=== PATIENT | male | born 1950 | race Caucasian/White ===

== ENCOUNTER 2023-06-22 20:12 | Inpatient (IN) | payer MEDICARE, BC, SELFPAY ==
[2023-06-22] VITALS (9 sets, daily range): BP systolic 95–121; BP diastolic 66–90; PULSE 101–977; RESP 22–26; TEMP 36.1–36.8; O2SAT 89–94; BMI 29.2
--- NOTE | 2023-06-22 20:38 | EKG12_ITS ---
Test Reason : Blood Pressure : / mmHG Vent. Rate : 106 BPM Atrial Rate : 106 BPM P-R Int : 152 ms QRS Dur : 092 ms QT Int : 342 ms P-R-T Axes : 031 -14 033 degrees QTc Int : 454 ms Sinus tachycardia with occasional Premature ventricular complexes Otherwise normal ECG No previous ECGs available Confirmed by JENIFFER MURILLO, CHETAN ([id number]), editorial intern SRIRAM MORENO ([id number]) on 06/24/2023 6:47:12 AM Referred By: Confirmed By:CHETAN SWIFT MD
[2023-06-22] MEDS: Ondansetron 4 MG/2 ML Vial IV (20:49)
[2023-06-22] MEDS: 0.9% Normal Saline (1000mL) 1,000 ML 150 ML IV (20:49)
[2023-06-22 20:54] LABS: Absolute Neutrophil Count 25.4 X10^3/uL (2.0-7.7); Basophil# 0.09 X10^3/uL; Basophil% 0.3 % (0-1); Hematocrit 43.2 % (40-54); Hemoglobin 13.8 g/dL (13.0-16.5); Lymphocyte % 1.4 % (19-41); Mean Corp Hgb Conc 31.9 g/dL (32-36); Mean Corpuscular Hgb 28.6 pg (27.0-32.0); Mean Corpuscular Volume 89.4 fL (80-94); Mean Platelet Vol. 11.7 fl (6.2-12.0); Monocyte# 1.47 X10^3/uL; Monocyte% 5.3 % (0-10); NRBC Flagged by Analyzer 0 % (0-5); Neutrophil # 25.36 X10^3/uL (2.7-7.7); Neutrophil % 91.7 % (47-70); POSITIVE DIFFERENTIAL YES; Platelet Count 165 K/mm3 (150-450); RBC Distribution Width CV 15.4 % (11.6-14.6); RBC Distribution Width SD 49.7 fl (35.1-43.9); Red Blood Count 4.83 M/mm3 (4.6-6.2); White Blood Count 27.7 K/mm3 (4.4-11.0)
[2023-06-22 20:58] LABS: Differential Indicated SCAN CRITERIA MET
--- NOTE | 2023-06-22 21:05 | RAD_ITS ---
STUDY: X-RAY CHEST REASON FOR EXAM: Male, 73 years old. Cough, bilateral rales and expiratory wheezing and TECHNIQUE: PA and lateral views of the chest. COMPARISON: None. FINDINGS: Poor inspiration with some bibasilar atelectasis. There is no demonstrated pleural abnormality. There is moderate cardiac enlargement. Normal mediastinum and fanta. Normal visualized pulmonary arteries. There is atherosclerotic tortuosity of the aortic arch and descending thoracic aorta. Normal visualized thoracic spine. Normal visualized ribs, clavicles, and shoulders. There is no demonstrated abnormality of the visualized soft tissue structures of the upper abdomen. RAD/Chest PA and Lateral IMPRESSION: Poor inspiration with some bibasilar atelectasis. Cardiomegaly. Electronically Signed: Roldan Kent MD at 21:44 EDT ,
[2023-06-22 21:18] LABS: ALB/GLOB Ratio 0.7 RATIO (0.9-2.4); AST(SGOT) 16 U/L (15-37); Alanine Aminotransfer ALT/SGPT 11 U/L (16-61); Albumin, Serum 3.2 g/dL (3.2-5.0); Alkaline Phosphatase 90 U/L (45-117); Anion Gap 12 (5-15); BUN 32 mg/dL (7-18); BUN/Creat Ratio 13.5 RATIO (10-20); Calcium,Total 8.9 mg/dL (8.5-10.1); Chloride 106 mmol/L (98-107); Creatinine, Serum 2.37 mg/dL (0.70-1.30); EST Glomerular Filtration Rate 29 mL/min (>60); Est Glom Filt Rate - Afr Amer 35 mL/min (>60); Estimated Creatinine Clearance 28.91 ml/min; Globulin 4.7 g/dL (2.2-4.2); Glucose 224 mg/dL (74-106); Potassium 4.1 mmol/L (3.5-5.1); Protein, Total 7.9 g/dL (6.4-8.2); Sodium Level 138 mmol/L (136-145)
--- NOTE | 2023-06-22 21:26 | ED.RN ---
DIFFICULT TO OBTAIN INFORMATION FROM PT.
[2023-06-22 21:28] LABS: Anisocytosis RARE; Differential Comment SEE COMMENTS; Macrocytosis RARE; Ovalocyte RARE; Platelet Estimate ADEQUATE (ADEQ); Platelet Morphology LARGE; Red Cell Morphology N CHROM NORMAL (NORM C&C)
[2023-06-22 21:29] LABS: Tear Drop Cell RARE
[2023-06-22 21:34] LABS: Lactic Acid 4.6 mmol/L (0.4-1.9)
--- NOTE | 2023-06-22 21:40 | EX.ED.DYSGE1 ---
HPI History of Present Illness Chief Complaint: Nausea/Vomiting Detail of Chief Complaint: Nausea vomiting, cough, shortness of breath Informant: spouse/S.O. and family Onset/Context/Timing Onset: - (Patient been ill for the past couple of days.) Context: Sudden Onset Timing: Continuous Quality: Please see HPI narrative. Location: Uncertain Current Severity: Mild Maximum Severity: Severe Worsened by: Activity Relieved by: Nothing Associated Symptoms Associated Symptoms: Limited information because of altered mental status Narrative Narrative: Patient is a 73-year-old male. He has history of iron deficiency anemia, hypertension and hypothyroidism. He is somnolent. He is confused. He is tachycardic and tachypneic as well as hypoxic. He is not on oxygen at home. He has been vomiting according to son and . 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 He also has history of abdominal aortic aneurysm according to son. The aneurysms been repaired. He has had an indwelling Maddox for some time. Nurse informing that she does not feel comfortable removing it. Upon further inspection patient has a significant defect from the urethra to the base of the penis. And there are areas are closed off. The Maddox is presently coming out of the side of his penis on the right side. Prior similar symptoms: No Recent Illness/Hospitalization: No PFSH PFSH Medical History Colon cancer Home Medications amlodipine 10 mg tablet 10 mg PO DAILY 06/22/23 [History Last Taken Unknown] ferrous sulfate 325 mg (65 mg iron) tablet 325 mg PO DAILY 06/22/23 [History Last Taken Unknown] finasteride 5 mg tablet 5 mg PO DAILY 06/22/23 [History Last Taken Unknown] levothyroxine 175 mcg tablet 175 mcg PO 06/22/23 [History Last Taken Unknown] Allergy/AdvReac Type Severity Reaction Status Date / Time No Known Allergies Allergy Verified 06/22/23 20:14 Social History Smoking Status: Former smoker ROS ROS ED Review of Systems ROS Unobtainable: due to mental status Respiratory/Chest Respiratory/Chest: Reports cough and dyspnea Neurologic Neurologic: Reports weakness EXAM Physical Exam Const Vital Signs: 06/22/23 20:14 06/22/23 20:19 06/22/23 20:13 Temperature 98.2 F Temperature Source Temporal Pulse Rate 114 H 114 H Respiratory Rate 22 H 22 H Blood Pressure 95/66 120/68 Blood Pressure Mean 75 85 Pulse Ox 89 93 Oxygen Delivery Method Room Air Nasal Cannula Nasal Cannula Oxygen Flow Rate (L/min) 2 2 06/22/23 20:52 06/22/23 21:18 06/22/23 21:43 Temperature 97 F L 98 F Temperature Source Temporal Temporal Pulse Rate 107 H 105 H Respiratory Rate 23 H 26 H Blood Pressure 119/76 104/90 H Blood Pressure Mean 90 94 Pulse Ox 90 94 93 Oxygen Delivery Method Nasal Cannula Nasal Cannula Nasal Cannula Oxygen Flow Rate (L/min) 2 2 2 06/22/23 22:32 06/22/23 22:49 06/22/23 23:04 Temperature 97.3 F L 97.1 F L Temperature Source Temporal Temporal Pulse Rate 977 H 101 H 101 H Respiratory Rate 24 H 25 H 24 H Blood Pressure 109/70 121/68 H 117/68 Blood Pressure Mean 83 85 84 Pulse Ox 92 93 92 Oxygen Delivery Method Nasal Cannula Nasal Cannula Nasal Cannula Oxygen Flow Rate (L/min) 2 2 The vital signs at 2249 are inaccurate patient patient is not on a nonrebreather mask. He is on oxygen by nasal cannula. Positive well nourished and well developed Constitutional Narrative: Patient has minimal use of accessory muscles. He has what appears to be emesis on his gunn. General Appearance ED: well developed and pallor; Negative for cyanotic, diaphoretic or NAD HEENT Reports moist mucous membranes HEENT Narrative: Ears normal. Nares patent. Posterior pharynx is normal. Eyes PERRL and EOMs intact bilaterally General Eye ED: Negative for pale conjunctiva or scleral icterus Neck no lymphadenopathy, supple and no JVD Neck Narrative: Trachea is midline. There is no stridor. Chest Wall inspection of chest normal and palpation of chest normal Resp No normal respiratory effort and No clear to auscultation bilaterally Auscultation: rales bilateral lower and wheezes expiratory wheezes and throughout Cardio regular rhythm, S1 normal heart sound, S2 normal heart sound and no murmurs Rate: tachycardic GI normal to inspection, nondistended, normoactive bowel sounds and no masses; Negative for hepatosplenomegaly GI Narrative: Ileostomy tube noted. Abdomen is tympanitic. 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 Plan is not to remove this. This should be done by urologist and with possible cystoscopy. Back/Spine Back/Spine Narrative: Unable to determine Extremity General Extremety ED: Yes edema General Extremity: edema Neuro No oriented x3 and CN's II-XII intact bilaterally Sensorium / Orientation: Negative for alert Psych Negative for mental status grossly normal Skin no rashes or lesions noted and no wounds General Skin Exam: pallor; Negative for elasticity normal or jaundice Sepsis Attestation Sepsis Alert: Yes Sepsis Attestation: Agree w/Sepsis Date exam was performed: 06/22/23 Time exam was performed: 21:45 Sepsis Organ Dysfunction Criteria Present: Lactic Acid > 2 mmol/L and New/Unexplained change in mental status Fluid Resuscitation Fluid resuscitation indicated?: Yes Fluid Resuscitation ordered: 30 ml/kg fluid bolus ordered MDM MDM MDM Narrative Medical decision making narrative: With history of vomiting abnormal respiratory sounds wheezing and hypoxia concern patient aspirated. Will obtain chest x-ray to determine if there is an infiltrate. Patient has odor of urine. There is concern he has a urinary tract infection as well. Sepsis workup was undertaken. EKG to rule out any acute ischemic changes. Appropriate blood work to assess for endorgan dysfunction. Spoke to and son since patient is unable to give adequate history. History & Record Review Discussion w/independent historian: Family and Significant other Lab Data Attestation: I reviewed the patient's lab results. Lab results narrative: White count is 27.7 thousand. Patient does have a shift. There is no bandemia. H&H is normal. Competence of metabolic panel is remarkable for a CO2 of 20 with an anion gap of 12. BUN and creatinine are 32 and 2.37. Estimated GFR 29. Glucose is elevated 224. Transaminases are normal. Lactate is 4.6. Patient will require a 30 cc/kg bolus. Labs: Laboratory Results - last 24 hr 06/22/23 06/22/23 06/22/23 20:25 20:45 22:20 WBC 27.7 H RBC 4.83 Hgb 13.8 Hct 43.2 MCV 89.4 MCH 28.6 MCHC 31.9 L RDW Std Deviation 49.7 H RDW Coeff of [place] 15.4 H Plt Count 165 MPV 11.7 Immature Gran % (Auto) 1.300 H Neut % (Auto) 91.7 H Lymph % (Auto) 1.4 L [place] % (Auto) 5.3 Eos % (Auto) 0.0 Baso % (Auto) 0.3 Absolute Neuts (auto) 25.4 H Absolute Lymphs (auto) 0.40 L Nucleated RBC % 0 Differential Comment SEE COMMENTS Platelet Estimate ADEQUATE Plt Morphology Comment LARGE RBC Morphology N CHROM Anisocytosis RARE Macrocytosis RARE Tear Drop Cells RARE Ovalocytes RARE PT 15.3 H INR 1.2 APTT 30.0 Sodium 138 Potassium 4.1 Chloride 106 Carbon Dioxide 20.0 L Anion Gap 12 BUN 32 H Creatinine 2.37 H Estim Creat Clear Calc 28.91 Est GFR (MDRD) Af Amer 35 L Est GFR (MDRD) Non-Af 29 L BUN/Creatinine Ratio 13.5 Glucose 224 H Lactic Acid 4.6 H* Calcium 8.9 Total Bilirubin 0.60 AST 16 ALT 11 L Alkaline Phosphatase 90 Total Protein 7.9 Albumin 3.2 Globulin 4.7 H Albumin/Globulin Ratio 0.7 L Urine Color Yellow Urine Clarity Cloudy Urine pH 9.0 Ur Specific [place] 1.015 Urine Protein 30 H Urine Glucose (UA) Normal Urine Ketones Negative Urine Occult Blood 250 H Urine Nitrite Negative Urine Bilirubin Negative Urine Urobilinogen Normal Ur Leukocyte Esterase 500 H Urine RBC 10-25 SEEN Urine WBC 10-25 SEEN Ur Squamous Epith Cells 0 SEEN Triple Phos Crystals 1+ Amorphous Sediment 1+ Urine Bacteria 4+ Urine Mucus 0 SEEN ABG Data Attestation: I personally reviewed and interpreted this ABG as follows: Interpretation: ABG was obtained to assess for hypercapnia since he is somnolent. ABG results: pH 7.33, CO2 39.6, pO2 62.9, bicarb 20.9 with a base excess of -5. This reveals a mild metabolic acidosis with increased AA gradient. There is no evidence of hypercapnia. Suspect patient's altered mental status is due to infectious encephalopathy. Radiography Chest X-Ray - ED: 1 View (Limited study since it is portable slightly rotated and poor inspiratory volume. He does have evidence of what appears to be atelectasis. There is no obvious infiltrate or effusion. Heart size is borderline to slightly enlarged. Cardiac silhouette normal. [place] is unremarkable. Osseous structu) and Read by ED Physician Diagnostic Testing: Clinical Impression(s) from Imaging Studies Chest X-Ray 06/22/23 21:05 IMPRESSION: Poor inspiration with some bibasilar atelectasis. Cardiomegaly. Electronically Signed: Roldan Kent MD at 21:44 EDT Reading Location ID and State: [facility] / [place] Tel , Service support , Rhythm Strip Rhythm Strip: Sinus Tach Rate: 112 Ectopy: PVC(s) (Few to occasional) EKG Initial EKG: Attestation: I personally reviewed and interpreted this EKG as follows: Interpretation: Sinus Tachycardia (Rate is 106. There are premature ventricular beats noted. There were premature Fichter bleach noted on the monitor as well. [place] interval is 152 ms. Cures duration 92 ms. QT duration 242 ms. [place] is normal. There is no acute ischemic changes noted.) Management Discussion w/another healthcare provider: Hospitalist Treatment and Re-Evaluation :: Patient was treated with Zosyn which would cover aspiration as well as complicated nosocomial type urologic infection. Urine is consistent with infection. Will contact hospitalist for admission. Critical Care Time Critical Care Time: Yes Critical care time (excluding procedures): 30-74 minutes (34), Including time spent: (History, physical, documentation, discussion with and son, independent interpretation of laboratory results and treatment for sepsis), Discussing w/Patient &/or Family/Network Program Manager, Discussing w/Consultants (Hospitalist Dr. Lara) and Arranging Admission or Transfer Discharge Plan Triage Chief Complaint: Nausea/Vomiting ED Provider: Garfield Chacon Dx/Rx/DC Orders Clinical Impression: FIOR (acute kidney injury), Aspiration into respiratory tract, Severe sepsis with acute organ dysfunction, Complicated urinary tract infection, Acute hypoxemic respiratory failure, Encephalopathy due to infection, Acidosis, lactic Prescriptions: No Action levothyroxine 175 mcg tablet 175 mcg PO amlodipine 10 mg tablet 10 mg PO DAILY ferrous sulfate 325 mg (65 mg iron) tablet 325 mg PO DAILY finasteride 5 mg tablet 5 mg PO DAILY Primary Care Provider: Jenae Franco Referrals: Jenae Franco MD [Primary Care Provider] - Disposition Disposition: Acute Care Hospital [facility]
[2023-06-22 21:58] LABS: Mucous, Urine 0 SEEN /hpf (<or=2+); Squamous Epithelial Cells - UA 0 SEEN /hpf (0-5)
[2023-06-22] MEDS: 0.9% Normal Saline (1000mL) 1,000 ML 999 ML IV ×3 (21:58→22:37)
[2023-06-22 21:59] LABS: Color, Urine Yellow (Yellow); Glucose, Dipstick Normal (Normal); Ketone-Dipstick Negative (Negative); Leukocyte Esterase-Dipstick 500 /ul (Negative); Nitrite-Dipstick Negative (Negative); Occult Blood-Urine 250 /ul (Negative); Protein-Dipstick 30 mg/dl (Negative); Specific Gravity, Urine 1.015 (1.002-1.030); Urine Bilirubin Dipstick Negative (Negative); Urine Clarity Cloudy (Clear); Urine Urobilinogen Normal (Normal)
[2023-06-22 22:13] LABS: Amorphous Sediment 1+; Bacteria 4+ /hpf (None Seen); Red Blood Cells-Urine 10-25 SEEN /hpf (0-5); Triple Phosphate Crystals Ur 1+ /hpf (<or=1+); White Blood Cells 10-25 SEEN /hpf (0-5)
[2023-06-22] MEDS: Piperacil/Tazobactam 4.5 GM in 0.9% Normal Saline (100mL MB+) 100 ML IV (22:23)
[2023-06-22 22:49] LABS: International Normalized Ratio 1.2; Prothrombin Time (Protime)PT. 15.3 SECONDS (11.7-14.9)
[2023-06-22 23:32] LABS: Allen Test Positive; Base Excess -5 mmol/L (-2 to +2); Bicarbonate 20.9 mmol/L (22-26); Blood Gas Specimen Type ART; Mode Not entered; O2 Delivery Device Cannula; PO2 63 mmHG (75-100); SITE L Brach; SO2 90 % (95-99); Total Carbon Dioxide 22 mmol/L; pCO2 39.6 mmHg (35-45); pH 7.33 (7.35-7.45)
--- NOTE | 2023-06-22 23:47 | PCM.HP.STD ---
[facility] - General General Date of Admission: 06/23/23 Date of Service: 06/22/23 Chief Complaint: Nausea, Vomiting, SOB and AMS. HPI Narrative EMELIA NICOLE, is a 73 M with a past medical history of essential hypertension, hypothyroidism, overweight; with BMI of 29.3 this admission, history of former tobacco abuse, history of abdominal aortic aneurysm; s/p repair, BPH, iron deficiency anemia and history of colon cancer; status post ileostomy and radiation therapy with chronic indwelling Maddox with subsequent significant defect at the base of the Right side of his penis who presents to [facility] after his family noticed nausea, vomiting, shortness of breath and altered mental status. Mr. Nicole is not a fully reliable historian at this time as he is encephalopathic and lethargic so information was gathered from chart, medical staff and computer. According to the records his acute symptoms began approximately 2 to 3 days prior to admission with persistent vomiting and confusion. Details regarding fever, chills or diarrhea are not available at this time. Patient is still apparently a FULL CODE. In the ER he was noted to have a urinalysis grossly positive for acute cystitis; with microscopic hematuria in addition to significant lesion at the base of his penis due to chronic indwelling Maddox with corresponding severe leukocytosis of 27.7 and lactic acidosis of 4.6 mmol/L present on admission consistent with suspected sepsis complicated by clinical evidence of aspiration pneumonia with metabolic acidosis and acute hypoxic respiratory insufficiency compounded by LLE Cellulitis and laboratory evidence of suspected acute renal failure with serum creatinine of 2.37 mg/dL and BUN of 32 mg/dL present on admission (with no previous baseline labs available for comparison) with apparent Maddox trauma damaging the shaft of the penis and creating a wound at the Right side of the base of the penis all suspected to be combining to induce severe metabolic encephalopathy with ER physician asked to order a CT scan of the abdomen and pelvis to further assess for other acute pathologic changes in this patient with limited ability to communicate and he was then admitted to the ICU for treatment under the sepsis protocol for a stay that is expected to extend beyond 48 hours. [facility] Medical History Colon cancer Home Medications amlodipine 10 mg tablet 10 mg PO DAILY 06/22/23 [History Last Taken Unknown] ferrous sulfate 325 mg (65 mg iron) tablet 325 mg PO DAILY 06/22/23 [History Last Taken Unknown] finasteride 5 mg tablet 5 mg PO DAILY 06/22/23 [History Last Taken Unknown] levothyroxine 175 mcg tablet 175 mcg PO 06/22/23 [History Last Taken Unknown] Allergy/AdvReac Type Severity Reaction Status Date / Time No Known Allergies Allergy Verified 06/22/23 20:14 Social History Smoking Status: Former smoker ROS ROS Narrative A full review of systems was not possible due to this patient's severe encephalopathy and acute critical illness. Review of Systems ROS Unobtainable: due to encephalopathy Vital Signs Vital Signs Vital Signs: 06/22/23 20:14 06/22/23 20:19 06/22/23 20:13 Temperature 98.2 F Temperature Source Temporal Pulse Rate 114 H 114 H Respiratory Rate 22 H 22 H Blood Pressure 95/66 120/68 Blood Pressure Mean 75 85 Pulse Ox 89 93 Oxygen Delivery Method Room Air Nasal Cannula Nasal Cannula Oxygen Flow Rate (L/min) 2 2 06/22/23 20:52 06/22/23 21:18 06/22/23 21:43 Temperature 97 F L 98 F Temperature Source Temporal Temporal Pulse Rate 107 H 105 H Respiratory Rate 23 H 26 H Blood Pressure 119/76 104/90 H Blood Pressure Mean 90 94 Pulse Ox 90 94 93 Oxygen Delivery Method Nasal Cannula Nasal Cannula Nasal Cannula Oxygen Flow Rate (L/min) 2 2 2 06/22/23 22:32 06/22/23 22:49 06/22/23 23:04 Temperature 97.3 F L 97.1 F L Temperature Source Temporal Temporal Pulse Rate 977 H 101 H 101 H Respiratory Rate 24 H 25 H 24 H Blood Pressure 109/70 121/68 H 117/68 Blood Pressure Mean 83 85 84 Pulse Ox 92 93 92 Oxygen Delivery Method Nasal Cannula Nasal Cannula Nasal Cannula Oxygen Flow Rate (L/min) 2 2 Weight Weight: 187 lb 2.759 oz Body Mass Index (BMI) 29.2 Physical Exam Const Constitutional Narrative: Patient is lethargic but arousable on nonrebreather mask with minimal use of accessory muscles and residual emesis present on his gunn. Orientation / Consciousness: confused and lethargic HEENT normocephalic, head/scalp atraumatic, hearing grossly normal bilaterally and moist oral mucous membranes Eyes PERRL Neck no lymphadenopathy and supple Resp Resp Narrative: Diminished throughout with coarse rhonchi and wheezing due to suspected recent aspiration. Cardio regular rate and regular rhythm Cardio Narrative: Tachycardia noted. GI normal to inspection, nondistended, normoactive bowel sounds, soft to palpation, non-tender and non-distended GI Narrative: Ileostomy noted. Abdomen is tympanitic. Extremity Extremity Narrative: Left lower extremity has marked edema and erythema from the knee distally. Skin Skin Narrative: Patient's Maddox catheter appears to have dissected down the anterior surface of his penis all the way to the base. Patient also has evidence of tinea cruris plus left lower extremity has marked edema and erythema from the knee distally. Neuro CN's II-XII intact bilaterally, moves all extremities and no focal motor deficits Sensorium / Orientation: awake, alert, oriented to person and oriented to place Speech: speech normal Psych affect normal Results Medical Records Data Attestation: I reviewed the patient's medical records Lab / Micro Data Attestation: I reviewed the patient's lab results. 06/22/23 20:25 06/22/23 20:25 Labs: Laboratory Results - last 24 hr 06/22/23 20:25: WBC 27.7 H, RBC 4.83, Hgb 13.8, Hct 43.2, MCV 89.4, MCH 28.6, MCHC 31.9 L, RDW Std Deviation 49.7 H, RDW Coeff of Yanira 15.4 H, Plt Count 165, MPV 11.7, Immature Gran % (Auto) 1.300 H, Neut % (Auto) 91.7 H, Lymph % (Auto) 1.4 L, Becker % (Auto) 5.3, Eos % (Auto) 0.0, Baso % (Auto) 0.3, Absolute Neuts (auto) 25.4 H, Absolute Lymphs (auto) 0.40 L, Nucleated RBC % 0, Differential Comment SEE COMMENTS, Platelet Estimate ADEQUATE, Plt Morphology Comment LARGE, RBC Morphology N CHROM, Anisocytosis RARE, Macrocytosis RARE, Tear Drop Cells RARE, Ovalocytes RARE, Sodium 138, Potassium 4.1, Chloride 106, Carbon Dioxide 20.0 L, Anion Gap 12, BUN 32 H, Creatinine 2.37 H, Estim Creat Clear Calc 28.91, Est GFR (MDRD) Af Amer 35 L, Est GFR (MDRD) Non-Af 29 L, BUN/Creatinine Ratio 13.5, Glucose 224 H, Calcium 8.9, Total Bilirubin 0.60, AST 16, ALT 11 L, Alkaline Phosphatase 90, Total Protein 7.9, Albumin 3.2, Globulin 4.7 H, Albumin/Globulin Ratio 0.7 L, Urine Color Yellow, Urine Clarity Cloudy, Urine pH 9.0, Ur Specific Welda 1.015, Urine Protein 30 H, Urine Glucose (UA) Normal, Urine Ketones Negative, Urine Occult Blood 250 H, Urine Nitrite Negative, Urine Bilirubin Negative, Urine Urobilinogen Normal, Ur Leukocyte Esterase 500 H, Urine RBC 10-25 SEEN, Urine WBC 10-25 SEEN, Ur Squamous Epith Cells 0 SEEN, Triple Phos Crystals 1+, Amorphous Sediment 1+, Urine Bacteria 4+, Urine Mucus 0 SEEN 06/22/23 20:45: Lactic Acid 4.6 H* 06/22/23 22:20: PT 15.3 H, INR 1.2, APTT 30.0 Micro: Microbiology 06/22/23 20:55 Mucosa - Nasopharyngeal SARS-CoV-2, Influenza & RSV (PCR) - Final ABG Data ABG results: ABG 06/22/23 23:28 Specimen Type ART Sample Site L Brach pH 7.33 L Bicarbonate Actual 20.9 L Total CO2 22 Base Excess -5 L O2 Saturation 90 L O2 % 2.0 ABG pCO2 39.6 ABG pO2 63 L Mo Test Positive O2 Delivery Device Cannula Vent Mode Not entered Rhythm Strip Rhythm Strip: Sinus Tach Rate: 112 Ectopy: PVC(s) (Few to occasional) Imaging Radiology Impression Chest X-Ray 06/22/23 21:05 IMPRESSION: Poor inspiration with some bibasilar atelectasis. Cardiomegaly. Electronically Signed: Roldan Kent MD at 21:44 EDT , [facility] Imaging Services [address] [place] [id number] Abdomen/Pelvis without Cont MR#: [id number] Acct: [id number] Name: ALEXEMELIA Rep #: [id number] : 1950 M 73 From: [place] Jalloh MD PCP: Jenae Franco MD Status: ADM IN Study: Abdomen/Pelvis without Cont Date of Exam: 06/23/23 Exam# [id number] Ordering Dr: Garfield Chacon MD EXAM: CT Abdomen And Pelvis W/O Contrast Injection HISTORY: Sepsis, abdominal pain TECHNIQUE: Routine protocol CT abdomen and pelvis. IV Contrast: None.. Oral contrast: None. RADIATION DOSAGE (If Supplied By Facility): CTDIvol = ( 10.30 ) mGy, DLP = ( 932.75 ) mGycm Individualized dose optimization techniques were used for this CT. COMPARISON: None. LIMITATIONS: None. FINDINGS: LOWER CHEST: Patchy groundglass opacities in the left lower lobe. Dependent atelectasis in the right lower lobe. Minimal bilateral pleural effusions. Coronary artery calcifications. LIVER: Grossly unremarkable. GALLBLADDER AND BILIARY TREE: Multiple gallstones layering in the gallbladder, with a separate stone in the gallbladder neck. No definite inflammatory changes. PANCREAS: Grossly unremarkable. SPLEEN: Relatively small size with lobular contour and peripheral calcifications. ADRENAL GLANDS: Grossly unremarkable. KIDNEYS AND URETERS: Right kidney with moderate hydronephrosis and dilated ureter to the bladder. No definite calculi identified. Left kidney atrophic without hydronephrosis. PERITONEUM: No free air. No free fluid. BOWEL: Colostomy left midabdomen. Mildly dilated small bowel. Distal small bowel is decreased caliber. Transition is not clearly identified but may be in the right lower abdomen. There is soft tissue thickening in the region of the rectum with presacral thickening presumed postsurgical changes. APPENDIX: Not identified. VESSELS: Postsurgical changes with aortobiiliac graft. REPRODUCTIVE ORGANS: Grossly unremarkable URINARY BLADDER: Moderately distended. Maddox catheter in place. Mild bladder wall thickening. Bladder diverticulum posteriorly on the left. ABDOMINAL WALL: Subcutaneous edema and body wall especially along the left lower abdominal wall/flank area more marked diffuse edema left lower extremity extending to the proximal thigh with associated skin thickening. No definite localized collection. No air in the soft tissues. Prominent inguinal lymph nodes bilaterally. Also surgical clips in the inguinal regions. BONES: No acute abnormalities. Bilateral pars defects at L5 with grade 1 spondylolisthesis L5-S1 and degenerative changes CT/Abdomen/Pelvis without Cont IMPRESSION: 1. Dilated small bowel. Pattern suggests at least partial distal small bowel obstruction, versus enteritis or ileus. 2. Cholelithiasis including a stone in the gallbladder neck. Ultrasound correlation may be helpful if clinically indicated. 3. Moderate right hydroureteronephrosis with no definite obstructing ureteral calculus identified. 4. Urinary bladder wall thickening may be consistent with acute cystitis. Bladder distended despite presence of the Maddox catheter. Atrophic left kidney without hydronephrosis. 5. Subcutaneous edema left abdominal wall/flank with more diffuse edema extending into the left lower extremity. Question cellulitis. 6. Left lower lobe consolidation suspected pneumonia. Minimal bilateral pleural effusions. 7. Aortobiiliac graft. 8. Soft tissue thickening presacral presumed postsurgical. Electronically Signed: [place] Jalloh MD at 2:27 EDT , CC: Jenae Franco MD; Dr. Garfield Chacon MD ~ [place]: Signed Assessment & Plan Assessment/Plan (1) Severe sepsis with acute organ dysfunction: (2) Complicated urinary tract infection: (3) Aspiration into respiratory tract: QUALIFIERS: Encounter type: initial encounter Qualified Code(s): T17.908A - Unspecified foreign body in respiratory tract, part unspecified causing other injury, initial encounter (4) Acute hypoxemic respiratory failure: (5) Acidosis, lactic: (6) FIOR (acute kidney injury): (7) Encephalopathy due to infection: (8) Cholelithiasis: QUALIFIERS: Biliary obstruction: without biliary obstruction Cholecystitis presence: without cholecystitis Cholelithiasis location: gallbladder Qualified Code(s): K80.20 - Calculus of gallbladder without cholecystitis without obstruction (9) Enteritis: PLAN: Plan 1. Sepsis with urinalysis grossly positive for acute cystitis; with microscopic hematuria in addition to significant lesion as his Maddox has apparently dissected from the urinary meatus to the base of his penis due to chronic indwelling Maddox that is poorly managed with corresponding severe leukocytosis of 27.7 and lactic acidosis of 4.6 mmol/L present on admission with CT also positive for evidence of cholelithiasis - Admit to ICU for treatment under the sepsis protocol and placed on contact precautions. Continue IV Zosyn and add IV Zyvox to cover MRSA pathogens with patient's skin lesions at the base of his penis and await culture and sensitivity data. Checked CT scan of the abdomen and pelvis to evaluate for possible urinary obstruction and/or abscess formation and now we will check gallbladder ultrasound as per radiologist's recommendation. Second lactate has dropped to 2.7 mmol/L after initial round of treatment. Wind Site Manager will be consulted to see this patient on-rounds in the AM with help appreciated in advance. Finally, we will consult the urologist on-call to evaluate this patient in the a.m. regarding his chronic wound due to apparent Maddox dissecting from the urinary meatus down the inferior surface of the penis to the base for further recommendations with help appreciated in advance. 2. Aspiration pneumonia with metabolic acidosis and acute hypoxic respiratory insufficiency with CT suggestive of enteritis, ileus or possible PSBO complicating #1 - Resume broad-spectrum antibiotics to cover nosocomial pathogens outlined #1. Continue supplemental oxygen and recheck ABG to evaluate for possible improvement. Check KUB in the AM to evaluate for possible worsening PSBO. 3. Laboratory evidence of suspected acute renal failure with serum creatinine of 2.37 mg/dL and BUN of 32 mg/dL present on admission (with no previous baseline labs available for comparison) compounding #1 & #2 in the setting of known BPH - Give vigorous volume resuscitation and recheck BMP in the a.m. to assess response to above treatment. 4. Significant left lower extremity erythema and edema suspicious for cellulitis with possible DVT adding to the pathology of #1 - #3 - Check D-dimer and left lower extremity Doppler to confirm suspicion plus start empiric IV Heparin via DVT protocol. Patient on broad-spectrum antibiotics for #1 and #2. 5. Severe metabolic encephalopathy arising from #1 to #4 - Continue supportive care and monitor for potential improvement. Minimize MICROSTRATEGY ARCHITECT DEVELOPER-active medications. Check TSH, B12, folate and urine drug screen to evaluate for potential reversible causes of confusion. 6. History of colon cancer; status post ileostomy and radiation therapy with chronic indwelling Maddox with subsequent significant defect at the base of the Right side of his penis present on admission - Noted. 7. History of abdominal aortic aneurysm; s/p repair - Noted. CT pending. 8. Essential hypertension - Hold scheduled antihypertensives in light of multiple infections outlined above. 9. Hypothyroidism - Continue Synthroid IV and check TSH this admission. 10. Overweight; with BMI of 29.3 this admission - Weight loss will be recommended once patient's mental status improves. 11. History of former tobacco abuse - Noted. 12. Iron deficiency anemia - Stable. 13. DVT prophylaxis - Patient started on IV Heparin or #4. Total time: Approximately 95 minutes. Sepsis Attestation Sepsis Alert: Yes Sepsis Attestation: Agree w/Sepsis Date exam was performed: 06/23/23 Time exam was performed: 00:15 Possible Source of Sepsis: Pulmonary, Genitourinary and Skin/soft tissue Sepsis Organ Dysfunction Criteria Present: Creatinine > 2.0 mg/dL, Lactic Acid > 2 mmol/L and New/Unexplained change in mental status Fluid Resuscitation Fluid resuscitation indicated?: Yes Fluid Resuscitation ordered: 30 ml/kg fluid bolus ordered Amount of fluid ordered: 3 Sepsis Note Date exam was performed: 06/23/23 Time exam was performed: 04:15 Sepsis Attestation: Sepsis re-evaluation was performed Response to fluids: Fluid responsive hypotension Charges/Coding Visit Charges Inpatient E&M: 23664 Init Hosp L3
[2023-06-22 23:53] LABS: Reflex Lactate? Y
[2023-06-23] VITALS (27 sets, daily range): BP systolic 81–153; BP diastolic 49–83; PULSE 75–107; RESP 16–29; TEMP 36.3–37.2; O2SAT 88–97; BMI 27.6
[2023-06-23 01:18] LABS: Lactic Acid 3.4 mmol/L (0.4-1.9)
[2023-06-23] MEDS: Linezolid 600 MG 600 MG/300 ML BAG 200 MG IV (01:20)
[2023-06-23 02:36] LABS: Vitamin B12 381 pg/mL (211-911)
[2023-06-23 02:42] LABS: Amphetamine Urine VISTA NEGATIVE (<1000 ng/mL); Barbiturate Urine VISTA NEGATIVE (< 200 ng/mL); Benzodiazepine Urine VISTA NEGATIVE (< 200 ng/mL); Cocaine Urine VISTA NEGATIVE (< 300 ng/mL); Ecstacy Urine VISTA NEGATIVE (< 500 ng/mL); Methadone Urine VISTA NEGATIVE (< 300 ng/mL); PCP Urine VISTA NEGATIVE (< 25 ng/mL); THC Urine VISTA NEGATIVE (< 50 ng/mL); Vista UDS pH Range 7
[2023-06-23 02:45] LABS: Thyroid Stim Hormone (TSH) 7.75 uIU/mL (0.358-3.74); Troponin-I HS 18 pg/mL (3.0-78.0)
[2023-06-23 03:01] LABS: Lactic Acid 2.7 mmol/L (0.4-1.9)
[2023-06-23 03:12] LABS: Reflex Lactate? N
[2023-06-23 03:13] LABS: Reflex Lactate? N
--- NOTE | 2023-06-23 03:42 | US_ITS ---
STUDY: ABDOMINAL ULTRASOUND - RIGHT UPPER QUADRANT REASON FOR VISIT: Male, 73 years old Cholelithiasis evident on CT with rad rec U/S. TECHNIQUE: Ultrasound evaluation of the right upper quadrant was performed with real-time and static soares-scale imaging. TECHNICAL QUALITY: Adequate. COMPARISON: None. FINDINGS: Liver: The liver is enlarged and measures 21.2 cm. There is normal echogenicity of the liver. The bile ducts are within normal limits. There is hepatic color flow. The direction of portal flow is hepatopetal. There is no demonstrated mass lesion. Gallbladder: Normal distended gallbladder. The gallbladder wall measures 2.6 mm. There is a negative sonographic Felipe''s sign. There is no pericholecystic fluid. There are multiple echogenic structures within the gallbladder, consistent with multiple gallstones. Common Bile Duct (C.B.D.): The common bile duct measures 4.4 mm. Pancreas: There is nonvisualization of the pancreas. Due to overlying bowel gas Right Kidney: Normal size of the right kidney. The right kidney measures 12.8 cm x 6.4 cm x 5.9 cm. Normal renal cortex. The right cortex measures 1.4 cm. There is no demonstrated renal mass or cyst. There is mild hydronephrosis of the right kidney. US/Gallbladder IMPRESSION: Hepatomegaly. Multiple gallstones. Mild right hydronephrosis. Electronically Signed: Nathaniel Araya MD at 15:44 EDT ,
[2023-06-23 05:22] LABS: D-Dimer Quantitative (DVT/PE) 7.81 FEU/ug/m (0.27-0.49)
[2023-06-23] MEDS: 0.9% Normal Saline (1000mL) 1,000 ML 150 ML IV (05:45)
[2023-06-23] MEDS: Piperacil/Tazobactam 3.375 GM in 0.9% Normal Saline (50mL MB+) 50 ML IV ×3 (05:47→20:11)
[2023-06-23] MEDS: Menthol/Lanolin/Calamine/Znox 113 GM Tube 1 APPLIC TOPICAL ×2 (05:48→20:11)
[2023-06-23] MEDS: Nystatin Powder 15gm Bottle 1 APPLIC TOPICAL ×2 (05:49→20:11)
[2023-06-23 05:53] LABS: International Normalized Ratio 1.2; Partial Thromboplast Time 37.2 Seconds (24.1-36.2); Prothrombin Time (Protime)PT. 15.3 SECONDS (11.7-14.9)
--- NOTE | 2023-06-23 05:55 | RAD_ITS ---
INDICATION: Aspiration pneumonia EXAMINATION/TECHNIQUE: X-RAY - XR Chest 1 View AP portable. 4:13 AM COMPARISON: 06/22/2023 FINDINGS: LINES/DEVICES: None. LUNGS: Patchy opacity in the left lung base similar to increased compared to prior. Mildly elevated left hemidiaphragm unchanged. No pneumothorax. MEDIASTINUM: Aorta is atherosclerotic and tortuous. CARDIAC SILHOUETTE: Not enlarged. BONES AND SOFT TISSUES: No acute abnormalities. RAD/Chest 1 View (Portable) IMPRESSION: Increased left basilar atelectasis or infiltrate. Aspiration pneumonia not excluded. Electronically Signed: [place] Jalloh MD at 5:18 EDT ,
--- NOTE | 2023-06-23 05:55 | RAD_ITS ---
INDICATION: Suspected enteritis vs PSBO on CT. EXAMINATION/TECHNIQUE: X-RAY - XR Abdomen 1 View portable. 4:19 AM COMPARISON: CT abdomen and pelvis earlier same day FINDINGS: Supine view. Moderately dilated small bowel. There is stool and air in the colon. Sensitivity for free air limited on supine view. Surgical clips in the midabdomen. Lung bases are not well assessed. RAD/Abdomen Single View (Portable) IMPRESSION: Dilated small bowel not significantly changed compared to earlier CT. Electronically Signed: France Jalloh MD at 5:24 EDT ,
[2023-06-23 06:08] LABS: T4 Free Direct 0.81 ng/dL (0.76-1.46)
[2023-06-23] MEDS: HEPARIN/D5w 25,000 UNITS 25,000 UNITS/250 ML IV.SOLN. 11 UNITS CONT INF (06:15)
[2023-06-23 06:20] LABS: Absolute Lymphocyte Count 0.36 X10^3/uL (0.83-4.51); Absolute Neutrophil Count 16.2 X10^3/uL (2.0-7.7); Basophil# 0.04 X10^3/uL; Basophil% 0.2 % (0-1); Hematocrit 33.7 % (40-54); Lymphocyte # 0.36 X10^3/ul (0.83-4.51); Lymphocyte % 2.1 % (19-41); Mean Corp Hgb Conc 29.7 g/dL (32-36); Mean Corpuscular Hgb 28.7 pg (27.0-32.0); Mean Corpuscular Volume 96.6 fL (80-94); Mean Platelet Vol. 11.6 fl (6.2-12.0); Monocyte% 1.8 % (0-10); NRBC Flagged by Analyzer 0 % (0-5); Neutrophil # 16.24 X10^3/uL (2.7-7.7); Neutrophil % 95.2 % (47-70); POSITIVE DIFFERENTIAL YES; Platelet Count 125 K/mm3 (150-450); RBC Distribution Width SD 56.4 fl (35.1-43.9); Red Blood Count 3.49 M/mm3 (4.6-6.2); White Blood Count 17.1 K/mm3 (4.4-11.0)
[2023-06-23 06:51] LABS: ALB/GLOB Ratio 0.7 RATIO (0.9-2.4); AST(SGOT) 12 U/L (15-37); Alanine Aminotransfer ALT/SGPT 8 U/L (16-61); Alkaline Phosphatase 52 U/L (45-117); Anion Gap 13 (5-15); BUN 25 mg/dL (7-18); BUN/Creat Ratio 11.8 RATIO (10-20); Calcium,Total 6.2 mg/dL (8.5-10.1); Chloride 103 mmol/L (98-107); Creatinine, Serum 2.11 mg/dL (0.70-1.30); EST Glomerular Filtration Rate 33 mL/min (>60); Est Glom Filt Rate - Afr Amer 40 mL/min (>60); Estimated Creatinine Clearance 31.64 ml/min; Glucose 604 mg/dL (74-106); Magnesium 1.3 mg/dL (1.6-2.6); Potassium 3.3 mmol/L (3.5-5.1); Sodium Level 132 mmol/L (136-145)
[2023-06-23 07:12] LABS: Bedside Glucose 208 mg/dL (74-106)
--- NOTE | 2023-06-23 07:54 | EX.PCM.CONCC ---
Assessment & Plan Assessment/Plan (1) Severe sepsis with acute organ dysfunction: (2) Complicated urinary tract infection: (3) Encephalopathy due to infection: PLAN: Plan RECOMMENDATIONS: 1. Continue empiric antibiotics pending cultures 2. Await urology recommendations 3. Monitor for ongoing emesis 4. Wean oxygen as tolerated IMPRESSIONS: 1. Sepsis secondary to UTI Patient was significant penile defect and findings suggestive of UTI. Patient would be at high risk for acute cystitis given urologic defects. Patient is currently on empiric antibiotics. Will have to monitor patient to see if he requires pressor agents. Lower clinical suspicion of acute aspiration as an etiology, but this could be possible. CT of the abdomen does show evidence of enteritis, but CT scan is more suggestive of atelectasis. 2. Acute left lower extremity DVT Patient should be placed on a heparin drip for now. Hold off on Lovenox given renal dysfunction and possible need for urologic intervention. Patient may have an element of PE leading to current hypoxia and atelectasis. 3. Possible acute kidney injury Patient presented with an elevated creatinine of 2.37, but BUN is suggestive of intrinsic dysfunction. Patient has received significant volume resuscitation. Will continue to monitor. Obtain old records for comparison. 4. History of colon cancer/AAA/hypothyroidism/debility Complicates care, management and recovery. Patient will be seen by PT/OT to work on ambulation and strength training. Patient may need dietitian advice for weight loss once mental status improves. HPI Consult Data Date of Consult: 06/23/23 HPI Narrative HPI Narrative: EMELIA JOHNSON is a 73 M, with past medical history listed below, who presents to [facility] on 06/22/2023 secondary to altered mental status, tachycardia and tachypnea. Patient reportedly had been vomiting. Patient reportedly has an indwelling Maddox chronically secondary to radiation therapy for colon cancer. In the ER, patient was afebrile, but tachycardic at 114 bpm with a lower blood pressure of 95/66. Patient was initially 89% on room air, but responded to 2 L nasal cannula. Lab work shows a white blood cell count of 27.7, hemoglobin of 13.8 and platelets of 165. Coagulation studies were within normal limits. Chemistry showed a bicarbonate of 20, creatinine of 2.37 and lactate of 4.6. Patient did have a UA suggestive of a urinary tract infection. Blood gas showed a mild acute metabolic acidosis with increased AA gradient. Chest x-ray showed poor inspiration with bilateral atelectasis, left greater than right on my interpretation. Patient was given sepsis fluids, antibiotics and admitted to the intensive care unit. Since being in the intensive care unit, patient has had his Maddox changed. Patient did have significant findings of poor Maddox care per nursing. Patient also had his gunn shaved at his request. Patient did not require any pressors. On my evaluation, patient was able to be woken up, but is not a very good historian. Patient had reported that he has not felt well for a week. Patient has reported right lower extremity swelling for over a week and states that he believes he had an ultrasound earlier in the week that was negative. Unable to obtain review of systems. [facility] Medical History Colon cancer Home Medications amlodipine 10 mg tablet 10 mg PO DAILY 06/22/23 [History Last Taken Unknown] ferrous sulfate 325 mg (65 mg iron) tablet 325 mg PO DAILY 06/22/23 [History Last Taken Unknown] finasteride 5 mg tablet 5 mg PO DAILY 06/22/23 [History Last Taken Unknown] levothyroxine 175 mcg tablet 175 mcg PO 06/22/23 [History Last Taken Unknown] Allergy/AdvReac Type Severity Reaction Status Date / Time No Known Allergies Allergy Verified 06/22/23 20:14 Social History Smoking Status: Former smoker ROS ROS Narrative Unable to obtain secondary to be a poor historian Review of Systems ROS Unobtainable: due to mental status Physical Exam Const Constitutional Narrative: RASS -2 and quickly goes to sleep. Orientation / Consciousness: confused and lethargic HEENT normocephalic and head/scalp atraumatic HEENT Narrative: Dry mucous membranes Eyes PERRL Neck no lymphadenopathy and supple Resp Auscultation: rales left base and diminished lung sounds Cardio regular rate, regular rhythm, S1 normal heart sound, S2 normal heart sound, no murmurs, no rub and no gallops GI normal to inspection, nondistended, normoactive bowel sounds, soft to palpation and non-tender GI Narrative: Ileostomy noted. 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 06/23/23 01:30 06/23/23 06:59 Labs: Laboratory Results - last 24 hr 06/22/23 00:27: Lactic Acid 3.4 H* 06/22/23 20:25: WBC 27.7 H, RBC 4.83, Hgb 13.8, Hct 43.2, MCV 89.4, MCH 28.6, MCHC 31.9 L, RDW Std Deviation 49.7 H, RDW Coeff of Yanira 15.4 H, Plt Count 165, MPV 11.7, Immature Gran % (Auto) 1.300 H, Neut % (Auto) 91.7 H, Lymph % (Auto) 1.4 L, Tucker % (Auto) 5.3, Eos % (Auto) 0.0, Baso % (Auto) 0.3, Absolute Neuts (auto) 25.4 H, Absolute Lymphs (auto) 0.40 L, Nucleated RBC % 0, Differential Comment SEE COMMENTS, Platelet Estimate ADEQUATE, Plt Morphology Comment LARGE, RBC Morphology N CHROM, Anisocytosis RARE, Macrocytosis RARE, Tear Drop Cells RARE, Ovalocytes RARE, Sodium 138, Potassium 4.1, Chloride 106, Carbon Dioxide 20.0 L, Anion Gap 12, BUN 32 H, Creatinine 2.37 H, Estim Creat Clear Calc 28.91, Est GFR (MDRD) Af Amer 35 L, Est GFR (MDRD) Non-Af 29 L, BUN/Creatinine Ratio 13.5, Glucose 224 H, Calcium 8.9, Total Bilirubin 0.60, AST 16, ALT 11 L, Alkaline Phosphatase 90, Total Protein 7.9, Albumin 3.2, Globulin 4.7 H, Albumin/Globulin Ratio 0.7 L, Urine Color Yellow, Urine Clarity Cloudy, Urine pH 9.0, Ur Specific Lindsay 1.015, Urine Protein 30 H, Urine Glucose (UA) Normal, Urine Ketones Negative, Urine Occult Blood 250 H, Urine Nitrite Negative, Urine Bilirubin Negative, Urine Urobilinogen Normal, Ur Leukocyte Esterase 500 H, Urine RBC 10-25 SEEN, Urine WBC 10-25 SEEN, Ur Squamous Epith Cells 0 SEEN, Triple Phos Crystals 1+, Amorphous Sediment 1+, Urine Bacteria 4+, Urine Mucus 0 SEEN 06/22/23 20:45: Lactic Acid 4.6 H* 06/22/23 22:20: PT 15.3 H, INR 1.2, APTT 30.0 06/23/23 01:30: WBC 17.1 H, RBC 3.49 L, Hgb 10.0 L, Hct 33.7 L, MCV 96.6 H D, MCH 28.7, MCHC 29.7 L D, RDW Std Deviation 56.4 H, RDW Coeff of Yanira 16.0 H, Plt Count 125 L, MPV 11.6, Immature Gran % (Auto) 0.700, Neut % (Auto) 95.2 H, Lymph % (Auto) 2.1 L, Tucker % (Auto) 1.8, Eos % (Auto) 0.0, Baso % (Auto) 0.2, Absolute Neuts (auto) 16.2 H, Absolute Lymphs (auto) 0.36 L, Nucleated RBC % 0, Sodium 132 L, Potassium 3.3 L, Chloride 103, Carbon Dioxide 16.0 L, Anion Gap 13, BUN 25 H, Creatinine 2.11 H, Estim Creat Clear Calc 31.64, Est GFR (MDRD) Af Amer 40 L, Est GFR (MDRD) Non-Af 33 L, BUN/Creatinine Ratio 11.8, Glucose 604 H*, Lactic Acid 2.7 H*, Calcium 6.2 L*, Phosphorus 2.0 L, Magnesium 1.3 L, Total Bilirubin 0.60, AST 12 L, ALT 8 L, Alkaline Phosphatase 52, Troponin I High Sens 18, Total Protein 5.0 L, Albumin 2.0 L, Globulin 3.0, Albumin/Globulin Ratio 0.7 L, Vitamin B12 381, Folate 8.40, TSH 7.75 H 06/23/23 02:05: Urine Opiates Screen NEGATIVE, Urine Methadone Screen NEGATIVE, Ur Barbiturates Screen NEGATIVE, Ur Phencyclidine Scrn NEGATIVE, Ur Amphetamines Screen NEGATIVE, MDMA (Ecstasy) Screen NEGATIVE, U Benzodiazepines Scrn NEGATIVE, Urine Cocaine Screen NEGATIVE, U Cannabinoids Screen NEGATIVE, Ur Drug Screen Comment 06/23/23 04:16: D-Dimer Quant (PE/DVT) 7.81 H*, Free T4 0.81 06/23/23 05:43: PT 15.3 H, INR 1.2, APTT 37.2 H 06/23/23 06:54: POC Glucose 208 H Micro: Microbiology 06/23/23 02:05 Nasal Secretion MRSA (PCR) - Final 06/23/23 02:05 Urine Catheter - Maddox Legionella Antigen - Final 06/23/23 02:05 Urine Catheter - Maddox Streptococcus pneumoniae Antigen (M - Final 06/22/23 20:55 Mucosa - Nasopharyngeal SARS-CoV-2, Influenza & RSV (PCR) - Final ABG Data ABG results: ABG 06/22/23 23:28 Specimen Type ART Sample Site L Brach pH 7.33 L Bicarbonate Actual 20.9 L Total CO2 22 Base Excess -5 L O2 Saturation 90 L O2 % 2.0 ABG pCO2 39.6 ABG pO2 63 L Mo Test Positive O2 Delivery Device Cannula Vent Mode Not entered Attestation: I personally reviewed and interpreted this ABG as follows: (See HPI) Rhythm Strip Rhythm Strip: Sinus Tach Rate: 112 Ectopy: PVC(s) (Few to occasional) Imaging Radiology Impression Chest X-Ray 06/22/23 21:05 IMPRESSION: Poor inspiration with some bibasilar atelectasis. Cardiomegaly. Electronically Signed: Roldan Kent MD at 21:44 EDT , Chest X-Ray 06/23/23 05:55 IMPRESSION: Increased left basilar atelectasis or infiltrate. Aspiration pneumonia not excluded. Electronically Signed: France Jalloh MD at 5:18 EDT , KUB X-Ray 06/23/23 05:55 IMPRESSION: Dilated small bowel not significantly changed compared to earlier CT. Electronically Signed: France Jalloh MD at 5:24 EDT , Abdomen/Pelvis CT 06/23/23 23:54 IMPRESSION: 1. Dilated small bowel. Pattern suggests at least partial distal small bowel obstruction, versus enteritis or ileus. 2. Cholelithiasis including a stone in the gallbladder neck. Ultrasound correlation may be helpful if clinically indicated. 3. Moderate right hydroureteronephrosis with no definite obstructing ureteral calculus identified. 4. Urinary bladder wall thickening may be consistent with acute cystitis. Bladder distended despite presence of the Maddox catheter. Atrophic left kidney without hydronephrosis. 5. Subcutaneous edema left abdominal wall/flank with more diffuse edema extending into the left lower extremity. Question cellulitis. 6. Left lower lobe consolidation suspected pneumonia. Minimal bilateral pleural effusions. 7. Aortobiiliac graft. 8. Soft tissue thickening presacral presumed postsurgical. Electronically Signed: France Jalloh MD at 2:27 EDT , Charges/Coding Visit Charges Inpatient E&M: 33322 Init Hosp L3
--- NOTE | 2023-06-23 08:10 | VDLE_ITS ---
Reason For Study: Elevated D-dimer RIGHT LEFT GSV is normal. GSV is normal. CFV is compressible, spontaneous, phasic, Acute deep vein thrombosis is noted in the competent and demonstrates normal CFV, FV and SoleusV. It is dilated and augmentation. NONCOMPRESSIBLE. FV is compressible, spontaneous, phasic, POP V is compressible, spontaneous, phasic, competent and demonstrates normal competent and demonstrates normal augmentation. augmentation. POP V is compressible, spontaneous, phasic, T/P Trunk is compressible. competent and demonstrates normal PTV is compressible. augmentation. LT PerV is compressible. T/P Trunk is compressible. PTV is compressible. RT PerV is compressible. Procedure This is a venous duplex using B-mode, color flow and spectral Doppler. Exam performed portable in ICU/CCU. The study was technically difficult. A preliminary report was called and/or faxed to Dr. De La O. VL/Venous Duplex US - Gary Extrem Interpretation Summary Acute deep venous thrombosis left common femoral, femoral, and soleus veins. Patent, compressible bilateral great saphenous veins. Ordering Physician: Kulwinder De La O Referring Physician: Jenae Franco Performed By: Denice Hudson RVT
[2023-06-23 08:49] LABS: ALB/GLOB Ratio 0.7 RATIO (0.9-2.4); AST(SGOT) 14 U/L (15-37); Alanine Aminotransfer ALT/SGPT 9 U/L (16-61); Albumin, Serum 2.6 g/dL (3.2-5.0); Alkaline Phosphatase 63 U/L (45-117); Anion Gap 10 (5-15); BUN 33 mg/dL (7-18); BUN/Creat Ratio 13.4 RATIO (10-20); Calcium,Total 7.9 mg/dL (8.5-10.1); Chloride 110 mmol/L (98-107); Creatinine, Serum 2.47 mg/dL (0.70-1.30); EST Glomerular Filtration Rate 27 mL/min (>60); Est Glom Filt Rate - Afr Amer 33 mL/min (>60); Estimated Creatinine Clearance 27.03 ml/min; Globulin 3.9 g/dL (2.2-4.2); Glucose 226 mg/dL (74-106); Potassium 4.1 mmol/L (3.5-5.1); Protein, Total 6.5 g/dL (6.4-8.2); Sodium Level 140 mmol/L (136-145)
[2023-06-23 10:00] LABS: Magnesium 1.7 mg/dL (1.6-2.6); Phosphorus 3.3 mg/dL (2.5-4.9)
--- NOTE | 2023-06-23 10:00 | CASEMGMT ---
Addendum entered by Dennis Crump 06/23/23 10:26: TC to [facility] at this time to verify if the pt was active with [facility]. No answer at this time, will follow. Original Note: RN CM Assessment Face to Face with patient for initial transition planning/care coordination assessment. Pt is sleeping comfortably in bed at this time. Pt has also been displaying AMS. TC to the pt NOK on file (Shaunna Cabral/ Daughter) at this time. Shaunna states that she is willing to answer this RN CM questions of initial assessment. Care providers, pharmacy, and demographics verified. Admitting dx: Sepsis due to UTI and Aspiration Pneumonia LACE Strata: 1 PCP: Jeane Franco Specialists: Dr. Kem Hernandez (Urology), GI and Oncologist thru [facility] in [facility] Pharmacy: [facility] Insurance: [email or web address] A/B, [place] Prescription Benefit: Yes LNOK: Shaunna Cabral (JEANNA), Dm Nicole (Son) Living Arrangements: Pt lives with his Daughter and son in a 2 story home with a BM with a FFSU and ramp to enter. Pt daughter states that the pt does not go up or downstairs. ADLs/IADLs: Pt son and daughter help with ADLs Transportation: Son, Daughter. Pt daughter states that the pt does not go out much unless it is to a Doctors appt or something. DME: Hospital bed. W/C. FWW. Shower bench. Pt is currently on 3L o2. Pt daughter states that she wants to wait and see how the pt does before selecting a DME company for potential home oxygen needs. HHC/SNF: Pt daughter states that the pt was active with [facility] (SN, PT, OT) x3 weeks and was just discontinued from their care last week. Pt has a chronic Maddox that SN was addressing via . Pt daughter states the pt was at a SNF in [place] last November for the same thing. Plan: TBD. Pt is currently sleeping and has been showing signs of AMS. Pt daughter states that she feels comfortable with the pt coming back home once medically stable. Pt daughter states that she would like Home Health restarted if the pt does indeed go home at time of DC. Will follow pt progression in the hospital to see what he qualifies for. CM to follow oxygen and set up Home Health if the pt is agreeable (once A&Ox3). B Theron COELHO CM
[2023-06-23] MEDS: Fenofibrate 145 MG Tablet PO (10:16)
[2023-06-23] MEDS: Finasteride 5 MG Tablet PO (10:16)
[2023-06-23] MEDS: Aspirin E.C. 81 MG Tablet PO (10:16)
[2023-06-23] MEDS: Pantoprazole Sodium 40 MG in 0.9% Normal Saline (100mL MB+) 100 ML 330 MG IV (10:19)
[2023-06-23] MEDS: Levothyroxine 175 MCG Tablet PO (10:19)
[2023-06-23] MEDS: Vancomycin HCl 2,000 MG in 0.9% Normal Saline (500mL Bag) 500 ML 250 MG IV (10:56)
--- NOTE | 2023-06-23 11:03 | PCM.RX.CS ---
Consult Antibiotic Management Pharmacy has been consulted to manage selected antibiotic: Vancomycin Type of Intervention Type of Consult: New start Suspected Infection Suspected Infection: Sepsis and Other (uti) Labs Labs: Sodium 140 mmol/L (136-145) 06/23/23 06:59 Potassium 4.1 mmol/L (3.5-5.1) 06/23/23 06:59 Chloride 110 mmol/L (98-107) H 06/23/23 06:59 Carbon Dioxide 20.0 mmol/L (21.0-32.0) L 06/23/23 06:59 Anion Gap 10 (5-15) 06/23/23 06:59 BUN 33 mg/dL (7-18) H 06/23/23 06:59 Creatinine 2.47 mg/dL (0.70-1.30) H 06/23/23 06:59 Est GFR (MDRD) Af Amer 33 mL/min (>60) L 06/23/23 06:59 Est GFR (MDRD) Non-Af 27 mL/min (>60) L 06/23/23 06:59 BUN/Creatinine Ratio 13.4 RATIO (10-20) 06/23/23 06:59 Glucose 226 mg/dL (74-106) H 06/23/23 06:59 Microbiology Microbiology: Microbiology 06/23/23 02:05 Nasal Secretion MRSA (PCR) - Final 06/23/23 02:05 Urine Catheter - Maddox Legionella Antigen - Final 06/23/23 02:05 Urine Catheter - Maddox Streptococcus pneumoniae Antigen (M - Final 06/22/23 20:55 Mucosa - Nasopharyngeal SARS-CoV-2, Influenza & RSV (PCR) - Final Pharmacy Plan for Drug Dosing Pharmacy Plan for Drug Dosing: NEW START IV VANCOMYCIN Consulting Physician: SUJATHA Indication: SEPSIS/UTI Goal Trough: 15-20 MG/DL SrCr: 2.47 MG/DL (06/22) CrCl: 27 ML/MIN Comments: initial loading dose of 2000mg given 06/22 @ 1056 Vancomycin Dose: Will start 1000mg Q24H 06/23 @ 1100 and get a trough prior to 3rd total dose per policy. Pending Level: 06/25/23 @ 1030 Pharmacy Service will continue to monitor and adjust dosing as required.
--- NOTE | 2023-06-23 11:22 | PN.HOSP_ITS ---
Reason for Visit Reason for Visit: Diagnoses Sepsis, unspecified organism (06/23/23) Unspecified infectious disease (06/23/23) Acidosis, unspecified (06/23/23) Other encephalopathy (06/23/23) Acute respiratory failure with hypoxia (06/23/23) Noninfective gastroenteritis and colitis, unspecified (06/23/23) Calculus of gallbladder without cholecystitis without obstruction (06/23/23) Acute kidney failure, unspecified (06/23/23) Urinary tract infection, site not specified (06/23/23) Severe sepsis without septic shock (06/23/23) Unspecified foreign body in respiratory tract, part unspecified causing other injury, initial encounter (06/23/23) Subjective Subjective Patient admitted on the evening of 06/21 with multiple concerns including nausea/ vomiting, shortness of breath and altered mentation. Patient had noted chronic Maddox catheter and UA was concerning for UTI, and patient's presentation was overall concerning for sepsis with acute encephalopathy likely secondary to sepsis. He was admitted to the ICU for further management. Completed extensive chart review of patient's prior medical history on 06/22. Patient's past medical history is significant for stroke with residual left- sided weakness, rectal cancer s/p chemotherapy and radiation therapy with resection of left colon entire rectum and permanent colostomy placement in 08/28, PAD s/p aortobifemoral bypass in 12/2013, urinary retention with chronic indwelling Maddox, AAA without rupture, type 2 diabetes mellitus, hypothyroidism and hypertension. Patient previously lived in [place] with his , but unfortunately his in December 2022. He moved from the [place] to [place] in January to live with his daughter. Patient established with a PCP with [facility] in 03/2023. He also established with [facility] urology in 01/2023 and established with Oncology at [facility] in 04/2023. Per PCP note from 03/2023, was noted that patient was admitted to the hospital in [place] from 11/03 to 11/16/2022. He was found to have MRSA bacteremia presumed secondary to UTI. Endocarditis was ruled out during that admission and patient was started on 6 weeks of daptomycin with plans for possible suppressive doxycycline due to prior ABF bypass graft. He was also found to have atypical pneumonia during that admission. He ultimately was discharged to SNF after hospitalization for 6 weeks. PCP noted that patient uses a walker at baseline due to chronic debility. Home health care has been seeing him through [facility], last documented visit on 06/15. Patient notably has had labs done at outside hospitals recently. He had a creatinine of 1.56 in 04/2203, and repeat creatinine was 1.68 on 06/08/2023. His estimated GFR is around 40-50, consistent with CKD stage III. With regard to his cancer history, CEA level of 4 on 2023. Plan per oncology is for a surveillance colonoscopy in the near future and surveillance CT scans going forward. Patient seen at bedside this morning in the ICU. He was having his venous duple x ultrasound of his lower extremities done. Patient was sitting up fairly comfortably in bed and in no acute distress during our encounter. He was fatigued appearing. He made appropriate eye contact with me when I asked him questions, but he was only able to tell me that he knows he is in the hospital but does not know what hospital he is in or what the month or year are. He currently denies any pain or discomfort. Denies any pain in the penis with his Maddox catheter. Denies any pain in his lower extremities. Denies any chest pain or shortness of breath at rest. Currently breathing comfortably on 2 L nasal cannula with good oxygen saturations. He denies any other acute concerns. Objective Data Objective Data Vital Signs: Vital Signs Temp Pulse Resp BP Pulse Ox O2 Del Method O2 Flow Rate 98.9 F 93 19 H 98/65 96 Nasal Cannula 3 06/23/23 08:00 06/23/23 11:00 06/23/23 11:00 06/23/23 11:00 06/23/23 11:00 06/23/23 11:00 06/23/23 11:00 Oxygen Flow Rate (L/min) 3 Oxygen Delivery Method Nasal Cannula Weight: 80.2 kg Body Mass Index (BMI) 27.6 Intake & Output: Intake and Output for Last 24 Hours 06/21/23 06/22/23 06/23/23 23:59 23:59 23:59 Intake Total 3282.5 / 3282.5 1952.5 / 1952.5 Output Total 500 / 500 Balance 3282.5 / 3282.5 1452.5 / 1452.5 Lab / Micro Data 06/23/23 01:30 06/23/23 06:59 Labs: Laboratory Results - last 24 hr 06/22/23 00:27: Lactic Acid 3.4 H* 06/22/23 20:25: WBC 27.7 H, RBC 4.83, Hgb 13.8, Hct 43.2, MCV 89.4, MCH 28.6, MCHC 31.9 L, RDW Std Deviation 49.7 H, RDW Coeff of [place] 15.4 H, Plt Count 165, MPV 11.7, Immature Gran % (Auto) 1.300 H, Neut % (Auto) 91.7 H, Lymph % (Auto) 1.4 L, [place] % (Auto) 5.3, Eos % (Auto) 0.0, Baso % (Auto) 0.3, Absolute Neuts (auto) 25.4 H, Absolute Lymphs (auto) 0.40 L, Nucleated RBC % 0, Differential Comment SEE COMMENTS, Platelet Estimate ADEQUATE, Plt Morphology Comment LARGE, RBC Morphology N CHROM, Anisocytosis RARE, Macrocytosis RARE, Tear Drop Cells RARE, Ovalocytes RARE, Sodium 138, Potassium 4.1, Chloride 106, Carbon Dioxide 20.0 L, Anion Gap 12, BUN 32 H, Creatinine 2.37 H, Estim Creat Clear Calc 28.91, Est GFR (MDRD) Af Amer 35 L, Est GFR (MDRD) Non-Af 29 L, BUN/Creatinine Ratio 13.5, Glucose 224 H, Calcium 8.9, Total Bilirubin 0.60, AST 16, ALT 11 L, Alkaline Phosphatase 90, Total Protein 7.9, Albumin 3.2, Globulin 4.7 H, Albumin/Globulin Ratio 0.7 L, Urine Color Yellow, Urine Clarity Cloudy, Urine pH 9.0, Ur Specific [place] 1.015, Urine Protein 30 H, Urine Glucose (UA) Normal, Urine Ketones Negative, Urine Occult Blood 250 H, Urine Nitrite Negative, Urine Bilirubin Negative, Urine Urobilinogen Normal, Ur Leukocyte Esterase 500 H, Urine RBC 10-25 SEEN, Urine WBC 10-25 SEEN, Ur Squamous Epith Cells 0 SEEN, Triple Phos Crystals 1+, Amorphous Sediment 1+, Urine Bacteria 4+, Urine Mucus 0 SEEN 06/22/23 20:45: Lactic Acid 4.6 H* 06/22/23 22:20: PT 15.3 H, INR 1.2, APTT 30.0 06/23/23 01:30: WBC 17.1 H, RBC 3.49 L, Hgb 10.0 L, Hct 33.7 L, MCV 96.6 H D, MCH 28.7, MCHC 29.7 L D, RDW Std Deviation 56.4 H, RDW Coeff of [place] 16.0 H, Plt Count 125 L, MPV 11.6, Immature Gran % (Auto) 0.700, Neut % (Auto) 95.2 H, Lymph % (Auto) 2.1 L, [place] % (Auto) 1.8, Eos % (Auto) 0.0, Baso % (Auto) 0.2, Absolute Neuts (auto) 16.2 H, Absolute Lymphs (auto) 0.36 L, Nucleated RBC % 0, Sodium 132 L, Potassium 3.3 L, Chloride 103, Carbon Dioxide 16.0 L, Anion Gap 13, BUN 25 H, Creatinine 2.11 H, Estim Creat Clear Calc 31.64, Est GFR (MDRD) Af Amer 40 L, Est GFR (MDRD) Non-Af 33 L, BUN/Creatinine Ratio 11.8, Glucose 604 H*, Lactic Acid 2.7 H*, Calcium 6.2 L*, Phosphorus 2.0 L, Magnesium 1.3 L, Total Bilirubin 0.60, AST 12 L, ALT 8 L, Alkaline Phosphatase 52, Troponin I High Sens 18, Total Protein 5.0 L, Albumin 2.0 L, Globulin 3.0, Albumin/Globulin Ratio 0.7 L, Vitamin B12 381, Folate 8.40, TSH 7.75 H 06/23/23 02:05: Urine Opiates Screen NEGATIVE, Urine Methadone Screen NEGATIVE, Ur Barbiturates Screen NEGATIVE, Ur Phencyclidine Scrn NEGATIVE, Ur Amphetamines Screen NEGATIVE, MDMA (Ecstasy) Screen NEGATIVE, U Benzodiazepines Scrn NEGATIVE, Urine Cocaine Screen NEGATIVE, U Cannabinoids Screen NEGATIVE, Ur Drug Screen Comment 06/23/23 04:16: D-Dimer Quant (PE/DVT) 7.81 H*, Free T4 0.81 06/23/23 05:43: PT 15.3 H, INR 1.2, APTT 37.2 H 06/23/23 06:54: POC Glucose 208 H 06/23/23 06:59: Sodium 140, Potassium 4.1, Chloride 110 H, Carbon Dioxide 20.0 L , Anion Gap 10, BUN 33 H, Creatinine 2.47 H, Estim Creat Clear Calc 27.03, Est GFR (MDRD) Af Amer 33 L, Est GFR (MDRD) Non-Af 27 L, BUN/Creatinine Ratio 13.4, Glucose 226 H, Calcium 7.9 L, Phosphorus 3.3, Magnesium 1.7, Total Bilirubin 0.70, AST 14 L, ALT 9 L, Alkaline Phosphatase 63, Total Protein 6.5, Albumin 2.6 L, Globulin 3.9, Albumin/Globulin Ratio 0.7 L Micro: Microbiology 06/23/23 02:05 Nasal Secretion MRSA (PCR) - Final 06/23/23 02:05 Urine Catheter - Maddox Legionella Antigen - Final 06/23/23 02:05 Urine Catheter - Maddox Streptococcus pneumoniae Antigen (M - Final 06/22/23 20:55 Mucosa - Nasopharyngeal SARS-CoV-2, Influenza & RSV (PCR) - Final ABG Data ABG results: ABG 06/22/23 23:28 Specimen Type ART Sample Site L Brach pH 7.33 L Bicarbonate Actual 20.9 L Total CO2 22 Base Excess -5 L O2 Saturation 90 L O2 % 2.0 ABG pCO2 39.6 ABG pO2 63 L Mo Test Positive O2 Delivery Device Cannula Vent Mode Not entered Radiography Diagnostic Testing: Radiology Impression Chest X-Ray 06/22/23 21:05 IMPRESSION: Poor inspiration with some bibasilar atelectasis. Cardiomegaly. Electronically Signed: Roldan Kent MD at 21:44 EDT , Chest X-Ray 06/23/23 05:55 IMPRESSION: Increased left basilar atelectasis or infiltrate. Aspiration pneumonia not excluded. Electronically Signed: France Jalloh MD at 5:18 EDT , KUB X-Ray 06/23/23 05:55 IMPRESSION: Dilated small bowel not significantly changed compared to earlier CT. Electronically Signed: France Jalloh MD at 5:24 EDT Reading Location ID and State: [facility] / [place] Tel , Service support , Venous Doppler Study 06/23/23 08:10 Interpretation Summary Acute deep venous thrombosis left common femoral, femoral, and soleus veins. Patent, compressible bilateral great saphenous veins. Ordering Physician: Kulwinder De La O Referring Physician: Jenae Franco Performed By: Denice Hudson RVT Abdomen/Pelvis CT 06/23/23 23:54 IMPRESSION: 1. Dilated small bowel. Pattern suggests at least partial distal small bowel obstruction, versus enteritis or ileus. 2. Cholelithiasis including a stone in the gallbladder neck. Ultrasound correlation may be helpful if clinically indicated. 3. Moderate right hydroureteronephrosis with no definite obstructing ureteral calculus identified. 4. Urinary bladder wall thickening may be consistent with acute cystitis. Bladder distended despite presence of the Maddox catheter. Atrophic left kidney without hydronephrosis. 5. Subcutaneous edema left abdominal wall/flank with more diffuse edema extending into the left lower extremity. Question cellulitis. 6. Left lower lobe consolidation suspected pneumonia. Minimal bilateral pleural effusions. 7. Aortobiiliac graft. 8. Soft tissue thickening presacral presumed postsurgical. Electronically Signed: France Jalloh MD at 2:27 EDT , Rhythm Strip Rhythm Strip: Sinus Tach Rate: 112 Ectopy: PVC(s) (Few to occasional) Physical Exam Const alert and no apparent distress Constitutional Narrative: Elderly male, chronically ill-appearing, noted to be very disheveled on admission but nursing staff cleaned up his appearance and he now appears fairly well-groomed, sitting up fairly comfortably in bed, moderately fatigued appearing, making appropriate eye contact with questions but confused and not answering questions appropriately, no acute distress. General Appearance: cooperative and comfortable HEENT normocephalic, head/scalp atraumatic, hearing grossly normal bilaterally and nasal mucous membranes and turbinates normal Eyes PERRL, EOMs intact bilaterally and conjunctivae normal Neck full ROM Chest inspection of chest normal Resp normal respiratory effort, normal air movement, no use of accessory muscles and clear to auscultation bilaterally Resp Narrative: Breathing comfortably on 2 L nasal cannula with good oxygen saturations. Mildly decreased breath sounds bilaterally throughout, no wheezing or crackles noted. Cardio regular rate, regular rhythm, no murmurs and peripheral pulses 2+ throughout GI normal to inspection, nondistended, normoactive bowel sounds, soft to palpation, non-tender and non-distended GI Narrative: Colostomy noted with moderate amount of brown, normal-appearing stool output. Back/Spine normal ROM Extremity full ROM Extremity Narrative: +1 to +2 left lower extremity edema noted. No erythema noted. No tenderness to palpation. Skin no rashes or lesions noted Neuro no focal motor deficits and no sensory deficits noted Assessment & Plan Assessment/Plan (1) Enteritis: (2) Encephalopathy due to infection: (3) Complicated urinary tract infection: (4) Severe sepsis with acute organ dysfunction: (5) FIOR (acute kidney injury): (6) DVT (deep venous thrombosis): PLAN: Plan Patient is a 73-year-old male who presented to [facility] ED on 06/22/2023 with altered mentation, nausea/vomiting and worsening shortness of breath. 1. Sepsis without shock suspected secondary to complicated UTI with possible aspiration pneumonia and possible gastroenteritis Presented with acute encephalopathy, borderline hypotension, tachycardia, WBC count 27, lactic acid 4.6, FIOR and suspected urinary source of infection with possible pneumonia and gastroenteritis as well; thus met sepsis criteria on admit. CT abdomen pelvis showed dilated small bowel concerning for enteritis versus ileus, moderate right hydroureteronephrosis with no ureteral calculus, urinary bladder wall thickening concerning for acute cystitis, left lower lobe consolidation concerning for pneumonia, cholelithiasis with stone in gallbladder neck. UA with 500 leukocyte esterase, negative nitrates, 4+ bacteria. Chest x- ray with increased left basilar atelectasis versus infiltrate. Gallbladder ultrasound with multiple gallstones and hepatomegaly but no concern for cholelithiasis. MRSA nasal swab positive. Respiratory PCR panel negative. Urine culture growing greater than 100,000 present of E. coli, sensitivities pending. Blood cultures pending. Received approximately 30 cc/kg of IV fluids on admission. ? Log Cutter following. Infectious disease consulted. Continue IV vancomycin and Zosyn for now. Patient with borderline hypotension on evening of 06/22, can initiate pressors as needed. Per cylinder steamer, lower clinical suspicion of acute aspiration as CT scan is more suggestive of atelectasis. CT scan findings do appear consistent with enteritis. Follow-up final urine culture and blood cultures. 2. Acute encephalopathy suspected secondary to sepsis, improving Presented with worsening confusion and lethargy per family. No focal neuro fi ndings on exam, no recent falls, not on anticoagulation, low concern for intracranial pathology so no head imaging was obtained. Patient with mild to moderate improvement noted on hospital day 2 after heavy IV fluid resuscitation and treat with antibiotics for sepsis as noted above. ? Continue treatment as above. Continue to monitor closely. Avoid deliriogenic medications. 3. Acute left lower extremity DVT with suspected PE, mild hypoxia Noted to have left lower extremity swelling on admission as well as new onset mild hypoxia. Venous duplex ultrasound on 06/22 showed acute DVT in left common femoral, femoral and soleus veins. Could not do CTA chest due to FIOR as noted below, but presume the patient does have PE as well given new oxygen requirement. ? Continue heparin drip that was started in the ED. Echo ordered. Cardiology consulted. Wean supplemental oxygen as able. 4. FIOR on CKD stage III Creatinine 2.37 on admit, baseline creatinine appears to be around 1.5-1.7. Suspect primarily prerenal FIOR with possibly some degree of ATN in setting of sepsis as noted above. Maddox catheter in place, has had adequate urine output to this point, no concern for postobstructive etiology. ? Monitor BMP daily and urine output. 5. 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 Previously followed with urology in [place]. Has history of chronic urinary retention with chronic Maddox catheter. Patient noted to have apparent erosion of the Maddox catheter through the penis with another opening in the penis noted that the catheter is coming from. ? Urology evaluated on 06/22. 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 Maddox catheter was exchanged on admission through the hypospadia. Urology noted that the catheter was draining well, recommended continuing catheter with no further changes in management at this time. Continue outpatient urology follow-up. 6. Chronic debility Lives with his daughter and has debility at baseline, uses a walker for ambulation and is currently being followed by home health care services. ? PT/OT/case patient consulted. 7. Chronic anemia Hemoglobin 13.8 on admit, decreased to hemoglobin 10.0 on hospital day 2 after significant IV fluid resuscitation. On review of outpatient labs, appears that baseline hemoglobin is around 10-11. No active signs of bleeding noted. ? Trend CBC daily. Will obtain iron studies, B12 and folate for further workup. 8. Cholelithiasis ? Noted on CT abdomen pelvis and gallbladder ultrasound on admission. LFTs normal, no abdominal pain noted. No concern for acute cholecystitis. No GI or general surgery needs at this time, can establish with them in the outpatient setting as needed. Chronic medical conditions: ? Type 2 diabetes mellitus: Does not appear to be on any home medications. A1c 7.1% on admit. Okay for sliding scale insulin while inpatient. ? Hypertension: On home amlodipine. ? Hyperlipidemia: Continue home statin and fenofibrate. ? BPH with obstructive symptoms: Continue home finasteride. ? Hypothyroidism: TSH 7.75, free T4 low normal at 0.81 on admit. Continue home Synthroid. Recommend repeat labs in outpatient setting in 4 to 6 weeks. ? History of stroke with residual left-sided weakness: Continue home aspirin. ? History of rectal cancer s/p chemotherapy and radiation therapy and resection of left colon and entire rectum with permanent colostomy placement in 2020: Cont inue outpatient follow-up with oncology. ? History of PAD s/p aortobifemoral bypass in 2013: Continue home aspirin as above. ? History of AAA without rupture: Outpatient follow-up. DVT prophylaxis: Heparin drip CODE STATUS: Full code, verified Expected disposition: TBD Total clinical time spent by myself addressing the patient's medical issues, reviewing all the data, and collaborating with patient's care team: 50 minutes. Charges/Coding Visit Charges Inpatient E&M: [id number] [facility] Hosp L3
[2023-06-23 12:08] LABS: Hemoglobin A1c 7.1 % (3.8-5.6)
[2023-06-23 14:26] LABS: Partial Thromboplast Time 62.6 Seconds (24.1-36.2)
--- NOTE | 2023-06-23 14:32 | PCM.CONS.U ---
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 At this point it is draining well there is no no problems with the catheter is just a chronic pressure issue from a chronic catheter is of the penis that has been on traction for a long time. No reason to change it no reason to offer any other intervention. Call with questions [facility] Medical History Colon cancer Home Medications amlodipine 10 mg tablet 10 mg PO DAILY 06/22/23 [History Last Taken Unknown] ferrous sulfate 325 mg (65 mg iron) tablet 325 mg PO DAILY 06/22/23 [History Last Taken Unknown] finasteride 5 mg tablet 5 mg PO DAILY 06/22/23 [History Last Taken Unknown] levothyroxine 175 mcg tablet 175 mcg PO 06/22/23 [History Last Taken Unknown] Allergy/AdvReac Type Severity Reaction Status Date / Time No Known Allergies Allergy Verified 06/22/23 20:14 Social History Smoking Status: Former smoker Lab / Micro Data 06/23/23 01:30 06/23/23 06:59 Labs: Laboratory Results - last 24 hr 06/22/23 00:27: Lactic Acid 3.4 H* 06/22/23 20:25: WBC 27.7 H, RBC 4.83, Hgb 13.8, Hct 43.2, MCV 89.4, MCH 28.6, MCHC 31.9 L, RDW Std Deviation 49.7 H, RDW Coeff of Yanira 15.4 H, Plt Count 165, MPV 11.7, Immature Gran % (Auto) 1.300 H, Neut % (Auto) 91.7 H, Lymph % (Auto) 1.4 L, Clinch % (Auto) 5.3, Eos % (Auto) 0.0, Baso % (Auto) 0.3, Absolute Neuts (auto) 25.4 H, Absolute Lymphs (auto) 0.40 L, Nucleated RBC % 0, Differential Comment SEE COMMENTS, Platelet Estimate ADEQUATE, Plt Morphology Comment LARGE, RBC Morphology N CHROM, Anisocytosis RARE, Macrocytosis RARE, Tear Drop Cells RARE, Ovalocytes RARE, Sodium 138, Potassium 4.1, Chloride 106, Carbon Dioxide 20.0 L, Anion Gap 12, BUN 32 H, Creatinine 2.37 H, Estim Creat Clear Calc 28.91, Est GFR (MDRD) Af Amer 35 L, Est GFR (MDRD) Non-Af 29 L, BUN/Creatinine Ratio 13.5, Glucose 224 H, Calcium 8.9, Total Bilirubin 0.60, AST 16, ALT 11 L, Alkaline Phosphatase 90, Total Protein 7.9, Albumin 3.2, Globulin 4.7 H, Albumin/Globulin Ratio 0.7 L, Urine Color Yellow, Urine Clarity Cloudy, Urine pH 9.0, Ur Specific [place] 1.015, Urine Protein 30 H, Urine Glucose (UA) Normal, Urine Ketones Negative, Urine Occult Blood 250 H, Urine Nitrite Negative, Urine Bilirubin Negative, Urine Urobilinogen Normal, Ur Leukocyte Esterase 500 H, Urine RBC 10-25 SEEN, Urine WBC 10-25 SEEN, Ur Squamous Epith Cells 0 SEEN, Triple Phos Crystals 1+, Amorphous Sediment 1+, Urine Bacteria 4+, Urine Mucus 0 SEEN 06/22/23 20:45: Lactic Acid 4.6 H* 06/22/23 22:20: PT 15.3 H, INR 1.2, APTT 30.0 06/23/23 01:30: WBC 17.1 H, RBC 3.49 L, Hgb 10.0 L, Hct 33.7 L, MCV 96.6 H D, MCH 28.7, MCHC 29.7 L D, RDW Std Deviation 56.4 H, RDW Coeff of Yanira 16.0 H, Plt Count 125 L, MPV 11.6, Immature Gran % (Auto) 0.700, Neut % (Auto) 95.2 H, Lymph % (Auto) 2.1 L, Clinch % (Auto) 1.8, Eos % (Auto) 0.0, Baso % (Auto) 0.2, Absolute Neuts (auto) 16.2 H, Absolute Lymphs (auto) 0.36 L, Nucleated RBC % 0, Sodium 132 L, Potassium 3.3 L, Chloride 103, Carbon Dioxide 16.0 L, Anion Gap 13, BUN 25 H, Creatinine 2.11 H, Estim Creat Clear Calc 31.64, Est GFR (MDRD) Af Amer 40 L, Est GFR (MDRD) Non-Af 33 L, BUN/Creatinine Ratio 11.8, Glucose 604 H*, Hemoglobin A1c 7.1 H, Lactic Acid 2.7 H*, Calcium 6.2 L*, Phosphorus 2.0 L, Magnesium 1.3 L, Total Bilirubin 0.60, AST 12 L, ALT 8 L, Alkaline Phosphatase 52, Troponin I High Sens 18, Total Protein 5.0 L, Albumin 2.0 L, Globulin 3.0, Albumin/Globulin Ratio 0.7 L, Vitamin B12 381, Folate 8.40, TSH 7.75 H 06/23/23 02:05: Urine Opiates Screen NEGATIVE, Urine Methadone Screen NEGATIVE, Ur Barbiturates Screen NEGATIVE, Ur Phencyclidine Scrn NEGATIVE, Ur Amphetamines Screen NEGATIVE, MDMA (Ecstasy) Screen NEGATIVE, U Benzodiazepines Scrn NEGATIVE, Urine Cocaine Screen NEGATIVE, U Cannabinoids Screen NEGATIVE, Ur Drug Screen Comment 06/23/23 04:16: D-Dimer Quant (PE/DVT) 7.81 H*, Free T4 0.81 06/23/23 05:43: PT 15.3 H, INR 1.2, APTT 37.2 H 06/23/23 06:54: POC Glucose 208 H 06/23/23 06:59: Sodium 140, Potassium 4.1, Chloride 110 H, Carbon Dioxide 20.0 L, Anion Gap 10, BUN 33 H, Creatinine 2.47 H, Estim Creat Clear Calc 27.03, Est GFR (MDRD) Af Amer 33 L, Est GFR (MDRD) Non-Af 27 L, BUN/Creatinine Ratio 13.4, Glucose 226 H, Calcium 7.9 L, Phosphorus 3.3, Magnesium 1.7, Total Bilirubin 0.70, AST 14 L, ALT 9 L, Alkaline Phosphatase 63, Total Protein 6.5, Albumin 2.6 L, Globulin 3.9, Albumin/Globulin Ratio 0.7 L 06/23/23 13:35: APTT 62.6 H Micro: Microbiology 06/23/23 02:05 Nasal Secretion MRSA (PCR) - Final Meth. resistant Staph. aureus 06/22/23 20:25 Urine, Random Urine Culture - Preliminary Presumptive E. coli 06/23/23 02:05 Urine Catheter - Maddox Legionella Antigen - Final 06/23/23 02:05 Urine Catheter - Maddox Streptococcus pneumoniae Antigen (M - Final 06/22/23 20:55 Mucosa - Nasopharyngeal SARS-CoV-2, Influenza & RSV (PCR) - Final ABG Data ABG results: ABG 06/22/23 23:28 Specimen Type ART Sample Site L Brach pH 7.33 L Bicarbonate Actual 20.9 L Total CO2 22 Base Excess -5 L O2 Saturation 90 L O2 % 2.0 ABG pCO2 39.6 ABG pO2 63 L Mo Test Positive O2 Delivery Device Cannula Vent Mode Not entered Rhythm Strip Rhythm Strip: Sinus Tach Rate: 112 Ectopy: PVC(s) (Few to occasional) Imaging Radiology Impression Chest X-Ray 06/22/23 21:05 IMPRESSION: Poor inspiration with some bibasilar atelectasis. Cardiomegaly. Electronically Signed: Roldan Kent MD at 21:44 EDT , Chest X-Ray 06/23/23 05:55 IMPRESSION: Increased left basilar atelectasis or infiltrate. Aspiration pneumonia not excluded. Electronically Signed: France Jalloh MD at 5:18 EDT , KUB X-Ray 06/23/23 05:55 IMPRESSION: Dilated small bowel not significantly changed compared to earlier CT. Electronically Signed: France Jalloh MD at 5:24 EDT , Venous Doppler Study 06/23/23 08:10 Interpretation Summary Acute deep venous thrombosis left common femoral, femoral, and soleus veins. Patent, compressible bilateral great saphenous veins. Ordering Physician: Kulwinder De La O Referring Physician: Jenae Franco Performed By: Denice Hudson, Clif Abdomen/Pelvis CT 06/23/23 23:54 IMPRESSION: 1. Dilated small bowel. Pattern suggests at least partial distal small bowel obstruction, versus enteritis or ileus. 2. Cholelithiasis including a stone in the gallbladder neck. Ultrasound correlation may be helpful if clinically indicated. 3. Moderate right hydroureteronephrosis with no definite obstructing ureteral calculus identified. 4. Urinary bladder wall thickening may be consistent with acute cystitis. Bladder distended despite presence of the Maddox catheter. Atrophic left kidney without hydronephrosis. 5. Subcutaneous edema left abdominal wall/flank with more diffuse edema extending into the left lower extremity. Question cellulitis. 6. Left lower lobe consolidation suspected pneumonia. Minimal bilateral pleural effusions. 7. Aortobiiliac graft. 8. Soft tissue thickening presacral presumed postsurgical. Electronically Signed: France Jalloh MD at 2:27 EDT ,
[2023-06-23 16:47] LABS: Bedside Glucose 146 mg/dL (74-106)
[2023-06-23 18:43] LABS: Bedside Glucose 113 mg/dL (74-106)
[2023-06-23 18:57] LABS: Partial Thromboplast Time 62.4 Seconds (24.1-36.2)
[2023-06-23] MEDS: Ipratropium/Albuterol Sulfate 3 ML AMPUL.NEB INHALATION (19:32)
[2023-06-23] MEDS: Atorvastatin Calcium 40 MG Tablet PO (20:11)
[2023-06-23] MEDS: Insulin Lispro 100 UNIT/ML INSULN.PEN SC (20:14)
[2023-06-23 20:30] LABS: Bedside Glucose 170 mg/dL (74-106)
--- NOTE | 2023-06-23 23:54 | CT_ITS ---
EXAM: CT Abdomen And Pelvis W/O Contrast Injection HISTORY: Sepsis, abdominal pain TECHNIQUE: Routine protocol CT abdomen and pelvis. IV Contrast: None.. Oral contrast: None. RADIATION DOSAGE (If Supplied By Facility): CTDIvol = ( 10.30 ) mGy, DLP = ( 932.75 ) mGycm Individualized dose optimization techniques were used for this CT. COMPARISON: None. LIMITATIONS: None. FINDINGS: LOWER CHEST: Patchy groundglass opacities in the left lower lobe. Dependent atelectasis in the right lower lobe. Minimal bilateral pleural effusions. Coronary artery calcifications. LIVER: Grossly unremarkable. GALLBLADDER AND BILIARY TREE: Multiple gallstones layering in the gallbladder, with a separate stone in the gallbladder neck. No definite inflammatory changes. PANCREAS: Grossly unremarkable. SPLEEN: Relatively small size with lobular contour and peripheral calcifications. ADRENAL GLANDS: Grossly unremarkable. KIDNEYS AND URETERS: Right kidney with moderate hydronephrosis and dilated ureter to the bladder. No definite calculi identified. Left kidney atrophic without hydronephrosis. PERITONEUM: No free air. No free fluid. BOWEL: Colostomy left midabdomen. Mildly dilated small bowel. Distal small bowel is decreased caliber. Transition is not clearly identified but may be in the right lower abdomen. There is soft tissue thickening in the region of the rectum with presacral thickening presumed postsurgical changes. APPENDIX: Not identified. VESSELS: Postsurgical changes with aortobiiliac graft. REPRODUCTIVE ORGANS: Grossly unremarkable URINARY BLADDER: Moderately distended. Maddox catheter in place. Mild bladder wall thickening. Bladder diverticulum posteriorly on the left. ABDOMINAL WALL: Subcutaneous edema and body wall especially along the left lower abdominal wall/flank area more marked diffuse edema left lower extremity extending to the proximal thigh with associated skin thickening. No definite localized collection. No air in the soft tissues. Prominent inguinal lymph nodes bilaterally. Also surgical clips in the inguinal regions. BONES: No acute abnormalities. Bilateral pars defects at L5 with grade 1 spondylolisthesis L5-S1 and degenerative changes CT/Abdomen/Pelvis without Cont IMPRESSION: 1. Dilated small bowel. Pattern suggests at least partial distal small bowel obstruction, versus enteritis or ileus. 2. Cholelithiasis including a stone in the gallbladder neck. Ultrasound correlation may be helpful if clinically indicated. 3. Moderate right hydroureteronephrosis with no definite obstructing ureteral calculus identified. 4. Urinary bladder wall thickening may be consistent with acute cystitis. Bladder distended despite presence of the Maddox catheter. Atrophic left kidney without hydronephrosis. 5. Subcutaneous edema left abdominal wall/flank with more diffuse edema extending into the left lower extremity. Question cellulitis. 6. Left lower lobe consolidation suspected pneumonia. Minimal bilateral pleural effusions. 7. Aortobiiliac graft. 8. Soft tissue thickening presacral presumed postsurgical. Electronically Signed: France Jalloh MD at 2:27 EDT ,
[2023-06-24] VITALS (11 sets, daily range): BP systolic 92–122; BP diastolic 56–72; PULSE 81–94; RESP 16–22; TEMP 36.1–36.6; O2SAT 92–97; BMI 29.7
--- NOTE | 2023-06-24 00:16 | ECHOD_ITS ---
Reason For Study: EMBOLI Procedure This was a 2D Doppler, Color Flow transthoracic echocardiogram. Exam performed portable in ICU/CCU. Left Ventricle Normal left ventricle. The estimated ejection fraction is 55-60 %. Right Ventricle Normal right ventricle. Normal systolic function. Atria Normal left atrium. Normal right atrium. Mitral Valve There is mild to moderate mitral annular calcification. Tricuspid Valve Normal tricuspid valve. Aortic Valve Trisinus/trileaflet aortic valve. Aortic sclerosis, no stenosis. Mild diffuse aortic valve calcification. Pulmonic Valve The pulmonic valve is not well visualized. Great Vessels Normal aortic root. Pericardium/Pleural No pericardial effusion. MMode/2D Measurements & Calculations RVDd: 2.6 cm LAV(MOD-bp): 44.4 ml LVAd ap4: 25.1 cm2 LAV(MOD-bp) Indexed: 22.5 ml/m2 LVLd ap4: 8.7 cm LAV(MOD-sp2): 40.5 ml EDV(MOD-sp4): 61.0 ml LAV(MOD-sp4): 39.2 ml EDV(sp4-el): 61.8 ml LVAs ap4: 12.0 cm2 LVLs ap4: 6.2 cm ESV(MOD-sp4): 22.0 ml ESV(sp4-el): 19.8 ml EF(MOD-sp4): 63.9 % EF(sp4-el): 68.0 % SV(MOD-sp4): 39.0 ml SV(sp4-el): 42.0 ml LA A4 area: 15.1 cm2 LA dimension(2D): 3.5 cm RA A4 area: 8.9 cm2 Time Measurements MV dec time: 0.23 sec Doppler Measurements & Calculations MV E max tucker: 106.5 cm/sec Lat Peak E' Tucker: 11.1 cm/sec Med Peak E' Tucker: 8.1 cm/sec MV A max tucker: 142.9 cm/sec E/E' lat: 9.6 E/E' med: 13.2 MV E/A: 0.75 MV V2 max: 137.1 cm/sec MV dec slope: 477.1 cm/sec2 Ao V2 max: 163.3 cm/sec MV max P.5 mmHg Ao max P.7 mmHg MV V2 mean: 76.0 cm/sec Ao V2 mean: 107.2 cm/sec MV mean P.7 mmHg Ao mean P.4 mmHg MV V2 VTI: 37.4 cm Ao V2 VTI: 31.2 cm AV (velocity ratio): 0.81 LV V1 max: 129.8 cm/sec LV V1 max P.7 mmHg LV V1 mean P.5 mmHg LV V1 mean: 87.9 cm/sec LV V1 VTI: 25.4 cm ECHO/Echo Complete Interpretation Summary The estimated ejection fraction is 55-60 %. Ordering Physician: Kulwinder De La O Referring Physician: HINA DOWELL Performed By: Christiana Gonzalez RCS
[2023-06-24 00:25] LABS: Partial Thromboplast Time 52.5 Seconds (24.1-36.2)
[2023-06-24] MEDS: Heparin Injection (Vial) 5,000 UNIT/ML VIAL IV ×2 (00:39→14:10)
[2023-06-24] MEDS: 0.9% Saline Lock 10 ML Syringe IV (00:39)
[2023-06-24 03:24] LABS: Hematocrit 33.9 % (40-54); Hemoglobin 10.7 g/dL (13.0-16.5); Mean Corp Hgb Conc 31.6 g/dL (32-36); Mean Corpuscular Hgb 29.2 pg (27.0-32.0); Mean Corpuscular Volume 92.4 fL (80-94); Mean Platelet Vol. 11.9 fl (6.2-12.0); Platelet Count 121 K/mm3 (150-450); RBC Distribution Width CV 16.1 % (11.6-14.6); RBC Distribution Width SD 55.4 fl (35.1-43.9); Red Blood Count 3.67 M/mm3 (4.6-6.2)
[2023-06-24 03:42] LABS: ALB/GLOB Ratio 0.6 RATIO (0.9-2.4); AST(SGOT) 15 U/L (15-37); Alanine Aminotransfer ALT/SGPT 11 U/L (16-61); Albumin, Serum 2.2 g/dL (3.2-5.0); Alkaline Phosphatase 55 U/L (45-117); Anion Gap 6 (5-15); BUN 36 mg/dL (7-18); BUN/Creat Ratio 13.8 RATIO (10-20); Chloride 113 mmol/L (98-107); EST Glomerular Filtration Rate 26 mL/min (>60); Est Glom Filt Rate - Afr Amer 31 mL/min (>60); Estimated Creatinine Clearance 26.49 ml/min; Globulin 3.7 g/dL (2.2-4.2); Glucose 118 mg/dL (74-106); Potassium 4.1 mmol/L (3.5-5.1); Protein, Total 5.9 g/dL (6.4-8.2); Sodium Level 141 mmol/L (136-145)
[2023-06-24 04:03] LABS: Ferritin 103 ng/mL (26-388); Iron 17 ug/dL (65-175); Iron Binding Capacity,Total 198 ug/dL (250-450); PERCENT IRON SATURATION 8.6 % (15.0-55.0)
[2023-06-24] MEDS: HEPARIN/D5w 25,000 UNITS 25,000 UNITS/250 ML IV.SOLN. 12 UNITS CONT INF (04:06)
[2023-06-24] MEDS: Piperacil/Tazobactam 3.375 GM in 0.9% Normal Saline (50mL MB+) 50 ML IV ×2 (05:31→21:35)
[2023-06-24] MEDS: Levothyroxine 175 MCG Tablet PO (05:33)
[2023-06-24 06:05] LABS: Vitamin B12 404 pg/mL (211-911)
[2023-06-24] MEDS: Ipratropium/Albuterol Sulfate 3 ML AMPUL.NEB INHALATION ×3 (07:09→19:42)
--- NOTE | 2023-06-24 07:12 | PN.CC_ITS ---
Assessment & Plan Assessment/Plan (1) Severe sepsis with acute organ dysfunction: (2) Complicated urinary tract infection: (3) Encephalopathy due to infection: PLAN: Plan RECOMMENDATIONS: 1. Continue empiric antibiotics pending cultures 2. Walking oximetry prior to discharge 3. Monitor for ongoing emesis 4. Wean oxygen as tolerated 5. Hemodynamically stable on minimal nasal cannula. Will sign off from a critical care perspective IMPRESSIONS: 1. Sepsis secondary to E. coli UTI Patient was significant penile defect and findings suggestive of UTI. Cultures are growing E. coli, but sensitivities are currently pending. Patient would be at high risk for acute cystitis given urologic defects. Patient is currently on empiric antibiotics. Doubt patient will require pressors given hemodynamic stability for over 24 hours. Lower clinical suspicion of acute aspiration as an etiology, but this could be possible. CT of the abdomen does show evidence of enteritis, but CT scan is more suggestive of atelectasis. 2. Acute left lower extremity DVT Patient should be placed on a heparin drip for now. Likely okay to transition to a 10 a inhibitor from my perspective. Patient may have an element of PE leading to current hypoxia and atelectasis. 3. Possible acute kidney injury Patient presented with an elevated creatinine of 2.37, but BUN is sugge stive of intrinsic dysfunction. Patient has received significant volume resuscitation. Will continue to monitor. No significant improvement following sepsis fluids. Clinical suspicion patient may have chronic kidney dysfunction, but this would have to be confirmed with old records versus continued levels of creatinine. 4. History of colon cancer/AAA/hypothyroidism/debility Complicates care, management and recovery. Patient will be seen by PT/OT to work on ambulation and strength training. Patient may need dietitian advice for weight loss once mental status improves. Subjective Subjective Patient did well overnight. No acute issues were reported. Patient's blood pressures have been marginal, but no boluses or interventions have been required. Patient subjectively feels improved compared to yesterday. Patient is still requiring 3 L nasal cannula to maintain saturations. Patient was seen by urology and no intervention is required at this time. Objective Data Objective Data Vital Signs: Vital Signs Temp Pulse Resp BP Pulse Ox O2 Del Method O2 Flow Rate 36.6 C 94 16 109/63 95 Nasal Cannula 3 06/24/23 07:00 06/24/23 07:00 06/24/23 07:00 06/24/23 07:00 06/24/23 07:00 06/24/23 07:00 06/24/23 07:00 Oxygen Flow Rate (L/min) 3 Oxygen Delivery Method Nasal Cannula Weight: 85.9 kg Body Mass Index (BMI) 29.7 Intake & Output: Intake and Output for Last 24 Hours 06/22/23 06/23/23 06/24/23 23:59 23:59 23:59 Intake Total 3282.5 / 3282.5 2998.75 / 2998.75 393.95 / 393.95 Output Total 2150 / 2150 350 / 350 Balance 3282.5 / 3282.5 848.75 / 848.75 43.95 / 43.95 Lab / Micro Data Attestation: I reviewed the patient's lab results. 06/24/23 03:10 06/24/23 03:10 Labs: Laboratory Results - last 24 hr 06/23/23 01:30: Hemoglobin A1c 7.1 H 06/23/23 06:54: POC Glucose 208 H 06/23/23 06:59: Sodium 140, Potassium 4.1, Chloride 110 H, Carbon Dioxide 20.0 L , Anion Gap 10, BUN 33 H, Creatinine 2.47 H, Estim Creat Clear Calc 27.03, Est GFR (MDRD) Af Amer 33 L, Est GFR (MDRD) Non-Af 27 L, BUN/Creatinine Ratio 13.4, Glucose 226 H, Calcium 7.9 L, Phosphorus 3.3, Magnesium 1.7, Total Bilirubin 0.70, AST 14 L, ALT 9 L, Alkaline Phosphatase 63, Total Protein 6.5, Albumin 2.6 L, Globulin 3.9, Albumin/Globulin Ratio 0.7 L 06/23/23 12:57: POC Glucose 146 H 06/23/23 13:35: APTT 62.6 H 06/23/23 17:22: POC Glucose 113 H 06/23/23 18:20: APTT 62.4 H 06/23/23 20:10: POC Glucose 170 H 06/24/23 00:05: APTT 52.5 H 06/24/23 03:10: WBC 15.0 H, RBC 3.67 L, Hgb 10.7 L, Hct 33.9 L, MCV 92.4, MCH 29.2, MCHC 31.6 L D, RDW Std Deviation 55.4 H, RDW Coeff of Yanira 16.1 H, Plt Count 121 L, MPV 11.9, Sodium 141, Potassium 4.1, Chloride 113 H, Carbon Dioxide 22.0, Anion Gap 6, BUN 36 H, Creatinine 2.60 H, Estim Creat Clear Calc 26.49, Est GFR (MDRD) Af Amer 31 L, Est GFR (MDRD) Non-Af 26 L, BUN/Creatinine Ratio 13.8, Glucose 118 H, Calcium 8.0 L, Iron 17 L, TIBC 198 L, Iron Saturation 8.6 L , Ferritin 103, Total Bilirubin 0.60, AST 15, ALT 11 L, Alkaline Phosphatase 55, Total Protein 5.9 L, Albumin 2.2 L, Globulin 3.7, Albumin/Globulin Ratio 0.6 L, Vitamin B12 404, Folate 10.10 Micro: Microbiology 06/23/23 02:05 Nasal Secretion MRSA (PCR) - Final Meth. resistant Staph. aureus 06/22/23 20:25 Urine, Random Urine Culture - Preliminary Presumptive E. coli 06/23/23 02:05 Urine Catheter - Maddox Legionella Antigen - Final 06/23/23 02:05 Urine Catheter - Maddox Streptococcus pneumoniae Antigen (M - Final 06/22/23 20:55 Mucosa - Nasopharyngeal SARS-CoV-2, Influenza & RSV (PCR) - Final Radiography Diagnostic Testing: Radiology Impression Gallbladder Ultrasound 06/23/23 03:42 IMPRESSION: Hepatomegaly. Multiple gallstones. Mild right hydronephrosis. Electronically Signed: Nathaniel Araya MD at 15:44 EDT , Venous Doppler Study 06/23/23 08:10 Interpretation Summary Acute deep venous thrombosis left common femoral, femoral, and soleus veins. Patent, compressible bilateral great saphenous veins. Ordering Physician: Kulwinder De La O Referring Physician: Jenae Franco Performed By: Denice Hudson RVT Rhythm Strip Rhythm Strip: Sinus Rhythm Rate: 86 Ectopy: PVC(s) (Few to occasional) Physical Exam Const alert and oriented x3 Constitutional Narrative: RASS 0. Answers appropriately. General Appearance: cooperative HEENT normocephalic and head/scalp atraumatic Eyes PERRL, EOMs intact bilaterally and conjunctivae normal Neck no lymphadenopathy and supple Resp Auscultation: diminished lung sounds; Negative for rales, rhonchi or wheezes Cardio regular rate, regular rhythm, S1 normal heart sound, S2 normal heart sound, no murmurs, no rub and no gallops GI normal to inspection, nondistended, normoactive bowel sounds, soft to palpation and non-tender GI Narrative: Ileostomy noted. 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 No discharge noted. Neuro CN's II-XII intact bilaterally, moves all extremities and no focal motor deficits Sensorium / Orientation: alert Speech: speech normal Psych affect normal Charges/Coding Visit Charges Inpatient E&M: 87461 Subs Hosp L2
[2023-06-24 08:09] LABS: Partial Thromboplast Time 65.2 Seconds (24.1-36.2)
[2023-06-24] MEDS: Menthol/Lanolin/Calamine/Znox 113 GM Tube 1 APPLIC TOPICAL ×2 (09:24→21:30)
[2023-06-24] MEDS: Aspirin E.C. 81 MG Tablet PO (09:24)
[2023-06-24] MEDS: Insulin Lispro 100 UNIT/ML INSULN.PEN SC ×3 (09:24→21:34)
[2023-06-24] MEDS: Finasteride 5 MG Tablet PO (09:25)
[2023-06-24] MEDS: Nystatin Powder 15gm Bottle 1 APPLIC TOPICAL ×2 (09:25→21:31)
[2023-06-24] MEDS: Fenofibrate 145 MG Tablet PO (09:25)
[2023-06-24] MEDS: Pantoprazole Sodium 40 MG Tablet PO (09:31)
[2023-06-24 09:46] LABS: Bedside Glucose 152 mg/dL (74-106)
--- NOTE | 2023-06-24 10:22 | CASEMGMT ---
Addendum entered by Dennis Crump 06/24/23 10:48: [facility] calls this RN CM back at this time. Brooksi states that the pt is currently active with for the [facility] and is seen once per month for that. Jaleesa states that PT D/C the pt last week. Cori states that they are able to continue care for this pt once he is DC from [facility]. Cori updated that the pt will also need PT, OT added if the pt does DC home. PLAN: Pt is currently refusing SNF and wants to DC home with the continuation of HHC. Pt daughter and son are able to provide support to the pt as well. Per rounds this morning, ID has been consulted. Will follow in the case that the pt would need IV ATBs at home. Dr. De La O states that the pt will be here through the weekend. Will follow. Original Note: LAQUITA MONTANEZ to pt room at this time regarding DC planning. Pt is A&Ox3 at this time. Pt states that he wants to DC home with [facility]. Pt was recently active with [facility] until last week per the pt Daughter (see initial assessment). Pt states that he would like to continue their care once the pt is DC. TC to [facility] at this time and no answer, VM left. Awaiting return call.
--- NOTE | 2023-06-24 10:34 | CON.PCM.ID_ITS ---
Assessment & Plan Assessment/Plan (1) Encephalopathy due to infection: (2) Acute hypoxemic respiratory failure: (3) Severe sepsis with acute organ dysfunction: PLAN: Concern for L sided pneumonia, enteritis, L foot/ankle cellulitis, and uti. Mental status improved. FIOR on CKD is worsening. UAgs neg. Cont empiric vanc/zosyn, will decrease zosyn to q12h. Will follow, thank you HPI Consult Data Date of Consult: 06/24/23 HPI Narrative Reason for Consultation: sepsis HPI Narrative: EMELIA JOHNSON, is a 73 M with h/o colon cancer and prior ileostomy, chronic ross in place, presented 06/21 with 2-3 days confusion, n/v, dyspnea. Denies any urinary pain, no abd pain, no cough or SOB, no fever or chills. Reports several days L foot and ankle pain, redness, swelling. No drainage. Came to ED, admitted to icu, on vanc/zosyn, feeling better this AM. Full ROS performed and neg except as noted above. PENDING SALE TO [facility] Medical History Colon cancer Home Medications amlodipine 10 mg tablet 10 mg PO DAILY 06/22/23 [History Last Taken Unknown] ferrous sulfate 325 mg (65 mg iron) tablet 325 mg PO DAILY 06/22/23 [History Last Taken Unknown] finasteride 5 mg tablet 5 mg PO DAILY 06/22/23 [History Last Taken Unknown] levothyroxine 175 mcg tablet 175 mcg PO 06/22/23 [History Last Taken Unknown] Allergy/AdvReac Type Severity Reaction Status Date / Time No Known Allergies Allergy Verified 06/22/23 20:14 Social History Smoking Status: Former smoker Physical Exam Const alert and no apparent distress Constitutional Narrative: oriented General Appearance: cooperative HEENT normocephalic and head/scalp atraumatic Eyes PERRL and EOMs intact bilaterally Neck supple and No nodes Resp normal air movement and clear to auscultation bilaterally Cardio regular rate and regular rhythm GI soft to palpation, non-tender and non-distended Extremity General Extremity: edema Skin Skin Narrative: L foot and ankle redness, warmth, swelling, mild tenderness Neuro CN's II-XII intact bilaterally Lab / Micro Data Attestation: I reviewed the patient's lab results. 06/24/23 03:10 06/24/23 03:10 Labs: Laboratory Results - last 24 hr 06/23/23 01:30: Hemoglobin A1c 7.1 H 06/23/23 12:57: POC Glucose 146 H 06/23/23 13:35: APTT 62.6 H 06/23/23 17:22: POC Glucose 113 H 06/23/23 18:20: APTT 62.4 H 06/23/23 20:10: POC Glucose 170 H 06/24/23 00:05: APTT 52.5 H 06/24/23 03:10: WBC 15.0 H, RBC 3.67 L, Hgb 10.7 L, Hct 33.9 L, MCV 92.4, MCH 29.2, MCHC 31.6 L D, RDW Std Deviation 55.4 H, RDW Coeff of Yanira 16.1 H, Plt Count 121 L, MPV 11.9, Sodium 141, Potassium 4.1, Chloride 113 H, Carbon Dioxide 22.0, Anion Gap 6, BUN 36 H, Creatinine 2.60 H, Estim Creat Clear Calc 26.49, Est GFR (MDRD) Af Amer 31 L, Est GFR (MDRD) Non-Af 26 L, BUN/Creatinine Ratio 13.8, Glucose 118 H, Calcium 8.0 L, Iron 17 L, TIBC 198 L, Iron Saturation 8.6 L , Ferritin 103, Total Bilirubin 0.60, AST 15, ALT 11 L, Alkaline Phosphatase 55, Total Protein 5.9 L, Albumin 2.2 L, Globulin 3.7, Albumin/Globulin Ratio 0.6 L, Vitamin B12 404, Folate 10.10 06/24/23 07:20: APTT 65.2 H 06/24/23 09:23: POC Glucose 152 H Micro: Microbiology 06/22/23 20:25 Urine, Random Urine Culture - Final Presumptive E. coli 06/23/23 02:05 Nasal Secretion MRSA (PCR) - Final Meth. resistant Staph. aureus Rhythm Strip Rhythm Strip: Sinus Rhythm Rate: 86 Ectopy: PVC(s) (Few to occasional) Imaging Radiology Impression Gallbladder Ultrasound 06/23/23 03:42 IMPRESSION: Hepatomegaly. Multiple gallstones. Mild right hydronephrosis. Electronically Signed: Nathaniel Araya MD at 15:44 EDT , Venous Doppler Study 06/23/23 08:10 Interpretation Summary Acute deep venous thrombosis left common femoral, femoral, and soleus veins. Patent, compressible bilateral great saphenous veins. Ordering Physician: Kulwinder De La O Referring Physician: Jenae Franco Performed By: Denice Hudson RVT
[2023-06-24] MEDS: Vancomycin IV 1,000 MG/200 ML BAG 200 MG IV (11:01)
[2023-06-24 11:25] LABS: Bedside Glucose 175 mg/dL (74-106)
--- NOTE | 2023-06-24 13:20 | PCM.PN.HOSP ---
Reason for Visit Reason for Visit: Diagnoses Sepsis, unspecified organism (06/23/23) Unspecified infectious disease (06/23/23) Acidosis, unspecified (06/23/23) Other encephalopathy (06/23/23) Acute embolism and thrombosis of unspecified deep veins of unspecified lower extremity (06/23/23) Acute respiratory failure with hypoxia (06/23/23) Noninfective gastroenteritis and colitis, unspecified (06/23/23) Calculus of gallbladder without cholecystitis without obstruction (06/23/23) Acute kidney failure, unspecified (06/23/23) Urinary tract infection, site not specified (06/23/23) Severe sepsis without septic shock (06/23/23) Unspecified foreign body in respiratory tract, part unspecified causing other injury, initial encounter (06/23/23) Subjective Subjective No acute events overnight. Patient seen at bedside this morning. Nurse also at bedside changing his colostomy bag now. Patient was much more awake and alert appearing this morning compared to yesterday. He was alert and oriented x 3 and answering all questions appropriately. He reported mild left lower extremity pain in both the upper and lower leg. Otherwise denied any other acute pain or discomfort. Denies any chest pain or shortness of breath at rest. Denies any abdominal pain or discomfort. No other acute concerns at this time. Objective Data Objective Data Vital Signs: Vital Signs Temp Pulse Resp BP Pulse Ox O2 Del Method O2 Flow Rate 97.8 F 86 20 H 95/56 L 96 Nasal Cannula 2 06/24/23 11:00 06/24/23 13:14 06/24/23 13:14 06/24/23 11:00 06/24/23 11:00 06/24/23 11:00 06/24/23 11:00 Oxygen Flow Rate (L/min) 2 Oxygen Delivery Method Nasal Cannula Weight: 85.9 kg Body Mass Index (BMI) 29.7 Intake & Output: Intake and Output for Last 24 Hours 06/22/23 06/23/23 06/24/23 23:59 23:59 23:59 Intake Total 3282.5 / 3282.5 2998.75 / 2998.75 692.95 / 692.95 Output Total 2150 / 2150 550 / 550 Balance 3282.5 / 3282.5 848.75 / 848.75 142.95 / 142.95 Lab / Micro Data 06/24/23 03:10 06/24/23 03:10 Labs: Laboratory Results - last 24 hr 06/23/23 12:57: POC Glucose 146 H 06/23/23 13:35: APTT 62.6 H 06/23/23 17:22: POC Glucose 113 H 06/23/23 18:20: APTT 62.4 H 06/23/23 20:10: POC Glucose 170 H 06/24/23 00:05: APTT 52.5 H 06/24/23 03:10: WBC 15.0 H, RBC 3.67 L, Hgb 10.7 L, Hct 33.9 L, MCV 92.4, MCH 29.2, MCHC 31.6 L D, RDW Std Deviation 55.4 H, RDW Coeff of Yanira 16.1 H, Plt Count 121 L, MPV 11.9, Sodium 141, Potassium 4.1, Chloride 113 H, Carbon Dioxide 22.0, Anion Gap 6, BUN 36 H, Creatinine 2.60 H, Estim Creat Clear Calc 26.49, Est GFR (MDRD) Af Amer 31 L, Est GFR (MDRD) Non-Af 26 L, BUN/Creatinine Ratio 13.8, Glucose 118 H, Calcium 8.0 L, Iron 17 L, TIBC 198 L, Iron Saturation 8.6 L, Ferritin 103, Total Bilirubin 0.60, AST 15, ALT 11 L, Alkaline Phosphatase 55, Total Protein 5.9 L, Albumin 2.2 L, Globulin 3.7, Albumin/Globulin Ratio 0.6 L, Vitamin B12 404, Folate 10.10 06/24/23 07:20: APTT 65.2 H 06/24/23 09:23: POC Glucose 152 H 06/24/23 11:03: POC Glucose 175 H Micro: Microbiology 06/23/23 02:05 Urine Catheter - Maddox Urine Culture - Preliminary Presumptive E. coli 06/23/23 02:05 Urine Catheter - Maddox Legionella Antigen - Final 06/23/23 02:05 Urine Catheter - Maddox Streptococcus pneumoniae Antigen (M - Final 06/22/23 20:25 Urine, Random Urine Culture - Final Presumptive E. coli 06/23/23 02:05 Nasal Secretion MRSA (PCR) - Final Meth. resistant Staph. aureus 06/22/23 20:55 Mucosa - Nasopharyngeal SARS-CoV-2, Influenza & RSV (PCR) - Final Radiography Diagnostic Testing: Radiology Impression Gallbladder Ultrasound 06/23/23 03:42 IMPRESSION: Hepatomegaly. Multiple gallstones. Mild right hydronephrosis. Electronically Signed: Nathaniel Araya MD at 15:44 EDT , Rhythm Strip Rhythm Strip: Sinus Rhythm Rate: 86 Ectopy: PVC(s) (Few to occasional) Physical Exam Const alert and no apparent distress Constitutional Narrative: Elderly male, chronically ill-appearing, much more alert and oriented today, sitting up fairly comfortably in bed, conversing normally, in no acute distress. General Appearance: cooperative and comfortable HEENT normocephalic, head/scalp atraumatic, hearing grossly normal bilaterally and nasal mucous membranes and turbinates normal HEENT Narrative: Poor dentition. Eyes PERRL, EOMs intact bilaterally and conjunctivae normal Neck full ROM Chest inspection of chest normal Resp normal respiratory effort, normal air movement, no use of accessory muscles and clear to auscultation bilaterally Resp Narrative: Breathing comfortably on 2 L nasal cannula with good oxygen saturations. Mildly decreased breath sounds bilaterally throughout, no wheezing or crackles noted. Cardio regular rate, regular rhythm, no murmurs and peripheral pulses 2+ throughout GI normal to inspection, nondistended, normoactive bowel sounds, soft to palpation, non-tender and non-distended GI Narrative: Colostomy noted with moderate amount of brown, normal-appearing stool output. Back/Spine normal ROM Extremity full ROM Extremity Narrative: +1 to +2 left lower extremity edema noted. No erythema noted. No tenderness to palpation. Skin no rashes or lesions noted Neuro no focal motor deficits and no sensory deficits noted Speech: speech normal Psych affect normal Assessment & Plan Assessment/Plan (1) Enteritis: (2) Encephalopathy due to infection: (3) Complicated urinary tract infection: (4) Severe sepsis with acute organ dysfunction: (5) FIOR (acute kidney injury): (6) DVT (deep venous thrombosis): PLAN: Plan Patient is a 73-year-old male who presented to [facility] ED on 06/22/2023 with altered mentation, nausea/vomiting and worsening shortness of breath. 1. Sepsis without shock suspected secondary to complicated UTI with possible aspiration pneumonia and possible gastroenteritis ? Presented with acute encephalopathy, borderline hypotension, tachycardia, WBC count 27, lactic acid 4.6, FIOR and suspected urinary source of infection with possible pneumonia and gastroenteritis as well; thus met sepsis criteria on admit. ? CT abdomen pelvis showed dilated small bowel concerning for enteritis versus ileus, moderate right hydroureteronephrosis with no ureteral calculus, urinary bladder wall thickening concerning for acute cystitis, left lower lobe consolidation concerning for pneumonia, cholelithiasis with stone in gallbladder neck. Chest x-ray with increased left basilar atelectasis versus infiltrate. Gallbladder ultrasound with multiple gallstones and hepatomegaly but no concern for cholelithiasis. ? Patient also noted on exam to have concern for left lower extremity cellulitis extending up into the lower abdomen. ? UA with 500 leukocyte esterase, negative nitrates, 4+ bacteria. MRSA nasal swab positive. Respiratory PCR panel negative. Urine culture growing greater than 100,000 present of E. coli, sensitivities pending. Blood cultures pending. ? Received approximately 30 cc/kg of IV fluids on admission. Per kosher dietary service manager, lower clinical suspicion of acute aspiration as CT scan is more suggestive of atelectasis. CT scan findings do appear consistent with enteritis. ? Vaccine Key Customer Leader and infectious disease following. Continue IV vancomycin and Zosyn for now. Blood pressures continue to be low normal on 06/23, has not needed pressors. Follow-up blood cultures and final urine culture results. 2. Acute encephalopathy suspected secondary to sepsis, improved Presented with worsening confusion and lethargy per family. No focal neuro findings on exam, no recent falls, not on anticoagulation, low concern for intracranial pathology so no head imaging was obtained. Patient with mild to moderate improvement noted on hospital day 2 after heavy IV fluid resuscitation and treat with antibiotics for sepsis as noted above. ? Patient alert and oriented x 3 on 06/23, appears back to baseline. Continue to avoid deliriogenic medications. 3. Acute left lower extremity DVT with suspected PE, mild hypoxia Noted to have left lower extremity swelling on admission as well as new onset mild hypoxia. Venous duplex ultrasound on 06/22 showed acute DVT in left common femoral, femoral and soleus veins. Could not do CTA chest due to FIOR as noted below, but presume the patient does have PE as well given new oxygen requirement. Echo on 06/23 showed normal EF, no concerning findings. ? Continue heparin drip for now. Appreciate cardiology recommendations. Wean supplemental oxygen as able. 4. FIOR on CKD stage III Creatinine 2.37 on admit, baseline creatinine appears to be around 1.5-1.7. Suspect primarily prerenal FIOR with possibly some degree of ATN in setting of sepsis as noted above. Maddox catheter in place, has had adequate urine output to this point, no concern for postobstructive etiology. ? Creatinine 2.60 on 06/23, mildly worsened from previous. Has had last urine output in previous days. Continue to monitor BMP daily urine output. Can consider nephrology consult as needed. 5. 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 Previously followed with urology in [place]. Has history of chronic urinary retention with chronic Maddox catheter. Patient noted to have apparent erosion of the Maddox catheter through the penis with another opening in the penis noted that the catheter is coming from. ? Urology evaluated on 06/22. 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 Maddox catheter was exchanged on admission through the hypospadia. Urology noted that the catheter was draining well, recommended continuing catheter with no further changes in management at this time. Continue outpatient urology follow-up. 6. Chronic debility Lives with his daughter and has debility at baseline, uses a walker for ambulation and is currently being followed by home health care services. ? PT/OT/case patient following. Likely home with home health care versus SNF on discharge. 7. Chronic anemia Hemoglobin 13.8 on admit, decreased to hemoglobin 10.0 on hospital day 2 after significant IV fluid resuscitation. On review of outpatient labs, appears that baseline hemoglobin is around 10-11. No active signs of bleeding noted. Iron studies consistent with iron deficiency anemia. B12 and folate normal. ? Trend CBC daily. Can consider IV iron infusions in the future once patient's infection has resolved. 8. Cholelithiasis ? Noted on CT abdomen pelvis and gallbladder ultrasound on admission. LFTs normal, no abdominal pain noted. No concern for acute cholecystitis. No GI or general surgery needs at this time, can establish with them in the outpatient setting as needed. Chronic medical conditions: ? Type 2 diabetes mellitus: Does not appear to be on any home medications. A1c 7.1% on admit. Okay for sliding scale insulin while inpatient. ? Hypertension: On home amlodipine. ? Hyperlipidemia: Continue home statin and fenofibrate. ? BPH with obstructive symptoms: Continue home finasteride. ? Hypothyroidism: TSH 7.75, free T4 low normal at 0.81 on admit. Continue home Synthroid. Recommend repeat labs in outpatient setting in 4 to 6 weeks. ? History of stroke with residual left-sided weakness: Continue home aspirin. ? History of rectal cancer s/p chemotherapy and radiation therapy and resection of left colon and entire rectum with permanent colostomy placement in 2020: Continue outpatient follow-up with oncology. ? History of PAD s/p aortobifemoral bypass in 2013: Continue home aspirin as above. ? History of AAA without rupture: Outpatient follow-up. DVT prophylaxis: Heparin drip CODE STATUS: Full code, verified Expected disposition: Home with home health care versus SNF, TBD Total clinical time spent by myself addressing the patient's medical issues, reviewing all the data, and collaborating with patient's care team: 35 minutes. Charges/Coding Visit Charges Inpatient E&M: 69553 Subs Hosp L2
[2023-06-24 14:05] LABS: Partial Thromboplast Time 42.3 Seconds (24.1-36.2)
[2023-06-24 17:26] LABS: Bedside Glucose 145 mg/dL (74-106)
[2023-06-24 20:51] LABS: Partial Thromboplast Time 57.3 Seconds (24.1-36.2)
[2023-06-24] MEDS: Atorvastatin Calcium 40 MG Tablet PO (21:31)
[2023-06-24 22:45] LABS: Bedside Glucose 151 mg/dL (74-106)
[2023-06-25] VITALS (9 sets, daily range): BP systolic 118–146; BP diastolic 67–86; PULSE 81–98; RESP 14–20; TEMP 36.1–36.4; O2SAT 92–97; BMI 29.7
[2023-06-25] MEDS: HEPARIN/D5w 25,000 UNITS 25,000 UNITS/250 ML IV.SOLN. 13 UNITS CONT INF (00:19)
[2023-06-25 03:22] LABS: Hematocrit 35.5 % (40-54); Hemoglobin 10.9 g/dL (13.0-16.5); Mean Corp Hgb Conc 30.7 g/dL (32-36); Mean Corpuscular Hgb 28.5 pg (27.0-32.0); Mean Corpuscular Volume 92.9 fL (80-94); Mean Platelet Vol. 12.1 fl (6.2-12.0); Platelet Count 142 K/mm3 (150-450); RBC Distribution Width CV 16.1 % (11.6-14.6); RBC Distribution Width SD 54.3 fl (35.1-43.9); Red Blood Count 3.82 M/mm3 (4.6-6.2); White Blood Count 8.1 K/mm3 (4.4-11.0)
[2023-06-25 03:38] LABS: Partial Thromboplast Time 63.7 Seconds (24.1-36.2)
[2023-06-25 03:45] LABS: ALB/GLOB Ratio 0.5 RATIO (0.9-2.4); AST(SGOT) 26 U/L (15-37); Alanine Aminotransfer ALT/SGPT 12 U/L (16-61); Albumin, Serum 2.3 g/dL (3.2-5.0); Alkaline Phosphatase 58 U/L (45-117); Anion Gap 5 (5-15); BUN 30 mg/dL (7-18); BUN/Creat Ratio 11.2 RATIO (10-20); Calcium,Total 8.4 mg/dL (8.5-10.1); Chloride 114 mmol/L (98-107); Creatinine, Serum 2.68 mg/dL (0.70-1.30); EST Glomerular Filtration Rate 25 mL/min (>60); Est Glom Filt Rate - Afr Amer 30 mL/min (>60); Globulin 4.4 g/dL (2.2-4.2); Glucose 147 mg/dL (74-106); Potassium 4.6 mmol/L (3.5-5.1); Protein, Total 6.7 g/dL (6.4-8.2); Sodium Level 141 mmol/L (136-145)
[2023-06-25] MEDS: 0.9% Saline Lock 10 ML Syringe IV (06:10)
[2023-06-25] MEDS: Levothyroxine 175 MCG Tablet PO (06:10)
[2023-06-25] MEDS: Ipratropium/Albuterol Sulfate 3 ML AMPUL.NEB INHALATION ×3 (06:52→19:05)
[2023-06-25] MEDS: Nystatin Powder 15gm Bottle 1 APPLIC TOPICAL (08:53)
[2023-06-25] MEDS: Aspirin E.C. 81 MG Tablet PO (08:53)
[2023-06-25] MEDS: Menthol/Lanolin/Calamine/Znox 113 GM Tube 1 APPLIC TOPICAL (08:53)
[2023-06-25] MEDS: Vancomycin Trough/Random Due 1 LAB MC ×2 (08:53→10:23)
[2023-06-25] MEDS: Finasteride 5 MG Tablet PO (08:54)
[2023-06-25] MEDS: Fenofibrate 145 MG Tablet PO (08:54)
[2023-06-25] MEDS: Pantoprazole Sodium 40 MG Tablet PO (08:54)
[2023-06-25 09:16] LABS: Bedside Glucose 131 mg/dL (74-106)
[2023-06-25] MEDS: Piperacil/Tazobactam 3.375 GM in 0.9% Normal Saline (50mL MB+) 50 ML IV ×2 (10:23→22:30)
--- NOTE | 2023-06-25 11:01 | PCM.RX.CS ---
Consult Antibiotic Management Pharmacy has been consulted to manage selected antibiotic: Vancomycin Type of Intervention Type of Consult: Follow-up Suspected Infection Suspected Infection: Sepsis and Other (UTI) Labs Labs: Sodium 141 mmol/L (136-145) 06/25/23 03:08 Potassium 4.6 mmol/L (3.5-5.1) 06/25/23 03:08 Chloride 114 mmol/L (98-107) H 06/25/23 03:08 Carbon Dioxide 22.0 mmol/L (21.0-32.0) 06/25/23 03:08 Anion Gap 5 (5-15) 06/25/23 03:08 BUN 30 mg/dL (7-18) H 06/25/23 03:08 Creatinine 2.68 mg/dL (0.70-1.30) H 06/25/23 03:08 Est GFR (MDRD) Af Amer 30 mL/min (>60) L 06/25/23 03:08 Est GFR (MDRD) Non-Af 25 mL/min (>60) L 06/25/23 03:08 BUN/Creatinine Ratio 11.2 RATIO (10-20) 06/25/23 03:08 Glucose 147 mg/dL (74-106) H 06/25/23 03:08 Vancomycin Trough 17.0 ug/mL (5.0-15.0) H 06/25/23 10:10 Microbiology Microbiology: Microbiology 06/23/23 02:05 Urine Catheter - Maddox Urine Culture - Final Presumptive E. coli 06/23/23 02:05 Urine Catheter - Maddox Legionella Antigen - Final 06/23/23 02:05 Urine Catheter - Maddox Streptococcus pneumoniae Antigen (M - Final 06/22/23 20:25 Urine, Random Urine Culture - Final Presumptive E. coli 06/23/23 02:05 Nasal Secretion MRSA (PCR) - Final Meth. resistant Staph. aureus 06/22/23 20:55 Mucosa - Nasopharyngeal SARS-CoV-2, Influenza & RSV (PCR) - Final Pharmacy Plan for Drug Dosing Pharmacy Plan for Drug Dosing: VANCOMYCIN LEVEL RECEIVED Current Vancomycin Dose: 1000MG Q24 Number of Doses Received: 2 Vancomycin Level: 17 MG/DL Hours Since Last Dose: 23 Renal Function: SCR 2.68 MG/DL, CRCL 25.7 ML/MIN Renal Function Trend: INCREASED Lab/Micro: BCX PENDING, URINE CX E COLI Vancomycin Plan/Comments: 23 hour trough is therapeutic (goal 15-20 mg/dL), will continue current dosing at this time and get a trough in 2 days. Pending Level: 06/27/23 @ 1030 Pharmacy Service will continue to monitor and adjust dosing as required.
[2023-06-25] MEDS: Vancomycin IV 1,000 MG/200 ML BAG 200 MG IV (11:51)
--- NOTE | 2023-06-25 12:08 | CASEMGMT ---
states that he anticipates pt staying here thru the weekend. Green sheet placed on chart for HH and O2 in the case that the pt does DC over the weekend.
[2023-06-25 12:29] LABS: Bedside Glucose 132 mg/dL (74-106)
--- NOTE | 2023-06-25 14:25 | PCM.PN.ID ---
Physical Exam Narrative Feeling better. No dyspnea, no fever Const alert and no apparent distress Resp clear to auscultation bilaterally Cardio regular rate and regular rhythm GI soft to palpation, non-tender and non-distended Skin no rashes or lesions noted ID ID: Route of nutrition/ use of supplements: [] Nutritional Intake: [] IV Site: [] Maddox Catheter: [] Assessment & Plan Assessment/Plan (1) Encephalopathy due to infection: (2) Acute hypoxemic respiratory failure: (3) Severe sepsis with acute organ dysfunction: PLAN: Concern for L sided pneumonia, enteritis, L foot/ankle cellulitis, and uti. Mental status much improved. FIOR on CKD is slightly worsening. UAgs neg. Cont empiric vanc/zosyn. Ucx with ecoli. Will follow
[2023-06-25 17:26] LABS: Bedside Glucose 130 mg/dL (74-106)
--- NOTE | 2023-06-25 18:08 | PCM.PN.HOSP ---
Reason for Visit Reason for Visit: Diagnoses Sepsis, unspecified organism (06/23/23) Unspecified infectious disease (06/23/23) Acidosis, unspecified (06/23/23) Other encephalopathy (06/23/23) Acute embolism and thrombosis of unspecified deep veins of unspecified lower extremity (06/23/23) Acute respiratory failure with hypoxia (06/23/23) Noninfective gastroenteritis and colitis, unspecified (06/23/23) Calculus of gallbladder without cholecystitis without obstruction (06/23/23) Acute kidney failure, unspecified (06/23/23) Urinary tract infection, site not specified (06/23/23) Severe sepsis without septic shock (06/23/23) Unspecified foreign body in respiratory tract, part unspecified causing other injury, initial encounter (06/23/23) Subjective Subjective Patient was seen and examined today, he is currently on room air and he appears stable for transfer to PCU for further care. Objective Data Objective Data Vital Signs: Vital Signs Temp Pulse Resp BP Pulse Ox O2 Del Method O2 Flow Rate 97.4 F L 89 14 132/73 H 93 Room Air 2 06/25/23 16:48 06/25/23 16:48 06/25/23 16:48 06/25/23 16:48 06/25/23 16:48 06/25/23 16:48 06/25/23 06:52 Oxygen Flow Rate (L/min) 2 Oxygen Delivery Method Room Air Weight: 86 kg Body Mass Index (BMI) 29.7 Intake & Output: Intake and Output for Last 24 Hours 06/23/23 06/24/23 06/25/23 23:59 23:59 23:59 Intake Total 2998.75 / 2998.75 765.15 / 765.15 888.8 / 888.8 Output Total 2150 / 2150 1450 / 1800 2350 / 2350 Balance 848.75 / 848.75 -684.85 / -1034.85 -1461.2 / -1461.2 Lab / Micro Data 06/25/23 03:08 06/25/23 03:08 Labs: Laboratory Results - last 24 hr 06/24/23 20:13: APTT 57.3 H 06/24/23 21:33: POC Glucose 151 H 06/25/23 03:08: WBC 8.1, RBC 3.82 L, Hgb 10.9 L, Hct 35.5 L, MCV 92.9, MCH 28.5, MCHC 30.7 L, RDW Std Deviation 54.3 H, RDW Coeff of Yanira 16.1 H, Plt Count 142 L, MPV 12.1 H, APTT 63.7 H, Sodium 141, Potassium 4.6, Chloride 114 H, Carbon Dioxide 22.0, Anion Gap 5, BUN 30 H, Creatinine 2.68 H, Estim Creat Clear Calc 25.70, Est GFR (MDRD) Af Amer 30 L, Est GFR (MDRD) Non-Af 25 L, BUN/Creatinine Ratio 11.2, Glucose 147 H, Calcium 8.4 L, Total Bilirubin 0.40, AST 26, ALT 12 L, Alkaline Phosphatase 58, Total Protein 6.7, Albumin 2.3 L, Globulin 4.4 H, Albumin/Globulin Ratio 0.5 L 06/25/23 08:52: POC Glucose 131 H 06/25/23 10:10: Vancomycin Trough 17.0 H 06/25/23 11:49: POC Glucose 132 H 06/25/23 17:09: POC Glucose 130 H Micro: Microbiology 06/22/23 20:52 Blood Culture (Wb) - Right Hand Blood Culture - Preliminary No growth in 48 hours. 06/22/23 20:45 Blood Culture (Wb) - Left Hand Blood Culture - Preliminary No growth in 48 hours. 06/23/23 02:05 Urine Catheter - Maddox Urine Culture - Final Presumptive E. coli 06/23/23 02:05 Urine Catheter - Maddox Legionella Antigen - Final 06/23/23 02:05 Urine Catheter - Maddox Streptococcus pneumoniae Antigen (M - Final 06/22/23 20:25 Urine, Random Urine Culture - Final Presumptive E. coli 06/23/23 02:05 Nasal Secretion MRSA (PCR) - Final Meth. resistant Staph. aureus 06/22/23 20:55 Mucosa - Nasopharyngeal SARS-CoV-2, Influenza & RSV (PCR) - Final Rhythm Strip Rhythm Strip: Sinus Rhythm Rate: 86 Ectopy: PVC(s) (Few to occasional) Physical Exam Const alert, oriented x3 and no apparent distress Constitutional Narrative: Patient appears older than stated age General Appearance: cooperative, well kempt and well developed Orientation / Consciousness: awake, oriented to person and oriented to place HEENT normocephalic, head/scalp atraumatic and moist oral mucous membranes Eyes PERRL, EOMs intact bilaterally and conjunctivae normal Neck supple, no JVD, thyroid normal and no carotid bruits General: trachea midline Resp normal respiratory effort, no retractions, no use of accessory muscles and clear to auscultation bilaterally Auscultation: Negative for rales, rhonchi or wheezes Cardio regular rate, regular rhythm, S1 normal heart sound, S2 normal heart sound, no murmurs, no rub and no gallops GI normal to inspection, nondistended, normoactive bowel sounds, soft to palpation, non-tender and non-distended Extremity no clubbing, cyanosis or edema Skin no rashes or lesions noted General Skin Exam: no breakdown Neuro CN's II-XII intact bilaterally, no focal motor deficits and no sensory deficits noted Sensorium / Orientation: awake, alert, oriented to person and oriented to place Speech: speech normal Psych affect normal Assessment & Plan Assessment/Plan (1) DVT (deep venous thrombosis): PLAN: Plan 1. Severe sepsis secondary to acute cystitis associated with chronic Maddox catheter usage-E. coli, patient will remain on IV antibiotics #2 acute encephalopathy secondary to severe sepsis-patient is alert to self and place today, continue to give supportive care #3 acute left lower extremity DVT-patient will be placed on Eliquis starting tonight, heparin drip will be discontinued #4 possible left-sided pneumonia-infectious diseases has recommended continuing empiric Vanco and Zosyn #5 acute kidney injury on a backdrop of stage III chronic kidney disease, continue to monitor BMP #6 type 2 diabetes-patient's blood sugars will be monitored with fingerstick blood sugars, sliding scale insulin will be given if needed Total clinical time spent by myself addressing the patient's medical issues, reviewing all of his data, and collaborating with patient's care team: 50 minutes Charges/Coding Visit Charges Inpatient E&M: [id number] [facility] Hosp L3
[2023-06-25] MEDS: Acetaminophen 500 MG Tablet 1000 MG PO (18:33)
[2023-06-25] MEDS: APIXABAN 5 MG TABLET 10 MG PO (19:25)
[2023-06-25] MEDS: Atorvastatin Calcium 40 MG Tablet PO (22:35)
[2023-06-25 22:59] LABS: Bedside Glucose 148 mg/dL (74-106)
[2023-06-26 04:30] VITALS: BP 151/85; PULSE 86; RESP 18; TEMP 36.6; O2SAT 97
[2023-06-26 05:50] VITALS: BMI 29.4
[2023-06-26] MEDS: Levothyroxine 175 MCG Tablet PO (06:37)
[2023-06-26 07:00] LABS: Bedside Glucose 131 mg/dL (74-106)
[2023-06-26] MEDS: Ipratropium/Albuterol Sulfate 3 ML AMPUL.NEB INHALATION (07:24)
[2023-06-26 07:25] VITALS: PULSE 74; RESP 18; O2SAT 96
[2023-06-26 07:31] LABS: Anion Gap 7 (5-15); BUN 25 mg/dL (7-18); BUN/Creat Ratio 10.7 RATIO (10-20); Calcium,Total 9.2 mg/dL (8.5-10.1); Chloride 112 mmol/L (98-107); Creatinine, Serum 2.34 mg/dL (0.70-1.30); EST Glomerular Filtration Rate 29 mL/min (>60); Est Glom Filt Rate - Afr Amer 35 mL/min (>60); Estimated Creatinine Clearance 29.29 ml/min; Glucose 140 mg/dL (74-106); Potassium 3.9 mmol/L (3.5-5.1); Sodium Level 141 mmol/L (136-145)
[2023-06-26 08:53] VITALS: BP 128/78; PULSE 83; RESP 18; TEMP 36.5; O2SAT 95
[2023-06-26] MEDS: APIXABAN 5 MG TABLET 10 MG PO (08:57)
[2023-06-26] MEDS: Aspirin E.C. 81 MG Tablet PO (08:57)
[2023-06-26] MEDS: Pantoprazole Sodium 40 MG Tablet PO (08:57)
[2023-06-26] MEDS: Fenofibrate 145 MG Tablet PO (08:58)
[2023-06-26] MEDS: 0.9% Saline Lock 10 ML Syringe IV (09:01)
[2023-06-26] MEDS: Piperacil/Tazobactam 3.375 GM in 0.9% Normal Saline (50mL MB+) 50 ML IV (09:01)
[2023-06-26] MEDS: Nystatin Powder 15gm Bottle 1 APPLIC TOPICAL (09:13)
[2023-06-26] MEDS: Menthol/Lanolin/Calamine/Znox 113 GM Tube 1 APPLIC TOPICAL (09:13)
[2023-06-26] MEDS: Insulin Lispro 100 UNIT/ML INSULN.PEN SC (11:12)
[2023-06-26] MEDS: Vancomycin IV 1,000 MG/200 ML BAG 200 MG IV (11:13)
[2023-06-26 11:31] LABS: Bedside Glucose 155 mg/dL (74-106)
[2023-06-26 14:10] VITALS: BP 145/86; PULSE 80; RESP 16; TEMP 36.7; O2SAT 98
[2023-06-26] MEDS: Acetaminophen 500 MG Tablet 1000 MG PO (15:17)
--- NOTE | 2023-06-26 15:54 | CASEMGMT ---
LAQUITA MONTANEZ NOTE: Dr Vela states pt will be discharging home today and would like therapy @ home. LAQUITA MONTANEZ to room. Pt and verify they wish to resume w/SN w/[facility] and would like therapy added. WARREN order placed for SN and PT/OT added. Call placed to Oj @ [facility] and he was notified pt is discharging today and therapy has been added. Pt and family deny having other discharge needs or concerns. Carla JON LAQUITA CM
--- NOTE | 2023-06-26 15:57 | DCINST_ITS ---
Discharge Instructions Diet Discharge Diet: - (No added sugar diet) Activity Discharge Activity: Return to Normal Activity and Use Walker Weight Bearing Status: Full weight bearing Follow Up Care Test Results: Test results from this visit will be discussed in further detail at your follow- up appointment, if applicable. Discharge Plan Admission Admit Date/Time: 06/23/23 00:16 Primary Reason for Your Visit: Urinary tract infection, acute kidney injury Attending Provider: Aníbal Vela Primary Care Provider: Jenae Franco Consulting Providers: Luke Mims; Kulwinder De La O; Guilherme Tellez; Johnnie Logan; Marcy Vang; Liliane Gonzalez Instructions Additional Instructions / Restrictions: Reduce your amlodipine to one half of a 10 mg pill daily, start on 06/26/2023 Increase your ferrous sulfate 325 mg to 1 twice a day-you can obtain this [id number] Do not take any aspirin, ibuprofen, or Aleve while you are taking Eliquis, take only Tylenol for pain Discharge Orders/Prescriptions Prescriptions: New Eliquis 5 mg Tablet 10 mg PO BID Qty: 66 0RF Rx Instructions: Take 2 tabs twice a day for a total of 24 pills, then reduce to 1 pill twice a day thereafter-start the evening of 06/26/2023 cephalexin 250 mg capsule 250 mg PO BID Qty: 11 0RF Rx Instructions: 1 twice a day for 11 doses, then discontinue, start 06/26/2019 4 in the evening Continued levothyroxine 175 mcg tablet 175 mcg PO finasteride 5 mg tablet 5 mg PO DAILY Changed ferrous sulfate 325 mg (65 mg iron) tablet 325 mg PO BIDCM Qty: 1 0RF Discontinued amlodipine 10 mg tablet 10 mg PO DAILY Referrals / Follow Up: Jenae Franco MD [Primary Care Provider] - In 1 Week (You will need to get a BMP repeated to check on your kidney function) Disposition Disposition (needs filled in before D/C Order can be placed): Home Health Service
--- NOTE | 2023-06-26 16:07 | PCM.DC.SUM ---
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 / Pulmonary Medicine Routine Consulting Provider: Intensivists/Pulmonary Med Reason for Consult: Sepsis due to UTI and aspiration pneumonia EMERGENT Consult: No Notified: Yes Date Notified: 06/23/23 Time Notified: 00:20 Method of Notification: Text Consult: Urology Routine Consulting Provider: Haim Urologthelma Reason for Consult: Chronic Maddox with significant lesion at base of penis and UTI with sepsis EMERGENT Consult: No Notified: Yes Date Notified: 06/23/23 Time Notified: 00:19 Method of Notification: Answering Service 06/24/23 00:26 Consult: Infectious Disease Routine Consulting Provider: Guilherme Tellez Reason for Consult: complicated UTI, h/o MRSA UTI requiring extended IV abx EMERGENT Consult: No Notified: Yes Date Notified: 06/24/23 Time Notified: 08:16 Method of Notification: Answering Service Reason For Visit: SEPSIS DUE TO UTI & ASPIRATION PNEUMONIA WITH Diagnosis Discharge Diagnosis (1) DVT (deep venous thrombosis): Status: Acute Code(s): I82.409 - Acute embolism and thrombosis of unspecified deep veins of unspecified lower extremity Plan 1. Septic shock secondary to acute cystitis associated with chronic Maddox catheter usage-E. coli, patient will remain on IV antibiotics #2 acute encephalopathy secondary to severe sepsis-patient is alert to self and place today, continue to give supportive care #3 acute left lower extremity DVT-patient will be placed on Eliquis starting tonight, heparin drip will be discontinued #4 possible left-sided pneumonia-infectious diseases has recommended continuing empiric Vanco and Zosyn #5 acute kidney injury on a backdrop of stage III chronic kidney disease, continue to monitor BMP #6 type 2 diabetes-patient's blood sugars will be monitored with fingerstick blood sugars, sliding scale insulin will be given if needed #7 hypoxia secondary to atelectasis Total clinical time spent by myself addressing the patient's medical issues, reviewing all of his data, and collaborating with patient's care team: 50 minutes Medications at Discharge Home Medications finasteride 5 mg tablet 5 mg PO DAILY prostate 06/22/23 levothyroxine 175 mcg tablet 175 mcg PO DAILY thyroid 06/22/23 apixaban 5 mg tablet (Eliquis) 10 mg (2 x 5 mg) PO BID #66 tabs 06/26/23 cephalexin 250 mg capsule 250 mg PO BID #11 caps 06/26/23 ferrous sulfate 325 mg (65 mg iron) tablet 325 mg PO BIDCM #1 TAB 06/26/23 Hospital Course Operations None Procedures None Summary of Care Provided Minutes Spent on Discharge: 32 Hospital Course: This 73-year-old white male was seen in the emergency room at [facility] after being sent in by his family due to decreased mental status. On examination in the ER, patient was confused and somnolent, he was tachycardic and hypoxic. Patient was not on home O2. Patient has a chronic indwelling Maddox because of complications from radiation therapy for colon cancer. Labs in the emergency room showed an elevated white blood cell count at 27.7, creatinine was elevated at 2.37 and BUN was 32. Patient's lactic acid was elevated at 4.6, urinalysis was remarkable for 10-25 RBCs, 10-25 WBCs, and +4 bacteria. Chest x-ray showed poor inspiration with some bibasilar atelectasis and cardiomegaly. Patient was given IV antibiotics in the emergency room, he was admitted for acute kidney injury and severe sepsis-in reviewing the patient's medical data, it appeared that he was actually in septic shock per criteria of Medicare A and B. 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 Patient improved during his hospital stay, he was eventually transferred to PCU. Urine culture grew out E. coli which was pansensitive, patient's mental status improved during his hospital stay. Patient was also noted to have a left lower extremity DVT on venous duplex scanning, initially he was placed on heparin and then transitioned over to Eliquis. On 06/26/2023, patient was seen and examined: On examination he appeared in good health and spirits. Vital signs as documented. Skin warm and dry and without overt rashes. Neck without JVD, neck was supple, trachea midline, thyroid was normal. Lungs clear bilaterally, normal air movement was noted. Heart exam notable for regular rhythm, normal sounds and absence of murmurs, rubs or gallops. Abdomen unremarkable and without evidence of organomegaly, masses, or abdominal aortic enlargement. Bowel sounds are present, abdomen is not distended. Extremities nonedematous, no cyanosis was noted, no clubbing was noted. Neuro: Cranial nerves II through XII are grossly intact, no focal motor deficits were noted, sensation to light touch and pinprick intact, motor exam 5/5 throughout. Psych: Patient is alert and oriented x3, he does not appear anxious or depressed, he does not appear agitated. Patient appears stable for discharge on 06/26/2023, he was discharged to home, family requested home health which will be arranged by case management. Patient required 3 L of oxygen on ambulation at the time of his discharge, he did not require any oxygen at rest, oxygen qualification documentation was reviewed by myself. Weight / BMI Weight Weight: 85 kg Body Mass Index (BMI) 29.4 ABG / Lab / Microbiology Data 06/25/23 03:08 06/26/23 06:35 Laboratory: Laboratory Results - last 24 hr 06/25/23 17:09: POC Glucose 130 H 06/25/23 22:37: POC Glucose 148 H 06/26/23 06:35: Sodium 141, Potassium 3.9, Chloride 112 H, Carbon Dioxide 22.0, Anion Gap 7, BUN 25 H, Creatinine 2.34 H, Estim Creat Clear Calc 29.29, Est GFR (MDRD) Af Amer 35 L, Est GFR (MDRD) Non-Af 29 L, BUN/Creatinine Ratio 10.7, Glucose 140 H, Calcium 9.2, POC Glucose 131 H 06/26/23 11:11: POC Glucose 155 H Microbiology: Microbiology 06/22/23 20:52 Blood Culture (Wb) - Right Hand Blood Culture - Preliminary No growth in 48 hours. 06/22/23 20:45 Blood Culture (Wb) - Left Hand Blood Culture - Preliminary No growth in 48 hours. 06/23/23 02:05 Urine Catheter - Maddox Urine Culture - Final Presumptive E. coli 06/23/23 02:05 Urine Catheter - Maddox Legionella Antigen - Final 06/23/23 02:05 Urine Catheter - Maddox Streptococcus pneumoniae Antigen (M - Final 06/22/23 20:25 Urine, Random Urine Culture - Final Presumptive E. coli 06/23/23 02:05 Nasal Secretion MRSA (PCR) - Final Meth. resistant Staph. aureus 06/22/23 20:55 Mucosa - Nasopharyngeal SARS-CoV-2, Influenza & RSV (PCR) - Final D/C Instructions Discharge Diet: - (No added sugar diet) Weight Bearing Status: Full weight bearing Meaningful Use Info Meaningful Use Diagnoses (Choose all that apply): None applicable and VTE VTE Anticoag overlap given w/in hospital stay or rx'd at dc?: No Pt receive overlap for 5 days?: No Reason overlap not ordered, prescribed, or given for 5 days: Treatment Not Indicated Discharge Plan Admission Admit Date/Time: 06/23/23 00:16 Primary Reason for Your Visit: Urinary tract infection, acute kidney injury Attending Provider: Aníbal Vela Primary Care Provider: Jenae Franco Consulting Providers: Luke Mims; Kulwinder De La O; Guilherme Tellez; Johnnie Logan; Marcy Vang; Liliane Gonzalez Instructions Additional Instructions / Restrictions: Reduce your amlodipine to one half of a 10 mg pill daily, start on 06/26/2023 Increase your ferrous sulfate 325 mg to 1 twice a day-you can obtain this [id number] Do not take any aspirin, ibuprofen, or Aleve while you are taking Eliquis, take only Tylenol for pain Discharge Orders/Prescriptions Prescriptions: New Eliquis 5 mg Tablet 10 mg PO BID Qty: 66 0RF Rx Instructions: Take 2 tabs twice a day for a total of 24 pills, then reduce to 1 pill twice a day thereafter-start the evening of 06/26/2023 cephalexin 250 mg capsule 250 mg PO BID Qty: 11 0RF Rx Instructions: 1 twice a day for 11 doses, then discontinue, start 06/26/2019 4 in the evening Continued levothyroxine 175 mcg tablet 175 mcg PO DAILY finasteride 5 mg tablet 5 mg PO DAILY Changed ferrous sulfate 325 mg (65 mg iron) tablet 325 mg PO BIDCM Qty: 1 0RF Discontinued amlodipine 10 mg tablet 10 mg PO DAILY Referrals / Follow Up: Jenae Franco MD [Primary Care Provider] - In 1 Week (You will need to get a BMP repeated to check on your kidney function) Disposition Disposition (needs filled in before D/C Order can be placed): Home Health Service
[2023-06-26 16:26] LABS: Bedside Glucose 139 mg/dL (74-106)
[2023-06-26 16:51] VITALS: O2SAT 85; O2SAT 88; O2SAT 91; O2SAT 97
--- NOTE | 2023-06-26 17:00 | PCM.HOSP.N ---
Hospitalist Note Oxygen testing reviewed, patient is ambulatory in the home and community and requires home oxygen with portability, patient requires 3 L of oxygen on ambulation, he requires no oxygen at rest.
--- NOTE | 2023-06-26 17:03 | NURSING ---
[facility] notified of need for home oxygen and order faxed.
== END 2023-06-26 18:20 | disposition home health service (06) | DRG 698 ==
LOC: ED 23:46 → ICU 06-23 00:27 → PCU 06-25 18:15
PROVIDERS: Hospitalist; Internal Medicine Critical Care Medicine; Admitting Provider Internal Medicine; Emergency Provider Emergency Medicine; PCP Internal Medicine; Visit Provider Internal Medicine
DX: T83.511A Infection and inflammatory reaction due to indwelling urethral catheter, initial encounter (principal); A41.51 Sepsis due to Escherichia coli [E. coli]; I26.99 Other pulmonary embolism without acute cor pulmonale; J96.01 Acute respiratory failure with hypoxia; R65.21 Severe sepsis with septic shock; J18.9 Pneumonia, unspecified organism; G93.41 Metabolic encephalopathy; E87.21 Acute metabolic acidosis; I69.354 Hemiplegia and hemiparesis following cerebral infarction affecting left non-dominant side; I82.412 Acute embolism and thrombosis of left femoral vein; N17.9 Acute kidney failure, unspecified; L03.116 Cellulitis of left lower limb; N30.01 Acute cystitis with hematuria; N13.8 Other obstructive and reflux uropathy; E11.22 Type 2 diabetes mellitus with diabetic chronic kidney disease; N18.30 Chronic kidney disease, stage 3 unspecified; Z93.2 Ileostomy status; Z93.3 Colostomy status; D50.9 Iron deficiency anemia, unspecified; E03.9 Hypothyroidism, unspecified; I12.9 Hypertensive chronic kidney disease with stage 1 through stage 4 chronic kidney disease, or unspecified chronic kidney disease; K52.9 Noninfective gastroenteritis and colitis, unspecified; E78.5 Hyperlipidemia, unspecified; T83.021A Displacement of indwelling urethral catheter, initial encounter; K80.20 Calculus of gallbladder without cholecystitis without obstruction; N40.1 Benign prostatic hyperplasia with lower urinary tract symptoms; Q54.1 Hypospadias, penile; E66.3 Overweight; R53.81 Other malaise; N36.8 Other specified disorders of urethra; Y73.8 Miscellaneous gastroenterology and urology devices associated with adverse incidents, not elsewhere classified; Z68.21 Body mass index [BMI] 21.0-21.9, adult; Z87.891 Personal history of nicotine dependence
CPT/HCPCS: 36415; 36600; 71045; 71046; 74018; 74176; 76705; 80048; 80053; 80202; 80307; 81001; 82607; 82728; 82746; 82803; 82962; 83036; 83540; 83550; 83605; 83735; 84100; 84439; 84443; 84484; 85025; 85027; 85379; 85610; 85730; 87040; 87086; 87088; 87186; 87449; 87631; 87641; 93005; 93306; 93970; 94640; 97162; 97166; 97530; 97535; 97802; 99252; 99285; J2020; J7030; J7040; A4216; G0463; J2405

== ENCOUNTER 2023-07-28 13:21 | Outpatient (RCR) | payer MEDICARE, BC, SELFPAY ==
[2023-07-28 14:19] LABS: Color, Urine Yellow (Yellow); Glucose, Dipstick Normal (Normal); Ketone-Dipstick Negative (Negative); Leukocyte Esterase-Dipstick 500 /ul (Negative); Nitrite-Dipstick Positive (Negative); Occult Blood-Urine 150 /ul (Negative); Protein-Dipstick 100 mg/dl (Negative); Urine Bilirubin Dipstick Negative (Negative); Urine Clarity Cloudy (Clear); Urine Urobilinogen Normal (Normal)
== END 2023-08-27 23:59 ==
LOC: HHLAB 13:21
PROVIDERS: PCP Internal Medicine
DX: Z46.6 Encounter for fitting and adjustment of urinary device (principal)
CPT/HCPCS: 81002; 87077; 87086; 87088; 87186

== ENCOUNTER → 2023-10-14 | Outpatient (CLI) | payer MEDICARE, BC, SELFPAY | END | disposition home or self-care (01) | PROVIDERS: PCP Internal Medicine; Visit Provider Urology | DX: Z46.6 Encounter for fitting and adjustment of urinary device (principal) | CPT/HCPCS: 87077; 87086; 87088; 87186 ==

== ENCOUNTER 2024-01-10 14:36 | Inpatient (IN) | payer MEDICARE, BC, SELFPAY ==
[2024-01-10 14:37] VITALS: BP 154/105; PULSE 97; RESP 16; TEMP 36.6; O2SAT 98; BMI 26.1
--- NOTE | 2024-01-10 14:48 | EX.ED.DYSGE1 ---
HPI History of Present Illness Chief Complaint: Maddox C/O Detail of Chief Complaint: Concern for dislodgment of Maddox catheter Informant: patient and EMS Narrative Narrative: Patient presents via EMS from home. Apparently son called EMS because it was believed patient may have accidentally dislodged his Maddox catheter. Patient has history of chronic indwelling Maddox catheter. He has history of UTIs and sepsis. Son thought maybe there was some increased confusion however he is not here to give history at this time. Patient has no complaints and denies recent illness. Patient also with prior history of DVT and is currently on apixaban. He does not know his primary care physician. He is a very poor historian. He does have history of encephalopathy. [facility] Medical History Colon cancer Home Medications ?Medication ?Instructions ?Recorded ?Last Taken ?Type finasteride 5 mg tablet 5 mg PO DAILY prostate 06/22/23 Unknown History levothyroxine 175 mcg tablet 175 mcg PO DAILY thyroid 06/22/23 Unknown History apixaban 5 mg tablet (Eliquis) 10 mg (2 x 5 mg) PO BID #66 tabs 06/26/23 Unknown Rx cephalexin 250 mg capsule 250 mg PO BID #11 caps 06/26/23 Unknown Rx ferrous sulfate 325 mg (65 mg 325 mg PO BIDCM #1 TAB 06/26/23 Unknown Rx iron) tablet Allergy/AdvReac Type Severity Reaction Status Date / Time No Known Allergies Allergy Verified 06/22/23 20:14 Social History Smoking Status: Former smoker ROS ROS ED Review of Systems ROS Unobtainable: other Constitutional Constitutional ED: Reports lethargy; Denies chills, fever(s), sweats or weight loss Eyes Eyes: Denies blurry vision, change in vision or diplopia ENT ENT ED: Denies rhinorrhea or sore throat Cardiovascular Cardiovascular: Reports chest pain and racing heartbeat; Denies orthopnea Respiratory/Chest Respiratory/Chest: Denies cough, dyspnea, dyspnea on exertion, orthopnea or sputum Gastrointestinal Gastrointestinal: Denies abdominal pain, diarrhea, nausea or vomiting Genitourinary Genitourinary ED: Reports other Details: Concern for displacement of Maddox catheter ; Denies dysuria, hematuria or urinary frequency Musculoskeletal Musculoskeletal: Denies arthralgias, back pain, myalgias or neck pain Integumentary Denies abscess, Abrasions or rash Neurologic Neurologic: Reports other Details: Confusion ; Denies headache(s) or weakness Psychiatric Psychiatric: Denies anxiety, depression or suicidal thoughts Endocrine Endocrinology: Denies polydipsia, polyphagia or polyuria Hematologic/Lymphatic Hematologic/Lymphatic: Denies easy bleeding, easy bruising or lymphadenopathy Allergic/Immunologic Allergic/Immunologic ED: Denies mouth swelling, tongue swelling or urticaria EXAM Physical Exam Const Vital Signs: 01/10/24 14:37 01/10/24 16:00 01/10/24 16:29 Temperature 97.9 F 98.1 F 98.1 F Temperature Source Oral Oral Pulse Rate 97 99 98 Respiratory Rate 16 17 19 H Blood Pressure 154/105 H 156/104 H 158/113 H Blood Pressure Mean 121 121 128 Pulse Ox 98 95 Oxygen Delivery Method Room Air Positive well nourished and well developed General Appearance ED: well developed and NAD HEENT Reports TM's clear and moist mucous membranes normocephalic and atraumatic; Negative for trauma or tenderness Tympanic Membrane ED: Yes TM's clear Eyes PERRL and EOMs intact bilaterally General Eye ED: Negative for pale conjunctiva or scleral icterus Neck no lymphadenopathy, supple and no JVD General: Negative for tenderness Chest Wall inspection of chest normal and palpation of chest normal Chest: Negative for tenderness Resp normal respiratory effort and clear to auscultation bilaterally Effort and Inspection: Negative for respiratory distress or pain with movement Auscultation: Negative for rhonchi, wheezes or diminished lung sounds Cardio regular rate, regular rhythm, S1 normal heart sound, S2 normal heart sound and no murmurs Peripheral Pulses: pulses 2+ throughout GI normal to inspection, nondistended, normoactive bowel sounds, soft to palpation, non-tender, non-distended and no masses Narrative: Patient has an indwelling Maddox catheter in place. Patient has chronic erosion of the urethra to near the base of the penis where the catheter enters. Patient does have urine draining into the Maddox catheter. He has no suprapubic pain on exam. Back/Spine no CVA tenderness and no thoracic nor lumbar tenderness Extremity normal to inspection General Extremety ED: Negative for edema General Extremity: Negative for edema Neuro No oriented x3, CN's II-XII intact bilaterally, no sensory deficits noted and gait normal Neuro Narrative: Patient alert to person only. Sensorium / Orientation: awake, alert, oriented to person, oriented to place and oriented to time Motor Exam: strength 5/5 throughout and strength abnormal Psych mental status grossly normal Skin no rashes or lesions noted and no wounds MDM MDM MDM Narrative Medical decision making narrative: Patient presents to the emergency department for concern for dislodgment of his Maddox catheter. Questionable confusion although unclear what is baseline for him. Patient has not had any trauma or falls. Will obtain some basic labs and a urinalysis. Will change out his Maddox catheter as apparently he has home health that comes and changes it and supposed to be changed next week. I was able to contact patient's son who gives history that patient has been more aggressive and increased confusion. He has a history of MRSA in the urine and sepsis related to MRSA. Patient did have the Maddox catheter changed out. CBC with differential obtained showed a white count of 9.6 with hemoglobin 15 and platelet count of 127. Chemistries unremarkable. BUN 15 and creatinine 1.69. Urinalysis positive for nitrites as well as 500 leukocyte esterase and greater than 100 WBCs with +3 bacteria. Urine culture sent. Patient started on vancomycin and Zosyn IV. Will discuss case with hospitalist to evaluate patient for admission Lab Data Attestation: I reviewed the patient's lab results. Labs: Laboratory Results - last 24 hr 01/10/24 15:09 WBC 9.6 RBC 5.28 Hgb 15.4 Hct 48.1 MCV 91.1 MCH 29.2 MCHC 32.0 RDW Std Deviation 48.6 H RDW Coeff of Yanira 14.7 H Plt Count 127 L MPV 12.6 H Immature Gran % (Auto) 0.400 Neut % (Auto) 73.1 H Lymph % (Auto) 16.3 L [place] % (Auto) 6.9 Eos % (Auto) 2.5 Baso % (Auto) 0.8 Absolute Neuts (auto) 7.0 Absolute Lymphs (auto) 1.57 Nucleated RBC % 0 Sodium 135 L Potassium 4.0 Chloride 106 Carbon Dioxide 22.0 Anion Gap 7 BUN 15 Creatinine 1.69 H Estim Creat Clear Calc 36.40 Est GFR (MDRD) Af Amer 51 L Est GFR (MDRD) Non-Af 42 L BUN/Creatinine Ratio 8.9 L Glucose 220 H Lactic Acid Cancelled Calcium 9.2 Urine Color Brown Urine Clarity Turbid Urine pH 7.0 Ur Specific [place] 1.015 Urine Protein 500 H Urine Glucose (UA) 250 H Urine Ketones Negative Urine Occult Blood 250 H Urine Nitrite Positive H Urine Bilirubin Negative Urine Urobilinogen Normal Ur Leukocyte Esterase 500 H Urine RBC > 100 SEEN Urine WBC >100 SEEN Ur Squamous Epith Cells 0-5 SEEN Ur Transition Epith Cell 0-5 SEEN Urine Bacteria 3+ Urine Mucus 0 SEEN Discharge Plan Dx/Rx/DC Orders Clinical Impression: Acute UTI, Acute confusion, History of colon cancer, History of hypothyroidism Disposition Disposition: Acute Care Hospital [facility]
[2024-01-10 15:20] LABS: Mucous, Urine 0 SEEN /hpf (<or=2+)
[2024-01-10 15:21] LABS: Absolute Lymphocyte Count 1.57 X10^3/uL (0.83-4.51); Basophil# 0.08 X10^3/uL; Basophil% 0.8 % (0-1); Eosinophil# 0.24 X10^3/uL; Eosinophils% 2.5 % (0-5); Hematocrit 48.1 % (40-54); Hemoglobin 15.4 g/dL (13.0-16.5); Lymphocyte # 1.57 X10^3/ul (0.83-4.51); Lymphocyte % 16.3 % (19-41); Mean Corpuscular Hgb 29.2 pg (27.0-32.0); Mean Corpuscular Volume 91.1 fL (80-94); Mean Platelet Vol. 12.6 fl (6.2-12.0); Monocyte# 0.66 X10^3/uL; Monocyte% 6.9 % (0-10); NRBC Flagged by Analyzer 0 % (0-5); Neutrophil # 7.03 X10^3/uL (2.7-7.7); Neutrophil % 73.1 % (47-70); Platelet Count 127 K/mm3 (150-450); RBC Distribution Width CV 14.7 % (11.6-14.6); RBC Distribution Width SD 48.6 fl (35.1-43.9); Red Blood Count 5.28 M/mm3 (4.6-6.2); White Blood Count 9.6 K/mm3 (4.4-11.0)
[2024-01-10 15:24] LABS: Color, Urine Brown (Yellow); Glucose, Dipstick 250 mg/dl (Normal); Ketone-Dipstick Negative (Negative); Leukocyte Esterase-Dipstick 500 /ul (Negative); Nitrite-Dipstick Positive (Negative); Occult Blood-Urine 250 /ul (Negative); Protein-Dipstick 500 mg/dl (Negative); Specific Gravity, Urine 1.015 (1.002-1.030); Urine Bilirubin Dipstick Negative (Negative); Urine Clarity Turbid (Clear); Urine Urobilinogen Normal (Normal)
[2024-01-10 15:32] LABS: Bacteria 3+ /hpf (None Seen); Red Blood Cells-Urine > 100 SEEN /hpf (0-5)
[2024-01-10 15:33] LABS: White Blood Cells >100 SEEN /hpf (0-5)
[2024-01-10 15:34] LABS: Squamous Epithelial Cells - UA 0-5 SEEN /hpf (0-5); Transitional Epithelial - Ur 0-5 SEEN /hpf (0-5)
[2024-01-10 15:41] LABS: Anion Gap 7 (5-15); BUN 15 mg/dL (7-18); BUN/Creat Ratio 8.9 RATIO (10-20); Calcium,Total 9.2 mg/dL (8.5-10.1); Chloride 106 mmol/L (98-107); Creatinine, Serum 1.69 mg/dL (0.70-1.30); EST Glomerular Filtration Rate 42 mL/min (>60); Est Glom Filt Rate - Afr Amer 51 mL/min (>60); Glucose 220 mg/dL (74-106); Sodium Level 135 mmol/L (136-145)
[2024-01-10 16:00] VITALS: BP 156/104; PULSE 99; RESP 17; TEMP 36.7
[2024-01-10 16:29] VITALS: BP 158/113; PULSE 98; RESP 19; TEMP 36.7; O2SAT 95
[2024-01-10] MEDS: Piperacil/Tazobactam 4.5 GM in 0.9% Normal Saline (100mL MB+) 100 ML IV (16:35)
--- NOTE | 2024-01-10 16:48 | HP.PCM.HOS_ITS ---
HPI - General General Date of Admission: 01/10/24 Date of Service: 01/10/24 Chief Complaint: Altered mental status. Pulled out his Maddox catheter. HPI Narrative EMELIA JOHNSON, is a 73 M was brought to ED by EMS for being confused agitated. His son called EMS as he thought patient might have accidentally dislodged or pulled Maddox catheter. Patient has severe: With colostomy and chronic indwelling Maddox catheter. History of recurrent UTI and sepsis. Denies fever. Patient himself states that when he has infection/UTI he gets confused. Patient has Maddox catheter and draining urine clear and yellow. In ED, no fever vitals in acceptable range. Patient further admitted and ED physician ordered IV vancomycin and Zosyn. FOR[facility]LY [facility], [facility]ER [facility] Medical History DVT (deep venous thrombosis) Enteritis Cholelithiasis Acidosis, lactic Encephalopathy due to infection Acute hypoxemic respiratory failure Complicated urinary tract infection Severe sepsis with acute organ dysfunction Aspiration into respiratory tract FIOR (acute kidney injury) Colon cancer Home Medications ?Medication ?Instructions ?Recorded ?Last Taken ?Type finasteride 5 mg tablet 5 mg PO DAILY prostate 06/22/23 Unknown History levothyroxine 175 mcg tablet 175 mcg PO DAILY thyroid 06/22/23 Unknown History apixaban 5 mg tablet (Eliquis) 10 mg (2 x 5 mg) PO BID #66 tabs 06/26/23 Unknown Rx cephalexin 250 mg capsule 250 mg PO BID #11 caps 06/26/23 Unknown Rx ferrous sulfate 325 mg (65 mg 325 mg PO BIDCM #1 TAB 06/26/23 Unknown Rx iron) tablet Allergy/AdvReac Type Severity Reaction Status Date / Time No Known Allergies Allergy Verified 06/22/23 20:14 Social History Smoking Status: Former smoker ROS ROS Narrative 14 system ROS cannot be completely obtained Has colostomy with soft formed stool in the bag. His son not present near the bedside Review of Systems ROS Unobtainable: due to encephalopathy Vital Signs Vital Signs Vital Signs: 01/10/24 14:37 01/10/24 16:00 01/10/24 16:29 Temperature 97.9 F 98.1 F 98.1 F Temperature Source Oral Oral Pulse Rate 97 99 98 Respiratory Rate 16 17 19 H Blood Pressure 154/105 H 156/104 H 158/113 H Blood Pressure Mean 121 121 128 Pulse Ox 98 95 Oxygen Delivery Method Room Air Weight Weight: 166 lb 14.239 oz Body Mass Index (BMI) 26.1 Physical Exam Narrative General: Awake, confused. Oriented to place and person but not time. He stated 2023 but not correct month. HEENT: Atraumatic, PERRLA, EOMI, Normocephalic Oral: Oral mucosa dry no Gingival or Mucosal Lesions/ Ulcerations Neck: Supple, No JVD, Negative Carotid Bruits Chest wall/Lungs: Air entry diminished in bilateral lung bases. No crepitation/rhonchi Cardiovascular: Sinus Rhythm, Normal S1, Normal S2, No M/G/R Abdomen: Bowel Sounds Present, colostomy with yellow formed stool. Non Tender, Non-Distended : Maddox catheter yellow urine. Hypospadias with purulent material draining. No scrotal tenderness or open wound in the perineal region. Mild redness of the scrotum skin. No renal angle tenderness. No suprapubic tenderness. Extremities: No edema, Capillary Refill Less than 3 Seconds Skin: Dry skin with exfoliation and fissure. No open ulcer Musculoskeletal: No Tenderness to Palpation of Joints or Extremities. ROM full Neurological: DTR 2+/4. No acute focal neurological deficit. Detailed neuroexam unobtainable Psych/Mental Status: Flat affect Results Lab / Micro Data 01/10/24 15:09 01/10/24 15:09 Labs: Laboratory Results - last 24 hr 01/10/24 15:09: WBC 9.6, RBC 5.28, Hgb 15.4, Hct 48.1, MCV 91.1, MCH 29.2, MCHC 32.0, RDW Std Deviation 48.6 H, RDW Coeff of Yanira 14.7 H, Plt Count 127 L, MPV 12.6 H, Immature Gran % (Auto) 0.400, Neut % (Auto) 73.1 H, Lymph % (Auto) 16.3 L, [place] % (Auto) 6.9, Eos % (Auto) 2.5, Baso % (Auto) 0.8, Absolute Neuts (auto) 7.0, Absolute Lymphs (auto) 1.57, Nucleated RBC % 0, Sodium 135 L, Potassium 4.0, Chloride 106, Carbon Dioxide 22.0, Anion Gap 7, BUN 15, Creatinine 1.69 H, Estim Creat Clear Calc 36.40, Est GFR (MDRD) Af Amer 51 L, Est GFR (MDRD) Non-Af 42 L, BUN/Creatinine Ratio 8.9 L, Glucose 220 H, Lactic Acid Cancelled, Calcium 9.2, Urine Color Brown, Urine Clarity Turbid, Urine pH 7.0, Ur Specific [place] 1.015, Urine Protein 500 H, Urine Glucose (UA) 250 H, Urine Ketones Negative, U rine Occult Blood 250 H, Urine Nitrite Positive H, Urine Bilirubin Negative, Urine Urobilinogen Normal, Ur Leukocyte Esterase 500 H, Urine RBC > 100 SEEN, Urine WBC >100 SEEN, Ur Squamous Epith Cells 0-5 SEEN, Ur Transition Epith Cell 0-5 SEEN, Urine Bacteria 3+, Urine Mucus 0 SEEN Assessment & Plan Assessment/Plan (1) Encephalopathy acute: PLAN: Plan This 73-year-old gentleman being admitted for further evaluation of acute encephalopathy 1. Acute encephalopathy, multiple etiologies suspected possible infection/UTI, metabolic encephalopathy: Patient is being admitted in PCU on monitored bed. No leukocytosis. UA shows LE 500, RBC more than 100 cells, WBC more than 100 cells, bacteria 3+, nitrite positive. Lactic acid normal. At this time sepsis is not suspected. Patient was given 1 dose of vancomycin and Zosyn in ED. With history of MRSA UTI, continue vancomycin. Ceftriaxone ordered. Blood culture and urine culture pending ordered. 2. Chronic colon Status post colostomy: No acute issues. Stool is formed in the bag. Patient has chronic indwelling Maddox catheter 3 Chronic left lower extremity DVT in May 2023: Patient was diagnosed left lower extremity DVT in May 2023 and was started on Eliquis. Continue Eliquis. 4. Chronic kidney disease stage IIIb: Admitting BUNs/creatinine 15/1.69 with estimated creatinine clearance 36 mL/min. Previously patient's creatinine has been 2.34-2.68 in May 2023. 5. Diabetes mellitus type 2: Accu-Chek before meals and at bedtime with Humalog sliding scale coverage and hypoglycemia protocol. 6. Mild hyponatremia: Sodium is 135. IV fluid normal saline started. Living will/advanced directive/end of life care: Could not be completely obtained as patient is confused but he stated his son takes care of him when he changes his colostomy bag. He said he wants full resuscitation. Therefore full code Total time spent in [id number] encounter in discussion of advanced directive 17 minutes. Laboratory Results 01/10/24 15:09: WBC 9.6, RBC 5.28, Hgb 15.4, Hct 48.1, MCV 91.1, MCH 29.2, MCHC 32.0, RDW Std Deviation 48.6 H, RDW Coeff of Yanira 14.7 H, Plt Count 127 L, MPV 12.6 H, Immature Gran % (Auto) 0.400, Neut % (Auto) 73.1 H, Lymph % (Auto) 16.3 L, [place] % (Auto) 6.9, Eos % (Auto) 2.5, Baso % (Auto) 0.8, Absolute Neuts (auto) 7.0, Absolute Lymphs (auto) 1.57, Nucleated RBC % 0, Sodium 135 L, Potassium 4.0, Chloride 106, Carbon Dioxide 22.0, Anion Gap 7, BUN 15, Creatinine 1.69 H, Estim Creat Clear Calc 36.40, Est GFR (MDRD) Af Amer 51 L, Est GFR (MDRD) Non-Af 42 L, BUN/Creatinine Ratio 8.9 L, Glucose 220 H, Lactic Acid Cancelled, Calcium 9.2, Phosphorus 2.9, Magnesium 2.0, Total Creatine Kinase 92, Urine Color Brown, Urine Clarity Turbid, Urine pH 7.0, Ur Specific [place] 1.015, Urine Protein 500 H, Urine Glucose (UA) 250 H, Urine Ketones Negative, Urine Occult Blood 250 H, U rine Nitrite Positive H, Urine Bilirubin Negative, Urine Urobilinogen Normal, Ur Leukocyte Esterase 500 H, Urine RBC > 100 SEEN, Urine WBC >100 SEEN, Ur Squamous Epith Cells 0-5 SEEN, Ur Transition Epith Cell 0-5 SEEN, Urine Bacteria 3+, Urine Mucus 0 SEEN 01/10/24 16:25: Lactic Acid 1.3 01/10/24 17:00: PT 19.3 H, INR 1.6, APTT 32.6
--- NOTE | 2024-01-10 16:48 | RAD_ITS ---
STUDY: X-RAY CHEST REASON FOR EXAM: Male, 73 years old. SOB TECHNIQUE: AP portable COMPARISON: June 23, 2023. FINDINGS: There is elevation of the left hemidiaphragm with minimal scarring in the left upper and lower lobes. There is no demonstrated pleural abnormality. Normal size heart. Normal mediastinum and fanta. Normal visualized pulmonary arteries. Tortuous mildly calcified aortic arch and descending thoracic aorta. Dorsal spine and shoulders demonstrate degenerative change. Normal visualized ribs, clavicles, and shoulders. There is no demonstrated abnormality of the visualized soft tissue structures of the upper abdomen. RAD/Chest 1 View (Portable) IMPRESSION: No acute cardiopulmonary pathology Electronically Signed: Jose Rios MD at 17:30 EDT ,
[2024-01-10 17:00] VITALS: BP 148/104; PULSE 99; RESP 22; TEMP 36.6; O2SAT 96
[2024-01-10 17:16] LABS: Lactic Acid 1.3 mmol/L (0.4-1.9)
[2024-01-10 17:21] LABS: International Normalized Ratio 1.6; Prothrombin Time (Protime)PT. 19.3 SECONDS (11.7-14.9)
[2024-01-10] MEDS: Vancomycin HCl 1,250 MG in 0.9% Normal Saline (250mL Bag) 250 ML 167 MG IV (17:21)
--- NOTE | 2024-01-10 17:22 | ED.RN ---
Addendum entered by Nadia Grey 01/10/24 18:21: TO BE GIVEN 01/10 Original Note: GIVING ROCEPHIN TOMORROW 01/09 PER PHARMACIST
[2024-01-10 17:23] LABS: Partial Thromboplast Time 32.6 Seconds (24.1-36.2)
[2024-01-10 17:56] LABS: CPK Total, Creatine Kinase 92 U/L (39-308); Phosphorus 2.9 mg/dL (2.5-4.9)
[2024-01-10 17:57] VITALS: BP 121/86; PULSE 101; RESP 22; TEMP 36.6; O2SAT 97
[2024-01-10 19:52] VITALS: BMI 21.8
[2024-01-10 20:00] VITALS: BP 160/89; PULSE 99; RESP 18; TEMP 36.4; O2SAT 99
[2024-01-10] MEDS: Insulin Lispro 100 UNIT/ML INSULN.PEN SC (21:01)
[2024-01-10] MEDS: APIXABAN 5 MG TABLET PO (21:01)
--- NOTE | 2024-01-10 21:16 | PCM.RX.CS ---
Consult Antibiotic Management Pharmacy has been consulted to manage selected antibiotic: Vancomycin Type of Intervention Type of Consult: New start Suspected Infection Suspected Infection: Other Labs Labs: Sodium 135 mmol/L (136-145) L 01/10/24 15:09 Potassium 4.0 mmol/L (3.5-5.1) 01/10/24 15:09 Chloride 106 mmol/L (98-107) 01/10/24 15:09 Carbon Dioxide 22.0 mmol/L (21.0-32.0) 01/10/24 15:09 Anion Gap 7 (5-15) 01/10/24 15:09 BUN 15 mg/dL (7-18) 01/10/24 15:09 Creatinine 1.69 mg/dL (0.70-1.30) H 01/10/24 15:09 Est GFR (MDRD) Af Amer 51 mL/min (>60) L 01/10/24 15:09 Est GFR (MDRD) Non-Af 42 mL/min (>60) L 01/10/24 15:09 BUN/Creatinine Ratio 8.9 RATIO (10-20) L 01/10/24 15:09 Glucose 220 mg/dL (74-106) H 01/10/24 15:09 Microbiology Microbiology: Microbiology 01/10/24 17:00 Mucosa - Nose SARS-CoV-2, Influenza & RSV (PCR) - Final Dosing Weight Weight used for dosin.7 kg Estimated Creatinine Clearance Estimated Creatinine Clearance: 36 Pharmacy Plan for Drug Dosing Pharmacy Plan for Drug Dosing: Pharmacy Service will continue to monitor and adjust dosing as required. Follow-Up Labs Follow-Up Labs: Trough: Vancomycin Date/Time Labs Ordered Labs to be done on [date and time ordered]: 01/12/24 @1700
[2024-01-10 21:42] LABS: Bedside Glucose 194 mg/dL (74-106)
[2024-01-11] VITALS (11 sets, daily range): BP systolic 134–155; BP diastolic 85–108; PULSE 85–102; RESP 18–19; TEMP 36.2–36.8; O2SAT 83–99
[2024-01-11] MEDS: Insulin Lispro 100 UNIT/ML INSULN.PEN SC ×3 (06:05→16:13)
[2024-01-11 06:26] LABS: Bedside Glucose 178 mg/dL (74-106)
[2024-01-11 06:32] LABS: Absolute Lymphocyte Count 1.26 X10^3/uL (0.83-4.51); Absolute Neutrophil Count 6.1 X10^3/uL (2.0-7.7); Basophil# 0.07 X10^3/uL; Basophil% 0.9 % (0-1); Eosinophil# 0.16 X10^3/uL; Hemoglobin 14.2 g/dL (13.0-16.5); Lymphocyte # 1.26 X10^3/ul (0.83-4.51); Lymphocyte % 15.9 % (19-41); Mean Corp Hgb Conc 31.6 g/dL (32-36); Mean Corpuscular Hgb 28.6 pg (27.0-32.0); Mean Corpuscular Volume 90.5 fL (80-94); Mean Platelet Vol. 12.5 fl (6.2-12.0); Monocyte# 0.33 X10^3/uL; Monocyte% 4.2 % (0-10); NRBC Flagged by Analyzer 0 % (0-5); Neutrophil # 6.05 X10^3/uL (2.7-7.7); Neutrophil % 76.2 % (47-70); Platelet Count 134 K/mm3 (150-450); RBC Distribution Width CV 14.6 % (11.6-14.6); RBC Distribution Width SD 48.4 fl (35.1-43.9); Red Blood Count 4.97 M/mm3 (4.6-6.2); White Blood Count 7.9 K/mm3 (4.4-11.0)
[2024-01-11 07:05] LABS: Thyroid Stim Hormone (TSH) 0.064 uIU/mL (0.358-3.740)
[2024-01-11 08:55] LABS: Free T3 1.7 pg/mL (2.18-3.98); T4 Free Direct 1.49 ng/dL (0.76-1.46)
[2024-01-11] MEDS: Ceftriaxone 1 GM/50 ML BAG IV (09:54)
[2024-01-11] MEDS: 0.9% Saline Lock 10 ML Syringe IV ×2 (09:55→17:18)
[2024-01-11] MEDS: APIXABAN 5 MG TABLET PO (09:55)
--- NOTE | 2024-01-11 11:35 | CASEMGMT ---
LAQUITA MONTANEZ Assessment: Face to Face with pt for initial transition planning/care coordination assessment. LAQUITA MONTANEZ introduced self and role at [facility], pt voices understanding and consents to assessment. Pt is confused, unable to answers questions appropriately at this time. LAQUITA MONTANEZ called daughterShaunna, to discuss initial DC planning. Care providers, pharmacy, and demographics verified/updated. Strata: 2 Admitting Dx: AMS PCP: Salvador Specialists: David, Urologist Taran Pharmacy: [facility] Insurance: Brennen CARROLL Prescription Benefit: yes LNOK: Shaunna Duque Living Arrangements: Pt lives with son, daughter and SHELLY in a 2 story home with ramp to enter. Pt lives on the main level. ADLs: Pt requires assistance at home. Transportation: Pt family provides transportation when necessary. DME: Shower bench, walker, wheelchair, hospital bed HHC/SNF:Previously in a SNF in [facility]. Set up with [facility] SN, recently DC from PT and OT with [facility]. Pt daughter states would like to see pt get placed for short term. Requested [facility] as first choice. States if pt does not qualify for SNF would like to re-establish with [facility] for PT and OT services. Pt daughter states no further concerns/needs. Notified CM on floor of family preference. CM to follow. Advised pt to ask CM if any further question/concerns/needs arise, voices understanding. Pt Goal: SNF Plan: SNF [facility] CM
[2024-01-11 11:57] LABS: Bedside Glucose 235 mg/dL (74-106)
--- NOTE | 2024-01-11 14:07 | PCM.PROGNOTE ---
Subjective Subjective Patient seen and examined. He was confused and did tell me himself he felt he was confused. He denied any fever, chills, cough, chest pain, palpitations, nausea, vomiting or any other symptoms. Review of systems is otherwise negative. Objective Data Objective Data Vital Signs: Vital Signs Temp Pulse Resp BP Pulse Ox O2 Del Method 98.2 F 85 18 155/108 H 95 Room Air 01/11/24 08:00 01/11/24 08:00 01/11/24 09:03 01/11/24 08:00 01/11/24 10:01 01/11/24 10:01 Oxygen Delivery Method Room Air Weight: 174 lb 13.225 oz Body Mass Index (BMI) 21.8 Intake & Output: Intake and Output for Last 24 Hours 01/09/24 01/10/24 01/11/24 23:59 23:59 23:59 Intake Total 375 / 855 530 / 530 Output Total 550 / 550 Balance 375 / 305 -20 / -20 Lab / Micro Data 01/11/24 05:23 01/10/24 15:09 Labs: Laboratory Results - last 24 hr 01/10/24 15:09: WBC 9.6, RBC 5.28, Hgb 15.4, Hct 48.1, MCV 91.1, MCH 29.2, MCHC 32.0, RDW Std Deviation 48.6 H, RDW Coeff of Yanira 14.7 H, Plt Count 127 L, MPV 12.6 H, Immature Gran % (Auto) 0.400, Neut % (Auto) 73.1 H, Lymph % (Auto) 16.3 L, [place] % (Auto) 6.9, Eos % (Auto) 2.5, Baso % (Auto) 0.8, Absolute Neuts (auto) 7.0, Absolute Lymphs (auto) 1.57, Nucleated RBC % 0, Sodium 135 L, Potassium 4.0, Chloride 106, Carbon Dioxide 22.0, Anion Gap 7, BUN 15, Creatinine 1.69 H, Estim Creat Clear Calc 36.40, Est GFR (MDRD) Af Amer 51 L, Est GFR (MDRD) Non-Af 42 L, BUN/Creatinine Ratio 8.9 L, Glucose 220 H, Lactic Acid Cancelled, Calcium 9.2, Phosphorus 2.9, Magnesium 2.0, Total Creatine Kinase 92, Urine Color Brown, Urine Clarity Turbid, Urine pH 7.0, Ur Specific [place] 1.015, Urine Protein 500 H, Urine Glucose (UA) 250 H, Urine Ketones Negative, Urine Occult Blood 250 H, Urine Nitrite Positive H, Urine Bilirubin Negative, Urine Urobilinogen Normal, Ur Leukocyte Esterase 500 H, Urine RBC > 100 SEEN, Urine WBC >100 SEEN, Ur Squamous Epith Cells 0-5 SEEN, Ur Transition Epith Cell 0-5 SEEN, Urine Bacteria 3+, Urine Mucus 0 SEEN 01/10/24 16:25: Lactic Acid 1.3 01/10/24 17:00: PT 19.3 H, INR 1.6, APTT 32.6 01/10/24 20:59: POC Glucose 194 H 01/11/24 05:23: WBC 7.9, RBC 4.97, Hgb 14.2, Hct 45.0, MCV 90.5, MCH 28.6, MCHC 31.6 L, RDW Std Deviation 48.4 H, RDW Coeff of Yanira 14.6, Plt Count 134 L, MPV 12.5 H, Immature Gran % (Auto) 0.800, Neut % (Auto) 76.2 H, Lymph % (Auto) 15.9 L, [place] % (Auto) 4.2, Eos % (Auto) 2.0, Baso % (Auto) 0.9, Absolute Neuts (auto) 6.1, Absolute Lymphs (auto) 1.26, Nucleated RBC % 0, TSH 0.064 L, Free T4 1.49 H, Free T3 pg/dL 1.7 L 01/11/24 06:02: POC Glucose 178 H 01/11/24 11:18: POC Glucose 235 H Micro: Microbiology 01/10/24 15:09 Urine Catheter - Maddox Urine Culture - Preliminary Staphylococcus aureus 01/10/24 17:00 Mucosa - Nose SARS-CoV-2, Influenza & RSV (PCR) - Final Radiography Diagnostic Testing: Radiology Impression Chest X-Ray 01/10/24 16:48 IMPRESSION: No acute cardiopulmonary pathology Electronically Signed: Jose Rios MD at 17:30 EDT Reading Location ID and State: [facility] / [place] Tel , Service support , Physical Exam Const alert General Appearance: cooperative Orientation / Consciousness: confused HEENT normocephalic, head/scalp atraumatic and moist oral mucous membranes Eyes PERRL and EOMs intact bilaterally Neck supple and no JVD Lymph Lymphatic: no lymphadenopathy noted and no lymphedema noted Resp normal respiratory effort, normal air movement and clear to auscultation bilaterally Cardio regular rate, regular rhythm, S1 normal heart sound, S2 normal heart sound and no murmurs GI normal to inspection, nondistended, normoactive bowel sounds Extremity normal capillary refill, no clubbing, cyanosis or edema and no calf tenderness General Extremity: no tenderness to palpation of joints or extremities Skin General Skin Exam: no breakdown Neuro CN's II-XII intact bilaterally, no focal motor deficits, no sensory deficits noted and deep tendon reflexes 2+ bilaterally Motor Exam: strength 5/5 throughout and general weakness Psych cooperative and affect normal Psych Narrative: confused Assessment & Plan Assessment/Plan (1) Encephalopathy acute: (2) Acute UTI: PLAN: Plan #Acute encephalopathy due to UTI patient remains confused. urinalysis showed evidence of UTI on IV ceftriaxone and vancomycin due to history of MRSA UTI. blood and urine cultures pending #UTI: as above #Hyperthyroidism TSH was very low at 0.064. FRee T4 is slightly high at 1.49 and fee T3 is low at 1.7. in light of patient's acute symptoms, will benefit from repeating labs which show evidence of hyperthyroidism before commencing treatment. #History of colon cancer: has colostomy bag in place. #CKD III: CR was 1.69 on admission. Baseline Cr is ~ 2.1. Will monitor #Type 2 diabetes mellitus: on ISS. Accuchecks ACHS. Appears to be diet controlled. His A1c on 06/23/2023 was 1.1. #Histoyr of LLE DVT: diagnosed in Mach 2023. on eliquis DVT prophylaxis: lovenox Charges/Coding Visit Charges Inpatient E&M: 38643 Subs Hosp L2
--- NOTE | 2024-01-11 15:11 | NURSING ---
pt noted to have coughed forcefully while eating hamburger. pt sneezing and coughing after eating and reports choked on onion skin lungs dim b/l. new pox sticker applied to finger and will monitor. speech to see but diet already changed to soft bite sized with supervision
[2024-01-11 16:42] LABS: Bedside Glucose 227 mg/dL (74-106)
[2024-01-11] MEDS: Vancomycin IV 1,000 MG/200 ML BAG 200 MG IV (17:18)
[2024-01-11 22:54] LABS: Bedside Glucose 166 mg/dL (74-106)
[2024-01-12] VITALS (10 sets, daily range): BP systolic 128–151; BP diastolic 75–99; PULSE 88–98; RESP 16–18; TEMP 35.8–37.1; O2SAT 95–98
[2024-01-12] MEDS: APIXABAN 5 MG TABLET PO ×3 (00:14→21:53)
[2024-01-12 05:44] LABS: Absolute Lymphocyte Count 1.32 X10^3/uL (0.83-4.51); Basophil# 0.06 X10^3/uL; Basophil% 0.7 % (0-1); Eosinophil# 0.25 X10^3/uL; Hematocrit 46.1 % (40-54); Hemoglobin 14.6 g/dL (13.0-16.5); Lymphocyte # 1.32 X10^3/ul (0.83-4.51); Lymphocyte % 15.8 % (19-41); Mean Corp Hgb Conc 31.7 g/dL (32-36); Mean Corpuscular Hgb 29.1 pg (27.0-32.0); Mean Platelet Vol. 11.9 fl (6.2-12.0); Monocyte# 0.66 X10^3/uL; Monocyte% 7.9 % (0-10); NRBC Flagged by Analyzer 0 % (0-5); Neutrophil # 6.01 X10^3/uL (2.7-7.7); Neutrophil % 71.9 % (47-70); Platelet Count 112 K/mm3 (150-450); RBC Distribution Width CV 14.9 % (11.6-14.6); RBC Distribution Width SD 50.2 fl (35.1-43.9); Red Blood Count 5.01 M/mm3 (4.6-6.2); White Blood Count 8.4 K/mm3 (4.4-11.0)
[2024-01-12 06:14] LABS: Anion Gap 7 (5-15); BUN 22 mg/dL (7-18); BUN/Creat Ratio 12.2 RATIO (10-20); Calcium,Total 9.1 mg/dL (8.5-10.1); Chloride 109 mmol/L (98-107); Creatinine, Serum 1.81 mg/dL (0.70-1.30); EST Glomerular Filtration Rate 39 mL/min (>60); Est Glom Filt Rate - Afr Amer 47 mL/min (>60); Estimated Creatinine Clearance 40.77 ml/min; Glucose 186 mg/dL (74-106); Potassium 3.4 mmol/L (3.5-5.1); Sodium Level 140 mmol/L (136-145)
[2024-01-12 06:54] LABS: Bedside Glucose 173 mg/dL (74-106)
--- NOTE | 2024-01-12 09:59 | PN_ITS ---
Subjective Subjective Patient seen and examined. Patient was drowsy but arousable. He was noted to have significant apneic episodes of at least 30 seconds with a saturation going down to the 70s. On waking up patient had no active complaints. She still does appear to be confused. I asked him whether he had ever been checked for sleep apnea he said yes. I asked him when and where, and he informed that he was checked for sleep apnea 1939 I could not remember where he was checked. He does not know where he is here and knows his full name and date of . He denies any pain or fever or chills and review of systems otherwise negative. Objective Data Objective Data Vital Signs: Vital Signs Temp Pulse Resp BP Pulse Ox O2 Del Method O2 Flow Rate 98.8 F 95 18 151/84 H 95 Nasal Cannula 3 01/12/24 04:12 01/12/24 04:12 01/12/24 04:12 01/12/24 04:12 01/12/24 07:15 01/12/24 07:15 01/12/24 09:26 Oxygen Flow Rate (L/min) 3 Oxygen Delivery Method Nasal Cannula Weight: 174 lb 13.225 oz Body Mass Index (BMI) 21.8 Intake & Output: Intake and Output for Last 24 Hours 01/10/24 01/11/24 01/12/24 23:59 23:59 23:59 Intake Total 375 / 855 1090 / 1090 60 / 60 Output Total 725 / 725 700 / 700 Balance 375 / 305 365 / 365 -640 / -640 Lab / Micro Data 01/12/24 05:20 01/12/24 05:20 Labs: Laboratory Results - last 24 hr 01/10/24 15:09: Urine Color Brown, Urine Clarity Turbid, Urine pH 7.0, Ur Specific [place] 1.015, Urine Protein 500 H, Urine Glucose (UA) 250 H, Urine Ketones Negative, Urine Occult Blood 250 H, Urine Nitrite Positive H, Urine Bilirubin Negative, Urine Urobilinogen Normal, Ur Leukocyte Esterase 500 H, Urine RBC > 100 SEEN, Urine WBC >100 SEEN, Ur Squamous Epith Cells 0-5 SEEN, Ur Transition Epith Cell 0-5 SEEN, Urine Bacteria 3+, Urine Mucus 0 SEEN 01/11/24 11:18: POC Glucose 235 H 01/11/24 16:12: POC Glucose 227 H 01/11/24 21:17: POC Glucose 166 H 01/12/24 05:20: WBC 8.4, RBC 5.01, Hgb 14.6, Hct 46.1, MCV 92.0, MCH 29.1, MCHC 31.7 L, RDW Std Deviation 50.2 H, RDW Coeff of Yanira 14.9 H, Plt Count 112 L, MPV 11.9, Immature Gran % (Auto) 0.700, Neut % (Auto) 71.9 H, Lymph % (Auto) 15.8 L, [place] % (Auto) 7.9, Eos % (Auto) 3.0, Baso % (Auto) 0.7, Absolute Neuts (auto) 6.0, Absolute Lymphs (auto) 1.32, Nucleated RBC % 0, Sodium 140, Potassium 3.4 L , Chloride 109 H, Carbon Dioxide 23.0, Anion Gap 7, BUN 22 H, Creatinine 1.81 H, Estim Creat Clear Calc 40.77, Est GFR (MDRD) Af Amer 47 L, Est GFR (MDRD) Non-Af 39 L, BUN/Creatinine Ratio 12.2, Glucose 186 H, Calcium 9.1 01/12/24 06:35: POC Glucose 173 H Micro: Microbiology 01/10/24 15:09 Urine Catheter - Maddox Urine Culture - Preliminary Staphylococcus aureus 01/10/24 17:00 Mucosa - Nose SARS-CoV-2, Influenza & RSV (PCR) - Final Physical Exam Const alert General Appearance: cooperative Orientation / Consciousness: confused and lethargic HEENT normocephalic, head/scalp atraumatic and moist oral mucous membranes Eyes PERRL and EOMs intact bilaterally Neck supple and no JVD Lymph Lymphatic: no lymphadenopathy noted and no lymphedema noted Resp normal respiratory effort, normal air movement and clear to auscultation bilaterally Cardio regular rate, regular rhythm, S1 normal heart sound, S2 normal heart sound and no murmurs GI normal to inspection, nondistended, normoactive bowel sounds Extremity normal capillary refill, no clubbing, cyanosis or edema and no calf tenderness General Extremity: no tenderness to palpation of joints or extremities Skin General Skin Exam: no breakdown Neuro CN's II-XII intact bilaterally, no focal motor deficits, no sensory deficits noted and deep tendon reflexes 2+ bilaterally Motor Exam: strength 5/5 throughout and general weakness Psych cooperative and affect normal Psych Narrative: confused Assessment & Plan Assessment/Plan (1) Encephalopathy acute: (2) Acute UTI: PLAN: Plan #Acute encephalopathy due to UTI * patient remains confused. * urinalysis showed evidence of UTI * urine cultures growing Staph aureus. * DC'd IV ceftriaxone. switch to PO bactrim based on sensitivities. * * #UTI: as above # Hypothyroidism * TSH was very low at 0.064. FRee T4 is slightly high at 1.49 and fee T3 is low at 1.7. * I initially thought that patient might have hyperparathyroidism but it turns out that patient actually has hypothyroidism and is on Synthroid. He is on Synthroid 175 mcg daily. Will cut down his dose of Synthroid to 100 mcg daily * Will hold off on getting thyroid ultrasound. * * #Probable sleep apnea * Patient noted to have significant apneic episodes of up to 30 seconds while sleeping and also had hypoxia associated with these apneic episodes. Saturation went down to the 70s. * will benefit from follow up with pulmonology for sleep study on outpatient basis * #History of colon cancer: has colostomy bag in place. #CKD III: CR was 1.69 on admission. Cr is 1.81 today. Baseline Cr is ~ 2.1. Will monitor #Type 2 diabetes mellitus: * on ISS. Accuchecks ACHS. * Appears to be diet controlled. * His A1c on 06/23/2023 was 7.1. #History of LLE DVT: diagnosed in Mach 2023. on eliquis DVT prophylaxis: on eliquis. Disposition: family opting for placement. Case management on board. Charges/Coding Visit Charges Inpatient E&M: 87342 Subs Hosp L2
[2024-01-12] MEDS: Insulin Lispro 100 UNIT/ML INSULN.PEN SC ×2 (11:23→21:54)
[2024-01-12 11:42] LABS: Bedside Glucose 210 mg/dL (74-106)
--- NOTE | 2024-01-12 12:14 | ST.MBS ---
Modified Barium Swallow Patient Information Study Date: 01/12/24 Study Time: 13:00 Direct Billable Minutes: 130 Total Minutes procedure & reportin Diagnosis: Encephalopathy acute G93.4; Acute UTI N39.0 Referring Physician: Cristel Leal Reason for Referral: Objectively assess swallow function, assess risk for aspiration, and determine recommendations for least restrictive diet textures and compensatory strategies to improve safety of swallow. Medical History: PMH: DVT, Enteritis, Cholelithiasis, Lactic acidosis, Encephalopathy due to infection, Acute hypoxemic respiratory failure, Complicated UTI, Severe sepsis with acute organ dysfunction, Aspiration into respiratory tract, FIOR, Colon cancer. Hx of CVA (2013 per pt, Chronic L sided weakness per RN). Pt presented to [facility] ED 01/10/2024 w/ chief complaints of AMS, agitated, and pulling out his Maddox catheter. His son called EMS as he thought patient might have accidentally dislodged or pulled Maddox catheter. Pt has colostomy and chronic indwelling Maddox catheter. History of recurrent UTI and sepsis. Patient further admitted for management of acute UTI and AMS. Current Diet Ordered: NPO - ok for sips and chips Dentition: Natural Teeth, Decay and Missing Teeth Mental Status: Impaired (AMS, able to follow commands for evaluation) Respiratory Status: Oxygenating on 3L/M nasal cannula Penetration-Aspiration Scale Penetration-Aspiration Scale: OBJECTIVE ASSESSMENT OF SWALLOW FUNCTION (QUANTITATIVE ? PER TRIAL): PENETRATION / ASPIRATION SCALE (GREER): 1 = does not enter airway 2 = enters airway/above vocal folds/ejected 3 = enters airway/above vocal folds/not ejected 4 = enters airway/contacts vocal folds/ejected 5 = enters airway/contacts vocal folds/not ejected 6 = enters airway/below vocal folds/ejected 7 = enters airway/below vocal folds/not ejected despite effort 8 = enters airway/below vocal folds/no effort VIDEOFLOROSCOPIC SCALE SCORE (GREER): Grade I = aspiration of material that has penetrated into the laryngeal vestibule, intact cough reflex Grade II = aspiration < 10 % of the bolus, intact cough reflex Grade III = aspiration of < 10 % of the bolus, reduced cough reflex or aspiration of > 10 % of the bolus, intact cough reflex Grade IV = aspiration of > 10 % of the bolus, reduced cough reflex Penetration-Aspiration Scale Score Thin Liquid via teaspoon: Result: 1= does not enter airway Thin Liquid via teaspoon Trial 2: Result: 8= enters airway/below vocal folds/no effort Thin Liquid via small single sip: cup: Result: 5= enters airways/contacts vocal folds/not ejected [place] Thick Liquid via large single sip: cup: Result: 2= enter airway/above vocal folds/ejected Pudding via teaspoon: Result: 1= does not enter airway Comment: Esophageal screen - Retention of pudding in the lower esophagus w/ retrograde flow to the upper esophagus. [place] Thick Liquid via large single sip: cup Trial 2: Result: 5= enters airways/contacts vocal folds/not ejected Comment: Esophageal screen - Retention in the mid-lower esophagus w/ retrograde flow to the upper esophagus. [place] Thick Liquid via teaspoon: Result: 8= enters airway/below vocal folds/no effort [place] Thick Liquid via teaspoon: Result: 1= does not enter airway Comment: Esophageal screen - Retention in the mid-lower esophagus w/ retrograde flow to the upper esophagus. [place] Thick Liquid via small single sip: cup: Result: 5= enters airways/contacts vocal folds/not ejected Thin Liquid via single sip: straw: Result: 5= enters airways/contacts vocal folds/not ejected Thin Liquid via single sip: straw Effortful swallow: Result: 7= enters airways/below vocal folds/not ejected despite effort Thin Liquid via single sip: straw Chin tuck: Result: 8= enters airway/below vocal folds/no effort Thin Liquid via single sip: straw Left head turn: Result: 5= enters airways/contacts vocal folds/not ejected Thin Liquid via small single sip: cup w/ R head tilt: Result: 8= enters airway/below vocal folds/no effort [place] Thick Liquid via teaspoon Trial 2: Result: 1= does not enter airway [place] Thick Liquid via small single sip: cup: Result: 5= enters airways/contacts vocal folds/not ejected Comment: post prandial aspiration [place] Thick Liquid via small single sip: cup Chin tuck: Result: 5= enters airways/contacts vocal folds/not ejected [place] Thick Liquid via small single sip: cup Chin tuck Trial 2: Result: 8= enters airway/below vocal folds/no effort Thin liquid via single sip: straw (large) w/ cued cough and re-swallow: Result: 5= enters airways/contacts vocal folds/not ejected Thin liquid via single sip: straw w/ cued cough and re-swallow Trial 2: Result: 8= enters airway/below vocal folds/no effort Oral Phase Labial Seal: Interlabial escape, no progression to anterior lip Tongue Control During Bolus Hold: Posterior escape of greater than half of bolus Bolus Transport/Lingual Motion: Repetitive/disorganized tongue motion Oral Residue: Residue collection on oral structures Pharyngeal Phase Initiation of Pharyngeal Swallow: Bolus head in pyriforms Soft Palate Elevation: Trace column of contrast/air between soft palate and pharyngeal wall Laryngeal Elevation: Partial superior movement thyroid cart/partial apprx aryt-epig petiole Anterior Hyoid Excursion: Partial anterior movement Epiglottic Movement: Partial inversion (inconsistent) Laryngeal Vestibule Closure at Height of Swallow: Incomplete; narrow column of air/contrast in laryngeal vestibule Pharyngeal Stripping Wave: Present - diminished Pharyngoesophageal Segment Opening: Parital distension and partial duration; parital obstruction of flow Tongue Base Retraction: Narrow column of contrast between tongue base & post. pharyngeal wall Pharyngeal Residue: Collection of residue within or on pharyngeal structures Esophageal Phase Esophageal Clearance: Esophageal retention w/ retrograde flow below pharyngoesophageal seg. Treatment Strategies Effects of treatment strategies attemped:: Cued cough and re-swallow = somewhat effective. Chin tuck = not effective. Effortful swallow = not effective. Head tilt R = not effective Head turn L = not effective. Diagnosis/Impression Diagnosis: Severe oropharyngeal dysphagia R13.12; Esophageal dysphagia R13.14 Impression: The oral phase is primarily marked by... -Poor bolus control w/ premature posterior loss of >1/2 of various consistencies to the pyriforms prior to swallow onset. -Disorganized tongue motion for A-P transport. -Did not assess mastication of cookie due to poor esophageal clearance of liquids and pudding. The pharyngeal phase is primarily marked by... -Delayed swallow onset. -Decreased airway closure during the swallow due to decreased anterior hyoid excursion, laryngeal elevation, and inconsistent epiglottic inversion. -SILENT aspiration of thin liquids by tsp, nectar/mildly thick liquids by tsp, thin liquids by straw, thin liquids via cup w/ head tilt, nectar/mildly thick liquids w/ chin tuck, and thin liquids via straw w/ cued cough and re-swallow. Cough and re-swallow is somewhat effective in decreasing amount of aspiration, but aspiration persisted despite use of this strategy. The esophageal phase is primarily marked by... -Retention of pudding in the lower esophagus w/ retrograde flow to the upper esophagus. -Retention of mildly/nectar thick and honey thick liquids in the mid-lower esophagus w/ retrograde flow to the upper esophagus. -Pt is at risk for reflux aspiration. Recommendations Diet: Thin Liquids (Ok for full liquid diet) Comment: Frequent oral care. Full liquid diet until GI intervention. After GI work up, ok to advance to PUREE / THIN, as RAILWAY ENGINEER was unable to complete cookie trial today due to poor esophageal clearance. Compensatory Strategies: Small Bites, Small Sips (Cue cough and re-swallow after each sip), Slow Rate, Sitting upright and Remain sitting upright for 30 minutes after PO intake (60min after oral intake) Supervision: Total Feed (FOR LIQUIDS TO ENSURE SMALL SIP SIZE) Recommend Repeat Modified Barium Swallow: Yes (4-6 weeks after implementation of oropharyngeal strengthening exercise program. Consider repeat MBSS sooner if worsening respiratory status or poor diet tolerance.) Need for Skilled Speech Therapy Services: Yes Comment: Continued dysphagia therapy. POC to include... -Ongoing assessment of diet tolerance. Monitor respiratory status closely. -Once cleared for solids by GI, please resume puree / thin diet, then RAILWAY ENGINEER will trial solids at bedside to consider the patient for further diet advancement. -Train pt in use of small sips, cough and re-swallow to promote independence completing meal w/ use of compensatory strategies. -Train pt in oropharyngeal exercise program (lingual resistance/coordination, Ai, Effortful, Tres, CTAR). Recommended Referrals: GI Consult Education Completed: 1. Described result of evaluation., 2. Pt understands evaluation & agrees with goals and treatment plan. and 7. Pt requires further education on strategies & risks. Status Active ST Patient: Active Contact Information [facility] Speech Therapy:: Ya Lua M.A. CCC-RAILWAY ENGINEER? Speech-Language Pathologist?? [facility] [address] [place] [address]? [email or web address]?? [phone]
[2024-01-12] MEDS: Ferrous Sulfate 325 MG Tablet PO ×2 (12:58→17:13)
[2024-01-12] MEDS: Finasteride 5 MG Tablet PO (12:59)
[2024-01-12] MEDS: Smz/Tmp Ds Tablet 1 TABLET PO (12:59)
--- NOTE | 2024-01-12 14:02 | CASEMGMT ---
Social Work This SW called family to inquire about patients social security number as none is listed in patients chart. Son was able to provide number, [phone]. Social Security number was added to patients medical record. ELLA Kelly, INSULATION BLANKET MAKER
--- NOTE | 2024-01-12 15:00 | CASEMGMT ---
YANDY was informed by RN TARIK that patient's daughter would like patient to go to [facility] if it is recommended. Therapy saw patient today and they are recommending placement. YANDY asked Nadine to send a referral to [facility].
--- NOTE | 2024-01-12 15:06 | CASEMGMT ---
Addendum entered by Nadine Betts 01/13/24 08:06: [facility] has accepted. Nadine Betts DC Planning Asst. Original Note: Discharge Planning Referral sent via [facility] to [facility]. Nadine Betts DC Planning Asst.
[2024-01-12] MEDS: Smz/Tmp Ds Tablet 0.5 TABLET PO (17:13)
[2024-01-12 17:25] LABS: Bedside Glucose 139 mg/dL (74-106)
--- NOTE | 2024-01-12 19:20 | EX.PCM.CON.G ---
HPI Consult Data Date of Consult: 01/12/24 HPI Narrative Reason for Consultation: Dysphagia and failed swallowing study HPI Narrative: EMELIA JOHNSON, is a 73 M was brought to ED by EMS for being confused agitated. His son called EMS as he thought patient might have accidentally dislodged or pulled Maddox catheter. Patient has severe: With colostomy and chronic indwelling Maddox catheter. History of recurrent UTI and sepsis. Denies fever. Patient himself states that when he has infection/UTI he gets confused. Patient has Maddox catheter and draining urine clear and yellow. In ED, no fever vitals in acceptable range. Patient further admitted and ED physician ordered IV vancomycin and Zosyn. He underwent a swallowing study and it displayed: -The esophageal phase is primarily marked by... -Retention of pudding in the lower esophagus w/ retrograde flow to the upper esophagus. -Retention of mildly/nectar thick and honey thick liquids in the mid-lower esophagus w/ retrograde flow to the upper esophagus. -Pt is at risk for reflux aspiration. [facility] Medical History DVT (deep venous thrombosis) Enteritis Cholelithiasis Acidosis, lactic Encephalopathy due to infection Acute hypoxemic respiratory failure Complicated urinary tract infection Severe sepsis with acute organ dysfunction Aspiration into respiratory tract FIOR (acute kidney injury) Colon cancer Home Medications ?Medication ?Instructions ?Recorded ?Last Taken ?Type finasteride 5 mg tablet 5 mg PO DAILY prostate 06/22/23 Unknown History levothyroxine 175 mcg tablet 175 mcg PO DAILY thyroid 06/22/23 Unknown History apixaban 5 mg tablet (Eliquis) 10 mg (2 x 5 mg) PO BID #66 tabs 06/26/23 Unknown Rx ferrous sulfate 325 mg (65 mg 325 mg PO BIDCM iron #1 TAB 06/26/23 01/09/24 Rx iron) tablet Allergy/AdvReac Type Severity Reaction Status Date / Time No Known Allergies Allergy Verified 06/22/23 20:14 Social History Smoking Status: Former smoker ROS ROS Narrative 14 system ROS cannot be completely obtained Has colostomy with soft formed stool in the bag. His son not present near the bedside Review of Systems ROS Unobtainable: due to encephalopathy Physical Exam Const alert General Appearance: cooperative Orientation / Consciousness: confused and lethargic HEENT normocephalic, head/scalp atraumatic and moist oral mucous membranes Eyes PERRL and EOMs intact bilaterally Neck supple and no JVD Lymph Lymphatic: no lymphadenopathy noted and no lymphedema noted Resp normal respiratory effort, normal air movement and clear to auscultation bilaterally Cardio regular rate, regular rhythm, S1 normal heart sound, S2 normal heart sound and no murmurs GI normal to inspection, nondistended, normoactive bowel sounds Extremity normal capillary refill, no clubbing, cyanosis or edema and no calf tenderness General Extremity: no tenderness to palpation of joints or extremities Skin General Skin Exam: no breakdown Neuro CN's II-XII intact bilaterally, no focal motor deficits, no sensory deficits noted and deep tendon reflexes 2+ bilaterally Motor Exam: strength 5/5 throughout and general weakness Psych cooperative and affect normal Psych Narrative: confused Lab / Micro Data 01/13/24 05:50 01/13/24 05:50 Labs: Laboratory Results - last 24 hr 01/12/24 16:56: POC Glucose 139 H 01/12/24 21:49: POC Glucose 174 H 01/13/24 05:50: WBC 5.9, RBC 5.13, Hgb 15.1, Hct 46.8, MCV 91.2, MCH 29.4, MCHC 32.3, RDW Std Deviation 50.0 H, RDW Coeff of [place] 14.8 H, Plt Count 103 L, MPV 12.3 H, Immature Gran % (Auto) 0.500, Neut % (Auto) 62.1, Lymph % (Auto) 22.3, [place] % (Auto) 10.5 H, Eos % (Auto) 3.7, Baso % (Auto) 0.9, Absolute Neuts (auto) 3.7, Absolute Lymphs (auto) 1.31, Nucleated RBC % 0, Sodium 139, Potassium 3.4 L, Chloride 108 H, Carbon Dioxide 23.0, Anion Gap 7, BUN 22 H, Creatinine 1.58 H, Estim Creat Clear Calc 46.70, Est GFR (MDRD) Af Amer 55 L, Est GFR (MDRD) Non-Af 46 L, BUN/Creatinine Ratio 13.9, Glucose 158 H, Calcium 9.0 01/13/24 06:45: POC Glucose 153 H 01/13/24 10:14: POC Glucose 159 H Micro: Microbiology 01/10/24 14:46 Blood Culture (Wb) - Anticubital Right Blood Culture - Preliminary No growth in 48 hours. 01/10/24 15:09 Urine Catheter - Maddox Urine Culture - Final Meth. resistant Staph. aureus Assessment & Plan Assessment/Plan (1) Encephalopathy acute: PLAN: Plan This 73-year-old gentleman being admitted for further evaluation of acute encephalopathy and having failed swallow study. Acute encephalopathy, as possible etiology of his esophageal dysphagia. Along with achalasia, pseudo achalasia, esophageal stricture, esophageal ring. He will undergo an upper endoscopy to evaluate his upper GI tract. He was explained alternatives, risk, benefits include not withstanding bleeding, infection, sepsis, perforation, need for emergent urgent . He will have an ASA of 3.
[2024-01-12] MEDS: 0.9% Saline Lock 10 ML Syringe IV (21:57)
[2024-01-12 23:22] LABS: Bedside Glucose 174 mg/dL (74-106)
[2024-01-13] VITALS (15 sets, daily range): BP systolic 78–143; BP diastolic 49–107; PULSE 77–92; RESP 16–18; TEMP 35.7–36.4; O2SAT 93–100; BMI 21.8
[2024-01-13 06:16] LABS: Absolute Lymphocyte Count 1.31 X10^3/uL (0.83-4.51); Absolute Neutrophil Count 3.7 X10^3/uL (2.0-7.7); Basophil# 0.05 X10^3/uL; Basophil% 0.9 % (0-1); Eosinophil# 0.22 X10^3/uL; Eosinophils% 3.7 % (0-5); Hematocrit 46.8 % (40-54); Hemoglobin 15.1 g/dL (13.0-16.5); Lymphocyte # 1.31 X10^3/ul (0.83-4.51); Lymphocyte % 22.3 % (19-41); Mean Corp Hgb Conc 32.3 g/dL (32-36); Mean Corpuscular Hgb 29.4 pg (27.0-32.0); Mean Corpuscular Volume 91.2 fL (80-94); Mean Platelet Vol. 12.3 fl (6.2-12.0); Monocyte# 0.62 X10^3/uL; Monocyte% 10.5 % (0-10); NRBC Flagged by Analyzer 0 % (0-5); Neutrophil # 3.65 X10^3/uL (2.7-7.7); Neutrophil % 62.1 % (47-70); Platelet Count 103 K/mm3 (150-450); RBC Distribution Width CV 14.8 % (11.6-14.6); Red Blood Count 5.13 M/mm3 (4.6-6.2); White Blood Count 5.9 K/mm3 (4.4-11.0)
[2024-01-13] MEDS: Insulin Lispro 100 UNIT/ML INSULN.PEN SC ×2 (06:46→20:59)
[2024-01-13 06:51] LABS: Anion Gap 7 (5-15); BUN 22 mg/dL (7-18); BUN/Creat Ratio 13.9 RATIO (10-20); Chloride 108 mmol/L (98-107); Creatinine, Serum 1.58 mg/dL (0.70-1.30); EST Glomerular Filtration Rate 46 mL/min (>60); Est Glom Filt Rate - Afr Amer 55 mL/min (>60); Glucose 158 mg/dL (74-106); Potassium 3.4 mmol/L (3.5-5.1); Sodium Level 139 mmol/L (136-145)
[2024-01-13 07:17] LABS: Bedside Glucose 153 mg/dL (74-106)
--- NOTE | 2024-01-13 07:44 | CASEMGMT ---
[facility] accepted patient. SW will follow up with family. Plan: [facility] when medically ready Gosia RUBY
[2024-01-13] MEDS: Finasteride 5 MG Tablet PO (08:29)
[2024-01-13] MEDS: APIXABAN 5 MG TABLET PO ×2 (08:29→20:45)
[2024-01-13] MEDS: Potassium Chloride 10mEq/100mL 10 MEQ/100 ML IV.SOLN. 100 MEQ IV BOLUS ×3 (08:29→10:57)
[2024-01-13] MEDS: Smz/Tmp Ds Tablet 0.5 TABLET PO ×2 (08:29→16:22)
[2024-01-13 10:33] LABS: Bedside Glucose 159 mg/dL (74-106)
--- NOTE | 2024-01-13 10:51 | CASEMGMT ---
Social Work Patients daughter notified that patient was accepted at [facility], daughter in agreement with transfer when medically ready. Ricarda Guevara, HIP HOP DANCE INSTRUCTOR, GARMENT PATTERNMAKER
--- NOTE | 2024-01-13 11:44 | PRE.ANES_ITS ---
ASA Classification* ASA Classification ASA Classification: 4 Assessment & Plan Anesthesia* Anesthesia Assessment Anesthesia Assessment: Discussed sedation and/or anesthesia options, risks, benefits, and alternatives with patient/parents/legal guardian/POA. Questions invited. The patient/parents/legal guardian/POA seems to understand and agrees to proceed with anesthesia plan. Reviewed the physical assessment, medical history, allergy history and patient home medications list prior to surgery/procedure/anesthetic and documented any changes. Performed airway and anesthesia risk assessments. Anesthesia Type Anesthesia Type: MAC (see written pre anesthesia record for full assessment) Anesthesia Focused Assessment* Temperature: 97.4 F Pulse Rate: 83 Blood Pressure: 136/107 Respiratory Rate: 16 Pulse Ox: 97 Airway Assessment Mouth opens: >3 cm Mallampati Score: II Focused Labs Anesthesia Preop lab: CBC WBC 5.9 K/mm3 (4.4-11.0) 01/13/24 05:50 RBC 5.13 M/mm3 (4.6-6.2) 01/13/24 05:50 Hgb 15.1 g/dL (13.0-16.5) 01/13/24 05:50 Hct 46.8 % (40-54) 01/13/24 05:50 Plt Count 103 K/mm3 (150-450) L 01/13/24 05:50 CHEMISTRY Potassium 3.4 mmol/L (3.5-5.1) L 01/13/24 05:50 Sodium 139 mmol/L (136-145) 01/13/24 05:50 Magnesium 2.0 mg/dL (1.6-2.6) 01/10/24 15:09 Phosphorus 2.9 mg/dL (2.5-4.9) 01/10/24 15:09 BUN 22 mg/dL (7-18) H 01/13/24 05:50 Creatinine 1.58 mg/dL (0.70-1.30) H 01/13/24 05:50 Glucose 158 mg/dL (74-106) H 01/13/24 05:50 POC Glucose 159 mg/dL (74-106) H 01/13/24 10:14 TSH 0.064 uIU/mL (0.358-3.740) L 01/11/24 05:23 COAG PT 19.3 SECONDS (11.7-14.9) H 01/10/24 17:00 Pre-Assessment Diagnosis/Proposed Procedure Planned Operative Procedure(s): egd Anesthesia History Anesthesia History - shipping and receiving clerk: Anesthesia History - shipping and receiving clerk Hx Hospitalization Any Problems With Anesthesia Cholinesterase deficiency No 01/13/24 09:59 You/Your Family Experience fever (hyperthermia) with Relationship Recent Exposure to Contagious No 01/13/24 09:59 Disease Does patient have nerve No 01/13/24 09:59 stimulator Patient instructed to have device shut off --Does patient have Pacemaker No 01/13/24 09:59 or ICD? When Was Last Pacemaker Check QUESTION #4 FULL TEXT: You/Your Family Experience fever (hyperthermia) with Anesthesia Last Oral Intake Last Oral intake: Last Oral Intake NPO since 07:30 01/13/24 09:59 Meds taken in AM with sips of Yes 01/13/24 09:59 water? Meds patient instructed to Proscar, Bactrim, Eliquis ( 01/13/24 09:59 take am of surgery Gave with applesauce followed by teaspoon of water) PONV PONV - shipping and receiving clerk: PONV - shipping and receiving clerk Female HX of Motion Sickness HX of N/V After Surgery Non-Smoker Duration of Surgery greater than 60 minutes Number of Risk Factors PONV Score Height & Weight Height & Weight: Anesthesia: Height & Weight Height 6 ft 3 in 01/13/24 09:59 Weight: 79.3 kg 01/13/24 09:59 Body Mass Index (BMI) 21.8 01/13/24 09:59 Respiratory Assessment Respiratory Assessment - shipping and receiving clerk: Respiratory Tract Infection Hx - shipping and receiving clerk Hx Respiratory Tract Infection No 01/13/24 09:59 STOP Sleep Apnea STOP Sleep Apnea - shipping and receiving clerk: STOP Sleep Apnea - shipping and receiving clerk Hx Hypertension Yes 01/12/24 12:43 Hx Sleep Apnea No 01/10/24 19:52 CPAP BIPAP Do you snore loudly (louder No 01/10/24 19:52 than talking or can be heard Do you often feel tired/ No 01/10/24 19:52 fatigued/ sleepy during daytime? Has anyone observed you stop No 01/10/24 19:52 breathing during sleep? STOP Results Negative 01/10/24 19:52 QUESTION #5 FULL TEXT : Do you snore loudly (louder than talking or can be heard through closed doors)? 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 Specify any problems Hx of Preganancy in last 3 N/A 01/10/24 19:52 Months Nurse Filling Out Transfusion ASWAIN 01/10/24 19:52 & Questions: Date: 01/10/24 01/10/24 19:52 Time: 19:56 01/10/24 19:52 Patient unable to answer at this time (ie. confused, unrespo /Reproduction History /Reproductive History - shipping and receiving clerk: /Reproductive Hx- shipping and receiving clerk Hx Now Gestational Age (in weeks): EDC: Hx Hx Para Hx Section SAB Active Medications Active Medications: Current Medications Generic Name Dose Route Start Last Admin Trade Name Freq PRN Reason Stop Dose Admin Acetaminophen 650 mg 01/10/24 19:36 Acetaminophen 325 Mg Tablet PO Q6H PRN PRN Pain 1-10 Or Fever>100.7 Apixaban 5 mg 01/10/24 22:00 01/13/24 08:29 Apixaban 5 Mg Tablet PO 5 mg BID CJ Administration Ferrous Sulfate 325 mg 01/12/24 12:00 01/13/24 11:26 Ferrous Sulfate 325 Mg Tablet PO Not Given BID@1200,1700 CJ Finasteride 5 mg 01/13/24 10:00 01/13/24 08:29 Finasteride 5 Mg Tablet PO 5 mg DAILY CJ Administration Glucagon 1 mg 01/10/24 18:04 Glucagon 1 Mg/Ml Syringe IM X1 PRN Hypoglycemia Protocol Dextrose 250 mls @ 0 mls/hr 01/10/24 18:04 Dextrose 10%-Water IV .Q0M PRN HYPOGLYCEMIA Protocol As Directed Insulin Human Lispro 0 unit 01/10/24 22:00 01/13/24 10:44 Insulin Lispro 100 Unit/Ml Insuln.Pen SC Not Given ACHS CJ Protocol Prochlorperazine Edisylate 5 mg 01/10/24 19:36 Prochlorperazine 10 Mg/2 Ml Vial IV Q4H PRN PRN Breakthrough Nausea/Vomiting Senna/Docusate Sodium 2 tablet 01/10/24 19:36 Senna/Docusate Sodium 1 Tablet PO BID PRN PRN Constipation Sodium Chloride 10 - 40 ml 01/10/24 21:49 01/12/24 21:57 0.9% Saline Lock 10 Ml Syringe IV 10 ml UD PRN Administration SALINE FLUSH Trimethoprim/Sulfamethoxazole 0.5 tablet 01/12/24 17:00 01/13/24 08:29 Smz/Tmp Ds Tablet PO 01/16/24 17:01 0.5 tablet BIDCM CJ Administration PFSH Medical History DVT (deep venous thrombosis) Enteritis Cholelithiasis Acidosis, lactic Encephalopathy due to infection Acute hypoxemic respiratory failure Complicated urinary tract infection Severe sepsis with acute organ dysfunction Aspiration into respiratory tract FIOR (acute kidney injury) Colon cancer Home Medications ?Medication ?Instructions ?Recorded ?Last Taken ?Type finasteride 5 mg tablet 5 mg PO DAILY prostate 06/22/23 Unknown History levothyroxine 175 mcg tablet 175 mcg PO DAILY thyroid 06/22/23 Unknown History apixaban 5 mg tablet (Eliquis) 10 mg (2 x 5 mg) PO BID #66 tabs 06/26/23 Unknown Rx ferrous sulfate 325 mg (65 mg 325 mg PO BIDCM iron #1 TAB 06/26/23 01/09/24 Rx iron) tablet Allergy/AdvReac Type Severity Reaction Status Date / Time No Known Allergies Allergy Verified 06/22/23 20:14 Social History Smoking Status: Former smoker Review of Systems (Anesthesia) ROS Narrative System reviewed and no additional complaints, except as documented.
--- NOTE | 2024-01-13 12:45 | EGD_PTH ---
PATIENT: EMELIA JOHNSON LOC: [facility] U#:[id number] AGE/SX: 73/M ROOM: [facility] RE01/10/[address]: Dr. Cristel Leal MD : 1950 BED: 1 DIS: 01/15/2024 SPEC #: [id number] RECD: 01/13/24 13:24 STATUS: ROSA ELENA JACK #: [id number] PRASHANT: 01/13/24 12:[address]: David Ramos DEPT: SURGICAL PATHOLOGY RECD BY: Lloyd Rowell ENTERED: 01/13/24 13:54 SP TYPE: EGD BIOPSY OT DR: MD Dr. Cristel Jensen MD Dr. Prakash Chand, MD Dr. Remus Ungur, Tissues: Esophagus, NOS Procedures: Surgery Specimen Level IV HEADER OPERATION: EGD with biopsy and dilation PRE-OP DIAGNOSIS: Dysphagia, failed swallowing study TISSUE SUBMITTED: Distal esophagus biopsy MICROSCOPIC DIAGNOSIS Distal esophagus, biopsy: Fragments of gastroesophageal mucosa with mild chronic inflammation. Intestinal metaplasia (goblet cell metaplasia) not identified. See comment. 01/14/2024 COMMENT Alcian blue/PAS stain with matched control is used in the evaluation of the specimen. The specimen predominantly consists of squamous mucosa. MICROSCOPIC DESCRIPTION Slides are reviewed. GROSS DESCRIPTION Received in fixative is one container labeled with the patient's name and designated Distal esophagus biopsy. The specimen consists of multiple irregular fragments of light carcamo soft tissue that in aggregate measure 1.0 x 0.3 x 0.1 cm. The specimen is totally submitted in one cassette. 01/13/2024 TC:3 CPT:58900,85508
--- NOTE | 2024-01-13 12:50 | PN_ITS ---
Subjective Subjective Patient seen and examined. He still remains confused. He is having dysphagia and unable to swallow properly. Review of systems otherwise negative. Gastroenterology consulted. He has remained hemodynamically stable. Objective Data Objective Data Vital Signs: Vital Signs Temp Pulse Resp BP Pulse Ox O2 Del Method O2 Flow Rate 97.4 F L 83 16 136/107 H 97 Nasal Cannula 3 01/13/24 11:44 01/13/24 11:44 01/13/24 11:44 01/13/24 11:44 01/13/24 11:44 01/13/24 10:13 01/13/24 11:44 Oxygen Flow Rate (L/min) 3 Oxygen Delivery Method Nasal Cannula Weight: 174 lb 13.225 oz Body Mass Index (BMI) 21.8 Intake & Output: Intake and Output for Last 24 Hours 01/11/24 01/12/24 01/13/24 23:59 23:59 23:59 Intake Total 1090 / 1090 450 / 450 300 / 300 Output Total 725 / 725 1500 / 1500 250 / 250 Balance 365 / 365 -1050 / -1050 50 / 50 Lab / Micro Data 01/13/24 05:50 01/13/24 05:50 Labs: Laboratory Results - last 24 hr 01/12/24 16:56: POC Glucose 139 H 01/12/24 21:49: POC Glucose 174 H 01/13/24 05:50: WBC 5.9, RBC 5.13, Hgb 15.1, Hct 46.8, MCV 91.2, MCH 29.4, MCHC 32.3, RDW Std Deviation 50.0 H, RDW Coeff of Yanira 14.8 H, Plt Count 103 L, MPV 12.3 H, Immature Gran % (Auto) 0.500, Neut % (Auto) 62.1, Lymph % (Auto) 22.3, M kriss % (Auto) 10.5 H, Eos % (Auto) 3.7, Baso % (Auto) 0.9, Absolute Neuts (auto) 3.7, Absolute Lymphs (auto) 1.31, Nucleated RBC % 0, Sodium 139, Potassium 3.4 L , Chloride 108 H, Carbon Dioxide 23.0, Anion Gap 7, BUN 22 H, Creatinine 1.58 H, Estim Creat Clear Calc 46.70, Est GFR (MDRD) Af Amer 55 L, Est GFR (MDRD) Non-Af 46 L, BUN/Creatinine Ratio 13.9, Glucose 158 H, Calcium 9.0 01/13/24 06:45: POC Glucose 153 H 01/13/24 10:14: POC Glucose 159 H Micro: Microbiology 01/10/24 14:46 Blood Culture (Wb) - Anticubital Right Blood Culture - Preliminary No growth in 48 hours. 01/10/24 15:09 Urine Catheter - Maddox Urine Culture - Final Meth. resistant Staph. aureus 01/10/24 17:00 Mucosa - Nose SARS-CoV-2, Influenza & RSV (PCR) - Final Physical Exam Const alert General Appearance: cooperative Orientation / Consciousness: confused HEENT normocephalic, head/scalp atraumatic and moist oral mucous membranes Eyes PERRL and EOMs intact bilaterally Neck supple and no JVD Lymph Lymphatic: no lymphadenopathy noted and no lymphedema noted Resp normal respiratory effort, normal air movement and clear to auscultation bilaterally Cardio regular rate, regular rhythm, S1 normal heart sound, S2 normal heart sound and no murmurs GI normal to inspection, nondistended, normoactive bowel sounds Extremity normal capillary refill, no clubbing, cyanosis or edema and no calf tenderness General Extremity: no tenderness to palpation of joints or extremities Skin General Skin Exam: no breakdown Neuro CN's II-XII intact bilaterally, no focal motor deficits, no sensory deficits noted and deep tendon reflexes 2+ bilaterally Motor Exam: strength 5/5 throughout and general weakness Psych cooperative and affect normal Psych Narrative: confused Assessment & Plan Assessment/Plan (1) Encephalopathy acute: (2) Acute UTI: PLAN: Plan #Acute encephalopathy due to UTI * patient remains confused. * urinalysis showed evidence of UTI * urine cultures growing Staph aureus. * on PO bactrim. * DC'd IV ceftriaxone. switch to PO bactrim based on sensitivities. * * #UTI: as above # Hypothyroidism * TSH was very low at 0.064. FRee T4 is slightly high at 1.49 and fee T3 is low at 1.7. * I initially thought that patient might have hyperparathyroidism but it turns out that patient actually has hypothyroidism and is on Synthroid. He is on Synthroid 175 mcg daily. Will cut down his dose of Synthroid to 100 mcg daily * patient however currently NPO due to dysphagia. * * #Probable sleep apnea * Patient noted to have significant apneic episodes of up to 30 seconds while sleeping and also had hypoxia associated with these apneic episodes. Saturation went down to the 70s. * will benefit from follow up with pulmonology for sleep study on outpatient basis * * #Dysphagia * Speech therapy on board. Gastroenterology consulted today as modified barium swallow showed oropharyngeal dysphagia * Gastroenterology consulted. For EGD today * #History of colon cancer: has colostomy bag in place. #CKD III: CR was 1.69 on admission. Creatinine is 1.58 today. #Type 2 diabetes mellitus: * on ISS. Accuchecks ACHS. * Appears to be diet controlled. * His A1c on 06/23/2023 was 7.1. #History of LLE DVT: diagnosed in Mach 2023. on eliquis DVT prophylaxis: on eliquis. Disposition: family opting for placement. Case management on board. Charges/Coding Visit Charges Inpatient E&M: 14985 Subs Hosp L2
--- NOTE | 2024-01-13 13:17 | PCM.POST.ANE ---
Anesthesia: Postop Eval I Current Vital Signs Temperature: 97.1 F Pulse Rate: 92 Blood Pressure: 81/61 Respiratory Rate: 18 Pulse Ox: 93 Oxygen Delivery Method: Nasal Cannula Oxygen Flow Rate (L/min): 3 Assessment Airway patent: Yes Spontaneous unlabored respirations: Yes Mental status: Asleep nausea: No Vomiting: No Anesthesia Complication: No Fluid Hydration Crystalloid volume administer (ml): 30 Total IV fluid infused: 30 Progress Note Anesthesia document: Postop Eval 1 completed: Yes
--- NOTE | 2024-01-13 13:35 | PCM.POSTANE2 ---
Anesthesia Postop Eval I Sum Postop Eval Completion status Anesthesia document: Postop Eval 1 completed: Yes Anesthesia Postop Eval I Summary Anesthesia Postop Eval I Summary: Anesthesia Postop Eval I: Assessment Summary Airway patent Yes 01/13/24 13:18 [email or web address] Spontaneous unlabored Yes 01/13/24 13:18 [email or web address] respirations Mental status Asleep 01/13/24 13:18 [email or web address] nausea No 01/13/24 13:18 [email or web address] Vomiting No 01/13/24 13:18 [email or web address] Anesthesia Postop Eval I: Fluid Summary Crystalloid volume administer 30 01/13/24 13:18 [email or web address] (ml) Colloids volume administered ( ml) Blood Product volume administered (ml) Total IV fluid infused 30 01/13/24 13:18 [email or web address] Anesthesia Postop Eval I: Summary Notes Anesthesia Complication No 01/13/24 13:18 [email or web address] Anesthesia Complication Comment: Post-operative progress note Anesthesia: Postop Eval II Evaluation Mental status: Awake Pain Level: 0 nausea: No Vomiting: No
[2024-01-13 16:47] LABS: Bedside Glucose 149 mg/dL (74-106)
[2024-01-13 21:40] LABS: Bedside Glucose 246 mg/dL (74-106)
[2024-01-14 04:15] VITALS: BP 125/84; PULSE 80; RESP 18; TEMP 35.5; O2SAT 96
[2024-01-14 06:08] LABS: Absolute Lymphocyte Count 1.21 X10^3/uL (0.83-4.51); Absolute Neutrophil Count 4.1 X10^3/uL (2.0-7.7); Basophil# 0.06 X10^3/uL; Eosinophil# 0.23 X10^3/uL; Eosinophils% 3.7 % (0-5); Hematocrit 45.2 % (40-54); Hemoglobin 14.4 g/dL (13.0-16.5); Lymphocyte # 1.21 X10^3/ul (0.83-4.51); Lymphocyte % 19.3 % (19-41); Mean Corp Hgb Conc 31.9 g/dL (32-36); Mean Corpuscular Hgb 29.2 pg (27.0-32.0); Mean Corpuscular Volume 91.7 fL (80-94); Mean Platelet Vol. 11.5 fl (6.2-12.0); Monocyte% 9.6 % (0-10); NRBC Flagged by Analyzer 0 % (0-5); Neutrophil # 4.14 X10^3/uL (2.7-7.7); Neutrophil % 65.8 % (47-70); Platelet Count 120 K/mm3 (150-450); RBC Distribution Width CV 14.7 % (11.6-14.6); RBC Distribution Width SD 49.5 fl (35.1-43.9); Red Blood Count 4.93 M/mm3 (4.6-6.2); White Blood Count 6.3 K/mm3 (4.4-11.0)
[2024-01-14] MEDS: Levothyroxine 100 MCG Tablet PO (06:22)
[2024-01-14 06:35] LABS: Anion Gap 6 (5-15); BUN 19 mg/dL (7-18); BUN/Creat Ratio 11.4 RATIO (10-20); Calcium,Total 8.9 mg/dL (8.5-10.1); Chloride 110 mmol/L (98-107); Creatinine, Serum 1.67 mg/dL (0.70-1.30); EST Glomerular Filtration Rate 43 mL/min (>60); Est Glom Filt Rate - Afr Amer 52 mL/min (>60); Estimated Creatinine Clearance 44.19 ml/min; Glucose 140 mg/dL (74-106); Potassium 3.8 mmol/L (3.5-5.1); Sodium Level 141 mmol/L (136-145)
[2024-01-14 06:49] LABS: Bedside Glucose 137 mg/dL (74-106)
[2024-01-14 08:06] VITALS: O2SAT 96
[2024-01-14 08:36] VITALS: BP 140/97; PULSE 85; RESP 16; TEMP 36.6; O2SAT 98
[2024-01-14] MEDS: APIXABAN 5 MG TABLET PO ×2 (08:39→21:32)
[2024-01-14] MEDS: Smz/Tmp Ds Tablet 0.5 TABLET PO ×2 (08:39→17:32)
[2024-01-14] MEDS: Finasteride 5 MG Tablet PO (08:40)
[2024-01-14] MEDS: Insulin Lispro 100 UNIT/ML INSULN.PEN SC (10:50)
[2024-01-14 11:10] LABS: Bedside Glucose 264 mg/dL (74-106)
--- NOTE | 2024-01-14 11:50 | CASEMGMT ---
Addendum entered by Nadine Betts 01/14/24 11:52: [facility] notified of possible wknd discharge. Nadine Betts DC Planning Asst. Original Note: Discharge Planning Odiliasheet placed in chart. Nadine Betts DC Planning Asst.
[2024-01-14 14:08] VITALS: BP 135/92; PULSE 84; RESP 14; TEMP 36.4; O2SAT 97
--- NOTE | 2024-01-14 14:14 | NS ---
RD talked to pt's regarding his food allergens. List was obtained with foods pt can and cannot have. RD gave this list to the dietary staff.
--- NOTE | 2024-01-14 14:41 | PN_ITS ---
Subjective Subjective Patient seen and examined. He had no complaints. Review of systems otherwise negative. He has remained hemodynamically stable. Objective Data Objective Data Vital Signs: Vital Signs Temp Pulse Resp BP Pulse Ox O2 Del Method O2 Flow Rate 97.5 F L 84 14 135/92 H 97 Nasal Cannula 2 01/14/24 14:08 01/14/24 14:08 01/14/24 14:08 01/14/24 14:08 01/14/24 14:08 01/14/24 14:08 01/14/24 14:08 Oxygen Flow Rate (L/min) 2 Oxygen Delivery Method Nasal Cannula Weight: 174 lb 13.225 oz Body Mass Index (BMI) 21.8 Intake & Output: Intake and Output for Last 24 Hours 01/12/24 01/13/24 01/14/24 23:59 23:59 23:59 Intake Total 450 / 450 300 / 420 240 / 240 Output Total 1500 / 1500 600 / 925 600 / 600 Balance -1050 / -1050 -300 / -505 -360 / -360 Lab / Micro Data 01/14/24 05:58 01/14/24 05:58 Labs: Laboratory Results - last 24 hr 01/13/24 16:21: POC Glucose 149 H 01/13/24 20:53: POC Glucose 246 H 01/14/24 05:58: WBC 6.3, RBC 4.93, Hgb 14.4, Hct 45.2, MCV 91.7, MCH 29.2, MCHC 31.9 L, RDW Std Deviation 49.5 H, RDW Coeff of Yanira 14.7 H, Plt Count 120 L, MPV 11.5, Immature Gran % (Auto) 0.600, Neut % (Auto) 65.8, Lymph % (Auto) 19.3, Bond % (Auto) 9.6, Eos % (Auto) 3.7, Baso % (Auto) 1.0, Absolute Neuts (auto) 4.1, Absolute Lymphs (auto) 1.21, Nucleated RBC % 0, Sodium 141, Potassium 3.8, Chloride 110 H, Carbon Dioxide 25.0, Anion Gap 6, BUN 19 H, Creatinine 1.67 H, Estim Creat Clear Calc 44.19, Est GFR (MDRD) Af Amer 52 L, Est GFR (MDRD) Non-Af 43 L, BUN/Creatinine Ratio 11.4, Glucose 140 H, Calcium 8.9 01/14/24 06:21: POC Glucose 137 H 01/14/24 10:49: POC Glucose 264 H Micro: Microbiology 01/10/24 14:46 Blood Culture (Wb) - Anticubital Right Blood Culture - Preliminary No growth in 48 hours. 01/10/24 15:09 Urine Catheter - Maddox Urine Culture - Final Meth. resistant Staph. aureus 01/10/24 17:00 Mucosa - Nose SARS-CoV-2, Influenza & RSV (PCR) - Final Physical Exam Const alert General Appearance: cooperative Orientation / Consciousness: confused HEENT normocephalic, head/scalp atraumatic and moist oral mucous membranes Eyes PERRL and EOMs intact bilaterally Neck supple and no JVD Lymph Lymphatic: no lymphadenopathy noted and no lymphedema noted Resp normal respiratory effort, normal air movement and clear to auscultation bilaterally Cardio regular rate, regular rhythm, S1 normal heart sound, S2 normal heart sound and no murmurs GI normal to inspection, nondistended, normoactive bowel sounds Extremity normal capillary refill, no clubbing, cyanosis or edema and no calf tenderness General Extremity: no tenderness to palpation of joints or extremities Skin General Skin Exam: no breakdown Neuro CN's II-XII intact bilaterally, no focal motor deficits, no sensory deficits noted and deep tendon reflexes 2+ bilaterally Motor Exam: strength 5/5 throughout and general weakness Psych cooperative and affect normal Psych Narrative: confused Appearance: appropriate Assessment & Plan Assessment/Plan (1) Encephalopathy acute: (2) Acute UTI: PLAN: Plan #Acute encephalopathy due to UTI * patient is improving, but does have some residual confusion * urinalysis showed evidence of UTI * urine cultures growing Staph aureus. * on PO bactrim; to complete a 5 day course * * * #UTI: as above # Hypothyroidism * TSH was very low at 0.064. FRee T4 is slightly high at 1.49 and fee T3 is low at 1.7. * I initially thought that patient might have hyperparathyroidism but it turns out that patient actually has hypothyroidism and is on Synthroid. He is on Synthroid 175 mcg daily. Will cut down his dose of Synthroid to 100 mcg daily * synthroid resumed * * #Probable sleep apnea * Patient noted to have significant apneic episodes of up to 30 seconds while sleeping and also had hypoxia associated with these apneic episodes. Saturation went down to the 70s. * will benefit from follow up with pulmonology for sleep study on outpatient basis * * #Dysphagia * Speech therapy on board. Gastroenterology consulted as modified barium swallow showed oropharyngeal dysphagia * Gastroenterology on board * had EGD yesterday which showed evidence of eosinophilic esophagitis and benign appearing esophageal stenosis which was dilated, as well as hiatal hernia. * started on a pureed diet. To advance diet as tolerated. * on IV PPI * #History of colon cancer: has colostomy bag in place. #CKD III: CR was 1.69 on admission. Cr remains at baseline. #Type 2 diabetes mellitus: * on ISS. Accuchecks ACHS. * Appears to be diet controlled. * His A1c on 06/23/2023 was 7.1. #History of LLE DVT: diagnosed in May 2023. on eliquis DVT prophylaxis: on eliquis. Disposition: for DC to SNF tomorrow Charges/Coding Visit Charges Inpatient E&M: 71642 Subs Hosp L2
[2024-01-14 15:21] VITALS: O2SAT 96
--- NOTE | 2024-01-14 15:22 | CASEMGMT ---
Social Work- PASSR completed. Coordination with DCA for d/c planning. ELLA Mcneill
--- NOTE | 2024-01-14 16:06 | CASEMGMT ---
Social Work- Pt confirms he has completed a living will and health care POA naming maricel Vance, as primary agent.? Pt notified that documents are not on file at [facility] and SW requested they be brought in for scanning into the EMR.? ELLA Mcneill
[2024-01-14 16:54] LABS: Bedside Glucose 144 mg/dL (74-106)
[2024-01-14 21:45] VITALS: BP 125/85; PULSE 85; RESP 18; TEMP 36.1; O2SAT 93
[2024-01-14 21:45] LABS: Bedside Glucose 125 mg/dL (74-106)
[2024-01-14] MEDS: Glucerna Shake 120 ML LIQUID PO (22:02)
[2024-01-15 03:30] VITALS: BP 111/99; PULSE 92; RESP 18; TEMP 36; O2SAT 94
[2024-01-15] MEDS: Levothyroxine 100 MCG Tablet PO (06:43)
[2024-01-15 07:07] LABS: Bedside Glucose 144 mg/dL (74-106)
[2024-01-15 07:23] LABS: Absolute Lymphocyte Count 1.45 X10^3/uL (0.83-4.51); Absolute Neutrophil Count 3.6 X10^3/uL (2.0-7.7); Basophil# 0.06 X10^3/uL; Eosinophils% 3.4 % (0-5); Hematocrit 44.1 % (40-54); Hemoglobin 13.7 g/dL (13.0-16.5); Lymphocyte # 1.45 X10^3/ul (0.83-4.51); Lymphocyte % 24.7 % (19-41); Mean Corp Hgb Conc 31.1 g/dL (32-36); Mean Corpuscular Hgb 28.4 pg (27.0-32.0); Mean Corpuscular Volume 91.3 fL (80-94); Mean Platelet Vol. 11.9 fl (6.2-12.0); Monocyte# 0.54 X10^3/uL; Monocyte% 9.2 % (0-10); NRBC Flagged by Analyzer 0 % (0-5); Neutrophil # 3.58 X10^3/uL (2.7-7.7); Neutrophil % 61.2 % (47-70); Platelet Count 126 K/mm3 (150-450); RBC Distribution Width CV 14.6 % (11.6-14.6); RBC Distribution Width SD 49.3 fl (35.1-43.9); Red Blood Count 4.83 M/mm3 (4.6-6.2); White Blood Count 5.9 K/mm3 (4.4-11.0)
[2024-01-15 07:43] LABS: Anion Gap 6 (5-15); BUN 16 mg/dL (7-18); BUN/Creat Ratio 9.6 RATIO (10-20); Calcium,Total 8.9 mg/dL (8.5-10.1); Chloride 108 mmol/L (98-107); Creatinine, Serum 1.67 mg/dL (0.70-1.30); EST Glomerular Filtration Rate 43 mL/min (>60); Est Glom Filt Rate - Afr Amer 52 mL/min (>60); Estimated Creatinine Clearance 44.19 ml/min; Glucose 148 mg/dL (74-106); Potassium 3.7 mmol/L (3.5-5.1); Sodium Level 139 mmol/L (136-145)
[2024-01-15 08:07] VITALS: O2SAT 93
[2024-01-15] MEDS: Finasteride 5 MG Tablet PO (08:41)
[2024-01-15] MEDS: APIXABAN 5 MG TABLET PO (08:42)
[2024-01-15] MEDS: Smz/Tmp Ds Tablet 0.5 TABLET PO (08:42)
[2024-01-15] MEDS: Glucerna Shake 120 ML LIQUID PO (08:46)
[2024-01-15 09:13] VITALS: BP 136/90; PULSE 82; RESP 17; TEMP 36.7; O2SAT 94
[2024-01-15 09:18] VITALS: BP 136/90; PULSE 82; RESP 17; TEMP 36.7; O2SAT 94
[2024-01-15] MEDS: Insulin Lispro 100 UNIT/ML INSULN.PEN SC (11:05)
[2024-01-15 11:31] LABS: Bedside Glucose 247 mg/dL (74-106)
--- NOTE | 2024-01-15 13:03 | TREXTCAR_ITS ---
Diet Diet Order/Speech Therapy: 01/14/24 11:42 Diet: Carbohydrate Controlled Food consistency:: Pureed Liquid Consistency:: Regular/Thin Diet Comments: Total feed to control sip size, SMALL SIPS, COUGH&RE-SWALLOW AFTER EACH SIP Routine Orders/Code Status Enema Type: Fleetz Enema Frequency: Daily PRN Suppository Type: Dulcolax 10mg Suppository Frequency: Daily PRN O2 Frequency: PRN Keep PO Greater than or Equal to (%): 90 Therapies Weight Bearing: Weight bearing as tolerated Physical Therapy: Eval and Treat Occupational Therapy: Eval and Treat Problem/Diagnosis (1) Encephalopathy acute: Status: Acute Code(s): G93.40 - Encephalopathy, unspecified (2) Acute UTI: Status: Acute Code(s): N39.0 - Urinary tract infection, site not specified Plan #Acute encephalopathy due to UTI * patient is improving, but does have some residual confusion * urinalysis showed evidence of UTI * urine cultures growing Staph aureus. * on PO bactrim; to complete a 5 day course * * * #UTI: as above # Hypothyroidism * TSH was very low at 0.064. FRee T4 is slightly high at 1.49 and fee T3 is low at 1.7. * I initially thought that patient might have hyperparathyroidism but it turns out that patient actually has hypothyroidism and is on Synthroid. He is on Synthroid 175 mcg daily. Will cut down his dose of Synthroid to 100 mcg daily * synthroid resumed * * #Probable sleep apnea * Patient noted to have significant apneic episodes of up to 30 seconds while sleeping and also had hypoxia associated with these apneic episodes. Saturation went down to the 70s. * will benefit from follow up with pulmonology for sleep study on outpatient basis * * #Dysphagia * Speech therapy on board. Gastroenterology consulted as modified barium swallow showed oropharyngeal dysphagia * Gastroenterology on board * had EGD yesterday which showed evidence of eosinophilic esophagitis and benign appearing esophageal stenosis which was dilated, as well as hiatal hernia. * started on a pureed diet. To advance diet as tolerated. * on IV PPI * #History of colon cancer: has colostomy bag in place. #CKD III: CR was 1.69 on admission. Cr remains at baseline. #Type 2 diabetes mellitus: * on ISS. Accuchecks ACHS. * Appears to be diet controlled. * His A1c on 06/23/2023 was 7.1. #History of LLE DVT: diagnosed in May 2023. on eliquis DVT prophylaxis: on eliquis. 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 Will order 120ml vanilla glucerna 4x daily with medpass. Will monitor weight, as available. Reviewed and approved by Luba Palencia RD, LD. Discharge Plan Admission Admit Date/Time: 01/10/24 16:43 Primary Reason for Your Visit: dysphagia, UTI Attending Provider: Cristel Leal Primary Care Provider: Jenae Franco Consulting Providers: Miguel Ortiz Instructions Patient Instructions: Dysphagia Aspiration, ED Urinary Tract Infections in Men Discharge Orders/Prescriptions Prescriptions: New sulfamethoxazole-trimethoprim 800-160 mg Tablet 0.5 tab PO BIDCM 2 Days Qty: 2 0RF levothyroxine 100 mcg Tablet 100 mcg PO DAILY@0600 Qty: 30 2RF pantoprazole 40 mg tablet,delayed release (DR/EC) 40 mg PO BID Qty: 60 2RF Continued finasteride 5 mg tablet 5 mg PO DAILY Eliquis 5 mg Tablet 10 mg PO BID Qty: 66 0RF Rx Instructions: Take 2 tabs twice a day for a total of 24 pills, then reduce to 1 pill twice a day thereafter-start the evening of 06/26/2023 ferrous sulfate 325 mg (65 mg iron) tablet 325 mg PO BIDCM Qty: 1 0RF Discontinued levothyroxine 175 mcg tablet 175 mcg PO DAILY Referrals / Follow Up: Jenae Franco MD [Primary Care Provider] - Within 1 Week Disposition Disposition (needs filled in before D/C Order can be placed): [facility]
--- NOTE | 2024-01-15 13:21 | DS.PCM_ITS ---
Providers Date of Admission: 01/10/24 Date of Discharge: 01/15/24 Primary Care Physician: Jenae Franco MD Consultations 01/13/24 08:14 Consult: Gastroenterology Routine Consulting Provider: Sam Gastroenterology Reason for Consult: Per ST post MBS EMERGENT Consult: No MD Notified: Yes Date Notified: 01/13/24 Time Notified: 08:19 Method of Notification: Text Reason For Visit: AMS Diagnosis Discharge Diagnosis (1) Encephalopathy acute: Status: Acute Code(s): G93.40 - Encephalopathy, unspecified (2) Acute UTI: Status: Acute Code(s): N39.0 - Urinary tract infection, site not specified Plan #Acute encephalopathy due to UTI * patient is improving, but does have some residual confusion * urinalysis showed evidence of UTI * urine cultures growing Staph aureus. * on PO bactrim; to complete a 5 day course * * * #UTI: as above # Hypothyroidism * TSH was very low at 0.064. FRee T4 is slightly high at 1.49 and fee T3 is low at 1.7. * I initially thought that patient might have hyperparathyroidism but it turns out that patient actually has hypothyroidism and is on Synthroid. He is on Synthroid 175 mcg daily. Will cut down his dose of Synthroid to 100 mcg daily * synthroid resumed * * #Probable sleep apnea * Patient noted to have significant apneic episodes of up to 30 seconds while sleeping and also had hypoxia associated with these apneic episodes. Saturation went down to the 70s. * will benefit from follow up with pulmonology for sleep study on outpatient basis * * #Dysphagia * Speech therapy on board. Gastroenterology consulted as modified barium swallow showed oropharyngeal dysphagia * Gastroenterology on board * had EGD yesterday which showed evidence of eosinophilic esophagitis and benign appearing esophageal stenosis which was dilated, as well as hiatal hernia. * started on a pureed diet. To advance diet as tolerated. * on IV PPI * #History of colon cancer: has colostomy bag in place. #CKD III: CR was 1.69 on admission. Cr remains at baseline. #Type 2 diabetes mellitus: * on ISS. Accuchecks ACHS. * Appears to be diet controlled. * His A1c on 06/23/2023 was 7.1. #History of LLE DVT: diagnosed in May 2023. on eliquis DVT prophylaxis: on eliquis. Disposition: for DC to SNF tomorrow Medications at Discharge Home Medications finasteride 5 mg tablet 5 mg PO DAILY prostate 06/22/23 apixaban 5 mg tablet (Eliquis) 10 mg (2 x 5 mg) PO BID #66 tabs 06/26/23 ferrous sulfate 325 mg (65 mg iron) tablet 325 mg PO BIDCM iron #1 TAB 06/26/23 levothyroxine 100 mcg tablet 100 mcg PO DAILY@0600 #30 tabs 01/15/24 pantoprazole 40 mg tablet,delayed release 40 mg PO BID #60 tabs 01/15/24 sulfamethoxazole 800 mg-trimethoprim 160 mg tablet 0.5 tab PO BIDCM 2 days #2 tabs 01/15/24 Hospital Course Operations None Procedures EGD Summary of Care Provided Minutes Spent on Discharge: 55 Hospital Course: Patient is a 73-year-old male with a past medical history as outlined was admitted to the ED on 10 of confusion and agitation. Patient had an indwelling Maddox catheter and his son called the EMS because he was concerned that he could have pulled the Maddox catheter out accidentally dislodged it. He denied any fever but had a history of recurrent UTIs. Review of systems otherwise negative. On admission urinalysis showed evidence of UTI with 3+ bacteria and elevated leukocyte esterase. He was admitted and managed for acute encephalopathy likely infectious and thought to be due to the UTI. He was started on IV vancomycin and Zosyn in the ED due to history of MRSA UTI. Antibiotics were narrowed down to vancomycin and ceftriaxone. Urine cultures grew Staph aureus so antibiotics were switched to p.o. Bactrim based on sensitivities. Labs also significant for TSH of 0.064 and free T4 which is slightly high at 1.49. Patient was on Synthroid 175 mcg daily. His Synthroid dose was cut down to 100 mcg daily due to the markedly low TSH. Hospital course was also complicated by episodes of apnea and patient was recommended to follow- up with pulmonology on outpatient basis for evaluation for sleep apnea. Gastroenterology was consulted due to patient having dysphagia. He had EGD which showed evidence of eosinophilic esophagitis and a benign-appearing esophageal stenosis which was dilated as well as hiatal hernia. Started on IV pantoprazole and subsequently switched to p.o. pantoprazole. He was discharged to a shelter facility on 01/15/2024. He was discharged on p.o. Bactrim to complete a 5-day course and also discharged on p.o. pantoprazole 40 mg twice daily. Patient seen and examined prior to discharge. He was alert and communicative and had no complaints. Had an uneventful night. Review of systems otherwise negative. Labs and vitals reviewed. Medication reviewed and reconciled. Physical Exam Const alert and no apparent distress General Appearance: cooperative and comfortable Orientation / Consciousness: awake Exam Limitations: no limitations HEENT normocephalic, head/scalp atraumatic, hearing grossly normal bilaterally and moist oral mucous membranes Mouth: oral and palatal mucosa normal Eyes PERRL and EOMs intact bilaterally Neck supple and no JVD Lymph Lymphatic: no lymphadenopathy noted and no lymphedema noted Resp normal respiratory effort, normal air movement and clear to auscultation bilaterally Cardio regular rate, regular rhythm, S1 normal heart sound, S2 normal heart sound and no murmurs GI normal to inspection, nondistended, normoactive bowel sounds Extremity normal to inspection, full ROM, normal capillary refill, no clubbing, cyanosis or edema and no calf tenderness General Extremity: no tenderness to palpation of joints or extremities Skin no rashes or lesions noted General Skin Exam: no breakdown Neuro CN's II-XII intact bilaterally, no focal motor deficits, no sensory deficits noted and deep tendon reflexes 2+ bilaterally Motor Exam: strength 5/5 throughout and general weakness Psych cooperative and affect normal Appearance: appropriate Weight / BMI Weight Weight: 174 lb 13.225 oz Body Mass Index (BMI) 21.8 ABG / Lab / Microbiology Data 01/15/24 07:00 01/15/24 07:00 Laboratory: Laboratory Results - last 24 hr 01/14/24 16:35: POC Glucose 144 H 01/14/24 21:25: POC Glucose 125 H 01/15/24 06:45: POC Glucose 144 H 01/15/24 07:00: WBC 5.9, RBC 4.83, Hgb 13.7, Hct 44.1, MCV 91.3, MCH 28.4, MCHC 31.1 L, RDW Std Deviation 49.3 H, RDW Coeff of Yanira 14.6, Plt Count 126 L, MPV 11.9, Immature Gran % (Auto) 0.500, Neut % (Auto) 61.2, Lymph % (Auto) 24.7, Humphreys % (Auto) 9.2, Eos % (Auto) 3.4, Baso % (Auto) 1.0, Absolute Neuts (auto) 3.6, Absolute Lymphs (auto) 1.45, Nucleated RBC % 0, Sodium 139, Potassium 3.7, Chloride 108 H, Carbon Dioxide 26.0, Anion Gap 6, BUN 16, Creatinine 1.67 H, Estim Creat Clear Calc 44.19, Est GFR (MDRD) Af Amer 52 L, Est GFR (MDRD) Non-Af 43 L, BUN/Creatinine Ratio 9.6 L, Glucose 148 H, Calcium 8.9 01/15/24 11:04: POC Glucose 247 H Microbiology: Microbiology 01/10/24 14:46 Blood Culture (Wb) - Anticubital Right Blood Culture - Preliminary No growth in 48 hours. 01/10/24 15:09 Urine Catheter - Maddox Urine Culture - Final Meth. resistant Staph. aureus 01/10/24 17:00 Mucosa - Nose SARS-CoV-2, Influenza & RSV (PCR) - Final D/C Instructions Discharge Diet: Low fat / Low cholesterol Discharge Activity: Return to Normal Activity Weight Bearing Status: Weight bearing as tolerated Call your doctor if you observe: Fever of 101 or Higher, Shortness of breath, Dizziness, Swelling in the ankles and Chest pain Meaningful Use Info Meaningful Use Meaningful Use Diagnoses (Choose all that apply): None applicable Ischemic Stroke Statin Dosing Therapy Reference: STATIN DOSE THERAPY REFERENCE: * Patients > 75 years receive moderate or high dose statin therapy. * Patients 75 years or YOUNGER should receive HIGH intensity statin dose unless contraindicated. You will be required to document reason for non-treatment if statin daily dose does not meet guidelines. HIGH DOSE STATIN THERAPY DAILY Atorvastatin > than or = to 40 mg Rosuvastatin > than or = to 20 mg Amlodipine + Atorvastatin > than or = to 2.5/40 mg Ezetimibe + Simvastatin 10/80 mg Simvastatin 80mg Discharge Plan Admission Admit Date/Time: 01/10/24 16:43 Primary Reason for Your Visit: dysphagia, UTI Attending Provider: Cristel Leal Primary Care Provider: Jenae Franco Consulting Providers: Miguel Ortiz Instructions Patient Instructions: Dysphagia Aspiration, ED Urinary Tract Infections in Men Discharge Orders/Prescriptions Prescriptions: New sulfamethoxazole-trimethoprim 800-160 mg Tablet 0.5 tab PO BIDCM 2 Days Qty: 2 0RF levothyroxine 100 mcg Tablet 100 mcg PO DAILY@0600 Qty: 30 2RF pantoprazole 40 mg tablet,delayed release (DR/EC) 40 mg PO BID Qty: 60 2RF Continued finasteride 5 mg tablet 5 mg PO DAILY Eliquis 5 mg Tablet 10 mg PO BID Qty: 66 0RF Rx Instructions: Take 2 tabs twice a day for a total of 24 pills, then reduce to 1 pill twice a day thereafter-start the evening of 06/26/2023 ferrous sulfate 325 mg (65 mg iron) tablet 325 mg PO BIDCM Qty: 1 0RF Discontinued levothyroxine 175 mcg tablet 175 mcg PO DAILY Referrals / Follow Up: Jenae Franco MD [Primary Care Provider] - Within 1 Week Disposition Disposition (needs filled in before D/C Order can be placed): Shelter Facility Charges/Coding Visit Charges Inpatient E&M: 74753 Disch Hosp >30min
[2024-01-15 14:51] VITALS: BP 122/88; PULSE 92; RESP 18; TEMP 36.7; O2SAT 93
--- NOTE | 2024-01-17 15:27 | OP.CCLET_ITS ---
01/13/2024 Jenae Franco Md Re : Upper GI endoscopy procedure for Bernabe Nicole Dear [place] This procedure was performed on December. My impressions and recommendations are as follows: Impressions : - Esophageal mucosal changes consistent with eosinophilic esophagitis. - Benign-appearing esophageal stenoses. Dilated. - Hiatal hernia. - No gross lesions in the stomach. - Normal second portion of the duodenum. - Biopsies were taken with a cold forceps for evaluation of eosinophilic esophagitis. Recommendations : - Return patient to [facility] for ongoing care. - Full liquid diet. - Continue present medications. - Await pathology results. - Repeat upper endoscopy in 1 month for retreatment. -Esophageal stent placement as an outpatient for permanent relief of severe esophageal strictures likely secondary to eosinophilic esophagitis -Protonix 40 mg p.o. twice daily My findings are described in the full procedure note, which is enclosed. If I can be of further assistance, please feel free to contact me at . Sincerely, David Ramos, 01/13/2024 1:11:55 PM This report has been signed electronically.
--- NOTE | 2024-01-17 15:27 | OP.EGD_ITS ---
Patient Name: Bernabe Nicole Procedure Date: 01/13/2024 12:47 PM Date of : 1950 Age: 73 Procedure: Upper GI endoscopy Indications: Dysphagia Providers: David Ramos DO Referring MD: Toni King Medicines: Monitored Anesthesia Care Patient Profile: This is a 73 year old male. Refer to note in patient chart for documentation of history and physical. Patient has symptoms of chronic dysphagia and dysphagia with liquids. Complications: No immediate complications. Procedure: Pre-Anesthesia Assessment: - Prior to the procedure, a History and Physical was performed, and patient medications and allergies were reviewed. The patient is competent. The risks and benefits of the procedure and the sedation options and risks were discussed with the patient. All questions were answered and informed consent was obtained. Patient identification and proposed procedure were verified by the physician in the pre-procedure area. Mental Status Examination: alert and oriented. Airway Examination: normal oropharyngeal airway and neck mobility. Respiratory Examination: clear to auscultation. CV Examination: normal. Prophylactic Antibiotics: The patient does not require prophylactic antibiotics. Prior Anticoagulants: The patient has taken no anticoagulant or antiplatelet agents except for NSAID medication. ASA Grade Assessment: II - A patient with mild systemic disease. After reviewing the risks and benefits, the patient was deemed in satisfactory condition to undergo the procedure. The anesthesia plan was to use monitored anesthesia care (MAC). Immediately prior to administration of medications, the patient was re-assessed for adequacy to receive sedatives. The heart rate, respiratory rate, oxygen saturations, blood pressure, adequacy of pulmonary ventilation, and response to care were monitored throughout the procedure. The physical status of the patient was re-assessed after the procedure. After obtaining informed consent, the endoscope was passed under direct vision. Throughout the procedure, the patient's blood pressure, pulse, and oxygen saturations were monitored continuously. The Endoscope was introduced through the mouth, and advanced to the second part of duodenum. The upper GI endoscopy was accomplished without difficulty. The patient tolerated the procedure well. Scope In: 12:59:30 PM Scope Out: 1:06:22 PM Total Procedure Duration Time 0 hours 6 minutes 52 seconds Findings: Mucosal changes including ringed esophagus, small-caliber esophagus, white plaques, circumferential folds, longitudinal markings and stenosis were found in the entire esophagus. Esophageal findings were graded using the Eosinophilic Esophagitis Endoscopic Reference Score (EoE-EREFS) as: Edema Grade 1 Present (decreased clarity or absence of vascular markings), Rings Grade 3 Severe (distinct rings that do not permit passage of diagnostic 8-10 mm endoscope), Exudates Grade 1 Mild (scattered white lesions involving less than 10 percent of the esophageal surface area), Furrows Grade 2 Severe (vertical lines with clear depth) and Stricture present. Biopsies were obtained from the proximal and distal esophagus with cold forceps for histology of suspected eosinophilic esophagitis. Verification of patient identification for the specimen was done. Estimated blood loss was minimal. Three benign-appearing, intrinsic severe stenoses were found 34 to 39 cm from the incisors. The stenoses were traversed after dilation. A guidewire was placed and the scope was withdrawn. Dilation was performed with a Savary dilator with no resistance at 60 Fr. The dilation site was examined and showed moderate improvement in luminal narrowing. A hiatal hernia was present. No gross lesions were noted in the stomach. The second portion of the duodenum was normal. Impression: - Esophageal mucosal changes consistent with eosinophilic esophagitis. - Benign-appearing esophageal stenoses. Dilated. - Hiatal hernia. - No gross lesions in the stomach. - Normal second portion of the duodenum. - Biopsies were taken with a cold forceps for evaluation of eosinophilic esophagitis. Recommendation: - Return patient to hospital [facility] for ongoing care. - Full liquid diet. - Continue present medications. - Await pathology results. - Repeat upper endoscopy in 1 month for retreatment. -Esophageal stent placement as an outpatient for permanent relief of severe esophageal strictures likely secondary to eosinophilic esophagitis -Protonix 40 mg p.o. twice daily Procedure Code(s): --- Professional --- 35603, Esophagogastroduodenoscopy, flexible, transoral; with insertion of guide wire followed by passage of dilator(s) through esophagus over guide wire 03475, 59,51, Esophagogastroduodenoscopy, flexible, transoral; with biopsy, single or multiple CPT copyright 2021 [employer]. All rights reserved. The codes documented in this report are preliminary and upon director fraud review may be revised to meet current compliance requirements. David Ramos DO 01/13/2024 1:11:55 PM This report has been signed electronically. Number of Addenda: 0 Note Initiated On: 01/13/2024 12:47 PM
== END 2024-01-15 15:50 | disposition skilled nursing facility (03) | DRG 698 ==
LOC: ED 16:50 → PCU 18:08
PROVIDERS: Internal Medicine Gastroenterology; Admitting Provider Internal Medicine; Emergency Provider Emergency Medicine; PCP Internal Medicine; Referring Provider Emergency Medicine; Visit Provider Student in an Organized Health Care Education/Training Program
PROC: 0DJ08ZZ Inspection of Upper Intestinal Tract, Via Natural or Artificial Opening Endoscopic (ICD-10-PCS; CPT 43235; principal; 2024-01-13 12:40)
DX: T83.511A Infection and inflammatory reaction due to indwelling urethral catheter, initial encounter (principal); G93.41 Metabolic encephalopathy; C18.9 Malignant neoplasm of colon, unspecified; E87.1 Hypo-osmolality and hyponatremia; K22.2 Esophageal obstruction; K20.0 Eosinophilic esophagitis; E11.22 Type 2 diabetes mellitus with diabetic chronic kidney disease; N18.32 Chronic kidney disease, stage 3b; E03.9 Hypothyroidism, unspecified; Z93.3 Colostomy status; G47.30 Sleep apnea, unspecified; K44.9 Diaphragmatic hernia without obstruction or gangrene; R13.12 Dysphagia, oropharyngeal phase; N36.8 Other specified disorders of urethra; Y73.8 Miscellaneous gastroenterology and urology devices associated with adverse incidents, not elsewhere classified; Z87.891 Personal history of nicotine dependence; Z79.01 Long term (current) use of anticoagulants; Z79.890 Hormone replacement therapy; Z86.718 Personal history of other venous thrombosis and embolism; Z79.899 Other long term (current) drug therapy
CPT/HCPCS: 36415; 51702; 71045; 74230; 80048; 81001; 82550; 82962; 83605; 83735; 84100; 84439; 84443; 84481; 85025; 85610; 85730; 87040; 87077; 87086; 87088; 87186; 87631; 88305; 92526; 92610; 92611; 93005; 94668; 94762; 97110; 97162; 97530; 97802; 97803; 99284; J7050; A4216; C1769; J2405

== ENCOUNTER 2024-02-23 11:12 | Day surgery (SDC) | payer MEDICARE, BC, SELFPAY ==
[2024-02-23] VITALS (10 sets, daily range): BP systolic 113–173; BP diastolic 84–99; PULSE 82–93; RESP 16–20; TEMP 36.1–36.3; O2SAT 93–99; BMI 25.7
--- NOTE | 2024-02-23 | ESO_PTH ---
PATIENT: EMELIA JOHNSON LOC: EN U#:[id number] AGE/SX: 73/M ROOM: RE02/23/[address]: Dr. David Ramos DO : 1950 BED: DIS: 02/23/2024 SPEC #: [id number] RECD: 02/23/24 14:12 STATUS: ROSA ELENA REKarmen #: [id number] PRASHANT: 02/23/24 00:[address]: David Ramos DEPT: SURGICAL PATHOLOGY RECD BY: Usman Garland ENTERED: 02/23/24 14:13 SP TYPE: CHAS WEBER DR: Jenae Franco MD Tissues: Esophagus, NOS Procedures: Special Stain Group I Surgery Specimen Level IV Alcian Blue/PAS (control) HEADER OPERATION: EGD with biopsy, APC and botox PRE-OP DIAGNOSIS: Encephalopathy acute TISSUE SUBMITTED: Distal esophagus biopsy MICROSCOPIC DIAGNOSIS Distal esophagus, biopsy: Gastroesophageal junctional mucosa with mild chronic inflammation. No evidence of goblet cell metaplasia. See comment. AM. 02/25/2024 COMMENT Alcian blue/PAS stain with matched control supports the above diagnosis. MICROSCOPIC DESCRIPTION Slides are reviewed. GROSS DESCRIPTION Received in fixative is one container labeled with the patient's name and designated Distal esophagus biopsy. The specimen consists of multiple irregular fragments of light carcamo soft tissue that in aggregate measure 1.5 x 0.5 x 0.1 cm. The specimen is totally submitted in one cassette. AM. 02/23/2024 TC:3 CPT:74589,57668
--- NOTE | 2024-02-23 11:25 | PRE.ANES_ITS ---
ASA Classification* ASA Classification ASA Classification: 3 Assessment & Plan Anesthesia* Anesthesia Assessment Anesthesia Assessment: Discussed sedation and/or anesthesia options, risks, benefits, and alternatives with patient/parents/legal guardian/POA. Questions invited. The patient/parents/legal guardian/POA seems to understand and agrees to proceed with anesthesia plan. Reviewed the physical assessment, medical history, allergy history and patient home medications list prior to surgery/procedure/anesthetic and documented any changes. Performed airway and anesthesia risk assessments. Anesthesia Type Anesthesia Type: MAC Anesthesia Focused Assessment* Airway Assessment Mouth opens: >3 cm Mallampati Score: II Focused Labs Anesthesia Preop lab: CBC WBC 6.0 K/mm3 (4.4-11.0) 01/17/24 06:50 RBC 4.49 M/mm3 (4.6-6.2) L 01/17/24 06:50 Hgb 13.3 g/dL (13.0-16.5) 01/17/24 06:50 Hct 40.7 % (40-54) 01/17/24 06:50 Plt Count 116 K/mm3 (150-450) L 01/17/24 06:50 CHEMISTRY Potassium 3.6 mmol/L (3.5-5.1) 01/17/24 06:50 Sodium 141 mmol/L (136-145) 01/17/24 06:50 Magnesium 2.0 mg/dL (1.6-2.6) 01/10/24 15:09 Phosphorus 2.9 mg/dL (2.5-4.9) 01/10/24 15:09 BUN 20 mg/dL (7-18) H 01/17/24 06:50 Creatinine 1.93 mg/dL (0.70-1.30) H 01/17/24 06:50 Glucose 141 mg/dL (74-106) H 01/17/24 06:50 POC Glucose 247 mg/dL (74-106) H 01/15/24 11:04 TSH 0.599 uIU/mL (0.358-3.740) 01/17/24 06:50 COAG PT 19.3 SECONDS (11.7-14.9) H 01/10/24 17:00 Pre-Assessment Diagnosis/Proposed Procedure Planned Operative Procedure(s): EGD Anesthesia History Anesthesia History - 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 When Was Last Pacemaker Check QUESTION #4 FULL TEXT: You/Your Family Experience fever (hyperthermia) with Anesthesia Last Oral Intake Last Oral intake: Last Oral Intake NPO since Meds taken in AM with sips of water? Meds patient instructed to take am of surgery PONV PONV - instructional paraprofessional: PONV - instructional paraprofessional Female No 02/22/24 09:14 HX of Motion Sickness No 02/22/24 09:14 HX of N/V After Surgery No 02/22/24 09:14 Non-Smoker Yes 02/22/24 09:14 Duration of Surgery greater No 02/22/24 09:14 than 60 minutes Number of Risk Factors 1 02/22/24 09:14 PONV Score Low Risk 02/22/24 09:14 Height & Weight Height & Weight: Anesthesia: Height & Weight Height 6 ft 3 in 01/14/24 13:54 Respiratory Assessment Respiratory Assessment - instructional paraprofessional: Respiratory Tract Infection Hx - instructional paraprofessional Hx Respiratory Tract Infection No 02/22/24 09:14 STOP Sleep Apnea STOP Sleep Apnea - instructional paraprofessional: STOP Sleep Apnea - instructional paraprofessional Hx Hypertension No 02/22/24 09:14 Hx Sleep Apnea No 02/22/24 09:14 CPAP BIPAP Do you snore loudly (louder No 02/22/24 09:14 than talking or can be heard Do you often feel tired/ No 02/22/24 09:14 fatigued/ sleepy during daytime? Has anyone observed you stop No 02/22/24 09:14 breathing during sleep? STOP Results Negative 02/22/24 09:14 QUESTION #5 FULL TEXT : Do you snore loudly (louder than talking or can be heard through closed doors)? Tobacco Use History Tobacco Use History - instructional paraprofessional: Tobacco Use History - instructional paraprofessional Tobacco Use Smoking Status Former smoker 02/22/24 09:14 Hx Tobacco Use No 02/22/24 09:14 Years Smoking Packs Smoked per Day Smoking Cessation Date was Yes - quit smoking within 15 02/22/24 09:14 within the last 15 years years Hx Smoking Cessation Date Hx Smoking Cessation Counseling Hematologic Medial History Hematologic Hx - instructional paraprofessional: Hematologic Medical Hx - blackener Hx of Blood Transfusion No 02/22/24 09:14 Hx of Transfusion in last 3 No 02/22/24 09:14 Months Date of Last Transfusion (if within last 3 months) Ever experience any problems No 02/22/24 09:14 with transfusion(s)? Specify any problems Hx of Preganancy in last 3 N/A 02/22/24 09:14 Months Nurse Filling Out Transfusion [email or web address] 02/22/24 09:14 & Questions: Date: 02/22/24 02/22/24 09:14 Time: 09:17 02/22/24 09:14 Patient unable to answer at this time (ie. confused, unrespo /Reproduction History /Reproductive History - instructional paraprofessional: /Reproductive Hx- instructional paraprofessional Hx Now No 02/22/24 09:14 Gestational Age (in weeks): EDC: Hx Hx Para Hx Section SAB No 02/22/24 09:14 PFSH Medical History Wears glasses Low iron Stroke/cerebrovascular accident Former smoker Colostomy in place Family history of abdominal aortic aneurysm repair DVT (deep venous thrombosis) Enteritis Cholelithiasis Acidosis, lactic Encephalopathy due to infection Acute hypoxemic respiratory failure Complicated urinary tract infection Severe sepsis with acute organ dysfunction Aspiration into respiratory tract FIOR (acute kidney injury) Colon cancer Home Medications ?Medication ?Instructions ?Recorded ?Last Taken ?Type finasteride 5 mg tablet 5 mg PO DAILY prostate 06/22/23 Unknown History ferrous sulfate 325 mg (65 mg 325 mg PO BIDCM iron #1 TAB 06/26/23 01/09/24 Rx iron) tablet levothyroxine 100 mcg tablet 100 mcg PO DAILY@0600 #30 tabs 01/15/24 Unknown Rx pantoprazole 40 mg tablet,delayed 40 mg PO BID #60 tabs 01/15/24 Unknown Rx release albuterol sulfate 90 mcg/actuation 1 - 2 puff inhalation 4X/DAY PRN 02/22/24 Unknown History aerosol inhaler wheezing apixaban 5 mg tablet (Eliquis) 5 mg PO BID 02/22/24 02/08/24 History Allergy/AdvReac Type Severity Reaction Status Date / Time No Known Allergies Allergy Verified 02/22/24 09:11 Surgical History Hx of abdominal surgery Hx of endarterectomy (~2020) Social History Smoking Status: Former smoker Tobacco: How many years used: 50 Review of Systems (Anesthesia) ROS Narrative System reviewed and no additional complaints, except as documented.
--- NOTE | 2024-02-23 12:28 | PCM.HP.BLA ---
History and Physical Date of Admission: 02/23/24 Reason for Consultation: Dysphagia and failed swallowing study HPI Narrative: EMELIA JOHNSON, is a 73 M was brought to ED by EMS for being confused agitated. His son called EMS as he thought patient might have accidentally dislodged or pulled Maddox catheter. Patient has severe: With colostomy and chronic indwelling Maddox catheter. History of recurrent UTI and sepsis. Denies fever. Patient himself states that when he has infection/UTI he gets confused. Patient has Maddox catheter and draining urine clear and yellow. In ED, no fever vitals in acceptable range. Patient further admitted and ED physician ordered IV vancomycin and Zosyn. He underwent a swallowing study and it displayed: -The esophageal phase is primarily marked by... -Retention of pudding in the lower esophagus w/ retrograde flow to the upper esophagus. -Retention of mildly/nectar thick and honey thick liquids in the mid-lower esophagus w/ retrograde flow to the upper esophagus. -Pt is at risk for reflux aspiration. [facility] Medical History DVT (deep venous thrombosis) Enteritis Cholelithiasis Acidosis, lactic Encephalopathy due to infection Acute hypoxemic respiratory failure Complicated urinary tract infection Severe sepsis with acute organ dysfunction Aspiration into respiratory tract FIOR (acute kidney injury) Colon cancer Home Medications ?Medication ?Instructions ?Recorded ?Last Taken ?Type finasteride 5 mg tablet 5 mg PO DAILY prostate 06/22/23 Unknown History levothyroxine 175 mcg tablet 175 mcg PO DAILY thyroid 06/22/23 Unknown History apixaban 5 mg tablet (Eliquis) 10 mg (2 x 5 mg) PO BID #66 tabs 06/26/23 Unknown Rx ferrous sulfate 325 mg (65 mg 325 mg PO BIDCM iron #1 TAB 06/26/23 01/09/24 Rx iron) tablet Allergy/AdvReac Type Severity Reaction Status Date / Time No Known Allergies Allergy Verified 06/22/23 20:14 Social History Smoking Status: Former smoker ROS ROS Narrative 14 system ROS cannot be completely obtained Has colostomy with soft formed stool in the bag. His son not present near the bedside Review of Systems ROS Unobtainable: due to encephalopathy Physical Exam Const alert General Appearance: cooperative Orientation / Consciousness: confused and lethargic HEENT normocephalic, head/scalp atraumatic and moist oral mucous membranes Eyes PERRL and EOMs intact bilaterally Neck supple and no JVD Lymph Lymphatic: no lymphadenopathy noted and no lymphedema noted Resp normal respiratory effort, normal air movement and clear to auscultation bilaterally Cardio regular rate, regular rhythm, S1 normal heart sound, S2 normal heart sound and no murmurs GI normal to inspection, nondistended, normoactive bowel sounds Extremity normal capillary refill, no clubbing, cyanosis or edema and no calf tenderness General Extremity: no tenderness to palpation of joints or extremities Skin General Skin Exam: no breakdown Neuro CN's II-XII intact bilaterally, no focal motor deficits, no sensory deficits noted and deep tendon reflexes 2+ bilaterally Motor Exam: strength 5/5 throughout and general weakness Psych cooperative and affect normal Psych Narrative: confused Lab / Micro Data 01/13/24 05:50 01/13/24 05:50 Labs: Laboratory Results - last 24 hr 01/12/24 16:56: POC Glucose 139 H 01/12/24 21:49: POC Glucose 174 H 01/13/24 05:50: WBC 5.9, RBC 5.13, Hgb 15.1, Hct 46.8, MCV 91.2, MCH 29.4, MCHC 32.3, RDW Std Deviation 50.0 H, RDW Coeff of Yanira 14.8 H, Plt Count 103 L, MPV 12.3 H, Immature Gran % (Auto) 0.500, Neut % (Auto) 62.1, Lymph % (Auto) 22.3, [place] % (Auto) 10.5 H, Eos % (Auto) 3.7, Baso % (Auto) 0.9, Absolute Neuts (auto) 3.7, Absolute Lymphs (auto) 1.31, Nucleated RBC % 0, Sodium 139, Potassium 3.4 L, Chloride 108 H, Carbon Dioxide 23.0, Anion Gap 7, BUN 22 H, Creatinine 1.58 H, Estim Creat Clear Calc 46.70, Est GFR (MDRD) Af Amer 55 L, Est GFR (MDRD) Non-Af 46 L, BUN/Creatinine Ratio 13.9, Glucose 158 H, Calcium 9.0 01/13/24 06:45: POC Glucose 153 H 01/13/24 10:14: POC Glucose 159 H Micro: Microbiology 01/10/24 14:46 Blood Culture (Wb) - Anticubital Right Blood Culture - Preliminary No growth in 48 hours. 01/10/24 15:09 Urine Catheter - Maddox Urine Culture - Final Meth. resistant Staph. aureus Assessment & Plan Assessment/Plan (1) Encephalopathy acute: PLAN: Plan This 73-year-old gentleman being admitted for further evaluation of acute encephalopathy and having failed swallow study. Acute encephalopathy, as possible etiology of his esophageal dysphagia. Along with achalasia, pseudo achalasia, esophageal stricture, esophageal ring. He will undergo an upper endoscopy to evaluate his upper GI tract. He was explained alternatives, risk, benefits include not withstanding bleeding, infection, sepsis, perforation, need for emergent urgent . He will have an ASA of 3. I have examined the patient and the H&P has been reviewed. There are no clinical changes since date of exam.
[2024-02-23] MEDS: Botulinum Toxin A 100 Units Vial IJ (12:49)
[2024-02-23] MEDS: 0.9% Saline Lock 10 ML Syringe IV (12:50)
[2024-02-23] MEDS: 0.9% Normal Saline (Pres. free 10 ML Vial (12:50)
--- NOTE | 2024-02-23 13:00 | OP.EGD_ITS ---
Patient Name: Bernabe Nicole Procedure Date: 02/23/2024 11:51 AM Date of : 1950 Age: 73 Procedure: Upper GI endoscopy Indications: Dysphagia Providers: David Ramos DO Referring MD: Jenae Franco Md Medicines: Monitored Anesthesia Care Patient Profile: This is a 73 year old male. Refer to note in patient chart for documentation of history and physical. Patient has symptoms of dysphagia with both liquids and solids. His most recent EGD for dilation was within the past three months. Complications: No immediate complications. Procedure: Pre-Anesthesia Assessment: - Prior to the procedure, a History and Physical was performed, and patient medications and allergies were reviewed. The patient is competent. The risks and benefits of the procedure and the sedation options and risks were discussed with the patient. All questions were answered and informed consent was obtained. Patient identification and proposed procedure were verified by the physician. Mental Status Examination: normal. Respiratory Examination: clear to auscultation. Prophylactic Antibiotics: The patient does not require prophylactic antibiotics. Prior Anticoagulants: The patient has taken no anticoagulant or antiplatelet agents except for NSAID medication. ASA Grade Assessment: III - A patient with severe systemic disease. After reviewing the risks and benefits, the patient was deemed in satisfactory condition to undergo the procedure. The anesthesia plan was to use monitored anesthesia care (MAC). Immediately prior to administration of medications, the patient was re-assessed for adequacy to receive sedatives. The heart rate, respiratory rate, oxygen saturations, blood pressure, adequacy of pulmonary ventilation, and response to care were monitored throughout the procedure. The physical status of the patient was re-assessed after the procedure. After obtaining informed consent, the endoscope was passed under direct vision. Throughout the procedure, the patient's blood pressure, pulse, and oxygen saturations were monitored continuously. The Endoscope was introduced through the mouth, and advanced to the second part of duodenum. The upper GI endoscopy was accomplished without difficulty. The patient tolerated the procedure well. Scope In: 12:38:04 PM Scope Out: 12:53:38 PM Total Procedure Duration Time 0 hours 15 minutes 34 seconds Findings: A moderate Schatzki ring was found in the lower third of the esophagus. Biopsies were taken with a cold forceps for histology. Verification of patient identification for the specimen was done. Estimated blood loss was minimal. Coagulation for tissue destruction using argon plasma at 0.3 liters/minute and 20 grover was successful. Estimated blood loss was minimal. Abnormal motility was noted in the esophagus. The cricopharyngeus was abnormal. There are extra peristaltic waves in the esophageal body. The distal esophagus/lower esophageal sphincter is spastic, but gives up passage to the endoscope. Tertiary peristaltic waves are noted. Area was successfully injected with 100 units botulinum toxin. A medium-sized hiatal hernia was present. No gross lesions were noted in the entire examined stomach. No gross lesions were noted in the first portion of the duodenum. Impression: - Moderate Schatzki ring. Biopsied. Treated with argon plasma coagulation (APC). - Abnormal esophageal motility, consistent with achalasia. Injected with botulinum toxin. - Medium-sized hiatal hernia. - No gross lesions in the entire stomach. - No gross lesions in the first portion of the duodenum. Recommendation: - Discharge patient to home. - Resume previous diet. - Continue present medications. - Await pathology results. - Repeat upper endoscopy in 3 months for surveillance. Procedure Code(s): --- Professional --- 09663, Esophagogastroduodenoscopy, flexible, transoral; with ablation of tumor(s), polyp(s), or other lesion(s) (includes pre- and post-dilation and guide wire passage, when performed) 03550, 59, Esophagogastroduodenoscopy, flexible, transoral; with biopsy, single or multiple 12628, 59,51, Esophagogastroduodenoscopy, flexible, transoral; with directed submucosal injection(s), any substance CPT copyright 2021 [employer]. All rights reserved. The codes documented in this report are preliminary and upon manager transportation planning review may be revised to meet current compliance requirements. David Ramos DO 02/23/2024 1:00:27 PM This report has been signed electronically. Number of Addenda: 0 Note Initiated On: 02/23/2024 11:51 AM
--- NOTE | 2024-02-23 13:01 | OP.CCLET_ITS ---
02/23/2024 Jenae Franco Md Re : Upper GI endoscopy procedure for Bernabe Nicole Dear [place] This procedure was performed on Friday, February 23, 2024. My impressions and recommendations are as follows: Impressions : - Moderate Schatzki ring. Biopsied. Treated with argon plasma coagulation (APC). - Abnormal esophageal motility, consistent with achalasia. Injected with botulinum toxin. - Medium-sized hiatal hernia. - No gross lesions in the entire stomach. - No gross lesions in the first portion of the duodenum. Recommendations : - Discharge patient to home. - Resume previous diet. - Continue present medications. - Await pathology results. - Repeat upper endoscopy in 3 months for surveillance. My findings are described in the full procedure note, which is enclosed. If I can be of further assistance, please feel free to contact me at . Sincerely, Daivd Ramos, 02/23/2024 1:00:27 PM This report has been signed electronically.
--- NOTE | 2024-02-23 13:03 | PCM.POST.ANE ---
Anesthesia: Postop Eval I Current Vital Signs Temperature: 97 F Pulse Rate: 93 Blood Pressure: 113/85 Respiratory Rate: 18 Pulse Ox: 99 Oxygen Delivery Method: Nasal Cannula Oxygen Flow Rate (L/min): 4 Assessment Airway patent: Yes Spontaneous unlabored respirations: Yes Mental status: Asleep nausea: No Vomiting: No Anesthesia Complication: No Fluid Hydration Crystalloid volume administer (ml): 30 Total IV fluid infused: 30 Progress Note Anesthesia document: Postop Eval 1 completed: Yes
--- NOTE | 2024-02-23 13:22 | PCM.POSTANE2 ---
Anesthesia Postop Eval I Sum Postop Eval Completion status Anesthesia document: Postop Eval 1 completed: Yes Anesthesia Postop Eval I Summary Anesthesia Postop Eval I Summary: Anesthesia Postop Eval I: Assessment Summary Airway patent Yes 02/23/24 13:04 [email or web address] Spontaneous unlabored Yes 02/23/24 13:04 [email or web address] respirations Mental status Asleep 02/23/24 13:04 [email or web address] nausea No 02/23/24 13:04 [email or web address] Vomiting No 02/23/24 13:04 [email or web address] Anesthesia Postop Eval I: Fluid Summary Crystalloid volume administer 30 02/23/24 13:04 [email or web address] (ml) Colloids volume administered ( ml) Blood Product volume administered (ml) Total IV fluid infused 30 02/23/24 13:04 [email or web address] Anesthesia Postop Eval I: Summary Notes Anesthesia Complication No 02/23/24 13:04 [email or web address] Anesthesia Complication Comment: Post-operative progress note Anesthesia: Postop Eval II Evaluation Mental status: Awake Pain Level: 0 nausea: No Vomiting: No
[2024-02-23 13:30] LABS: Bedside Glucose 202 mg/dL (74-106)
== END 2024-02-23 14:02 | disposition home or self-care (01) ==
LOC: EN 11:14 → AC 11:15
PROVIDERS: PCP Internal Medicine; Referring Provider Internal Medicine; Visit Provider Internal Medicine Gastroenterology
PROC: 0DJ08ZZ Inspection of Upper Intestinal Tract, Via Natural or Artificial Opening Endoscopic (ICD-10-PCS; CPT 43235; principal; 2024-02-23 11:55)
DX: K20.90 Esophagitis, unspecified without bleeding (principal); Z93.3 Colostomy status; Z87.891 Personal history of nicotine dependence; K44.9 Diaphragmatic hernia without obstruction or gangrene; G93.40 Encephalopathy, unspecified; K22.2 Esophageal obstruction; Z79.01 Long term (current) use of anticoagulants; Z79.890 Hormone replacement therapy; Z79.899 Other long term (current) drug therapy; Z86.718 Personal history of other venous thrombosis and embolism
CPT/HCPCS: 43270; 43239; 43236; 82962; 88305; 88312; A4216; J0585; J2405; J3490

== ENCOUNTER 2024-07-01 09:21 | Inpatient (IN) | payer MEDICARE, BC, SELFPAY ==
[2024-07-01] VITALS (8 sets, daily range): BP systolic 103–158; BP diastolic 58–95; PULSE 104–114; RESP 16–22; TEMP 36.6–37.2; O2SAT 91–96; BMI 28.4; BMI 27.9
--- NOTE | 2024-07-01 09:28 | ED.RN ---
EMS BROIUGHT PT IN FROM HOME WITH C/O UTI SX. INDWELLING CATH IN PLACE. URINE IN TUBING LOOKS DARK WITH SEDIMENT AND ODOR. PT IS AFEBRILE. HX OF CVA AND DVT IN L LEG. PT HAS COLOSTOMY AND STATES HIS SON AND DAUGHTER TAKE CARE OF HIM. USUALLY AMBULATES WITH A WALKER. LEFT LEG IS SWOLLEN WITH NON PITTING EDEMA
--- NOTE | 2024-07-01 09:36 | EX.ED.DYSGE1 ---
HPI History of Present Illness Chief Complaint: Complaint Detail of Chief Complaint: Concern for urinary tract infection Informant: patient Narrative Narrative: Patient presents with concern for urinary tract infection. Complains of dysuria since yesterday. Had nausea and vomited twice. He has history of chronic indwelling Maddox catheter that he states he has changed usually about every 10 days. Patient also has history of colon cancer and has a colostomy. Denies fever chills or sweats. Denies significant abdominal pain. [facility] Medical History Wears glasses Low iron Stroke/cerebrovascular accident Former smoker Colostomy in place Family history of abdominal aortic aneurysm repair DVT (deep venous thrombosis) Enteritis Cholelithiasis Acidosis, lactic Encephalopathy due to infection Acute hypoxemic respiratory failure Complicated urinary tract infection Severe sepsis with acute organ dysfunction Aspiration into respiratory tract FIOR (acute kidney injury) Colon cancer Home Medications ?Medication ?Instructions ?Recorded ?Last Taken ?Type finasteride 5 mg tablet 5 mg PO DAILY prostate 06/22/23 06/30/24 History ferrous sulfate 325 mg (65 mg 325 mg PO BIDCM iron #1 TAB 06/26/23 01/09/24 Rx iron) tablet levothyroxine 100 mcg tablet 100 mcg PO DAILY@0600 #30 tabs 01/15/24 06/30/24 Rx pantoprazole 40 mg tablet,delayed 40 mg PO BID #60 tabs 01/15/24 06/30/24 Rx release albuterol sulfate 90 mcg/actuation 1 - 2 puff inhalation 4X/DAY PRN 02/22/24 Unknown History aerosol inhaler wheezing apixaban 5 mg tablet (Eliquis) 5 mg PO BID 02/22/24 06/30/24 History amlodipine 5 mg tablet 5 mg PO DAILY 07/01/24 06/30/24 History aspirin 81 mg tablet,delayed 81 mg PO DAILY 07/01/24 06/30/24 History release ergocalciferol (vitamin D2) 1,250 1,250 mcg PO MO 07/01/24 06/26/24 History mcg (50,000 unit) capsule fluticasone fur. 100 mcg-umeclid 1 ea inhalation DAILY 07/01/24 06/30/24 History 62.5 mcg-vilant 25 mcg inhalat.powder (Trelegy Ellipta) icosapent ethyl 1 gram capsule 2 g PO BID 07/01/24 06/30/24 History levothyroxine 150 mcg tablet 150 mcg PO DAILY 07/01/24 06/30/24 History linagliptin 5 mg tablet (Tradjenta) 5 mg PO DAILY 07/01/24 06/30/24 History rosuvastatin 20 mg tablet 20 mg PO QHS 07/01/24 06/30/24 History Allergy/AdvReac Type Severity Reaction Status Date / Time No Known Allergies Allergy Verified 02/23/24 11:43 Surgical History Hx of abdominal surgery Hx of endarterectomy (~2020) Social History Smoking Status: Former smoker Tobacco: How many years used: 50 ROS ROS ED Review of Systems ROS Unobtainable: other Constitutional Constitutional ED: Reports lethargy; Denies chills, fever(s), sweats or weight loss Eyes Eyes: Denies blurry vision, change in vision or diplopia ENT ENT ED: Denies rhinorrhea or sore throat Cardiovascular Cardiovascular: Denies chest pain, orthopnea or racing heartbeat Respiratory/Chest Respiratory/Chest: Denies cough, dyspnea, dyspnea on exertion, orthopnea or sputum Gastrointestinal Gastrointestinal: Reports nausea and vomiting; Denies abdominal pain or diarrhea Genitourinary Genitourinary ED: Reports dysuria; Denies hematuria or urinary frequency Musculoskeletal Musculoskeletal: Denies arthralgias, back pain, myalgias or neck pain Integumentary Denies abscess, Abrasions or rash Neurologic Neurologic: Denies headache(s) or weakness Psychiatric Psychiatric: Denies anxiety, depression or suicidal thoughts Endocrine Endocrinology: Denies polydipsia, polyphagia or polyuria Hematologic/Lymphatic Hematologic/Lymphatic: Denies easy bleeding, easy bruising or lymphadenopathy Allergic/Immunologic Allergic/Immunologic ED: Denies mouth swelling, tongue swelling or urticaria EXAM Physical Exam Const Vital Signs: 07/01/24 09:22 07/01/24 10:25 Temperature 97.9 F 98.6 F Temperature Source Oral Oral Pulse Rate 106 H 107 H Respiratory Rate 18 18 Blood Pressure 150/63 H 132/90 H Blood Pressure Mean 92 104 Pulse Ox 95 95 Oxygen Delivery Method Room Air Room Air Positive well nourished and well developed General Appearance ED: well developed and NAD HEENT Reports TM's clear and moist mucous membranes normocephalic and atraumatic; Negative for trauma or tenderness Tympanic Membrane ED: Yes TM's clear Eyes PERRL and EOMs intact bilaterally General Eye ED: Negative for pale conjunctiva or scleral icterus Neck no lymphadenopathy, supple and no JVD General: Negative for tenderness Chest Wall inspection of chest normal and palpation of chest normal Chest: Negative for tenderness Resp normal respiratory effort and clear to auscultation bilaterally Effort and Inspection: Negative for respiratory distress or pain with movement Auscultation: Negative for rhonchi, wheezes or diminished lung sounds Cardio regular rate, regular rhythm, S1 normal heart sound, S2 normal heart sound and no murmurs Peripheral Pulses: pulses 2+ throughout GI normal to inspection, nondistended, normoactive bowel sounds, soft to palpation, non-tender, non-distended and no masses GI Narrative: Patient with colostomy left lower quadrant. Seems to have brown stool in the bag without evidence of gross blood. No significant tenderness to the abdomen. Narrative: Chronic indwelling Maddox catheter. There is a foul odor to the urine Back/Spine no CVA tenderness and no thoracic nor lumbar tenderness Extremity normal to inspection General Extremety ED: Negative for edema General Extremity: Negative for edema Neuro oriented x3, CN's II-XII intact bilaterally, no sensory deficits noted and gait normal Sensorium / Orientation: awake, alert, oriented to person, oriented to place and oriented to time Motor Exam: strength 5/5 throughout and strength abnormal Psych mental status grossly normal Skin no rashes or lesions noted and no wounds MDM MDM MDM Narrative Medical decision making narrative: Presents to the emergency department with concern for UTI. He has had some dysuria since yesterday. He vomited twice today. He has had some chills. Denies fever. Denies back pain. Denies significant abdominal pain. IV line established. CBC with differential obtained showed a white count 17,000 with hemoglobin 15.5 and platelet count of 107. Chemistries showed a potassium that was elevated at 5.5 however there was some hemolysis. BUN 19 and creatinine 2.13. Glucose 184. Lactate elevated 2.4. Urinalysis positive for 500 leukocyte esterase and 10-25 WBCs with no bacteria seen. There was a foul odor to the urine. I did start patient on Rocephin IV. Urine culture sent as well as blood cultures. He was given Zofran for nausea. Will discuss with hospitalist evaluate for admission for UTI. Patient's had prior episodes of sepsis and I am concerned this may continue to worsen as far as symptoms. Lab Data Attestation: I reviewed the patient's lab results. Labs: Laboratory Results - last 24 hr 07/01/24 07/01/24 09:42 10:04 WBC 17.0 H RBC 5.20 Hgb 15.5 Hct 47.5 MCV 91.3 MCH 29.8 MCHC 32.6 RDW Std Deviation 50.0 H RDW Coeff of Yanira 14.9 H Plt Count 107 L MPV 13.1 H Immature Gran % (Auto) 0.400 Neut % (Auto) 87.3 H Lymph % (Auto) 6.5 L [place] % (Auto) 5.0 Eos % (Auto) 0.4 Baso % (Auto) 0.4 Absolute Neuts (auto) 14.9 H Absolute Lymphs (auto) 1.10 Nucleated RBC % 0 Sodium 136 Potassium 5.5 H Chloride 99 Carbon Dioxide 22.9 Anion Gap 14 BUN 19 Creatinine 2.13 H Estim Creat Clear Calc 33.28 L Est GFR (MDRD) Non-Af 32 L BUN/Creatinine Ratio 9.1 L Glucose 184 H Lactic Acid 2.4 H* Calcium 9.5 Urine Color Grace Urine Clarity Cloudy Urine pH 6.0 Ur Specific [place] 1.010 Urine Protein 100 H Urine Glucose (UA) Normal Urine Ketones 5 H Urine Occult Blood 250 H Urine Nitrite Positive H Urine Bilirubin 6 H Urine Urobilinogen 12 H Ur Leukocyte Esterase 500 H Urine RBC > 100 SEEN Urine WBC 10-25 SEEN Ur Squamous Epith Cells 0 SEEN Urine Bacteria 0 SEEN Urine Mucus 0 SEEN Discharge Plan Dx/Rx/DC Orders Clinical Impression: Acute UTI, Acidosis, lactic, Vomiting, Leukocytosis Disposition Disposition: Acute Care [facility]
[2024-07-01] MEDS: 0.9% Normal Saline (1000mL) 1,000 ML 150 ML IV (10:06)
[2024-07-01 10:07] LABS: Absolute Neutrophil Count 14.9 X10^3/uL (2.0-7.7); Basophil# 0.07 X10^3/uL; Basophil% 0.4 % (0-1); Eosinophil# 0.06 X10^3/uL; Eosinophils% 0.4 % (0-5); Hematocrit 47.5 % (40-54); Hemoglobin 15.5 g/dL (13.0-16.5); Lymphocyte % 6.5 % (19-41); Mean Corp Hgb Conc 32.6 g/dL (32-36); Mean Corpuscular Hgb 29.8 pg (27.0-32.0); Mean Corpuscular Volume 91.3 fL (80-94); Mean Platelet Vol. 13.1 fl (6.2-12.0); Monocyte# 0.85 X10^3/uL; NRBC Flagged by Analyzer 0 % (0-5); Neutrophil # 14.86 X10^3/uL (2.7-7.7); Neutrophil % 87.3 % (47-70); Platelet Count 107 K/mm3 (150-450); RBC Distribution Width CV 14.9 % (11.6-14.6)
[2024-07-01 10:12] LABS: Bacteria 0 SEEN /hpf (None Seen); Mucous, Urine 0 SEEN /hpf (<or=2+); Squamous Epithelial Cells - UA 0 SEEN /hpf (0-5)
[2024-07-01 10:14] LABS: Anion Gap 14 (5-15); BUN 19 mg/dL (4-19); BUN/Creat Ratio 9.1 RATIO (10-20); Calcium,Total 9.5 mg/dL (7.6-11.0); Carbon Dioxide 22.9 mmol/L (21.0-32.0); Chloride 99 mmol/L (98-108); Creatinine, Serum 2.13 mg/dL (0.70-1.20); EST Glomerular Filtration Rate 32 (>60); Estimated Creatinine Clearance 33.28 ml/min (50-250); Glucose 184 mg/dL (70-99); Potassium 5.5 mmol/L (3.3-5.1); Sodium Level 136 mmol/L (133-145)
[2024-07-01 10:18] LABS: Color, Urine Amber (Yellow); Glucose, Dipstick Normal (Normal); Ketone-Dipstick 5 mg/dl (Negative); Leukocyte Esterase-Dipstick 500 /ul (Negative); Nitrite-Dipstick Positive (Negative); Occult Blood-Urine 250 /ul (Negative); Protein-Dipstick 100 mg/dl (Negative); Urine Clarity Cloudy (Clear); Urine Urobilinogen 12 mg/dl (Normal)
[2024-07-01 10:31] LABS: Urine Bilirubin Dipstick 6 mg/dL (Negative)
[2024-07-01 10:34] LABS: Red Blood Cells-Urine > 100 SEEN /hpf (0-5); White Blood Cells 10-25 SEEN /hpf (0-5)
[2024-07-01] MEDS: Ondansetron 4 MG/2 ML Vial IV ×2 (10:57→13:50)
--- NOTE | 2024-07-01 11:10 | PCM.HP.STD ---
HPI - General General Date of Admission: 07/01/24 Date of Service: 07/01/24 Chief Complaint: UTI symptoms with nausea and vomiting HPI Narrative EMELIA JOHNSON, is a 74 M who presented to [facility] ED on 07/01/24 with UTI symptoms and nausea with vomiting. Patient has history of chronic indwelling Maddox catheter that he usually has changed about every 10 days. He began to have dysuria yesterday and then developed nausea with 2 vomiting episodes this morning. Patient lives at home with his son and daughter. Uses a walker at baseline but states he has been more fatigued over the past several days and not been moving around much. Medical history is otherwise significant for rectal cancer s/p chemoradiation therapy with colonic resection and permanent colostomy, PAD s/p aortobifemoral bypass, stroke with residual left-sided weakness and left lower extremity DVT. In the ED he was tachycardic to the low 110s but otherwise hemodynamically stable on room air and afebrile. Labs notable for WBC count 17, lactate 2.4. UA showed positive nitrites, 500 leukocyte esterase, 0 bacteria. Chest x-ray unremarkable. COVID/recess IV negative. CT abdomen pelvis showed subtle groundglass opacity in the right lower lobe that may represent early pneumonia, chronic hydronephrosis and hydroureter of right kidney, cholelithiasis without evidence of cholecystitis. He was given IV fluids and started on antibiotics, and hospitalist was contacted for admission. I saw the patient at bedside in the ED. Patient was somewhat unkempt appearing and mildly fatigued appearing but otherwise sitting back comfortably in bed, conversing normally and in no acute distress. He did report mild nausea currently but otherwise denied any pain or discomfort. Denies any fevers or chills. Denies any issues with his catheter at this time. Notably did have a very swollen left lower extremity on exam but stated this is chronic for him and he denies any new pain or discomfort in that area. No other acute concerns at this time. [facility] Medical History Wears glasses Low iron Stroke/cerebrovascular accident Former smoker Colostomy in place Family history of abdominal aortic aneurysm repair DVT (deep venous thrombosis) Enteritis Cholelithiasis Acidosis, lactic Encephalopathy due to infection Acute hypoxemic respiratory failure Complicated urinary tract infection Severe sepsis with acute organ dysfunction Aspiration into respiratory tract FIOR (acute kidney injury) Colon cancer Home Medications ?Medication ?Instructions ?Recorded ?Last Taken ?Type finasteride 5 mg tablet 5 mg PO DAILY prostate 06/22/23 06/30/24 History ferrous sulfate 325 mg (65 mg 325 mg PO BIDCM iron #1 TAB 06/26/23 01/09/24 Rx iron) tablet levothyroxine 100 mcg tablet 100 mcg PO DAILY@0600 #30 tabs 01/15/24 06/30/24 Rx pantoprazole 40 mg tablet,delayed 40 mg PO BID #60 tabs 01/15/24 06/30/24 Rx release albuterol sulfate 90 mcg/actuation 1 - 2 puff inhalation 4X/DAY PRN 02/22/24 Unknown History aerosol inhaler wheezing apixaban 5 mg tablet (Eliquis) 5 mg PO BID 02/22/24 06/30/24 History amlodipine 5 mg tablet 5 mg PO DAILY 07/01/24 06/30/24 History aspirin 81 mg tablet,delayed 81 mg PO DAILY 07/01/24 06/30/24 History release ergocalciferol (vitamin D2) 1,250 1,250 mcg PO MO 07/01/24 06/26/24 History mcg (50,000 unit) capsule fluticasone fur. 100 mcg-umeclid 1 ea inhalation DAILY 07/01/24 06/30/24 History 62.5 mcg-vilant 25 mcg inhalat.powder (Trelegy Ellipta) icosapent ethyl 1 gram capsule 2 g PO BID 07/01/24 06/30/24 History levothyroxine 150 mcg tablet 150 mcg PO DAILY 07/01/24 06/30/24 History linagliptin 5 mg tablet (Tradjenta) 5 mg PO DAILY 07/01/24 06/30/24 History rosuvastatin 20 mg tablet 20 mg PO QHS 07/01/24 06/30/24 History Allergy/AdvReac Type Severity Reaction Status Date / Time No Known Allergies Allergy Verified 07/01/24 13:29 Surgical History Hx of abdominal surgery Hx of endarterectomy (~2020) Social History Smoking Status: Former smoker Tobacco: How many years used: 50 ROS Constitutional Constitutional: Reports fatigue and weakness; Denies chills or fever(s) Eyes Eyes: Denies change in vision Cardiovascular Cardiovascular: Denies chest pain Respiratory/Chest Respiratory/Chest: Denies cough, productive cough or shortness of breath at rest Gastrointestinal Gastrointestinal: Reports nausea and vomiting; Denies abdominal pain, constipation or diarrhea Genitourinary Genitourinary: Reports dysuria Musculoskeletal Musculoskeletal: Denies arthralgias or myalgias Vital Signs Vital Signs Vital Signs: 07/01/24 09:22 07/01/24 10:25 Temperature 97.9 F 98.6 F Temperature Source Oral Oral Pulse Rate 106 H 107 H Respiratory Rate 18 18 Blood Pressure 150/63 H 132/90 H Blood Pressure Mean 92 104 Pulse Ox 95 95 Oxygen Delivery Method Room Air Room Air Weight Weight: 87.3 kg Body Mass Index (BMI) 28.4 Physical Exam Const alert, oriented x3 and no apparent distress Constitutional Narrative: Elderly male, somewhat unkempt appearing and mildly fatigued appearing, otherwise sitting back comfortably in bed, conversing normally, in no acute distress. General Appearance: cooperative and comfortable HEENT normocephalic, head/scalp atraumatic, hearing grossly normal bilaterally and nasal mucous membranes and turbinates normal HEENT Narrative: Dry mucous membranes. Eyes PERRL, EOMs intact bilaterally and conjunctivae normal Neck full ROM Chest inspection of chest normal Resp normal respiratory effort and no use of accessory muscles Cardio no murmurs and peripheral pulses 2+ throughout Cardio Narrative: Tachycardic, regular rhythm. GI normal to inspection, nondistended, normoactive bowel sounds, soft to palpation, non-tender and non-distended GI Narrative: Colostomy bag noted with normal-appearing stool contents. Back/Spine normal ROM Extremity Extremity Narrative: Severely swollen left lower extremity from waist down with mild erythema and +1-2 pitting edema noted Skin no rashes or lesions noted Psych mental status grossly normal Results Lab / Micro Data 07/01/24 09:42 07/01/24 09:42 Labs: Laboratory Results - last 24 hr 07/01/24 09:42: WBC 17.0 H, RBC 5.20, Hgb 15.5, Hct 47.5, MCV 91.3, MCH 29.8, MCHC 32.6, RDW Std Deviation 50.0 H, RDW Coeff of Yanira 14.9 H, Plt Count 107 L, MPV 13.1 H, Immature Gran % (Auto) 0.400, Neut % (Auto) 87.3 H, Lymph % (Auto) 6.5 L, [place] % (Auto) 5.0, Eos % (Auto) 0.4, Baso % (Auto) 0.4, Absolute Neuts (auto) 14.9 H, Absolute Lymphs (auto) 1.10, Nucleated RBC % 0, Sodium 136, Potassium 5.5 H, Chloride 99, Carbon Dioxide 22.9, Anion Gap 14, BUN 19, Creatinine 2.13 H, Estim Creat Clear Calc 33.28 L, Est GFR (MDRD) Non-Af 32 L, BUN/Creatinine Ratio 9.1 L, Glucose 184 H, Lactic Acid 2.4 H*, Calcium 9.5 07/01/24 10:04: Urine Color Grace, Urine Clarity Cloudy, Urine pH 6.0, Ur Specific Wilson 1.010, Urine Protein 100 H, Urine Glucose (UA) Normal, Urine Ketones 5 H, Urine Occult Blood 250 H, Urine Nitrite Positive H, Urine Bilirubin 6 H, Urine Urobilinogen 12 H, Ur Leukocyte Esterase 500 H, Urine RBC > 100 SEEN, Urine WBC 10-25 SEEN, Ur Squamous Epith Cells 0 SEEN, Urine Bacteria 0 SEEN, Urine Mucus 0 SEEN Assessment & Plan Assessment/Plan (1) Acidosis, lactic: (2) Acute UTI: PLAN: Plan Patient is a 74-year-old male who presented to [facility] ED on 07/01/2024 with UTI symptoms and nausea with vomiting. 1. Concern for sepsis secondary to complicated UTI in setting of chronic urinary retention with chronic indwelling Maddox catheter ? Admit under inpatient status to PCU. Met SIRS criteria on admit with leukocytosis and tachycardia in setting of suspected UTI. Lactic acid 2.4. UA with 500 leukocyte esterase and positive nitrites, though with 0 bacteria. Chest x-ray unremarkable. CT abdomen pelvis without contrast showed hydronephrosis and hydroureter to the right kidney suspected secondary to chronic reflux; also showed subtle groundglass opacity in right lower lobe concerning for early pneumonia. Most recent urine culture data growing MRSA but has grown Proteus in the past as well. Will treat with IV vancomycin and Zosyn for now. Follow-up urine culture and blood cultures. Will treat with 2 L of IV fluids total for now and monitor closely. Maddox catheter exchanged in the ED. 2. Severe left lower extremity swelling with concern for common femoral artery dissection, history of PAD with bilateral aortofemoral bypass, history of LLE DVT ? Severe left lower extremity swelling noted on exam on admit. Has history of bilateral aortofemoral bypass in 2013 as well as extensive LLE DVT in 2023. Is on Eliquis and reports compliance. Venous duplex ultrasound ordered and preliminary read was concerning for possible common femoral artery dissection, will follow-up formal vascular surgery read. Okay for conservative management for now. 3. Elevated creatinine in setting of CKD stage IIIb ? Creatinine 2.13 on admit, baseline around 1.9. Suspected prerenal in setting of concern for sepsis from UTI as noted above. IV fluid resuscitation given as above on admit. Follow-up a.m. BMP and monitor urine output. 4. Mild acute on chronic debility ? PT/OT/case management consulted. Lives with son and daughter, uses walker at baseline. Reports worsening weakness over the past several days likely secondary to infection. Appreciate therapy recommendations. Chronic medical conditions: ? Type 2 diabetes mellitus: Hold home linagliptin. Treat with sliding scale insulin with meals while inpatient. ? Hypertension, hyperlipidemia, history of CVA with residual left-sided weakness: Stable. Continue home aspirin and statin. Holding home amlodipine. ? Hypothyroidism: Continue home Synthroid. ? History of rectal cancer s/p chemotherapy and radiation therapy and resection of left colon and entire rectum with permanent colostomy placement in 2020: Continue outpatient follow-up with oncology. ? History of AAA without rupture: Outpatient follow-up. ? GERD: Continue home PPI. DVT prophylaxis: Not indicated, on Eliquis CODE STATUS: Full code, verified Expected disposition: TBD Total clinical time spent by myself addressing the patient's medical issues, reviewing all the data, and collaborating with patient's care team: 75 minutes. Charges/Coding Visit Charges Inpatient E&M: 48911 Init Hosp L3
--- NOTE | 2024-07-01 11:17 | CT_ITS ---
PROCEDURE: ABDOMEN/PELVIS WITHOUT CONT 07/01/2024 REASON FOR EXAM: EVAL FOR URINE RETENTION, INTRAABDOMINAL INFXN TECHNIQUE: Abdomen and pelvis CT without intravenous contrast. Noncontrast technique limits evaluation of the abdominal and pelvic viscera. Coronal and Sagittal reconstruction series were provided. One or more dose reduction techniques were used (e.g., Automated exposure control, adjustment of the mA and/or kV according to patient size, use of iterative reconstruction technique). PATIENT PREPARATION: Per protocol ORAL CONTRAST TYPE: None. AMOUNT: mL Radiation dose-CTDI: 38.4.. DLP: 970.58 FINDINGS: Lung bases: Hazy ground-glass opacities in the lower lobe bases are incompletely evaluated Liver: Unremarkable Gallbladder: Numerous small gallstones are present. Spleen: Small but otherwise unremarkable Pancreas: Normal Adrenals: Normal Kidneys: Left renal atrophy. Right renal hydronephrosis and ureter. Suspect ileal conduit Maddox catheter is present in the urinary bladder. Bladder: Maddox catheter present Reproductive Organs: Bowel: Diffuse increased diameter of small bowel and air fluid levels suggest ileus or possibly obstruction, but left lower quadrant ileostomy is present. Appendix: Body wall: Left lower quadrant ostomy is felt to represent ileal conduit. Inflammation, fat stranding and fluid present in the subcutaneous tissues of the left lower abdominal quadrant. Peritoneum / Retroperitoneum: Trace free fluid in the pelvis. No free fluid in Morison's pouch. Bones: No aggressive bone lesions. Anterolisthesis, grade 1, of L5 on S1. 1 CT/Abdomen/Pelvis without Cont IMPRESSION: Subtle ground-glass opacity in the right lower lobe may represent an early pneu monia. Hydronephrosis and hydroureter of the right kidney suspect chronic reflux from ileo pouch diversion. Correlate with surgical history. Air and fluid in mildly distended small bowel loops of uncertain etiology Cholelithiasis, but no evidence for cholecystitis. Reading Location: [facility]
--- NOTE | 2024-07-01 11:17 | VDLE_ITS ---
Reason For Study Reason For Study: LLE SWelling Procedure LEFT This is a venous duplex using B-mode, color flow and CFV is compressible with pulsatile flow thoughout spectral Doppler. FV is compressible with pulsatile flow throughout. Exam performed portable in ED. Pop V is compressible The study was technically difficult due to leg T/P Trunk is compressible swelling. PTV is compressible A preliminary report was called and/or faxed to [facility] Peroneal V is compressible personal banking officer Amanda. GSV is compressible but appears pulsatile with arterial flow and augments with compression. Swirl flow noted in CFV/SFJ with color Doppler. Vessel was difficult to compress with thickened gifford. SFA has above and below baseline flow that appears abnormal. Deep Fem Artery appears to have triphasic arterial flow. Femoral Vein proximal thigh has arterial flow above and below baseline and augments with compression. Patients leg feels very hard and swollen with possible elevated venous pressure noted in pulsed wave doppler. VL/Venous Duplex US, Unilateral Interpretation Summary Deep veins of the left lower extremity are patent and compressible segmentally. There is no evidence of left lower extremity deep vein thrombosis. The left great saphenous vein appears patent an d compressible segmentally. Arterialized flow identified in great saphenous vein, femoral vein, common femo ral vein suggesting presence of possible fistula. Ordering Physician: Kulwinder De La O Referring Physician: Jenae Franco Performed By: Kameron Boyer, WEI
--- NOTE | 2024-07-01 11:17 | RAD_ITS ---
PROCEDURE: CHEST 1 VIEW (PORTABLE) 07/01/2024 REASON FOR EXAM: EVAL FOR PNEUMONIA TECHNIQUE: Frontal view of the chest. FINDINGS: Hardware: Heart: Normal size. Lungs: Grossly clear. Prominence of interstitium likely due to a combination of body habitus and AP technique. Bones: Unremarkable. Other: RAD/Chest 1 View (Portable) IMPRESSION: No definite radiographic evidence of an acute cardiopulmonary process Reading Location: [facility]
[2024-07-01] MEDS: Ceftriaxone 1 GM/50 ML BAG IV (11:20)
[2024-07-01] MEDS: 0.9% Normal Saline (1000mL) 1,000 ML 999 ML IV (11:20)
[2024-07-01] MEDS: Piperacil/Tazobactam 3.375 GM in 0.9% Normal Saline (50mL MB+) 50 ML IV ×2 (13:51→21:17)
[2024-07-01 13:52] LABS: Reflex Lactate? Y
[2024-07-01] MEDS: Lactated Ringers 1,000 ML 500 ML IV (14:20)
[2024-07-01] MEDS: Vancomycin HCl 2,000 MG in 0.9% Normal Saline (500mL Bag) 500 ML 250 MG IV (14:26)
--- NOTE | 2024-07-01 15:12 | PHA.PHARE_ITS ---
Consult Antibiotic Management Pharmacy has been consulted to manage selected antibiotic: Vancomycin Type of Intervention Type of Consult: New start Suspected Infection Suspected Infection: Other (UTI) Labs Labs: Sodium 136 mmol/L (133-145) 07/01/24 09:42 Potassium 5.5 mmol/L (3.3-5.1) H 07/01/24 09:42 Chloride 99 mmol/L (98-108) 07/01/24 09:42 Carbon Dioxide 22.9 mmol/L (21.0-32.0) 07/01/24 09:42 Anion Gap 14 (5-15) 07/01/24 09:42 BUN 19 mg/dL (4-19) 07/01/24 09:42 Creatinine 2.13 mg/dL (0.70-1.20) H 07/01/24 09:42 Est GFR (MDRD) Non-Af 32 (>60) L 07/01/24 09:42 BUN/Creatinine Ratio 9.1 RATIO (10-20) L 07/01/24 09:42 Glucose 184 mg/dL (70-99) H 07/01/24 09:42 Microbiology Microbiology: Microbiology 07/01/24 11:26 Mucosa - Nose SARS-CoV-2, Influenza & RSV (PCR) - Final Dosing Weight Weight used for dosin.8 kg Estimated Creatinine Clearance Estimated Creatinine Clearance: 33 ML/MIN Goal Trough Goal Trough: 15-20 mcg/mL Pharmacy Plan for Drug Dosing Pharmacy Plan for Drug Dosing: Give initial load dose of 2000mg IV x1, then continue with 1250mg q24h per [facility] dosing protocol. Check a trough before the 3rd overall dose. Pharmacy Service will continue to monitor and adjust dosing as required. Follow-Up Labs Follow-Up Labs: Trough: Vancomycin Date/Time Labs Ordered Labs to be done on [date and time ordered]: 07/03/24 13:30
[2024-07-01 16:39] LABS: Lactic Acid 2.1 mmol/L (0.0-2.0)
[2024-07-01 17:05] LABS: Reflex Lactate? N
[2024-07-01] MEDS: Budesonide Respules 0.5 MG/2 ML AMPUL.NEB. INHALATION (18:48)
[2024-07-01] MEDS: Ipratropium/Albuterol Sulfate 3 ML AMPUL.NEB INHALATION (18:48)
[2024-07-01] MEDS: 0.9% Saline Lock 10 ML Syringe IV (21:17)
[2024-07-01] MEDS: Nystatin Powder 15gm Bottle 1 APPLIC TOPICAL (23:59)
[2024-07-02 03:20] VITALS: BP 106/82; PULSE 97; RESP 18; TEMP 37.1; O2SAT 93
[2024-07-02 04:50] LABS: Hematocrit 42.9 % (40-54); Hemoglobin 13.6 g/dL (13.0-16.5); Mean Corp Hgb Conc 31.7 g/dL (32-36); Mean Corpuscular Hgb 29.6 pg (27.0-32.0); Mean Corpuscular Volume 93.5 fL (80-94); Mean Platelet Vol. 12.4 fl (6.2-12.0); Platelet Count 106 K/mm3 (150-450); RBC Distribution Width CV 15.2 % (11.6-14.6); RBC Distribution Width SD 52.6 fl (35.1-43.9); Red Blood Count 4.59 M/mm3 (4.6-6.2); White Blood Count 13.9 K/mm3 (4.4-11.0)
[2024-07-02] MEDS: Piperacil/Tazobactam 3.375 GM in 0.9% Normal Saline (50mL MB+) 50 ML IV ×3 (05:21→21:04)
[2024-07-02 05:49] LABS: Anion Gap 13 (5-15); BUN 22 mg/dL (4-19); BUN/Creat Ratio 11.8 RATIO (10-20); Calcium,Total 8.8 mg/dL (7.6-11.0); Chloride 106 mmol/L (98-108); Creatinine, Serum 1.87 mg/dL (0.70-1.20); EST Glomerular Filtration Rate 37 (>60); Estimated Creatinine Clearance 37.62 ml/min (50-250); Glucose 132 mg/dL (70-99); Sodium Level 138 mmol/L (133-145)
[2024-07-02 06:45] VITALS: PULSE 92; RESP 22; O2SAT 87
[2024-07-02] MEDS: Budesonide Respules 0.5 MG/2 ML AMPUL.NEB. INHALATION ×2 (06:45→19:15)
[2024-07-02] MEDS: Ipratropium/Albuterol Sulfate 3 ML AMPUL.NEB INHALATION ×2 (06:45→19:15)
--- NOTE | 2024-07-02 08:38 | PCM.PN.HOSP ---
Reason for Visit Reason for Visit: Diagnoses Acidosis, unspecified (07/01/24) Urinary tract infection, site not specified (07/01/24) Subjective Subjective Saw patient at bedside this morning. Patient appeared similar this morning to yesterday, was mildly fatigued appearing but otherwise sitting back comfortably in bed, conversing normally and in no acute distress. Noted that he did have a minor choking episode last night when eating but typically does not have swallowing issues and is hoping to have some food when able. No other new concerns today. Objective Data Objective Data Vital Signs: Vital Signs Temp Pulse Resp BP Pulse Ox O2 Del Method O2 Flow Rate 98.8 F 92 22 H 106/82 H 87 Nasal Cannula 2 07/02/24 03:20 07/02/24 06:45 07/02/24 06:45 07/02/24 03:20 07/02/24 06:45 07/02/24 06:46 07/02/24 06:46 Oxygen Flow Rate (L/min) 2 Oxygen Delivery Method Nasal Cannula Weight: 85.8 kg Body Mass Index (BMI) 27.9 Intake & Output: Intake and Output for Last 24 Hours 06/30/24 07/01/24 07/02/24 23:59 23:59 23:59 Intake Total 3155 / 3155 50 / 50 Output Total 1250 / 1700 550 / 550 Balance 1905 / 1455 -500 / -500 Lab / Micro Data 07/02/24 03:50 07/02/24 03:50 Labs: Laboratory Results - last 24 hr 07/01/24 09:42: WBC 17.0 H, RBC 5.20, Hgb 15.5, Hct 47.5, MCV 91.3, MCH 29.8, MCHC 32.6, RDW Std Deviation 50.0 H, RDW Coeff of Yanira 14.9 H, Plt Count 107 L, MPV 13.1 H, Immature Gran % (Auto) 0.400, Neut % (Auto) 87.3 H, Lymph % (Auto) 6.5 L, [place] % (Auto) 5.0, Eos % (Auto) 0.4, Baso % (Auto) 0.4, Absolute Neuts (auto) 14.9 H, Absolute Lymphs (auto) 1.10, Nucleated RBC % 0, Sodium 136, Potassium 5.5 H, Chloride 99, Carbon Dioxide 22.9, Anion Gap 14, BUN 19, Creatinine 2.13 H, Estim Creat Clear Calc 33.28 L, Est GFR (MDRD) Non-Af 32 L, BUN/Creatinine Ratio 9.1 L, Glucose 184 H, Lactic Acid 2.4 H*, Calcium 9.5 07/01/24 10:04: Urine Color Grace, Urine Clarity Cloudy, Urine pH 6.0, Ur Specific [place] 1.010, Urine Protein 100 H, Urine Glucose (UA) Normal, Urine Ketones 5 H, Urine Occult Blood 250 H, Urine Nitrite Positive H, Urine Bilirubin 6 H, Urine Urobilinogen 12 H, Ur Leukocyte Esterase 500 H, Urine RBC > 100 SEEN, Urine WBC 10-25 SEEN, Ur Squamous Epith Cells 0 SEEN, Urine Bacteria 0 SEEN, Urine Mucus 0 SEEN 07/01/24 12:48: Lactic Acid 2.9 H* 07/01/24 16:00: Lactic Acid 2.1 H 07/02/24 03:50: WBC 13.9 H, RBC 4.59 L, Hgb 13.6, Hct 42.9, MCV 93.5, MCH 29.6, MCHC 31.7 L, RDW Std Deviation 52.6 H, RDW Coeff of Yanira 15.2 H, Plt Count 106 L, MPV 12.4 H, Sodium 138, Potassium 4.0, Chloride 106, Carbon Dioxide 20.0 L, Anion Gap 13, BUN 22 H, Creatinine 1.87 H, Estim Creat Clear Calc 37.62 L, Est GFR (MDRD) Non-Af 37 L, BUN/Creatinine Ratio 11.8, Glucose 132 H, Calcium 8.8 Micro: Microbiology 07/01/24 11:26 Mucosa - Nose SARS-CoV-2, Influenza & RSV (PCR) - Final Radiography Diagnostic Testing: Radiology Impression Abdomen/Pelvis CT 07/01/24 11:17 IMPRESSION: Subtle ground-glass opacity in the right lower lobe may represent an early pneumonia. Hydronephrosis and hydroureter of the right kidney suspect chronic reflux from ileo pouch diversion. Correlate with surgical history. Air and fluid in mildly distended small bowel loops of uncertain etiology Cholelithiasis, but no evidence for cholecystitis. Reading Location: [facility] Chest X-Ray 07/01/24 11:17 IMPRESSION: No definite radiographic evidence of an acute cardiopulmonary process Reading [facility] Physical Exam Const alert, oriented x3 and no apparent distress Constitutional Narrative: Elderly male, somewhat unkempt appearing and mildly fatigued appearing, otherwise sitting back comfortably in bed, conversing normally, in no acute distress. Stable. General Appearance: cooperative and comfortable HEENT normocephalic, head/scalp atraumatic, hearing grossly normal bilaterally, nasal mucous membranes and turbinates normal and moist oral mucous membranes Eyes PERRL, EOMs intact bilaterally and conjunctivae normal Neck full ROM Chest inspection of chest normal Resp normal respiratory effort and no use of accessory muscles Cardio regular rate, regular rhythm, no murmurs and peripheral pulses 2+ throughout GI normal to inspection, nondistended, normoactive bowel sounds, soft to palpation, non-tender and non-distended GI Narrative: Colostomy bag noted with normal-appearing stool contents. Back/Spine normal ROM Extremity Extremity Narrative: Severely swollen left lower extremity from waist down with mild erythema and +1-2 pitting edema noted, stable. Skin no rashes or lesions noted Psych mental status grossly normal Assessment & Plan Assessment/Plan (1) Acidosis, lactic: (2) Acute UTI: PLAN: Plan Patient is a 74-year-old male who presented to [facility] ED on 07/01/2024 with UTI symptoms and nausea with vomiting. 1. Concern for sepsis secondary to complicated UTI in setting of chronic urinary retention with chronic indwelling Maddox catheter ? Met SIRS criteria on admit with leukocytosis and tachycardia in setting of suspected UTI. Lactic acid 2.4. UA with 500 leukocyte esterase and positive nitrites, though with 0 bacteria. Chest x-ray unremarkable. CT abdomen pelvis without contrast showed hydronephrosis and hydroureter to the right kidney suspected secondary to chronic reflux; also showed subtle groundglass opacity in right lower lobe concerning for early pneumonia. Most recent urine culture data growing MRSA but has grown Proteus in the past as well. Given 2 L IV fluids total on admit with improvement in lactate. Maddox catheter exchanged in the ED. Continue to treat with IV vancomycin and Zosyn, follow-up urine culture and blood cultures. 2. Severe left lower extremity swelling with concern for common femoral artery dissection, history of PAD with bilateral aortofemoral bypass, history of LLE DVT ? Severe left lower extremity swelling noted on exam on admit. Has history of bilateral aortofemoral bypass in 2013 as well as extensive LLE DVT in 2023. Is on Eliquis and reports compliance. Venous duplex ultrasound completed and preliminary read showed no DVT but was concerning for possible common femoral artery dissection, will follow-up formal vascular surgery read. Okay for conservative management for now. 3. Elevated creatinine in setting of CKD stage IIIb, resolved ? Creatinine 2.13 on admit, baseline around 1.9. Suspected prerenal in setting of concern for sepsis from UTI as noted above. IV fluid resuscitation given as above on admit. Repeat BMP on hospital day 2 with improvement in creatinine back to baseline. 4. Mild acute on chronic debility ? PT/OT/case management following. Lives with son and daughter, uses walker at baseline. Reports worsening weakness over the past several days likely secondary to infection. Appreciate therapy recommendations. 5. Concern for dysphagia ? Speech therapy consulted. Patient had episode of reported choking with food on the evening of admission. Denies any prior history of dysphagia. Made n.p.o. status and appreciate speech therapy recommendations. Chronic medical conditions: ? Type 2 diabetes mellitus: Hold home linagliptin. Treating with sliding scale insulin with meals while inpatient. ? Hypertension, hyperlipidemia, history of CVA with residual left-sided weakness: Stable. Continue home aspirin and statin. Holding home amlodipine. ? Hypothyroidism: Continue home Synthroid. ? History of rectal cancer s/p chemotherapy and radiation therapy and resection of left colon and entire rectum with permanent colostomy placement in 2020: Continue outpatient follow-up with oncology. ? History of AAA without rupture: Outpatient follow-up. ? GERD: Continue home PPI. DVT prophylaxis: Not indicated, on Eliquis CODE STATUS: Full code, verified Expected disposition: Likely SNF, TBD Total clinical time spent by myself addressing the patient's medical issues, reviewing all the data, and collaborating with patient's care team: 35 minutes. Charges/Coding Visit Charges Inpatient E&M: 80321 Subs Hosp L2
[2024-07-02 09:20] VITALS: BP 127/75; PULSE 93; RESP 16; TEMP 36.5; O2SAT 98
[2024-07-02] MEDS: APIXABAN 5 MG TABLET PO ×2 (09:50→21:05)
[2024-07-02] MEDS: Aspirin E.C. 81 MG Tablet PO (09:50)
[2024-07-02] MEDS: Pantoprazole Sodium 40 MG Tablet PO ×2 (09:50→21:06)
[2024-07-02] MEDS: Finasteride 5 MG Tablet PO (09:50)
[2024-07-02] MEDS: icosapent ethyL 1 GM Capsule 2 GM PO ×2 (09:52→21:07)
[2024-07-02] MEDS: Vancomycin HCl 1,250 MG in 0.9% Normal Saline (250mL Bag) 250 ML 167 MG IV (13:27)
[2024-07-02 15:00] VITALS: BP 125/71; PULSE 80; RESP 16; TEMP 36.3; O2SAT 98
[2024-07-02] MEDS: Nystatin Powder 15gm Bottle 1 APPLIC TOPICAL ×2 (15:19→21:05)
[2024-07-02 19:18] VITALS: PULSE 82; RESP 20; O2SAT 88
[2024-07-02 21:00] VITALS: BP 112/68; PULSE 98; RESP 18; TEMP 36.6; O2SAT 97
[2024-07-02] MEDS: Atorvastatin Calcium 40 MG Tablet PO (21:05)
[2024-07-03] VITALS (7 sets, daily range): BP systolic 104–127; BP diastolic 56–76; PULSE 79–89; RESP 16–20; TEMP 36.1–36.6; O2SAT 94–99; BMI 27.9
--- NOTE | 2024-07-03 00:35 | NURSING ---
Gave report to Bhargavi COELHO
[2024-07-03] MEDS: Levothyroxine 150 MCG Tablet PO (05:20)
[2024-07-03] MEDS: Nystatin Powder 15gm Bottle 1 APPLIC TOPICAL ×3 (05:20→20:58)
[2024-07-03] MEDS: Piperacil/Tazobactam 3.375 GM in 0.9% Normal Saline (50mL MB+) 50 ML IV (05:20)
[2024-07-03] MEDS: Budesonide Respules 0.5 MG/2 ML AMPUL.NEB. INHALATION ×2 (06:46→19:25)
[2024-07-03] MEDS: Ipratropium/Albuterol Sulfate 3 ML AMPUL.NEB INHALATION ×2 (06:46→19:25)
[2024-07-03 06:59] LABS: Hematocrit 37.3 % (40-54); Hemoglobin 11.7 g/dL (13.0-16.5); Mean Corp Hgb Conc 31.4 g/dL (32-36); Mean Corpuscular Hgb 29.8 pg (27.0-32.0); Mean Corpuscular Volume 94.9 fL (80-94); Mean Platelet Vol. 12.4 fl (6.2-12.0); POSITIVE COUNT YES; Platelet Count 86 K/mm3 (150-450); RBC Distribution Width CV 15.1 % (11.6-14.6); Red Blood Count 3.93 M/mm3 (4.6-6.2); White Blood Count 8.2 K/mm3 (4.4-11.0)
[2024-07-03 07:08] LABS: Scan Indicated on CBC? Y/N YES- FLAGS NOTED
[2024-07-03 07:59] LABS: Anion Gap 10 (5-15); BUN 20 mg/dL (4-19); BUN/Creat Ratio 11.4 RATIO (10-20); Calcium,Total 8.4 mg/dL (7.6-11.0); Carbon Dioxide 21.7 mmol/L (21.0-32.0); Chloride 107 mmol/L (98-108); Creatinine, Serum 1.76 mg/dL (0.70-1.20); EST Glomerular Filtration Rate 40 (>60); Estimated Creatinine Clearance 39.97 ml/min (50-250); Glucose 98 mg/dL (70-99); Potassium 3.8 mmol/L (3.3-5.1); Sodium Level 138 mmol/L (133-145)
[2024-07-03] MEDS: Finasteride 5 MG Tablet PO (08:30)
[2024-07-03] MEDS: APIXABAN 5 MG TABLET PO (08:30)
[2024-07-03] MEDS: Aspirin E.C. 81 MG Tablet PO (08:30)
[2024-07-03] MEDS: Pantoprazole Sodium 40 MG Tablet PO ×2 (08:30→20:58)
--- NOTE | 2024-07-03 10:39 | PN.HOSP_ITS ---
Reason for Visit Reason for Visit: Diagnoses Acidosis, unspecified (07/01/24) Urinary tract infection, site not specified (07/01/24) Subjective Subjective Saw patient at bedside this morning. Patient did appear to have improved energy this morning from previous days. Was sitting back comfortably in bed and answering questions appropriately. He denied any acute pain or discomfort this morning. Denied any issues with his catheter. Stated that his left leg feels about the same today as previous days. No new concerns today. Objective Data Objective Data Vital Signs: Vital Signs Temp Pulse Resp BP Pulse Ox O2 Del Method O2 Flow Rate 97.8 F 89 18 104/65 99 Nasal Cannula 1.5 07/03/24 08:19 07/03/24 08:19 07/03/24 08:19 07/03/24 08:19 07/03/24 08:19 07/03/24 08:35 07/03/24 09:35 Oxygen Flow Rate (L/min) 1.5 Oxygen Delivery Method Nasal Cannula Weight: 85.8 kg Body Mass Index (BMI) 27.9 Intake & Output: Intake and Output for Last 24 Hours 07/01/24 07/02/24 07/03/24 23:59 23:59 23:59 Intake Total 3155 / 3155 425 / 425 50 / 50 Output Total 1250 / 1700 1325 / 1625 605 / 605 Balance 1905 / 1455 -900 / -1200 -555 / -555 Lab / Micro Data 07/03/24 06:33 07/03/24 06:33 Labs: Laboratory Results - last 24 hr 07/01/24 10:04: Urine Color Grace, Urine Clarity Cloudy, Urine pH 6.0, Ur Specific [place] 1.010, Urine Protein 100 H, Urine Glucose (UA) Normal, Urine Ketones 5 H, Urine Occult Blood 250 H, Urine Nitrite Positive H, Urine Bilirubin 6 H, Urine Urobilinogen 12 H, Ur Leukocyte Esterase 500 H, Urine RBC > 100 SEEN, Urine WBC 10-25 SEEN, Ur Squamous Epith Cells 0 SEEN, Urine Bacteria 0 SEEN, Urine Mucus 0 SEEN 07/03/24 06:33: WBC 8.2, RBC 3.93 L, Hgb 11.7 L, Hct 37.3 L, MCV 94.9 H, MCH 29.8, MCHC 31.4 L, RDW Std Deviation 53.0 H, RDW Coeff of Yanira 15.1 H, Plt Count 86 L, MPV 12.4 H, Sodium 138, Potassium 3.8, Chloride 107, Carbon Dioxide 21.7, Anion Gap 10, BUN 20 H, Creatinine 1.76 H, Estim Creat Clear Calc 39.97 L, Est GFR (MDRD) Non-Af 40 L, BUN/Creatinine Ratio 11.4, Glucose 98, Calcium 8.4 Micro: Microbiology 07/01/24 10:21 Blood Culture (Wb) - Anticubital Left Blood Culture - Preliminary No growth in 48 hours. 07/01/24 09:42 Blood Culture (Wb) - Anticubital Left Blood Culture - Preliminary No growth in 48 hours. 07/01/24 10:04 Urine Catheter - Maddox Urine Culture - Final Meth. resistant Staph. aureus 07/01/24 11:26 Mucosa - Nose SARS-CoV-2, Influenza & RSV (PCR) - Final Radiography Diagnostic Testing: Radiology Impression Venous Doppler Study 07/01/24 11:17 Interpretation Summary Deep veins of the left lower extremity are patent and compressible segmentally. There is no evidence of left lower extremity deep vein thrombosis. The left great saphenous vein appears patent and compressible segmentally. Arterialized flow identified in great saphenous vein, femoral vein, common femoral vein suggesting presence of possible fistula. Ordering Physician: Kulwinder De La O Referring Physician: Jenae Franco Performed By: Kameron Boyer RVT Physical Exam Const alert, oriented x3 and no apparent distress Constitutional Narrative: Elderly male, somewhat unkempt appearing but energy improved from admission, sitting back comfortably in bed, conversing normally, in no acute distress. General Appearance: cooperative and comfortable HEENT normocephalic, head/scalp atraumatic, hearing grossly normal bilaterally, nasal mucous membranes and turbinates normal and moist oral mucous membranes Eyes PERRL, EOMs intact bilaterally and conjunctivae normal Neck full ROM Chest inspection of chest normal Resp normal respiratory effort and no use of accessory muscles Cardio regular rate, regular rhythm, no murmurs and peripheral pulses 2+ throughout GI normal to inspection, nondistended, normoactive bowel sounds, soft to palpation, non-tender and non-distended GI Narrative: Colostomy bag noted with normal-appearing stool contents. Back/Spine normal ROM Extremity Extremity Narrative: Severely swollen left lower extremity from waist down with mild erythema and +1- 2 pitting edema noted, stable. Skin no rashes or lesions noted Psych mental status grossly normal Assessment & Plan Assessment/Plan (1) Acidosis, lactic: (2) Acute UTI: PLAN: Plan Patient is a 74-year-old male who presented to [facility] ED on 07/01/2024 with UTI symptoms and nausea with vomiting. 1. Concern for sepsis secondary to complicated UTI in setting of chronic urinary retention with chronic indwelling Maddox catheter versus aspiration pneumonia ? Met SIRS criteria on admit with leukocytosis and tachycardia in setting of suspected UTI. Lactic acid 2.4. UA with 500 leukocyte esterase and positive nitrites, though with 0 bacteria. Chest x-ray unremarkable, but CT abdomen pelvis showed subtle groundglass opacity in right lower lobe concerning for early pneumonia, as well as hydronephrosis and hydroureter to the right kidney suspected secondary to chronic reflux. Has known dysphagia as noted below. Most recent urine culture data growing MRSA but has grown Proteus in the past as well. Given 2 L IV fluids total on admit with improvement in lactate. Maddox catheter exchanged in the ED. Urine culture finalized on 07/03 growing greater than 100,000 MRSA again. Treated with IV vancomycin and Zosyn on admit, will de-escalate to p.o. doxycycline on 07/03 with plan for 7-day course of antibiotics total. 2. Dysphagia ? Speech therapy following. Patient had episode of reported choking with food on the evening of admission. On chart review, patient had MBSS done in December 2023 for that was consistent with severe oropharyngeal dysphagia and esophageal dysphagia. Had EGD done at that time that showed eosinophilic esophagitis and benign-appearing esophageal stenoses that were dilated. Had repeat EGD in January 2024 with moderate Schatzki ring identified that was treated with APC as well as abnormal esophageal motility consistent with achalasia that was injected with botulinum toxin. Per speech therapy on 07/02, patient okay for minced and moist thin liquids with total feed supervision. Also recommended repeat MBSS and this has been ordered. Given concern for aspiration pneumonia as noted above, will also consult GI for consideration of repeat EGD during this hospitalization. 3. Severe left lower extremity swelling with concern for common femoral artery dissection, history of PAD with bilateral aortofemoral bypass, history of LLE DVT ? Severe left lower extremity swelling noted on exam on admit. Has history of bilateral aortofemoral bypass in 2013 as well as extensive LLE DVT in 2023. Is on Eliquis and reports compliance. Venous duplex ultrasound on 07/02 showed no DVT but did show arterialized flow identified in the great saphenous, femoral and common femoral veins suggesting presence of possible fistula. Will discuss with vascular surgery on if there are inpatient needs but suspect this will be an outpatient issue. Continue home Eliquis. 4. Elevated creatinine in setting of CKD stage IIIb, resolved ? Creatinine 2.13 on admit, baseline around 1.9. Suspected prerenal in setting of concern for sepsis from UTI as noted above. IV fluid resuscitation given as above on admit. Repeat BMP on hospital day 2 with improvement in creatinine back to baseline. 5. Mild acute on chronic debility ? PT/OT/case management following. Lives with son and daughter, uses walker at baseline. Has required SNF placement after multiple hospitalizations in the past. Poor therapy scores on hospital day 2, will follow-up with case management but likely planning for SNF on discharge. Chronic medical conditions: ? Type 2 diabetes mellitus: Hold home linagliptin. Treating with sliding scale insulin with meals while inpatient. ? Hypertension, hyperlipidemia, history of CVA with residual left-sided weakness: Stable. Continue home aspirin and statin. Holding home amlodipine. ? Hypothyroidism: Continue home Synthroid. ? History of rectal cancer s/p chemotherapy and radiation therapy and resection of left colon and entire rectum with permanent colostomy placement in 2020: Continue outpatient follow-up with oncology. ? History of AAA without rupture: Outpatient follow-up. ? GERD: Continue home PPI. DVT prophylaxis: Not indicated, on Eliquis CODE STATUS: Full code, verified Expected disposition: Likely SNF, 1 to 2 days Total clinical time spent by myself addressing the patient's medical issues, reviewing all the data, and collaborating with patient's care team: 35 minutes. Charges/Coding Visit Charges Inpatient E&M: 19170 Subs Hosp L2
--- NOTE | 2024-07-03 11:07 | CASEMGMT ---
LAQUITA MONTANEZ Assessment Face to Face with patient for initial transition planning/care coordination assessment. LAQUITA MONTANEZ introduced self and role at [facility], pt voices understanding. Pt is A&Ox3 and is resting comfortably in the chair and is calm. Care providers, pharmacy, and demographics verified. Admitting dx: UTI LACE Strata: 3 PCP: Jenae Franco Specialists: David (Urology) Preferred Pharmacy[facility] Insurance: [employer] A/B, [place] Prescription Benefit: Yes LNOK: Shaunna Cabral (Daughter), Dm Nicole (Son) Living Arrangements: Pt lives with his daughter, SHELLY, and son in a 2 story home with a FFSU and a ramp to enter ADLs/IADLs: Pt requires help and states that his family is able to provide sufficient assistance. Pt has a colostomy and a chronic urinary catheter and states that his son helps care for these. Pt states that the HH was changing the catheters prior to being discharged from their services. Transportation: Pt family. Denies concerns DME: Pt states that he lost his previous BGM and is requesting a new Rx. CM to follow. Pt is currently requiring additional oxygen and may qualify for home oxygen use. A verbal list of local in-network DME companies were provided to the pt at this time. Pt prefers [facility] Pt also reports that he has a FWW, Hospital bed, extended tub bench, grab bars, and a W/C. HHC/SNF: History with [facility]. Hx @ [facility]. Pt is currently denying SNF needs and wants HH. See below Pt?s goal: Home Plan: Anticipate home with pt family support, skilled HHC, new BGM Rx, and potential new oxygen. Per PT notes, pt was able to do better today. Pt denies wanting to review a list of local in-network HHC agencies and states that he prefers [facility] again. TC to Kelly @ [facility] and referral made for SN, PT, OT, and [facility]Y. CM to follow. Report given to RESTORATION TECHNICIAN CM. Kristen Crump RN, CM
[2024-07-03] MEDS: icosapent ethyL 1 GM Capsule 2 GM PO ×2 (11:35→20:58)
--- NOTE | 2024-07-03 13:40 | CT_ITS ---
PROCEDURE: CTA ABD W/RUNOFF W/WO CONTRAST 07/03/2024 REASON FOR EXAM: PRIOR AORTO-BIFEM BYPASS TECHNIQUE: CTA imaging of the abdomen, pelvis, and lower extremities with intravenous contrast. Coronal and Sagittal reconstruction series were provided. 3D, 3D post processing, 3D reconstructions, Maximum intensity projection (MIPs) Volume rendering and Shaded surface rendering was provided. CONTRAST: Isovue 370 VOLUME: 100 mL One or more dose reduction techniques were used (e.g., Automated exposure control, adjustment of the mA and/or kV according to patient size, use of iterative reconstruction technique). RADIATION DOSE SUMMARY: CTDlvol: 25 mGy DLP: 1700 mGycm COMPARISON: CT abdomen pelvis 07/01/2024. 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 Prior aorto bifemoral bypass extending from the infrarenal abdominal aorta to the bilateral common femoral arteries without obvious grafting/stenting. There is non-opacification of the right common femoral artery just distal to the anastomosis (series 2, image 117), with occlusion of the femoral and deep femoral arteries. There is multifocal narrowing of the right deep femoral artery, with severe stenosis/occlusion of the trifurcation arteries. There is marked narrowing of the left common femoral artery just distal to the anastomosis with dilation and partial retrograde opacification of the left femoral and external iliac veins (series 2, images 97-116). Markedly edematous left lower extremity extending from the upper abdomen to the foot. There is layering hyperdensity within dependent portion of the right external iliac vein (series 2, image 91), with opacification of numerous hypertrophied left and right rectal veins. The left rectal veins appear to join the left deep femoral artery at the popliteal fossa (best visualized on coronal image 71 and 96). Additional findings: Ground-glass opacification and trace bilateral pleural effusions. Coronary artery and aortic valvular calcifications. Stable cholelithiasis. Non-opacification of the left kidney and left renal artery, compatible with chronic infarct. Maddox catheter with intraluminal gas and marked diffuse bladder wall thickening. Prior left lower quadrant ileostomy. Diffuse dilation with air-fluid levels throughout the small bowel. Trace presacral edema, likely secondary to prior radiation treatment. No pneumoperitoneum. Grade 1 anterolisthesis of L5 onto S1. CT/CTA Abd w/Runoff W/WO Contrast IMPRESSION: 1. 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 There is moderate ill-def ined thickening with enhancement and left inguinal lymphadenopathy, most compatible with infectious etiology. Additional consider ations include iatrogenic etiology or secondary to recent procedure. 2. Layering hyperdensity within the right external iliac vein subjacent to the bypassed right common iliac artery, concerning for additional AVM, however this is difficult to assess without venous phase imagin g. 3. Occlusion of the right femoral and deep femoral arteries with severe stenosi s/occlusion of the trifurcation arteries. 4. Diffuse dilation with air-fluid levels throughout the small bowel. No pneum operitoneum. If concern for bowel ischemia, recommend CT abdomen pelvis with venous phase imaging. Dr. Ramirez discussed these findings with Dr. Thompson, vascular surgeon, via shelbi ware at 6:48 PM on 07/03/24. Reading Location: [id number]
--- NOTE | 2024-07-03 13:55 | RAD_ITS ---
EXAM: Modified barium swallow CLINICAL HISTORY: Difficulty swallowing COMPARISON: None TECHNIQUE: Fluoroscopy service was provided for the speech therapist perform a modified barium swallow. FINDINGS: Fluoroscopic time: 319 seconds Fluoroscopy dose: 144.1 mGy RAD/Swallowing Function w/Video IMPRESSION: Fluoroscopic service provided for the speech therapist. Please refer to the sp eech therapist's report for details of the study. Reading Location: [facility]
--- NOTE | 2024-07-03 14:24 | WOUNDNOTE ---
Ostomy appliance removed from the left abdomen. peristomal skin is intact. stoma is pink and well budded. pt uses a 1 piece flat Con[employer]ec appliance with clamp closure. pt did not bring any other appliances with him. pt allowed this nurse to apply a 2 piece flat [place] appliance with lock' n roll closure. pt tolerated well. will monitor.
--- NOTE | 2024-07-03 14:55 | SP.MBSS_ITS ---
Modified Barium Swallow Patient Information Study Date: 07/03/24 Study Time: 13:00 Direct Billable Minutes: 120 Total Minutes procedure & reportin Diagnosis: Leukocytosis D72.829 Referring Physician: Kulwinder De La O Reason for Referral: Assess swallow function, assess risk for aspiration, and determine recommendations for least restrictive diet textures and compensatory strategies to facilitate safe po intake. Medical History: PMH: DVT, Enteritis, Cholelithiasis, Lactic acidosis, Encephalopathy due to inf ection, Acute hypoxemic respiratory failure, Complicated UTI, Severe sepsis with acute organ dysfunction, Aspiration into respiratory tract, FIOR, Colon cancer. Hx of CVA (2014 per pt, Chronic L sided weakness per charting from previous acute stay). The pt is a 74 y/o male who presented to [facility] ED on 07/01/24 with UTI symptoms and nausea with vomiting.? Patient has history of chronic indwelling Maddox catheter.? He began to have dysuria on the day before presentation and then developed nausea with 2 vomiting episodes that morning.? Patient lives at home with his son and daughter.? Uses a walker at baseline but stated he has been more fatigued over the past several days and not been moving around much.? Medical history is otherwise significant for rectal cancer s/p chemoradiation therapy with colonic resection and permanent colostomy and strokes with residual left-sided weakness and left lower extremity DVT.? CT of abdomen and pelvis showed subtle groundglass opacity in the right lower lobe that may represent early pneumonia, chronic hydronephrosis and hydroureter of right kidney, cholelithiasis without evidence of cholecystitis.? ST consulted due to pt coughing on fruit with nursing. BSE completed 07/02/2024 and recommended minced and moist textures / thin liquids w/ total feed and repeat MBSS planned for today. Patient familiar to this ST department from prior hospitalization in December 2023 w/ MBSS completed on 01/12/2024.? Recommendations were as follows: ?Diet: Thin Liquids; Comment: ?Frequent oral care. Full liquid diet until GI intervention. After GI work up, ok to advance to PUREE / THIN, as PET CARE ASSOCIATE was unable to complete cookie trial today due to poor esophageal clearance. Compensatory Strategies: Small Bites, Small Sips (Cue cough and re-swallow after each sip), Slow Rate, Sitting upright and Remain sitting upright for 30 minutes after PO intake (60min after oral intake); Supervision: Total Feed (FOR LIQUIDS TO ENSURE SMALL SIP SIZE); Recommend Repeat Modified Barium Swallow: Yes (4-6 weeks after implementation of oropharyngeal strengthening exercise program. Consider repeat MBSS sooner if worsening respiratory status or poor diet tolerance.)? EGD 01/11/2025 revealed ?Esophageal mucosal changes consistent with eosinophilic esophagitis?Benign-appearing esophageal stenoses. Dilated?Hiatal hernia?No gross lesions in the stomach?Normal second portion of the duodenum?Biopsies were taken with a cold forceps for evaluation of eosinophilic esophagitis.? He was recommended full liquid diet. Patient was upgraded to and discharged from h ospital stay on puree textures / thin liquids. Current Diet Ordered: Minced and moist textures / thin liquids Dentition: Decay and Missing Teeth Mental Status: Impaired (acute confusion) Respiratory Status: Oxygenating on 2L/M nasal cannula Penetration-Aspiration Scale Penetration-Aspiration Scale: OBJECTIVE ASSESSMENT OF SWALLOW FUNCTION (QUANTITATIVE ? PER TRIAL): PENETRATION / ASPIRATION SCALE (GREER): 1 = does not enter airway 2 = enters airway/above vocal folds/ejected 3 = enters airway/above vocal folds/not ejected 4 = enters airway/contacts vocal folds/ejected 5 = enters airway/contacts vocal folds/not ejected 6 = enters airway/below vocal folds/ejected 7 = enters airway/below vocal folds/not ejected despite effort 8 = enters airway/below vocal folds/no effort VIDEOFLOROSCOPIC SCALE SCORE (GREER): Grade I = aspiration of material that has penetrated into the laryngeal vestibule, intact cough reflex Grade II = aspiration < 10 % of the bolus, intact cough reflex Grade III = aspiration of < 10 % of the bolus, reduced cough reflex or aspiration of > 10 % of the bolus, intact cough reflex Grade IV = aspiration of > 10 % of the bolus, reduced cough reflex Penetration-Aspiration Scale Score Thin Liquid via teaspoon: Result: 1= does not enter airway Thin Liquid via teaspoon Trial 2: Result: 2= enter airway/above vocal folds/ejected Thin Liquid via large single sip: cup: Result: 8= enters airway/below vocal folds/no effort Thin Liquid via large single sip: cup Trial 2: Result: 5= enters airways/contacts vocal folds/not ejected Comment: Cued small sip Cedro Thick Liquid via teaspoon: Result: 2= enter airway/above vocal folds/ejected Cedro Thick Liquid via large single sip: cup: Result: 5= enters airways/contacts vocal folds/not ejected Comment: Cued small sip Pudding via teaspoon: Result: 1= does not enter airway Thin Liquid via single sip: straw: Result: 7= enters airways/below vocal folds/not ejected despite effort Comment: Cued small straw sip, pt continued to take large sips Thin Liquid via single sip: straw Effortful swallow: Result: 8= enters airway/below vocal folds/no effort Thin Liquid via single sip: straw Chin tuck: Result: 8= enters airway/below vocal folds/no effort Thin Liquid via single sip: straw Left head turn: Result: 2= enter airway/above vocal folds/ejected Thin Liquid via single sip: straw Left head turn Trial 2: Result: 8= enters airway/below vocal folds/no effort Thin Liquid via teaspoon Trial 3: Result: 3= enters airways/above vocal folds/not ejected Thin Liquid via teaspoon Trial 4: Result: 1= does not enter airway 1/4 Cookie: Result: 2= enter airway/above vocal folds/ejected Thin Liquid via teaspoon Trial 5: Result: 5= enters airways/contacts vocal folds/not ejected Cedro Thick Liquid via small single sip: cup: Result: 5= enters airways/contacts vocal folds/not ejected Oral Phase Labial Seal: Escape progressing to mid-chin Tongue Control During Bolus Hold: Posterior escape of greater than half of bolus Bolus Preparation/Mastication: Disorganized chewing/mashing with solid pieces of bolus unchewed Bolus Transport/Lingual Motion: Repetitive/disorganized tongue motion Oral Residue: Residue collection on oral structures Pharyngeal Phase Initiation of Pharyngeal Swallow: Bolus head in pyriforms Soft Palate Elevation: Trace column of contrast/air between soft palate and pharyngeal wall Laryngeal Elevation: Partial superior movement thyroid cart/partial apprx aryt- epig petiole Anterior Hyoid Excursion: Partial anterior movement Epiglottic Movement: Partial inversion Laryngeal Vestibule Closure at Height of Swallow: Incomplete; narrow column of air/contrast in laryngeal vestibule Pharyngeal Stripping Wave: Present - diminished Pharyngoesophageal Segment Opening: Parital distension and partial duration; parital obstruction of flow Tongue Base Retraction: Wide column of contrast between tongue base & post. pharyngeal wall Pharyngeal Residue: Collection of residue within or on pharyngeal structures Esophageal Phase Esophageal Clearance: Esophageal retention Diagnosis/Impression Diagnosis: Moderate-severe oropharyngeal dysphagia R13.12; Esophageal dysphagia R13.14 Impression: The oral phase is primarily marked by... -Poor bolus control w/ premature posterior loss of >1/2 of liquids to the pyrifo adrian prior to swallow onset. -Disorganized tongue motion for A-P transport. -Decreased, disorganized mastication with small pieces of cookie appearing un- chewed. -Piecemeal deglutition of cookie. The pharyngeal phase is primarily marked by... -Delayed swallow onset. -Decreased airway closure during the swallow due to decreased anterior hyoid excursion, laryngeal elevation, and continued inconsistent epiglottic inversion. -SILENT aspiration of thin liquids by cup, straw, and straw w/ use of strategies (L head turn, effortful, Chin tuck). Overt aspiration of thin by straw. Pt independently takes large sips despite moderate verbal cues and instruction. Cough and re-swallow is somewhat effective in decreasing amount of aspiration. Liquids by tsp were most effective in reducing aspiration risk. The esophageal phase is primarily marked by... -Retention of pudding and cookie in the middle esophagus. Recommendations Diet: Minced and Moist Textures and Thin Liquids Comment: intermittent cough and re-swallow frequent oral care Compensatory Strategies: Small Bites, Liquid by Teaspoon Only, Slow Rate, Alternate bites/solids and sips/liquids, Sitting upright and Remain sitting upright for 30 minutes after PO intake Supervision: 1:1 Direct Supervision (Assist feeding as needed ) Recommend Repeat Modified Barium Swallow: TBD Need for Skilled Speech Therapy Services: Yes Comment: Continued dysphagia therapy services during acute stay and at discharge. POC to include the following... -Train the patient and staff in strategies to decrease risk for aspiration and reflux aspiration. Will recommend the patient for a bolus control cup (5cc) at next level of care. -Train the patient in oropharyngeal strengthening (lingual resistance, effortful, Ai, Tres). -Ongoing assessment of diet tolerance. Recommended Referrals: GI Consult (GI already consulted for consideration for repeat EGD.) Education Completed: 1. Described result of evaluation., 2. Pt understands evaluation & agrees with goals and treatment plan. and 7. Pt requires further education on strategies & risks. Status Active ST Patient: Active Contact Information [facility] Speech Therapy:: Ya Lua M.A. [facility]? Speech-Language Pathologist?? [facility] [address] [place], [place] [address] [address]? [email or web address]?? [phone]
--- NOTE | 2024-07-03 16:12 | CASEMGMT ---
LAQUITA MONTANEZ in to patient's room as requested by family per nursing. Patient and family discussed discharge planning and needs and would like patient to discharge to [facility] for additional therapy. Patient agreeable to plan and declines list for SNFs. Patient and family had no further questions or concerns. LAQUITA MONTANEZ updated discharge strategy planning consultant to send referral to [facility]. CM will continue to follow this patient and plan for a safe discharge.
--- NOTE | 2024-07-03 17:11 | EX.PCM.CON.G ---
HPI Consult Data Date of Consult: 07/03/24 HPI Narrative Reason for Consultation: Aspiration PNA HPI Narrative: EMELIA JOHNSON, is a 74 M who presented to [facility] ED on 07/01/24 with UTI symptoms and nausea with vomiting. Patient is know to the GI service because his h/o oropharyngeal and esophageal dysphagia. CT abdomen pelvis showed subtle groundglass opacity in the right lower lobe that may represent early pneumonia, chronic hydronephrosis and hydroureter of right kidney, cholelithiasis without evidence of cholecystitis. He is being treated for HCAP and possible aspiration PNA. He previously underwent a swallowing study and it displayed: -The esophageal phase is primarily marked by... -Retention of pudding in the lower esophagus w/ retrograde flow to the upper esophagus. -Retention of mildly/nectar thick and honey thick liquids in the mid-lower esophagus w/ retrograde flow to the upper esophagus. -Pt is at risk for reflux aspiration. On his previous visit he underwent an upper endoscopy: Findings: A moderate Schatzki ring was found in the lower third of the esophagus. Biopsies were taken with a cold forceps for histology. Verification of patient identification for the specimen was done. Estimated blood loss was minimal. Coagulation for tissue destruction using argon plasma at 0.3 liters/minute and 20 grover was successful. Estimated blood loss was minimal. Abnormal motility was noted in the esophagus. The cricopharyngeus was abnormal. There are extra peristaltic waves in the esophageal body. The distal esophagus/lower esophageal sphincter is spastic, but gives up passage to the endoscope. Tertiary peristaltic waves are noted. Area was successfully injected with 100 units botulinum toxin. A medium-sized hiatal hernia was present. No gross lesions were noted in the entire examined stomach. No gross lesions were noted in the first portion of the duodenum. Impression: - Moderate Schatzki ring. Biopsied. Treated with argon plasma coagulation (APC). - Abnormal esophageal motility, consistent with achalasia. Injected with botulinum toxin. - Medium-sized hiatal hernia. - No gross lesions in the entire stomach. - No gross lesions in the first portion of the duodenum. Recommendation: - Discharge patient to home. - Resume previous diet. - Continue present medications. - Await pathology results. - Repeat upper endoscopy in 3 months for surveillance. [facility] Medical History MRSA (methicillin resistant staph aureus) culture positive Wears glasses Low iron Stroke/cerebrovascular accident Former smoker Colostomy in place Family history of abdominal aortic aneurysm repair DVT (deep venous thrombosis) Enteritis Cholelithiasis Acidosis, lactic Encephalopathy due to infection Acute hypoxemic respiratory failure Complicated urinary tract infection Severe sepsis with acute organ dysfunction Aspiration into respiratory tract FIOR (acute kidney injury) Colon cancer Home Medications ?Medication ?Instructions ?Recorded ?Last Taken ?Type finasteride 5 mg tablet 5 mg PO DAILY prostate 06/22/23 06/30/24 History ferrous sulfate 325 mg (65 mg 325 mg PO BIDCM iron #1 TAB 06/26/23 01/09/24 Rx iron) tablet levothyroxine 100 mcg tablet 100 mcg PO DAILY@0600 #30 tabs 01/15/24 06/30/24 Rx pantoprazole 40 mg tablet,delayed 40 mg PO BID #60 tabs 01/15/24 06/30/24 Rx release albuterol sulfate 90 mcg/actuation 1 - 2 puff inhalation 4X/DAY PRN 02/22/24 Unknown History aerosol inhaler wheezing apixaban 5 mg tablet (Eliquis) 5 mg PO BID 02/22/24 06/30/24 History amlodipine 5 mg tablet 5 mg PO DAILY 07/01/24 06/30/24 History aspirin 81 mg tablet,delayed 81 mg PO DAILY 07/01/24 06/30/24 History release ergocalciferol (vitamin D2) 1,250 1,250 mcg PO MO 07/01/24 06/26/24 History mcg (50,000 unit) capsule fluticasone fur. 100 mcg-umeclid 1 ea inhalation DAILY 07/01/24 06/30/24 History 62.5 mcg-vilant 25 mcg inhalat.powder (Trelegy Ellipta) icosapent ethyl 1 gram capsule 2 g PO BID 07/01/24 06/30/24 History levothyroxine 150 mcg tablet 150 mcg PO DAILY 07/01/24 06/30/24 History linagliptin 5 mg tablet (Tradjenta) 5 mg PO DAILY 07/01/24 06/30/24 History rosuvastatin 20 mg tablet 20 mg PO QHS 07/01/24 06/30/24 History Allergy/AdvReac Type Severity Reaction Status Date / Time No Known Allergies Allergy Verified 07/01/24 13:29 Surgical History Hx of abdominal surgery Hx of endarterectomy (~2020) Social History Smoking Status: Former smoker Tobacco: How many years used: 50 ROS Constitutional Constitutional: Reports fatigue and weakness; Denies chills or fever(s) Eyes Eyes: Denies change in vision Cardiovascular Cardiovascular: Denies chest pain Respiratory/Chest Respiratory/Chest: Denies cough, productive cough or shortness of breath at rest Gastrointestinal Gastrointestinal: Reports nausea and vomiting; Denies abdominal pain, constipation or diarrhea Genitourinary Genitourinary: Reports dysuria Musculoskeletal Musculoskeletal: Denies arthralgias or myalgias Physical Exam Const alert, oriented x3, no apparent distress and healthy appearing General Appearance: cooperative GI normal to inspection, nondistended, normoactive bowel sounds, soft to palpation, non-tender and non-distended Percussion: normal to percussion Rectal Exam: deferred Lab / Micro Data 07/03/24 06:33 07/03/24 06:33 Labs: Laboratory Results - last 24 hr 07/03/24 06:33: WBC 8.2, RBC 3.93 L, Hgb 11.7 L, Hct 37.3 L, MCV 94.9 H, MCH 29.8, MCHC 31.4 L, RDW Std Deviation 53.0 H, RDW Coeff of Yanira 15.1 H, Plt Count 86 L, MPV 12.4 H, Sodium 138, Potassium 3.8, Chloride 107, Carbon Dioxide 21.7, Anion Gap 10, BUN 20 H, Creatinine 1.76 H, Estim Creat Clear Calc 39.97 L, Est GFR (MDRD) Non-Af 40 L, BUN/Creatinine Ratio 11.4, Glucose 98, Calcium 8.4 Micro: Microbiology 07/01/24 10:21 Blood Culture (Wb) - Anticubital Left Blood Culture - Preliminary No growth in 48 hours. 07/01/24 09:42 Blood Culture (Wb) - Anticubital Left Blood Culture - Preliminary No growth in 48 hours. 07/01/24 10:04 Urine Catheter - Maddox Urine Culture - Final Meth. resistant Staph. aureus Assessment & Plan Assessment/Plan (1) Encephalopathy acute: (2) Acute UTI: PLAN: Plan 74 yo with h/o colon cancer s/p resection with end ileostomy with possible aspiration PNA and esophageal dysphagia Dysphagia Speech therapy on board. He had EGD which showed evidence of eosinophilic esophagitis and benign appearing esophageal stenosis which was dilated, as well as hiatal hernia. He will undergo a repeat egd to access his upper GI for possible etiology ofaspiration PNA. on IV PPI History of colon cancer: has ileostomy in place. Charges/Coding Visit Charges Inpatient E&M: 49100 Init Hosp L3
[2024-07-03] MEDS: Doxycycline 100 MG CAPSULE PO (20:58)
[2024-07-03] MEDS: Atorvastatin Calcium 40 MG Tablet PO (20:58)
[2024-07-03 22:29] LABS: Lactic Acid 2.4 mmol/L (0.0-2.0)
[2024-07-03 22:29] LABS: Lactic Acid 2.9 mmol/L (0.0-2.0)
[2024-07-04] VITALS (16 sets, daily range): BP systolic 80–141; BP diastolic 59–83; PULSE 79–102; RESP 14–20; TEMP 36.2–36.9; O2SAT 90–100; BMI 27.9
[2024-07-04] MEDS: Nystatin Powder 15gm Bottle 1 APPLIC TOPICAL ×2 (05:40→14:35)
--- NOTE | 2024-07-04 05:55 | EKG12_ITS ---
Test Reason : PRE-OP Blood Pressure : */* mmHG Vent. Rate : 79 BPM Atrial Rate : 79 BPM P-R Int : 168 ms QRS Dur : 142 ms QT Int : 404 ms P-R-T Axes : 46 42 42 degrees QTcB Int : 463 ms Normal sinus rhythm Right bundle branch block Abnormal ECG When compared with ECG of 11-Jan-2024 00:27, Premature ventricular complexes are no longer Present Left anterior fascicular block is no longer Present Confirmed by JENIFFER MURILLO, CHETAN ([id number]), editor managing newspaper JUDIE LAWSON ([id number]) on 07/04/2024 8:07:20 AM Referred By: Confirmed By: CHETAN SWIFT MD
[2024-07-04 06:44] LABS: Hematocrit 39.4 % (40-54); Hemoglobin 12.5 g/dL (13.0-16.5); Mean Corp Hgb Conc 31.7 g/dL (32-36); Mean Corpuscular Hgb 29.8 pg (27.0-32.0); Mean Corpuscular Volume 93.8 fL (80-94); Mean Platelet Vol. 11.5 fl (6.2-12.0); Platelet Count 100 K/mm3 (150-450); RBC Distribution Width SD 52.1 fl (35.1-43.9); White Blood Count 6.1 K/mm3 (4.4-11.0)
[2024-07-04 06:47] LABS: Scan Indicated on CBC? Y/N NO
[2024-07-04] MEDS: Budesonide Respules 0.5 MG/2 ML AMPUL.NEB. INHALATION ×2 (07:25→19:06)
[2024-07-04] MEDS: Ipratropium/Albuterol Sulfate 3 ML AMPUL.NEB INHALATION ×3 (07:25→19:06)
[2024-07-04 07:36] LABS: Anion Gap 12 (5-15); BUN 16 mg/dL (4-19); BUN/Creat Ratio 9.8 RATIO (10-20); Calcium,Total 8.9 mg/dL (7.6-11.0); Carbon Dioxide 20.8 mmol/L (21.0-32.0); Chloride 106 mmol/L (98-108); Creatinine, Serum 1.58 mg/dL (0.70-1.20); EST Glomerular Filtration Rate 46 (>60); Estimated Creatinine Clearance 44.52 ml/min (50-250); Glucose 112 mg/dL (70-99); Potassium 3.7 mmol/L (3.3-5.1); Sodium Level 139 mmol/L (133-145)
--- NOTE | 2024-07-04 08:22 | CASEMGMT ---
Discharge Planning Referral sent to [facility]. Nadine Betts DC Planning Asst.
--- NOTE | 2024-07-04 09:33 | EX.PCM.CON.S ---
Documented by User: MICHAEL Frost 07/04/24 10:59 Assessment & Plan Assessment/Plan (1) Peripheral arterial disease with history of revascularization: (2) Femoral arteriovenous fistula, left: PLAN: Plan Reviewed CTA images; Findings of likely iatrogenic L femoral AVF, inflammation around prior graft; these appear to be acute findings. This would require surgical intervention which would best be performed at a tertiary facility. I discussed this with the patient and his daughter. Patient does wish to proceed with surgical intervention if necessary. Both are understanding of the need for transfer to tertiary facility; all of their questions and concerns were addressed to their apparent satisfaction. Recommend transfer to [facility]. HPI Consult Data Date of Consult: 07/04/24 HPI Narrative HPI Narrative: EMELIA JOHNSON, is a 74 M who presented to [facility] ER 07/02/23 with concern for UTI with dysuria, fevers, malaise. UTI was found and he was admitted for management. On admission, also noticed to have significant LLE edema and venous duplex was obtained which demonstrated arterialized flow through the LLE venous system and otherwise negative for acute DVT. 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 There is moderate ill-defined thickening with enhancement and left inguinal lymphadenopathy, most compatible with infectious etiology. I saw patient this morning resting in bed. He has had some chronic LLE edema secondary to his history of prior DVTs in 05/2023; however, he reports his swelling acutely worsened late last week. He has not noticed any area of redness, excess warmth, or focal swelling in his groin/lower extremity. I also spoke to his daughter Shaunna, she felt she noticed his LLE swelling appeared acutely worse just the day before his presentation to [facility]. As noted, he has had prior duplex studies for his DVTs, none of which demonstrated findings consistent with possible AVF. He has a history of prior AAA repair with aortobiiliac graft performed at [facility] and prior R CEA; his recent vascular surgical care has been through [facility]. [facility] Medical History MRSA (methicillin resistant staph aureus) culture positive Wears glasses Low iron Stroke/cerebrovascular accident Former smoker Colostomy in place Family history of abdominal aortic aneurysm repair DVT (deep venous thrombosis) Enteritis Cholelithiasis Acidosis, lactic Encephalopathy due to infection Acute hypoxemic respiratory failure Complicated urinary tract infection Severe sepsis with acute organ dysfunction Aspiration into respiratory tract FIOR (acute kidney injury) Colon cancer Home Medications ?Medication ?Instructions ?Recorded ?Last Taken ?Type finasteride 5 mg tablet 5 mg PO DAILY prostate 06/22/23 06/30/24 History ferrous sulfate 325 mg (65 mg 325 mg PO BIDCM iron #1 TAB 06/26/23 01/09/24 Rx iron) tablet levothyroxine 100 mcg tablet 100 mcg PO DAILY@0600 #30 tabs 01/15/24 06/30/24 Rx pantoprazole 40 mg tablet,delayed 40 mg PO BID #60 tabs 01/15/24 06/30/24 Rx release albuterol sulfate 90 mcg/actuation 1 - 2 puff inhalation 4X/DAY PRN 02/22/24 Unknown History aerosol inhaler wheezing apixaban 5 mg tablet (Eliquis) 5 mg PO BID 02/22/24 06/30/24 History amlodipine 5 mg tablet 5 mg PO DAILY 07/01/24 06/30/24 History aspirin 81 mg tablet,delayed 81 mg PO DAILY 07/01/24 06/30/24 History release ergocalciferol (vitamin D2) 1,250 1,250 mcg PO MO 07/01/24 06/26/24 History mcg (50,000 unit) capsule fluticasone fur. 100 mcg-umeclid 1 ea inhalation DAILY 07/01/24 06/30/24 History 62.5 mcg-vilant 25 mcg inhalat.powder (Trelegy Ellipta) icosapent ethyl 1 gram capsule 2 g PO BID 07/01/24 06/30/24 History levothyroxine 150 mcg tablet 150 mcg PO DAILY 07/01/24 06/30/24 History linagliptin 5 mg tablet (Tradjenta) 5 mg PO DAILY 07/01/24 06/30/24 History rosuvastatin 20 mg tablet 20 mg PO QHS 07/01/24 06/30/24 History Allergy/AdvReac Type Severity Reaction Status Date / Time No Known Allergies Allergy Verified 07/01/24 13:29 Surgical History Hx of abdominal surgery Hx of endarterectomy (~2020) Social History Smoking Status: Former smoker Tobacco: How many years used: 50 Physical Exam Const alert and oriented x3 General Appearance: cooperative HEENT external ears normal and external nose normal Head and Scalp: normocephalic and atraumatic Nose: external nose normal Eyes EOMs intact bilaterally General Eye: normal appearance of both eyes Neck General: normal visual inspection and trachea midline Resp normal respiratory effort, normal air movement, no retractions and no use of accessory muscles Effort and Inspection: able to speak in complete sentences; Negative for labored, grunting or stridor Cardio regular rate and regular rhythm GI GI Narrative: colostomy Extremity Extremity Narrative: Significant diffuse 3+ edema of the LLE, generally soft to palpation; no focal areas of erythema/excess warmth/fluctuance/induration Skin no rashes or lesions noted Trauma: no lacerations or abrasions Neuro oriented x3, moves all extremities and no focal motor deficits Speech: speech normal Psych mental status grossly normal Attitude: calm Lab / Micro Data 07/04/24 06:29 07/04/24 06:29 Labs: Laboratory Results - last 24 hr 07/01/24 09:42: Lactic Acid 2.4 H* 07/01/24 12:48: Lactic Acid 2.9 H* 07/04/24 06:29: WBC 6.1, RBC 4.20 L, Hgb 12.5 L, Hct 39.4 L, MCV 93.8, MCH 29.8, MCHC 31.7 L, RDW Std Deviation 52.1 H, RDW Coeff of Yanira 15.0 H, Plt Count 100 L, MPV 11.5, Sodium 139, Potassium 3.7, Chloride 106, Carbon Dioxide 20.8 L, Anion Gap 12, BUN 16, Creatinine 1.58 H, Estim Creat Clear Calc 44.52 L, Est GFR (MDRD) Non-Af 46 L, BUN/Creatinine Ratio 9.8 L, Glucose 112 H, Calcium 8.9 Micro: Microbiology 07/01/24 10:21 Blood Culture (Wb) - Anticubital Left Blood Culture - Preliminary No growth in 48 hours. 07/01/24 09:42 Blood Culture (Wb) - Anticubital Left Blood Culture - Preliminary No growth in 48 hours. 07/01/24 10:04 Urine Catheter - Maddox Urine Culture - Final Meth. resistant Staph. aureus Imaging Radiology Impression Abdomen/Pelvis CTA 07/03/24 13:40 IMPRESSION: 1. 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 There is moderate ill-defined thickening with enhancement and left inguinal lymphadenopathy, most compatible with infectious etiology. Additional considerations include iatrogenic etiology or secondary to recent procedure. 2. Layering hyperdensity within the right external iliac vein subjacent to the bypassed right common iliac artery, concerning for additional AVM, however this is difficult to assess without venous phase imaging. 3. Occlusion of the right femoral and deep femoral arteries with severe stenosis/occlusion of the trifurcation arteries. 4. Diffuse dilation with air-fluid levels throughout the small bowel. No pneumoperitoneum. If concern for bowel ischemia, recommend CT abdomen pelvis with venous phase imaging. Dr. Ramirez discussed these findings with Dr. Thompson, vascular surgeon, via telephone at 6:48 PM on 07/03/24. Reading Location: [facility] Charges/Coding Visit Charges Inpatient E&M: 07678 Init Hosp L2 Documented by User: Dr. Efraín Thompson MD 07/04/24 17:14 Assessment & Plan Assessment/Plan (1) Peripheral arterial disease with history of revascularization: (2) Femoral arteriovenous fistula, left: HPI Consult Data Date of Consult: 07/04/24 HPI Narrative HPI Narrative: EMELIA JOHNSON, is a 74 M who presented to [facility] ER 07/02/23 with concern for UTI with dysuria, fevers, malaise. UTI was found and he was admitted for management. On admission, also noticed to have significant LLE edema and venous duplex was obtained which demonstrated arterialized flow through the LLE venous system and otherwise negative for acute DVT. 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 There is moderate ill-defined thickening with enhancement and left inguinal lymphadenopathy, most compatible with infectious etiology. I saw patient this morning resting in bed. He has had some chronic LLE edema secondary to his history of prior DVTs in 05/2023; however, he reports his swelling acutely worsened late last week. He has not noticed any area of redness, excess warmth, or focal swelling in his groin/lower extremity. I also spoke to his daughter Shaunna, she felt she noticed his LLE swelling appeared acutely worse just the day before his presentation to [facility]. As noted, he has had prior duplex studies for his DVTs, none of which demonstrated findings consistent with possible AVF. He has a history of prior AAA repair with aortobiiliac graft performed at [facility] and prior R CEA; his recent vascular surgical care has been through [facility]. Case/images reviewed with [facility] vascular surgery. No overt infection visualized, but really uncertain why acute fistula/symptoms. Fistula appears to be from lateral branch of profunda femoral artery. Their recommendation was covered stent in the profunda branch to at least address fistula/venous pressures and his acute symptoms. Subsequent imaging could then be done as outpatient to further assess for infectious etiology. If patient agreeable could perform stent here; will discuss with patient/daughter. [facility] Medical History MRSA (methicillin resistant staph aureus) culture positive Wears glasses Low iron Stroke/cerebrovascular accident Former smoker Colostomy in place Family history of abdominal aortic aneurysm repair DVT (deep venous thrombosis) Enteritis Cholelithiasis Acidosis, lactic Encephalopathy due to infection Acute hypoxemic respiratory failure Complicated urinary tract infection Severe sepsis with acute organ dysfunction Aspiration into respiratory tract FIOR (acute kidney injury) Colon cancer Home Medications ?Medication ?Instructions ?Recorded ?Last Taken ?Type finasteride 5 mg tablet 5 mg PO DAILY prostate 06/22/23 06/30/24 History ferrous sulfate 325 mg (65 mg 325 mg PO BIDCM iron #1 TAB 06/26/23 01/09/24 Rx iron) tablet levothyroxine 100 mcg tablet 100 mcg PO DAILY@0600 #30 tabs 01/15/24 06/30/24 Rx pantoprazole 40 mg tablet,delayed 40 mg PO BID #60 tabs 01/15/24 06/30/24 Rx release albuterol sulfate 90 mcg/actuation 1 - 2 puff inhalation 4X/DAY PRN 02/22/24 Unknown History aerosol inhaler wheezing apixaban 5 mg tablet (Eliquis) 5 mg PO BID 02/22/24 06/30/24 History amlodipine 5 mg tablet 5 mg PO DAILY 07/01/24 06/30/24 History aspirin 81 mg tablet,delayed 81 mg PO DAILY 07/01/24 06/30/24 History release ergocalciferol (vitamin D2) 1,250 1,250 mcg PO MO 07/01/24 06/26/24 History mcg (50,000 unit) capsule fluticasone fur. 100 mcg-umeclid 1 ea inhalation DAILY 07/01/24 06/30/24 History 62.5 mcg-vilant 25 mcg inhalat.powder (Trelegy Ellipta) icosapent ethyl 1 gram capsule 2 g PO BID 07/01/24 06/30/24 History levothyroxine 150 mcg tablet 150 mcg PO DAILY 07/01/24 06/30/24 History linagliptin 5 mg tablet (Tradjenta) 5 mg PO DAILY 07/01/24 06/30/24 History rosuvastatin 20 mg tablet 20 mg PO QHS 07/01/24 06/30/24 History Allergy/AdvReac Type Severity Reaction Status Date / Time No Known Allergies Allergy Verified 07/01/24 13:29 Surgical History Hx of abdominal surgery Hx of endarterectomy (~2020) Social History Smoking Status: Former smoker Tobacco: How many years used: 50 Lab / Micro Data 07/04/24 06:29 07/04/24 06:29
--- NOTE | 2024-07-04 11:08 | CASEMGMT ---
Addendum entered by Nadine Betts 07/04/24 11:20: [facility] updated that pt will transfer to [facility]. Nadine Betts DC Planning Asst. Original Note: [facility] has accepted. updated. Nadine Betts DC Planning Asst.
--- NOTE | 2024-07-04 15:35 | PCM.PRE.AN2 ---
ASA Classification* ASA Classification ASA Classification: 3 and E Assessment & Plan Anesthesia* Anesthesia Assessment Anesthesia Assessment: Discussed sedation and/or anesthesia options, risks, benefits, and alternatives with patient/parents/legal guardian/POA. Questions invited. The patient/parents/legal guardian/POA seems to understand and agrees to proceed with anesthesia plan. Reviewed the physical assessment, medical history, allergy history and patient home medications list prior to surgery/procedure/anesthetic and documented any changes. Performed airway and anesthesia risk assessments. Anesthesia Type Anesthesia Type: MAC History Source History Obtained from:: Patient and Chart Anesthesia Focused Assessment* Temperature: 97.9 F Pulse Rate: 90 Blood Pressure: 113/64 Respiratory Rate: 18 Pulse Ox: 93 Oxygen Delivery Method: Room Air Airway Assessment Mouth opens: >3 cm Mallampati Score: III Teeth Condition: Chipped/Broken (Patien has poor dentition.) and Missing (Missing multiple teeth.) Neck Range of motion (ROM): Limited ROM Focused Labs Anesthesia Preop lab: CBC WBC 6.1 K/mm3 (4.4-11.0) 07/04/24 06:07/04/24 RBC 4.20 M/mm3 (4.6-6.2) L 07/04/24 06:07/04/24 Hgb 12.5 g/dL (13.0-16.5) L 07/04/24 06:07/04/24 Hct 39.4 % (40-54) L 07/04/24 06:07/04/24 Plt Count 100 K/mm3 (150-450) L 07/04/24 06:07/04/24 CHEMISTRY Potassium 3.7 mmol/L (3.3-5.1) 07/04/24 06:07/04/24 Sodium 139 mmol/L (133-145) 07/04/24 06:07/04/24 Magnesium 2.0 mg/dL (1.6-2.6) 01/10/24 15:09 01/10/24 Phosphorus 2.9 mg/dL (2.5-4.9) 01/10/24 15:09 01/10/24 BUN 16 mg/dL (4-19) 07/04/24 06:07/04/24 Creatinine 1.58 mg/dL (0.70-1.20) H 07/04/24 06:29 07/04/24 Glucose 112 mg/dL (70-99) H 07/04/24 06:29 07/04/24 POC Glucose 202 mg/dL (74-106) H 02/23/24 11:30 02/23/24 TSH 0.599 uIU/mL (0.358-3.740) 01/17/24 06:50 01/17/24 COAG PT 19.3 SECONDS (11.7-14.9) H 01/10/24 17:00 01/10/24 Pre-Assessment Diagnosis/Proposed Procedure Planned Operative Procedure(s): Esophagogastroduodenoscopy with possible cautery and/or injection therapy. 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 When Was Last Pacemaker Check QUESTION #4 FULL TEXT: You/Your Family Experience fever (hyperthermia) with Anesthesia Last Oral Intake Last Oral intake: Last Oral Intake NPO since 00:00 07/04/24 15:22 Meds taken in AM with sips of No 07/04/24 15:22 water? 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 Female HX of Motion Sickness HX of N/V After Surgery Non-Smoker Duration of Surgery greater than 60 minutes Number of Risk Factors PONV Score Height & Weight Height & Weight: Anesthesia: Height & Weight Height 5 ft 9 in 07/04/24 15:22 Weight: 85.8 kg 07/04/24 15:22 Body Mass Index (BMI) 27.9 07/04/24 15:22 Respiratory Assessment Respiratory Assessment - blown film extrusion operator: Respiratory Tract Infection Hx - blown film extrusion operator Hx Respiratory Tract Infection No 07/04/24 15:23 STOP Sleep Apnea STOP Sleep Apnea - blown film extrusion operator: STOP Sleep Apnea - blown film extrusion operator Hx Hypertension No 07/02/24 13:20 Hx Sleep Apnea No 07/01/24 13:07 CPAP BIPAP Do you snore loudly (louder No 07/01/24 13:07 than talking or can be heard Do you often feel tired/ No 07/01/24 13:07 fatigued/ sleepy during daytime? Has anyone observed you stop No 07/01/24 13:07 breathing during sleep? STOP Results Negative 07/01/24 13:07 QUESTION #5 FULL TEXT : Do you snore loudly (louder than talking or can be heard through closed doors)? 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 Specify any problems Hx of Preganancy in last 3 N/A 07/01/24 13:07 Months Nurse Filling Out Transfusion [id number] 07/01/24 13:07 & Questions: Date: 07/01/24 07/01/24 13:07 Time: 13:20 07/01/24 13:07 Patient unable to answer at this time (ie. confused, unrespo /Reproduction History /Reproductive History - blown film extrusion operator: /Reproductive Hx- blown film extrusion operator Hx Now No 07/04/24 15:23 Gestational Age (in weeks): EDC: Hx Hx Para Hx Section SAB No 07/04/24 15:23 Active Medications Active Medications: Current Medications Generic Name Dose Route Start Last Admin Trade Name Freq PRN Reason Stop Dose Admin Acetaminophen 650 mg 07/01/24 13:08 Acetaminophen 325 Mg Tablet PO Q6H PRN PRN Pain 1-10 Or Fever>100.7 Albuterol Sulfate 2.5 mg 07/01/24 13:16 Albuterol 2.5 Mg/3 Ml Vial.Neb. INHALATION Q4H PRN wheezing Albuterol/Ipratropium 3 ml 07/01/24 13:15 07/04/24 12:38 Ipratropium/Albuterol Sulfate 3 Ml Ampul.Neb INHALATION 3 ml Q6HWA.RT CJ Administration Apixaban 5 mg 07/01/24 22:00 07/04/24 08:30 Apixaban 5 Mg Tablet PO Not Given BID CJ Aspirin 81 mg 07/02/24 08:00 07/04/24 08:30 Aspirin E.C. 81 Mg Tablet PO Not Given BREAKFAST CJ Atorvastatin Calcium 40 mg 07/01/24 22:00 07/03/24 20:58 Atorvastatin Calcium 40 Mg Tablet PO 40 mg QHS CJ Administration Budesonide 0.5 mg 07/01/24 13:15 07/04/24 07:25 Budesonide Respules 0.5 Mg/2 Ml Ampul.Neb. INHALATION 0.5 mg Q12H.RT CJ Administration Doxycycline Monohydrate 100 mg 07/03/24 22:00 07/04/24 10:59 Doxycycline 100 Mg Capsule PO 07/07/24 22:01 Not Given BID CJ Finasteride 5 mg 07/02/24 10:00 07/04/24 08:31 Finasteride 5 Mg Tablet PO Not Given DAILY CJ Sodium Chloride 100 mls @ 15 mls/hr 07/01/24 13:38 IV .Q6H40M PRN Saline Flush Sodium Chloride 100 mls @ 15 mls/hr 07/01/24 13:38 IV .Q6H40M PRN Additional IVPB Infusion Icosapent Ethyl 2 gm 07/01/24 22:00 07/04/24 08:31 Icosapent Ethyl 1 Gm Capsule PO Not Given BID CJ Levothyroxine Sodium 150 mcg 07/02/24 06:00 07/04/24 05:39 Levothyroxine 150 Mcg Tablet PO Not Given DAILY@0600 CJ Melatonin 3 mg 07/01/24 13:08 Melatonin 3 Mg Tablet PO QHS PRN PRN INSOMNIA Nystatin 1 applic 07/01/24 22:30 07/04/24 14:35 Nystatin Powder 15gm Bottle TOPICAL 1 applic TID CJ Administration Protocol Ondansetron HCl 4 mg 07/01/24 13:08 07/01/24 13:50 Ondansetron 4 Mg/2 Ml Vial IV 4 mg Q8H PRN PRN Administration NAUSEA/VOMITING Pantoprazole Sodium 40 mg 07/01/24 22:00 07/04/24 08:31 Pantoprazole Sodium 40 Mg Tablet PO Not Given BID CJ Sodium Chloride 10 - 40 ml 07/01/24 13:22 07/01/24 21:17 0.9% Saline Lock 10 Ml Syringe IV 10 ml UD PRN Administration SALINE FLUSH Sodium Chloride 10 - 40 ml 07/01/24 13:38 0.9% Saline Lock 10 Ml Syringe IV UD PRN SALINE FLUSH [facility] Medical History MRSA (methicillin resistant staph aureus) culture positive Wears glasses Low iron Stroke/cerebrovascular accident Former smoker Colostomy in place Family history of abdominal aortic aneurysm repair DVT (deep venous thrombosis) Enteritis Cholelithiasis Acidosis, lactic Encephalopathy due to infection Acute hypoxemic respiratory failure Complicated urinary tract infection Severe sepsis with acute organ dysfunction Aspiration into respiratory tract FIOR (acute kidney injury) Colon cancer Home Medications ?Medication ?Instructions ?Recorded ?Last Taken ?Type finasteride 5 mg tablet 5 mg PO DAILY prostate 06/22/23 06/30/24 History ferrous sulfate 325 mg (65 mg 325 mg PO BIDCM iron #1 TAB 06/26/23 01/09/24 Rx iron) tablet levothyroxine 100 mcg tablet 100 mcg PO DAILY@0600 #30 tabs 01/15/24 06/30/24 Rx pantoprazole 40 mg tablet,delayed 40 mg PO BID #60 tabs 01/15/24 06/30/24 Rx release albuterol sulfate 90 mcg/actuation 1 - 2 puff inhalation 4X/DAY PRN 02/22/24 Unknown History aerosol inhaler wheezing apixaban 5 mg tablet (Eliquis) 5 mg PO BID 02/22/24 06/30/24 History amlodipine 5 mg tablet 5 mg PO DAILY 07/01/24 06/30/24 History aspirin 81 mg tablet,delayed 81 mg PO DAILY 07/01/24 06/30/24 History release ergocalciferol (vitamin D2) 1,250 1,250 mcg PO MO 07/01/24 06/26/24 History mcg (50,000 unit) capsule fluticasone fur. 100 mcg-umeclid 1 ea inhalation DAILY 07/01/24 06/30/24 History 62.5 mcg-vilant 25 mcg inhalat.powder (Trelegy Ellipta) icosapent ethyl 1 gram capsule 2 g PO BID 07/01/24 06/30/24 History levothyroxine 150 mcg tablet 150 mcg PO DAILY 07/01/24 06/30/24 History linagliptin 5 mg tablet (Tradjenta) 5 mg PO DAILY 07/01/24 06/30/24 History rosuvastatin 20 mg tablet 20 mg PO QHS 07/01/24 06/30/24 History Allergy/AdvReac Type Severity Reaction Status Date / Time No Known Allergies Allergy Verified 07/01/24 13:29 Surgical History Hx of abdominal surgery Hx of endarterectomy (~2020) Social History Smoking Status: Former smoker Tobacco: How many years used: 50 Review of Systems (Anesthesia) ROS Narrative System reviewed and no additional complaints, except as documented.
--- NOTE | 2024-07-04 16:29 | PN_ITS ---
Progress Note Patient is scheduled for an upper endoscopy today. All questions and concerns answered. Physical Exam Const alert and oriented x3 General Appearance: cooperative HEENT external ears normal and external nose normal Head and Scalp: normocephalic and atraumatic Nose: external nose normal Eyes EOMs intact bilaterally General Eye: normal appearance of both eyes Neck General: normal visual inspection and trachea midline Resp normal respiratory effort, normal air movement, no retractions and no use of accessory muscles Effort and Inspection: able to speak in complete sentences; Negative for labored, grunting or stridor Cardio regular rate and regular rhythm GI GI Narrative: colostomy Extremity Extremity Narrative: Significant diffuse 3+ edema of the LLE, generally soft to palpation; no focal areas of erythema/excess warmth/fluctuance/induration Skin no rashes or lesions noted Trauma: no lacerations or abrasions Neuro oriented x3, moves all extremities and no focal motor deficits Speech: speech normal Psych mental status grossly normal Attitude: calm Assessment & Plan Assessment/Plan (1) Encephalopathy acute: (2) Acute UTI: PLAN: Plan 74 yo with h/o colon cancer s/p resection with end ileostomy with possible aspiration PNA and esophageal dysphagia Dysphagia * Speech therapy on board. * He had EGD which showed evidence of eosinophilic esophagitis and benign appearing esophageal stenosis which was dilated, as well as hiatal hernia. * He will undergo a repeat egd to access his upper GI for possible etiology ofaspiration PNA. * on IV PPI History of colon cancer: has ileostomy in place. Visit Charges Inpatient E&M: 19304 Subs Hosp L2
--- NOTE | 2024-07-04 16:30 | EGD_PTH ---
PATIENT: EMELIA JOHNSON LOC: [facility] U#:[id number] AGE/SX: 74/M ROOM: [facility] RE07/01/[address]: Dr. Ginger Espitia DO : 1950 BED: 1 DIS: 07/07/2024 SPEC #: [id number] RECD: 07/05/24 07:14 STATUS: ROSA ELENA SANTIAGO #: [id number] PRASHANT: 07/04/24 16:[address]: David Ramos DEPT: SURGICAL PATHOLOGY RECD BY: Lloyd Rowell ENTERED: 07/05/24 08:57 SP TYPE: EGD BIOPSY LEIF DR: DO Jenae Serrano MD Dr. Eric Turney, MD Dr. Kathryn Lee, DO Tissues: A - Esophagus, NOS Procedures: Immunohistochemical Stains Special Stain Group I Surgery Specimen Level IV GMS Stain (control) IHC Stain ADDITIONAL HEADER OPERATION: EGD with biopsy and dilation PRE-OP DIAGNOSIS: Oropharyngeal and esophageal dysphagia TISSUE SUBMITTED: A- Random esophagus biopsy MICROSCOPIC DIAGNOSIS A. Esophagus, random, biopsy: * Acutely inflamed squamous and columnar mucosa. * Numerous fragments of fibrinopurulent debris consistent with ulcer. * HSV immunostain is pending at [facility] and will be reported in an addendum. * CMV immunostain is pending at [facility] and will be reported in an addendum. * PASD stain is negative for fungal organisms. MICROSCOPIC DESCRIPTION Slides are reviewed. GROSS DESCRIPTION A. Received in formalin in a container labeled with the patient's name, date of , and random esophagus biopsy are multiple carcamo-pink fragments of mucosal tissue measuring 0.7 x 0.5 x 0.2 cm in aggregate. Submitted in toto in A1. [facility] 07-05-2024 CPT:21925, 57097, [id number] ADDENDUM ADDENDUM ADDENDUM ADDENDUM ADDENDUM ADDENDUM ADDENDUM ADDENDUM ADDENDUM ADDENDUM ADDENDUM ADDENDUM ADDENDUM 07/19/2024 12:57 ADDENDUM 07/19/2024 12:57 ADDENDUM 07/19/2024 12:57 ADDENDUM 07/19/2024 12:57 ADDENDUM 07/19/2024 12:57 This addendum is to report the findings of the IHC for CMV and HSV (types I&II) performed at [facility]: CMV is negative. HSV is negative. All matched controls reacted appropriately. These tests were developed and their performance characteristics determined by [facility]. They may not have been cleared or approved by the U.S. Food and Drug Administration. The FDA has determined that such clearance or approval is not necessary. The above immunohistochemical/dualISH markers are ordered and reviewed by the Pathologist.
--- NOTE | 2024-07-04 16:57 | OP.EGD_ITS ---
Patient Name: Bernabe Nicole Procedure Date: 07/04/2024 4:32 PM Date of : 1950 Age: 74 Procedure: Upper GI endoscopy Indications: Iron deficiency anemia, Dysphagia Providers: David Raoms DO Medicines: Monitored Anesthesia Care Patient Profile: This is a 74 year old male. Refer to note in patient chart for documentation of history and physical. Patient has symptoms of acute epigastric abdominal pain and dysphagia with both liquids and solids. His most recent EGD for dilation was within the past six months. Complications: No immediate complications. Procedure: Pre-Anesthesia Assessment: - Prior to the procedure, a History and Physical was performed, and patient medications and allergies were reviewed. The patient is competent. The risks and benefits of the procedure and the sedation options and risks were discussed with the patient. All questions were answered and informed consent was obtained. Patient identification and proposed procedure were verified by the physician in the pre-procedure area. Mental Status Examination: alert and oriented. Airway Examination: normal oropharyngeal airway and neck mobility. Respiratory Examination: clear to auscultation. CV Examination: normal. Prophylactic Antibiotics: The patient does not require prophylactic antibiotics. Prior Anticoagulants: The patient has taken no anticoagulant or antiplatelet agents except for NSAID medication. ASA Grade Assessment: II - A patient with mild systemic disease. After reviewing the risks and benefits, the patient was deemed in satisfactory condition to undergo the procedure. The anesthesia plan was to use monitored anesthesia care (MAC). Immediately prior to administration of medications, the patient was re-assessed for adequacy to receive sedatives. The heart rate, respiratory rate, oxygen saturations, blood pressure, adequacy of pulmonary ventilation, and response to care were monitored throughout the procedure. The physical status of the patient was re-assessed after the procedure. After obtaining informed consent, the endoscope was passed under direct vision. Throughout the procedure, the patient's blood pressure, pulse, and oxygen saturations were monitored continuously. The gastroscope was introduced through the mouth, and advanced to the third part of the duodenum. Small bowel enteroscopy was deemed necessary. The upper GI endoscopy was accomplished without difficulty. The patient tolerated the procedure well. Scope In: 4:43:10 PM Scope Out: 4:50:36 PM Total Procedure Duration Time 0 hours 7 minutes 26 seconds Findings: LA Grade D (one or more mucosal breaks involving at least 75% of esophageal circumference) esophagitis with bleeding was found 25 to 42 cm from the incisors. Biopsies were taken with a cold forceps for histology. Verification of patient identification for the specimen was done. Estimated blood loss was minimal. Two benign-appearing, intrinsic severe stenoses were found 36 to 40 cm from the incisors. The narrowest stenosis measured 4 mm (inner diameter) x 6 cm (in length). The stenoses were traversed. A guidewire was placed and the scope was withdrawn. Dilation was performed with a Savary dilator with no resistance at 57 Fr. The dilation site was examined and showed moderate improvement in luminal narrowing. Estimated blood loss was minimal. No gross lesions were noted in the entire examined stomach. Diffuse moderate inflammation characterized by erosions, erythema, friability and granularity was found in the entire duodenum. Impression: - LA Grade D erosive esophagitis with bleeding. Biopsied. - Benign-appearing esophageal stenoses. Dilated. - No gross lesions in the entire stomach. - Chronic duodenitis. Recommendation: - Return patient to [facility] for ongoing care. - Diet per speech therapy. - Continue present medications. - Await pathology results. - Repeat upper endoscopy in 1 month to evaluate the response to therapy. - Use Protonix (pantoprazole) 40 mg PO BID. Procedure Code(s): --- Professional --- 76507, Esophagogastroduodenoscopy, flexible, transoral; with insertion of guide wire followed by passage of dilator(s) through esophagus over guide wire 66861, 59,51, Small intestinal endoscopy, enteroscopy beyond second portion of duodenum, not including ileum; with biopsy, single or multiple CPT copyright 2021 [employer]. All rights reserved. The codes documented in this report are preliminary and upon product engineering manager review may be revised to meet current compliance requirements. David Ramos DO 07/04/2024 4:56:14 PM This report has been signed electronically. Number of Addenda: 0 Note Initiated On: 07/04/2024 4:32 PM
--- NOTE | 2024-07-04 17:00 | PCM.POST.ANE ---
Anesthesia: Postop Eval I Current Vital Signs Temperature: 97.1 F Pulse Rate: 87 Blood Pressure: 82/61 Respiratory Rate: 18 Pulse Ox: 93 Oxygen Delivery Method: Room Air Assessment Airway patent: Yes Spontaneous unlabored respirations: Yes Mental status: Asleep nausea: No Vomiting: No Anesthesia Complication: No Fluid Hydration Crystalloid volume administer (ml): 30 Total IV fluid infused: 30 Progress Note Anesthesia document: Postop Eval 1 completed: Yes
--- NOTE | 2024-07-04 17:07 | PN.HOSP_ITS ---
Reason for Visit Reason for Visit: Nausea and vomiting with dysuria Subjective Subjective Patient states he is feeling okay. Per discussion with vascular he does have a acute new spontaneous AV fistula in his left groin. Case was discussed by vascular with vascular at [facility] and they recommended procedure that vascular surgery here felt comfortable doing. Initially the intent was for transfer. Patient is amenable to this so he will be kept here. EGD was planned for today and pending due to history of dysphagia. Objective Data Objective Data Vital Signs: Vital Signs Temp Pulse Resp BP Pulse Ox O2 Del Method O2 Flow Rate 97.1 F L 82 16 93/59 L 90 Room Air 2 07/04/24 17:01 07/04/24 17:05 07/04/24 17:05 07/04/24 17:05 07/04/24 17:05 07/04/24 17:05 07/04/24 10:00 Oxygen Flow Rate (L/min) 2 Oxygen Delivery Method Room Air Weight: 85.8 kg Body Mass Index (BMI) 27.9 Intake & Output: Intake and Output for Last 24 Hours 07/02/24 07/03/24 07/04/24 23:59 23:59 23:59 Intake Total 425 / 425 580 / 580 0 / 0 Output Total 1325 / 1625 1455 / 1605 650 / 650 Balance -900 / -1200 -875 / -1025 -650 / -650 Lab / Micro Data 07/04/24 06:29 07/04/24 06:29 Labs: Laboratory Results - last 24 hr 07/01/24 09:42: Lactic Acid 2.4 H* 07/01/24 12:48: Lactic Acid 2.9 H* 07/04/24 06:29: WBC 6.1, RBC 4.20 L, Hgb 12.5 L, Hct 39.4 L, MCV 93.8, MCH 29.8, MCHC 31.7 L, RDW Std Deviation 52.1 H, RDW Coeff of Yanira 15.0 H, Plt Count 100 L, MPV 11.5, Sodium 139, Potassium 3.7, Chloride 106, Carbon Dioxide 20.8 L, Anion Gap 12, BUN 16, Creatinine 1.58 H, Estim Creat Clear Calc 44.52 L, Est GFR (MDRD) Non-Af 46 L, BUN/Creatinine Ratio 9.8 L, Glucose 112 H, Calcium 8.9 Micro: Microbiology 07/01/24 10:21 Blood Culture (Wb) - Anticubital Left Blood Culture - Preliminary No growth in 48 hours. 07/01/24 09:42 Blood Culture (Wb) - Anticubital Left Blood Culture - Preliminary No growth in 48 hours. 07/01/24 10:04 Urine Catheter - Maddox Urine Culture - Final Meth. resistant Staph. aureus 07/01/24 11:26 Mucosa - Nose SARS-CoV-2, Influenza & RSV (PCR) - Final Radiography Diagnostic Testing: Radiology Impression Abdomen/Pelvis CTA 07/03/24 13:40 IMPRESSION: 1. 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 There is moderate ill- defined thickening with enhancement and left inguinal lymphadenopathy, most compatible with infectious etiology. Additional considerations include iatrogenic etiology or secondary to recent procedure. 2. Layering hyperdensity within the right external iliac vein subjacent to the bypassed right common iliac artery, concerning for additional AVM, however this is difficult to assess without venous phase imaging. 3. Occlusion of the right femoral and deep femoral arteries with severe stenosis/occlusion of the trifurcation arteries. 4. Diffuse dilation with air-fluid levels throughout the small bowel. No pneumoperitoneum. If concern for bowel ischemia, recommend CT abdomen pelvis with venous phase imaging. Dr. Ramirez discussed these findings with Dr. Thompson, vascular surgeon, via telephone at 6:48 PM on 07/03/24. Reading Location: [facility] Physical Exam Const alert, oriented x3, no apparent distress and average body habitus; Negative for healthy appearing Constitutional Narrative: Frail-appearing, elderly, white male, sitting up in a chair at the bedside reclined, appears comfortable and nontoxic at this time, very friendly HEENT head/scalp atraumatic and moist oral mucous membranes HEENT Narrative: Dentition is poor, Mallampati is 2, no thrush Head and Scalp: normocephalic Resp normal respiratory effort, no retractions, no use of accessory muscles and clear to auscultation bilaterally Resp Narrative: Diffusely diminished but clear Auscultation: Negative for rales, rhonchi or wheezes Cardio regular rate, regular rhythm, S1 normal heart sound, S2 normal heart sound, no murmurs, no rub, no gallops and no clicks GI normal to inspection, nondistended, normoactive bowel sounds, soft to palpation and non-tender GI Narrative: Ostomy left lower quadrant with good output Extremity Extremity Narrative: Decreased pedal pulses, marked left lower extremity edema with normal size right lower extremity Neuro oriented x3, moves all extremities and no focal motor deficits Neuro Narrative: Able to move all extremities however difficult with left lower extremity due to in size Psych affect normal Psych Narrative: Extremely pleasant, eye contact is good and patient interacts appropriately Assessment & Plan Assessment/Plan (1) Femoral arteriovenous fistula, left: (2) Leukocytosis: (3) Acidosis, lactic: (4) Acute UTI: (5) Sepsis: PLAN: Plan Sepsis secondary to UTI in the setting of chronic urinary retention/aspiration pneumonia -Patient with lactic acidosis, leukocytosis, tachycardia and tachypnea -UA was suggestive infection -CT on presentation showed subtle groundglass opacity in the right lower lobe concerning for acute pneumonia as well as hydronephrosis and hydroureter of the right kidney suspect related to chronic reflux -Patient does have known aspiration issues -Patient on vancomycin and Zosyn at the time of admission he. -Urine culture was positive for MRSA -Will continue doxycycline initial plan was for 7-day course however being complicated will extend course to 14 days Dysphagia -EGD to be performed today. N.p.o. for now next-speech therapy is following FIOR on CKD stage IIIb -Baseline creatinine looks to be between 1.6 and 1.75 -Creatinine on presentation 2.13 -Resolving -Continue to monitor Hyperkalemia -Resolved Lactic acidosis -Resolved Severe left lower extremity swelling secondary to AV fistula -Patient follows at [facility] Main campus with previous bilateral aortofemoral bypass and AAA repair -No DVT found -vascular surgery is following and plans for intervention on of this week Acute on chronic debility -PT/OT following -Lives with son and daughter at baseline and uses a walker -May require SNF therapy at discharge will continue to follow DM-2 -Oral agents on hold -Continue SSI -Accu-Cheks as ordered -Cardiac/carb controlled diet History of stroke/essential hypertension/hyperlipidemia -Antihypertensives are currently on hold will continue to monitor -Continue home aspirin -Continue home statin Hypothyroidism -Continue home Synthroid History of rectal cancer -Status post chemo and radiation with resection of left colon -Has a permanent colostomy since 2020 -Outpatient follow-up with oncology Peripheral vascular disease -Management per vascular surgery as above GERD -Continue on PPI History of DVT -Continue home Eliquis DVT prophylaxis -Continue home Eliquis CODE STATUS -Full code Charges/Coding Visit Charges Inpatient E&M: 25911 Subs Hosp L2
--- NOTE | 2024-07-04 20:34 | PCM.POSTANE2 ---
Anesthesia Postop Eval I Sum Postop Eval Completion status Anesthesia document: Postop Eval 1 completed: Yes Anesthesia Postop Eval I Summary Anesthesia Postop Eval I Summary: Anesthesia Postop Eval I: Assessment Summary Airway patent Yes 07/04/24 17:01 [email or web address] Spontaneous unlabored Yes 07/04/24 17:01 [email or web address] respirations Mental status Asleep 07/04/24 17:01 [email or web address] nausea No 07/04/24 17:01 [email or web address] Vomiting No 07/04/24 17:01 [email or web address] Anesthesia Postop Eval I: Fluid Summary Crystalloid volume administer 30 07/04/24 17:01 [email or web address] (ml) Colloids volume administered ( ml) Blood Product volume administered (ml) Total IV fluid infused 30 07/04/24 17:01 [email or web address] Anesthesia Postop Eval I: Summary Notes Anesthesia Complication No 07/04/24 17:01 [email or web address] Anesthesia Complication Comment: Post-operative progress note Anesthesia: Postop Eval II Evaluation Mental status: Awake and Calm Pain Level: 0 nausea: No Vomiting: No Complications Anesthesia Complication: No
[2024-07-05] VITALS (7 sets, daily range): BP systolic 107–152; BP diastolic 55–81; PULSE 77–89; RESP 14–20; TEMP 36.1–36.6; O2SAT 92–94
[2024-07-05 04:58] LABS: Hematocrit 37.9 % (40-54); Hemoglobin 11.9 g/dL (13.0-16.5); Mean Corp Hgb Conc 31.4 g/dL (32-36); Mean Corpuscular Hgb 29.5 pg (27.0-32.0); Mean Corpuscular Volume 93.8 fL (80-94); Mean Platelet Vol. 11.8 fl (6.2-12.0); Platelet Count 106 K/mm3 (150-450); RBC Distribution Width SD 51.8 fl (35.1-43.9); Red Blood Count 4.04 M/mm3 (4.6-6.2); White Blood Count 5.4 K/mm3 (4.4-11.0)
[2024-07-05 05:24] LABS: AST(SGOT) 14 U/L (<=37); Alanine Aminotransfer ALT/SGPT 6 U/L (<=46); Albumin, Serum 3.3 g/dL (3.4-4.8); Alkaline Phosphatase 47 U/L (40-129); Anion Gap 10 (5-15); BUN 15 mg/dL (4-19); BUN/Creat Ratio 9.6 RATIO (10-20); Calcium,Total 8.9 mg/dL (7.6-11.0); Carbon Dioxide 22.2 mmol/L (21.0-32.0); Chloride 107 mmol/L (98-108); Creatinine, Serum 1.53 mg/dL (0.70-1.20); EST Glomerular Filtration Rate 47 (>60); Estimated Creatinine Clearance 45.98 ml/min (50-250); Globulin 3.2 g/dL (2.2-4.2); Glucose 88 mg/dL (70-99); Magnesium 1.9 mg/dL (1.5-2.2); Phosphorus 3.3 mg/dL (2.7-4.5); Potassium 3.5 mmol/L (3.3-5.1); Protein, Total 6.5 g/dL (5.9-8.4); Sodium Level 140 mmol/L (133-145)
[2024-07-05] MEDS: Ipratropium/Albuterol Sulfate 3 ML AMPUL.NEB INHALATION ×2 (06:58→19:25)
[2024-07-05] MEDS: Budesonide Respules 0.5 MG/2 ML AMPUL.NEB. INHALATION ×2 (06:58→19:25)
--- NOTE | 2024-07-05 08:31 | PCM.PN.HOSP ---
Reason for Visit Reason for Visit: Nausea and vomiting with dysuria Subjective Subjective Patient frustrated that he cannot eat. Had an episode this morning where he was coughing after he was taking his pills and eating breakfast. Speech therapy has been reconsulted to evaluate him again despite his cookie fall yesterday. There is concern he may be aspirating. Objective Data Objective Data Vital Signs: Vital Signs Temp Pulse Resp BP Pulse Ox O2 Del Method O2 Flow Rate 98 F 88 20 H 107/55 L 93 Room Air 2 07/05/24 02:01 07/05/24 06:58 07/05/24 06:58 07/05/24 02:01 07/05/24 06:58 07/05/24 08:10 07/04/24 10:00 Oxygen Flow Rate (L/min) 2 Oxygen Delivery Method Room Air Weight: 85.8 kg Body Mass Index (BMI) 27.9 Intake & Output: Intake and Output for Last 24 Hours 07/03/24 07/04/24 07/05/24 23:59 23:59 23:59 Intake Total 580 / 580 240 / 240 120 / 120 Output Total 1455 / 1605 855 / 855 455 / 455 Balance -875 / -1025 -615 / -615 -335 / -335 Lab / Micro Data 07/05/24 04:28 07/05/24 04:28 Labs: Laboratory Results - last 24 hr 07/05/24 04:28: WBC 5.4, RBC 4.04 L, Hgb 11.9 L, Hct 37.9 L, MCV 93.8, MCH 29.5, MCHC 31.4 L, RDW Std Deviation 51.8 H, RDW Coeff of Yanira 15.0 H, Plt Count 106 L, MPV 11.8, Sodium 140, Potassium 3.5, Chloride 107, Carbon Dioxide 22.2, Anion Gap 10, BUN 15, Creatinine 1.53 H, Estim Creat Clear Calc 45.98 L, Est GFR (MDRD) Non-Af 47 L, BUN/Creatinine Ratio 9.6 L, Glucose 88, Calcium 8.9, Phosphorus 3.3, Magnesium 1.9, Total Bilirubin 0.30, AST 14, ALT 6, Alkaline Phosphatase 47, Total Protein 6.5, Albumin 3.3 L, Globulin 3.2, Albumin/Globulin Ratio 1.0 Micro: Microbiology 07/01/24 10:21 Blood Culture (Wb) - Anticubital Left Blood Culture - Preliminary No growth in 48 hours. 07/01/24 09:42 Blood Culture (Wb) - Anticubital Left Blood Culture - Preliminary No growth in 48 hours. 07/01/24 10:04 Urine Catheter - Maddox Urine Culture - Final Meth. resistant Staph. aureus 07/01/24 11:26 Mucosa - Nose SARS-CoV-2, Influenza & RSV (PCR) - Final Physical Exam Const alert, oriented x3, no apparent distress and average body habitus; Negative for healthy appearing Constitutional Narrative: Frail-appearing, elderly, white male, sitting up in a chair at the bedside reclined, appears comfortable and nontoxic at this time, very friendly General Appearance: cooperative and comfortable HEENT normocephalic and head/scalp atraumatic HEENT Narrative: Dentition is extremely poor Resp normal respiratory effort, no retractions, no use of accessory muscles and clear to auscultation bilaterally Resp Narrative: Diffusely diminished but clear Auscultation: Negative for rales, rhonchi or wheezes Cardio regular rate, regular rhythm, S1 normal heart sound, S2 normal heart sound, no murmurs, no rub, no gallops, no clicks and peripheral pulses 2+ throughout Cardio Narrative: Tachycardic, regular rhythm. GI normal to inspection, nondistended, normoactive bowel sounds, soft to palpation and non-tender GI Narrative: Ostomy left lower quadrant with good output Extremity Extremity Narrative: Decreased pedal pulses, marked left lower extremity edema with normal size right lower extremity Neuro no focal motor deficits Neuro Narrative: Able to move all extremities however difficult with left lower extremity due to in size Speech: speech normal Psych mental status grossly normal and affect normal Psych Narrative: Extremely pleasant, eye contact is good and patient interacts appropriately Assessment & Plan Assessment/Plan (1) Femoral arteriovenous fistula, left: (2) Leukocytosis: (3) Acidosis, lactic: (4) Acute UTI: (5) Sepsis: PLAN: Plan Sepsis secondary to UTI in the setting of chronic urinary retention/aspiration pneumonia -Patient with lactic acidosis, leukocytosis, tachycardia and tachypnea -CT on presentation showed subtle ground glass opacity in the right lower lobe concerning for acute pneumonia as well as hydronephrosis and hydroureter of the right kidney suspect related to chronic reflux -Patient does have known aspiration issues -Urine culture was positive for MRSA -After review of cultures we will discontinue doxycycline and plan on linezolid to complete course. Will treat as complicated UTI given presentation and ongoing issues and the fact that he has a chronic indwelling Maddox Dysphagia -EGD done on 07/04/2024 showed grade D erosive esophagitis that was bleeding, benign-appearing esophageal stenosis that was dilated and chronic duodenitis -Continue speech therapy with diet modifications as recommended Erosive esophagitis/esophageal stenosis -Biopsies are pending next-repeat EGD in 1 month -Protonix 40 mg twice daily recommended at discharge FIOR on CKD stage IIIb -Baseline creatinine looks to be between 1.6 and 1.75 -Creatinine on presentation 2.13 -Serum creatinine currently stable in the 1.5-1.6 region communal myomata 1 Severe left lower extremity swelling secondary to AV fistula -Patient follows at [facility] with previous bilateral aortofemoral bypass and AAA repair -No DVT found -vascular surgery is following and plans for intervention on of this week Acute on chronic debility -PT/OT following -Lives with son and daughter at baseline and uses a walker -May require SNF therapy at discharge will continue to follow DM-2 -Oral agents on hold -Continue SSI -Accu-Cheks as ordered -Cardiac/carb controlled diet History of stroke/essential hypertension/hyperlipidemia -Antihypertensives are currently on hold will continue to monitor -Continue home aspirin -Continue home statin Hypothyroidism -Continue home Synthroid History of rectal cancer -Status post chemo and radiation with resection of left colon -Has a permanent colostomy since 2020 -Outpatient follow-up with oncology Peripheral vascular disease -Management per vascular surgery as above GERD -Continue on PPI History of DVT -Eliquis on hold for procedure tomorrow DVT prophylaxis -Eliquis on hold for procedure tomorrow CODE STATUS -Full code Charges/Coding Visit Charges Inpatient E&M: 89081 Subs Hosp L2
--- NOTE | 2024-07-05 09:18 | CASEMGMT ---
Discharge Planning Updates sent to [facility]. Nadine Betts DC Planning Asst.
[2024-07-05] MEDS: 0.9% Saline Lock 10 ML Syringe IV ×2 (10:47→22:30)
[2024-07-05] MEDS: Linezolid 600 MG 600 MG/300 ML BAG 200 MG IV ×2 (10:49→22:31)
--- NOTE | 2024-07-05 12:00 | PCM.PN.SRG ---
Subjective Subjective I saw Mr. Nicole up to the bedside chair this morning. I advised that Dr. Thompson and Dr. Taylor from [facility] had discussed his case with ultimate recommendation being endovascular intervention performed here to address the fistula itself now to both improve his symptoms and also likely allow for better imaging/evaluation going forward and then plan for further workup on an outpatient basis regarding the cause of the fistula. He is agreeable to this plan, pleased he will not have to transfer. I had also discussed this with his daughter Shaunna over the phone yesterday evening patient had been down for endoscopy). We discussed the recommended procedure details as well. Objective Data Objective Data Vital Signs: Vital Signs Temp Pulse Resp BP Pulse Ox O2 Del Method O2 Flow Rate 97.2 F L 84 18 143/75 H 93 Room Air 2 07/05/24 10:40 07/05/24 10:40 07/05/24 10:40 07/05/24 10:40 07/05/24 10:40 07/05/24 10:40 07/04/24 10:00 Oxygen Flow Rate (L/min) 2 Oxygen Delivery Method Room Air Weight: 189 lb 2.506 oz Body Mass Index (BMI) 27.9 Intake & Output: Intake and Output for Last 24 Hours 07/03/24 07/04/24 07/05/24 23:59 23:59 23:59 Intake Total 580 / 580 240 / 240 120 / 120 Output Total 1455 / 1605 855 / 855 455 / 455 Balance -875 / -1025 -615 / -615 -335 / -335 Lab / Micro Data 07/05/24 04:28 07/05/24 04:28 Labs: Laboratory Results - last 24 hr 07/05/24 04:28: WBC 5.4, RBC 4.04 L, Hgb 11.9 L, Hct 37.9 L, MCV 93.8, MCH 29.5, MCHC 31.4 L, RDW Std Deviation 51.8 H, RDW Coeff of Yanira 15.0 H, Plt Count 106 L, MPV 11.8, Sodium 140, Potassium 3.5, Chloride 107, Carbon Dioxide 22.2, Anion Gap 10, BUN 15, Creatinine 1.53 H, Estim Creat Clear Calc 45.98 L, Est GFR (MDRD) Non-Af 47 L, BUN/Creatinine Ratio 9.6 L, Glucose 88, Calcium 8.9, Phosphorus 3.3, Magnesium 1.9, Total Bilirubin 0.30, AST 14, ALT 6, Alkaline Phosphatase 47, Total Protein 6.5, Albumin 3.3 L, Globulin 3.2, Albumin/Globulin Ratio 1.0 Micro: Microbiology 07/01/24 10:21 Blood Culture (Wb) - Anticubital Left Blood Culture - Preliminary No growth in 48 hours. 07/01/24 09:42 Blood Culture (Wb) - Anticubital Left Blood Culture - Preliminary No growth in 48 hours. 07/01/24 10:04 Urine Catheter - Maddox Urine Culture - Final Meth. resistant Staph. aureus 07/01/24 11:26 Mucosa - Nose SARS-CoV-2, Influenza & RSV (PCR) - Final Physical Exam Const alert and oriented x3 General Appearance: cooperative HEENT external ears normal and external nose normal Head and Scalp: normocephalic and atraumatic Nose: external nose normal Eyes EOMs intact bilaterally General Eye: normal appearance of both eyes Neck General: normal visual inspection and trachea midline Resp normal respiratory effort, normal air movement, no retractions and no use of accessory muscles Effort and Inspection: able to speak in complete sentences; Negative for labored, grunting or stridor Cardio regular rate and regular rhythm GI GI Narrative: colostomy Extremity Extremity Narrative: Significant diffuse 3+ edema of the LLE, generally soft to palpation; no focal areas of erythema/excess warmth/fluctuance/induration Skin no rashes or lesions noted Trauma: no lacerations or abrasions Neuro oriented x3, moves all extremities and no focal motor deficits Speech: speech normal Psych mental status grossly normal Attitude: calm Assessment & Plan Assessment/Plan (1) Peripheral arterial disease with history of revascularization: (2) Femoral arteriovenous fistula, left: PLAN: Plan Plan is now for LLE angiogram via upper extremity access for likely covered stent placement to address the AV fistula; scheduled for laborer plumbing with MAC tomorrow at 1000. NPO after midnight. Hold Eliquis for procedure. Discussed procedure with patient and his daughter Shaunna via phone; both had all questions/concerns addressed to their apparent satisfaction and were agreeable to proceed. Charges/Coding Multi Select Codes Visit Charges Visit Charges: 93176 Subs Hosp L1
--- NOTE | 2024-07-05 13:53 | CASEMGMT ---
Discharge Planning Teddy notified that pt will discharge to a snf. Nadine Betts DC Planning Asst.
--- NOTE | 2024-07-05 20:23 | PN_ITS ---
Progress Note Patient underwent repeat EGD yesterday. He is frustrated that he cannot eat real food. Physical Exam Const alert and oriented x3 General Appearance: cooperative HEENT external ears normal and external nose normal Head and Scalp: normocephalic and atraumatic Nose: external nose normal Eyes EOMs intact bilaterally General Eye: normal appearance of both eyes Neck General: normal visual inspection and trachea midline Resp normal respiratory effort, normal air movement, no retractions and no use of accessory muscles Effort and Inspection: able to speak in complete sentences; Negative for labored, grunting or stridor Cardio regular rate and regular rhythm GI GI Narrative: colostomy Extremity Extremity Narrative: Significant diffuse 3+ edema of the LLE, generally soft to palpation; no focal areas of erythema/excess warmth/fluctuance/induration Skin no rashes or lesions noted Trauma: no lacerations or abrasions Neuro oriented x3, moves all extremities and no focal motor deficits Speech: speech normal Psych mental status grossly normal Attitude: calm Assessment & Plan Assessment/Plan (1) Encephalopathy acute: (2) Acute UTI: PLAN: Plan 74 yo with h/o colon cancer s/p resection with end ileostomy with possible aspiration PNA and esophageal dysphagia Dysphagia * Speech therapy on board. * He had EGD which showed evidence of eosinophilic esophagitis and benign appearing esophageal stenosis which was dilated, as well as hiatal hernia. * Patient has very poor motility of his esophagus likely contributing to his severe erosive esophagitis and inability to clear acid from his esophagus and/or food from his esophagus * Awaiting repeat evaluation by speech therapy * on IV PPI History of colon cancer: has ileostomy in place. Visit Charges Inpatient E&M: 42040 [facility] Hosp L3
[2024-07-05] MEDS: Atorvastatin Calcium 40 MG Tablet PO (22:14)
[2024-07-05] MEDS: Pantoprazole Sodium 40 MG Tablet PO (22:14)
[2024-07-06] VITALS (21 sets, daily range): BP systolic 113–180; BP diastolic 64–94; PULSE 65–96; RESP 14–24; TEMP 36.1–36.8; O2SAT 91–100; BMI 27.9
[2024-07-06 04:16] LABS: Absolute Lymphocyte Count 1.21 X10^3/uL (0.83-4.51); Basophil# 0.04 X10^3/uL; Basophil% 0.8 % (0-1); Eosinophil# 0.22 X10^3/uL; Eosinophils% 4.4 % (0-5); Hematocrit 39.3 % (40-54); Hemoglobin 12.7 g/dL (13.0-16.5); Lymphocyte # 1.21 X10^3/ul (0.83-4.51); Lymphocyte % 24.4 % (19-41); Mean Corp Hgb Conc 32.3 g/dL (32-36); Mean Corpuscular Volume 92.9 fL (80-94); Mean Platelet Vol. 11.7 fl (6.2-12.0); Monocyte# 0.48 X10^3/uL; Monocyte% 9.7 % (0-10); NRBC Flagged by Analyzer 0 % (0-5); Neutrophil # 2.97 X10^3/uL (2.7-7.7); Neutrophil % 60.1 % (47-70); Platelet Count 115 K/mm3 (150-450); RBC Distribution Width SD 51.1 fl (35.1-43.9); Red Blood Count 4.23 M/mm3 (4.6-6.2)
[2024-07-06 06:11] LABS: Anion Gap 13 (5-15); BUN 13 mg/dL (4-19); BUN/Creat Ratio 9.1 RATIO (10-20); Calcium,Total 9.1 mg/dL (7.6-11.0); Carbon Dioxide 20.8 mmol/L (21.0-32.0); Chloride 106 mmol/L (98-108); Creatinine, Serum 1.44 mg/dL (0.70-1.20); EST Glomerular Filtration Rate 51 (>60); Estimated Creatinine Clearance 48.85 ml/min (50-250); Glucose 111 mg/dL (70-99); Potassium 3.5 mmol/L (3.3-5.1); Sodium Level 139 mmol/L (133-145)
[2024-07-06] MEDS: Budesonide Respules 0.5 MG/2 ML AMPUL.NEB. INHALATION ×2 (07:05→19:20)
[2024-07-06] MEDS: Ipratropium/Albuterol Sulfate 3 ML AMPUL.NEB INHALATION ×2 (07:05→19:20)
--- NOTE | 2024-07-06 07:13 | PCM.PN.HOSP ---
Reason for Visit Reason for Visit: Nausea/vomiting/dysuria Subjective Subjective OR today to address the fistula in his left groin. I did discuss case with Dr. Thompson afterwards and he states it is complex and may need more intervention but not acutely while he is hospitalized and okay from his standpoint to discharge to SNF when accepted. Patient a bit confused after the case. Objective Data Objective Data Vital Signs: Vital Signs Temp Pulse Resp BP Pulse Ox O2 Del Method O2 Flow Rate 97.3 F L 83 20 H 147/70 H 95 Room Air 2 07/06/24 06:41 07/06/24 07:06 07/06/24 07:06 07/06/24 06:41 07/06/24 07:06 07/06/24 07:06 07/04/24 10:00 Oxygen Flow Rate (L/min) 2 Oxygen Delivery Method Room Air Weight: 85.8 kg Body Mass Index (BMI) 27.9 Intake & Output: Intake and Output for Last 24 Hours 07/04/24 07/05/24 07/06/24 23:59 23:59 23:59 Intake Total 240 / 240 700 / 700 300 / 300 Output Total 855 / 855 1055 / 1055 250 / 250 Balance -615 / -615 -355 / -355 50 / 50 Lab / Micro Data 07/06/24 03:43 07/06/24 03:43 Labs: Laboratory Results - last 24 hr 07/06/24 03:43: WBC 5.0, RBC 4.23 L, Hgb 12.7 L, Hct 39.3 L, MCV 92.9, MCH 30.0, MCHC 32.3, RDW Std Deviation 51.1 H, RDW Coeff of Yanira 15.0 H, Plt Count 115 L, MPV 11.7, Immature Gran % (Auto) 0.600, Neut % (Auto) 60.1, Lymph % (Auto) 24.4, [place] % (Auto) 9.7, Eos % (Auto) 4.4, Baso % (Auto) 0.8, Absolute Neuts (auto) 3.0, Absolute Lymphs (auto) 1.21, Nucleated RBC % 0, Sodium 139, Potassium 3.5, Chloride 106, Carbon Dioxide 20.8 L, Anion Gap 13, BUN 13, Creatinine 1.44 H, Estim Creat Clear Calc 48.85 L, Est GFR (MDRD) Non-Af 51 L, BUN/Creatinine Ratio 9.1 L, Glucose 111 H, Calcium 9.1 Micro: Microbiology 07/01/24 10:21 Blood Culture (Wb) - Anticubital Left Blood Culture - Preliminary No growth in 48 hours. 07/01/24 09:42 Blood Culture (Wb) - Anticubital Left Blood Culture - Preliminary No growth in 48 hours. 07/01/24 10:04 Urine Catheter - Maddox Urine Culture - Final Meth. resistant Staph. aureus 07/01/24 11:26 Mucosa - Nose SARS-CoV-2, Influenza & RSV (PCR) - Final Physical Exam Const alert, oriented x3, no apparent distress and average body habitus; Negative for healthy appearing Constitutional Narrative: Frail-appearing, elderly, white male, lying in bed just returned from procedure, family at bedside, appears comfortable, nontoxic, mildly confused General Appearance: cooperative and comfortable Orientation / Consciousness: confused HEENT normocephalic, head/scalp atraumatic and moist oral mucous membranes HEENT Narrative: Dentition is poor, Mallampati is 1-2, no thrush Resp normal respiratory effort, no retractions, no use of accessory muscles and clear to auscultation bilaterally Resp Narrative: Diffusely diminished but clear Auscultation: Negative for rales, rhonchi or wheezes Cardio regular rate, regular rhythm, S1 normal heart sound, S2 normal heart sound, no murmurs, no rub, no gallops and no clicks GI normal to inspection, nondistended, normoactive bowel sounds, soft to palpation and non-tender GI Narrative: Ostomy left lower quadrant with good output Extremity Extremity Narrative: Decreased pedal pulses, marked left lower extremity edema with normal size right lower extremity, left lower extremity is wrapped in a Bautista bandage postoperatively Neuro moves all extremities and no focal motor deficits Neuro Narrative: Able to move all extremities however difficult with left lower extremity due to in size Sensorium / Orientation: awake, alert and oriented to person Speech: speech normal Psych mental status grossly normal and affect normal Psych Narrative: Extremely pleasant Assessment & Plan Assessment/Plan (1) Femoral arteriovenous fistula, left: (2) Leukocytosis: (3) Acidosis, lactic: (4) Acute UTI: (5) Sepsis: PLAN: Plan Sepsis secondary to UTI in the setting of chronic urinary retention/aspiration pneumonia -Patient with lactic acidosis, leukocytosis, tachycardia and tachypnea -CT on presentation showed subtle ground glass opacity in the right lower lobe concerning for acute pneumonia as well as hydronephrosis and hydroureter of the right kidney suspect related to chronic reflux -Patient does have known aspiration issues -Urine culture was positive for MRSA -Continue linezolid to complete antibiotic course given his chronic Maddox and the fact that this is a complicated UTI with MRSA Dysphagia -EGD done on 07/04/2024 showed grade D erosive esophagitis that was bleeding, benign-appearing esophageal stenosis that was dilated and chronic duodenitis -Continue speech therapy with diet modifications as recommended Erosive esophagitis/esophageal stenosis -Biopsies are pending -repeat EGD in 1 month -Protonix 40 mg twice daily recommended at discharge FIOR on CKD stage IIIb -Baseline creatinine looks to be between 1.6 and 1.75 -Creatinine on presentation 2.13 -Currently 1.44 and stable Severe left lower extremity swelling secondary to AV fistula -Patient follows at [facility] with previous bilateral aortofemoral bypass and AAA repair -No DVT found -Postop day 0 from intervention to the left groin--may need staged procedure per Dr. Thompson but will not to remain hospitalized Acute on chronic debility -PT/OT following -Lives with son and daughter at baseline and uses a walker -Plan is for discharge to [facility] facility possibly tomorrow if stable DM-2 -Oral agents on hold -Continue SSI -Accu-Cheks as ordered -Cardiac/carb controlled diet History of stroke/essential hypertension/hyperlipidemia -Antihypertensives are currently on hold will continue to monitor -Continue home aspirin -Continue home statin Hypothyroidism -Continue home Synthroid History of rectal cancer -Status post chemo and radiation with resection of left colon -Has a permanent colostomy since 2020 -Outpatient follow-up with oncology Peripheral vascular disease -Management per vascular surgery as above GERD -Continue on PPI History of DVT -Restart Eliquis tomorrow if okay with vascular surgery DVT prophylaxis -Will restart Eliquis probably tomorrow if okay with vascular surgery CODE STATUS -Full code Charges/Coding Visit Charges Inpatient E&M: 27948 Subs Hosp L2
[2024-07-06] MEDS: Pantoprazole Sodium 40 MG Tablet PO ×2 (08:36→21:47)
[2024-07-06] MEDS: Aspirin E.C. 81 MG Tablet PO (08:36)
[2024-07-06] MEDS: 0.9% Saline Lock 10 ML Syringe IV (08:37)
[2024-07-06] MEDS: Linezolid 600 MG 600 MG/300 ML BAG 200 MG IV (08:37)
[2024-07-06] MEDS: 0.9% Normal Saline (100mL Bag) 100 ML 15 ML IV (08:37)
--- NOTE | 2024-07-06 10:15 | PCM.PRE.AN2 ---
ASA Classification* ASA Classification ASA Classification: 3 Assessment & Plan Anesthesia* Anesthesia Assessment Anesthesia Assessment: Discussed sedation and/or anesthesia options, risks, benefits, and alternatives with patient/parents/legal guardian/POA. Questions invited. The patient/parents/legal guardian/POA seems to understand and agrees to proceed with anesthesia plan. Reviewed the physical assessment, medical history, allergy history and patient home medications list prior to surgery/procedure/anesthetic and documented any changes. Performed airway and anesthesia risk assessments. Anesthesia Type Anesthesia Type: MAC History Source History Obtained from:: Patient and Chart Anesthesia Focused Assessment* Temperature: 97.4 F Pulse Rate: 81 Blood Pressure: 124/70 Respiratory Rate: 18 Pulse Ox: 91 Oxygen Delivery Method: Room Air Oxygen Flow Rate (L/min): 2 Airway Assessment Mouth opens: 2 cm Mallampati Score: IV Teeth Condition: Missing (Patient has several missing teeth. Current teeth are all tight.) Neck Range of motion (ROM): Limited ROM Focused Labs Anesthesia Preop lab: CBC WBC 5.0 K/mm3 (4.4-11.0) 07/06/24 03:43 07/06/24 RBC 4.23 M/mm3 (4.6-6.2) L 07/06/24 03:43 07/06/24 Hgb 12.7 g/dL (13.0-16.5) L 07/06/24 03:43 07/06/24 Hct 39.3 % (40-54) L 07/06/24 03:43 07/06/24 Plt Count 115 K/mm3 (150-450) L 07/06/24 03:43 07/06/24 CHEMISTRY Potassium 3.5 mmol/L (3.3-5.1) 07/06/24 03:43 07/06/24 Sodium 139 mmol/L (133-145) 07/06/24 03:43 07/06/24 Magnesium 1.9 mg/dL (1.5-2.2) 07/05/24 04:28 07/05/24 Phosphorus 3.3 mg/dL (2.7-4.5) 07/05/24 04:28 07/05/24 BUN 13 mg/dL (4-19) 07/06/24 03:43 07/06/24 Creatinine 1.44 mg/dL (0.70-1.20) H 07/06/24 03:43 07/06/24 Glucose 111 mg/dL (70-99) H 07/06/24 03:43 07/06/24 POC Glucose 202 mg/dL (74-106) H 02/23/24 11:30 02/23/24 TSH 0.599 uIU/mL (0.358-3.740) 01/17/24 06:50 01/17/24 COAG PT 19.3 SECONDS (11.7-14.9) H 01/10/24 17:00 01/10/24 Pre-Assessment Diagnosis/Proposed Procedure Planned Operative Procedure(s): Left lower angiogram with possible femoral stent. Anesthesia History Anesthesia History - manager corporate communications: Anesthesia History - manager corporate communications Hx Hospitalization Yes: UTI- [facility] 02/22/24 09:14 Any Problems With Anesthesia No 07/04/24 15:23 Cholinesterase deficiency No 07/04/24 15:23 You/Your Family Experience No 07/04/24 15:23 fever (hyperthermia) with Relationship Recent Exposure to Contagious No 07/04/24 15:23 Disease Does patient have nerve No 07/04/24 15:23 stimulator Patient instructed to have device shut off --Does patient have Pacemaker No 07/04/24 15:22 or ICD? When Was Last Pacemaker Check QUESTION #4 FULL TEXT: You/Your Family Experience fever (hyperthermia) with Anesthesia Last Oral Intake Last Oral intake: Last Oral Intake NPO since 0000 07/06/24 10:01 Meds taken in AM with sips of Yes 07/06/24 10:01 water? Meds patient instructed to take am of surgery Any additional information?: Yes NPO since: 00:00 PONV PONV - manager corporate communications: PONV - manager corporate communications Female HX of Motion Sickness HX of N/V After Surgery Non-Smoker Duration of Surgery greater than 60 minutes Number of Risk Factors PONV Score Height & Weight Height & Weight: Anesthesia: Height & Weight Height 5 ft 9 in 07/06/24 10:01 Weight: 85.8 kg 07/06/24 10:01 Body Mass Index (BMI) 27.9 07/06/24 10:01 Respiratory Assessment Respiratory Assessment - manager corporate communications: Respiratory Tract Infection Hx - manager corporate communications Hx Respiratory Tract Infection No 07/04/24 15:23 STOP Sleep Apnea STOP Sleep Apnea - manager corporate communications: STOP Sleep Apnea - manager corporate communications Hx Hypertension No 07/02/24 13:20 Hx Sleep Apnea No 07/01/24 13:07 CPAP BIPAP Do you snore loudly (louder No 07/01/24 13:07 than talking or can be heard Do you often feel tired/ No 07/01/24 13:07 fatigued/ sleepy during daytime? Has anyone observed you stop No 07/01/24 13:07 breathing during sleep? STOP Results Negative 07/04/24 16:58 QUESTION #5 FULL TEXT : Do you snore loudly (louder than talking or can be heard through closed doors)? Tobacco Use History Tobacco Use History - manager corporate communications: Tobacco Use History - manager corporate communications Tobacco Use Smoking Status Former smoker 07/01/24 13:07 Hx Tobacco Use No 07/01/24 13:07 Years Smoking Packs Smoked per Day Smoking Cessation Date was Yes - quit smoking within 15 07/01/24 13:07 within the last 15 years years Hx Smoking Cessation Date Hx Smoking Cessation Counseling Hematologic Medial History Hematologic Hx - manager corporate communications: Hematologic Medical Hx - medical screener Hx of Blood Transfusion No 07/01/24 13:07 Hx of Transfusion in last 3 No 07/01/24 13:07 Months Date of Last Transfusion (if within last 3 months) Ever experience any problems No 07/01/24 13:07 with transfusion(s)? Specify any problems Hx of Preganancy in last 3 N/A 07/01/24 13:07 Months Nurse Filling Out Transfusion [id number] 07/01/24 13:07 & Questions: Date: 07/01/24 07/01/24 13:07 Time: 13:20 07/01/24 13:07 Patient unable to answer at this time (ie. confused, unrespo /Reproduction History /Reproductive History - manager corporate communications: /Reproductive Hx- manager corporate communications Hx Now No 07/04/24 15:23 Gestational Age (in weeks): EDC: Hx Hx Para Hx Section SAB No 07/04/24 15:23 Active Medications Active Medications: Current Medications Generic Name Dose Route Start Last Admin Trade Name Freq PRN Reason Stop Dose Admin Acetaminophen 650 mg 07/01/24 13:08 Acetaminophen 325 Mg Tablet PO Q6H PRN PRN Pain 1-10 Or Fever>100.7 Albuterol Sulfate 2.5 mg 07/01/24 13:16 Albuterol 2.5 Mg/3 Ml Vial.Neb. INHALATION Q4H PRN wheezing Albuterol/Ipratropium 3 ml 07/01/24 13:15 07/06/24 07:05 Ipratropium/Albuterol Sulfate 3 Ml Ampul.Neb INHALATION 3 ml Q6HWA.RT CJ Administration Aspirin 81 mg 07/02/24 08:00 07/06/24 08:36 Aspirin E.C. 81 Mg Tablet PO 81 mg BREAKFAST CJ Administration Atorvastatin Calcium 40 mg 07/01/24 22:00 07/05/24 22:14 Atorvastatin Calcium 40 Mg Tablet PO 40 mg QHS CJ Administration Budesonide 0.5 mg 07/01/24 13:15 07/06/24 07:05 Budesonide Respules 0.5 Mg/2 Ml Ampul.Neb. INHALATION 0.5 mg Q12H.RT CJ Administration Finasteride 5 mg 07/02/24 10:00 07/05/24 09:22 Finasteride 5 Mg Tablet PO Not Given DAILY CJ Sodium Chloride 100 mls @ 15 mls/hr 07/01/24 13:38 07/06/24 09:40 IV 0 mls/hr .Q6H40M PRN Infusion Saline Flush Sodium Chloride 100 mls @ 15 mls/hr 07/01/24 13:38 IV .Q6H40M PRN Additional IVPB Infusion Linezolid 600 mg in 300 mls @ 200 mls/hr 07/05/24 10:00 07/06/24 09:40 Zyvox 600mg IV 0 mls/hr Q12 CJ Infusion Icosapent Ethyl 2 gm 07/01/24 22:00 07/05/24 22:16 Icosapent Ethyl 1 Gm Capsule PO Not Given BID CJ Levothyroxine Sodium 150 mcg 07/02/24 06:00 07/06/24 05:29 Levothyroxine 150 Mcg Tablet PO Not Given DAILY@0600 CJ Melatonin 3 mg 07/01/24 13:08 Melatonin 3 Mg Tablet PO QHS PRN PRN INSOMNIA Nystatin 1 applic 07/01/24 22:30 07/05/24 14:00 Nystatin Powder 15gm Bottle TOPICAL Not Given TID [facility] Protocol Ondansetron HCl 4 mg 07/01/24 13:08 07/01/24 13:50 Ondansetron 4 Mg/2 Ml Vial IV 4 mg Q8H PRN PRN Administration NAUSEA/VOMITING Pantoprazole Sodium 40 mg 07/01/24 22:00 07/06/24 08:36 Pantoprazole Sodium 40 Mg Tablet PO 40 mg BID CJ Administration Sodium Chloride 10 - 40 ml 07/01/24 13:22 07/06/24 08:37 0.9% Saline Lock 10 Ml Syringe IV 10 ml UD PRN Administration SALINE FLUSH Sodium Chloride 10 - 40 ml 07/01/24 13:38 0.9% Saline Lock 10 Ml Syringe IV UD PRN SALINE FLUSH [facility] Medical History (Updated 07/04/24 @ 22:[address] Ginger Espitia, DO) MRSA (methicillin resistant staph aureus) culture positive Wears glasses Low iron Stroke/cerebrovascular accident Former smoker Colostomy in place Family history of abdominal aortic aneurysm repair DVT (deep venous thrombosis) Enteritis Cholelithiasis Acidosis, lactic Encephalopathy due to infection Acute hypoxemic respiratory failure Complicated urinary tract infection Severe sepsis with acute organ dysfunction Aspiration into respiratory tract FIOR (acute kidney injury) Colon cancer Home Medications ?Medication ?Instructions ?Recorded ?Last Taken ?Type finasteride 5 mg tablet 5 mg PO DAILY prostate 06/22/23 06/30/24 History ferrous sulfate 325 mg (65 mg 325 mg PO BIDCM iron #1 TAB 06/26/23 01/09/24 Rx iron) tablet levothyroxine 100 mcg tablet 100 mcg PO DAILY@0600 #30 tabs 01/15/24 06/30/24 Rx pantoprazole 40 mg tablet,delayed 40 mg PO BID #60 tabs 01/15/24 06/30/24 Rx release albuterol sulfate 90 mcg/actuation 1 - 2 puff inhalation 4X/DAY PRN 02/22/24 Unknown History aerosol inhaler wheezing apixaban 5 mg tablet (Eliquis) 5 mg PO BID 02/22/24 06/30/24 History amlodipine 5 mg tablet 5 mg PO DAILY 07/01/24 06/30/24 History aspirin 81 mg tablet,delayed 81 mg PO DAILY 07/01/24 06/30/24 History release ergocalciferol (vitamin D2) 1,250 1,250 mcg PO MO 07/01/24 06/26/24 History mcg (50,000 unit) capsule fluticasone fur. 100 mcg-umeclid 1 ea inhalation DAILY 07/01/24 06/30/24 History 62.5 mcg-vilant 25 mcg inhalat.powder (Trelegy Ellipta) icosapent ethyl 1 gram capsule 2 g PO BID 07/01/24 06/30/24 History levothyroxine 150 mcg tablet 150 mcg PO DAILY 07/01/24 06/30/24 History linagliptin 5 mg tablet (Tradjenta) 5 mg PO DAILY 07/01/24 06/30/24 History rosuvastatin 20 mg tablet 20 mg PO QHS 07/01/24 06/30/24 History Allergy/AdvReac Type Severity Reaction Status Date / Time No Known Allergies Allergy Verified 07/01/24 13:29 Surgical History (Updated 07/06/24 @ 10:[address] Brandon David MD) H/O esophagogastroduodenoscopy Hx of abdominal surgery Hx of endarterectomy (~2020) Social History Smoking Status: Former smoker Tobacco: How many years used: 50 Review of Systems (Anesthesia) ROS Narrative System reviewed and no additional complaints, except as documented.
--- NOTE | 2024-07-06 10:22 | WOUNDNOTE ---
Pt currently off unit for vascular procedure.
--- NOTE | 2024-07-06 10:52 | ANES.CONFIRM ---
Anesthesia: Confirm Documents Multiple Procedures on Account (2) Confirmed Documents: Yes
--- NOTE | 2024-07-06 13:02 | ANES.CONF2 ---
Anesthesia: Confirm Documents Multiple Procedures on Account (3) Confirmed Documents: Yes
[2024-07-06 14:20] LABS: ACT Activated Clotting Time 227 sec (74-137)
--- NOTE | 2024-07-06 14:55 | PCM.POST.ANE ---
Anesthesia: Postop Eval I Current Vital Signs Temperature: 96.9 F Pulse Rate: 69 Blood Pressure: 138/79 Respiratory Rate: 16 Pulse Ox: 98 Oxygen Delivery Method: Nasal Cannula Oxygen Flow Rate (L/min): 2 Assessment Airway patent: Yes Spontaneous unlabored respirations: Yes Mental status: Awake and Calm nausea: No Vomiting: No Anesthesia Complication: No Fluid Hydration Crystalloid volume administer (ml): 1,300 Total IV fluid infused: 1,300 Progress Note Anesthesia document: Postop Eval 1 completed: Yes
--- NOTE | 2024-07-06 15:54 | OP.PCM_ITS ---
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 Post-Operative Diagnosis: same Surgery/Procedure Performed: arch aortogram left lower extremity angiogram angioplasty/stent left profunda femoral artery IVUS left profunda, common femoral arteries graduate teaching associate: Yes Sales And Marketing Coordinator: Brenda Boston Tasks completed by assistant construction superintendent: Opening, Closing, Opening & closing and Retracting Type of Anesthesia: General RN Documented Start/Stop Times: Operation Date: 07/06/24 11:00 Case Time Into Pre-Op 07/06/24 09:46 Out of Pre-Op 07/06/24 11:55 Into Recovery 07/06/24 14:53 Procedure Start Time: 12:30 Procedure Stop Time: 14:30 Select all DRAINS/GRAFTS/IMPLANTS that apply: Implanted device Implanted device details: [place] viabahn 6 x 2.5 Estimated Blood Loss: 9 Specimen collected: No Surgical Findings: multiple arterial collateral vessels from main and lateral profunda branches giving rise to fistula communication at common femoral vein; improved after covered stent placement though still with filling from distal main profunda collaterals Complications Complications: Yes Complication Details: incomplete exclusion of fistula branches
--- NOTE | 2024-07-06 15:54 | PCM.OPRPT ---
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 Post-Operative Diagnosis: same Surgery/Procedure Performed: arch aortogram left lower extremity angiogram angioplasty/stent left profunda femoral artery IVUS left profunda, common femoral arteries upholstery estimator: Yes Sports Writer: Brenda Boston Tasks completed by assistant professor of economics: Opening, Closing, Opening & closing and Retracting Type of Anesthesia: General RN Documented Start/Stop Times: Operation Date: 07/06/24 11:00 Case Time Into Pre-Op 07/06/24 09:46 Out of Pre-Op 07/06/24 11:55 Into Recovery 07/06/24 14:53 Out of Recovery 07/06/24 15:59 Procedure Start Time: 12:30 Procedure Stop Time: 14:30 Select all DRAINS/GRAFTS/IMPLANTS that apply: Implanted device Implanted device details: Cement viabahn 6 x 2.5 Estimated Blood Loss: 9 Specimen collected: No Description of surgery: HPI: Patient is a 74-year-old male with worsening left lower extremity edema and imaging which revealed arteriovenous fistula adjacent to the common femoral vessels. Difficult to determine the exact location of the communication between vessels but it was suspected that was from the lateral profunda branch. He has had a prior aortobifemoral bypass and it is felt that this would be best treated with endovascular exclusion if possible. Given his prior bypass graft access via the left brachial artery will be performed. Description of procedure: Upon obtaining form consent and verification correct patient procedure site patient was taken to the Contracts [facility] where he was placed under general anesthesia. He was then positioned prepped and draped in usual sterile fashion a time was performed. Transverse incision was made 1 fingerbreadth superior to the antecubital crease and Bovie electrocautery was dissect down through subcutaneous tissue. Self-retaining retractors put in position further dissection was carried down to the brachial artery was visualized. This point sharp dissection was dissected free proximal and distal and a right angle used to place vessel loop. The vessel was then accessed with a micropuncture needle and wire exchanged for a micropuncture sheath. Through the micropuncture sheath a Live Mob[employer] wire was advanced and navigated into the subclavian artery. The micropuncture sheath was exchanged for a short 5 [place] sheath and patient was then heparinized with subsequent heparin dosing based on ACT results. A pigtail catheter was then advanced over the Bentson wire and navigated into the aortic arch with subtraction angiography was performed revealing a type I arch though it was fairly tortuous. Using the pigtail and Bentson wire we ultimately navigated into the descending thoracic aorta. Wire and catheter then advanced into the abdominal aorta and ultimately into the left limb of the aortobifemoral graft. From this position subtraction angiography of the left lower extremity was performed which revealed very robust arteriovenous fistula with multiple arterial and venous branches filling throughout the proximal thigh. A glide advantage wire was then advanced through the catheter both the catheter and short 5 [place] sheath exchanged for a 6 [place] Halo sheath which was advanced over the wire and into the distal bypass limb. From this position further magnified imaging was obtained and using a quick cross catheter and the glide advantage wire we navigated into the profunda artery and ultimately into the lateral profunda artery. From this position additional imaging was obtained which appeared to show either fistula connection or large collateral branch that was itself feeding into the fistula from the mid lateral profunda branch. A command 18 wire was then advanced through the catheter and the quick cross catheter exchanged for an intravascular ultrasound probe which was then utilized to assess the lateral profunda for accurate sizing and branch origin position. It was felt that there were 2 vessels that were feeding potentially toward this fistula identified in the segment and then a 5 mm x 2.5 Cement Viabahn self-expanding stent would adequately cover this origin of the fistula. The ultrasound probe was then withdrawn and the Viabahn advanced over the wire and positioned with its proximal edge at the origin of the lateral profunda branch. The stent was then deployed and postdilated with a 6 mm x 2 angioplasty balloon. Repeat angiography revealed satisfactory occlusion of this particular source of the fistula and there was significant decrease in the overall filling in the venous system however there did not appear to be a secondary fistula communication that actually appeared to center around the common femoral vein which itself was not very well-opacified. There also was no venous egress from the leg via the iliac vein and the majority of contrast filled into the profunda and femoral veins as well as the great saphenous vein and a caudal direction before exiting via collateral branches. We then redirected our wire into the main profunda branch and advanced a quick cross catheter into the mid vessel with further subtraction angiography images obtained which did not appear to show any direct communication between the profunda and the venous system and that in fact contrast would exit into large caliber collaterals that flowed toward the pelvis before ultimately draining into the venous system adjacent to the common femoral vein. Given that there was no close proximity of the fistula to the main profunda branch and the amount of tortuosity within the collaterals is felt that no further endovascular efforts should be undertaken and that either treatment of the venous outflow obstruction or direct surgical ligation of the fistula communication at the common femoral would be the most successful means of improving his symptoms. Wire and sheath were then withdrawn and the brachial artery occluded with Vesseloops. The vessel was then repaired with interrupted 6-0 Prolene transverse orientation. Prior to completing suture line vessels are backbled after completing suture clamps removed and satisfactory stasis was noted. There is a palpable pulse in the brachial artery and appropriate Doppler signal. The incision was closed with 3-0 Vicryl followed by 4 Monocryl and Dermabond for the skin. At the conclusion of case the patient was taken to the recovery room with anticipated return to the PCU. Surgical Findings: multiple arterial collateral vessels from main and lateral profunda branches giving rise to fistula communication at common femoral vein; improved after covered stent placement though still with filling from distal main profunda collaterals Complications Complications: Yes Complication Details: incomplete exclusion of fistula branches
[2024-07-06] MEDS: Finasteride 5 MG Tablet PO (18:37)
[2024-07-06] MEDS: Atorvastatin Calcium 40 MG Tablet PO (21:47)
[2024-07-07] VITALS (7 sets, daily range): BP systolic 128–147; BP diastolic 72–85; PULSE 86–91; RESP 16–20; TEMP 36–36.7; O2SAT 94–97; BMI 27.9
[2024-07-07] MEDS: Levothyroxine 150 MCG Tablet PO (05:23)
[2024-07-07 06:32] LABS: Absolute Lymphocyte Count 0.77 X10^3/uL (0.83-4.51); Absolute Neutrophil Count 3.9 X10^3/uL (2.0-7.7); Basophil# 0.05 X10^3/uL; Basophil% 0.9 % (0-1); Eosinophil# 0.13 X10^3/uL; Eosinophils% 2.4 % (0-5); Hematocrit 36.1 % (40-54); Hemoglobin 11.5 g/dL (13.0-16.5); Lymphocyte # 0.77 X10^3/ul (0.83-4.51); Lymphocyte % 14.3 % (19-41); Mean Corp Hgb Conc 31.9 g/dL (32-36); Mean Corpuscular Hgb 29.6 pg (27.0-32.0); Mean Platelet Vol. 11.9 fl (6.2-12.0); Monocyte# 0.49 X10^3/uL; Monocyte% 9.1 % (0-10); NRBC Flagged by Analyzer 0 % (0-5); Neutrophil % 72.4 % (47-70); Platelet Count 109 K/mm3 (150-450); RBC Distribution Width CV 15.1 % (11.6-14.6); RBC Distribution Width SD 51.4 fl (35.1-43.9); Red Blood Count 3.88 M/mm3 (4.6-6.2); White Blood Count 5.4 K/mm3 (4.4-11.0)
[2024-07-07] MEDS: Budesonide Respules 0.5 MG/2 ML AMPUL.NEB. INHALATION (06:59)
[2024-07-07] MEDS: Ipratropium/Albuterol Sulfate 3 ML AMPUL.NEB INHALATION ×2 (06:59→13:11)
[2024-07-07 07:10] LABS: Anion Gap 10 (5-15); BUN 12 mg/dL (4-19); BUN/Creat Ratio 7.8 RATIO (10-20); Calcium,Total 8.6 mg/dL (7.6-11.0); Carbon Dioxide 23.6 mmol/L (21.0-32.0); Chloride 106 mmol/L (98-108); Creatinine, Serum 1.54 mg/dL (0.70-1.20); EST Glomerular Filtration Rate 47 (>60); Estimated Creatinine Clearance 45.68 ml/min (50-250); Glucose 88 mg/dL (70-99); Potassium 3.6 mmol/L (3.3-5.1); Sodium Level 140 mmol/L (133-145)
--- NOTE | 2024-07-07 08:43 | PN.SURG_ITS ---
Subjective Subjective I saw patient this morning resting in bed this morning. He reports no pain in his arm at the access site. He reports he had some burning pain in his foot but this improved when the DOMINGA wrap was removed. Otherwise, no complaints. Objective Data Objective Data Vital Signs: Vital Signs Temp Pulse Resp BP Pulse Ox O2 Del Method O2 Flow Rate 97.2 F L 86 18 147/76 H 96 Nasal Cannula 2 07/07/24 03:20 07/07/24 03:20 07/07/24 03:20 07/07/24 03:20 07/07/24 03:20 07/07/24 04:17 07/07/24 04:17 Oxygen Flow Rate (L/min) 2 Oxygen Delivery Method Nasal Cannula Weight: 189 lb 2.506 oz Body Mass Index (BMI) 27.9 Intake & Output: Intake and Output for Last 24 Hours 07/05/24 07/06/24 07/07/24 23:59 23:59 23:59 Intake Total 700 / 700 655.75 / 655.75 84.25 / 84.25 Output Total 1055 / 1055 2045 / 2045 100 / 100 Balance -355 / -355 -1389.25 / -1389.25 -15.75 / -15.75 Lab / Micro Data 07/07/24 06:07 07/07/24 06:07 Labs: Laboratory Results - last 24 hr 07/06/24 12:13: Activated Clotting Time 227 H 07/07/24 06:07: WBC 5.4, RBC 3.88 L, Hgb 11.5 L, Hct 36.1 L, MCV 93.0, MCH 29.6, MCHC 31.9 L, RDW Std Deviation 51.4 H, RDW Coeff of Yanira 15.1 H, Plt Count 109 L, MPV 11.9, Immature Gran % (Auto) 0.900, Neut % (Auto) 72.4 H, Lymph % (Auto) 14.3 L, [place] % (Auto) 9.1, Eos % (Auto) 2.4, Baso % (Auto) 0.9, Absolute Neuts (auto) 3.9, Absolute Lymphs (auto) 0.77 L, Nucleated RBC % 0, Sodium 140, Potassium 3.6, Chloride 106, Carbon Dioxide 23.6, Anion Gap 10, BUN 12, C reatinine 1.54 H, Estim Creat Clear Calc 45.68 L, Est GFR (MDRD) Non-Af 47 L, B UN/Creatinine Ratio 7.8 L, Glucose 88, Calcium 8.6 Micro: Microbiology 07/01/24 10:21 Blood Culture (Wb) - Anticubital Left Blood Culture - Final No growth in 5 days. 07/01/24 09:42 Blood Culture (Wb) - Anticubital Left Blood Culture - Final No growth in 5 days. 07/01/24 10:04 Urine Catheter - Maddox Urine Culture - Final Meth. resistant Staph. aureus 07/01/24 11:26 Mucosa - Nose SARS-CoV-2, Influenza & RSV (PCR) - Final Physical Exam Const alert, oriented x3 and no apparent distress General Appearance: cooperative HEENT hearing grossly normal bilaterally and external ears normal Head and Scalp: normal to inspection Nose: external nose normal Eyes General Eye: normal appearance of both eyes Resp normal respiratory effort, normal air movement, no retractions and no use of accessory muscles Cardio regular rate and regular rhythm Extremity Extremity Narrative: Left upper arm incision site with postoperative dressing C/D/I; no bleed- through, no focal edema/ecchymosis LLE with stable appearing edema, L foot warm and appropriately pink, sensory and motor intact Assessment & Plan Assessment/Plan (1) Peripheral arterial disease with history of revascularization: (2) Femoral arteriovenous fistula, left: PLAN: Plan He is s/p angioplasty/stent left profunda femoral artery via L brachial cutdown 07/06/24. L arm incision site satisfactory in appearance. LLE with stable vascular exam, swelling appear stable so far. OK to reinitiate Eliquis. Continue ASA 81mg daily. Plan is for close outpatient follow-up in the office to determine if further staged intervention is indicated. From vascular standpoint, OK for discharge when otherwise medically stable. Charges/Coding Visit Charges Inpatient E&M: 33251 Subs Hosp L1
[2024-07-07] MEDS: Linezolid 600 MG 600 MG/300 ML BAG 200 MG IV (10:13)
[2024-07-07] MEDS: 0.9% Saline Lock 10 ML Syringe IV (10:14)
[2024-07-07] MEDS: Aspirin E.C. 81 MG Tablet PO (10:14)
[2024-07-07] MEDS: Pantoprazole Sodium 40 MG Tablet PO (10:14)
--- NOTE | 2024-07-07 12:13 | TREXTCAR_ITS ---
Diet Diet Order/Speech Therapy: 07/07/24 08:37 Diet: Regular - General Food consistency:: Pureed Liquid Consistency:: Regular/Thin Type of Dietary Supplement:: fort pudd w/ L & D Diet Comments: TOTAL FEED, liquids by tsp, alt bites/sips, meds crushed in Routine Orders/Code Status Suppository Frequency: Daily PRN Routine Lab Work: CBC (1 week) and BMP (1 week) Code Status: Full Code DC O2, CPAP, BIPAP needs Home O2 Discharge instructions: No Wound(s) LT FOREARM: Wound Type: Skin Tear LAC: Wound Type: Puncture Suggestions for Active Care Change Position every (hours): 2 Hours to sit in a chair: 3 Times a day to sit in chair: 2 Therapies Weight Bearing: Weight bearing as tolerated Extremity Affected:: Bilateral Lower Physical Therapy: Eval and Treat Occupational Therapy: Eval and Treat Speech Therapy: Eval and Treat Problem/Diagnosis (1) Femoral arteriovenous fistula, left: Status: Acute Code(s): I77.0 - Arteriovenous fistula, acquired (2) Leukocytosis: Status: Acute Code(s): D72.829 - Elevated white blood cell count, unspecified (3) Acidosis, lactic: Status: Acute Code(s): E87.20 - Acidosis, unspecified (4) Acute UTI: Status: Acute Code(s): N39.0 - Urinary tract infection, site not specified (5) Sepsis: Status: Acute Code(s): A41.9 - Sepsis, unspecified organism Allergies/Procedures Done in Hospital Allergies No Known Allergies Allergy (Verified 07/01/24 13:29) Procedures: EGD and EKG Type of Care/Length of Stay Estimated LOS: Convalescent Care Less Than 30 days Type of Care Needed: Skilled Rehab Potential: Fair Prognosis: Fair Additional Orders/Day of Discharge Additional Orders: Please let Dr. Thompson office know if the swelling in his LLE is worsening the expectation is slow improvement with time Day of Discharge: 07/07/24 Dietary and Speech Recommendations Dietitian Recommendations/Changes: Will continue regular diet with consistency/texture as per RECORDER HELPER GRAVITY PROSPECTING and fortified pudding w/ lunch and dinner. Additional ONS as needed once PO established with meals. Speech Linguistic Eval Summary: Recommendations Diet: Minced and Moist Textures and Thin Liquids Comment: intermittent cough and re-swallow frequent oral care Compensatory Strategies: Small Bites, Liquid by Teaspoon Only, Slow Rate, Alternate bites/solids and sips/liquids, Sitting upright and Remain sitting upright for 30 minutes after PO intake Supervision: 1:1 Direct Supervision (Assist feeding as needed ) Recommend Repeat Modified Barium Swallow: TBD Need for Skilled Speech Therapy Services: Yes Comment: Continued dysphagia therapy services during acute stay and at discharge. POC to include the following... -Train the patient and staff in strategies to decrease risk for aspiration and reflux aspiration. Will recommend the patient for a bolus control cup (5cc) at next level of care. -Train the patient in oropharyngeal strengthening (lingual resistance, effortful, Ai, Tres). -Ongoing assessment of diet tolerance. Recommended Referrals: GI Consult (GI already consulted for consideration for repeat EGD.) Education Completed: 1. Described result of evaluation., 2. Pt understands evaluation & agrees with goals and treatment plan. and 7. Pt requires further education on strategies & risks. Status Active ST Patient: Active Contact Information [facility] Speech Therapy:: Ya Lua M.A. CCC-RECORDER HELPER GRAVITY PROSPECTING Speech-Language Pathologist [address] [address] [email or web address] [phone] Follow Up Care Please follow up with your Primary Care Physician in: 1 week after d/c from SNF Please Follow Up With: Efraín Thompson MD When: 1-2 weeks Discharge Plan Admission Admit Date/Time: 07/01/24 11:19 Attending Provider: Ginger Espitia Primary Care Provider: Jenae Franco Consulting Providers: Efraín Thompson; Kulwinder De La O Discharge Orders/Prescriptions Prescriptions: No Action finasteride 5 mg tablet 5 mg PO DAILY ferrous sulfate 325 mg (65 mg iron) tablet 325 mg PO BIDCM Qty: 1 0RF levothyroxine 100 mcg Tablet 100 mcg PO DAILY@0600 Qty: 30 2RF pantoprazole 40 mg tablet,delayed release (DR/EC) 40 mg PO BID Qty: 60 2RF albuterol sulfate 90 mcg/actuation HFA aerosol inhaler 1 - 2 puff inhalation 4X/DAY PRN (Reason: wheezing) Eliquis 5 mg Tablet 5 mg PO BID amlodipine 5 mg tablet 5 mg PO DAILY aspirin 81 mg tablet,delayed release (DR/EC) 81 mg PO DAILY ergocalciferol (vitamin D2) 1,250 mcg (50,000 unit) capsule 1,250 mcg PO MO Trelegy Ellipta 100-62.5-25 mcg blister with device 1 ea inhalation DAILY levothyroxine 150 mcg tablet 150 mcg PO DAILY rosuvastatin 20 mg tablet 20 mg PO QHS Tradjenta 5 mg tablet 5 mg PO DAILY icosapent ethyl 1 gram capsule 2 g PO BID Referrals / Follow Up: Jenae Franco MD [Primary Care Provider] -
--- NOTE | 2024-07-07 12:30 | DS.PCM_ITS ---
Providers Date of Admission: 07/01/24 Primary Care Physician: Jenae Franco MD Consultations 07/01/24 18:05 Consult: Onc/Wound/fur finisher Routine Comment: Reason for Consult:: COLOSTOMY CARE 07/03/24 10:55 Consult: Gastroenterology Routine Consulting Provider: [facility] Reason for Consult: known to you, here w/ dysphagia and possib aspiration pna, eval for EGD EMERGENT Consult: No MD Notified: Yes Date Notified: 07/03/24 Time Notified: 10:55 Method of Notification: Text 07/03/24 11:22 Consult: Vascular Surgery Routine Consulting Provider: Efraín Thompson Reason for Consult: abnormal venous duplex US on left EMERGENT Consult: No MD Notified: Yes Date Notified: 07/03/24 Time Notified: 11:22 Method of Notification: per Dr. De La O Reason For Visit: COMPLICATED UTI W/ CONCERN FOR SEPSIS LEFT LOWER Diagnosis Discharge Diagnosis (1) Femoral arteriovenous fistula, left: Status: Acute Code(s): I77.0 - Arteriovenous fistula, acquired (2) Leukocytosis: Status: Acute Code(s): D72.829 - Elevated white blood cell count, unspecified (3) Acidosis, lactic: Status: Acute Code(s): E87.20 - Acidosis, unspecified (4) Acute UTI: Status: Acute Code(s): N39.0 - Urinary tract infection, site not specified (5) Sepsis: Status: Acute Code(s): A41.9 - Sepsis, unspecified organism (6) Peripheral arterial disease with history of revascularization: Status: Acute Code(s): I73.9 - Peripheral vascular disease, unspecified; Z98.890 - Other specified postprocedural states Plan Sepsis secondary to UTI in the setting of chronic urinary retention/aspiration pneumonia -Patient with lactic acidosis, leukocytosis, tachycardia and tachypnea -CT on presentation showed subtle ground glass opacity in the right lower lobe concerning for acute pneumonia as well as hydronephrosis and hydroureter of the right kidney suspect related to chronic reflux -Patient does have known aspiration issues -Urine culture was positive for MRSA -Continue linezolid to complete antibiotic course given his chronic Maddox and the fact that this is a complicated UTI with MRSA Dysphagia -EGD done on 07/04/2024 showed grade D erosive esophagitis that was bleeding, benign-appearing esophageal stenosis that was dilated and chronic duodenitis -Continue speech therapy with diet modifications as recommended Erosive esophagitis/esophageal stenosis -Biopsies are pending -repeat EGD in 1 month -Protonix 40 mg twice daily recommended at discharge FIOR on CKD stage IIIb -Baseline creatinine looks to be between 1.6 and 1.75 -Creatinine on presentation 2.13 -Currently 1.44 and stable Severe left lower extremity swelling secondary to AV fistula -Patient follows at [facility] [place] with previous bilateral aortofemoral bypass and AAA repair -No DVT found -Postop day 0 from intervention to the left groin--may need staged procedure per Dr. Thompson but will not to remain hospitalized Acute on chronic debility -PT/OT following -Lives with son and daughter at baseline and uses a walker -Plan is for discharge to retirement facility possibly tomorrow if stable DM-2 -Oral agents on hold -Continue SSI -Accu-Cheks as ordered -Cardiac/carb controlled diet History of stroke/essential hypertension/hyperlipidemia -Antihypertensives are currently on hold will continue to monitor -Continue home aspirin -Continue home statin Hypothyroidism -Continue home Synthroid History of rectal cancer -Status post chemo and radiation with resection of left colon -Has a permanent colostomy since 2020 -Outpatient follow-up with oncology Peripheral vascular disease -Management per vascular surgery as above GERD -Continue on PPI History of DVT -Restart Eliquis tomorrow if okay with vascular surgery DVT prophylaxis -Will restart Eliquis probably tomorrow if okay with vascular surgery CODE STATUS -Full code Medications at Discharge Home Medications finasteride 5 mg tablet 5 mg PO DAILY prostate 06/22/23 levothyroxine 100 mcg tablet 100 mcg PO DAILY@0600 #30 tabs 01/15/24 pantoprazole 40 mg tablet,delayed release 40 mg PO BID #60 tabs 01/15/24 albuterol sulfate 90 mcg/actuation aerosol inhaler 1 - 2 puff inhalation 4X/DAY PRN wheezing 02/22/24 apixaban 5 mg tablet (Eliquis) 5 mg PO BID 02/22/24 aspirin 81 mg tablet,delayed release 81 mg PO DAILY 07/01/24 ergocalciferol (vitamin D2) 1,250 mcg (50,000 unit) capsule 1,250 mcg PO MO 07/01/24 fluticasone fur. 100 mcg-umeclid 62.5 mcg-vilant 25 mcg inhalat.powder (Trelegy Ellipta) 1 ea inhalation DAILY 07/01/24 icosapent ethyl 1 gram capsule 2 g PO BID 07/01/24 levothyroxine 150 mcg tablet 150 mcg PO DAILY 07/01/24 linagliptin 5 mg tablet (Tradjenta) 5 mg PO DAILY 07/01/24 rosuvastatin 20 mg tablet 20 mg PO QHS 07/01/24 ipratropium 0.5 mg-albuterol 3 mg (2.5 mg base)/3 mL nebulization soln 3 ml inhalation Q6HWA.RT #0 mL 07/07/24 linezolid 600 mg tablet (Zyvox) 600 mg PO BID #18 tabs 07/07/24 nystatin 100,000 unit/gram topical powder (Nyamyc) 1 applic topical TID #0 grams 07/07/24 nystatin 100,000 unit/mL oral suspension 100,000 unit PO DAILY #60 mL 07/07/24 oxycodone 5 mg capsule 5 mg PO Q4H PRN pain 2 days #12 caps 07/07/24 Hospital Course Operations - (angioplasty/stent left profunda femoral artery IVUS left profunda, common femoral arteries) Procedures EGD, EKG, Modified Barium Swallow (Recommendations Diet: Minced and Moist Textures and Thin Liquids Comment: intermittent cough and re-swallow frequent oral care Compensatory Strategies: Small Bites, Liquid by Teaspoon Only, Slow Rate, Alternate bites/solids and sips/liquids, Sitting upright and Remain sitting upright for 30 minutes) and - (CT abdomen pelvis/chest x-ray/venous duplex/CT abdomen pelvis) Summary of Care Provided Minutes Spent on Discharge: 39 Hospital Course: Patient is a 74-year-old white male who presented to emergency department at [facility] on 07/01/2024 with chief complaint of dysuria, nausea, and vomiting. Patient has an indwelling Maddox catheter due to urinary retention that he changes about every 10 days. Dysuria began the day prior to presentation and then the patient developed nausea and 2 bouts of emesis prior to presentation. At the time of presentation he was living at home with his son and daughter. At baseline he was utilizing a walker but has been more fatigued. His past medical history is quite complex and family reported that he had worsening left lower extremity swelling that has been gradual over the last several months. With the marked edema there was concern of left lower extremity DVT presently and an ultrasound was done which was negative for DVT. Vital signs on presentation showed a temperature of 97.9, heart rate 106, blood pressure was 150/63, respiratory rate was 18 and pulse ox was 95% on room air. CBC on presentation showed a leukocytosis with a white count of 17 and a left shift with an 87.3% neutrophilia. His chemistry panel showed FIOR with a serum creatinine of 2.13 (baseline 1.4-1.6), hyperkalemia, hyperglycemia, and a lactic acidosis of 2.4. Given his vitals, lactic acidosis and renal function he met criteria for sepsis and was started on broad-spectrum antibiotics. Cultures were obtained. Blood cultures were unremarkable but urine culture showed MRSA with very high colony counts and he was treated with MRSA coverage at the time of discharge was to complete a course of Zyvox for total of 14 days in combination with his hospital antibiotics. CT of his abdomen pelvis showed hydronephrosis and hydroureter of the right kidney which appears to be chronic but was otherwise unremarkable for acute findings. 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 The case was discussed as a transfer was initially planned however the vascular surgeon here, Dr. Thompson, discussed the case with the [facility] vascular surgeon and they felt stenting was appropriate in this setting. He was taken to the vascular lab on 07/06/2024 at which time arch aortogram with the left lower extremity, angioplasty and stent placement of the left profundofemoral artery with IVUS to the left profunda and common femoral arteries was performed. Plan is for follow-up with Dr. Thompson after time is given to allow swelling to reduce. If swelling does not improve or worsens his office is to be notified by the nursing facility. He was seen by speech therapy as there was concern for right basilar pneumonia at the time of presentation as well and aspiration was of concern. It was recommended that he be on minced and moist textures with thin liquids and an EGD be performed. EGD was done by Dr. Ramos on 07/04/2024 and demonstrated severe erosive esophagitis, benign-appearing esophageal stenosis which was dilated and chronic duodenitis. The patient did have pending biopsies at the time of discharge and a repeat upper endoscopy was recommended in 1 month to evaluate response. He is to be on Protonix 40 mg p.o. twice daily for the next 8 weeks or until instructed otherwise by gastroenterology. Modifications to his diet were made at the time of discharge and he will continue speech therapy, physical therapy, and Occupational Therapy at the time of discharge. Patient's overall health is extremely poor and he is at extremely high risk for readmission. Discharge diagnoses: Sepsis secondary to UTI in the setting of chronic urinary retention and chronic Maddox Possible aspiration pneumonia Dysphagia Erosive esophagitis Esophageal stenosis FIOR CKD stage IIIb Severe left lower extremity swelling secondary to AV fistula Acute on chronic debility DM-2 History of stroke Essential hypertension Hyperlipidemia Hypothyroidism History of rectal cancer PVD GERD History of DVT Physical Exam Const alert, oriented x3, no apparent distress, average body habitus and no limitations; Negative for healthy appearing or well nourished Constitutional Narrative: Frail-appearing, elderly, Older, white male, sitting up in a chair at the bedside, appears older than stated age, pleasant, interacts appropriately, nontoxic appearing General Appearance: cooperative, comfortable, well kempt and well developed Nutritional Appearance: overweight HEENT normocephalic, head/scalp atraumatic and moist oral mucous membranes HEENT Narrative: Mild hearing loss, Mallampati 1-2, dentition is poor, thrush is present Eyes EOMs intact bilaterally and conjunctivae normal Eyes Narrative: No scleral icterus Neck no lymphadenopathy and supple Neck Narrative: Trachea midline, no thyroid enlargement Resp normal respiratory effort, no retractions, no use of accessory muscles and clear to auscultation bilaterally Resp Narrative: Diffusely diminished but clear Auscultation: Negative for rales, rhonchi or wheezes Cardio regular rate, regular rhythm, S1 normal heart sound, S2 normal heart sound, no murmurs, no rub, no gallops, no clicks and peripheral pulses 2+ throughout GI normal to inspection, nondistended, normoactive bowel sounds, soft to palpation and non-tender GI Narrative: Ostomy left lower quadrant with good output Extremity Extremity Narrative: Decreased pedal pulses, marked left lower extremity edema with normal size right lower extremity, left lower extremity with severe edema Skin skin turgor normal and no jaundice Neuro oriented x3, CN's II-XII intact bilaterally, moves all extremities and no focal motor deficits Neuro Narrative: Able to move all extremities however difficult with left lower extremity due to in size Sensorium / Orientation: alert Speech: speech normal Psych mental status grossly normal and affect normal Psych Narrative: Extremely pleasant Weight / BMI Weight Weight: 85.8 kg Body Mass Index (BMI) 27.9 ABG / Lab / Microbiology Data 07/07/24 06:07 07/07/24 06:07 Laboratory: Laboratory Results - last 24 hr 07/06/24 12:13: Activated Clotting Time 227 H 07/07/24 06:07: WBC 5.4, RBC 3.88 L, Hgb 11.5 L, Hct 36.1 L, MCV 93.0, MCH 29.6, MCHC 31.9 L, RDW Std Deviation 51.4 H, RDW Coeff of Yanira 15.1 H, Plt Count 109 L, MPV 11.9, Immature Gran % (Auto) 0.900, Neut % (Auto) 72.4 H, Lymph % (Auto) 14.3 L, Nye % (Auto) 9.1, Eos % (Auto) 2.4, Baso % (Auto) 0.9, Absolute Neuts (auto) 3.9, Absolute Lymphs (auto) 0.77 L, Nucleated RBC % 0, Sodium 140, Potassium 3.6, Chloride 106, Carbon Dioxide 23.6, Anion Gap 10, BUN 12, C reatinine 1.54 H, Estim Creat Clear Calc 45.68 L, Est GFR (MDRD) Non-Af 47 L, B UN/Creatinine Ratio 7.8 L, Glucose 88, Calcium 8.6 Microbiology: Microbiology 07/01/24 10:21 Blood Culture (Wb) - Anticubital Left Blood Culture - Final No growth in 5 days. 07/01/24 09:42 Blood Culture (Wb) - Anticubital Left Blood Culture - Final No growth in 5 days. 07/01/24 10:04 Urine Catheter - Maddox Urine Culture - Final Meth. resistant Staph. aureus 07/01/24 11:26 Mucosa - Nose SARS-CoV-2, Influenza & RSV (PCR) - Final D/C Instructions DC O2, CPAP, BIPAP Needs Home O2 Discharge instructions: No Please Follow Up With: Efraín Thompson MD Meaningful Use Info Meaningful Use Meaningful Use Diagnoses (Choose all that apply): None applicable Ischemic Stroke Statin Dosing Therapy Reference: STATIN DOSE THERAPY REFERENCE: * Patients > 75 years receive moderate or high dose statin therapy. * Patients 75 years or YOUNGER should receive HIGH intensity statin dose unless contraindicated. You will be required to document reason for non-treatment if statin daily dose does not meet guidelines. HIGH DOSE STATIN THERAPY DAILY Atorvastatin > than or = to 40 mg Rosuvastatin > than or = to 20 mg Amlodipine + Atorvastatin > than or = to 2.5/40 mg Ezetimibe + Simvastatin 10/80 mg Simvastatin 80mg Discharge Plan Admission Admit Date/Time: 07/01/24 11:19 Primary Reason for Your Visit: Left leg swelling Attending Provider: Ginger Espitia Primary Care Provider: Jenae Franco Consulting Providers: Efraín Thompson; Kulwinder De La O Instructions Additional Instructions / Restrictions: Left lower extremity swelling should it is very slowly get better. If it gets worse or does not improve please call Dr. Thompson's office Discharge Orders/Prescriptions Prescriptions: New ipratropium-albuterol 0.5 mg-3 mg(2.5 mg base)/3 mL Solution For Nebulization 3 ml inhalation Q6HWA.RT Qty: 0 0RF nystatin [Nyamyc] 100,000 unit/gram Powder 1 applic topical TID Qty: 0 0RF Protocol: *Topical Application Instructions APPLICATION INSTRUCTIONS: to affected regions linezolid [Zyvox] 600 mg tablet 600 mg PO BID Qty: 18 0RF oxycodone 5 mg capsule 5 mg PO Q4H PRN (Reason: pain) 2 Days Qty: 12 0RF nystatin 100,000 unit/mL suspension 100,000 unit PO DAILY Qty: 60 0RF Rx Instructions: administer 1/2 of dose in each side of the mouth Continued finasteride 5 mg tablet 5 mg PO DAILY levothyroxine 100 mcg Tablet 100 mcg PO DAILY@0600 Qty: 30 2RF pantoprazole 40 mg tablet,delayed release (DR/EC) 40 mg PO BID Qty: 60 2RF albuterol sulfate 90 mcg/actuation HFA aerosol inhaler 1 - 2 puff inhalation 4X/DAY PRN (Reason: wheezing) Eliquis 5 mg Tablet 5 mg PO BID aspirin 81 mg tablet,delayed release (DR/EC) 81 mg PO DAILY ergocalciferol (vitamin D2) 1,250 mcg (50,000 unit) capsule 1,250 mcg PO MO Trelebernardino Ellipta 100-62.5-25 mcg blister with device 1 ea inhalation DAILY levothyroxine 150 mcg tablet 150 mcg PO DAILY rosuvastatin 20 mg tablet 20 mg PO QHS Tradjenta 5 mg tablet 5 mg PO DAILY icosapent ethyl 1 gram capsule 2 g PO BID Discontinued ferrous sulfate 325 mg (65 mg iron) tablet 325 mg PO BIDCM Qty: 1 0RF amlodipine 5 mg tablet 5 mg PO DAILY Referrals / Follow Up: Jenae Franco MD [Primary Care Provider] - In 1 Week (After discharge from retirement facility) Efraín Thompson MD [Med Staff - Active Staff] - Within 2 Weeks David Ramos DO [Med Staff - Active Staff] - See Referral Note (2 to 4 weeks for repeat EGD) Disposition Disposition (needs filled in before D/C Order can be placed): Longterm Facility Charges/Coding Visit Charges Inpatient E&M: 22008 SNF Disch >30 Min
[2024-07-07] MEDS: APIXABAN 5 MG TABLET PO (14:29)
--- NOTE | 2024-07-07 15:11 | CASEMGMT ---
Discharge Planning Discharge order, signed med list, and transport time sent to [facility]. Physicians will transport pt by wheelchair at 6p. Nursing, SW, pt, and his daughter (Shaunna) updated. Nadine Betts DC Planning Asst.
--- NOTE | 2024-07-07 15:18 | PHA.DC.MR.R ---
Pharmacy [place] Med Reconciliation Pharmacy Service has performed discharge medication reconciliation for this patient. The patient's discharge medication list was reviewed for discrepancies and discrepancies were resolved. Medications at Discharge Home Medications finasteride 5 mg tablet 5 mg PO DAILY prostate 06/22/23 levothyroxine 100 mcg tablet 100 mcg PO DAILY@0600 #30 tabs 01/15/24 pantoprazole 40 mg tablet,delayed release 40 mg PO BID #60 tabs 01/15/24 albuterol sulfate 90 mcg/actuation aerosol inhaler 1 - 2 puff inhalation 4X/DAY PRN wheezing 02/22/24 apixaban 5 mg tablet (Eliquis) 5 mg PO BID 02/22/24 aspirin 81 mg tablet,delayed release 81 mg PO DAILY 07/01/24 ergocalciferol (vitamin D2) 1,250 mcg (50,000 unit) capsule 1,250 mcg PO MO 07/01/24 fluticasone fur. 100 mcg-umeclid 62.5 mcg-vilant 25 mcg inhalat.powder (Trelegy Ellipta) 1 ea inhalation DAILY 07/01/24 icosapent ethyl 1 gram capsule 2 g PO BID 07/01/24 levothyroxine 150 mcg tablet 150 mcg PO DAILY 07/01/24 linagliptin 5 mg tablet (Tradjenta) 5 mg PO DAILY 07/01/24 rosuvastatin 20 mg tablet 20 mg PO QHS 07/01/24 ipratropium 0.5 mg-albuterol 3 mg (2.5 mg base)/3 mL nebulization soln 3 ml inhalation Q6HWA.RT #0 mL 07/07/24 linezolid 600 mg tablet (Zyvox) 600 mg PO BID #18 tabs 07/07/24 nystatin 100,000 unit/gram topical powder (Nyamyc) 1 applic topical TID #0 grams 07/07/24 nystatin 100,000 unit/mL oral suspension 100,000 unit PO DAILY #60 mL 07/07/24 oxycodone 5 mg capsule 5 mg PO Q4H PRN pain 2 days #12 caps 07/07/24
--- NOTE | 2024-07-07 15:50 | NURSING ---
Report called to Papi at [facility]
--- NOTE | 2024-07-07 16:16 | CASEMGMT ---
Patient is ready for discharge to [facility]. SW completed a 7000 in [employer] system. Plan: d/c to [facility] under skilled level of care on a convalescent stay. Gosia RUBY
== END 2024-07-07 19:49 | disposition skilled nursing facility (03) | DRG 981 ==
LOC: ED 11:29 → PCU 12:01
PROVIDERS: Internal Medicine Gastroenterology; Surgery Trauma Surgery; Admitting Provider Hospitalist; Emergency Provider Emergency Medicine; PCP Internal Medicine; Visit Provider Internal Medicine
PROC: 0DJ08ZZ Inspection of Upper Intestinal Tract, Via Natural or Artificial Opening Endoscopic (ICD-10-PCS; CPT 43235; principal; 2024-07-04 16:25)
PROC: 04LL3DZ Occlusion of Left Femoral Artery with Intraluminal Device, Percutaneous Approach (ICD-10-PCS; principal; 2024-07-06 10:40)
DX: T83.511A Infection and inflammatory reaction due to indwelling urethral catheter, initial encounter (principal); A41.02 Sepsis due to Methicillin resistant Staphylococcus aureus; J69.0 Pneumonitis due to inhalation of food and vomit; K22.11 Ulcer of esophagus with bleeding; I69.354 Hemiplegia and hemiparesis following cerebral infarction affecting left non-dominant side; N17.9 Acute kidney failure, unspecified; E11.22 Type 2 diabetes mellitus with diabetic chronic kidney disease; D50.9 Iron deficiency anemia, unspecified; N18.32 Chronic kidney disease, stage 3b; I12.9 Hypertensive chronic kidney disease with stage 1 through stage 4 chronic kidney disease, or unspecified chronic kidney disease; E03.9 Hypothyroidism, unspecified; I77.0 Arteriovenous fistula, acquired; Z93.3 Colostomy status; K22.2 Esophageal obstruction; K29.80 Duodenitis without bleeding; E11.51 Type 2 diabetes mellitus with diabetic peripheral angiopathy without gangrene; E78.5 Hyperlipidemia, unspecified; K44.9 Diaphragmatic hernia without obstruction or gangrene; E87.5 Hyperkalemia; E11.65 Type 2 diabetes mellitus with hyperglycemia; R33.8 Other retention of urine; R13.10 Dysphagia, unspecified; N39.0 Urinary tract infection, site not specified; Z79.01 Long term (current) use of anticoagulants; Z79.82 Long term (current) use of aspirin; Z79.890 Hormone replacement therapy; Z86.718 Personal history of other venous thrombosis and embolism; Z87.891 Personal history of nicotine dependence; Z92.3 Personal history of irradiation; Z92.21 Personal history of antineoplastic chemotherapy; Z95.820 Peripheral vascular angioplasty status with implants and grafts
CPT/HCPCS: 36200; 36245; 36415; 37226; 37252; 37253; 71045; 74176; 74230; 75605; 75635; 75710; 76937; 80048; 80053; 81001; 83605; 83735; 84100; 85025; 85027; 85347; 87040; 87077; 87086; 87088; 87186; 87631; 88305; 92526; 92610; 92611; 93005; 93971; 94640; 94668; 97116; 97162; 97166; 97530; 97535; 97802; 99285; A4648; C1725; C1753; C1769; C1887; C1894; J2020; Q9967; A4216; C1874; J2405

== ENCOUNTER 2024-07-13 16:57 | Inpatient (IN) | payer MEDICARE, BC, SELFPAY ==
[2024-07-13 16:59] VITALS: BP 109/65; PULSE 105; RESP 16; TEMP 36.6; O2SAT 100; BMI 31.1
--- NOTE | 2024-07-13 17:35 | ED.VIS.GI ---
HPI HPI - GI History of Present Illness Chief Complaint: GI Bleed Narrative Narrative: History of physical limited secondary to patient's memory issues. 74-year-old male presents from senior care facility with reported removal of clots and bleeding from ostomy. He has history of colon carcinoma and has had an ostomy for quite some time. He does take Eliquis for history of DVT. It was reported that he has had blood and clots coming from his ostomy site. Patient denies any other bleeding diathesis, no abdominal pain, no nausea or vomiting. [facility] Medical History Peripheral arterial disease with history of revascularization MRSA (methicillin resistant staph aureus) culture positive Wears glasses Low iron Stroke/cerebrovascular accident Former smoker Colostomy in place Family history of abdominal aortic aneurysm repair DVT (deep venous thrombosis) Enteritis Cholelithiasis Acidosis, lactic Encephalopathy due to infection Acute hypoxemic respiratory failure Complicated urinary tract infection Severe sepsis with acute organ dysfunction Aspiration into respiratory tract FIOR (acute kidney injury) Colon cancer Home Medications ?Medication ?Instructions ?Recorded ?Last Taken ?Type finasteride 5 mg tablet 5 mg PO DAILY prostate 06/22/23 06/30/24 History levothyroxine 100 mcg tablet 100 mcg PO DAILY@0600 #30 tabs 01/15/24 06/30/24 Rx pantoprazole 40 mg tablet,delayed 40 mg PO BID #60 tabs 01/15/24 06/30/24 Rx release albuterol sulfate 90 mcg/actuation 1 - 2 puff inhalation 4X/DAY PRN 02/22/24 Unknown History aerosol inhaler wheezing apixaban 5 mg tablet (Eliquis) 5 mg PO BID 02/22/24 06/30/24 History aspirin 81 mg tablet,delayed 81 mg PO DAILY 07/01/24 06/30/24 History release fluticasone fur. 100 mcg-umeclid 1 ea inhalation DAILY 07/01/24 06/30/24 History 62.5 mcg-vilant 25 mcg inhalat.powder (Trelegy Ellipta) icosapent ethyl 1 gram capsule 1 g PO BID 07/01/24 06/30/24 History linagliptin 5 mg tablet (Tradjenta) 5 mg PO DAILY 07/01/24 06/30/24 History rosuvastatin 20 mg tablet 20 mg PO QHS 07/01/24 06/30/24 History linezolid 600 mg tablet (Zyvox) 600 mg PO BID #18 tabs 07/07/24 Unknown Rx nystatin 100,000 unit/gram topical 1 applic topical TID #0 grams 07/07/24 Unknown Rx powder (Nyamyc) nystatin 100,000 unit/mL oral 100,000 unit PO DAILY #60 mL 07/07/24 Unknown Rx suspension oxycodone 5 mg capsule 5 mg PO Q4H PRN pain 2 days #12 07/07/24 Unknown Rx caps atorvastatin 40 mg tablet 40 mg PO QHS 07/13/24 Unknown History ipratropium 0.5 mg-albuterol 3 mg 3 ml inhalation Q6H 07/13/24 Unknown History (2.5 mg base)/3 mL nebulization soln tuberculin PPD 1 unit/0.1 mL 0.1 tb unit intradermal QHS health 07/13/24 Unknown History intradermal injection solution maintenance Allergy/AdvReac Type Severity Reaction Status Date / Time No Known Allergies Allergy Verified 07/13/24 17:01 Family History no significant family his Surgical History H/O esophagogastroduodenoscopy Hx of abdominal surgery Hx of endarterectomy (~2020) Social History Smoking Status: Former smoker Tobacco: How many years used: 50 ROS ROS ED ROS Narrative Unable to obtain from patient secondary to memory issues. Reported blood and clots from ostomy. EXAM Physical Exam Narrative Exam Narrative: Afebrile. Vital signs noted. Nontoxic-appearing. Cardiovascular examination reveals mild tachycardia. Lungs are clear to auscultation bilaterally anteriorly. Abdomen soft and nontender with positive ostomy bag. No guarding or rebound. Const Vital Signs: 07/13/24 16:59 07/13/24 18:58 07/13/24 19:59 Temperature 97.9 F Temperature Source Oral Pulse Rate 105 H 68 98 Respiratory Rate 16 17 20 H Blood Pressure 109/65 133/72 H Blood Pressure Mean 79 92 Pulse Ox 100 98 100 Oxygen Delivery Method Room Air Room Air Room Air 07/13/24 20:30 Temperature 97.9 F Temperature Source Pulse Rate 98 Respiratory Rate 20 H Blood Pressure 133/72 H Blood Pressure Mean 92 Pulse Ox 100 Oxygen Delivery Method MDM MDM MDM Narrative Medical decision making narrative: Differential diagnosis includes but not limited to diverticular bleeding versus AV malformation versus other bleeding in the GI tract. I reviewed his laboratory work and he has normal white count of 6.6, hemoglobin 8.4 which is down from 3 days ago from 12, drop of almost 4 g. Platelet count low at 126, but when compared to prior labs, he has chronic thrombocytopenia. BUN is elevated at 66 with creatinine of 2.20 but he does have history of chronic kidney disease. LFTs are grossly unremarkable. CO2 low at 17.9. I reviewed the radiology report of the CT of the abdomen pelvis, this was without contrast secondary to his elevated creatinine GFR, and there is no acute process. Given the drop of hemoglobin so significantly over 3 days, I discussed patient with the hospitalist. Additionally, his stoma bag was removed and emptied and he has dark maroon almost black liquid in the stoma bag. I discussed the patient with Dr. De La O who is familiar with the patient and states on one of his previous admissions, he had upper endoscopy and had upper GI bleeding. This is suspected with his elevated BUN as well. He would like him admitted to the PCU. Patient is in stable condition. History & Record Review Discussion w/independent historian: Patient Additional record(s) reviewed:: Prior inpatient record (Gastroenterology notes) and Prior labs Lab Data Attestation: I reviewed the patient's lab results. Labs: Laboratory Results - last 24 hr 07/13/24 17:50 WBC 6.6 RBC 2.80 L Hgb 8.4 L Hct 27.5 L MCV 98.2 H D MCH 30.0 MCHC 30.5 L D RDW Std Deviation 55.8 H RDW Coeff of Yanira 16.0 H Plt Count 126 L MPV 12.6 H Immature Gran % (Auto) 0.900 Neut % (Auto) 63.1 Lymph % (Auto) 27.8 Chaves % (Auto) 5.0 Eos % (Auto) 2.7 Baso % (Auto) 0.5 Absolute Neuts (auto) 4.1 Absolute Lymphs (auto) 1.82 Nucleated RBC % 0 Sodium 140 Potassium 4.8 Chloride 107 Carbon Dioxide 17.9 L Anion Gap 15 BUN 66 H Creatinine 2.20 H Estim Creat Clear Calc 33.63 L Est GFR (MDRD) Non-Af 31 L BUN/Creatinine Ratio 30.0 H Glucose 117 H Calcium 8.9 Total Bilirubin 0.53 AST 27 ALT 7 Alkaline Phosphatase 44 Total Protein 6.1 Albumin 3.4 Globulin 2.8 Albumin/Globulin Ratio 1.2 Radiography Diagnostic Testing: Clinical Impression(s) from Imaging Studies Abdomen/Pelvis CT 07/13/24 18:37 IMPRESSION: Left upper quadrant ileostomy. Cholelithiasis. Severe left renal atrophy likely from chronic renal artery stenosis or occlusion. Aortobifem bypass graft. Maddox catheter in collapsed bladder. Anasarca. Reading Location: [id number] Discharge Plan Dx/Rx/DC Orders Clinical Impression: Acute GI bleeding, History of colon cancer, Anemia Disposition Disposition: Acute Care Hospital [facility]
[2024-07-13 18:03] LABS: Absolute Lymphocyte Count 1.82 X10^3/uL (0.83-4.51); Absolute Neutrophil Count 4.1 X10^3/uL (2.0-7.7); Basophil# 0.03 X10^3/uL; Basophil% 0.5 % (0-1); Eosinophil# 0.18 X10^3/uL; Eosinophils% 2.7 % (0-5); Hematocrit 27.5 % (40-54); Hemoglobin 8.4 g/dL (13.0-16.5); Lymphocyte # 1.82 X10^3/ul (0.83-4.51); Lymphocyte % 27.8 % (19-41); Mean Corp Hgb Conc 30.5 g/dL (32-36); Mean Corpuscular Volume 98.2 fL (80-94); Mean Platelet Vol. 12.6 fl (6.2-12.0); Monocyte# 0.33 X10^3/uL; NRBC Flagged by Analyzer 0 % (0-5); Neutrophil # 4.13 X10^3/uL (2.7-7.7); Neutrophil % 63.1 % (47-70); Platelet Count 126 K/mm3 (150-450); RBC Distribution Width SD 55.8 fl (35.1-43.9); White Blood Count 6.6 K/mm3 (4.4-11.0)
[2024-07-13 18:18] LABS: ALB/GLOB Ratio 1.2 RATIO (0.9-2.4); AST(SGOT) 27 U/L (<=37); Alanine Aminotransfer ALT/SGPT 7 U/L (<=46); Albumin, Serum 3.4 g/dL (3.4-4.8); Alkaline Phosphatase 44 U/L (40-129); BUN 66 mg/dL (4-19); Calcium,Total 8.9 mg/dL (7.6-11.0); Carbon Dioxide 17.9 mmol/L (21.0-32.0); Chloride 107 mmol/L (98-108); EST Glomerular Filtration Rate 31 (>60); Estimated Creatinine Clearance 33.63 ml/min (50-250); Globulin 2.8 g/dL (2.2-4.2); Glucose 117 mg/dL (70-99); Potassium 4.8 mmol/L (3.3-5.1); Protein, Total 6.1 g/dL (5.9-8.4); Sodium Level 140 mmol/L (133-145); Total Bilirubin 0.53 mg/dL (0.00-1.30)
[2024-07-13 18:19] LABS: Anion Gap 15 (5-15)
--- NOTE | 2024-07-13 18:37 | CT_ITS ---
PROCEDURE: ABDOMEN/PELVIS WITHOUT CONT 07/13/2024 REASON FOR EXAM: GI BLEEDING TECHNIQUE: Abdomen and pelvis CT without intravenous contrast. Noncontrast technique limits evaluation of the abdominal and pelvic viscera. Coronal and Sagittal reconstruction series were provided. One or more dose reduction techniques were used (e.g., Automated exposure control, adjustment of the mA and/or kV according to patient size, use of iterative reconstruction technique). PATIENT PREPARATION: Per protocol ORAL CONTRAST TYPE: None. AMOUNT: mL FINDINGS: Lung bases: Mild dependent atelectasis Liver: Normal size. No obvious mass. Gallbladder: Several calcified gallstones. Spleen: Normal size. Pancreas: Normal size. No surrounding inflammation. Adrenals: Unremarkable. Kidneys: Normal right kidney. Severe left renal atrophy likely from chronic renal artery stenosis or occlusion. No renal or ureteral stone. Bladder: Maddox catheter in the collapsed bladder. Reproductive Organs: Calcifications in the prostate gland. Bowel: Left upper quadrant ileostomy. Appendix: The appendix is not identified. There is no inflammatory process identified in the right lower quadrant to suggest appendicitis. Lymph nodes: Unremarkable. Vasculature: Aortobifem bypass graft. 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 5 mm of anterolisthesis of L5 on S1 consistent with grade 1 spondylolisthesis. Edema of the subcutaneous fat consistent with anasarca. CT/Abdomen/Pelvis without Cont IMPRESSION: Left upper quadrant ileostomy. Cholelithiasis. Severe left renal atrophy likely from chronic renal artery stenosis or occlusio n. Aortobifem bypass graft. Maddox catheter in collapsed bladder. Anasarca. Reading Location: [id number]
[2024-07-13 18:58] VITALS: BP 133/72; PULSE 68; RESP 17; O2SAT 98
[2024-07-13 19:59] VITALS: PULSE 98; RESP 20; O2SAT 100
--- NOTE | 2024-07-13 20:21 | PCM.HP.STD ---
HPI - General General Date of Admission: 07/13/24 Date of Service: 07/13/24 Chief Complaint: Dark blood with clots in ostomy HPI Narrative EMELIA JOHNSON, is a 74 M who presented to [facility] ED on with dark blood with clots noted in ostomy bag. Patient was recently hospitalized here from 07/01-07/07, see discharge summary for further details. In short, presented at that time with sepsis suspected secondary to UTI in setting of chronic urinary retention as well as possible aspiration pneumonia. Had known dysphagia with esophageal stenosis and had poor swallowing on admit with concern for aspiration; EGD on 07/04 showed grade D erosive esophagitis with bleeding that was cauterized and benign-appearing esophageal stenosis that was dilated. Course complicated by severe left lower extremity swelling secondary to AV fistula, and vascular surgery completed angioplasty/stenting of left profundofemoral artery via left brachial cutdown on 07/06. Patient was ultimately stable for discharge to SNF on 07/07. Importantly, Eliquis was restarted on discharge and baby aspirin was also continued. Medical history is also significant for rectal cancer s/p chemoradiation with permanent colostomy. Staff at care home noted today that patient had dark blood with clots noted in his ostomy bag. He also appeared somewhat more fatigued than previous days so they brought him in for further evaluation. In the ED was found to have a hemoglobin of 8.4, down from 12.0 on 07/10. Creatinine 2.20, slightly up from baseline 1.5-1.6 but BUN significantly elevated at 66 concerning for upper GI bleed. Given these findings, patient was given a dose of IV Protonix and hospitalist was contacted for admission. I saw the patient at bedside in the ED. Patient was fatigued appearing but otherwise laying back comfortably in bed and in no acute distress. Notes that he feels slightly more fatigued today than previous days but denies any current pain or discomfort. Denies any GERD symptoms or upper abdominal/epigastric pain. No other acute concerns at this time. PENDING SALE TO [facility] Medical History Peripheral arterial disease with history of revascularization MRSA (methicillin resistant staph aureus) culture positive Wears glasses Low iron Stroke/cerebrovascular accident Former smoker Colostomy in place Family history of abdominal aortic aneurysm repair DVT (deep venous thrombosis) Enteritis Cholelithiasis Acidosis, lactic Encephalopathy due to infection Acute hypoxemic respiratory failure Complicated urinary tract infection Severe sepsis with acute organ dysfunction Aspiration into respiratory tract FIOR (acute kidney injury) Colon cancer Home Medications ?Medication ?Instructions ?Recorded ?Last Taken ?Type finasteride 5 mg tablet 5 mg PO DAILY prostate 06/22/23 06/30/24 History levothyroxine 100 mcg tablet 100 mcg PO DAILY@0600 #30 tabs 01/15/24 06/30/24 Rx pantoprazole 40 mg tablet,delayed 40 mg PO BID #60 tabs 01/15/24 06/30/24 Rx release albuterol sulfate 90 mcg/actuation 1 - 2 puff inhalation 4X/DAY PRN 02/22/24 Unknown History aerosol inhaler wheezing apixaban 5 mg tablet (Eliquis) 5 mg PO BID 02/22/24 06/30/24 History aspirin 81 mg tablet,delayed 81 mg PO DAILY 07/01/24 06/30/24 History release fluticasone fur. 100 mcg-umeclid 1 ea inhalation DAILY 07/01/24 06/30/24 History 62.5 mcg-vilant 25 mcg inhalat.powder (Trelegy Ellipta) icosapent ethyl 1 gram capsule 1 g PO BID 07/01/24 06/30/24 History linagliptin 5 mg tablet (Tradjenta) 5 mg PO DAILY 07/01/24 06/30/24 History rosuvastatin 20 mg tablet 20 mg PO QHS 07/01/24 06/30/24 History linezolid 600 mg tablet (Zyvox) 600 mg PO BID #18 tabs 07/07/24 Unknown Rx nystatin 100,000 unit/gram topical 1 applic topical TID #0 grams 07/07/24 Unknown Rx powder (Nyamyc) nystatin 100,000 unit/mL oral 100,000 unit PO DAILY #60 mL 07/07/24 Unknown Rx suspension oxycodone 5 mg capsule 5 mg PO Q4H PRN pain 2 days #12 07/07/24 Unknown Rx caps atorvastatin 40 mg tablet 40 mg PO QHS 07/13/24 Unknown History ipratropium 0.5 mg-albuterol 3 mg 3 ml inhalation Q6H 07/13/24 Unknown History (2.5 mg base)/3 mL nebulization soln tuberculin PPD 1 unit/0.1 mL 0.1 tb unit intradermal [facility] 07/13/24 Unknown History intradermal injection solution maintenance Allergy/AdvReac Type Severity Reaction Status Date / Time No Known Allergies Allergy Verified 07/13/24 17:01 Family History no significant family his Surgical History H/O esophagogastroduodenoscopy Hx of abdominal surgery Hx of endarterectomy (~2020) Social History Smoking Status: Former smoker Tobacco: How many years used: 50 ROS Constitutional Constitutional: Reports fatigue and weakness; Denies chills or fever(s) Eyes Eyes: Denies change in vision Cardiovascular Cardiovascular: Denies chest pain Respiratory/Chest Respiratory/Chest: Denies shortness of breath at rest Gastrointestinal Gastrointestinal: Reports melena; Denies abdominal pain, nausea or vomiting Musculoskeletal Musculoskeletal: Denies arthralgias or myalgias Neurologic Neurologic: Denies dizziness or headache(s) Vital Signs Vital Signs Vital Signs: 07/13/24 16:59 07/13/24 18:58 07/13/24 19:59 Temperature 97.9 F Temperature Source Oral Pulse Rate 105 H 68 98 Respiratory Rate 16 17 20 H Blood Pressure 109/65 133/72 H Blood Pressure Mean 79 92 Pulse Ox 100 98 100 Oxygen Delivery Method Room Air Room Air Room Air Weight Weight: 95.7 kg Body Mass Index (BMI) 31.1 Physical Exam Const alert and no apparent distress Constitutional Narrative: Elderly male, chronically ill-appearing, unkempt appearing, alert but answering questions with only a few short appropriate responses, otherwise sitting back comfortably in bed and in no acute distress. General Appearance: cooperative and comfortable HEENT normocephalic, head/scalp atraumatic, hearing grossly normal bilaterally, nasal mucous membranes and turbinates normal and moist oral mucous membranes Eyes PERRL, EOMs intact bilaterally and conjunctivae normal Neck full ROM Chest inspection of chest normal Resp normal respiratory effort, normal air movement, no use of accessory muscles and clear to auscultation bilaterally Cardio no murmurs and peripheral pulses 2+ throughout Cardio Narrative: Tachycardic, regular rhythm. GI normal to inspection, nondistended, normoactive bowel sounds, soft to palpation, non-tender and non-distended Back/Spine normal ROM Extremity Extremity Narrative: Significant swelling/bruising noted in left arm at recent surgical insertion site. Neuro moves all extremities and no focal motor deficits Psych mental status grossly normal Psych Narrative: Flat affect. Results Lab / Micro Data 07/13/24 17:50 07/13/24 17:50 Labs: Laboratory Results - last 24 hr 07/13/24 17:50: WBC 6.6, RBC 2.80 L, Hgb 8.4 L, Hct 27.5 L, MCV 98.2 H D, MCH 30.0, MCHC 30.5 L D, RDW Std Deviation 55.8 H, RDW Coeff of Yanira 16.0 H, Plt Count 126 L, MPV 12.6 H, Immature Gran % (Auto) 0.900, Neut % (Auto) 63.1, Lymph % (Auto) 27.8, [place]lin % (Auto) 5.0, Eos % (Auto) 2.7, Baso % (Auto) 0.5, Absolute Neuts (auto) 4.1, Absolute Lymphs (auto) 1.82, Nucleated RBC % 0, Sodium 140, Potassium 4.8, Chloride 107, Carbon Dioxide 17.9 L, Anion Gap 15, BUN 66 H, Creatinine 2.20 H, Estim Creat Clear Calc 33.63 L, Est GFR (MDRD) Non-Af 31 L, BUN/Creatinine Ratio 30.0 H, Glucose 117 H, Calcium 8.9, Total Bilirubin 0.53, AST 27, ALT 7, Alkaline Phosphatase 44, Total Protein 6.1, Albumin 3.4, Globulin 2.8, Albumin/Globulin Ratio 1.2 Imaging Radiology Impression Abdomen/Pelvis CT 07/13/24 18:37 IMPRESSION: Left upper quadrant ileostomy. Cholelithiasis. Severe left renal atrophy likely from chronic renal artery stenosis or occlusion. Aortobifem bypass graft. Maddox catheter in collapsed bladder. Anasarca. Reading Location: [id number] Assessment & Plan Assessment/Plan (1) Acute GI bleeding: (2) Anemia: PLAN: Plan Patient is a 74-year-old male who presented to [facility] ED on 07/13/24 with dark blood with clots noted in ostomy bag. 1. Suspected upper GI bleed with acute blood loss anemia, known erosive esophagitis with esophageal stenosis ? Admit under inpatient status to PCU. GI consulted. Recent EGD on 07/04 showed grade D erosive esophagitis with bleeding noted, chronic duodenitis and benign-appearing esophageal stenoses that were dilated. High likelihood of upper GI bleed after restarting Eliquis on discharge given hemoglobin drop from 12.0 to 8.4 and very elevated BUN. Maintain n.p.o. status for likely EGD and treat with IV PPI twice daily for now. Follow-up a.m. CBC. Hold Eliquis and aspirin for now. 2. Severe PAD with history of revascularization and recent left femoral arteriovenous fistula placement, history of LLE DVT ? Follows with vascular surgery. Had left femoral AV fistula placement done with Dr. Thompson on 07/06. Tolerated procedure well but does have significant left arm swelling with bruising noted. Left lower extremity with swelling improved from last admission. Holding Eliquis and aspirin as above and will need to discuss with vascular surgery on need for these going forward. 3. Acute on chronic debility ? PT/OT/case management consulted. Patient came from SNF and will presumably need to return to SNF on discharge. 4. Dysphagia ? Speech therapy consulted. Known history of dysphagia and speech therapy followed during prior admission. 5. Mild FIOR on CKD stage IIIb ? Creatinine 2.20 on admit, baseline around 1.4-1.6. Presume secondary to blood loss as noted above. IV fluid resuscitation given in ED, follow-up a.m. BMP and monitor urine output. 6. History of chronic urinary retention with chronic Maddox catheter, recent complicated UTI ? Patient with complicated UTI with MRSA during most recent admission. Completed course of p.o. linezolid on discharge. No need for further antibiotics at this time. Chronic medical conditions: ? History of CVA with residual left-sided weakness, hypertension, hyperlipidemia: Continue home statin. Holding home aspirin as noted above. ? Type 2 diabetes mellitus: Holding home linagliptin. Will treat with sliding scale insulin with meals while inpatient. ? Hypothyroidism: Continue home Synthroid. ? History of rectal cancer s/p chemotherapy and radiation therapy and resection of left colon and entire rectum with permanent colostomy placement in 2020: Continue outpatient follow-up with oncology. ? History of AAA without rupture: Outpatient follow-up. ? GERD: Treating with IV PPI twice daily as noted above. DVT prophylaxis: SCDs CODE STATUS: Full code, verified Expected disposition: Likely back to SNF, TBD Total clinical time spent by myself addressing the patient's medical issues, reviewing all the data, and collaborating with patient's care team: 75 minutes. Charges/Coding Visit Charges Inpatient E&M: 51003 Init Hosp L3
[2024-07-13 20:30] VITALS: BP 133/72; PULSE 98; RESP 20; TEMP 36.6; O2SAT 100
[2024-07-13 21:00] VITALS: BP 101/45; PULSE 103; RESP 25; O2SAT 96
[2024-07-13] MEDS: Pantoprazole Sodium 40 MG in 0.9% Normal Saline (100mL MB+) 100 ML 330 MG IV (21:05)
[2024-07-13 22:15] VITALS: BMI 29.1
[2024-07-13 22:18] VITALS: BP 118/72; PULSE 99; RESP 16; TEMP 36.6; O2SAT 94
[2024-07-13 23:04] LABS: Bedside Glucose 111 mg/dL (74-106)
[2024-07-14] VITALS (20 sets, daily range): BP systolic 80–140; BP diastolic 47–83; PULSE 63–107; RESP 16–28; TEMP 36.3–36.9; O2SAT 91–100; BMI 29.1
[2024-07-14 06:17] LABS: Bedside Glucose 131 mg/dL (74-106)
[2024-07-14 06:21] LABS: Hematocrit 20.6 % (40-54); Hemoglobin 6.6 g/dL (13.0-16.5); Mean Corpuscular Hgb 30.4 pg (27.0-32.0); Mean Corpuscular Volume 94.9 fL (80-94); Mean Platelet Vol. 12.1 fl (6.2-12.0); Platelet Count 140 K/mm3 (150-450); RBC Distribution Width CV 16.4 % (11.6-14.6); RBC Distribution Width SD 55.3 fl (35.1-43.9); Red Blood Count 2.17 M/mm3 (4.6-6.2); White Blood Count 7.3 K/mm3 (4.4-11.0)
[2024-07-14 07:09] LABS: Anion Gap 12 (5-15); BUN 72 mg/dL (4-19); BUN/Creat Ratio 34.1 RATIO (10-20); Calcium,Total 8.6 mg/dL (7.6-11.0); Carbon Dioxide 20.1 mmol/L (21.0-32.0); Chloride 110 mmol/L (98-108); Creatinine, Serum 2.12 mg/dL (0.70-1.20); EST Glomerular Filtration Rate 32 (>60); Estimated Creatinine Clearance 31.76 ml/min (50-250); Glucose 141 mg/dL (70-99); Potassium 4.3 mmol/L (3.3-5.1); Sodium Level 142 mmol/L (133-145)
[2024-07-14] MEDS: Ipratropium/Albuterol Sulfate 3 ML AMPUL.NEB INHALATION ×2 (07:29→19:30)
[2024-07-14] MEDS: Budesonide Respules 0.5 MG/2 ML AMPUL.NEB. INHALATION ×2 (07:29→19:30)
--- NOTE | 2024-07-14 07:46 | PCM.PN.HOSP ---
Reason for Visit Reason for Visit: Diagnoses Anemia, unspecified (07/13/24) Gastrointestinal hemorrhage, unspecified (07/13/24) Objective Data Objective Data Vital Signs: Vital Signs Temp Pulse Resp BP Pulse Ox O2 Del Method 97.9 F 98 16 108/47 L 98 Room Air 07/14/24 04:00 07/14/24 04:00 07/14/24 04:00 07/14/24 04:00 07/14/24 04:00 07/13/24 22:30 Oxygen Delivery Method Room Air Weight: 186 lb 4 oz Body Mass Index (BMI) 29.1 Intake & Output: Intake and Output for Last 24 Hours 07/12/24 07/13/24 07/14/24 23:59 23:59 23:59 Intake Total 110 / 110 Output Total 900 / 900 Balance 110 / -190 -900 / -900 Lab / Micro Data 07/14/24 05:18 07/14/24 05:18 Labs: Laboratory Results - last 24 hr 07/13/24 17:50: WBC 6.6, RBC 2.80 L, Hgb 8.4 L, Hct 27.5 L, MCV 98.2 H D, MCH 30.0, MCHC 30.5 L D, RDW Std Deviation 55.8 H, RDW Coeff of Yanira 16.0 H, Plt Count 126 L, MPV 12.6 H, Immature Gran % (Auto) 0.900, Neut % (Auto) 63.1, Lymph % (Auto) 27.8, Webb % (Auto) 5.0, Eos % (Auto) 2.7, Baso % (Auto) 0.5, Absolute Neuts (auto) 4.1, Absolute Lymphs (auto) 1.82, Nucleated RBC % 0, Sodium 140, Potassium 4.8, Chloride 107, Carbon Dioxide 17.9 L, Anion Gap 15, BUN 66 H, Creatinine 2.20 H, Estim Creat Clear Calc 33.63 L, Est GFR (MDRD) Non-Af 31 L, BUN/Creatinine Ratio 30.0 H, Glucose 117 H, Calcium 8.9, Total Bilirubin 0.53, AST 27, ALT 7, Alkaline Phosphatase 44, Total Protein 6.1, Albumin 3.4, Globulin 2.8, Albumin/Globulin Ratio 1.2 07/13/24 22:45: POC Glucose 111 H 07/14/24 05:18: WBC 7.3, RBC 2.17 L, Hgb 6.6 L, Hct 20.6 L, MCV 94.9 H, MCH 30.4, MCHC 32.0, RDW Std Deviation 55.3 H, RDW Coeff of Yanira 16.4 H, Plt Count 140 L, MPV 12.1 H, Sodium 142, Potassium 4.3, Chloride 110 H, Carbon Dioxide 20.1 L, Anion Gap 12, BUN 72 H, Creatinine 2.12 H, Estim Creat Clear Calc 31.76 L, Est GFR (MDRD) Non-Af 32 L, BUN/Creatinine Ratio 34.1 H, Glucose 141 H, Calcium 8.6 07/14/24 05:58: POC Glucose 131 H Radiography Diagnostic Testing: Radiology Impression Abdomen/Pelvis CT 07/13/24 18:37 IMPRESSION: Left upper quadrant ileostomy. Cholelithiasis. Severe left renal atrophy likely from chronic renal artery stenosis or occlusion. Aortobifem bypass graft. Maddox catheter in collapsed bladder. Anasarca. Reading Location: [facility] Physical Exam Narrative Patient has significant swelling/bruising noted in left arm at recent surgical insertion site for angiogram for left lower extremity AV fistula, angioplasty and stent of left profundofemoral artery Seen and examined. General: Alert, Oriented x3, Cooperative HEENT: Atraumatic, PERRLA, EOMI, Normocephalic Oral: No Gingival or Mucosal Lesions/ Ulcerations Neck: Supple, No JVD, Negative Carotid Bruits Chest wall/Lungs: Air entry diminished in bilateral lung bases. No crepitation/rhonchi Cardiovascular: Sinus rhythm, Normal S1, Normal S2, systolic murmur. Decreased pulsation in the left lower extremity, PT/DP probably not palpable because of edema Abdomen: Bowel Sounds Present, Soft, Non Tender, Non-Distended : No dysuria. No renal angle tenderness. No suprapubic tenderness. Extremities: Left lower extremity edematous capillary Refill Less than 3 Seconds Skin: No rashes, No breakdown Musculoskeletal: No Tenderness to Palpation of Joints or Extremities Neurological: Cranial nerves II-XII grossly intact, DTR 2+/4. No acute focal neurological deficit. Psych/Mental Status: Flat affect Assessment & Plan Assessment/Plan (1) Acute GI bleeding: (2) Anemia: PLAN: Plan Patient is a 74-year-old male who presented to [facility] ED on 07/13/24 with dark blood with clots noted in ostomy bag. Patient denies abdominal pain nausea or vomiting. 1. Acute upper GI bleed with acute blood loss anemia, known erosive esophagitis with esophageal stenosis ? Admit under inpatient status to PCU. GI consulted. Recent EGD on 07/04 showed grade D erosive esophagitis with bleeding noted, chronic duodenitis and benign-appearing esophageal stenoses that were dilated. High likelihood of upper GI bleed after restarting Eliquis on discharge given hemoglobin drop from 12.0 to 8.4 and very elevated BUN. Maintain n.p.o. status for likely EGD and treat with IV PPI twice daily for now. Follow-up a.m. CBC. Hold Eliquis and aspirin for now. 07/14: EGD done today. Impression: - Esophageal ulcer actively bleeding. Injected. Treated with argon plasma coagulation (APC). - Esophageal ulcer actively bleeding. Clip was placed. Clip director advanced: [employer]. - Red blood in the entire stomach. 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 Treated with argon plasma coagulation (APC). - No specimens collected. Continue IV PPI every 12 hourly. H&H 6.6/.6. 1 unit of PRBC ordered.. Poor IV access therefore required midline. Baseline hemoglobin 11 to 12 g. 2. Severe PAD with history of revascularization and recent left femoral arteriovenous fistula placement, history of LLE DVT ? Follows with vascular surgery. Had left femoral AV fistula placement done with Dr. Thompson on 07/06. Tolerated procedure well but does have significant left arm swelling with bruising noted. Left lower extremity with swelling improved from last admission. Holding Eliquis and aspirin as above and will need to discuss with vascular surgery on need for these going forward. 3. Acute on chronic debility ? PT/OT/case management consulted. Patient came from SNF and will presumably need to return to SNF on discharge. 4. Dysphagia ? Speech therapy consulted. Known history of dysphagia and speech therapy followed during prior admission. 5. Mild FIOR on CKD stage IIIb ? Creatinine 2.20 on admit, baseline around 1.4-1.6. Presume secondary to blood loss as noted above. IV fluid resuscitation given in ED, follow-up a.m. BMP and monitor urine output. 07/14: BUN/creatinine 72/2.12. 6. History of chronic urinary retention with chronic Maddox catheter, recent complicated UTI ? Patient with complicated UTI with MRSA during most recent admission. Completed course of p.o. linezolid on discharge. No need for further antibiotics at this time. Chronic medical conditions: ? History of CVA with residual left-sided weakness, hypertension, hyperlipidemia: Continue home statin. Holding home aspirin as noted above. ? Type 2 diabetes mellitus: Holding home linagliptin. Will treat with sliding scale insulin with meals while inpatient. ? Hypothyroidism: Continue home Synthroid. ? History of rectal cancer s/p chemotherapy and radiation therapy and resection of left colon and entire rectum with permanent colostomy placement in 2020: Continue outpatient follow-up with oncology. 07/14: There was black tarry liquidy stool in the bag. ? History of AAA without rupture: Outpatient follow-up. ? GERD: Treating with IV PPI twice daily as noted above. DVT prophylaxis: SCDs CODE STATUS: Full code, verified Expected disposition: Likely back to SNF, TBD Charges/Coding Visit Charges Inpatient E&M: 89082 Subs Hosp L2
--- NOTE | 2024-07-14 10:18 | CASEMGMT ---
Discharge Planning Up[facility] with note that pt may return over the weekend. Green sheet and transport form placed on chart. Nadine Betts DC Planning Asst.
--- NOTE | 2024-07-14 10:45 | CASEMGMT ---
YANDY called patient's daughter Shaunna and confirmed patient's plan is to go back to [facility] at discharge. Gosia Leon MOTOR OPERATOR TUNG
[2024-07-14] MEDS: Pantoprazole Sodium 40 MG in 0.9% Normal Saline (100mL MB+) 100 ML 330 MG IV ×2 (11:00→21:45)
[2024-07-14 11:44] LABS: Bedside Glucose 134 mg/dL (74-106)
--- NOTE | 2024-07-14 12:24 | PCM.PRE.AN2 ---
ASA Classification* ASA Classification ASA Classification: 3 and E Assessment & Plan Anesthesia* Anesthesia Assessment Anesthesia Assessment: Discussed sedation and/or anesthesia options, risks, benefits, and alternatives with patient/parents/legal guardian/POA. Questions invited. The patient/parents/legal guardian/POA seems to understand and agrees to proceed with anesthesia plan. Reviewed the physical assessment, medical history, allergy history and patient home medications list prior to surgery/procedure/anesthetic and documented any changes. Performed airway and anesthesia risk assessments. Anesthesia Type Anesthesia Type: MAC (Recieving blood for low hemoglobin) Anesthesia Focused Assessment* Temperature: 97.3 F Pulse Rate: 98 Blood Pressure: 92/62 Respiratory Rate: 22 Pulse Ox: 97 Airway Assessment Mouth opens: >3 cm Mallampati Score: II Focused Labs Anesthesia Preop lab: CBC WBC 7.3 K/mm3 (4.4-11.0) 07/14/24 05:18 07/14/24 RBC 2.17 M/mm3 (4.6-6.2) L 07/14/24 05:18 07/14/24 Hgb 6.6 g/dL (13.0-16.5) L 07/14/24 05:18 07/14/24 Hct 20.6 % (40-54) L 07/14/24 05:18 07/14/24 Plt Count 140 K/mm3 (150-450) L 07/14/24 05:18 07/14/24 CHEMISTRY Potassium 4.3 mmol/L (3.3-5.1) 07/14/24 05:18 07/14/24 Sodium 142 mmol/L (133-145) 07/14/24 05:18 07/14/24 Magnesium 1.9 mg/dL (1.5-2.2) 07/05/24 04:07/05/24 Phosphorus 3.3 mg/dL (2.7-4.5) 07/05/24 04:07/05/24 BUN 72 mg/dL (4-19) H 07/14/24 05:18 07/14/24 Creatinine 2.12 mg/dL (0.70-1.20) H 07/14/24 05:18 07/14/24 Glucose 141 mg/dL (70-99) H 07/14/24 05:18 07/14/24 POC Glucose 134 mg/dL (74-106) H 07/14/24 11:26 07/14/24 TSH 1.360 uIU/mL (0.300-4.200) 07/10/24 04:30 07/10/24 COAG PT 19.3 SECONDS (11.7-14.9) H 01/10/24 17:00 01/10/24 Pre-Assessment Diagnosis/Proposed Procedure Planned Operative Procedure(s): EGD Anesthesia History Anesthesia History - sales agent trading stamps: Anesthesia History - sales agent trading stamps Hx Hospitalization Yes: UTI- OCT, [facility] 02/22/24 09:14 Any Problems With Anesthesia No 07/14/24 10:59 Cholinesterase deficiency No 07/14/24 10:59 You/Your Family Experience No 07/14/24 10:59 fever (hyperthermia) with Relationship Recent Exposure to Contagious No 07/14/24 10:59 Disease Does patient have nerve No 07/14/24 10:59 stimulator Patient instructed to have No 07/14/24 10:59 device shut off --Does patient have Pacemaker No 07/14/24 11:38 or ICD? When Was Last Pacemaker Check QUESTION #4 FULL TEXT: You/Your Family Experience fever (hyperthermia) with Anesthesia Last Oral Intake Last Oral intake: Last Oral Intake NPO since 00:00 07/14/24 11:38 Meds taken in AM with sips of water? Meds patient instructed to take am of surgery PONV PONV - sales agent trading stamps: PONV - sales agent trading stamps Female HX of Motion Sickness HX of N/V After Surgery Non-Smoker Duration of Surgery greater than 60 minutes Number of Risk Factors PONV Score Height & Weight Height & Weight: Anesthesia: Height & Weight Height 5 ft 7 in 07/14/24 11:38 Weight: 84.482 kg 07/14/24 11:38 Body Mass Index (BMI) 29.1 07/14/24 11:38 Respiratory Assessment Respiratory Assessment - sales agent trading stamps: Respiratory Tract Infection Hx - sales agent trading stamps Hx Respiratory Tract Infection No 07/14/24 10:59 STOP Sleep Apnea STOP Sleep Apnea - sales agent trading stamps: STOP Sleep Apnea - sales agent trading stamps Hx Hypertension No 07/14/24 12:20 Hx Sleep Apnea No 07/13/24 22:15 CPAP BIPAP Do you snore loudly (louder No 07/13/24 22:15 than talking or can be heard Do you often feel tired/ Yes 07/13/24 22:15 fatigued/ sleepy during daytime? Has anyone observed you stop No 07/13/24 22:15 breathing during sleep? STOP Results Negative 07/13/24 22:15 QUESTION #5 FULL TEXT : Do you snore loudly (louder than talking or can be heard through closed doors)? 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 Specify any problems Hx of Preganancy in last 3 N/A 07/13/24 22:15 Months Nurse Filling Out Transfusion [id number] 07/13/24 22:15 & Questions: Date: 07/13/24 07/13/24 22:15 Time: 22:23 07/13/24 22:15 Patient unable to answer at this time (ie. confused, unrespo /Reproduction History /Reproductive History - sales agent trading stamps: /Reproductive Hx- sales agent trading stamps Hx Now No 07/14/24 10:59 Gestational Age (in weeks): EDC: Hx Hx Para Hx Section SAB No 07/14/24 10:59 Active Medications Active Medications: Current Medications Generic Name Dose Route Start Last Admin Trade Name Freq PRN Reason Stop Dose Admin Acetaminophen 650 mg 07/13/24 22:38 Acetaminophen 325 Mg Tablet PO Q6H PRN PRN Pain 1-10 Or Fever>100.7 Albuterol Sulfate 2.5 mg 07/13/24 23:16 Albuterol 2.5 Mg/3 Ml Vial.Neb. INHALATION Q4H PRN PRN wheezing Albuterol/Ipratropium 3 ml 07/13/24 23:15 07/14/24 07:29 Ipratropium/Albuterol Sulfate 3 Ml Ampul.Neb INHALATION 3 ml Q6HWA.RT CJ Administration Atorvastatin Calcium 40 mg 07/13/24 22:38 07/13/24 23:08 Atorvastatin Calcium 40 Mg Tablet PO Not Given QHS CJ Budesonide 0.5 mg 07/13/24 23:15 07/14/24 07:29 Budesonide Respules 0.5 Mg/2 Ml Ampul.Neb. INHALATION 0.5 mg Q12H.RT CJ Administration Finasteride 5 mg 07/14/24 10:00 07/14/24 11:19 Finasteride 5 Mg Tablet PO Not Given DAILY CJ Glucagon 1 mg 07/13/24 22:38 Glucagon 1 Mg/Ml Syringe IM X1 PRN Hypoglycemia Protocol Sodium Chloride 100 mls @ 15 mls/hr 07/13/24 22:26 IV .Q6H40M PRN Saline Flush Sodium Chloride 100 mls @ 15 mls/hr 07/13/24 22:26 IV .Q6H40M PRN Additional IVPB Infusion Dextrose 250 mls @ 0 mls/hr 07/13/24 22:38 Dextrose 10%-Water IV .Q0M PRN HYPOGLYCEMIA Protocol As Directed Pantoprazole Sodium 40 mg/ 110 mls @ 330 mls/hr 07/14/24 10:00 07/14/24 11:21 Sodium Chloride IV Infused Q12 CJ Infusion Insulin Human Lispro 0 unit 07/13/24 22:38 07/14/24 11:22 Insulin Lispro 100 Unit/Ml Insuln.Pen SC Not Given ACHS CJ Protocol Levothyroxine Sodium 100 mcg 07/14/24 06:00 07/14/24 06:15 Levothyroxine 100 Mcg Tablet PO Not Given DAILY@0600 CJ Melatonin 3 mg 07/13/24 22:38 Melatonin 3 Mg Tablet PO QHS PRN PRN INSOMNIA Ondansetron HCl 4 mg 07/13/24 22:38 Ondansetron 4 Mg/2 Ml Vial IV Q8H PRN PRN NAUSEA/VOMITING Sodium Chloride 10 - 40 ml 07/13/24 22:26 0.9% Saline Lock 10 Ml Syringe IV UD PRN SALINE FLUSH PFSH Medical History Peripheral arterial disease with history of revascularization MRSA (methicillin resistant staph aureus) culture positive Wears glasses Low iron Stroke/cerebrovascular accident Former smoker Colostomy in place Family history of abdominal aortic aneurysm repair DVT (deep venous thrombosis) Enteritis Cholelithiasis Acidosis, lactic Encephalopathy due to infection Acute hypoxemic respiratory failure Complicated urinary tract infection Severe sepsis with acute organ dysfunction Aspiration into respiratory tract FIOR (acute kidney injury) Colon cancer Home Medications ?Medication ?Instructions ?Recorded ?Last Taken ?Type finasteride 5 mg tablet 5 mg PO DAILY prostate 06/22/23 06/30/24 History levothyroxine 100 mcg tablet 100 mcg PO DAILY@0600 #30 tabs 01/15/24 06/30/24 Rx pantoprazole 40 mg tablet,delayed 40 mg PO BID #60 tabs 01/15/24 06/30/24 Rx release albuterol sulfate 90 mcg/actuation 1 - 2 puff inhalation 4X/DAY PRN 02/22/24 Unknown History aerosol inhaler wheezing apixaban 5 mg tablet (Eliquis) 5 mg PO BID 02/22/24 06/30/24 History aspirin 81 mg tablet,delayed 81 mg PO DAILY 07/01/24 06/30/24 History release fluticasone fur. 100 mcg-umeclid 1 ea inhalation DAILY 07/01/24 06/30/24 History 62.5 mcg-vilant 25 mcg inhalat.powder (Trelegy Ellipta) icosapent ethyl 1 gram capsule 1 g PO BID 07/01/24 06/30/24 History linagliptin 5 mg tablet (Tradjenta) 5 mg PO DAILY 07/01/24 06/30/24 History rosuvastatin 20 mg tablet 20 mg PO QHS 07/01/24 06/30/24 History linezolid 600 mg tablet (Zyvox) 600 mg PO BID #18 tabs 07/07/24 Unknown Rx nystatin 100,000 unit/gram topical 1 applic topical TID #0 grams 07/07/24 Unknown Rx powder (Nyamyc) nystatin 100,000 unit/mL oral 100,000 unit PO DAILY #60 mL 07/07/24 Unknown Rx suspension oxycodone 5 mg capsule 5 mg PO Q4H PRN pain 2 days #12 07/07/24 Unknown Rx caps atorvastatin 40 mg tablet 40 mg PO QHS 07/13/24 Unknown History ipratropium 0.5 mg-albuterol 3 mg 3 ml inhalation Q6H 07/13/24 Unknown History (2.5 mg base)/3 mL nebulization soln tuberculin PPD 1 unit/0.1 mL 0.1 tb unit intradermal QHS health 07/13/24 Unknown History intradermal injection solution maintenance Allergy/AdvReac Type Severity Reaction Status Date / Time No Known Allergies Allergy Verified 07/13/24 17:01 Family History no significant family his Surgical History H/O esophagogastroduodenoscopy Hx of abdominal surgery Hx of endarterectomy (~2020) Social History Smoking Status: Former smoker Tobacco: How many years used: 50 Review of Systems (Anesthesia) ROS Narrative System reviewed and no additional complaints, except as documented.
--- NOTE | 2024-07-14 13:10 | HP.PCM_ITS ---
HPI - General General Date of Admission: 07/13/24 Date of Service: 07/14/24 Chief Complaint: Dark blood with clots in ostomy HPI Narrative EMELIA JOHNSON, is a 74 M who presented to [facility] ED on with dark blood with clots noted in ostomy bag. Patient was recently hospitalized here from 07/01-07/07, see discharge summary for further details. In short, presented at that time with sepsis suspected secondary to UTI in setting of chronic urinary retention as well as possible aspiration pneumonia. He has known dysphagia with esophageal stenosis and had poor swallowing on admit with concern for aspiration; EGD on 07/04 showed grade D erosive esophagitis with bleeding that was cauterized and benign-appearing esophageal stenosis that was dilated. Course complicated by severe left lower extremity swelling secondary to AV fistula, and vascular surgery completed angioplasty/stenting of left profundofemoral artery via left brachial cutdown on 07/06. Patient was ultimately stable for discharge to SNF on 07/07. Importantly, Eliquis was restarted on discharge and baby aspirin was also continued. Medical history is also significant for rectal cancer s/p chemoradiation with permanent colostomy. Staff at half-way noted today that patient had dark blood with clots noted in his ostomy bag. He also appeared somewhat more fatigued than previous days so they brought him in for further evaluation. In the ED was found to have a hemoglobin of 8.4, down from 12.0 on 07/10. Creatinine 2.20, slightly up from baseline 1.5-1.6 but BUN significantly elevated at 66 concerning for upper GI bleed. [facility] Medical History Peripheral arterial disease with history of revascularization MRSA (methicillin resistant staph aureus) culture positive Wears glasses Low iron Stroke/cerebrovascular accident Former smoker Colostomy in place Family history of abdominal aortic aneurysm repair DVT (deep venous thrombosis) Enteritis Cholelithiasis Acidosis, lactic Encephalopathy due to infection Acute hypoxemic respiratory failure Complicated urinary tract infection Severe sepsis with acute organ dysfunction Aspiration into respiratory tract FIOR (acute kidney injury) Colon cancer Home Medications ?Medication ?Instructions ?Recorded ?Last Taken ?Type finasteride 5 mg tablet 5 mg PO DAILY prostate 06/2106/30/24 History levothyroxine 100 mcg tablet 100 mcg PO DAILY@0600 #30 tabs 01/15/24 06/30/24 Rx pantoprazole 40 mg tablet,delayed 40 mg PO BID #60 tab s 01/15/24 06/30/24 Rx release albuterol sulfate 90 mcg/actuation 1 - 2 puff inhalati on 4X/DAY PRN 02/22/24 Unknown History aerosol inhaler wheezing apixaban 5 mg tablet (Eliquis) 5 mg PO BID 02/22/24 History aspirin 81 mg tablet,delayed 81 mg PO DAILY 07/01/24 0 06/30/24 History release fluticasone fur. 100 mcg-umeclid 1 ea inhalation DAILY 07/01/24 06/30/24 History 62.5 mcg-vilant 25 mcg inhalat.powder (Trelegy Ellipta) icosapent ethyl 1 gram capsule 1 g PO BID 07/01/2407/21 History linagliptin 5 mg tablet (Tradjenta) 5 mg PO DAILY 08/2006/30/24 History rosuvastatin 20 mg tablet 20 mg PO QHS 07/01/24 History linezolid 600 mg tablet (Zyvox) 600 mg PO BID #18 tabs 07/07/24 Unknown Rx nystatin 100,000 unit/gram topical 1 applic topical TI D #0 grams 07/07/24 Unknown Rx powder (Nyamyc) nystatin 100,000 unit/mL oral 100,000 unit PO DAILY #6 0 mL 07/07/24 Unknown Rx suspension oxycodone 5 mg capsule 5 mg PO Q4H PRN pain 2 days #12 07/07/24 Unknown Rx caps atorvastatin 40 mg tablet 40 mg PO QHS 07/13/24 Unknow n History ipratropium 0.5 mg-albuterol 3 mg 3 ml inhalation Q6H 07/13/24 Unknown History (2.5 mg base)/3 mL nebulization soln tuberculin PPD 1 unit/0.1 mL 0.1 tb unit intradermal Q health 07/13/24 Unknown History intradermal injection solution maintenance Allergy/AdvReac Type Severity Reaction Status Date / Time No Known Allergies Allergy Verified 07/13/24 17:01 Family History no significant family his Surgical History H/O esophagogastroduodenoscopy Hx of abdominal surgery Hx of endarterectomy (~2020) Social History Smoking Status: Former smoker Tobacco: How many years used: 50 ROS Constitutional Constitutional: Reports fatigue and weakness; Denies chills or fever(s) Eyes Eyes: Denies change in vision Cardiovascular Cardiovascular: Denies chest pain Respiratory/Chest Respiratory/Chest: Denies shortness of breath at rest Gastrointestinal Gastrointestinal: Reports melena; Denies abdominal pain, nausea or vomiting Musculoskeletal Musculoskeletal: Denies arthralgias or myalgias Neurologic Neurologic: Denies dizziness or headache(s) Vital Signs Vital Signs Vital Signs: 07/13/24 16:59 07/13/24 18:58 07/13/24 19:59 Temperature 97.9 F Temperature Source Oral Pulse Rate 105 H 68 98 Respiratory Rate 16 17 20 H Respiratory Effort Respiratory Depth Respiratory Pattern Blood Pressure 109/65 133/72 H Blood Pressure Mean 79 92 Blood Pressure Source Blood Pressure Position Blood Pressure Location Pulse Ox 100 98 100 Oxygen Delivery Method Room Air Room Air Room Air 07/13/24 20:30 07/13/24 21:00 07/13/24 22:18 Temperature 97.9 F 97.9 F Temperature Source Temporal Pulse Rate 98 103 H 99 Respiratory Rate 20 H 25 H 16 Respiratory Effort Respiratory Depth Respiratory Pattern Blood Pressure 133/72 H 101/45 L 118/72 Blood Pressure Mean 92 63 87 Blood Pressure Source Monitor Blood Pressure Position Semi-Fowlers Blood Pressure Location Right Arm Pulse Ox 100 96 94 Oxygen Delivery Method Room Air Room Air 07/13/24 22:30 07/14/24 04:00 07/14/24 07:29 Temperature 97.9 F Temperature Source Temporal Pulse Rate 98 63 Respiratory Rate 16 17 Respiratory Effort Normal Non-Labored Respiratory Depth Normal Respiratory Pattern Normal Normal Blood Pressure 108/47 L Blood Pressure Mean 67 Blood Pressure Source Monitor Blood Pressure Position Supine Blood Pressure Location Right Arm Pulse Ox 98 Oxygen Delivery Method Room Air 07/14/24 07:29 07/14/24 07:55 07/14/24 07:56 Temperature 97.6 F L Temperature Source Temporal Pulse Rate 98 Respiratory Rate 24 H Respiratory Effort Non-Labored Respiratory Depth Normal Respiratory Pattern Tachypnea Blood Pressure 107/63 Blood Pressure Mean 77 Blood Pressure Source Monitor Blood Pressure Position Semi-Fowlers Blood Pressure Location Right Arm Pulse Ox 96 100 Oxygen Delivery Method Room Air Room Air Room Air 07/14/24 10:29 07/14/24 11:31 07/14/24 11:38 Temperature 97.5 F L 97.5 F L Temperature Source Oral Oral Pulse Rate 96 99 99 Respiratory Rate 22 H 22 H Respiratory Effort Respiratory Depth Respiratory Pattern Blood Pressure 90/47 L 90/47 L Blood Pressure Mean 61 61 Blood Pressure Source Monitor Monitor Blood Pressure Position Semi-Fowlers Semi-Fowlers Blood Pressure Location Right Arm Right Arm Pulse Ox 97 97 Oxygen Delivery Method Room Air Room Air 07/14/24 11:46 07/14/24 12:24 07/14/24 12:46 Temperature 97.3 F L 97.3 F L 97.4 F L Temperature Source Oral Temporal Pulse Rate 98 98 99 Respiratory Rate 22 H 22 H 16 Respiratory Effort Respiratory Depth Respiratory Pattern Blood Pressure 92/62 92/62 110/71 Blood Pressure Mean 72 84 Blood Pressure Source Monitor Monitor Blood Pressure Position Semi-Fowlers Semi-Fowlers Blood Pressure Location Right Arm Right Arm Pulse Ox 97 97 91 Oxygen Delivery Method Room Air Room Air Weight Weight: 186 lb 4.015 oz Body Mass Index (BMI) 29.1 Physical Exam Const alert and no apparent distress Constitutional Narrative: Elderly male, chronically ill-appearing, General Appearance: cooperative and comfortable HEENT normocephalic, head/scalp atraumatic, hearing grossly normal bilaterally, nasal mucous membranes and turbinates normal and moist oral mucous membranes Eyes PERRL, EOMs intact bilaterally and conjunctivae normal Neck full ROM Chest inspection of chest normal Resp normal respiratory effort, normal air movement, no use of accessory muscles and clear to auscultation bilaterally Cardio no murmurs and peripheral pulses 2+ throughout Cardio Narrative: Tachycardic, regular rhythm. GI normal to inspection, nondistended, normoactive bowel sounds, soft to palpation, non-tender and non-distended Back/Spine normal ROM Extremity Extremity Narrative: Significant swelling/bruising noted in left arm at recent surgical insertion site. Neuro moves all extremities and no focal motor deficits Psych mental status grossly normal Psych Narrative: Flat affect. Results Lab / Micro Data 07/14/24 05:18 07/14/24 05:18 Labs: Laboratory Results - last 24 hr 07/13/24 17:50: WBC 6.6, RBC 2.80 L, Hgb 8.4 L, Hct 27.5 L, MCV 98.2 H D, MCH 30.0, MCHC 30.5 L D, RDW Std Deviation 55.8 H, RDW Coeff of Yanira 16.0 H, Plt Count 126 L, MPV 12.6 H, Immature Gran % (Auto) 0.900, Neut % (Auto) 63.1, Lymph % (Auto) 27.8, [place] % (Auto) 5.0, Eos % (Auto) 2.7, Baso % (Auto) 0.5, Absolute Neuts (auto) 4.1, Absolute Lymphs (auto) 1.82, Nucleated RBC % 0, Sodium 140, Potassium 4.8, Chloride 107, Carbon Dioxide 17.9 L, Anion Gap 15, BUN 66 H, C reatinine 2.20 H, Estim Creat Clear Calc 33.63 L, Est GFR (MDRD) Non-Af 31 L, B UN/Creatinine Ratio 30.0 H, Glucose 117 H, Calcium 8.9, Total Bilirubin 0.53, AST 27, ALT 7, Alkaline Phosphatase 44, Total Protein 6.1, Albumin 3.4, Globulin 2.8, Albumin/Globulin Ratio 1.2 07/13/24 22:45: POC Glucose 111 H 07/14/24 05:18: WBC 7.3, RBC 2.17 L, Hgb 6.6 L, Hct 20.6 L, MCV 94.9 H, MCH 30.4, MCHC 32.0, RDW Std Deviation 55.3 H, RDW Coeff of Yanira 16.4 H, Plt Count 140 L, MPV 12.1 H, Sodium 142, Potassium 4.3, Chloride 110 H, Carbon Dioxide 20.1 L, Anion Gap 12, BUN 72 H, Creatinine 2.12 H, Estim Creat Clear Calc 31.76 L, Est GFR (MDRD) Non-Af 32 L, BUN/Creatinine Ratio 34.1 H, Glucose 141 H, Calcium 8.6 07/14/24 05:58: POC Glucose 131 H 07/14/24 07:58: Blood Type O POSITIVE, Antibody Screen NEGATIVE, Crossmatch See Detail 07/14/24 11:26: POC Glucose 134 H Imaging Radiology Impression Abdomen/Pelvis CT 07/13/24 18:37 IMPRESSION: Left upper quadrant ileostomy. Cholelithiasis. Severe left renal atrophy likely from chronic renal artery stenosis or occlusion. Aortobifem bypass graft. Maddox catheter in collapsed bladder. Anasarca. Reading Location: [id number] Assessment & Plan Assessment/Plan (1) Acute GI bleeding: (2) Anemia: PLAN: Plan Patient is a 74-year-old male who presented to [facility] ED on 07/13/24 with dark blood with clots noted in ostomy bag. Suspected upper GI bleed with acute blood loss anemia, known erosive esophagitis with esophageal stenosis ? Recent EGD on 07/04 showed grade D erosive esophagitis with bleeding noted, chronic duodenitis and benign-appearing esophageal stenoses that were dilated. High likelihood of upper GI bleed after restarting Eliquis on discharge given hemoglobin drop from 12.0 to 8.4 and very elevated BUN. Maintain n.p.o. status for likely EGD and treat with IV PPI twice daily for now. Follow-up a.m. CBC. Hold Eliquis and aspirin for now. Patient will undergo repeat upper endoscopy. He was explained alternatives, risk, benefits include no ascending bleeding, infection, sepsis, perforation, need for charge and . He often does have 3. Dysphagia ? Speech therapy consulted. Known history of dysphagia and speech therapy followed during prior admission. Charges/Coding Visit Charges Inpatient E&M: 44018 Init Hosp L3
[2024-07-14] MEDS: 0.9% Normal Saline (Pres. free 10 ML Vial ×2 (13:30→13:40)
[2024-07-14] MEDS: Epinephrine (1 mg/ml) 1 MG/ML VIAL ×2 (13:30→13:40)
--- NOTE | 2024-07-14 13:58 | OP.EGD_ITS ---
Patient Name: Bernabe Nicole Procedure Date: 07/14/2024 1:17 PM Date of : 1950 Age: 74 Procedure: Upper GI endoscopy Indications: Melena Providers: David Ramos DO Medicines: Monitored Anesthesia Care Patient Profile: This is a 74 year old male. Refer to note in patient chart for documentation of history and physical. Patient has symptoms. Complications: No immediate complications. Procedure: Pre-Anesthesia Assessment: - Prior to the procedure, a History and Physical was performed, and patient medications and allergies were reviewed. The patient is competent. The risks and benefits of the procedure and the sedation options and risks were discussed with the patient. All questions were answered and informed consent was obtained. Patient identification and proposed procedure were verified by the physician in the pre-procedure area. Mental Status Examination: alert and oriented. Airway Examination: normal oropharyngeal airway and neck mobility. Respiratory Examination: clear to auscultation. CV Examination: normal. Prophylactic Antibiotics: The patient does not require prophylactic antibiotics. Prior Anticoagulants: The patient has taken no anticoagulant or antiplatelet agents. ASA Grade Assessment: III - A patient with severe systemic disease. After reviewing the risks and benefits, the patient was deemed in satisfactory condition to undergo the procedure. The anesthesia plan was to use monitored anesthesia care (MAC). Immediately prior to administration of medications, the patient was re-assessed for adequacy to receive sedatives. The heart rate, respiratory rate, oxygen saturations, blood pressure, adequacy of pulmonary ventilation, and response to care were monitored throughout the procedure. The physical status of the patient was re-assessed after the procedure. After obtaining informed consent, the endoscope was passed under direct vision. Throughout the procedure, the patient's blood pressure, pulse, and oxygen saturations were monitored continuously. The Endoscope was introduced through the mouth, and advanced to the fourth part of the duodenum. Small bowel enteroscopy was deemed necessary. The upper GI endoscopy was accomplished without difficulty. The patient tolerated the procedure well. Scope In: 1:24:54 PM Scope Out: 1:47:12 PM Total Procedure Duration Time 0 hours 22 minutes 18 seconds Findings: One cratered esophageal ulcer actively bleeding was found 39 to 41 cm from the incisors. The lesion was 5 mm in largest dimension. Area was successfully injected with 15 mL of a 0.1 mg/mL solution of epinephrine for drug delivery. Estimated blood loss was minimal. Coagulation for bleeding prevention using argon plasma at 0.3 liters/minute and 15 grover was successful. Estimated blood loss was minimal. One linear esophageal ulcer actively bleeding was found 40 to 42 cm from the incisors. The lesion was 8 mm in largest dimension. To stop active bleeding, one hemostatic clip was successfully placed. Clip laboratory chemist: [employer]. There was no bleeding at the end of the procedure. Red blood was found in the entire examined stomach. Four 5 mm angiodysplastic lesions with bleeding on contact were found in the ampulla, in the second portion of the duodenum and in the fourth portion of the duodenum. Coagulation for destruction of remaining portion of lesion using argon plasma at 0.3 liters/minute and 20 grover was successful. Estimated blood loss was minimal. Impression: - Esophageal ulcer actively bleeding. Injected. Treated with argon plasma coagulation (APC). - Esophageal ulcer actively bleeding. Clip was placed. Clip laboratory chemist: [employer]. - Red blood in the entire stomach. 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 Treated with argon plasma coagulation (APC). - No specimens collected. Recommendation: - Return patient to [facility] for ongoing care. - Clear liquid diet today. - Continue present medications. Procedure Code(s): --- Professional --- 94047, Small intestinal endoscopy, enteroscopy beyond second portion of duodenum, not including ileum; with ablation of tumor(s), polyp(s), or other lesion(s) not amenable to removal by hot biopsy forceps, bipolar cautery or snare technique 88135, 59,51, Small intestinal endoscopy, enteroscopy beyond second portion of duodenum, not including ileum; with control of bleeding (eg, injection, bipolar cautery, unipolar cautery, laser, heater probe, stapler, plasma director process) 52289, Unlisted procedure, small intestine CPT copyright 2021 [employer]. All rights reserved. The codes documented in this report are preliminary and upon ironer sock review may be revised to meet current compliance requirements. David Ramos DO 07/14/2024 1:58:20 PM This report has been signed electronically. Number of Addenda: 0 Note Initiated On: 07/14/2024 1:17 PM
--- NOTE | 2024-07-14 14:00 | PCM.POST.ANE ---
Anesthesia: Postop Eval I Current Vital Signs Temperature: 97.9 F Pulse Rate: 94 Blood Pressure: 116/56 Respiratory Rate: 18 Pulse Ox: 100 Oxygen Delivery Method: Room Air Assessment Airway patent: Yes Spontaneous unlabored respirations: Yes Mental status: Asleep nausea: No Vomiting: No Anesthesia Complication: No Fluid Hydration Crystalloid volume administer (ml): 60 Total IV fluid infused: 60 Progress Note Anesthesia document: Postop Eval 1 completed: Yes
--- NOTE | 2024-07-14 14:10 | PCM.POSTANE2 ---
Anesthesia Postop Eval I Sum Postop Eval Completion status Anesthesia document: Postop Eval 1 completed: Yes Anesthesia Postop Eval I Summary Anesthesia Postop Eval I Summary: Anesthesia Postop Eval I: Assessment Summary Airway patent Yes 07/14/24 14:02 [email or web address] Spontaneous unlabored Yes 07/14/24 14:02 [email or web address] respirations Mental status Asleep 07/14/24 14:02 [email or web address] nausea No 07/14/24 14:02 [email or web address] Vomiting No 07/14/24 14:02 [email or web address] Anesthesia Postop Eval I: Fluid Summary Crystalloid volume administer 60 07/14/24 14:02 [email or web address] (ml) Colloids volume administered ( ml) Blood Product volume administered (ml) Total IV fluid infused 60 07/14/24 14:02 [email or web address] Anesthesia Postop Eval I: Summary Notes Anesthesia Complication No 07/14/24 14:02 [email or web address] Anesthesia Complication Comment: Post-operative progress note Anesthesia: Postop Eval II Evaluation Mental status: Awake Pain Level: 0 nausea: No Vomiting: No
[2024-07-14] MEDS: Insulin Lispro 100 UNIT/ML INSULN.PEN SC (16:33)
[2024-07-14 16:48] LABS: Bedside Glucose 158 mg/dL (74-106)
[2024-07-14] MEDS: Acetaminophen 325 MG Tablet 650 MG PO (20:40)
[2024-07-14 22:12] LABS: Bedside Glucose 138 mg/dL (74-106)
[2024-07-15] VITALS (16 sets, daily range): BP systolic 102–129; BP diastolic 46–70; PULSE 84–114; RESP 16–24; TEMP 36.6–37.2; O2SAT 88–98; BMI 28.2
[2024-07-15 06:51] LABS: Bedside Glucose 150 mg/dL (74-106)
[2024-07-15] MEDS: Ipratropium/Albuterol Sulfate 3 ML AMPUL.NEB INHALATION ×3 (07:00→18:47)
[2024-07-15] MEDS: Budesonide Respules 0.5 MG/2 ML AMPUL.NEB. INHALATION ×2 (07:00→18:47)
--- NOTE | 2024-07-15 07:39 | EX.PCM.CON.S ---
Assessment & Plan Assessment/Plan (1) Peripheral arterial disease with history of revascularization: (2) Femoral arteriovenous fistula, left: PLAN: Plan He is s/p angioplasty/stent left profunda femoral artery via L brachial cutdown 07/06/24 to address iatrogenic L femoral AV fistula; admitted currently for GI bleeding. On exam today, LLE edema appears slightly improved from last admission. L brachial incision site with some surrounding ecchymosis but otherwise satisfactory in appearance. From surgical perspective, OK to discontinue Eliquis but would restart ASA 81mg daily if possible due to recent stent placement. HPI Consult Data Date of Consult: 07/15/24 HPI Narrative HPI Narrative: EMELIA JOHNSON, is a 74 M who presented to [facility] ER from SNF with bleeding noted in his colostomy bag and hgb 8.4. He was admitted for management; he had EGD yesterday with treatment of bleeding esophageal ulcers and duodenal angiodysplastic lesions. He is known to me from his last admission; consulted at that time for significant LLE edema with a history of prior extensive DVT however workup that admission was negative for DVT and instead demonstrated left femoral AV fistula. Dr. Thompson performed angioplasty and covered stent placement to the left common femoral to address this fistula; this was performed via L brachial artery access with cutdown. He'd been on Eliquis at that time due to DVT. He was started on ASA after stent placement. Currently, both are held. [facility] Medical History Peripheral arterial disease with history of revascularization MRSA (methicillin resistant staph aureus) culture positive Wears glasses Low iron Stroke/cerebrovascular accident Former smoker Colostomy in place Family history of abdominal aortic aneurysm repair DVT (deep venous thrombosis) Enteritis Cholelithiasis Acidosis, lactic Encephalopathy due to infection Acute hypoxemic respiratory failure Complicated urinary tract infection Severe sepsis with acute organ dysfunction Aspiration into respiratory tract FIOR (acute kidney injury) Colon cancer Home Medications ?Medication ?Instructions ?Recorded ?Last Taken ?Type finasteride 5 mg tablet 5 mg PO DAILY prostate 06/22/23 06/30/24 History levothyroxine 100 mcg tablet 100 mcg PO DAILY@0600 #30 tabs 01/15/24 06/30/24 Rx pantoprazole 40 mg tablet,delayed 40 mg PO BID #60 tabs 01/15/24 06/30/24 Rx release albuterol sulfate 90 mcg/actuation 1 - 2 puff inhalation 4X/DAY PRN 02/22/24 Unknown History aerosol inhaler wheezing apixaban 5 mg tablet (Eliquis) 5 mg PO BID 02/22/24 06/30/24 History aspirin 81 mg tablet,delayed 81 mg PO DAILY 07/01/24 06/30/24 History release fluticasone fur. 100 mcg-umeclid 1 ea inhalation DAILY 07/01/24 06/30/24 History 62.5 mcg-vilant 25 mcg inhalat.powder (Trelegy Ellipta) icosapent ethyl 1 gram capsule 1 g PO BID 07/01/24 06/30/24 History linagliptin 5 mg tablet (Tradjenta) 5 mg PO DAILY 07/01/24 06/30/24 History rosuvastatin 20 mg tablet 20 mg PO QHS 07/01/24 06/30/24 History linezolid 600 mg tablet (Zyvox) 600 mg PO BID #18 tabs 07/07/24 Unknown Rx nystatin 100,000 unit/gram topical 1 applic topical TID #0 grams 07/07/24 Unknown Rx powder (Nyamyc) nystatin 100,000 unit/mL oral 100,000 unit PO DAILY #60 mL 07/07/24 Unknown Rx suspension oxycodone 5 mg capsule 5 mg PO Q4H PRN pain 2 days #12 07/07/24 Unknown Rx caps atorvastatin 40 mg tablet 40 mg PO QHS 07/13/24 Unknown History ipratropium 0.5 mg-albuterol 3 mg 3 ml inhalation Q6H 07/13/24 Unknown History (2.5 mg base)/3 mL nebulization soln tuberculin PPD 1 unit/0.1 mL 0.1 tb unit intradermal QHS health 07/13/24 Unknown History intradermal injection solution maintenance Allergy/AdvReac Type Severity Reaction Status Date / Time No Known Allergies Allergy Verified 07/13/24 17:01 Family History no significant family his Surgical History H/O esophagogastroduodenoscopy Hx of abdominal surgery Hx of endarterectomy (~2020) Social History Smoking Status: Former smoker Tobacco: How many years used: 50 Physical Exam Const alert, oriented x3 and no apparent distress General Appearance: cooperative HEENT hearing grossly normal bilaterally and external ears normal Head and Scalp: normal to inspection Nose: external nose normal Eyes General Eye: normal appearance of both eyes Resp normal respiratory effort, normal air movement, no retractions and no use of accessory muscles Cardio regular rate and regular rhythm Extremity Extremity Narrative: Left upper arm incision site with some surrounding ecchymosis but no apparent hematoma/focal edema LLE with slightly improved appearing edema from last visit, L foot warm and appropriately pink, sensory and motor intact Lab / Micro Data 07/15/24 08:19 07/14/24 05:18 Labs: Laboratory Results - last 24 hr 07/14/24 07:58: Blood Type O POSITIVE, Antibody Screen NEGATIVE, Crossmatch See Detail 07/14/24 11:26: POC Glucose 134 H 07/14/24 16:30: POC Glucose 158 H 07/14/24 21:42: POC Glucose 138 H 07/15/24 06:20: POC Glucose 150 H Charges/Coding Visit Charges Inpatient E&M: 26610 Init Hosp L1
--- NOTE | 2024-07-15 07:51 | PN.HOSP_ITS ---
Reason for Visit Reason for Visit: Diagnoses Anemia, unspecified (07/13/24) Gastrointestinal hemorrhage, unspecified (07/13/24) Objective Data Objective Data Vital Signs: Vital Signs Temp Pulse Resp BP Pulse Ox O2 Del Method 97.9 F 96 16 125/62 H 95 Room Air 07/15/24 03:27 07/15/24 03:27 07/15/24 03:27 07/15/24 03:27 07/15/24 03:27 07/15/24 03:30 Oxygen Delivery Method Room Air Weight: 180 lb 5.41 oz Body Mass Index (BMI) 28.2 Intake & Output: Intake and Output for Last 24 Hours 07/13/24 07/14/24 07/15/24 23:59 23:59 23:59 Intake Total 110 / 110 620 / 620 Output Total 2250 / 2250 400 / 400 Balance 110 / -190 -1630 / -1630 -400 / -400 Lab / Micro Data 07/15/24 08:19 07/15/24 08:19 Labs: Laboratory Results - last 24 hr 07/14/24 07:58: Blood Type O POSITIVE, Antibody Screen NEGATIVE, Crossmatch See Detail 07/14/24 11:26: POC Glucose 134 H 07/14/24 16:30: POC Glucose 158 H 07/14/24 21:42: POC Glucose 138 H 07/15/24 06:20: POC Glucose 150 H Physical Exam Narrative Patient has significant swelling/bruising noted in left arm at recent surgical insertion site for angiogram for left lower extremity AV fistula, angioplasty and stent of left profundofemoral artery. Left lower extremity still swollen. Seen and examined. General: Alert, Oriented x3, Cooperative HEENT: Atraumatic, PERRLA, EOMI, Normocephalic Oral: No Gingival or Mucosal Lesions/ Ulcerations Neck: Supple, No JVD, Negative Carotid Bruits Chest wall/Lungs: Air entry diminished in bilateral lung bases. No crepitation/rhonchi Cardiovascular: Sinus rhythm, Normal S1, Normal S2, systolic murmur. Decreased pulsation in the left lower extremity, PT/DP probably because of edema Abdomen: Bowel Sounds Present, Soft, Non Tender, Non-Distended : No dysuria. No renal angle tenderness. No suprapubic tenderness. Extremities: Left lower extremity edematous capillary Refill Less than 3 Seconds Skin: No rashes, No breakdown Musculoskeletal: No Tenderness to Palpation of Joints or Extremities Neurological: Cranial nerves II-XII grossly intact, DTR 2+/4. No acute focal neurological deficit. Psych/Mental Status: Flat affect Assessment & Plan Assessment/Plan (1) Acute GI bleeding: (2) Anemia: PLAN: Plan Patient is a 74-year-old male who presented to [facility] ED on 07/13/24 with dark blood with clots noted in ostomy bag. Patient denies abdominal pain nausea or vomiting. 1. Acute upper GI bleed with acute blood loss anemia, known erosive esophagitis with esophageal stenosis ? Admit under inpatient status to PCU. GI consulted. Recent EGD on 07/04 showed grade D erosive esophagitis with bleeding noted, chronic duodenitis and benign- appearing esophageal stenoses that were dilated. High likelihood of upper GI bleed after restarting Eliquis on discharge given hemoglobin drop from 12.0 to 8.4 and very elevated BUN. Maintain n.p.o. status for likely EGD and treat with IV PPI twice daily for now. Follow-up a.m. CBC. Hold Eliquis and aspirin for now. 07/14: EGD done today. Impression: - Esophageal ulcer actively bleeding. Injected. Treated with argon plasma coagulation (APC). - Esophageal ulcer actively bleeding. Clip was placed. 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 - Red blood in the entire stomach. 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 Treated with argon plasma coagulation (APC). - No specimens collected. Continue IV PPI every 12 hourly. H&H 6.6/20.6. 1 unit of PRBC ordered.. Poor IV access therefore required midline. Baseline hemoglobin 11 to 12 g. 07/15: H&H 6.8/22%. 1 L PRBC ordered 2. Severe PAD with history of revascularization and recent left femoral arteriovenous fistula placement, history of LLE DVT ? Follows with vascular surgery. Had left femoral AV fistula placement done with Dr. Thompson on 07/06. Tolerated procedure well but does have significant left arm swelling with bruising noted. Left lower extremity with swelling improved from last admission. Holding Eliquis and aspirin as above and will need to discuss with vascular surgery on need for these going forward. 07/15: Seen by vascular surgeon PA. Advised to discontinue Eliquis and would start aspirin 81 mg daily but patient still very anemic hemoglobin less than 7 g therefore we will hold on starting baby aspirin 3. Acute on chronic debility ? PT/OT/case management consulted. Patient came from SNF and will presumably need to return to SNF on discharge. 4. Dysphagia ? Speech therapy consulted. Known history of dysphagia and speech therapy followed during prior admission. 5. Mild FIOR on CKD stage IIIb ? Creatinine 2.20 on admit, baseline around 1.4-1.6. Presume secondary to blood loss as noted above. IV fluid resuscitation given in ED, follow-up a.m. BMP and monitor urine output. 07/14: BUN/creatinine 72/2.12. 07/15: BUN/creatinine 76/2.24. 6. History of chronic urinary retention with chronic Maddox catheter, recent complicated UTI ? Patient with complicated UTI with MRSA during most recent admission. Completed course of p.o. linezolid on discharge. No need for further antibiotics at this time. Chronic medical conditions: ? History of CVA with residual left-sided weakness, hypertension, hyperlipidemia: Continue home statin. Holding home aspirin as noted above. ? Type 2 diabetes mellitus: Holding home linagliptin. Will treat with sliding scale insulin with meals while inpatient. ? Hypothyroidism: Continue home Synthroid. ? History of rectal cancer s/p chemotherapy and radiation therapy and resection of left colon and entire rectum with permanent colostomy placement in 2020: Continue outpatient follow-up with oncology. 07/14: There was black tarry liquidy stool in the bag. ? History of AAA without rupture: Outpatient follow-up. ? GERD: Treating with IV PPI twice daily as noted above. DVT prophylaxis: SCDs CODE STATUS: Full code, verified Expected disposition: Likely back to [facility], TBD Charges/Coding Visit Charges Inpatient E&M: 78806 Subs Hosp L2
[2024-07-15] MEDS: Finasteride 5 MG Tablet PO (08:28)
[2024-07-15] MEDS: Acetaminophen 325 MG Tablet 650 MG PO (08:28)
[2024-07-15] MEDS: Pantoprazole Sodium 40 MG in 0.9% Normal Saline (100mL MB+) 100 ML 330 MG IV ×2 (08:35→21:40)
[2024-07-15] MEDS: 0.9% Saline Lock 10 ML Syringe IV ×2 (08:35→21:40)
[2024-07-15 08:37] LABS: Absolute Neutrophil Count 14.5 X10^3/uL (2.0-7.7); Basophil# 0.02 X10^3/uL; Basophil% 0.1 % (0-1); Eosinophil# 0.17 X10^3/uL; Hematocrit 21.9 % (40-54); Hemoglobin 6.8 g/dL (13.0-16.5); Lymphocyte % 4.9 % (19-41); Mean Corp Hgb Conc 31.1 g/dL (32-36); Mean Corpuscular Hgb 29.8 pg (27.0-32.0); Mean Corpuscular Volume 96.1 fL (80-94); Mean Platelet Vol. 11.9 fl (6.2-12.0); Monocyte# 0.66 X10^3/uL; Monocyte% 4.1 % (0-10); NRBC Flagged by Analyzer 0 % (0-5); Neutrophil # 14.46 X10^3/uL (2.7-7.7); Neutrophil % 89.2 % (47-70); Platelet Count 128 K/mm3 (150-450); RBC Distribution Width CV 18.5 % (11.6-14.6); RBC Distribution Width SD 62.3 fl (35.1-43.9); Red Blood Count 2.28 M/mm3 (4.6-6.2); White Blood Count 16.2 K/mm3 (4.4-11.0)
[2024-07-15 09:00] LABS: Anion Gap 11 (5-15); BUN 76 mg/dL (4-19); BUN/Creat Ratio 33.9 RATIO (10-20); Calcium,Total 8.5 mg/dL (7.6-11.0); Carbon Dioxide 21.5 mmol/L (21.0-32.0); Chloride 113 mmol/L (98-108); Creatinine, Serum 2.24 mg/dL (0.70-1.20); EST Glomerular Filtration Rate 30 (>60); Estimated Creatinine Clearance 29.62 ml/min (50-250); Glucose 167 mg/dL (70-99); Potassium 4.2 mmol/L (3.3-5.1); Sodium Level 146 mmol/L (133-145)
--- NOTE | 2024-07-15 09:45 | NURSING ---
therapy called nursing staff to see in therapy would be appropriate today. nursing staff stated that pt would be ok to see today. therapist then stated that pt is still anemic and not going to see pt today.
[2024-07-15 11:50] LABS: Bedside Glucose 156 mg/dL (74-106)
[2024-07-15] MEDS: Insulin Lispro 100 UNIT/ML INSULN.PEN SC ×2 (11:56→16:02)
[2024-07-15 16:28] LABS: Bedside Glucose 159 mg/dL (74-106)
[2024-07-15 22:05] LABS: Bedside Glucose 147 mg/dL (74-106)
[2024-07-16] VITALS (11 sets, daily range): BP systolic 106–126; BP diastolic 43–73; PULSE 90–117; RESP 16–20; TEMP 36.8–37.1; O2SAT 90–100; BMI 28.3
[2024-07-16 04:32] LABS: Absolute Lymphocyte Count 0.49 X10^3/uL (0.83-4.51); Absolute Neutrophil Count 7.4 X10^3/uL (2.0-7.7); Basophil# 0.03 X10^3/uL; Basophil% 0.3 % (0-1); Eosinophil# 0.03 X10^3/uL; Eosinophils% 0.3 % (0-5); Hematocrit 23.6 % (40-54); Hemoglobin 7.5 g/dL (13.0-16.5); Lymphocyte # 0.49 X10^3/ul (0.83-4.51); Lymphocyte % 5.7 % (19-41); Mean Corp Hgb Conc 31.8 g/dL (32-36); Mean Corpuscular Volume 94.4 fL (80-94); Mean Platelet Vol. 12.1 fl (6.2-12.0); Monocyte# 0.63 X10^3/uL; Monocyte% 7.3 % (0-10); NRBC Flagged by Analyzer 0.2 % (0-5); Neutrophil # 7.38 X10^3/uL (2.7-7.7); Neutrophil % 86.2 % (47-70); POSITIVE DIFFERENTIAL YES; Platelet Count 121 K/mm3 (150-450); RBC Distribution Width CV 17.8 % (11.6-14.6); RBC Distribution Width SD 57.9 fl (35.1-43.9); White Blood Count 8.6 K/mm3 (4.4-11.0)
[2024-07-16 05:12] LABS: Anion Gap 14 (5-15); BUN 71 mg/dL (4-19); BUN/Creat Ratio 29.8 RATIO (10-20); Calcium,Total 8.5 mg/dL (7.6-11.0); Carbon Dioxide 18.4 mmol/L (21.0-32.0); Chloride 115 mmol/L (98-108); Creatinine, Serum 2.39 mg/dL (0.70-1.20); EST Glomerular Filtration Rate 28 (>60); Estimated Creatinine Clearance 27.79 ml/min (50-250); Glucose 156 mg/dL (70-99); Potassium 4.1 mmol/L (3.3-5.1); Sodium Level 148 mmol/L (133-145)
[2024-07-16] MEDS: Budesonide Respules 0.5 MG/2 ML AMPUL.NEB. INHALATION ×2 (06:32→19:48)
[2024-07-16] MEDS: Ipratropium/Albuterol Sulfate 3 ML AMPUL.NEB INHALATION ×3 (06:32→19:48)
[2024-07-16 07:15] LABS: Bedside Glucose 151 mg/dL (74-106)
--- NOTE | 2024-07-16 07:50 | PN.HOSP_ITS ---
Reason for Visit Reason for Visit: Diagnoses Anemia, unspecified (07/13/24) Gastrointestinal hemorrhage, unspecified (07/13/24) Objective Data Objective Data Vital Signs: Vital Signs Temp Pulse Resp BP Pulse Ox O2 Del Method O2 Flow Rate 98.6 F 93 18 115/60 93 Nasal Cannula 2 07/16/24 03:44 07/16/24 06:32 07/16/24 06:32 07/16/24 03:44 07/16/24 06:32 07/16/24 06:32 07/16/24 06:32 Oxygen Flow Rate (L/min) 2 Oxygen Delivery Method Nasal Cannula Weight: 180 lb 12.465 oz Body Mass Index (BMI) 28.3 Intake & Output: Intake and Output for Last 24 Hours 07/14/24 07/15/24 07/16/24 23:59 23:59 23:59 Intake Total 620 / 620 720 / 720 Output Total 2250 / 2250 800 / 1600 1600 / 1600 Balance -1630 / -1630 -80 / -880 -1600 / -1600 Lab / Micro Data 07/16/24 04:18 07/16/24 04:18 Labs: Laboratory Results - last 24 hr 07/14/24 07:58: Crossmatch See Detail 07/15/24 08:19: WBC 16.2 H, RBC 2.28 L, Hgb 6.8 L, Hct 21.9 L, MCV 96.1 H, MCH 29.8, MCHC 31.1 L, RDW Std Deviation 62.3 H, RDW Coeff of Yanira 18.5 H, Plt Count 128 L, MPV 11.9, Immature Gran % (Auto) 0.700, Neut % (Auto) 89.2 H, Lymph % (Auto) 4.9 L, [place] % (Auto) 4.1, Eos % (Auto) 1.0, Baso % (Auto) 0.1, Absolute Neuts (auto) 14.5 H, Absolute Lymphs (auto) 0.80 L, Nucleated RBC % 0, Sodium 146 H, Potassium 4.2, Chloride 113 H, Carbon Dioxide 21.5, Anion Gap 11, BUN 76 H, Creatinine 2.24 H, Estim Creat Clear Calc 29.62 L, Est GFR (MDRD) Non-Af 30 L , BUN/Creatinine Ratio 33.9 H, Glucose 167 H, Calcium 8.5 07/15/24 11:04: POC Glucose 156 H 07/15/24 16:00: POC Glucose 159 H 07/15/24 21:37: POC Glucose 147 H 07/16/24 04:18: WBC 8.6, RBC 2.50 L, Hgb 7.5 L, Hct 23.6 L, MCV 94.4 H, MCH 30.0, MCHC 31.8 L, RDW Std Deviation 57.9 H, RDW Coeff of Yanira 17.8 H, Plt Count 121 L, MPV 12.1 H, Immature Gran % (Auto) 0.200, Neut % (Auto) 86.2 H, Lymph % (Auto) 5.7 L, [place] % (Auto) 7.3, Eos % (Auto) 0.3, Baso % (Auto) 0.3, Absolute Neuts (auto) 7.4, Absolute Lymphs (auto) 0.49 L, Nucleated RBC % 0.2, Sodium 148 H, Potassium 4.1, Chloride 115 H, Carbon Dioxide 18.4 L, Anion Gap 14, BUN 71 H, Creatinine 2.39 H, Estim Creat Clear Calc 27.79 L, Est GFR (MDRD) Non-Af 28 L, B UN/Creatinine Ratio 29.8 H, Glucose 156 H, Calcium 8.5 07/16/24 06:55: POC Glucose 151 H Physical Exam Narrative Patient has significant swelling/bruising noted in left arm at recent surgical insertion site for angiogram for left lower extremity AV fistula, angioplasty and stent of left profundofemoral artery. Left lower extremity still swollen. Seen and examined. General: Alert, Oriented x3, Cooperative HEENT: Atraumatic, PERRLA, EOMI, Normocephalic Oral: No Gingival or Mucosal Lesions/ Ulcerations Neck: Supple, No JVD, Negative Carotid Bruits Chest wall/Lungs: Air entry diminished in bilateral lung bases. Mild right- sided basal crepitation Cardiovascular: Sinus rhythm, Normal S1, Normal S2, systolic murmur. Decreased pulsation in the left lower extremity, PT/DP probably because of edema Abdomen: Bowel Sounds Present, Soft, Non Tender, Non-Distended : No dysuria. No renal angle tenderness. No suprapubic tenderness. Extremities: Left lower extremity edematous capillary Refill Less than 3 Seconds Skin: No rashes, No breakdown Musculoskeletal: No Tenderness to Palpation of Joints or Extremities Neurological: Cranial nerves II-XII grossly intact, DTR 2+/4. No acute focal neurological deficit. Psych/Mental Status: Flat affect Assessment & Plan Assessment/Plan (1) Acute GI bleeding: (2) Anemia: PLAN: Plan Patient is a 74-year-old male who presented to [facility] ED on 07/13/24 with dark blood with clots noted in ostomy bag. Patient denies abdominal pain nausea or vomiting. 1. Acute upper GI bleed with acute blood loss anemia, known erosive esophagitis with esophageal stenosis ? Admit under inpatient status to PCU. GI consulted. Recent EGD on 07/04 showed grade D erosive esophagitis with bleeding noted, chronic duodenitis and benign- appearing esophageal stenoses that were dilated. High likelihood of upper GI bleed after restarting Eliquis on discharge given hemoglobin drop from 12.0 to 8.4 and very elevated BUN. Maintain n.p.o. status for likely EGD and treat with IV PPI twice daily for now. Follow-up a.m. CBC. Hold Eliquis and aspirin for now. 07/14: EGD done today. Impression: - Esophageal ulcer actively bleeding. Injected. Treated with argon plasma coagulation (APC). - Esophageal ulcer actively bleeding. Clip was placed. 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 - Red blood in the entire stomach. 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 Treated with argon plasma coagulation (APC). - No specimens collected. Continue IV PPI every 12 hourly. H&H 6.6/20.6. 1 unit of PRBC ordered.. Poor IV access therefore required midline. Baseline hemoglobin 11 to 12 g. 07/15: H&H 6.8/22%. 1 L PRBC ordered 07/16: H&H 7.5/23%. Platelet count 121K. 2. Severe PAD with history of revascularization and recent left femoral arteriovenous fistula placement, history of LLE DVT ? Follows with vascular surgery. Had left femoral AV fistula placement done with Dr. Thompson on 07/06. Tolerated procedure well but does have significant left arm swelling with bruising noted. Left lower extremity with swelling improved from last admission. Holding Eliquis and aspirin as above and will need to discuss with vascular surgery on need for these going forward. 07/15: Seen by vascular surgeon MICHAEL. Advised to discontinue Eliquis and would start aspirin 81 mg daily but patient still very anemic hemoglobin less than 7 g therefore we will hold on starting baby aspirin 3. Acute on chronic debility ? PT/OT/case management consulted. Patient came from SNF and will presumably need to return to SNF on discharge. 4. Dysphagia ? Speech therapy consulted. Known history of dysphagia and speech therapy followed during prior admission. 07/16: Mild crepitation right lung base. Advised incentive spirometry. 5. Mild FIOR on CKD stage IIIb ? Creatinine 2.20 on admit, baseline around 1.4-1.6. Presume secondary to blood loss as noted above. IV fluid resuscitation given in ED, follow-up a.m. BMP and monitor urine output. 07/14: BUN/creatinine 72/2.12. 07/15: BUN/creatinine 76/2.24. 6. History of chronic urinary retention with chronic Maddox catheter, recent complicated UTI ? Patient with complicated UTI with MRSA during most recent admission. Completed course of p.o. linezolid on discharge. No need for further antibiotics at this time. Chronic medical conditions: ? History of CVA with residual left-sided weakness, hypertension, hyperlipidemia: Continue home statin. Holding home aspirin as noted above. ? Type 2 diabetes mellitus: Holding home linagliptin. Will treat with sliding scale insulin with meals while inpatient. ? Hypothyroidism: Continue home Synthroid. ? History of rectal cancer s/p chemotherapy and radiation therapy and resection of left colon and entire rectum with permanent colostomy placement in 2020: Continue outpatient follow-up with oncology. 07/14: There was black tarry liquidy stool in the bag. ? History of AAA without rupture: Outpatient follow-up. ? GERD: Treating with IV PPI twice daily as noted above. DVT prophylaxis: SCDs CODE STATUS: Full code, verified Expected disposition: Likely back to SNF, TBD Charges/Coding Visit Charges Inpatient E&M: 58455 Subs Hosp L2
[2024-07-16] MEDS: Pantoprazole Sodium 40 MG in 0.9% Normal Saline (100mL MB+) 100 ML 330 MG IV ×2 (09:11→21:24)
[2024-07-16] MEDS: Finasteride 5 MG Tablet PO (09:14)
[2024-07-16] MEDS: 0.9% Saline Lock 10 ML Syringe IV ×3 (09:14→21:24)
[2024-07-16 11:36] LABS: Bedside Glucose 142 mg/dL (74-106)
[2024-07-16 17:33] LABS: Bedside Glucose 149 mg/dL (74-106)
[2024-07-16 22:34] LABS: Bedside Glucose 110 mg/dL (74-106)
[2024-07-17] VITALS (10 sets, daily range): BP systolic 117–172; BP diastolic 53–88; PULSE 92–121; RESP 16–28; TEMP 36.6–36.8; O2SAT 91–94; BMI 28.4
[2024-07-17 05:54] LABS: Absolute Lymphocyte Count 0.63 X10^3/uL (0.83-4.51); Absolute Neutrophil Count 3.2 X10^3/uL (2.0-7.7); Basophil# 0.02 X10^3/uL; Basophil% 0.4 % (0-1); Eosinophil# 0.15 X10^3/uL; Eosinophils% 3.2 % (0-5); Hematocrit 23.9 % (40-54); Hemoglobin 7.3 g/dL (13.0-16.5); Lymphocyte # 0.63 X10^3/ul (0.83-4.51); Lymphocyte % 13.3 % (19-41); Mean Corp Hgb Conc 30.5 g/dL (32-36); Mean Corpuscular Hgb 30.3 pg (27.0-32.0); Mean Corpuscular Volume 99.2 fL (80-94); Mean Platelet Vol. 12.3 fl (6.2-12.0); Monocyte# 0.69 X10^3/uL; Monocyte% 14.6 % (0-10); NRBC Flagged by Analyzer 0.6 % (0-5); Neutrophil # 3.22 X10^3/uL (2.7-7.7); Neutrophil % 67.9 % (47-70); Platelet Count 113 K/mm3 (150-450); RBC Distribution Width CV 17.7 % (11.6-14.6); RBC Distribution Width SD 62.8 fl (35.1-43.9); Red Blood Count 2.41 M/mm3 (4.6-6.2); White Blood Count 4.7 K/mm3 (4.4-11.0)
[2024-07-17 06:14] LABS: Anion Gap 11 (5-15); BUN 52 mg/dL (4-19); BUN/Creat Ratio 25.6 RATIO (10-20); Calcium,Total 8.7 mg/dL (7.6-11.0); Carbon Dioxide 20.3 mmol/L (21.0-32.0); Chloride 118 mmol/L (98-108); Creatinine, Serum 2.04 mg/dL (0.70-1.20); EST Glomerular Filtration Rate 34 (>60); Estimated Creatinine Clearance 32.61 ml/min (50-250); Glucose 148 mg/dL (70-99); Potassium 3.8 mmol/L (3.3-5.1); Sodium Level 149 mmol/L (133-145)
[2024-07-17] MEDS: Ipratropium/Albuterol Sulfate 3 ML AMPUL.NEB INHALATION ×3 (06:34→20:10)
[2024-07-17] MEDS: Budesonide Respules 0.5 MG/2 ML AMPUL.NEB. INHALATION ×2 (06:34→20:10)
[2024-07-17 06:58] LABS: Bedside Glucose 143 mg/dL (74-106)
[2024-07-17] MEDS: Finasteride 5 MG Tablet PO (09:38)
[2024-07-17] MEDS: Levothyroxine 100 MCG Tablet PO (09:38)
[2024-07-17] MEDS: Pantoprazole Sodium 40 MG in 0.9% Normal Saline (100mL MB+) 100 ML 330 MG IV ×2 (09:43→21:00)
[2024-07-17] MEDS: Potassium Chloride 20 MEQ in Dextrose 5%-Water (1000mL Bag) 1,000 ML 75 MEQ IV (10:09)
[2024-07-17 12:39] LABS: Bedside Glucose 107 mg/dL (74-106)
--- NOTE | 2024-07-17 13:34 | PCM.PN.HOSP ---
Reason for Visit Reason for Visit: Diagnoses Anemia, unspecified (07/13/24) Peripheral vascular disease, unspecified (07/13/24) Arteriovenous fistula, acquired (07/13/24) Gastrointestinal hemorrhage, unspecified (07/13/24) Other specified postprocedural states (07/13/24) Objective Data Objective Data Vital Signs: Vital Signs Temp Pulse Resp BP Pulse Ox O2 Del Method O2 Flow Rate 97.8 F 105 H 20 H 149/88 H 93 Room Air 2 07/17/24 09:28 07/17/24 13:12 07/17/24 13:12 07/17/24 09:28 07/17/24 09:28 07/17/24 09:28 07/16/24 09:09 Oxygen Flow Rate (L/min) 2 Oxygen Delivery Method Room Air Weight: 181 lb 7.047 oz Body Mass Index (BMI) 28.4 Intake & Output: Intake and Output for Last 24 Hours 07/15/24 07/16/24 07/17/24 23:59 23:59 23:59 Intake Total 720 / 720 440 / 440 110 / 110 Output Total 800 / 1600 1999 / 1999 850 / 850 Balance -80 / -880 -1560 / -1560 -740 / -740 Lab / Micro Data 07/17/24 05:11 07/17/24 05:11 Labs: Laboratory Results - last 24 hr 07/16/24 17:15: POC Glucose 149 H 07/16/24 21:28: POC Glucose 110 H 07/17/24 05:11: WBC 4.7, RBC 2.41 L, Hgb 7.3 L, Hct 23.9 L, MCV 99.2 H D, MCH 30.3, MCHC 30.5 L, RDW Std Deviation 62.8 H, RDW Coeff of Yanira 17.7 H, Plt Count 113 L, MPV 12.3 H, Immature Gran % (Auto) 0.600, Neut % (Auto) 67.9, Lymph % (Auto) 13.3 L, [place]field % (Auto) 14.6 H, Eos % (Auto) 3.2, Baso % (Auto) 0.4, Absolute Neuts (auto) 3.2, Absolute Lymphs (auto) 0.63 L, Nucleated RBC % 0.6, Sodium 149 H, Potassium 3.8, Chloride 118 H, Carbon Dioxide 20.3 L, Anion Gap 11, BUN 52 H, Creatinine 2.04 H, Estim Creat Clear Calc 32.61 L, Est GFR (MDRD) Non-Af 34 L, BUN/Creatinine Ratio 25.6 H, Glucose 148 H, Calcium 8.7 07/17/24 06:16: POC Glucose 143 H 07/17/24 12:21: POC Glucose 107 H Physical Exam Narrative Seen and examined. No significant improvement. hemoglobin and platelet are low. Electrolytes sodium and chloride are high. Patient has significant swelling/bruising noted in left arm at recent surgical insertion site for angiogram for left lower extremity AV fistula, angioplasty and stent of left profundofemoral artery. Left lower extremity still swollen. Seen and examined. General: Alert, Oriented x3, Cooperative HEENT: Atraumatic, PERRLA, EOMI, Normocephalic Oral: No Gingival or Mucosal Lesions/ Ulcerations Neck: Supple, No JVD, Negative Carotid Bruits Chest wall/Lungs: Air entry diminished in bilateral lung bases. No crepitation Cardiovascular: Sinus rhythm, Normal S1, Normal S2, systolic murmur. Decreased pulsation in the left lower extremity, PT/DP probably because of edema Abdomen: Bowel Sounds Present, Soft, Non Tender, Non-Distended : No dysuria. No renal angle tenderness. No suprapubic tenderness. Extremities: Left lower extremity edematous capillary Refill Less than 3 Seconds Skin: No rashes, No breakdown Musculoskeletal: No Tenderness to Palpation of Joints or Extremities Neurological: Cranial nerves II-XII grossly intact, DTR 2+/4. No acute focal neurological deficit. Psych/Mental Status: Flat affect Assessment & Plan Assessment/Plan (1) Acute GI bleeding: (2) Anemia: PLAN: Plan Patient is a 74-year-old male who presented to [facility] ED on 07/13/24 with dark blood with clots noted in ostomy bag. Patient denies abdominal pain nausea or vomiting. 1. Acute upper GI bleed with acute blood loss anemia, known erosive esophagitis with esophageal stenosis ? Admit under inpatient status to PCU. GI consulted. Recent EGD on 07/04 showed grade D erosive esophagitis with bleeding noted, chronic duodenitis and benign-appearing esophageal stenoses that were dilated. High likelihood of upper GI bleed after restarting Eliquis on discharge given hemoglobin drop from 12.0 to 8.4 and very elevated BUN. Maintain n.p.o. status for likely EGD and treat with IV PPI twice daily for now. Follow-up a.m. CBC. Hold Eliquis and aspirin for now. 07/14: EGD done today. Impression: - Esophageal ulcer actively bleeding. Injected. Treated with argon plasma coagulation (APC). - Esophageal ulcer actively bleeding. Clip was placed. 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 - Red blood in the entire stomach. 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 Treated with argon plasma coagulation (APC). - No specimens collected. Continue IV PPI every 12 hourly. H&H 6.6/20.6. 1 unit of PRBC ordered.. Poor IV access therefore required midline. Baseline hemoglobin 11 to 12 g. 07/15: H&H 6.8/22%. 1 L PRBC ordered 07/16: H&H 7.5/23%. Platelet count 121K. 07/17: With platelet and hemoglobin low hard to start on antiplatelet agent. Continue IV PPI 2. Severe PAD with history of revascularization and recent left femoral arteriovenous fistula placement, history of LLE DVT ? Follows with vascular surgery. Had left femoral AV fistula placement done with Dr. Thompson on 07/06. Tolerated procedure well but does have significant left arm swelling with bruising noted. Left lower extremity with swelling improved from last admission. Holding Eliquis and aspirin as above and will need to discuss with vascular surgery on need for these going forward. 07/15: Seen by vascular surgeon MICHAEL. Advised to discontinue Eliquis and would start aspirin 81 mg daily but patient still very anemic hemoglobin less than 7 g therefore we will hold on starting baby aspirin 07/17: Discussed with Dr. Thompson. Plan for this hospitalization will be manage all comorbidities and if hemoglobin and platelet count permits, start antiplatelet agent aspirin either inpatient or may be outpatient. Patient had AV fistula as mentioned above that was stented. Long-term plan will be either open or endovascular surgery of the iliac stenosis 3. Acute on chronic debility ? PT/OT/case management consulted. Patient came from SNF and will presumably need to return to SNF on discharge. 4. Dysphagia ? Speech therapy consulted. Known history of dysphagia and speech therapy followed during prior admission. 07/16: Mild crepitation right lung base. Advised incentive spirometry. 07/14 lungs clear. Encouraged to continue incentive spirometry 5. Mild FIOR on CKD stage IIIb ? Creatinine 2.20 on admit, baseline around 1.4-1.6. Presume secondary to blood loss as noted above. IV fluid resuscitation given in ED, follow-up a.m. BMP and monitor urine output. 07/14: BUN/creatinine 72/2.12. 07/15: BUN/creatinine 76/2.24. 07/17: BUN/creatinine 52/2.04. Patient did not had significant improvement in creatinine in 5 days therefore I feel this is a new baseline. Hypernatremia, hyperchloremia. D5W ordered 6. History of chronic urinary retention with chronic Maddox catheter, recent complicated UTI ? Patient with complicated UTI with MRSA during most recent admission. Completed course of p.o. linezolid on discharge. No need for further antibiotics at this time. Chronic medical conditions: ? History of CVA with residual left-sided weakness, hypertension, hyperlipidemia: Continue home statin. Holding home aspirin as noted above. ? Type 2 diabetes mellitus: Holding home linagliptin. Will treat with sliding scale insulin with meals while inpatient. ? Hypothyroidism: Continue home Synthroid. ? History of rectal cancer s/p chemotherapy and radiation therapy and resection of left colon and entire rectum with permanent colostomy placement in 2020: Continue outpatient follow-up with oncology. 07/14: There was black tarry liquidy stool in the bag. ? History of AAA without rupture: Outpatient follow-up. ? GERD: Treating with IV PPI twice daily as noted above. DVT prophylaxis: SCDs CODE STATUS: Full code, verified Expected disposition: Likely back to SNF, TBD Charges/Coding Visit Charges Inpatient E&M: 75442 Subs Hosp L2
--- NOTE | 2024-07-17 14:52 | CASEMGMT ---
SW sent updates to [facility] for patient. 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
[2024-07-17 17:19] LABS: Bedside Glucose 131 mg/dL (74-106)
--- NOTE | 2024-07-17 18:00 | PN_ITS ---
Progress Note Patient without any complaints at this time. Physical Exam Const alert, oriented x3 and no apparent distress General Appearance: cooperative HEENT hearing grossly normal bilaterally and external ears normal Head and Scalp: normal to inspection Nose: external nose normal Eyes General Eye: normal appearance of both eyes Resp normal respiratory effort, normal air movement, no retractions and no use of accessory muscles Cardio regular rate and regular rhythm Extremity Extremity Narrative: Left upper arm incision site with some surrounding ecchymosis but no apparent hematoma/focal edema LLE with slightly improved appearing edema from last visit, L foot warm and appropriately pink, sensory and motor intact Assessment & Plan Assessment/Plan (1) Acute GI bleeding: (2) Anemia: PLAN: Plan Patient is a 74-year-old male who presented to [facility] ED on 07/13/24 with dark blood with clots noted in ostomy bag. Suspected upper GI bleed with acute blood loss anemia, known erosive esophagitis with esophageal stenosis ? Initial EGD on 07/04 showed grade D erosive esophagitis with bleeding noted, chronic duodenitis and benign-appearing esophageal stenoses that were dilated. High likelihood of upper GI bleed after restarting Eliquis on discharge given hemoglobin drop from 12.0 to 8.4 and very elevated BUN. ? Repeat upper endoscopy after being restarted back on anticoagulation : Findings: One cratered esophageal ulcer actively bleeding was found 39 to 41 cm from the incisors. The lesion was 5 mm in largest dimension. Area was successfully injected with 15 mL of a 0.1 mg/mL solution of epinephrine for drug delivery. Estimated blood loss was minimal. Coagulation for bleeding prevention using argon plasma at 0.3 liters/minute and 15 grover was successful. Estimated blood loss was minimal. One linear esophageal ulcer actively bleeding was found 40 to 42 cm from the incisors. The lesion was 8 mm in largest dimension. To stop active bleeding, one hemostatic clip was successfully placed. Clip bracelet maker novelty: Jackpocket. There was no bleeding at the end of the procedure. Red blood was found in the entire examined stomach. Four 5 mm angiodysplastic lesions with bleeding on contact were found in the ampulla, in the second portion of the duodenum and in the fourth portion of the duodenum. Coagulation for destruction of remaining portion of lesion using argon plasma at 0.3 liters/minute and 20 grover was successful. Estimated blood loss was minimal. Impression: - Esophageal ulcer actively bleeding. Injected. Treated with argon plasma coagulation (APC). - Esophageal ulcer actively bleeding. Clip was placed. Clip bracelet maker novelty: Jackpocket. - Red blood in the entire stomach. 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 Treated with argon plasma coagulation (APC). - No specimens collected. Recommendation: HAS-BLED Score for Major Bleeding Risk: 6?points Scores greater than 5 were too rare to determine risk, but are likely over 10%. Alternatives to anticoagulation should be considered: Patient is at very high risk for major bleeding. Protonix 40 mg p.o. twice daily and Carafate 1 g 3 times a day Visit Charges Inpatient E&M: 29793 Init Hosp L3
[2024-07-17] MEDS: Atorvastatin Calcium 40 MG Tablet PO (21:01)
[2024-07-17] MEDS: Insulin Lispro 100 UNIT/ML INSULN.PEN SC (21:12)
[2024-07-17 21:49] LABS: Bedside Glucose 170 mg/dL (74-106)
[2024-07-18] VITALS (7 sets, daily range): BP systolic 106–140; BP diastolic 65–90; PULSE 84–102; RESP 14–22; TEMP 36.3–36.7; O2SAT 89–96; BMI 28.3
[2024-07-18] MEDS: Potassium Chloride 20 MEQ in Dextrose 5%-Water (1000mL Bag) 1,000 ML 75 MEQ IV (00:10)
[2024-07-18] MEDS: Levothyroxine 100 MCG Tablet PO (06:08)
[2024-07-18] MEDS: Insulin Lispro 100 UNIT/ML INSULN.PEN SC (06:08)
[2024-07-18 06:40] LABS: Bedside Glucose 189 mg/dL (74-106)
[2024-07-18] MEDS: Budesonide Respules 0.5 MG/2 ML AMPUL.NEB. INHALATION ×2 (07:19→19:51)
[2024-07-18] MEDS: Ipratropium/Albuterol Sulfate 3 ML AMPUL.NEB INHALATION ×3 (07:19→19:51)
[2024-07-18] MEDS: Finasteride 5 MG Tablet PO (09:24)
[2024-07-18] MEDS: Pantoprazole Sodium 40 MG in 0.9% Normal Saline (100mL MB+) 100 ML 330 MG IV ×2 (09:33→20:50)
[2024-07-18 09:37] LABS: Absolute Neutrophil Count 9.4 X10^3/uL (2.0-7.7); Basophil# 0.04 X10^3/uL; Basophil% 0.3 % (0-1); Eosinophil# 0.16 X10^3/uL; Eosinophils% 1.2 % (0-5); Hematocrit 23.5 % (40-54); Hemoglobin 7.4 g/dL (13.0-16.5); Lymphocyte % 9.8 % (19-41); Mean Corp Hgb Conc 31.5 g/dL (32-36); Mean Corpuscular Hgb 30.5 pg (27.0-32.0); Mean Corpuscular Volume 96.7 fL (80-94); Mean Platelet Vol. 11.9 fl (6.2-12.0); Monocyte# 2.29 X10^3/uL; Monocyte% 17.2 % (0-10); NRBC Flagged by Analyzer 0.4 % (0-5); Neutrophil # 9.42 X10^3/uL (2.7-7.7); Neutrophil % 70.6 % (47-70); POSITIVE DIFFERENTIAL YES; Platelet Count 163 K/mm3 (150-450); RBC Distribution Width CV 17.4 % (11.6-14.6); RBC Distribution Width SD 60.1 fl (35.1-43.9); Red Blood Count 2.43 M/mm3 (4.6-6.2); White Blood Count 13.3 K/mm3 (4.4-11.0)
[2024-07-18 09:41] LABS: Differential Indicated SCAN CRITERIA MET
[2024-07-18 10:05] LABS: Differential Comment SCANNED
[2024-07-18 10:29] LABS: Anion Gap 12 (5-15); BUN 34 mg/dL (4-19); BUN/Creat Ratio 17.8 RATIO (10-20); Calcium,Total 8.6 mg/dL (7.6-11.0); Carbon Dioxide 20.3 mmol/L (21.0-32.0); Chloride 113 mmol/L (98-108); EST Glomerular Filtration Rate 37 (>60); Estimated Creatinine Clearance 34.96 ml/min (50-250); Glucose 154 mg/dL (70-99); Potassium 3.6 mmol/L (3.3-5.1); Sodium Level 145 mmol/L (133-145)
[2024-07-18 11:41] LABS: Bedside Glucose 159 mg/dL (74-106)
--- NOTE | 2024-07-18 14:10 | PCM.PN.HOSP ---
Reason for Visit Reason for Visit: Diagnoses Anemia, unspecified (07/13/24) Peripheral vascular disease, unspecified (07/13/24) Arteriovenous fistula, acquired (07/13/24) Gastrointestinal hemorrhage, unspecified (07/13/24) Other specified postprocedural states (07/13/24) Objective Data Objective Data Vital Signs: Vital Signs Temp Pulse Resp BP Pulse Ox O2 Del Method O2 Flow Rate 97.4 F L 98 16 112/66 89 Nasal Cannula 3 07/18/24 08:00 07/18/24 13:08 07/18/24 13:08 07/18/24 08:00 07/18/24 13:08 07/18/24 13:08 07/18/24 13:08 Oxygen Flow Rate (L/min) 3 Oxygen Delivery Method Nasal Cannula Weight: 180 lb 12.465 oz Body Mass Index (BMI) 28.3 Intake & Output: Intake and Output for Last 24 Hours 07/16/24 07/17/24 07/18/24 23:59 23:59 23:59 Intake Total 440 / 440 2080 / 2080 170 / 170 Output Total 1999 / 1999 1650 / 1875 875 / 875 Balance -1560 / -1560 430 / 205 -705 / -705 Lab / Micro Data 07/18/24 09:15 07/18/24 09:15 Labs: Laboratory Results - last 24 hr 07/17/24 17:00: POC Glucose 131 H 07/17/24 21:11: POC Glucose 170 H 07/18/24 06:07: POC Glucose 189 H 07/18/24 09:15: WBC 13.3 H, RBC 2.43 L, Hgb 7.4 L, Hct 23.5 L, MCV 96.7 H, MCH 30.5, MCHC 31.5 L, RDW Std Deviation 60.1 H, RDW Coeff of Yanira 17.4 H, Plt Count 163, MPV 11.9, Immature Gran % (Auto) 0.900, Neut % (Auto) 70.6 H, Lymph % (Auto) 9.8 L, Harris % (Auto) 17.2 H, Eos % (Auto) 1.2, Baso % (Auto) 0.3, Absolute Neuts (auto) 9.4 H, Absolute Lymphs (auto) 1.30, Nucleated RBC % 0.4, Differential Comment SCANNED, Sodium 145, Potassium 3.6, Chloride 113 H, Carbon Dioxide 20.3 L, Anion Gap 12, BUN 34 H, Creatinine 1.90 H, Estim Creat Clear Calc 34.96 L, Est GFR (MDRD) Non-Af 37 L, BUN/Creatinine Ratio 17.8, Glucose 154 H, Calcium 8.6 07/18/24 11:15: POC Glucose 159 H Physical Exam Narrative Seen and examined. No significant improvement. hemoglobin and platelet are low. Electrolytes sodium and chloride are high. Patient has significant swelling/bruising noted in left arm at recent surgical insertion site for angiogram for left lower extremity AV fistula, angioplasty and stent of left profundofemoral artery. Left lower extremity still swollen. Seen and examined. General: Alert, Oriented x3, Cooperative HEENT: Atraumatic, PERRLA, EOMI, Normocephalic Oral: No Gingival or Mucosal Lesions/ Ulcerations Neck: Supple, No JVD, Negative Carotid Bruits Chest wall/Lungs: Air entry diminished in bilateral lung bases. No crepitation Cardiovascular: Sinus rhythm, Normal S1, Normal S2, systolic murmur. Decreased pulsation in the left lower extremity, PT/DP probably because of edema Abdomen: Bowel Sounds Present, Soft, Non Tender, Non-Distended : No dysuria. No renal angle tenderness. No suprapubic tenderness. Extremities: Left lower extremity edematous capillary Refill Less than 3 Seconds Skin: No rashes, No breakdown Musculoskeletal: No Tenderness to Palpation of Joints or Extremities Neurological: Cranial nerves II-XII grossly intact, DTR 2+/4. No acute focal neurological deficit. Psych/Mental Status: Flat affect Const alert and no apparent distress Constitutional Narrative: Elderly male, chronically ill-appearing, unkempt appearing, alert but answering questions with only a few short appropriate responses, otherwise sitting back comfortably in bed and in no acute distress. General Appearance: cooperative and comfortable HEENT normocephalic, head/scalp atraumatic, hearing grossly normal bilaterally, nasal mucous membranes and turbinates normal and moist oral mucous membranes Eyes PERRL, EOMs intact bilaterally and conjunctivae normal Neck full ROM Chest inspection of chest normal Resp normal respiratory effort, normal air movement, no use of accessory muscles and clear to auscultation bilaterally Cardio no murmurs and peripheral pulses 2+ throughout Cardio Narrative: Tachycardic, regular rhythm. GI normal to inspection, nondistended, normoactive bowel sounds, soft to palpation, non-tender and non-distended Back/Spine normal ROM Extremity Extremity Narrative: Significant swelling/bruising noted in left arm at recent surgical insertion site. Neuro moves all extremities and no focal motor deficits Psych mental status grossly normal Psych Narrative: Flat affect. Assessment & Plan Assessment/Plan (1) Acute GI bleeding: (2) Anemia: PLAN: Plan Patient is a 74-year-old male who presented to [facility] ED on 07/13/24 with dark blood with clots noted in ostomy bag. Patient denies abdominal pain nausea or vomiting. 1. Acute upper GI bleed with acute blood loss anemia, known erosive esophagitis with esophageal stenosis ? Admit under inpatient status to PCU. GI consulted. Recent EGD on 07/04 showed grade D erosive esophagitis with bleeding noted, chronic duodenitis and benign-appearing esophageal stenoses that were dilated. High likelihood of upper GI bleed after restarting Eliquis on discharge given hemoglobin drop from 12.0 to 8.4 and very elevated BUN. Maintain n.p.o. status for likely EGD and treat with IV PPI twice daily for now. Follow-up a.m. CBC. Hold Eliquis and aspirin for now. 07/14: EGD done today. Impression: - Esophageal ulcer actively bleeding. Injected. Treated with argon plasma coagulation (APC). - Esophageal ulcer actively bleeding. Clip was placed. 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 - Red blood in the entire stomach. 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 Treated with argon plasma coagulation (APC). - No specimens collected. Continue IV PPI every 12 hourly. H&H 6.6/20.6. 1 unit of PRBC ordered.. Poor IV access therefore required midline. Baseline hemoglobin 11 to 12 g. 07/15: H&H 6.8/22%. 1 L PRBC ordered 07/16: H&H 7.5/23%. Platelet count 121K. 07/17: With platelet and hemoglobin low hard to start on antiplatelet agent. Continue IV PPI 07/18: No significant improvement. IV iron ordered. Serum iron, TIBC, ferritin, reticulocyte panel ordered 2. Severe PAD with history of revascularization and recent left femoral arteriovenous fistula placement, history of LLE DVT ? Follows with vascular surgery. Had left femoral AV fistula placement done with Dr. Thompson on 07/06. Tolerated procedure well but does have significant left arm swelling with bruising noted. Left lower extremity with swelling improved from last admission. Holding Eliquis and aspirin as above and will need to discuss with vascular surgery on need for these going forward. 07/15: Seen by vascular surgeon PA. Advised to discontinue Eliquis and would start aspirin 81 mg daily but patient still very anemic hemoglobin less than 7 g therefore we will hold on starting baby aspirin 07/17: Discussed with Dr. Thompson. Plan for this hospitalization will be manage all comorbidities and if hemoglobin and platelet count permits, start antiplatelet agent aspirin either inpatient or may be outpatient. Patient had AV fistula as mentioned above that was stented. Long-term plan will be either open or endovascular surgery of the iliac stenosis 3. Acute on chronic debility ? PT/OT/case management consulted. Patient came from SNF and will presumably need to return to SNF on discharge. 4. Dysphagia ? Speech therapy consulted. Known history of dysphagia and speech therapy followed during prior admission. 07/16: Mild crepitation right lung base. Advised incentive spirometry. 07/14 lungs clear. Encouraged to continue incentive spirometry 5. Mild FIOR on CKD stage IIIb ? Creatinine 2.20 on admit, baseline around 1.4-1.6. Presume secondary to blood loss as noted above. IV fluid resuscitation given in ED, follow-up a.m. BMP and monitor urine output. 07/14: BUN/creatinine 72/2.12. 07/15: BUN/creatinine 76/2.24. 07/17: BUN/creatinine 52/2.04. Patient did not had significant improvement in creatinine in 5 days therefore I feel this is a new baseline. Hypernatremia, hyperchloremia. D5W ordered 07/18: BUN/creatinine 34/1.9. Gradual slight improvement. Patient has hypernatremia, hyperchloremia therefore D5W ordered. 6. History of chronic urinary retention with chronic Maddox catheter, recent complicated UTI ? Patient with complicated UTI with MRSA during most recent admission. Completed course of p.o. linezolid on discharge. No need for further antibiotics at this time. Chronic medical conditions: ? History of CVA with residual left-sided weakness, hypertension, hyperlipidemia: Continue home statin. Holding home aspirin as noted above. ? Type 2 diabetes mellitus: Holding home linagliptin. Will treat with sliding scale insulin with meals while inpatient. ? Hypothyroidism: Continue home Synthroid. ? History of rectal cancer s/p chemotherapy and radiation therapy and resection of left colon and entire rectum with permanent colostomy placement in 2020: Continue outpatient follow-up with oncology. 07/14: There was black tarry liquidy stool in the bag. ? History of AAA without rupture: Outpatient follow-up. ? GERD: Treating with IV PPI twice daily as noted above. DVT prophylaxis: SCDs CODE STATUS: Full code, verified Expected disposition: Likely back to SNF, TBD Charges/Coding Visit Charges Inpatient E&M: 55140 Subs Hosp L2
[2024-07-18 15:16] LABS: Iron 11 ug/dL (65-175)
[2024-07-18] MEDS: Sodium Ferric Gluconat/Sucrose 250 MG in 0.9% Normal Saline (250mL Bag) 250 ML 135 MG IV (16:05)
[2024-07-18] MEDS: BMX LIQUID 180 ML 15 ML PO ×2 (17:30→20:50)
[2024-07-18 17:44] LABS: Bedside Glucose 116 mg/dL (74-106)
[2024-07-18] MEDS: Potassium Chloride 40 MEQ in Dextrose 5%-Water (1000mL Bag) 1,000 ML 75 MEQ IV (18:41)
[2024-07-18 21:11] LABS: Bedside Glucose 130 mg/dL (74-106)
[2024-07-19] VITALS (8 sets, daily range): BP systolic 115–125; BP diastolic 63–72; PULSE 83–94; RESP 16–20; TEMP 36.7–37; O2SAT 90–98; BMI 28.2
[2024-07-19 06:15] LABS: Absolute Neutrophil Count 9.5 X10^3/uL (2.0-7.7); Basophil# 0.03 X10^3/uL; Basophil% 0.2 % (0-1); Eosinophil# 0.29 X10^3/uL; Eosinophils% 2.3 % (0-5); Hematocrit 21.9 % (40-54); Hemoglobin 6.7 g/dL (13.0-16.5); Lymphocyte % 8.5 % (19-41); Mean Corp Hgb Conc 30.6 g/dL (32-36); Mean Corpuscular Hgb 29.8 pg (27.0-32.0); Mean Corpuscular Volume 97.3 fL (80-94); Mean Platelet Vol. 12.2 fl (6.2-12.0); Monocyte# 1.81 X10^3/uL; Monocyte% 14.1 % (0-10); NRBC Flagged by Analyzer 0.7 % (0-5); Neutrophil # 9.45 X10^3/uL (2.7-7.7); Neutrophil % 73.3 % (47-70); POSITIVE DIFFERENTIAL YES; Platelet Count 166 K/mm3 (150-450); RBC Distribution Width CV 17.2 % (11.6-14.6); RBC Distribution Width SD 59.7 fl (35.1-43.9); RET-HE 28.3 pg (30-35); Red Blood Count 2.25 M/mm3 (4.6-6.2); Reticulocyte Count 0.77 % (0.5-1.5); White Blood Count 12.9 K/mm3 (4.4-11.0)
[2024-07-19 06:21] LABS: Differential Indicated SCAN CRITERIA MET
[2024-07-19 06:47] LABS: Bedside Glucose 144 mg/dL (74-106)
[2024-07-19 06:51] LABS: Anion Gap 9 (5-15); BUN 26 mg/dL (4-19); BUN/Creat Ratio 14.6 RATIO (10-20); Calcium,Total 8.5 mg/dL (7.6-11.0); Carbon Dioxide 22.5 mmol/L (21.0-32.0); Chloride 112 mmol/L (98-108); Creatinine, Serum 1.77 mg/dL (0.70-1.20); EST Glomerular Filtration Rate 40 (>60); Estimated Creatinine Clearance 37.48 ml/min (50-250); Ferritin 345 ng/mL (37-417); Glucose 154 mg/dL (70-99); Potassium 3.8 mmol/L (3.3-5.1); Sodium Level 144 mmol/L (133-145)
[2024-07-19] MEDS: Ipratropium/Albuterol Sulfate 3 ML AMPUL.NEB INHALATION ×3 (07:09→19:20)
[2024-07-19] MEDS: Budesonide Respules 0.5 MG/2 ML AMPUL.NEB. INHALATION ×2 (07:09→19:20)
[2024-07-19 07:12] LABS: Iron 25 ug/dL (65-175); Iron Binding Capacity,Unsat 125 ug/dL (228-428)
[2024-07-19 08:15] LABS: Differential Comment SCANNED
--- NOTE | 2024-07-19 08:20 | SP.MBSS_ITS ---
Modified Barium Swallow Patient Information Study Date: 07/19/24 Study Time: 09:00 Diagnosis: Acute GI bleeding K92.2 Referring Physician: Miguel Ortiz Reason for Referral: Assess swallow function, assess risk for aspiration, and determine recommendations for least restrictive diet textures and compensatory strategies to improve safety of swallow. Medical History: PMH: DVT, Enteritis, Cholelithiasis, Lactic acidosis, Encephalopathy due to infection, Acute hypoxemic respiratory failure, Complicated UTI, Severe sepsis with acute organ dysfunction, Aspiration into respiratory tract, FIOR, Colon cancer, Oropharyngeal and esophageal dysphagia. Hx of CVA (2014 per pt, Chronic L sided weakness per charting from previous acute stay). The patient presented to [facility] 07/13/2024 with dark blood with clots in ostomy bag. Patient admitted for ABLA and GI bleed. EGD 07/14/2024: ?Impression: - Esophageal ulcer actively bleeding. Injected. Treated with argon plasma coagulation (APC). - Esophageal ulcer actively bleeding. Clip was placed. 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 - Red blood in the entire stomach. 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 Treated with argon plasma coagulation (APC). - No specimens collected. Recommendation: - Return patient to [facility] for [facility] care. - Clear liquid diet today. - Continue present medications.? He was placed on clear liquids. ST recommended pt continue clear liquids via tsp sips. Pt not tolerating tsp sips of thin clear liquids, even w/ total feeding assistance. 07/18/2024, Pt demonstrated worsening diet tolerance w/ HOTEL SERVER and pt was made NPO w/ sips of water by tsp permitted. HOTEL SERVER recommended repeat MBSS today to re- assess aspiration risk to determine recommendations for LRD textures, and Dr. Ortiz cleared the patient?s participation in MBSS. Patient is familiar to this ST department from prior hospitalization in December 2023 w/ MBSS completed on 01/12/2024.? Recommendations were as follows: ?Diet: Full Thin Liquids?TOTAL FEED?GI consult.? EGD 01/11/2025 revealed ?Esophageal mucosal changes consistent with eosinophilic esophagitis?Benign-appearing esophageal stenoses. Dilated?Hiatal hernia?No gross lesions in the stomach?Normal second portion of the duodenum?Biopsies were taken with a cold forceps for evaluation of eosinophilic esophagitis.? Patient was discharged from that hospital stay on puree textures / thin liquids. He had an additional hospitalization at [facility] on 07/01/2024 for acute UTI w/ nausea and vomiting. MBSS completed during this hospitalization, which recommended minced and moist textures / thin liquids by tsp w/ direct supervision w/ GI consult and repeat EGD. EGD 07/04/2024 revealed ?Impression: - LA Grade D erosive esophagitis with bleeding. Biopsied. - Benign-appearing esophageal stenoses. Dilated. - No gross lesions in the entire stomach. - Chronic duodenitis.? He was discharged from hospitalization on puree textures / thin liquids by tsp w/ TOTAL FEED, which is the diet he remained on at until return for this acute stay. Current Diet Ordered: NPO - ok for water by tsp TOTAL FEED Dentition: Missing Teeth Mental Status: Impaired (acute confusion) Respiratory Status: Oxygenating on 3L/M nasal cannula Penetration-Aspiration Scale Penetration-Aspiration Scale: OBJECTIVE ASSESSMENT OF SWALLOW FUNCTION (QUANTITATIVE ? PER TRIAL): PENETRATION / ASPIRATION SCALE (GREER): 1 = does not enter airway 2 = enters airway/above vocal folds/ejected 3 = enters airway/above vocal folds/not ejected 4 = enters airway/contacts vocal folds/ejected 5 = enters airway/contacts vocal folds/not ejected 6 = enters airway/below vocal folds/ejected 7 = enters airway/below vocal folds/not ejected despite effort 8 = enters airway/below vocal folds/no effort VIDEOFLOROSCOPIC SCALE SCORE (GREER): Grade I = aspiration of material that has penetrated into the laryngeal vestibule, intact cough reflex Grade II = aspiration < 10 % of the bolus, intact cough reflex Grade III = aspiration of < 10 % of the bolus, reduced cough reflex or aspiration of > 10 % of the bolus, intact cough reflex Grade IV = aspiration of > 10 % of the bolus, reduced cough reflex Penetration-Aspiration Scale Score Thin Liquid via teaspoon: Comment: Unable to provide PAS score as the bolus did not clear past the oropharynx. HOTEL SERVER suspects the barium was suspended in the oropharynx on phlegm, which mostly cleared w/ use of Yankauer suction used after the next trial. Pharyngeal Phase Pharyngeal Residue: Minimal to no pharyngeal clearance (1st trial, HOTEL SERVER suspects barium was suspended in phlegm in throat, which mostly cleared w/ use of Yankauer 2X and subsequent swallows of liquids) Diagnosis/Impression Diagnosis: Severe oropharyngeal dysphagia R13.12; Esophageal dysphagia R13.14 Recommendations Diet: Puree Textures and Thin Liquids Comment: Frequent oral care Compensatory Strategies: Small Bites (3 SWALLOWS EACH BITE, INTERMITTENT LIQUID WASH), Small Sips (LIQUID BY TSP, HARD SWALLOWS EACH SIP, COUGH AND RE-SWALLOW AFTER EACH SIP), Slow Rate, Alternate bites/solids and sips/liquids and Sitting upright (DURING AND 30 MIN AFTER PO INTAKE) Supervision: Total Feed Recommend Repeat Modified Barium Swallow: TBD Need for Skilled Speech Therapy Services: Yes Comment: -Train the patient, family, and staff in use of strict precautions to decrease risk for aspiration and reflux aspiration. -Ongoing assessment of diet tolerance of recommended textures. -Train the patient in oropharyngeal exercise program. Recommended Referrals: Dietitian Consult (Lithoplate Maker already following. HOTEL SERVER informed derrick builderChristiana, of very strict precautions so derrick builder could recommend fortified food/drink for the patient.) Education Completed: 1. Described result of evaluation., 2. Pt understands evaluation & agrees with goals and treatment plan. and 7. Pt requires further education on strategies & risks. Comment: HOTEL SERVER reviewed results of MBSS w/ RN, Rupa, SECONDARY TEACHER, and student nurse. Education well received by all and HOTEL SERVER posted recommendations in the patient's room. HOTEL SERVER voiced concern to Dr. Ortiz about the pt having difficulty sustaining hydration and nutrition via strict diet and aspiration precautions. After discussion w/ Dr. Ortiz, the patient is not appropriate for tube feeding given complex medical status and GI history. HOTEL SERVER contacted the derrick builder about any additional recommendations for improving nutritional/caloric intake. Status Active ST Patient: Active Contact Information [facility] Speech Therapy:: Ya Lua M.A. [facility]-HOTEL SERVER? Speech-Language Pathologist?? [facility] [address] [place] [address]? [email or web address]?? [phone]
--- NOTE | 2024-07-19 08:20 | ST.MBS ---
Modified Barium Swallow Patient Information Study Date: 07/19/24 Study Time: 09:00 Direct Billable Minutes: 115 Total Minutes procedure & reportin Diagnosis: Acute GI bleeding K92.2 Referring Physician: Miguel Ortiz Reason for Referral: Assess swallow function, assess risk for aspiration, and determine recommendations for least restrictive diet textures and compensatory strategies to improve safety of swallow. Medical History: PMH: DVT, Enteritis, Cholelithiasis, Lactic acidosis, Encephalopathy due to infection, Acute hypoxemic respiratory failure, Complicated UTI, Severe sepsis with acute organ dysfunction, Aspiration into respiratory tract, FIOR, Colon cancer, Oropharyngeal and esophageal dysphagia. Hx of CVA (2013 per pt, Chronic L sided weakness per charting from previous acute stay). The patient presented to [facility] 07/13/2024 with dark blood with clots in ostomy bag. Patient admitted for ABLA and GI bleed. EGD 07/14/2024: ?Impression: - Esophageal ulcer actively bleeding. Injected. Treated with argon plasma coagulation (APC). - Esophageal ulcer actively bleeding. Clip was placed. 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 - Red blood in the entire stomach. 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 Treated with argon plasma coagulation (APC). - No specimens collected. Recommendation: - Return patient to [facility] for [facility] care. - Clear liquid diet today. - Continue present medications.? He was placed on clear liquids. ST recommended pt continue clear liquids via tsp sips. Pt not tolerating tsp sips of thin clear liquids, even w/ total feeding assistance. 07/18/2024, Pt demonstrated worsening diet tolerance w/ TECH ED TEACHER and pt was made NPO w/ sips of water by tsp permitted. TECH ED TEACHER recommended repeat MBSS today to re-assess aspiration risk to determine recommendations for LRD textures, and Dr. Ortiz cleared the patient?s participation in MBSS. Patient is familiar to this ST department from prior hospitalization in December 2023 w/ MBSS completed on 01/12/2024.? Recommendations were as follows: ?Diet: Full Thin Liquids?TOTAL FEED?GI consult.? EGD 01/11/2025 revealed ?Esophageal mucosal changes consistent with eosinophilic esophagitis?Benign-appearing esophageal stenoses. Dilated?Hiatal hernia?No gross lesions in the stomach?Normal second portion of the duodenum?Biopsies were taken with a cold forceps for evaluation of eosinophilic esophagitis.? Patient was discharged from that hospital stay on puree textures / thin liquids. He had an additional hospitalization at [facility] on 07/01/2024 for acute UTI w/ nausea and vomiting. MBSS completed during this hospitalization, which recommended minced and moist textures / thin liquids by tsp w/ direct supervision w/ GI consult and repeat EGD. EGD 07/04/2024 revealed ?Impression: - LA Grade D erosive esophagitis with bleeding. Biopsied. - Benign-appearing esophageal stenoses. Dilated. - No gross lesions in the entire stomach. - Chronic duodenitis.? He was discharged from hospitalization on puree textures / thin liquids by tsp w/ TOTAL FEED, which is the diet he remained on at [facility] until return for this acute stay. Current Diet Ordered: NPO - ok for water by tsp TOTAL FEED Dentition: Missing Teeth Mental Status: Impaired (acute confusion) Respiratory Status: Oxygenating on 3L/M nasal cannula Penetration-Aspiration Scale Penetration-Aspiration Scale: OBJECTIVE ASSESSMENT OF SWALLOW FUNCTION (QUANTITATIVE ? PER TRIAL): PENETRATION / ASPIRATION SCALE (GREER): 1 = does not enter airway 2 = enters airway/above vocal folds/ejected 3 = enters airway/above vocal folds/not ejected 4 = enters airway/contacts vocal folds/ejected 5 = enters airway/contacts vocal folds/not ejected 6 = enters airway/below vocal folds/ejected 7 = enters airway/below vocal folds/not ejected despite effort 8 = enters airway/below vocal folds/no effort VIDEOFLOROSCOPIC SCALE SCORE (GREER): Grade I = aspiration of material that has penetrated into the laryngeal vestibule, intact cough reflex Grade II = aspiration < 10 % of the bolus, intact cough reflex Grade III = aspiration of < 10 % of the bolus, reduced cough reflex or aspiration of > 10 % of the bolus, intact cough reflex Grade IV = aspiration of > 10 % of the bolus, reduced cough reflex Penetration-Aspiration Scale Score Thin Liquid via teaspoon: Comment: Unable to provide PAS score as the bolus did not clear past the oropharynx. TECH ED TEACHER suspects the barium was suspended in the oropharynx on phlegm, which mostly cleared w/ use of Yankauer suction used after the next trial. Thin Liquid via teaspoon Trial 2: Result: 1= does not enter airway Thin Liquid via teaspoon Trial 3: Result: 5= enters airways/contacts vocal folds/not ejected [place] Thick Liquid via teaspoon: Result: 1= does not enter airway [place] Thick Liquid via teaspoon Trial 2: Result: 8= enters airway/below vocal folds/no effort [place] Thick Liquid via teaspoon: Result: 3= enters airways/above vocal folds/not ejected Comment: Cued cough and re-swallow = mostly effective in clearing contrast from laryngeal vestibule. Yankauer suction provided again to help clear phlegm. Pudding via teaspoon: Result: 1= does not enter airway Comment: Post prandial aspiration of honey/moderately thickened liquids spilling to the laryngeal vestibule from the pyriform sinuses during the swallow w/ weak, delayed, and ineffective cough reflex. Esophageal screen - Mild retention in the lower esophagus. Thin Liquid via large single sip: cup: Comment: TECH ED TEACHER trialed a cup sip to see if increased bolus size (more weighted bolus) improved swallow onset and clearance of bolus through the UES. It resulted in greatly increased amount of aspiration and cup sips were discontinued. Thin Liquid via teaspoon Effortful swallow: Result: 2= enter airway/above vocal folds/ejected Thin Liquid via teaspoon Effortful swallow Trial 2: Result: 3= enters airways/above vocal folds/not ejected Pudding via teaspoon Trial 2: Result: 1= does not enter airway Comment: Cued 3 swallows to clear pudding through the pharynx Thin Liquid via teaspoon Effortful swallow Trial 3: Result: 7= enters airways/below vocal folds/not ejected despite effort Comment: Cued cough and re-swallow = somewhat effective. Thin Liquid via teaspoon Chin tuck: Result: 7= enters airways/below vocal folds/not ejected despite effort Comment: Greatly increased amount of aspiration Thin Liquid via teaspoon Left head turn: Result: 7= enters airways/below vocal folds/not ejected despite effort Comment: Esophageal screen - Mild retention in the lower esophagus. Oral Phase Labial Seal: Escape beyond mid-chin Tongue Control During Bolus Hold: Posterior escape of greater than half of bolus Bolus Transport/Lingual Motion: Repetitive/disorganized tongue motion Oral Residue: Majority of bolus remaining Pharyngeal Phase Initiation of Pharyngeal Swallow: Bolus head in pyriforms Soft Palate Elevation: Trace column of contrast/air between soft palate and pharyngeal wall Laryngeal Elevation: Partial superior movement thyroid cart/partial apprx aryt-epig petiole Anterior Hyoid Excursion: Partial anterior movement Epiglottic Movement: Partial inversion Laryngeal Vestibule Closure at Height of Swallow: Incomplete; narrow column of air/contrast in laryngeal vestibule Pharyngeal Stripping Wave: Present - diminished Pharyngoesophageal Segment Opening: Minimal distension and minimal duration; marked obstruction of flow Tongue Base Retraction: Wide column of contrast between tongue base & post. pharyngeal wall Pharyngeal Residue: Minimal to no pharyngeal clearance (1st trial, TECH ED TEACHER suspects barium was suspended in phlegm in throat, which mostly cleared w/ use of Yankauer 2X and subsequent swallows of liquids) Esophageal Phase Esophageal Clearance: Esophageal retention Diagnosis/Impression Diagnosis: Severe oropharyngeal dysphagia R13.12; Esophageal dysphagia R13.14 Impression: The oral phase is primarily marked by... -Poor labial seal w/ anterior loss of liquids past mid-chin. -Decreased bolus control w/ posterior loss of >1/2 of certain liquid trials to the pyriforms prior to swallow onset. -Moderate-severe oral residue, which mostly cleared w/ multiple swallows. -Did not assess cookie due to concerns for choking given poor pharyngeal clearance and poor bolus control. The pharyngeal phase is primarily marked by... -Delayed swallow onset. -Decreased pharyngeal motility due to decreased TB retraction, pharyngeal stripping wave, and UES opening/duration w/ moderate-severe pharyngeal residue, which improved w/ multiple swallows. No pharyngeal clearance of first trial, which appeared suspended in the oropharynx. TECH ED TEACHER believes the barium was suspended on phlegm, which was then cleared w/ Yankauer suction. -Decreased airway closure due to decreased anterior hyoid excursion, laryngeal elevation, and partial epiglottic inversion. -SILENT aspiration of mildly thick liquids by tsp. Koko aspiration of thin liquids via cup, thin liquids via tsp w/effortful swallow, thin liquids via tsp w/ chin tuck, and thin liquids via tsp w/ L head turn. The patient experienced a greatly increased amount of aspiration with thin liquids via cup and thin liquids via tsp w/ use of a chin tuck. Use of tsp sips, effortful swallows, and [id number]-swallows decreased the amount of aspiration. The esophageal phase is primarily marked by... -Mild retention of pudding and thin liquids in the lower esophagus. Recommendations Diet: Puree Textures and Thin Liquids Comment: Frequent oral care w/ Yankauer suction available Compensatory Strategies: Small Bites (3 SWALLOWS EACH BITE, INTERMITTENT LIQUID WASH), Small Sips (LIQUID BY TSP, HARD SWALLOWS EACH SIP, COUGH AND RE-SWALLOW AFTER EACH SIP), Slow Rate, Alternate bites/solids and sips/liquids and Sitting upright (DURING AND 30 MIN AFTER PO INTAKE) Supervision: Total Feed Recommend Repeat Modified Barium Swallow: TBD Need for Skilled Speech Therapy Services: Yes Comment: -Train the patient, family, and staff in use of strict precautions to decrease risk for aspiration and reflux aspiration. -Ongoing assessment of diet tolerance of recommended textures. -Train the patient in oropharyngeal exercise program (lingual resistance, effortful swallows, Tres). Recommended Referrals: GI Consult (GI is following.) and Dietitian Consult (Waiver Analyst already following. TECH ED TEACHER informed veneer markerChristiana, of very strict precautions so veneer marker could recommend fortified food/drink for the patient.) Education Completed: 1. Described result of evaluation., 2. Pt understands evaluation & agrees with goals and treatment plan. and 7. Pt requires further education on strategies & risks. Comment: TECH ED TEACHER reviewed results of MBSS w/ RN, Rupa, PRICE CLERK, and student nurse. Education well received by all and TECH ED TEACHER posted recommendations in the patient's room. TECH ED TEACHER voiced concern to Dr. Ortiz about the pt having difficulty sustaining hydration and nutrition via strict diet and aspiration precautions. After discussion w/ Dr. Ortiz, the patient is not appropriate for tube feeding given complex medical status and GI history. TECH ED TEACHER contacted the veneer marker about any additional recommendations for improving nutritional/caloric intake. Status Active ST Patient: Active Contact Information [facility] Speech Therapy:: Ya Lua M.A. [facility]-TECH ED TEACHER? Speech-Language Pathologist?? [facility] [address] [place] [address]? [email or web address]?? [phone]
[2024-07-19] MEDS: Finasteride 5 MG Tablet PO (10:32)
[2024-07-19] MEDS: Pantoprazole Sodium 40 MG in 0.9% Normal Saline (100mL MB+) 100 ML 330 MG IV ×2 (10:33→23:30)
[2024-07-19] MEDS: Sodium Ferric Gluconat/Sucrose 250 MG in 0.9% Normal Saline (250mL Bag) 250 ML 135 MG IV (11:40)
[2024-07-19 11:42] LABS: Bedside Glucose 135 mg/dL (74-106)
[2024-07-19] MEDS: Potassium Chloride 40 MEQ in Dextrose 5%-Water (1000mL Bag) 1,000 ML 75 MEQ IV (15:03)
--- NOTE | 2024-07-19 15:46 | PN.HOSP_ITS ---
Reason for Visit Reason for Visit: Diagnoses Anemia, unspecified (07/13/24) Peripheral vascular disease, unspecified (07/13/24) Arteriovenous fistula, acquired (07/13/24) Gastrointestinal hemorrhage, unspecified (07/13/24) Other specified postprocedural states (07/13/24) Objective Data Objective Data Vital Signs: Vital Signs Temp Pulse Resp BP Pulse Ox O2 Del Method O2 Flow Rate 98.1 F 91 20 H 117/63 98 Nasal Cannula 3 07/19/24 08:00 07/19/24 13:10 07/19/24 13:10 07/19/24 08:00 07/19/24 10:40 07/19/24 08:00 07/19/24 10:40 Oxygen Flow Rate (L/min) 3 Oxygen Delivery Method Nasal Cannula Weight: 180 lb 5.41 oz Body Mass Index (BMI) 28.2 Intake & Output: Intake and Output for Last 24 Hours 07/17/24 07/18/24 07/19/24 23:59 23:59 23:59 Intake Total 2080 / 2080 1620 / 1620 1130 / 1130 Output Total 1650 / 1875 1275 / 1725 820 / 820 Balance 430 / 205 345 / -105 310 / 310 Lab / Micro Data 07/19/24 05:40 07/19/24 05:40 Labs: Laboratory Results - last 24 hr 07/18/24 17:24: POC Glucose 116 H 07/18/24 20:42: POC Glucose 130 H 07/19/24 05:40: WBC 12.9 H, RBC 2.25 L, Hgb 6.7 L, Hct 21.9 L, MCV 97.3 H, MCH 29.8, MCHC 30.6 L, RDW Std Deviation 59.7 H, RDW Coeff of Yanira 17.2 H, Plt Count 166, MPV 12.2 H, Immature Gran % (Auto) 1.600 H, Neut % (Auto) 73.3 H, Lymph % (Auto) 8.5 L, Bucks % (Auto) 14.1 H, Eos % (Auto) 2.3, Baso % (Auto) 0.2, A bsolute Neuts (auto) 9.5 H, Absolute Lymphs (auto) 1.10, Nucleated RBC % 0.7, Differential Comment SCANNED, Retic Count 0.77, Immature Retic Fraction 10.50, R etic Hgb Equivalent 28.3 L, Sodium 144, Potassium 3.8, Chloride 112 H, Carbon Dioxide 22.5, Anion Gap 9, BUN 26 H, Creatinine 1.77 H, Estim Creat Clear Calc 37.48 L, Est GFR (MDRD) Non-Af 40 L, BUN/Creatinine Ratio 14.6, Glucose 154 H, Calcium 8.5, Iron 25 L, TIBC TNP, Iron Saturation 17.0, Unsaturated IBC 125 L, Ferritin 345 07/19/24 06:26: POC Glucose 144 H 07/19/24 11:15: POC Glucose 135 H Physical Exam Narrative Seen and examined. Platelet is 6.7. Left leg swelling looks better. Patient on one-to-one supervision for feeding. Patient has mild swelling/bruising noted in left arm at recent surgical insertion site for angiogram for left lower extremity AV fistula, angioplasty and stent of left profundofemoral artery. Left lower extremity still swollen. Seen and examined. General: Alert, Oriented x3, Cooperative HEENT: Atraumatic, PERRLA, EOMI, Normocephalic Oral: Colored with the barium. Previously it was red because of Jell-O Neck: Supple, No JVD, Negative Carotid Bruits Chest wall/Lungs: Air entry diminished in bilateral lung bases. No crepitation Cardiovascular: Sinus rhythm, Normal S1, Normal S2, systolic murmur. Decreased pulsation in the left lower extremity, PT/DP probably because of edema Abdomen: Bowel Sounds Present, Soft, Non Tender, Non-Distended : No dysuria. No renal angle tenderness. No suprapubic tenderness. Extremities: Left lower extremity edematous capillary Refill Less than 3 Seconds Skin: No rashes, No breakdown Musculoskeletal: No Tenderness to Palpation of Joints or Extremities Neurological: Cranial nerves II-XII grossly intact, DTR 2+/4. No acute focal neurological deficit. Psych/Mental Status: Flat affect Assessment & Plan Assessment/Plan (1) Acute GI bleeding: (2) Anemia: PLAN: Plan Patient is a 74-year-old male who presented to [facility] ED on 07/13/24 with dark blood with clots noted in ostomy bag. Patient denies abdominal pain nausea or vomiting. 1. Acute upper GI bleed with acute blood loss anemia, known erosive esophagitis with esophageal stenosis ? Admit under inpatient status to PCU. GI consulted. Recent EGD on 07/04 showed grade D erosive esophagitis with bleeding noted, chronic duodenitis and benign- appearing esophageal stenoses that were dilated. High likelihood of upper GI bleed after restarting Eliquis on discharge given hemoglobin drop from 12.0 to 8.4 and very elevated BUN. Maintain n.p.o. status for likely EGD and treat with IV PPI twice daily for now. Follow-up a.m. CBC. Hold Eliquis and aspirin for now. 07/14: EGD done today. Impression: - Esophageal ulcer actively bleeding. Injected. Treated with argon plasma coagulation (APC). - Esophageal ulcer actively bleeding. Clip was placed. 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 - Red blood in the entire stomach. 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 Treated with argon plasma coagulation (APC). - No specimens collected. Continue IV PPI every 12 hourly. H&H 6.6/.6. 1 unit of PRBC ordered.. Poor IV access therefore required midline. Baseline hemoglobin 11 to 12 g. 07/15: H&H 6.8/22%. 1 L PRBC ordered 07/16: H&H 7.5/23%. Platelet count 121K. 07/17: With platelet and hemoglobin low hard to start on antiplatelet agent. Continue IV PPI 07/18: No significant improvement. IV iron ordered. Serum iron, TIBC, ferritin, reticulocyte panel ordered 07/19: Iron workup shows low iron, iron saturation normal 17%, unsaturated IBC at 125 low and ferritin normal therefore his anemia is not due to iron deficiency. It is mainly due to chronic inflammatory disorder. Reticulocyte count also not elevated. Hemoglobin 6.7. Repeat H&H ordered. Patient had IV iron. 2. Severe PAD with history of revascularization and recent left femoral arteriovenous fistula placement, history of LLE DVT ? Follows with vascular surgery. Had left femoral AV fistula placement done with Dr. Thompson on 07/06. Tolerated procedure well but does have significant left arm swelling with bruising noted. Left lower extremity with swelling improved from last admission. Holding Eliquis and aspirin as above and will need to discuss with vascular surgery on need for these going forward. 07/15: Seen by vascular surgeon PA. Advised to discontinue Eliquis and would start aspirin 81 mg daily but patient still very anemic hemoglobin less than 7 g therefore we will hold on starting baby aspirin 07/17: Discussed with Dr. Thompson. Plan for this hospitalization will be manage all comorbidities and if hemoglobin and platelet count permits, start antiplatelet agent aspirin either inpatient or may be outpatient. Patient had AV fistula as mentioned above that was stented. Long-term plan will be either open or endovascular surgery of the iliac stenosis 3. Acute on chronic debility ? PT/OT/case management consulted. Patient came from SNF and will presumably need to return to SNF on discharge. 4. Dysphagia ? Speech therapy consulted. Known history of dysphagia and speech therapy followed during prior admission. 07/14 lungs clear. Encouraged to continue incentive spirometry 07/16: Mild crepitation right lung base. Advised incentive spirometry. 07/19: Patient had modified barium swallow and since patient has oropharyngeal dysphagia with high aspiration risk. Speech therapist recommended pur?ed texture and thin liquid with compensatory strategies. 5. Mild FIOR on CKD stage IIIb ? Creatinine 2.20 on admit, baseline around 1.4-1.6. Presume secondary to blood loss as noted above. IV fluid resuscitation given in ED, follow-up a.m. BMP and monitor urine output. 07/14: BUN/creatinine 72/2.12. 07/15: BUN/creatinine 76/2.24. 07/17: BUN/creatinine 52/2.04. Patient did not had significant improvement in creatinine in 5 days therefore I feel this is a new baseline. Hypernatremia, hyperchloremia. D5W ordered 07/18: BUN/creatinine 34/1.9. Gradual slight improvement. Patient has hypernatremia, hyperchloremia therefore D5W ordered. 6. History of chronic urinary retention with chronic Maddox catheter, recent complicated UTI ? Patient with complicated UTI with MRSA during most recent admission. Completed course of p.o. linezolid on discharge. No need for further antibiotics at this time. Chronic medical conditions: ? History of CVA with residual left-sided weakness, hypertension, hyperlipidemia: Continue home statin. Holding home aspirin as noted above. ? Type 2 diabetes mellitus: Holding home linagliptin. Will treat with sliding scale insulin with meals while inpatient. ? Hypothyroidism: Continue home Synthroid. ? History of rectal cancer s/p chemotherapy and radiation therapy and resection of left colon and entire rectum with permanent colostomy placement in 2020: Continue outpatient follow-up with oncology. 07/14: There was black tarry liquidy stool in the bag. ? History of AAA without rupture: Outpatient follow-up. ? GERD: Treating with IV PPI twice daily as noted above. DVT prophylaxis: SCDs CODE STATUS: Full code, verified Expected disposition: Likely back to SNF, TBD Charges/Coding Visit Charges Inpatient E&M: 50332 Subs Hosp L2
[2024-07-19 16:22] LABS: Hematocrit 23.3 % (40-54); Hemoglobin 7.2 g/dL (13.0-16.5)
[2024-07-19] MEDS: Insulin Lispro 100 UNIT/ML INSULN.PEN SC (16:47)
[2024-07-19 18:41] LABS: Hematocrit 24.4 % (40-54); Hemoglobin 7.5 g/dL (13.0-16.5)
[2024-07-19 21:40] LABS: Bedside Glucose 155 mg/dL (74-106)
[2024-07-19] MEDS: Atorvastatin Calcium 40 MG Tablet PO (23:30)
[2024-07-19 23:38] LABS: Bedside Glucose 129 mg/dL (74-106)
[2024-07-20] VITALS (9 sets, daily range): BP systolic 108–135; BP diastolic 59–100; PULSE 80–96; RESP 15–22; TEMP 36.3–36.8; O2SAT 90–99; BMI 29.0
[2024-07-20] MEDS: Levothyroxine 100 MCG Tablet PO (06:19)
[2024-07-20 06:39] LABS: Bedside Glucose 120 mg/dL (74-106)
[2024-07-20] MEDS: Budesonide Respules 0.5 MG/2 ML AMPUL.NEB. INHALATION ×2 (06:56→19:47)
[2024-07-20] MEDS: Ipratropium/Albuterol Sulfate 3 ML AMPUL.NEB INHALATION ×3 (06:56→19:47)
[2024-07-20 07:43] LABS: Hematocrit 21.2 % (40-54); Hemoglobin 6.6 g/dL (13.0-16.5); Mean Corp Hgb Conc 31.1 g/dL (32-36); Mean Corpuscular Hgb 30.1 pg (27.0-32.0); Mean Corpuscular Volume 96.8 fL (80-94); Mean Platelet Vol. 12.5 fl (6.2-12.0); POSITIVE COUNT YES; POSITIVE MORPHOLOGY YES; Platelet Count 178 K/mm3 (150-450); RBC Distribution Width CV 17.3 % (11.6-14.6); RBC Distribution Width SD 59.7 fl (35.1-43.9); Red Blood Count 2.19 M/mm3 (4.6-6.2); White Blood Count 11.4 K/mm3 (4.4-11.0)
[2024-07-20 07:48] LABS: Differential Indicated MANUAL DIFF
[2024-07-20 08:09] LABS: Anion Gap 8 (5-15); BUN 19 mg/dL (4-19); BUN/Creat Ratio 11.5 RATIO (10-20); Calcium,Total 8.5 mg/dL (7.6-11.0); Carbon Dioxide 22.3 mmol/L (21.0-32.0); Chloride 112 mmol/L (98-108); Creatinine, Serum 1.64 mg/dL (0.70-1.20); EST Glomerular Filtration Rate 44 (>60); Estimated Creatinine Clearance 40.93 ml/min (50-250); Glucose 121 mg/dL (70-99); Potassium 3.9 mmol/L (3.3-5.1); Sodium Level 142 mmol/L (133-145)
[2024-07-20] MEDS: Finasteride 5 MG Tablet PO (10:29)
[2024-07-20] MEDS: 0.9% Normal Saline (100mL Bag) 100 ML 15 ML IV (10:40)
[2024-07-20] MEDS: Pantoprazole Sodium 40 MG in 0.9% Normal Saline (100mL MB+) 100 ML 330 MG IV (10:41)
[2024-07-20] MEDS: 0.9% Saline Lock 10 ML Syringe IV (10:46)
[2024-07-20 10:57] LABS: Eosinophil 4 % (0-5); Lymphocyte 8 % (19-41); Metamyelocyte 1 % (0-1); Monocyte 6 % (0-10); Myelocyte 2 % (0-0); Neutrophil-Band 4 % (0-5); Neutrophil-Segmented 74 % (47-70); Nucleated Red Bld Cells,Manual 3 % (0-5); Promyelocyte 1 % (0-0); Total Cells Counted 100 (MANUAL DIFF)
[2024-07-20 10:58] LABS: Absolute Neutrophil Count 8.9 X10^3/uL (2.0-7.7); Platelet Estimate ADEQUATE (ADEQ); Red Cell Morphology NORM C+C NORMAL (NORM C&C)
--- NOTE | 2024-07-20 10:58 | CASEMGMT ---
Discharge Planning Updates sent to [facility] with note that pt may return today. Nadine Betts DC Planning Asst.
--- NOTE | 2024-07-20 11:33 | TREXTCAR_ITS ---
Diet Diet Order/Speech Therapy: 07/19/24 09:56 Diet: Regular - General Food consistency:: Pureed Liquid Consistency:: Regular/Thin Type of Dietary Supplement:: Ensure Clear TID apple Diet Comments: TOTAL FEED, liquids by tsp only, multiple swallows, hard swallows DC O2, CPAP, BIPAP needs Home O2 Discharge instructions: No Wound(s) colostomy: Wound Type: Surgical Incision rt handley: Wound Type: Skin Tear Problem/Diagnosis (1) Acute GI bleeding: Status: Acute Code(s): K92.2 - Gastrointestinal hemorrhage, unspecified (2) Anemia: Status: Acute Code(s): D64.9 - Anemia, unspecified Plan Patient is a 74-year-old male who presented to [facility] ED on 07/13/24 with dark blood with clots noted in ostomy bag. Patient denies abdominal pain nausea or vomiting. 1. Acute upper GI bleed with acute blood loss anemia, known erosive esophagitis with esophageal stenosis ? Admit under inpatient status to PCU. GI consulted. Recent EGD on 07/04 showed grade D erosive esophagitis with bleeding noted, chronic duodenitis and benign- appearing esophageal stenoses that were dilated. High likelihood of upper GI bleed after restarting Eliquis on discharge given hemoglobin drop from 12.0 to 8.4 and very elevated BUN. Maintain n.p.o. status for likely EGD and treat with IV PPI twice daily for now. Follow-up a.m. CBC. Hold Eliquis and aspirin for now. 07/14: EGD done today. Impression: - Esophageal ulcer actively bleeding. Injected. Treated with argon plasma coagulation (APC). - Esophageal ulcer actively bleeding. Clip was placed. 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 - Red blood in the entire stomach. 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 Treated with argon plasma coagulation (APC). - No specimens collected. Continue IV PPI every 12 hourly. H&H 6.6/20.6. 1 unit of PRBC ordered.. Poor IV access therefore required midline. Baseline hemoglobin 11 to 12 g. 07/15: H&H 6.8/22%. 1 L PRBC ordered 07/16: H&H 7.5/23%. Platelet count 121K. 07/17: With platelet and hemoglobin low hard to start on antiplatelet agent. Continue IV PPI 07/18: No significant improvement. IV iron ordered. Serum iron, TIBC, ferritin, reticulocyte panel ordered 07/19: Iron workup shows low iron, iron saturation normal 17%, unsaturated IBC at 125 low and ferritin normal therefore his anemia is not due to iron deficiency. It is mainly due to chronic inflammatory disorder. Reticulocyte count also not elevated. Hemoglobin 6.7. Repeat H&H ordered. Patient had IV iron. 2. Severe PAD with history of revascularization and recent left femoral arteriovenous fistula placement, history of LLE DVT ? Follows with vascular surgery. Had left femoral AV fistula placement done with Dr. Thompson on 07/06. Tolerated procedure well but does have significant left arm swelling with bruising noted. Left lower extremity with swelling improved from last admission. Holding Eliquis and aspirin as above and will need to discuss with vascular surgery on need for these going forward. 07/15: Seen by vascular surgeon PA. Advised to discontinue Eliquis and would start aspirin 81 mg daily but patient still very anemic hemoglobin less than 7 g therefore we will hold on starting baby aspirin 07/17: Discussed with Dr. Thompson. Plan for this hospitalization will be manage all comorbidities and if hemoglobin and platelet count permits, start antiplatelet agent aspirin either inpatient or may be outpatient. Patient had AV fistula as mentioned above that was stented. Long-term plan will be either open or endovascular surgery of the iliac stenosis 3. Acute on chronic debility ? PT/OT/case management consulted. Patient came from SNF and will presumably need to return to SNF on discharge. 4. Dysphagia ? Speech therapy consulted. Known history of dysphagia and speech therapy followed during prior admission. 07/14 lungs clear. Encouraged to continue incentive spirometry 07/16: Mild crepitation right lung base. Advised incentive spirometry. 07/19: Patient had modified barium swallow and since patient has oropharyngeal dysphagia with high aspiration risk. Speech therapist recommended pur?ed texture and thin liquid with compensatory strategies. 5. Mild FIOR on CKD stage IIIb ? Creatinine 2.20 on admit, baseline around 1.4-1.6. Presume secondary to blood loss as noted above. IV fluid resuscitation given in ED, follow-up a.m. BMP and monitor urine output. 07/14: BUN/creatinine 72/2.12. 07/15: BUN/creatinine 76/2.24. 07/17: BUN/creatinine 52/2.04. Patient did not had significant improvement in creatinine in 5 days therefore I feel this is a new baseline. Hypernatremia, hyperchloremia. D5W ordered 07/18: BUN/creatinine 34/1.9. Gradual slight improvement. Patient has hypernatremia, hyperchloremia therefore D5W ordered. 6. History of chronic urinary retention with chronic Maddox catheter, recent complicated UTI ? Patient with complicated UTI with MRSA during most recent admission. Completed course of p.o. linezolid on discharge. No need for further antibiotics at this time. Chronic medical conditions: ? History of CVA with residual left-sided weakness, hypertension, hyperlipidemia: Continue home statin. Holding home aspirin as noted above. ? Type 2 diabetes mellitus: Holding home linagliptin. Will treat with sliding scale insulin with meals while inpatient. ? Hypothyroidism: Continue home Synthroid. ? History of rectal cancer s/p chemotherapy and radiation therapy and resection of left colon and entire rectum with permanent colostomy placement in 2020: Continue outpatient follow-up with oncology. 07/14: There was black tarry liquidy stool in the bag. ? History of AAA without rupture: Outpatient follow-up. ? GERD: Treating with IV PPI twice daily as noted above. 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 Will order 240ml apple ensure clear 3x daily with meals. Will monitor weight trends. Discharge Plan Admission Admit Date/Time: 07/13/24 20:23 Attending Provider: Miguel Ortiz Primary Care Provider: Shari Hurd Consulting Providers: Kulwinder De La O; Efraín Thompson Discharge Orders/Prescriptions Prescriptions: New insulin lispro [Humalog KwikPen Insulin] 100 unit/mL Insulin Pen See Protocol subcut ACHS Qty: 0 0RF Protocol: 3. Sliding Scale Insulin Med Dosing Condition: 150-189 mg/dl = 1 unit Condition: 190-229 mg/dl = 2 units Condition: 230-269 mg/dl = 3 units Condition: 270-309 mg/dl = 4 units Condition: 310-349 mg/dl = 5 units Condition: 350-399 mg/dl = 6 units Condition: 400-449 mg/dl = 7 units Condition: Greater than 449 call physician Protocol Text: Suggested for: - Patients on Total Daily Insulin Dose of 37-55 units - Obese, infected, or steroid patients MEDIUM DOSING ALGORITHIM Continued finasteride 5 mg tablet 5 mg PO DAILY atorvastatin 40 mg tablet 40 mg PO QHS tuberculin PPD 1 unit/0.1 mL solution 0.1 tb unit intradermal QHS Rx Instructions: stop on 07/14/2024 ipratropium-albuterol 0.5 mg-3 mg(2.5 mg base)/3 mL Solution For Nebulization 3 ml inhalation Q6H levothyroxine 100 mcg Tablet 100 mcg PO DAILY@0600 Qty: 30 2RF pantoprazole 40 mg tablet,delayed release (DR/EC) 40 mg PO BID Qty: 60 2RF albuterol sulfate 90 mcg/actuation HFA aerosol inhaler 1 - 2 puff inhalation 4X/DAY PRN (Reason: wheezing) Trelegy Ellipta 100-62.5-25 mcg blister with device 1 ea inhalation DAILY rosuvastatin 20 mg tablet 20 mg PO QHS Tradjenta 5 mg tablet 5 mg PO DAILY icosapent ethyl 1 gram capsule 1 g PO BID nystatin [Nyamyc] 100,000 unit/gram Powder 1 applic topical TID Qty: 0 0RF Protocol: *Topical Application Instructions APPLICATION INSTRUCTIONS: to affected regions nystatin 100,000 unit/mL suspension 100,000 unit PO DAILY Qty: 60 0RF Rx Instructions: administer 1/2 of dose in each side of the mouth Held Eliquis 5 mg Tablet 5 mg PO BID Hold Instructions: Hold at least for 1 week. Severe anemia aspirin 81 mg tablet,delayed release (DR/EC) 81 mg PO DAILY Hold Instructions: Hold for severe anemia. Discontinued linezolid [Zyvox] 600 mg tablet 600 mg PO BID Qty: 18 0RF Referrals / Follow Up: Jenae Franco MD [Non-Staff] - Shari Hurd MD [Primary Care Provider] -
[2024-07-20] MEDS: BMX LIQUID 180 ML 15 ML PO ×3 (12:03→20:15)
[2024-07-20 12:29] LABS: Bedside Glucose 135 mg/dL (74-106)
--- NOTE | 2024-07-20 14:31 | DS.PCM_ITS ---
Providers Date of Admission: 07/13/24 Date of Discharge: 07/20/24 Primary Care Physician: Dr. Shari Hurd MD Consultations 07/13/24 22:38 Consult: Gastroenterology Routine Consulting Provider: [facility] Reason for Consult: suspected upper GIB w/ recent EGD EMERGENT Consult: No Notified: Yes Date Notified: 07/14/24 Time Notified: 06:33 Method of Notification: Text 07/14/24 18:28 Consult: Vascular Surgery Routine Consulting Provider: Efraín Thompson Reason for Consult: LLE extemity swelling. LLE PAD EMERGENT Consult: No Notified: Yes Date Notified: 07/14/24 Time Notified: 18:28 Method of Notification: Text Reason For Visit: GI BLEED W/ABLA Diagnosis Discharge Diagnosis (1) Acute GI bleeding: Status: Acute Code(s): K92.2 - Gastrointestinal hemorrhage, unspecified (2) Anemia: Status: Acute Code(s): D64.9 - Anemia, unspecified Plan Patient is a 74-year-old male who presented to [facility] ED on 07/13/24 with dark blood with clots noted in ostomy bag. Patient denies abdominal pain nausea or vomiting. 1. Acute upper GI bleed with acute blood loss anemia, known erosive esophagitis with esophageal stenosis ? Admit under inpatient status to PCU. GI consulted. Recent EGD on 07/04 showed grade D erosive esophagitis with bleeding noted, chronic duodenitis and benign- appearing esophageal stenoses that were dilated. High likelihood of upper GI bleed after restarting Eliquis on discharge given hemoglobin drop from 12.0 to 8.4 and very elevated BUN. Maintain n.p.o. status for likely EGD and treat with IV PPI twice daily for now. Follow-up a.m. CBC. Hold Eliquis and aspirin for now. 07/14: EGD done today. Impression: - Esophageal ulcer actively bleeding. Injected. Treated with argon plasma coagulation (APC). - Esophageal ulcer actively bleeding. Clip was placed. 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 - Red blood in the entire stomach. 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 Treated with argon plasma coagulation (APC). - No specimens collected. Continue IV PPI every 12 hourly. H&H 6.6/20.6. 1 unit of PRBC ordered.. Poor IV access therefore required midline. Baseline hemoglobin 11 to 12 g. 07/15: H&H 6.8/22%. 1 L PRBC ordered 07/16: H&H 7.5/23%. Platelet count 121K. 07/17: With platelet and hemoglobin low hard to start on antiplatelet agent. Continue IV PPI 07/18: No significant improvement. IV iron ordered. Serum iron, TIBC, ferritin, reticulocyte panel ordered 07/19: Iron workup shows low iron, iron saturation normal 17%, unsaturated IBC at 125 low and ferritin normal therefore his anemia is not due to iron deficiency. It is mainly due to chronic inflammatory disorder. Reticulocyte count also not elevated. Hemoglobin 6.7. Repeat H&H ordered. Patient had IV iron. 07/20: 1 unit of PRBC transfusion given. Repeat hemoglobin 8.4. Patient can be discharged. 2. Severe PAD with history of revascularization and recent left femoral arteriovenous fistula placement, history of LLE DVT ? Follows with vascular surgery. Had left femoral AV fistula placement done with Dr. Thompson on 07/06. Tolerated procedure well but does have significant left arm swelling with bruising noted. Left lower extremity with swelling improved from last admission. Holding Eliquis and aspirin as above and will need to discuss with vascular surgery on need for these going forward. 07/15: Seen by vascular surgeon MICHAEL. Advised to discontinue Eliquis and would start aspirin 81 mg daily but patient still very anemic hemoglobin less than 7 g therefore we will hold on starting baby aspirin 07/17: Discussed with Dr. Thompson. Plan for this hospitalization will be manage all comorbidities and if hemoglobin and platelet count permits, start antiplatelet agent aspirin either inpatient or may be outpatient. Patient had AV fistula as mentioned above that was stented. Long-term plan will be either open or endovascular surgery of the iliac stenosis 07/20: Follow-up outpatient with Dr. Thompson. Currently not candidate for baby aspirin or Eliquis because of severe anemia. 3. Acute on chronic debility ? PT/OT/case management consulted. Patient came from SNF and will presumably need to return to SNF on discharge. 4. Dysphagia ? Speech therapy consulted. Known history of dysphagia and speech therapy followed during prior admission. 07/14 lungs clear. Encouraged to continue incentive spirometry 07/16: Mild crepitation right lung base. Advised incentive spirometry. 07/19: Patient had modified barium swallow and since patient has oropharyngeal dysphagia with high aspiration risk. Speech therapist recommended pur?ed texture and thin liquid with compensatory strategies. 07/20: Severe anemia other multiple comorbidities patient is high risk for anesthesia even for EGD and therefore may have to ED visit again. Discussed with Dr. Ramos. 5. Mild FIOR on CKD stage IIIb ? Creatinine 2.20 on admit, baseline around 1.4-1.6. Presume secondary to blood loss as noted above. IV fluid resuscitation given in ED, follow-up a.m. BMP and monitor urine output. 07/14: BUN/creatinine 72/2.12. 07/15: BUN/creatinine 76/2.24. 07/17: BUN/creatinine 52/2.04. Patient did not had significant improvement in creatinine in 5 days therefore I feel this is a new baseline. Hypernatremia, hyperchloremia. D5W ordered 07/18: BUN/creatinine 34/1.9. Gradual slight improvement. Patient has hypernatremia, hyperchloremia therefore D5W ordered. 6. History of chronic urinary retention with chronic Maddox catheter, recent complicated UTI ? Patient with complicated UTI with MRSA during most recent admission. Completed course of p.o. linezolid on discharge. No need for further antibiotics at this time. Chronic medical conditions: ? History of CVA with residual left-sided weakness, hypertension, hyperlipidemia: Continue home statin. Holding home aspirin as noted above. ? Type 2 diabetes mellitus: Holding home linagliptin. Will treat with sliding scale insulin with meals while inpatient. ? Hypothyroidism: Continue home Synthroid. ? History of rectal cancer s/p chemotherapy and radiation therapy and resection of left colon and entire rectum with permanent colostomy placement in 2020: Continue outpatient follow-up with oncology. 07/14: There was black tarry liquidy stool in the bag. ? History of AAA without rupture: Outpatient follow-up. ? GERD: Treating with IV PPI twice daily as noted above. DVT prophylaxis: SCDs CODE STATUS: Full code, verified Discharge medication reconciliation done. Discharge follow-up instructions completed. Discharge process discussed with the patient and all questions were answered to patient's satisfaction. Follow with PCP in 1 to 2 weeks Total time spent, exact 35 minutes on discharge meds reconciliation, examination, coordination of care with nurses and ancillary staff, review of imaging and blood test and discussion with the patient on follow-up instructions. Medications at Discharge Home Medications finasteride 5 mg tablet 5 mg PO DAILY prostate 06/22/23 levothyroxine 100 mcg tablet 100 mcg PO DAILY@0600 thyroid #30 tabs 01/15/24 pantoprazole 40 mg tablet,delayed release 40 mg PO BID stomach #60 tabs 01/15/24 albuterol sulfate 90 mcg/actuation aerosol inhaler 1 - 2 puff inhalation 4X/DAY PRN wheezing 02/22/24 apixaban 5 mg tablet (Eliquis) 5 mg PO BID blood thinner 02/22/24 Held on 07/20/24. Instructions: Hold at least for 1 week. Severe anemia aspirin 81 mg tablet,delayed release 81 mg PO DAILY preventative 07/01/24 Held on 07/20/24. Instructions: Hold for severe anemia. fluticasone fur. 100 mcg-umeclid 62.5 mcg-vilant 25 mcg inhalat.powder (Trelegy Ellipta) 1 ea inhalation DAILY respiratory 07/01/24 icosapent ethyl 1 gram capsule 1 g PO BID hypertriglyceridemia 07/01/24 linagliptin 5 mg tablet (Tradjenta) 5 mg PO DAILY dm ckd 07/01/24 rosuvastatin 20 mg tablet 20 mg PO QHS cholesterol 07/01/24 nystatin 100,000 unit/gram topical powder (Nyamyc) 1 applic topical TID groin #0 grams 07/07/24 nystatin 100,000 unit/mL oral suspension 100,000 unit PO DAILY thrush #60 mL 07/07/24 atorvastatin 40 mg tablet 40 mg PO QHS cholesterol 07/13/24 ipratropium 0.5 mg-albuterol 3 mg (2.5 mg base)/3 mL nebulization soln 3 ml inhalation Q6H respiratory 07/13/24 tuberculin PPD 1 unit/0.1 mL intradermal injection solution 0.1 tb unit intradermal QHS health maintenance 07/13/24 insulin lispro 100 unit/mL subcutaneous pen (Humalog KwikPen (U-100) Insulin) See Protocol subcut ACHS #0 mL 07/20/24 Physical Exam Narrative Seen and examined. Patient had 1 unit of transfusion in the morning. Posttransfusion hemoglobin 8.4. Patient has mild swelling/bruising noted in left arm at recent surgical insertion site for angiogram for left lower extremity AV fistula, angioplasty and stent of left profundofemoral artery. Left lower extremity still swollen. Seen and examined. General: Alert, Oriented x3, Cooperative HEENT: Atraumatic, PERRLA, EOMI, Normocephalic Oral: Oral mucosa is moist. No oral or pharyngeal ulcers or lesion seen. Neck: Supple, No JVD, Negative Carotid Bruits Chest wall/Lungs: Air entry diminished in bilateral lung bases. No crepitation Cardiovascular: Sinus rhythm, systolic murmur. Decreased pulsation in the left lower extremity, PT/DP probably because of edema Abdomen: Bowel Sounds Present, Soft, Non Tender, Non-Distended : No dysuria. No renal angle tenderness. No suprapubic tenderness. Extremities: Left lower extremity edematous capillary Refill Less than 3 Seconds Skin: No rashes, No breakdown Musculoskeletal: No Tenderness to Palpation of Joints or Extremities Neurological: Cranial nerves II-XII grossly intact, DTR 2+/4. No acute focal neurological deficit. Psych/Mental Status: Flat affect Weight / BMI Weight Weight: 184 lb 15.485 oz Body Mass Index (BMI) 29.0 ABG / Lab / Microbiology Data 07/20/24 14:20 07/20/24 06:56 Laboratory: Laboratory Results - last 24 hr 07/19/24 16:05: Hgb 7.2 L, Hct 23.3 L 07/19/24 16:46: POC Glucose 155 H 07/19/24 17:50: Hgb 7.5 L, Hct 24.4 L 07/19/24 22:36: POC Glucose 129 H 07/20/24 06:16: POC Glucose 120 H 07/20/24 06:56: WBC 11.4 H, RBC 2.19 L, Hgb 6.6 L, Hct 21.2 L, MCV 96.8 H, MCH 30.1, MCHC 31.1 L, RDW Std Deviation 59.7 H, RDW Coeff of Yanira 17.3 H, Plt Count 178, MPV 12.5 H, Neut % (Auto) Not Reportable, Absolute Neuts (auto) 8.9 H, Absolute Lymphs (auto) 0.90, Total Counted 100, Neutrophils % (Manual) 74 H, Band Neutrophils % 4, Lymphocytes % (Manual) 8 L, Monocytes % (Manual) 6, Eosinophils % (Manual) 4, Metamyelocytes % 1, Myelocytes % 2 H, Promyelocytes % 1 H, Nucleated RBCs/100 WBC 3, Diff Path Review May foll, Platelet Estimate ADEQUATE, RBC Morphology NORM C+C, Sodium 142, Potassium 3.9, Chloride 112 H, Carbon Dioxide 22.3, Anion Gap 8, BUN 19, Creatinine 1.64 H, Estim Creat Clear Calc 40.93 L, Est GFR (MDRD) Non-Af 44 L, BUN/Creatinine Ratio 11.5, Glucose 121 H, Calcium 8.5 07/20/24 09:05: Blood Type O POSITIVE, Antibody Screen NEGATIVE, Crossmatch See Detail 07/20/24 11:48: POC Glucose 135 H 07/20/24 14:20: Hgb 8.4 L, Hct 26.6 L D/C Instructions Discharge Diet: - (TOTAL FEED, liquids by tsp only, multiple swallows, hard swallows. Ensure clear 3 times daily) Discharge Activity: Return to Normal Activity Weight Bearing Status: Weight bearing as tolerated Additional Activity Instructions: CBC and BMP weekly for 1 month Call your doctor if you observe: Fever of 101 or Higher, Coldness, Increased Pain, Numbness or Tingling, Change in Color, Inability to urinate, Inability to have a bowel movement, Shortness of breath, Dizziness, Fainting spells, Swelling in the ankles, Chest pain, Prolonged hiccupping, Increased palpitations (irregular heartbeat) and Calf discomfort DC O2, CPAP, BIPAP Needs Home O2 Discharge instructions: No When: IN 2 WEEKS Meaningful Use Info Meaningful Use Meaningful Use Diagnoses (Choose all that apply): None applicable Ischemic Stroke Statin Dosing Therapy Reference: STATIN DOSE THERAPY REFERENCE: * Patients > 75 years receive moderate or high dose statin therapy. * Patients 75 years or YOUNGER should receive HIGH intensity statin dose unless contraindicated. You will be required to document reason for non-treatment if statin daily dose does not meet guidelines. HIGH DOSE STATIN THERAPY DAILY Atorvastatin > than or = to 40 mg Rosuvastatin > than or = to 20 mg Amlodipine + Atorvastatin > than or = to 2.5/40 mg Ezetimibe + Simvastatin 10/80 mg Simvastatin 80mg Discharge Plan Admission Admit Date/Time: 07/13/24 20:23 Attending Provider: Miguel Ortiz Primary Care Provider: Shari Hurd Consulting Providers: Kulwinder De La O; Efraín Thompson Discharge Orders/Prescriptions Prescriptions: New insulin lispro [Humalog KwikPen Insulin] 100 unit/mL Insulin Pen See Protocol subcut ACHS Qty: 0 0RF Protocol: 3. Sliding Scale Insulin Med Dosing Condition: 150-189 mg/dl = 1 unit Condition: 190-229 mg/dl = 2 units Condition: 230-269 mg/dl = 3 units Condition: 270-309 mg/dl = 4 units Condition: 310-349 mg/dl = 5 units Condition: 350-399 mg/dl = 6 units Condition: 400-449 mg/dl = 7 units Condition: Greater than 449 call physician Protocol Text: Suggested for: - Patients on Total Daily Insulin Dose of 37-55 units - Obese, infected, or steroid patients MEDIUM DOSING ALGORITHIM Continued finasteride 5 mg tablet 5 mg PO DAILY atorvastatin 40 mg tablet 40 mg PO QHS tuberculin PPD 1 unit/0.1 mL solution 0.1 tb unit intradermal QHS Rx Instructions: stop on 07/14/2024 ipratropium-albuterol 0.5 mg-3 mg(2.5 mg base)/3 mL Solution For Nebulization 3 ml inhalation Q6H levothyroxine 100 mcg Tablet 100 mcg PO DAILY@0600 Qty: 30 2RF pantoprazole 40 mg tablet,delayed release (DR/EC) 40 mg PO BID Qty: 60 2RF albuterol sulfate 90 mcg/actuation HFA aerosol inhaler 1 - 2 puff inhalation 4X/DAY PRN (Reason: wheezing) Trelegy Ellipta 100-62.5-25 mcg blister with device 1 ea inhalation DAILY rosuvastatin 20 mg tablet 20 mg PO QHS Tradjenta 5 mg tablet 5 mg PO DAILY icosapent ethyl 1 gram capsule 1 g PO BID nystatin [Nyamyc] 100,000 unit/gram Powder 1 applic topical TID Qty: 0 0RF Protocol: *Topical Application Instructions APPLICATION INSTRUCTIONS: to affected regions nystatin 100,000 unit/mL suspension 100,000 unit PO DAILY Qty: 60 0RF Rx Instructions: administer 1/2 of dose in each side of the mouth Held Eliquis 5 mg Tablet 5 mg PO BID Hold Instructions: Hold at least for 1 week. Severe anemia aspirin 81 mg tablet,delayed release (DR/EC) 81 mg PO DAILY Hold Instructions: Hold for severe anemia. Discontinued linezolid [Zyvox] 600 mg tablet 600 mg PO BID Qty: 18 0RF Referrals / Follow Up: Jenae Franco MD [Non-Staff] - Shari Hurd MD [Primary Care Provider] - Charges/Coding Visit Charges Inpatient E&M: 03794 Disch Hosp >30min
[2024-07-20 14:38] LABS: Hematocrit 26.6 % (40-54); Hemoglobin 8.4 g/dL (13.0-16.5)
--- NOTE | 2024-07-20 14:47 | CASEMGMT ---
Discharge Planning Discharge orders, signed med list, and transport time sent to [facility]. Physicians will transport pt by wheelchair at 4p. Nursing, SW, pt and his daughter (Shaunna) updated. Nadine Betts DC Planning Asst.
[2024-07-20 16:59] LABS: Bedside Glucose 126 mg/dL (74-106)
--- NOTE | 2024-07-20 18:21 | PCM.PN.BLA ---
Progress Note Patient is doing a lot better today without any abdominal pain and has not had any more bleeding. Physical Exam Narrative Seen and examined. Patient had 1 unit of transfusion in the morning. Posttransfusion hemoglobin 8.4. Patient has mild swelling/bruising noted in left arm at recent surgical insertion site for angiogram for left lower extremity AV fistula, angioplasty and stent of left profundofemoral artery. Left lower extremity still swollen. Seen and examined. General: Alert, Oriented x3, Cooperative HEENT: Atraumatic, PERRLA, EOMI, Normocephalic Oral: Oral mucosa is moist. No oral or pharyngeal ulcers or lesion seen. Neck: Supple, No JVD, Negative Carotid Bruits Chest wall/Lungs: Air entry diminished in bilateral lung bases. No crepitation Cardiovascular: Sinus rhythm, systolic murmur. Decreased pulsation in the left lower extremity, PT/DP probably because of edema Abdomen: Bowel Sounds Present, Soft, Non Tender, Non-Distended : No dysuria. No renal angle tenderness. No suprapubic tenderness. Extremities: Left lower extremity edematous capillary Refill Less than 3 Seconds Skin: No rashes, No breakdown Musculoskeletal: No Tenderness to Palpation of Joints or Extremities Neurological: Cranial nerves II-XII grossly intact, DTR 2+/4. No acute focal neurological deficit. Psych/Mental Status: Flat affect Assessment & Plan Assessment/Plan (1) Acute GI bleeding: (2) Anemia: PLAN: Plan Patient is a 74-year-old male who presented to [facility] ED on 07/13/24 with dark blood with clots noted in ostomy bag. Suspected upper GI bleed with acute blood loss anemia, known erosive esophagitis with esophageal stenosis ? Initial EGD on 07/04 showed grade D erosive esophagitis with bleeding noted, chronic duodenitis and benign-appearing esophageal stenoses that were dilated. High likelihood of upper GI bleed after restarting Eliquis on discharge given hemoglobin drop from 12.0 to 8.4 and very elevated BUN. ? Repeat upper endoscopy after being restarted back on anticoagulation : Findings: One cratered esophageal ulcer actively bleeding was found 39 to 41 cm from the incisors. The lesion was 5 mm in largest dimension. Area was successfully injected with 15 mL of a 0.1 mg/mL solution of epinephrine for drug delivery. Estimated blood loss was minimal. Coagulation for bleeding prevention using argon plasma at 0.3 liters/minute and 15 grover was successful. Estimated blood loss was minimal. One linear esophageal ulcer actively bleeding was found 40 to 42 cm from the incisors. The lesion was 8 mm in largest dimension. To stop active bleeding, one hemostatic clip was successfully placed. Clip manager payment: [employer]. There was no bleeding at the end of the procedure. Red blood was found in the entire examined stomach. Four 5 mm angiodysplastic lesions with bleeding on contact were found in the ampulla, in the second portion of the duodenum and in the fourth portion of the duodenum. Coagulation for destruction of remaining portion of lesion using argon plasma at 0.3 liters/minute and 20 grover was successful. Estimated blood loss was minimal. Impression: - Esophageal ulcer actively bleeding. Injected. Treated with argon plasma coagulation (APC). - Esophageal ulcer actively bleeding. Clip was placed. Clip manager payment: [employer]. - Red blood in the entire stomach. 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 Treated with argon plasma coagulation (APC). - No specimens collected. Recommendation: HAS-BLED Score for Major Bleeding Risk: 6?points Scores greater than 5 were too rare to determine risk, but are likely over 10%. Alternatives to anticoagulation should be considered: Patient is at very high risk for major bleeding. Protonix 40 mg p.o. twice daily and Carafate 1 g 3 times a day Visit Charges Inpatient E&M: [id number] [facility] L3
[2024-07-20 20:44] LABS: Bedside Glucose 107 mg/dL (74-106)
[2024-07-21 11:30] LABS: Pathologist Review Reviewed
== END 2024-07-20 20:50 | disposition skilled nursing facility (03) | DRG 381 ==
LOC: ED 20:27 → PCU 21:47
PROVIDERS: Internal Medicine Gastroenterology; Admitting Provider Hospitalist; Emergency Provider Emergency Medicine; PCP Internal Medicine; Visit Provider Internal Medicine
PROC: 0DJ08ZZ Inspection of Upper Intestinal Tract, Via Natural or Artificial Opening Endoscopic (ICD-10-PCS; CPT 43235; principal; 2024-07-14 12:55)
DX: K22.11 Ulcer of esophagus with bleeding (principal); D68.32 Hemorrhagic disorder due to extrinsic circulating anticoagulants; E87.0 Hyperosmolality and hypernatremia; D62 Acute posthemorrhagic anemia; N17.9 Acute kidney failure, unspecified; N39.0 Urinary tract infection, site not specified; E11.22 Type 2 diabetes mellitus with diabetic chronic kidney disease; N18.32 Chronic kidney disease, stage 3b; E03.9 Hypothyroidism, unspecified; I12.9 Hypertensive chronic kidney disease with stage 1 through stage 4 chronic kidney disease, or unspecified chronic kidney disease; I71.40 Abdominal aortic aneurysm, without rupture, unspecified; K22.2 Esophageal obstruction; K29.80 Duodenitis without bleeding; E78.5 Hyperlipidemia, unspecified; K21.00 Gastro-esophageal reflux disease with esophagitis, without bleeding; E11.51 Type 2 diabetes mellitus with diabetic peripheral angiopathy without gangrene; E87.8 Other disorders of electrolyte and fluid balance, not elsewhere classified; Z79.4 Long term (current) use of insulin; I70.292 Other atherosclerosis of native arteries of extremities, left leg; S81.811A Laceration without foreign body, right lower leg, initial encounter; I77.0 Arteriovenous fistula, acquired; K92.2 Gastrointestinal hemorrhage, unspecified; B95.62 Methicillin resistant Staphylococcus aureus infection as the cause of diseases classified elsewhere; T45.515A Adverse effect of anticoagulants, initial encounter; Z79.82 Long term (current) use of aspirin; Z79.890 Hormone replacement therapy; Z87.891 Personal history of nicotine dependence; Z79.51 Long term (current) use of inhaled steroids; Z79.84 Long term (current) use of oral hypoglycemic drugs; Z79.01 Long term (current) use of anticoagulants; Z86.718 Personal history of other venous thrombosis and embolism; R33.8 Other retention of urine; R13.10 Dysphagia, unspecified; Z79.899 Other long term (current) drug therapy; Z79.02 Long term (current) use of antithrombotics/antiplatelets; R53.81 Other malaise; Z98.890 Other specified postprocedural states; X58.XXXA Exposure to other specified factors, initial encounter
CPT/HCPCS: 36415; 74176; 74230; 80048; 80053; 82728; 82962; 83540; 83550; 85014; 85018; 85025; 85027; 85045; 86850; 86900; 86901; 92526; 92610; 92611; 94640; 94668; 94762; 97161; 97166; 97530; 97535; 99285; C1889; P9016; A4216; J2405; J2916

== ENCOUNTER 2024-09-27 11:44 | Emergency (ER) | payer MEDICARE, BC, SELFPAY ==
[2024-09-27 11:46] VITALS: BP 138/79; PULSE 94; RESP 16; TEMP 36.6; O2SAT 97; BMI 30.4
--- NOTE | 2024-09-27 12:47 | CT_ITS ---
PROCEDURE: ABDOMEN/PELVIS W IV CONT ONLY 09/27/2024 REASON FOR EXAM: SCROTAL SWELLING TECHNIQUE: ABDOMEN/PELVIS W IV CONT ONLY Coronal and Sagittal reconstruction series were provided. CONTRAST: Isovue 370 VOLUME: 100 mL One or more dose reduction techniques were used (e.g., Automated exposure control, adjustment of the mA and/or kV according to patient size, use of iterative reconstruction technique. RADIATION DOSE SUMMARY: CTDlvol: 32.41 mGy DLP: 1201.09 mGycm COMPARISON: CT abdomen and pelvis without contrast, 07/13/2024. FINDINGS: Lung bases: Chronic interstitial lung disease. There are no pleural effusions. The heart size is normal. There is no pericardial effusion. There is calcific vascular disease of the thoracic aorta and coronary arteries. There is tortuosity of the thoracic aorta. Liver: Normal. Gallbladder: There are multiple small gallstones. There is mild intrahepatic biliary ductal dilatation. Spleen: Benign splenic granulomas. Pancreas: Normal. Adrenals: Normal. Kidneys: There is severe atrophy of the left kidney. The right kidney is normal. Bladder: There is a Maddox catheter in the urinary bladder. Reproductive Organs: Suspect prostatectomy and vesiculectomy. There is marked scrotal swelling. There is no free fluid in the pelvis. There are reactive left inguinal lymph nodes. Bowel: Status post distal colectomy with a left lower quadrant colostomy. Bruit Appendix: The appendix is not identified. Lymph nodes: There is no retroperitoneal, mesenteric or pelvic lymphadenopathy. 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 Prior aortobifemoral bypass extending from the infrarenal abdominal aorta to the bilateral common femoral arteries. The inferior vena cava and portal venous system are normal. Peritoneum / Retroperitoneum: There are no abnormal intra or retroperitoneal masses or fluid collections. There is chronic swelling of the left lower extremity related to vascular abnormalities as described in the report of the CTA abdomen and runoff of 07/03/2024. Bones: There is bilateral spondylolysis with grade 1 anterolisthesis of L5 on S1. CT/Abdomen/Pelvis W IV Cont ONLY IMPRESSION: 1. Status post distal colectomy and left lower quadrant colostomy. 2. Chronic interstitial lung disease. 3. Cholelithiasis. 4. Severe atherosclerotic vascular disease with aorto bi iliac bypass graft as described. 5. There is chronic swelling of the left lower extremity due to vascular abnor mality. 6. There is marked swelling of the scrotum some of the site. 7. Other findings as noted. Note: I spoke with the referring physician in the [facility] emergency department on 09/27/2024 at 3:10 p.m. Reading Location: [id number]
--- NOTE | 2024-09-27 13:02 | US_ITS ---
PROCEDURE: TESTICULAR WITH ARTERIAL FLOW 09/27/2024 REASON FOR EXAM: SWELLING TECHNIQUE: TESTICULAR WITH ARTERIAL FLOW COMPARISON: None FINDINGS: Right testicle measures 3.2 x 1.7 x 2.1 cm and epididymis measures 1.1 x 0.7 x 0.8 cm. There is normal vascular flow within the right testicle. No hydrocele or varicocele is noted. Left testicle measures 3.5 x 1.7 x 2.3 cm and epididymis measures 0.9 x 0.8 x 1.1 cm. There is normal flow within the left testicle. No hydrocele or varicocele. Extremely edematous scrotal wall. US/Testicular with Arterial Flow IMPRESSION: Extensive edema of the scrotal wall. No testicular torsion at this time. Reading Location: [id number]
[2024-09-27 13:16] LABS: Hematocrit 42.7 % (40-54); Hemoglobin 13.1 g/dL (13.0-16.5); Immature Granulocytes Count 0.040 X10^3/uL (0.0-0.0); Mean Corp Hgb Conc 30.7 g/dL (32-36); Mean Corpuscular Volume 91.2 fL (80-94); Mean Platelet Vol. 12.6 fl (6.2-12.0); NRBC Flagged by Analyzer 0 % (0-5); POSITIVE COUNT YES; Platelet Count 86 K/mm3 (150-450); RBC Distribution Width CV 15.8 % (11.6-14.6); RBC Distribution Width SD 51.9 fl (35.1-43.9); Red Blood Count 4.68 M/mm3 (4.6-6.2); White Blood Count 7.2 K/mm3 (4.4-11.0)
[2024-09-27 13:39] LABS: Differential Comment SCANNED; Differential Indicated SCAN CRITERIA MET
[2024-09-27 13:42] LABS: AST(SGOT) 30 U/L (<=37); Alanine Aminotransfer ALT/SGPT 14 U/L (<=46); Albumin, Serum 3.7 g/dL (3.4-4.8); Alkaline Phosphatase 99 U/L (40-129); Anion Gap 12 (5-15); BUN 11 mg/dL (4-19); BUN/Creat Ratio 6.3 RATIO (10-20); Calcium,Total 9.2 mg/dL (7.6-11.0); Carbon Dioxide 23.6 mmol/L (21.0-32.0); Chloride 104 mmol/L (98-108); Estimated Creatinine Clearance 39.05 ml/min (50-250); Globulin 3.5 g/dL (2.2-4.2); Glucose 94 mg/dL (70-99); Potassium 4.2 mmol/L (3.3-5.1); Pro- Brain NATRIURETIC PEPTIDE 2140 pg/mL (<=900)
[2024-09-27 13:45] VITALS: PULSE 92; RESP 16; O2SAT 96
[2024-09-27 14:33] LABS: Mucous, Urine 0 SEEN /hpf (<or=2+)
--- NOTE | 2024-09-27 14:50 | EX.ED.DYSGE1 ---
HPI History of Present Illness Chief Complaint: Edema Narrative Narrative: 74-year-old male with past medical history of colon cancer with ostomy, chronic indwelling Maddox catheter, presents with scrotal swelling since yesterday. He relates history that he has had chronic left lower extremity swelling for years. He is easily ambulatory with a walker. He noticed that his scrotum was swollen since yesterday. He denies any fevers or chills, no difficulty urinating, no difficulty breathing. His home health nurse sent him in because of the scrotal swelling. He denies history of congestive heart failure. No exacerbating or alleviating factors. [facility] Medical History Peripheral arterial disease with history of revascularization MRSA (methicillin resistant staph aureus) culture positive Wears glasses Low iron Stroke/cerebrovascular accident Former smoker Colostomy in place Family history of abdominal aortic aneurysm repair DVT (deep venous thrombosis) Enteritis Cholelithiasis Acidosis, lactic Encephalopathy due to infection Acute hypoxemic respiratory failure Complicated urinary tract infection Severe sepsis with acute organ dysfunction Aspiration into respiratory tract FIOR (acute kidney injury) Colon cancer Home Medications ?Medication ?Instructions ?Recorded ?Last Taken ?Type finasteride 5 mg tablet 5 mg PO DAILY prostate 06/22/23 06/30/24 History pantoprazole 40 mg tablet,delayed 40 mg PO BID stomach #60 tabs 01/15/24 06/30/24 Rx release fluticasone fur. 100 mcg-umeclid 1 ea inhalation DAILY respiratory 07/01/24 06/30/24 History 62.5 mcg-vilant 25 mcg inhalat.powder (Trelegy Ellipta) icosapent ethyl 1 gram capsule 1 g PO BID hypertriglyceridemia 07/01/24 06/30/24 History linagliptin 5 mg tablet (Tradjenta) 5 mg PO DAILY dm ckd 07/01/24 06/30/24 History rosuvastatin 20 mg tablet 20 mg PO QHS cholesterol 07/01/24 06/30/24 History insulin lispro 100 unit/mL See Protocol subcut ACHS #0 mL 07/20/24 Unknown Rx subcutaneous pen (Humalog KwikPen (U-100) Insulin) amlodipine 5 mg tablet 5 mg PO DAILY 09/27/24 Unknown History ergocalciferol (vitamin D2) 1,250 1,250 mcg PO QWEEK 09/27/24 Unknown History mcg (50,000 unit) capsule levothyroxine 200 mcg tablet 200 mcg PO DAILY 09/27/24 Unknown History loratadine 10 mg tablet 10 mg PO DAILY 09/27/24 Unknown History sulfamethoxazole 800 1 tab PO BID 09/27/24 Unknown History mg-trimethoprim 160 mg tablet sulfamethoxazole 800 1 tab PO DAILY 7 days #7 tabs 09/27/24 Unknown Rx mg-trimethoprim 160 mg tablet (Bactrim DS) Allergy/AdvReac Type Severity Reaction Status Date / Time No Known Allergies Allergy Verified 09/27/24 11:49 Surgical History H/O esophagogastroduodenoscopy Hx of abdominal surgery Hx of endarterectomy (~2020) Social History Smoking Status: Former smoker Tobacco: How many years used: 50 second hand exposure: No alcohol intake: never substance use type: does not use ROS ROS ED ROS Narrative Review of systems positive for scrotal swelling. Chronic left lower extremity swelling. No dysuria but has chronic indwelling Maddox catheter. No abdominal pain. No fevers or chills, no cough, no shortness of breath, no other symptoms. EXAM Physical Exam Narrative Exam Narrative: Afebrile. Vital signs noted. Nontoxic-appearing. Cardiovascular examination regular rate and rhythm. Lungs clear to auscultation bilaterally. Abdomen soft, nontender, without guarding or rebound. Visual inspection of the scrotum and chaperoned examination reveals positive swelling of the scrotum. No testicular tenderness. Positive swelling of left lower extremity, chronic with lymphedematous changes. Awake, alert, interactive, appropriate. Const Vital Signs: 09/27/24 11:46 09/27/24 12:27 09/27/24 13:45 Temperature 97.8 F Temperature Source Oral Pulse Rate 94 92 Respiratory Rate 16 16 Respiratory Effort Normal Non-Labored Respiratory Pattern Normal Blood Pressure 138/79 H Blood Pressure Mean 98 Pulse Ox 97 96 Oxygen Delivery Method Room Air 09/27/24 15:00 Temperature Temperature Source Pulse Rate 93 Respiratory Rate 23 H Respiratory Effort Respiratory Pattern Blood Pressure Blood Pressure Mean Pulse Ox 92 Oxygen Delivery Method MDM MDM MDM Narrative Medical decision making narrative: Differential diagnosis for scrotal swelling includes but not limited to hydrocele versus varicocele versus congestive heart failure. I did review his prior echocardiogram from 2023 and he had an ejection fraction of 55 to 60%. Laboratory work was obtained and reviewed today, normal white count of 7.2 with hemoglobin 13.1, hematocrit 42.7, platelet count low at 86. When compared to prior laboratories, he does have chronic thrombocytopenia. I do not feel he needs a platelet transfusion currently. CMP shows normal sodium 139 with potassium 4.2, normal anion gap of 12, BUN of 11 and creatinine slightly elevated at 1.76. Compared to prior labs, he does have chronic kidney disease. LFTs are grossly unremarkable. BNP is elevated at 2140. He is not on Lasix or diuretic. Ultrasound of the scrotum was obtained as well as CT of the abdomen and pelvis. I reviewed the radiology report of the ultrasound of the scrotum and there is no evidence of torsion, there is no hydrocele or varicocele, but they state that he has extensive scrotal wall edema. 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 He has chronic interstitial lung disease. I discussed patient with the [facility] for vascular surgery who is familiar with the patient. Patient was seen and had scrotal edema previously, and he is not on an anticoagulant because he had an acute GI bleeding. He is due to see them in the office later this month as he had covered stenting performed which slightly improved his chronic edema, but did not resolve it completely. Patient stated that it was the vascular surgeon who told him to not be on a diuretic any longer. I will give him 1 dose of Lasix here but feel that prolonged diuretic should be managed by his primary care provider as he has history of chronic kidney disease. I also reviewed his urinalysis and he does have leukocyte esterase with microanalysis pending. He feels he has a urinary tract infection. His previous microanalysis was sensitive to Bactrim, and he also had MRSA of his urine which was also sensitive to Bactrim. Upon review of his microanalysis today, he does have 50-100 RBCs and greater than 100 WBCs. He was treated with Bactrim DS and prescription written for the next week. I discussed possible observation earlier with the patient, and he states he is doing well at home and prefers discharge. I feel he can be discharged to follow-up with his primary care provider in the vascular surgeon. Return instructions reviewed. Disposition is discharged home in stable condition. History & Record Review Discussion w/independent historian: Patient Additional record(s) reviewed:: Prior ED visit and Prior labs Lab Data Attestation: I reviewed the patient's lab results. Labs: Laboratory Results - last 24 hr 09/27/24 09/27/24 12:52 14:30 WBC 7.2 RBC 4.68 Hgb 13.1 Hct 42.7 MCV 91.2 MCH 28.0 MCHC 30.7 L RDW Std Deviation 51.9 H RDW Coeff of Yanira 15.8 H Plt Count 86 L MPV 12.6 H Immature Gran % (Auto) 0.600 Neut % (Auto) 66.4 Lymph % (Auto) 21.9 Christian % (Auto) 7.6 Eos % (Auto) 2.8 Baso % (Auto) 0.7 Absolute Neuts (auto) 4.8 Absolute Lymphs (auto) 1.58 Nucleated RBC % 0 Differential Comment SCANNED Sodium 139 Potassium 4.2 Chloride 104 Carbon Dioxide 23.6 Anion Gap 12 BUN 11 Creatinine 1.76 H Estim Creat Clear Calc 39.05 L Est GFR (MDRD) Non-Af 40 L BUN/Creatinine Ratio 6.3 L Glucose 94 Calcium 9.2 Total Bilirubin 0.36 AST 30 ALT 14 Alkaline Phosphatase 99 NT pro BNP II 2140 H Total Protein 7.2 Albumin 3.7 Globulin 3.5 Albumin/Globulin Ratio 1.0 Urine Color Yellow Urine Clarity Cloudy Urine pH 7.0 Ur Specific Kihei 1.010 Urine Protein 100 H Urine Glucose (UA) Normal Urine Ketones Negative Urine Occult Blood 250 H Urine Nitrite Negative Urine Bilirubin Negative Urine Urobilinogen Normal Ur Leukocyte Esterase 500 H Urine RBC 50-100 SEEN Urine WBC >100 SEEN Ur Squamous Epith Cells 0-5 SEEN Ur Transition Epith Cell 0-5 SEEN Triple Phos Crystals RARE Amorphous Sediment 2+ Urine Bacteria 2+ Urine Mucus 0 SEEN Radiography Diagnostic Testing: Clinical Impression(s) from Imaging Studies Abdomen/Pelvis CT 09/27/24 12:47 IMPRESSION: 1. Status post distal colectomy and left lower quadrant colostomy. 2. Chronic interstitial lung disease. 3. Cholelithiasis. 4. Severe atherosclerotic vascular disease with aorto bi iliac bypass graft as described. 5. There is chronic swelling of the left lower extremity due to vascular abnormality. 6. There is marked swelling of the scrotum some of the site. 7. Other findings as noted. Note: I spoke with the referring physician in the [facility] emergency department on 09/27/2024 at 3:10 p.m. Reading Location: [id number] Testicular Ultrasound 09/27/24 13:02 IMPRESSION: Extensive edema of the scrotal wall. No testicular torsion at this time. Reading Location: [id number] Discharge Plan Triage Chief Complaint: Edema ED Provider: John Michele Dx/Rx/DC Orders Clinical Impression: Scrotal edema, Leg edema, left, Femoral arteriovenous fistula, left, Catheter-associated urinary tract infection Instructions: ED Lymphedema, ED Bladder Infection, Male (Adult) Prescriptions: New sulfamethoxazole-trimethoprim [Bactrim DS] 800-160 mg tablet 1 tab PO DAILY 7 Days Qty: 7 0RF No Action finasteride 5 mg tablet 5 mg PO DAILY insulin lispro [Humalog KwikPen Insulin] 100 unit/mL Insulin Pen See Protocol subcut ACHS Qty: 0 0RF Protocol: 3. Sliding Scale Insulin Med Dosing Condition: 150-189 mg/dl = 1 unit Condition: 190-229 mg/dl = 2 units Condition: 230-269 mg/dl = 3 units Condition: 270-309 mg/dl = 4 units Condition: 310-349 mg/dl = 5 units Condition: 350-399 mg/dl = 6 units Condition: 400-449 mg/dl = 7 units Condition: Greater than 449 call physician Protocol Text: Suggested for: - Patients on Total Daily Insulin Dose of 37-55 units - Obese, infected, or steroid patients MEDIUM DOSING ALGORITHIM amlodipine 5 mg tablet 5 mg PO DAILY sulfamethoxazole-trimethoprim 800-160 mg tablet 1 tab PO BID levothyroxine 200 mcg tablet 200 mcg PO DAILY ergocalciferol (vitamin D2) 1,250 mcg (50,000 unit) capsule 1,250 mcg PO QWEEK loratadine 10 mg tablet 10 mg PO DAILY pantoprazole 40 mg tablet,delayed release (DR/EC) 40 mg PO BID Qty: 60 2RF Trelegy Ellipta 100-62.5-25 mcg blister with device 1 ea inhalation DAILY rosuvastatin 20 mg tablet 20 mg PO QHS Tradjenta 5 mg tablet 5 mg PO DAILY icosapent ethyl 1 gram capsule 1 g PO BID Primary Care Provider: Shari Hurd Referrals: Efraín Thompson MD [Med Staff - Active Staff] - Keep Briseyda appointment Shari Hurd MD [Primary Care Provider] - 3-5 Days Activity Restrictions/Additional Instructions: Antibiotics as directed. Follow-up with your primary care provider and vascular surgeon. The swelling of your scrotum may be related to the chronic swelling of your left leg and the vascular abnormality. Return with fever, new or worsening symptoms. Print Language: Turkmen Disposition Disposition: Home, Self Care
[2024-09-27 14:51] LABS: Color, Urine Yellow (Yellow); Glucose, Dipstick Normal (Normal); Ketone-Dipstick Negative (Negative); Leukocyte Esterase-Dipstick 500 /ul (Negative); Nitrite-Dipstick Negative (Negative); Occult Blood-Urine 250 /ul (Negative); Protein-Dipstick 100 mg/dl (Negative); Specific Gravity, Urine 1.010 (1.002-1.030); Urine Bilirubin Dipstick Negative (Negative)
[2024-09-27 15:00] VITALS: PULSE 93; RESP 23; O2SAT 92
[2024-09-27 15:55] LABS: Red Blood Cells-Urine 50-100 SEEN /hpf (0-5)
[2024-09-27 15:59] LABS: Triple Phosphate Crystals Ur RARE /hpf (<or=1+)
[2024-09-27 16:00] LABS: Squamous Epithelial Cells - UA 0-5 SEEN /hpf (0-5); Transitional Epithelial - Ur 0-5 SEEN /hpf (0-5)
[2024-09-27] MEDS: Smz/Tmp Ds Tablet 1 TABLET PO (16:03)
[2024-09-27 17:00] VITALS: BP 122/69; PULSE 90; RESP 17; O2SAT 99
[2024-09-27 17:03] VITALS: BP 122/69; PULSE 90; RESP 17; TEMP 36.6; O2SAT 99
--- NOTE | 2024-09-27 20:50 | CM.ED ---
Social Work YANDY was notified by patients nurse that she has been speaking to patients son-in-law on the phone, providing an update and letting SHELLY know patient was being discharge and needed picked up, when patient asked to speak with a SW. Call was transferred to SW office. YANDY spoke with SHELLY who stated concern about being able to care for patient at home, that patient did not listen to family, and that SHELLY felt patient has better care in a SNF. SHELLY also stated that patient had previously been at [facility] [place] and they had applied for Medicaid but had been denied so family brought patient home. SHELLY voiced confusion over the denial because he had medications that were being covered that previously been out of pocket and SHELLY wondered if the Medicaid was actually approved. SHELLY also stated that patient was also receiving HH. YANDY explained that at this time, the physician did not have a reason to admit patient, but while SHELLY was on the way to picket labor union patient, that SW would consult with registration to see if patients Medicaid was active. When SHELLY arrived in ED, YANDY met with him and explained that patients medicaid had been denied and at this time, and that a SNF stay would be Private pay. SHELLY stated they would not be doing that. YANDY spoke to SHELLY about reapplying for Medicaid to see if patient was now qualified and encouraged SHELLY to bring patient back to ED should he have a change in medical condition. SHELLY stated understanding and thanked YANDY. Ricarda Guevara, [employer] SUPERVISOR, [employer] SULFATE OPERATOR
== END 2024-09-27 17:25 | disposition home or self-care (01) ==
PROVIDERS: Emergency Provider Emergency Medicine; PCP Internal Medicine; Visit Provider Emergency Medicine
DX: N50.89 Other specified disorders of the male genital organs (principal); Z79.4 Long term (current) use of insulin; Q27.32 Arteriovenous malformation of vessel of lower limb; T83.511A Infection and inflammatory reaction due to indwelling urethral catheter, initial encounter; N18.9 Chronic kidney disease, unspecified; R60.0 Localized edema; D69.6 Thrombocytopenia, unspecified; Z79.890 Hormone replacement therapy; Z79.899 Other long term (current) drug therapy; Z86.718 Personal history of other venous thrombosis and embolism; Z87.891 Personal history of nicotine dependence; Z85.038 Personal history of other malignant neoplasm of large intestine
CPT/HCPCS: 74177; 76870; 80053; 81001; 83880; 85025; 87077; 87086; 87088; 87186; 93976; 96374; 99285; Q9967; A4216; J1938

== ENCOUNTER → 2024-12-26 | Outpatient (REF) | payer MEDICARE, BC, SELFPAY ==
--- OUTSIDE RECORDS SUMMARY | 2024-12-12 09:40 | XMS RPT_ITS ---
Author Name Auto Generated Organization [facility] Care Team Providers Care Wholesale Buyer Name Role Phone BRIAN CUMMINGS Attending Unavailable SANTAMARIA, JENAE Referring Unavailable SANTAMARIA, JENAE Primary Care Unavailable SANTAMARIA, JENAE Attending Unavailable SANTAMARIA, JENAE Primary Care Unavailable SANTAMARIA, JENAE Attending Unavailable SANTAMARIA, JENAE Primary Care Unavailable SANTAMARIA, JENAE Referring Unavailable SANTAMARIA, JENAE Primary Care Unavailable SANTAMARIA, JENAE Primary Care Unavailable WILL MCFARLANE Admitting Unavailable SHEPARDDENITA Attending Unavaila CONNIE Elizabeth Consulting Unavailable TESTRAKE, YUDY Referring Unavailable TESTRAKE, YUDY Attending Unavailable SANTAMARIA, JENAE Primary Care Unavailable TESTRAKE, YUDY Referring Unavailable TESTRAKE, YUDY Attending Unavailable SANTAMARIA, JENAE Primary Care Unavailable TESTRAKE, YUDY Referring Unavailable TESTRAKE, YUDY Attending Unavailable SANTAMARIA, JENAE Primary Care Unavailable SANTAMARIA, JENAE Referring Unavailable SANTAMARIA, JENAE Primary Care Unavailable PROBLEMS DATE TYPE CONDITION / CODE ATTENDING STATUS [facility] 12/12/2024 Active Onychomycosis / B35.1(ICD-10) YUDY BENOIT Active [facility] 12/12/2024 Active Pain in toe of l eft foot / M79.675(ICD-10) YUDY BENOIT Active [facility] 12/12/2024 Active Pain in toe of r ight foot / M79.674(ICD-10) YUDY BENOIT Active [facility] 12/12/2024 Active Diabetic polyneu ropathy associated with type 2 diabetes mellitus (HCC) / E11.42(ICD-10) YUDY BENOIT Active [facility] 12/12/2024 Active PAD (peripheral artery disease) / I73.9(ICD-10) YUDY BENOIT Active [facility] [place] 10/27/2024 Active Weakness / R53.1(ICD-10) IQB AL, [facility] Active [facility] 10/27/2024 Active Confusion / R41.0(ICD-10) IQ BAL, [facility] Active [facility] 10/27/2024 Active Tachycardia / R00.0(ICD-10) SHEPARD, [facility] Active [facility] 10/27/2024 Active Hypokalemia / E87.6(ICD-10) SHEPARD, [facility] Active [facility] 10/27/2024 Active Delirium / R41.0(ICD-10) IQB AL, [facility] Active [facility] 10/27/2024 Active Acute cystitis w ith hematuria / N30.01(ICD-10) SHEPARD, [facility] 10/27/2024 Active Leg swelling / M79.89(ICD-10) SHEPARD, [facility] 03/25/2021 Active Stage 3 chronic kidney disease, unspecified whether stage 3a or 3b CKD (HCC) / N18.30(ICD-10) ZOILA [facility] 09/15/2024 Active History of recta l cancer / Z85.048(ICD-10) [facility] 09/15/2024 Active Upper GI bleed / K92.2(ICD-10) ZOILA [facility] 09/07/2024 Active Nail care / UNK(Unknown) VESNA BENOIT Active [facility] 03/25/2021 Active Stage 3a chronic kidney disease (HCC) / N18.31(ICD-10) H[facility] 09/25/2020 Active 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 rupture, unspecified part / I71.60(ICD-10) [facility] 09/23/2020 Active Abdominal aortic aneurysm (AAA) without rupture, unspecified part / I71.40(ICD-10) HINA BANNER Active [facility] 08/22/2024 Active Recurrent UTI / N39.0(ICD-10) [facility] 08/22/2024 Active Urinary retentio n / R33.9(ICD-10) [facility] 08/22/2024 Active Hydronephrosis o f right kidney / N13.30(ICD-10) [facility] 08/22/2024 Active Wound infection / T14.8XXA(ICD-10) [facility] 08/22/2024 Active Wound infection / L08.9(ICD-10) [facility] 08/22/2024 Active Screening for di abetic retinopathy / Z13.5(ICD-10) [facility] 03/25/2021 Active Type 2 diabetes mellitus with other circulatory complication, with long-term current use of insulin (HCC) / E11.59(ICD-10) [facility] 03/25/2021 Active Type 2 diabetes mellitus with other circulatory complication, with long-term current use of insulin (HCC) / Z79.4(ICD-10) [facility] 10/18/2020 Active Rectal cancer (H CC) / C20(ICD-10) [facility] 10/18/2020 Active Unspecified hypothyroidism / E03.9(ICD-10) [facility] 09/23/2020 Active H/O aorto-femora l bypass / Z95.828(ICD-10) [facility] 09/23/2020 Active Abdominal aortic aneurysm (AAA) without rupture, unspecified part ([facility]) / I71.40(ICD-10) [facility] 04/07/2024 Active PAD (peripheral artery disease) ([facility]) / I73.9(ICD-10) [facility] 04/07/2024 Active Chronic obstruct radha pulmonary disease, unspecified COPD type ([facility]) / J44.9(ICD-10) [facility] 04/07/2024 Active JANELL (obstructive sleep apnea) / G47.33(ICD-10) [facility] 04/07/2024 Active Encounter for immunization / Z23(ICD-10) [facility] 04/07/2024 Active Vitamin D defici ency / E55.9(ICD-10) [facility] 04/07/2024 Active Eosinophilic eso phagitis / K20.0(ICD-10) [facility] 04/07/2024 Active Acute deep vein thrombosis (DVT) of proximal vein of left lower extremity (HCC) / I82.4Y2(ICD-10) [facility] PROCEDURES No Procedure Records Found RESULTS PROGRESS Observed: 12/13/2024 11:26 AM Status: COMPLETED Source: [facility] HNO ID: [id number] Author: MARIA E ROLLINS RN Service: ? Author Type: Registered Nurse Type: Progress Notes Filed: 12/13/2024 11:28 Note Text: Spoke to nurse at [facility]. Patient remains at the facility with no plans for discharge at this time. The facility physician has assumed care of the patient during their stay. This includes medications and medication refills. I will let your office know when he/she is discharged. Maria E Rollins RN December 13, 2024 11:26 AM EMMANUELLETOBERTA Observed: 12/13/2024 12:00 AM Status: COMPLETED Source: [facility] Patient Outreach (AGACM) EMELIA JOHNSON ([id number]) 1950 M Date Time Provider Department 12/13/24 MARIA E ROLLINS [facility] During your visit today, we recorded the following information about you: Maria E Rollins RN 12/13/2024 11:28 AM Signed Spoke to nurse at [facility]. Patient remains at the facility with no plans for discharge at this time. The facility physician has assumed care of the patient during their stay. This includes medications and medication refills. I will let your office know when he/she is discharged. Maria E Rollins RN December 13, 2024 11:26 AM Allergies As of Date: 12/13/2024 Noted Allergy Reaction LIPITOR (ATORVASTATIN) 11/17/2013 14 - Other: See Comments Comments: body aches Date Reviewed: 12/12/2024 Reviewed by: Jojo Dewey RN - Fully Assessed Reason for Visit: Transition Of Care [4074] Cmt: SNF update Prescriptions as of 12/13/2024 - acetaminophen 325 mg cap Take 650 mg by mouth every 4 hours as needed for pain or fever (specify temp.) (Oral or supository). - aluminum-magnesium hydroxide-simethicone (MAALOX,MYLANTA,MAG-AL PLUS) 200-200-20 mg/5 mL suspension Take 30 mL by mouth every 6 hours as needed. - ciprofloxacin HCl (CIPRO) 500 mg tablet Take 500 mg by mouth two times a day. Till 12/17/24 for UTI - ergocalciferol 50,000 unit capsule (VITAMIN D2, DRISDOL) Take 50,000 Units by mouth one time a week. - fenofibrate (LOFIBRA) 200 mg capsule Take 200 mg by mouth daily with breakfast. - glucagon 1 mg/0.2 mL syrg Inject 1 mL subcutaneously as needed (For symptomatic hypoglycemia). - dextrose (GLUCOSE GEL PO) Take by mouth as needed (hypoglycemia). - GUAIFENESIN PO Take 10 mL by mouth every 4 hours as needed (cough, congestion). - furosemide (LASIX) 20 mg tablet Take 20 mg by mouth two times a day. - magnesium hydroxide (MILK OF MAGNESIA PO) Take 30 mL by mouth as needed (Constipation). - alogliptin (NESINA) 6.25 mg tab Take 6.25 mg by mouth two times a day. - traMADol (ULTRAM) 50 mg tablet Take 50 mg by mouth two times a day as needed for pain. - triamcinolone acetonide (KENALOG) 0.1 % cream Apply to affected area two times a day. - finasteride (PROSCAR) 5 mg tablet TAKE 1 TABLET BY MOUTH EVERY DAY - Cholecalciferol, Vitamin D3, (VITAMIN D) 25 mcg (1,000 unit) cap Take 2 capsules by mouth once daily. - levothyroxine (SYNTHROID) 175 mcg tablet Take 1 tablet by mouth daily before breakfast. - rosuvastatin (CRESTOR) 10 mg tablet Take 1 tablet by mouth daily at bedtime. - ferrous sulfate 325 mg (65 mg iron) tablet Take 1 tablet by mouth every other day. - wqpcsmlyavc-muzegwram-zdupgrev (TRELEGY ELLIPTA) 100-62.5-25 mcg inhalation powder Inhale 1 puff as instructed once daily. - linaGLIPtin (TRADJENTA) 5 mg tab Take 1 tablet by mouth once daily. - pantoprazole DR (PROTONIX) 40 mg tablet Take 1 tablet by mouth two times a day. - amLODIPine (NORVASC) 5 mg tablet TAKE 1 TABLET BY MOUTH EVERY DAY - loratadine (CLARITIN) 10 mg tablet TAKE 1 TABLET BY MOUTH EVERY DAY - icosapent ethyl (VASCEPA) 1 gram capsule Take 2 capsules by mouth two times a day. - aspirin, enteric coated (ASPIRIN, ENTERIC COATED) 81 mg EC tablet Take 1 tablet by mouth once daily. - albuterol HFA (PROVENTIL HFA) 90 mcg/actuation inhaler Inhale 1-2 Puffs as instructed four times a day as needed for wheezing/shortness of breath. - fluticasone (FLONASE) 50 mcg/actuation nasal spray SPRAY 1 SPRAY INTO EACH NOSTRIL AT BEDTIME - Blood Pressure Test Kit-Large (CLEVER CHOICE BP MONITOR) 1 Each two times a day. - flash glucose sensor (FREESTYLE HEMA 14 DAY SENSOR) kit 1 Each four times daily. - Fenofibrate 160 mg tablet Take 1 tablet by mouth once daily. Problem List As Of Date 12/13/2024 Noted Resolved 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*11/21/2013 02/08/2020 Atherosclerosis of [place] artery of extremity w*11/21/2013 Other hyperlipidemia [E78.49] Unspecified hypothyroidism [E03.9] Smoker [F17.200] 01/27/2015 Chronic ischemic right MCA stroke [Z86.73] 02/08/2020 CAD (coronary artery disease), [place] coronary *12/27/2013 Postprocedural hypotension [I95.81] 12/27/2013 09/25/2020 Stress hyperglycemia [R73.9] 12/27/2013 01/27/2015 Hypoxia [R09.02] 12/27/2013 12/28/2013 Acute blood loss anemia [D62] 12/30/2013 01/27/2015 Acute post-operative pain [G89.18] 01/03/2014 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] 01/03/2020 Embolic stroke involving right carotid artery (*02/08/2020 Symptomatic carotid artery stenosis [I65.29] 02/13/2020 BPH (benign prostatic hyperplasia) [N40.0] CKD (chronic kidney disease) stage 3, GFR 30-59* 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* Hemorrhoids [K64.9] Psoriasis [L40.9] Former smoker [Z87.891] AAA (abdominal aortic aneurysm) without rupture* 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 History of right-sided carotid endarterectomy [*03/13/2020 History of CVA (cerebrovascular accident) [Z86.*09/12/2020 Carotid artery disease (HCC) [I77.9] 09/12/2020 09/24/2020 Rectal cancer (HCC) [C20] 09/23/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HCC) [Z93.3] 09/23/2020 Acute postoperative respiratory insufficiency [*09/23/2020 10/18/2020 Metabolic acidosis [E87.20] 09/23/2020 09/24/2020 Electrolyte abnormality [E87.8] 09/23/2020 Hypoalbuminemia [E88.09] 09/24/2020 09/30/2020 Obesity, Class I, BMI 30-34.9 [E66.811] 09/26/2020 Essential (primary) hypertension [I10] 09/27/2020 Delirium [R41.0] 09/30/2020 10/18/2020 Idiopathic hypotension [I95.0] 09/30/2020 10/18/2020 Abnormal urinalysis [R82.90] 10/02/2020 Moderate protein-calorie malnutrition (HCC) [E4*10/03/2020 Postoperative ileus (HCC) [K91.89, K56.7] 10/04/2020 10/18/2020 On total parenteral nutrition (TPN) [Z78.9] 10/08/2020 10/13/2020 Peripherally inserted central catheter (PICC) i*10/08/2020 10/18/2020 Postoperative urinary retention [N99.89, R33.8] 10/08/2020 Hyponatremia [E87.1] 10/08/2020 10/18/2020 Urinary tract infection associated with indwell*10/13/2020 Acute metabolic encephalopathy [G93.41] 10/27/2024 Encounter Status:Closed by MARIA E ROLLINS on 12/13/24 PROGRESS Observed: 12/12/2024 10:58 AM Status: COMPLETED Source: [facility] HNO ID: [id number] Author: CAROLYNE MENON LPN Service: ? Author Type: Licensed Nurse Type: Progress Notes Filed: 12/12/2024 11:02 Note Text: Per Dr. Benoit, Band aid and antibiotic was applied to left foot Carolyne Menon LPN PROGRESS Observed: 12/12/2024 10:38 AM Status: COMPLETED Source: [facility] HNO ID: [id number] Author: YUDY BENOIT, ? Service: ? Author Type: Physician Type: Progress Notes Filed: 12/12/2024 10:48 Note Text: Last saw pcp: 08/22/24 Subjective: Patient presents to clinic c/o painful toenails. They state that the nails are especially painful with shoe gear and pressure. Patient states that nails 1-5 b/l are painful. Patient admits to being diabetic No other pedal complaints at this time. Patient states no change in medications or medical history since last visit. Objective: Patient presents to clinic nonambulatory Vasc: DP and PT pulses are nonpalpable bilateral. CFT is less than 5 seconds bilateral. Skin temperature is warm to cool proximal to distal bilateral. There is severe edema or varicosities noted. Neuro: Protective sensation is absent to the foot and toes when tested with the 5.07 SWM bilateral. Vibratory sensation is absent at the hallux IPJ bilateral. The hallux is downgoing bilateral. Derm: Nails 1-5 b/l are painful, discolored-yellow, thick, crumbly, dystrophic and with subungal debris. Skin is of normal turgor, texture and hair growth is absent bilateral. There is a superficial, noninfected blood blister of left medial instep Ortho: Muscle strength is 5/5 for all pedal groups tested. Ankle joint DF is decreased with the knee extended with no pain or crepitus noted. 1st MPJ ROM is decreased bilateral. Assessment: (B35.1) Onychomycosis (primary encounter diagnosis) (M79.675) Pain in toe of left foot (M79.674) Pain in toe of right foot (E11.42) Diabetic polyneuropathy associated with type 2 diabetes mellitus (HCC) (I73.9) PAD (peripheral artery disease) Plan: Patient was seen and evaluated. Nails 1-5 bilateral were debrided in length and thickness. Patient was instructed on the continued importance of diabetic foot care along with proper diet and keeping their blood sugar under control to prevent complications. I stressed the importance of avoiding barefoot walking, wearing good shoes and avoiding barefoot walking He does have a blood blister that he states happened when bumping his foot on wheel chair ramp. Recommend topical antibiotic until healed. If he has any issues he can contact office. Offered xray but patient declined. Patient is to RTC in 3-4 months. Yudy Benoit DPM PROGRESS Observed: 12/12/2024 10:01 AM Status: COMPLETED Source: [facility] HNO ID: [id number] Author: JOJO DEWEY RN Service: ? Author Type: Registered Nurse Type: Progress Notes Filed: 12/12/2024 10:48 Note Text: Patient presents with: Left Foot - Established Patient, Follow Up, Diabetic Foot Care Right Foot - Established Patient, Follow Up, Diabetic Foot Care Patient presents for follow up diabetic foot/nail care. Left leg swelling. Currently in [facility] and nonambulatory. In wheelchair at this time. CAITLYN 09/07/24 CNOV Observed: 12/12/2024 10:00 AM Status: COMPLETED Source: [facility] Office Visit (PODIWS) EMELIA JOHNSON ([id number]) 1950 M Date Time Provider Department 12/12/24 10:00 AM YUDY BENOIT During your visit today, we recorded the following information about you: Jojo Dewey RN 12/12/2024 10:48 AM Signed Patient presents with: Left Foot - Established Patient, Follow Up, Diabetic Foot Care Right Foot - Established Patient, Follow Up, Diabetic Foot Care Patient presents for follow up diabetic foot/nail care. Left leg swelling. Currently in [facility] and nonambulatory. In wheelchair at this time. CAITLYN 09/07/24 Yudy Benoit 12/12/2024 10:48 AM Signed Last saw pcp: 08/22/24 Subjective: Patient presents to clinic c/o painful toenails. They state that the nails are especially painful with shoe gear and pressure. Patient states that nails 1-5 b/l are painful. Patient admits to being diabetic No other pedal complaints at this time. Patient states no change in medications or medical history since last visit. Objective: Patient presents to clinic nonambulatory Vasc: DP and PT pulses are nonpalpable bilateral. CFT is less than 5 seconds bilateral. Skin temperature is warm to cool proximal to distal bilateral. There is severe edema or varicosities noted. Neuro: Protective sensation is absent to the foot and toes when tested with the 5.07 SWM bilateral. Vibratory sensation is absent at the hallux IPJ bilateral. The hallux is downgoing bilateral. Derm: Nails 1-5 b/l are painful, discolored-yellow, thick, crumbly, dystrophic and with subungal debris. Skin is of normal turgor, texture and hair growth is absent bilateral. There is a superficial, noninfected blood blister of left medial instep Ortho: Muscle strength is 5/5 for all pedal groups tested. Ankle joint DF is decreased with the knee extended with no pain or crepitus noted. 1st MPJ ROM is decreased bilateral. Assessment: (B35.1) Onychomycosis (primary encounter diagnosis) (M79.675) Pain in toe of left foot (M79.674) Pain in toe of right foot (E11.42) Diabetic polyneuropathy associated with type 2 diabetes mellitus (HCC) (I73.9) PAD (peripheral artery disease) Plan: Patient was seen and evaluated. Nails 1-5 bilateral were debrided in length and thickness. Patient was instructed on the continued importance of diabetic foot care along with proper diet and keeping their blood sugar under control to prevent complications. I stressed the importance of avoiding barefoot walking, wearing good shoes and avoiding barefoot walking He does have a blood blister that he states happened when bumping his foot on wheel chair ramp. Recommend topical antibiotic until healed. If he has any issues he can contact office. Offered xray but patient declined. Patient is to RTC in 3-4 months. ANTONIETTA Valdovinos Matthew 12/12/2024 10:47 AM Signed Diabetes Foot Care Instructions When you have diabetes, proper foot care is very important. Poor foot care may lead to amputation of a foot or leg. As a person with diabetes, you are more vulnerable to foot problems, because diabetes can damage your nerves and reduce blood flow to your feet. Here are some diabetes foot care tips to follow: Wash and Dry Your Feet Daily Use mild soaps Use warm water Pat your skin dry; do not rub. Thoroughly dry your feet. After washing, use lotion on your feet to prevent cracking. Do not put lotion between your toes. Examine Your Feet Each Day Check the tops and bottoms of your feet. Have someone else look at your feet if you cannot see them. Check for dry, cracked skin. Look for blisters, cuts, scratches, or other sores. Check for redness, increased warmth, or tenderness when touching any area of your feet. Check for ingrown toenails, corns, and calluses. If you get a blister or sore from your shoes, do not pop it. Apply a bandage and wear a different pair of shoes. Take Care of Your Toenails Cut toenails after bathing, when they are soft. Cut toenails straight across and smooth with a nail file. Avoid cutting into the corners of toes. Do not cut cuticles. If you have neuropathy (or decreased sensation in your feet) a power generation engineer should always cut your toenails. Be Careful When Exercising Walk and exercise in comfortable shoes. Do not exercise when you have open sores on your feet. Protect Your Feet With Shoes and Socks Never go barefoot. Always protect your feet by wearing shoes or hard-soled slippers or footwear. Avoid shoes with high heels and pointed toes. Avoid shoes that expose your toes or heels (such as open-toed shoes or sandals). These types of shoes increase your risk for injury and potential infections. Try on new footwear with the type of socks you usually wear. Do not wear new shoes for more than an hour at a time. Change your socks daily. Look and feel inside your shoes before putting them on to make sure there are no foreign objects or rough areas. Avoid tight socks. Wear natural-fiber socks (cotton, wool, or a cotton-wool blend). Wear special shoes if your health care provider recommends them. Wear shoes/boots that will protect your feet from various weather conditions (cold, moisture, etc.). Make sure your shoes fit properly. If you have neuropathy (nerve damage), you may not notice that your shoes are too tight. Perform the footwear test described below. Footwear Test Use this simple test to see if your shoes fit correctly: Stand on a piece of paper. (Make sure you are standing and not sitting, because your foot changes shape when you stand.) Trace the outline of your foot. Trace the outline of your shoe. Compare the tracings: Is the shoe too narrow? Is your foot crammed into the shoe? The shoe should be at least 1/2 inch longer than your longest toe and as wide as your foot. Proper Shoe Choices The following types of shoes are best for people with diabetes Closed toes and heels Leather uppers without a seam inside At least 1/2 inch extra space at the end of your longest toe Inside of shoe should be soft with no rough areas Outer sole should be made of stiff material Shoes should be at least as wide as your feet Tips for Foot Care in Diabetes Don't wait to treat a minor foot problem if you have diabetes. Follow your health care provider's guidelines and first aid guidelines. Report foot injuries and infections to your health care provider immediately. Check water temperature with your elbow, not your foot. Do not use a heating pad on your feet. Do not cross your legs. Do not self-treat your corns, calluses, or other foot problems. Go to your health care provider or power generation engineer to treat these conditions. Carolyne Menon LPN 12/12/2024 11:[address] Benoit, Band aid and antibiotic was applied to left foot Carolyne Menon LPN Referring Provider: YUDY BENOIT [[id number]] Allergies As of Date: 12/12/2024 Noted Allergy Reaction LIPITOR (ATORVASTATIN) 11/17/2013 14 - Other: See Comments Comments: body aches Date Reviewed: 12/12/2024 Reviewed by: Jojo Dewey RN - Fully Assessed Reason for Visit: Established Patient [175] Follow Up [171] Diabetic Foot Care [916] Established Patient [175] Follow Up [171] Diabetic Foot Care [916] Primary Visit Diagnosis:Onychomycosis [B35.1] Other Visit Diagnoses:Pain in toe of left foot [M79.675] Pain in toe of right foot [M79.674] Diabetic polyneuropathy associated with type 2 diabetes mellitus (HCC) [E11.42] PAD (peripheral artery disease) [I73.9] Prescriptions as of 12/12/2024 - acetaminophen 325 mg cap Take 650 mg by mouth every 4 hours as needed for pain or fever (specify temp.) (Oral or supository). - aluminum-magnesium hydroxide-simethicone (MAALOX,MYLANTA,MAG-AL PLUS) 200-200-20 mg/5 mL suspension Take 30 mL by mouth every 6 hours as needed. - ciprofloxacin HCl (CIPRO) 500 mg tablet Take 500 mg by mouth two times a day. Till 12/17/24 for UTI - ergocalciferol 50,000 unit capsule (VITAMIN D2, DRISDOL) Take 50,000 Units by mouth one time a week. - fenofibrate (LOFIBRA) 200 mg capsule Take 200 mg by mouth daily with breakfast. - glucagon 1 mg/0.2 mL syrg Inject 1 mL subcutaneously as needed (For symptomatic hypoglycemia). - dextrose (GLUCOSE GEL PO) Take by mouth as needed (hypoglycemia). - GUAIFENESIN PO Take 10 mL by mouth every 4 hours as needed (cough, congestion). - furosemide (LASIX) 20 mg tablet Take 20 mg by mouth two times a day. - magnesium hydroxide (MILK OF MAGNESIA PO) Take 30 mL by mouth as needed (Constipation). - alogliptin (NESINA) 6.25 mg tab Take 6.25 mg by mouth two times a day. - traMADol (ULTRAM) 50 mg tablet Take 50 mg by mouth two times a day as needed for pain. - triamcinolone acetonide (KENALOG) 0.1 % cream Apply to affected area two times a day. - finasteride (PROSCAR) 5 mg tablet TAKE 1 TABLET BY MOUTH EVERY DAY - Cholecalciferol, Vitamin D3, (VITAMIN D) 25 mcg (1,000 unit) cap Take 2 capsules by mouth once daily. - levothyroxine (SYNTHROID) 175 mcg tablet Take 1 tablet by mouth daily before breakfast. - rosuvastatin (CRESTOR) 10 mg tablet Take 1 tablet by mouth daily at bedtime. - ferrous sulfate 325 mg (65 mg iron) tablet Take 1 tablet by mouth every other day. - ygdruyajasu-alhkwmjks-rjcdhlxo (TRELEGY ELLIPTA) 100-62.5-25 mcg inhalation powder Inhale 1 puff as instructed once daily. - linaGLIPtin (TRADJENTA) 5 mg tab Take 1 tablet by mouth once daily. - pantoprazole DR (PROTONIX) 40 mg tablet Take 1 tablet by mouth two times a day. - amLODIPine (NORVASC) 5 mg tablet TAKE 1 TABLET BY MOUTH EVERY DAY - loratadine (CLARITIN) 10 mg tablet TAKE 1 TABLET BY MOUTH EVERY DAY - icosapent ethyl (VASCEPA) 1 gram capsule Take 2 capsules by mouth two times a day. - aspirin, enteric coated (ASPIRIN, ENTERIC COATED) 81 mg EC tablet Take 1 tablet by mouth once daily. - albuterol HFA (PROVENTIL HFA) 90 mcg/actuation inhaler Inhale 1-2 Puffs as instructed four times a day as needed for wheezing/shortness of breath. - fluticasone (FLONASE) 50 mcg/actuation nasal spray SPRAY 1 SPRAY INTO EACH NOSTRIL AT BEDTIME - Blood Pressure Test Kit-Large (NextDocs BP MONITOR) 1 Each two times a day. - flash glucose sensor (FREESTYLE HEMA 14 DAY SENSOR) kit 1 Each four times daily. - Fenofibrate 160 mg tablet Take 1 tablet by mouth once daily. 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/2013 02/08/2020 Atherosclerosis of [place] artery of extremity w*11/21/2013 Other hyperlipidemia [E78.49] Unspecified hypothyroidism [E03.9] Smoker [F17.200] 01/27/2015 Chronic ischemic right MCA stroke [Z86.73] 02/08/2020 CAD (coronary artery disease), [place] coronary *12/27/2013 Postprocedural hypotension [I95.81] 12/27/2013 09/25/2020 Stress hyperglycemia [R73.9] 12/27/2013 01/27/2015 Hypoxia [R09.02] 12/27/2013 12/28/2013 Acute blood loss anemia [D62] 12/30/2013 01/27/2015 Acute post-operative pain [G89.18] 01/03/2014 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] 01/03/2020 Embolic stroke involving right carotid artery (*02/08/2020 Symptomatic carotid artery stenosis [I65.29] 02/13/2020 BPH (benign prostatic hyperplasia) [N40.0] CKD (chronic kidney disease) stage 3, GFR 30-59* 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* Hemorrhoids [K64.9] Psoriasis [L40.9] Former smoker [Z87.891] AAA (abdominal aortic aneurysm) without rupture* 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 History of right-sided carotid endarterectomy [*03/13/2020 History of CVA (cerebrovascular accident) [Z86.*09/12/2020 Carotid artery disease (HCC) [I77.9] 09/12/2020 09/24/2020 Rectal cancer (HCC) [C20] 09/23/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HCC) [Z93.3] 09/23/2020 Acute postoperative respiratory insufficiency [*09/23/2020 10/18/2020 Metabolic acidosis [E87.20] 09/23/2020 09/24/2020 Electrolyte abnormality [E87.8] 09/23/2020 Hypoalbuminemia [E88.09] 09/24/2020 09/30/2020 Obesity, Class I, BMI 30-34.9 [E66.811] 09/26/2020 Essential (primary) hypertension [I10] 09/27/2020 Delirium [R41.0] 09/30/2020 10/18/2020 Idiopathic hypotension [I95.0] 09/30/2020 10/18/2020 Abnormal urinalysis [R82.90] 10/02/2020 Moderate protein-calorie malnutrition (HCC) [E4*10/03/2020 Postoperative ileus (HCC) [K91.89, K56.7] 10/04/2020 10/18/2020 On total parenteral nutrition (TPN) [Z78.9] 10/08/2020 10/13/2020 Peripherally inserted central catheter (PICC) i*10/08/2020 10/18/2020 Postoperative urinary retention [N99.89, R33.8] 10/08/2020 Hyponatremia [E87.1] 10/08/2020 10/18/2020 Urinary tract infection associated with indwell*10/13/2020 Acute metabolic encephalopathy [G93.41] 10/27/2024 Other instructions from your clinician: Diabetes Foot Care Instructions When you have diabetes, proper foot care is very important. Poor foot care may lead to amputation of a foot or leg. As a person with diabetes, you are more vulnerable to foot problems, because diabetes can damage your nerves and reduce blood flow to your feet. Here are some diabetes foot care tips to follow: Wash and Dry Your Feet Daily Use mild soaps Use warm water Pat your skin dry; do not rub. Thoroughly dry your feet. After washing, use lotion on your feet to prevent cracking. Do not put lotion between your toes. Examine Your Feet Each Day Check the tops and bottoms of your feet. Have someone else look at your feet if you cannot see them. Check for dry, cracked skin. Look for blisters, cuts, scratches, or other sores. Check for redness, increased warmth, or tenderness when touching any area of your feet. Check for ingrown toenails, corns, and calluses. If you get a blister or sore from your shoes, do not pop it. Apply a bandage and wear a different pair of shoes. Take Care of Your Toenails Cut toenails after bathing, when they are soft. Cut toenails straight across and smooth with a nail file. Avoid cutting into the corners of toes. Do not cut cuticles. If you have neuropathy (or decreased sensation in your feet) a power generation engineer should always cut your toenails. Be Careful When Exercising Walk and exercise in comfortable shoes. Do not exercise when you have open sores on your feet. Protect Your Feet With Shoes and Socks Never go barefoot. Always protect your feet by wearing shoes or hard-soled slippers or footwear. Avoid shoes with high heels and pointed toes. Avoid shoes that expose your toes or heels (such as open-toed shoes or sandals). These types of shoes increase your risk for injury and potential infections. Try on new footwear with the type of socks you usually wear. Do not wear new shoes for more than an hour at a time. Change your socks daily. Look and feel inside your shoes before putting them on to make sure there are no foreign objects or rough areas. Avoid tight socks. Wear natural-fiber socks (cotton, wool, or a cotton-wool blend). Wear special shoes if your health care provider recommends them. Wear shoes/boots that will protect your feet from various weather conditions (cold, moisture, etc.). Make sure your shoes fit properly. If you have neuropathy (nerve damage), you may not notice that your shoes are too tight. Perform the footwear test described below. Footwear Test Use this simple test to see if your shoes fit correctly: Stand on a piece of paper. (Make sure you are standing and not sitting, because your foot changes shape when you stand.) Trace the outline of your foot. Trace the outline of your shoe. Compare the tracings: Is the shoe too narrow? Is your foot crammed into the shoe? The shoe should be at least 1/2 inch longer than your longest toe and as wide as your foot. Proper Shoe Choices The following types of shoes are best for people with diabetes Closed toes and heels Leather uppers without a seam inside At least 1/2 inch extra space at the end of your longest toe Inside of shoe should be soft with no rough areas Outer sole should be made of stiff material Shoes should be at least as wide as your feet Tips for Foot Care in Diabetes Don't wait to treat a minor foot problem if you have diabetes. Follow your health care provider's guidelines and first aid guidelines. Report foot injuries and infections to your health care provider immediately. Check water temperature with your elbow, not your foot. Do not use a heating pad on your feet. Do not cross your legs. Do not self-treat your corns, calluses, or other foot problems. Go to your health care provider or power generation engineer to treat these conditions. Disposition: Return in about 3 months (around 03/13/2025). Follow-up and Disposition History for Encounter Date Provider Department Center 12/12/2024 [id number] BENOIT Encounter Status:Closed by YUDY BENOIT DPM on 12/12/24 CNPN Observed: 11/13/2024 12:00 AM Status: COMPLETED Source: [facility] Telephone (UROLWS) EMELIA JOHNSON ([id number]) 1950 M Date Time Provider Department 11/13/24 YVONNE ACEVEDO During your visit today, we recorded the following information about you: Erin Osborne LPN 11/13/2024 9:16 AM Signed Called patient. His daughter, Elidia, answered phone. Verified name and date of of patient. Elidia states patient is in a retirement, [facility], after having a urinary tract infection and they are now seeking long-term care for him at the facility. Elidia uncertain why appointment was made or when. Explained that patient has not been established with provider and appointment for nurse will be cancelled for tomorrow. Elidia is uncertain why a urology appointment would be needed but will let the Care Center know. Erin Osborne LPN Allergies As of Date: 11/13/2024 Noted Allergy Reaction LIPITOR (ATORVASTATIN) 11/17/2013 14 - Other: See Comments Comments: body aches Date Reviewed: 10/30/2024 Reviewed by: Rocio Mendosa RN - Fully Assessed Reason for Visit: Appointment [186] Prescriptions as of 11/13/2024 - Cholecalciferol, Vitamin D3, (VITAMIN D) 25 mcg (1,000 unit) cap Take 2 capsules by mouth once daily. - levothyroxine (SYNTHROID) 175 mcg tablet Take 1 tablet by mouth daily before breakfast. - rosuvastatin (CRESTOR) 10 mg tablet Take 1 tablet by mouth daily at bedtime. - ferrous sulfate 325 mg (65 mg iron) tablet Take 1 tablet by mouth every other day. - aieifyuwlks-mtaqlqrkm-xsgcvgjp (TRELEGY ELLIPTA) 100-62.5-25 mcg inhalation powder Inhale 1 puff as instructed once daily. - linaGLIPtin (TRADJENTA) 5 mg tab Take 1 tablet by mouth once daily. - pantoprazole DR (PROTONIX) 40 mg tablet Take 1 tablet by mouth two times a day. - amLODIPine (NORVASC) 5 mg tablet TAKE 1 TABLET BY MOUTH EVERY DAY - loratadine (CLARITIN) 10 mg tablet TAKE 1 TABLET BY MOUTH EVERY DAY - icosapent ethyl (VASCEPA) 1 gram capsule Take 2 capsules by mouth two times a day. - finasteride (PROSCAR) 5 mg tablet Take 1 tablet by mouth once daily. - aspirin, enteric coated (ASPIRIN, ENTERIC COATED) 81 mg EC tablet Take 1 tablet by mouth once daily. - albuterol HFA (PROVENTIL HFA) 90 mcg/actuation inhaler Inhale 1-2 Puffs as instructed four times a day as needed for wheezing/shortness of breath. - fluticasone (FLONASE) 50 mcg/actuation nasal spray SPRAY 1 SPRAY INTO EACH NOSTRIL AT BEDTIME - Blood Pressure Test Kit-Large ([employer] CHOICE BP MONITOR) 1 Each two times a day. - flash glucose sensor (FREESTYLE HEMA 14 DAY SENSOR) kit 1 Each four times daily. - Fenofibrate 160 mg tablet Take 1 tablet by mouth once daily. 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/21/2013 02/08/2020 Atherosclerosis of [place] artery of extremity w*11/21/2013 Other hyperlipidemia [E78.49] Unspecified hypothyroidism [E03.9] Smoker [F17.200] 01/27/2015 Chronic ischemic right MCA stroke [Z86.73] 02/08/2020 CAD (coronary artery disease), [place] coronary *12/27/2013 Postprocedural hypotension [I95.81] 12/27/2013 09/25/2020 Stress hyperglycemia [R73.9] 12/27/2013 01/27/2015 Hypoxia [R09.02] 12/27/2013 12/28/2013 Acute blood loss anemia [D62] 12/30/2013 01/27/2015 Acute post-operative pain [G89.18] 01/03/2014 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] 01/03/2020 Embolic stroke involving right carotid artery (*02/08/2020 Symptomatic carotid artery stenosis [I65.29] 02/13/2020 BPH (benign prostatic hyperplasia) [N40.0] CKD (chronic kidney disease) stage 3, GFR 30-59* 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* Hemorrhoids [K64.9] Psoriasis [L40.9] Former smoker [Z87.891] AAA (abdominal aortic aneurysm) without rupture* 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 History of right-sided carotid endarterectomy [*03/13/2020 History of CVA (cerebrovascular accident) [Z86.*09/12/2020 Carotid artery disease (HCC) [I77.9] 09/12/2020 09/24/2020 Rectal cancer (HCC) [C20] 09/23/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HCC) [Z93.3] 09/23/2020 Acute postoperative respiratory insufficiency [*09/23/2020 10/18/2020 Metabolic acidosis [E87.20] 09/23/2020 09/24/2020 Electrolyte abnormality [E87.8] 09/23/2020 Hypoalbuminemia [E88.09] 09/24/2020 09/30/2020 Obesity, Class I, BMI 30-34.9 [E66.811] 09/26/2020 Essential (primary) hypertension [I10] 09/27/2020 Delirium [R41.0] 09/30/2020 10/18/2020 Idiopathic hypotension [I95.0] 09/30/2020 10/18/2020 Abnormal urinalysis [R82.90] 10/02/2020 Moderate protein-calorie malnutrition (HCC) [E4*10/03/2020 Postoperative ileus (HCC) [K91.89, K56.7] 10/04/2020 10/18/2020 On total parenteral nutrition (TPN) [Z78.9] 10/08/2020 10/13/2020 Peripherally inserted central catheter (PICC) i*10/08/2020 10/18/2020 Postoperative urinary retention [N99.89, R33.8] 10/08/2020 Hyponatremia [E87.1] 10/08/2020 10/18/2020 Urinary tract infection associated with indwell*10/13/2020 Acute metabolic encephalopathy [G93.41] 10/27/2024 Encounter Status:Closed by ERIN OSBORNE on 11/13/24 PROGRESS Observed: 10/31/2024 7:52 AM Status: COMPLETED Source: [facility] HNO ID: [id number] Author: EMILY FERRO RN Service: ? Author Type: Registered Nurse Type: Progress Notes Filed: 10/31/2024 07:53 Note Text: TRANSITION CARE MANAGEMENT (TCM) DISCHARGE TO POST ACUTE FACILITY POST ACUTE TRANSFER SUMMARY: -Pt discharged from [facility] on 10/30/2024. -Post Acute Facility Admitted to [facility] -Admitted for: Metabolic encephalopathy Office PCC will follow at discharge. Emily Ferro RN October 31, 2024 CNPTOUTREACH Observed: 10/31/2024 12:00 AM Status: COMPLETED Source: [facility] Patient Outreach (AGACM) ALEXEMELIA Ranjeet ([id number]) 1950 M Date Time Provider Department 10/31/24 EMILY FERRO [facility] During your visit today, we recorded the following information about you: Emily Ferro RN 10/31/2024 7:53 AM Signed TRANSITION CARE MANAGEMENT (TCM) DISCHARGE TO POST ACUTE FACILITY POST ACUTE TRANSFER SUMMARY: -Pt discharged from [facility] on 10/30/2024. -Post Acute Facility Admitted to [facility] -Admitted for: Metabolic encephalopathy Office PCC will follow at discharge. Emily Ferro RN October 31, 2024 Allergies As of Date: 10/31/2024 Noted Allergy Reaction LIPITOR (ATORVASTATIN) 11/17/2013 14 - Other: See Comments Comments: body aches Date Reviewed: 10/30/2024 Reviewed by: Rocio Mendosa RN - Fully Assessed Reason for Visit: Transition Of Care [4074] Cmt: [facility] Discharge to [facility] Prescriptions as of 10/31/2024 - levothyroxine (SYNTHROID) 175 mcg tablet Take 1 tablet by mouth daily before breakfast. - rosuvastatin (CRESTOR) 10 mg tablet Take 1 tablet by mouth daily at bedtime. - ferrous sulfate 325 mg (65 mg iron) tablet Take 1 tablet by mouth every other day. - jzkvtovkmom-rchudokzg-motdyioq (TRELEGY ELLIPTA) 100-62.5-25 mcg inhalation powder Inhale 1 puff as instructed once daily. - linaGLIPtin (TRADJENTA) 5 mg tab Take 1 tablet by mouth once daily. - pantoprazole DR (PROTONIX) 40 mg tablet Take 1 tablet by mouth two times a day. - ergocalciferol 50,000 unit capsule (VITAMIN D2, DRISDOL) TAKE 1 CAPSULE BY MOUTH ONE TIME A WEEK. - amLODIPine (NORVASC) 5 mg tablet TAKE 1 TABLET BY MOUTH EVERY DAY - loratadine (CLARITIN) 10 mg tablet TAKE 1 TABLET BY MOUTH EVERY DAY - icosapent ethyl (VASCEPA) 1 gram capsule Take 2 capsules by mouth two times a day. - finasteride (PROSCAR) 5 mg tablet Take 1 tablet by mouth once daily. - aspirin, enteric coated (ASPIRIN, ENTERIC COATED) 81 mg EC tablet Take 1 tablet by mouth once daily. - albuterol HFA (PROVENTIL HFA) 90 mcg/actuation inhaler Inhale 1-2 Puffs as instructed four times a day as needed for wheezing/shortness of breath. - fluticasone (FLONASE) 50 mcg/actuation nasal spray SPRAY 1 SPRAY INTO EACH NOSTRIL AT BEDTIME - Blood Pressure Test Kit-Large (NextDocs BP MONITOR) 1 Each two times a day. - flash glucose sensor (FREESTYLE HEMA 14 DAY SENSOR) kit 1 Each four times daily. - Fenofibrate 160 mg tablet Take 1 tablet by mouth once daily. 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/2013 02/08/2020 Atherosclerosis of [place] artery of extremity w*11/21/2013 Other hyperlipidemia [E78.49] Unspecified hypothyroidism [E03.9] Smoker [F17.200] 01/27/2015 Chronic ischemic right MCA stroke [Z86.73] 02/08/2020 CAD (coronary artery disease), g[place] coronary *12/27/2013 Postprocedural hypotension [I95.81] 12/27/2013 09/25/2020 Stress hyperglycemia [R73.9] 12/27/2013 01/27/2015 Hypoxia [R09.02] 12/27/2013 12/28/2013 Acute blood loss anemia [D62] 12/30/2013 01/27/2015 Acute post-operative pain [G89.18] 01/03/2014 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] 01/03/2020 Embolic stroke involving right carotid artery (*02/08/2020 Symptomatic carotid artery stenosis [I65.29] 02/13/2020 BPH (benign prostatic hyperplasia) [N40.0] CKD (chronic kidney disease) stage 3, GFR 30-59* 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* Hemorrhoids [K64.9] Psoriasis [L40.9] Former smoker [Z87.891] AAA (abdominal aortic aneurysm) without rupture* 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 History of right-sided carotid endarterectomy [*03/13/2020 History of CVA (cerebrovascular accident) [Z86.*09/12/2020 Carotid artery disease (HCC) [I77.9] 09/12/2020 09/24/2020 Rectal cancer (HCC) [C20] 09/23/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HCC) [Z93.3] 09/23/2020 Acute postoperative respiratory insufficiency [*09/23/2020 10/18/2020 Metabolic acidosis [E87.20] 09/23/2020 09/24/2020 Electrolyte abnormality [E87.8] 09/23/2020 Hypoalbuminemia [E88.09] 09/24/2020 09/30/2020 Obesity, Class I, BMI 30-34.9 [E66.811] 09/26/2020 Essential (primary) hypertension [I10] 09/27/2020 Delirium [R41.0] 09/30/2020 10/18/2020 Idiopathic hypotension [I95.0] 09/30/2020 10/18/2020 Abnormal urinalysis [R82.90] 10/02/2020 Moderate protein-calorie malnutrition (HCC) [E4*10/03/2020 Postoperative ileus (HCC) [K91.89, K56.7] 10/04/2020 10/18/2020 On total parenteral nutrition (TPN) [Z78.9] 10/08/2020 10/13/2020 Peripherally inserted central catheter (PICC) i*10/08/2020 10/18/2020 Postoperative urinary retention [N99.89, R33.8] 10/08/2020 Hyponatremia [E87.1] 10/08/2020 10/18/2020 Urinary tract infection associated with indwell*10/13/2020 Acute metabolic encephalopathy [G93.41] 10/27/2024 Encounter Status:Closed by EMILY FERRO on 10/31/24 NUTRITION Observed: 10/30/2024 3:40 PM Status: COMPLETED Source: [facility] HNO ID: [id number] Author: HENNY MOREJON RD Service: Nutrition Therapy Author Type: Registered Dietitian Type: Nutrition Filed: 10/30/2024 15:42 Note Text: NUTRITION THERAPY SCREEN NOTE SERVICE DATE: 10/30/2024 SERVICE TIME: Start Time: 1013 Care Plan: Continue current diet Assist with feeds Monitor and Evaluation: Meet greater than 75% of estimated needs Intake History: Current Nutrition Intake: (25-50% past 2 days) Pt confused. Nurse present in room. Nurses Aide to help feed pt breakfast this morning. Prior po intake unknown, no visitors at bed side. Now pt with discharge to SNF per chart review. B/L-100% today. Diet Orders (From admission, onward) Start Ordered 10/27/242153 DIET REGULAR START NOW 10/27/242153 Anthropometrics: Height: 170.2 cm (5' 7) Weight: 81.7 kg (180 lb 1.9 oz) Usual Weight: 80.7 kg (178 lb) 08/22/24. 12/10/23 177lbs, 09/10/23 176lbs. Usual Weight Obtained From: Chart Review Weight change percentage over time: No significant weight changes Lines, Drains, and Airways Drain Duration Colostomy 10/28/24 LLQ 2 days Surgically Inserted Drain 10/27/24 1541 External Facility Suprapubic Right Lower Quadrant;Anterior Pelvic 2 days MNT Billing: $ Routine Care : 1 unit Time Spent (mins): 2 SIGNATURE: Henny Morejon RD PATIENT NAME: Emelia Johnson DATE: October 30, 2024 TIME: 3:40 PM CASE MANAGEM Observed: 10/30/2024 3:37 PM Status: COMPLETED Source: [facility] HNO ID: [id number] Author: DASHAWN GARCIA RN Service: Care Management Author Type: Registered Nurse Type: Care Mgt Progress Note Filed: 10/30/2024 15:39 Note Text: CARE MANAGEMENT DISCHARGE NOTE SERVICE DATE: October 30, 2024 SERVICE TIME: 3:37 PM Admission Date: 10/27/2024 LOS: 3 days Discharge Arrangement Discharge Arrangement: Half-Way Facility Was an expedited discharge program used?: No Services Arranged SNF Placement Provider Name: [facility] Caregiver Assessment Caregiver is ready, willing and able to meet the patient's needs as recommended by the inter-professional team: Yes Name of Caregiver: [facility] Transportation Arrangements Transportation Arrangements: Ambulance Transportation Agency and Phone #:: [facility] [phone] Date of Trip: 10/30/24 Time of Trip: 1530 Type of Service: BLS Non-emergency Is Patient Medicaid Pending?: No Was transportation financial coverage discussed with family?: Patient [employer] Location: [place] Destination: [facility] Financial Care Management Responsibility: None Handoff Communication: Handoff to: Primary Care Physician Primary Care Physician Name/Phone: Jenae Santamaria MD SOC sent Additional Information: Per MD patient is medically ready for DC today Patient will dc to [facility] SNF updated with time and orders Per request of daughter MMT set for 3:30, aware of any potential costs associated with transportation program director provided number to call report CM updated daughter via phone and patient at bedside SIGNATURE: Dashawn Garcia RN PATIENT NAME: Emelia Johnson DATE: October 30, 2024 TIME: 3:37 PM CNDS Observed: 10/30/2024 12:38 PM Status: COMPLETED Source: [facility] HNO ID: [id number] Author: DENITA SHEPARD MD Service: Hospital Medicine Author Type: Physician Type: Discharge Summary Filed: 10/31/2024 12:03 Note Text: DISCHARGE SUMMARY PATIENT NAME: Emelia Johnson ADMISSION DATE: 10/27/2024 DISCHARGE DATE: 10/30/2024 ATTENDING PHYSICIAN: Denita Shepard,* Code Status: Not on file PCP: Jenae Santamaria MD Highest Readmission Risk Score: 24 The 30 day readmissions risk score is derived from an internally validated risk model which evaluates patient level characteristics, utilization history, medication orders and lab results up until the day of discharge. Patients with a score of 39 or above are considered highest risk for readmission. Specific patient level drivers will be listed at the bottom of the summary. 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 HOSPITAL COURSE: Emelia Johnson is a 74 year old male with past medical history of neurogenic bladder/chronic Maddox catheter COPD, hypertension, CKD stage III, prior stroke, diabetes mellitus type 2, chronic left leg lymphedema, history of GI bleed, PVD, history of recurrent UTIs, history of rectal cancer SP APR, carotid artery stenosis SP right-sided carotid endarterectomy, history of aortofemoral bypass, brought to the ED from home for increased agitation and concern for UTI. In ED he was afebrile, pulse 110, RR 20, BP 151/74, 95% on room air. Sodium 140, potassium 3.4, bicarb 25, BUN 12, creatinine 1.51. LFTs are normal range. Pro BNP 2632. Lactate 1.8. CBC unremarkable UA turbid, positive leukocyte esterase, WBC and bacteria. Chest x-ray basilar atelectasis. Brain CT negative for acute intracranial process. CT abdomen pelvis, no acute inflammatory or other acute intra-abdominal finding. Preexistent abdominal perineal resection and left lower quadrant and colostomy. Aortoiliac bypass graft, absent internal iliac arteries. Chronic left common iliac venous occlusion and secondary severe left lower extremity chronic venous congestion. 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 Left profundofemoral branch stent new compared to 07/03/2024. Chronic bilateral SFA occlusion. Small nonobstructing right renal calculi. Resolved pleural effusion compared to 07/03/2024. Numerous small gallbladder stones. Left lower extremity duplex, DVT cannot be excluded entirely. In ED he received 1 L normal saline bolus, IV Rocephin. Patient admitted to floor for acute toxic metabolic encephalopathy, for suspected UTI. Acute metabolic encephalopathy subsequent hospital delirium UTI ruled out: Patient has neurogenic bladder and has chronic Maddox catheter. Maddox catheter was being changed when he became agitated possible etiology of agitation. UA abnormal, cultures with mixed microbiota Patient received IV ceftriaxone x 3 days, stopped. Blood cultures no growth. Bedtime Seroquel for delirium. History of recent GI bleed, EGD shows severe erosive esophagitis Patient is on PPI and Eliquis has been stopped. Chronic left leg swelling : Ultrasound in the past has been nondiagnostic for DVT CT showed chronic left common iliac venous occlusion and secondary left lower extremity chronic venous congestion, also noted more thrombosed 15 mm eccentric saccular aneurysm upper abdominal. Vascular surgery input reviewed, chronic occlusion of left iliac vein, no evidence of DVT, chronic swelling related to chronic venous occlusion. Small thrombosed saccular aneurysm, no intervention needed. Anticoagulation recommended due to history of embolic stroke. DC heparin drip History of peripheral vascular disease : patient also underwent arteriogram with vascular surgery with angioplasty and stent placement in left profundofemoral artery in past. ? History of DVT-Eliquis was stopped recently due to GI bleed, patient will need GI follow-up. History of embolic CVA-continue with aspirin and statin. Off Eliquis due to GI bleed history Patient seen by PT, OT, SNF placement recommended. Discharge planning discussed with daughter OPERATIONS/PROCEDURE DURING THIS HOSPITALIZATION: * No surgery found * None CT Scan CONSULTS DURING HOSPITALIZATION: Treatment Team: Attending Provider: Denita Shepard MD Consulting: Connie Leon DO PATIENT CONDITION AT DISCHARGE: Stable DISCHARGE DISPOSITION: Half-Way Facility Discharge Physical Exam: VITAL SIGNS: BP 119/56 Pulse 64 Temp 36.3 ?C (97.4 ?F) (Temporal Artery) Resp 18 Ht 170.2 cm (5' 7) Wt 81.7 kg (180 lb 1.9 oz) SpO2 95% BMI 28.21 kg/m? Elderly male, chronically ill-appearing CV RRR Lungs, poor inspiratory effort Abdomen soft. Colostomy Maddox catheter Left leg chronic lymphedema WOUND/SURGICAL SITE CARE: None SUPPLIES OR EQUIPMENT: None DIET: Regular ACTIVITY AND EXERCISE: Resume pre-hospital activity FOLLOW UP APPOINTMENTS: Future Appointments Date Time Provider Department Center 11/24/2024 11:20 AM Jenae Santamaria MD [facility] [address] 12/12/2024 10:00 AM Yudy Benoit [place] ALLERGIES Allergen Reactions Lipitor [Atorvastat* Other: See Comments body aches DISCHARGE MEDICATION: Medication List CONTINUE taking these medications albuterol HFA 90 mcg/actuation inhaler Commonly known as: PROVENTIL HFA Inhale 1-2 Puffs as instructed four times a day as needed for wheezing/shortness of breath. amLODIPine 5 mg tablet Commonly known as: NORVASC TAKE 1 TABLET BY MOUTH EVERY DAY Blood Pressure Test Kit-[facility] Commonly known as: NextDocs BP MONITOR 1 Each two times a day. ergocalciferol (vitamin D2) 50,000 unit capsule Commonly known as: DRISDOL TAKE 1 CAPSULE BY MOUTH ONE TIME A WEEK. Fenofibrate 160 mg tablet Commonly known as: LOFIBRA Take 1 tablet by mouth once daily. finasteride 5 mg tablet Commonly known as: PROSCAR Take 1 tablet by mouth once daily. fluticasone 50 mcg/actuation nasal spray Commonly known as: FLONASE SPRAY 1 SPRAY INTO EACH NOSTRIL AT BEDTIME FREESTYLE HEMA 14 DAY SENSOR Kit Generic drug: flash glucose sensor 1 Each four times daily. icosapent ethyl 1 gram capsule Commonly known as: VASCEPA Take 2 capsules by mouth two times a day. levothyroxine 175 mcg tablet Commonly known as: SYNTHROID Take 1 tablet by mouth daily before breakfast. loratadine 10 mg tablet Commonly known as: CLARITIN TAKE 1 TABLET BY MOUTH EVERY DAY pantoprazole DR 40 mg tablet Commonly known as: PROTONIX Take 1 tablet by mouth two times a day. rosuvastatin 10 mg tablet Commonly known as: CRESTOR Take 1 tablet by mouth daily at bedtime. TRADJENTA 5 mg Tab Generic drug: linaGLIPtin Take 1 tablet by mouth once daily. TRELEGY ELLIPTA 100-62.5-25 mcg inhalation powder Generic drug: chirmbmjkun-nioijdkwx-uxwjpepj Inhale 1 puff as instructed once daily. STOP taking these medications ELIQUIS 5 mg tab(s) Generic drug: apixaban ASK your doctor about these medications aspirin, enteric coated 81 mg EC tablet Commonly known as: ASPIRIN, ENTERIC COATED Take 1 tablet by mouth once daily. ferrous sulfate 325 mg (65 mg iron) tablet Take 1 tablet by mouth every other day. The patient's risk for 30-day readmission is determined using the following contributing factors: Predictive Model Details 22% (Moderate) Factor Value Calculated 10/30/2024 05:21 13% diagnosis count 36 [facility] READMISSION RISK Model 13% Zip Code [address] -10% John Scale 10 10% Hospital Unit [address] -9% Admissions (365d) 1 8% Facility [facility] 8% Malnutrition 1 -8% ED visits (365d) 0 -7% ED Encounter 0 -5% Sodium (Avg) 140 Plan of care discussed with Provider, RN, Patient I have performed the [id number] and relevant services for a total of >30 minutes. SIGNATURE: Denita Shepard MD, MD DATE: October 30, 2024 TIME: 12:38 PM CASE MANAGEM Observed: 10/30/2024 12:06 PM Status: COMPLETED Source: [facility] HNO ID: [id number] Author: DASHAWN GARCIA RN Service: Care Management Author Type: Registered Nurse Type: Care Mgt Progress Note Filed: 10/30/2024 12:07 Note Text: CARE MANAGEMENT PROGRESS NOTE SERVICE DATE: 10/30/2024 SERVICE TIME: 12:07 PM LOS: 3 days IMM Follow Up Copy Given: Yes Copy given to:: Patient Field Court Researcher Field Court Researcher Name/Relationship: Elidia Cabral (JEANNA) Method: By Phone CM confirmed with MD plan for DC today [facility] SIGNATURE: Dashawn Garcia RN PATIENT NAME: Emelia Johnson DATE: October 30, 2024 TIME: 12:06 PM CBC PNL BLD AUTO Collected: 10/30/2024 4:42 AM Statu s: F Source: [facility] Order Comment: Specimen Type : BLOOD SPECIMEN Ordering Facility: [facility] Address: [address] [place] [address] TYPE CODE TESTS RESULT OUT OF RANGE REFERENCE UNITS LAB 6690-2(LOINC) WBC # Bld Auto 5.49 3.70-11.00 k/uL LAB 789-8(LOINC) RBC # Bld Auto 3.96 Low 4.20-6.00 m/uL LAB 718-7(LOINC) Hgb Bld-mCnc 10.8 Low 13.0-17.0 g/dL LAB 4544-3(LOINC) Hct VFr Bld Auto 35.6 Low 39.0-51.0 % LAB 787-2(LOINC) MCV RBC Auto 89.9 80.0-100.0 fL LAB 785-6(LOINC) MCH RBC Qn Auto 27.3 26.0-34.0 pg LAB 786-4(LOINC) MCHC RBC Auto-mCnc 30.3 Low 30.5-36.0 g/dL LAB 67190-3(LOINC) RDW RBC-Rto 16.4 High 11.5-15.0 % LAB 777-3(INC) Platelet # Bld Auto 83 Low 150-400 k/uL LAB 87803-2([facility]) PMV Bld Auto 12.8 High 9.0-12.7 fL LAB 771-6([facility]) nRBC # Bld Auto <0.01 <0.01 k/uL Performed By: #### [id number] # ### [facility] CLIA [id number] [address] [place] [address] [place] BAS METAB 2000 PNL SERPL Collected: 06/2024 4:42 AM Status: F Source: [facility] Order Comment: Specimen Type : BLOOD SPECIMEN Ordering Facility: [facility] Address: [address] [place] [address] TYPE CODE TESTS RESULT OUT OF RANGE REFERENCE UNITS LAB 2345-7([facility]) Glucose SerPl-mCnc 93 74-99 mg/dL Result Comment: The [place] [employer] (ADA) provides guidance for cutoff values for fasting glucose and random glucose. The ADA defines fasting as no caloric intake for at least 8 hours. Fasting plasma glucose results between 100 to 125 mg/dL indicate increased risk for diabetes (prediabetes). Fasting plasma glucose results greater than or equal to 126 mg/dL meet the criteria for diagnosis of diabetes. In the absence of unequivocal hyperglycemia, results should be confirmed by repeat testing. In a patient with classic symptoms of hyperglycemia or hyperglycemic crisis, random plasma glucose results greater than or equal to 200 mg/dL meet the criteria for diagnosis of diabetes. Reference: Standards of Medical Care in Diabetes 2016, [place] [employer]. Diabetes Care. 2016.39(Suppl 1). LAB 3094-0(LOINC) BUN SerPl-mCnc 10 9-24 mg/dL LAB 2160-0(LOINC) Creat SerPl-mCnc 1.47 High 0.73-1.22 mg/dL LAB 2951-2(LOINC) Sodium SerPl-sCnc 141 136-144 mmol/L LAB 2823-3(LOINC) Potassium SerPl-sCnc 4.2 3.7-5.1 mmol/L LAB 2075-0(LOINC) Chloride SerPl-sCnc 108 High 98-107 mmol/L LAB 2027-9(LOINC) CO2 SerPl-sCnc 24 22-30 mmol/L LAB 58829-3(LOINC) Anion Gap SerPl-sCnc 9 8-15 mmol/L LAB 86409-9(LOINC) Calcium SerPl-mCnc 8.7 8.5-10.2 mg/dL LAB 60233-5(LOINC) eGFRcr SerPlBld CKD-EPI 2020 50 Low >=60 mL/min/1. 73m??? Result Comment: Estimated Gl omerular Filtration Rate (eGFR) is calculated using the 2020 CKD-EPI creatinine equation. This equation utilizes serum creatinine, sex, and age as parameters. The creatinine assay has traceable calibration to isotope dilution-mass spectrometry. Refer to KDIGO guidelines for clinical interpretation. In patients with unstable renal function, e.g. those with acute kidney injury, the eGFR may not accurately reflect actual GFR. Performed By: #### 98908-4 # ### [facility] CLIA [id number] [address] OF [facility] PROGRESS Observed: 10/29/2024 2:48 PM Status: COMPLETED Source: [facility] HNO ID: [id number] Author: DENITA SHEPARD MD Service: Hospital Medicine Author Type: Physician Type: Progress Notes Filed: 10/29/2024 14:52 Note Text: DEPARTMENT OF HOSPITAL MEDICINE PROGRESS NOTE SERVICE DATE: 10/29/2024 SERVICE TIME: 2:48 PM Hospital Medicine/Primary Attending: Denita Shepard,* NIGHT AND WEEKEND COVERAGE: [facility] COVERAGE: Days: [phone], please page attending physician. Nights: [phone], please page [facility] Night coverage pager [phone]. Subjective INTERVAL HPI: Seen and examined. Patient was sleeping. Discussed with nurse. Patient was agitated last night and received Seroquel dose at 3 AM. Current Facility-Administered Medications Medication Dose Route Frequency NaCl 0.9% iv flush bag 20 mL INTRAVENOUS PRN docusate sodium 100 mg cap(s) (COLACE) 100 mg ORAL BID PRN acetaminophen 650 mg tab(s) (TYLENOL) 650 mg ORAL q 6 H PRN albuterol 2.5 mg /3 mL (0.083 %) 2.5 mg (PROVENTIL) 3 mL INHALATION QID PRN [Order Held by LIP] amLODIPine 5 mg tab(s) (NORVASC) 5 mg ORAL DAILY aspirin, enteric coated 81 mg tab(s) 81 mg ORAL DAILY ferrous sulfate 325 mg tab(s) 325 mg ORAL q 48 H fenofibrate 200 mg cap(s) (LOFIBRA) 200 mg ORAL DAILY finasteride 5 mg tab(s) (PROSCAR) 5 mg ORAL DAILY icosapent ethyl 2 g cap(s) (VASCEPA) 2 g ORAL BID levothyroxine (SYNTHROID) tab(s) 175 mcg 175 mcg ORAL BEFORE BREAKFAST DAILY pantoprazole DR 40 mg tab(s) (PROTONIX) 40 mg ORAL BID (0600/2100) rosuvastatin 10 mg tab(s) (CRESTOR) 10 mg ORAL AT BEDTIME budesonide 0.25 mg/2 mL 0.25 mg (PULMICORT) 0.25 mg INHALATION BID And ipratropium-albuterol 3 mL nebulizer solution (DUONEB) 3 mL INHALATION QID QUEtiapine 25 mg tab(s) (SEROquel) 25 mg ORAL AT BEDTIME Objective PHYSICAL EXAM: BP 119/54 Pulse 51 Temp (Src) 97.7 (Axillary) Resp 16 Ht 5' 7 (1.70m) Wt 180 lb 1.9 oz (81.7kg) SpO2 91% BMI 28.20 kg/(m2). O2 Therapy: Room Air Physical Exam Performed Elderly male Sleeping CV RRR Lungs poor inspiratory effort Abdomen soft, colostomy Left leg lymphedema Maddox catheter Lines, Drains, and Airways Line Duration Peripheral 10/28/24 1159 [facility] Right Forearm 22 Gauge 1 day Drain Duration Surgically Inserted Drain 10/27/24 1541 External Facility Suprapubic Right Lower Quadrant;Anterior Pelvic 1 day Reviewed lines and needs to be continued: REASONS: IV heparin DATA: Diagnostic tests reviewed for today's visit: Most recent imaging CBC, Coags, BMP, Mg, Phos Recent Labs 10/29/24 0821 10/29/24 0256 10/28/24205410/28/24 1418 10/28/24 0734 10/27/24 2338 10/27/24 1609 10/27/24 1609 WBC -- 6.21 -- -- 5.19 5.59 -- 7.68 HB -- 11.9* -- -- 12.0* 13.1 -- 12.7* HCT -- 38.5* -- -- 38.3* 42.8 -- 41.4 PLT -- 84* -- -- 82* 85* -- 77* INR -- -- -- -- -- 1.1 -- -- APTT 97.3* 73.8* 91.1* < > 129.0* 32.9* < > -- NA -- 138 -- -- 141 -- -- 140 K -- 3.8 -- -- 3.2* -- -- 3.4* CHLOR -- 102 -- -- 105 -- -- 102 CO2 -- 23 -- -- 22 -- -- 25 BUN -- 10 -- -- 11 -- -- 12 CREAT -- 1.37* -- -- 1.41* -- -- 1.51* GLUC -- 89 -- -- 80 -- -- 91 CA -- 8.9 -- -- 8.8 -- -- 9.0 MG -- -- -- -- -- 1.7 -- 1.8 P -- -- -- -- -- 3.0 -- -- < > = values in this interval not displayed. 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 ([facility]) BPH (benign prostatic hyperplasia) CKD (chronic kidney disease) stage 3, GFR 30-59 ml/min ([facility]) 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der, with long-term current use of insulin ([facility]) History of right-sided carotid endarterectomy History of CVA (cerebrovascular accident) 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[facility]) HOSPITAL COURSE: Emelia Johnson is a 74 year old male with past medical history of neurogenic bladder/chronic Maddox catheter COPD, hypertension, CKD stage III, prior stroke, diabetes mellitus type 2, chronic left leg lymphedema, history of GI bleed, PVD, history of recurrent UTIs, history of rectal cancer SP APR, carotid artery stenosis SP right-sided carotid endarterectomy, history of aortofemoral bypass, brought to the ED from home for increased agitation and concern for UTI. In ED he was afebrile, pulse 110, RR 20, BP 151/74, 95% on room air. Sodium 140, potassium 3.4, bicarb 25, BUN 12, creatinine 1.51. LFTs are normal range. Pro BNP 2632. Lactate 1.8. CBC unremarkable UA turbid, positive leukocyte esterase, WBC and bacteria. Chest x-ray basilar atelectasis. Brain CT negative for acute intracranial process. CT abdomen pelvis, no acute inflammatory or other acute intra-abdominal finding. Preexistent abdominal perineal resection and left lower quadrant and colostomy. Aortoiliac bypass graft, absent internal iliac arteries. Chronic left common iliac venous occlusion and secondary severe left lower extremity chronic venous congestion. 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 Left profundofemoral branch stent new compared to 07/03/2024. Chronic bilateral SFA occlusion. Small nonobstructing right renal calculi. Resolved pleural effusion compared to 07/03/2024. Numerous small gallbladder stones. Left lower extremity duplex, DVT cannot be excluded entirely. In ED he received 1 L normal saline bolus, IV Rocephin. Patient admitted to floor for acute toxic metabolic encephalopathy, complicated UTI. Assessment and plan Acute toxic metabolic encephalopathy/hospital delirium UTI ruled out: Patient has neurogenic bladder and has chronic Maddox catheter. Maddox catheter was being changed when he became agitated. UA abnormal, cultures with mixed microbiota DC IV ceftriaxone Blood cultures no growth Bedtime Seroquel History of rectal cancer status post chemotherapy and APR with permanent colostomy. Patient follows up with oncology outpatient. CKD stage III-continue to monitor avoid nephrotoxins. History of recent GI bleed, EGD shows severe erosive esophagitis Patient is on PPI and Eliquis was stopped. Chronic left leg swelling : Ultrasound in the past has been nondiagnostic for DVT CT done today shows chronic left common iliac venous occlusion and secondary left lower extremity chronic venous congestion, also noted more thrombosed 15 mm eccentric saccular aneurysm upper abdominal. Vascular surgery input reviewed, chronic occlusion of left iliac vein, no evidence of DVT, chronic swelling related to chronic venous occlusion. Small thrombosed saccular aneurysm, no intervention needed. Anticoagulation recommended due to history of embolic stroke. DC heparin drip History of peripheral vascular disease : patient also underwent arteriogram with vascular surgery with angioplasty and stent placement in left profundofemoral artery. ? History of DVT-Eliquis was stopped recently due to GI bleed, patient has not followed up with GI regarding restarting the medication. Neurogenic bladder-patient follows up with urology outpatient. Continuing with Maddox catheter. DM type II-hold oral hypoglycemic Continue sliding scale. History of CVA-continue with aspirin and statin Hypokalemia, replaced Wound 10/28/24 0028 Pressure Injury Coccyx Posterior;Mid (Active) Properties Placement Date 10/28/24 Placement Time 002 Location Coccyx Present on Original Admission Yes Primary Wound Type Pressure Injury If Pressure Injury, is it Device Related? If Yes, Add Device Type in Comment Box No Wound Location Orientation Posterior;Mid Wound Description (Comments) red skin, blanches Assessments 10/28/2024 7:40 PM IF PATIENT HAS A PRESSURE INJURY: WHEN WAS IT ACQUIRED? (Document one time during this admission) Present on Admission during this Encounter Medication and Non-Pharmacologic VTE Prophylaxis/Anticoagulants Anticoagulant AND Antiplatelet Medications (From admission, onward) Start Dose Route Frequency Last Action Ordered Stop 10/27/24 2330 aspirin, enteric coated 81 mg tab(s) 81 mg PO DAILY Given, 10/28 90110/27/24 2322 -- 10/27/24 2153 activity - mobilize patient ([place], [place]) VTE Prophylaxis: Anticoagulated Disposition: To be determined Plan of care discussed with Provider, RN, Patient Plan communicated to: Patient SIGNATURE: Denita Shepard MD, MD PATIENT NAME: Emelia Johnson DATE: October 29, 2024 TIME: 2:52 PM PLAN OF CARE Observed: 10/29/2024 1:03 PM Status: COMPLETED Source: [facility] ID: [id number] Author: JADEN VANESSA MD Service: Vascular Surgery Author Type: Physician Type: Plan of Care Filed: 10/29/2024 13:05 Note Text: Vascular Surgery Plan of Care Imaging reviewed - chronic occlusion of L iliac vein, no evidence of DVT on recent US. Chronic swelling related to chronic venous occlusion. Small thrombosed 15mm saccular aneurysm - no intervention. Recommend AC due to history of embolic stroke, on hep gtt. No vascular surgery intervention needed. Full consult note to follow. - Jaden Vanessa MD PTT, ANTICOAGULANT THERAPY Collected: 0 10/29/2024 8:21 AM Status: F Source: [facility] Order Comment: Specimen Type : BLOOD SPECIMEN Ordering Facility: [facility] Address: [address] [place] [address] TYPE CODE TESTS RESULT OUT OF RANGE REFERENCE UNITS LAB 03120-4(LOINC) aPTT PPP 97.3 High 23.0-32.4 sec Performed By: #### PTTAC ### # [facility] CLIA [id number] [address] CBC PNL BLD AUTO Collected: 10/29/2024 2:56 AM Statu s: F Source: [facility] Order Comment: Specimen Type : BLOOD SPECIMEN Ordering Facility: [facility] Address: [address] [place], [place] [id number] TYPE CODE TESTS RESULT OUT OF RANGE REFERENCE UNITS LAB 6690-2(LOINC) WBC # Bld Auto 6.21 3.70-11.00 k/uL LAB 789-8(LOINC) RBC # Bld Auto 4.34 4.20-6.00 m/uL LAB 718-7(LOINC) Hgb Bld-mCnc 11.9 Low 13.0-17.0 g/dL LAB 4544-3(LOINC) Hct VFr Bld Auto 38.5 Low 39.0-51.0 % LAB 787-2(LOINC) MCV RBC Auto 88.7 80.0-100.0 fL LAB 785-6(LOINC) MCH RBC Qn Auto 27.4 26.0-34.0 pg LAB 786-4(LOINC) MCHC RBC Auto-mCnc 30.9 30.5-36.0 g/dL LAB 85512-2(LOINC) RDW RBC-Rto 16.1 High 11.5-15.0 % LAB 777-3(LOINC) Platelet # Bld Auto 84 Low 150-400 k/uL LAB 60516-7(LOINC) PMV Bld Auto 12.2 9.0-12.7 fL LAB 771-6(LOINC) nRBC # Bld Auto <0.01 <0.01 k/uL Performed By: #### 13690-2 # ### [facility] CLIA [id number] [address] PTT, ANTICOAGULANT THERAPY Collected: 0 10/29/2024 2:56 AM Status: F Source: [facility] Order Comment: Specimen Type : BLOOD SPECIMEN Ordering Facility: [facility] Address: [address] [place] [address] TYPE CODE TESTS RESULT OUT OF RANGE REFERENCE UNITS LAB 24319-7(LOINC) aPTT PPP 73.8 High 23.0-32.4 sec Performed By: #### PTTAC ### # [facility] CLIA [id number] [address] BAS METAB 2000 PNL SERPL Collected: 05/2024 2:56 AM Status: F Source: [facility] Order Comment: Specimen Type : BLOOD SPECIMEN Ordering Facility: [facility] Address: [address] [place] [address] TYPE CODE TESTS RESULT OUT OF RANGE REFERENCE UNITS LAB 2345-7(LOINC) Glucose SerPl-mCnc 89 74-99 mg/dL Result Comment: The [place] [employer] (ADA) provides guidance for cutoff values for fasting glucose and random glucose. The ADA defines fasting as no caloric intake for at least 8 hours. Fasting plasma glucose results between 100 to 125 mg/dL indicate increased risk for diabetes (prediabetes). Fasting plasma glucose results greater than or equal to 126 mg/dL meet the criteria for diagnosis of diabetes. In the absence of unequivocal hyperglycemia, results should be confirmed by repeat testing. In a patient with classic symptoms of hyperglycemia or hyperglycemic crisis, random plasma glucose results greater than or equal to 200 mg/dL meet the criteria for diagnosis of diabetes. Reference: Standards of Medical Care in Diabetes 2016, [place] [employer]. Diabetes Care. 2016.39(Suppl 1). LAB 3094-0(LOINC) BUN SerPl-mCnc 10 9-24 mg/dL LAB 2160-0(LOINC) Creat SerPl-mCnc 1.37 High 0.73-1.22 mg/dL LAB 2951-2(LOINC) Sodium SerPl-sCnc 138 136-144 mmol/L LAB 2823-3(LOINC) Potassium SerPl-sCnc 3.8 3.7-5.1 mmol/L LAB 2075-0(LOINC) Chloride SerPl-sCnc 102 98-107 mmol/L LAB 2028-9(LOINC) CO2 SerPl-sCnc 23 22-30 mmol/L LAB 42916-2(LOINC) Anion Gap SerPl-sCnc 13 8-15 mmol/L LAB 17531-2(LOINC) Calcium SerPl-mCnc 8.9 8.5-10.2 mg/dL LAB 87327-6(LOINC) eGFRcr SerPlBld CKD-EPI 2020 54 Low >=60 mL/min/1. 73m??? Result Comment: Estimated Gl omerular Filtration Rate (eGFR) is calculated using the 2020 CKD-EPI creatinine equation. This equation utilizes serum creatinine, sex, and age as parameters. The creatinine assay has traceable calibration to isotope dilution-mass spectrometry. Refer to KDIGO guidelines for clinical interpretation. In patients with unstable renal function, e.g. those with acute kidney injury, the eGFR may not accurately reflect actual GFR. Performed By: #### 80503-1 # ### [facility] CLIA [id number] [address] PTT, ANTICOAGULANT THERAPY Collected: 0 10/28/2024 8:55 PM Status: F Source: [facility] Order Comment: Specimen Type : BLOOD SPECIMEN Ordering Facility: [facility] Address: [address] [place] [address] TYPE CODE TESTS RESULT OUT OF RANGE REFERENCE UNITS LAB 43337-5([facility]) aPTT PPP 91.1 High 23.0-32.4 sec Performed By: #### PTTAC ### # [facility] CLIA [id number] [address] STATES [facility] PROGRESS Observed: 10/28/2024 3:38 PM Status: COMPLETED Source: [facility] HNO ID: [id number] Author: DENITA SHEPARD MD Service: Hospital Medicine Author Type: Physician Type: Progress Notes Filed: 10/28/2024 15:57 Note Text: DEPARTMENT OF HOSPITAL MEDICINE PROGRESS NOTE SERVICE DATE: 10/28/2024 SERVICE TIME: 3:38 PM Hospital Medicine/Primary Attending: Denita Shepard,* NIGHT AND WEEKEND COVERAGE: [facility]: Days: [phone], please page attending physician. Nights: [phone], please page [facility] Night coverage pager [phone]. Subjective INTERVAL HPI: Seen and examined. Patient was seen by therapy. States he is feeling better. He denies nausea, vomiting, abdominal pain or chest pain. Current Facility-Administered Medications Medication Dose Route Frequency iv contrast (radiology procedure) INTRAVENOUS DIRECTED PRN NaCl 0.9% iv flush bag 20 mL INTRAVENOUS PRN docusate sodium 100 mg cap(s) (COLACE) 100 mg ORAL BID PRN acetaminophen 650 mg tab(s) (TYLENOL) 650 mg ORAL q 6 H PRN albuterol 2.5 mg /3 mL (0.083 %) 2.5 mg (PROVENTIL) 3 mL INHALATION QID PRN amLODIPine 5 mg tab(s) (NORVASC) 5 mg ORAL DAILY aspirin, enteric coated 81 mg tab(s) 81 mg ORAL DAILY ferrous sulfate 325 mg tab(s) 325 mg ORAL q 48 H fenofibrate 200 mg cap(s) (LOFIBRA) 200 mg ORAL DAILY finasteride 5 mg tab(s) (PROSCAR) 5 mg ORAL DAILY icosapent ethyl 2 g cap(s) (VASCEPA) 2 g ORAL BID levothyroxine (SYNTHROID) tab(s) 175 mcg 175 mcg ORAL BEFORE BREAKFAST DAILY pantoprazole DR 40 mg tab(s) (PROTONIX) 40 mg ORAL BID (0600/2100) rosuvastatin 10 mg tab(s) (CRESTOR) 10 mg ORAL AT BEDTIME heparin iv infusion 25,000 units in NaCl 0.45% 250 mL STANDARD NOMOGRAM 0-3,000 Units/hr INTRAVENOUS CONTINUOUS And heparin RATE CHANGE bolus 1,000-10,000 Units for subtherapeutic PTTAC results 1,000-10,000 Units INTRAVENOUS PRN budesonide 0.25 mg/2 mL 0.25 mg (PULMICORT) 0.25 mg INHALATION BID And ipratropium-albuterol 3 mL nebulizer solution (DUONEB) 3 mL INHALATION QID Objective PHYSICAL EXAM: BP 119/64 Pulse 70 Temp (Src) 98 (Axillary) Resp 18 Ht 5' 7 (1.70m) Wt 180 lb 1.9 oz (81.7kg) SpO2 94% BMI 28.20 kg/(m2). O2 Therapy: Room Air Physical Exam Performed Elderly male Alert CV RRR Lungs clear upper [place], poor inspiratory effort Abdomen soft, colostomy Left leg lymphedema Maddox catheter Lines, Drains, and Airways Line Duration Peripheral 10/28/24 1159 [facility] Right Forearm 22 Gauge <1 day Drain Duration Surgically Inserted Drain 10/27/24 1541 External Facility Suprapubic Right Pelvic <1 day Reviewed lines and needs to be continued: REASONS: IV heparin DATA: Diagnostic tests reviewed for today's visit: Most recent imaging CBC, Coags, BMP, Mg, Phos Recent Labs 10/28/24 1418 10/28/24 0734 10/27/24 2338 10/27/24 1609 WBC -- 5.19 5.59 7.68 HB -- 12.0* 13.1 12.7* HCT -- 38.3* 42.8 41.4 PLT -- 82* 85* 77* INR -- -- 1.1 -- APTT 64.1* 129.0* 32.9* -- NA -- 141 -- 140 K -- 3.2* -- 3.4* CHLOR -- 105 -- 102 CO2 -- 22 -- 25 BUN -- 11 -- 12 CREAT -- 1.41* -- 1.51* GLUC -- 80 -- 91 CA -- 8.8 -- 9.0 MG -- -- 1.7 1.8 P -- -- 3.0 -- 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 (HCC) BPH (benign prostatic hyperplasia) CKD (chronic kidney disease) stage 3, GFR 30-59 ml/min ([facility]) 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der, with long-term current use of insulin ([facility]) History of right-sided carotid endarterectomy History of CVA (cerebrovascular accident) 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[facility]) HOSPITAL COURSE: Emelia Johnson is a 74 year old male with past medical history of neurogenic bladder/chronic Maddox catheter COPD, hypertension, CKD stage III, prior stroke, diabetes mellitus type 2, chronic left leg lymphedema, history of GI bleed, PVD, history of recurrent UTIs, history of rectal cancer SP APR, carotid artery stenosis SP right-sided carotid endarterectomy, history of aortofemoral bypass, brought to the ED from home for increased agitation and concern for UTI. In ED he was afebrile, pulse 110, RR 20, BP 151/74, 95% on room air. Sodium 140, potassium 3.4, bicarb 25, BUN 12, creatinine 1.51. LFTs are normal range. Pro BNP 2632. Lactate 1.8. CBC unremarkable UA turbid, positive leukocyte esterase, WBC and bacteria. Chest x-ray basilar atelectasis. Brain CT negative for acute intracranial process. CT abdomen pelvis, no acute inflammatory or other acute intra-abdominal finding. Preexistent abdominal perineal resection and left lower quadrant and colostomy. Aortoiliac bypass graft, absent internal iliac arteries. Chronic left common iliac venous occlusion and secondary severe left lower extremity chronic venous congestion. 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 Left profundofemoral branch stent new compared to 07/03/2024. Chronic bilateral SFA occlusion. Small nonobstructing right renal calculi. Resolved pleural effusion compared to 07/03/2024. Numerous small gallbladder stones. Left lower extremity duplex, DVT cannot be excluded entirely. In ED he received 1 L normal saline bolus, IV Rocephin. Patient admitted to floor for acute toxic metabolic encephalopathy, complicated UTI. Assessment and plan Acute toxic metabolic encephalopathy complicated UTI : Patient has neurogenic bladder and has chronic Maddox catheter. Maddox catheter was being changed when he became agitated. UA abnormal Continue IV ceftriaxone Urine cultures and blood cultures pending History of rectal cancer status post chemotherapy and APR with permanent colostomy. Patient follows up with oncology outpatient. CKD stage III-continue to monitor avoid nephrotoxins. History of recent GI bleed, EGD shows severe erosive esophagitis Patient is on PPI and Eliquis was stopped. Chronic left leg swelling : Ultrasound in the past has been nondiagnostic for DVT CT done today shows chronic left common iliac venous occlusion and secondary left lower extremity chronic venous congestion, also noted more thrombosed 15 mm eccentric saccular aneurysm upper abdominal. Consult vascular surgery and GI in regards to restarting Eliquis. In the meantime continue heparin drip History of peripheral vascular disease : patient also underwent arteriogram with vascular surgery with angioplasty and stent placement in left profundofemoral artery. ? History of DVT-Eliquis was stopped recently due to GI bleed, patient has not followed up with GI regarding restarting the medication. Neurogenic bladder-patient follows up with urology outpatient. Continuing with Maddox catheter. DM type II-hold oral hypoglycemic Start patient on sliding scale. History of CVA-continue with aspirin and statin Hypokalemia, replace Wound 10/28/24 0028 Pressure Injury Coccyx Posterior;Mid (Active) Properties Placement Date 10/28/24 Placement Time 0028 Location Coccyx Present on Original Admission Yes Primary Wound Type Pressure Injury If Pressure Injury, is it Device Related? If Yes, Add Device Type in Comment Box No Wound Location Orientation Posterior;Mid Wound Description (Comments) red skin, blanches Assessments 10/27/2024 11:50 PM IF PATIENT HAS A PRESSURE INJURY: WHEN WAS IT ACQUIRED? (Document one time during this admission) Present on Admission during this Encounter Medication and Non-Pharmacologic VTE Prophylaxis/Anticoagulants Anticoagulant AND Antiplatelet Medications (From admission, onward) Start Dose Route Frequency Last Action Ordered Stop 10/27/24 2330 aspirin, enteric coated 81 mg tab(s) 81 mg PO DAILY Given, 10/28 0902 10/27/24 2322 -- 10/27/24 2300 heparin iv infusion 25,000 units in NaCl 0.45% 250 mL STANDARD NOMOGRAM (Heparin Infusion + Bolus for Subtherapeutic PTTAC) 0-30 mL/hr Placed in And Linked Group 0-3,000 Units/hr IV CONTINUOUS Rate/Dose Calculated - Heparin, 10/28 1449 10/27/24 2244 -- 10/27/24 2153 activity - mobilize patient (nh,de) VTE Prophylaxis: Anticoagulated Disposition: To be determined Plan of care discussed with Provider, RN, Patient Plan communicated to: Patient SIGNATURE: Denita Shepard MD, MD PATIENT NAME: Emelia Johnson DATE: October 28, 2024 TIME: 3:38 PM PTT, ANTICOAGULANT THERAPY Collected: 0 10/28/2024 2:18 PM Status: F Source: [facility] Order Comment: Specimen Type : BLOOD SPECIMEN Ordering Facility: [facility] Address: [address] [place], [place] [id number] TYPE CODE TESTS RESULT OUT OF RANGE REFERENCE UNITS LAB 71220-0(LOINC) aPTT PPP 64.1 High 23.0-32.4 sec Performed By: #### PTTAC ### # [facility] CLIA [id number] [address] [place] [address] [facility] CASE MANAGEM Observed: 10/28/2024 1:53 PM Status: COMPLETED Source: [facility] HNO ID: [id number] Author: DENITA SHEPARD MD Service: Care Management Author Type: Physician Type: Care Mgt Progress Note Filed: 10/28/2024 14:20 Note Text: CARE MANAGEMENT PROGRESS NOTE SERVICE DATE: 10/28/2024 SERVICE TIME: 1:53 PM LOS: 1 day Physician Certification of Less Than 30 Days Skilled Needs Earliest Possible Discharge Date: 10/28/24 To the best of my knowledge, all information provided about the individual is a true and an accurate reflection of Emelia Johnson's needs. I certify that following the inpatient level of care, a post-acute nursing facility stay is required for less than 30 days related to the condition(s) for which the patient was treated during the inpatient level of care: Principal Problem: Acute metabolic encephalopathy Active Problems: Unspecified hypothyroidism H/O aorto-femoral bypass Embolic stroke involving right carotid artery ([facility]) BPH (benign prostatic hyperplasia) CKD (chronic kidney disease) stage 3, GFR 30-59 ml/min ([facility]) 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der, with long-term current use of insulin ([facility]) History of right-sided carotid endarterectomy History of CVA (cerebrovascular accident) 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[facility]) Resolved Problems: * No resolved hospital problems. * Attending Physician: Denita Shepard,* SIGNATURE: Myriam Cole RN PATIENT NAME: Emelia Johnson DATE: October 28, 2024 TIME: 1:53 PM THERAPY NT Observed: 10/28/2024 12:12 PM Status: COMPLETED Source: [facility] HNO ID: [id number] Author: KAREN NEVILLE PT Service: Physical Therapy Author Type: Physical Therapist Type: Therapy (PT/OT/Speech/Resp) Filed: 10/28/2024 14:01 Note Text: Summary: PT evaluation Physical Therapy Evaluation Summary SERVICE DATE: 10/28/2024 SERVICE TIME: 1212 to 1300 ROOM: [id number] PT 6 Clicks Score: 9 DISCHARGE RECOMMENDATIONS Subacute/SNF Recommended Discharge Disposition Comments: Pt is currently performing functional mobility below PLOF and would benefit from continued skilled PT to reduce risk of falls and rehospitalization. Recommended Discharge Disposition Due to: Functional deficits requiring ongoing therapy service prior to discharge home., Anticipated community discharge, Balance deficits, Functional status decline, Requires multiple therapy disciplines Anticipated Discharge Needs: Physical Assist at Home, Supervision at Home Physical Assist at Home for: Transfers, Finances, Ambulation, Cleaning, Laundry, Meals, Medication Management, Safety, Self Care, Shopping, Transportation, Wheelchair Mobility Supervision at Home due to: Decreased safety awareness, Impaired cognition Recommended Discharge Equipment: No equipment needs anticipated ASSESSMENT Response to Therapy Interventions: Cognitive Deficits, Low Activity Tolerance, Needs Frequent Redirection or Reinstruction, Requires Additional Time to Complete Activities, Requires Encouragement to Complete Activities, Slow Progression with Functional Activities/Skills Patient presents with decreased strength, decreased balance/fall risk and impaired functional mobility. Patient would benefit from skilled PT in acute setting to increase strength and progress safe functional mobility. PRECAUTIONS Bed/Chair Alarm, Fall Risk, Lines/Tubes/Drains CURRENT HOSPITAL COURSE Patient presents with confusion, admitted for acute metabolic encephalopathy, complicated UTI Relevant Past Medical History: abdominal aneurysm, CAD, COPD, CKD, colon CA, depression, diabetes, depression, dyslipidemia, neurogenic bladder, obesity, stroke with residual L-side weakness, TAAA, type II DM, hypothyroidism, vitamin D deficiency, colostomy HOME LIVING Patient Lives With: Family, Other: See Comment Comments: 2 sons, DIL, there are about 50 grandchildren everywhere Assistance Available: 24-Hour Entry To Home: Ramp Number Of Stairs To Bed/Bath: 0 Tub/Shower Type: sponge bathes Laundry: family completes Equipment Owned: Hospital Bed, Walker- Wheeled PRIOR FUNCTIONAL LEVEL Required Assistance Assistance Required With: Shopping, Transportation, Medication Management, Meals, Laundry, Cleaning, Self Care Patient is a questionable historian, reports son assists with sponge bathing and ostomy care, pt ambulates with a walker, denies falls, sleeps on a hospital bed, family completes IADLs SUBJECTIVE patient agreeable to PT and cleared by RN. confused throughout. tearful at times. confused with conversation THERAPY DIAGNOSIS Reduced mobility-other TREATMENT INTERVENTIONS Evaluation, Therapeutic Activity (19127) Timed Code Treatment (minutes): 23 Skilled Treatment Time (minutes): 38 $ Evaluation-Low (87101) Billed Units: 1 unit Therapeutic Activity (77948) Treatment Minutes: 23 $ Therapeutic Activity (26804) Billed Units: 2 units Range of Motion: WFL Except, ROM Limitation Comments ROM Limitation Comments: left ankle AA/AROM ankle DF -5 to 10 and knee 20-70 deg Strength: WFL Except, Strength Limitation Comments Strength Limitation Comments: Grossly per clinical judgement - R LE 3+ to 4- and left LE 2-3/5 TRAINING AND EDUCATION PROVIDED Assistive Device Use, Bed Mobility, Benefits of In-Hospital Mobility, Discharge Planning, Energy Conservation, Falls Prevention, Positioning, Pre-gait Activities, Role of Physical Therapy, Sitting Balance, Standing Balance, Transfers THERAPEUTIC SKILLS USED Activity Dosing, Cues for Sequencing/Proper Technique for Activity, Cuing Tactile, Cuing Verbal, Movement Facilitation, Muscle Activation Facilitation, Physical Assist, Postural Alignment Correction, Teach-Back for Education FUNCTIONAL STATUS Bed Mobility Supine To Sit: Moderate Assistance, Additional Information A for left LE and trunk Sit to Supine: Maximal Assistance, Additional Information for LE and trunk Scooting: Maximal Assistance, Additional Information in sitting and supine up in bed Transfers Sit To Stand: Moderate Assistance, Additional Information A for boost/stability. cues for hand placement and weight shift. retropulsio Stand To Sit: Maximal Assistance, Additional Information doesnt follow commands for hand placement and sits suddenly to sitting and then lying. A for controlled descent Bed to Chair Gait Additional Information not safe for progression due to decreased cognition, level of assist and balance in standing/retropulsion Stairs GOALS Patient will demonstrate progress to optimize functional mobility, maximize activity tolerance and endurance to maximize function upon discharge. Transfer Supine to/from Sit with: Minimal Assistance Transfer Sit to/from Stand with: Minimal Assistance Ambulate with: Moderate Assistance Distance: 10-20 feet Device: Wheeled Walker Transfer: safe bed to chair transfers with LRAD and moderate assist Rehab Potential: Good Good Rehab Potential Due To: Current objective clinical presentation, Good overall health status, Good support system/ coping skills, Good motivation Progress Toward Goals: Progressing as expected ACUTE CARE TREATMENT PLAN PT Frequency: 4 Times Per Week Treatment Interventions: Education, Self Care / Home Management, Energy Conservation Training, Joint Mobility, Strengthening, Functional Mobility Training, Balance Training, Neuromuscular Re-education SIGNATURE: aKren Neville PT PATIENT NAME: Emelia Johnson DATE: October 28, 2024 TIME: 1:58 PM THERAPY NT Observed: 10/28/2024 9:44 AM Status: COMPLETED Source: [facility] HNO ID: [id number] Author: JEANMARIE DOVER OT/Joseph Service: ? Author Type: Occupational Therapist Type: Therapy (PT/OT/Speech/Resp) Filed: 10/28/2024 10:22 Note Text: Summary: OT Evaluation Occupational Therapy Evaluation Summary SERVICE DATE: 10/28/2024 SERVICE TIME: 0944 to 1010 ROOM: [place] [id number] OT 6 Clicks Score: 11 DISCHARGE RECOMMENDATIONS Subacute/SNF Recommended Discharge Disposition Due to: Functional deficits requiring ongoing therapy service prior to discharge home., ADL impairment, Anticipated community discharge, Cognitive deficits new/worsened, Functional status decline Anticipated Discharge Needs: Physical Assist at Home, Supervision at Home Physical Assist at Home for: Transfers, Finances, Ambulation, Cleaning, Laundry, Meals, Medication Management, Safety, Self Care, Shopping, Transportation, Wheelchair Mobility Supervision at Home due to: Decreased safety awareness, Impaired cognition Recommended Discharge Equipment: To Be Determined ASSESSMENT Response to Therapy Interventions: Good Participation in Activities, On-Track to Achieve Discharge Goals, Cognitive Deficits Patient is functioning below baseline with ADLs and mobility/transfers, appears to be mildly confused and an unreliable historian, deom baseline L-side AROM and strength deficits, LLE swelling, impaired balance sitting EOB PRECAUTIONS Bed/Chair Alarm, Fall Risk, Lines/Tubes/Drains CURRENT HOSPITAL COURSE Patient presents with confusion, admitted for acute metabolic encephalopathy, complicated UTI Relevant Past Medical History: abdominal aneurysm, CAD, COPD, CKD, colon CA, depression, diabetes, depression, dyslipidemia, neurogenic bladder, obesity, stroke with residual L-side weakness, TAAA, type II DM, hypothyroidism, vitamin D deficiency, colostomy HOME LIVING Patient Lives With: Family, Other: See Comment Comments: 2 sons, DIL, there are about 50 grandchildren everywhere Assistance Available: 24-Hour Entry To Home: Ramp Number Of Stairs To Bed/Bath: 0 Tub/Shower Type: sponge bathes Laundry: family completes Equipment Owned: Hospital Bed, Walker- Wheeled PRIOR FUNCTIONAL LEVEL Required Assistance Assistance Required With: Shopping, Transportation, Medication Management, Meals, Laundry, Cleaning, Self Care Patient is a questionable historian, reports son assists with sponge bathing and ostomy care, pt ambulates with a walker, denies falls, sleeps on a hospital bed, family completes IADLs Baseline Cognition: Oriented to self, Oriented to place, Oriented to time SUBJECTIVE My son wants me to go to a retirement. RN cleared to work with, patient agreeable to this session COGNITION Orientation Deficits: Confused, Not oriented to Time Responsiveness: Alert, Awake Follows Commands: 2-step Commands Short Blessed Final Score: 21 (10/28/24) Patient completed the Short Blessed Test (also referred to as the Short Oujvdhxskoy-Rionyi-Exjwdkmxiwbht Test). This cognitive assessment measures the domains of: Orientation, concentration/attention and short term recall. Patient scored a 21/28 indicating Severe Impairment. Scoring guidelines are as follows: 0-8; Normal to minimal impairment 9-19; Moderate impairment 20-28; Severe impairment Please note this assessment is not used to diagnose dementia, but rather is used as a screening tool for early detection and need for further assessment/testing. Based on clinical research findings from the Memory and Aging Project, the following cut points may be considered: 0 - 4 Normal Cognition 5 - 9 Questionable Impairment (evaluate for early dementing disorder) 10 or more Impairment Consistent with Dementia (evaluate for dementing disorder) http://regionstrauma.org/blogs/sbt.pdf THERAPY DIAGNOSIS Reduced mobility-other, Decreased activities of daily living (ADL), Muscle Weakness (generalized), Signs and Symptoms Involving Cognitive Functions and Awareness TREATMENT INTERVENTIONS Evaluation, Self Longterm Management (89582) Timed Code Treatment (minutes): 11 Skilled Treatment Time (minutes): 26 TRAINING AND EDUCATION PROVIDED Activity Adaptation/Compensatory Strategies, Bed Mobility, Benefits of In-Hospital Mobility, Cognitive Skills, Command Following, Cognitive Prosthetics, Discharge Planning, Expected Functional Level, Functional Mobility Involving ADLs, Grooming Tasks, Delirium Reduction Techniques, Insight into Deficits, Lower Extremity Dressing, Memory/Attention, Orientation, Positioning, Role of Occupational Therapy, Safety/Judgment, Sitting Balance to Improve [place] with ADLs/Self-Care THERAPEUTIC SKILLS USED Activity Dosing, Cues for Sequencing/Proper Technique for Activity, Cuing Tactile, Cuing Verbal, Cuing Visual, Facilitation of Joint Range of Motion, Management of Critical Lines, Tubes and/or Drains, Muscle Activation Facilitation, Movement Facilitation, Physical Assist, Therapeutic Use of Self FUNCTIONAL STATUS Activities of Daily Living Assist Level Additional Information Feeding Set Up Grooming Moderate Assistance Bathing Upper Body Moderate Assistance Bathing Lower Body Maximal Assistance Dressing Upper Body Maximal Assistance Dressing Lower Body Total Assistance Toileting Total Assistance Mobility Assist Level Additional Information Bed Mobility Scooting: Maximal Assistance x1 to EOB, x2 assist to HOB while supine with use of bed pad and trendelenburg position Supine To Sit: Moderate Assistance, Additional Information exit to L, HOB elevated, demo impaired sitting balance EOB, mild retropulsion on L lateral leaning Sit To Supine: Moderate Assistance Sit to Stand Additional Information unable to safely progress Stand to Sit Bed to Chair Toilet/Commode Shower Functional Mobility GOALS Patient will demonstrate progress to optimize self-care activities, cognitive and/or coping to maximize function upon discharge. Rehab Potential: Fair Fair Rehab Potential Due To: Multiple co- morbidities, Memory deficits, Poor historian, Learning impairments/ poor understanding of deficits ACUTE CARE TREATMENT PLAN OT Frequency: 3 Times Per Week Treatment Interventions: Education, Self Care/Home Management, Joint Mobility, Strengthening, Functional Mobility Training, Balance Training Plan for Next Visit: Bed Mobility, Cognition Intervention, Sit to Stand Transfers, Exercise Instruction/Handout SIGNATURE: Jeanmarie Dover OT/L PATIENT NAME: Emelia Johnson DATE: October 28, 2024 TIME: 10:21 AM CASE MGT INBHASKAR BOJORQUEZ Observed: 10/28/2024 9:42 AM Status: COMPLETED Source: [facility] HNO ID: [id number] Author: MYRIAM COLE RN Service: Care Management Author Type: Registered Nurse Type: Care Mgt Initial Assessment Filed: 10/28/2024 13:52 Note Text: CARE MANAGEMENT: ASSESSMENT AND DISCHARGE PLAN SERVICE DATE: October 28, 2024 SERVICE TIME: 9:42 AM PCP: Jenae Santamaria MD Primary Contact: Extended Emergency Contact Information Primary Emergency Contact: Elidia Cabral Mobile Relation: Daughter Residential Mental Health Worker needed? No Secondary Emergency Contact: Dm Johnson Mobile Relation: Son Admission Status: Inpatient Insurance Provider: MEDICARE A AND B Discharge Planning requested by: Per Department Practice Potential Transition Plans Half-Way Facility/Intermediate Care Facility Advance Directives Current Advance Directive: Health Care Power of Safety Counselor In Chart: No House Carpenter Attempted to Assist with AD Completion: No Unable to Assist Due To:: Delirium Current Living Arrangements and Support Lives with: Family members Type of Residence: Private Residence (House) Support: Family members How do you manage to accomplish the following: Needs Assistance: Ambulation, Bathe/Shower, Dress, Going to the bathroom Dependent: Meals/Meal Prep, Medication Management, Transportation to appointments/community Current Services/Equipment Current Post-Acute Service(s): Skilled Home Care Discharge Planning Patient Goal(s): General wellness [place] Explained: [place] Given: Yes Level of Care Discussed: Half-Way Facility Are you interested in bedside delivery of your medications? No Discharge Planning Participant(s): Children Patient/Family Comments: Caregiver Assessment: Caregiver is ready, willing and able to meet the patient's needs as recommended by the inter-professional team: Yes Name of Caregiver: Daughter, Son Transport at Discharge: Transportation Arrangements: Ambulance Needs Prior to Discharge: Needs Prior to Discharge: Accepting Facility, OT/PT Evaluation Post-Acute Discharge Plan: Review of the chart and spoke with the patient's daughter Elidia. Elidia states the patient lives with her, SHELLY and Son. States the patient recently has been very difficult to care for, he does not get up and does not walk very well. Someone in the background during the conversation was yelling he cannot come home. Elidia states they would like the patient to go to [facility] at discharge- Referral placed. Elidia states the patient is active with [facility] for nursing-Referral placed. CM department will continue to follow for DC needs. 1:51 pm- [facility] able to accept. Call placed to the patients daughter Elidia, message left on her VM updating her that [facility] will have a bed available for the patient at discharge. SIGNATURE: Myriam Cole RN PATIENT NAME: Emelia Johnson DATE: October 28, 2024 TIME: 9:42 AM PTT, ANTICOAGULANT THERAPY Collected: 0 10/28/2024 7:34 AM Status: F Source: [facility] Order Comment: Specimen Type : BLOOD SPECIMEN Ordering Facility: [facility] Address: [address] [place] [address] TYPE CODE TESTS RESULT OUT OF RANGE REFERENCE UNITS LAB 76815-6(LOINC) aPTT PPP 129.0 High 23.0-32.4 sec Result Comment: Sample check ed for clot. Performed By: #### PTTAC ### # [facility] CLIA [id number] [address] [place] [address] [place] BAS METAB 1999 PNL SERPL Collected: 04/2024 7:34 AM Status: F Source: [facility] Order Comment: Specimen Type : BLOOD SPECIMEN Ordering Facility: [facility] Address: [address] [place] [address] TYPE CODE TESTS RESULT OUT OF RANGE REFERENCE UNITS LAB 2345-7(LOINC) Glucose SerPl-mCnc 80 74-99 mg/dL Result Comment: The [place] Diabetes Association (ADA) provides guidance for cutoff values for fasting glucose and random glucose. The ADA defines fasting as no caloric intake for at least 8 hours. Fasting plasma glucose results between 100 to 125 mg/dL indicate increased risk for diabetes (prediabetes). Fasting plasma glucose results greater than or equal to 126 mg/dL meet the criteria for diagnosis of diabetes. In the absence of unequivocal hyperglycemia, results should be confirmed by repeat testing. In a patient with classic symptoms of hyperglycemia or hyperglycemic crisis, random plasma glucose results greater than or equal to 200 mg/dL meet the criteria for diagnosis of diabetes. Reference: Standards of Medical Care in Diabetes 2016, [place] [employer]. Diabetes Care. 2016.39(Suppl 1). LAB 3094-0(LOINC) BUN SerPl-mCnc 11 9-24 mg/dL LAB 2160-0(LOINC) Creat SerPl-mCnc 1.41 High 0.73-1.22 mg/dL LAB 2951-2(LOINC) Sodium SerPl-sCnc 141 136-144 mmol/L LAB 2823-3(LOINC) Potassium SerPl-sCnc 3.2 Low 3.7-5.1 mmol/L LAB 2075-0(LOINC) Chloride SerPl-sCnc 105 98-107 mmol/L LAB 2028-9(LOINC) CO2 SerPl-sCnc 22 22-30 mmol/L LAB 08416-8(LOINC) Anion Gap SerPl-sCnc 14 8-15 mmol/L LAB 21141-1(LOINC) Calcium SerPl-mCnc 8.8 8.5-10.2 mg/dL LAB 13935-9(LOINC) eGFRcr SerPlBld CKD-EPI 2020 52 Low >=60 mL/min/1. 73m??? Result Comment: Estimated Gl omerular Filtration Rate (eGFR) is calculated using the 2020 CKD-EPI creatinine equation. This equation utilizes serum creatinine, sex, and age as parameters. The creatinine assay has traceable calibration to isotope dilution-mass spectrometry. Refer to KDIGO guidelines for clinical interpretation. In patients with unstable renal function, e.g. those with acute kidney injury, the eGFR may not accurately reflect actual GFR. Performed By: #### 29239-5 # ### [facility] CLIA [id number] [address] [place] [address] CBC PNL BLD AUTO Collected: 10/28/2024 7:34 AM Statu s: F Source: [facility] Order Comment: Specimen Type : BLOOD SPECIMEN Ordering Facility: [facility] Address: [address] [place] [id number] TYPE CODE TESTS RESULT OUT OF RANGE REFERENCE UNITS LAB 6690-2(LOINC) WBC # Bld Auto 5.19 3.70-11.00 k/uL LAB 789-8(LOINC) RBC # Bld Auto 4.37 4.20-6.00 m/uL LAB 718-7(LOINC) Hgb Bld-mCnc 12.0 Low 13.0-17.0 g/dL LAB 4544-3(INC) Hct VFr Bld Auto 38.3 Low 39.0-51.0 % LAB 787-2(LOINC) MCV RBC Auto 87.6 80.0-100.0 fL LAB 785-6(LOINC) MCH RBC Qn Auto 27.5 26.0-34.0 pg LAB 786-4(LOINC) MCHC RBC Auto-mCnc 31.3 30.5-36.0 g/dL LAB 37529-5(INC) RDW RBC-Rto 16.0 High 11.5-15.0 % LAB 777-3(INC) Platelet # Bld Auto 82 Low 150-400 k/uL LAB 04872-8(LOINC) PMV Bld Auto 12.6 9.0-12.7 fL LAB 771-6(INC) nRBC # Bld Auto <0.01 <0.01 k/uL Performed By: #### 64843-4 # ### [facility] CLIA [id number] [address] [place] [address] [facility] PT PNL PPP Collected: 11:38 PM Status: F Source: [facility] Order Comment: Specimen Type : BLOOD SPECIMEN Ordering Facility: [facility] Address: [address] [place] [address] TYPE CODE TESTS RESULT OUT OF RANGE REFERENCE UNITS LAB 5902-2(LOINC) Prothrombin time 12.2 9.7-13.0 sec LAB 6301-6([facility]) INR PPP 1.1 0.9-1.3 Result Comment: Vitamin K An tagonist (VKA) Therapeutic Range: INR 2 to 3 (Target INR of 2.5) Note: For patients treated with VKA drugs, such as warfarin, the [place] [employer] 2012 Guideline recommends a therapeutic INR range of 2 to 3 (target INR of 2.5). This recommendation includes high-risk patients with antiphospholipid syndrome with previous arterial or venous thromboembolism, current-generation mechanical or bioprosthetic aortic heart valve replacement. Note: Patients with mechanical aortic valve replacement and additional risk factors for thromboembolic events (atrial fibrillation, previous thromboembolism, LV dysfunction, hypercoagulable conditions) or an older generation mechanical AVR (i.e., ball in-Cage) or any mechanical MVR should have a INR therapeutic range of 2.5 to 3.5 (target INR of 3). Mehdi GH, et al. Chest 2012, 141:7S-47S Judith RA, et al. [facility] 2017, 70: 252-289 Performed By: #### 45790-5, PTTAC #### [facility] CLIA [id number] [address] STATES OF [facility] PTT, ANTICOAGULANT THERAPY Collected: 0 10/27/2024 11:38 PM Status: F Source: [facility] Order Comment: Specimen Type : BLOOD SPECIMEN Ordering Facility: [facility] Address: [address] [place] [address] TYPE CODE TESTS RESULT OUT OF RANGE REFERENCE UNITS LAB 38996-6(LOINC) aPTT PPP 32.9 High 23.0-32.4 sec Performed By: #### 72150-5, PTTAC #### [facility] CLIA [id number] [address] [place] CBC PNL BLD AUTO Collected: 11:38 PM Status: F Source: [facility] Order Comment: Specimen Type : BLOOD SPECIMEN Ordering Facility: [facility] Address: [address] [place] [address] TYPE CODE TESTS RESULT OUT OF RANGE REFERENCE UNITS LAB 6690-2(LOINC) WBC # Bld Auto 5.59 3.70-11.00 k/uL LAB 789-8(LOINC) RBC # Bld Auto 4.85 4.20-6.00 m/uL LAB 718-7([facility]) Hgb Bld-mCnc 13.1 13.0-17.0 g/dL LAB 4544-3([facility]) Hct VFr Bld Auto 42.8 39.0-51.0 % LAB 787-2([facility]) MCV RBC Auto 88.2 80.0-100.0 fL LAB 785-6([facility]) MCH RBC Qn Auto 27.0 26.0-34.0 pg LAB 786-4([facility]) MCHC RBC Auto-mCnc 30.6 30.5-36.0 g/dL LAB 02002-7([facility]) RDW RBC-Rto 16.0 High 11.5-15.0 % LAB 777-3([facility]) Platelet # Bld Auto 85 Low 150-400 k/uL LAB 70778-9([facility]) PMV Bld Auto 11.6 9.0-12.7 fL LAB 771-6([facility]) nRBC # Bld Auto <0.01 <0.01 k/uL Performed By: #### 19522-2 # ### [facility] CLIA [id number] [address] MAGNESIUM SERPL-MCNC Collected: 10/27/2024 11:38 PM Status: F Source: [facility] Order Comment: Specimen Type : BLOOD SPECIMEN Ordering Facility: [facility] Address: [address] [place] [address] TYPE CODE TESTS RESULT OUT OF RANGE REFERENCE UNITS LAB 34717-8([facility]) Magnesium SerPl-mCnc 1.7 1.7-2.3 mg/dL Performed By: #### 2777-1, 1 9123-9 #### [facility] CLIA [id number] [address] PHOSPHATE SERPL-MCNC Collected: 10/27/2024 11:38 PM Status: F Source: [facility] Order Comment: Specimen Type : BLOOD SPECIMEN Ordering Facility: [facility] Address: [address] [place] [address] TYPE CODE TESTS RESULT OUT OF RANGE REFERENCE UNITS LAB 2777-1([facility]) Phosphate SerPl-mCnc 3.0 2.7-4.8 mg/dL Performed By: #### 2777-1, 1 9123-9 #### [facility] CLIA [id number] [address] [place] [address] [place] [facility] Observed: 10/27/2024 11:33 PM Status: COMPLETED Source: [facility] HNO ID: [id number] Author: MIKAELA CAMARA CT Service: Radiology Author Type: Technologist Type: Allied Health Filed: 10/27/2024 23:34 Note Text: Radiology Service Progress Note PATIENT NAME: Emelia Johnson DATE OF SERVICE: October 27, 2024 TIME: 11:33 PM PATIENT IDENTITY VERIFICATION COMPLETED USING TWO (2) IDENTIFIERS: Name and Date of confirmed by patient verbally and Name and Date of confirmed by identification band. FALL SCREENING: Has the patient had 2 falls in the last year or 1 fall with injury or currently using an Ambulatory Assistive Device (Walker, Cane, Wheelchair, Crutches, etc.)? Emergency Room Patient: Screened in ED PATIENT GENDER DATA: Assigned male at PATIENT RELEVANT IMPLANT DATA REVIEWED: Not Applicable PATIENT PRESENTS WITH AN IMPLANTABLE OR ATTACHED PHARMACEUTICAL DEVELOPMENT TECHNICIAN: N/A RADIOLOGY DEPARTMENT: Ultrasound PERIPHERAL IV DATA: Not applicable SIGNED BY: JOSEPH Smith October 27, 2024 11:33 PM US DVT LOWER LT Observed: 10/27/2024 11:04 PM Status: F Source: [facility] * * *Final Report* * * DATE OF EXAM: Oct 27 2024 11:04PM MDU 1006 - US DVT LOWER LT / PROCEDURE REASON: Leg swelling * * * * Physician Interpretation * * * * EXAMINATION: LEFT LOWER EXTREMITY DEEP VENOUS ULTRASOUND WITH DOPPLER IMAGING CLINICAL HISTORY: Left leg swelling for 2 years. TECHNIQUE: Grayscale with compression maneuvers, color Doppler and spectral Doppler imaging of the left proximal deep veins was performed. Grayscale with compression maneuvers of the peroneal and posterior tibial veins was performed. The left great and small saphenous veins were evaluated at their insertion to the deep system. The contralateral common femoral vein was imaged for comparison. Images were obtained and stored in a permanent archive. MQ: [id number] COMPARISON: 09/15/2023 ultrasound. 10/27/2024 CT abdomen/pelvis. RESULT: Technically difficult exam due to body habitus and edema. Unable to compress. LEFT LOWER EXTREMITY PROXIMAL DEEP VEINS Distal External Iliac, Common Femoral and proximal Profunda Veins: Doppler flow noted within the regions of the distal external iliac, common femoral, and proximal profunda veins. Large ovoid area of flow demonstrated in the region of the distal external iliac/common femoral vein, likely reflecting the bifurcation. Femoral vein: Doppler flow noted within the regions of the femoral vein. Popliteal vein: Doppler flow noted within the regions of the popliteal vein. CALF DEEP VEINS: Suboptimally visualized. Peroneal veins: Flow noted in the region of the veins. Posterior tibial veins: Flow noted in the region of the veins.t Gastrocnemius and Soleal veins: Not imaged. SUPERFICIAL VEINS Great saphenous: Not confidently identified. Small Saphenous: Not confidently identified. Flow noted in the region of the small saphenous vein Subcutaneous edema of the left thigh. RIGHT LOWER EXTREMITY (FOR COMPARISON) Common Femoral Vein: Not well evaluated. Flow demonstrated in the region of the common femoral vein. IMPRESSION: Severely degraded exam. Flow demonstrated in the regions of the left lower extremity veins as described above. Cannot entirely exclude a deep vein thrombosis on this exam. Engine Room Helper: PSCKristen Transcribe Date/Time: Oct 28 2024 1:42A Dictated by : RAFAEL ESTRADA MD This examination was interpreted and the report reviewed and electronically signed by: RAFAEL ESTRADA MD on Oct 28 2024 1:56AM EST [id number] ED NOTE Observed: 10/27/2024 10:32 PM Status: COMPLETED Source: [facility] HNO ID: [id number] Author: MARIA LUISA GARNER RN Service: ? Author Type: Registered Nurse Type: ED Notes Filed: 10/27/2024 22:32 Note Text: US at bedside HISTORY PHYSICAL Observed: 10/27/2024 10:14 PM Status: COMPLETED Source: [facility] HNO ID: [id number] Author: WILL MCFARLANE MD Service: Hospital Medicine Author Type: Physician Type: H&P Filed: 10/27/2024 22:34 Note Text: HOSPITAL MEDICINE HISTORY AND PHYSICAL EXAM PATIENT NAME: Emelia Johnson SERVICE DATE: 10/27/2024 SERVICE TIME: 10:15 PM Primary Care Physician: Jenae Santamaria MD [employer] [id number] ASSESSMENT AND PLAN This is a 74 year old male past medical history of COPD, hypertension, hyperlipidemia, CKD stage III, prior stroke, type II DM, chronic left leg swelling, GI bleed, peripheral vascular disease, history of recurrent UTI, history of rectal cancer status post APR, carotid artery stenosis status post right-sided carotid endarterectomy, history of aortofemoral bypass, who was brought to the ED with concerns of urinary tract infection after patient was found to be agitated at home. Acute toxic metabolic encephalopathy complicated UTI : Patient has neurogenic bladder and has chronic Maddox catheter. Maddox catheter was being changed today when he became agitated. UA shows signs of UTI Plan Patient started on IV Rocephin, seems to be around baseline upon my exam. Follow-up on urine culture. History of rectal cancer status post chemotherapy and APR with permanent colostomy. Patient follows up with oncology outpatient. CKD stage III-continue to monitor avoid nephrotoxins. History of recent GI bleed, EGD shows severe erosive esophagitis Patient is on PPI and Eliquis was stopped. Chronic left leg swelling : Ultrasound in the past has been negative for DVT CT done today shows chronic left common iliac venous occlusion and secondary left lower extremity chronic venous congestion, also noted more thrombosed 15 mm eccentric saccular aneurysm upper abdominal. Consult vascular surgery and GI in regards to restarting Eliquis. In the meantime we will start patient on heparin drip History of peripheral vascular disease : patient also underwent arteriogram with vascular surgery with angioplasty and stent placement in left profundofemoral artery. ? History of DVT-Eliquis was stopped recently due to GI bleed, patient has not followed up with GI regarding restarting the medication. Neurogenic bladder-patient follows up with urology outpatient. Continuing with Maddox catheter. DM type II-hold oral hypoglycemic Start patient on sliding scale. History of CVA-continue with aspirin and statin CT abdomen findings :IMPRESSION: 1. Image artifact generated by patient arm position. 2. No identified acute inflammatory or other acute intra-abdominal finding. 3. Preexistent abdominal perineal resection and left lower quadrant end colostomy. 4. Preexistent aortoiliac bypass graft absent internal iliac arteries. 5. Chronic left common iliac venous occlusion and secondary severe left lower extremity chronic venous congestion. 6. More thrombosed 15 mm eccentric saccular aneurysm upper abdominal aorta compared to 07/03/2024, the aneurysm new compared to 11/15/2020. 7. Left profunda femoral branch stent new compared to 07/03/2024. Indeterminant patency on this exam. Chronic bilateral SFA occlusion 8. Less thrombosed otherwise unchanged mild fusiform suprarenal abdominal aortic aneurysm compared to 11/15/2020 9. Small nonobstructing right renal calculus probably new 10. More edematous somatic soft tissues compared to 07/03/2024 11. Resolved pleural effusions compared to 07/03/2024. 12. Bladder catheter in situ 13. Preexistent findings as follows. Numerous small gallbladder stones. Bladder thickened wall and diverticulosis. Small gastric antral submucosal lipoma. Global left renal atrophy. Chronic L5 spondylolysis, grade 1 L5-S1 secondary spondylolisthesis Active Hospital Problems Diagnosis Acute metabolic encephalopathy Unspecified hypothyroidism Continue home synthroid. 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[facility]) History of CVA (cerebrovascular accident) History of right-sided carotid endarterectomy BPH (benign prostatic hyperplasia) History: Hypertrophy of the prostate with obstruction, home meds terazosin 5 mg at bedtime and finasteride Assessment: Voiding well Plan: Continue home terazosin and finasteride Continue to monitor CKD (chronic kidney disease) stage 3, GFR 30-59 ml/min ([facility]) History/Assessment: Baseline GFR ~40 Creatinine Date Value Ref Range Status 02/13/2020 1.60 (H) 0.73 - 1.22 mg/dL Final 02/07/2020 1.76 (H) 0.73 - 1.22 mg/dL Final 01/04/2014 1.26 0.70 - 1.40 mg/dL Final 01/03/2014 1.20 0.70 - 1.40 mg/dL Final Creatinine (POCT) Date Value Ref Range Status 02/07/2020 0.80 0.7 - 1.4 mg/dL Final Plan: Renally dose medications Monitor I/Os Continue to trend SCr 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der, with long-term current use of insulin ([facility]) History: Home meds levemir 20 units BID and glyburide 5 mg in AM and 2.5 mg in evening Assessment: Hemoglobin A1C (%) Date Value 02/07/2020 7.1 Recent Labs 02/13/20 1128 02/13/20 0648 PCGLUCOSE 123* 147* Plan: SSI Accuchecks Holding home oral agent and levemir until taking PO Continue to monitor Embolic stroke involving right carotid artery (HCC) H/O aorto-femoral bypass SUBJECTIVE CHIEF COMPLAINT: Agitation, hallucination HPI: This is a 74 year old male past medical history of COPD, hypertension, hyperlipidemia, CKD stage III, prior stroke, type II DM, chronic left leg swelling, GI bleed, peripheral vascular disease, history of recurrent UTI, history of rectal cancer status post APR, carotid artery stenosis status post right-sided carotid endarterectomy, history of aortofemoral bypass, who was brought to the ED with concerns of urinary tract infection after patient was found to be agitated at home. Limited history is available as patient is not a good historian and is alert and oriented x 1-2. Patient otherwise denies any complaints however I spoke to the granddaughter who thinks that patient has not been able to keep up with his ADLs and has difficulty in ambulation. In the ED he was hemodynamically stable, saturating on room air, he seems to be around his baseline mental status, pertinent positive labs included potassium 3.4, creatinine 1.5 which is around baseline, UA was positive for leukocyte esterase, nitrites, WBC, urine culture was collected and patient was admitted for UTI. Multiple abnormal findings noted on CT abdomen as mentioned above PAST MEDICAL HISTORY: PAST MEDICAL HISTORY Diagnosis Date Abdominal aneurysm without mention of rupture Aneurysm - Abdominal Aorta Atherosclerosis of [place] arteries of the extremities with intermittent claudication ASO - Extremities AND Claudication CAD (coronary artery disease) Coronary artery disease Cancer (HCC) Chronic obstructive pulmonary disease, unspecified COPD type (HCC) CKD (chronic kidney disease) stage 3, GFR 30-59 ml/min (HCC) Colon cancer (HCC) Depression Diabetes (HCC) Dyslipidemia Former smoker quit 2 weeks ago History of aorto-femoral bypass History of rectal cancer Hydronephrosis of right kidney Hyperlipidemia Hypertension Hypertrophy of prostate with urinary obstruction and other lower urinary tract symptoms ([facility]) Hypertrophy of the prostate with obstruction Neurogenic bladder Obesity Occlusion and stenosis of carotid artery with cerebral infarction ASO - Carotid W/O Infarction Other psoriasis and similar disorders Psoriasis Retention of urine Stage 3a chronic kidney disease (HCC) Stroke (cerebrum) ([facility]) residual L sided weakness 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 rupture, 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, with long-term current use of insulin (HCC) Unspecified hemorrhoids without mention of complication Hemorrhoids Unspecified hypothyroidism Hypothyroidism Unspecified hypothyroidism Vitamin D deficiency PAST SURGICAL HISTORY: PAST SURGICAL HISTORY Procedure Laterality Date BYP OTH/THN VEIN AORTOBIFEMORAL 2013 aortobifem LAPAROSCOPIC HEMICOLECTOMY colostomy PAST SURGICAL HISTORY OF Right 02/13/2020 [facility] FAMILY HISTORY: FAMILY HISTORY Problem Relation Age of Onset Diabetes Father Stroke ( age 89) Diabetes Mother Stroke ( age 88) Stroke Mother Diabetes Sister Brain ( age 64) Diabetes Brother other (Old Age) Maternal Grandmother age 98 Diabetes Maternal Grandfather No Ocular Disease No Family History SOCIAL HISTORY: Social History Tobacco Use Smoking status: Former Current packs/day: 0.00 Average packs/day: 3.0 packs/day for 50.0 years (150.0 ttl pk-yrs) Types: Cigars, Cigarettes Start date: 10/28/1963 Quit date: 10/27/2013 Years since quittin.0 Smokeless tobacco: Never Vaping Use Vaping status: Never Used Substance Use Topics Alcohol use: No Drug use: No MEDICATIONS: Reviewed ALLERGIES: ALLERGIES Allergen Reactions Lipitor [Atorvastat* Other: See Comments body aches REVIEW OF SYSTEM: All systems reviewed in detail and pertinent positives are mentioned in HPI OBJECTIVE BP 144/71 Pulse (!) 106 Temp 36.8 ?C (98.3 ?F) (Oral) Resp 17 Wt 81.7 kg (180 lb 1.9 oz) SpO2 (!) 94% BMI 28.21 kg/m? General : No distress , alert and oriented Oral : oral mucosa moist, no ulcers Eyes: PERRLA Neck - no JVD Respiratory : b/l equal breath sounds CVS - S1,S2 normal , no murmer heard, tachycardia present Abdomen :soft non tender, BS active, patient has colostomy bag on the left lower quadrant Extremities : Grossly swollen left lower extremity, and swelling of the scrotum noted. Neuro : grossly normal cognition, no motor or sensory deficit Pulses - 2+ radial, 2+carotid DATA: Diagnostic tests reviewed for today's visit: Most recent labs Most recent imaging Most recent EKG CBC: WBC 7.68 10/27/2024 Hemoglobin 12.7 10/27/2024 Hematocrit 41.4 10/27/2024 Platelet Count 77 10/27/2024 CMP: Sodium 140 10/27/2024 Potassium 3.4 10/27/2024 BUN 12 10/27/2024 Creatinine, Blood 1.51 10/27/2024 Glucose 91 10/27/2024 Chloride 102 10/27/2024 CO2 Content, Venous 25 10/27/2024 VTE Prophylaxis: Patient is already anti-coagulated. Disposition: To be determined Plan of care discussed with: Patient, Family/Other: and RN SIGNATURE: Will Mcfarlane MD DATE: October 27, 2024 TIME: 10:15 PM ED NOTE Observed: 10/27/2024 9:23 PM Status: COMPLETED Source: [facility] HNO ID: [id number] Author: MARIA LUISA GARNER RN Service: ? Author Type: Registered Nurse Type: ED Notes Filed: 10/27/2024 21:23 Note Text: Patient given a warm blanket HIGH SENSITIVITY TROPONIN T (THIRD) 3 HRS AFTER INITIAL Collected: 10/27/2024 7:32 PM Status: F Source: [facility] Order Comment: Specimen Type : BLOOD SPECIMEN Ordering Facility: [facility] Address: [address] [place] [address] TYPE CODE TESTS RESULT OUT OF RANGE REFERENCE UNITS LAB 76382-9(LOINC) Troponin T SerPl HS-mCnc 26 High <12 ng/L Performed By: #### [id number] # ### [facility] CLIA [id number] [address] [place] [address] [facility] HOSPITAL CT ABD/PEL W IVCON Observed: 10/27/2024 6:09 PM Status: F Source: [facility] * * *Final Report* * * DATE OF EXAM: Oct 27 2024 6:09PM [facility] [place] ABD/PEL W IVCON / PROCEDURE REASON: Abdominal abscess/infection suspected * * * * Physician Interpretation * * * * EXAMINATION: CT ABDOMEN AND PELVIS WITH IV CONTRAST CLINICAL HISTORY: Nausea and vomiting. TECHNIQUE: CT of the abdomen and pelvis was performed using standard technique, scanning from just above the dome of the diaphragm to the symphysis pubis. MQ: CTAP_3 Contrast: IV: 100 ml of Omnipaque 350 : ml of CT Radiation dose: Integrated Dose-length product (DLP) for this visit = 300 mGy*cm. CT Dose Reduction Employed: Automated exposure control(AEC) and iterative recon COMPARISON: Imported outside institution CTA abdomen, pelvis, lower extremity runoff dated 07/03/[address] abdomen pelvis with contrast 11/15/2020 RESULT: Liver: Normal size. No obvious lesion. Artifact from arm position Biliary: No bile duct dilation. Preexistent numerous small gallbladder stones. Spleen: No mass. No splenomegaly. Pancreas: No mass or duct dilation. No peripancreatic inflammatory stranding. Adrenals: No mass. Kidneys: Chronic left peripheral atrophy. No acute right abnormality. Probable new 3 to 4 mm nonobstructing lower pole calculus compared to 11/15/2020. GI tract: Preexistent abdominal perineal resection and left lower quadrant end colostomy. Variable small bowel caliber but the pattern appears nonobstructive. Unremarkable wall thickness. Appendix not identified. Chronic small submucosal lipoma gastric antrum. Lymph nodes: No new or progressive adenopathy compared to 11/15/2020 other than mildly larger left groin lymph nodes in the context of venous congestion new or at least significantly progressive compared to 11/15/2020 Mesentery/Peritoneum: No ascites or mass. Retroperitoneum: No mass. Vasculature: 1. Left abdominal aortic anterolateral proximally 15 mm eccentric saccular aneurysm between the SMA and left renal artery origins new compared to 11/15/2020, now almost entirely thrombosed compared to generally patent 07/03/2024. 2. Preexistent aortoiliac graft associated absent internal iliac arteries. 3. Suprarenal abdominal aortic fusiform aneurysm unchanged caliber approximately 3.5 cm compared to 11/15/2020. Less thrombosis of its lumen compared to that exam. No significant change compared to intervening 07/03/2024 exam 4. Chronically occluded bilateral SFA compared to 11/15/2020 5. Left femoral profunda branch stent new compared to 07/03/2024. Indeterminate patency on this exam 6. Chronic left common iliac venous obstruction compared to 07/03/2024 new or progressive compared to 11/15/2020 as is the associated extensive venous collaterals and severe chronic left lower extremity venous congestion Pelvis: Preexistent abdominal perineal resection. Preexistent bladder diverticula containing air and fluid as does the lumen in the context of in situ bladder catheter. No definite mucosal hyperenhancement or new or progressive periserosal inflammatory stranding. Bladder small-volume today. Bones/Soft Tissues: 1. Preexistent congestive severe enlargement partially imaged left lower extremity further discussed under vasculature. Moderate to severe soft tissue edema. 2. Moderate left and mild right somatic soft tissue edema otherwise is overall increased. 3. No acute osseous abnormality. 4. Chronic bilateral L5 spondylolysis and secondary grade 1 L5-S1 spondylolisthesis Lower thorax: Hypoexpanded lung bases without consolidation. Resolved prior pleural effusions. Localizer images: Frontal and lateral images. Patient arms at side positioning, possibly necessitated by patient limitations, anticipated to produce significant streak imaging artifact. Nonspecific bowel gas pattern. Right upper extremity IV. Preexistent surgical clips abdomen and bilateral groin. External devices and artifacts. IMPRESSION: 1. Image artifact generated by patient arm position. 2. No identified acute inflammatory or other acute intra-abdominal finding. 3. Preexistent abdominal perineal resection and left lower quadrant end colostomy. 4. Preexistent aortoiliac bypass graft absent internal iliac arteries. 5. Chronic left common iliac venous occlusion and secondary severe left lower extremity chronic venous congestion. 6. More thrombosed 15 mm eccentric saccular aneurysm upper abdominal aorta compared to 07/03/2024, the aneurysm new compared to 11/15/2020. 7. Left profunda femoral branch stent new compared to 07/03/2024. Indeterminant patency on this exam. Chronic bilateral SFA occlusion 8. Less thrombosed otherwise unchanged mild fusiform suprarenal abdominal aortic aneurysm compared to 11/15/2020 9. Small nonobstructing right renal calculus probably new 10. More edematous somatic soft tissues compared to 07/03/2024 11. Resolved pleural effusions compared to 07/03/2024. 12. Bladder catheter in situ 13. Preexistent findings as follows. Numerous small gallbladder stones. Bladder thickened wall and diverticulosis. Small gastric antral submucosal lipoma. Global left renal atrophy. Chronic L5 spondylolysis, grade 1 L5-S1 secondary spondylolisthesis Engine Room Helper: HAYLIE Transcribe Date/Time: Oct 27 2024 6:59P Dictated by : HAILEY ELDER MD This examination was interpreted and the report reviewed and electronically signed by: HAILEY ELDER MD on Oct 27 2024 8:00PM EST [id number] CT BRAIN WO IVCON Observed: 10/27/2024 6:06 PM Status: F Source: [facility] * * *Final Report* * * DATE OF EXAM: Oct 27 2024 6:06PM [facility] [place] BRAIN WO IVCON / PROCEDURE REASON: Mental status change, unknown cause * * * * Physician Interpretation * * * * EXAMINATION: CT BRAIN WO IVCON CLINICAL HISTORY: Mental status change TECHNIQUE: Serial axial images without IV contrast were obtained from the vertex to the foramen magnum. MQ: CTBWO_3 CT Radiation dose: Integrated Dose-Length Product (DLP) for this visit = 776 mGy*cm CT Dose Reduction Employed: Automated exposure control(AEC) and iterative recon COMPARISON: None. RESULT: Post-operative change: None. Acute change: No evidence of an acute infarct or other acute parenchymal process. Hemorrhage: No evidence of acute intracranial hemorrhage. ECASS hemorrhagic transformation score: Not Applicable Mass Lesion / Mass Effect: There is no evidence of an intracranial mass or extraaxial fluid collection. No significant mass effect. Chronic change: Extensive confluent foci of low attenuation are present within the supratentorial white matter, a nonspecific finding that most commonly represents extensive small vessel disease. Remote right external capsule and adjacent white matter infarction. Parenchyma: There is severe generalized volume loss. The brain parenchyma is otherwise within normal limits for age. Ventricles: The ventricles are within normal limits of size and configuration for age. Paranasal sinuses and skull base: The visualized paranasal sinuses are grossly clear. The skull base and imaged soft tissues are unremarkable. Localizer images: Unremarkable. IMPRESSION: NO EVIDENCE OF AN ACUTE INTRACRANIAL PROCESS Advanced senescent changes Engine Room Helper: HAYLIE Transcribe Date/Time: Oct 27 2024 6:18P Dictated by : JEFFERSON PIÑA MD This examination was interpreted and the report reviewed and electronically signed by: JEFFERSON PIÑA MD on Oct 27 2024 6:21PM EST [id number] ALLIED HEALTH Observed: 10/27/2024 6:05 PM Status: COMPLETED Source: [facility] HNO ID: [id number] Author: HENNY LARSEN, TECHNOLOGIST Service: Radiology Author Type: Technologist Type: Allied Health Filed: 10/27/2024 18:06 Note Text: Radiology Service Progress Note DATE OF SERVICE: October 27, 2024 TIME: 6:05 PM PATIENT IDENTITY VERIFICATION COMPLETED USING TWO (2) STANDARD IDENTIFIERS: Name and Date of confirmed by patient verbally and Name and Date of confirmed by identification band. FALL SCREENING: Has the patient had 2 falls in the last year or 1 fall with injury or currently using an Ambulatory Assistive Device (Walker, Cane, Wheelchair, Crutches, etc.)? Emergency Room Patient: Screened in ED PATIENT GENDER DATA: Assigned male at PATIENT RELEVANT IMPLANT DATA REVIEWED: Yes PATIENT PRESENTS WITH AN IMPLANTABLE OR ATTACHED PHARMACEUTICAL DEVELOPMENT TECHNICIAN: No ALLERGIES: Reviewed and unchanged CONTRAST ALLERGY: NO. EXAM: CT -CONTRAST INDUCED NEPHROPATHY RISK FACTORS: Patient age > 60 years CREATININE: Creatinine Date Value Ref Range Status 10/27/2024 1.51 (H) 0.73 - 1.22 mg/dL Final 08/22/2024 1.47 (H) 0.73 - 1.22 mg/dL Final 04/15/2024 1.61 (H) 0.73 - 1.22 mg/dL Final Estimated Glomerular Filtration Rate Date Value Ref Range Status 10/27/2024 48 (L) >=60 mL/min/1.73m? Final Comment: Estimated Glomerular Filtration Rate (eGFR) is calculated using the 2020 CKD-EPI creatinine equation. This equation utilizes serum creatinine, sex, and age as parameters. The creatinine assay has traceable calibration to isotope dilution-mass spectrometry. Refer to KDIGO guidelines for clinical interpretation. In patients with unstable renal function, e.g. those with acute kidney injury, the eGFR may not accurately reflect actual GFR. eGFR- Date Value Ref Range Status 10/18/2020 >60 Final P.O.C.T. RESULTS: POC done: Yes, See Lab Tab October 27, 2024 TREATMENT: N/A PERIPHERAL IV DATA: Ambulatory: A peripheral IV was started in the Right antecubital site with a Angio cath: 20 gauge. RADIOLOGY DEPARTMENT: CT; Exam(s) Completed: Abdomen/Pelvis and Brain SIGNATURE: Henny Larsen TECHNOLOGIST PATIENT NAME: Emelia Johnson DATE: October 27, 2024 TIME: 6:05 PM URINALYSIS COMPLETE PNL UR Collected: 10/27/2024 5:32 PM Status: F Source: [facility] Order Comment: Specimen Type : URINE SPECIMEN Ordering Facility: [facility] Address: [address] [place] [address] TYPE CODE TESTS RESULT OUT OF RANGE REFERENCE UNITS LAB 5778-6(LOINC) Color Ur Yellow Yellow LAB 41284-9(LOINC) Clarity Spec Slightly Cloudy Abnormal Clear LAB 5792-7(LOINC) Glucose Ur Strip-mCnc Negative Negative LAB 5770-3(LOINC) Bilirub Ur Ql Strip Negative Negative LAB 2514-8(LOINC) Ketones Ur Strip Negative Negative LAB 5811-5(LOINC) Sp Gr Ur Strip 1.015 1.005-1.030 LAB 5794-3(LOINC) Hgb Ur Ql Strip 2+ Abnormal Negative LAB 5803-2(LOINC) pH Ur Strip 6.5 5.0-8.0 LAB 5804-0(LOINC) Prot Ur Strip-mCnc 1+ Abnormal Negative LAB 5818-0(LOINC) Urobilinogen Ur Strip 0.2 EU/dL 0.2-1.0 EU/dL LAB 5802-4(LOINC) Nitrite Ur Ql Strip Positive Abnormal Negative LAB 5799-2(LOINC) Leukocyte esterase Ur Ql Strip 2+ Abnormal Negative LAB 5821-4(LOINC) WBC #/area UrnS HPF >25 /HPF Abnormal 0-5 /HPF LAB 53194-4(LOINC) RBC #/area UrnS HPF 3-5 /HPF Abnormal 0-3 /HPF LAB 5769-5(LOINC) Bacteria #/area UrnS HPF Many Abnormal None Seen /HPF LAB 1CAOX CALCIUM OXALATE CRYSTALS (UA) Few Abnormal None Seen /HPF Performed By: #### 630-4 ### # [facility] CLIA [id number] [address] [place] [address] [place] #### 05050-5 #### [facility] CLIA [id number] [address] [place] [address] [place] BACTERIA UR CULT Observed: 10/27/2024 5:32 PM Status: F Source: [facility] ORGANISM ID: 1 >=100,000 CFU/ml Mixed microbiota No further workup. Mixed microbiota can be due to???urine???contamination with skin bacteria at time of collection or presence of a long-term urinary catheter. If a new culture is needed, please consider re-education of the patient on proper midstream collection technique or straight catheterization for???urine???collection. Performed By: #### 630-4 ### # [facility] CLIA [id number] [address] [place] [address] [place] #### 55887-2 #### [facility] CLIA [id number] [address] [place] HIGH SENSITIVITY TROPONIN T (SECOND) Collected: 10/27/2024 5:31 PM Status: F Source: [facility] Order Comment: Specimen Type : BLOOD SPECIMEN Ordering Facility: [facility] Address: [address] [place] [address] TYPE CODE TESTS RESULT OUT OF RANGE REFERENCE UNITS LAB 93353-0(LOINC) Troponin T SerPl HS-mCnc 28 High <12 ng/L Performed By: #### [id number] # ### [facility] CLIA [id number] [address] [place] [address] [place] BACTERIA BLD CULT Observed: 10/27/2024 5:30 PM Status: F Source: [facility] CULTURE, BLOOD: No growth 5 days Performed By: #### 600-7 ### # [facility] CLIA [id number] [address] [place] [address] [place] EKG Observed: 10/27/2024 5:27 PM Status: F Source: [facility] Ventricular Rate : 97 BPM Atrial Rate : 97 BPM P-R Interval : 146 ms QRS Duration : 130 ms Q-T Interval : 412 ms QTC Calculation(Bazett) : 523 ms Calculated P Energy : 17 degrees Calculated R Energy : 4 degrees Calculated T Energy : 22 degrees SINUS RHYTHM WITH FREQUENT PREMATURE VENTRICULAR COMPLEXES RIGHT BUNDLE BRANCH BLOCK ABNORMAL ECG no STEMI Confirmed by ORQUIDEA ZAMORA MD ([id number]) on 10/27/2024 5:30:43 PM NAME : EMELIA JOHNSON PID : [id number] : 1950 Gender : Male Race : ORD : Procedure Date : Oct 27 2024 17:27:12 Edit Date : Oct 27 2024 17:30:46 Diagnosis: SINUS RHYTHM WITH FREQUENT PREMATURE VENTRICULAR COMPLEXES RIGHT BUNDLE BRANCH BLOCK ABNORMAL ECG no STEMI Confirmed by ORQUIDEA ZAMORA MD ([id number]) on 10/27/2024 5:30:43 PM Test Reason : Location : 1 : ER ED Overread By : ORQUIDEA ZAMORA MD Edited By : ORQUIDEA ZAMORA MD Referred By : , Acquired by : [id number], XR CHEST 2V FRONTAL/LAT Observed: 2024 4:19 PM Status: F Source: [facility] * * *Final Report* * * DATE OF EXAM: Oct 27 2024 4:19PM MDX 5291 - XR CHEST 2V FRONTAL/LAT / PROCEDURE REASON: Cough * * * * Physician Interpretation * * * * EXAMINATION: CHEST RADIOGRAPH (2 VIEW FRONTAL and LATERAL) CLINICAL HISTORY: Cough, Shortness of breath MQ: XC2_6 EXAM DATE/TIME: 10/27/2024 4:19 PM COMPARISON: Chest x-ray 10/07/2020 RESULT: Lines, tubes, and devices: None. Lungs and pleura: Shallow inspiration. Bilateral basilar atelectasis. No consolidation. No pleural effusion or pneumothorax. Cardiomediastinal silhouette: Normal cardiomediastinal silhouette. Bones and soft tissues: Unremarkable. IMPRESSION: Bilateral basilar atelectasis Engine Room Helper: PSCKristen Transcribe Date/Time: Oct 27 2024 4:23P Dictated by : KATALINA JACKSON MD This examination was interpreted and the report reviewed and electronically signed by: KATALINA JACKSON MD on Oct 27 2024 4:24PM EST [id number] ALLIED HEALTH Observed: 10/27/2024 4:17 PM Status: COMPLETED Source: [facility] HNO ID: [id number] Author: DILCIA GRAFF RT(R) Service: ? Author Type: Pie Filling Mixer Type: Allied Health Filed: 10/27/2024 16:18 Note Text: Radiology Service Progress Note PATIENT NAME: Emelia Johnson DATE OF SERVICE: October 27, 2024 TIME: 4:17 PM PATIENT IDENTITY VERIFICATION COMPLETED USING TWO (2) IDENTIFIERS: Name and Date of confirmed by identification band. FALL SCREENING: Has the patient had 2 falls in the last year or 1 fall with injury or currently using an Ambulatory Assistive Device (Walker, Cane, Wheelchair, Crutches, etc.)? Emergency Room Patient: Screened in ED PATIENT GENDER DATA: Assigned male at PATIENT RELEVANT IMPLANT DATA REVIEWED: Not Applicable PATIENT PRESENTS WITH AN IMPLANTABLE OR ATTACHED PHARMACEUTICAL DEVELOPMENT TECHNICIAN: No RADIOLOGY DEPARTMENT: General X-ray: Exam(s) Completed: Chest X-Ray PERIPHERAL IV DATA: Not applicable SIGNED BY: RT Jer(Ranjeet) October 27, 2024 4:17 PM ED PROV NOTE Observed: 10/27/2024 4:11 PM Status: COMPLETED Source: [facility] HNO ID: [id number] Author: KESHIA LOPEZ PA-C Service: Emergency Medicine Author Type: Physician Director Of Residence Life Type: ED Provider Notes Filed: 10/27/2024 21:04 Note Text: ED Provider Note Patient Name: Emelia Johnson : 1950 SERVICE DATE: 10/27/24 History Patient presents with: Confused 74-year-old male with a past medical history of COPD, CKD, hyperlipidemia, hypertension, prior stroke, type 2 diabetes, hypertension, hyperlipidemia, presents to the ED today via EMS from home for confusion and worsening weakness and lethargy, according to EMS report, patient's family called 911 for patient worsening confusion, he has a history of UTI and family noticed more hallucinations and patient seeing family that is not there, patient frequently gets UTIs, he has a Maddox catheter that they changed frequently, they changed it earlier today, patient denies any chest pain, denies any shortness of breath, denies any back pain or abdominal pain he does have a history of chronic left leg swelling that extends to the left groin/scrotum, patient has been seen for this multiple times without any significant resolutions PAST MEDICAL HISTORY Diagnosis Date Abdominal aneurysm without mention of rupture Aneurysm - Abdominal Aorta Atherosclerosis of [place] arteries of the extremities with intermittent claudication ASO - Extremities AND Claudication CAD (coronary artery disease) Coronary artery disease Cancer (HCC) Chronic obstructive pulmonary disease, unspecified COPD type (HCC) CKD (chronic kidney disease) stage 3, GFR 30-59 ml/min (HCC) Colon cancer (HCC) Depression Diabetes (HCC) Dyslipidemia Former smoker quit 2 weeks ago History of aorto-femoral bypass History of rectal cancer Hydronephrosis of right kidney Hyperlipidemia Hypertension Hypertrophy of prostate with urinary obstruction and other lower urinary tract symptoms (LUTS) Hypertrophy of the prostate with obstruction Neurogenic bladder Obesity Occlusion and stenosis of carotid artery with cerebral infarction ASO - Carotid W/O Infarction Other psoriasis and similar disorders Psoriasis Retention of urine Stage 3a chronic kidney disease (HCC) Stroke (cerebrum) (HCC) residual L sided weakness 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 rupture, 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, with long-term current use of insulin (HCC) Unspecified hemorrhoids without mention of complication Hemorrhoids Unspecified hypothyroidism Hypothyroidism Unspecified hypothyroidism Vitamin D deficiency PAST SURGICAL HISTORY Procedure Laterality Date BYP OTH/THN VEIN AORTOBIFEMORAL 2013 aortobifem LAPAROSCOPIC HEMICOLECTOMY colostomy PAST SURGICAL HISTORY OF Right 02/13/2020 [facility] FAMILY HISTORY Problem Relation Age of Onset Diabetes Father Stroke ( age 89) Diabetes Mother Stroke ( age 88) Stroke Mother Diabetes Sister Brain ( age 64) Diabetes Brother other (Old Age) Maternal Grandmother age 98 Diabetes Maternal Grandfather No Ocular Disease No Family History Social History Tobacco Use Smoking status: Former Current packs/day: 0.00 Average packs/day: 3.0 packs/day for 50.0 years (150.0 ttl pk-yrs) Types: Cigars, Cigarettes Start date: 10/28/1963 Quit date: 10/27/2013 Years since quittin.0 Smokeless tobacco: Never Vaping Use Vaping status: Never Used Substance and Sexual Activity Alcohol use: No Drug use: No Sexual activity: Not on file Comment: not asked ALLERGIES Allergen Reactions Lipitor [Atorvastat* Other: See Comments body aches Review of Systems Constitutional: Positive for fatigue. Negative for chills and fever. HENT: Negative for trouble swallowing. Eyes: Negative for photophobia and visual disturbance. Respiratory: Negative for cough, chest tightness, shortness of breath and wheezing. Cardiovascular: Positive for leg swelling. Negative for chest pain and palpitations. Gastrointestinal: Negative for abdominal pain, diarrhea, nausea and vomiting. Genitourinary: Negative for dysuria, flank pain and hematuria. Musculoskeletal: Negative for back pain, neck pain and neck stiffness. Skin: Negative for color change. Neurological: Positive for weakness. Negative for numbness and headaches. Psychiatric/Behavioral: Positive for confusion. Physical Exam Vitals [10/27/24 1554] BP Pulse Temp Temp src Resp SpO2 Weight Height 151/74 (!) 110 36.8 ?C (98.3 ?F) Oral 20 95 % 81.7 kg (180 lb 1.9 oz) -- Physical Exam Constitutional: Appearance: He is well-developed. HENT: Head: Normocephalic and atraumatic. No raccoon eyes or Adam's sign. Right Ear: Hearing normal. Left Ear: Hearing normal. Nose: Nose normal. Right Sinus: No maxillary sinus tenderness or frontal sinus tenderness. Left Sinus: No maxillary sinus tenderness or frontal sinus tenderness. Eyes: Conjunctiva/sclera: Conjunctivae normal. Cardiovascular: Rate and Rhythm: Normal rate. Pulmonary: Effort: Pulmonary effort is normal. Abdominal: Palpations: Abdomen is soft. Comments: Colostomy left lower quadrant with no surrounding erythema or redness, Maddox catheter in place, Genitourinary: Comments: Maddox catheter in place, there appears to be left scrotal wall redness and swelling and left leg swelling the patient tells me its chronic, no Alberto gangrene, no necrotizing fasciitis Musculoskeletal: General: Normal range of motion. Cervical back: Normal range of motion and neck supple. Skin: General: Skin is warm and dry. Neurological: General: No focal deficit present. Mental Status: He is alert. Motor: No tremor, atrophy or seizure activity. Gait: Gait normal. Comments: Alert and oriented to self and time, not sure which hospital he is in, no facial droop, no slurred speech, no weakness with upper or lower extremities, no weakness with upper or lower EXTR Psychiatric: Behavior: Behavior normal. Diagnostic Testing ED Labs Ordered and Reviewed - No data to display Procedures ED Course / Clinical Impression Clinical Impressions as of 10/27/242030 Weakness Confusion Tachycardia Hypokalemia Delirium Acute cystitis with hematuria Leg swelling MDM / Disposition / Plan The medical record is reviewed.Triage note is reviewed and incorporated.The nursing note is reviewed and consistent with patient's history and physical exam findings. The vital signs were reviewed and the vital signs are : BP 151/74 Pulse (!) 110 Temp 36.8 ?C (98.3 ?F) (Oral) Resp 20 Wt 81.7 kg (180 lb 1.9 oz) SpO2 95% BMI 28.21 kg/m? ASSESSMENT AND PLAN: This is a 74 year old male who presents to the ED with a chief complaint of confusion, . Plan is labs, cxr, ct, re-eval. . 74-year-old male presents for UTI and confusion, according to EMS he was more confused and has been more weak according to family along with being more combative with family, he has been hallucinating as well, on exam patient appears in no distress at this time, CBC with no leukocytosis, hemoglobin 12.7, 91.8, CMP with mild hypokalemia, creatinine 1.51, magnesium 1.8, proBNP 2632, ISI troponin at 28 and 28, UA concerning for UTI, EKG shows sinus rhythm with PVCs, rate 97, no STEMI, CT brain showed no acute findings, x-ray shows bilateral basilar atelectasis, CT abdomen shows no acute inflammatory or acute intra-abdominal process, does show pre-existing abdominal perineal resection along with chronic findings, he has had a history of left leg swelling that is chronic for over a year, has had a history of CTA of the extremity with runoff, we were able to find pulses with the Doppler, I did speak to internal medicine who was wanted patient to go home, family told me the patient was confused and delirius and with the frequent history of UTI, there were concerned about his symptoms, internal medicine was actually called family to see what their wishes are if they wish the patient should be admitted and we will admit him, if not patient can be discharged home with oral antibiotics. This note was partially generated using [email or web address] voice recognition system, and there may be some incorrect words, spellings, and punctuation that were not noted in checking the note before saving History and Record Review External record(s) reviewed: prior outpatient record. Findings from review of outpatient records: history of rectal cancer Differential Diagnoses - UTI is more likely for the following reason(s): suggested by HANDP - Confusion is more likely for the following reason(s): suggested by HANDP - weakness is more likely for the following reason(s): suggested by HANDP - Delirium Management I performed an independent interpretation of the following:see ED course, telemetry and imaging Telemetry: My interpretation is Bibasilar atelectasis Imaging: My interpretation is No pneumonia Radiology Reports CT ABD/PEL W IVCON Final Result IMPRESSION: 1. Image artifact generated by patient arm position. 2. No identified acute inflammatory or other acute intra-abdominal finding. 3. Preexistent abdominal perineal resection and left lower quadrant end colostomy. 4. Preexistent aortoiliac bypass graft absent internal iliac arteries. 5. Chronic left common iliac venous occlusion and secondary severe left lower extremity chronic venous congestion. 6. More thrombosed 15 mm eccentric saccular aneurysm upper abdominal aorta compared to 07/03/2024, the aneurysm new compared to 11/15/2020. 7. Left profunda femoral branch stent new compared to 07/03/2024. Indeterminant patency on this exam. Chronic bilateral SFA occlusion 8. Less thrombosed otherwise unchanged mild fusiform suprarenal abdominal aortic aneurysm compared to 11/15/2020 9. Small nonobstructing right renal calculus probably new 10. More edematous somatic soft tissues compared to 07/03/2024 11. Resolved pleural effusions compared to 07/03/2024. 12. Bladder catheter in situ 13. Preexistent findings as follows. Numerous small gallbladder stones. Bladder thickened wall and diverticulosis. Small gastric antral submucosal lipoma. Global left renal atrophy. Chronic L5 spondylolysis, grade 1 L5-S1 secondary spondylolisthesis Engine Room Helper: [facility] Transcribe Date/Time: Oct 27 2024 6:59P Dictated by : HAILEY ELDER MD This examination was interpreted and the report reviewed and electronically signed by: HAILEY ELDER MD on Oct 27 2024 8:00PM EST CT BRAIN WO IVCON Final Result IMPRESSION: NO EVIDENCE OF AN ACUTE INTRACRANIAL PROCESS Advanced senescent changes Engine Room Helper: [facility] Transcribe Date/Time: Oct 27 2024 6:18P Dictated by : JEFFERSON PIÑA MD This examination was interpreted and the report reviewed and electronically signed by: JEFFERSON PIÑA MD on Oct 27 2024 6:21PM EST XR CHEST 2V FRONTAL/LAT Final Result IMPRESSION: Bilateral basilar atelectasis Engine Room Helper: [facility] Transcribe Date/Time: Oct 27 2024 4:23P Dictated by : KATALINA JACKSON MD This examination was interpreted and the report reviewed and electronically signed by: KATALINA JACKSON MD on Oct 27 2024 4:24PM EST Meds Given During Visit ED Medication Administration from 10/27/2024 1541 to 10/27/2024 2032 Date/Time Order Dose Route Action 10/27/2024 1730 EDT NaCl 0.9% 1,000 mL iv bolus 1,000 mL INTRAVENOUS New Bag/Syringe/Bottle 10/27/2024 1839 EDT NaCl 0.9% 1,000 mL iv bolus 0 mL INTRAVENOUS Infusion Complete 10/27/2024 1827 EDT cefTRIAXone iv piggyback 1 g in dextrose (iso-osmotic) 50 mL (ROCEPHIN) 1 g INTRAVENOUS New Bag/Syringe/Bottle 10/27/2024 191 EDT cefTRIAXone iv piggyback 1 g in dextrose (iso-osmotic) 50 mL (ROCEPHIN) 0 g INTRAVENOUS Infusion Complete Re-evaluation see ED course Keshia Lopez PA-C Disposition The patient was admitted. Counseled patient and family regarding lab results, radiology results and suspected diagnosis. SIGNATURE: Keshia Lopez PA-C Attending Note Attestation for: CARROT GRADER INSPECTOR/MICHAEL I have personally performed a face to face assessment of the patient and have reviewed the YUMIKO note. I personally made/approved the management plan and take responsibility for the patient management. I performed a substantive portion of the visit including all aspects of the following. My munoz findings include: History - Mr. Johnson is a 74 yo M w/ chronic maddox x ~ 5 yrs ago, had a change today, then became very delirious and agitated and combative. Brought here by EMS who noted he was combative. Much improved now, no symptoms. He has a history of colostomy. No nausea or vomiting or unilateral weakness or numbness or trouble speaking or swallowing. Physical exam-no distress, good perfusion, left lower extremity impressive edema which he notes is longstanding, doppler used AND monophasic L DP pulse, louder posterior tibial pulse intact (he notes sometimes they can't even hear it so not worse/new), no abdominal tenderness, colostomy with gas in the bag Assessment and plan-Mr. Johnson is a 74-year-old man presenting with likely UTI causing delirium after he had his catheter changed today. White blood count and lactate are normal. Troponins are flat. Creatinine is baseline at 1.5. CT brain nothing acute. CT abdomen/pelvis pending. Receiving ceftriaxone. Plan admission overnight given he was delirious and agitated and combative earlier. Chronic LLE arterial issues s/p procedures, but he denies acute pain, notes us finding pulses in that LLE is actually better than frequently able to be done. Signature: Orquidea Zamora MD Date: 10/27/2024 Time: 8:26 PM JAI KESHIA 10/27/242031 JAI KESHIA 10/27/242103 COMP METAB 2000 PNL SERPL Collected: 4:09 PM Status: F Source: [facility] Order Comment: Specimen Type : BLOOD SPECIMEN Ordering Facility: [facility] Address: [address] [place] [address] TYPE CODE TESTS RESULT OUT OF RANGE REFERENCE UNITS LAB 2885-2(LOINC) Prot SerPl-mCnc 7.6 6.3-8.0 g/dL LAB 1751-7(LOINC) Albumin SerPl-mCnc 3.6 Low 3.9-4.9 g/dL LAB 59564-9(LOINC) Calcium SerPl-mCnc 9.0 8.5-10.2 mg/dL LAB 1975-2(LOINC) Bilirub SerPl-mCnc 0.5 0.2-1.3 mg/dL LAB 6768-6(LOINC) ALP SerPl-cCnc 89 38-113 U/L LAB 1920-8(LOINC) AST SerPl-cCnc 18 14-40 U/L LAB 1742-6(LOINC) ALT SerPl-cCnc 8 Low 10-54 U/L LAB 2345-7(LOINC) Glucose SerPl-mCnc 91 74-99 mg/dL Result Comment: The [place] Diabetes Association (ADA) provides guidance for cutoff values for fasting glucose and random glucose. The ADA defines fasting as no caloric intake for at least 8 hours. Fasting plasma glucose results between 100 to 125 mg/dL indicate increased risk for diabetes (prediabetes). Fasting plasma glucose results greater than or equal to 126 mg/dL meet the criteria for diagnosis of diabetes. In the absence of unequivocal hyperglycemia, results should be confirmed by repeat testing. In a patient with classic symptoms of hyperglycemia or hyperglycemic crisis, random plasma glucose results greater than or equal to 200 mg/dL meet the criteria for diagnosis of diabetes. Reference: Standards of Medical Care in Diabetes 2016, [place] [employer] Association. Diabetes Care. 2016.39(Suppl 1). LAB 3094-0(LOINC) BUN SerPl-mCnc 12 9-24 mg/dL LAB 2160-0(LOINC) Creat SerPl-mCnc 1.51 High 0.73-1.22 mg/dL LAB 2951-2(LOINC) Sodium SerPl-sCnc 140 136-144 mmol/L LAB 2823-3(LOINC) Potassium SerPl-sCnc 3.4 Low 3.7-5.1 mmol/L LAB 2075-0(LOINC) Chloride SerPl-sCnc 102 98-107 mmol/L LAB 2028-9(LOINC) CO2 SerPl-sCnc 25 22-30 mmol/L LAB 70616-8(LOINC) Anion Gap SerPl-sCnc 13 8-15 mmol/L LAB 55638-9(LOINC) eGFRcr SerPlBld CKD-EPI 2020 48 Low >=60 mL/min/1. 73m??? Result Comment: Estimated Gl omerular Filtration Rate (eGFR) is calculated using the 2020 CKD-EPI creatinine equation. This equation utilizes serum creatinine, sex, and age as parameters. The creatinine assay has traceable calibration to isotope dilution-mass spectrometry. Refer to KDIGO guidelines for clinical interpretation. In patients with unstable renal function, e.g. those with acute kidney injury, the eGFR may not accurately reflect actual GFR. Performed By: #### 17903-2, 00073-6, [id number], 61658-0 #### [facility] CLIA [id number] [address] STATES [facility] MAGNESIUM SERPL-MCNC Collected: 10/27/2024 4:09 PM S tatus: F Source: [facility] Order Comment: Specimen Type : BLOOD SPECIMEN Ordering Facility: [facility] Address: [address] [place] [address] TYPE CODE TESTS RESULT OUT OF RANGE REFERENCE UNITS LAB 13650-4([facility]) Magnesium SerPl-mCnc 1.8 1.7-2.3 mg/dL Performed By: #### 00519-6, 08085-4, [id number], 30303-2 #### [facility] CLIA [id number] [address] HIGH SENSITIVITY TROPONIN T (INITIAL) Collected: 10/27/2024 4:09 PM Status: F Source: [facility] Order Comment: Specimen Type : BLOOD SPECIMEN Ordering Facility: [facility] Address: [address] [place] [address] TYPE CODE TESTS RESULT OUT OF RANGE REFERENCE UNITS LAB 46365-9(LOINC) Troponin T SerPl HS-mCnc 28 High <12 ng/L Performed By: #### 27097-2, 31221-4, [id number], 79080-9 #### [facility] CLIA [id number] [address] [place] NT-PROBNP SERPL-MCNC Collected: 10/27/2024 4:09 PM S tatus: F Source: [facility] Order Comment: Specimen Type : BLOOD SPECIMEN Ordering Facility: [facility] Address: [address] [place] [address] TYPE CODE TESTS RESULT OUT OF RANGE REFERENCE UNITS LAB 16300-1(LOINC) NT-proBNP SerPl-mCnc 2632 High <125 pg/mL Performed By: #### 80052-7, 43102-6, [id number], 29957-4 #### [facility] CLIA [id number] [address] [place] BACTERIA BLD CULT Observed: 10/27/2024 4:09 PM Status: F Source: [facility] CULTURE, BLOOD: No growth 5 days Performed By: #### 600-7 ### # [facility] CLIA [id number] [address] [place] [address] OF [facility] SEPSIS LACTATE W/ REFLEX (INITIAL) Collected: 10/27/2024 4:09 PM Status: F Source: [facility] Order Comment: Specimen Type : BLOOD SPECIMEN Ordering Facility: [facility] Address: [address] [place] [address] TYPE CODE TESTS RESULT OUT OF RANGE REFERENCE UNITS LAB 20655-9(LOINC) Lactate Bld-sCnc 1.8 0.5-2.0 mmol/L Performed By: #### SLACTR ## ## [facility] CLIA [id number] [address] [place] CBC W AUTO DIFF BLD Collected: 10/27/2024 4:[address] atus: F Source: [facility] Order Comment: Specimen Type : BLOOD SPECIMEN Ordering Facility: [facility] Address: [address] [place], [place] [address] [address] TYPE CODE TESTS RESULT OUT OF RANGE REFERENCE UNITS LAB 6690-2([facility]) WBC # Bld Auto 7.68 3.70-11.00 k/uL LAB 789-8([facility]) RBC # Bld Auto 4.67 4.20-6.00 m/ uL LAB 718-7([facility]) Hgb Bld-mCnc 12.7 Low 13.0-17.0 g/dL LAB 4544-3([facility]) Hct VFr Bld Auto 41.4 39.0-51.0 % LAB 787-2([facility]) MCV RBC Auto 88.7 80.0-100.0 fL LAB 785-6([facility]) MCH RBC Qn Auto 27.2 26.0-34.0 p g LAB 786-4([facility]) MCHC RBC Auto-mCnc 30.7 30.5-36.0 g/dL LAB 48933-1([facility]) RDW RBC-Rto 16.0 High 11.5-15.0 % LAB 777-3([facility]) Platelet # Bld Auto 77 Low 150-400 k/uL Result Comment: No clot dete cted. LAB 18093-0([facility]) PMV Bld Auto 12.2 9.0-12.7 fL LAB 770-8(INC) Neutrophils/leuk NFr Bld Auto 74.5 % LAB 751-8(INC) Neutrophils # Bld Auto 5.72 1.45-7.50 k/uL LAB 736-9(INC) Lymphocytes/leuk NFr Bld Auto 14.7 % LAB 731-0(INC) Lymphocytes # Bld Auto 1.13 1.00-4.00 k/uL LAB 5905-5(INC) Monocytes/leuk NFr Bld Auto 7.4 % LAB 742-7(LOINC) Monocytes # Bld Auto 0.57 <0.87 k/uL LAB 713-8(LOINC) Eosinophil/leuk NFr Bld Auto 2.2 % LAB 711-2(LOINC) Eosinophil # Bld Auto 0.17 <0.46 k/uL LAB 706-2(LOINC) Basophils/leuk NFr Bld Auto 0.8 % LAB 704-7(LOINC) Basophils # Bld Auto 0.06 <0.11 k/uL LAB 96424-9(LOINC) Imm Granulocytes/michelle k NFr Bld Auto 0.4 % LAB 01931-9(LOINC) Imm Granulocytes # Bld Auto 0.03 <0.10 k/uL LAB 09294-3(LOINC) nRBC/100 WBC Bld-Rto 0.0 /100 WBC LAB 771-6(LOINC) nRBC # Bld Auto <0.01 <0.01 k/u L LAB 32645-2(LOINC) Differential method Bld Auto Performed By: #### 83086-5 # ### [facility] CLIA [id number] [address] [place] [address] [facility] ED NOTE Observed: 10/27/2024 3:47 PM Status: COMPLETED Source: [facility] HNO ID: [id number] Author: SANDRA PENN RN Service: ? Author Type: Registered Nurse Type: ED Notes Filed: 10/27/2024 15:48 Note Text: Patient brought to ED by EMS. Lives at home with his son and daughter in law. Daughter reported to EMS that patient has become increasingly confused, verbally combative with family and hallucinating seeing family members that aren't there and talking to them. Patient apparently gets UTIs once a month. ED NOTE Observed: 10/27/2024 3:42 PM Status: COMPLETED Source: [facility] HNO ID: [id number] Author: SANDRA PENN RN Service: ? Author Type: Registered Nurse Type: ED Notes Filed: 10/27/2024 15:42 Note Text: Bed: ED-04 Expected date: 10/27/24 Expected time: 3:35 PM Means of arrival: [employer] [employer]/EMS Comments: Mental status change URINALYSIS COMPLETE PNL UR Collected: 10/27/2024 10:0 0 AM Status: F Source: [facility] Order Comment: Specimen Type : URINE SPECIMEN Ordering Facility: [facility] Address: [address] [place] [address] TYPE CODE TESTS RESULT OUT OF RANGE REFERENCE UNITS LAB 5778-6(LOINC) Color Ur Light Yellow yellow LAB 12906-3(LOINC) Clarity Spec Turbid Abnormal Clear LAB 5792-7(LOINC) Glucose Ur Strip-mCnc Negative Trace, Negative LAB 5770-3(LOINC) Bilirub Ur Ql Strip Negative Negative LAB 2514-8(LOINC) Ketones Ur Strip Negative Negative, Trace LAB 5811-5(LOINC) Sp Gr Ur Strip 1.011 1.005-1.030 LAB 5794-3(LOINC) Hgb Ur Ql Strip 2+ Abnormal Negative, Trace LAB 5803-2(LOINC) pH Ur Strip 6.5 5.0-8.0 LAB 5804-0(LOINC) Prot Ur Strip-mCnc 1+ Abnormal Trace, Negative LAB 5818-0(LOINC) Urobilinogen Ur Strip Normal Normal LAB 5802-4(LOINC) Nitrite Ur Ql Strip 2+ Abnormal Negative LAB 5799-2(LOINC) Leukocyte esterase Ur Ql Strip 500 Michelle/uL Abnormal Negative, 25 Michelle/uL LAB 5821-4(LOINC) WBC #/area UrnS HPF >25 /HPF Abnormal 0-5 /HPF LAB 75267-1(LOINC) RBC #/area UrnS HPF 11-25 /HPF Abnormal 0-3 /HPF LAB 5769-5(LOINC) Bacteria #/area UrnS HPF Few Abnormal None Seen /HPF LAB 5796-8(LOINC) Hyaline Casts #/area UrnS LPF 1-3 /LPF Abnormal 0 /LPF Performed By: #### 80779-7 # ### [id number] [address] OF [facility] BACTERIA UR CULT Observed: 10/27/2024 10:00 AM Status: F Source: [facility] ORGANISM ID: 2 >=100,000 CFU/ml Enterobacter cloacae complex Two morphologically different colony types ORGANISM ID: 2 (ENTEROBACTER CLOACAE COMPLEX) ----- ----- ANTIBIOTIC INTERPRETATION REGAN STATUS REFERENCE RANGE ----- ----- Ampicillin R 16 F Cefepime S <=1 F Susceptible <=2 , Susceptible-Dose Dependent >2 , Resistant >=16 Ertapenem S <=0.25 F Susceptible <=0.5 , Intermediate >.5 , Resistant >1 Meropenem S <=0.5 F Susceptible <=1 , Intermediate >1 , Resistant >2 Aztreonam S <=2 F Susceptible <=4 , Intermediate >4 , Resistant >=16 Ampicillin/Sulbact R >16 F Piperacillin/Tazobac SDD 16 F Gentamicin S <=2 F Susceptible <=2 , Intermediate >2 , Resistant >4 Trimeth sulfameth S <=0.5 F Ciprofloxacin S <=0.25 F Susceptible <0.5 , Intermediate >=.5 , Resistant >=1 Nitrofurantoin R >64 F Susceptible <=32 , Intermediate >32 , Resistant >64 Performed By: #### 630-4 ### # [facility] CLIA [id number] [address] OF [facility] JOSE DAVID Observed: 09/22/2024 12:00 AM Status: COMPLETED Source: [facility] Telephone (InvestCloudAM) EMELIA JOHNSON ([id number]) 1950 M Date Time Provider Department 09/22/24 JENAE SANTAMARIA AGS During your visit today, we recorded the following information about you: Jenae Santamaria MD 09/22/2024 5:59 PM Signed I called patient to ask patient about UTI symptoms. Per son, patient's urine has been more foul smelling and urine obtained from straight cath. Sent abx to patient's pharmacy based on urine clx results MD Hema Jensen Amanda, MA 09/25/2024 10:53 AM Signed Noted Allergies As of Date: 09/22/2024 Noted Allergy Reaction LIPITOR (ATORVASTATIN) 11/17/2013 14 - Other: See Comments Comments: body aches Date Reviewed: 09/15/2024 Reviewed by: Janette Brizuela MA - Fully Assessed Reason for Visit: Results [95] Primary Visit Diagnosis:Urinary tract infection associated with indwelling urethral catheter, initial encounter [T83.511A, N39.0] Order(s):sulfamethoxazole-trimethoprim (BACTRIM DS) 800-160 mg per tabletTake 1 tablet by mouth two times a day for 7 days.Disp: 14 tabletRfl: 0 Prescriptions as of 09/25/2024 - sulfamethoxazole-trimethoprim (BACTRIM DS) 800-160 mg per tablet Take 1 tablet by mouth two times a day for 7 days. - levothyroxine (SYNTHROID) 175 mcg tablet Take 1 tablet by mouth daily before breakfast. - rosuvastatin (CRESTOR) 10 mg tablet Take 1 tablet by mouth daily at bedtime. - ferrous sulfate 325 mg (65 mg iron) tablet Take 1 tablet by mouth every other day. - bvmxgpximij-hgndbknlb-hksptwnr (TRELEGY ELLIPTA) 100-62.5-25 mcg inhalation powder Inhale 1 puff as instructed once daily. - linaGLIPtin (TRADJENTA) 5 mg tab Take 1 tablet by mouth once daily. - pantoprazole DR (PROTONIX) 40 mg tablet Take 1 tablet by mouth two times a day. - ergocalciferol 50,000 unit capsule (VITAMIN D2, DRISDOL) TAKE 1 CAPSULE BY MOUTH ONE TIME A WEEK. - amLODIPine (NORVASC) 5 mg tablet TAKE 1 TABLET BY MOUTH EVERY DAY - loratadine (CLARITIN) 10 mg tablet TAKE 1 TABLET BY MOUTH EVERY DAY - icosapent ethyl (VASCEPA) 1 gram capsule Take 2 capsules by mouth two times a day. - ELIQUIS 5 mg tab(s) Take 1 tablet by mouth two times a day. - finasteride (PROSCAR) 5 mg tablet Take 1 tablet by mouth once daily. - aspirin, enteric coated (ASPIRIN, ENTERIC COATED) 81 mg EC tablet Take 1 tablet by mouth once daily. - albuterol HFA (PROVENTIL HFA) 90 mcg/actuation inhaler Inhale 1-2 Puffs as instructed four times a day as needed for wheezing/shortness of breath. - fluticasone (FLONASE) 50 mcg/actuation nasal spray SPRAY 1 SPRAY INTO EACH NOSTRIL AT BEDTIME - Blood Pressure Test Kit-Large (NextDocs BP MONITOR) 1 Each two times a day. - flash glucose sensor (ChoozleSTYLE HEMA 14 DAY SENSOR) kit 1 Each four times daily. - Fenofibrate 160 mg tablet Take 1 tablet by mouth once daily. 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 02/08/2020 Atherosclerosis of [place] artery of extremity w*11/21/2013 Other hyperlipidemia [E78.49] Unspecified hypothyroidism [E03.9] Smoker [F17.200] 01/27/2015 Chronic ischemic right MCA stroke [Z86.73] 02/08/2020 CAD (coronary artery disease), [place] coronary *12/27/2013 Postprocedural hypotension [I95.81] 12/27/2013 09/25/2020 Stress hyperglycemia [R73.9] 12/27/2013 01/27/2015 Hypoxia [R09.02] 12/27/2013 12/28/2013 Acute blood loss anemia [D62] 12/30/2013 01/27/2015 Acute post-operative pain [G89.18] 01/03/2014 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] 01/03/2020 Embolic stroke involving right carotid artery (*02/08/2020 Symptomatic carotid artery stenosis [I65.29] 02/13/2020 BPH (benign prostatic hyperplasia) [N40.0] CKD (chronic kidney disease) stage 3, GFR 30-59* 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* Hemorrhoids [K64.9] Psoriasis [L40.9] Former smoker [Z87.891] AAA (abdominal aortic aneurysm) without rupture* 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 History of right-sided carotid endarterectomy [*03/13/2020 History of CVA (cerebrovascular accident) [Z86.*09/12/2020 Carotid artery disease (HCC) [I77.9] 09/12/2020 09/24/2020 Rectal cancer (HCC) [C20] 09/23/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HCC) [Z93.3] 09/23/2020 Acute postoperative respiratory insufficiency [*09/23/2020 10/18/2020 Metabolic acidosis [E87.20] 09/23/2020 09/24/2020 Electrolyte abnormality [E87.8] 09/23/2020 Hypoalbuminemia [E88.09] 09/24/2020 09/30/2020 Obesity, Class I, BMI 30-34.9 [E66.811] 09/26/2020 Essential (primary) hypertension [I10] 09/27/2020 Delirium [R41.0] 09/30/2020 10/18/2020 Idiopathic hypotension [I95.0] 09/30/2020 10/18/2020 Abnormal urinalysis [R82.90] 10/02/2020 Moderate protein-calorie malnutrition (HCC) [E4*10/03/2020 Postoperative ileus (HCC) [K91.89, K56.7] 10/04/2020 10/18/2020 On total parenteral nutrition (TPN) [Z78.9] 10/08/2020 10/13/2020 Peripherally inserted central catheter (PICC) i*10/08/2020 10/18/2020 Postoperative urinary retention [N99.89, R33.8] 10/08/2020 Hyponatremia [E87.1] 10/08/2020 10/18/2020 Urinary tract infection associated with indwell*10/13/2020 Prescriptions ordered this encounter Disp Refills Start End SULFAMETHOXAZOLE 800 MG-TRIMETHOPRIM* 14 t* 0 09/22/2024 09/29/2024 Route: PO Sig: Take 1 tablet by mouth two times a day for 7 days. Encounter Status:Closed by JENAE SANTAMARIA on 09/22/24 URINALYSIS, REFLEX MICROSCOPIC Collected: 09/20/2024 10:30 AM Status: F Source: [facility] Order Comment: Specimen Type : URINE SPECIMEN Ordering Facility: [facility] Address: [address] [place] [address] TYPE CODE TESTS RESULT OUT OF RANGE REFERENCE UNITS LAB 5778-6(LOINC) Color Ur Yellow Yellow LAB 62003-4(LOINC) Clarity Spec Slightly Cloudy Abnormal Clear LAB 5792-7(LOINC) Glucose Ur Strip-mCnc Negative Negative LAB 5770-3(LOINC) Bilirub Ur Ql Strip Negative Negative LAB 2514-8(LOINC) Ketones Ur Strip Negative Negative LAB 5811-5(LOINC) Sp Gr Ur Strip 1.015 1.005-1.030 LAB 5794-3(LOINC) Hgb Ur Ql Strip 3+ Abnormal Negative LAB 5803-2(LOINC) pH Ur Strip 6.5 5.0-8.0 LAB 5804-0(LOINC) Prot Ur Strip-mCnc 2+ Abnormal Negative LAB 5818-0(LOINC) Urobilinogen Ur Strip 0.2 EU/dL 0.2 EU/dL, 1.0 EU/dL LAB 5802-4(LOINC) Nitrite Ur Ql Strip Positive Abnormal Negative LAB 5799-2(LOINC) Leukocyte esterase Ur Ql Strip 3+ Abnormal Negative LAB 5821-4(LOINC) WBC #/area UrnS HPF >25 /HPF Abnormal 0-5 /HPF LAB 95504-3(LOINC) RBC #/area UrnS HPF >25 /HPF Abnormal 0-3 /HPF LAB 5769-5(LOINC) Bacteria #/area UrnS HPF Many Abnormal None Seen /HPF LAB 5787-7(LOINC) Epi Cells #/area UrnS HPF Few /HPF Result Comment: Few Performed By: #### [id number], 630-4 #### [facility] CLIA [id number] [address] [place] BACTERIA UR CULT Observed: 09/20/2024 10:30 AM Status: F Source: [facility] ORGANISM ID: 1 >=100,000 CFU/ml Enterobacter cloacae complex ORGANISM ID: 1 (ENTEROBACTER CLOACAE COMPLEX) ----- ----- ANTIBIOTIC INTERPRETATION REGAN STATUS REFERENCE RANGE ----- ----- Ampicillin R 16 F Cefepime S <=1 F Susceptible <=2 , Susceptible-Dose Dependent >2 , Resistant >=16 Ertapenem S <=0.25 F Susceptible <=0.5 , Intermediate >.5 , Resistant >1 Meropenem S <=0.5 F Susceptible <=1 , Intermediate >1 , Resistant >2 Aztreonam S <=2 F Susceptible <=4 , Intermediate >4 , Resistant >=16 Ampicillin/Sulbact R >16 F Piperacillin/Tazobac SDD 16 F Gentamicin S <=2 F Susceptible <=2 , Intermediate >2 , Resistant >4 Trimeth sulfameth S <=0.5 F Ciprofloxacin S <=0.25 F Susceptible <0.5 , Intermediate >=.5 , Resistant >=1 Nitrofurantoin R >64 F Susceptible <=32 , Intermediate >32 , Resistant >64 Performed By: #### [id number], 630-4 #### [facility] [id number] [address] OF [facility] JOSE DAVID Observed: 09/18/2024 12:00 AM Status: COMPLETED Source: [facility] Telephone (UROLWS) EMELIA JOHNSON ([id number]) 1950 M Date Time Provider Department 09/18/24 YVONNE ACEVEDO During your visit today, we recorded the following information about you: Erin Osborne LPN 09/18/2024 5:00 PM Signed Called patient. Verified name and date of . Patient reports appointment tomorrow follow up from [facility] with multiple visits but is unable to make appointment due to transportation person sick. Offered to reschedule appointment but states they will call once they know schedule of transportation person. BUNNY Shipley Kimberly, LPN 09/20/2024 8:23 AM Signed [facility]axed [facility] [facility] for records from June to present to have on file. BUNNY Shipley Kimberly, LPN 09/20/2024 4:56 PM Signed Received records via [employer]- uploaded to [employer]. Erin Osborne LPN Allergies As of Date: 09/18/2024 Noted Allergy Reaction LIPITOR (ATORVASTATIN) 11/17/2013 14 - Other: See Comments Comments: body aches Date Reviewed: 09/15/2024 Reviewed by: Janette Brizuela MA - Fully Assessed Reason for Visit: Appointment [186] Prescriptions as of 09/20/2024 - levothyroxine (SYNTHROID) 175 mcg tablet Take 1 tablet by mouth daily before breakfast. - rosuvastatin (CRESTOR) 10 mg tablet Take 1 tablet by mouth daily at bedtime. - ferrous sulfate 325 mg (65 mg iron) tablet Take 1 tablet by mouth every other day. - egwbtwafvpg-tgbtkstwa-nmobkyoo (TRELEGY ELLIPTA) 100-62.5-25 mcg inhalation powder Inhale 1 puff as instructed once daily. - linaGLIPtin (TRADJENTA) 5 mg tab Take 1 tablet by mouth once daily. - pantoprazole DR (PROTONIX) 40 mg tablet Take 1 tablet by mouth two times a day. - ergocalciferol 50,000 unit capsule (VITAMIN D2, DRISDOL) TAKE 1 CAPSULE BY MOUTH ONE TIME A WEEK. - amLODIPine (NORVASC) 5 mg tablet TAKE 1 TABLET BY MOUTH EVERY DAY - loratadine (CLARITIN) 10 mg tablet TAKE 1 TABLET BY MOUTH EVERY DAY - icosapent ethyl (VASCEPA) 1 gram capsule Take 2 capsules by mouth two times a day. - ELIQUIS 5 mg tab(s) Take 1 tablet by mouth two times a day. - finasteride (PROSCAR) 5 mg tablet Take 1 tablet by mouth once daily. - aspirin, enteric coated (ASPIRIN, ENTERIC COATED) 81 mg EC tablet Take 1 tablet by mouth once daily. - albuterol HFA (PROVENTIL HFA) 90 mcg/actuation inhaler Inhale 1-2 Puffs as instructed four times a day as needed for wheezing/shortness of breath. - fluticasone (FLONASE) 50 mcg/actuation nasal spray SPRAY 1 SPRAY INTO EACH NOSTRIL AT BEDTIME - Blood Pressure Test Kit-Large ([employer] BP MONITOR) 1 Each two times a day. - flash glucose sensor (FREESTYLE HEMA 14 DAY SENSOR) kit 1 Each four times daily. - Fenofibrate 160 mg tablet Take 1 tablet by mouth once daily. 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 02/08/2020 Atherosclerosis of [place] artery of extremity w*11/21/2013 Other hyperlipidemia [E78.49] Unspecified hypothyroidism [E03.9] Smoker [F17.200] 01/27/2015 Chronic ischemic right MCA stroke [Z86.73] 02/08/2020 CAD (coronary artery disease), [place] coronary *12/27/2013 Postprocedural hypotension [I95.81] 12/27/2013 09/25/2020 Stress hyperglycemia [R73.9] 12/27/2013 01/27/2015 Hypoxia [R09.02] 12/27/2013 12/28/2013 Acute blood loss anemia [D62] 12/30/2013 01/27/2015 Acute post-operative pain [G89.18] 01/03/2014 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] 01/03/2020 Embolic stroke involving right carotid artery (*02/08/2020 Symptomatic carotid artery stenosis [I65.29] 02/13/2020 BPH (benign prostatic hyperplasia) [N40.0] CKD (chronic kidney disease) stage 3, GFR 30-59* 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* Hemorrhoids [K64.9] Psoriasis [L40.9] Former smoker [Z87.891] AAA (abdominal aortic aneurysm) without rupture* 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 History of right-sided carotid endarterectomy [*03/13/2020 History of CVA (cerebrovascular accident) [Z86.*09/12/2020 Carotid artery disease (HCC) [I77.9] 09/12/2020 09/24/2020 Rectal cancer (HCC) [C20] 09/23/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HCC) [Z93.3] 09/23/2020 Acute postoperative respiratory insufficiency [*09/23/2020 10/18/2020 Metabolic acidosis [E87.20] 09/23/2020 09/24/2020 Electrolyte abnormality [E87.8] 09/23/2020 Hypoalbuminemia [E88.09] 09/24/2020 09/30/2020 Obesity, Class I, BMI 30-34.9 [E66.811] 09/26/2020 Essential (primary) hypertension [I10] 09/27/2020 Delirium [R41.0] 09/30/2020 10/18/2020 Idiopathic hypotension [I95.0] 09/30/2020 10/18/2020 Abnormal urinalysis [R82.90] 10/02/2020 Moderate protein-calorie malnutrition (HCC) [E4*10/03/2020 Postoperative ileus (HCC) [K91.89, K56.7] 10/04/2020 10/18/2020 On total parenteral nutrition (TPN) [Z78.9] 10/08/2020 10/13/2020 Peripherally inserted central catheter (PICC) i*10/08/2020 10/18/2020 Postoperative urinary retention [N99.89, R33.8] 10/08/2020 Hyponatremia [E87.1] 10/08/2020 10/18/2020 Urinary tract infection associated with indwell*10/13/2020 Encounter Status:Closed by ERIN OSBORNE on 09/19/24 CNOVSP Observed: 09/15/2024 11:20 AM Status: COMPLETED Source: [facility] Visit (SP) Office ([place]) EMELIA JOHNSON ([id number]) 1950 M Date Time Provider Department 09/15/24 11:20 AM BRIAN CUMMINGS HEMBA During your visit today, we recorded the following information about you: Temperature Pulse Blood pressure Height 98.4 degrees 61/minute 125/70 1.702 m Brian Cummings MD 09/15/2024 3:07 PM Signed Emelia Johnson 1950 September 15, 2024 Diagnosis: Stage IIA (pT3c N0 M0) rectal adenocarcinoma, 2019. s/p concurrent chemotherapy and radiation followed by abdominoperineal resection with permanent colostomy. Received 3 cycles of adjuvant FOLFOX, further treatment was canceled due to sepsis, ICU hospitalization and thereafter poor performance status. HPI: Emelia Johnson is a 74 year old male who presents today to establish oncology care for history of stage IIA rectal cancer, diagnosed in 2019. He received treatment in [facility]. He has multiple comorbidities including CVA requiring Coumadin therapy. Presented with recurrent rectal bleeding and diarrhea. 01/05/2020- Colonoscopy (Dr. Reddy). Rectal prolapse. A palpable mass starting approximately 5 cm, firm, somewhat thick. Mass extended from 5 cm to approximately 10 cm with 2-3 cm with multiple biopsies were obtained Pathology: Rectal mass biopsy villous adenoma with extensive severe dysplasia and microscopic foci suspicious for invasive adenocarcinoma, low grade (grades 1-2 of 3). 02/27/2020- Colonoscopy (Dr. Reddy). Rectal masses extending from anal verge approximately 5-6 cm. Multiple biopsies obtained. Pathology: MODERATELY DIFFERENTIATED INFILTRATING ADENOCARCINOMA. 03/19/[address]- 1. 4.5 cm hypermetabolic ulcerated mass along the left lateral aspect of the rectal vault consistent with primary rectal/colon carcinoma. There is no evidence of local penelope spread or distant metastatic malignancy. 2. Severe left renal atrophy. The left kidney is nonfunctioning. 3. Moderate bladder distention with fairly large, 6 cm left posterior bladder diverticulum. 4. Mild cardiomegaly and ASCVD with postoperative changes of aortobifemoral bypass grafting. 5. Uncomplicated colonic diverticulosis. 6. Uncomplicated cholelithiasis. 7. Asymmetric right-sided laryngeal activity likely due to phonation after injection. 04/08/2020 - 05/13/2020: Fluorouracil continuous infusion + radiation. Completed preoperative concurrent chemoradiotherapy for a low lying rectal moderately differentiated adenocarcinoma. 07/10/2020: Colonoscopy. Digital rectal exam revealed a mass posteriorly at approximately 6-7 cm from the anal verge that was flat and quite mobile; Unable to resect the mass transanally nor with the Tamis port. Patient was therefore discussed regarding the role of low-anterior resection vs abdominoperineal resection. Patient was seen at [facility] by Dr. Gordon Martinez. 08/09/2020 MRI Rectum- 2.4 cm low rectal tumor as described, without extension into the mesorectal fat. This is predominantly fibrotic although suspect minimal residual viable tumor based on diffusion-weighted imaging. Additional polypoid mass arising from the anterior aspect of the upper anal canal. 09/23/2020: Exploratory laparotomy, mobilization of left colon and splenic flexure, resection of left colon and entire rectum with intersphincteric abdominoperineal rectal resection and excision, omental pedicle flap, creation of end colostomy, comprehensive adhesiolysis. Final pathology report shows: - Surgical approach: Open - En bloc resection: None - Metastasectomy: None - Final pathology stage: ypT3N0 - Lymph nodes involved/examined: 0/12 - Lymphovascular or perineural invasion: No - Circumferential margin: Negative - Distal margin: clear - Mesorectal grade: Nearly complete - AJCC tumor regression grade: no regression - MMR status: proficient - Adjuvant therapy recommended: No 12/31/2020: Cycle 1 FOLFOX 6 modified (adjuvant) Q 2 weeks 01/14/2021: Cycle 2 FOLFOX 6 modified 01/28/2021: Cycle 3 FOLFOX 6 modified Between January 2021 and August 2021 patient hospitalized with concerns for sepsis with critical illness myopathy and generalized weakness and therefore adjuvant treatment had been held. Interval History: Patient is referred back per PCP Dr. Santamaria for follow-up of history of rectal cancer. He was last seen 05/27/2023. He is accompanied by his son today. He was admitted 07/01/2024 to 07/07/2024 for urosepsis Worsening LLE swelling with venous duplex negative for DVT. Blood cultures were negative but urine culture grew MRSA. He underwent arch aortogram with angioplasty and stent placement of L profundofemoral artery on 07/06/2024. EGD on 07/04/2024 showed severe erosive esophagitis. He was admitted 07/13/2024 to 07/20/2024 due to GI bleeding. No unintentional weight loss, fever, headache, chest pain, shortness of breath, nausea, vomiting, abdominal pain. PAST MEDICAL HISTORY Diagnosis Date Abdominal aneurysm without mention of rupture Aneurysm - Abdominal Aorta Atherosclerosis of [place] arteries of the extremities with intermittent claudication ASO - Extremities AND Claudication CAD (coronary artery disease) Coronary artery disease Cancer (HCC) Chronic obstructive pulmonary disease, unspecified COPD type ([facility]) CKD (chronic kidney disease) stage 3, GFR 30-59 ml/min (HCC) Colon cancer (HCC) Depression Diabetes (HCC) Dyslipidemia Former smoker quit 2 weeks ago History of aorto-femoral bypass History of rectal cancer Hydronephrosis of right kidney Hyperlipidemia Hypertension Hypertrophy of prostate with urinary obstruction and other lower urinary tract symptoms (LUTS) Hypertrophy of the prostate with obstruction Neurogenic bladder Obesity Occlusion and stenosis of carotid artery with cerebral infarction ASO - Carotid W/O Infarction Other psoriasis and similar disorders Psoriasis Retention of urine Stage 3a chronic kidney disease (HCC) Stroke (cerebrum) ([facility]) residual L sided weakness 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 rupture, 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 90 tablet 0 rosuvastatin (CRESTOR) 10 mg tablet Take 1 tablet by mouth daily at bedtime. 90 tablet 1 mbzgvtzwutk-ybzcazdwv-opdljwzz (TRELEGY ELLIPTA) 100-62.5-25 mcg inhalation powder Inhale 1 puff as instructed once daily. 60 each 5 linaGLIPtin (TRADJENTA) 5 mg tab Take 1 tablet by mouth once daily. [address] (PROTONIX) 40 mg tablet Take 1 tablet by mouth two times a day. 180 tablet 1 ergocalciferol 50,000 unit capsule (VITAMIN D2, DRISDOL) TAKE 1 CAPSULE BY MOUTH ONE TIME A WEEK. 12 capsule 0 amLODIPine (NORVASC) 5 mg tablet TAKE 1 TABLET BY MOUTH EVERY DAY 90 tablet 1 loratadine (CLARITIN) 10 mg tablet TAKE 1 TABLET BY MOUTH EVERY DAY 90 tablet 1 icosapent ethyl (VASCEPA) 1 gram capsule Take 2 capsules by mouth two times a day. 240 capsule 5 finasteride (PROSCAR) 5 mg tablet Take 1 tablet by mouth once daily. 90 tablet 1 albuterol HFA (PROVENTIL HFA) 90 mcg/actuation inhaler Inhale 1-2 Puffs as instructed four times a day as needed for wheezing/shortness of breath. 6.7 g 2 fluticasone (FLONASE) 50 mcg/actuation nasal spray SPRAY 1 SPRAY INTO EACH NOSTRIL AT BEDTIME 48 mL 1 Blood Pressure Test Kit-Large ([employer] BP MONITOR) 1 Each two times a day. 1 Each 0 flash glucose sensor (FREESTYLE HEMA 14 DAY SENSOR) kit 1 Each four times daily. 1 Kit 2 Fenofibrate 160 mg tablet Take 1 tablet by mouth once daily. 0 iv contrast (will be provided with radiology test) CT Chest ABD/PEL-Inject, intravenously, once for 1 dose.No IV access, insert saline lock prior to the beginning of sedation, infusion, injection of imaging exam. Discontinue saline lock post exam. If Pt. has a central line or IVAD, may access for administration according to line specific nursing protocol. Once exam is complete flush line and de-access according to line specific nursing protocol in the CT contrast administration guidelines link. 1 each 0 enteric contrast (will be provided with radiology test) For CT CHESTABD/PEL W IVCON Routine order Administer, As Directed One Time Only, via Oral, Rectal, both Oral and Rectal, Enteric Tube, Stoma or Indwelling Catheter, Enteric Contrast as designated per enteric contrast guidelines 1 each 0 ferrous sulfate 325 mg (65 mg iron) tablet Take 1 tablet by mouth every other day. (Patient not taking: Reported on 09/07/2024) 30 tablet 3 ELIQUIS 5 mg tab(s) Take 1 tablet by mouth two times a day. (Patient not taking: Reported on 08/22/2024) 180 tablet 2 aspirin, enteric coated (ASPIRIN, ENTERIC COATED) 81 mg EC tablet Take 1 tablet by mouth once daily. (Patient not taking: Reported on 08/22/2024) 90 tablet 1 No current facility-administered medications for this visit. ALLERGIES Allergen Reactions Lipitor [Atorvastat* Other: See Comments body aches FAMILY HISTORY Problem Relation Age of Onset Diabetes Father Stroke ( age 89) Diabetes Mother Stroke ( age 88) Stroke Mother Diabetes Sister Brain ( age 64) Diabetes Brother other (Old Age) Maternal Grandmother age 98 Diabetes Maternal Grandfather No Ocular Disease No Family History Social History Tobacco Use Smoking status: Former Current packs/day: 0.00 Average packs/day: 3.0 packs/day for 50.0 years (150.0 ttl pk-yrs) Types: Cigars, Cigarettes Start date: 10/28/1963 Quit date: 10/27/2013 Years since quittin.8 Smokeless tobacco: Never Vaping Use Vaping status: Never Used Substance Use Topics Alcohol use: No Drug use: No I have confirmed and edited as necessary, the PFSH and ROS obtained by others on 09/15/2024. Review of Systems: All systems reviewed on 09/15/2024 with pertinent positives and negatives as outlined in HPI or interval history. 09/15/24 1107 BP: 125/70 Pulse: 61 Temp: 36.9 ?C (98.4 ?F) TempSrc: Tympanic SpO2: 95% Height: 170.2 cm (5' 7) Body mass index is 27.88 kg/m?. Physical Exam: ECOG PS: 2-3 General: Chronically ill, NAD. HEENT: Normocephalic, no sclera icterus. Neck: Supple. Chest: Clear bilaterally, not labored. Heart: Normal S1 and S2, RRR Abdomen: Soft, nontender, nondistended, bowel sounds present. + Ostomy. + Urinary catheter. Extremities: BLE edema, L>R with mild erythema. Neurological: Grossly intact. Skin: No rashes or jaundice. Nodes: No palpable adenopathy in the cervical, supraclavicular, or axillary regions. Psychiatric: Alert and oriented x3. Appropriate mood and affect. Labs WBC (k/uL) Date Value 08/22/2024 6.59 RBC (m/uL) Date Value 08/22/2024 4.40 Hemoglobin (g/dL) Date Value 08/22/2024 13.0 Hematocrit (%) Date Value 08/22/2024 44.4 MCV (fL) Date Value 08/22/2024 100.9 (H) MCH (pg) Date Value 08/22/2024 29.5 MCHC (g/dL) Date Value 08/22/2024 29.3 (L) RDW-CV (%) Date Value 08/22/2024 17.4 (H) Platelet Count (k/uL) Date Value 12/10/2023 145 (L) MPV (fL) Date Value 08/22/2024 13.0 (H) Glucose (mg/dL) Date Value 08/22/2024 88 BUN (mg/dL) Date Value 08/22/2024 13 Creatinine (mg/dL) Date Value 08/22/2024 1.47 (H) Sodium (mmol/L) Date Value 08/22/2024 140 Potassium (mmol/L) Date Value 08/22/2024 4.2 Chloride (mmol/L) Date Value 08/22/2024 104 CO2 (mmol/L) Date Value 08/22/2024 22 Protein, Total (g/dL) Date Value 04/15/2024 7.6 Albumin (g/dL) Date Value 08/22/2024 3.8 (L) Calcium, Total (mg/dL) Date Value 08/22/2024 9.5 Alkaline Phosphatase (U/L) Date Value 04/15/2024 83 Bilirubin, Total (mg/dL) Date Value 04/15/2024 0.4 AST (U/L) Date Value 04/15/2024 23 ALT (U/L) Date Value 04/15/2024 17 Cholesterol, Total (mg/dL) Date Value 08/22/2024 79 Triglyceride (mg/dL) Date Value 08/22/2024 145 Assessment/Plan: 1. Stage IIA (pT3c N0 M0) rectal adenocarcinoma, diagnosed in 2019. - s/p concurrent chemotherapy and radiation followed by abdominoperineal resection with permanent colostomy on 09/23/2020. - Received 3 cycles of adjuvant FOLFOX, further treatment was canceled due to sepsis and poor performance status. - CEA 4 on 05/01/23 --> 3.9 on 08/22/24. Schedule surveillance CT scans at [place]. - Discussed cancer survivorship care planning. 2. CKD stage 3. - Mildly elevated total protein. - SPEP and MPA on 06/08/2023 showed no M protein, mildly elevated kappa and lambda free light chains with normal K/L ratio. 3. History of GI bleeding. - EGD on 07/04/2024 showed severe erosive esophagitis. - Normal hemoglobin 08/22/24. Continue PPI. Follow CT scan results. Call for questions or concerns. Brian Cummings MD Some elements copied from my notes 05/27/2023, including the physical exam completed in entirety today, have been reviewed and updated where appropriate. All reflect current assessment and medical decision making during today's encounter, 09/15/2024. Medical Decision Making: Problems: Moderate: 1+ chronic illnesses with change Data: Unique source(s) for external note(s) reviewed: 1 Unique test result(s) reviewed: 3+ Unique test(s) ordered: 2 Medical Decision Making Level: 4 - Moderate Referring Provider: JENAE SANTAMARIA [[id number]] Allergies As of Date: 09/15/2024 Noted Allergy Reaction LIPITOR (ATORVASTATIN) 11/17/2013 14 - Other: See Comments Comments: body aches Date Reviewed: 09/15/2024 Reviewed by: Janette Brizuela MA - Fully Assessed Reason for Visit: Established Patient [175] Cmt: ov f/u seen Dr Cummings 2023 ref back from Jenae Santamaria for hx of rectal ca Primary Visit Diagnosis:History of rectal cancer [Z85.048] Other Visit Diagnoses:Stage 3 chronic kidney disease, unspecified whether stage 3a or 3b CKD (HCC) [N18.30] Upper GI bleed [K92.2] Order(s):CONSULT TO ONCOLOGY [9038] Order #: [id number]: 1 CT ABD/PEL W IVCON [[id number]] Order #: [id number] FUTURE CT CHEST W IVCON [[id number]] Order #: [id number] FUTURE iv contrast (will be provided with radiology test)CT Chest ABD/PEL-Inject, intravenously, once for 1 dose.No IV access, insert saline lock prior to the beginning of sedation, infusion, injection of imaging exam. Discontinue saline lock post exam. If Pt. has a central line or IVAD, may access for administration according to line specific nursing protocol. Once exam is complete flush line and de-access according to line specific nursing protocol in the CT contrast administration guidelines link.Disp: 1 eachRfl: 0 enteric contrast (will be provided with radiology test)For CT CHESTABD/PEL W IVCON Routine order Administer, As Directed One Time Only, via Oral, Rectal, both Oral and Rectal, Enteric Tube, Stoma or Indwelling Catheter, Enteric Contrast as designated per enteric contrast guidelinesDisp: 1 eachRfl: 0 Prescriptions as of 09/15/2024 - iv contrast (will be provided with radiology test) CT Chest ABD/PEL-Inject, intravenously, once for 1 dose.No IV access, insert saline lock prior to the beginning of sedation, infusion, injection of imaging exam. Discontinue saline lock post exam. If Pt. has a central line or IVAD, may access for administration according to line specific nursing protocol. Once exam is complete flush line and de-access according to line specific nursing protocol in the CT contrast administration guidelines link. - enteric contrast (will be provided with radiology test) For CT CHESTABD/PEL W IVCON Routine order Administer, As Directed One Time Only, via Oral, Rectal, both Oral and Rectal, Enteric Tube, Stoma or Indwelling Catheter, Enteric Contrast as designated per enteric contrast guidelines - levothyroxine (SYNTHROID) 175 mcg tablet Take 1 tablet by mouth daily before breakfast. - rosuvastatin (CRESTOR) 10 mg tablet Take 1 tablet by mouth daily at bedtime. - ferrous sulfate 325 mg (65 mg iron) tablet Take 1 tablet by mouth every other day. - tvamzpweklt-swcyhchdl-ltkacotk (TRELEGY ELLIPTA) 100-62.5-25 mcg inhalation powder Inhale 1 puff as instructed once daily. - linaGLIPtin (TRADJENTA) 5 mg tab Take 1 tablet by mouth once daily. - pantoprazole DR (PROTONIX) 40 mg tablet Take 1 tablet by mouth two times a day. - ergocalciferol 50,000 unit capsule (VITAMIN D2, DRISDOL) TAKE 1 CAPSULE BY MOUTH ONE TIME A WEEK. - amLODIPine (NORVASC) 5 mg tablet TAKE 1 TABLET BY MOUTH EVERY DAY - loratadine (CLARITIN) 10 mg tablet TAKE 1 TABLET BY MOUTH EVERY DAY - icosapent ethyl (VASCEPA) 1 gram capsule Take 2 capsules by mouth two times a day. - ELIQUIS 5 mg tab(s) Take 1 tablet by mouth two times a day. - finasteride (PROSCAR) 5 mg tablet Take 1 tablet by mouth once daily. - aspirin, enteric coated (ASPIRIN, ENTERIC COATED) 81 mg EC tablet Take 1 tablet by mouth once daily. - albuterol HFA (PROVENTIL HFA) 90 mcg/actuation inhaler Inhale 1-2 Puffs as instructed four times a day as needed for wheezing/shortness of breath. - fluticasone (FLONASE) 50 mcg/actuation nasal spray SPRAY 1 SPRAY INTO EACH NOSTRIL AT BEDTIME - Blood Pressure Test Kit-Large ([employer] BP MONITOR) 1 Each two times a day. - flash glucose sensor (FREESTYLE HEMA 14 DAY SENSOR) kit 1 Each four times daily. - Fenofibrate 160 mg tablet Take 1 tablet by mouth once daily. Problem List As Of Date 09/15/2024 Noted Resolved 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*11/21/2013 02/08/2020 Atherosclerosis of [place] artery of extremity w*11/21/2013 Other hyperlipidemia [E78.49] Unspecified hypothyroidism [E03.9] Smoker [F17.200] 01/27/2015 Chronic ischemic right MCA stroke [Z86.73] 02/08/2020 CAD (coronary artery disease), [place] coronary *12/27/2013 Postprocedural hypotension [I95.81] 12/27/2013 09/25/2020 Stress hyperglycemia [R73.9] 12/27/2013 01/27/2015 Hypoxia [R09.02] 12/27/2013 12/28/2013 Acute blood loss anemia [D62] 12/30/2013 01/27/2015 Acute post-operative pain [G89.18] 01/03/2014 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] 01/03/2020 Embolic stroke involving right carotid artery (*02/08/2020 Symptomatic carotid artery stenosis [I65.29] 02/13/2020 BPH (benign prostatic hyperplasia) [N40.0] CKD (chronic kidney disease) stage 3, GFR 30-59* 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* Hemorrhoids [K64.9] Psoriasis [L40.9] Former smoker [Z87.891] AAA (abdominal aortic aneurysm) without rupture* 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 History of right-sided carotid endarterectomy [*03/13/2020 History of CVA (cerebrovascular accident) [Z86.*09/12/2020 Carotid artery disease (HCC) [I77.9] 09/12/2020 09/24/2020 Rectal cancer (HCC) [C20] 09/23/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HCC) [Z93.3] 09/23/2020 Acute postoperative respiratory insufficiency [*09/23/2020 10/18/2020 Metabolic acidosis [E87.20] 09/23/2020 09/24/2020 Electrolyte abnormality [E87.8] 09/23/2020 Hypoalbuminemia [E88.09] 09/24/2020 09/30/2020 Obesity, Class I, BMI 30-34.9 [E66.811] 09/26/2020 Essential (primary) hypertension [I10] 09/27/2020 Delirium [R41.0] 09/30/2020 10/18/2020 Idiopathic hypotension [I95.0] 09/30/2020 10/18/2020 Abnormal urinalysis [R82.90] 10/02/2020 Moderate protein-calorie malnutrition (HCC) [E4*10/03/2020 Postoperative ileus (HCC) [K91.89, K56.7] 10/04/2020 10/18/2020 On total parenteral nutrition (TPN) [Z78.9] 10/08/2020 10/13/2020 Peripherally inserted central catheter (PICC) i*10/08/2020 10/18/2020 Postoperative urinary retention [N99.89, R33.8] 10/08/2020 Hyponatremia [E87.1] 10/08/2020 10/18/2020 Urinary tract infection associated with indwell*10/13/2020 Encounter Status:Closed by BRIAN CUMMINGS on 09/15/24 PROGRESS Observed: 09/15/2024 11:06 AM Status: COMPLETED [facility] [facility] HNO ID: [id number] Author: BRIAN CUMMINGS MD Service: ? Author Type: Physician Type: Progress Notes Filed: 09/15/2024 15:07 Note Text: Emelia Johnson 1950 September 15, 2024 Diagnosis: Stage IIA (pT3c N0 M0) rectal adenocarcinoma, 2019. s/p concurrent chemotherapy and radiation followed by abdominoperineal resection with permanent colostomy. Received 3 cycles of adjuvant FOLFOX, further treatment was canceled due to sepsis, ICU hospitalization and thereafter poor performance status. HPI: Emelia Johnson is a 74 year old male who presents today to establish oncology care for history of stage IIA rectal cancer, diagnosed in 2019. He received treatment in [facility]. He has multiple comorbidities including CVA requiring Coumadin therapy. Presented with recurrent rectal bleeding and diarrhea. 01/05/2020- Colonoscopy (Dr. Reddy). Rectal prolapse. A palpable mass starting approximately 5 cm, firm, somewhat thick. Mass extended from 5 cm to approximately 10 cm with 2-3 cm with multiple biopsies were obtained Pathology: Rectal mass biopsy villous adenoma with extensive severe dysplasia and microscopic foci suspicious for invasive adenocarcinoma, low grade (grades 1-2 of 3). 02/27/2020- Colonoscopy (Dr. Reddy). Rectal masses extending from anal verge approximately 5-6 cm. Multiple biopsies obtained. Pathology: MODERATELY DIFFERENTIATED INFILTRATING ADENOCARCINOMA. 03/19/[address]- 1. 4.5 cm hypermetabolic ulcerated mass along the left lateral aspect of the rectal vault consistent with primary rectal/colon carcinoma. There is no evidence of local penelope spread or distant metastatic malignancy. 2. Severe left renal atrophy. The left kidney is nonfunctioning. 3. Moderate bladder distention with fairly large, 6 cm left posterior bladder diverticulum. 4. Mild cardiomegaly and ASCVD with postoperative changes of aortobifemoral bypass grafting. 5. Uncomplicated colonic diverticulosis. 6. Uncomplicated cholelithiasis. 7. Asymmetric right-sided laryngeal activity likely due to phonation after injection. 04/08/2020 - 05/13/2020: Fluorouracil continuous infusion + radiation. Completed preoperative concurrent chemoradiotherapy for a low lying rectal moderately differentiated adenocarcinoma. 07/10/2020: Colonoscopy. Digital rectal exam revealed a mass posteriorly at approximately 6-7 cm from the anal verge that was flat and quite mobile; Unable to resect the mass transanally nor with the Tamis port. Patient was therefore discussed regarding the role of low-anterior resection vs abdominoperineal resection. Patient was seen at [facility] by Dr. Gordon Martinez. 08/09/2020 MRI Rectum- 2.4 cm low rectal tumor as described, without extension into the mesorectal fat. This is predominantly fibrotic although suspect minimal residual viable tumor based on diffusion-weighted imaging. Additional polypoid mass arising from the anterior aspect of the upper anal canal. 09/23/2020: Exploratory laparotomy, mobilization of left colon and splenic flexure, resection of left colon and entire rectum with intersphincteric abdominoperineal rectal resection and excision, omental pedicle flap, creation of end colostomy, comprehensive adhesiolysis. Final pathology report shows: - Surgical approach: Open - En bloc resection: None - Metastasectomy: None - Final pathology stage: ypT3N0 - Lymph nodes involved/examined: 0/12 - Lymphovascular or perineural invasion: No - Circumferential margin: Negative - Distal margin: clear - Mesorectal grade: Nearly complete - AJCC tumor regression grade: no regression - MMR status: proficient - Adjuvant therapy recommended: No 12/31/2020: Cycle 1 FOLFOX 6 modified (adjuvant) Q 2 weeks 01/14/2021: Cycle 2 FOLFOX 6 modified 01/28/2021: Cycle 3 FOLFOX 6 modified Between January 2021 and August 2021 patient hospitalized with concerns for sepsis with critical illness myopathy and generalized weakness and therefore adjuvant treatment had been held. Interval History: Patient is referred back per PCP Dr. Santamaria for follow-up of history of rectal cancer. He was last seen 05/27/2023. He is accompanied by his son today. He was admitted 07/01/2024 to 07/07/2024 for urosepsis Worsening LLE swelling with venous duplex negative for DVT. Blood cultures were negative but urine culture grew MRSA. He underwent arch aortogram with angioplasty and stent placement of L profundofemoral artery on 07/06/2024. EGD on 07/04/2024 showed severe erosive esophagitis. He was admitted 07/13/2024 to 07/20/2024 due to GI bleeding. No unintentional weight loss, fever, headache, chest pain, shortness of breath, nausea, vomiting, abdominal pain. PAST MEDICAL HISTORY Diagnosis Date Abdominal aneurysm without mention of rupture Aneurysm - Abdominal Aorta Atherosclerosis of g[place] arteries of the extremities with intermittent claudication ASO - Extremities AND Claudication CAD (coronary artery disease) Coronary artery disease Cancer (HCC) Chronic obstructive pulmonary disease, unspecified COPD type ([facility]) CKD (chronic kidney disease) stage 3, GFR 30-59 ml/min ([facility]) Colon cancer ([facility]) Depression Diabetes ([facility]) Dyslipidemia Former smoker quit 2 weeks ago History of aorto-femoral bypass History of rectal cancer Hydronephrosis of right kidney Hyperlipidemia Hypertension Hypertrophy of prostate with urinary obstruction and other lower urinary tract symptoms (LUTS) Hypertrophy of the prostate with obstruction Neurogenic bladder Obesity Occlusion and stenosis of carotid artery with cerebral infarction ASO - Carotid W/O Infarction Other psoriasis and similar disorders Psoriasis Retention of urine Stage 3a chronic kidney disease ([facility]) Stroke (cerebrum) ([facility]) residual L sided weakness 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 rupture, 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 90 tablet 0 rosuvastatin (CRESTOR) 10 mg tablet Take 1 tablet by mouth daily at bedtime. 90 tablet 1 ltttreypkqi-upwefmftv-hdtliphh (TRELEGY ELLIPTA) 100-62.5-25 mcg inhalation powder Inhale 1 puff as instructed once daily. 60 each 5 linaGLIPtin (TRADJENTA) 5 mg tab Take 1 tablet by mouth once daily. [address] (PROTONIX) 40 mg tablet Take 1 tablet by mouth two times a day. 180 tablet 1 ergocalciferol 50,000 unit capsule (VITAMIN D2, DRISDOL) TAKE 1 CAPSULE BY MOUTH ONE TIME A WEEK. 12 capsule 0 amLODIPine (NORVASC) 5 mg tablet TAKE 1 TABLET BY MOUTH EVERY DAY 90 tablet 1 loratadine (CLARITIN) 10 mg tablet TAKE 1 TABLET BY MOUTH EVERY DAY 90 tablet 1 icosapent ethyl (VASCEPA) 1 gram capsule Take 2 capsules by mouth two times a day. 240 capsule 5 finasteride (PROSCAR) 5 mg tablet Take 1 tablet by mouth once daily. 90 tablet 1 albuterol HFA (PROVENTIL HFA) 90 mcg/actuation inhaler Inhale 1-2 Puffs as instructed four times a day as needed for wheezing/shortness of breath. 6.7 g 2 fluticasone (FLONASE) 50 mcg/actuation nasal spray SPRAY 1 SPRAY INTO EACH NOSTRIL AT BEDTIME 48 mL 1 Blood Pressure Test Kit-Large ([employer] CHOICE BP MONITOR) 1 Each two times a day. 1 Each 0 flash glucose sensor (FREESTYLE HEMA 14 DAY SENSOR) kit 1 Each four times daily. 1 Kit 2 Fenofibrate 160 mg tablet Take 1 tablet by mouth once daily. 0 iv contrast (will be provided with radiology test) CT Chest ABD/PEL-Inject, intravenously, once for 1 dose.No IV access, insert saline lock prior to the beginning of sedation, infusion, injection of imaging exam. Discontinue saline lock post exam. If Pt. has a central line or IVAD, may access for administration according to line specific nursing protocol. Once exam is complete flush line and de-access according to line specific nursing protocol in the CT contrast administration guidelines link. 1 each 0 enteric contrast (will be provided with radiology test) For CT CHESTABD/PEL W IVCON Routine order Administer, As Directed One Time Only, via Oral, Rectal, both Oral and Rectal, Enteric Tube, Stoma or Indwelling Catheter, Enteric Contrast as designated per enteric contrast guidelines 1 each 0 ferrous sulfate 325 mg (65 mg iron) tablet Take 1 tablet by mouth every other day. (Patient not taking: Reported on 09/07/2024) 30 tablet 3 ELIQUIS 5 mg tab(s) Take 1 tablet by mouth two times a day. (Patient not taking: Reported on 08/22/2024) 180 tablet 2 aspirin, enteric coated (ASPIRIN, ENTERIC COATED) 81 mg EC tablet Take 1 tablet by mouth once daily. (Patient not taking: Reported on 08/22/2024) 90 tablet 1 No current facility-administered medications for this visit. ALLERGIES Allergen Reactions Lipitor [Atorvastat* Other: See Comments body aches FAMILY HISTORY Problem Relation Age of Onset Diabetes Father Stroke ( age 89) Diabetes Mother Stroke ( age 88) Stroke Mother Diabetes Sister Brain ( age 64) Diabetes Brother other (Old Age) Maternal Grandmother age 98 Diabetes Maternal Grandfather No Ocular Disease No Family History Social History Tobacco Use Smoking status: Former Current packs/day: 0.00 Average packs/day: 3.0 packs/day for 50.0 years (150.0 ttl pk-yrs) Types: Cigars, Cigarettes Start date: 10/28/1963 Quit date: 10/27/2013 Years since quittin.8 Smokeless tobacco: Never Vaping Use Vaping status: Never Used Substance Use Topics Alcohol use: No Drug use: No I have confirmed and edited as necessary, the PFSH and ROS obtained by others on 09/15/2024. Review of Systems: All systems reviewed on 09/15/2024 with pertinent positives and negatives as outlined in HPI or interval history. 09/15/24 1107 BP: 125/70 Pulse: 61 Temp: 36.9 ?C (98.4 ?F) TempSrc: Tympanic SpO2: 95% Height: 170.2 cm (5' 7) Body mass index is 27.88 kg/m?. Physical Exam: ECOG PS: 2-3 General: Chronically ill, NAD. HEENT: Normocephalic, no sclera icterus. Neck: Supple. Chest: Clear bilaterally, not labored. Heart: Normal S1 and S2, RRR Abdomen: Soft, nontender, nondistended, bowel sounds present. + Ostomy. + Urinary catheter. Extremities: BLE edema, L>R with mild erythema. Neurological: Grossly intact. Skin: No rashes or jaundice. Nodes: No palpable adenopathy in the cervical, supraclavicular, or axillary regions. Psychiatric: Alert and oriented x3. Appropriate mood and affect. Labs WBC (k/uL) Date Value 08/22/2024 6.59 RBC (m/uL) Date Value 08/22/2024 4.40 Hemoglobin (g/dL) Date Value 08/22/2024 13.0 Hematocrit (%) Date Value 08/22/2024 44.4 MCV (fL) Date Value 08/22/2024 100.9 (H) MCH (pg) Date Value 08/22/2024 29.5 MCHC (g/dL) Date Value 08/22/2024 29.3 (L) RDW-CV (%) Date Value 08/22/2024 17.4 (H) Platelet Count (k/uL) Date Value 12/10/2023 145 (L) MPV (fL) Date Value 08/22/2024 13.0 (H) Glucose (mg/dL) Date Value 08/22/2024 88 BUN (mg/dL) Date Value 08/22/2024 13 Creatinine (mg/dL) Date Value 08/22/2024 1.47 (H) Sodium (mmol/L) Date Value 08/22/2024 140 Potassium (mmol/L) Date Value 08/22/2024 4.2 Chloride (mmol/L) Date Value 08/22/2024 104 CO2 (mmol/L) Date Value 08/22/2024 22 Protein, Total (g/dL) Date Value 04/15/2024 7.6 Albumin (g/dL) Date Value 08/22/2024 3.8 (L) Calcium, Total (mg/dL) Date Value 08/22/2024 9.5 Alkaline Phosphatase (U/L) Date Value 04/15/2024 83 Bilirubin, Total (mg/dL) Date Value 04/15/2024 0.4 AST (U/L) Date Value 04/15/2024 23 ALT (U/L) Date Value 04/15/2024 17 Cholesterol, Total (mg/dL) Date Value 08/22/2024 79 Triglyceride (mg/dL) Date Value 08/22/2024 145 Assessment/Plan: 1. Stage IIA (pT3c N0 M0) rectal adenocarcinoma, diagnosed in 2019. - s/p concurrent chemotherapy and radiation followed by abdominoperineal resection with permanent colostomy on 09/23/2020. - Received 3 cycles of adjuvant FOLFOX, further treatment was canceled due to sepsis and poor performance status. - CEA 4 on 05/01/23 --> 3.9 on 08/22/24. Schedule surveillance CT scans at [place]. - Discussed cancer survivorship care planning. 2. CKD stage 3. - Mildly elevated total protein. - SPEP and MPA on 06/08/2023 showed no M protein, mildly elevated kappa and lambda free light chains with normal K/L ratio. 3. History of GI bleeding. - EGD on 07/04/2024 showed severe erosive esophagitis. - Normal hemoglobin 08/22/24. Continue PPI. Follow CT scan results. Call for questions or concerns. Brian Cummings MD Some elements copied from my notes 05/27/2023, including the physical exam completed in entirety today, have been reviewed and updated where appropriate. All reflect current assessment and medical decision making during today's encounter, 09/15/2024. Medical Decision Making: Problems: Moderate: 1+ chronic illnesses with change Data: Unique source(s) for external note(s) reviewed: 1 Unique test result(s) reviewed: 3+ Unique test(s) ordered: 2 Medical Decision Making Level: 4 - Moderate PROGRESS Observed: 09/07/2024 9:55 AM Status: COMPLETED Source: [facility] HNO ID: [id number] Author: YUDY BENOIT, ? Service: ? Author Type: Physician Type: Progress Notes Filed: 09/07/2024 12:42 Note Text: Last saw pcp: 08/22/24 Subjective: Patient presents to clinic c/o painful toenails. They state that the nails are especially painful with shoe gear and pressure. Patient presents with son who is concerned about the appearance of left foot and leg. Patient admits to being diabetic and states that their blood sugar was 138 mg/dL this AM. No other pedal complaints at this time. Patient states no change in medications or medical history since last visit. Objective: Patient presents to clinic nonambulatory Vasc: DP and PT pulses are palpable bilateral. CFT is less than 5 seconds bilateral. Skin temperature is warm to cool proximal to distal bilateral. There is mild edema or varicosities noted. Neuro: Protective sensation is decreased to the foot and toes when tested with the 5.07 SWM bilateral. Vibratory sensation is absent at the hallux IPJ bilateral. The hallux is downgoing bilateral. Derm: Nails 1-5 b/l are painful, discolored-yellow, thick, crumbly, dystrophic and with subungal debris. Skin is of normal turgor, texture and hair growth is decreased bilateral. There are no hyperkeratosis, ulcerations, scars, verruca or other lesions noted. Ortho: Muscle strength is 5/5 for all pedal groups tested. Ankle joint DF is decreased with the knee extended with no pain or crepitus noted. 1st MPJ ROM is decreased bilateral. Assessment: (B35.1) Onychomycosis (primary encounter diagnosis) (M79.675) Pain in toe of left foot (M79.674) Pain in toe of right foot (E11.42) Diabetic polyneuropathy associated with type 2 diabetes mellitus (HCC) Plan: Patient was seen and evaluated. Nails 1-5 bilateral were debrided in length and thickness. Patient was instructed on the continued importance of diabetic foot care along with proper diet and keeping their blood sugar under control to prevent complications. I stressed the importance of avoiding barefoot walking, wearing good shoes and inspection of feet. Patient is to RTC in 3-4 months. ANTONIETTA Valdovinos Observed: 09/07/2024 9:45 AM Status: COMPLETED Source: [facility] Office Visit (PODIWS) EMELIA JOHNSON ([id number]) 1950 M Date Time Provider Department 09/07/24 9:45 AM YUDY BENOIT PODIWS During your visit today, we recorded the following information about you: Meaghan Miller MA 09/07/2024 12:42 PM Signed Patient presents with: Left Foot - Nail care Right Foot - Nail care: Diabetic foot exam AMB ROOMING INTAKE FLOWSHEET DATA Patient denies any pain today. Patient's left foot is very swollen and reddened. Son with patient today. Blood sugar was 138 on Wednesday. Yudy Benoit 09/07/2024 12:42 PM Signed Last saw pcp: 08/22/24 Subjective: Patient presents to clinic c/o painful toenails. They state that the nails are especially painful with shoe gear and pressure. Patient presents with son who is concerned about the appearance of left foot and leg. Patient admits to being diabetic and states that their blood sugar was 138 mg/dL this AM. No other pedal complaints at this time. Patient states no change in medications or medical history since last visit. Objective: Patient presents to clinic nonambulatory Vasc: DP and PT pulses are palpable bilateral. CFT is less than 5 seconds bilateral. Skin temperature is warm to cool proximal to distal bilateral. There is mild edema or varicosities noted. Neuro: Protective sensation is decreased to the foot and toes when tested with the 5.07 SWM bilateral. Vibratory sensation is absent at the hallux IPJ bilateral. The hallux is downgoing bilateral. Derm: Nails 1-5 b/l are painful, discolored-yellow, thick, crumbly, dystrophic and with subungal debris. Skin is of normal turgor, texture and hair growth is decreased bilateral. There are no hyperkeratosis, ulcerations, scars, verruca or other lesions noted. Ortho: Muscle strength is 5/5 for all pedal groups tested. Ankle joint DF is decreased with the knee extended with no pain or crepitus noted. 1st MPJ ROM is decreased bilateral. Assessment: (B35.1) Onychomycosis (primary encounter diagnosis) (M79.675) Pain in toe of left foot (M79.674) Pain in toe of right foot (E11.42) Diabetic polyneuropathy associated with type 2 diabetes mellitus (HCC) Plan: Patient was seen and evaluated. Nails 1-5 bilateral were debrided in length and thickness. Patient was instructed on the continued importance of diabetic foot care along with proper diet and keeping their blood sugar under control to prevent complications. I stressed the importance of avoiding barefoot walking, wearing good shoes and inspection of feet. Patient is to RTC in 3-4 months. Yudy Benoit DPM Referring Provider: YUDY BENOIT [[id number]] Allergies As of Date: 09/07/2024 Noted Allergy Reaction LIPITOR (ATORVASTATIN) 11/17/2013 14 - Other: See Comments Comments: body aches Date Reviewed: 09/07/2024 Reviewed by: Meaghan Miller MA - Fully Assessed Reason for Visit: Nail care [Other] Nail care [Other] Cmt: Diabetic foot exam Primary Visit Diagnosis:Onychomycosis [B35.1] Other Visit Diagnoses:Pain in toe of left foot [M79.675] Pain in toe of right foot [M79.674] Diabetic polyneuropathy associated with type 2 diabetes mellitus (HCC) [E11.42] Prescriptions as of 09/07/2024 - levothyroxine (SYNTHROID) 175 mcg tablet Take 1 tablet by mouth daily before breakfast. - rosuvastatin (CRESTOR) 10 mg tablet Take 1 tablet by mouth daily at bedtime. - ferrous sulfate 325 mg (65 mg iron) tablet Take 1 tablet by mouth every other day. - mtsqvhgpsbx-cbinnxmke-gpkofmek (TRELEGY ELLIPTA) 100-62.5-25 mcg inhalation powder Inhale 1 puff as instructed once daily. - linaGLIPtin (TRADJENTA) 5 mg tab Take 1 tablet by mouth once daily. - pantoprazole DR (PROTONIX) 40 mg tablet Take 1 tablet by mouth two times a day. - ergocalciferol 50,000 unit capsule (VITAMIN D2, DRISDOL) TAKE 1 CAPSULE BY MOUTH ONE TIME A WEEK. - amLODIPine (NORVASC) 5 mg tablet TAKE 1 TABLET BY MOUTH EVERY DAY - loratadine (CLARITIN) 10 mg tablet TAKE 1 TABLET BY MOUTH EVERY DAY - icosapent ethyl (VASCEPA) 1 gram capsule Take 2 capsules by mouth two times a day. - ELIQUIS 5 mg tab(s) Take 1 tablet by mouth two times a day. - finasteride (PROSCAR) 5 mg tablet Take 1 tablet by mouth once daily. - aspirin, enteric coated (ASPIRIN, ENTERIC COATED) 81 mg EC tablet Take 1 tablet by mouth once daily. - albuterol HFA (PROVENTIL HFA) 90 mcg/actuation inhaler Inhale 1-2 Puffs as instructed four times a day as needed for wheezing/shortness of breath. - fluticasone (FLONASE) 50 mcg/actuation nasal spray SPRAY 1 SPRAY INTO EACH NOSTRIL AT BEDTIME - Blood Pressure Test Kit-Large ([employer] BP MONITOR) 1 Each two times a day. - flash glucose sensor (FREESTYLE HEMA 14 DAY SENSOR) kit 1 Each four times daily. - Fenofibrate 160 mg tablet Take 1 tablet by mouth once daily. 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 02/08/2020 Atherosclerosis of [place] artery of extremity w*11/21/2013 Other hyperlipidemia [E78.49] Unspecified hypothyroidism [E03.9] Smoker [F17.200] 01/27/2015 Chronic ischemic right MCA stroke [Z86.73] 02/08/2020 CAD (coronary artery disease), g[place] coronary *12/27/2013 Postprocedural hypotension [I95.81] 12/27/2013 09/25/2020 Stress hyperglycemia [R73.9] 12/27/2013 01/27/2015 Hypoxia [R09.02] 12/27/2013 12/28/2013 Acute blood loss anemia [D62] 12/30/2013 01/27/2015 Acute post-operative pain [G89.18] 01/03/2014 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] 01/03/2020 Embolic stroke involving right carotid artery (*02/08/2020 Symptomatic carotid artery stenosis [I65.29] 02/13/2020 BPH (benign prostatic hyperplasia) [N40.0] CKD (chronic kidney disease) stage 3, GFR 30-59* 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* Hemorrhoids [K64.9] Psoriasis [L40.9] Former smoker [Z87.891] AAA (abdominal aortic aneurysm) without rupture* 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 History of right-sided carotid endarterectomy [*03/13/2020 History of CVA (cerebrovascular accident) [Z86.*09/12/2020 Carotid artery disease (HCC) [I77.9] 09/12/2020 09/24/2020 Rectal cancer (HCC) [C20] 09/23/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HCC) [Z93.3] 09/23/2020 Acute postoperative respiratory insufficiency [*09/23/2020 10/18/2020 Metabolic acidosis [E87.20] 09/23/2020 09/24/2020 Electrolyte abnormality [E87.8] 09/23/2020 Hypoalbuminemia [E88.09] 09/24/2020 09/30/2020 Obesity, Class I, BMI 30-34.9 [E66.811] 09/26/2020 Essential (primary) hypertension [I10] 09/27/2020 Delirium [R41.0] 09/30/2020 10/18/2020 Idiopathic hypotension [I95.0] 09/30/2020 10/18/2020 Abnormal urinalysis [R82.90] 10/02/2020 Moderate protein-calorie malnutrition (HCC) [E4*10/03/2020 Postoperative ileus (HCC) [K91.89, K56.7] 10/04/2020 10/18/2020 On total parenteral nutrition (TPN) [Z78.9] 10/08/2020 10/13/2020 Peripherally inserted central catheter (PICC) i*10/08/2020 10/18/2020 Postoperative urinary retention [N99.89, R33.8] 10/08/2020 Hyponatremia [E87.1] 10/08/2020 10/18/2020 Urinary tract infection associated with indwell*10/13/2020 Disposition: Return in 4 months (on 01/07/2025). Follow-up and Disposition History for Encounter Date Provider Department Center 09/07/[id number] BENOIT [facility] Encounter Status:Closed by YUDY BENOIT DPM on 09/07/24 PROGRESS Observed: 09/07/2024 9:35 AM Status: COMPLETED Source: [facility] HNO ID: [id number] Author: MEAGHAN MILLER MA Service: ? Author Type: Bone Density Technician Type: Progress Notes Filed: 09/07/2024 12:42 Note Text: Patient presents with: Left Foot - Nail care Right Foot - Nail care: Diabetic foot exam AMB ROOMING INTAKE FLOWSHEET DATA Patient denies any pain today. Patient's left foot is very swollen and reddened. Son with patient today. Blood sugar was 138 on Wednesday. CNPN Observed: 09/06/2024 12:00 AM Status: COMPLETED Source: [facility] Telephone (AGSAM) ALEXEMELIA ([id number]) 1950 M Date Time Provider Department 09/06/24 JENAE SANTAMARIA AGS During your visit today, we recorded the following information about you: Jojo Garrido MA 09/06/2024 4:14 PM Signed Nurse from [facility] called david [phone], calling to report she did hear some crackles in pt's left lower lobe in the lungs, pt does have some gargling and states pt does not sit up well when taking a drink, but reports no cough asking if you want a chest xray or an antibiotic Please advise Jenae Santamaria MD 09/06/2024 5:02 PM Signed Will order chest x-ray. Does patient have good SpO2 or fevers, chills or trouble breathing? MD Hema Jensen Amanda, MA 09/08/2024 9:59 AM Signed 92-93 has been pts ox, nurse states it is hard to get a good reading on him he has cold hands, no trouble breathing no fevers, states nurse will tell son about getting chest xray done Allergies As of Date: 09/06/2024 Noted Allergy Reaction LIPITOR (ATORVASTATIN) 11/17/2013 14 - Other: See Comments Comments: body aches Date Reviewed: 08/22/2024 Reviewed by: Jenae Santamaria MD - Fully Assessed Reason for Visit: Patient Update [1234] Primary Visit Diagnosis:Rales [R09.89] Order(s):XR CHEST 2V FRONTAL/LAT [[id number]] Order #: [id number] FUTURE Prescriptions as of 09/08/2024 - levothyroxine (SYNTHROID) 175 mcg tablet Take 1 tablet by mouth daily before breakfast. - rosuvastatin (CRESTOR) 10 mg tablet Take 1 tablet by mouth daily at bedtime. - ferrous sulfate 325 mg (65 mg iron) tablet Take 1 tablet by mouth every other day. - jfoxizjiefq-mptcbkqyi-cniimxjm (TRELEGY ELLIPTA) 100-62.5-25 mcg inhalation powder Inhale 1 puff as instructed once daily. - linaGLIPtin (TRADJENTA) 5 mg tab Take 1 tablet by mouth once daily. - pantoprazole DR (PROTONIX) 40 mg tablet Take 1 tablet by mouth two times a day. - ergocalciferol 50,000 unit capsule (VITAMIN D2, DRISDOL) TAKE 1 CAPSULE BY MOUTH ONE TIME A WEEK. - amLODIPine (NORVASC) 5 mg tablet TAKE 1 TABLET BY MOUTH EVERY DAY - loratadine (CLARITIN) 10 mg tablet TAKE 1 TABLET BY MOUTH EVERY DAY - icosapent ethyl (VASCEPA) 1 gram capsule Take 2 capsules by mouth two times a day. - ELIQUIS 5 mg tab(s) Take 1 tablet by mouth two times a day. - finasteride (PROSCAR) 5 mg tablet Take 1 tablet by mouth once daily. - aspirin, enteric coated (ASPIRIN, ENTERIC COATED) 81 mg EC tablet Take 1 tablet by mouth once daily. - albuterol HFA (PROVENTIL HFA) 90 mcg/actuation inhaler Inhale 1-2 Puffs as instructed four times a day as needed for wheezing/shortness of breath. - fluticasone (FLONASE) 50 mcg/actuation nasal spray SPRAY 1 SPRAY INTO EACH NOSTRIL AT BEDTIME - Blood Pressure Test Kit-Large (CLEVER CHOICE BP MONITOR) 1 Each two times a day. - flash glucose sensor (FREESTYLE HEMA 14 DAY SENSOR) kit 1 Each four times daily. - Fenofibrate 160 mg tablet Take 1 tablet by mouth once daily. 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 02/08/2020 Atherosclerosis of [place] artery of extremity w*11/21/2013 Other hyperlipidemia [E78.49] Unspecified hypothyroidism [E03.9] Smoker [F17.200] 01/27/2015 Chronic ischemic right MCA stroke [Z86.73] 02/08/2020 CAD (coronary artery disease), [place] coronary *12/27/2013 Postprocedural hypotension [I95.81] 12/27/2013 09/25/2020 Stress hyperglycemia [R73.9] 12/27/2013 01/27/2015 Hypoxia [R09.02] 12/27/2013 12/28/2013 Acute blood loss anemia [D62] 12/30/2013 01/27/2015 Acute post-operative pain [G89.18] 01/03/2014 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] 01/03/2020 Embolic stroke involving right carotid artery (*02/08/2020 Symptomatic carotid artery stenosis [I65.29] 02/13/2020 BPH (benign prostatic hyperplasia) [N40.0] CKD (chronic kidney disease) stage 3, GFR 30-59* 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* Hemorrhoids [K64.9] Psoriasis [L40.9] Former smoker [Z87.891] AAA (abdominal aortic aneurysm) without rupture* 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 History of right-sided carotid endarterectomy [*03/13/2020 History of CVA (cerebrovascular accident) [Z86.*09/12/2020 Carotid artery disease (HCC) [I77.9] 09/12/2020 09/24/2020 Rectal cancer (HCC) [C20] 09/23/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HCC) [Z93.3] 09/23/2020 Acute postoperative respiratory insufficiency [*09/23/2020 10/18/2020 Metabolic acidosis [E87.20] 09/23/2020 09/24/2020 Electrolyte abnormality [E87.8] 09/23/2020 Hypoalbuminemia [E88.09] 09/24/2020 09/30/2020 Obesity, Class I, BMI 30-34.9 [E66.811] 09/26/2020 Essential (primary) hypertension [I10] 09/27/2020 Delirium [R41.0] 09/30/2020 10/18/2020 Idiopathic hypotension [I95.0] 09/30/2020 10/18/2020 Abnormal urinalysis [R82.90] 10/02/2020 Moderate protein-calorie malnutrition (HCC) [E4*10/03/2020 Postoperative ileus (HCC) [K91.89, K56.7] 10/04/2020 10/18/2020 On total parenteral nutrition (TPN) [Z78.9] 10/08/2020 10/13/2020 Peripherally inserted central catheter (PICC) i*10/08/2020 10/18/2020 Postoperative urinary retention [N99.89, R33.8] 10/08/2020 Hyponatremia [E87.1] 10/08/2020 10/18/2020 Urinary tract infection associated with indwell*10/13/2020 Encounter Status:Closed by JOJO GARRIDO on 09/08/24 CNPN Observed: 09/05/2024 12:00 AM Status: COMPLETED Source: [facility] Telephone (AGSAM) EMELIA JOHNSON ([id number]) 1950 M Date Time Provider Department 09/05/24 JENAE SANTAMARIA AGSSANDRA During your visit today, we recorded the following information about you: Jooj Garrido MA 09/05/2024 2:35 PM Addendum PT Jojo called [phone] to report pt had a fall during PT today, pt states he doesn't remember falling, states he felt like he was choking, jojo PT states she did catch him and helped lower him to the ground, reports no injury, states EMS was called assisted pt helped pt back up did not send pt to ER for evaluation. Jenae Newman MD 09/05/2024 11:19 AM Signed Did patient feel like choking on saliva or food? Was patient lightheaded or too misstep and then fell? MD Hema Jensen Amanda, MA 09/05/2024 2:44 PM Signed Spoke to jojo, states patient said felt like mucus he was choking on, he was having episode of coughing, reports unknown to a possible upper respiratory infection pt has not complained or said anything about possibly being sick but jojo does report he did eat some cheese keshav before starting with PT, also jojo reports she was behind him when pt had the fall so she didn't get to see his face when the fall happened and family who was there did not pay attention to patient so she is not sure if he felt lightheaded or maybe lost balance and patient reports he doesn't remember what happened, pt is still home with family Allergies As of Date: 09/05/2024 Noted Allergy Reaction LIPITOR (ATORVASTATIN) 11/17/2013 14 - Other: See Comments Comments: body aches Date Reviewed: 08/22/2024 Reviewed by: Jenae Santamaria MD - Fully Assessed Reason for Visit: Patient Update [1234] Prescriptions as of 09/06/2024 - levothyroxine (SYNTHROID) 175 mcg tablet Take 1 tablet by mouth daily before breakfast. - rosuvastatin (CRESTOR) 10 mg tablet Take 1 tablet by mouth daily at bedtime. - ferrous sulfate 325 mg (65 mg iron) tablet Take 1 tablet by mouth every other day. - ecbwwpzcscv-yjoynppzj-usqbzgaj (TRELEGY ELLIPTA) 100-62.5-25 mcg inhalation powder Inhale 1 puff as instructed once daily. - linaGLIPtin (TRADJENTA) 5 mg tab Take 1 tablet by mouth once daily. - pantoprazole DR (PROTONIX) 40 mg tablet Take 1 tablet by mouth two times a day. - ergocalciferol 50,000 unit capsule (VITAMIN D2, DRISDOL) TAKE 1 CAPSULE BY MOUTH ONE TIME A WEEK. - amLODIPine (NORVASC) 5 mg tablet TAKE 1 TABLET BY MOUTH EVERY DAY - loratadine (CLARITIN) 10 mg tablet TAKE 1 TABLET BY MOUTH EVERY DAY - icosapent ethyl (VASCEPA) 1 gram capsule Take 2 capsules by mouth two times a day. - ELIQUIS 5 mg tab(s) Take 1 tablet by mouth two times a day. - finasteride (PROSCAR) 5 mg tablet Take 1 tablet by mouth once daily. - aspirin, enteric coated (ASPIRIN, ENTERIC COATED) 81 mg EC tablet Take 1 tablet by mouth once daily. - albuterol HFA (PROVENTIL HFA) 90 mcg/actuation inhaler Inhale 1-2 Puffs as instructed four times a day as needed for wheezing/shortness of breath. - fluticasone (FLONASE) 50 mcg/actuation nasal spray SPRAY 1 SPRAY INTO EACH NOSTRIL AT BEDTIME - Blood Pressure Test Kit-Large (Cloud[employer] CHOICE BP MONITOR) 1 Each two times a day. - flash glucose sensor (FREESTYLE HEMA 14 DAY SENSOR) kit 1 Each four times daily. - Fenofibrate 160 mg tablet Take 1 tablet by mouth once daily. 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 02/08/2020 Atherosclerosis of [place] artery of extremity w*11/21/2013 Other hyperlipidemia [E78.49] Unspecified hypothyroidism [E03.9] Smoker [F17.200] 01/27/2015 Chronic ischemic right MCA stroke [Z86.73] 02/08/2020 CAD (coronary artery disease), [place] coronary *12/27/2013 Postprocedural hypotension [I95.81] 12/27/2013 09/25/2020 Stress hyperglycemia [R73.9] 12/27/2013 01/27/2015 Hypoxia [R09.02] 12/27/2013 12/28/2013 Acute blood loss anemia [D62] 12/30/2013 01/27/2015 Acute post-operative pain [G89.18] 01/03/2014 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] 01/03/2020 Embolic stroke involving right carotid artery (*02/08/2020 Symptomatic carotid artery stenosis [I65.29] 02/13/2020 BPH (benign prostatic hyperplasia) [N40.0] CKD (chronic kidney disease) stage 3, GFR 30-59* 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* Hemorrhoids [K64.9] Psoriasis [L40.9] Former smoker [Z87.891] AAA (abdominal aortic aneurysm) without rupture* 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 History of right-sided carotid endarterectomy [*03/13/2020 History of CVA (cerebrovascular accident) [Z86.*09/12/2020 Carotid artery disease (HCC) [I77.9] 09/12/2020 09/24/2020 Rectal cancer (HCC) [C20] 09/23/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HCC) [Z93.3] 09/23/2020 Acute postoperative respiratory insufficiency [*09/23/2020 10/18/2020 Metabolic acidosis [E87.20] 09/23/2020 09/24/2020 Electrolyte abnormality [E87.8] 09/23/2020 Hypoalbuminemia [E88.09] 09/24/2020 09/30/2020 Obesity, Class I, BMI 30-34.9 [E66.811] 09/26/2020 Essential (primary) hypertension [I10] 09/27/2020 Delirium [R41.0] 09/30/2020 10/18/2020 Idiopathic hypotension [I95.0] 09/30/2020 10/18/2020 Abnormal urinalysis [R82.90] 10/02/2020 Moderate protein-calorie malnutrition (HCC) [E4*10/03/2020 Postoperative ileus (HCC) [K91.89, K56.7] 10/04/2020 10/18/2020 On total parenteral nutrition (TPN) [Z78.9] 10/08/2020 10/13/2020 Peripherally inserted central catheter (PICC) i*10/08/2020 10/18/2020 Postoperative urinary retention [N99.89, R33.8] 10/08/2020 Hyponatremia [E87.1] 10/08/2020 10/18/2020 Urinary tract infection associated with indwell*10/13/2020 Encounter Status:[facility]: 08/30/2024 12:00 AM Status: COMPLETED Source: [facility] Telephone (AGSAM) EMELIA JOHNSON ([id number]) 1950 M Date Time Provider Department 08/30/24 JENAE SANTAMARIA During your visit today, we recorded the following information about you: Jojo Garrido MA 08/30/2024 1:49 PM Signed Got a call from luis from [facility] about pt, she was calling to report she ws having issues with pt maddox, maddox was leaking she tried to flush it but was not flushing well, so she changed pt's maddox to a 20 in that was in the home, states needs an order to cover her for changing maddox, she thought there was an order and there was not. Luis did change the maddox reports no issues, no leakage, no concerns for infection and urine looked good call back number is [phone] I can call and give a verbal if you are ok with this Please advise Jenae Santamaria MD 08/30/2024 1:55 PM Signed Patient is fine to have maddox catheter exchanged MD Hema Jensen Amanda, MA 08/30/2024 2:54 PM Signed Left luis a vm message given verbal ok will call me back if she needs us to send anything over Allergies As of Date: 08/30/2024 Noted Allergy Reaction LIPITOR (ATORVASTATIN) 11/17/2013 14 - Other: See Comments Comments: body aches Date Reviewed: 08/22/2024 Reviewed by: Jenae Santamaria MD - Fully Assessed Reason for Visit: Patient Question [1477] Prescriptions as of 08/30/2024 - levothyroxine (SYNTHROID) 175 mcg tablet Take 1 tablet by mouth daily before breakfast. - rosuvastatin (CRESTOR) 10 mg tablet Take 1 tablet by mouth daily at bedtime. - ferrous sulfate 325 mg (65 mg iron) tablet Take 1 tablet by mouth every other day. - ixokenpdizu-lndoyxxex-okvwkmcs (TRELEGY ELLIPTA) 100-62.5-25 mcg inhalation powder Inhale 1 puff as instructed once daily. - linaGLIPtin (TRADJENTA) 5 mg tab Take 1 tablet by mouth once daily. - pantoprazole DR (PROTONIX) 40 mg tablet Take 1 tablet by mouth two times a day. - ergocalciferol 50,000 unit capsule (VITAMIN D2, DRISDOL) TAKE 1 CAPSULE BY MOUTH ONE TIME A WEEK. - amLODIPine (NORVASC) 5 mg tablet TAKE 1 TABLET BY MOUTH EVERY DAY - loratadine (CLARITIN) 10 mg tablet TAKE 1 TABLET BY MOUTH EVERY DAY - icosapent ethyl (VASCEPA) 1 gram capsule Take 2 capsules by mouth two times a day. - ELIQUIS 5 mg tab(s) Take 1 tablet by mouth two times a day. - finasteride (PROSCAR) 5 mg tablet Take 1 tablet by mouth once daily. - aspirin, enteric coated (ASPIRIN, ENTERIC COATED) 81 mg EC tablet Take 1 tablet by mouth once daily. - albuterol HFA (PROVENTIL HFA) 90 mcg/actuation inhaler Inhale 1-2 Puffs as instructed four times a day as needed for wheezing/shortness of breath. - fluticasone (FLONASE) 50 mcg/actuation nasal spray SPRAY 1 SPRAY INTO EACH NOSTRIL AT BEDTIME - Blood Pressure Test Kit-Large (NextDocs BP MONITOR) 1 Each two times a day. - flash glucose sensor (FREESTYLE HEMA 14 DAY SENSOR) kit 1 Each four times daily. - Fenofibrate 160 mg tablet Take 1 tablet by mouth once daily. 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 02/08/2020 Atherosclerosis of [place] artery of extremity w*11/21/2013 Other hyperlipidemia [E78.49] Unspecified hypothyroidism [E03.9] Smoker [F17.200] 01/27/2015 Chronic ischemic right MCA stroke [Z86.73] 02/08/2020 CAD (coronary artery disease), [place] coronary *12/27/2013 Postprocedural hypotension [I95.81] 12/27/2013 09/25/2020 Stress hyperglycemia [R73.9] 12/27/2013 01/27/2015 Hypoxia [R09.02] 12/27/2013 12/28/2013 Acute blood loss anemia [D62] 12/30/2013 01/27/2015 Acute post-operative pain [G89.18] 01/03/2014 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] 01/03/2020 Embolic stroke involving right carotid artery (*02/08/2020 Symptomatic carotid artery stenosis [I65.29] 02/13/2020 BPH (benign prostatic hyperplasia) [N40.0] CKD (chronic kidney disease) stage 3, GFR 30-59* 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* Hemorrhoids [K64.9] Psoriasis [L40.9] Former smoker [Z87.891] AAA (abdominal aortic aneurysm) without rupture* 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 History of right-sided carotid endarterectomy [*03/13/2020 History of CVA (cerebrovascular accident) [Z86.*09/12/2020 Carotid artery disease (HCC) [I77.9] 09/12/2020 09/24/2020 Rectal cancer (HCC) [C20] 09/23/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HCC) [Z93.3] 09/23/2020 Acute postoperative respiratory insufficiency [*09/23/2020 10/18/2020 Metabolic acidosis [E87.20] 09/23/2020 09/24/2020 Electrolyte abnormality [E87.8] 09/23/2020 Hypoalbuminemia [E88.09] 09/24/2020 09/30/2020 Obesity, Class I, BMI 30-34.9 [E66.811] 09/26/2020 Essential (primary) hypertension [I10] 09/27/2020 Delirium [R41.0] 09/30/2020 10/18/2020 Idiopathic hypotension [I95.0] 09/30/2020 10/18/2020 Abnormal urinalysis [R82.90] 10/02/2020 Moderate protein-calorie malnutrition (HCC) [E4*10/03/2020 Postoperative ileus (HCC) [K91.89, K56.7] 10/04/2020 10/18/2020 On total parenteral nutrition (TPN) [Z78.9] 10/08/2020 10/13/2020 Peripherally inserted central catheter (PICC) i*10/08/2020 10/18/2020 Postoperative urinary retention [N99.89, R33.8] 10/08/2020 Hyponatremia [E87.1] 10/08/2020 10/18/2020 Urinary tract infection associated with indwell*10/13/2020 Encounter Status:Closed by JOJO GARRIDO on 08/30/24 CNPN Observed: 08/25/2024 12:00 AM Status: COMPLETED Source: [facility] Telephone (AKScopial FashionAA) EMELIA JOHNSON ([id number]) 1950 M Date Time Provider Department 08/25/24 BALTA SCOTT During your visit today, we recorded the following information about you: Balta Scott RD 08/25/2024 9:25 AM Signed Shellie failed to show for his RD CDE appointment today. A message was left with scheduling phone number to call and reschedule. He rescheduled his appointment earlier this year to this date. Thank you for the referral. Balta Scott MS RD LD CDCES Allergies As of Date: 08/25/2024 Noted Allergy Reaction LIPITOR (ATORVASTATIN) 11/17/2013 14 - Other: See Comments Comments: body aches Date Reviewed: 08/22/2024 Reviewed by: Jenae Santamaria MD - Fully Assessed Reason for Visit: No Show [1558] Prescriptions as of 09/26/2024 - sulfamethoxazole-trimethoprim (BACTRIM DS) 800-160 mg per tablet Take 1 tablet by mouth two times a day for 7 days. - levothyroxine (SYNTHROID) 175 mcg tablet Take 1 tablet by mouth daily before breakfast. - rosuvastatin (CRESTOR) 10 mg tablet Take 1 tablet by mouth daily at bedtime. - ferrous sulfate 325 mg (65 mg iron) tablet Take 1 tablet by mouth every other day. - whmliuvdnlj-vsdnfmaxx-vulqnsvf (TRELEGY ELLIPTA) 100-62.5-25 mcg inhalation powder Inhale 1 puff as instructed once daily. - linaGLIPtin (TRADJENTA) 5 mg tab Take 1 tablet by mouth once daily. - pantoprazole DR (PROTONIX) 40 mg tablet Take 1 tablet by mouth two times a day. - ergocalciferol 50,000 unit capsule (VITAMIN D2, DRISDOL) TAKE 1 CAPSULE BY MOUTH ONE TIME A WEEK. - amLODIPine (NORVASC) 5 mg tablet TAKE 1 TABLET BY MOUTH EVERY DAY - loratadine (CLARITIN) 10 mg tablet TAKE 1 TABLET BY MOUTH EVERY DAY - icosapent ethyl (VASCEPA) 1 gram capsule Take 2 capsules by mouth two times a day. - ELIQUIS 5 mg tab(s) Take 1 tablet by mouth two times a day. - finasteride (PROSCAR) 5 mg tablet Take 1 tablet by mouth once daily. - aspirin, enteric coated (ASPIRIN, ENTERIC COATED) 81 mg EC tablet Take 1 tablet by mouth once daily. - albuterol HFA (PROVENTIL HFA) 90 mcg/actuation inhaler Inhale 1-2 Puffs as instructed four times a day as needed for wheezing/shortness of breath. - fluticasone (FLONASE) 50 mcg/actuation nasal spray SPRAY 1 SPRAY INTO EACH NOSTRIL AT BEDTIME - Blood Pressure Test Kit-Large (NextDocs BP MONITOR) 1 Each two times a day. - flash glucose sensor (FREESTYLE HEMA 14 DAY SENSOR) kit 1 Each four times daily. - Fenofibrate 160 mg tablet Take 1 tablet by mouth once daily. 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 02/08/2020 Atherosclerosis of [place] artery of extremity w*11/21/2013 Other hyperlipidemia [E78.49] Unspecified hypothyroidism [E03.9] Smoker [F17.200] 01/27/2015 Chronic ischemic right MCA stroke [Z86.73] 02/08/2020 CAD (coronary artery disease), [place] coronary *12/27/2013 Postprocedural hypotension [I95.81] 12/27/2013 09/25/2020 Stress hyperglycemia [R73.9] 12/27/2013 01/27/2015 Hypoxia [R09.02] 12/27/2013 12/28/2013 Acute blood loss anemia [D62] 12/30/2013 01/27/2015 Acute post-operative pain [G89.18] 01/03/2014 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] 01/03/2020 Embolic stroke involving right carotid artery (*02/08/2020 Symptomatic carotid artery stenosis [I65.29] 02/13/2020 BPH (benign prostatic hyperplasia) [N40.0] CKD (chronic kidney disease) stage 3, GFR 30-59* 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* Hemorrhoids [K64.9] Psoriasis [L40.9] Former smoker [Z87.891] AAA (abdominal aortic aneurysm) without rupture* 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 History of right-sided carotid endarterectomy [*03/13/2020 History of CVA (cerebrovascular accident) [Z86.*09/12/2020 Carotid artery disease (HCC) [I77.9] 09/12/2020 09/24/2020 Rectal cancer (HCC) [C20] 09/23/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HCC) [Z93.3] 09/23/2020 Acute postoperative respiratory insufficiency [*09/23/2020 10/18/2020 Metabolic acidosis [E87.20] 09/23/2020 09/24/2020 Electrolyte abnormality [E87.8] 09/23/2020 Hypoalbuminemia [E88.09] 09/24/2020 09/30/2020 Obesity, Class I, BMI 30-34.9 [E66.811] 09/26/2020 Essential (primary) hypertension [I10] 09/27/2020 Delirium [R41.0] 09/30/2020 10/18/2020 Idiopathic hypotension [I95.0] 09/30/2020 10/18/2020 Abnormal urinalysis [R82.90] 10/02/2020 Moderate protein-calorie malnutrition (HCC) [E4*10/03/2020 Postoperative ileus (HCC) [K91.89, K56.7] 10/04/2020 10/18/2020 On total parenteral nutrition (TPN) [Z78.9] 10/08/2020 10/13/2020 Peripherally inserted central catheter (PICC) i*10/08/2020 10/18/2020 Postoperative urinary retention [N99.89, R33.8] 10/08/2020 Hyponatremia [E87.1] 10/08/2020 10/18/2020 Urinary tract infection associated with indwell*10/13/2020 Encounter Status:Closed by BALTA SCOTT on 09/26/24 25(OH)D3 SERPL-MCNC Collected: 08/23/19 12:03 PM Status: F Source: [facility] Order Comment: Specimen Type : BLOOD SPECIMEN Ordering Facility: [facility] Address: [address] [place] [address] TYPE CODE TESTS RESULT OUT OF RANGE REFERENCE UNITS LAB 1988-3(LOINC) 25(OH)D3 SerPl-mCnc 62.7 >=30.0 ng/mL Result Comment: Classificati on of 25 OH Vitamin D status: Deficiency: <= 20.0 ng/ml. Insufficiency: 21.0-29.0 ng/ml. Sufficiency: >= 30.0 ng/ml. Performed By: #### 3 ## ## [facility] CLIA [id number] [address] IRON+TIBC PNL SERPL Collected: 08/23/19 12:03 PM Status: F Source: [facility] Order Comment: Specimen Type : BLOOD SPECIMEN Ordering Facility: [facility] Address: [address] [place] [address] TYPE CODE TESTS RESULT OUT OF RANGE REFERENCE UNITS LAB 2498-4(LOINC) Iron SerPl-mCnc 36 Low 41-186 ug/dL LAB 2500-7(LOINC) TIBC SerPl-mCnc 185 Low 232-386 ug/dL LAB 2502-3(LOINC) Iron Satn MFr SerPl 19.5 15.0-57.0 % Performed By: #### 01525-0, 3016-3, 55180-0, 58887-1 #### [facility] CLIA [id number] [address] [place] LIPID 1996 PNL SERPL Collected: 025 12:03 PM Status: F Source: [facility] Order Comment: Specimen Type : BLOOD SPECIMEN Ordering Facility: [facility] Address: [address] [place] [address] TYPE CODE TESTS RESULT OUT OF RANGE REFERENCE UNITS LAB 2093-3(LOINC) Cholest SerPl-mCnc 79 <200 mg/dL Result Comment: <200 mg/dL, Desirable 200-239 mg/dL, Borderline high >239 mg/dL, High LAB 2571-8(LOINC) Trigl SerPl-mCnc 145 <150 mg/dL Result Comment: <150 mg/dL, Normal 150-199 mg/dL, Borderline high 200-499 mg/dL, High >499 mg/dL, Very high LAB 2085-9(LOINC) HDLc SerPl-mCnc 43 >39 mg/dL Result Comment: 40-59 mg/dL, Acceptable >59 mg/dL, High: Negative risk factor for coronary heart disease <40 mg/dL, Low: Positive risk factor for coronary heart disease LAB 17653-4(LOINC) LDLc SerPl Calc-mCnc <20 <100 mg/dL Result Comment: <100 mg/dL, Optimal 100-129 mg/dL, Near optimal/above optimal 130-159 mg/dL, Borderline high 160-189 mg/dL, High >189 mg/dL, Very high Secondary prevention optimal LDL Cholesterol levels are recommended to be <70 mg/dL LDL cholesterol is calculated using the Rodriguez-NIH equation. LAB 50070-8(LOINC) NonHDLc SerPl-mCnc 36 <130 mg/dL Result Comment: <130 mg/dL, Optimal 130-159 mg/dL, Near optimal/above optimal 160-189 mg/dL, Borderline high 190-219 mg/dL, High >219 mg/dL, Very high Secondary prevention optimal non HDL Cholesterol levels are recommended to be <100 mg/dL LAB 56975-1(LOINC) VLDLc SerPl Calc-mCnc 18 <30 mg/dL LAB 9830-1(LOINC) Cholest/HDLc SerPl 1.84 <5.10 LAB 34626-4(LOINC) LDLc/HDLc SerPl <0.47 <2.54 Result Comment: Reference: 1. National Cholesterol Education Program ATP III Guideline At-A-Glance Quick Desk Reference: National Heart, Lung, and Blood [place]. National Institutes of Health. 2001: NIH Publication No. 01-3305. 2. An International Atherosclerosis Society position paper: global recommendations for the management of dyslipidemia: executive summary, Atherosclerosis. 2014: 232(2):410-413. LAB FT FASTING TIME 12 hrs Performed By: #### 93234-4, 3016-3, 94675-8, 56138-6 #### [facility] CLIA [id number] [address] [place] [id number] [place] RENAL FUNC 2000 PNL SERPL Collected: 12:03 PM Status: F Source: [facility] Order Comment: Specimen Type : BLOOD SPECIMEN Ordering Facility: [facility] Address: [address] [place], [place] [address] [address] TYPE CODE TESTS RESULT OUT OF RANGE REFERENCE UNITS LAB 1751-7(LOINC) Albumin SerPl-mCnc 3.8 Low 3.9-4.9 g/dL LAB 75433-2(LOINC) Calcium SerPl-mCnc 9.5 8.5-10.2 mg/dL LAB 2777-1(LOINC) Phosphate SerPl-mCnc 3.2 2.7-4.8 mg/dL LAB 2345-7(LOINC) Glucose SerPl-mCnc 88 74-99 mg/dL Result Comment: The [place] Diabetes Association (ADA) provides guidance for cutoff values for fasting glucose and random glucose. The ADA defines fasting as no caloric intake for at least 8 hours. Fasting plasma glucose results between 100 to 125 mg/dL indicate increased risk for diabetes (prediabetes). Fasting plasma glucose results greater than or equal to 126 mg/dL meet the criteria for diagnosis of diabetes. In the absence of unequivocal hyperglycemia, results should be confirmed by repeat testing. In a patient with classic symptoms of hyperglycemia or hyperglycemic crisis, random plasma glucose results greater than or equal to 200 mg/dL meet the criteria for diagnosis of diabetes. Reference: Standards of Medical Care in Diabetes 2016, [place] [employer] Association. Diabetes Care. 2016.39(Suppl 1). LAB 3094-0(LOINC) BUN SerPl-mCnc 13 9-24 mg/ dL LAB 2160-0(LOINC) Creat SerPl-mCnc 1.47 High 0.73-1.22 mg/dL LAB 2951-2(LOINC) Sodium SerPl-sCnc 140 136-144 mmol/L LAB 2823-3(LOINC) Potassium SerPl-sCnc 4.2 3.7-5.1 mmol/L LAB 2075-0(LOINC) Chloride SerPl-sCnc 104 98-107 mmol/L LAB 2028-9(LOINC) CO2 SerPl-sCnc 22 22-30 mmo l/L LAB 1863-0(LOINC) Anion Gap4 SerPl-sCnc 14 8-15 mmol/L LAB 48369-5(LOINC) Creatinine + eGFR Pnl SerPlBld 50 Low >=60 mL/min/1. 73m??? Result Comment: Estimated Gl omerular Filtration Rate (eGFR) is calculated using the 2020 CKD-EPI creatinine equation. This equation utilizes serum creatinine, sex, and age as parameters. The creatinine assay has traceable calibration to isotope dilution-mass spectrometry. Refer to KDIGO guidelines for clinical interpretation. In patients with unstable renal function, e.g. those with acute kidney injury, the eGFR may not accurately reflect actual GFR. Performed By: #### 75749-4, 3016-3, 86846-2, 70927-8 #### [facility] CLIA [id number] [address] STATES OF [facility] TSH SERPL-ACNC Collected: 12:03 PM Status: F Source: [facility] Order Comment: Specimen Type : BLOOD SPECIMEN Ordering Facility: [facility] Address: [address] [place] [address] TYPE CODE TESTS RESULT OUT OF RANGE REFERENCE UNITS LAB 79305-6(LOINC) TSH SerPl DL<=0.005 mIU/L-aCnc 0.083 Low 0.270-4.200 mIU/L Performed By: #### 98984-3, 3016-3, 92599-7, 97008-0 #### [facility] CLIA [id number] [address] OF [facility] DEPRECATED HGB A1C BLD Collected: 08/22 12:03 PM Status: F Source: [facility] Order Comment: Specimen Type : BLOOD SPECIMEN Ordering Facility: [facility] Address: [address] [place], [place] [id number] TYPE CODE TESTS RESULT OUT OF RANGE REFERENCE UNITS LAB 4548-4(LOINC) HbA1c MFr Bld 4.7 4.3-5.6 % Result Comment: [place] [employer] Association guidelines indicate that patients with HgbA1c in the range 5.7-6.4% are at increased risk for development of diabetes, and intervention by lifestyle modification may be beneficial. HgbA1c greater or equal to 6.5% is considered diagnostic of diabetes. LAB 27071-8(LOINC) Est. average glucose Bld gHb Est-mCnc 88 mg/dL Result Comment: eAG: (Estima kenya average glucose) is a calculated value from HgbA1c and is patient financial representative of the average blood glucose level in the last 2-3 month period. Performed By: #### 68491-6 # ### [facility] CLIA [id number] [address] [place] [address] [place] SERPL-MCNC Collected: 08/22/2024 12:03 PM S tatus: F Source: [facility] Order Comment: Specimen Type : BLOOD SPECIMEN Ordering Facility: [facility] Address: [address] [place] [address] TYPE CODE TESTS RESULT OUT OF RANGE REFERENCE UNITS LAB 2276-4(LOINC) Ferritin SerPl-mCnc 146.0 30.3-565.7 ng/mL Performed By: #### 2039-6, 2 276-4 #### [facility] CLIA [id number] [address] [place] SERPL-MCNC Collected: 12:03 PM Status: F Source: [facility] Order Comment: Specimen Type : BLOOD SPECIMEN Ordering Facility: [facility] Address: [address] [place] [address] TYPE CODE TESTS RESULT OUT OF RANGE REFERENCE UNITS LAB 2038-6(LOINC) CEA SerPl-mCnc 3.9 High <3.0 ng/mL Result Comment: This is a [employer] assay using chemiluminescence test methodology. Results determined by different manufacturers may not be comparable Performed By: #### 2039-6, 2 276-4 #### [facility] CLIA [id number] [address] CBC W AUTO DIFF BLD Collected: 08/22/2024 12:03 PM S tatus: F Source: [facility] Order Comment: Specimen Type : BLOOD SPECIMEN Ordering Facility: [facility] Address: [address] [place] [address] [place] [address] TYPE CODE TESTS RESULT OUT OF RANGE REFERENCE UNITS LAB 6690-2(LOINC) WBC # Bld Auto 6.59 3.70-11.00 k/uL LAB 789-8(LOINC) RBC # Bld Auto 4.40 4.20-6.00 m/ uL LAB 718-7(LOINC) Hgb Bld-mCnc 13.0 13.0-17.0 g/dL LAB 4544-3(LOINC) Hct VFr Bld Auto 44.4 39.0-51.0 % LAB 787-2(LOINC) MCV RBC Auto 100.9 High 80.0-100.0 fL LAB 785-6(LOINC) MCH RBC Qn Auto 29.5 26.0-34.0 p g LAB 786-4(LOINC) MCHC RBC Auto-mCnc 29.3 Low 30.5-36.0 g/dL LAB 26167-7(LOINC) RDW RBC-Rto 17.4 High 11.5-15.0 % LAB 777-3(LOINC) Platelet # Bld Auto Result Comment: No clot dete cted.Platelets Clumped Estimate Low. LAB 75762-2(LOINC) PMV Bld Auto 13.0 High 9.0-12.7 fL LAB 770-8(LOINC) Neutrophils/leuk NFr Bld Auto 67.0 % LAB 751-8(LOINC) Neutrophils # Bld Auto 4.42 1.45-7.50 k/uL LAB 736-9(LOINC) Lymphocytes/leuk NFr Bld Auto 23.8 % LAB 731-0(LOINC) Lymphocytes # Bld Auto 1.57 1.00-4.00 k/uL LAB 5905-5(LOINC) Monocytes/leuk NFr Bld Auto 5.9 % LAB 742-7(LOINC) Monocytes # Bld Auto 0.39 <0.87 k/uL LAB 713-8(LOINC) Eosinophil/leuk NFr Bld Auto 1.7 % LAB 711-2(LOINC) Eosinophil # Bld Auto 0.11 <0.46 k/uL LAB 706-2(LOINC) Basophils/leuk NFr Bld Auto 1.1 % LAB 704-7(LOINC) Basophils # Bld Auto 0.07 <0.11 k/uL LAB 30634-5(LOINC) Imm Granulocytes/michelle k NFr Bld Auto 0.5 % LAB 98559-7(LOINC) Imm Granulocytes # Bld Auto 0.03 <0.10 k/uL LAB 65389-7(LOINC) nRBC/100 WBC Bld-Rto 0.0 /100 WBC LAB 771-6(LOINC) nRBC # Bld Auto <0.01 <0.01 k/u L LAB 79817-0(LOINC) Platelet # Bld Est Decreased LAB RBCMORBEAKER1 RED CELL MORPH Reviewed: normal LAB 13459-4([facility]) Differential method Bld Auto Performed By: #### 89212-5 # ### [facility] CLIA [id number] [address] PROGRESS Observed: 08/22/2024 11:00 AM Status: COMPLETED Source: [facility] HNO ID: [id number] Author: JENAE SANTAMARIA MD Service: ? Author Type: Physician Type: Progress Notes Filed: 08/27/2024 11:10 Note Text: [facility] [address] [place] [address] Date of Evaluation: 08/22/2024 Patient Name: Emelia Johnson : 1950 Subjective Shellie Johnson is a 74 year old male with complex medical history including multiple recent hospitalizations who presents for follow up visit. Patient presents with son today who helped provide some history. Since his visit in March 2024, patient had been admitted 07/01/2024 to 07/07/2024 and 07/13/2024 to 07/20/2024. The first admission was related to urosepsis with patient presenting to ER with N/V and dysuria. Patient at the time also noted worsening LLE swelling with venous duplex negative for DVT. Blood cultures were negative but urine culture grew MRSA. 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 Patient was seen by vascular surgery (Dr. Thompson) with patient undergoing arch aortogram with angioplasty and stent placement of L profundofemoral artery on 07/06/2024. Patient was also evaluated by TOOLS ADMINISTRATOR. Patient underwent EGD with GI (Dr. Ramos) on 07/04/2024 and found to have severe erosive esophagitis, benign appearing esophageal stenosis which was dilated and chronic duodenitis. Patient was recommended re-evaluation with EGD in 1 month and prescribed protonix 40 mg BID for 8 weeks. The second admission was related to GI bleeding. Patient was seen by GI again. Eliquis and ASA were stopped during second admission due to risk of bleeding. Since discharge, patient has not followed up with GI, but did follow up with vascular surgeon. Patient's LLE swelling has improved since hospitalization with daily wrapping. Previous CT AP from hospitalization showed R hydronephrosis and hydroureter but no interventions were made. Patient's son reports that patient is eating well as long as he takes his time and remains upright. He has not experienced any recent emesis. He is also making adequate urine, with increased output when he drinks more fluids. He is drinking 3 cups of cranberry juice daily. Patient has not followed up with urology for some time and had not seen nephrology yet. He also has not followed up with hem/onc for history of rectal cancer. Patient last saw vascular surgery last Wednesday. Patient has not made appt to see GI for follow up EGD and for determination of safety to restart ASA and Eliquis. Review of Systems Constitutional: Negative for appetite change, chills, fever and unexpected weight change. HENT: Negative for trouble swallowing. Eyes: Negative for visual disturbance. Respiratory: Positive for cough. Negative for shortness of breath. Cardiovascular: Negative for chest pain and leg swelling. Gastrointestinal: Negative for abdominal pain, blood in stool, constipation, diarrhea, nausea and vomiting. Endocrine: Negative for polydipsia and polyuria. Genitourinary: Negative for decreased urine volume and dysuria. Musculoskeletal: Positive for arthralgias, back pain and gait problem. Skin: Positive for wound. Negative for rash. Neurological: Positive for weakness (residual L sided weakness from previous stroke). Negative for dizziness and light-headedness. Hematological: Does not bruise/bleed easily. Psychiatric/Behavioral: Negative for confusion and sleep disturbance. PAST MEDICAL HISTORY Diagnosis Date Abdominal aneurysm without mention of rupture Aneurysm - Abdominal Aorta Atherosclerosis of [place] arteries of the extremities with intermittent claudication ASO - Extremities AND Claudication CAD (coronary artery disease) Coronary artery disease Cancer (HCC) CKD (chronic kidney disease) stage 3, GFR 30-59 ml/min (HCC) Colon cancer (HCC) Depression Diabetes (HCC) Dyslipidemia Former smoker quit 2 weeks ago Hyperlipidemia Hypertension Hypertrophy of prostate with urinary obstruction and other lower urinary tract symptoms (LUTS) Hypertrophy of the prostate with obstruction Obesity Occlusion and stenosis of carotid artery with cerebral infarction ASO - Carotid W/O Infarction Other psoriasis and similar disorders Psoriasis Retention of urine Stroke (cerebrum) ([facility]) residual L sided weakness Unspecified hemorrhoids without mention of complication Hemorrhoids Unspecified hypothyroidism Hypothyroidism PAST SURGICAL HISTORY Procedure Laterality Date BYP OTH/THN VEIN AORTOBIFEMORAL 2013 aortobifem LAPAROSCOPIC HEMICOLECTOMY colostomy PAST SURGICAL HISTORY OF Right 02/13/2020 [facility] FAMILY HISTORY Problem Relation Age of Onset Diabetes Father Stroke ( age 89) Diabetes Mother Stroke ( age 88) Stroke Mother Diabetes Sister Brain ( age 64) Diabetes Brother other (Old Age) Maternal Grandmother age 98 Diabetes Maternal Grandfather No Ocular Disease No Family History Social History Tobacco Use Smoking status: Former Current packs/day: 0.00 Average packs/day: 3.0 packs/day for 50.0 years (150.0 ttl pk-yrs) Types: Cigars, Cigarettes Start date: 10/28/1963 Quit date: 10/27/2013 Years since quittin.8 Smokeless tobacco: Never Vaping Use Vaping status: Never Used Substance Use Topics Alcohol use: No Drug use: No Current Outpatient Medications Medication Sig ergocalciferol 50,000 unit capsule (VITAMIN D2, DRISDOL) TAKE 1 CAPSULE BY MOUTH ONE TIME A WEEK. amLODIPine (NORVASC) 5 mg tablet TAKE 1 TABLET BY MOUTH EVERY DAY loratadine (CLARITIN) 10 mg tablet TAKE 1 TABLET BY MOUTH EVERY DAY icosapent ethyl (VASCEPA) 1 gram capsule Take 2 capsules by mouth two times a day. levothyroxine (SYNTHROID) 100 mcg tablet Take 1 tablet by mouth daily before breakfast. finasteride (PROSCAR) 5 mg tablet Take 1 tablet by mouth once daily. rosuvastatin (CRESTOR) 20 mg tablet Take 1 tablet by mouth daily at bedtime. albuterol HFA (PROVENTIL HFA) 90 mcg/actuation inhaler Inhale 1-2 Puffs as instructed four times a day as needed for wheezing/shortness of breath. fluticasone (FLONASE) 50 mcg/actuation nasal spray SPRAY 1 SPRAY INTO EACH NOSTRIL AT BEDTIME FERROUS SULFATE, BULK, [facility] Blood Pressure Test Kit-Large (CLEVER CHOICE BP MONITOR) 1 Each two times a day. flash glucose sensor (FREESTYLE HEMA 14 DAY SENSOR) kit 1 Each four times daily. Fenofibrate 160 mg tablet Take 1 tablet by mouth once daily. rhajvckhbqg-gnoufkidc-bzjvvylv (TRELEGY ELLIPTA) 100-62.5-25 mcg inhalation powder Inhale 1 puff as instructed once daily. linaGLIPtin (TRADJENTA) 5 mg tab Take 1 tablet by mouth once daily. pantoprazole DR (PROTONIX) 40 mg tablet Take 1 tablet by mouth two times a day. doxycycline monohydrate (MONODOX) 100 mg capsule Take 1 capsule by mouth two times a day for 7 days. ELIQUIS 5 mg tab(s) Take 1 tablet by mouth two times a day. (Patient not taking: Reported on 08/22/2024) aspirin, enteric coated (ASPIRIN, ENTERIC COATED) 81 mg EC tablet Take 1 tablet by mouth once daily. (Patient not taking: Reported on 08/22/2024) No current facility-administered medications for this visit. Objective BP 136/82 (BP Site: Right Arm, BP Position: Sitting, BP Cuff Size: Regular Adult) Pulse 100 Wt 80.7 kg (178 lb) SpO2 99% BMI 27.88 kg/m? Physical Exam Vitals reviewed. Constitutional: General: He is not in acute distress. Appearance: Normal appearance. He is not ill-appearing, toxic-appearing or diaphoretic. HENT: Head: Normocephalic and atraumatic. Right Ear: External ear normal. Left Ear: External ear normal. Mouth/Throat: Mouth: Mucous membranes are moist. Pharynx: Oropharynx is clear. Eyes: General: No scleral icterus. Extraocular Movements: Extraocular movements intact. Conjunctiva/sclera: Conjunctivae normal. Pupils: Pupils are equal, round, and reactive to light. Cardiovascular: Rate and Rhythm: Normal rate and regular rhythm. Heart sounds: No murmur heard. Pulmonary: Effort: Pulmonary effort is normal. No respiratory distress. Breath sounds: Normal breath sounds. No wheezing, rhonchi or rales. Abdominal: General: Abdomen is flat. Bowel sounds are normal. There is no distension. Palpations: Abdomen is soft. Tenderness: There is no abdominal tenderness. Musculoskeletal: General: Normal range of motion. Cervical back: Normal range of motion. Right lower leg: No edema. Left lower leg: Edema (improved) present. Skin: General: Skin is warm and dry. Coloration: Skin is not jaundiced. Findings: Wound (left hand, with increased erythema) present. Neurological: Mental Status: He is alert and oriented to person, place, and time. Psychiatric: Mood and Affect: Mood normal. Behavior: Behavior normal. Thought Content: Thought content normal. Judgment: Judgment normal. Data Reviewed: No new labs ASSESSMENT/PLAN: 1. Hospital discharge follow-up - ICD9: V67.59, ICD10: Z09 (primary diagnosis) - reviewed discharge summary and medication changes with patient from recent hospitalization, only able to review first hospitalization information as I did not receive information from most recent hospitalization 2. Recurrent UTI - ICD9: 599.0, ICD10: N39.0 recurrent - Patient education for prevention given - patient gets regular maddox catheter exchange with home health - URINALYSIS (WITH MICROSCOPIC) WITH CULTURE IF INDICATED 3. Type 2 diabetes mellitus with other circulatory complication, with long-term current use of insulin (HCC) - ICD9: 250.70, V58.67, ICD10: E11.59, Z79.4 - Control undetermined, due for labs - Continue current medications - Counseled on healthy diet and regular exercise - LIPID PANEL, FASTING - HEMOGLOBIN A1C - ALBUMIN/CREATININE RATIO, URINE - TRADJENTA 5 MG TABLET 4. H/O aorto-femoral bypass - ICD9: V15.1, ICD10: Z95.828 - patient following with Dr. Thompson (vascular surgery) 5. Abdominal aortic aneurysm (AAA) without rupture, unspecified part - ICD9: 441.4, ICD10: I71.40 - patient following with vascular surgery 6. 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 rupture, unspecified part - ICD9: 441.7, ICD10: I71.60 - patient following with vascular surgery 7. Stage 3a chronic kidney disease (HCC) - ICD9: 585.3, ICD10: N18.31 - eGFR: 50 Due for labs - Counseled on avoiding NSAIDs, adequate hydration - Counseled on low sodium diet - RENAL FUNCTION PANEL - COMPLETE BLOOD COUNT AND DIFFERENTIAL - FERRITIN - IRON AND TIBC - CONSULT TO NEPHROLOGY 8. Vitamin D deficiency - ICD9: 268.9, ICD10: E55.9 - VITAMIN D 25 HYDROXY 9. Unspecified hypothyroidism - ICD9: 244.9, ICD10: E03.9 - Instructed patient on importance of taking on an empty stomach either first thing in the morning or at bedtime. - patient currently still taking 200 mcg daily of synthroid per review of medication fills - check TSH today - THYROID STIMULATING HORMONE 10. Encounter for immunization - ICD9: V03.89, ICD10: Z23 - RSV PRINTED PHARMACY INSTRUCTIONS - SHINGRIX PRINTED PHARMACY INSTRUCTIONS - TDAP PRINTED PHARMACY INSTRUCTIONS 11. History of rectal cancer - ICD9: V10.06, ICD10: Z85.048 - advised to re- establish with hem/onc given loss to follow up from over 1 year ago - CONSULT TO ONCOLOGY - CARCINOEMBRYONIC ANTIGEN 12. Urinary retention - ICD9: 788.20, ICD10: R33.9 - CONSULT TO UROLOGY - US KIDNEY/BLADDER 13. Hydronephrosis of right kidney - ICD9: 591, ICD10: N13.30 - CONSULT TO UROLOGY - US KIDNEY/BLADDER 14. Chronic obstructive pulmonary disease, unspecified COPD type (HCC) - ICD9: 496, ICD10: J44.9 - Symptoms controlled - Continue current medications - Encouraged physical activity and exercise - TRELEGY ELLIPTA 100 MCG-62.5 MCG-25 MCG POWDER FOR INHALATION 15. Eosinophilic esophagitis - ICD9: 530.13, ICD10: K20.0 - PANTOPRAZOLE 40 MG TABLET,DELAYED RELEASE 16. Wound infection - ICD9: 958.3, ICD10: T14.8XXA, L08.9 - Begin treatment with doxycycline - wound on left hand - DOXYCYCLINE MONOHYDRATE 100 MG CAPSULE 17. Screening for diabetic retinopathy - ICD9: V80.2, ICD10: Z13.5 - CONSULT TO OPHTHALMOLOGY Jenae Santamaria MD Return in about 3 months (around 11/22/2024), or if symptoms worsen or fail to improve. Discussed the above with the patient using shared decision making. The patient is in agreement with the diagnostic and treatment plans. I spent a total of 50 minutes on the date of the service which included [id number] patient care, completing clinical documentation, obtaining and/or reviewing separately obtained history, performing a medically appropriate examination, counseling and educating the patient/family/caregiver, and ordering medications, tests, or procedures. Recording using [email or web address] software for draft documentation of the visit was discussed with the patient/authorized patient financial representative; all questions welcomed and answered. Patient/authorized patient financial representative agreed to proceed CNOV Observed: 08/22/2024 10:40 AM Status: COMPLETED Source: [facility] Office Visit (AGSAM) EMELIA JOHNSON ([id number]) 1950 M Date Time Provider Department 08/22/24 10:40 AM JENAE SANTAMARIA AGS During your visit today, we recorded the following information about you: Pulse Blood pressure Weight 100/minute 136/82 80.7 kg Jenae Santamaria MD 08/27/2024 11:10 AM Signed [facility] [address] [place] [address] Date of Evaluation: 08/22/2024 Patient Name: Emelia Johnson : 1950 Michele Shellie Johnson is a 74 year old male with complex medical history including multiple recent hospitalizations who presents for follow up visit. Patient presents with son today who helped provide some history. Since his visit in March 2024, patient had been admitted 07/01/2024 to 07/07/2024 and 07/13/2024 to 07/20/2024. The first admission was related to urosepsis with patient presenting to ER with N/V and dysuria. Patient at the time also noted worsening LLE swelling with venous duplex negative for DVT. Blood cultures were negative but urine culture grew MRSA. 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 Patient was seen by vascular surgery (Dr. Thompson) with patient undergoing arch aortogram with angioplasty and stent placement of L profundofemoral artery on 07/06/2024. Patient was also evaluated by TOOLS ADMINISTRATOR. Patient underwent EGD with GI (Dr. Ramos) on 07/04/2024 and found to have severe erosive esophagitis, benign appearing esophageal stenosis which was dilated and chronic duodenitis. Patient was recommended re-evaluation with EGD in 1 month and prescribed protonix 40 mg BID for 8 weeks. The second admission was related to GI bleeding. Patient was seen by GI again. Eliquis and ASA were stopped during second admission due to risk of bleeding. Since discharge, patient has not followed up with GI, but did follow up with vascular surgeon. Patient's LLE swelling has improved since hospitalization with daily wrapping. Previous CT AP from hospitalization showed R hydronephrosis and hydroureter but no interventions were made. Patient's son reports that patient is eating well as long as he takes his time and remains upright. He has not experienced any recent emesis. He is also making adequate urine, with increased output when he drinks more fluids. He is drinking 3 cups of cranberry juice daily. Patient has not followed up with urology for some time and had not seen nephrology yet. He also has not followed up with hem/onc for history of rectal cancer. Patient last saw vascular surgery last Wednesday. Patient has not made appt to see GI for follow up EGD and for determination of safety to restart ASA and Eliquis. Review of Systems Constitutional: Negative for appetite change, chills, fever and unexpected weight change. HENT: Negative for trouble swallowing. Eyes: Negative for visual disturbance. Respiratory: Positive for cough. Negative for shortness of breath. Cardiovascular: Negative for chest pain and leg swelling. Gastrointestinal: Negative for abdominal pain, blood in stool, constipation, diarrhea, nausea and vomiting. Endocrine: Negative for polydipsia and polyuria. Genitourinary: Negative for decreased urine volume and dysuria. Musculoskeletal: Positive for arthralgias, back pain and gait problem. Skin: Positive for wound. Negative for rash. Neurological: Positive for weakness (residual L sided weakness from previous stroke). Negative for dizziness and light-headedness. Hematological: Does not bruise/bleed easily. Psychiatric/Behavioral: Negative for confusion and sleep disturbance. PAST MEDICAL HISTORY Diagnosis Date Abdominal aneurysm without mention of rupture Aneurysm - Abdominal Aorta Atherosclerosis of [place] arteries of the extremities with intermittent claudication ASO - Extremities AND Claudication CAD (coronary artery disease) Coronary artery disease Cancer (HCC) CKD (chronic kidney disease) stage 3, GFR 30-59 ml/min (HCC) Colon cancer (HCC) Depression Diabetes (HCC) Dyslipidemia Former smoker quit 2 weeks ago Hyperlipidemia Hypertension Hypertrophy of prostate with urinary obstruction and other lower urinary tract symptoms (LUTS) Hypertrophy of the prostate with obstruction Obesity Occlusion and stenosis of carotid artery with cerebral infarction ASO - Carotid W/O Infarction Other psoriasis and similar disorders Psoriasis Retention of urine Stroke (cerebrum) ([facility]) residual L sided weakness Unspecified hemorrhoids without mention of complication Hemorrhoids Unspecified hypothyroidism Hypothyroidism PAST SURGICAL HISTORY Procedure Laterality Date BYP OTH/THN VEIN AORTOBIFEMORAL 2013 aortobifem LAPAROSCOPIC HEMICOLECTOMY colostomy PAST SURGICAL HISTORY OF Right 02/13/2020 [facility] FAMILY HISTORY Problem Relation Age of Onset Diabetes Father Stroke ( age 89) Diabetes Mother Stroke ( age 88) Stroke Mother Diabetes Sister Brain ( age 64) Diabetes Brother other (Old Age) Maternal Grandmother age 98 Diabetes Maternal Grandfather No Ocular Disease No Family History Social History Tobacco Use Smoking status: Former Current packs/day: 0.00 Average packs/day: 3.0 packs/day for 50.0 years (150.0 ttl pk-yrs) Types: Cigars, Cigarettes Start date: 10/28/1963 Quit date: 10/27/2013 Years since quittin.8 Smokeless tobacco: Never Vaping Use Vaping status: Never Used Substance Use Topics Alcohol use: No Drug use: No Current Outpatient Medications Medication Sig ergocalciferol 50,000 unit capsule (VITAMIN D2, DRISDOL) TAKE 1 CAPSULE BY MOUTH ONE TIME A WEEK. amLODIPine (NORVASC) 5 mg tablet TAKE 1 TABLET BY MOUTH EVERY DAY loratadine (CLARITIN) 10 mg tablet TAKE 1 TABLET BY MOUTH EVERY DAY icosapent ethyl (VASCEPA) 1 gram capsule Take 2 capsules by mouth two times a day. levothyroxine (SYNTHROID) 100 mcg tablet Take 1 tablet by mouth daily before breakfast. finasteride (PROSCAR) 5 mg tablet Take 1 tablet by mouth once daily. rosuvastatin (CRESTOR) 20 mg tablet Take 1 tablet by mouth daily at bedtime. albuterol HFA (PROVENTIL HFA) 90 mcg/actuation inhaler Inhale 1-2 Puffs as instructed four times a day as needed for wheezing/shortness of breath. fluticasone (FLONASE) 50 mcg/actuation nasal spray SPRAY 1 SPRAY INTO EACH NOSTRIL AT BEDTIME [facility] Blood Pressure Test Kit-Large (CLEVER CHOICE BP MONITOR) 1 Each two times a day. flash glucose sensor (FREESTYLE HEMA 14 DAY SENSOR) kit 1 Each four times daily. Fenofibrate 160 mg tablet Take 1 tablet by mouth once daily. knekzonnivr-bbnwbnvow-jrjpxzbb (TRELEGY ELLIPTA) 100-62.5-25 mcg inhalation powder Inhale 1 puff as instructed once daily. linaGLIPtin (TRADJENTA) 5 mg tab Take 1 tablet by mouth once daily. pantoprazole DR (PROTONIX) 40 mg tablet Take 1 tablet by mouth two times a day. doxycycline monohydrate (MONODOX) 100 mg capsule Take 1 capsule by mouth two times a day for 7 days. ELIQUIS 5 mg tab(s) Take 1 tablet by mouth two times a day. (Patient not taking: Reported on 08/22/2024) aspirin, enteric coated (ASPIRIN, ENTERIC COATED) 81 mg EC tablet Take 1 tablet by mouth once daily. (Patient not taking: Reported on 08/22/2024) No current facility-administered medications for this visit. Objective BP 136/82 (BP Site: Right Arm, BP Position: Sitting, BP Cuff Size: Regular Adult) Pulse 100 Wt 80.7 kg (178 lb) SpO2 99% BMI 27.88 kg/m? Physical Exam Vitals reviewed. Constitutional: General: He is not in acute distress. Appearance: Normal appearance. He is not ill-appearing, toxic-appearing or diaphoretic. HENT: Head: Normocephalic and atraumatic. Right Ear: External ear normal. Left Ear: External ear normal. Mouth/Throat: Mouth: Mucous membranes are moist. Pharynx: Oropharynx is clear. Eyes: General: No scleral icterus. Extraocular Movements: Extraocular movements intact. Conjunctiva/sclera: Conjunctivae normal. Pupils: Pupils are equal, round, and reactive to light. Cardiovascular: Rate and Rhythm: Normal rate and regular rhythm. Heart sounds: No murmur heard. Pulmonary: Effort: Pulmonary effort is normal. No respiratory distress. Breath sounds: Normal breath sounds. No wheezing, rhonchi or rales. Abdominal: General: Abdomen is flat. Bowel sounds are normal. There is no distension. Palpations: Abdomen is soft. Tenderness: There is no abdominal tenderness. Musculoskeletal: General: Normal range of motion. Cervical back: Normal range of motion. Right lower leg: No edema. Left lower leg: Edema (improved) present. Skin: General: Skin is warm and dry. Coloration: Skin is not jaundiced. Findings: Wound (left hand, with increased erythema) present. Neurological: Mental Status: He is alert and oriented to person, place, and time. Psychiatric: Mood and Affect: Mood normal. Behavior: Behavior normal. Thought Content: Thought content normal. Judgment: Judgment normal. Data Reviewed: No new labs ASSESSMENT/PLAN: 1. Hospital discharge follow-up - ICD9: V67.59, ICD10: Z09 (primary diagnosis) - reviewed discharge summary and medication changes with patient from recent hospitalization, only able to review first hospitalization information as I did not receive information from most recent hospitalization 2. Recurrent UTI - ICD9: 599.0, ICD10: N39.0 recurrent - Patient education for prevention given - patient gets regular maddox catheter exchange with home health - URINALYSIS (WITH MICROSCOPIC) WITH CULTURE IF INDICATED 3. Type 2 diabetes mellitus with other circulatory complication, with long-term current use of insulin (HCC) - ICD9: 250.70, V58.67, ICD10: E11.59, Z79.4 - Control undetermined, due for labs - Continue current medications - Counseled on healthy diet and regular exercise - LIPID PANEL, FASTING - HEMOGLOBIN A1C - ALBUMIN/CREATININE RATIO, URINE - TRADJENTA 5 MG TABLET 4. H/O aorto-femoral bypass - ICD9: V15.1, ICD10: Z95.828 - patient following with Dr. Thompson (vascular surgery) 5. Abdominal aortic aneurysm (AAA) without rupture, unspecified part - ICD9: 441.4, ICD10: I71.40 - patient following with vascular surgery 6. 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 rupture, unspecified part - ICD9: 441.7, ICD10: I71.60 - patient following with vascular surgery 7. Stage 3a chronic kidney disease (HCC) - ICD9: 585.3, ICD10: N18.31 - eGFR: 50 Due for labs - Counseled on avoiding NSAIDs, adequate hydration - Counseled on low sodium diet - RENAL FUNCTION PANEL - COMPLETE BLOOD COUNT AND DIFFERENTIAL - FERRITIN - IRON AND TIBC - CONSULT TO NEPHROLOGY 8. Vitamin D deficiency - ICD9: 268.9, ICD10: E55.9 - VITAMIN D 25 HYDROXY 9. Unspecified hypothyroidism - ICD9: 244.9, ICD10: E03.9 - Instructed patient on importance of taking on an empty stomach either first thing in the morning or at bedtime. - patient currently still taking 200 mcg daily of synthroid per review of medication fills - check TSH today - THYROID STIMULATING HORMONE 10. Encounter for immunization - ICD9: V03.89, ICD10: Z23 - RSV PRINTED PHARMACY INSTRUCTIONS - SHINGRIX PRINTED PHARMACY INSTRUCTIONS - TDAP PRINTED PHARMACY INSTRUCTIONS 11. History of rectal cancer - ICD9: V10.06, ICD10: Z85.048 - advised to re- establish with hem/onc given loss to follow up from over 1 year ago - CONSULT TO ONCOLOGY - CARCINOEMBRYONIC ANTIGEN 12. Urinary retention - ICD9: 788.20, ICD10: R33.9 - CONSULT TO UROLOGY - US KIDNEY/BLADDER 13. Hydronephrosis of right kidney - ICD9: 591, ICD10: N13.30 - CONSULT TO UROLOGY - US KIDNEY/BLADDER 14. Chronic obstructive pulmonary disease, unspecified COPD type (HCC) - ICD9: 496, ICD10: J44.9 - Symptoms controlled - Continue current medications - Encouraged physical activity and exercise - TRELEGY ELLIPTA 100 MCG-62.5 MCG-25 MCG POWDER FOR INHALATION 15. Eosinophilic esophagitis - ICD9: 530.13, ICD10: K20.0 - PANTOPRAZOLE 40 MG TABLET,DELAYED RELEASE 16. Wound infection - ICD9: 958.3, ICD10: T14.8XXA, L08.9 - Begin treatment with doxycycline - wound on left hand - DOXYCYCLINE MONOHYDRATE 100 MG CAPSULE 17. Screening for diabetic retinopathy - ICD9: V80.2, ICD10: Z13.5 - CONSULT TO OPHTHALMOLOGY Jenae Santamaria MD Return in about 3 months (around 11/22/2024), or if symptoms worsen or fail to improve. Discussed the above with the patient using shared decision making. The patient is in agreement with the diagnostic and treatment plans. I spent a total of 50 minutes on the date of the service which included nkij-ux-slom patient care, completing clinical documentation, obtaining and/or reviewing separately obtained history, performing a medically appropriate examination, counseling and educating the patient/family/caregiver, and ordering medications, tests, or procedures. Recording using [email or web address] software for draft documentation of the visit was discussed with the patient/authorized patient financial representative; all questions welcomed and answered. Patient/authorized patient financial representative agreed to proceed Jenae Santamaria MD 08/22/2024 11:38 AM Signed - follow up with Dr. Ramos to discuss starting baby aspirin and eliquis Allergies As of Date: 08/22/2024 Noted Allergy Reaction LIPITOR (ATORVASTATIN) 11/17/2013 14 - Other: See Comments Comments: body aches Date Reviewed: 08/22/2024 Reviewed by: Jenae Santamaria MD - Fully Assessed Reason for Visit: Transition Of Care [4074] Cmt: D/C FROM [facility] on 08/05/24. 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] Stage 3a chronic kidney disease (HCC) [N18.31] Vitamin D deficiency [E55.9] Unspecified hypothyroidism [E03.9] Encounter for immunization [Z23] History of rectal cancer [Z85.048] Urinary retention [R33.9] Hydronephrosis of right kidney [N13.30] Chronic obstructive pulmonary disease, unspecified COPD type (HCC) [J44.9] Eosinophilic esophagitis [K20.0] Wound infection [T14.8XXA, L08.9] Screening for diabetic retinopathy [Z13.5] Order(s):VITAMIN D 25 HYDROXY [SQVITD] Order #: [id number] FUTURE THYROID STIMULATING HORMONE [SQTSH] Order #: [id number] FUTURE LIPID PANEL, FASTING [SQLIPB] Order #: [id number] FUTURE URINALYSIS (WITH MICROSCOPIC) WITH CULTURE IF INDICATED [SQUACII] Order #: [id number] FUTURE HEMOGLOBIN A1C [EFSDG5R] Order #: [id number] FUTURE ALBUMIN/CREATININE RATIO, URINE [SQUACR] Order #: [id number] FUTURE RENAL FUNCTION PANEL [SQRFP] Order #: [id number] FUTURE COMPLETE BLOOD COUNT AND DIFFERENTIAL [SQCBCDIF] Order #: [id number] FUTURE FERRITIN [SQFERR] Order #: [id number] FUTURE IRON AND TIBC [SQIRON] Order #: [id number] FUTURE RSV PRINTED PHARMACY INSTRUCTIONS [21301211] Order #: [id number]: 1 SHINGRIX PRINTED PHARMACY INSTRUCTIONS [] Order #: [id number]: 1 TDAP PRINTED PHARMACY INSTRUCTIONS [21301208] Order #: [id number]: 1 CONSULT TO UROLOGY [9040] Order #: [id number]: 1 FUTURE KIDNEY/BLADDER [3437972] Order #: [id number] FUTURE CONSULT TO ONCOLOGY [9022] Order #: [id number]: 1 FUTURE ikzpiskbnzo-owbbotjjz-patwqbcj (TRELEGY ELLIPTA) 100-62.5-25 mcg inhalation powderInhale 1 puff as instructed once daily.Disp: 60 eachRfl: 5 linaGLIPtin (TRADJENTA) 5 mg tabTake 1 tablet by mouth once daily.Disp: 90 tabletRfl: [address] (PROTONIX) 40 mg tabletTake 1 tablet by mouth two times a day.Disp: 180 tabletRfl: 1 CARCINOEMBRYONIC ANTIGEN [SQCEA] Order #: [id number] FUTURE CONSULT TO NEPHROLOGY [9017] Order #: [id number]: 1 FUTURE doxycycline monohydrate (MONODOX) 100 mg capsuleTake 1 capsule by mouth two times a day for 7 days.Disp: 14 capsuleRfl: 0 CONSULT TO OPHTHALMOLOGY [9023] Order #: [id number]: 1 FUTURE Prescriptions as of 08/27/2024 - levothyroxine (SYNTHROID) 175 mcg tablet Take 1 tablet by mouth daily before breakfast. - rosuvastatin (CRESTOR) 10 mg tablet Take 1 tablet by mouth daily at bedtime. - ferrous sulfate 325 mg (65 mg iron) tablet Take 1 tablet by mouth every other day. - naozgojdift-ghftodspq-ryrgxxwf (TRELEGY ELLIPTA) 100-62.5-25 mcg inhalation powder Inhale 1 puff as instructed once daily. - linaGLIPtin (TRADJENTA) 5 mg tab Take 1 tablet by mouth once daily. - pantoprazole DR (PROTONIX) 40 mg tablet Take 1 tablet by mouth two times a day. - doxycycline monohydrate (MONODOX) 100 mg capsule Take 1 capsule by mouth two times a day for 7 days. - ergocalciferol 50,000 unit capsule (VITAMIN D2, DRISDOL) TAKE 1 CAPSULE BY MOUTH ONE TIME A WEEK. - amLODIPine (NORVASC) 5 mg tablet TAKE 1 TABLET BY MOUTH EVERY DAY - loratadine (CLARITIN) 10 mg tablet TAKE 1 TABLET BY MOUTH EVERY DAY - icosapent ethyl (VASCEPA) 1 gram capsule Take 2 capsules by mouth two times a day. - ELIQUIS 5 mg tab(s) Take 1 tablet by mouth two times a day. - finasteride (PROSCAR) 5 mg tablet Take 1 tablet by mouth once daily. - aspirin, enteric coated (ASPIRIN, ENTERIC COATED) 81 mg EC tablet Take 1 tablet by mouth once daily. - albuterol HFA (PROVENTIL HFA) 90 mcg/actuation inhaler Inhale 1-2 Puffs as instructed four times a day as needed for wheezing/shortness of breath. - fluticasone (FLONASE) 50 mcg/actuation nasal spray SPRAY 1 SPRAY INTO EACH NOSTRIL AT BEDTIME - Blood Pressure Test Kit-Large ([place] CHOICE BP MONITOR) 1 Each two times a day. - flash glucose sensor (FREESTYLE HEMA 14 DAY SENSOR) kit 1 Each four times daily. - Fenofibrate 160 mg tablet Take 1 tablet by mouth once daily. Problem List As Of Date 08/22/2024 Noted Resolved 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*11/21/2013 02/08/2020 Atherosclerosis of [place] artery of extremity w*11/21/2013 Other hyperlipidemia [E78.49] Unspecified hypothyroidism [E03.9] Smoker [F17.200] 01/27/2015 Chronic ischemic right MCA stroke [Z86.73] 02/08/2020 CAD (coronary artery disease), [place] coronary *12/27/2013 Postprocedural hypotension [I95.81] 12/27/2013 09/25/2020 Stress hyperglycemia [R73.9] 12/27/2013 01/27/2015 Hypoxia [R09.02] 12/27/2013 12/28/2013 Acute blood loss anemia [D62] 12/30/2013 01/27/2015 Acute post-operative pain [G89.18] 01/03/2014 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] 01/03/2020 Embolic stroke involving right carotid artery (*02/08/2020 Symptomatic carotid artery stenosis [I65.29] 02/13/2020 BPH (benign prostatic hyperplasia) [N40.0] CKD (chronic kidney disease) stage 3, GFR 30-59* 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* Hemorrhoids [K64.9] Psoriasis [L40.9] Former smoker [Z87.891] AAA (abdominal aortic aneurysm) without rupture* 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 History of right-sided carotid endarterectomy [*03/13/2020 History of CVA (cerebrovascular accident) [Z86.*09/12/2020 Carotid artery disease (HCC) [I77.9] 09/12/2020 09/24/2020 Rectal cancer (HCC) [C20] 09/23/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HCC) [Z93.3] 09/23/2020 Acute postoperative respiratory insufficiency [*09/23/2020 10/18/2020 Metabolic acidosis [E87.20] 09/23/2020 09/24/2020 Electrolyte abnormality [E87.8] 09/23/2020 Hypoalbuminemia [E88.09] 09/24/2020 09/30/2020 Obesity, Class I, BMI 30-34.9 [E66.811] 09/26/2020 Essential (primary) hypertension [I10] 09/27/2020 Delirium [R41.0] 09/30/2020 10/18/2020 Idiopathic hypotension [I95.0] 09/30/2020 10/18/2020 Abnormal urinalysis [R82.90] 10/02/2020 Moderate protein-calorie malnutrition (HCC) [E4*10/03/2020 Postoperative ileus (HCC) [K91.89, K56.7] 10/04/2020 10/18/2020 On total parenteral nutrition (TPN) [Z78.9] 10/08/2020 10/13/2020 Peripherally inserted central catheter (PICC) i*10/08/2020 10/18/2020 Postoperative urinary retention [N99.89, R33.8] 10/08/2020 Hyponatremia [E87.1] 10/08/2020 10/18/2020 Urinary tract infection associated with indwell*10/13/2020 Other instructions from your clinician: - follow up with Dr. Ramos to discuss starting baby aspirin and eliquis Prescriptions ordered this encounter Disp Refills Start End TRELEGY ELLIPTA 100 MCG-62.5 MCG-25 * 60 e* 5 08/22/2024 Route: INH Sig: Inhale 1 puff as instructed once daily. TRADJENTA 5 MG TABLET 90 t* 1 08/22/2024 Route: PO Sig: Take 1 tablet by mouth once daily. PANTOPRAZOLE 40 MG TABLET,DELAYED RE* 180 * 1 08/22/2024 Route: PO Sig: Take 1 tablet by mouth two times a day. DOXYCYCLINE MONOHYDRATE 100 MG CAPSU* 14 c* 0 08/22/2024 08/29/2024 Route: PO Sig: Take 1 capsule by mouth two times a day for 7 days. Medications Discontinued During This Encounter Prescriptions - mshwdrahuzs-peugwhsqg-zjjkxrfc (TRELEGY ELLIPTA) 100-62.5-25 mcg inhalation powder (Discontinued) Inhale 1 Puff as instructed once daily. - linaGLIPtin (TRADJENTA) 5 mg tab (Discontinued) Take 1 tablet by mouth once daily. - pantoprazole DR (PROTONIX) 40 mg tablet (Discontinued) TAKE 1 TABLET BY MOUTH TWICE A DAY Level of Service: OFFICE/OUTPATIENT ESTABLISHED HIGH MDM 40 MIN [58804] Additional E/M codes: VISIT CPLX INHERENT EANDM ASSOC WITH MED * Disposition: Return in about 3 months (around 11/22/2024), or if symptoms worsen or fail to improve. Follow-up and Disposition History for Encounter Date Provider Department Center 08/22/2024 [id number], [facility] [address] Encounter Status:Closed by JENAE SANTAMARIA on 08/27/24 PROGRESS Observed: 08/15/2024 10:00 AM Status: COMPLETED Source: [facility] HNO ID: [id number] Author: ANTHONY FARMER, RN Service: ? Author Type: Registered Nurse Type: Progress Notes Filed: 08/15/2024 10:03 Note Text: TRANSITIONAL CARE MANAGEMENT (TCM) COMMUNITY MONITORING PROGRAM - [place] Provider Action/FYI: Contact out of 2 business day window SUMMARY: Pt discharged from [facility] on 08/05/24. Admitted for: acidosis Patient seen Inpatient MOOSE Visit? N/A. Patient seen ICARE Program? No. Contact made with patient: Yes Hi my name is Anthony Farmer RN and I am calling from the [facility] on behalf of your PCP, Jenae Santamaria MD I understand you were recently in the hospital so I am calling to check in with you to ensure you are feeling well now that you?re home. Do you mind if I ask you a few questions related to your hospital stay and well-being Yes Contact with patient post discharge, spoke to son. Patient identified by name and . Do you feel your health is BETTER, WORSE, or the SAME since leaving the hospital? Better ACTION TAKEN: Patient indicated symptoms are better or same, no action required. Continue outreach. N/A MEDICATIONS: Many patients have questions or concerns about their medications once they are home. Do you have any questions about taking your medications or which medication you should be on? No Do you need any medication refills at this time, including any of the medications you might take only when needed? No ACTION TAKEN: No action required For RNs or Pharmacy completing outreach ONLY, was a medication review completed? No Declined SOCIAL: We would like to make sure you have what you need so that your basics needs are met - including your personal safety. HEALTH LEADS SCREENING TOOL QUESTIONS: Do you often feel you lack companionship? No Do you ever need help reading or understanding hospital materials? No In the last 12 months, have you changed how you take medications to save money? No In the past 12 months, has lack of transportation kept you from medical appointments, work or getting things you need like food, or supplies? No In the last 12 months, did you ever eat less than you felt you should because there wasn't enough money for food? No During the winter, do you anticipate having a problem paying your heating bill? No In the next 2 months, are you worried you might not have stable housing? No Would you like to speak with a social work project manager/team coach to help give you support for any of these needs? No It can be normal to feel anxious or down during a time like this. Would you like to talk to a mental health professional about how you have been feeling? No ACTION TAKEN: No action taken DISCHARGE INTRUCTIONS: Your discharge instructions / After Visit Summary (AVS) are important in guiding you through the recovery process. Do you have any questions related to your discharge instructions? No Do you have all the necessary equipment and supplies at home? Yes ACTION TAKEN: No action required WRAP AROUND SERVICES: Primary Care first education/Where to go for Care Patient educated on importance of primary care provider follow up visit as well as specialty provider follow up visits as indicated. Inform the patient that if they have any questions or concerns prior to that appointment, to call their Primary Care Provider 's office right away. Primary care provider first education provided. I would like to help you schedule a hospital follow-up virtual or telephone visit with your PCP. ACTION TAKEN: TCM Primary Care Provider Visit Scheduled: No - Already has appointment scheduled-doesn't want to change it. Your doctor would like us to remind you of the recommendations regarding the coronavirus (Covid19) outbreak: Avoid public places as much as possible. Avoid close contact (within 6 feet) with others you don't live with, especially if they are sick. Stay home if you are sick. Wash your hands regularly for at least 20 seconds with soap and water. Wear a cloth mask in public places to help reduce community spread. Do not go to your Doctor's office unless instructed to do so. For any non-emergency symptoms, call your Doctor's office to get instructions on how to manage (we might recommend a telephone or virtual visit). For emergency symptoms, proceed to Emergency Department as usual but inform them of cough and fever symptoms TONIE if present (or call on the way if possible). EMMANUELLETOUTRDANKMORIAH Observed: 08/15/2024 12:00 AM Status: COMPLETED Source: [facility] Patient Outreach ([facility]) ALEXEMELIA Ranjeet ([id number]) 1950 M Date Time Provider Department 08/15/24 ANTHONY FARMER [facility] During your visit today, we recorded the following information about you: Anthony Farmer RN 08/15/2024 10:03 AM Signed TRANSITIONAL CARE MANAGEMENT (TCM) COMMUNITY MONITORING PROGRAM - [place] Provider Action/FYI: Contact out of 2 business day window SUMMARY: Pt discharged from [facility] on 08/05/24. Admitted for: acidosis Patient seen Inpatient MOOSE Visit? N/A. Patient seen ICARE Program? No. Contact made with patient: Yes Hi my name is Anthony Farmer RN and I am calling from the [facility] on behalf of your PCP, Jenae Santamaria MD I understand you were recently in the hospital so I am calling to check in with you to ensure you are feeling well now that you?re home. Do you mind if I ask you a few questions related to your hospital stay and well-being Yes Contact with patient post discharge, spoke to son. Patient identified by name and . Do you feel your health is BETTER, WORSE, or the SAME since leaving the hospital? Better ACTION TAKEN: Patient indicated symptoms are better or same, no action required. Continue outreach. N/A MEDICATIONS: Many patients have questions or concerns about their medications once they are home. Do you have any questions about taking your medications or which medication you should be on? No Do you need any medication refills at this time, including any of the medications you might take only when needed? No ACTION TAKEN: No action required For RNs or Pharmacy completing outreach ONLY, was a medication review completed? No Declined SOCIAL: We would like to make sure you have what you need so that your basics needs are met - including your personal safety. HEALTH LEADS SCREENING TOOL QUESTIONS: Do you often feel you lack companionship? No Do you ever need help reading or understanding hospital materials? No In the last 12 months, have you changed how you take medications to save money? No In the past 12 months, has lack of transportation kept you from medical appointments, work or getting things you need like food, or supplies? No In the last 12 months, did you ever eat less than you felt you should because there wasn't enough money for food? No During the winter, do you anticipate having a problem paying your heating bill? No In the next 2 months, are you worried you might not have stable housing? No Would you like to speak with a social work project manager/team coach to help give you support for any of these needs? No It can be normal to feel anxious or down during a time like this. Would you like to talk to a mental health professional about how you have been feeling? No ACTION TAKEN: No action taken DISCHARGE INTRUCTIONS: Your discharge instructions / After Visit Summary (AVS) are important in guiding you through the recovery process. Do you have any questions related to your discharge instructions? No Do you have all the necessary equipment and supplies at home? Yes ACTION TAKEN: No action required WRAP AROUND SERVICES: Primary Care first education/Where to go for Care Patient educated on importance of primary care provider follow up visit as well as specialty provider follow up visits as indicated. Inform the patient that if they have any questions or concerns prior to that appointment, to call their Primary Care Provider 's office right away. Primary care provider first education provided. I would like to help you schedule a hospital follow-up virtual or telephone visit with your PCP. ACTION TAKEN: [facility] Primary Care Provider Visit Scheduled: No - Already has appointment scheduled-doesn't want to change it. Your doctor would like us to remind you of the recommendations regarding the coronavirus (Covid19) outbreak: Avoid public places as much as possible. Avoid close contact (within 6 feet) with others you don't live with, especially if they are sick. Stay home if you are sick. Wash your hands regularly for at least 20 seconds with soap and water. Wear a cloth mask in public places to help reduce community spread. Do not go to your Doctor's office unless instructed to do so. For any non-emergency symptoms, call your Doctor's office to get instructions on how to manage (we might recommend a telephone or virtual visit). For emergency symptoms, proceed to Emergency Department as usual but inform them of cough and fever symptoms TONIE if present (or call on the way if possible). Allergies As of Date: 08/15/2024 Noted Allergy Reaction LIPITOR (ATORVASTATIN) 11/17/2013 14 - Other: See Comments Comments: body aches Date Reviewed: 05/19/2024 Reviewed by: Carolyne Menon LPN - Fully Assessed Reason for Visit: Transition Of Care [4074] Cmt: [facility] 08/05/24 Prescriptions as of 08/15/2024 - amLODIPine (NORVASC) 5 mg tablet TAKE 1 TABLET BY MOUTH EVERY DAY - pantoprazole DR (PROTONIX) 40 mg tablet TAKE 1 TABLET BY MOUTH TWICE A DAY - loratadine (CLARITIN) 10 mg tablet TAKE 1 TABLET BY MOUTH EVERY DAY - linaGLIPtin (TRADJENTA) 5 mg tab Take 1 tablet by mouth once daily. - icosapent ethyl (VASCEPA) 1 gram capsule Take 2 capsules by mouth two times a day. - ergocalciferol 50,000 unit capsule (VITAMIN D2, DRISDOL) Take 1 capsule by mouth one time a week. - levothyroxine (SYNTHROID) 100 mcg tablet Take 1 tablet by mouth daily before breakfast. - ELIQUIS 5 mg tab(s) Take 1 tablet by mouth two times a day. - finasteride (PROSCAR) 5 mg tablet Take 1 tablet by mouth once daily. - fmymrkdfqen-gmklgwcfu-potvryis (TRELEGY ELLIPTA) 100-62.5-25 mcg inhalation powder Inhale 1 Puff as instructed once daily. - rosuvastatin (CRESTOR) 20 mg tablet Take 1 tablet by mouth daily at bedtime. - aspirin, enteric coated (ASPIRIN, ENTERIC COATED) 81 mg EC tablet Take 1 tablet by mouth once daily. - albuterol HFA (PROVENTIL HFA) 90 mcg/actuation inhaler Inhale 1-2 Puffs as instructed four times a day as needed for wheezing/shortness of breath. - fluticasone (FLONASE) 50 mcg/actuation nasal spray SPRAY 1 SPRAY INTO EACH NOSTRIL AT BEDTIME - FERROUS SULFATE, BULK, MISC - Blood Pressure Test Kit-Large (CLEVER CHOICE BP MONITOR) 1 Each two times a day. - flash glucose sensor (FREESTYLE HEMA 14 DAY SENSOR) kit 1 Each four times daily. - Fenofibrate 160 mg tablet Take 1 tablet by mouth once daily. Problem List As Of Date 08/15/2024 Noted Resolved 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*11/21/2013 02/08/2020 Atherosclerosis of [place] artery of extremity w*11/21/2013 Other hyperlipidemia [E78.49] Unspecified hypothyroidism [E03.9] Smoker [F17.200] 01/27/2015 Chronic ischemic right MCA stroke [Z86.73] 02/08/2020 CAD (coronary artery disease), [place] coronary *12/27/2013 Postprocedural hypotension [I95.81] 12/27/2013 09/25/2020 Stress hyperglycemia [R73.9] 12/27/2013 01/27/2015 Hypoxia [R09.02] 12/27/2013 12/28/2013 Acute blood loss anemia [D62] 12/30/2013 01/27/2015 Acute post-operative pain [G89.18] 01/03/2014 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] 01/03/2020 Embolic stroke involving right carotid artery (*02/08/2020 Symptomatic carotid artery stenosis [I65.29] 02/13/2020 BPH (benign prostatic hyperplasia) [N40.0] CKD (chronic kidney disease) stage 3, GFR 30-59* 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* Hemorrhoids [K64.9] Psoriasis [L40.9] Former smoker [Z87.891] AAA (abdominal aortic aneurysm) without rupture* 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 History of right-sided carotid endarterectomy [*03/13/2020 History of CVA (cerebrovascular accident) [Z86.*09/12/2020 Carotid artery disease (HCC) [I77.9] 09/12/2020 09/24/2020 Rectal cancer (HCC) [C20] 09/23/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HCC) [Z93.3] 09/23/2020 Acute postoperative respiratory insufficiency [*09/23/2020 10/18/2020 Metabolic acidosis [E87.20] 09/23/2020 09/24/2020 Electrolyte abnormality [E87.8] 09/23/2020 Hypoalbuminemia [E88.09] 09/24/2020 09/30/2020 Obesity, Class I, BMI 30-34.9 [E66.811] 09/26/2020 Essential (primary) hypertension [I10] 09/27/2020 Delirium [R41.0] 09/30/2020 10/18/2020 Idiopathic hypotension [I95.0] 09/30/2020 10/18/2020 Abnormal urinalysis [R82.90] 10/02/2020 Moderate protein-calorie malnutrition (HCC) [E4*10/03/2020 Postoperative ileus (HCC) [K91.89, K56.7] 10/04/2020 10/18/2020 On total parenteral nutrition (TPN) [Z78.9] 10/08/2020 10/13/2020 Peripherally inserted central catheter (PICC) i*10/08/2020 10/18/2020 Postoperative urinary retention [N99.89, R33.8] 10/08/2020 Hyponatremia [E87.1] 10/08/2020 10/18/2020 Urinary tract infection associated with indwell*10/13/2020 Encounter Status:Closed by ANTHONY FARMER on 08/15/24 JOSE DAVID Observed: 08/14/2024 12:00 AM Status: COMPLETED Source: [facility] Telephone (AGSAM) EMELIA JOHNSON ([id number]) 1950 M Date Time Provider Department 08/14/24 JENAE SANTAMARIA During your visit today, we recorded the following information about you: Jojo Garrido MA 08/14/2024 2:29 PM Signed Message from nurse asking what size cath maddox does pt need to be ordered states he has a 20in now and he also has 16in at home, needs clarification as to what size he needs to be on so they can order it. Call back number for nurse is [phone] Please advise Jenae Santamaria MD 08/15/2024 5:10 PM Signed I am not sure size of patient's maddox catheter. Patient was previously following with Dr. Kem Hernandez (urology). Are they able to reach out to previous urology office? MD Hema Jensen Amanda, MA 08/16/2024 11:55 AM Signed Spoke to nurse states he came home from nursing facility with a 20in maddox he has in now, will send orders for 20in since he has no 20in at home and nurse is unsure when the last time his maddox was changed. Jenae Santamaria MD 08/16/2024 5:35 PM Signed That is fine. Jenae Santamaria MD Allergies As of Date: 08/14/2024 Noted Allergy Reaction LIPITOR (ATORVASTATIN) 11/17/2013 14 - Other: See Comments Comments: body aches Date Reviewed: 05/19/2024 Reviewed by: Carolyne Menon LPN - Fully Assessed Reason for Visit: Patient Question [1477] Prescriptions as of 08/17/2024 - ergocalciferol 50,000 unit capsule (VITAMIN D2, DRISDOL) TAKE 1 CAPSULE BY MOUTH ONE TIME A WEEK. - amLODIPine (NORVASC) 5 mg tablet TAKE 1 TABLET BY MOUTH EVERY DAY - pantoprazole DR (PROTONIX) 40 mg tablet TAKE 1 TABLET BY MOUTH TWICE A DAY - loratadine (CLARITIN) 10 mg tablet TAKE 1 TABLET BY MOUTH EVERY DAY - linaGLIPtin (TRADJENTA) 5 mg tab Take 1 tablet by mouth once daily. - icosapent ethyl (VASCEPA) 1 gram capsule Take 2 capsules by mouth two times a day. - levothyroxine (SYNTHROID) 100 mcg tablet Take 1 tablet by mouth daily before breakfast. - ELIQUIS 5 mg tab(s) Take 1 tablet by mouth two times a day. - finasteride (PROSCAR) 5 mg tablet Take 1 tablet by mouth once daily. - tktwrftevpb-tqaxcjliy-iyvdohdx (TRELEGY ELLIPTA) 100-62.5-25 mcg inhalation powder Inhale 1 Puff as instructed once daily. - rosuvastatin (CRESTOR) 20 mg tablet Take 1 tablet by mouth daily at bedtime. - aspirin, enteric coated (ASPIRIN, ENTERIC COATED) 81 mg EC tablet Take 1 tablet by mouth once daily. - albuterol HFA (PROVENTIL HFA) 90 mcg/actuation inhaler Inhale 1-2 Puffs as instructed four times a day as needed for wheezing/shortness of breath. - fluticasone (FLONASE) 50 mcg/actuation nasal spray SPRAY 1 SPRAY INTO EACH NOSTRIL AT BEDTIME - FERROUS SULFATE, BULK, MISC - Blood Pressure Test Kit-Large (NextDocs BP MONITOR) 1 Each two times a day. - flash glucose sensor (ChoozleSTYLE HEMA 14 DAY SENSOR) kit 1 Each four times daily. - Fenofibrate 160 mg tablet Take 1 tablet by mouth once daily. Problem List As Of Date 08/14/2024 Noted Resolved 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*11/21/2013 02/08/2020 Atherosclerosis of [place] artery of extremity w*11/21/2013 Other hyperlipidemia [E78.49] Unspecified hypothyroidism [E03.9] Smoker [F17.200] 01/27/2015 Chronic ischemic right MCA stroke [Z86.73] 02/08/2020 CAD (coronary artery disease), [place] coronary *12/27/2013 Postprocedural hypotension [I95.81] 12/27/2013 09/25/2020 Stress hyperglycemia [R73.9] 12/27/2013 01/27/2015 Hypoxia [R09.02] 12/27/2013 12/28/2013 Acute blood loss anemia [D62] 12/30/2013 01/27/2015 Acute post-operative pain [G89.18] 01/03/2014 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] 01/03/2020 Embolic stroke involving right carotid artery (*02/08/2020 Symptomatic carotid artery stenosis [I65.29] 02/13/2020 BPH (benign prostatic hyperplasia) [N40.0] CKD (chronic kidney disease) stage 3, GFR 30-59* 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* Hemorrhoids [K64.9] Psoriasis [L40.9] Former smoker [Z87.891] AAA (abdominal aortic aneurysm) without rupture* 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 History of right-sided carotid endarterectomy [*03/13/2020 History of CVA (cerebrovascular accident) [Z86.*09/12/2020 Carotid artery disease (HCC) [I77.9] 09/12/2020 09/24/2020 Rectal cancer (HCC) [C20] 09/23/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HCC) [Z93.3] 09/23/2020 Acute postoperative respiratory insufficiency [*09/23/2020 10/18/2020 Metabolic acidosis [E87.20] 09/23/2020 09/24/2020 Electrolyte abnormality [E87.8] 09/23/2020 Hypoalbuminemia [E88.09] 09/24/2020 09/30/2020 Obesity, Class I, BMI 30-34.9 [E66.811] 09/26/2020 Essential (primary) hypertension [I10] 09/27/2020 Delirium [R41.0] 09/30/2020 10/18/2020 Idiopathic hypotension [I95.0] 09/30/2020 10/18/2020 Abnormal urinalysis [R82.90] 10/02/2020 Moderate protein-calorie malnutrition (HCC) [E4*10/03/2020 Postoperative ileus (HCC) [K91.89, K56.7] 10/04/2020 10/18/2020 On total parenteral nutrition (TPN) [Z78.9] 10/08/2020 10/13/2020 Peripherally inserted central catheter (PICC) i*10/08/2020 10/18/2020 Postoperative urinary retention [N99.89, R33.8] 10/08/2020 Hyponatremia [E87.1] 10/08/2020 10/18/2020 Urinary tract infection associated with indwell*10/13/2020 Encounter Status:Closed by JOJO GARRIDO on 08/17/24 CNPN Observed: 08/09/2024 12:00 AM Status: COMPLETED Source: [facility] Telephone (BANNER[facility]) EMELIA JOHNSON ([id number]) 1950 M Date Time Provider Department 08/09/24 JENAE SANTAMARIA During your visit today, we recorded the following information about you: Jefferson Bryant 08/09/2024 11:35 AM Signed No Show Documentation Emelia Johnson no showed for an appointment on 08/08/2024 with Jenae Santamaria MD at 10:40 am. He was scheduled for a hospital follow-up. I called and spoke with the patient's son regarding his missed appointment. Emelia's son stated the reason that he missed his appointment was because scheduling error/conflict . They thought the appointment had been scheduled for 08/10/2024. No show determined to be fault of patient: Yes This is the patients first no show in the last 12 months. Patient was rescheduled for 08/22/2024 at 10:40 am. Letter mailed : Yes Is this the Third or Fourth No Show? Corie Jefferson Bryant August 09, 2024 11:33 AM Allergies As of Date: 08/09/2024 Noted Allergy Reaction LIPITOR (ATORVASTATIN) 11/17/2013 14 - Other: See Comments Comments: body aches Date Reviewed: 05/19/2024 Reviewed by: Carolyne Menon LPN - Fully Assessed Reason for Visit: Missed Appointment [1304] Cmt: 08/08/2024 at 10:40 am, hospital follow-up, FIRST NO-SHOW Prescriptions as of 08/09/2024 - pantoprazole DR (PROTONIX) 40 mg tablet TAKE 1 TABLET BY MOUTH TWICE A DAY - loratadine (CLARITIN) 10 mg tablet TAKE 1 TABLET BY MOUTH EVERY DAY - linaGLIPtin (TRADJENTA) 5 mg tab Take 1 tablet by mouth once daily. - icosapent ethyl (VASCEPA) 1 gram capsule Take 2 capsules by mouth two times a day. - ergocalciferol 50,000 unit capsule (VITAMIN D2, DRISDOL) Take 1 capsule by mouth one time a week. - levothyroxine (SYNTHROID) 100 mcg tablet Take 1 tablet by mouth daily before breakfast. - ELIQUIS 5 mg tab(s) Take 1 tablet by mouth two times a day. - finasteride (PROSCAR) 5 mg tablet Take 1 tablet by mouth once daily. - wozuleyzbwl-wspaumfgx-zzhkbcpf (TRELEGY ELLIPTA) 100-62.5-25 mcg inhalation powder Inhale 1 Puff as instructed once daily. - rosuvastatin (CRESTOR) 20 mg tablet Take 1 tablet by mouth daily at bedtime. - amLODIPine (NORVASC) 5 mg tablet Take 1 tablet by mouth once daily. - aspirin, enteric coated (ASPIRIN, ENTERIC COATED) 81 mg EC tablet Take 1 tablet by mouth once daily. - albuterol HFA (PROVENTIL HFA) 90 mcg/actuation inhaler Inhale 1-2 Puffs as instructed four times a day as needed for wheezing/shortness of breath. - fluticasone (FLONASE) 50 mcg/actuation nasal spray SPRAY 1 SPRAY INTO EACH NOSTRIL AT BEDTIME - FERROUS SULFATE, BULK, MISC - Blood Pressure Test Kit-Large (Cloudary CHOICE BP MONITOR) 1 Each two times a day. - flash glucose sensor (FREESTYLE HEMA 14 DAY SENSOR) kit 1 Each four times daily. - Fenofibrate 160 mg tablet Take 1 tablet by mouth once daily. 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/2013 02/08/2020 Atherosclerosis of [place] artery of extremity w*11/21/2013 Other hyperlipidemia [E78.49] Unspecified hypothyroidism [E03.9] Smoker [F17.200] 01/27/2015 Chronic ischemic right MCA stroke [Z86.73] 02/08/2020 CAD (coronary artery disease), [place] coronary *12/27/2013 Postprocedural hypotension [I95.81] 12/27/2013 09/25/2020 Stress hyperglycemia [R73.9] 12/27/2013 01/27/2015 Hypoxia [R09.02] 12/27/2013 12/28/2013 Acute blood loss anemia [D62] 12/30/2013 01/27/2015 Acute post-operative pain [G89.18] 01/03/2014 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] 01/03/2020 Embolic stroke involving right carotid artery (*02/08/2020 Symptomatic carotid artery stenosis [I65.29] 02/13/2020 BPH (benign prostatic hyperplasia) [N40.0] CKD (chronic kidney disease) stage 3, GFR 30-59* 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* Hemorrhoids [K64.9] Psoriasis [L40.9] Former smoker [Z87.891] AAA (abdominal aortic aneurysm) without rupture* 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 History of right-sided carotid endarterectomy [*03/13/2020 History of CVA (cerebrovascular accident) [Z86.*09/12/2020 Carotid artery disease (HCC) [I77.9] 09/12/2020 09/24/2020 Rectal cancer (HCC) [C20] 09/23/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HCC) [Z93.3] 09/23/2020 Acute postoperative respiratory insufficiency [*09/23/2020 10/18/2020 Metabolic acidosis [E87.20] 09/23/2020 09/24/2020 Electrolyte abnormality [E87.8] 09/23/2020 Hypoalbuminemia [E88.09] 09/24/2020 09/30/2020 Obesity, Class I, BMI 30-34.9 [E66.811] 09/26/2020 Essential (primary) hypertension [I10] 09/27/2020 Delirium [R41.0] 09/30/2020 10/18/2020 Idiopathic hypotension [I95.0] 09/30/2020 10/18/2020 Abnormal urinalysis [R82.90] 10/02/2020 Moderate protein-calorie malnutrition (HCC) [E4*10/03/2020 Postoperative ileus (HCC) [K91.89, K56.7] 10/04/2020 10/18/2020 On total parenteral nutrition (TPN) [Z78.9] 10/08/2020 10/13/2020 Peripherally inserted central catheter (PICC) i*10/08/2020 10/18/2020 Postoperative urinary retention [N99.89, R33.8] 10/08/2020 Hyponatremia [E87.1] 10/08/2020 10/18/2020 Urinary tract infection associated with indwell*10/13/2020 Letter Text Encounter Status:Closed by JEFFERSON BRYANT on 08/09/24 PROGRESS Observed: 08/07/2024 6:53 AM Status: COMPLETED Source: [facility] HNO ID: [id number] Author: EMILY FERRO RN Service: ? Author Type: Registered Nurse Type: Progress Notes Filed: 08/07/2024 06:54 Note Text: Received notification via careport: Patient discharged from [facility] on 08/05/2024 to home with [facility]. A discharge summary and medicatoin list has been requested. PCC notified. Emily Ferro RN August 07, 2024 CNPTOUTREACH Observed: 08/07/2024 12:00 AM Status: COMPLETED Source: [facility] EMEL[facility] JOHNSON ([id number]) 1950 Date Time Provider Department 08/07/24 EMILY FERRO [facility] During your visit today, we recorded the following information about you: Emily Ferro RN 08/07/2024 6:54 AM Signed Received notification via careport: Patient discharged from [facility] on 08/05/2024 to home with [facility]. A discharge summary and medicatoin list has been requested. PCC notified. Emily Ferro RN August 07, 2024 Allergies As of Date: 08/07/2024 Noted Allergy Reaction LIPITOR (ATORVASTATIN) 11/17/2013 14 - Other: See Comments Comments: body aches Date Reviewed: 05/19/2024 Reviewed by: Carolyne Menon LPN - Fully Assessed Reason for Visit: Transition Of Care [4074] Cmt: Discharged from [facility] to home with [facility] Prescriptions as of 08/07/2024 - pantoprazole DR (PROTONIX) 40 mg tablet TAKE 1 TABLET BY MOUTH TWICE A DAY - loratadine (CLARITIN) 10 mg tablet TAKE 1 TABLET BY MOUTH EVERY DAY - linaGLIPtin (TRADJENTA) 5 mg tab Take 1 tablet by mouth once daily. - icosapent ethyl (VASCEPA) 1 gram capsule Take 2 capsules by mouth two times a day. - ergocalciferol 50,000 unit capsule (VITAMIN D2, DRISDOL) Take 1 capsule by mouth one time a week. - levothyroxine (SYNTHROID) 100 mcg tablet Take 1 tablet by mouth daily before breakfast. - ELIQUIS 5 mg tab(s) Take 1 tablet by mouth two times a day. - finasteride (PROSCAR) 5 mg tablet Take 1 tablet by mouth once daily. - uwsivszmgab-aoxkeambg-gyibzkxb (TRELEGY ELLIPTA) 100-62.5-25 mcg inhalation powder Inhale 1 Puff as instructed once daily. - rosuvastatin (CRESTOR) 20 mg tablet Take 1 tablet by mouth daily at bedtime. - amLODIPine (NORVASC) 5 mg tablet Take 1 tablet by mouth once daily. - aspirin, enteric coated (ASPIRIN, ENTERIC COATED) 81 mg EC tablet Take 1 tablet by mouth once daily. - albuterol HFA (PROVENTIL HFA) 90 mcg/actuation inhaler Inhale 1-2 Puffs as instructed four times a day as needed for wheezing/shortness of breath. - fluticasone (FLONASE) 50 mcg/actuation nasal spray SPRAY 1 SPRAY INTO EACH NOSTRIL AT BEDTIME - FERROUS SULFATE, BULK, MISC - Blood Pressure Test Kit-Large (CLEVER CHOICE BP MONITOR) 1 Each two times a day. - flash glucose sensor (FREESTYLE HEMA 14 DAY SENSOR) kit 1 Each four times daily. - Fenofibrate 160 mg tablet Take 1 tablet by mouth once daily. 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/21/2013 02/08/2020 Atherosclerosis of [place] artery of extremity w*11/21/2013 Other hyperlipidemia [E78.49] Unspecified hypothyroidism [E03.9] Smoker [F17.200] 01/27/2015 Chronic ischemic right MCA stroke [Z86.73] 02/08/2020 CAD (coronary artery disease), [place] coronary *12/27/2013 Postprocedural hypotension [I95.81] 12/27/2013 09/25/2020 Stress hyperglycemia [R73.9] 12/27/2013 01/27/2015 Hypoxia [R09.02] 12/27/2013 12/28/2013 Acute blood loss anemia [D62] 12/30/2013 01/27/2015 Acute post-operative pain [G89.18] 01/03/2014 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] 01/03/2020 Embolic stroke involving right carotid artery (*02/08/2020 Symptomatic carotid artery stenosis [I65.29] 02/13/2020 BPH (benign prostatic hyperplasia) [N40.0] CKD (chronic kidney disease) stage 3, GFR 30-59* 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* Hemorrhoids [K64.9] Psoriasis [L40.9] Former smoker [Z87.891] AAA (abdominal aortic aneurysm) without rupture* 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 History of right-sided carotid endarterectomy [*03/13/2020 History of CVA (cerebrovascular accident) [Z86.*09/12/2020 Carotid artery disease (HCC) [I77.9] 09/12/2020 09/24/2020 Rectal cancer (HCC) [C20] 09/23/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HCC) [Z93.3] 09/23/2020 Acute postoperative respiratory insufficiency [*09/23/2020 10/18/2020 Metabolic acidosis [E87.20] 09/23/2020 09/24/2020 Electrolyte abnormality [E87.8] 09/23/2020 Hypoalbuminemia [E88.09] 09/24/2020 09/30/2020 Obesity, Class I, BMI 30-34.9 [E66.811] 09/26/2020 Essential (primary) hypertension [I10] 09/27/2020 Delirium [R41.0] 09/30/2020 10/18/2020 Idiopathic hypotension [I95.0] 09/30/2020 10/18/2020 Abnormal urinalysis [R82.90] 10/02/2020 Moderate protein-calorie malnutrition (HCC) [E4*10/03/2020 Postoperative ileus (HCC) [K91.89, K56.7] 10/04/2020 10/18/2020 On total parenteral nutrition (TPN) [Z78.9] 10/08/2020 10/13/2020 Peripherally inserted central catheter (PICC) i*10/08/2020 10/18/2020 Postoperative urinary retention [N99.89, R33.8] 10/08/2020 Hyponatremia [E87.1] 10/08/2020 10/18/2020 Urinary tract infection associated with indwell*10/13/2020 Encounter Status:Closed by EMILY FERRO on 08/07/24 JOSE DAVID Observed: 08/04/2024 12:00 AM Status: COMPLETED Source: [facility] Telephone (AGSAM) EMELIA JOHNSON ([id number]) 1950 M Date Time Provider Department 08/04/24 JENAE SANTAMARIA AGSAM During your visit today, we recorded the following information about you: Janel Fernández MA 08/04/2024 3:12 PM Signed Verbal orders given to [facility] for SN, OT, PT and CONTENT MANAGEMENT SPECIALIST. Janel Fernández MA Allergies As of Date: 08/04/2024 Noted Allergy Reaction LIPITOR (ATORVASTATIN) 11/17/2013 14 - Other: See Comments Comments: body aches Date Reviewed: 05/19/2024 Reviewed by: Carolyne Menon LPN - Fully Assessed Prescriptions as of 08/04/2024 - pantoprazole DR (PROTONIX) 40 mg tablet TAKE 1 TABLET BY MOUTH TWICE A DAY - loratadine (CLARITIN) 10 mg tablet TAKE 1 TABLET BY MOUTH EVERY DAY - linaGLIPtin (TRADJENTA) 5 mg tab Take 1 tablet by mouth once daily. - icosapent ethyl (VASCEPA) 1 gram capsule Take 2 capsules by mouth two times a day. - ergocalciferol 50,000 unit capsule (VITAMIN D2, DRISDOL) Take 1 capsule by mouth one time a week. - levothyroxine (SYNTHROID) 100 mcg tablet Take 1 tablet by mouth daily before breakfast. - ELIQUIS 5 mg tab(s) Take 1 tablet by mouth two times a day. - finasteride (PROSCAR) 5 mg tablet Take 1 tablet by mouth once daily. - osurnrahrvk-pqauwugxu-tkgypftc (TRELEGY ELLIPTA) 100-62.5-25 mcg inhalation powder Inhale 1 Puff as instructed once daily. - rosuvastatin (CRESTOR) 20 mg tablet Take 1 tablet by mouth daily at bedtime. - amLODIPine (NORVASC) 5 mg tablet Take 1 tablet by mouth once daily. - aspirin, enteric coated (ASPIRIN, ENTERIC COATED) 81 mg EC tablet Take 1 tablet by mouth once daily. - albuterol HFA (PROVENTIL HFA) 90 mcg/actuation inhaler Inhale 1-2 Puffs as instructed four times a day as needed for wheezing/shortness of breath. - fluticasone (FLONASE) 50 mcg/actuation nasal spray SPRAY 1 SPRAY INTO EACH NOSTRIL AT BEDTIME - FERROUS SULFATE, BULK, MISC - Blood Pressure Test Kit-Large (CLEVER CHOICE BP MONITOR) 1 Each two times a day. - flash glucose sensor (FREESTYLE HEMA 14 DAY SENSOR) kit 1 Each four times daily. - Fenofibrate 160 mg tablet Take 1 tablet by mouth once daily. 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/21/2013 02/08/2020 Atherosclerosis of [place] artery of extremity w*11/21/2013 Other hyperlipidemia [E78.49] Unspecified hypothyroidism [E03.9] Smoker [F17.200] 01/27/2015 Chronic ischemic right MCA stroke [Z86.73] 02/08/2020 CAD (coronary artery disease), [place] coronary *12/27/2013 Postprocedural hypotension [I95.81] 12/27/2013 09/25/2020 Stress hyperglycemia [R73.9] 12/27/2013 01/27/2015 Hypoxia [R09.02] 12/27/2013 12/28/2013 Acute blood loss anemia [D62] 12/30/2013 01/27/2015 Acute post-operative pain [G89.18] 01/03/2014 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] 01/03/2020 Embolic stroke involving right carotid artery (*02/08/2020 Symptomatic carotid artery stenosis [I65.29] 02/13/2020 BPH (benign prostatic hyperplasia) [N40.0] CKD (chronic kidney disease) stage 3, GFR 30-59* 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* Hemorrhoids [K64.9] Psoriasis [L40.9] Former smoker [Z87.891] AAA (abdominal aortic aneurysm) without rupture* 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 History of right-sided carotid endarterectomy [*03/13/2020 History of CVA (cerebrovascular accident) [Z86.*09/12/2020 Carotid artery disease (HCC) [I77.9] 09/12/2020 09/24/2020 Rectal cancer (HCC) [C20] 09/23/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HCC) [Z93.3] 09/23/2020 Acute postoperative respiratory insufficiency [*09/23/2020 10/18/2020 Metabolic acidosis [E87.20] 09/23/2020 09/24/2020 Electrolyte abnormality [E87.8] 09/23/2020 Hypoalbuminemia [E88.09] 09/24/2020 09/30/2020 Obesity, Class I, BMI 30-34.9 [E66.811] 09/26/2020 Essential (primary) hypertension [I10] 09/27/2020 Delirium [R41.0] 09/30/2020 10/18/2020 Idiopathic hypotension [I95.0] 09/30/2020 10/18/2020 Abnormal urinalysis [R82.90] 10/02/2020 Moderate protein-calorie malnutrition (HCC) [E4*10/03/2020 Postoperative ileus (HCC) [K91.89, K56.7] 10/04/2020 10/18/2020 On total parenteral nutrition (TPN) [Z78.9] 10/08/2020 10/13/2020 Peripherally inserted central catheter (PICC) i*10/08/2020 10/18/2020 Postoperative urinary retention [N99.89, R33.8] 10/08/2020 Hyponatremia [E87.1] 10/08/2020 10/18/2020 Urinary tract infection associated with indwell*10/13/2020 Encounter Status:Closed by JANEL FERNÁNDEZ on 08/04/24 PROGRESS Observed: 07/10/2024 9:11 AM Status: COMPLETED Source: [facility] HNO ID: [id number] Author: MARIA E ROLLINS RN Service: ? Author Type: Registered Nurse Type: Progress Notes Filed: 07/10/2024 10:56 Note Text: TRANSITION CARE MANAGEMENT (TCM) DISCHARGE TO POST ACUTE FACILITY POST ACUTE TRANSFER SUMMARY: -Pt discharged from [facility] on 07/07/2024. -Post Acute Facility Admitted to [facility] -Admitted for: Acidosis Office PCC will follow at discharge Maria E Rollins RN July 10, 2024 9:12 AM CNPTOUTREACH Observed: 07/10/2024 12:00 AM Status: COMPLETED Source: [facility] EMELIA JOHNSON ([id number]) 1950 M Date Time Provider Department 07/10/24 MARIA E ROLLINS [facility] During your visit today, we recorded the following information about you: Maria E Rollins RN 07/10/2024 10:56 AM Signed TRANSITION CARE MANAGEMENT (TCM) DISCHARGE TO POST ACUTE FACILITY POST ACUTE TRANSFER SUMMARY: -Pt discharged from [facility] on 07/07/2024. -Post Acute Facility Admitted to [facility] -Admitted for: Acidosis Office PCC will follow at discharge Maria E Rollins RN July 10, 2024 9:12 AM Allergies As of Date: 07/10/2024 Noted Allergy Reaction LIPITOR (ATORVASTATIN) 11/17/2013 14 - Other: See Comments Comments: body aches Date Reviewed: 05/19/2024 Reviewed by: Carolnye Menon LPN - Fully Assessed Reason for Visit: Transition Of Care [4074] Cmt: [facility] discharged to [facility] Prescriptions as of 07/10/2024 - pantoprazole DR (PROTONIX) 40 mg tablet TAKE 1 TABLET BY MOUTH TWICE A DAY - loratadine (CLARITIN) 10 mg tablet TAKE 1 TABLET BY MOUTH EVERY DAY - linaGLIPtin (TRADJENTA) 5 mg tab Take 1 tablet by mouth once daily. - icosapent ethyl (VASCEPA) 1 gram capsule Take 2 capsules by mouth two times a day. - ergocalciferol 50,000 unit capsule (VITAMIN D2, DRISDOL) Take 1 capsule by mouth one time a week. - levothyroxine (SYNTHROID) 100 mcg tablet Take 1 tablet by mouth daily before breakfast. - ELIQUIS 5 mg tab(s) Take 1 tablet by mouth two times a day. - finasteride (PROSCAR) 5 mg tablet Take 1 tablet by mouth once daily. - ihdvzcacocb-cavvmdtnr-glituorx (TRELEGY ELLIPTA) 100-62.5-25 mcg inhalation powder Inhale 1 Puff as instructed once daily. - rosuvastatin (CRESTOR) 20 mg tablet Take 1 tablet by mouth daily at bedtime. - amLODIPine (NORVASC) 5 mg tablet Take 1 tablet by mouth once daily. - aspirin, enteric coated (ASPIRIN, ENTERIC COATED) 81 mg EC tablet Take 1 tablet by mouth once daily. - albuterol HFA (PROVENTIL HFA) 90 mcg/actuation inhaler Inhale 1-2 Puffs as instructed four times a day as needed for wheezing/shortness of breath. - fluticasone (FLONASE) 50 mcg/actuation nasal spray SPRAY 1 SPRAY INTO EACH NOSTRIL AT BEDTIME - FERROUS SULFATE, BULK, MISC - Blood Pressure Test Kit-Large (CLEVER CHOICE BP MONITOR) 1 Each two times a day. - flash glucose sensor (FREESTYLE HEMA 14 DAY SENSOR) kit 1 Each four times daily. - Fenofibrate 160 mg tablet Take 1 tablet by mouth once daily. 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/2013 02/08/2020 Atherosclerosis of [place] artery of extremity w*11/21/2013 Other hyperlipidemia [E78.49] Unspecified hypothyroidism [E03.9] Smoker [F17.200] 01/27/2015 Chronic ischemic right MCA stroke [Z86.73] 02/08/2020 CAD (coronary artery disease), [place] coronary *12/27/2013 Postprocedural hypotension [I95.81] 12/27/2013 09/25/2020 Stress hyperglycemia [R73.9] 12/27/2013 01/27/2015 Hypoxia [R09.02] 12/27/2013 12/28/2013 Acute blood loss anemia [D62] 12/30/2013 01/27/2015 Acute post-operative pain [G89.18] 01/03/2014 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] 01/03/2020 Embolic stroke involving right carotid artery (*02/08/2020 Symptomatic carotid artery stenosis [I65.29] 02/13/2020 BPH (benign prostatic hyperplasia) [N40.0] CKD (chronic kidney disease) stage 3, GFR 30-59* 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* Hemorrhoids [K64.9] Psoriasis [L40.9] Former smoker [Z87.891] AAA (abdominal aortic aneurysm) without rupture* 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 History of right-sided carotid endarterectomy [*03/13/2020 History of CVA (cerebrovascular accident) [Z86.*09/12/2020 Carotid artery disease (HCC) [I77.9] 09/12/2020 09/24/2020 Rectal cancer (HCC) [C20] 09/23/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HCC) [Z93.3] 09/23/2020 Acute postoperative respiratory insufficiency [*09/23/2020 10/18/2020 Metabolic acidosis [E87.20] 09/23/2020 09/24/2020 Electrolyte abnormality [E87.8] 09/23/2020 Hypoalbuminemia [E88.09] 09/24/2020 09/30/2020 Obesity, Class I, BMI 30-34.9 [E66.811] 09/26/2020 Essential (primary) hypertension [I10] 09/27/2020 Delirium [R41.0] 09/30/2020 10/18/2020 Idiopathic hypotension [I95.0] 09/30/2020 10/18/2020 Abnormal urinalysis [R82.90] 10/02/2020 Moderate protein-calorie malnutrition (HCC) [E4*10/03/2020 Postoperative ileus (HCC) [K91.89, K56.7] 10/04/2020 10/18/2020 On total parenteral nutrition (TPN) [Z78.9] 10/08/2020 10/13/2020 Peripherally inserted central catheter (PICC) i*10/08/2020 10/18/2020 Postoperative urinary retention [N99.89, R33.8] 10/08/2020 Hyponatremia [E87.1] 10/08/2020 10/18/2020 Urinary tract infection associated with indwell*10/13/2020 Encounter Status:Closed by MARIA E ROLLINS on 07/10/24 PROGRESS Observed: 05/19/2024 3:46 PM Status: COMPLETED Source: [facility] HNO ID: [id number] Author: YUDY BENOIT, ? Service: ? Author Type: Physician Type: Progress Notes Filed: 05/20/2024 08:13 Note Text: Last saw pcp: 04/07/24 Subjective: Patient presents to clinic c/o painful toenails. They state that the nails are especially painful with shoe gear and pressure. Patient states that nails b/l are painful. Patient admits to being diabetic. Currently being worked up for left lower extremity blood clot. On eliquis. No other pedal complaints at this time. Patient states no change in medications or medical history since last visit. Objective: Patient presents to clinic ambulating in boots Vasc: DP and PT pulses are nonpalpable bilateral. CFT is less than 5 seconds bilateral. Skin temperature is warm to cool proximal to distal bilateral. There is significant edema of left lower extremity. Neuro: Protective sensation is absent to the foot and toes when tested with the 5.07 SWM bilateral. Vibratory sensation is absent at the hallux IPJ bilateral. The hallux is downgoing bilateral. Derm: Nails 1-5 b/l are painful,. discolored-yellow, thick, crumbly, dystrophic and with subungal debris. Skin is of normal turgor, texture and hair growth is absent bilateral. There are no hyperkeratosis, ulcerations, scars, verruca or other lesions noted. Ortho: Muscle strength is 5/5 for all pedal groups tested. Ankle joint DF is decreased with the knee extended with no pain or crepitus noted. 1st MPJ ROM is decreased bilateral. Assessment: (B35.1) Onychomycosis (primary encounter diagnosis) (M79.675) Pain in toe of left foot (M79.674) Pain in toe of right foot (E11.42) Diabetic polyneuropathy associated with type 2 diabetes mellitus (HCC) (I73.9) PAD (peripheral artery disease) ([facility]) Plan: Patient was seen and evaluated. Nails 1-5 bilateral were debrided in length and thickness. Patient was instructed on the continued importance of diabetic foot care along with proper diet and keeping their blood sugar under control to prevent complications. Stressed the importance of avoiding barefoot walking, wearing good shoes and inspection of feet. Patient is to RTC in 3-4 months. Yudy Benoit DPM PROGRESS Observed: 05/19/2024 3:46 PM Status: COMPLETED Source: [facility] HNO ID: [id number] Author: CAROLYNE MENON LPN Service: ? Author Type: LICENSED NURSE Type: Progress Notes Filed: 05/20/2024 08:13 Note Text: AMB ROOMING INTAKE FLOWSHEET DATA Patient presents with: Left Foot - Established Patient, Diabetic Foot Care Right Foot - Established Patient, Diabetic Foot Care Carolyne Menon LPN PROGRESS Observed: 05/19/2024 3:43 PM Status: COMPLETED Source: [facility] HNO ID: [id number] Author: YUDY BENOIT, Jone Service: ? Author Type: Physician Type: Progress Notes Filed: 05/20/2024 08:13 Note Text: See above CNOV Observed: 05/19/2024 3:40 PM Status: COMPLETED Source: [facility] Office Visit (PODIWS) EMELIA JOHNSON ([id number]) 1950 M Date Time Provider Department 05/19/24 3:40 PM YUDY BENOIT PODIWS During your visit today, we recorded the following information about you: Yudy Benoit 05/20/2024 8:13 AM Signed See above Yudy Benoit 05/19/2024 3:43 PM Signed Diabetes Foot Care Instructions When you have diabetes, proper foot care is very important. Poor foot care may lead to amputation of a foot or leg. As a person with diabetes, you are more vulnerable to foot problems, because diabetes can damage your nerves and reduce blood flow to your feet. Here are some diabetes foot care tips to follow: Wash and Dry Your Feet Daily Use mild soaps Use warm water Pat your skin dry; do not rub. Thoroughly dry your feet. After washing, use lotion on your feet to prevent cracking. Do not put lotion between your toes. Examine Your Feet Each Day Check the tops and bottoms of your feet. Have someone else look at your feet if you cannot see them. Check for dry, cracked skin. Look for blisters, cuts, scratches, or other sores. Check for redness, increased warmth, or tenderness when touching any area of your feet. Check for ingrown toenails, corns, and calluses. If you get a blister or sore from your shoes, do not pop it. Apply a bandage and wear a different pair of shoes. Take Care of Your Toenails Cut toenails after bathing, when they are soft. Cut toenails straight across and smooth with a nail file. Avoid cutting into the corners of toes. Do not cut cuticles. If you have neuropathy (or decreased sensation in your feet) a power generation engineer should always cut your toenails. Be Careful When Exercising Walk and exercise in comfortable shoes. Do not exercise when you have open sores on your feet. Protect Your Feet With Shoes and Socks Never go barefoot. Always protect your feet by wearing shoes or hard-soled slippers or footwear. Avoid shoes with high heels and pointed toes. Avoid shoes that expose your toes or heels (such as open-toed shoes or sandals). These types of shoes increase your risk for injury and potential infections. Try on new footwear with the type of socks you usually wear. Do not wear new shoes for more than an hour at a time. Change your socks daily. Look and feel inside your shoes before putting them on to make sure there are no foreign objects or rough areas. Avoid tight socks. Wear natural-fiber socks (cotton, wool, or a cotton-wool blend). Wear special shoes if your health care provider recommends them. Wear shoes/boots that will protect your feet from various weather conditions (cold, moisture, etc.). Make sure your shoes fit properly. If you have neuropathy (nerve damage), you may not notice that your shoes are too tight. Perform the footwear test described below. Footwear Test Use this simple test to see if your shoes fit correctly: Stand on a piece of paper. (Make sure you are standing and not sitting, because your foot changes shape when you stand.) Trace the outline of your foot. Trace the outline of your shoe. Compare the tracings: Is the shoe too narrow? Is your foot crammed into the shoe? The shoe should be at least 1/2 inch longer than your longest toe and as wide as your foot. Proper Shoe Choices The following types of shoes are best for people with diabetes Closed toes and heels Leather uppers without a seam inside At least 1/2 inch extra space at the end of your longest toe Inside of shoe should be soft with no rough areas Outer sole should be made of stiff material Shoes should be at least as wide as your feet Tips for Foot Care in Diabetes Don't wait to treat a minor foot problem if you have diabetes. Follow your health care provider's guidelines and first aid guidelines. Report foot injuries and infections to your health care provider immediately. Check water temperature with your elbow, not your foot. Do not use a heating pad on your feet. Do not cross your legs. Do not self-treat your corns, calluses, or other foot problems. Go to your health care provider or power generation engineer to treat these conditions. Carolyne Menon LPN 05/20/2024 8:13 AM Signed AMB ROOMING INTAKE FLOWSHEET DATA Patient presents with: Left Foot - Established Patient, Diabetic Foot Care Right Foot - Established Patient, Diabetic Foot Care Carolyne Menon LPN Yudy Benoit 05/20/2024 8:13 AM Signed Last saw pcp: 04/07/24 Subjective: Patient presents to clinic c/o painful toenails. They state that the nails are especially painful with shoe gear and pressure. Patient states that nails b/l are painful. Patient admits to being diabetic. Currently being worked up for left lower extremity blood clot. On eliquis. No other pedal complaints at this time. Patient states no change in medications or medical history since last visit. Objective: Patient presents to clinic ambulating in boots Vasc: DP and PT pulses are nonpalpable bilateral. CFT is less than 5 seconds bilateral. Skin temperature is warm to cool proximal to distal bilateral. There is significant edema of left lower extremity. Neuro: Protective sensation is absent to the foot and toes when tested with the 5.07 SWM bilateral. Vibratory sensation is absent at the hallux IPJ bilateral. The hallux is downgoing bilateral. Derm: Nails 1-5 b/l are painful,. discolored-yellow, thick, crumbly, dystrophic and with subungal debris. Skin is of normal turgor, texture and hair growth is absent bilateral. There are no hyperkeratosis, ulcerations, scars, verruca or other lesions noted. Ortho: Muscle strength is 5/5 for all pedal groups tested. Ankle joint DF is decreased with the knee extended with no pain or crepitus noted. 1st MPJ ROM is decreased bilateral. Assessment: (B35.1) Onychomycosis (primary encounter diagnosis) (M79.675) Pain in toe of left foot (M79.674) Pain in toe of right foot (E11.42) Diabetic polyneuropathy associated with type 2 diabetes mellitus (HCC) (I73.9) PAD (peripheral artery disease) ([facility]) Plan: Patient was seen and evaluated. Nails 1-5 bilateral were debrided in length and thickness. Patient was instructed on the continued importance of diabetic foot care along with proper diet and keeping their blood sugar under control to prevent complications. Stressed the importance of avoiding barefoot walking, wearing good shoes and inspection of feet. Patient is to RTC in 3-4 months. Yudy Benoit DPM Referring Provider: YUDY BENOIT [[id number]] Allergies As of Date: 05/19/2024 Noted Allergy Reaction LIPITOR (ATORVASTATIN) 11/17/2013 14 - Other: See Comments Comments: body aches Date Reviewed: 05/19/2024 Reviewed by: Carolyne Menon LPN - Fully Assessed Reason for Visit: Established Patient [175] Diabetic Foot Care [916] Established Patient [175] Diabetic Foot Care [916] Primary Visit Diagnosis:Onychomycosis [B35.1] Other Visit Diagnoses:Pain in toe of left foot [M79.675] Pain in toe of right foot [M79.674] Diabetic polyneuropathy associated with type 2 diabetes mellitus ([facility]) [E11.42] Acquired hallux valgus of right foot [M20.11] PAD (peripheral artery disease) ([facility]) [I73.9] Prescriptions as of 05/20/2024 - loratadine (CLARITIN) 10 mg tablet TAKE 1 TABLET BY MOUTH EVERY DAY - linaGLIPtin (TRADJENTA) 5 mg tab Take 1 tablet by mouth once daily. - icosapent ethyl (VASCEPA) 1 gram capsule Take 2 capsules by mouth two times a day. - ergocalciferol 50,000 unit capsule (VITAMIN D2, DRISDOL) Take 1 capsule by mouth one time a week. - levothyroxine (SYNTHROID) 100 mcg tablet Take 1 tablet by mouth daily before breakfast. - pantoprazole DR (PROTONIX) 40 mg tablet Take 1 tablet by mouth two times a day. - ELIQUIS 5 mg tab(s) Take 1 tablet by mouth two times a day. - finasteride (PROSCAR) 5 mg tablet Take 1 tablet by mouth once daily. - dddtbybfbtz-nobxzipfg-lgtfnozs (TRELEGY ELLIPTA) 100-62.5-25 mcg inhalation powder Inhale 1 Puff as instructed once daily. - rosuvastatin (CRESTOR) 20 mg tablet Take 1 tablet by mouth daily at bedtime. - amLODIPine (NORVASC) 5 mg tablet Take 1 tablet by mouth once daily. - aspirin, enteric coated (ASPIRIN, ENTERIC COATED) 81 mg EC tablet Take 1 tablet by mouth once daily. - albuterol HFA (PROVENTIL HFA) 90 mcg/actuation inhaler Inhale 1-2 Puffs as instructed four times a day as needed for wheezing/shortness of breath. - fluticasone (FLONASE) 50 mcg/actuation nasal spray SPRAY 1 SPRAY INTO EACH NOSTRIL AT BEDTIME - FERROUS SULFATE, BULK, MISC - Blood Pressure Test Kit-Large ([place] CHOICE BP MONITOR) 1 Each two times a day. - flash glucose sensor (ChoozleSTYLE HEMA 14 DAY SENSOR) kit 1 Each four times daily. - Fenofibrate 160 mg tablet Take 1 tablet by mouth once daily. 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 02/08/2020 Atherosclerosis of [place] artery of extremity w*11/21/2013 Other hyperlipidemia [E78.49] Unspecified hypothyroidism [E03.9] Smoker [F17.200] 01/27/2015 Chronic ischemic right MCA stroke [Z86.73] 02/08/2020 CAD (coronary artery disease), [place] coronary *12/27/2013 Postprocedural hypotension [I95.81] 12/27/2013 09/25/2020 Stress hyperglycemia [R73.9] 12/27/2013 01/27/2015 Hypoxia [R09.02] 12/27/2013 12/28/2013 Acute blood loss anemia [D62] 12/30/2013 01/27/2015 Acute post-operative pain [G89.18] 01/03/2014 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] 01/03/2020 Embolic stroke involving right carotid artery (*02/08/2020 Symptomatic carotid artery stenosis [I65.29] 02/13/2020 BPH (benign prostatic hyperplasia) [N40.0] CKD (chronic kidney disease) stage 3, GFR 30-59* 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* Hemorrhoids [K64.9] Psoriasis [L40.9] Former smoker [Z87.891] AAA (abdominal aortic aneurysm) without rupture* 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 History of right-sided carotid endarterectomy [*03/13/2020 History of CVA (cerebrovascular accident) [Z86.*09/12/2020 Carotid artery disease (HCC) [I77.9] 09/12/2020 09/24/2020 Rectal cancer (HCC) [C20] 09/23/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HCC) [Z93.3] 09/23/2020 Acute postoperative respiratory insufficiency [*09/23/2020 10/18/2020 Metabolic acidosis [E87.20] 09/23/2020 09/24/2020 Electrolyte abnormality [E87.8] 09/23/2020 Hypoalbuminemia [E88.09] 09/24/2020 09/30/2020 Obesity, Class I, BMI 30-34.9 [E66.811] 09/26/2020 Essential (primary) hypertension [I10] 09/27/2020 Delirium [R41.0] 09/30/2020 10/18/2020 Idiopathic hypotension [I95.0] 09/30/2020 10/18/2020 Abnormal urinalysis [R82.90] 10/02/2020 Moderate protein-calorie malnutrition (HCC) [E4*10/03/2020 Postoperative ileus (HCC) [K91.89, K56.7] 10/04/2020 10/18/2020 On total parenteral nutrition (TPN) [Z78.9] 10/08/2020 10/13/2020 Peripherally inserted central catheter (PICC) i*10/08/2020 10/18/2020 Postoperative urinary retention [N99.89, R33.8] 10/08/2020 Hyponatremia [E87.1] 10/08/2020 10/18/2020 Urinary tract infection associated with indwell*10/13/2020 Other instructions from your clinician: Diabetes Foot Care Instructions When you have diabetes, proper foot care is very important. Poor foot care may lead to amputation of a foot or leg. As a person with diabetes, you are more vulnerable to foot problems, because diabetes can damage your nerves and reduce blood flow to your feet. Here are some diabetes foot care tips to follow: Wash and Dry Your Feet Daily Use mild soaps Use warm water Pat your skin dry; do not rub. Thoroughly dry your feet. After washing, use lotion on your feet to prevent cracking. Do not put lotion between your toes. Examine Your Feet Each Day Check the tops and bottoms of your feet. Have someone else look at your feet if you cannot see them. Check for dry, cracked skin. Look for blisters, cuts, scratches, or other sores. Check for redness, increased warmth, or tenderness when touching any area of your feet. Check for ingrown toenails, corns, and calluses. If you get a blister or sore from your shoes, do not pop it. Apply a bandage and wear a different pair of shoes. Take Care of Your Toenails Cut toenails after bathing, when they are soft. Cut toenails straight across and smooth with a nail file. Avoid cutting into the corners of toes. Do not cut cuticles. If you have neuropathy (or decreased sensation in your feet) a power generation engineer should always cut your toenails. Be Careful When Exercising Walk and exercise in comfortable shoes. Do not exercise when you have open sores on your feet. Protect Your Feet With Shoes and Socks Never go barefoot. Always protect your feet by wearing shoes or hard-soled slippers or footwear. Avoid shoes with high heels and pointed toes. Avoid shoes that expose your toes or heels (such as open-toed shoes or sandals). These types of shoes increase your risk for injury and potential infections. Try on new footwear with the type of socks you usually wear. Do not wear new shoes for more than an hour at a time. Change your socks daily. Look and feel inside your shoes before putting them on to make sure there are no foreign objects or rough areas. Avoid tight socks. Wear natural-fiber socks (cotton, wool, or a cotton-wool blend). Wear special shoes if your health care provider recommends them. Wear shoes/boots that will protect your feet from various weather conditions (cold, moisture, etc.). Make sure your shoes fit properly. If you have neuropathy (nerve damage), you may not notice that your shoes are too tight. Perform the footwear test described below. Footwear Test Use this simple test to see if your shoes fit correctly: Stand on a piece of paper. (Make sure you are standing and not sitting, because your foot changes shape when you stand.) Trace the outline of your foot. Trace the outline of your shoe. Compare the tracings: Is the shoe too narrow? Is your foot crammed into the shoe? The shoe should be at least 1/2 inch longer than your longest toe and as wide as your foot. Proper Shoe Choices The following types of shoes are best for people with diabetes Closed toes and heels Leather uppers without a seam inside At least 1/2 inch extra space at the end of your longest toe Inside of shoe should be soft with no rough areas Outer sole should be made of stiff material Shoes should be at least as wide as your feet Tips for Foot Care in Diabetes Don't wait to treat a minor foot problem if you have diabetes. Follow your health care provider's guidelines and first aid guidelines. Report foot injuries and infections to your health care provider immediately. Check water temperature with your elbow, not your foot. Do not use a heating pad on your feet. Do not cross your legs. Do not self-treat your corns, calluses, or other foot problems. Go to your health care provider or power generation engineer to treat these conditions. Disposition: Return in about 3 months (around 08/16/2024). Follow-up and Disposition History for Encounter Date Provider Department Center 05/19/2024 [id number] BENOIT Encounter Status:Closed by YUDY BENOIT DPM on 05/20/24 JOSE DAVID Observed: 04/25/2024 12:00 AM Status: COMPLETED Source: [facility] Telephone (AGSAM) EMELIA JOHNSON ([id number]) 1950 M Date Time Provider Department 04/25/24 JENAE SANTAMARIA During your visit today, we recorded the following information about you: Jojo Garrido MA 04/25/2024 3:15 PM Signed Call from Marcy [phone], nurse from [facility], called to report pt has not been compliant with catheter changes, states nursing comes into patients home ever 4-6 weeks for catheter change, which Marcy found out has not been getting done by the patients family in the meantime. Family states they have been doing this for 5 years. Marcy noticed he is having significant tearing pt's family states pt does not like cath secures and does not have any cath secures and wont do it. Marcy did secure cath with tape, instructed by family pt will just take tape off, Marcy advised them to schedule with urology and family states that will not happen. Marcy called in to let us know pt's family and patient himself has been non compliant with catheter changes, also noted he is on antibiotic for UTI Jenae Santamaria MD 04/26/2024 10:45 AM Signed Please call patient to re enforce that patient needs to use cath secure as well as be consistent with catheter changes. Please update that we were informed by Marcy that patient has not been as consistent as he should with catheter changes and following with urology. This is important for preventing infection and getting sick down the road from infection. Also, recurrent use of antibiotics without trying to mitigate infection risk will make patient more resistant in the future to antibiotics and it will be harder to treat infections. MD Hema Jensen Amanda, MA 04/26/2024 4:16 PM Signed Tried to call pt, someone answers then hangs up the phone, tried to call twice. Allergies As of Date: 04/25/2024 Noted Allergy Reaction LIPITOR (ATORVASTATIN) 11/17/2013 14 - Other: See Comments Comments: body aches Date Reviewed: 04/07/2024 Reviewed by: Jenae Santamaria MD - Fully Assessed Reason for Visit: Patient Update [1234] Prescriptions as of 04/26/2024 - nitrofurantoin monohydrate and macrocrystal (MACROBID) 100 mg capsule Take 1 capsule by mouth two times a day for 7 days. - linaGLIPtin (TRADJENTA) 5 mg tab Take 1 tablet by mouth once daily. - icosapent ethyl (VASCEPA) 1 gram capsule Take 2 capsules by mouth two times a day. - ergocalciferol 50,000 unit capsule (VITAMIN D2, DRISDOL) Take 1 capsule by mouth one time a week. - levothyroxine (SYNTHROID) 100 mcg tablet Take 1 tablet by mouth daily before breakfast. - pantoprazole DR (PROTONIX) 40 mg tablet Take 1 tablet by mouth two times a day. - ELIQUIS 5 mg tab(s) Take 1 tablet by mouth two times a day. - finasteride (PROSCAR) 5 mg tablet Take 1 tablet by mouth once daily. - xevajiaryfl-ngjncoeed-kvqluoku (TRELEGY ELLIPTA) 100-62.5-25 mcg inhalation powder Inhale 1 Puff as instructed once daily. - rosuvastatin (CRESTOR) 20 mg tablet Take 1 tablet by mouth daily at bedtime. - amLODIPine (NORVASC) 5 mg tablet Take 1 tablet by mouth once daily. - aspirin, enteric coated (ASPIRIN, ENTERIC COATED) 81 mg EC tablet Take 1 tablet by mouth once daily. - albuterol HFA (PROVENTIL HFA) 90 mcg/actuation inhaler Inhale 1-2 Puffs as instructed four times a day as needed for wheezing/shortness of breath. - fluticasone (FLONASE) 50 mcg/actuation nasal spray SPRAY 1 SPRAY INTO EACH NOSTRIL AT BEDTIME - loratadine (CLARITIN) 10 mg tablet Take 1 tablet by mouth once daily. - FERROUS SULFATE, BULK, MISC - Blood Pressure Test Kit-Large (CLEVER CHOICE BP MONITOR) 1 Each two times a day. - flash glucose sensor (FREESTYLE HEMA 14 DAY SENSOR) kit 1 Each four times daily. - Fenofibrate 160 mg tablet Take 1 tablet by mouth once daily. 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 02/08/2020 Atherosclerosis of [place] artery of extremity w*11/21/2013 Other hyperlipidemia [E78.49] Unspecified hypothyroidism [E03.9] Smoker [F17.200] 01/27/2015 Chronic ischemic right MCA stroke [Z86.73] 02/08/2020 CAD (coronary artery disease), [place] coronary *12/27/2013 Postprocedural hypotension [I95.81] 12/27/2013 09/25/2020 Stress hyperglycemia [R73.9] 12/27/2013 01/27/2015 Hypoxia [R09.02] 12/27/2013 12/28/2013 Acute blood loss anemia [D62] 12/30/2013 01/27/2015 Acute post-operative pain [G89.18] 01/03/2014 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] 01/03/2020 Embolic stroke involving right carotid artery (*02/08/2020 Symptomatic carotid artery stenosis [I65.29] 02/13/2020 BPH (benign prostatic hyperplasia) [N40.0] CKD (chronic kidney disease) stage 3, GFR 30-59* 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* Hemorrhoids [K64.9] Psoriasis [L40.9] Former smoker [Z87.891] AAA (abdominal aortic aneurysm) without rupture* 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 History of right-sided carotid endarterectomy [*03/13/2020 History of CVA (cerebrovascular accident) [Z86.*09/12/2020 Carotid artery disease (HCC) [I77.9] 09/12/2020 09/24/2020 Rectal cancer (HCC) [C20] 09/23/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HCC) [Z93.3] 09/23/2020 Acute postoperative respiratory insufficiency [*09/23/2020 10/18/2020 Metabolic acidosis [E87.20] 09/23/2020 09/24/2020 Electrolyte abnormality [E87.8] 09/23/2020 Hypoalbuminemia [E88.09] 09/24/2020 09/30/2020 Obesity, Class I, BMI 30-34.9 [E66.811] 09/26/2020 Essential (primary) hypertension [I10] 09/27/2020 Delirium [R41.0] 09/30/2020 10/18/2020 Idiopathic hypotension [I95.0] 09/30/2020 10/18/2020 Abnormal urinalysis [R82.90] 10/02/2020 Moderate protein-calorie malnutrition (HCC) [E4*10/03/2020 Postoperative ileus (HCC) [K91.89, K56.7] 10/04/2020 10/18/2020 On total parenteral nutrition (TPN) [Z78.9] 10/08/2020 10/13/2020 Peripherally inserted central catheter (PICC) i*10/08/2020 10/18/2020 Postoperative urinary retention [N99.89, R33.8] 10/08/2020 Hyponatremia [E87.1] 10/08/2020 10/18/2020 Urinary tract infection associated with indwell*10/13/2020 Encounter Status:Closed by JENAE SANTAMARIA on 04/26/24 CNPN Observed: 04/19/2024 12:00 AM Status: COMPLETED Source: [facility] Telephone (Tiempo Listo) EMELIA JOHNSON ([id number]) 1950 M Date Time Provider Department 04/19/24 NURSE DIABETES [facility] During your visit today, we recorded the following information about you: Ellen Aldana RN 04/19/2024 2:39 PM Signed Diabetes education referral received. Spoke with daughter of patient. Prefers [place] location on a Wednesday. Offered Wednesday05/10/24 RN appt, preference for Wednesday. Patient scheduled for 05/26/24 at [address] Allergies As of Date: 04/19/2024 Noted Allergy Reaction LIPITOR (ATORVASTATIN) 11/17/2013 14 - Other: See Comments Comments: body aches Date Reviewed: 04/07/2024 Reviewed by: Jenae Santamaria MD - Fully Assessed Prescriptions as of 04/19/2024 - nitrofurantoin monohydrate and macrocrystal (MACROBID) 100 mg capsule Take 1 capsule by mouth two times a day for 7 days. - linaGLIPtin (TRADJENTA) 5 mg tab Take 1 tablet by mouth once daily. - icosapent ethyl (VASCEPA) 1 gram capsule Take 2 capsules by mouth two times a day. - ergocalciferol 50,000 unit capsule (VITAMIN D2, DRISDOL) Take 1 capsule by mouth one time a week. - levothyroxine (SYNTHROID) 100 mcg tablet Take 1 tablet by mouth daily before breakfast. - pantoprazole DR (PROTONIX) 40 mg tablet Take 1 tablet by mouth two times a day. - ELIQUIS 5 mg tab(s) Take 1 tablet by mouth two times a day. - finasteride (PROSCAR) 5 mg tablet Take 1 tablet by mouth once daily. - lomfcvsffci-goimynhxj-xvmzfzmw (TRELEGY ELLIPTA) 100-62.5-25 mcg inhalation powder Inhale 1 Puff as instructed once daily. - rosuvastatin (CRESTOR) 20 mg tablet Take 1 tablet by mouth daily at bedtime. - amLODIPine (NORVASC) 5 mg tablet Take 1 tablet by mouth once daily. - aspirin, enteric coated (ASPIRIN, ENTERIC COATED) 81 mg EC tablet Take 1 tablet by mouth once daily. - albuterol HFA (PROVENTIL HFA) 90 mcg/actuation inhaler Inhale 1-2 Puffs as instructed four times a day as needed for wheezing/shortness of breath. - fluticasone (FLONASE) 50 mcg/actuation nasal spray SPRAY 1 SPRAY INTO EACH NOSTRIL AT BEDTIME - loratadine (CLARITIN) 10 mg tablet Take 1 tablet by mouth once daily. - FERROUS SULFATE, BULK, MISC - Blood Pressure Test Kit-Large (CLEVER CHOICE BP MONITOR) 1 Each two times a day. - flash glucose sensor (FREESTYLE HEMA 14 DAY SENSOR) kit 1 Each four times daily. - Fenofibrate 160 mg tablet Take 1 tablet by mouth once daily. 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 02/08/2020 Atherosclerosis of [place] artery of extremity w*11/21/2013 Other hyperlipidemia [E78.49] Unspecified hypothyroidism [E03.9] Smoker [F17.200] 01/27/2015 Chronic ischemic right MCA stroke [Z86.73] 02/08/2020 CAD (coronary artery disease), [place] coronary *12/27/2013 Postprocedural hypotension [I95.81] 12/27/2013 09/25/2020 Stress hyperglycemia [R73.9] 12/27/2013 01/27/2015 Hypoxia [R09.02] 12/27/2013 12/28/2013 Acute blood loss anemia [D62] 12/30/2013 01/27/2015 Acute post-operative pain [G89.18] 01/03/2014 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] 01/03/2020 Embolic stroke involving right carotid artery (*02/08/2020 Symptomatic carotid artery stenosis [I65.29] 02/13/2020 BPH (benign prostatic hyperplasia) [N40.0] CKD (chronic kidney disease) stage 3, GFR 30-59* 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* Hemorrhoids [K64.9] Psoriasis [L40.9] Former smoker [Z87.891] AAA (abdominal aortic aneurysm) without rupture* 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 History of right-sided carotid endarterectomy [*03/13/2020 History of CVA (cerebrovascular accident) [Z86.*09/12/2020 Carotid artery disease (HCC) [I77.9] 09/12/2020 09/24/2020 Rectal cancer (HCC) [C20] 09/23/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HCC) [Z93.3] 09/23/2020 Acute postoperative respiratory insufficiency [*09/23/2020 10/18/2020 Metabolic acidosis [E87.20] 09/23/2020 09/24/2020 Electrolyte abnormality [E87.8] 09/23/2020 Hypoalbuminemia [E88.09] 09/24/2020 09/30/2020 Obesity, Class I, BMI 30-34.9 [E66.811] 09/26/2020 Essential (primary) hypertension [I10] 09/27/2020 Delirium [R41.0] 09/30/2020 10/18/2020 Idiopathic hypotension [I95.0] 09/30/2020 10/18/2020 Abnormal urinalysis [R82.90] 10/02/2020 Moderate protein-calorie malnutrition (HCC) [E4*10/03/2020 Postoperative ileus (HCC) [K91.89, K56.7] 10/04/2020 10/18/2020 On total parenteral nutrition (TPN) [Z78.9] 10/08/2020 10/13/2020 Peripherally inserted central catheter (PICC) i*10/08/2020 10/18/2020 Postoperative urinary retention [N99.89, R33.8] 10/08/2020 Hyponatremia [E87.1] 10/08/2020 10/18/2020 Urinary tract infection associated with indwell*10/13/2020 Encounter Status:Closed by ELLEN ALDANA on 04/19/24 JOSE DAVID Observed: 04/19/2024 12:00 AM Status: COMPLETED Source: [facility] Telephone (AGSAM) EMELIA JOHNSON ([id number]) 1950 Date Time Provider Department 04/19/24 JENAE SANTAMARIA BANNERSANDRA During your visit today, we recorded the following information about you: Jenae Santamaria MD 04/19/2024 8:04 AM Signed Please call to update that urine culture positive and will send antibiotics based on culture and sensitivity results. MD Hema Jensen Amanda, MA 04/19/2024 9:20 AM Signed Left for shellie on preferred number listed in chart Allergies As of Date: 04/19/2024 Noted Allergy Reaction LIPITOR (ATORVASTATIN) 11/17/2013 14 - Other: See Comments Comments: body aches Date Reviewed: 04/07/2024 Reviewed by: Jenae Santamaria MD - Fully Assessed Reason for Visit: Results [95] Primary Visit Diagnosis:Urinary tract infection associated with indwelling urethral catheter, subsequent encounter [T83.511D, N39.0] Order(s):nitrofurantoin monohydrate and macrocrystal (MACROBID) 100 mg capsuleTake 1 capsule by mouth two times a day for 7 days.Disp: 14 capsuleRfl: 0 Prescriptions as of 04/19/2024 - nitrofurantoin monohydrate and macrocrystal (MACROBID) 100 mg capsule Take 1 capsule by mouth two times a day for 7 days. - linaGLIPtin (TRADJENTA) 5 mg tab Take 1 tablet by mouth once daily. - icosapent ethyl (VASCEPA) 1 gram capsule Take 2 capsules by mouth two times a day. - ergocalciferol 50,000 unit capsule (VITAMIN D2, DRISDOL) Take 1 capsule by mouth one time a week. - levothyroxine (SYNTHROID) 100 mcg tablet Take 1 tablet by mouth daily before breakfast. - pantoprazole DR (PROTONIX) 40 mg tablet Take 1 tablet by mouth two times a day. - ELIQUIS 5 mg tab(s) Take 1 tablet by mouth two times a day. - finasteride (PROSCAR) 5 mg tablet Take 1 tablet by mouth once daily. - kzcnasmjmis-lvrjxpdpj-bsgjxalw (TRELEGY ELLIPTA) 100-62.5-25 mcg inhalation powder Inhale 1 Puff as instructed once daily. - rosuvastatin (CRESTOR) 20 mg tablet Take 1 tablet by mouth daily at bedtime. - amLODIPine (NORVASC) 5 mg tablet Take 1 tablet by mouth once daily. - aspirin, enteric coated (ASPIRIN, ENTERIC COATED) 81 mg EC tablet Take 1 tablet by mouth once daily. - albuterol HFA (PROVENTIL HFA) 90 mcg/actuation inhaler Inhale 1-2 Puffs as instructed four times a day as needed for wheezing/shortness of breath. - fluticasone (FLONASE) 50 mcg/actuation nasal spray SPRAY 1 SPRAY INTO EACH NOSTRIL AT BEDTIME - loratadine (CLARITIN) 10 mg tablet Take 1 tablet by mouth once daily. - FERROUS SULFATE, BULK, MISC - Blood Pressure Test Kit-Large (CLEVER CHOICE BP MONITOR) 1 Each two times a day. - flash glucose sensor (FREESTYLE HEMA 14 DAY SENSOR) kit 1 Each four times daily. - Fenofibrate 160 mg tablet Take 1 tablet by mouth once daily. 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 02/08/2020 Atherosclerosis of [place] artery of extremity w*11/21/2013 Other hyperlipidemia [E78.49] Unspecified hypothyroidism [E03.9] Smoker [F17.200] 01/27/2015 Chronic ischemic right MCA stroke [Z86.73] 02/08/2020 CAD (coronary artery disease), [place] coronary *12/27/2013 Postprocedural hypotension [I95.81] 12/27/2013 09/25/2020 Stress hyperglycemia [R73.9] 12/27/2013 01/27/2015 Hypoxia [R09.02] 12/27/2013 12/28/2013 Acute blood loss anemia [D62] 12/30/2013 01/27/2015 Acute post-operative pain [G89.18] 01/03/2014 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] 01/03/2020 Embolic stroke involving right carotid artery (*02/08/2020 Symptomatic carotid artery stenosis [I65.29] 02/13/2020 BPH (benign prostatic hyperplasia) [N40.0] CKD (chronic kidney disease) stage 3, GFR 30-59* 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* Hemorrhoids [K64.9] Psoriasis [L40.9] Former smoker [Z87.891] AAA (abdominal aortic aneurysm) without rupture* 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 History of right-sided carotid endarterectomy [*03/13/2020 History of CVA (cerebrovascular accident) [Z86.*09/12/2020 Carotid artery disease (HCC) [I77.9] 09/12/2020 09/24/2020 Rectal cancer (HCC) [C20] 09/23/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HCC) [Z93.3] 09/23/2020 Acute postoperative respiratory insufficiency [*09/23/2020 10/18/2020 Metabolic acidosis [E87.20] 09/23/2020 09/24/2020 Electrolyte abnormality [E87.8] 09/23/2020 Hypoalbuminemia [E88.09] 09/24/2020 09/30/2020 Obesity, Class I, BMI 30-34.9 [E66.811] 09/26/2020 Essential (primary) hypertension [I10] 09/27/2020 Delirium [R41.0] 09/30/2020 10/18/2020 Idiopathic hypotension [I95.0] 09/30/2020 10/18/2020 Abnormal urinalysis [R82.90] 10/02/2020 Moderate protein-calorie malnutrition (HCC) [E4*10/03/2020 Postoperative ileus (HCC) [K91.89, K56.7] 10/04/2020 10/18/2020 On total parenteral nutrition (TPN) [Z78.9] 10/08/2020 10/13/2020 Peripherally inserted central catheter (PICC) i*10/08/2020 10/18/2020 Postoperative urinary retention [N99.89, R33.8] 10/08/2020 Hyponatremia [E87.1] 10/08/2020 10/18/2020 Urinary tract infection associated with indwell*10/13/2020 Prescriptions ordered this encounter Disp Refills Start End NITROFURANTOIN MONOHYDRATE AND MACROCR* 14 c* 0 04/19/2024 04/26/2024 Route: ORAL Sig: Take 1 capsule by mouth two times a day for 7 days. Encounter Status:Closed by JENAE SANTAMARIA on 04/19/24 JOSE DAVID Observed: 04/18/2024 12:00 AM Status: COMPLETED Source: [facility] Telephone (AGSAM) EMELIA JOHNSON ([id number]) 1950 M Date Time Provider Department 04/18/24 JENAE SANTAMARIA During your visit today, we recorded the following information about you: Jojo Garrido MA 04/18/2024 12:25 PM Signed ----- Message from Jenae Santamaria MD sent at 04/17/2024 12:40 PM EST ----- Please call to update that vitamin D is low and will send 12 weeks worth of vitamin D to take weekly MD Hema Jensen Amanda, MA 04/18/2024 12:25 PM Signed Message forwarded to pt Allergies As of Date: 04/18/2024 Noted Allergy Reaction LIPITOR (ATORVASTATIN) 11/17/2013 14 - Other: See Comments Comments: body aches Date Reviewed: 04/07/2024 Reviewed by: Jenae Santamaria MD - Fully Assessed Reason for Visit: Results [95] Prescriptions as of 04/18/2024 - linaGLIPtin (TRADJENTA) 5 mg tab Take 1 tablet by mouth once daily. - icosapent ethyl (VASCEPA) 1 gram capsule Take 2 capsules by mouth two times a day. - ergocalciferol 50,000 unit capsule (VITAMIN D2, DRISDOL) Take 1 capsule by mouth one time a week. - levothyroxine (SYNTHROID) 100 mcg tablet Take 1 tablet by mouth daily before breakfast. - pantoprazole DR (PROTONIX) 40 mg tablet Take 1 tablet by mouth two times a day. - ELIQUIS 5 mg tab(s) Take 1 tablet by mouth two times a day. - finasteride (PROSCAR) 5 mg tablet Take 1 tablet by mouth once daily. - nnyfkbwtrmd-apdyuxgsn-vbrkoxrr (TRELEGY ELLIPTA) 100-62.5-25 mcg inhalation powder Inhale 1 Puff as instructed once daily. - rosuvastatin (CRESTOR) 20 mg tablet Take 1 tablet by mouth daily at bedtime. - amLODIPine (NORVASC) 5 mg tablet Take 1 tablet by mouth once daily. - aspirin, enteric coated (ASPIRIN, ENTERIC COATED) 81 mg EC tablet Take 1 tablet by mouth once daily. - albuterol HFA (PROVENTIL HFA) 90 mcg/actuation inhaler Inhale 1-2 Puffs as instructed four times a day as needed for wheezing/shortness of breath. - fluticasone (FLONASE) 50 mcg/actuation nasal spray SPRAY 1 SPRAY INTO EACH NOSTRIL AT BEDTIME - loratadine (CLARITIN) 10 mg tablet Take 1 tablet by mouth once daily. - FERROUS SULFATE, BULK, MISC - Blood Pressure Test Kit-Large (CLEVER CHOICE BP MONITOR) 1 Each two times a day. - flash glucose sensor (FREESTYLE HEMA 14 DAY SENSOR) kit 1 Each four times daily. - Fenofibrate 160 mg tablet Take 1 tablet by mouth once daily. 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 02/08/2020 Atherosclerosis of [place] artery of extremity w*11/21/2013 Other hyperlipidemia [E78.49] Unspecified hypothyroidism [E03.9] Smoker [F17.200] 01/27/2015 Chronic ischemic right MCA stroke [Z86.73] 02/08/2020 CAD (coronary artery disease), [place] coronary *12/27/2013 Postprocedural hypotension [I95.81] 12/27/2013 09/25/2020 Stress hyperglycemia [R73.9] 12/27/2013 01/27/2015 Hypoxia [R09.02] 12/27/2013 12/28/2013 Acute blood loss anemia [D62] 12/30/2013 01/27/2015 Acute post-operative pain [G89.18] 01/03/2014 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] 01/03/2020 Embolic stroke involving right carotid artery (*02/08/2020 Symptomatic carotid artery stenosis [I65.29] 02/13/2020 BPH (benign prostatic hyperplasia) [N40.0] CKD (chronic kidney disease) stage 3, GFR 30-59* 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* Hemorrhoids [K64.9] Psoriasis [L40.9] Former smoker [Z87.891] AAA (abdominal aortic aneurysm) without rupture* 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 History of right-sided carotid endarterectomy [*03/13/2020 History of CVA (cerebrovascular accident) [Z86.*09/12/2020 Carotid artery disease (HCC) [I77.9] 09/12/2020 09/24/2020 Rectal cancer (HCC) [C20] 09/23/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HCC) [Z93.3] 09/23/2020 Acute postoperative respiratory insufficiency [*09/23/2020 10/18/2020 Metabolic acidosis [E87.20] 09/23/2020 09/24/2020 Electrolyte abnormality [E87.8] 09/23/2020 Hypoalbuminemia [E88.09] 09/24/2020 09/30/2020 Obesity, Class I, BMI 30-34.9 [E66.811] 09/26/2020 Essential (primary) hypertension [I10] 09/27/2020 Delirium [R41.0] 09/30/2020 10/18/2020 Idiopathic hypotension [I95.0] 09/30/2020 10/18/2020 Abnormal urinalysis [R82.90] 10/02/2020 Moderate protein-calorie malnutrition (HCC) [E4*10/03/2020 Postoperative ileus (HCC) [K91.89, K56.7] 10/04/2020 10/18/2020 On total parenteral nutrition (TPN) [Z78.9] 10/08/2020 10/13/2020 Peripherally inserted central catheter (PICC) i*10/08/2020 10/18/2020 Postoperative urinary retention [N99.89, R33.8] 10/08/2020 Hyponatremia [E87.1] 10/08/2020 10/18/2020 Urinary tract infection associated with indwell*10/13/2020 Encounter Status:Closed by JOJO GARRIDO on 04/18/24 JOSE DAVID Observed: 04/18/2024 12:00 AM Status: COMPLETED Source: [facility] Telephone (KARENAM) EMELIA JOHNSON ([id number]) 1950 M Date Time Provider Department 04/18/24 JENAE SANTAMARIA During your visit today, we recorded the following information about you: Jojo Garrido MA 04/18/2024 12:26 PM Signed ----- Message from Jenae Santamaria MD sent at 04/17/2024 9:57 AM EST ----- Please call to see if patient currently consistently taking the levothyroxine/ thyroid medicine at 100 mcg daily or taking the previously higher dose. Will continue the 100 mcg daily instead of the higher dose and will repeat thyroid labs in 2-3 months as currently, he is getting too much of the thyroid medicine. Kidney numbers look improved and liver numbers and electrolytes are within normal ranges. Triglyceride levels are high. Will send fish oil to your pharmacy. A1c or blood sugars have gotten much higher so will need to start medicine for this. Will send you pills for blood sugar. Blood counts look fine. MD Hema Jensen Amanda, MA 04/18/2024 12:26 PM Signed Message forwarded to pt Allergies As of Date: 04/18/2024 Noted Allergy Reaction LIPITOR (ATORVASTATIN) 11/17/2013 14 - Other: See Comments Comments: body aches Date Reviewed: 04/07/2024 Reviewed by: Jenae Santamaria MD - Fully Assessed Reason for Visit: Results [95] Prescriptions as of 04/18/2024 - linaGLIPtin (TRADJENTA) 5 mg tab Take 1 tablet by mouth once daily. - icosapent ethyl (VASCEPA) 1 gram capsule Take 2 capsules by mouth two times a day. - ergocalciferol 50,000 unit capsule (VITAMIN D2, DRISDOL) Take 1 capsule by mouth one time a week. - levothyroxine (SYNTHROID) 100 mcg tablet Take 1 tablet by mouth daily before breakfast. - pantoprazole DR (PROTONIX) 40 mg tablet Take 1 tablet by mouth two times a day. - ELIQUIS 5 mg tab(s) Take 1 tablet by mouth two times a day. - finasteride (PROSCAR) 5 mg tablet Take 1 tablet by mouth once daily. - coyhqkmqhyx-rfcgwzuqi-jeeznncc (TRELEGY ELLIPTA) 100-62.5-25 mcg inhalation powder Inhale 1 Puff as instructed once daily. - rosuvastatin (CRESTOR) 20 mg tablet Take 1 tablet by mouth daily at bedtime. - amLODIPine (NORVASC) 5 mg tablet Take 1 tablet by mouth once daily. - aspirin, enteric coated (ASPIRIN, ENTERIC COATED) 81 mg EC tablet Take 1 tablet by mouth once daily. - albuterol HFA (PROVENTIL HFA) 90 mcg/actuation inhaler Inhale 1-2 Puffs as instructed four times a day as needed for wheezing/shortness of breath. - fluticasone (FLONASE) 50 mcg/actuation nasal spray SPRAY 1 SPRAY INTO EACH NOSTRIL AT BEDTIME - loratadine (CLARITIN) 10 mg tablet Take 1 tablet by mouth once daily. - FERROUS SULFATE, BULK, MISC - Blood Pressure Test Kit-Large ([employer] CHOICE BP MONITOR) 1 Each two times a day. - flash glucose sensor (FREESTYLE HEMA 14 DAY SENSOR) kit 1 Each four times daily. - Fenofibrate 160 mg tablet Take 1 tablet by mouth once daily. 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 02/08/2020 Atherosclerosis of g[place] artery of extremity w*11/21/2013 Other hyperlipidemia [E78.49] Unspecified hypothyroidism [E03.9] Smoker [F17.200] 01/27/2015 Chronic ischemic right MCA stroke [Z86.73] 02/08/2020 CAD (coronary artery disease), gakona coronary *12/27/2013 Postprocedural hypotension [I95.81] 12/27/2013 09/25/2020 Stress hyperglycemia [R73.9] 12/27/2013 01/27/2015 Hypoxia [R09.02] 12/27/2013 12/28/2013 Acute blood loss anemia [D62] 12/30/2013 01/27/2015 Acute post-operative pain [G89.18] 01/03/2014 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] 01/03/2020 Embolic stroke involving right carotid artery (*02/08/2020 Symptomatic carotid artery stenosis [I65.29] 02/13/2020 BPH (benign prostatic hyperplasia) [N40.0] CKD (chronic kidney disease) stage 3, GFR 30-59* 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* Hemorrhoids [K64.9] Psoriasis [L40.9] Former smoker [Z87.891] AAA (abdominal aortic aneurysm) without rupture* 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 History of right-sided carotid endarterectomy [*03/13/2020 History of CVA (cerebrovascular accident) [Z86.*09/12/2020 Carotid artery disease (HCC) [I77.9] 09/12/2020 09/24/2020 Rectal cancer (HCC) [C20] 09/23/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HCC) [Z93.3] 09/23/2020 Acute postoperative respiratory insufficiency [*09/23/2020 10/18/2020 Metabolic acidosis [E87.20] 09/23/2020 09/24/2020 Electrolyte abnormality [E87.8] 09/23/2020 Hypoalbuminemia [E88.09] 09/24/2020 09/30/2020 Obesity, Class I, BMI 30-34.9 [E66.811] 09/26/2020 Essential (primary) hypertension [I10] 09/27/2020 Delirium [R41.0] 09/30/2020 10/18/2020 Idiopathic hypotension [I95.0] 09/30/2020 10/18/2020 Abnormal urinalysis [R82.90] 10/02/2020 Moderate protein-calorie malnutrition (HCC) [E4*10/03/2020 Postoperative ileus (HCC) [K91.89, K56.7] 10/04/2020 10/18/2020 On total parenteral nutrition (TPN) [Z78.9] 10/08/2020 10/13/2020 Peripherally inserted central catheter (PICC) i*10/08/2020 10/18/2020 Postoperative urinary retention [N99.89, R33.8] 10/08/2020 Hyponatremia [E87.1] 10/08/2020 10/18/2020 Urinary tract infection associated with indwell*10/13/2020 Encounter Status:Closed by JOJO GARRIDO on 04/18/24 CBC W AUTO DIFF BLD Collected: 04/15/2024 10:13 AM S tatus: F Source: [facility] Order Comment: Specimen Type : BLOOD SPECIMEN Ordering Facility: [facility] Address: [address] [place] [address] TYPE CODE TESTS RESULT OUT OF RANGE REFERENCE UNITS LAB 6690-2(LOINC) WBC # Bld Auto 6.69 3.70-11.00 k/uL LAB 789-8(INC) RBC # Bld Auto 5.37 4.20-6.00 m/ uL LAB 718-7([facility]) Hgb Bld-mCnc 15.8 13.0-17.0 g/dL LAB 4544-3([facility]) Hct VFr Bld Auto 50.3 39.0-51.0 % LAB 787-2([facility]) MCV RBC Auto 93.7 80.0-100.0 fL LAB 785-6([facility]) MCH RBC Qn Auto 29.4 26.0-34.0 p g LAB 786-4([facility]) MCHC RBC Auto-mCnc 31.4 30.5-36.0 g/dL LAB 78823-4([facility]) RDW RBC-Rto 14.6 11.5-15.0 % LAB 777-3([facility]) Platelet # Bld Auto Result Comment: Reviewed. Re sults checked and verified.No clot detected.Platelets Clumped Estimate Low. LAB 35571-0([facility]) PMV Bld Auto Result Comment: Unable to Re port. LAB 770-8([facility]) Neutrophils/leuk NFr Bld Auto 54.1 % LAB 751-8(LOINC) Neutrophils # Bld Auto 3.61 1.45-7.50 k/uL LAB 736-9(INC) Lymphocytes/leuk NFr Bld Auto 34.5 % LAB 731-0(INC) Lymphocytes # Bld Auto 2.31 1.00-4.00 k/uL LAB 5905-5(INC) Monocytes/leuk NFr Bld Auto 7.3 % LAB 742-7(INC) Monocytes # Bld Auto 0.49 <0.87 k/uL LAB 713-8(INC) Eosinophil/leuk NFr Bld Auto 2.5 % [facility] Eosinophil # Bld Auto 0.17 <0.46 k/uL LAB 706-2([facility]) Basophils/leuk NFr Bld Auto 1.2 % LAB 704-7([facility]) Basophils # Bld Auto 0.08 <0.11 k/uL LAB 01653-0([facility]) Imm Granulocytes/michelle k NFr Bld Auto 0.4 % LAB 11543-9([facility]) Imm Granulocytes # Bld Auto 0.03 <0.10 k/uL LAB 60843-2([facility]) nRBC/100 WBC Bld-Rto 0.0 /100 WBC LAB 771-6([facility]) nRBC # Bld Auto <0.01 <0.01 k/u L LAB 83006-4([facility]) Differential method Bld Auto Performed By: #### 24504-2 # ### [facility] CLIA [id number] [address] [place] [address] [place] DEPRECATED HGB A1C BLD Collected: 04/15 10:13 AM Status: F Source: [facility] Comment: Specimen Type : BLOOD SPECIMEN Ordering Facility: [facility] Address: [address] [place] [address] TYPE CODE TESTS RESULT OUT OF RANGE REFERENCE UNITS LAB 4548-4([facility]) HbA1c MFr Bld 8.4 High 4.3-5.6 % Result Comment: [place] [employer] betes Association guidelines indicate that patients with HgbA1c in the range 5.7-6.4% are at increased risk for development of diabetes, and intervention by lifestyle modification may be beneficial. HgbA1c greater or equal to 6.5% is considered diagnostic of diabetes. LAB 75544-3([facility]) Est. average glucose Bld gHb Est-mCnc 194 mg/dL Result Comment: eAG: (Estima kenya average glucose) is a calculated value from HgbA1c and is patient financial representative of the average blood glucose level in the last 2-3 month period. Performed By: #### 25820-2 # ### [facility] CLIA [id number] [address] [place] [address] [place] COMP METAB 2000 PNL SERPL Collected: 10:13 AM Status: F Source: [facility] Order Comment: Specimen Type : BLOOD SPECIMEN Ordering Facility: [facility] Address: [address] [place] [address] TYPE CODE TESTS RESULT OUT OF RANGE REFERENCE UNITS LAB 2885-2(LOINC) Prot SerPl-mCnc 7.6 6.3-8.0 g/dL LAB 1751-7(LOINC) Albumin SerPl-mCnc 4.0 3.9-4.9 g/dL LAB 79613-5(LOINC) Calcium SerPl-mCnc 9.4 8.5-10.2 mg/dL LAB 1975-2(LOINC) Bilirub SerPl-mCnc 0.4 0.2-1.3 mg/dL LAB 6768-6(LOINC) ALP SerPl-cCnc 83 38-113 U/L LAB 1920-8(LOINC) AST SerPl-cCnc 23 14-40 U/L LAB 1742-6(LOINC) ALT SerPl-cCnc 17 10-54 U/L LAB 2345-7(LOINC) Glucose SerPl-mCnc 159 High 74-99 mg/dL Result Comment: The [place] Diabetes Association (ADA) provides guidance for cutoff values for fasting glucose and random glucose. The ADA defines fasting as no caloric intake for at least 8 hours. Fasting plasma glucose results between 100 to 125 mg/dL indicate increased risk for diabetes (prediabetes). Fasting plasma glucose results greater than or equal to 126 mg/dL meet the criteria for diagnosis of diabetes. In the absence of unequivocal hyperglycemia, results should be confirmed by repeat testing. In a patient with classic symptoms of hyperglycemia or hyperglycemic crisis, random plasma glucose results greater than or equal to 200 mg/dL meet the criteria for diagnosis of diabetes. Reference: Standards of Medical Care in Diabetes 2016, [place] Diabetes Association. Diabetes Care. 2016.39(Suppl 1). LAB 3094-0(LOINC) BUN SerPl-mCnc 16 9-24 mg/ dL LAB 2160-0(LOINC) Creat SerPl-mCnc 1.61 High 0.73-1.22 mg/dL LAB 2951-2(LOINC) Sodium SerPl-sCnc 140 136-144 mmol/L LAB 2823-3(LOINC) Potassium SerPl-sCnc 4.0 3.7-5.1 mmol/L LAB 2075-0(LOINC) Chloride SerPl-sCnc 103 98-107 mmol/L LAB 2028-9(LOINC) CO2 SerPl-sCnc 25 22-30 mmo l/L LAB 14323-2(LOINC) Anion Gap SerPl-sCnc 12 8-15 mmol/L LAB 30670-4(LOINC) Creatinine + eGFR Pnl SerPlBld 45 Low >=60 mL/min/1 .73m??? Result Comment: Estimated Gl omerular Filtration Rate (eGFR) is calculated using the 2020 CKD-EPI creatinine equation. This equation utilizes serum creatinine, sex, and age as parameters. The creatinine assay has traceable calibration to isotope dilution-mass spectrometry. Refer to KDIGO guidelines for clinical interpretation. In patients with unstable renal function, e.g. those with acute kidney injury, the eGFR may not accurately reflect actual GFR. Performed By: #### TSHRF, 24 323-8, 3024-7, 25052-9 #### [facility] CLIA [id number] [address] [place] [address] [place] LIPID 1996 PNL SERPL Collected: 025 10:13 AM Status: F Source: [facility] Order Comment: Specimen Type : BLOOD SPECIMEN Ordering Facility: [facility] Address: [address] [place] [address] TYPE CODE TESTS RESULT OUT OF RANGE REFERENCE UNITS LAB 2093-3(LOINC) Cholest SerPl-mCnc 106 <200 mg/dL Result Comment: <200 mg/dL, Desirable 200-239 mg/dL, Borderline high >239 mg/dL, High LAB 2571-8(LOINC) Trigl SerPl-mCnc 261 High <150 mg/dL Result Comment: <150 mg/dL, Normal 150-199 mg/dL, Borderline high 200-499 mg/dL, High >499 mg/dL, Very high LAB 2085-9(LOINC) HDLc SerPl-mCnc 32 Low >39 mg/dL Result Comment: 40-59 mg/dL, Acceptable >59 mg/dL, High: Negative risk factor for coronary heart disease <40 mg/dL, Low: Positive risk factor for coronary heart disease LAB 09297-7(LOINC) NonHDLc SerPl-mCnc 74 <130 mg/dL Result Comment: <130 mg/dL, Optimal 130-159 mg/dL, Near optimal/above optimal 160-189 mg/dL, Borderline high 190-219 mg/dL, High >219 mg/dL, Very high Secondary prevention optimal non HDL Cholesterol levels are recommended to be <100 mg/dL LAB FT FASTING TIME 12 hrs LAB 96048-4(LOINC) VLDLc SerPl Calc-mCnc 52 High <30 mg/dL LAB 9830-1(LOINC) Cholest/HDLc SerPl 3.31 <5.10 LAB 2089-1(LOINC) LDLc SerPl-mCnc 22 <100 mg/dL Result Comment: <100 mg/dL, Optimal 100-129 mg/dL, Near optimal/above optimal 130-159 mg/dL, Borderline high 160-189 mg/dL, High >189 mg/dL, Very high Secondary prevention optimal LDL Cholesterol levels are recommended to be < 70 mg/dL LAB 62093-0(LOINC) LDLc/HDLc SerPl 0.69 <2.54 Result Comment: Reference: 1. National Cholesterol Education Program ATP III Guideline At-A-Glance Quick Desk Reference: National Heart, Lung, and Blood [place]. National Institutes of Health. 2001: NIH Publication No. 01-3305. 2. An International Atherosclerosis Society position paper: global recommendations for the management of dyslipidemia: executive summary, Atherosclerosis. 2014: 232(2):410-413. Performed By: #### TSHRF, 24 323-8, 3024-7, 50384-8 #### [facility] CLIA [id number] [address] [place] [address] [place] TSH W/REFLEX FT4 Collected: 5 10:13 AM Status: F Source: [facility] Order Comment: Specimen Type : BLOOD SPECIMEN Ordering Facility: [facility] Address: [address] [place] [address] TYPE CODE TESTS RESULT OUT OF RANGE REFERENCE UNITS LAB 3016-3(INC) TSH SerPl-aCnc 0.141 Low 0.270-4.200 mIU/L Performed By: #### TSHRF, 24 323-8, 3024-7, 48631-8 #### [facility] CLIA [id number] [address] [place] [address] [place] T4 FREE SERPL-MCNC Collected: 10:13 AM Status: F Source: [facility] Order Comment: Specimen Type : BLOOD SPECIMEN Ordering Facility: [facility] Address: [address] [place] [address] TYPE CODE TESTS RESULT OUT OF RANGE REFERENCE UNITS LAB 3024-7(LOINC) T4 Free SerPl-mCnc 1.5 0.9-1.7 ng/dL Performed By: #### TSHRF, 24 323-8, 3024-7, 67337-3 #### [facility] CLIA [id number] [address] [place] [address] [place] 25([place])D3 SERPL-MCNC Collected: 04/15/19 10:13 AM Status: F Source: [facility] Order Comment: Specimen Type : BLOOD SPECIMEN Ordering Facility: [facility] Address: [address] [place] [address] TYPE CODE TESTS RESULT OUT OF RANGE REFERENCE UNITS LAB 1988-(LOINC) 25(OH)D3 SerPl-mCnc 15.8 Low 31.0-80.0 ng/mL Result Comment: Classificati on of 25 [place] Vitamin D status: Deficiency/Insufficiency: < or = 30 ng/ml. Sufficiency/Optimal Levels: 31-80 ng/mL Toxicity: > 100 ng/mL. Test performed by chemiluminescent immunoassay. Performed By: #### 1988-05 ## ## [facility] CLIA [id number] [address] [place] [address] [place] CNPN Observed: 2024 12:00 AM Status: COMPLETED Source: [facility] Telephone (AGSAM) EMELIA JOHNSON ([id number]) 1950 Date Time Provider Department 04/11/24 SANTAMARIA, JENAE AGSAM During your visit today, we recorded the following information about you: Jojo Garrido MA 2024 12:24 PM Signed [facility] [phone] nurse called to report family states pt's having some dark urine and a change in mental status, asking for an order for a urine and a verbal ok for pt Please advise Jenae Santamaria MD 2024 12:58 PM Signed Yes, please get urinalysis with culture and get sample via straight cath or with maddox catheter change MD Hina Jensen Benita, MD 2024 12:58 PM Signed Addended by: JENAE SANTAMARIA on: 2024 12:58 PM Modules accepted: Orders Jojo Garrido MA 2024 3:12 PM Signed Marcy nurse advised Allergies As of Date: 2024 Noted Allergy Reaction LIPITOR (ATORVASTATIN) 11/17/2013 14 - Other: See Comments Comments: body aches Date Reviewed: 04/07/2024 Reviewed by: Jenae Santamaria MD - Fully Assessed Reason for Visit: Patient Question [1477] Primary Visit Diagnosis:Urinary tract infection associated with indwelling urethral catheter, initial encounter ([facility]) ([facility]) [T83.511A, N39.0] Order(s):URINALYSIS (WITH MICROSCOPIC) WITH CULTURE IF INDICATED [SQUACII] Order #: [id number] FUTURE Prescriptions as of 2024 - levothyroxine (SYNTHROID) 100 mcg tablet Take 1 tablet by mouth daily before breakfast. - pantoprazole DR (PROTONIX) 40 mg tablet Take 1 tablet by mouth two times a day. - ELIQUIS 5 mg tab(s) Take 1 tablet by mouth two times a day. - finasteride (PROSCAR) 5 mg tablet Take 1 tablet by mouth once daily. - fmkwbauztzv-xazbvplff-tthqgjbk (TRELEGY ELLIPTA) 100-62.5-25 mcg inhalation powder Inhale 1 Puff as instructed once daily. - rosuvastatin (CRESTOR) 20 mg tablet Take 1 tablet by mouth daily at bedtime. - amLODIPine (NORVASC) 5 mg tablet Take 1 tablet by mouth once daily. - aspirin, enteric coated (ASPIRIN, ENTERIC COATED) 81 mg EC tablet Take 1 tablet by mouth once daily. - albuterol HFA (PROVENTIL HFA) 90 mcg/actuation inhaler Inhale 1-2 Puffs as instructed four times a day as needed for wheezing/shortness of breath. - fluticasone (FLONASE) 50 mcg/actuation nasal spray SPRAY 1 SPRAY INTO EACH NOSTRIL AT BEDTIME - loratadine (CLARITIN) 10 mg tablet Take 1 tablet by mouth once daily. - FERROUS SULFATE, BULK, MISC - Blood Pressure Test Kit-Large ([employer] BP MONITOR) 1 Each two times a day. - ergocalciferol 50,000 unit capsule (VITAMIN D2, DRISDOL) Take 1 capsule by mouth one time a week. - flash glucose sensor (ChoozleSTYLE HEMA 14 DAY SENSOR) kit 1 Each four times daily. - Fenofibrate 160 mg tablet Take 1 tablet by mouth once daily. 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*11/21/2013 02/08/2020 Atherosclerosis of [place] artery of extremity w*11/21/2013 Other hyperlipidemia [E78.49] Unspecified hypothyroidism [E03.9] Smoker [F17.200] 01/27/2015 Chronic ischemic right MCA stroke [Z86.73] 02/08/2020 CAD (coronary artery disease), gakona coronary *12/27/2013 Postprocedural hypotension [I95.81] 12/27/2013 09/25/2020 Stress hyperglycemia [R73.9] 12/27/2013 01/27/2015 Hypoxia [R09.02] 12/27/2013 12/28/2013 Acute blood loss anemia [D62] 12/30/2013 01/27/2015 Acute post-operative pain [G89.18] 01/03/2014 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] 01/03/2020 Embolic stroke involving right carotid artery (*02/08/2020 Symptomatic carotid artery stenosis [I65.29] 02/13/2020 BPH (benign prostatic hyperplasia) [N40.0] CKD (chronic kidney disease) stage 3, GFR 30-59* 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* Hemorrhoids [K64.9] Psoriasis [L40.9] Former smoker [Z87.891] AAA (abdominal aortic aneurysm) without rupture* 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 History of right-sided carotid endarterectomy [*03/13/2020 History of CVA (cerebrovascular accident) [Z86.*09/12/2020 Carotid artery disease (HCC) [I77.9] 09/12/2020 09/24/2020 Rectal cancer (HCC) [C20] 09/23/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HCC) [Z93.3] 09/23/2020 Acute postoperative respiratory insufficiency [*09/23/2020 10/18/2020 Metabolic acidosis [E87.20] 09/23/2020 09/24/2020 Electrolyte abnormality [E87.8] 09/23/2020 Hypoalbuminemia [E88.09] 09/24/2020 09/30/2020 Obesity, Class I, BMI 30-34.9 [E66.811] 09/26/2020 Essential (primary) hypertension [I10] 09/27/2020 Delirium [R41.0] 09/30/2020 10/18/2020 Idiopathic hypotension [I95.0] 09/30/2020 10/18/2020 Abnormal urinalysis [R82.90] 10/02/2020 Moderate protein-calorie malnutrition (HCC) [E4*10/03/2020 Postoperative ileus (HCC) [K91.89, K56.7] 10/04/2020 10/18/2020 On total parenteral nutrition (TPN) [Z78.9] 10/08/2020 10/13/2020 Peripherally inserted central catheter (PICC) i*10/08/2020 10/18/2020 Postoperative urinary retention [N99.89, R33.8] 10/08/2020 Hyponatremia [E87.1] 10/08/2020 10/18/2020 Urinary tract infection associated with indwell*10/13/2020 Encounter Status:Closed by JENAE SANTAMARIA on 04/11/24 JOSE DAVID Observed: 04/10/2024 12:00 AM Status: COMPLETED Source: [facility] Telephone (AGVASACC) EMELIA JOHNSON ([id number]) 1950 M Date Time Provider Department 04/10/24 YEE TELLEZ During your visit today, we recorded the following information about you: Jese Cerda 04/10/2024 4:46 PM Signed Spoke with patients daughter, she declined to schedule at this time. Stated they would have to go over schedules and trying to get everything done in [place] or as close to home as possible Needs to schedule testing with CS then schedule with any vascular New Patient Referral from Jenae Santamaria [phone] for AAA without Rupture, Hx of Aorta-Femoral Bypass, PAD with US ARTERIAL PVR Allergies As of Date: 04/10/2024 Noted Allergy Reaction LIPITOR (ATORVASTATIN) 11/17/2013 14 - Other: See Comments Comments: body aches Date Reviewed: 04/07/2024 Reviewed by: Jenae Santamaria MD - Fully Assessed Reason for Visit: Consult [502] Cmt: PPG REFERRAL - Needs testing prior Prescriptions as of 04/10/2024 - levothyroxine (SYNTHROID) 100 mcg tablet Take 1 tablet by mouth daily before breakfast. - pantoprazole DR (PROTONIX) 40 mg tablet Take 1 tablet by mouth two times a day. - ELIQUIS 5 mg tab(s) Take 1 tablet by mouth two times a day. - finasteride (PROSCAR) 5 mg tablet Take 1 tablet by mouth once daily. - kirymenehuc-csugfipiv-shdjcukw (TRELEGY ELLIPTA) 100-62.5-25 mcg inhalation powder Inhale 1 Puff as instructed once daily. - rosuvastatin (CRESTOR) 20 mg tablet Take 1 tablet by mouth daily at bedtime. - amLODIPine (NORVASC) 5 mg tablet Take 1 tablet by mouth once daily. - aspirin, enteric coated (ASPIRIN, ENTERIC COATED) 81 mg EC tablet Take 1 tablet by mouth once daily. - albuterol HFA (PROVENTIL HFA) 90 mcg/actuation inhaler Inhale 1-2 Puffs as instructed four times a day as needed for wheezing/shortness of breath. - fluticasone (FLONASE) 50 mcg/actuation nasal spray SPRAY 1 SPRAY INTO EACH NOSTRIL AT BEDTIME - loratadine (CLARITIN) 10 mg tablet Take 1 tablet by mouth once daily. - FERROUS SULFATE, BULK, MISC - Blood Pressure Test Kit-Large ([employer] BP MONITOR) 1 Each two times a day. - ergocalciferol 50,000 unit capsule (VITAMIN D2, DRISDOL) Take 1 capsule by mouth one time a week. - flash glucose sensor (FREESTYLE HEMA 14 DAY SENSOR) kit 1 Each four times daily. - Fenofibrate 160 mg tablet Take 1 tablet by mouth once daily. 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 02/08/2020 Atherosclerosis of [place] artery of extremity w*11/21/2013 Other hyperlipidemia [E78.49] Unspecified hypothyroidism [E03.9] Smoker [F17.200] 01/27/2015 Chronic ischemic right MCA stroke [Z86.73] 02/08/2020 CAD (coronary artery disease), gakona coronary *12/27/2013 Postprocedural hypotension [I95.81] 12/27/2013 09/25/2020 Stress hyperglycemia [R73.9] 12/27/2013 01/27/2015 Hypoxia [R09.02] 12/27/2013 12/28/2013 Acute blood loss anemia [D62] 12/30/2013 01/27/2015 Acute post-operative pain [G89.18] 01/03/2014 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] 01/03/2020 Embolic stroke involving right carotid artery (*02/08/2020 Symptomatic carotid artery stenosis [I65.29] 02/13/2020 BPH (benign prostatic hyperplasia) [N40.0] CKD (chronic kidney disease) stage 3, GFR 30-59* 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* Hemorrhoids [K64.9] Psoriasis [L40.9] Former smoker [Z87.891] AAA (abdominal aortic aneurysm) without rupture* 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 History of right-sided carotid endarterectomy [*03/13/2020 History of CVA (cerebrovascular accident) [Z86.*09/12/2020 Carotid artery disease (HCC) [I77.9] 09/12/2020 09/24/2020 Rectal cancer (HCC) [C20] 09/23/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HCC) [Z93.3] 09/23/2020 Acute postoperative respiratory insufficiency [*09/23/2020 10/18/2020 Metabolic acidosis [E87.20] 09/23/2020 09/24/2020 Electrolyte abnormality [E87.8] 09/23/2020 Hypoalbuminemia [E88.09] 09/24/2020 09/30/2020 Obesity, Class I, BMI 30-34.9 [E66.811] 09/26/2020 Essential (primary) hypertension [I10] 09/27/2020 Delirium [R41.0] 09/30/2020 10/18/2020 Idiopathic hypotension [I95.0] 09/30/2020 10/18/2020 Abnormal urinalysis [R82.90] 10/02/2020 Moderate protein-calorie malnutrition (HCC) [E4*10/03/2020 Postoperative ileus (HCC) [K91.89, K56.7] 10/04/2020 10/18/2020 On total parenteral nutrition (TPN) [Z78.9] 10/08/2020 10/13/2020 Peripherally inserted central catheter (PICC) i*10/08/2020 10/18/2020 Postoperative urinary retention [N99.89, R33.8] 10/08/2020 Hyponatremia [E87.1] 10/08/2020 10/18/2020 Urinary tract infection associated with indwell*10/13/2020 Encounter Status:Closed by JESE CERDA on 04/10/24 PROGRESS Observed: 04/07/2024 9:30 AM Status: COMPLETED Source: [facility] HNO ID: [id number] Author: JENAE SANTAMARIA MD Service: ? Author Type: Physician Type: Progress Notes Filed: 04/07/2024 18:05 Note Text: [facility] [address] [place] [address] Date of Evaluation: 04/07/2024 Patient Name: Emelia Johnson : 1950 Chief Complaint: Patient presents with: 4 month follow up Subjective HPI Mr. Johnson is a 73 year old male who presents for follow up visit. Patient presents with son. Patient was admitted at [facility] in December for acute encephalopathy due to CAUTI. He was treated for UTI with 5 days of bactrim and for hypothyroidism, found to be supra therapeutic so synthroid decreased form 175 mcg to 100 mcg daily. There were concern concerns for possible sleep apnea and there were apneic episodes seen during admission and hypoxic episodes with saturations in the 70's. Patient also was seen by GI with EGD done and was found to have evidence of EOE and esophageal stenosis which was dilated. He was also seen to have hiatal hernia. On discharge, patient was started on pantoprazole 40 mg BID. Patient was discharged to SNF x 2 weeks. Patient will be seeing Dr. Ramos (GI) for follow up visit again after seeing him in January. Patient's son discusses getting differing information about patient's LLE swelling with some providers noting blood clot and others saying that patient has no blood clot. Patient has been consistently taking Eliquis now and not noticing any blood in stool as he previously had noticed. Patient discusses improved breathing and coughing on Trelegy but still will experience occasional coughing. Discussed various specialists that patient will need to follow up with including other specialists that patient has yet to have seen from old referrals made. Review of Systems Constitutional: Negative for appetite change, chills, fever and unexpected weight change. Eyes: Negative for visual disturbance. Respiratory: Positive for cough. Negative for shortness of breath. Cardiovascular: Negative for chest pain and leg swelling. Gastrointestinal: Negative for abdominal pain, blood in stool, constipation and diarrhea. Genitourinary: Negative for hematuria. Musculoskeletal: Positive for arthralgias and gait problem. Skin: Negative for rash. Neurological: Negative for dizziness, weakness, light-headedness and headaches. Hematological: Does not bruise/bleed easily. Psychiatric/Behavioral: Negative for confusion. PAST MEDICAL HISTORY Diagnosis Date Abdominal aneurysm without mention of rupture Aneurysm - Abdominal Aorta Atherosclerosis of [place] arteries of the extremities with intermittent claudication ASO - Extremities AND Claudication CAD (coronary artery disease) Coronary artery disease Cancer (HCC) CKD (chronic kidney disease) stage 3, GFR 30-59 ml/min (HCC) Colon cancer (HCC) Depression Diabetes (HCC) Dyslipidemia Former smoker quit 2 weeks ago Hyperlipidemia Hypertension Hypertrophy of prostate with urinary obstruction and other lower urinary tract symptoms (LUTS) Hypertrophy of the prostate with obstruction Obesity Occlusion and stenosis of carotid artery with cerebral infarction ASO - Carotid W/O Infarction Other psoriasis and similar disorders Psoriasis Retention of urine Stroke (cerebrum) ([facility]) Unspecified hemorrhoids without mention of complication Hemorrhoids Unspecified hypothyroidism Hypothyroidism PAST SURGICAL HISTORY Procedure Laterality Date BYP OTH/THN VEIN AORTOBIFEMORAL 2013 aortobifem LAPAROSCOPIC HEMICOLECTOMY colostomy PAST SURGICAL HISTORY OF Right 02/13/2020 [facility] FAMILY HISTORY Problem Relation Age of Onset Diabetes Father Stroke ( age 89) Diabetes Mother Stroke ( age 88) Stroke Mother Diabetes Sister Brain ( age 64) Diabetes Brother other (Old Age) Maternal Grandmother age 98 Diabetes Maternal Grandfather No Ocular Disease No Family History Social History Tobacco Use Smoking status: Former Current packs/day: 0.00 Average packs/day: 3.0 packs/day for 50.0 years (150.0 ttl pk-yrs) Types: Cigars, Cigarettes Start date: 10/28/1963 Quit date: 10/27/2013 Years since quittin.4 Smokeless tobacco: Never Vaping Use Vaping status: Never Used Substance Use Topics Alcohol use: No Drug use: No Current Outpatient Medications Medication Sig amLODIPine (NORVASC) 5 mg tablet Take 1 tablet by mouth once daily. aspirin, enteric coated (ASPIRIN, ENTERIC COATED) 81 mg EC tablet Take 1 tablet by mouth once daily. albuterol HFA (PROVENTIL HFA) 90 mcg/actuation inhaler Inhale 1-2 Puffs as instructed four times a day as needed for wheezing/shortness of breath. fluticasone (FLONASE) 50 mcg/actuation nasal spray SPRAY 1 SPRAY INTO EACH NOSTRIL AT BEDTIME loratadine (CLARITIN) 10 mg tablet Take 1 tablet by mouth once daily. FERROUS SULFATE, BULK, [facility] Blood Pressure Test Kit-Large ([employer] BP MONITOR) 1 Each two times a day. ergocalciferol 50,000 unit capsule (VITAMIN D2, DRISDOL) Take 1 capsule by mouth one time a week. flash glucose sensor (FREESTYLE HEMA 14 DAY SENSOR) kit 1 Each four times daily. Fenofibrate 160 mg tablet Take 1 tablet by mouth once daily. levothyroxine (SYNTHROID) 100 mcg tablet Take 1 tablet by mouth daily before breakfast. pantoprazole DR (PROTONIX) 40 mg tablet Take 1 tablet by mouth two times a day. ELIQUIS 5 mg tab(s) Take 1 tablet by mouth two times a day. finasteride (PROSCAR) 5 mg tablet Take 1 tablet by mouth once daily. hvhexxcukiz-dkxpndwzc-lfhuuvmm (TRELEGY ELLIPTA) 100-62.5-25 mcg inhalation powder Inhale 1 Puff as instructed once daily. rosuvastatin (CRESTOR) 20 mg tablet Take 1 tablet by mouth daily at bedtime. No current facility-administered medications for this visit. I have confirmed and edited as necessary the chief complaint, medications, past medical, family and social histories obtained by others. Objective BP 126/72 Pulse 97 Resp 12 Ht 5' 7 (1.70m) Wt 180 lb (81.6kg) SpO2 97% BMI 28.19 kg/(m2). Physical Exam Vitals reviewed. Constitutional: General: He is not in acute distress. Appearance: Normal appearance. He is not ill-appearing, toxic-appearing or diaphoretic. HENT: Head: Normocephalic and atraumatic. Right Ear: External ear normal. Left Ear: External ear normal. Mouth/Throat: Mouth: Mucous membranes are moist. Pharynx: Oropharynx is clear. Eyes: General: No scleral icterus. Extraocular Movements: Extraocular movements intact. Conjunctiva/sclera: Conjunctivae normal. Pupils: Pupils are equal, round, and reactive to light. Cardiovascular: Rate and Rhythm: Normal rate and regular rhythm. Heart sounds: No murmur heard. No friction rub. No gallop. Pulmonary: Effort: Pulmonary effort is normal. No respiratory distress. Breath sounds: Normal breath sounds. No wheezing, rhonchi or rales. Abdominal: General: Abdomen is flat. Bowel sounds are normal. There is no distension. Palpations: Abdomen is soft. Tenderness: There is no abdominal tenderness. Musculoskeletal: General: Normal range of motion. Cervical back: Normal range of motion. Right lower leg: No edema. Left lower leg: No edema. Skin: General: Skin is warm and dry. Coloration: Skin is not jaundiced. Neurological: Mental Status: He is alert and oriented to person, place, and time. Psychiatric: Mood and Affect: Mood normal. Behavior: Behavior normal. Thought Content: Thought content normal. Judgment: Judgment normal. Data Reviewed: Most recent labs ASSESSMENT/PLAN: 1. Type 2 diabetes mellitus with other circulatory complication, with long-term current use of insulin ([facility]) - ICD9: 250.70, V58.67, ICD10: E11.59, Z79.4 (primary diagnosis) - Control undetermined, due for labs - Counseled on healthy diet and regular exercise - HEMOGLOBIN A1C - COMPREHENSIVE METABOLIC PANEL - LIPID PANEL BASIC 2. Unspecified hypothyroidism - ICD9: 244.9, ICD10: E03.9 - Instructed patient on importance of taking on an empty stomach either first thing in the morning or at bedtime. - TSH W/REFLEX FT4 - LEVOTHYROXINE 100 MCG TABLET- for now until TSH checked but suspect will likely need to increase dose 3. Abdominal aortic aneurysm (AAA) without rupture, unspecified part ([facility]) - ICD9: 441.4, ICD10: I71.40 - CONSULT TO VASCULAR SURGERY 4. H/O aorto-femoral bypass - ICD9: V15.1, ICD10: Z95.828 - CONSULT TO VASCULAR SURGERY 5. PAD (peripheral artery disease) ([facility]) - ICD9: 443.9, ICD10: I73.9 - patient on Eliquis and crestor - CONSULT TO VASCULAR SURGERY - COMPLETE BLOOD COUNT AND DIFFERENTIAL 6. Chronic obstructive pulmonary disease, unspecified COPD type ([facility]) - ICD9: 496, ICD10: J44.9 - CONSULT TO PULMONARY MEDICINE - TRELEGY ELLIPTA 100 MCG-62.5 MCG-25 MCG POWDER FOR INHALATION 7. JANELL (obstructive sleep apnea) - ICD9: 327.23, ICD10: G47.33 - POLYSOMNOGRAM (PSG) - CONSULT TO PULMONARY MEDICINE 8. Rectal cancer ([facility]) - ICD9: 154.1, ICD10: C20 - advised patient to follow up with hem/onc and schedule imaging as ordered by hem/onc back in April of last year - COMPLETE BLOOD COUNT AND DIFFERENTIAL 9. Encounter for immunization - ICD9: V03.89, ICD10: Z23 - PFIZER-BIONTECH COVID-19 VACCINE AGE 12+ YR ([facility]) 10. Vitamin D deficiency - ICD9: 268.9, ICD10: E55.9 - VITAMIN D 25 HYDROXY 11. Eosinophilic esophagitis - ICD9: 530.13, ICD10: K20.0 - patient following with Dr. Ramos (GI) in [place] - PANTOPRAZOLE 40 MG TABLET,DELAYED RELEASE 12. History of DVT (deep vein thrombosis) - ICD9: V12.51, ICD10: Z86.718 - ELIQUIS 5 MG TABLET Jenae Santamaria MD Return in about 3 months (around 07/06/2024). Discussed the above with the patient using shared decision making. The patient is in agreement with the diagnostic and treatment plans. CNOV Observed: 04/07/2024 9:20 AM Status: COMPLETED Source: [facility] Office Visit ([facility]) EMELIA JOHNSON ([id number]) 1950 M Date Time Provider Department 04/07/24 9:20 AM JENAE SANTAMARIA AGS During your visit today, we recorded the following information about you: Pulse Respiration Blood pressure Weight 97/minute 12/minute 126/72 81.6 kg Height 1.702 m Jenae Santamaria MD 04/07/2024 6:05 PM Signed [facility] [address] [place] [address] Date of Evaluation: 04/07/2024 Patient Name: Emelia Johnson : 1950 Chief Complaint: Patient presents with: 4 month follow up Subjective HPI Mr. Johnson is a 73 year old male who presents for follow up visit. Patient presents with son. Patient was admitted at [facility] in December for acute encephalopathy due to CAUTI. He was treated for UTI with 5 days of bactrim and for hypothyroidism, found to be supra therapeutic so synthroid decreased form 175 mcg to 100 mcg daily. There were concern concerns for possible sleep apnea and there were apneic episodes seen during admission and hypoxic episodes with saturations in the 70's. Patient also was seen by GI with EGD done and was found to have evidence of EOE and esophageal stenosis which was dilated. He was also seen to have hiatal hernia. On discharge, patient was started on pantoprazole 40 mg BID. Patient was discharged to SNF x 2 weeks. Patient will be seeing Dr. Ramos (GI) for follow up visit again after seeing him in January. Patient's son discusses getting differing information about patient's LLE swelling with some providers noting blood clot and others saying that patient has no blood clot. Patient has been consistently taking Eliquis now and not noticing any blood in stool as he previously had noticed. Patient discusses improved breathing and coughing on Trelegy but still will experience occasional coughing. Discussed various specialists that patient will need to follow up with including other specialists that patient has yet to have seen from old referrals made. Review of Systems Constitutional: Negative for appetite change, chills, fever and unexpected weight change. Eyes: Negative for visual disturbance. Respiratory: Positive for cough. Negative for shortness of breath. Cardiovascular: Negative for chest pain and leg swelling. Gastrointestinal: Negative for abdominal pain, blood in stool, constipation and diarrhea. Genitourinary: Negative for hematuria. Musculoskeletal: Positive for arthralgias and gait problem. Skin: Negative for rash. Neurological: Negative for dizziness, weakness, light-headedness and headaches. Hematological: Does not bruise/bleed easily. Psychiatric/Behavioral: Negative for confusion. PAST MEDICAL HISTORY Diagnosis Date Abdominal aneurysm without mention of rupture Aneurysm - Abdominal Aorta Atherosclerosis of [place] arteries of the extremities with intermittent claudication ASO - Extremities AND Claudication CAD (coronary artery disease) Coronary artery disease Cancer (HCC) CKD (chronic kidney disease) stage 3, GFR 30-59 ml/min (HCC) Colon cancer (HCC) Depression Diabetes (HCC) Dyslipidemia Former smoker quit 2 weeks ago Hyperlipidemia Hypertension Hypertrophy of prostate with urinary obstruction and other lower urinary tract symptoms (LUTS) Hypertrophy of the prostate with obstruction Obesity Occlusion and stenosis of carotid artery with cerebral infarction ASO - Carotid W/O Infarction Other psoriasis and similar disorders Psoriasis Retention of urine Stroke (cerebrum) (HCC) Unspecified hemorrhoids without mention of complication Hemorrhoids Unspecified hypothyroidism Hypothyroidism PAST SURGICAL HISTORY Procedure Laterality Date BYP OTH/THN VEIN AORTOBIFEMORAL 2013 aortobifem LAPAROSCOPIC HEMICOLECTOMY colostomy PAST SURGICAL HISTORY OF Right 02/13/2020 [facility] HISTORY Problem Relation Age of Onset Diabetes Father Stroke ( age 89) Diabetes Mother Stroke ( age 88) Stroke Mother Diabetes Sister Brain ( age 64) Diabetes Brother other (Old Age) Maternal Grandmother age 98 Diabetes Maternal Grandfather No Ocular Disease No Family History Social History Tobacco Use Smoking status: Former Current packs/day: 0.00 Average packs/day: 3.0 packs/day for 50.0 years (150.0 ttl pk-yrs) Types: Cigars, Cigarettes Start date: 10/28/1963 Quit date: 10/27/2013 Years since quittin.4 Smokeless tobacco: Never Vaping Use Vaping status: Never Used Substance Use Topics Alcohol use: No Drug use: No Current Outpatient Medications Medication Sig amLODIPine (NORVASC) 5 mg tablet Take 1 tablet by mouth once daily. aspirin, enteric coated (ASPIRIN, ENTERIC COATED) 81 mg EC tablet Take 1 tablet by mouth once daily. albuterol HFA (PROVENTIL HFA) 90 mcg/actuation inhaler Inhale 1-2 Puffs as instructed four times a day as needed for wheezing/shortness of breath. fluticasone (FLONASE) 50 mcg/actuation nasal spray SPRAY 1 SPRAY INTO EACH NOSTRIL AT BEDTIME loratadine (CLARITIN) 10 mg tablet Take 1 tablet by mouth once daily. FERROUS SULFATE, BULK, [facility] Blood Pressure Test Kit-Large ([employer] BP MONITOR) 1 Each two times a day. ergocalciferol 50,000 unit capsule (VITAMIN D2, DRISDOL) Take 1 capsule by mouth one time a week. flash glucose sensor (FREESTYLE HEMA 14 DAY SENSOR) kit 1 Each four times daily. Fenofibrate 160 mg tablet Take 1 tablet by mouth once daily. levothyroxine (SYNTHROID) 100 mcg tablet Take 1 tablet by mouth daily before breakfast. pantoprazole DR (PROTONIX) 40 mg tablet Take 1 tablet by mouth two times a day. ELIQUIS 5 mg tab(s) Take 1 tablet by mouth two times a day. finasteride (PROSCAR) 5 mg tablet Take 1 tablet by mouth once daily. ejgsdwsdigi-ehgfwbyfa-fzorlhyu (TRELEGY ELLIPTA) 100-62.5-25 mcg inhalation powder Inhale 1 Puff as instructed once daily. rosuvastatin (CRESTOR) 20 mg tablet Take 1 tablet by mouth daily at bedtime. No current facility-administered medications for this visit. I have confirmed and edited as necessary the chief complaint, medications, past medical, family and social histories obtained by others. Objective BP 126/72 Pulse 97 Resp 12 Ht 5' 7 (1.70m) Wt 180 lb (81.6kg) SpO2 97% BMI 28.19 kg/(m2). Physical Exam Vitals reviewed. Constitutional: General: He is not in acute distress. Appearance: Normal appearance. He is not ill-appearing, toxic-appearing or diaphoretic. HENT: Head: Normocephalic and atraumatic. Right Ear: External ear normal. Left Ear: External ear normal. Mouth/Throat: Mouth: Mucous membranes are moist. Pharynx: Oropharynx is clear. Eyes: General: No scleral icterus. Extraocular Movements: Extraocular movements intact. Conjunctiva/sclera: Conjunctivae normal. Pupils: Pupils are equal, round, and reactive to light. Cardiovascular: Rate and Rhythm: Normal rate and regular rhythm. Heart sounds: No murmur heard. No friction rub. No gallop. Pulmonary: Effort: Pulmonary effort is normal. No respiratory distress. Breath sounds: Normal breath sounds. No wheezing, rhonchi or rales. Abdominal: General: Abdomen is flat. Bowel sounds are normal. There is no distension. Palpations: Abdomen is soft. Tenderness: There is no abdominal tenderness. Musculoskeletal: General: Normal range of motion. Cervical back: Normal range of motion. Right lower leg: No edema. Left lower leg: No edema. Skin: General: Skin is warm and dry. Coloration: Skin is not jaundiced. Neurological: Mental Status: He is alert and oriented to person, place, and time. Psychiatric: Mood and Affect: Mood normal. Behavior: Behavior normal. Thought Content: Thought content normal. Judgment: Judgment normal. Data Reviewed: Most recent labs ASSESSMENT/PLAN: 1. Type 2 diabetes mellitus with other circulatory complication, with long-term current use of insulin ([facility]) - ICD9: 250.70, V58.67, ICD10: E11.59, Z79.4 (primary diagnosis) - Control undetermined, due for labs - Counseled on healthy diet and regular exercise - HEMOGLOBIN A1C - COMPREHENSIVE METABOLIC PANEL - LIPID PANEL BASIC 2. Unspecified hypothyroidism - ICD9: 244.9, ICD10: E03.9 - Instructed patient on importance of taking on an empty stomach either first thing in the morning or at bedtime. - TSH W/REFLEX FT4 - LEVOTHYROXINE 100 MCG TABLET- for now until TSH checked but suspect will likely need to increase dose 3. Abdominal aortic aneurysm (AAA) without rupture, unspecified part ([facility]) - ICD9: 441.4, ICD10: I71.40 - CONSULT TO VASCULAR SURGERY 4. H/O aorto-femoral bypass - ICD9: V15.1, ICD10: Z95.828 - CONSULT TO VASCULAR SURGERY 5. PAD (peripheral artery disease) ([facility]) - ICD9: 443.9, ICD10: I73.9 - patient on Eliquis and crestor - CONSULT TO VASCULAR SURGERY - COMPLETE BLOOD COUNT AND DIFFERENTIAL 6. Chronic obstructive pulmonary disease, unspecified COPD type ([facility]) - ICD9: 496, ICD10: J44.9 - CONSULT TO PULMONARY MEDICINE - TRELEGY ELLIPTA 100 MCG-62.5 MCG-25 MCG POWDER FOR INHALATION 7. JANELL (obstructive sleep apnea) - ICD9: 327.23, ICD10: G47.33 - POLYSOMNOGRAM (PSG) - CONSULT TO PULMONARY MEDICINE 8. Rectal cancer (HCC) - ICD9: 154.1, ICD10: C20 - advised patient to follow up with hem/onc and schedule imaging as ordered by hem/onc back in April of last year - COMPLETE BLOOD COUNT AND DIFFERENTIAL 9. Encounter for immunization - ICD9: V03.89, ICD10: Z23 - PFIZER[employer] COVID-19 VACCINE AGE 12+ YR ([facility]Y) 10. Vitamin D deficiency - ICD9: 268.9, ICD10: E55.9 - VITAMIN D 25 HYDROXY 11. Eosinophilic esophagitis - ICD9: 530.13, ICD10: K20.0 - patient following with Dr. Ramos (GI) in [place] - PANTOPRAZOLE 40 MG TABLET,DELAYED RELEASE 12. History of DVT (deep vein thrombosis) - ICD9: V12.51, ICD10: Z86.718 - ELIQUIS 5 MG TABLET Jenae Santamaria MD Return in about 3 months (around 07/06/2024). Discussed the above with the patient using shared decision making. The patient is in agreement with the diagnostic and treatment plans. Jenae Santamaria MD 04/07/2024 9:56 AM Signed - cancer doctor, stomach doctor and urologist will need to schedule appointments for Allergies As of Date: 04/07/2024 Noted Allergy Reaction LIPITOR (ATORVASTATIN) 11/17/2013 14 - Other: See Comments Comments: body aches Date Reviewed: 04/07/2024 Reviewed by: Jenae Santamaria MD - Fully Assessed Reason for Visit: 4 month follow up [Other] Primary Visit Diagnosis:Type 2 diabetes mellitus with other circulatory complication, with long-term current use of insulin ([facility]) [E11.59, Z79.4] Other Visit Diagnoses:Unspecified hypothyroidism [E03.9] Abdominal aortic aneurysm (AAA) without rupture, unspecified part ([facility]) [I71.40] 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] PAD (peripheral artery disease) ([facility]) [I73.9] Chronic obstructive pulmonary disease, unspecified COPD type ([facility]) [J44.9] JANELL (obstructive sleep apnea) [G47.33] Rectal cancer ([facility]) [C20] Encounter for immunization [Z23] Vitamin D deficiency [E55.9] Eosinophilic esophagitis [K20.0] History of DVT (deep vein thrombosis) [Z86.718] Order(s):TSH W/REFLEX FT4 [SQTSHRF] Order #: [id number] FUTURE HEMOGLOBIN A1C [YWGUW7P] Order #: [id number] FUTURE CONSULT TO VASCULAR SURGERY [9042] Order #: [id number]: 1 FUTURE COMPREHENSIVE METABOLIC PANEL [SQCMP] Order #: [id number] FUTURE COMPLETE BLOOD COUNT AND DIFFERENTIAL [SQCBCDIF] Order #: [id number] FUTURE LIPID PANEL BASIC [SQLIPB] Order #: [id number] FUTURE POLYSOMNOGRAM (PSG) [8458420] Order #: [id number] FUTURE CONSULT TO PULMONARY MEDICINE [4250518] Order #: [id number]: 1 levothyroxine (SYNTHROID) 100 mcg tabletTake 1 tablet by mouth daily before breakfast.Disp: 90 tabletRfl: 1 [employer] COVID-19 VACCINE AGE 12+ YR ([facility]) [74569PIN] Order #: [id number] VITAMIN D 25 HYDROXY [SQVITD] Order #: [id number] FUTURE pantoprazole DR (PROTONIX) 40 mg tabletTake 1 tablet by mouth two times a day.Disp: 180 tabletRfl: 0 ELIQUIS 5 mg tab(s)Take 1 tablet by mouth two times a day.Disp: 180 tabletRfl: 2 finasteride (PROSCAR) 5 mg tabletTake 1 tablet by mouth once daily.Disp: 90 tabletRfl: 1 issjtqaebhf-vtpweixiq-fihodhwl (TRELEGY ELLIPTA) 100-62.5-25 mcg inhalation powderInhale 1 Puff as instructed once daily.Disp: 60 EachRfl: 5 rosuvastatin (CRESTOR) 20 mg tabletTake 1 tablet by mouth daily at bedtime.Disp: 90 tabletRfl: 2 Prescriptions as of 04/07/2024 - levothyroxine (SYNTHROID) 100 mcg tablet Take 1 tablet by mouth daily before breakfast. - pantoprazole DR (PROTONIX) 40 mg tablet Take 1 tablet by mouth two times a day. - ELIQUIS 5 mg tab(s) Take 1 tablet by mouth two times a day. - finasteride (PROSCAR) 5 mg tablet Take 1 tablet by mouth once daily. - vuzxopydxxd-aacnwfjmz-gweigoeb (TRELEGY ELLIPTA) 100-62.5-25 mcg inhalation powder Inhale 1 Puff as instructed once daily. - rosuvastatin (CRESTOR) 20 mg tablet Take 1 tablet by mouth daily at bedtime. - amLODIPine (NORVASC) 5 mg tablet Take 1 tablet by mouth once daily. - aspirin, enteric coated (ASPIRIN, ENTERIC COATED) 81 mg EC tablet Take 1 tablet by mouth once daily. - albuterol HFA (PROVENTIL HFA) 90 mcg/actuation inhaler Inhale 1-2 Puffs as instructed four times a day as needed for wheezing/shortness of breath. - fluticasone (FLONASE) 50 mcg/actuation nasal spray SPRAY 1 SPRAY INTO EACH NOSTRIL AT BEDTIME - loratadine (CLARITIN) 10 mg tablet Take 1 tablet by mouth once daily. - FERROUS SULFATE, BULK, [facility] - Blood Pressure Test Kit-Large ([employer] BP MONITOR) 1 Each two times a day. - ergocalciferol 50,000 unit capsule (VITAMIN D2, DRISDOL) Take 1 capsule by mouth one time a week. - flash glucose sensor (FREESTYLE HEMA 14 DAY SENSOR) kit 1 Each four times daily. - Fenofibrate 160 mg tablet Take 1 tablet by mouth once daily. 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*11/21/2013 02/08/2020 Atherosclerosis of [place] artery of extremity w*11/21/2013 Other hyperlipidemia [E78.49] Unspecified hypothyroidism [E03.9] Smoker [F17.200] 01/27/2015 Chronic ischemic right MCA stroke [Z86.73] 02/08/2020 CAD (coronary artery disease), [place] coronary *12/27/2013 Postprocedural hypotension [I95.81] 12/27/2013 09/25/2020 Stress hyperglycemia [R73.9] 12/27/2013 01/27/2015 Hypoxia [R09.02] 12/27/2013 12/28/2013 Acute blood loss anemia [D62] 12/30/2013 01/27/2015 Acute post-operative pain [G89.18] 01/03/2014 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] 01/03/2020 Embolic stroke involving right carotid artery (*02/08/2020 Symptomatic carotid artery stenosis [I65.29] 02/13/2020 BPH (benign prostatic hyperplasia) [N40.0] CKD (chronic kidney disease) stage 3, GFR 30-59* 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* Hemorrhoids [K64.9] Psoriasis [L40.9] Former smoker [Z87.891] AAA (abdominal aortic aneurysm) without rupture* 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 History of right-sided carotid endarterectomy [*03/13/2020 History of CVA (cerebrovascular accident) [Z86.*09/12/2020 Carotid artery disease (HCC) [I77.9] 09/12/2020 09/24/2020 Rectal cancer (HCC) [C20] 09/23/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HCC) [Z93.3] 09/23/2020 Acute postoperative respiratory insufficiency [*09/23/2020 10/18/2020 Metabolic acidosis [E87.20] 09/23/2020 09/24/2020 Electrolyte abnormality [E87.8] 09/23/2020 Hypoalbuminemia [E88.09] 09/24/2020 09/30/2020 Obesity, Class I, BMI 30-34.9 [E66.811] 09/26/2020 Essential (primary) hypertension [I10] 09/27/2020 Delirium [R41.0] 09/30/2020 10/18/2020 Idiopathic hypotension [I95.0] 09/30/2020 10/18/2020 Abnormal urinalysis [R82.90] 10/02/2020 Moderate protein-calorie malnutrition (HCC) [E4*10/03/2020 Postoperative ileus (HCC) [K91.89, K56.7] 10/04/2020 10/18/2020 On total parenteral nutrition (TPN) [Z78.9] 10/08/2020 10/13/2020 Peripherally inserted central catheter (PICC) i*10/08/2020 10/18/2020 Postoperative urinary retention [N99.89, R33.8] 10/08/2020 Hyponatremia [E87.1] 10/08/2020 10/18/2020 Urinary tract infection associated with [facility]*10/13/2020 Other instructions from your clinician: - cancer doctor, stomach doctor and urologist will need to schedule appointments for Prescriptions ordered this encounter Disp Refills Start End LEVOTHYROXINE 100 MCG TABLET 90 t* 1 04/07/2024 Route: ORAL Sig: Take 1 tablet by mouth daily before breakfast. PANTOPRAZOLE 40 MG TABLET,DELAYED RE* 180 * 0 04/07/2024 Route: ORAL Sig: Take 1 tablet by mouth two times a day. ELIQUIS 5 MG TABLET 180 * 2 04/07/2024 Route: ORAL Sig: Take 1 tablet by mouth two times a day. FINASTERIDE 5 MG TABLET 90 t* 1 04/07/2024 Route: ORAL Sig: Take 1 tablet by mouth once daily. TRELEGY ELLIPTA 100 MCG-62.5 MCG-25 * 60 E* 5 04/07/2024 Route: INHALATION Sig: Inhale 1 Puff as instructed once daily. ROSUVASTATIN 20 MG TABLET 90 t* 2 04/07/2024 Route: ORAL Sig: Take 1 tablet by mouth daily at bedtime. Medications Discontinued During This Encounter Prescriptions - levothyroxine (SYNTHROID) 200 mcg tablet (Discontinued) Take 1 tablet by mouth daily before breakfast. - ELIQUIS 5 mg tab(s) (Discontinued) Take 1 tablet by mouth two times a day. - finasteride (PROSCAR) 5 mg tablet (Discontinued) Take 1 tablet by mouth once daily. - vbkmcfookjd-ngsassymq-bqulqkrm (TRELEGY ELLIPTA) 100-62.5-25 mcg inhalation powder (Discontinued) Inhale 1 Puff as instructed once daily. - rosuvastatin (CRESTOR) 20 mg tablet (Discontinued) Take 1 tablet by mouth daily at bedtime. Level of Service: OFFICE/OUTPATIENT ESTABLISHED MOD [facility] 30 MIN [28728] Additional E/M codes: VISIT CPLX INHERENT EANDM ASSOC WITH MED * Disposition: Return in about 3 months (around 07/06/2024). Follow-up and Disposition History for Encounter Date Provider Department Center 04/07/2024 [id number] SANTAMARIA [address] Encounter Status:Closed by EJNAE SANTAMARIA on 04/07/24 JOSE DAVID Observed: 04/07/2024 12:00 AM Status: COMPLETED Source: [facility] Telephone ([employer]) EMELIA JOHNSON ([id number]) 1950 M Date Time Provider Department 04/07/24 JENAE SANTAMARIA During your visit today, we recorded the following information about you: Rosalina López 2024 10:57 AM Addendum Referral in portal, confirmation # [id number] Rosalina López April 07, 2024 RAMONA 04/10/24 07:28 Patients daughter declined to schedule at this time, stating they would need to look into scheduling and if they can find any where in [place] Rosalina López 2024 Allergies As of Date: 04/07/2024 Noted Allergy Reaction LIPITOR (ATORVASTATIN) 11/17/2013 14 - Other: See Comments Comments: body aches Date Reviewed: 04/07/2024 Reviewed by: Jenae Santamaria MD - Fully Assessed Reason for Visit: Consult [502] Cmt: Consult to Vascular Surgery Prescriptions as of 2024 - levothyroxine (SYNTHROID) 100 mcg tablet Take 1 tablet by mouth daily before breakfast. - pantoprazole DR (PROTONIX) 40 mg tablet Take 1 tablet by mouth two times a day. - ELIQUIS 5 mg tab(s) Take 1 tablet by mouth two times a day. - finasteride (PROSCAR) 5 mg tablet Take 1 tablet by mouth once daily. - wzbyrwmehoe-ezhgmicjj-thmzgykm (TRELEGY ELLIPTA) 100-62.5-25 mcg inhalation powder Inhale 1 Puff as instructed once daily. - rosuvastatin (CRESTOR) 20 mg tablet Take 1 tablet by mouth daily at bedtime. - amLODIPine (NORVASC) 5 mg tablet Take 1 tablet by mouth once daily. - aspirin, enteric coated (ASPIRIN, ENTERIC COATED) 81 mg EC tablet Take 1 tablet by mouth once daily. - albuterol HFA (PROVENTIL HFA) 90 mcg/actuation inhaler Inhale 1-2 Puffs as instructed four times a day as needed for wheezing/shortness of breath. - fluticasone (FLONASE) 50 mcg/actuation nasal spray SPRAY 1 SPRAY INTO EACH NOSTRIL AT BEDTIME - loratadine (CLARITIN) 10 mg tablet Take 1 tablet by mouth once daily. - FERROUS SULFATE, BULK, MISC - Blood Pressure Test Kit-Large (CLEVER CHOICE BP MONITOR) 1 Each two times a day. - ergocalciferol 50,000 unit capsule (VITAMIN D2, DRISDOL) Take 1 capsule by mouth one time a week. - flash glucose sensor (FREESTYLE HEMA 14 DAY SENSOR) kit 1 Each four times daily. - Fenofibrate 160 mg tablet Take 1 tablet by mouth once daily. 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*11/21/2013 02/08/2020 Atherosclerosis of [place] artery of extremity w*11/21/2013 Other hyperlipidemia [E78.49] Unspecified hypothyroidism [E03.9] Smoker [F17.200] 01/27/2015 Chronic ischemic right MCA stroke [Z86.73] 02/08/2020 CAD (coronary artery disease), [place] coronary *12/27/2013 Postprocedural hypotension [I95.81] 12/27/2013 09/25/2020 Stress hyperglycemia [R73.9] 12/27/2013 01/27/2015 Hypoxia [R09.02] 12/27/2013 12/28/2013 Acute blood loss anemia [D62] 12/30/2013 01/27/2015 Acute post-operative pain [G89.18] 01/03/2014 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] 01/03/2020 Embolic stroke involving right carotid artery (*02/08/2020 Symptomatic carotid artery stenosis [I65.29] 02/13/2020 BPH (benign prostatic hyperplasia) [N40.0] CKD (chronic kidney disease) stage 3, GFR 30-59* 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* Hemorrhoids [K64.9] Psoriasis [L40.9] Former smoker [Z87.891] AAA (abdominal aortic aneurysm) without rupture* 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 History of right-sided carotid endarterectomy [*03/13/2020 History of CVA (cerebrovascular accident) [Z86.*09/12/2020 Carotid artery disease (HCC) [I77.9] 09/12/2020 09/24/2020 Rectal cancer (HCC) [C20] 09/23/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HCC) [Z93.3] 09/23/2020 Acute postoperative respiratory insufficiency [*09/23/2020 10/18/2020 Metabolic acidosis [E87.20] 09/23/2020 09/24/2020 Electrolyte abnormality [E87.8] 09/23/2020 Hypoalbuminemia [E88.09] 09/24/2020 09/30/2020 Obesity, Class I, BMI 30-34.9 [E66.811] 09/26/2020 Essential (primary) hypertension [I10] 09/27/2020 Delirium [R41.0] 09/30/2020 10/18/2020 Idiopathic hypotension [I95.0] 09/30/2020 10/18/2020 Abnormal urinalysis [R82.90] 10/02/2020 Moderate protein-calorie malnutrition (HCC) [E4*10/03/2020 Postoperative ileus (HCC) [K91.89, K56.7] 10/04/2020 10/18/2020 On total parenteral nutrition (TPN) [Z78.9] 10/08/2020 10/13/2020 Peripherally inserted central catheter (PICC) i*10/08/2020 10/18/2020 Postoperative urinary retention [N99.89, R33.8] 10/08/2020 Hyponatremia [E87.1] 10/08/2020 10/18/2020 Urinary tract infection associated with indwell*10/13/2020 Encounter Status:Closed by ROSALINA LÓPEZ on 04/07/24 PROGRESS Observed: 03/06/2024 2:02 PM Status: COMPLETED Source: [facility] HNO ID: [id number] Author: GABRIELA GAN RN Service: ? Author Type: Registered Nurse Type: Progress Notes Filed: 03/06/2024 14:09 Note Text: AG TRANSITIONAL CARE MANAGEMENT (TCM) FOLLOW-UP NOTE Patient identified by name and date of : YES Spoke to: daughter Diagnosis: N/A Summary: TCM RN called for TCM f/u (SNF D/C 02/04/24). Pt is doing good. No confusion. No issues w/ his urine - no odor, burning or frequency. No refills needed. No needs noted. Health leads screening tool questions performed? Addressed 02/07/24 N/A Concerns: N/A Orthopedics Pediatric Physician plan for next outreach: No further follow-up needed at this time. Signature: Gabriela Gan RN March 06, 2024 CNPTOUTREACH Observed: 03/06/2024 12:00 AM Status: COMPLETED Source: [facility] Patient Outreach ([facility]) DUCEMELIA BOOKER ([id number]) 1950 M Date Time Provider Department 03/06/24 GABRIELA GAN [facility] During your visit today, we recorded the following information about you: Gabriela Gan RN 03/06/2024 2:09 PM Signed AG TRANSITIONAL CARE MANAGEMENT (TCM) FOLLOW-UP NOTE Patient identified by name and date of : YES Spoke to: daughter Diagnosis: N/A Summary: TCM RN called for TCM f/u (SNF D/C 02/04/24). Pt is doing good. No confusion. No issues w/ his urine - no odor, burning or frequency. No refills needed. No needs noted. Health leads screening tool questions performed? Addressed 02/07/24 N/A Concerns: N/A Orthopedics Pediatric Physician plan for next outreach: No further follow-up needed at this time. Signature: Gabriela Gan RN March 06, 2024 Allergies As of Date: 03/06/2024 Noted Allergy Reaction LIPITOR (ATORVASTATIN) 11/17/2013 14 - Other: See Comments Comments: body aches Date Reviewed: 12/10/2023 Reviewed by: Jenae Santamaria MD - Fully Assessed Reason for Visit: Transition Of Care [4074] Cmt: TCM f/u Prescriptions as of 03/06/2024 - amLODIPine (NORVASC) 5 mg tablet Take 1 tablet by mouth once daily. - aspirin, enteric coated (ASPIRIN, ENTERIC COATED) 81 mg EC tablet Take 1 tablet by mouth once daily. - rosuvastatin (CRESTOR) 20 mg tablet Take 1 tablet by mouth daily at bedtime. - levothyroxine (SYNTHROID) 200 mcg tablet Take 1 tablet by mouth daily before breakfast. - albuterol HFA (PROVENTIL HFA) 90 mcg/actuation inhaler Inhale 1-2 Puffs as instructed four times a day as needed for wheezing/shortness of breath. - lprragkulmg-skmkuavdg-drzvdrlj (TRELEGY ELLIPTA) 100-62.5-25 mcg inhalation powder Inhale 1 Puff as instructed once daily. - fluticasone (FLONASE) 50 mcg/actuation nasal spray SPRAY 1 SPRAY INTO EACH NOSTRIL AT BEDTIME - ELIQUIS 5 mg tab(s) Take 1 tablet by mouth two times a day. - loratadine (CLARITIN) 10 mg tablet Take 1 tablet by mouth once daily. - finasteride (PROSCAR) 5 mg tablet Take 1 tablet by mouth once daily. - FERROUS SULFATE, BULK, MISC - Blood Pressure Test Kit-Large ([employer] BP MONITOR) 1 Each two times a day. - ergocalciferol 50,000 unit capsule (VITAMIN D2, DRISDOL) Take 1 capsule by mouth one time a week. - flash glucose sensor (ChoozleSTYLE HEMA 14 DAY SENSOR) kit 1 Each four times daily. - Fenofibrate 160 mg tablet Take 1 tablet by mouth once daily. 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*11/21/2013 02/08/2020 Atherosclerosis of [place] artery of extremity w*11/21/2013 Other hyperlipidemia [E78.49] Unspecified hypothyroidism [E03.9] Smoker [F17.200] 01/27/2015 Chronic ischemic right MCA stroke [Z86.73] 02/08/2020 CAD (coronary artery disease), [place] coronary *12/27/2013 Postprocedural hypotension [I95.81] 12/27/2013 09/25/2020 Stress hyperglycemia [R73.9] 12/27/2013 01/27/2015 Hypoxia [R09.02] 12/27/2013 12/28/2013 Acute blood loss anemia [D62] 12/30/2013 01/27/2015 Acute post-operative pain [G89.18] 01/03/2014 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] 01/03/2020 Embolic stroke involving right carotid artery (*02/08/2020 Symptomatic carotid artery stenosis [I65.29] 02/13/2020 BPH (benign prostatic hyperplasia) [N40.0] CKD (chronic kidney disease) stage 3, GFR 30-59* 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* Hemorrhoids [K64.9] Psoriasis [L40.9] Former smoker [Z87.891] AAA (abdominal aortic aneurysm) without rupture* 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 History of right-sided carotid endarterectomy [*03/13/2020 History of CVA (cerebrovascular accident) [Z86.*09/12/2020 Carotid artery disease (HCC) [I77.9] 09/12/2020 09/24/2020 Rectal cancer (HCC) [C20] 09/23/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HCC) [Z93.3] 09/23/2020 Acute postoperative respiratory insufficiency [*09/23/2020 10/18/2020 Metabolic acidosis [E87.20] 09/23/2020 09/24/2020 Electrolyte abnormality [E87.8] 09/23/2020 Hypoalbuminemia [E88.09] 09/24/2020 09/30/2020 Obesity, Class I, BMI 30-34.9 [E66.811] 09/26/2020 Essential (primary) hypertension [I10] 09/27/2020 Delirium [R41.0] 09/30/2020 10/18/2020 Idiopathic hypotension [I95.0] 09/30/2020 10/18/2020 Abnormal urinalysis [R82.90] 10/02/2020 Moderate protein-calorie malnutrition (HCC) [E4*10/03/2020 Postoperative ileus (HCC) [K91.89, K56.7] 10/04/2020 10/18/2020 On total parenteral nutrition (TPN) [Z78.9] 10/08/2020 10/13/2020 Peripherally inserted central catheter (PICC) i*10/08/2020 10/18/2020 Postoperative urinary retention [N99.89, R33.8] 10/08/2020 Hyponatremia [E87.1] 10/08/2020 10/18/2020 Urinary tract infection associated with indwell*10/13/2020 Encounter Status:Closed by GABRIELA GAN on 03/06/24 PROGRESS Observed: 03/01/2024 11:31 AM Status: COMPLETED Source: [facility] HNO ID: [id number] Author: GABRIELA GAN RN Service: ? Author Type: Registered Nurse Type: Progress Notes Filed: 03/01/2024 11:48 Note Text: AG TRANSITIONAL CARE MANAGEMENT (TCM) FOLLOW-UP NOTE Patient identified by name and date of : YES Spoke to: daughter Diagnosis: N/A Summary: TCM RN called for TCM f/u (SNF D/C 02/04/24). Per pt's daughter, he is sleeping. Pt gets up. He eats. He is getting Home PT. Daughter states that he does well when Home PT is there, She states that he doesn't do the exercises when PT isn't there. No confusion noted. No urine issues noted. Pt has cath. No burning or odor. No refills needed. No needs noted. Health leads screening tool questions performed? Addressed 02/07/24 N/A Concerns: N/A Orthopedics Pediatric Physician plan for next outreach: Will follow-up next wk. Signature: Gabriela Gan RN March 01, 2024 CNPTOUTREACH Observed: 03/01/2024 12:00 AM Status: COMPLETED Source: [facility] Patient Outreach ([facility]) EMELIA JOHNSON ([id number]) 1950 M Date Time Provider Department 03/01/24 GABRIELA GAN [facility] During your visit today, we recorded the following information about you: Gabriela Gan, LAQUITA 03/01/2024 11:48 AM Signed AG TRANSITIONAL CARE MANAGEMENT (TCM) FOLLOW-UP NOTE Patient identified by name and date of : YES Spoke to: daughter Diagnosis: N/A Summary: TCM RN called for TCM f/u (SNF D/C 02/04/24). Per pt's daughter, he is sleeping. Pt gets up. He eats. He is getting Home PT. Daughter states that he does well when Home PT is there, She states that he doesn't do the exercises when PT isn't there. No confusion noted. No urine issues noted. Pt has cath. No burning or odor. No refills needed. No needs noted. Health leads screening tool questions performed? Addressed 02/07/24 N/A Concerns: N/A Orthopedics Pediatric Physician plan for next outreach: Will follow-up next wk. Signature: Gabriela Gan RN March 01, 2024 Allergies As of Date: 03/01/2024 Noted Allergy Reaction LIPITOR (ATORVASTATIN) 11/17/2013 14 - Other: See Comments Comments: body aches Date Reviewed: 12/10/2023 Reviewed by: Jenae Santamaria MD - Fully Assessed Reason for Visit: Transition Of Care [4074] Cmt: TCM f/u Prescriptions as of 03/01/2024 - amLODIPine (NORVASC) 5 mg tablet Take 1 tablet by mouth once daily. - aspirin, enteric coated (ASPIRIN, ENTERIC COATED) 81 mg EC tablet Take 1 tablet by mouth once daily. - rosuvastatin (CRESTOR) 20 mg tablet Take 1 tablet by mouth daily at bedtime. - levothyroxine (SYNTHROID) 200 mcg tablet Take 1 tablet by mouth daily before breakfast. - albuterol HFA (PROVENTIL HFA) 90 mcg/actuation inhaler Inhale 1-2 Puffs as instructed four times a day as needed for wheezing/shortness of breath. - juffmwkysqv-roqfcyjdp-cegagsdd (TRELEGY ELLIPTA) 100-62.5-25 mcg inhalation powder Inhale 1 Puff as instructed once daily. - fluticasone (FLONASE) 50 mcg/actuation nasal spray SPRAY 1 SPRAY INTO EACH NOSTRIL AT BEDTIME - ELIQUIS 5 mg tab(s) Take 1 tablet by mouth two times a day. - loratadine (CLARITIN) 10 mg tablet Take 1 tablet by mouth once daily. - finasteride (PROSCAR) 5 mg tablet Take 1 tablet by mouth once daily. - FERROUS SULFATE, BULK, MISC - Blood Pressure Test Kit-Large (CLEVER CHOICE BP MONITOR) 1 Each two times a day. - ergocalciferol 50,000 unit capsule (VITAMIN D2, DRISDOL) Take 1 capsule by mouth one time a week. - flash glucose sensor (ChoozleSTYLE HEMA 14 DAY SENSOR) kit 1 Each four times daily. - Fenofibrate 160 mg tablet Take 1 tablet by mouth once daily. 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/2013 02/08/2020 Atherosclerosis of [place] artery of extremity w*11/21/2013 Other hyperlipidemia [E78.49] Unspecified hypothyroidism [E03.9] Smoker [F17.200] 01/27/2015 Chronic ischemic right MCA stroke [Z86.73] 02/08/2020 CAD (coronary artery disease), [place] coronary *12/27/2013 Postprocedural hypotension [I95.81] 12/27/2013 09/25/2020 Stress hyperglycemia [R73.9] 12/27/2013 01/27/2015 Hypoxia [R09.02] 12/27/2013 12/28/2013 Acute blood loss anemia [D62] 12/30/2013 01/27/2015 Acute post-operative pain [G89.18] 01/03/2014 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] 01/03/2020 Embolic stroke involving right carotid artery (*02/08/2020 Symptomatic carotid artery stenosis [I65.29] 02/13/2020 BPH (benign prostatic hyperplasia) [N40.0] CKD (chronic kidney disease) stage 3, GFR 30-59* 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* Hemorrhoids [K64.9] Psoriasis [L40.9] Former smoker [Z87.891] AAA (abdominal aortic aneurysm) without rupture* 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 History of right-sided carotid endarterectomy [*03/13/2020 History of CVA (cerebrovascular accident) [Z86.*09/12/2020 Carotid artery disease (HCC) [I77.9] 09/12/2020 09/24/2020 Rectal cancer (HCC) [C20] 09/23/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HCC) [Z93.3] 09/23/2020 Acute postoperative respiratory insufficiency [*09/23/2020 10/18/2020 Metabolic acidosis [E87.20] 09/23/2020 09/24/2020 Electrolyte abnormality [E87.8] 09/23/2020 Hypoalbuminemia [E88.09] 09/24/2020 09/30/2020 Obesity, Class I, BMI 30-34.9 [E66.811] 09/26/2020 Essential (primary) hypertension [I10] 09/27/2020 Delirium [R41.0] 09/30/2020 10/18/2020 Idiopathic hypotension [I95.0] 09/30/2020 10/18/2020 Abnormal urinalysis [R82.90] 10/02/2020 Moderate protein-calorie malnutrition (HCC) [E4*10/03/2020 Postoperative ileus (HCC) [K91.89, K56.7] 10/04/2020 10/18/2020 On total parenteral nutrition (TPN) [Z78.9] 10/08/2020 10/13/2020 Peripherally inserted central catheter (PICC) i*10/08/2020 10/18/2020 Postoperative urinary retention [N99.89, R33.8] 10/08/2020 Hyponatremia [E87.1] 10/08/2020 10/18/2020 Urinary tract infection associated with indwell*10/13/2020 Encounter Status:Closed by GABRIELA GAN on 03/01/24 JOSE DAVID Observed: 03/01/2024 12:00 AM Status: COMPLETED Source: [facility] Telephone ([employer]) EMELIA JOHNSON ([id number]) 1950 M Date Time Provider Department 03/01/24 JENAE SANTAMARIA During your visit today, we recorded the following information about you: Jojo Garrido MA 03/01/2024 1:21 PM Signed Logan from physical therapy attendant from in longterm care called (no call back number given) to report patients has been having some elevated blood pressure readings of 157/101 heart rate of 87 and second reading the same day of 160/96 heart rate 85 Please advise Jenae Santamaria MD 03/01/2024 2:07 PM Signed Not sure if readings are done close to when patient had just completed PT. Please call patient to update that we are told that BP's have been elevated and have patient monitor and reach out to office in next couple of days with readings so we can determine need for adjusting BP regimen MD Hema Jensen Amanda, MA 03/01/2024 3:17 PM Signed Spoke to pt , will keep log and send it in through my chart Allergies As of Date: 03/01/2024 Noted Allergy Reaction LIPITOR (ATORVASTATIN) 11/17/2013 14 - Other: See Comments Comments: body aches Date Reviewed: 12/10/2023 Reviewed by: Jenae Santamaria MD - Fully Assessed Reason for Visit: Patient Update [1234] Prescriptions as of 03/01/2024 - amLODIPine (NORVASC) 5 mg tablet Take 1 tablet by mouth once daily. - aspirin, enteric coated (ASPIRIN, ENTERIC COATED) 81 mg EC tablet Take 1 tablet by mouth once daily. - rosuvastatin (CRESTOR) 20 mg tablet Take 1 tablet by mouth daily at bedtime. - levothyroxine (SYNTHROID) 200 mcg tablet Take 1 tablet by mouth daily before breakfast. - albuterol HFA (PROVENTIL HFA) 90 mcg/actuation inhaler Inhale 1-2 Puffs as instructed four times a day as needed for wheezing/shortness of breath. - kfptrsitnwa-tdwajlicl-ynjvinkp (TRELEGY ELLIPTA) 100-62.5-25 mcg inhalation powder Inhale 1 Puff as instructed once daily. - fluticasone (FLONASE) 50 mcg/actuation nasal spray SPRAY 1 SPRAY INTO EACH NOSTRIL AT BEDTIME - ELIQUIS 5 mg tab(s) Take 1 tablet by mouth two times a day. - loratadine (CLARITIN) 10 mg tablet Take 1 tablet by mouth once daily. - finasteride (PROSCAR) 5 mg tablet Take 1 tablet by mouth once daily. - FERROUS SULFATE, BULK, MISC - Blood Pressure Test Kit-Large ([employer]VER CHOICE BP MONITOR) 1 Each two times a day. - ergocalciferol 50,000 unit capsule (VITAMIN D2, DRISDOL) Take 1 capsule by mouth one time a week. - flash glucose sensor (FREESTYLE HEMA 14 DAY SENSOR) kit 1 Each four times daily. - Fenofibrate 160 mg tablet Take 1 tablet by mouth once daily. 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/2013 02/08/2020 Atherosclerosis of [place] artery of extremity w*11/21/2013 Other hyperlipidemia [E78.49] Unspecified hypothyroidism [E03.9] Smoker [F17.200] 01/27/2015 Chronic ischemic right MCA stroke [Z86.73] 02/08/2020 CAD (coronary artery disease), [place] coronary *12/27/2013 Postprocedural hypotension [I95.81] 12/27/2013 09/25/2020 Stress hyperglycemia [R73.9] 12/27/2013 01/27/2015 Hypoxia [R09.02] 12/27/2013 12/28/2013 Acute blood loss anemia [D62] 12/30/2013 01/27/2015 Acute post-operative pain [G89.18] 01/03/2014 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] 01/03/2020 Embolic stroke involving right carotid artery (*02/08/2020 Symptomatic carotid artery stenosis [I65.29] 02/13/2020 BPH (benign prostatic hyperplasia) [N40.0] CKD (chronic kidney disease) stage 3, GFR 30-59* 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* Hemorrhoids [K64.9] Psoriasis [L40.9] Former smoker [Z87.891] AAA (abdominal aortic aneurysm) without rupture* 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 History of right-sided carotid endarterectomy [*03/13/2020 History of CVA (cerebrovascular accident) [Z86.*09/12/2020 Carotid artery disease (HCC) [I77.9] 09/12/2020 09/24/2020 Rectal cancer (HCC) [C20] 09/23/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HCC) [Z93.3] 09/23/2020 Acute postoperative respiratory insufficiency [*09/23/2020 10/18/2020 Metabolic acidosis [E87.20] 09/23/2020 09/24/2020 Electrolyte abnormality [E87.8] 09/23/2020 Hypoalbuminemia [E88.09] 09/24/2020 09/30/2020 Obesity, Class I, BMI 30-34.9 [E66.811] 09/26/2020 Essential (primary) hypertension [I10] 09/27/2020 Delirium [R41.0] 09/30/2020 10/18/2020 Idiopathic hypotension [I95.0] 09/30/2020 10/18/2020 Abnormal urinalysis [R82.90] 10/02/2020 Moderate protein-calorie malnutrition (HCC) [E4*10/03/2020 Postoperative ileus (HCC) [K91.89, K56.7] 10/04/2020 10/18/2020 On total parenteral nutrition (TPN) [Z78.9] 10/08/2020 10/13/2020 Peripherally inserted central catheter (PICC) i*10/08/2020 10/18/2020 Postoperative urinary retention [N99.89, R33.8] 10/08/2020 Hyponatremia [E87.1] 10/08/2020 10/18/2020 Urinary tract infection associated with indwell*10/13/2020 Encounter Status:Closed by JENAE SANTAMARIA on 03/01/24 JOSE DAVID Observed: 02/17/2024 12:00 AM Status: COMPLETED Source: [facility] Telephone ([employer]) EMELIA JOHNSON ([id number]) 1950 [place] Date Time Provider Department 02/17/24 JEN LEWIS During your visit today, we recorded the following information about you: Shilrey Lyons 02/17/2024 11:59 AM Signed Received an outside vascular surgery consult from [facility]. Scanned into patient chart. Called patient to schedule and spoke to patient's daughter and she stated they did not know they were being referred somewhere else and would call [facility] to find out why. Patient is not scheduled at this time. Allergies As of Date: 02/17/2024 Noted Allergy Reaction LIPITOR (ATORVASTATIN) 11/17/2013 14 - Other: See Comments Comments: body aches Date Reviewed: 12/10/2023 Reviewed by: Jenae Santamaria MD - Fully Assessed Prescriptions as of 02/17/2024 - amLODIPine (NORVASC) 5 mg tablet Take 1 tablet by mouth once daily. - aspirin, enteric coated (ASPIRIN, ENTERIC COATED) 81 mg EC tablet Take 1 tablet by mouth once daily. - rosuvastatin (CRESTOR) 20 mg tablet Take 1 tablet by mouth daily at bedtime. - levothyroxine (SYNTHROID) 200 mcg tablet Take 1 tablet by mouth daily before breakfast. - albuterol HFA (PROVENTIL HFA) 90 mcg/actuation inhaler Inhale 1-2 Puffs as instructed four times a day as needed for wheezing/shortness of breath. - ypthioijcua-qboljmpuy-mguphnuw (TRELEGY ELLIPTA) 100-62.5-25 mcg inhalation powder Inhale 1 Puff as instructed once daily. - fluticasone (FLONASE) 50 mcg/actuation nasal spray SPRAY 1 SPRAY INTO EACH NOSTRIL AT BEDTIME - ELIQUIS 5 mg tab(s) Take 1 tablet by mouth two times a day. - loratadine (CLARITIN) 10 mg tablet Take 1 tablet by mouth once daily. - finasteride (PROSCAR) 5 mg tablet Take 1 tablet by mouth once daily. - FERROUS SULFATE, BULK, MISC - Blood Pressure Test Kit-Large (CLEVER CHOICE BP MONITOR) 1 Each two times a day. - ergocalciferol 50,000 unit capsule (VITAMIN D2, DRISDOL) Take 1 capsule by mouth one time a week. - flash glucose sensor (FREESTYLE HEMA 14 DAY SENSOR) kit 1 Each four times daily. - Fenofibrate 160 mg tablet Take 1 tablet by mouth once daily. 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/2013 02/08/2020 Atherosclerosis of [place] artery of extremity w*11/21/2013 Other hyperlipidemia [E78.49] Unspecified hypothyroidism [E03.9] Smoker [F17.200] 01/27/2015 Chronic ischemic right MCA stroke [Z86.73] 02/08/2020 CAD (coronary artery disease), [place] coronary *12/27/2013 Postprocedural hypotension [I95.81] 12/27/2013 09/25/2020 Stress hyperglycemia [R73.9] 12/27/2013 01/27/2015 Hypoxia [R09.02] 12/27/2013 12/28/2013 Acute blood loss anemia [D62] 12/30/2013 01/27/2015 Acute post-operative pain [G89.18] 01/03/2014 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] 01/03/2020 Embolic stroke involving right carotid artery (*02/08/2020 Symptomatic carotid artery stenosis [I65.29] 02/13/2020 BPH (benign prostatic hyperplasia) [N40.0] CKD (chronic kidney disease) stage 3, GFR 30-59* 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* Hemorrhoids [K64.9] Psoriasis [L40.9] Former smoker [Z87.891] AAA (abdominal aortic aneurysm) without rupture* 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 History of right-sided carotid endarterectomy [*03/13/2020 History of CVA (cerebrovascular accident) [Z86.*09/12/2020 Carotid artery disease (HCC) [I77.9] 09/12/2020 09/24/2020 Rectal cancer (HCC) [C20] 09/23/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HCC) [Z93.3] 09/23/2020 Acute postoperative respiratory insufficiency [*09/23/2020 10/18/2020 Metabolic acidosis [E87.20] 09/23/2020 09/24/2020 Electrolyte abnormality [E87.8] 09/23/2020 Hypoalbuminemia [E88.09] 09/24/2020 09/30/2020 Obesity, Class I, BMI 30-34.9 [E66.811] 09/26/2020 Essential (primary) hypertension [I10] 09/27/2020 Delirium [R41.0] 09/30/2020 10/18/2020 Idiopathic hypotension [I95.0] 09/30/2020 10/18/2020 Abnormal urinalysis [R82.90] 10/02/2020 Moderate protein-calorie malnutrition (HCC) [E4*10/03/2020 Postoperative ileus (HCC) [K91.89, K56.7] 10/04/2020 10/18/2020 On total parenteral nutrition (TPN) [Z78.9] 10/08/2020 10/13/2020 Peripherally inserted central catheter (PICC) i*10/08/2020 10/18/2020 Postoperative urinary retention [N99.89, R33.8] 10/08/2020 Hyponatremia [E87.1] 10/08/2020 10/18/2020 Urinary tract infection associated with indwell*10/13/2020 Encounter Status:Closed by SHIRLEY LYONS on 02/17/24 PROGRESS Observed: 02/15/2024 12:01 PM Status: COMPLETED Source: [facility] HNO ID: [id number] Author: GABRIELA GAN RN Service: ? Author Type: Registered Nurse Type: Progress Notes Filed: 02/15/2024 12:13 Note Text: AG TRANSITIONAL CARE MANAGEMENT (TCM) FOLLOW-UP NOTE Patient identified by name and date of : YES Spoke to: daughter Diagnosis: N/A Summary: TCM RN called for TCM f/u (SNF D/C 02/04/24). Pt is recovering quite well. He is getting stronger. No confusion noted. No s/s of a urine infection - no odor, burning or frequency. Pt is still active w/ HC. His daughter states that pt is set up w/ everything. Discussed pt's TCM appointment that was canceled on 02/14/24. Per daughter, she couldn't get him there that day. She declined to re-schedule. States that pt has an appointment w/ his PCP in March. Pt is scheduled to see his PCP on 04/07/23 at 9:2pa. No refills needed. No needs noted. Health leads screening tool questions performed? Addressed 02/07/24 N/A Concerns: N/A Orthopedics Pediatric Physician plan for next outreach: Will follow-up next wk. Signature: Gabriela Gan RN February 15, 2024 ANDREZ Observed: 02/15/2024 12:00 AM Status: COMPLETED Source: [facility] EMELIA JOHNSON ([id number]) 1950 M Date Time Provider Department 02/15/24 GABRIELA GAN [facility] During your visit today, we recorded the following information about you: Gabriela Gan RN 02/15/2024 12:13 PM Signed AG TRANSITIONAL CARE MANAGEMENT (TCM) FOLLOW-UP NOTE Patient identified by name and date of : YES Spoke to: daughter Diagnosis: N/A Summary: TCM RN called for TCM f/u (SNF D/C 02/04/24). Pt is recovering quite well. He is getting stronger. No confusion noted. No s/s of a urine infection - no odor, burning or frequency. Pt is still active w/ HC. His daughter states that pt is set up w/ everything. Discussed pt's TCM appointment that was canceled on 02/14/24. Per daughter, she couldn't get him there that day. She declined to re-schedule. States that pt has an appointment w/ his PCP in March. Pt is scheduled to see his PCP on 04/07/23 at 9:2pa. No refills needed. No needs noted. Health leads screening tool questions performed? Addressed 02/07/24 N/A Concerns: N/A Orthopedics Pediatric Physician plan for next outreach: Will follow-up next wk. Signature: Gabriela Gan RN February 15, 2024 Allergies As of Date: 02/15/2024 Noted Allergy Reaction LIPITOR (ATORVASTATIN) 11/17/2013 14 - Other: See Comments Comments: body aches Date Reviewed: 12/10/2023 Reviewed by: Jenae Santamaria MD - Fully Assessed Reason for Visit: Transition Of Care [4074] Cmt: [facility] f/u Prescriptions as of 02/15/2024 - amLODIPine (NORVASC) 5 mg tablet Take 1 tablet by mouth once daily. - aspirin, enteric coated (ASPIRIN, ENTERIC COATED) 81 mg EC tablet Take 1 tablet by mouth once daily. - rosuvastatin (CRESTOR) 20 mg tablet Take 1 tablet by mouth daily at bedtime. - levothyroxine (SYNTHROID) 200 mcg tablet Take 1 tablet by mouth daily before breakfast. - albuterol HFA (PROVENTIL HFA) 90 mcg/actuation inhaler Inhale 1-2 Puffs as instructed four times a day as needed for wheezing/shortness of breath. - gajqsohibtx-gdlconyzh-aznrhfhm (TRELEGY ELLIPTA) 100-62.5-25 mcg inhalation powder Inhale 1 Puff as instructed once daily. - fluticasone (FLONASE) 50 mcg/actuation nasal spray SPRAY 1 SPRAY INTO EACH NOSTRIL AT BEDTIME - ELIQUIS 5 mg tab(s) Take 1 tablet by mouth two times a day. - loratadine (CLARITIN) 10 mg tablet Take 1 tablet by mouth once daily. - finasteride (PROSCAR) 5 mg tablet Take 1 tablet by mouth once daily. - FERROUS SULFATE, BULK, MISC - Blood Pressure Test Kit-Large (CLEVER CHOICE BP MONITOR) 1 Each two times a day. - ergocalciferol 50,000 unit capsule (VITAMIN D2, DRISDOL) Take 1 capsule by mouth one time a week. - flash glucose sensor (FREESTYLE HEMA 14 DAY SENSOR) kit 1 Each four times daily. - Fenofibrate 160 mg tablet Take 1 tablet by mouth once daily. 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/2013 02/08/2020 Atherosclerosis of [place] artery of extremity w*11/21/2013 Other hyperlipidemia [E78.49] Unspecified hypothyroidism [E03.9] Smoker [F17.200] 01/27/2015 Chronic ischemic right MCA stroke [Z86.73] 02/08/2020 CAD (coronary artery disease), [place] coronary *12/27/2013 Postprocedural hypotension [I95.81] 12/27/2013 09/25/2020 Stress hyperglycemia [R73.9] 12/27/2013 01/27/2015 Hypoxia [R09.02] 12/27/2013 12/28/2013 Acute blood loss anemia [D62] 12/30/2013 01/27/2015 Acute post-operative pain [G89.18] 01/03/2014 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] 01/03/2020 Embolic stroke involving right carotid artery (*02/08/2020 Symptomatic carotid artery stenosis [I65.29] 02/13/2020 BPH (benign prostatic hyperplasia) [N40.0] CKD (chronic kidney disease) stage 3, GFR 30-59* 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* Hemorrhoids [K64.9] Psoriasis [L40.9] Former smoker [Z87.891] AAA (abdominal aortic aneurysm) without rupture* 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 History of right-sided carotid endarterectomy [*03/13/2020 History of CVA (cerebrovascular accident) [Z86.*09/12/2020 Carotid artery disease (HCC) [I77.9] 09/12/2020 09/24/2020 Rectal cancer (HCC) [C20] 09/23/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HCC) [Z93.3] 09/23/2020 Acute postoperative respiratory insufficiency [*09/23/2020 10/18/2020 Metabolic acidosis [E87.20] 09/23/2020 09/24/2020 Electrolyte abnormality [E87.8] 09/23/2020 Hypoalbuminemia [E88.09] 09/24/2020 09/30/2020 Obesity, Class I, BMI 30-34.9 [E66.811] 09/26/2020 Essential (primary) hypertension [I10] 09/27/2020 Delirium [R41.0] 09/30/2020 10/18/2020 Idiopathic hypotension [I95.0] 09/30/2020 10/18/2020 Abnormal urinalysis [R82.90] 10/02/2020 Moderate protein-calorie malnutrition (HCC) [E4*10/03/2020 Postoperative ileus (HCC) [K91.89, K56.7] 10/04/2020 10/18/2020 On total parenteral nutrition (TPN) [Z78.9] 10/08/2020 10/13/2020 Peripherally inserted central catheter (PICC) i*10/08/2020 10/18/2020 Postoperative urinary retention [N99.89, R33.8] 10/08/2020 Hyponatremia [E87.1] 10/08/2020 10/18/2020 Urinary tract infection associated with indwell*10/13/2020 Encounter Status:Closed by GABRIELA GAN on 02/15/24 PROGRESS Observed: 02/07/2024 9:35 AM Status: COMPLETED Source: [facility] HNO ID: [id number] Author: GABRIELA GAN RN Service: ? Author Type: Registered Nurse Type: Progress Notes Filed: 02/07/2024 10:01 Note Text: TRANSITIONAL CARE MANAGEMENT (TCM) COMMUNITY MONITORING PROGRAM [facility] SUMMARY: Pt discharged from [facility] on 02/04/24. Pt discharged from [facility] on 02/13/14. Admitted for: AMS UTI Patient seen Inpatient MOOSE Visit? N/A. Patient seen ICARE Program? N/A. Contact made with patient: Yes Hi my name is Gabriela Gan RN and I am calling from the [facility] on behalf of your PCP, Jenae Santamaria MD I understand you were recently in the hospital so I am calling to check in with you to ensure you are feeling well now that you?re home. Do you mind if I ask you a few questions related to your hospital stay and well-being Yes Contact with patient post discharge, spoke to daughter. Patient identified by name and . Do you feel your health is BETTER, WORSE, or the SAME since leaving the hospital? Better Pt is sleeping for not. Per his daughter, he is doing good. She states that a Home SN will be out today. Pt will be receiving HC from [facility]. No UTI symptoms noted - no burning, frequency or odor. No confusion. He is a little stronger since being in rehab. ACTION TAKEN: Patient indicated symptoms are better or same, no action required. Continue outreach. N/A MEDICATIONS: Many patients have questions or concerns about their medications once they are home. Do you have any questions about taking your medications or which medication you should be on? No Do you need any medication refills at this time, including any of the medications you might take only when needed? No ACTION TAKEN: No action required For RNs or Pharmacy completing outreach ONLY, was a medication review completed? Yes Daughter states that the rehab didn't send pt home on any new meds. Current/Discharged Medications reviewed: Yes Medication List Medication Directions Comments albuterol HFA (PROVENTIL HFA) 90 mcg/actuation inhaler Inhale 1-2 Puffs as instructed four times a day as needed for wheezing/shortness of breath. Verified amLODIPine (NORVASC) 5 mg tablet Take 1 tablet by mouth once daily. Verified aspirin, enteric coated (ASPIRIN, ENTERIC COATED) 81 mg EC tablet Take 1 tablet by mouth once daily. Verified ELIQUIS 5 mg tab(s) Take 1 tablet by mouth two times a day. Verified ergocalciferol 50,000 unit capsule (VITAMIN D2, DRISDOL) Take 1 capsule by mouth one time a week. Verified Fenofibrate 160 mg tablet Take 1 tablet by mouth once daily. Verified FERROUS SULFATE, BULK, MISC None Entered Verified Takes daily finasteride (PROSCAR) 5 mg tablet Take 1 tablet by mouth once daily. Verified fluticasone (FLONASE) 50 mcg/actuation nasal spray SPRAY 1 SPRAY INTO EACH NOSTRIL AT BEDTIME Verified quwhcrtrecc-nyndslfll-nwqfacqx (TRELEGY ELLIPTA) 100-62.5-25 mcg inhalation powder Inhale 1 Puff as instructed once daily. Verified levothyroxine (SYNTHROID) 200 mcg tablet Take 1 tablet by mouth daily before breakfast. Verified loratadine (CLARITIN) 10 mg tablet Take 1 tablet by mouth once daily. Verified rosuvastatin (CRESTOR) 20 mg tablet Take 1 tablet by mouth daily at bedtime. Verified SOCIAL: We would like to make sure you have what you need so that your basics needs are met - including your personal safety. HEALTH LEADS SCREENING TOOL QUESTIONS: Do you often feel you lack companionship? No Do you ever need help reading or understanding hospital materials? No Pt has issues sometimes. His family helps him. In the last 12 months, have you changed how you take medications to save money? No In the past 12 months, has lack of transportation kept you from medical appointments, work or getting things you need like food, or supplies? No In the last 12 months, did you ever eat less than you felt you should because there wasn't enough money for food? No During the winter, do you anticipate having a problem paying your heating bill? No In the next 2 months, are you worried you might not have stable housing? No Would you like to speak with a social work project manager/team coach to help give you support for any of these needs? No It can be normal to feel anxious or down during a time like this. Would you like to talk to a mental health professional about how you have been feeling? No ACTION TAKEN: No action taken DISCHARGE INTRUCTIONS: Your discharge instructions / After Visit Summary (AVS) are important in guiding you through the recovery process. Do you have any questions related to your discharge instructions? No Do you have all the necessary equipment and supplies at home? Yes ACTION TAKEN: No action required WRAP AROUND SERVICES: N/A Patient educated on importance of primary care provider follow up visit as well as specialty provider follow up visits as indicated. Inform the patient that if they have any questions or concerns prior to that appointment, to call their Primary Care Provider 's office right away. Primary care provider first education provided. I would like to help you schedule a hospital follow-up virtual or telephone visit with your PCP. ACTION TAKEN: [facility] Primary Care Provider Visit Scheduled: No - Already has appointment scheduled-doesn't want to change it. Pt is already scheduled for a hospital f/u appointment w/ his PCP on 02/14/24 at 10:24a. Daughter states that pt has an appointment on Wednesday for his clot. He has a scope scheduled for 02/23/24 to get stents placed in his esophagus. Gabriela Gan RN PROGRESS Observed: 02/07/2024 6:37 AM Status: COMPLETED Source: [facility] HNO ID: [id number] Author: MARIA E ROLLINS RN Service: ? Author Type: Registered Nurse Type: Progress Notes Filed: 02/07/2024 06:38 Note Text: Patient discharged from [facility] 02/04/2024 to home. Maria E Rollins RN February 07, 2024 6:38 AM CNPN Observed: 02/07/2024 12:00 AM Status: COMPLETED Source: [facility] Telephone (UROLAE) EMELIA JOHNSON ([id number]) 1950 M Date Time Provider Department 02/07/24 KEM HERNANDEZ During your visit today, we recorded the following information about you: Ricarda Bejarano 02/07/2024 2:50 PM Signed Home healthcare called asking if you could give them a standing order for urine culture for UTI symptoms. If order place needs to be faxed to [phone] Please advise. Ricarda Kim 02/09/2024 2:15 PM Signed Made Marcy aware that Dr. Hernandez did not want to place a standing order urine culture and he could see Jose for Uti's Ricarda Fried Allergies As of Date: 02/07/2024 Noted Allergy Reaction LIPITOR (ATORVASTATIN) 11/17/2013 14 - Other: See Comments Comments: body aches Date Reviewed: 12/10/2023 Reviewed by: Jenae Santamaria MD - Fully Assessed Prescriptions as of 02/09/2024 - amLODIPine (NORVASC) 5 mg tablet Take 1 tablet by mouth once daily. - aspirin, enteric coated (ASPIRIN, ENTERIC COATED) 81 mg EC tablet Take 1 tablet by mouth once daily. - rosuvastatin (CRESTOR) 20 mg tablet Take 1 tablet by mouth daily at bedtime. - levothyroxine (SYNTHROID) 200 mcg tablet Take 1 tablet by mouth daily before breakfast. - albuterol HFA (PROVENTIL HFA) 90 mcg/actuation inhaler Inhale 1-2 Puffs as instructed four times a day as needed for wheezing/shortness of breath. - nvdrzsjrhuk-fvppmocyf-iihmtxlx (TRELEGY ELLIPTA) 100-62.5-25 mcg inhalation powder Inhale 1 Puff as instructed once daily. - fluticasone (FLONASE) 50 mcg/actuation nasal spray SPRAY 1 SPRAY INTO EACH NOSTRIL AT BEDTIME - ELIQUIS 5 mg tab(s) Take 1 tablet by mouth two times a day. - loratadine (CLARITIN) 10 mg tablet Take 1 tablet by mouth once daily. - finasteride (PROSCAR) 5 mg tablet Take 1 tablet by mouth once daily. - FERROUS SULFATE, BULK, MISC - Blood Pressure Test Kit-Large ([employer] CHOICE BP MONITOR) 1 Each two times a day. - ergocalciferol 50,000 unit capsule (VITAMIN D2, DRISDOL) Take 1 capsule by mouth one time a week. - flash glucose sensor (FREESTYLE HEMA 14 DAY SENSOR) kit 1 Each four times daily. - Fenofibrate 160 mg tablet Take 1 tablet by mouth once daily. 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 02/08/2020 Atherosclerosis of [place] artery of extremity w*11/21/2013 Other hyperlipidemia [E78.49] Unspecified hypothyroidism [E03.9] Smoker [F17.200] 01/27/2015 Chronic ischemic right MCA stroke [Z86.73] 02/08/2020 CAD (coronary artery disease), [place] coronary *12/27/2013 Postprocedural hypotension [I95.81] 12/27/2013 09/25/2020 Stress hyperglycemia [R73.9] 12/27/2013 01/27/2015 Hypoxia [R09.02] 12/27/2013 12/28/2013 Acute blood loss anemia [D62] 12/30/2013 01/27/2015 Acute post-operative pain [G89.18] 01/03/2014 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] 01/03/2020 Embolic stroke involving right carotid artery (*02/08/2020 Symptomatic carotid artery stenosis [I65.29] 02/13/2020 BPH (benign prostatic hyperplasia) [N40.0] CKD (chronic kidney disease) stage 3, GFR 30-59* 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* Hemorrhoids [K64.9] Psoriasis [L40.9] Former smoker [Z87.891] AAA (abdominal aortic aneurysm) without rupture* 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 History of right-sided carotid endarterectomy [*03/13/2020 History of CVA (cerebrovascular accident) [Z86.*09/12/2020 Carotid artery disease (HCC) [I77.9] 09/12/2020 09/24/2020 Rectal cancer (HCC) [C20] 09/23/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HCC) [Z93.3] 09/23/2020 Acute postoperative respiratory insufficiency [*09/23/2020 10/18/2020 Metabolic acidosis [E87.20] 09/23/2020 09/24/2020 Electrolyte abnormality [E87.8] 09/23/2020 Hypoalbuminemia [E88.09] 09/24/2020 09/30/2020 Obesity, Class I, BMI 30-34.9 [E66.811] 09/26/2020 Essential (primary) hypertension [I10] 09/27/2020 Delirium [R41.0] 09/30/2020 10/18/2020 Idiopathic hypotension [I95.0] 09/30/2020 10/18/2020 Abnormal urinalysis [R82.90] 10/02/2020 Moderate protein-calorie malnutrition (HCC) [E4*10/03/2020 Postoperative ileus (HCC) [K91.89, K56.7] 10/04/2020 10/18/2020 On total parenteral nutrition (TPN) [Z78.9] 10/08/2020 10/13/2020 Peripherally inserted central catheter (PICC) i*10/08/2020 10/18/2020 Postoperative urinary retention [N99.89, R33.8] 10/08/2020 Hyponatremia [E87.1] 10/08/2020 10/18/2020 Urinary tract infection associated with indwell*10/13/2020 Encounter Status:Closed by RICARDA BEJARANO on 02/09/24 CNPN Observed: 02/07/2024 12:00 AM Status: COMPLETED Source: [facility] Telephone (AGSAM) EMELIA JOHNSON ([id number]) 1950 M Date Time Provider Department 02/07/24 JENAE SANTAMARIA AGS During your visit today, we recorded the following information about you: Sandra Lowe MA 02/07/2024 10:58 AM Signed Lesly from [facility] calling for clarification on catheter orders, states current orders say change once every 2 months, wants to know if it should be once a month? [phone] Jenae Santamaria MD 02/07/2024 12:31 PM Signed It should be monthly, but patient sees urology so not sure if they feel differently about schedule for catheter exchange. Would recommend Home Health reach out to patient's urologist, MD Dave Pierce [place], [place] 02/07/2024 2:37 PM Signed Marcy george, verbalized understanding Allergies As of Date: 02/07/2024 Noted Allergy Reaction LIPITOR (ATORVASTATIN) 11/17/2013 14 - Other: See Comments Comments: body aches Date Reviewed: 12/10/2023 Reviewed by: Jenae Santamaria MD - Fully Assessed Reason for Visit: Orders [681] Prescriptions as of 02/07/2024 - amLODIPine (NORVASC) 5 mg tablet Take 1 tablet by mouth once daily. - aspirin, enteric coated (ASPIRIN, ENTERIC COATED) 81 mg EC tablet Take 1 tablet by mouth once daily. - rosuvastatin (CRESTOR) 20 mg tablet Take 1 tablet by mouth daily at bedtime. - levothyroxine (SYNTHROID) 200 mcg tablet Take 1 tablet by mouth daily before breakfast. - albuterol HFA (PROVENTIL HFA) 90 mcg/actuation inhaler Inhale 1-2 Puffs as instructed four times a day as needed for wheezing/shortness of breath. - mjgtpzqwkzn-nflpxxjcj-cbvtvgkx (TRELEGY ELLIPTA) 100-62.5-25 mcg inhalation powder Inhale 1 Puff as instructed once daily. - fluticasone (FLONASE) 50 mcg/actuation nasal spray SPRAY 1 SPRAY INTO EACH NOSTRIL AT BEDTIME - ELIQUIS 5 mg tab(s) Take 1 tablet by mouth two times a day. - loratadine (CLARITIN) 10 mg tablet Take 1 tablet by mouth once daily. - finasteride (PROSCAR) 5 mg tablet Take 1 tablet by mouth once daily. - FERROUS SULFATE, BULK, MISC - Blood Pressure Test Kit-Large ([employer] BP MONITOR) 1 Each two times a day. - ergocalciferol 50,000 unit capsule (VITAMIN D2, DRISDOL) Take 1 capsule by mouth one time a week. - flash glucose sensor (FREESTYLE HEMA 14 DAY SENSOR) kit 1 Each four times daily. - Fenofibrate 160 mg tablet Take 1 tablet by mouth once daily. 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 02/08/2020 Atherosclerosis of [place] artery of extremity w*11/21/2013 Other hyperlipidemia [E78.49] Unspecified hypothyroidism [E03.9] Smoker [F17.200] 01/27/2015 Chronic ischemic right MCA stroke [Z86.73] 02/08/2020 CAD (coronary artery disease), [place] coronary *12/27/2013 Postprocedural hypotension [I95.81] 12/27/2013 09/25/2020 Stress hyperglycemia [R73.9] 12/27/2013 01/27/2015 Hypoxia [R09.02] 12/27/2013 12/28/2013 Acute blood loss anemia [D62] 12/30/2013 01/27/2015 Acute post-operative pain [G89.18] 01/03/2014 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] 01/03/2020 Embolic stroke involving right carotid artery (*02/08/2020 Symptomatic carotid artery stenosis [I65.29] 02/13/2020 BPH (benign prostatic hyperplasia) [N40.0] CKD (chronic kidney disease) stage 3, GFR 30-59* 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* Hemorrhoids [K64.9] Psoriasis [L40.9] Former smoker [Z87.891] AAA (abdominal aortic aneurysm) without rupture* 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 History of right-sided carotid endarterectomy [*03/13/2020 History of CVA (cerebrovascular accident) [Z86.*09/12/2020 Carotid artery disease (HCC) [I77.9] 09/12/2020 09/24/2020 Rectal cancer (HCC) [C20] 09/23/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HCC) [Z93.3] 09/23/2020 Acute postoperative respiratory insufficiency [*09/23/2020 10/18/2020 Metabolic acidosis [E87.20] 09/23/2020 09/24/2020 Electrolyte abnormality [E87.8] 09/23/2020 Hypoalbuminemia [E88.09] 09/24/2020 09/30/2020 Obesity, Class I, BMI 30-34.9 [E66.811] 09/26/2020 Essential (primary) hypertension [I10] 09/27/2020 Delirium [R41.0] 09/30/2020 10/18/2020 Idiopathic hypotension [I95.0] 09/30/2020 10/18/2020 Abnormal urinalysis [R82.90] 10/02/2020 Moderate protein-calorie malnutrition (HCC) [E4*10/03/2020 Postoperative ileus (HCC) [K91.89, K56.7] 10/04/2020 10/18/2020 On total parenteral nutrition (TPN) [Z78.9] 10/08/2020 10/13/2020 Peripherally inserted central catheter (PICC) i*10/08/2020 10/18/2020 Postoperative urinary retention [N99.89, R33.8] 10/08/2020 Hyponatremia [E87.1] 10/08/2020 10/18/2020 Urinary tract infection associated with indwell*10/13/2020 Encounter Status:Closed by JENAE SANTAMARIA on 02/07/24 CNPTOUTREAMORIAH Observed: 02/07/2024 12:00 AM Status: COMPLETED Source: [facility] Patient Outreach ([facility]) EMELIA JOHNSON ([id number]) 1950 Date Time Provider Department 02/07/24 GABRIELA GAN [facility] During your visit today, we recorded the following information about you: Gabriela Gan RN 02/07/2024 10:01 AM Signed TRANSITIONAL CARE MANAGEMENT (TCM) COMMUNITY MONITORING PROGRAM - [place] SUMMARY: Pt discharged from [facility] on 02/04/24. Pt discharged from [facility] on 02/13/14. Admitted for: AMS UTI Patient seen Inpatient MOOSE Visit? N/A. Patient seen ICARE Program? N/A. Contact made with patient: Yes Hi my name is Gabriela Gan RN and I am calling from the [facility] on behalf of your PCP, Jenae Santamaria MD I understand you were recently in the hospital so I am calling to check in with you to ensure you are feeling well now that you?re home. Do you mind if I ask you a few questions related to your hospital stay and well-being Yes Contact with patient post discharge, spoke to daughter. Patient identified by name and . Do you feel your health is BETTER, WORSE, or the SAME since leaving the hospital? Better Pt is sleeping for not. Per his daughter, he is doing good. She states that a Home SN will be out today. Pt will be receiving HC from [facility]. No UTI symptoms noted - no burning, frequency or odor. No confusion. He is a little stronger since being in rehab. ACTION TAKEN: Patient indicated symptoms are better or same, no action required. Continue outreach. N/A MEDICATIONS: Many patients have questions or concerns about their medications once they are home. Do you have any questions about taking your medications or which medication you should be on? No Do you need any medication refills at this time, including any of the medications you might take only when needed? No ACTION TAKEN: No action required For RNs or Pharmacy completing outreach ONLY, was a medication review completed? Yes Daughter states that the rehab didn't send pt home on any new meds. Current/Discharged Medications reviewed: Yes Medication List Medication Directions Comments albuterol HFA (PROVENTIL HFA) 90 mcg/actuation inhaler Inhale 1-2 Puffs as instructed four times a day as needed for wheezing/shortness of breath. Verified amLODIPine (NORVASC) 5 mg tablet Take 1 tablet by mouth once daily. Verified aspirin, enteric coated (ASPIRIN, ENTERIC COATED) 81 mg EC tablet Take 1 tablet by mouth once daily. Verified ELIQUIS 5 mg tab(s) Take 1 tablet by mouth two times a day. Verified ergocalciferol 50,000 unit capsule (VITAMIN D2, DRISDOL) Take 1 capsule by mouth one time a week. Verified Fenofibrate 160 mg tablet Take 1 tablet by mouth once daily. Verified FERROUS SULFATE, BULK, MISC None Entered Verified Takes daily finasteride (PROSCAR) 5 mg tablet Take 1 tablet by mouth once daily. Verified fluticasone (FLONASE) 50 mcg/actuation nasal spray SPRAY 1 SPRAY INTO EACH NOSTRIL AT BEDTIME Verified ethidnvsdls-dwzipamqr-ktfrbuqr (TRELEGY ELLIPTA) 100-62.5-25 mcg inhalation powder Inhale 1 Puff as instructed once daily. Verified levothyroxine (SYNTHROID) 200 mcg tablet Take 1 tablet by mouth daily before breakfast. Verified loratadine (CLARITIN) 10 mg tablet Take 1 tablet by mouth once daily. Verified rosuvastatin (CRESTOR) 20 mg tablet Take 1 tablet by mouth daily at bedtime. Verified SOCIAL: We would like to make sure you have what you need so that your basics needs are met - including your personal safety. HEALTH LEADS SCREENING TOOL QUESTIONS: Do you often feel you lack companionship? No Do you ever need help reading or understanding hospital materials? No Pt has issues sometimes. His family helps him. In the last 12 months, have you changed how you take medications to save money? No In the past 12 months, has lack of transportation kept you from medical appointments, work or getting things you need like food, or supplies? No In the last 12 months, did you ever eat less than you felt you should because there wasn't enough money for food? No During the winter, do you anticipate having a problem paying your heating bill? No In the next 2 months, are you worried you might not have stable housing? No Would you like to speak with a social work project manager/team coach to help give you support for any of these needs? No It can be normal to feel anxious or down during a time like this. Would you like to talk to a mental health professional about how you have been feeling? No ACTION TAKEN: No action taken DISCHARGE INTRUCTIONS: Your discharge instructions / After Visit Summary (AVS) are important in guiding you through the recovery process. Do you have any questions related to your discharge instructions? No Do you have all the necessary equipment and supplies at home? Yes ACTION TAKEN: No action required WRAP AROUND SERVICES: N/A Patient educated on importance of primary care provider follow up visit as well as specialty provider follow up visits as indicated. Inform the patient that if they have any questions or concerns prior to that appointment, to call their Primary Care Provider 's office right away. Primary care provider first education provided. I would like to help you schedule a hospital follow-up virtual or telephone visit with your PCP. ACTION TAKEN: TCM Primary Care Provider Visit Scheduled: No - Already has appointment scheduled-doesn't want to change it. Pt is already scheduled for a hospital f/u appointment w/ his PCP on 02/14/24 at 10:24a. Daughter states that pt has an appointment on Wednesday for his clot. He has a scope scheduled for 02/23/24 to get stents placed in his esophagus. Gabriela Gan RN Allergies As of Date: 02/07/2024 Noted Allergy Reaction LIPITOR (ATORVASTATIN) 11/17/2013 14 - Other: See Comments Comments: body aches Date Reviewed: 12/10/2023 Reviewed by: Jenae Santamaria MD - Fully Assessed Reason for Visit: Transition Of Care [0866] Cmt: SNF D/C 02/04/24 Prescriptions as of 02/07/2024 - amLODIPine (NORVASC) 5 mg tablet Take 1 tablet by mouth once daily. - aspirin, enteric coated (ASPIRIN, ENTERIC COATED) 81 mg EC tablet Take 1 tablet by mouth once daily. - rosuvastatin (CRESTOR) 20 mg tablet Take 1 tablet by mouth daily at bedtime. - levothyroxine (SYNTHROID) 200 mcg tablet Take 1 tablet by mouth daily before breakfast. - albuterol HFA (PROVENTIL HFA) 90 mcg/actuation inhaler Inhale 1-2 Puffs as instructed four times a day as needed for wheezing/shortness of breath. - xzbtljvfesu-wxedcyqpg-vbdbavrg (TRELEGY ELLIPTA) 100-62.5-25 mcg inhalation powder Inhale 1 Puff as instructed once daily. - fluticasone (FLONASE) 50 mcg/actuation nasal spray SPRAY 1 SPRAY INTO EACH NOSTRIL AT BEDTIME - ELIQUIS 5 mg tab(s) Take 1 tablet by mouth two times a day. - loratadine (CLARITIN) 10 mg tablet Take 1 tablet by mouth once daily. - finasteride (PROSCAR) 5 mg tablet Take 1 tablet by mouth once daily. - FERROUS SULFATE, BULK, MISC - Blood Pressure Test Kit-Large ([employer] BP MONITOR) 1 Each two times a day. - ergocalciferol 50,000 unit capsule (VITAMIN D2, DRISDOL) Take 1 capsule by mouth one time a week. - flash glucose sensor (ChoozleSTYLE HEMA 14 DAY SENSOR) kit 1 Each four times daily. - Fenofibrate 160 mg tablet Take 1 tablet by mouth once daily. 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 02/08/2020 Atherosclerosis of [place] artery of extremity w*11/21/2013 Other hyperlipidemia [E78.49] Unspecified hypothyroidism [E03.9] Smoker [F17.200] 01/27/2015 Chronic ischemic right MCA stroke [Z86.73] 02/08/2020 CAD (coronary artery disease), [place] coronary *12/27/2013 Postprocedural hypotension [I95.81] 12/27/2013 09/25/2020 Stress hyperglycemia [R73.9] 12/27/2013 01/27/2015 Hypoxia [R09.02] 12/27/2013 12/28/2013 Acute blood loss anemia [D62] 12/30/2013 01/27/2015 Acute post-operative pain [G89.18] 01/03/2014 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] 01/03/2020 Embolic stroke involving right carotid artery (*02/08/2020 Symptomatic carotid artery stenosis [I65.29] 02/13/2020 BPH (benign prostatic hyperplasia) [N40.0] CKD (chronic kidney disease) stage 3, GFR 30-59* 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* Hemorrhoids [K64.9] Psoriasis [L40.9] Former smoker [Z87.891] AAA (abdominal aortic aneurysm) without rupture* 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 History of right-sided carotid endarterectomy [*03/13/2020 History of CVA (cerebrovascular accident) [Z86.*09/12/2020 Carotid artery disease (HCC) [I77.9] 09/12/2020 09/24/2020 Rectal cancer (HCC) [C20] 09/23/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HCC) [Z93.3] 09/23/2020 Acute postoperative respiratory insufficiency [*09/23/2020 10/18/2020 Metabolic acidosis [E87.20] 09/23/2020 09/24/2020 Electrolyte abnormality [E87.8] 09/23/2020 Hypoalbuminemia [E88.09] 09/24/2020 09/30/2020 Obesity, Class I, BMI 30-34.9 [E66.811] 09/26/2020 Essential (primary) hypertension [I10] 09/27/2020 Delirium [R41.0] 09/30/2020 10/18/2020 Idiopathic hypotension [I95.0] 09/30/2020 10/18/2020 Abnormal urinalysis [R82.90] 10/02/2020 Moderate protein-calorie malnutrition (HCC) [E4*10/03/2020 Postoperative ileus (HCC) [K91.89, K56.7] 10/04/2020 10/18/2020 On total parenteral nutrition (TPN) [Z78.9] 10/08/2020 10/13/2020 Peripherally inserted central catheter (PICC) i*10/08/2020 10/18/2020 Postoperative urinary retention [N99.89, R33.8] 10/08/2020 Hyponatremia [E87.1] 10/08/2020 10/18/2020 Urinary tract infection associated with indwell*10/13/2020 Encounter Status:Closed by GABRIELA GAN on 02/07/24 HEBERTGUS Observed: 02/07/2024 12:00 AM Status: COMPLETED Source: [facility] Patient Outreach ([facility]) EMELIA JOHNSON ([id number]) 1950 M Date Time Provider Department 02/07/24 MARIA E ROLLINS [facility] During your visit today, we recorded the following information about you: Maria E Rollins RN 02/07/2024 6:38 AM Signed Patient discharged from [facility] 02/04/2024 to home. Maria E Rollins RN February 07, 2024 6:38 AM Allergies As of Date: 02/07/2024 Noted Allergy Reaction LIPITOR (ATORVASTATIN) 11/17/2013 14 - Other: See Comments Comments: body aches Date Reviewed: 12/10/2023 Reviewed by: Jenae Santamaria MD - Fully Assessed Reason for Visit: Transition Of Care [4074] Cmt: Discharged from [facility] as of 02/07/2024 - amLODIPine (NORVASC) 5 mg tablet Take 1 tablet by mouth once daily. - aspirin, enteric coated (ASPIRIN, ENTERIC COATED) 81 mg EC tablet Take 1 tablet by mouth once daily. - rosuvastatin (CRESTOR) 20 mg tablet Take 1 tablet by mouth daily at bedtime. - levothyroxine (SYNTHROID) 200 mcg tablet Take 1 tablet by mouth daily before breakfast. - albuterol HFA (PROVENTIL HFA) 90 mcg/actuation inhaler Inhale 1-2 Puffs as instructed four times a day as needed for wheezing/shortness of breath. - nkzsvrqsxxm-cthlkwecd-ddmqimwn (TRELEGY ELLIPTA) 100-62.5-25 mcg inhalation powder Inhale 1 Puff as instructed once daily. - fluticasone (FLONASE) 50 mcg/actuation nasal spray SPRAY 1 SPRAY INTO EACH NOSTRIL AT BEDTIME - ELIQUIS 5 mg tab(s) Take 1 tablet by mouth two times a day. - loratadine (CLARITIN) 10 mg tablet Take 1 tablet by mouth once daily. - finasteride (PROSCAR) 5 mg tablet Take 1 tablet by mouth once daily. - FERROUS SULFATE, BULK, MISC - Blood Pressure Test Kit-Large ([employer] CHOICE BP MONITOR) 1 Each two times a day. - ergocalciferol 50,000 unit capsule (VITAMIN D2, DRISDOL) Take 1 capsule by mouth one time a week. - flash glucose sensor (FREESTYLE HEMA 14 DAY SENSOR) kit 1 Each four times daily. - Fenofibrate 160 mg tablet Take 1 tablet by mouth once daily. 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 02/08/2020 Atherosclerosis of [place] artery of extremity w*11/21/2013 Other hyperlipidemia [E78.49] Unspecified hypothyroidism [E03.9] Smoker [F17.200] 01/27/2015 Chronic ischemic right MCA stroke [Z86.73] 02/08/2020 CAD (coronary artery disease), gakona coronary *12/27/2013 Postprocedural hypotension [I95.81] 12/27/2013 09/25/2020 Stress hyperglycemia [R73.9] 12/27/2013 01/27/2015 Hypoxia [R09.02] 12/27/2013 12/28/2013 Acute blood loss anemia [D62] 12/30/2013 01/27/2015 Acute post-operative pain [G89.18] 01/03/2014 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] 01/03/2020 Embolic stroke involving right carotid artery (*02/08/2020 Symptomatic carotid artery stenosis [I65.29] 02/13/2020 BPH (benign prostatic hyperplasia) [N40.0] CKD (chronic kidney disease) stage 3, GFR 30-59* 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* Hemorrhoids [K64.9] Psoriasis [L40.9] Former smoker [Z87.891] AAA (abdominal aortic aneurysm) without rupture* 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 History of right-sided carotid endarterectomy [*03/13/2020 History of CVA (cerebrovascular accident) [Z86.*09/12/2020 Carotid artery disease (HCC) [I77.9] 09/12/2020 09/24/2020 Rectal cancer (HCC) [C20] 09/23/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HCC) [Z93.3] 09/23/2020 Acute postoperative respiratory insufficiency [*09/23/2020 10/18/2020 Metabolic acidosis [E87.20] 09/23/2020 09/24/2020 Electrolyte abnormality [E87.8] 09/23/2020 Hypoalbuminemia [E88.09] 09/24/2020 09/30/2020 Obesity, Class I, BMI 30-34.9 [E66.811] 09/26/2020 Essential (primary) hypertension [I10] 09/27/2020 Delirium [R41.0] 09/30/2020 10/18/2020 Idiopathic hypotension [I95.0] 09/30/2020 10/18/2020 Abnormal urinalysis [R82.90] 10/02/2020 Moderate protein-calorie malnutrition (HCC) [E4*10/03/2020 Postoperative ileus (HCC) [K91.89, K56.7] 10/04/2020 10/18/2020 On total parenteral nutrition (TPN) [Z78.9] 10/08/2020 10/13/2020 Peripherally inserted central catheter (PICC) i*10/08/2020 10/18/2020 Postoperative urinary retention [N99.89, R33.8] 10/08/2020 Hyponatremia [E87.1] 10/08/2020 10/18/2020 Urinary tract infection associated with indwell*10/13/2020 Encounter Status:Closed by MARIA E ROLLINS on 02/07/24 JOSE DAVID Observed: 01/21/2024 12:00 AM Status: COMPLETED Source: [facility] Telephone ([facility]) EMELIA JOHNSON ([id number]) 1950 M Date Time Provider Department 01/21/24 JENAE SANTAMARIA During your visit today, we recorded the following information about you: Sandra Lowe MA 01/21/2024 4:25 PM Signed Called to schedule pt per your request, unidentified lady who answered the phone stating pt [facility] for [facility] Allergies As of Date: 01/21/2024 Noted Allergy Reaction LIPITOR (ATORVASTATIN) 11/17/2013 14 - Other: See Comments Comments: body aches Date Reviewed: 12/10/2023 Reviewed by: Jenae Santamaria MD - Fully Assessed Reason for Visit: Patient Update [1234] Prescriptions as of 01/31/2024 - amLODIPine (NORVASC) 5 mg tablet Take 1 tablet by mouth once daily. - aspirin, enteric coated (ASPIRIN, ENTERIC COATED) 81 mg EC tablet Take 1 tablet by mouth once daily. - rosuvastatin (CRESTOR) 20 mg tablet Take 1 tablet by mouth daily at bedtime. - levothyroxine (SYNTHROID) 200 mcg tablet Take 1 tablet by mouth daily before breakfast. - albuterol HFA (PROVENTIL HFA) 90 mcg/actuation inhaler Inhale 1-2 Puffs as instructed four times a day as needed for wheezing/shortness of breath. - oouhcoizrne-vytglgakn-lwdalyon (TRELEGY ELLIPTA) 100-62.5-25 mcg inhalation powder Inhale 1 Puff as instructed once daily. - fluticasone (FLONASE) 50 mcg/actuation nasal spray SPRAY 1 SPRAY INTO EACH NOSTRIL AT BEDTIME - ELIQUIS 5 mg tab(s) Take 1 tablet by mouth two times a day. - loratadine (CLARITIN) 10 mg tablet Take 1 tablet by mouth once daily. - finasteride (PROSCAR) 5 mg tablet Take 1 tablet by mouth once daily. - FERROUS SULFATE, BULK, MISC - Blood Pressure Test Kit-Large (CLEVER CHOICE BP MONITOR) 1 Each two times a day. - ergocalciferol 50,000 unit capsule (VITAMIN D2, DRISDOL) Take 1 capsule by mouth one time a week. - flash glucose sensor (FREESTYLE HEMA 14 DAY SENSOR) kit 1 Each four times daily. - Fenofibrate 160 mg tablet Take 1 tablet by mouth once daily. 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/21/2013 02/08/2020 Atherosclerosis of [place] artery of extremity w*11/21/2013 Other hyperlipidemia [E78.49] Unspecified hypothyroidism [E03.9] Smoker [F17.200] 01/27/2015 Chronic ischemic right MCA stroke [Z86.73] 02/08/2020 CAD (coronary artery disease), g[place]ona coronary *12/27/2013 Postprocedural hypotension [I95.81] 12/27/2013 09/25/2020 Stress hyperglycemia [R73.9] 12/27/2013 01/27/2015 Hypoxia [R09.02] 12/27/2013 12/28/2013 Acute blood loss anemia [D62] 12/30/2013 01/27/2015 Acute post-operative pain [G89.18] 01/03/2014 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] 01/03/2020 Embolic stroke involving right carotid artery (*02/08/2020 Symptomatic carotid artery stenosis [I65.29] 02/13/2020 BPH (benign prostatic hyperplasia) [N40.0] CKD (chronic kidney disease) stage 3, GFR 30-59* 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* Hemorrhoids [K64.9] Psoriasis [L40.9] Former smoker [Z87.891] AAA (abdominal aortic aneurysm) without rupture* 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 History of right-sided carotid endarterectomy [*03/13/2020 History of CVA (cerebrovascular accident) [Z86.*09/12/2020 Carotid artery disease (HCC) [I77.9] 09/12/2020 09/24/2020 Rectal cancer (HCC) [C20] 09/23/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HCC) [Z93.3] 09/23/2020 Acute postoperative respiratory insufficiency [*09/23/2020 10/18/2020 Metabolic acidosis [E87.20] 09/23/2020 09/24/2020 Electrolyte abnormality [E87.8] 09/23/2020 Hypoalbuminemia [E88.09] 09/24/2020 09/30/2020 Obesity, Class I, BMI 30-34.9 [E66.811] 09/26/2020 Essential (primary) hypertension [I10] 09/27/2020 Delirium [R41.0] 09/30/2020 10/18/2020 Idiopathic hypotension [I95.0] 09/30/2020 10/18/2020 Abnormal urinalysis [R82.90] 10/02/2020 Moderate protein-calorie malnutrition (HCC) [E4*10/03/2020 Postoperative ileus (HCC) [K91.89, K56.7] 10/04/2020 10/18/2020 On total parenteral nutrition (TPN) [Z78.9] 10/08/2020 10/13/2020 Peripherally inserted central catheter (PICC) i*10/08/2020 10/18/2020 Postoperative urinary retention [N99.89, R33.8] 10/08/2020 Hyponatremia [E87.1] 10/08/2020 10/18/2020 Urinary tract infection associated with indwell*10/13/2020 Encounter Status:Closed by SANDRA LOWE on 01/31/24 ALLERGIES DATE TYPE / CODE NAME / CODE REACTION SEVERITY SOURCE 11/17/2013 DRUG INGREDI/[id number]( SNOMED CT) ATORVASTATIN OTHER: SEE C Claudio [facility] ENCOUNTERS ADMIT/DISCHARGE ACCOUNT NUMBER ADMITTING ENCOUNTER CLASS LOCATION SOURCE 12/12/2024/12/13/19 [id number] [facility] 10/27/2024/10/31/19 [id number] [facility]ANE [facility] 09/15/2024/09/16/[id number] [facility] ng:[facility] 09/07/2024/06/[id number] [facility] 08/22/2024/08/23/19 [id number] [facility]/22/2024/08/23/19 [id number] [facility] 05/19/2024/05/19/[id number] [facility] 04/15/2024/04/15/[id number] [facility] 04/07/2024/04/07/19 [id number] [facility] PAYERS ENCOUNTER GUARANTOR PAYER SUBSCRIBER SOURCE 12/12/2024 Primary Insurance:MEDICARE A AND BPolicy Number: [id number] Date:4297-29-57Ndbe Name:Mohinder CHARLES: [id number] [place], [place] [address] [place] [address] 12/12/2024 Secondary Insurance:[employer] BCBS FEP PPOPolicy Number: [id number] Date:1452-57-05Qzlb Name:Blade CHARLES: [id number] [place], [place] [address] [place] [address] 10/27/2024 Primary Insurance:MEDICARE A AND BPolicy Number: [id number] Date:9244-53-98Irqu Name:Mohinder CHARLES: [id number] [place], [place] [address] [place] [address] 10/27/2024 Secondary Insurance:[employer] BCBS FEP PPOPolicy Number: [id number] Date:7341-37-80Rjqm Name:Blade CHARLES: [id number] [place], [place] [address] [place] [address] 09/15/2024 Primary Insurance:MEDICARE A AND BPolicy Number: [id number] Date:2689-42-88Dzsc Name:Mohinder CHARLES: [id number] [place], [place] [id number] [place] [address] 09/15/2024 Secondary Insurance:[employer] BCBS FEP PPOPolicy Number: [id number] Date:6966-52-95Kmjp Name:Blade CHARLES: [id number] [place], [place] [address] [place] [address] 09/07/2024 Primary Insurance:MEDICARE A AND BPolicy Number: [id number] Date:0762-10-15Liag Name:Mohinder CHARLES: [id number] [place], [place] [address] [place] [address] 09/07/2024 Secondary Insurance:[employer] BCBS FEP PPOPolicy Number: [id number] Date:0599-47-72Eucg Name:Blade CHARLES: [id number] [place], [place] [address] [place] [address] 08/22/2024 Primary Insurance:MEDICARE A AND BPolicy Number: [id number] Date:4677-31-58Tffo Name:Mohinder CHARLES: [id number] [place], [place] [address] [place] [address] 08/22/2024 Secondary Insurance:[employer]BS FEP PPOPolicy Number: [id number] Date:0851-53-90Mgoq Name:Blade CHARLES: [id number] [place], [place] [address] [place] [address] 08/22/2024 Primary Insurance:MEDICARE A AND BPolicy Number: [id number] Date:4921-59-23Mjjl Name:Mohinder CHARLES: [id number] [place], [place] [address] [place] [address] 08/22/2024 Secondary Insurance:[employer] BCBS FEP PPOPolicy Number: [id number] Date:5264-79-03Sqcz Name:Blade CHARLES: [id number] [place] [address] [address] [place] [address] 05/19/2024 Primary Insurance:MEDICARE A AND BPolicy Number: [id number] Date:9959-77-35Vlpm Name:Mohinder CHARLES: [id number] [place], [place] [address] [place] [address] 05/19/2024 Secondary Insurance:[employer] FEP PPOPolicy Number: [id number] Date:9153-85-96Syfs Name:Blade CHARLES: [id number] [place], [place] [address] [place] [address] 04/15/2024 Primary Insurance:MEDICARE A AND BPolicy Number: [id number] Date:0566-41-51Wvnn Name:Mohinder CHARLES: [id number] [place], [place] [address] [place] [address] 04/15/2024 Secondary Insurance:[employer]BS FEP PPOPolicy Number: [id number] Date:6142-14-81Bcpr Name:Blade CHARLES: [id number] [place], [place] [id number] [place] [address] 04/07/2024 Primary Insurance:MEDICARE A AND BPolicy Number: [id number] Date:1255-33-88Kbej Name:Mohinder CHARLES: [id number] [address] [address], [place] [id number] [place] [address] 04/07/2024 Secondary Insurance:[employer] FEP PPOPolicy Number: [id number] Date:1985-35-09Njok Name:Blade CAHRLES: [id number] [address] [address], [place] [address] [place] [address]
[2024-12-26 08:00] LABS: Hematocrit 35.9 % (40-54); Hemoglobin 11.2 g/dL (13.0-16.5); Mean Corp Hgb Conc 31.2 g/dL (32-36); Mean Corpuscular Volume 85.9 fL (80-94); Mean Platelet Vol. 12.0 fl (6.2-12.0); Platelet Count 134 K/mm3 (150-450); RBC Distribution Width CV 17.4 % (11.6-14.6); RBC Distribution Width SD 54.6 fl (35.1-43.9); Red Blood Count 4.18 M/mm3 (4.6-6.2); White Blood Count 7.7 K/mm3 (4.4-11.0)
[2024-12-26 08:16] LABS: Anion Gap 13 (5-15); BUN 25 mg/dL (4-19); BUN/Creat Ratio 10.8 RATIO (10-20); Calcium,Total 9.2 mg/dL (7.6-11.0); Carbon Dioxide 26.2 mmol/L (21.0-32.0); Chloride 104 mmol/L (98-108); Glucose 87 mg/dL (70-99); Magnesium 2.2 mg/dL (1.5-2.2); Potassium 3.6 mmol/L (3.3-5.1)
== END ==
LOC: OLS.SW 05:00
PROVIDERS: PCP Internal Medicine; Visit Provider Internal Medicine
DX: I25.10 Atherosclerotic heart disease of native coronary artery without angina pectoris (principal); E11.9 Type 2 diabetes mellitus without complications; E46 Unspecified protein-calorie malnutrition; I73.9 Peripheral vascular disease, unspecified; G93.41 Metabolic encephalopathy; J44.9 Chronic obstructive pulmonary disease, unspecified
CPT/HCPCS: 36415; 80048; 83735; 85027

== ENCOUNTER → 2025-01-02 05:00 | Outpatient (REF) | payer MEDICARE, BC, SELFPAY | LOC: OLS.SW 05:00 | PROVIDERS: PCP Internal Medicine; Visit Provider Internal Medicine | DX: J44.9 Chronic obstructive pulmonary disease, unspecified (principal) | CPT/HCPCS: 36415; 84443 ==

== ENCOUNTER → 2025-01-30 05:00 | Outpatient (REF) | payer MEDICARE, BC, SELFPAY ==
--- OUTSIDE RECORDS SUMMARY | 2025-01-30 04:14 | XMS RPT_ITS | CCD ---
Author Organization [facility] Care Team Providers Care Survey Researcher Name Role Phone Boaz MURILLO, Dave Lebron Primary Care Provider Walker MURILLO, Cora Unavailable [phone] Salvador MURILLO, eJnae Primary Care Provider Gato MURILLO, Samantha Unavailable Dr. Garfield Chacon Emergency Provider MD Jenae Santamaria Primary Care Provider Dr. Luke Mims Admit Provider Unavailabl e Dr. Luke Mims Other Provider Unavailabl e Dr. Gael Bourne Other Provider [phone] Dr. Willian Cook Attending Provider Dr. Willian Cook Other Provider Dr. Naman Lowe Other Provider Dr. Bo Damico Other Provider Dr. Caitie Huddleston Other Provider Dr. Fareed Hooker Other Provider Dr. Dione Hopkins Other Provider Dr. Mary Brown Other Provider Unavailable Dr. Cr Burrows Other Provider Dr. Satnam Heck Other Provider Dr. Anthony Taylor Other Provider Dr. Mata Williamson Other Provider Dr. Kulwinder De La O Other Provider Dr. Johnnie Logan Other Provider Marcy Vang Other Provider Carlos, [employer]STER-C Liliane Other Provider Dr. Guilherme Burgess Attending Provider Dr. Kulwinder De La O Attending Provider Dr. Sadiq Forte Other Provider Dr. Guilherme Tellez Other Provider Dr. Sadiq Forte Attending Provider Dr. Aníbal Vela Attending Provider Dr. Aníbal Vela Other Provider Salvador MURILLO, [facility] Primary Care Provider Geovanni RN, Gabriela Unavailable Geovanni RN, Gabriela Unavailable Gato MURILLO, [facility] Unavailable Unavailable Salvador MURILLO, [facility] Care Provider Dr. Toni King DO Emergency Provider Dr. Kulwinder De La O DO Admit Provider Dr. Kulwinder De La O DO Attending Provider Dr. Kulwinder De La O DO Other Provider [phone] Dr. Efraín Thompson MD Other Provider Dr. Ginger Espitia DO Attending Provider [phone] Efraín Thompson MD Attending Provider [phone] Kulwinder De La O DO Referring Provider Dr. Kulwinder De La O DO Attending Provider Dr. David Ramos DO Attending Provider Dr. Ginger Espitia DO Other Provider Jacey Collier Attending Provider Dr. Oni Lundberg MD Attending Provider [phone] Oni Lundberg MD Referring Provider Dr. Ginger Espitia DO Referring Provider Vannessa MURILLO, Dr. Mccarthy Attending Provider Sam Michele MD, John Emergency Provider Vannessa MURILLO, Dr. Mccarthy Primary Care Provider Kira Farmer RN, Kelsi Unavailable Vannessa MURILLO, Dr. Mccarthy Referring Provider Sam Ortiz MD, Dr. Rivera Attending Provider Angel MURILLO, Dr. Rivera Other Provider Angel MURILLO, Dr. Rivera Referring Provider Vannessa MURILLO, Dr. Mccarthy Referring Provider Sam Farmer RN, Kelsi Unavailable Salvador MURILLO, Jenae Primary Care Provider Fernando HERNANDEZ, Dr. Muñoz Emergency Provider [phone] Kulwinder De La O DO Admit Provider Jairon HERNANDEZ, Dr. Miramontes Other Provider Jay MURILLO, Dr. Kenny Other Provider Dr. Ginger Espitia DO Attending Provider Dr. Efraín Thompson MD Attending Provider Dr. Kulwinder De La O DO Referring Provider Dr. Kulwinder De La O DO Attending Provider Dr. David Ramos DO Attending Provider Dr. Oni Lundberg MD Attending Provider Dr. Oni Lundberg MD Referring Provider Dr. Ginger Espitia DO Referring Provider Dr. Ginger Espitia DO Other Provider Jacey Collier Attending Provider Vannessa MURILLO, Dr. Mccarthy Attending Provider Sam Hurd MD, Dr. Mccarthy Referring Provider Unavaila yehuda Michele MD, John Emergency Provider Vannessa MURILLO, Dr. Mccarthy Primary Care Provider Unava daniel Ortiz MD, Dr. Rivera Attending Provider Angel MURILLO, Dr. Rivera Other Provider [phone] Angel MURILLO, Dr. Rivera Referring Provider Vannessa MURILLO, Dr. Mccarthy Referring Provider Unavaila ble SANTAMARIA, JENAE Primary Care Unavailable KHUBBER, SHAMEER Admitting Unavailable SHEPARD, SABAHAT DESIRAE Attending Unavaila ble PROVIDER, UNKNOWN Consulting Unavailable SANTAMARIA, JENAE Referring Unavailable SANTAMARIA, JENAE Primary Care Unavailable GUTIERREZ ACEVEDO Attending Unavailable SHEPARD, SABAHAT DESIRAE Referring Unavaila ble SANTAMARIA, JENAE Primary Care Unavailable TESTRABRIT, YUDY Attending Unavailable TESTRAKE, YUDY Referring Unavailable SANTAMARIA, JENAE Primary Care Unavailable TESTJAMI, YUDY Attending Unavailable TESTRAKE, YUDY Referring Unavailable SANTAMARIA, JENAE Primary Care Unavailable TESTYUDY FARRELL Attending Unavailable TESTRAKE, YUDY Referring Unavailable SANTAMARIA, JENAE Primary Care Unavailable SANTAMARIA, JENAE Referring Unavailable SANTAMARIA, JENAE Primary Care Unavailable SANTAMARIA, JENAE Attending Unavailable SANTAMARIA, JENAE Primary Care Unavailable SANTAMARIA, JENAE Attending Unavailable SANTAMARIA, JENAE Primary Care Unavailable BRIAN CUMMINGS Attending Unavailable SANTAMARIA, JENAE Referring Unavailable SANTAMARIA, JENAE Primary Care Unavailable Santamaria, Jenae Primary Care Unavailable Jay, Efraín Consulting Unavailable Mosteller, Kulwinder Admitting Unavailable Ginger Espitia Attending Unavailable Mosteller, Kulwinder Consulting Unavailable Omkar Ginger Consulting Unavailable Santamaria, Jenae Referring Unavailable Santamaria, Jenae Primary Care Unavailable Jacey Araya Attending Unavailable Mosteller, Kulwinder Referring Unavailable Friend, David Attending Unavailable Gudla, Shari Primary Care Unavailable Gudla Shari SLATER Attending Unavailable Santamaria, Jenae Referring Unavailable Santamaria, Jenae Primary Care Unavailable Friend, David Attending Unavailable Mosteller, Kulwinder Consulting Unavailable Mosteller, Kulwinder Admitting Unavailable Miguel Ortiz Referring Unavailable Friend, David Attending Unavailable Gudla, Shari Primary Care Unavailable Jay, Efraín Consulting Unavailable Miguel Ortiz Consulting Unavailable Miguel Ortiz Attending Unavailable Gudla, Shari Primary Care Unavailable Gudla OLS, Shari Attending Unavailable Gudla, Shari Primary Care Unavailable Gudla OLS, Shari Attending Unavailable Gudla, Shari Primary Care Unavailable Gudla OLS Shari Attending Unavailable Gudla, Shari Primary Care Unavailable Gudla OLS, Shari Attending Unavailable Jacey Araya Attending Unavailable Omkar, Ginger Referring Unavailable Gudla, Shari Referring Unavailable Gudla, Shari Primary Care Unavailable Efraín Thompson Attending Unavailable Kulwinder De La O Attending Unavailable Gudla, Shari Primary Care Unavailable Gudla NOHEMY Shari Attending Unavailable John Michele Attending Unavailable Gudla, Shari Primary Care Unavailable Gudla, Shari Primary Care Unavailable Gudla OLS, Shari Attending Unavailable Gudla, Shari Primary Care Unavailable Gudla OLS Shari Attending Unavailable Jacey Araya Attending Unavailable Santamaria, Jenae Referring Unavailable Santamaria, Jenae Primary Care Unavailable Friend, David Attending Unavailable Friend, David Consulting Unavailable Kulwinder De La O Attending Unavailable Efraín Thompson Attending Unavailable Santamaria, Jenae Primary Care Unavailable Kulwinder De La O Referring Unavailable CliftonEfraín loza Attending Unavailable Santamaria, Jenae Referring Unavailable Gudla, Shari Primary Care Unavailable Jay, Efraín Attending Unavailable Santamaria, Jenae Primary Care Unavailable Toño, Oni Referring Unavailable ToñoVenancioGillette Attending Unavailable Gudla, Shari Referring Unavailable Gudla, Shari Primary Care Unavailable Efraín Thompson Attending Unavailable Santamaria, Jenae Primary Care Unavailable Gudla Blade SLATERyothi Attending Unavailable Gudla OLS, Shari Referring Unavailable Santamaria, Jenae Primary Care Unavailable Efraín Thompson Consulting Unavailable Kulwinder De La O Admitting Unavailable Ginger Espitia Attending Unavailable Kulwinder De La O Consulting Unavailable Jairon, Kulwinder Admitting Unavailable Gudla, Shari Primary Care Unavailable Kulwinder De La O Consulting Unavailable Miguel Ortiz Attending Unavailable Jay, Efraín Consulting Unavailable Gudla, Shari Primary Care Unavailable Gudla OLS, Shari Attending Unavailable Gudla OLS, Shari Referring Unavailable Gudla, Shari Primary Care Unavailable Gudla OLS, Shari Attending Unavailable Gudla OLS, Shari Referring Unavailable Gudla, Shari Primary Care Unavailable Gudla OLS, Shari Attending Unavailable Dr. Shari Hurd MD Primary Care Physician Unav John Mary MD Attending Physician John Michele MD Emergency Department Physician Dr. Shari Hurd MD Attending Physician Unavail able Dr. Shari Hurd MD Referring Provider Unavaila ble Unavailable Unavailable Unavailable Unavailable Unavailable Unavailable Allergies Allergy Classification Reported Allergen(s) Allergy Type Date of Onset Reaction(s) Facility HMG-CoA Reductase Inhibitors (statins) (3 sources) atorvastatin Drug Allergy 4 Other: See Comments [facility] (5 sources) atorvastatin Drug Allergy 0 Visual Disturbance [facility] Work Phone: (20 sources) atorvastatin; Translations: [ATORVASTATIN] Drug Allergy 4 Other: See Comments [facility] Medications Current Medications Medication Drug Class(es) Dates Sig (Normalized) Sig (Original) acetaminophen 325 mg oral capsule (2 sources) take 2 capsules by mouth every four hours as needed acetaminophen 325 mg cap Take 650 mg by mouth every 4 hours as needed for pain or fever (specify temp.) (Oral or supository). Active alogliptin 6.25 mg oral tablet (2 sources) take 1 tablet by mouth twice daily alogliptin (NESINA) 6.25 mg tab Take 6.25 mg by mouth two times a day. Active aluminum hydroxide 40 mg/ml / magnesium hydroxide 40 mg/ml / simethicone 4 mg/ml oral suspension (2 sources) take 30 mL by mouth every six hours as needed aluminum-magnesium hydroxide-simethic one (MAALOX,MYLANTA,MA G-AL PLUS) 200-200-20 mg/5 mL suspension Take 30 mL by mouth every 6 hours as needed. Active amLODIPine 5 mg oral tablet (20 sources) Dihydropyridine Calcium Channel Ross Start: 09-27-2024 take 1 tablet by mouth once daily Start: 08-03-2023 End: 08-09-2024 take 1 tablet by mouth once daily Amlodipine 5 mg tablet Discontinued 5 mg PO DAILY July 01, 2024 12:00am July 07, 2024 2:13pm Start: 05-07-2023 End: 08-03-2023 take 1 tablet by mouth once daily Amlodipine 10 mg tablet Discontinued 10 mg PO DAILY June 22, 2023 12:00am June 26, 2023 3:59pm Start: 10-24-2019 take 1 tablet by marco th once daily amLODIPine (NORVASC) 10 mg tablet Take 10 mg by mouth once daily. 0 10/24/2019 Active Comment on above: Take 10 mg by mouth once daily. Take 1 tablet by marco th once daily. Blood Pressure Test Kit-Large (CLEVER CHOICE BP MONITOR) (20 sources) Start: 05-07-2023 Blood Pressure Test Kit-Large (CLEVER CHOICE BP MONITOR) Indications: Primary hypertension 1 Each two times a day. 1 Each 05/07/2023 Active Start: 05-07-2023 Blood Pressure Test Kit-Large (CLEVER CHOICE BP MONITOR) Indications: Primary hypertension 1 Each two times a day. 1 Each 0 05/07/2023 Active Comment on above: 1 Each two times a d ay. cholecalciferol 0.025 mg oral capsule (5 sources) Vitamin D Start: 5 take 2 capsules by mouth once daily Cholecalciferol, Vitamin D3, (VITAMIN D) 25 mcg (1,000 unit) cap Indications: Vitamin D deficiency Take 2 capsules by mouth once daily. 180 capsule 2 11/08/2024 Active doxycycline monohydrate 100 mg oral capsule (2 sources) Tetracycline-cla ss Drug Start: End: 5 take 1 capsule by mouth twice daily doxycycline monohydrate (MONODOX) 100 mg capsule Indications: Wound infection Take 1 capsule by mouth two times a day for 7 days. 14 capsule 08/22/2024 08/29/2024 Active enteric contrast (will be provided with radiology test) (20 sources) Start: End: enteric contrast (will be provided with radiology test) For CT CHESTABD/PEL W IVCON Routine order Administer, As Directed One Time Only, via Oral, Rectal, both Oral and Rectal, Enteric Tube, Stoma or Indwelling Catheter, Enteric Contrast as designated per enteric contrast guidelines 1 each 09/15/2024 09/16/2024 Active Start: 05-27-2023 End: 05-27-2023 take 1 dose by mouth once, then take 1 dose by mouth once enteric contrast (will be provided with radiology test) Take 1 Each by mouth one time only for [address] Chest ABD/PEL WO Routine order Administer, As Directed One Time Only, via Oral, Rectal, both Oral and Rectal, Enteric Tube, Stoma or Indwelling Catheter, Enteric Contrast as designated per enteric contrast guidelines 1 Each 0 05/27/2023 05/27/2023 Start: 11-15-2020 End: 08-03-2023 enteric contrast (will be pr ovided with radiology test) For CT ABD/PEL W IVCON Routine order Administer, As Directed One Time Only, via Oral, Rectal, both Oral and Rectal, Enteric Tube, Stoma or Indwelling Catheter, Enteric Contrast as designated per enteric contrast guidelines 1 Each 0 11/15/2020 08/03/2023 Discontinued Start: 11-15-[address] (will be provided with radiology test) For CT ABD/PEL W IVCON Routine order Administer, As Directed One Time Only, via Oral, Rectal, both Oral and Rectal, Enteric Tube, Stoma or Indwelling Catheter, Enteric Contrast as designated per enteric contrast guidelines 1 Each 0 11/15/2020 Active Comment on above: For CT ABD/PEL W IVC ON Routine order Administer, As Directed One Time Only, via Oral, Rectal, both Oral and Rectal, Enteric Tube, Stoma or Indwelling Catheter, Enteric Contrast as designated per enteric contrast guidelines Take 1 Each by mouth one time only for [address] Chest ABD/PEL WO Routine order Administer, As Directed One Time Only, via Oral, Rectal, both Oral and Rectal, Enteric Tube, Stoma or Indwelling Catheter, Enteric Contrast as designated per enteric contrast guidelines ergocalciferol 1.25 mg oral capsule (20 sources) Provitamin D2 Compound Start: 08-16-2024 End: 11-08-2024 Start: 07-01-2024 End: 07-13-2024 Ergocalciferol (Vitamin D2) 1,250 mcg (50,000 unit) capsule Discontinued 1250 ug PO MO July 01, 2024 12:00am July 13, 2024 7:25pm Start: 05-04-2023 End: 04-17-2024 take 1 capsule by mouth every week ergocalciferol 50,000 unit capsule (VITAMIN D2, DRISDOL) Indications: Vitamin D deficiency Take 1 capsule by mouth one time a week. 12 capsule 04/17/2024 Active Comment on above: Take 1 capsule by [facility] one time a week. fenofibrate 160 mg oral tablet (20 sources) Peroxisome Proliferator Receptor alpha Agonist Start: take 1 tablet by mouth once daily Fenofibrate 160 mg tablet Take 1 tablet by mouth once daily. 0 11/20/2013 Active take 1 capsule by mo [facility] once daily at breakfast fenofibrate (LOFIBRA) 200 mg capsule Eduardo e 200 mg by mouth daily with breakfast. Active Comment on above: Take 1 tablet by [facility] once daily. ferrous sulfate 325 mg oral tablet (20 sources) Start: 08-25-2024 take 1 tablet by mouth every other day ferrous sulfate 325 mg (65 mg iron) tablet Indications: Anemia, unspecified type Take 1 tablet by mouth every other day. 30 tablet 3 08/25/2024 Active Start: 06-26-2023 End: 07-07-2024 take 1 tablet by mouth twice daily at mealtime Ferrous Sulfate 325 mg (65 mg iron) tablet Discontinued 325 mg PO TWICE DAILY WITH MEALS 1 0 June 26, 2023 4:05pm July 07, 2024 2:13pm iron Start: 06-22-2023 End: 06-26-2023 take 1 tablet by mouth once daily Ferrous Sulfate 325 mg (65 mg iron) tablet Discontinued 325 mg PO DAILY June 22, 2023 12:00am June 26, 2023 4:05pm finasteride 5 mg oral tablet (20 sources) 5-alpha Reductase Inhibitor Start: 02-05-2020 End: 11-13-2024 take 1 tablet by mouth once daily Comment on above: Take 5 mg by mouth o nce daily. flash glucose sensor (FREESTYLE HEMA 14 DAY SENSOR) kit (20 sources) Start: 04-07-2023 flash glucose sensor (FREESTYLE HEMA 14 DAY SENSOR) kit Indications: Type 2 diabetes mellitus with other circulatory complication, with long-term current use of insulin (HCC) 1 Each four times daily. 1 Kit 2 04/07/2023 Active Comment on above: 1 Each four times da hunter. fluticasone propionate 0.05 mg/actuat metered dose nasal spray (20 sources) Corticosteroid Start: 09-13-2023 End: 09-27-2023 take 1 spray(s) nasal route at bedtime fluticasone (FLONASE) 50 mcg/actuation nasal spray Indications: Seasonal allergic rhinitis due to pollen SPRAY 1 SPRAY INTO EACH NOSTRIL AT BEDTIME 48 mL 1 09/27/2023 Active Start: 09-10-2023 End: 09-13-2023 take 1 spray(s) nasal route once daily at bedtime fluticasone (FLONASE) 50 mcg/actuation nasal spray Indications: Seasonal allergic rhinitis due to pollen Use 1 [place] in each nostril daily at bedtime. 9.9 mL 1 09/10/2023 09/13/2023 Discontinued Rhzlqdrjvmt-Jagpuqfku-Nnpcgw er (20 sources) Anticholinergic, Corticosteroid, beta2-Adrenergic Agonist Start: 07-01-2024 Start: 07-01-2024 Start: 07-01-2024 Fluticasone-Um eclidin-Vilanter (Trelegy Ellipta) 100-62.5-25 mcg blister with device Active 1 NMA INHALATION DAILY July 01, 2024 12:00am Start: 07-01-2024 Fluticasone-Um eclidin-Vilanter [Fluticasone Fur. 100 Mcg-Umeclid 62.5 Mcg-Vilant 25 Mcg Inhalat.Powder] (Fluticasone Fur. 100 Mcg-Umeclid 62.5 Mcg-Vilant ) 100-62.5-25 mcg blister with device Active 1 NMA INHALATION DAILY July 01, 2024 12:00am Start: 12-10-2023 End: 08-22-2024 take 1 puff(s) by inhalation once daily ijuydosfkqq-fvvnvofpb-qtazyjhh (TRELEGY ELLIPTA) 100-62.5-25 mcg inhalation powder Indications: Chronic obstructive pulmonary disease, unspecified COPD type (HCC) Inhale 1 puff as instructed once daily. 60 each 08/22/2024 Active furosemide 20 mg oral tablet (2 sources) Loop Diuretic take 1 tablet by mouth twice daily furosemide (LASIX) 20 mg tablet Take 20 mg by mouth two times a day. Active 0.2 ml glucagon 5 mg/ml prefilled syringe (2 sources) Antihypoglycemic Agent glucagon 1 mg/0.2 mL syrg Inject 1 mL subcutaneously as needed (For symptomatic hypoglycemia). Active Glucose (2 sources) dextrose (GLUCOS E GEL PO) Take by mouth as needed (hypoglycemia). Active guaiFENesin (2 sources) take 10 mL by mouth every four hours as needed GUAIFENESIN PO Take 10 mL by mouth every 4 hours as needed (cough, congestion). Active icosapent ethyl 1000 mg oral capsule (20 sources) Start: 07-02-19 take 1 capsule by mouth twice daily Start: 04-17-2024 icosapent ethy l (VASCEPA) 1 gram capsule Indications: Atherosclerotic cardiovascular disease , Hypertriglyceridemia Take 2 capsules by mouth two times a day. 240 capsule 5 04/17/2024 Active 3 ml insulin lispro 100 unt/ ml pen injector (3 sources) Insulin Analog Start: 07-20-2024 Start: 07-20-2024 iv contrast (will be provide d with radiology test) (20 sources) Start: 09-15-2024 End: 09-16-2024 iv contrast (will be provide d with radiology test) CT Chest ABD/PEL-Inject, intravenously, [...] CT contrast administration guidelines link. 1 each 09/15/2024 09/16/2024 Active Start: 11-15-2020 End: 08-03-2023 iv contrast (will be provide d with radiology test) CT ABD/PEL -Inject, intravenously, once for 1 dose.No IV access, [...] the CT contrast administration guidelines link. 1 Each 0 11/15/2020 08/03/2023 Discontinued Start: 11-15-2020 iv contrast (w ill be provided with radiology test) CT ABD/PEL -Inject, intravenously, once for 1 dose.No IV access, [...] the CT contrast administration guidelines link. 1 Each 0 11/15/2020 Active Comment on above: CT ABD/PEL -Inject, intravenously, once for 1 dose.No IV access, [...] in the CT contrast administration guidelines link. levothyroxine sodium 0.2 mg oral tablet (20 sources) l-Thyroxine Start: 09-27-2024 take 1 tablet by mouth once daily Start: 08-25-2024 take 1 tablet by marco th once daily before breakfast levothyroxine (SYNTHROID) 175 mcg tablet Indications: Unspecified hypothyroidism Take 1 tablet by mouth daily before breakfast. 90 tablet 08/25/2024 Active Start: 07-01-2024 End: 07-13-2024 take 1 tablet by mouth once daily Levothyroxine 150 mcg tablet Discontinued 150 ug PO DAILY July 01, 2024 12:00am July 13, 2024 7:21pm Start: 01-15-2024 End: 09-27-2024 take 1 tablet by mouth once daily Levothyroxine 100 mcg Tablet Discontinued 100 ug PO DAILY@0600 30 2 January 15, 2024 12:00am September 27, 2024 1:16pm thyroid Start: 06-22-2023 End: 01-15-2024 take 1 tablet by mouth once daily Levothyroxine 175 mcg tablet Discontinued 175 ug PO DAILY June 22, 2023 12:00am January 15, 2024 1:01pm thyroid Start: 06-09-2023 End: 04-07-2024 take 1 tablet by mouth once daily before breakfast levothyroxine (SYNTHROID) 200 mcg tablet Indications: Unspecified hypothyroidism Take 1 tablet by mouth daily before breakfast. 90 tablet 1 12/10/2023 04/07/2024 Discontinued Start: 06-01-2023 End: 06-09-2023 take 1 tablet by mouth once daily before breakfast levothyroxine (SYNTHROID) 175 mcg tablet Indications: Unspecified hypothyroidism TAKE 1 TABLET BY MOUTH EVERY DAY BEFORE BREAKFAST 90 tablet 1 06/01/2023 06/09/2023 Discontinued Start: 05-03-2023 take 1 tablet by marco th once daily before breakfast levothyroxine (SYNTHROID) 175 mcg tablet Indications: Unspecified hypothyroidism Take 1 tablet by mouth daily before breakfast. 30 tablet 0 05/03/2023 Active Start: 11-11-2019 take 1 tablet by marco th once daily levothyroxine (SYNTHROID) 150 mcg tablet Take 150 mcg by mouth once daily. 0 11/11/2019 Active Start: 03-25-2015 take 1 tablet by marco th once daily Levothyroxine Sodium (Synthroid) 125 MCG tablet Active 125 MCG PO Daily March 25, 2015 3:47pm Comment on above: Take 150 mcg by mout h once daily. Take 1 tablet by marco th daily before breakfast. TAKE 1 TABLET BY MARCO TH EVERY DAY BEFORE BREAKFAST linagliptin 5 mg oral tablet (20 sources) Dipeptidyl Peptidase 4 Inhibitor Start: 04-17-2024 End: 08-22-2024 take 1 tablet by mouth once daily loratadine 10 mg oral tablet (20 sources) Start: 09-27-2024 take 1 tablet by mouth once daily Start: 09-10-2023 End: 05-15-2024 take 1 tablet by mouth once daily loratadine (CLARITIN) 10 mg tablet Indications: Seasonal allergic rhinitis due to pollen TAKE 1 TABLET BY MOUTH EVERY DAY 90 tablet 1 05/15/2024 Active Magnesium Hydroxide (2 sources) magnesium hydrox jose miguel (MILK OF MAGNESIA PO) Take 30 mL by mouth as needed (Constipation). Active 24 hr NIFEdipine 30 mg extended release oral tablet (8 sources) Dihydropyridine Calcium Channel Ross Start: 03-27-20 take 2 tablets by mouth once daily Nifedipine (Adalat Cc) 30 MG tablet extended release Active 60 MG PO Daily 0 March 27, 2015 12:39pm Start: 03-27-2015 take 60 mg by mouth once daily Nifedipine Active 60 MG ORAL Daily 0 March 27, 2015 11:39am Start: 03-25-2015 End: 03-27-2015 take 30 mg by mouth once daily Nifedipine Discontinued 30 MG ORAL Daily March 25, 2015 2:47pm March 27, 2015 11:39am nitrofurantoin, macrocrystals 25 mg / nitrofurantoin, monohydrate 75 mg oral capsule (4 sources) Nitrofuran Antibacterial Start: 04-19-2024 End: 04-26-2024 take 1 capsule by mouth twice daily nitrofurantoin monohydrate and macrocrystal (MACROBID) 100 mg capsule Indications: Urinary tract infection associated with indwelling urethral catheter, subsequent encounter Take 1 capsule by mouth two times a day for 7 days. 14 capsule 04/19/2024 04/26/2024 Active pantoprazole 40 mg delayed release oral tablet (20 sources) Proton Pump Inhibitor Start: 01-15-2024 End: 08-22-2024 take 1 tablet by mouth twice daily Start: 11-10-2019 take 1 tablet by marco once daily Pantoprazole (Protonix Tablet) 40 MG tablet Active 1 TAB PO Daily November 10, 2019 12:33pm phenylephrine hydrochloride 25 mg/ml ophthalmic solution (1 source) alpha-1 Adrenergic Agonist Start: 05-14-2023 End: 05-15-2023 PHENYLephrine 2.5 % 1 Drop (AK-DILATE, MONCHO-SYNEPHRINE) proparacaine hydrochloride 5 mg/ml ophthalmic solution (1 source) Local Anesthetic Start: 05-14-2023 End: 05-15-2023 proparacaine 0.5 % 1 Drop (ALCAINE) rosuvastatin calcium 10 mg oral tablet (20 sources) HMG-CoA Reductase Inhibitor Start: 08-25-2024 take 1 tablet by mouth once daily at bedtime rosuvastatin (CRESTOR) 10 mg tablet Take 1 tablet by mouth daily at bedtime. 90 tablet 1 08/25/2024 Active Start: 01-17-2020 End: 08-25-2024 take 1 tablet by mouth at bedtime Start: 03-27-2015 take 2 tablets by mo [facility] at bedtime Rosuvastatin Calcium (Crestor) 10 MG tablet Active 20 MG PO Bedtime 0 March 27, 2015 12:39pm Start: 03-27-2015 take 20 mg by mouth at bedtime Rosuvastatin Calcium Active 20 MG ORAL Bedtime 0 March 27, 2015 11:39am Start: 03-25-2015 End: 03-27-2015 take 1 tablet by mouth at bedtime Rosuvastatin Calcium (Crestor) 10 MG Tablet Discontinued 10 MG PO Bedtime March 25, 2015 3:47pm March 27, 2015 12:39pm Comment on above: Take 20 mg by mouth daily at bedtime. sertraline 25 mg oral tablet (11 sources) Serotonin Reuptake Inhibitor Start: 11-10-2019 take 1 tablet by mouth once daily Sertraline Hcl (Zoloft) 25 MG tablet Active 1 TAB PO Daily November 10, 2019 12:33pm Start: 09-14-2019 End: 04-07-2023 sertraline (ZOLOFT) 25 mg ta blet Take 25 mg by mouth. TAKING 0.5 TABS 0 09/14/2019 04/07/2023 Discontinued Comment on above: Take 25 mg by mouth. TAKING 0.5 TABS sulfamethoxazole 800 mg / trimethoprim 160 mg oral tablet (15 sources) Dihydrofolate Reductase Inhibitor Antibacterial, Sulfonamide Antimicrobial Start: 09-27-2024 Start: 09-27-2024 Start: 09-22-2024 End: 09-29-2024 Start: 01-15-2024 End: 02-22-2024 Sulfamethoxazole-Trimethopri m 800-160 mg Tablet Discontinued 0.5 {tbl} PO TWICE DAILY WITH MEALS 2 2 0 January 15, 2024 12:00am February 22, 2024 10:13am Start: 01-15-2024 End: 02-22-2024 Start: 10-20-2023 End: 10-27-2023 take 1 tablet by mouth twice daily sulfamethoxazole-trimethoprim (BACTRIM DS) 800-160 mg per tablet Indications: Urinary tract infection associated with indwelling urethral catheter, initial encounter ([facility]) ([facility]) Take 1 tablet by mouth two times a day for 7 days. 14 tablet 0 10/20/2023 10/27/2023 Active Start: 08-05-2023 End: 08-12-2023 take 1 tablet by mouth twice daily sulfamethoxazole-trimethoprim (BACTRIM DS) 800-160 mg per tablet Indications: Urinary tract infection associated with indwelling urethral catheter, subsequent encounter Take 1 tablet by mouth two times a day for 7 days. 14 tablet 0 08/05/2023 08/12/2023 Active Start: 06-28-2020 take 1 tablet by marco th twice daily Sulfamethoxazole/Trimethoprim (Sulfamethoxazole-Tmp Ds Tablet) 800-160 mg tablet Active 1 TAB PO 2 times per day June 28, 2020 9:03am traMADol hydrochloride 50 mg oral tablet (2 sources) Opioid Agonist take 1 tablet by mouth every twelve hours as needed traMADol (ULTRAM) 50 mg tablet Take 50 mg by mouth two times a day as needed for pain. Active triamcinolone acetonide 1 mg/ml topical cream (2 sources) Corticosteroid triamcinolone acetonide (KENALOG) 0.1 % cream Apply to affected area two times a day. Active tropicamide 10 mg/ml ophthalmic solution (1 source) Anticholinergic Start: 4 End: 4 tropicamide 1 % 1 Drop (MYDRIACYL) Vitamin B Complex (4 sources) Start: 6 Vitamin B Complex Active 1 EA ORAL Daily May 06, 2015 11:01am Start: 05-06-2015 End: 01-29-2016 Vitamin B Complex Discontinu ed 1 EA ORAL Daily May 06, 2015 11:01am January 29, 2016 4:30pm Vitamin B Complex (B-100 Complex) 1 EACH tablet (8 sources) Start: 05-06-2015 Vitamin B Comp flaca (B-100 Complex) 1 EACH tablet Active 1 EA PO Daily May 06, 2015 12:01pm Start: 05-06-2015 End: 01-29-2016 Vitamin B Complex (B-100 Com plex) 1 EACH tablet Discontinued 1 EA PO Daily May 06, 2015 12:01pm January 29, 2016 4:30pm Start: 05-06-2015 Vitamin B Comp flaca (B-100 Complex) 1 EACH tablet Active 1 EA PO Daily May 06, 2015 11:01am Start: 05-06-2015 End: 01-29-2016 Vitamin B Complex (B-100 Com plex) 1 EACH tablet Discontinued 1 EA PO Daily May 06, 2015 11:01am January 29, 2016 4:30pm Completed/Discontinued Medications Medication Drug Class(es) Dates Sig (Normalized) Sig (Original) [id number] 200 actuat albuterol 0.09 mg/actuat metered dose inhaler (20 sources) beta2-Adrenergic Agonist Start: 02-22-2024 End: 09-27-2024 Albuterol Sulfate 90 mcg/actuation HFA aerosol inhaler Discontinued 1 - 2 NMA INHALATION 4 TIMES DAILY as needed for wheezing February 22, 2024 1:00am September 27, 2024 1:16pm Start: 02-22-2024 End: 09-27-2024 Start: 05-07-2023 End: 12-10-2023 take 1-2 puff(s) by inhalation four times daily as needed for wheezing albuterol HFA (PROVENTIL HFA) 90 mcg/actuation inhaler Indications: Chronic obstructive pulmonary disease, unspecified COPD type ([facility]) Inhale 1-2 Puffs as instructed four times a day as needed for wheezing/shortness of breath. 6.7 g 2 12/10/2023 Active Comment on above: Inhale 1-2 Puffs as instructed four times a day as needed for wheezing/shortness of breath. albuterol 0.833 mg/ml / ipratropium bromide 0.167 mg/ml inhalation solution (9 sources) Anticholinergic, beta2-Adrenergic Agonist Start: End: take 1 mL by inhalation every six hours Ipratropium-Albute rol 0.5 mg-3 mg(2.5 mg base)/3 mL Solution For Nebulization Discontinued 3 mL INHALATION EVERY 6 HOURS July 13, 2024 12:00am August 14, 2024 3:15pm respiratory Start: 07-07-2024 End: 08-14-2024 amoxicillin 875 mg / clavulanate 125 mg oral tablet (2 sources) Penicillin-class Antibacterial Start: 08-03-2023 End: 08-05-2023 take 1 tablet by mouth every twelve hours amoxicillin-clavulanate potassium (AUGMENTIN) 875-125 mg per tablet Indications: Urinary tract infection associated with indwelling urethral catheter, initial encounter ([facility]) ([facility]) Take 1 tablet by mouth every 12 hours for 7 days. 14 tablet 0 08/03/2023 08/05/2023 Discontinued apixaban 5 mg oral tablet (20 sources) Factor Xa Inhibitor Start: 06-26-2023 End: 02-22-2024 take 2 tablets by mouth twice daily, then take 1 tablet by mouth twice daily Apixaban (Eliquis) 5 mg Tablet Discontinued 10 mg PO TWICE A DAY 66 0 June 26, 2023 12:00am February 22, 2024 10:14am Take 2 tabs twice a day for a total of 24 pills, then reduce to 1 pill twice a day thereafter-start the evening of 06/26/2023 Start: 06-26-2023 End: 08-14-2024 take 1 tablet by mouth twice daily Apixaban (Eliquis) 5 mg Tablet Discontinued 5 mg PO TWICE A DAY February 22, 2024 1:00am August 14, 2024 3:04pm blood thinner On Hold: Hold at least for 1 week. Severe anemia Comment on above: Apixaban (Eliquis) 5 mg Tablet Active 10 MG PO TWICE A DAY June 26, 2023 12:00am Take 2 tabs twice a day for a total of 24 pills, then reduce to 1 pill twice a day thereafter-start the evening of 06/26/2023 aspirin 81 mg delayed release oral tablet (20 sources) Platelet Aggregation Inhibitor, Nonsteroidal Anti-inflammatory Drug Start: 11-21-19 End: 08-15-19 take 1 tablet by mouth once daily Aspirin 81 mg tablet,delayed release (DR/EC) Discontinued 81 mg PO DAILY July 01, 2024 12:00am August 14, 2024 3:04pm preventative On Hold: Hold for severe anemia. Comment on above: Take 1 tablet by marco th once daily. atorvastatin 40 mg oral tablet (4 sources) HMG-CoA Reductase Inhibitor Start: 07-14-19 End: 08-15-19 take 1 tablet by mouth at bedtime Atorvastatin 40 mg tablet Discontinued 40 mg PO AT BEDTIME July 13, 2024 12:00am August 14, 2024 3:06pm cholesterol Start: 07-13-2024 End: 08-14-2024 cephalexin 250 mg oral capsule (9 sources) Cephalosporin Antibacterial Start: 06-26-2023 End: 01-10-2024 take 1 capsule by mouth twice daily, then take 4 capsules by mouth in the evening Cephalexin 250 mg capsule Discontinued 250 mg PO TWICE A DAY 11 June 26, 2023 12:00am January 10, 2024 11:12pm 1 twice a day for 11 doses, then discontinue, start 06/26/2019 4 in the evening Start: 04-29-2020 End: 06-04-2020 take 1 capsule by mouth three times daily Cephalexin (Keflex) 500 mg capsule Discontinued 500 MG PO 3 times per day April 29, 2020 1:50pm June 04, 2020 9:43am ciprofloxacin 500 mg oral tablet (4 sources) Quinolone Antimicrobial Start: 04-12-2020 End: 06-04-2020 take 1 tablet by mouth twice daily Ciprofloxacin Hcl (Cipro) 500 mg tablet Discontinued 500 MG PO 2 times per day April 12, 2020 2:39pm June 04, 2020 9:44am clopidogrel 75 mg oral tablet (15 sources) [id number] Platelet Inhibitor Start: 04-02-2020 End: 04-07-2023 take 1 tablet by mouth once daily clopidogrel (PLAVIX) 75 mg tablet Take 75 mg by mouth once daily. 0 06/14/2020 04/07/2023 Discontinued Start: 03-27-2015 End: 11-15-2019 take 1 tablet by mouth once daily Clopidogrel Bisulfate (Plavix) 75 MG Tablet Discontinued 75 MG PO Daily 0 March 27, 2015 12:38pm November 15, 2019 1:42pm Comment on above: Take 75 mg by mouth once daily. docusate sodium 10 mg/ml oral suspension (5 sources) Start: 10-18-2020 End: 04-07-2023 take 10 mL by mouth twice daily docusate (COLACE) 10 mg/mL liqd Take 10 mL by mouth twice daily. 0 10/18/2020 04/07/2023 Discontinued Comment on above: Take 10 mL by mouth twice daily. 0.8 ml enoxaparin sodium 100 mg/ml prefilled syringe (6 sources) Low Molecular Weight Heparin Start: 11-15-2019 End: 04-02-2020 Enoxaparin Sodium (Lovenox) 80 MG/0.8 ML syringe Discontinued 78 MG SQ Q12H 60 November 15, 2019 1:31pm April 02, 2020 4:16pm FERROUS SULFATE, BULK, MISC (20 sources) End: 08-25-2024 FERROUS SULFATE, BULK, MISC 08/25/2024 Discontinued FERROUS SULFATE, BULK, MISC Active FERROUS SULFATE, BULK, MISC glyBURIDE 5 mg oral tablet (20 sources) Sulfonylurea Start: 12-28-2019 End: 04-07-2023 take 1 tablet by mouth twice daily, then take 0.5 tablet by mouth in the morning glyBURIDE (DIABETA) 5 mg tablet Take 2.5-5 mg by mouth twice daily. TAKE 1 TABLET BY MOUTH IN THE MORNING AND 1/2 TABLET AT NIGHT 0 12/28/2019 04/07/2023 Discontinued Start: 03-27-2015 take 5 mg by mouth o nce daily in the morning Glyburide Active 5 MG PO Every morning 0 March 27, 2015 12:39pm Start: 03-25-2015 End: 03-27-2015 take 1 tablet by mouth at bedtime Glyburide (Diabeta) 2.5 MG tablet Active 2.5 MG PO Bedtime 0 March 27, 2015 12:36pm Comment on above: Take 2.5-5 mg by marco th twice daily. TAKE 1 TABLET BY MOUTH IN THE MORNING AND 1/2 TABLET AT NIGHT insulin detemir 100 unt/ml injectable solution (5 sources) Insulin Analog Start: 0 End: 4 insulin detemir U-100 (LEVEMIR) 100 unit/mL injection 20 Units every morning. 0 09/08/2019 04/07/2023 Discontinued Comment on above: 20 Units every morni ng. linezolid 600 mg oral tablet (5 sources) Oxazolidinone Antibacterial Start: 5 End: 5 take 1 tablet by mouth twice daily Linezolid (Zyvox) 600 mg tablet Discontinued 600 mg PO TWICE A DAY 18 0 July 07, 2024 12:00am July 20, 2024 2:29pm uti lisinopril 5 mg oral tablet (20 sources) Angiotensin Converting Enzyme Inhibitor Start: 4 End: 4 take 1 tablet by mouth once daily lisinopril (ZESTRIL) 5 mg tablet Indications: Primary hypertension Take 1 tablet by mouth once daily. 90 tablet 1 05/07/2023 08/03/2023 Discontinued Start: 04-07-2023 take 1 tablet by marco th once daily lisinopril (ZESTRIL) 5 mg tablet Indications: Primary hypertension Take 1 tablet by mouth once daily. 0 04/07/2023 Active Start: 10-25-2019 End: 04-07-2023 take 1 tablet by mouth once daily lisinopril (ZESTRIL, PRINIVIL) 20 mg tablet Take 20 mg by mouth once daily. 0 10/25/2019 04/07/2023 Discontinued Start: 03-27-2015 take 1 tablet by marco th once daily Lisinopril (Zestril Tablet) 5 MG tablet Active 5 MG PO Daily March 27, 2015 12:38pm Comment on above: Take 20 mg by mouth once daily. Take 1 tablet by marco th once daily. metFORMIN hydrochloride 1000 mg oral tablet (12 sources) Biguanide Start: 5 End: 5 take 1 tablet by mouth once daily Metformin Hcl (Glucophage) 1,000 MG Tablet Discontinued 1000 MG PO Daily March 25, 2015 3:47pm March 27, 2015 12:35pm Start: 03-25-2015 End: 11-15-2019 take 1 tablet by mouth at bedtime Metformin Hcl (Glucophage) 500 MG Tablet Discontinued 500 MG PO Bedtime March 25, 2015 3:47pm November 15, 2019 1:41pm Nifedipine (Adalat Cc) 30 MG Tablet.Er (4 sources) Start: 03-25-2015 End: 03-27-2015 take 1 tablet by mouth once daily Nifedipine (Adalat Cc) 30 MG Tablet.Er Discontinued 30 MG PO Daily March 25, 2015 3:47pm March 27, 2015 12:39pm Start: 03-25-2015 End: 03-27-2015 take 1 tablet by mouth once daily Nifedipine (Adalat Cc) 30 MG Tablet.Er Discontinued 30 MG PO Daily March 25, 2015 2:47pm March 27, 2015 11:39am nystatin 100 unt/mg topical powder (10 sources) Polyene Antifungal Start: 07-07-2024 End: 08-14-2024 Nystatin 100,000 unit/mL suspension Discontinued [id number] U PO DAILY 60 0 July 07, 2024 12:00am August 14, 2024 3:05pm thrush administer 1/2 of dose in each side of the mouth Start: 07-07-2024 End: 08-14-2024 Nystatin (Nyamyc) 100,000 un it/gram Powder Discontinued 1 NMA TOPICAL THREE TIMES A DAY 0 0 July 07, 2024 12:00am August 14, 2024 3:05pm groin Please contact the information source for Protocol details. Start: 07-07-2024 End: 08-14-2024 10 actuat olodaterol 0.0025 mg/actuat / tiotropium 0.0025 mg/actuat inhalation spray (20 sources) Anticholinergic, beta2-Adrenergic Agonist Start: 05-07-2023 End: 12-10-2023 tiotropium-olodaterol (STIOLTO RESPIMAT) 2.5-2.5 mcg/actuation inhaler Indications: Chronic obstructive pulmonary disease, unspecified COPD type (HCC) Inhale 2 Puffs as instructed once daily. 4 g 2 12/10/2023 12/10/2023 Discontinued Comment on above: Inhale 2 Puffs as in structed once daily. 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, acquired terazosin 5 mg oral capsule (11 sources) alpha-Adrenergic Ross Start: 12-01-2019 End: 04-07-2023 take 1 capsule by mouth once daily terazosin (HYTRIN) 5 mg capsule TAKE 1 CAP (5 MG TOTAL) BY MOUTH EVERY NIGHT 0 12/01/2019 04/07/2023 Discontinued Comment on above: TAKE 1 CAP (5 MG TOT AL) BY MOUTH EVERY NIGHT Tuberculin Ppd 1 unit/0.1 mL solution (3 sources) Start: 07-13-2024 End: 08-14-2024 Tuberculin Ppd 1 unit/0.1 mL solution Discontinued 0.1 TB unit ID AT BEDTIME July 13, 2024 12:00am August 14, 2024 3:04pm health maintenance stop on 07/14/2024 Start: 07-13-2024 End: 08-14-2024 Tuberculin Ppd 1 unit/0.1 mL solution Discontinued 0.1 TB unit ID AT BEDTIME July 13, 2024 12:00am August 14, 2024 3:04pm stop on 07/14/2024 Start: 07-13-2024 Tuberculin Ppd 1 unit/0.1 mL solution Active 0.1 TB unit ID AT BEDTIME July 13, 2024 12:00am stop on 07/14/2024 warfarin sodium 5 mg oral tablet (6 sources) Vitamin K Antagonist Start: 11-15-2019 End: 04-02-2020 take 1 tablet by mouth once daily Warfarin Sodium (Coumadin) 5 MG tablet Discontinued 5 MG PO Daily November 15, 2019 1:37pm April 02, 2020 3:18pm (3 sources) Start: 07-13-2024 End: 08-14-2024 Start: 06-26-2023 End: 07-07-2024 Start: 06-22-2023 End: 06-26-2023 Problems Active Problems Problem Classification Problem Date Documented Da te Episodic/Chronic Acquired foot deformities (2 sources) Acquired right hallux valgus; Translations: [Hallux valgus (acquired), right foot] 07-06-2023 Chronic Acute and unspecified renal failure (10 sources) Acute renal failure syndrome; Translations: [Acute kidney failure, unspecified] 06-22-2023 Episodic Acute cerebrovascular disease (20 sources) Lacunar infarction; Translations: [Cerebral infarction] Onset: 0 09-23-2020 Chronic Aortic; peripheral; and visceral artery aneurysms (20 sources) Abdominal aortic aneurysm without rupture; Translations: [AAA (abdominal aortic aneurysm) without rupture] Onset: 4 Resolved: 0 09-23-2020 Chronic Biliary tract disease (8 sources) Biliary calculus; Translations: [Calculus of gallbladder without cholecystitis without obstruction] 06-23-2023 Episodic Blindness and vision defects (2 sources) Bilateral hyperopia of eyes; Translations: [Hypermetropia, bilateral] 05-14-2023 Episodic Cancer of colon (10 sources) History of malignant neoplasm of colon; Translations: [Personal history of other malignant neoplasm of large intestine] 05-27-2023 Episodic Cancer of rectum and anus (20 sources) Malignant tumor of rectum; Translations: [Malignant neoplasm of rectum] Onset: 1 10-18-2020 Chronic Cardiac dysrhythmias (1 source) Tachycardia, unspecified; Translations: [Tachycardia] Onset: 5 Episodic Cataract (1 source) Bilateral senile combined form cataracts of eyes; Translations: [Combined forms of age-related cataract, bilateral] 05-14-2023 Chronic Chronic kidney disease (20 sources) Chronic kidney disease stage 3; Translations: [CKD (chronic kidney disease) stage 3, GFR 30-59 ml/min] 03-25-2021 Chronic Chronic kidney disease (2 sources) Chronic kidney disease; Translations: [Stage 3 chronic kidney disease, unspecified whether stage 3a or 3b CKD (HCC)] Onset: 1 Chronic obstructive pulmonary disease and bronchiectasis (7 sources) Chronic obstructive lung disease; Translations: [Chronic obstructive pulmonary disease, unspecified] Onset: 5 08-03-2023 Chronic Coagulation and hemorrhagic disorders (1 source) Thrombocytopenic disorder; Translations: [Thrombocytopenia, unspecified] 09-17-2023 Chronic Complication of device; implant or graft (20 sources) Urinary tract infectious disease; Translations: [Infection and inflammatory reaction due to indwelling urethral catheter, initial encounter] Onset: 1 10-18-2020 Episodic Coronary atherosclerosis and other heart disease (20 sources) Coronary arteriosclerosis; Translations: [Atherosclerotic heart disease of [place] coronary artery without angina pectoris] Onset: 4 10-18-2020 Chronic Crushing injury or internal injury (6 sources) Injury of kidney; Translations: [Acute kidney failure, unspecified] Episodic Deficiency and other anemia (8 sources) Anemia; Translations: [Anemia, unspecified] 07-13-2024 Episodic Diabetes mellitus with complications (20 sources) Type 2 diabetes mellitus; Translations: [Type 2 diabetes mellitus with other circulatory complications] Onset: 1 03-25-2021 Chronic Diabetes mellitus without complication (1 source) Diabetes mellitus type 2 without retinopathy; Translations: [Type 2 diabetes mellitus without complications] 05-14-2023 Chronic Diseases of white blood cells (12 sources) Leukocytosis; Translations: [Elevated white blood cell count, unspecified] Onset: 5 07-01-2024 Chronic Disorders of lipid metabolism (20 sources) Hyperlipidemia; Translations: [Other hyperlipidemia] 09-25-2020 Chronic Esophageal disorders (4 sources) Eosinophilic esophagitis; Translations: [Eosinophilic esophagitis] Onset: 5 04-07-2024 Chronic Essential hypertension (20 sources) Essential hypertension; Translations: [Essential (primary) hypertension] Onset: 1 10-18-2020 Chronic Fluid and electrolyte disorders (20 sources) Disorder of electrolytes; Translations: [Other disorders of electrolyte and fluid balance, not elsewhere classified] Onset: Resolved: 1 10-02-2020 Episodic Hemorrhoids (20 sources) Hemorrhoids; Translations: [Unspecified hemorrhoids] 02-13-2020 Episodic Hyperplasia of prostate (20 sources) Benign prostatic hyperplasia; Translations: [Benign prostatic hyperplasia without lower urinary tract symptoms] 10-18-2020 Chronic Inflammation; infection of eye (except that caused by tuberculosis or sexually transmitteddisease) (1 source) Bilateral punctate keratitis of eyes; Translations: [Punctate keratitis, bilateral] 05-14-2023 Chronic Late effects of cerebrovascular disease (1 source) Cerebral infarction; Translations: [Unspecified sequelae of cerebral infarction] Chronic Malaise and fatigue (7 sources) Asthenia; Translations: [Weakness] Onset: 5 Episodic Mycoses (6 sources) Onychomycosis; Translations: [Tinea unguium] Onset: 5 07-06-2023 Episodic Nausea and vomiting (11 sources) Vomiting; Translations: [Vomiting, unspecified] 07-01-2024 Episodic Noninfectious gastroenteritis (8 sources) Enteritis of small intestine; Translations: [Noninfective gastroenteritis and colitis, unspecified] 06-23-2023 Episodic Nutritional deficiencies (20 sources) Moderate protein energy malnutrition; Translations: [Moderate protein-calorie malnutrition] Onset: 1 10-18-2020 Chronic Occlusion or stenosis of precerebral arteries (20 sources) Symptomatic carotid artery stenosis; Translations: [Occlusion and stenosis of unspecified carotid artery] Onset: 0 02-14-2020 Chronic Other aftercare (1 source) Post-discharge follow-up; Translations: [Encounter for follow-up examination after completed treatment for conditions other than malignant neoplasm] 08-27-2024 Episodic Other circulatory disease (20 sources) History of aortofemoral bypass surgery; Translations: [Presence of other vascular implants and grafts] Onset: 0 09-23-2020 Chronic Other circulatory disease (12 sources) Arteriovenous fistula; Translations: [Arteriovenous fistula, acquired] 07-04-2024 Chronic Other circulatory disease (1 source) Presence of other vascular implants and grafts; Translations: [H/O aorto-femoral bypass] Onset: 1 Chronic Other circulatory disease (1 source) Arteriovenous fistula, acquired; Translations: [Arteriovenous fistula, acquired] Onset: 5 Chronic Other circulatory disease (1 source) Respiratory crackles; Translations: [Other specified symptoms and signs involving the circulatory and respiratory systems] 09-06-2024 Episodic Other connective tissue disease (2 sources) Swelling of left lower limb; Translations: [Other specified soft tissue disorders] 05-27-2023 Episodic Other connective tissue disease (5 sources) Pain of toe of left foot; Translations: [Pain in left toe(s)] 07-06-2023 Episodic Other connective tissue disease (5 sources) Pain of toe of right foot; Translations: [Pain in right toe(s)] 07-06-2023 Episodic Other connective tissue disease (1 source) Swelling of lower limb; Translations: [Other specified soft tissue disorders] 12-11-2023 Episodic Other connective tissue disease (1 source) Other specified soft tissue disorders; Translations: [Leg swelling] Onset: 5 Episodic Other connective tissue disease (1 source) Pain in left toe(s); Translations: [Pain in toe of left foot] Onset: 5 Episodic Other connective tissue disease (1 source) Pain in right toe(s); Translations: [Pain in toe of right foot] Onset: 5 Episodic Other diseases of kidney and ureters (3 sources) Hydronephrosis; Translations: [Unspecified hydronephrosis] 08-27-2024 Episodic Other gastrointestinal disorders (20 sources) Colostomy present; Translations: [Colostomy status] Onset: 1 10-18-2020 Chronic Other gastrointestinal disorders (1 source) Oropharyngeal dysphagia; Translations: [Dysphagia, oropharyngeal phase] 08-03-2023 Episodic Other inflammatory condition of skin (20 sources) Psoriasis; Translations: [Psoriasis, unspecified] 09-23-2020 Chronic Other injuries and conditions due to external causes (8 sources) Aspiration into respiratory tract; Translations: [Unspecified foreign body in respiratory tract, part unspecified causing other injury, initial encounter] 06-23-2023 Episodic Other injuries and conditions due to external causes (2 sources) Unspecified foreign body in respiratory tract, part unspecified causing other injury, initial encounter; Translations: [Foreign body in respiratory tree, unspecified] 06-23-2023 Episodic Other injuries and conditions due to external causes (1 source) Local infection of wound; Translations: [Other injury of unspecified body region, initial encounter] 08-22-2024 Episodic Other male genital disorders (2 sources) Edema of scrotum; Translations: [Other specified disorders of the male genital organs] 09-27-2024 Episodic Other nervous system disorders (18 sources) Disorder of brain; Translations: [Other encephalopathy] 06-22-2023 Chronic Other nervous system disorders (2 sources) Other encephalopathy; Translations: [Other encephalopathy] 06-23-2023 Chronic Other nervous system disorders (6 sources) Metabolic encephalopathy; Translations: [Metabolic encephalopathy] Onset: 5 10-27-2024 Chronic Other nervous system disorders (1 source) Encephalopathy, unspecified; Translations: [Encephalopathy, unspecified] Onset: 5 Chronic Other nutritional; endocrine; and metabolic disorders (20 sources) Obese class I; Translations: [Obesity, unspecified] Onset: 1 10-18-2020 Chronic Other nutritional; endocrine; and metabolic disorders (6 sources) H/O: hypothyroidism; Translations: [Personal history of other endocrine, nutritional and metabolic disease] 01-10-2024 Episodic Other upper respiratory disease (4 sources) Allergic rhinitis due to pollen; Translations: [Allergic rhinitis due to pollen] 09-10-2023 Chronic Peripheral and visceral atherosclerosis (20 sources) Intermittent claudication due to atherosclerosis of artery of limb; Translations: [Atherosclerosis of [place] arteries of extremities with intermittent claudication, unspecified extremity] Onset: 4 01-27-2015 Chronic Residual codes; unclassified (1 source) Obstructive sleep apnea syndrome; Translations: [Obstructive sleep apnea (adult) (pediatric)] 04-07-2024 Chronic Residual codes; unclassified (1 source) Obstructive sleep apnea (adult) (pediatric); Translations: [JANELL (obstructive sleep apnea)] Onset: 5 Chronic Residual codes; unclassified (6 sources) Altered mental status; Translations: [Altered mental status, unspecified] Episodic Residual codes; unclassified (6 sources) History of cardiovascular surgery; Translations: [Other specified postprocedural states] 02-09-2024 Episodic Comment on above: R CEA Residual codes; unclassified (6 sources) Acute confusion; Translations: [Disorientation, unspecified] 01-10-2024 Episodic Residual codes; unclassified (2 sources) Edema of left lower limb; Translations: [Localized edema] 09-27-2024 Episodic Residual codes; unclassified (2 sources) Disorientation, unspecified; Translations: [Confusion] Onset: 5 Episodic Respiratory failure; insufficiency; arrest (adult) (10 sources) Acute hypoxemic respiratory failure; Translations: [Acute respiratory failure with hypoxia] 06-22-2023 Episodic Screening and history of mental health and substance abuse codes (20 sources) Ex-smoker; Translations: [Personal history of nicotine dependence] 09-23-2020 Episodic Thyroid disorders (20 sources) Hypothyroidism; Translations: [Hypothyroidism, unspecified] Onset: 1 10-18-2020 Chronic Unclassified (3 sources) After discharge from longterm facility Unclassified (3 sources) 2 to 4 weeks for repeat EGD Unclassified (1 source) Patient encounter status 08-27-2024 Unclassified (1 source) Abdominal aortic aneurysm (AAA) without rupture, unspecified part; Translations: [Abdominal aortic aneurysm (AAA) without rupture, unspecified part] Onset: 1 Unclassified (1 source) 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 rupture, unspecified part; Translations: [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 rupture, unspecified part] Onset: 1 Unclassified (1 source) Abdominal aortic aneurysm (AAA) without rupture, unspecified part (HCC); Translations: [Abdominal aortic aneurysm (AAA) without rupture, unspecified part (HCC)] Onset: 1 Unclassified (1 source) Acidosis, unspecified; Translations: [Acidosis, unspecified] Onset: 5 Past or Other Problems Problem Classification Problem Date Documented Da te Episodic/Chronic Acute posthemorrhagic anemia (20 sources) Acute posthemorrhagic anemia; Translations: [Acute posthemorrhagic anemia] Onset: 4 Resolved: 5 03-24-2021 Episodic Cancer of rectum and anus (8 sources) History of malignant neoplasm of rectum; Translations: [Personal history of other malignant neoplasm of rectum, rectosigmoid junction, and anus] Onset: 5 04-07-2023 Episodic Complications of surgical procedures or medical care (20 sources) Postoperative retention of urine; Translations: [Other postprocedural complications and disorders of genitourinary system] Onset: 4 Resolved: 1 10-18-2020 Episodic Deficiency and other anemia (1 source) Anemia, unspecified; Translations: [Anemia, unspecified] Onset: 5 Episodic Diabetes mellitus without complication (20 sources) Metabolic stress hyperglycemia; Translations: [Hyperglycemia, unspecified] Onset: 4 Resolved: 5 03-24-2021 Episodic Gastrointestinal hemorrhage (11 sources) Acute gastrointestinal hemorrhage; Translations: [Gastrointestinal hemorrhage, unspecified] Onset: 5 07-13-2024 Episodic Genitourinary symptoms and ill-defined conditions (20 sources) Retention of urine; Translations: [Retention of urine, unspecified] Onset: 1 02-05-2023 Episodic Immunizations and screening for infectious disease (1 source) Encounter for immunization; Translations: [Encounter for immunization] Onset: 5 Episodic Other aftercare (20 sources) Peripherally inserted central venous catheter in situ; Translations: [Encounter for adjustment and management of vascular access device] Onset: 1 Resolved: 1 10-18-2020 Episodic Other aftercare (2 sources) long-term (current) use of insulin; Translations: [Type 2 diabetes mellitus with other circulatory complication, with long-term current use of insulin ([facility])] Onset: 1 Episodic Other circulatory disease (20 sources) Disorder of carotid artery; Translations: [Disorder of arteries and arterioles, unspecified] Onset: 1 Resolved: 1 09-24-2020 Chronic Other circulatory disease (20 sources) History of cerebrovascular accident; Translations: [Personal history of transient ischemic attack (TIA), and cerebral infarction without residual deficits] Onset: 1 10-18-2020 Episodic Other circulatory disease (20 sources) Cerebral infarction; Translations: [Personal history of transient ischemic attack (TIA), and cerebral infarction without residual deficits] Resolved: 0 03-24-2021 Episodic Other circulatory disease (20 sources) Idiopathic hypotension; Translations: [Idiopathic hypotension] Onset: 1 Resolved: 1 10-18-2020 Episodic Other diseases of kidney and ureters (1 source) Unspecified hydronephrosis; Translations: [Hydronephrosis of right kidney] Onset: 5 Episodic Other gastrointestinal disorders (1 source) Dysphagia, unspecified; Translations: [Dysphagia, unspecified] Onset: 5 Episodic Other injuries and conditions due to external causes (1 source) Other injury of unspecified body region, initial encounter; Translations: [Wound infection] Onset: 5 Episodic Other lower respiratory disease (20 sources) Hypoxia; Translations: [Hypoxemia] Onset: 4 Resolved: 4 03-24-2021 Episodic Other nervous system disorders (20 sources) Acute postoperative pain; Translations: [Other acute postprocedural pain] Onset: 4 03-24-2021 Episodic Other nutritional; endocrine; and metabolic disorders (20 sources) Hypoalbuminemia; Translations: [Other disorders of plasma-protein metabolism, not elsewhere classified] Onset: 1 Resolved: 1 09-30-2020 Chronic Other screening for suspected conditions (not mental disorders or infectious disease) (9 sources) Patient encounter status; Translations: [Encounter for screening for eye and ear disorders] Onset: 5 04-07-2023 Episodic Phlebitis; thrombophlebitis and thromboembolism (13 sources) Deep venous thrombosis; Translations: [Acute embolism and thrombosis of unspecified deep veins of unspecified lower extremity] Onset: 5 06-24-2023 Episodic Residual codes; unclassified (20 sources) Delirium; Translations: [Disorientation, unspecified] Onset: Resolved: 1 10-18-2020 Episodic Residual codes; unclassified (20 sources) Feeding problem; Translations: [Other specified health status] Onset: Resolved: 1 10-13-2020 Episodic Residual codes; unclassified (1 source) Edema, unspecified; Translations: [Edema, unspecified] Onset: 5 Episodic Residual codes; unclassified (1 source) Other specified postprocedural states; Translations: [Other specified postprocedural states] Onset: 5 Episodic Septicemia (except in labor) (20 sources) Sepsis; Translations: [Sepsis, unspecified organism] Onset: 5 06-22-2023 Episodic Skin and subcutaneous tissue infections (1 source) Local infection of the skin and subcutaneous tissue, unspecified; Translations: [Wound infection] Onset: 5 Episodic Substance-related disorders (20 sources) Smoker; Translations: [Nicotine dependence, unspecified, uncomplicated] Resolved: 5 03-24-2021 Chronic Urinary tract infections (20 sources) Urinary tract infection, site not specified; Translations: [Urinary tract infection, site not specified] Onset: 5 06-23-2023 Episodic Results Test Name Value Interpretation Reference Range Facility [facility] 01-09-2025 CNOV Office Visit (UROLWS ) EMELIA JOHNSON ([id number]) 1950 M Date Time Provider Department 01/09/25 9:30 AM ACEVEDO, GUTIERREZ UROLWS During your visit today, we recorded the following information about you: Gutierrez Acevedo PA-C 01/09/2025 12:50 PM Signed [facility] NEW PATIENT CLINIC NOTE (M) Note was generated by [employer] and edited as appropriate SERVICE DATE: January 09, 2025 NAME: Emelia Johnson GENDER: male CHIEF COMPLAINT: The patient is a 74-year-old male with scrotal and lower extremity lymphedema, presenting for evaluation of persistent scrotal and leg edema. HISTORY OF PRESENT ILLNESS: The patient is a 74-year-old male with scrotal and lower extremity lymphedema, presenting for evaluation of persistent scrotal and leg edema. The patient is a 74-year-old male with a history of scrotal and leg edema, presenting for follow-up. Scrotal and Leg Edema: - Edema in the scrotum and leg noted since September. - Recent scrotal ultrasound showed no hydrocele or varicocele; findings included thickness and edema in the scrotal wall. - No testicular pain reported. - Scheduled to see vascular medicine for further evaluation. Urinary Tract Infection: - History of UTI on September 27, treated with Bactrim. - No recurrent urinary issues since treatment. - Denies hematuria or fever. - Indwelling catheter in place, managed by facility staff. LABS: No results found for: "PSA" Creatinine Date Value Ref Range Status 10/30/2024 1.47 (H) 0.73 - 1.22 mg/dL Final 10/29/2024 1.37 (H) 0.73 - 1.22 mg/dL Final 10/28/2024 1.41 (H) 0.73 - 1.22 mg/dL Final No results found for: TESTOST Hematocrit (%) Date Value 10/30/2024 35.6 10/29/2024 38.5 10/28/2024 38.3 10/18/2020 26.3 10/17/2020 26.8 10/16/2020 26.6 No results found for: "PSA" MEDICATIONS: HYDROcodone-acetaminophen (NORCO) 5-325 mg per tablet Take 1 tablet by mouth every 8 hours as needed. magnesium oxide (MAG-OX) 400 mg (241.3 mg magnesium) tablet Take 400 mg by mouth two times a day. senna-docusate (SENNA PLUS) 8.6-50 mg per tablet Take 2 tablets by mouth two times a day. levothyroxine (SYNTHROID) 175 mcg tablet Take 1 tablet by mouth daily before breakfast. (Patient taking differently: Take 150 mcg by mouth daily before breakfast. 150 MCG by mouth in the morning every Wednesday, Wednesday, Wednesday, , Wednesday, Wednesday. On Wednesday take 75 MCG by mouth.) acetaminophen 325 mg cap Take 650 mg by mouth every 4 hours as needed for pain or fever (specify temp.) (Oral or supository). aluminum-magnesium hydroxide-simethicone (MAALOX,MYLANTA,MAG-AL PLUS) 200-200-20 mg/5 mL suspension Take 30 mL by mouth every 6 hours as needed. (Patient taking differently: Take 30 mL by mouth every 4 hours as needed. 225-200MG/5ML) ergocalciferol 50,000 unit capsule (VITAMIN D2, DRISDOL) Take 50,000 Units by mouth one time a week. fenofibrate (LOFIBRA) 200 mg capsule Take 200 mg by mouth daily with breakfast. glucagon 1 mg/0.2 mL syrg Inject 1 mL subcutaneously as needed (For symptomatic hypoglycemia). dextrose (GLUCOSE GEL PO) Take by mouth as needed (hypoglycemia). GUAIFENESIN PO Take 10 mL by mouth every 4 hours as needed (cough, congestion). furosemide (LASIX) 20 mg tablet Take 20 mg by mouth two times a day. (Patient taking differently: Take 20 mg by mouth once daily.) magnesium hydroxide (MILK OF MAGNESIA PO) Take 30 mL by mouth as needed (Constipation). traMADol (ULTRAM) 50 mg tablet Take 50 mg by mouth two times a day as needed for pain. (Patient taking differently: Take 50 mg by mouth every 6 hours as needed for pain.) rosuvastatin (CRESTOR) 10 mg tablet Take 1 tablet by mouth daily at bedtime. bwjskogsprx-eznaalcmu-qmlfh ter (TRELEGY ELLIPTA) 100-62.5-25 mcg inhalation powder Inhale 1 puff as instructed once daily. linaGLIPtin (TRADJENTA) 5 mg tab Take 1 tablet by mouth once daily. pantoprazole DR (PROTONIX) 40 mg tablet Take 1 tablet by mouth two times a day. amLODIPine (NORVASC) 5 mg tablet TAKE 1 TABLET BY MOUTH EVERY DAY loratadine (CLARITIN) 10 mg tablet TAKE 1 TABLET BY MOUTH EVERY DAY icosapent ethyl (VASCEPA) 1 gram capsule Take 2 capsules by mouth two times a day. albuterol HFA (PROVENTIL HFA) 90 mcg/actuation inhaler Inhale 1-2 Puffs as instructed four times a day as needed for wheezing/shortness of breath. fluticasone (FLONASE) 50 mcg/actuation nasal spray SPRAY 1 SPRAY INTO EACH NOSTRIL AT BEDTIME ciprofloxacin HCl (CIPRO) 500 mg tablet Take 500 mg by mouth two times a day. Till 12/17/24 for UTI alogliptin (NESINA) 6.25 mg tab Take 6.25 mg by mouth two times a day. triamcinolone acetonide (KENALOG) 0.1 % cream Apply to affected area two times a day. Cholecalciferol, Vitamin D3, (VITAMIN D) 25 mcg (1,000 unit) cap Take 2 caps (more content not included)... Normal [facility] TSH DL <= 0.005 mIU/L QnOrde red By: Shari Hurd on 01-02-2025 TSH Qn 0.218 uIU/mL Low 0.300-4.20 0 [facility] Thyroid Stim Hormone (TSH)on 01-02-2025 TSH 0.218 uIU/mL Low 0.300-4.20 0 [facility] Comment on above: Order Comment: 307.2 Performed By: #### L 501.9520 ####[facility] [address] [place], [address] Anion gap in Serum or Plasma Ordered By: Shari Hurd on 12-26-2024 Anion gap [Moles/Vol] 13 mmol/L 08-10 [facility] BUN/creatinine ratioOrdered By: Shari Hurd on 12-26-2024 Urea nitrogen/Creatinine [Mass ratio] 10.8 mg/mg 01-15 [facility] Basic Metabolic Profile (BMP )on 12-26-2024 BUN/CRE 10.8 RATIO Normal 01-15 [facility] Comment on above: Order Comment: 212.1 Performed By: #### L [id number], L500.2500, L100.0500 ####[facility] [address] [place], [address] Calcium [Mass/Vol] 9.2 mg/dL Normal 7.6-11.0 [facility] Comment on above: Order Comment: 212.1 Performed By: #### L [id number], L500.2500, L100.0500 ####[facility] [address] [place], [address] Chloride [Moles/Vol] 104 mmol/L Normal 98-108 [facility] Comment on above: Order Comment: 212.1 Performed By: #### L 501.5200, L500.2500, L100.0500 ####[facility] [address] [place], [address] CO2 [Moles/Vol] 26.2 mmol/L Normal 21.0-32.0 [facility] Comment on above: Order Comment: 212.1 Performed By: #### L 501.5200, L500.2500, L100.0500 ####[facility] [address] [place], [address] Creatinine [Mass/Vol] 2.33 mg/dL High 0.70-1.20 [facility] Comment on above: Order Comment: 212.1 Performed By: #### L 501.5200, L500.2500, L100.0500 ####[facility] [address] [place], [address] GAP 13 Normal 5-15 [facility] Comment on above: Order Comment: 212.1 Performed By: #### L 501.5200, L500.2500, L100.0500 ####[facility] [address] [place], [address] GFR/1.73 sq M.predicted among non-blacks MDRD (S/P/Bld) [Vol rate/Area] 29 mL/min/{1.73_m2} Low >60 [facility] Comment on above: Order Comment: 212.1 Result Comment: mL/m in/1.73m2 CKD-EPI Creatinine Equation (2020) Performed By: #### L 501.5200, L500.2500, L100.0500 ####[facility] [address] [place], [address] Glucose [Mass/Vol] 87 mg/dL Normal 70-99 [facility] Comment on above: Order Comment: 212.1 Performed By: #### L 501.5200, L500.2500, L100.0500 ####[facility] [address] [place], [address] Potassium [Moles/Vol] 3.6 mmol/L Normal 3.3-5.1 [facility] Comment on above: Order Comment: 212.1 Performed By: #### L 501.5200, L500.2500, L100.0500 ####[facility] [address] [place], [address] Sodium [Moles/Vol] 143 mmol/L Normal 133-145 [facility] Comment on above: Order Comment: 212.1 Performed By: #### L 501.5200, L500.2500, L100.0500 ####[facility] [address] [place], [address] Urea nitrogen [Mass/Vol] 25 mg/dL High 4-19 [facility] Comment on above: Order Comment: 212.1 Performed By: #### L 501.5200, L500.2500, L100.0500 ####[facility] [address] [place], [address] CBC-Complete Blood Cnt No Di ffon 12-26-2024 RDW SD 54.6 fl High 35.1-43.9 [facility] Comment on above: Order Comment: 212.1 Performed By: #### L 501.5200, L500.2500, L100.0500 ####[facility] [address] [place], [address] CBC-Complete Blood Cnt No Di ffOrdered By: Shari Hurd on 12-26-2024 Erythrocyte distribution width (RBC) [Ratio] 17.4 % High 11.6-14.6 [facility] Comment on above: Order Comment: 212.1 Performed By: #### L 501.5200, L500.2500, L100.0500 ####[facility] [address] [place], [address] Hematocrit (Bld) [Volume fraction] 35.9 % Low 40-54 [facility] Comment on above: Order Comment: 212.1 Performed By: #### L 501.5200, L500.2500, L100.0500 ####[facility] [address] [place], [address] Hemoglobin (Bld) [Mass/Vol] 11.2 g/dL Low 13.0-16.5 [facility] Comment on above: Order Comment: 212.1 Performed By: #### L 501.5200, L500.2500, L100.0500 ####[facility] [address] [place], [address] MCH (RBC) [Entitic mass] 26.8 pg Low 27.0-32.0 [facility] Comment on above: Order Comment: 212.1 Performed By: #### L 501.5200, L500.2500, L100.0500 ####[facility] [address] [place], [address] MCHC (RBC) [Mass/Vol] 31.2 g/dL Low 32-36 [facility] Comment on above: Order Comment: 212.1 Performed By: #### L 501.5200, L500.2500, L100.0500 ####[facility] [address] [place], [address] MCV (RBC) [Entitic vol] 85.9 fL Normal 80-94 [facility] Comment on above: Order Comment: 212.1 Performed By: #### L 501.5200, L500.2500, L100.0500 ####[facility] [address] [place], [address] Platelet mean volume (Bld) [Entitic vol] 12.0 fL Normal 6.2-12.0 [facility] Comment on above: Order Comment: 212.1 Performed By: #### L 501.5200, L500.2500, L100.0500 ####[facility] [address] [place], [address] Platelets (Bld) [#/Vol] 134 10*3/uL Low 150-450 [facility] Comment on above: Order Comment: 212.1 Performed By: #### L 501.5200, L500.2500, L100.0500 ####[facility] [address] [place], [address] RBC (Bld) [#/Vol] 4.18 10*6/uL Low 4.6-6.2 [facility] Comment on above: Order Comment: 212.1 Performed By: #### L 501.5200, L500.2500, L100.0500 ####[facility] [address] [place], [address] WBC (Bld) [#/Vol] 7.7 10*3/uL Normal 4.4-11.0 [facility] Comment on above: Order Comment: 212.1 Performed By: #### L 501.5200, L500.2500, L100.0500 ####[facility] [address] [place], [address] Carbon dioxide, total [Moles /volume] in Central venous bloodOrdered By: Shari Hurd on 12-26-2024 CO2 [Moles/Vol] 26.2 mmol/L 21.0-32.0 [facility] Chloride assayOrdered By: Thai Hurd on 12-26-2024 Chloride [Moles/Vol] 104 mmol/L 98-108 [facility] Erythrocyte distribution wid th standard deviationOrdered By: Shari Hurd on 12-26-2024 Erythrocyte distribution width (RBC) [Ratio] 54.6 fl High 35.1-43.9 [facility] Glomerular filtration rate ( GFR) estimation/1.73 sq m using serum, plasma, or whole bOrdered By: Shari Hurd on 12-26-2024 GFR/1.73 sq M.predicted among non-blacks MDRD (S/P/Bld) [Vol rate/Area] 29 mL/min/{1.73_m2} Low >60 [facility] Comment on above: mL/min/1.73m2 CKD-EP I Creatinine Equation (2020) Magnesiumon 12-26-2024 Magnesium [Mass/Vol] 2.2 mg/dL Normal 1.5-2.2 [facility] Comment on above: Order Comment: 212.1 Performed By: #### L 501.5200, L500.2500, L100.0500 ####[facility] [address] [place], [address] Magnesium measurement (mass/ volume)Ordered By: Shari Hurd on 12-26-2024 Magnesium (Unsp spec) [Mass/Vol] 2.2 mg/dL 1.5-2.2 [facility] Potassium measurement (mass/ volume)Ordered By: Shari Hurd on 12-26-2024 Potassium (Unsp spec) [Mass/Vol] 3.6 mmol/L 3.3-5.1 [facility] Serum creatinine measurement (mass/volume)Ordered By: Shari Hurd on 12-26-2024 Creatinine [Mass/Vol] 2.33 mg/dL High 0.70-1.20 [facility] Serum glucose measurement (m ass/volume)Ordered By: Shari Hurd on 12-26-2024 Glucose [Mass/Vol] 87 mg/dL 70-99 [facility] Serum or plasma calcium camille urement (mass/volume)Ordered By: Shari Hurd on 12-26-2024 Calcium [Mass/Vol] 9.2 mg/dL 7.6-11.0 [facility] Serum or plasma urea nitroge n measurement (mass/volume)Ordered By: Shari Hurd on 12-26-2024 Urea nitrogen [Mass/Vol] 25 mg/dL High 4-19 [facility] Sodium levelOrdered By: Sarahy Hurd on 12-26-2024 Sodium [Moles/Vol] 143 mmol/L 133-145 [facility] Absolute lymphocyte countOrd ered By: Shari Hurd on 12-12-2024 Lymphocytes Auto (Unsp spec) [#/Vol] 0.75 10*3/uL Low 0.83-4.51 [facility] Absolute neutrophil countOrd ered By: Shari Hurd on 12-12-2024 Neutrophils (Bld) [#/Vol] 3.7 10*3/uL 2.0-7.7 [facility] Anion gap in Serum or Plasma Ordered By: Shari Hurd on 12-12-2024 Anion gap [Moles/Vol] 12 mmol/L 5-15 [facility] Automated lymphocyte count a s percentage of total leukocytesOrdered By: Shari Hurd on 12-12-2024 Lymphocytes/100 WBC Auto (Unsp spec) 14.4 % Low 19-41 [facility] BUN/creatinine ratioOrdered By: Shari Hurd on 12-12-2024 Urea nitrogen/Creatinine [Mass ratio] 7.8 mg/mg Low 10-20 [facility] Basic Metabolic Profile (BMP )on 12-12-2024 BUN/CRE 7.8 RATIO Low 10-20 [facility] Comment on above: Order Comment: 212.1 Performed By: #### L 100.0100, L500.2500, L501.5200 ####[facility] [address] [place], [address] Calcium [Mass/Vol] 8.8 mg/dL Normal 7.6-11.0 [facility] Comment on above: Order Comment: 212.1 Performed By: #### L 100.0100, L500.2500, L501.5200 ####[facility] [address] [place], [address] Chloride [Moles/Vol] 104 mmol/L Normal 98-108 [facility] Comment on above: Order Comment: 212.1 Performed By: #### L 100.0100, L500.2500, L501.5200 ####[facility] [address] [place], [address] CO2 [Moles/Vol] 24.2 mmol/L Normal 21.0-32.0 [facility] Comment on above: Order Comment: 212.1 Performed By: #### L 100.0100, L500.2500, L501.5200 ####[facility] [address] [place], [address] Creatinine [Mass/Vol] 1.89 mg/dL High 0.70-1.20 [facility] Comment on above: Order Comment: 212.1 Performed By: #### L 100.0100, L500.2500, L501.5200 ####[facility] [address] [place], [address] GAP 12 Normal 5-15 [facility] Comment on above: Order Comment: 212.1 Performed By: #### L 100.0100, L500.2500, L501.5200 ####[facility] [address] [place], [address] GFR/1.73 sq M.predicted among non-blacks MDRD (S/P/Bld) [Vol rate/Area] 37 mL/min/{1.73_m2} Low >60 [facility] Comment on above: Order Comment: 212.1 Result Comment: mL/m in/1.73m2 CKD-EPI Creatinine Equation (2020) Performed By: #### L 100.0100, L500.2500, L501.5200 ####[facility] [address] [place], [address] Glucose [Mass/Vol] 103 mg/dL High 70-99 [facility] Comment on above: Order Comment: 212.1 Performed By: #### L 100.0100, L500.2500, L501.5200 ####[facility] [address] [place], [address] Potassium [Moles/Vol] 3.6 mmol/L Normal 3.3-5.1 [facility] Comment on above: Order Comment: 212.1 Result Comment: Hemo lysis present, Results??could be affected.?? Performed By: #### L 100.0100, L500.2500, L501.5200 ####[facility] [address] [place], [address] Sodium [Moles/Vol] 140 mmol/L Normal 133-145 [facility] Comment on above: Order Comment: 212.1 Performed By: #### L 100.0100, L500.2500, L501.5200 ####[facility] [address] [place], [address] Urea nitrogen [Mass/Vol] 15 mg/dL Normal 4-19 [facility] Comment on above: Order Comment: 212.1 Performed By: #### L 100.0100, L500.2500, L501.5200 ####[facility] [address] [place], [address] Basophil percentageOrdered B y: Shari Hurd on 12-12-2024 Basophils/100 WBC (Bld) 0.8 % 0-1 [facility] CBC W/Diff, Automatedon 11-27 Absolute Lymph 0.75 X10 3/uL Low 0.83-4.51 [facility] Comment on above: Order Comment: 212.1 Performed By: #### L 100.0100, L500.2500, L501.5200 ####[facility] [address] [place], [address] Absolute Neut 3.7 X10 3/uL Normal 2.0-7.7 [facility] Comment on above: Order Comment: 212.1 Performed By: #### L 100.0100, L500.2500, L501.5200 ####[facility] [address] [place], [address] Basophils/100 WBC (Bld) 0.8 % Normal 0-1 [facility] Comment on above: Order Comment: 212.1 Performed By: #### L 100.0100, L500.2500, L501.5200 ####[facility] [address] [place], [address] Eosinophils/100 WBC (Bld) 3.6 % Normal 0-5 [facility] Comment on above: Order Comment: 212.1 Performed By: #### L 100.0100, L500.2500, L501.5200 ####[facility] [address] [place], [address] Erythrocyte distribution width (RBC) [Ratio] 16.9 % High 11.6-14.6 [facility] Comment on above: Order Comment: 212.1 Performed By: #### L 100.0100, L500.2500, L501.5200 ####[facility] [address] [place], [address] Hematocrit (Bld) [Volume fraction] 35.2 % Low 40-54 [facility] Comment on above: Order Comment: 212.1 Performed By: #### L 100.0100, L500.2500, L501.5200 ####[facility] [address] [place], [address] Hemoglobin (Bld) [Mass/Vol] 11.0 g/dL Low 13.0-16.5 [facility] Comment on above: Order Comment: 212.1 Performed By: #### L 100.0100, L500.2500, L501.5200 ####[facility] [address] [place], [address] IG% 0.800 Normal 0.0-0.9 [facility] Comment on above: Order Comment: 212.1 Result Comment: IG% - Immature Granulocytes (promyelocytes, myelocytes andmetamyelocytes) > 1% indicates that a LEFT SHIFT is Present. Performed By: #### L 100.0100, L500.2500, L501.5200 ####[facility] [address] [place], [address] Lymphocytes/100 WBC (Bld) 14.4 % Low 19-41 [facility] Comment on above: Order Comment: 212.1 Performed By: #### L 100.0100, L500.2500, L501.5200 ####[facility] [address] [place], [address] MCH (RBC) [Entitic mass] 27.2 pg Normal 27.0-32.0 [facility] Comment on above: Order Comment: 212.1 Performed By: #### L 100.0100, L500.2500, L501.5200 ####[facility] [address] [place], [address] MCHC (RBC) [Mass/Vol] 31.3 g/dL Low 32-36 [facility] Comment on above: Order Comment: 212.1 Performed By: #### L 100.0100, L500.2500, L501.5200 ####[facility] [address] [place], [address] MCV (RBC) [Entitic vol] 87.1 fL Normal 80-94 [facility] Comment on above: Order Comment: 212.1 Performed By: #### L 100.0100, L500.2500, L501.5200 ####[facility] [address] [place], [address] Monocytes/100 WBC (Bld) 10.0 % Normal 0-10 [facility] Comment on above: Order Comment: 212.1 Performed By: #### L 100.0100, L500.2500, L501.5200 ####[facility] [address] [place], [address] Neutrophils/100 WBC (Bld) 70.4 % High 47-70 [facility] Comment on above: Order Comment: 212.1 Performed By: #### L 100.0100, L500.2500, L501.5200 ####[facility] [address] [place], [address] Nucleated RBC (Bld) [#/Vol] 0 10*3/uL Normal 0-5 [facility] Comment on above: Order Comment: 212.1 Performed By: #### L 100.0100, L500.2500, L501.5200 ####[facility] [address] [place], [address] Platelet mean volume (Bld) [Entitic vol] 12.4 fL High 6.2-12.0 [facility] Comment on above: Order Comment: 212.1 Performed By: #### L 100.0100, L500.2500, L501.5200 ####[facility] [address] [place], [address] Platelets (Bld) [#/Vol] 129 10*3/uL Low 150-450 [facility] Comment on above: Order Comment: 212.1 Performed By: #### L 100.0100, L500.2500, L501.5200 ####[facility] [address] [place], [address] RBC (Bld) [#/Vol] 4.04 10*6/uL Low 4.6-6.2 [facility] Comment on above: Order Comment: 212.1 Performed By: #### L 100.0100, L500.2500, L501.5200 ####[facility] [address] [place], [address] RDW SD 54.3 fl High 35.1-43.9 [facility] Comment on above: Order Comment: 212.1 Performed By: #### L 100.0100, L500.2500, L501.5200 ####[facility] [address] [place], [address] WBC (Bld) [#/Vol] 5.2 10*3/uL Normal 4.4-11.0 [facility] Comment on above: Order Comment: 212.1 Performed By: #### L 100.0100, L500.2500, L501.5200 ####[facility] [address] [place], [address] CNOVon 12-12-2024 CNOV Office Visit (PODIWS ) EMELIA JOHNSON ([id number]) 1950 M Date Time Provider Department 12/12/24 10:00 AM YUDY BENOIT PODIWS During your visit today, we recorded the following information about you: Judie Dewey, LAQUITA 12/12/2024 10:48 AM Signed Patient presents with: Left Foot - Established Patient, Follow Up, Diabetic Foot Care Right Foot - Established Patient, Follow Up, Diabetic Foot Care Patient presents for follow up diabetic foot/nail care. Left leg swelling. Currently in [facility] and nonambulatory. In wheelchair at this time. [...] or sore from your shoes, do not "pop" it. Apply a bandage and wear a different pair of shoes. Take Care of Your Toenails Cut toenails after bathing, when they are soft. Cut toenails straight across and smooth with a nail file. Avoid cutting into the corners of toes. Do not cut cuticles. If you have neuropathy (or decreased sensation in your feet) a cell maker should always cut your toenails. Be Careful [...] your socks daily. Look and feel inside y (more content not included)... Normal [facility] Carbon dioxide, total [Moles /volume] in Central venous bloodOrdered By: Shari Hurd on 12-12-2024 CO2 [Moles/Vol] 24.2 mmol/L 21.0-32.0 [facility] Chloride assayOrdered By: Thai Hurd on 12-12-2024 Chloride [Moles/Vol] 104 mmol/L 98-108 [facility] Eosinophil percentageOrdered By: Shari Hurd on 12-12-2024 Eosinophils/100 WBC (Bld) 3.6 % 0-5 [facility] Erythrocyte distribution wid th ratioOrdered By: Shari Hurd on 12-12-2024 Erythrocyte distribution width (RBC) [Ratio] 16.9 % High 11.6-14.6 [facility] Erythrocyte distribution wid th standard deviationOrdered By: Shari Hurd on 12-12-2024 Erythrocyte distribution width (RBC) [Ratio] 54.3 fl High 35.1-43.9 [facility] Glomerular filtration rate ( GFR) estimation/1.73 sq m using serum, plasma, or whole bOrdered By: Shari Hurd on 12-12-2024 GFR/1.73 sq M.predicted among non-blacks MDRD (S/P/Bld) [Vol rate/Area] 37 mL/min/{1.73_m2} Low >60 [facility] Comment on above: mL/min/1.73m2 CKD-EP I Creatinine Equation (2020) Hematocrit Auto (Bld) [Volum e fraction]Ordered By: Shari Hurd on 12-12-2024 Hematocrit (Bld) [Volume fraction] 35.2 % Low 40-54 [facility] Hemoglobin measurementOrdere d By: Shari Hurd on 12-12-2024 Hemoglobin (Bld) [Mass/Vol] 11.0 g/dL Low 13.0-16.5 [facility] Immature granulocytes/100 WB C Auto (Bld)Ordered By: Shari Hurd on 12-12-2024 Immature granulocytes/100 WBC (Bld) 0.800 % 0.0-0.9 [facility] Comment on above: IG% - Immature Granu locytes (promyelocytes, myelocytes and metamyelocytes) > 1% indicates that a LEFT SHIFT is Present. MCV (mean corpuscular volume ) determinationOrdered By: Shari Hurd on 12-12-2024 MCV (RBC) [Entitic vol] 87.1 fL 80-94 [facility] Magnesiumon 12-12-2024 Magnesium [Mass/Vol] 1.1 mg/dL Low 1.5-2.2 [facility] Comment on above: Order Comment: 212.1 Performed By: #### L 100.0100, L500.2500, L501.5200 ####[facility] [address] [place], [address] Magnesium measurement (mass/ volume)Ordered By: Shari Hurd on 12-12-2024 Magnesium (Unsp spec) [Mass/Vol] 1.1 mg/dL Low 1.5-2.2 [facility] Mean corpuscular hemoglobin (MCH) determinationOrdered By: Shari Hurd on 12-12-2024 MCH (RBC) [Entitic mass] 27.2 pg 27.0-32.0 [facility] Mean corpuscular hemoglobin concentration (MCHC) determinationOrdered By: Shari Hurd on 12-12-2024 MCHC (RBC) [Mass/Vol] 31.3 g/dL Low 32-36 [facility] Mean platelet volume determi nationOrdered By: Shari Hurd on 12-12-2024 Platelet mean volume (Bld) [Entitic vol] 12.4 fL High 6.2-12.0 [facility] Monocyte percentageOrdered B y: Shari Hurd on 12-12-2024 Monocytes/100 WBC (Bld) 10.0 % 0-10 [facility] Neutrophil percentageOrdered By: Shari Hurd on 12-12-2024 Neutrophils/100 WBC (Bld) 70.4 % High 47-70 [facility] Nucleated red blood cell per centageOrdered By: Shari Hurd on 12-12-2024 Nucleated RBC/100 WBC (Bld) [Ratio] 0 % 0-5 [facility] Platelet countOrdered By: Thai Hurd on 12-12-2024 Platelets (Bld) [#/Vol] 129 10*3/uL Low 150-450 [facility] Potassium measurement (mass/ volume)Ordered By: Shari Hurd on 12-12-2024 Potassium (Unsp spec) [Mass/Vol] 3.6 mmol/L 3.3-5.1 [facility] Comment on above: Hemolysis present, R esults could be affected. RBC Auto (Bld) [#/Vol]Ordere d By: Shari Hurd on 12-12-2024 RBC (Bld) [#/Vol] 4.04 10*6/uL Low 4.6-6.2 [facility] Serum creatinine measurement (mass/volume)Ordered By: Shari Hurd on 12-12-2024 Creatinine [Mass/Vol] 1.89 mg/dL High 0.70-1.20 [facility] Serum glucose measurement (m ass/volume)Ordered By: Shari Hurd on 12-12-2024 Glucose [Mass/Vol] 103 mg/dL High 70-99 [facility] Serum or plasma calcium camille urement (mass/volume)Ordered By: Shari Hurd on 12-12-2024 Calcium [Mass/Vol] 8.8 mg/dL 7.6-11.0 [facility] Serum or plasma urea nitroge n measurement (mass/volume)Ordered By: Shari Hurd on 12-12-2024 Urea nitrogen [Mass/Vol] 15 mg/dL 4-19 [facility] Sodium levelOrdered By: Sarahy Hurd on 12-12-2024 Sodium [Moles/Vol] 140 mmol/L 133-145 [facility] White blood cell (WBC) count Ordered By: Shari Hurd on 12-12-2024 WBC (Bld) [#/Vol] 5.2 10*3/uL 4.4-11.0 [facility] Anion gap in Serum or Plasma Ordered By: Shari Hurd on 11-21-2024 Anion gap [Moles/Vol] 9 mmol/L 5-15 [facility] BUN/creatinine ratioOrdered By: Shari Hurd on 11-21-2024 Urea nitrogen/Creatinine [Mass ratio] 7.9 mg/mg Low 10-20 [facility] Basic Metabolic Profile (BMP )on 11-21-2024 BUN/CRE 7.9 RATIO Low 10-20 [facility] Comment on above: Order Comment: 212.1 Performed By: #### L 500.2500 ####[facility] [address] [place], [address] Calcium [Mass/Vol] 8.9 mg/dL Normal 7.6-11.0 [facility] Comment on above: Order Comment: 212.1 Performed By: #### L 500.2500 ####[facility] [address] [place], [address] Chloride [Moles/Vol] 107 mmol/L Normal 98-108 [facility] Comment on above: Order Comment: 212.1 Performed By: #### L 500.2500 ####[facility] [address] [place], [address] CO2 [Moles/Vol] 23.8 mmol/L Normal 21.0-32.0 [facility] Comment on above: Order Comment: 212.1 Performed By: #### L 500.2500 ####[facility] [address] [place], [address] Creatinine [Mass/Vol] 1.93 mg/dL High 0.70-1.20 [facility] Comment on above: Order Comment: 212.1 Performed By: #### L 500.2500 ####[facility] [address] [place], [address] GAP 9 Normal 5-15 [facility] Comment on above: Order Comment: 212.1 Performed By: #### L 500.2500 ####[facility] [address] [place], [address] GFR/1.73 sq M.predicted among non-blacks MDRD (S/P/Bld) [Vol rate/Area] 36 mL/min/{1.73_m2} Low >60 [facility] Comment on above: Order Comment: 212.1 Result Comment: mL/m in/1.73m2 CKD-EPI Creatinine Equation (2020) Performed By: #### L 500.2500 ####[facility] [address] [place], [address] Glucose [Mass/Vol] 84 mg/dL Normal 70-99 [facility] Comment on above: Order Comment: 212.1 Performed By: #### L 500.2500 ####[facility] [address] [place], [address] Potassium [Moles/Vol] 4.1 mmol/L Normal 3.3-5.1 [facility] Comment on above: Order Comment: 212.1 Performed By: #### L 500.2500 ####[facility] [address] [place], [address] Sodium [Moles/Vol] 141 mmol/L Normal 133-145 [facility] Comment on above: Order Comment: 212.1 Performed By: #### L 500.2500 ####[facility] [address] [place], [address] Urea nitrogen [Mass/Vol] 15 mg/dL Normal 4-19 [facility] Comment on above: Order Comment: 212.1 Performed By: #### L 500.2500 ####[facility] [address] [place], [address] Carbon dioxide, total [Moles /volume] in Central venous bloodOrdered By: Shari Hurd on 11-21-2024 CO2 [Moles/Vol] 23.8 mmol/L 21.0-32.0 [facility] Chloride assayOrdered By: Thai Hurd on 11-21-2024 Chloride [Moles/Vol] 107 mmol/L 98-108 [facility] Glomerular filtration rate ( GFR) estimation/1.73 sq m using serum, plasma, or whole bOrdered By: Shari Hurd on 11-21-2024 GFR/1.73 sq M.predicted among non-blacks MDRD (S/P/Bld) [Vol rate/Area] 36 mL/min/{1.73_m2} Low >60 [facility] Comment on above: mL/min/1.73m2 CKD-EP I Creatinine Equation (2020) Potassium measurement (mass/ volume)Ordered By: Shari Hurd on 11-21-2024 Potassium (Unsp spec) [Mass/Vol] 4.1 mmol/L 3.3-5.1 [facility] Serum creatinine measurement (mass/volume)Ordered By: Shari Hurd on 11-21-2024 Creatinine [Mass/Vol] 1.93 mg/dL High 0.70-1.20 [facility] Serum glucose measurement (m ass/volume)Ordered By: Shari Hurd on 11-21-2024 Glucose [Mass/Vol] 84 mg/dL 70-99 [facility] Serum or plasma calcium camille urement (mass/volume)Ordered By: Shari Hurd on 11-21-2024 Calcium [Mass/Vol] 8.9 mg/dL 7.6-11.0 [facility] Serum or plasma urea nitroge n measurement (mass/volume)Ordered By: Shari Hurd on 11-21-2024 Urea nitrogen [Mass/Vol] 15 mg/dL - [facility] Sodium levelOrdered By: Sarahy Hurd on 11-21-2024 Sodium [Moles/Vol] 141 mmol/L 133-145 [facility] Absolute lymphocyte countOrd ered By: Shari Hurd on 11-14-2024 Lymphocytes Auto (Unsp spec) [#/Vol] 0.95 10*3/uL 0.83-4.51 [facility] Absolute neutrophil countOrd ered By: Shari Hurd on 11-14-2024 Neutrophils (Bld) [#/Vol] 4.5 10*3/uL 2.0-7.7 [facility] Anion gap in Serum or Plasma Ordered By: Shari Hurd on 11-14-2024 Anion gap [Moles/Vol] 11 mmol/L 5- [facility] Automated lymphocyte count a s percentage of total leukocytesOrdered By: Shari Hurd on 11-14-2024 Lymphocytes/100 WBC Auto (Unsp spec) 15.3 % Low 19-41 [facility] BUN/creatinine ratioOrdered By: Shari Hurd on 11-14-2024 Urea nitrogen/Creatinine [Mass ratio] 7.1 mg/mg Low 10-20 [facility] Basic Metabolic Profile (BMP )on 11-14-2024 BUN/CRE 7.1 RATIO Low 10-20 [facility] Comment on above: Order Comment: 212.1 Performed By: #### L 100.0100, L500.2500, L501.5200, L501.9985 ####[facility] [address] [place], [address] Calcium [Mass/Vol] 8.9 mg/dL Normal 7.6-11.0 [facility] Comment on above: Order Comment: 212.1 Performed By: #### L 100.0100, L500.2500, L501.5200, L501.9985 ####[facility] [address] [place], [address] Chloride [Moles/Vol] 105 mmol/L Normal 98-108 [facility] Comment on above: Order Comment: 212.1 Performed By: #### L 100.0100, L500.2500, L501.5200, L501.9985 ####[facility] [address] [place], [address] CO2 [Moles/Vol] 24.3 mmol/L Normal 21.0-32.0 [facility] Comment on above: Order Comment: 212.1 Performed By: #### L 100.0100, L500.2500, L501.5200, L501.9985 ####[facility] [address] [place], [address] Creatinine [Mass/Vol] 2.05 mg/dL High 0.70-1.20 [facility] Comment on above: Order Comment: 212.1 Performed By: #### L 100.0100, L500.2500, L501.5200, L501.9985 ####[facility] [address] [place], [address] GAP 11 Normal 5-15 [facility] Comment on above: Order Comment: 212.1 Performed By: #### L 100.0100, L500.2500, L501.5200, L501.9985 ####[facility] [address] [place], [address] GFR/1.73 sq M.predicted among non-blacks MDRD (S/P/Bld) [Vol rate/Area] 33 mL/min/{1.73_m2} Low >60 [facility] Comment on above: Order Comment: 212.1 Result Comment: mL/m in/1.73m2 CKD-EPI Creatinine Equation (2020) Performed By: #### L 100.0100, L500.2500, L501.5200, L501.9985 ####[facility] [address] [place], [address] Glucose [Mass/Vol] 99 mg/dL Normal 70-99 [facility] Comment on above: Order Comment: 212.1 Performed By: #### L 100.0100, L500.2500, L501.5200, L501.9985 ####[facility] [address] [place], [address] Potassium [Moles/Vol] 4.2 mmol/L Normal 3.3-5.1 [facility] Comment on above: Order Comment: 212.1 Performed By: #### L 100.0100, L500.2500, L501.5200, L501.9985 ####[facility] [address] [place], [address] Sodium [Moles/Vol] 140 mmol/L Normal 133-145 [facility] Comment on above: Order Comment: 212.1 Performed By: #### L 100.0100, L500.2500, L501.5200, L501.9985 ####[facility] [address] [place], [address] Urea nitrogen [Mass/Vol] 15 mg/dL Normal - [facility] Comment on above: Order Comment: 212.1 Performed By: #### L 100.0100, L500.2500, L501.5200, L501.9985 ####[facility] [address] [place], [address] Basophil percentageOrdered B y: Shari Naidrmaycollenore on 11-14-2024 Basophils/100 WBC (Bld) 0.8 % 0-1 [facility] CBC W/Diff, Automatedon 10-27 Absolute Lymph 0.95 X10 3/uL Normal 0.83-4.51 [facility] Comment on above: Order Comment: 212.1 Performed By: #### L 100.0100, L500.2500, L501.5200, L501.9985 ####[facility] [address] [place], [address] Absolute Neut 4.5 X10 3/uL Normal 2.0-7.7 [facility] Comment on above: Order Comment: 212.1 Performed By: #### L 100.0100, L500.2500, L501.5200, L501.9985 ####[facility] [address] [place], [address] Basophils/100 WBC (Bld) 0.8 % Normal 0-1 [facility] Comment on above: Order Comment: 212.1 Performed By: #### L 100.0100, L500.2500, L501.5200, L501.9985 ####[facility] [address] [place], [address] Eosinophils/100 WBC (Bld) 2.3 % Normal 0-5 [facility] Comment on above: Order Comment: 212.1 Performed By: #### L 100.0100, L500.2500, L501.5200, L501.9985 ####[facility] [address] [place], [address] Erythrocyte distribution width (RBC) [Ratio] 16.7 % High 11.6-14.6 [facility] Comment on above: Order Comment: 212.1 Performed By: #### L 100.0100, L500.2500, L501.5200, L501.9985 ####[facility] [address] [place], [address] Hematocrit (Bld) [Volume fraction] 34.7 % Low 40-54 [facility] Comment on above: Order Comment: 212.1 Performed By: #### L 100.0100, L500.2500, L501.5200, L501.9985 ####[facility] [address] [place], [address] Hemoglobin (Bld) [Mass/Vol] 10.9 g/dL Low 13.0-16.5 [facility] Comment on above: Order Comment: 212.1 Performed By: #### L 100.0100, L500.2500, L501.5200, L501.9985 ####[facility] [address] [place], [address] IG% 0.600 Normal 0.0-0.9 [facility] Comment on above: Order Comment: 212.1 Result Comment: IG% - Immature Granulocytes (promyelocytes, myelocytes andmetamyelocytes) > 1% indicates that a LEFT SHIFT is Present. Performed By: #### L 100.0100, L500.2500, L501.5200, L501.9985 ####[facility] [address] [place], [address] Lymphocytes/100 WBC (Bld) 15.3 % Low 19-41 [facility] Comment on above: Order Comment: 212.1 Performed By: #### L 100.0100, L500.2500, L501.5200, L501.9985 ####[facility] [address] [place], [address] MCH (RBC) [Entitic mass] 27.8 pg Normal 27.0-32.0 [facility] Comment on above: Order Comment: 212.1 Performed By: #### L 100.0100, L500.2500, L501.5200, L501.9985 ####[facility] [address] [place], [address] MCHC (RBC) [Mass/Vol] 31.4 g/dL Low 32-36 [facility] Comment on above: Order Comment: 212.1 Performed By: #### L 100.0100, L500.2500, L501.5200, L501.9985 ####[facility] [address] [place], [address] MCV (RBC) [Entitic vol] 88.5 fL Normal 80-94 [facility] Comment on above: Order Comment: 212.1 Performed By: #### L 100.0100, L500.2500, L501.5200, L501.9985 ####[facility] [address] [place], [address] Monocytes/100 WBC (Bld) 7.9 % Normal 0-10 [facility] Comment on above: Order Comment: 212.1 Performed By: #### L 100.0100, L500.2500, L501.5200, L501.9985 ####[facility] [address] [place], [address] Neutrophils/100 WBC (Bld) 73.1 % High 47-70 [facility] Comment on above: Order Comment: 212.1 Performed By: #### L 100.0100, L500.2500, L501.5200, L501.9985 ####[facility] [address] [place], [address] Nucleated RBC (Bld) [#/Vol] 0 10*3/uL Normal 0-5 [facility] Comment on above: Order Comment: 212.1 Performed By: #### L 100.0100, L500.2500, L501.5200, L501.9985 ####[facility] [address] [place], [address] Platelet mean volume (Bld) [Entitic vol] 12.4 fL High 6.2-12.0 [facility] Comment on above: Order Comment: 212.1 Performed By: #### L 100.0100, L500.2500, L501.5200, L501.9985 ####[facility] [address] [place], [address] Platelets (Bld) [#/Vol] 101 10*3/uL Low 150-450 [facility] Comment on above: Order Comment: 212.1 Performed By: #### L 100.0100, L500.2500, L501.5200, L501.9985 ####[facility] [address] [place], [address] RBC (Bld) [#/Vol] 3.92 10*6/uL Low 4.6-6.2 [facility] Comment on above: Order Comment: 212.1 Performed By: #### L 100.0100, L500.2500, L501.5200, L501.9985 ####[facility] [address] [place], [address] RDW SD 54.3 fl High 35.1-43.9 [facility] Comment on above: Order Comment: 212.1 Performed By: #### L 100.0100, L500.2500, L501.5200, L501.9985 ####[facility] [address] [place], [address] WBC (Bld) [#/Vol] 6.2 10*3/uL Normal 4.4-11.0 [facility] Comment on above: Order Comment: 212.1 Performed By: #### L 100.0100, L500.2500, L501.5200, L501.9985 ####[facility] [address] [place], [address] Carbon dioxide, total [Moles /volume] in Central venous bloodOrdered By: Shari Hurd on 11-14-2024 CO2 [Moles/Vol] 24.3 mmol/L 21.0-32.0 [facility] Chloride assayOrdered By: Thai Hurd on 11-14-2024 Chloride [Moles/Vol] 105 mmol/L 98-108 [facility] Eosinophil percentageOrdered By: Shari Hurd on 11-14-2024 Eosinophils/100 WBC (Bld) 2.3 % 0-5 [facility] Erythrocyte distribution wid th ratioOrdered By: Shari Hurd on 11-14-2024 Erythrocyte distribution width (RBC) [Ratio] 16.7 % High 11.6-14.6 [facility] Erythrocyte distribution wid th standard deviationOrdered By: Sharitoni Hurd on 11-14-2024 Erythrocyte distribution width (RBC) [Ratio] 54.3 fl High 35.1-43.9 [facility] Glomerular filtration rate ( GFR) estimation/1.73 sq m using serum, plasma, or whole bOrdered By: Shari Hurd on 11-14-2024 GFR/1.73 sq M.predicted among non-blacks MDRD (S/P/Bld) [Vol rate/Area] 33 mL/min/{1.73_m2} Low >60 [facility] Comment on above: mL/min/1.73m2 CKD-EP I Creatinine Equation (2020) Hematocrit Auto (Bld) [Volum e fraction]Ordered By: Shari Hurd on 11-14-2024 Hematocrit (Bld) [Volume fraction] 34.7 % Low 40-54 [facility] Hemoglobin A1con 11-14-2024 HbA1c (Bld) [Mass fraction] 5.6 % Normal <=5.6 [facility] Comment on above: Order Comment: 212.1 Result Comment: Norm al < 5.7 % Prediabetic 5.7 - 6.4 % Diabetic >or= 6.5 % Please note range changes. Performed By: #### L 100.0100, L500.2500, L501.5200, L501.9985 ####[facility] [address] [place], [place], [id number] Hemoglobin A1c percentageOrd ered By: Shari Hurd on 11-14-2024 HbA1c (Bld) [Mass fraction] 5.6 % <5.7 [facility] Comment on above: Normal < 5.7 % Predi abetic 5.7 - 6.4 % Diabetic >or= 6.5 % Please note range changes. Hemoglobin measurementOrdere d By: Shari Hurd on 11-14-2024 Hemoglobin (Bld) [Mass/Vol] 10.9 g/dL Low 13.0-16.5 [facility] Immature granulocytes/100 WB C Auto (Bld)Ordered By: Shari Hurd on 11-14-2024 Immature granulocytes/100 WBC (Bld) 0.600 % 0.0-0.9 [facility] Comment on above: IG% - Immature Granu locytes (promyelocytes, myelocytes and metamyelocytes) > 1% indicates that a LEFT SHIFT is Present. MCV (mean corpuscular volume ) determinationOrdered By: Shari Hurd on 11-14-2024 MCV (RBC) [Entitic vol] 88.5 fL 80-94 [facility] Magnesiumon 11-14-2024 Magnesium [Mass/Vol] 1.6 mg/dL Normal 1.5-2.2 [facility] Comment on above: Order Comment: 212.1 Performed By: #### L 100.0100, L500.2500, L501.5200, L501.9985 ####[facility] [address] [place], [place], [id number] Magnesium measurement (mass/ volume)Ordered By: Shari Hurd on 11-14-2024 Magnesium (Unsp spec) [Mass/Vol] 1.6 mg/dL 1.5-2.2 [facility] Mean corpuscular hemoglobin (MCH) determinationOrdered By: Shari Hurd on 11-14-2024 MCH (RBC) [Entitic mass] 27.8 pg 27.0-32.0 [facility] Mean corpuscular hemoglobin concentration (MCHC) determinationOrdered By: Shari Hurd on 11-14-2024 MCHC (RBC) [Mass/Vol] 31.4 g/dL Low 32-36 [facility] Mean platelet volume determi nationOrdered By: Shari Hurd on 11-14-2024 Platelet mean volume (Bld) [Entitic vol] 12.4 fL High 6.2-12.0 [facility] Monocyte percentageOrdered B y: Shari Hurd on 11-14-2024 Monocytes/100 WBC (Bld) 7.9 % 0-10 [facility] Neutrophil percentageOrdered By: Shari Hurd on 11-14-2024 Neutrophils/100 WBC (Bld) 73.1 % High 47-70 [facility] Nucleated red blood cell per centageOrdered By: Shari Hurd on 11-14-2024 Nucleated RBC/100 WBC (Bld) [Ratio] 0 % 0-5 [facility] Platelet countOrdered By: Thai Hurd on 11-14-2024 Platelets (Bld) [#/Vol] 101 10*3/uL Low 150-450 [facility] Potassium measurement (mass/ volume)Ordered By: Shari Hurd on 11-14-2024 Potassium (Unsp spec) [Mass/Vol] 4.2 mmol/L 3.3-5.1 [facility] RBC Auto (Bld) [#/Vol]Ordere d By: Shari Hurd on 11-14-2024 RBC (Bld) [#/Vol] 3.92 10*6/uL Low 4.6-6.2 [facility] Serum creatinine measurement (mass/volume)Ordered By: Shari Hurd on 11-14-2024 Creatinine [Mass/Vol] 2.05 mg/dL High 0.70-1.20 [facility] Serum glucose measurement (m ass/volume)Ordered By: Sharitoni Hurd on 11-14-2024 Glucose [Mass/Vol] 99 mg/dL 70-99 [facility] Serum or plasma calcium camille urement (mass/volume)Ordered By: Sharitoni Hurd on 11-14-2024 Calcium [Mass/Vol] 8.9 mg/dL 7.6-11.0 [facility] Serum or plasma urea nitroge n measurement (mass/volume)Ordered By: Sharitoni Hurd on 11-14-2024 Urea nitrogen [Mass/Vol] 15 mg/dL 4-19 [facility] Sodium levelOrdered By: Blademathieu Hurd on 11-14-2024 Sodium [Moles/Vol] 140 mmol/L 133-145 [facility] White blood cell (WBC) count Ordered By: Sharitoni Hurd on 11-14-2024 WBC (Bld) [#/Vol] 6.2 10*3/uL 4.4-11.0 [facility] EMELIA JOHNSON ([id number]) 1950 Date Time Provider Department 11/13/24 GUTIERREZ ACEVEDO During your visit today, we recorded the following information about you: Erin Osborne LPN 11/13/2024 9:16 AM Signed Called patient. His daughter, Elidia, answered phone. Verified name and date of of patient. Elidia states patient is in a [facility], [facility], after having a urinary tract infection and [...] tablet by mouth every other day. - wmxjdckznjs-wouxqgkiw-wcnin ter (TRELEGY ELLIPTA) 100-62.5-25 mcg inhalation powder Inhale [...] aortic aneurysm (TAAA) without*11/21/2013 02/08/2020 Atherosclerosis of [place] artery of extremity w*11/21/2013 Other hyperlipidemia [E78.49] Unspecified hypothyroidism [E03.9] Smoker [F17.200] 01/27/2015 Chronic ischemic right MCA stroke [Z86.73] 02/08/2020 CAD (coronary artery disease), [place] coronary *12/27/2013 Postprocedural hypotension [I95.81] 12/27/2013 09/25/2020 [...] 10/18/2020 Postoperative urinary retention [N99.89, R33.8] 10/08/2020 (more content not included)... Normal [facility] Absolute lymphocyte countOrd ered By: Shari Hurd on 11-07-2024 Lymphocytes Auto (Unsp spec) [#/Vol] 1.17 10*3/uL 0.83-4.51 [facility] Absolute neutrophil countOrd ered By: Shari Hurd on 11-07-2024 Neutrophils (Bld) [#/Vol] 3.4 10*3/uL 2.0-7.7 [facility] Anion gap in Serum or Plasma Ordered By: Shari Hurd on 11-07-2024 Anion gap [Moles/Vol] 11 mmol/L 5-15 [facility] Automated lymphocyte count a s percentage of total leukocytesOrdered By: Shari Hurd on 11-07-2024 Lymphocytes/100 WBC Auto (Unsp spec) 21.2 % 19-41 [facility] BUN/creatinine ratioOrdered By: Shari Hurd on 11-07-2024 Urea nitrogen/Creatinine [Mass ratio] 5.5 mg/mg Low 10-20 [facility] Basic Metabolic Profile (BMP )on 11-07-2024 BUN/CRE 5.5 RATIO Low 10- [facility] Comment on above: Order Comment: 212 Performed By: #### L 506.1001, L500.4100, L500.2500, L501.9520, L501.5200, L100.0100 ####[facility] [address] [place], [address] Calcium [Mass/Vol] 9.3 mg/dL Normal 7.6-11.0 [facility] Comment on above: Order Comment: 212 Performed By: #### L 506.1001, L500.4100, L500.2500, L501.9520, L501.5200, L100.0100 ####[facility] [address] [place], [address] Chloride [Moles/Vol] 104 mmol/L Normal 98-108 [facility] Comment on above: Order Comment: 212 Performed By: #### L 506.1001, L500.4100, L500.2500, L501.9520, L501.5200, L100.0100 ####[facility] [address] [place], [address] CO2 [Moles/Vol] 25.2 mmol/L Normal 21.0-32.0 [facility] Comment on above: Order Comment: 212 Performed By: #### L 506.1001, L500.4100, L500.2500, L501.9520, L501.5200, L100.0100 ####[facility] [address] [place], [address] Creatinine [Mass/Vol] 1.89 mg/dL High 0.70-1.20 [facility] Comment on above: Order Comment: 212 Performed By: #### L 506.1001, L500.4100, L500.2500, L501.9520, L501.5200, L100.0100 ####[facility] [address] [place], [address] GAP 11 Normal 5-15 [facility] Comment on above: Order Comment: 212 Performed By: #### L 506.1001, L500.4100, L500.2500, L501.9520, L501.5200, L100.0100 ####[facility] [address] [place], [address] GFR/1.73 sq M.predicted among non-blacks MDRD (S/P/Bld) [Vol rate/Area] 37 mL/min/{1.73_m2} Low >60 [facility] Comment on above: Order Comment: 212 Result Comment: mL/m in/1.73m2 CKD-EPI Creatinine Equation (2020) Performed By: #### L 506.1001, L500.4100, L500.2500, L501.9520, L501.5200, L100.0100 ####[facility] [address] [place], [address] Glucose [Mass/Vol] 73 mg/dL Normal 70-99 [facility] Comment on above: Order Comment: 212 Performed By: #### L 506.1001, L500.4100, L500.2500, L501.9520, L501.5200, L100.0100 ####[facility] [address] [place], [address] Potassium [Moles/Vol] 3.8 mmol/L Normal 3.3-5.1 [facility] Comment on above: Order Comment: 212 Performed By: #### L 506.1001, L500.4100, L500.2500, L501.9520, L501.5200, L100.0100 ####[facility] [address] [place], [address] Sodium [Moles/Vol] 141 mmol/L Normal 133-145 [facility] Comment on above: Order Comment: 212 Performed By: #### L 506.1001, L500.4100, L500.2500, L501.9520, L501.5200, L100.0100 ####[facility] [address] [place], [address] Urea nitrogen [Mass/Vol] 10 mg/dL Normal 4-19 [facility] Comment on above: Order Comment: 212 Performed By: #### L 506.1001, L500.4100, L500.2500, L501.9520, L501.5200, L100.0100 ####[facility] [address] [place], [address] Basophil percentageOrdered B y: Shari Hurd on 11-07-2024 Basophils/100 WBC (Bld) 1.3 % High 0-1 [facility] CBC W/Diff, Automatedon 10-27 Absolute Lymph 1.17 X10 3/uL Normal 0.83-4.51 [facility] Comment on above: Order Comment: 212 Performed By: #### L 506.1001, L500.4100, L500.2500, L501.9520, L501.5200, L100.0100 ####[facility] [address] [place], [address] Absolute Neut 3.4 X10 3/uL Normal 2.0-7.7 [facility] Comment on above: Order Comment: 212 Performed By: #### L 506.1001, L500.4100, L500.2500, L501.9520, L501.5200, L100.0100 ####[facility] [address] [place], [address] Basophils/100 WBC (Bld) 1.3 % High 0-1 [facility] Comment on above: Order Comment: 212 Performed By: #### L 506.1001, L500.4100, L500.2500, L501.9520, L501.5200, L100.0100 ####[facility] [address] [place], [address] Eosinophils/100 WBC (Bld) 3.1 % Normal 0-5 [facility] Comment on above: Order Comment: 212 Performed By: #### L 506.1001, L500.4100, L500.2500, L501.9520, L501.5200, L100.0100 ####[facility] [address] [place], [address] Erythrocyte distribution width (RBC) [Ratio] 16.7 % High 11.6-14.6 [facility] Comment on above: Order Comment: 212 Performed By: #### L 506.1001, L500.4100, L500.2500, L501.9520, L501.5200, L100.0100 ####[facility] [address] [place], [address] Hematocrit (Bld) [Volume fraction] 39.3 % Low 40-54 [facility] Comment on above: Order Comment: 212 Performed By: #### L 506.1001, L500.4100, L500.2500, L501.9520, L501.5200, L100.0100 ####[facility] [address] [place], [address] Hemoglobin (Bld) [Mass/Vol] 12.0 g/dL Low 13.0-16.5 [facility] Comment on above: Order Comment: 212 Performed By: #### L 506.1001, L500.4100, L500.2500, L501.9520, L501.5200, L100.0100 ####[facility] [address] [place], [address] IG% 0.400 Normal 0.0-0.9 [facility] Comment on above: Order Comment: 212 Result Comment: IG% - Immature Granulocytes (promyelocytes, myelocytes andmetamyelocytes) > 1% indicates that a LEFT SHIFT is Present. Performed By: #### L 506.1001, L500.4100, L500.2500, L501.9520, L501.5200, L100.0100 ####[facility] [address] [place], [address] Lymphocytes/100 WBC (Bld) 21.2 % Normal 19-41 [facility] Comment on above: Order Comment: 212 Performed By: #### L 506.1001, L500.4100, L500.2500, L501.9520, L501.5200, L100.0100 ####[facility] [address] [place], [address] MCH (RBC) [Entitic mass] 27.6 pg Normal 27.0-32.0 [facility] Comment on above: Order Comment: 212 Performed By: #### L 506.1001, L500.4100, L500.2500, L501.9520, L501.5200, L100.0100 ####[facility] [address] [place], [address] MCHC (RBC) [Mass/Vol] 30.5 g/dL Low 32-36 [facility] Comment on above: Order Comment: 212 Performed By: #### L 506.1001, L500.4100, L500.2500, L501.9520, L501.5200, L100.0100 ####[facility] [address] [place], [address] MCV (RBC) [Entitic vol] 90.3 fL Normal 80-94 [facility] Comment on above: Order Comment: 212 Performed By: #### L 506.1001, L500.4100, L500.2500, L501.9520, L501.5200, L100.0100 ####[facility] [address] [place], [address] Monocytes/100 WBC (Bld) 11.8 % High 0-10 [facility] Comment on above: Order Comment: 212 Performed By: #### L 506.1001, L500.4100, L500.2500, L501.9520, L501.5200, L100.0100 ####[facility] [address] [place], [address] Neutrophils/100 WBC (Bld) 62.2 % Normal 47-70 [facility] Comment on above: Order Comment: 212 Performed By: #### L 506.1001, L500.4100, L500.2500, L501.9520, L501.5200, L100.0100 ####[facility] [address] [place], [address] Nucleated RBC (Bld) [#/Vol] 0 10*3/uL Normal 0-5 [facility] Comment on above: Order Comment: 212 Performed By: #### L 506.1001, L500.4100, L500.2500, L501.9520, L501.5200, L100.0100 ####[facility] [address] [place], [address] Platelet mean volume (Bld) [Entitic vol] 12.5 fL High 6.2-12.0 [facility] Comment on above: Order Comment: 212 Performed By: #### L 506.1001, L500.4100, L500.2500, L501.9520, L501.5200, L100.0100 ####[facility] [address] [place], [address] Platelets (Bld) [#/Vol] 119 10*3/uL Low 150-450 [facility] Comment on above: Order Comment: 212 Performed By: #### L 506.1001, L500.4100, L500.2500, L501.9520, L501.5200, L100.0100 ####[facility] [address] [place], [address] RBC (Bld) [#/Vol] 4.35 10*6/uL Low 4.6-6.2 [facility] Comment on above: Order Comment: 212 Performed By: #### L 506.1001, L500.4100, L500.2500, L501.9520, L501.5200, L100.0100 ####[facility] [address] [place], [place], [address] RDW SD 55.2 fl High 35.1-43.9 [facility] Comment on above: Order Comment: 212 Performed By: #### L 506.1001, L500.4100, L500.2500, L501.9520, L501.5200, L100.0100 ####[facility] [address] [place], [place], [address] WBC (Bld) [#/Vol] 5.5 10*3/uL Normal 4.4-11.0 [facility] Comment on above: Order Comment: 212 Performed By: #### L 506.1001, L500.4100, L500.2500, L501.9520, L501.5200, L100.0100 ####[facility] [address] [place], [place], [address] Calculated very low density lipoprotein (VLDL) cholesterol measurementOrdered By: Shari Hurd on 11-07-2024 Calculated very low density lipoprotein (VLDL) cholesterol measurement 13 mg/dL 5-40 [facility] Carbon dioxide, total [Moles /volume] in Central venous bloodOrdered By: Shari Hurd on 11-07-2024 CO2 [Moles/Vol] 25.2 mmol/L 21.0-32.0 [facility] Chloride assayOrdered By: Thai Hurd on 11-07-2024 Chloride [Moles/Vol] 104 mmol/L 98-108 [facility] Eosinophil percentageOrdered By: Shari Hurd on 11-07-2024 Eosinophils/100 WBC (Bld) 3.1 % 0-5 [facility] Erythrocyte distribution wid th ratioOrdered By: Shari Hurd on 11-07-2024 Erythrocyte distribution width (RBC) [Ratio] 16.7 % High 11.6-14.6 [facility] Erythrocyte distribution wid th standard deviationOrdered By: Shari Hurd on 11-07-2024 Erythrocyte distribution width (RBC) [Ratio] 55.2 fl High 35.1-43.9 [facility] Glomerular filtration rate ( GFR) estimation/1.73 sq m using serum, plasma, or whole bOrdered By: Shari Hurd on 11-07-2024 GFR/1.73 sq M.predicted among non-blacks MDRD (S/P/Bld) [Vol rate/Area] 37 mL/min/{1.73_m2} Low >60 [facility] Comment on above: mL/min/1.73m2 CKD-EP I Creatinine Equation (2020) Hematocrit Auto (Bld) [Volum e fraction]Ordered By: Shari Hurd on 11-07-2024 Hematocrit (Bld) [Volume fraction] 39.3 % Low 40-54 [facility] Hemoglobin measurementOrdere d By: Shari Hurd on 11-07-2024 Hemoglobin (Bld) [Mass/Vol] 12.0 g/dL Low 13.0-16.5 [facility] Immature granulocytes/100 WB C Auto (Bld)Ordered By: Shari Hurd on 11-07-2024 Immature granulocytes/100 WBC (Bld) 0.400 % 0.0-0.9 [facility] Comment on above: IG% - Immature Granu locytes (promyelocytes, myelocytes and metamyelocytes) > 1% indicates that a LEFT SHIFT is Present. LDL calc ser/plasOrdered By: Shari Hurd on 11-07-2024 Cholesterol in LDL [Mass/Vol] 13 mg/dL [facility] Comment on above: Ejruadxmiu=736-186 m g/dL & Higher Lxlz=930 mg/dL or greaterFriedwald Equation for LDL-C Lipid Profileon 11-07-2024 CHOL:HDL 1.63 Normal [facility] Comment on above: Order Comment: 212 Performed By: #### L 506.1001, L500.4100, L500.2500, L501.9520, L501.5200, L100.0100 ####[facility] [address] [place], [address] Cholesterol [Mass/Vol] 67 mg/dL Normal <=200 [facility] Comment on above: Order Comment: 212 Result Comment: Chol esterol level, Desirable <200 mg/dLBorderline high cholesterol 200-239 mg/dLHigh cholesterol >=240 mg/dLRecommendations of the NCEP Adult Treatment Panel for thefollowing risk-cutoff thresholds for the [place] [facility] centerulation. Performed By: #### L 506.1001, L500.4100, L500.2500, L501.9520, L501.5200, L100.0100 ####[facility] [address] [place], [address] Cholesterol in HDL [Mass/Vol] 41 mg/dL Normal [facility] Comment on above: Order Comment: 212 Result Comment: Anushka onal Cholesterol Education Program (NCEP) guidelines:<40 mg/dL: Low HDL-cholesterol (major risk factor for CHD)>= 60 mg/dL: High HDL-cholesterol (negative risk factor forCHD)HDL-cholesterol is affected by a number of factors, e.g.smoking, exercise, hormones, sex and age. Performed By: #### L 506.1001, L500.4100, L500.2500, L501.9520, L501.5200, L100.0100 ####[facility] [address] [place], [address] Cholesterol in LDL [Mass/Vol] 13 mg/dL Normal [facility] Comment on above: Order Comment: 212 Result Comment: Bord thbmrv=344-800 mg/dL Higher Btna=010 mg/dL or greaterFriedwald Equation for LDL-C Performed By: #### L 506.1001, L500.4100, L500.2500, L501.9520, L501.5200, L100.0100 ####[facility] [address] [place], [address] Cholesterol in VLDL [Mass/Vol] 13 mg/dL Normal 5-40 [facility] Comment on above: Order Comment: 212 Performed By: #### L 506.1001, L500.4100, L500.2500, L501.9520, L501.5200, L100.0100 ####[facility] [address] [place], [address] Triglyceride [Mass/Vol] 64 mg/dL Normal [facility] Comment on above: Order Comment: 212 Result Comment: The drugs N-Acetylcysteine and Metamizole may falselydepress this assay.Normal range: <150 mg/dLBorderline High: 150-199 mg/dLHigh: 200-499 mg/dLVery High: >500 mg/dL Performed By: #### L 506.1001, L500.4100, L500.2500, L501.9520, L501.5200, L100.0100 ####[facility] [address] [place], [place], [phone] MCV (mean corpuscular volume ) determinationOrdered By: Shari Hurd on 11-07-2024 MCV (RBC) [Entitic vol] 90.3 fL 80-94 [facility] Magnesiumon 11-07-2024 Magnesium [Mass/Vol] 1.7 mg/dL Normal 1.5-2.2 [facility] Comment on above: Order Comment: 212 Performed By: #### L 506.1001, L500.4100, L500.2500, L501.9520, L501.5200, L100.0100 ####[facility] [address] [place], [place], [address] Magnesium measurement (mass/ volume)Ordered By: Shari Hurd on 11-07-2024 Magnesium (Unsp spec) [Mass/Vol] 1.7 mg/dL 1.5-2.2 [facility] Mean corpuscular hemoglobin (MCH) determinationOrdered By: Shari Hurd on 11-07-2024 MCH (RBC) [Entitic mass] 27.6 pg 27.0-32.0 [facility] Mean corpuscular hemoglobin concentration (MCHC) determinationOrdered By: Shari Hurd on 11-07-2024 MCHC (RBC) [Mass/Vol] 30.5 g/dL Low 32-36 [facility] Mean platelet volume determi nationOrdered By: Shari Hurd on 11-07-2024 Platelet mean volume (Bld) [Entitic vol] 12.5 fL High 6.2-12.0 [facility] Monocyte percentageOrdered B y: Shari Hurd on 11-07-2024 Monocytes/100 WBC (Bld) 11.8 % High 0-10 [facility] Neutrophil percentageOrdered By: Shari Hurd on 11-07-2024 Neutrophils/100 WBC (Bld) 62.2 % 47-70 [facility] Nucleated red blood cell per centageOrdered By: Shari Hurd on 11-07-2024 Nucleated RBC/100 WBC (Bld) [Ratio] 0 % 0-5 [facility] Platelet countOrdered By: Thai Hurd on 11-07-2024 Platelets (Bld) [#/Vol] 119 10*3/uL Low 150-450 [facility] Potassium measurement (mass/ volume)Ordered By: Shari Hurd on 11-07-2024 Potassium (Unsp spec) [Mass/Vol] 3.8 mmol/L 3.3-5.1 [facility] RBC Auto (Bld) [#/Vol]Ordere d By: Shari Hurd on 11-07-2024 RBC (Bld) [#/Vol] 4.35 10*6/uL Low 4.6-6.2 [facility] Screening total cholesterol/ high density lipoprotein (HDL) cholesterol ratioOrdered By: Shari Hurd on 11-07-2024 Cholesterol.total/Gerri sterol in HDL [Mass ratio] 1.63 {ratio} [facility] Serum creatinine measurement (mass/volume)Ordered By: Shari Hurd on 11-07-2024 Creatinine [Mass/Vol] 1.89 mg/dL High 0.70-1.20 [facility] Serum glucose measurement (m ass/volume)Ordered By: Shari Hurd on 11-07-2024 Glucose [Mass/Vol] 73 mg/dL 70-99 [facility] Serum or plasma calcium camille urement (mass/volume)Ordered By: Shari Hurd on 11-07-2024 Calcium [Mass/Vol] 9.3 mg/dL 7.6-11.0 [facility] Serum or plasma cholesterol in HDL measurement (mass/volume)Ordered By: Shari Hurd on 11-07-2024 Cholesterol in HDL [Mass/Vol] 41 mg/dL >40 [facility] Comment on above: National Cholesterol Education Program (NCEP) guidelines:<40 mg/dL: Low HDL-cholesterol (major risk factor for CHD)>= 60 mg/dL: High HDL-cholesterol (negative risk factor for CHD)HDL-cholesterol is affected by a number of factors, e.g. smoking, exercise, hormones, sex and age. Serum or plasma cholesterol measurement (mass/volume)Ordered By: Shari Hurd on 11-07-2024 Cholesterol [Mass/Vol] 67 mg/dL <201 [facility] Comment on above: Cholesterol level, D esirable <200 mg/dLBorderline high cholesterol 200-239 mg/dLHigh cholesterol >=240 mg/dLRecommendations of the NCEP Adult Treatment Panel for the following risk-cutoff thresholds for the [place] population. Serum or plasma urea nitroge n measurement (mass/volume)Ordered By: Shari Hurd on 11-07-2024 Urea nitrogen [Mass/Vol] 10 mg/dL 4-19 [facility] Sodium levelOrdered By: Sarahy Hurd on 11-07-2024 Sodium [Moles/Vol] 141 mmol/L 133-145 [facility] TSH DL <= 0.005 mIU/L QnOrde red By: Shari Hurd on 11-07-2024 TSH Qn 0.058 uIU/mL Low 0.300-4.20 0 [facility] Thyroid Stim Hormone (TSH)on 11-07-2024 TSH 0.058 uIU/mL Low 0.300-4.20 0 [facility] Comment on above: Order Comment: 212 Performed By: #### L 506.1001, L500.4100, L500.2500, L501.9520, L501.5200, L100.0100 ####[facility] [address] [place], [address] Triglycerides measurementOrd ered By: Shari Hurd on 11-07-2024 Triglyceride [Mass/Vol] 64 mg/dL <199 [facility] Comment on above: The drugs N-Acetylcy steine and Metamizole may falsely depress this assay. Normal range: <150 mg/dLBorderline High: 150-199 mg/dLHigh: 200-499 mg/dLVery High: >500 mg/dL Vitamin D,25 Hydroxyon 11-07 Vitamin D 25-OH 58.1 ng/mL Normal 30-100 [facility] Comment on above: Order Comment: 212 Result Comment: Yvonne min D StatusDeficiency: <20 ng/mL (50nmol/L)Insufficiency: 20-30 ng/mL (50-75 nmol/L)Sufficiency: 30-100 ng/mL (75-250 nmol/L)Toxicity: >100 ng/mL (>250 nmol/L) Performed By: #### L 506.1001, L500.4100, L500.2500, L501.9520, L501.5200, L100.0100 ####[facility] [address] [place], [address] White blood cell (WBC) count Ordered By: Shari Hurd on 11-07-2024 WBC (Bld) [#/Vol] 5.5 10*3/uL 4.4-11.0 [facility] Anion gap in Serum or Plasma Ordered By: Shari Hurd on 10-31-2024 Anion gap [Moles/Vol] 11 mmol/L 5-15 [facility] BUN/creatinine ratioOrdered By: Shari Hurd on 10-31-2024 Urea nitrogen/Creatinine [Mass ratio] 5.9 mg/mg Low 10-20 [facility] Basic Metabolic Profile (BMP )on 10-31-2024 BUN/CRE 5.9 RATIO Low 10- [facility] Comment on above: Order Comment: 212 Performed By: #### L 500.2500, L100.0500 ####[facility] [address] [place], [address] Calcium [Mass/Vol] 9.1 mg/dL Normal 7.6-11.0 [facility] Comment on above: Order Comment: 212 Performed By: #### L 500.2500, L100.0500 ####[facility] [address] [place], [address] Chloride [Moles/Vol] 107 mmol/L Normal 98-108 [facility] Comment on above: Order Comment: 212 Performed By: #### L 500.2500, L100.0500 ####[facility] [address] [place], [address] CO2 [Moles/Vol] 24.3 mmol/L Normal 21.0-32.0 [facility] Comment on above: Order Comment: 212 Performed By: #### L 500.2500, L100.0500 ####[facility] [address] [place], [address] Creatinine [Mass/Vol] 1.80 mg/dL High 0.70-1.20 [facility] Comment on above: Order Comment: 212 Performed By: #### L 500.2500, L100.0500 ####[facility] [address] [place], [address] GAP 11 Normal 5-15 [facility] Comment on above: Order Comment: 212 Performed By: #### L 500.2500, L100.0500 ####[facility] [address] [place], [address] GFR/1.73 sq M.predicted among non-blacks MDRD (S/P/Bld) [Vol rate/Area] 39 mL/min/{1.73_m2} Low >60 [facility] Comment on above: Order Comment: 212 Result Comment: mL/m in/1.73m2 CKD-EPI Creatinine Equation (2020) Performed By: #### L 500.2500, L100.0500 ####[facility] [address] [place], [address] Glucose [Mass/Vol] 86 mg/dL Normal 70-99 [facility] Comment on above: Order Comment: 212 Performed By: #### L 500.2500, L100.0500 ####[facility] [address] [place], [address] Potassium [Moles/Vol] 4.0 mmol/L Normal 3.3-5.1 [facility] Comment on above: Order Comment: 212 Performed By: #### L 500.2500, L100.0500 ####[facility] [address] [place], [address] Sodium [Moles/Vol] 142 mmol/L Normal 133-145 [facility] Comment on above: Order Comment: 212 Performed By: #### L 500.2500, L100.0500 ####[facility] [address] [place], [address] Urea nitrogen [Mass/Vol] 11 mg/dL Normal 4-19 [facility] Comment on above: Order Comment: 212 Performed By: #### L 500.2500, L100.0500 ####[facility] [address] [place], [address] CBC-Complete Blood Cnt No Di ffon 10-31-2024 Platelets (Bld) [#/Vol] 81 10*3/uL Low 150-450 [facility] Comment on above: Order Comment: 212 Performed By: #### L 500.2500, L100.0500 ####[facility] [address] [place], [address] RDW SD 55.0 fl High 35.1-43.9 [facility] Comment on above: Order Comment: 212 Performed By: #### L 500.2500, L100.0500 ####[facility] [address] [place], [address] CBC-Complete Blood Cnt No Di ffOrdered By: Shari Hurd on 10-31-2024 Erythrocyte distribution width (RBC) [Ratio] 16.8 % High 11.6-14.6 [facility] Comment on above: Order Comment: 212 Performed By: #### L 500.2500, L100.0500 ####[facility] [address] [place], [address] Hematocrit (Bld) [Volume fraction] 36.9 % Low 40-54 [facility] Comment on above: Order Comment: 212 Performed By: #### L 500.2500, L100.0500 ####[facility] [address] [place], [address] Hemoglobin (Bld) [Mass/Vol] 11.2 g/dL Low 13.0-16.5 [facility] Comment on above: Order Comment: 212 Performed By: #### L 500.2500, L100.0500 ####[facility] [address] [place], [address] MCH (RBC) [Entitic mass] 27.3 pg Normal 27.0-32.0 [facility] Comment on above: Order Comment: 212 Performed By: #### L 500.2500, L100.0500 ####[facility] [address] [place], [address] MCHC (RBC) [Mass/Vol] 30.4 g/dL Low 32-36 [facility] Comment on above: Order Comment: 212 Performed By: #### L 500.2500, L100.0500 ####[facility] [address] [place], [address] MCV (RBC) [Entitic vol] 90.0 fL Normal 80-94 [facility] Comment on above: Order Comment: 212 Performed By: #### L 500.2500, L100.0500 ####[facility] [address] [place], [address] Platelet mean volume (Bld) [Entitic vol] 13.3 fL High 6.2-12.0 [facility] Comment on above: Order Comment: 212 Performed By: #### L 500.2500, L100.0500 ####[facility] [address] [place], [address] RBC (Bld) [#/Vol] 4.10 10*6/uL Low 4.6-6.2 [facility] Comment on above: Order Comment: 212 Performed By: #### L 500.2500, L100.0500 ####[facility] [address] [place], [address] WBC (Bld) [#/Vol] 6.4 10*3/uL Normal 4.4-11.0 [facility] Comment on above: Order Comment: 212 Performed By: #### L 500.2500, L100.0500 ####[facility] [address] [place], [address] Carbon dioxide, total [Moles /volume] in Central venous bloodOrdered By: Shari Hurd on 10-31-2024 CO2 [Moles/Vol] 24.3 mmol/L 21.0-32.0 [facility] Chloride assayOrdered By: Thai Hurd on 10-31-2024 Chloride [Moles/Vol] 107 mmol/L 98-108 [facility] Erythrocyte distribution wid th standard deviationOrdered By: Shari Hurd on 10-31-2024 Erythrocyte distribution width (RBC) [Ratio] 55.0 fl High 35.1-43.9 [facility] Glomerular filtration rate ( GFR) estimation/1.73 sq m using serum, plasma, or whole bOrdered By: Shari Hurd on 10-31-2024 GFR/1.73 sq M.predicted among non-blacks MDRD (S/P/Bld) [Vol rate/Area] 39 mL/min/{1.73_m2} Low >60 [facility] Comment on above: mL/min/1.73m2 CKD-EP I Creatinine Equation (2020) Platelet countOrdered By: Thai Hurd on 10-31-2024 Platelets (Bld) [#/Vol] 81 10*3/uL Low 150-450 [facility] Potassium measurement (mass/ volume)Ordered By: Shari Hurd on 10-31-2024 Potassium (Unsp spec) [Mass/Vol] 4.0 mmol/L 3.3-5.1 [facility] Serum creatinine measurement (mass/volume)Ordered By: Shari Hurd on 10-31-2024 Creatinine [Mass/Vol] 1.80 mg/dL High 0.70-1.20 [facility] Serum glucose measurement (m ass/volume)Ordered By: Shari Hurd on 10-31-2024 Glucose [Mass/Vol] 86 mg/dL 70-99 [facility] Serum or plasma calcium camille urement (mass/volume)Ordered By: Shari Hurd on 10-31-2024 Calcium [Mass/Vol] 9.1 mg/dL 7.6-11.0 [facility] Serum or plasma urea nitroge n measurement (mass/volume)Ordered By: Shari Hurd on 10-31-2024 Urea nitrogen [Mass/Vol] 11 mg/dL 4-19 [facility] Sodium levelOrdered By: Sarahy Hurd on 10-31-2024 Sodium [Moles/Vol] 142 mmol/L 133-145 [facility] Basic metabolic 2000 panelon 10-30-2024 Anion gap [Moles/Vol] 9 mmol/L Normal 8-15 [facility] Comment on above: Order Comment: Speci men Type: BLOOD SPECIMEN Ordering Facility: [facility] Address: [address] [place] [address] Performed By: #### 3 4528-0, PTTAC #### [facility] CLIA [id number] [address] [place] Calcium [Mass/Vol] 8.7 mg/dL Normal 8.5-10.2 [facility] Comment on above: Order Comment: Speci men Type: BLOOD SPECIMEN Ordering Facility: [facility] Address: [address] [place] [address] Performed By: #### 3 4528-0, PTTAC #### [facility] CLIA [id number] [address] [place] [address] [place] Chloride [Moles/Vol] 108 mmol/L High 98-107 [facility] Comment on above: Order Comment: Speci men Type: BLOOD SPECIMEN Ordering Facility: [facility] Address: [address] [place] [address] Performed By: #### 3 4528-0, PTTAC #### [facility] CLIA [id number] [address] [place] [address] [place] CO2 [Moles/Vol] 24 mmol/L Normal 22-30 [facility] Comment on above: Order Comment: Speci men Type: BLOOD SPECIMEN Ordering Facility: [facility] Address: [address] [place] [address] Performed By: #### 3 4528-0, PTTAC #### [facility] CLIA [id number] [address] [place] Creatinine [Mass/Vol] 1.47 mg/dL High 0.73-1.22 [facility] Comment on above: Order Comment: Speci men Type: BLOOD SPECIMEN Ordering Facility: [facility] Address: [address] [place] [address] Performed By: #### 3 4528-0, PTTAC #### [facility] CLIA [id number] [address] [place] eGFRcr SerPlBld CKD-EPI 2020 50 mL/min/1.73m??? Low >=60 [facility] Comment on above: Order Comment: Speci men Type: BLOOD SPECIMEN Ordering Facility: [facility] Address: [address] [place] [address] Result Comment: Cathy mated Glomerular Filtration Rate (eGFR) is calculated using the 2020 CKD-EPI creatinine equation. This equation utilizes serum creatinine, sex, and age as parameters. The creatinine assay has traceable calibration to isotope dilution-mass spectrometry. Refer to KDIGO guidelines for clinical interpretation. In patients with unstable renal function, e.g. those with acute kidney injury, the eGFR may not accurately reflect actual GFR. Performed By: #### 3 4528-0, PTTAC #### [facility] CLIA [id number] [address] [place] [address] [place] Glucose [Mass/Vol] 93 mg/dL Normal 74-99 [facility] Comment on above: Order Comment: Chadwick reid Type: BLOOD SPECIMEN Ordering Facility: [facility] Address: [address] [place] [address] Result Comment: The [place] Diabetes Association (ADA) provides guidance for cutoff [...] Standards of Medical Care in Diabetes 2016, [place] [employer]. Diabetes Care. 2016.39(Suppl 1). Performed By: #### 3 4528-0, PTTAC #### [facility] CLIA [id number] [address] [place] [address] [place] Potassium [Moles/Vol] 4.2 mmol/L Normal 3.7-5.1 [facility] Comment on above: Order Comment: Chadwick reid Type: BLOOD SPECIMEN Ordering Facility: [facility] Address: [address] [place] [address] Performed By: #### 3 4528-0, PTTAC #### [facility] CLIA [id number] [address] [place] [address] [place] Sodium [Moles/Vol] 141 mmol/L Normal 136-144 [facility] Comment on above: Order Comment: Chadwick reid Type: BLOOD SPECIMEN Ordering Facility: [facility] Address: [address] [place] [address] Performed By: #### 3 4528-0, PTTAC #### [facility] CLIA [id number] [address] [facility] Urea nitrogen [Mass/Vol] 10 mg/dL Normal 9-24 [facility] Comment on above: Order Comment: Speci men Type: BLOOD SPECIMEN Ordering Facility: [facility] Address: [address] [place] [address] Performed By: #### 3 4528-0, PTTAC #### [facility] CLIA [id number] [address] [place] CBC panel Auto (Bld)on 10-30 Erythrocyte distribution width (RBC) [Ratio] 16.4 % High 11.5-15.0 [facility] Comment on above: Order Comment: Speci men Type: BLOOD SPECIMEN Ordering Facility: [facility] Address: [address] [place] [address] Performed By: #### 2 4321-2 #### [facility] CLIA [id number] [address] Hematocrit (Bld) [Volume fraction] 35.6 % Low 39.0-51.0 [facility] Comment on above: Order Comment: Speci men Type: BLOOD SPECIMEN Ordering Facility: [facility] Address: [address] [place] [address] Performed By: #### 2 4321-2 #### [facility] CLIA [id number] [address] Hemoglobin (Bld) [Mass/Vol] 10.8 g/dL Low 13.0-17.0 [facility] Comment on above: Order Comment: Speci men Type: BLOOD SPECIMEN Ordering Facility: [facility] Address: [address] [place] [address] Performed By: #### 2 4321-2 #### [facility] CLIA [id number] [address] MCH (RBC) [Entitic mass] 27.3 pg Normal 26.0-34.0 [facility] Comment on above: Order Comment: Speci men Type: BLOOD SPECIMEN Ordering Facility: [facility] Address: [address] [place] [address] Performed By: #### 2 4321-2 #### [facility] CLIA [id number] [address] [place] MCHC (RBC) [Mass/Vol] 30.3 g/dL Low 30.5-36.0 [facility] Comment on above: Order Comment: Speci men Type: BLOOD SPECIMEN Ordering Facility: [facility] Address: [address] [place] [address] Performed By: #### 2 4321-2 #### [facility] CLIA [id number] [address] [place] MCV (RBC) [Entitic vol] 89.9 fL Normal 80.0-100.0 [facility] Comment on above: Order Comment: Speci men Type: BLOOD SPECIMEN Ordering Facility: [facility] Address: [address] [place] [address] Performed By: #### 2 4321-2 #### [facility] CLIA [id number] [address] Nucleated RBC (Bld) [#/Vol] 10*3/uL Normal <0.01 [facility] Comment on above: Order Comment: Speci men Type: BLOOD SPECIMEN Ordering Facility: [facility] Address: [address] [place] [address] Performed By: #### 2 4321-2 #### [facility] CLIA [id number] [address] [place] Platelet mean volume (Bld) [Entitic vol] 12.8 fL High 9.0-12.7 [facility] Comment on above: Order Comment: Speci men Type: BLOOD SPECIMEN Ordering Facility: [facility] Address: [address] [place] [address] Performed By: #### 2 4321-2 #### [facility] CLIA [id number] [address] [place] Platelets (Bld) [#/Vol] 83 10*3/uL Low 150-400 [facility] Comment on above: Order Comment: Speci men Type: BLOOD SPECIMEN Ordering Facility[facility] Address: [address] [place], [place] [address] Performed By: #### 2 4321-2 #### [facility] CLIA [id number] [address] RBC (Bld) [#/Vol] 3.96 10*6/uL Low 4.20-6.00 [facility] Comment on above: Order Comment: Speci men Type: BLOOD SPECIMEN Ordering Facility[facility] Address: [address] [place], [place] [address] Performed By: #### 2 4321-2 #### [facility] CLIA [id number] [address] WBC (Bld) [#/Vol] 5.49 10*3/uL Normal 3.70-11.00 [facility] Comment on above: Order Comment: Speci men Type: BLOOD SPECIMEN Ordering Facility[facility] Address: [address] [place] [address] Performed By: #### 2 4321-2 #### [facility] CLIA [id number] [address] CNDSon 10-30-2024 CNDS HNO ID: [id number] Author: DENITA SHEPARD MD Service: Hospital Medicine [...] the summary. TRANSITIONS OF CARE CRITICAL ISSUES: GREER MEDICATION CHANGES: None FOLLOW UP APPOINTMENTS: PCP, urology, GI LABS AND PROCEDURES PENDING AT DISCHARGE: None REASON FOR HOSPITALIZATION/FINAL DIAGNOSIS: Acute encephalopathy HOSPITAL PROBLEMS: Active Hospital Problems Diagnosis POA Acute metabolic encephalopathy Yes Unspecified hypothyroidism Yes 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[facility]) Yes History of CVA (cerebrovascular accident) Yes History of right-sided carotid endarterectomy Yes BPH (benign prostatic hyperplasia) Yes CKD (chronic kidney disease) stage 3, GFR 30-59 ml/min ([facility]) Yes 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der, with long-term current use of insulin ([facility]) Yes Embolic stroke involving right carotid artery ([facility]) Yes H/O aorto-femoral bypass Yes Resolved Hospital [...] planning discussed with daughter OPERATIONS/PROCEDURE DURING THIS HOSPITALIZA (more content not included)... Normal [facility] NUTRITIONon 10-30-2024 NUTRITION HNO ID: [id number] Author: GARY MOREJON RD Service: Nutrition Therapy Author Type: [...] NOW 10/27/242153 Anthropometrics: Height: 170.2 cm (5' 7") Weight: 81.7 kg (180 lb 1.9 oz) [...] 1 unit Time Spent (mins): 2 SIGNATURE: Gary Morejon RD PATIENT NAME: Emelia Johnson DATE: October 30, 2024 TIME: 3:40 PM [facility] Basic metabolic 2000 panelon 10-29-2024 Anion gap [Moles/Vol] 13 mmol/L Normal 8-15 [facility] Comment on above: Order Comment: Speci men Type: BLOOD SPECIMEN Ordering [facility] Address: [address] [place] [address] Performed By: #### 2 4321-2 #### [facility] CLIA [id number] [address] [place] [address] [place] Calcium [Mass/Vol] 8.9 mg/dL Normal 8.5-10.2 [facility] Comment on above: Order Comment: Speci men Type: BLOOD SPECIMEN Ordering [facility] Address: [address] [place] [address] Performed By: #### 2 4321-2 #### [facility] CLIA [id number] [address] [place] [address] [place] Chloride [Moles/Vol] 102 mmol/L Normal 98-107 [facility] Comment on above: Order Comment: Speci men Type: BLOOD SPECIMEN Ordering Facility[facility] Address: [address] [place] [address] Performed By: #### 2 4321-2 #### [facility] CLIA [id number] [address] [place] [address] [place] CO2 [Moles/Vol] 23 mmol/L Normal 22-30 [facility] Comment on above: Order Comment: Chadwick reid Type: BLOOD SPECIMEN Ordering Facility: [facility] Address: [address] [place] [address] Performed By: #### 2 4321-2 #### [facility] CLIA [id number] [address] [facility] Creatinine [Mass/Vol] 1.37 mg/dL High 0.73-1.22 [facility] Comment on above: Order Comment: Chadwick reid Type: BLOOD SPECIMEN Ordering Facility[facility] Address: [address] [place] [address] Performed By: #### 2 4321-2 #### [facility] CLIA [id number] [address] OF [facility] eGFRcr SerPlBld CKD-EPI 2020 54 mL/min/1.73m??? Low >=60 [facility] Comment on above: Order Comment: Chadwick reid Type: BLOOD SPECIMEN Ordering Facility: [facility] Address: [address] [place] [address] Result Comment: Cathy mated Glomerular Filtration Rate (eGFR) is calculated using the 2020 CKD-EPI creatinine equation. This equation utilizes serum creatinine, sex, and age as parameters. The creatinine assay has traceable calibration to isotope dilution-mass spectrometry. Refer to KDIGO guidelines for clinical interpretation. In patients with unstable renal function, e.g. those with acute kidney injury, the eGFR may not accurately reflect actual GFR. Performed By: #### 2 4321-2 #### [facility] CLIA [id number] [address] Glucose [Mass/Vol] 89 mg/dL Normal 74-99 [facility] Comment on above: Order Comment: Chadwick jeanette Type: BLOOD SPECIMEN [facility] Address: [address] [place] [address] Result Comment: The [place] Diabetes [employer] (ADA) provides guidance for cutoff [...] Standards of Medical Care in Diabetes 2016, [place] [employer]. Diabetes Care. 2016.39(Suppl 1). Performed By: #### 2 4321-2 #### [facility] CLIA [id number] [address] [place] [address] [place] Potassium [Moles/Vol] 3.8 mmol/L Normal 3.7-5.1 [facility] Comment on above: Order Comment: Chadwick reid Type: BLOOD SPECIMEN [facility]ing Facility: [facility] Address: [address] [place] [address] Performed By: #### 2 4321-2 #### [facility] CLIA [id number] [address] Sodium [Moles/Vol] 138 mmol/L Normal 136-144 [facility] Comment on above: Order Comment: Aurelioi jeanette Type: BLOOD SPECIMEN Ordering Facility: [facility] Address: [address] [place] [address] Performed By: #### 2 4321-2 #### [facility] CLIA [id number] [address] Urea nitrogen [Mass/Vol] 10 mg/dL Normal 9-24 [facility] Comment on above: Order Comment: Chadwick reid Type: BLOOD SPECIMEN Ordering Facility: [facility] Address: [address] [place] [address] Performed By: #### 2 4321-2 #### [facility] CLIA [id number] [address] [place] CBC panel Auto (Bld)on 10-29 Erythrocyte distribution width (RBC) [Ratio] 16.1 % High 11.5-15.0 [facility] Comment on above: Order Comment: Chadwick reid Type: BLOOD SPECIMEN Ordering Facility: [facility] Address: [address] [place] [address] Performed By: #### 5 8410-2 #### [facility] CLIA [id number] [address] Hematocrit (Bld) [Volume fraction] 38.5 % Low 39.0-51.0 [facility] Comment on above: Order Comment: Speci men Type: BLOOD SPECIMEN Ordering Facility: [facility] Address: [address] [place] [address] Performed By: #### 5 8410-2 #### [facility] CLIA [id number] [address] Hemoglobin (Bld) [Mass/Vol] 11.9 g/dL Low 13.0-17.0 [facility] Comment on above: Order Comment: Speci men Type: BLOOD SPECIMEN Ordering Facility: [facility] Address: [address] [place] [address] Performed By: #### 5 8410-2 #### [facility] CLIA [id number] [address] MCH (RBC) [Entitic mass] 27.4 pg Normal 26.0-34.0 [facility] Comment on above: Order Comment: Speci men Type: BLOOD SPECIMEN Ordering Facility: [facility] Address: [address] [place] [address] Performed By: #### 5 8410-2 #### [facility] CLIA [id number] [address] MCHC (RBC) [Mass/Vol] 30.9 g/dL Normal 30.5-36.0 [facility] Comment on above: Order Comment: Speci men Type: BLOOD SPECIMEN Ordering Facility: [facility] Address: [address] [place] [address] Performed By: #### 5 8410-2 #### [facility] CLIA [id number] [address] MCV (RBC) [Entitic vol] 88.7 fL Normal 80.0-100.0 [facility] Comment on above: Order Comment: Speci men Type: BLOOD SPECIMEN Ordering Facility: [facility] Address: [address] [place] [address] Performed By: #### 5 8410-2 #### [facility] CLIA [id number] [address] [place] [address] [place] Nucleated RBC (Bld) [#/Vol] 10*3/uL Normal <0.01 [facility] Comment on above: Order Comment: Speci men Type: BLOOD SPECIMEN Ordering Facility: [facility] Address: [address] [place] [address] Performed By: #### 5 8410-2 #### [facility] CLIA [id number] [address] [place] [address] [place] Platelet mean volume (Bld) [Entitic vol] 12.2 fL Normal 9.0-12.7 [facility] Comment on above: Order Comment: Speci men Type: BLOOD SPECIMEN Ordering Facility: [facility] Address: [address] [place] [address] Performed By: #### 5 8410-2 #### [facility] CLIA [id number] [address] [place] [address] [place] Platelets (Bld) [#/Vol] 84 10*3/uL Low 150-400 [facility] Comment on above: Order Comment: Speci men Type: BLOOD SPECIMEN Ordering Facility: [facility] Address: [address] [place] [address] Performed By: #### 5 8410-2 #### [facility] CLIA [id number] [address] [place] [address] [place] RBC (Bld) [#/Vol] 4.34 10*6/uL Normal 4.20-6.00 [facility] Comment on above: Order Comment: Speci men Type: BLOOD SPECIMEN Ordering Facility: [facility] Address: [address] [place] [address] Performed By: #### 5 8410-2 #### [facility] CLIA [id number] [address] [place] WBC (Bld) [#/Vol] 6.21 10*3/uL Normal 3.70-11.00 [facility] Comment on above: Order Comment: Speci men Type: BLOOD SPECIMEN Ordering Facility: [facility] Address: [address] [place] [address] Performed By: #### 5 8410-2 #### [facility] CLIA [id number] [address] [place] PTT, ANTICOAGULANT THERAPYon 10-29-2024 aPTT Coag (PPP) [Time] 97.3 s High 23.0-32.4 [facility] Comment on above: Order Comment: Speci men Type: BLOOD SPECIMEN Ordering Facility: [facility] Address: [address] [place] [address] Performed By: #### 2 4321-2 #### [facility] CLIA [id number] [address] aPTT Coag (PPP) [Time] 73.8 s High 23.0-32.4 [facility] Comment on above: Order Comment: Speci men Type: BLOOD SPECIMEN Ordering Facility: [facility] Address: [address] [place] [address] Performed By: #### 2 4321-2 #### [facility] CLIA [id number] [address] [place] [address] [place] Basic metabolic 2000 panelon 10-28-2024 Anion gap [Moles/Vol] 14 mmol/L Normal 8-15 [facility] Comment on above: Order Comment: Speci men Type: BLOOD SPECIMEN Ordering Facility: [facility] Address: [address] [place] [address] Performed By: #### 3 4528-0, PTTAC #### [facility] CLIA [id number] [address] [place] [address] [place] Calcium [Mass/Vol] 8.8 mg/dL Normal 8.5-10.2 [facility] Comment on above: Order Comment: Speci men Type: BLOOD SPECIMEN Ordering Facility: [facility] Address: [address] [place] [address] Performed By: #### 3 4528-0, PTTAC #### [facility] CLIA [id number] [address] [place] [address] [place] Chloride [Moles/Vol] 105 mmol/L Normal 98-107 [facility] Comment on above: Order Comment: Speci men Type: BLOOD SPECIMEN Ordering Facility: [facility] Address: [address] [place] [address] Performed By: #### 3 4528-0, PTTAC #### [facility] CLIA [id number] [address] [place] [address] [place] CO2 [Moles/Vol] 22 mmol/L Normal 22-30 [facility] Comment on above: Order Comment: Speci men Type: BLOOD SPECIMEN Ordering Facility: [facility] Address: [address] [place] [address] Performed By: #### 3 4528-0, PTTAC #### [facility] CLIA [id number] [address] [place] Creatinine [Mass/Vol] 1.41 mg/dL High 0.73-1.22 [facility] Comment on above: Order Comment: Speci men Type: BLOOD SPECIMEN Ordering Facility: [facility] Address: [address] [place] [address] Performed By: #### 3 4528-0, PTTAC #### [facility] CLIA [id number] [address] [place] eGFRcr SerPlBld CKD-EPI 2020 52 mL/min/1.73m??? Low >=60 [facility] Comment on above: Order Comment: Chadwick men Type: BLOOD SPECIMEN Ordering Facility: [facility] Address: [address] [place] [address] Result Comment: Cathy mated Glomerular Filtration Rate (eGFR) is calculated using the 2020 CKD-EPI creatinine equation. This equation utilizes serum creatinine, sex, and age as parameters. The creatinine assay has traceable calibration to isotope dilution-mass spectrometry. Refer to KDIGO guidelines for clinical interpretation. In patients with unstable renal function, e.g. those with acute kidney injury, the eGFR may not accurately reflect actual GFR. Performed By: #### 3 4528-0, PTTAC #### [facility] CLIA [id number] [address] [place] Glucose [Mass/Vol] 80 mg/dL Normal 74-99 [facility] Comment on above: Order Comment: Chadwick reid Type: BLOOD SPECIMEN Ordering Facility: [facility] Address: [address] [place] [address] Result Comment: The [place] [employer] (ADA) provides guidance for cutoff [...] Standards of Medical Care in Diabetes 2016, [place] [employer]. Diabetes Care. 2016.39(Suppl 1). Performed By: #### 3 4528-0, PTTAC #### [facility] CLIA [id number] [address] [place] [address] [place] Potassium [Moles/Vol] 3.2 mmol/L Low 3.7-5.1 [facility] Comment on above: Order Comment: Chadwick reid Type: BLOOD SPECIMEN Ordering Facility: [facility] Address: [address] [place] [address] Performed By: #### 3 4528-0, PTTAC #### [facility] CLIA [id number] [address] [place] [address] [place] Sodium [Moles/Vol] 141 mmol/L Normal 136-144 [facility] Comment on above: Order Comment: Chadwick reid Type: BLOOD SPECIMEN Ordering Facility: [facility] Address: [address] [place] [address] Performed By: #### 3 4528-0, PTTAC #### [facility] CLIA [id number] [address] [place] [address] [place] Urea nitrogen [Mass/Vol] 11 mg/dL Normal 9-24 [facility] Comment on above: Order Comment: Chadwick reid Type: BLOOD SPECIMEN Ordering Facility: [facility] Address: [address] [place] [address] Performed By: #### 3 4528-0, PTTAC #### [facility] CLIA [id number] [address] CBC panel Auto (Bld)on 10-28 Erythrocyte distribution width (RBC) [Ratio] 16.0 % High 11.5-15.0 [facility] Comment on above: Order Comment: Speci men Type: BLOOD SPECIMEN Ordering Facility: [facility] Address: [address] [place] [address] Performed By: #### 5 8410-2 #### [facility] CLIA [id number] [address] Hematocrit (Bld) [Volume fraction] 38.3 % Low 39.0-51.0 [facility] Comment on above: Order Comment: Speci men Type: BLOOD SPECIMEN Ordering Facility: [facility] Address: [address] [place] [address] Performed By: #### 5 8410-2 #### [facility] CLIA [id number] [address] Hemoglobin (Bld) [Mass/Vol] 12.0 g/dL Low 13.0-17.0 [facility] Comment on above: Order Comment: Speci men Type: BLOOD SPECIMEN Ordering Facility: [facility] Address: [address] [place] [address] Performed By: #### 5 8410-2 #### [facility] CLIA [id number] [address] MCH (RBC) [Entitic mass] 27.5 pg Normal 26.0-34.0 [facility] Comment on above: Order Comment: Speci men Type: BLOOD SPECIMEN Ordering Facility: [facility] Address: [address] [place] [address] Performed By: #### 5 8410-2 #### [facility] CLIA [id number] [address] MCHC (RBC) [Mass/Vol] 31.3 g/dL Normal 30.5-36.0 [facility] Comment on above: Order Comment: Speci men Type: BLOOD SPECIMEN Ordering Facility: [facility] Address: [address] [place] [address] Performed By: #### 5 8410-2 #### [facility] CLIA [id number] [address] [place] [address] [place] MCV (RBC) [Entitic vol] 87.6 fL Normal 80.0-100.0 [facility] Comment on above: Order Comment: Speci men Type: BLOOD SPECIMEN Ordering Facility: [facility] Address: [address] [place] [address] Performed By: #### 5 8410-2 #### [facility] CLIA [id number] [address] [place] [address] [place] Nucleated RBC (Bld) [#/Vol] 10*3/uL Normal <0.01 [facility] Comment on above: Order Comment: Speci men Type: BLOOD SPECIMEN Ordering Facility: [facility] Address: [address] [place] [address] Performed By: #### 5 8410-2 #### [facility] CLIA [id number] [address] [place] [address] [place] Platelet mean volume (Bld) [Entitic vol] 12.6 fL Normal 9.0-12.7 [facility] Comment on above: Order Comment: Speci men Type: BLOOD SPECIMEN Ordering Facility: [facility] Address: [address] [place] [address] Performed By: #### 5 8410-2 #### [facility] CLIA [id number] [address] [place] [address] [place] Platelets (Bld) [#/Vol] 82 10*3/uL Low 150-400 M [facility] Comment on above: Order Comment: Speci men Type: BLOOD SPECIMEN Ordering Facility: [facility] Address: [facility] [place] [address] Performed By: #### 5 8410-2 #### [facility] CLIA [id number] [address] [place] [address] [place] RBC (Bld) [#/Vol] 4.37 10*6/uL Normal 4.20-6.00 [facility] Comment on above: Order Comment: Speci men Type: BLOOD SPECIMEN Ordering Facility: [facility] Address: [address] [place] [address] Performed By: #### 5 8410-2 #### [facility] CLIA [id number] [address] OF [facility] WBC (Bld) [#/Vol] 5.19 10*3/uL Normal 3.70-11.00 [facility] Comment on above: Order Comment: Speci men Type: BLOOD SPECIMEN Ordering Facility: [facility] Address: [address] [place] [address] Performed By: #### 5 8410-2 #### [facility] CLIA [id number] [address] [place] PTT, ANTICOAGULANT THERAPYon 10-28-2024 aPTT Coag (PPP) [Time] 91.1 s High 23.0-32.4 [facility] Comment on above: Order Comment: Speci men Type: BLOOD SPECIMEN Ordering Facility: [facility] Address: [address] [place] [address] Performed By: #### 2 4321-2 #### [facility] CLIA [id number] [address] aPTT Coag (PPP) [Time] 64.1 s High 23.0-32.4 [facility] Comment on above: Order Comment: Speci men Type: BLOOD SPECIMEN Ordering Facility: [facility] Address: [address] [place] [address] Performed By: #### 3 4528-0, PTTAC #### [facility] CLIA [id number] [address] aPTT Coag (PPP) [Time] 129.0 s High 23.0-32.4 [facility] Comment on above: Order Comment: Speci men Type: BLOOD SPECIMEN [facility]ing [facility] Address: [address] [place] [address] Result Comment: Samp le checked for clot. Performed By: #### 5 8410-2 #### [facility] CLIA [id number] [address] [place] [address] [place] THERAPY NTon 10-28-2024 THERAPY NT HNO ID: [id number] Author: KAREN NEVILLE PT Service: Physical Therapy Author Type: Physical Therapist Type: Therapy (PT/OT/Speech/Resp) Filed: 10/28/2024 14:01 Note Text: Summary: PT evaluation Physical Therapy Evaluation Summary SERVICE DATE: 10/28/2024 SERVICE TIME: 1212 to 1300 ROOM: [id number] PT 6 Clicks Score: 9 DISCHARGE RECOMMENDATIONS [...] sons, DIL, there are about 50 grandchildren everywhere" Assistance Available: 24-Hour Entry To Home: Ramp [...] Reduced mobility-other TREATMENT INTERVENTIONS Evaluation, Therapeutic Activity (04777) Timed Code Treatment (minutes): 23 Skilled Treatment Time (minutes): 38 $ Evaluation-Low (60573) Billed Units: 1 unit Therapeutic Activity (72709) Treatment Minutes: 23 $ Therapeutic Activity (32644) Billed Units: 2 units Range of Motion: [...] for controlled descent Bed to Chair Gait Addition (more content not included)... [facility] THERAPY NT HNO ID: [id number] Author: BLAINE DOVER OT/Joseph Service: ? Author Type: Occupational Therapist Type: Therapy (PT/OT/Speech/Resp) Filed: 10/28/2024 10:22 Note Text: Summary: OT Evaluation Occupational Therapy Evaluation Summary SERVICE DATE: 10/28/2024 SERVICE TIME: 0944 to 1010 ROOM: [place] [address] OT 6 Clicks Score: 11 DISCHARGE RECOMMENDATIONS [...] sons, DIL, there are about 50 grandchildren everywhere" Assistance Available: 24-Hour Entry To Home: Ramp [...] son wants me to go to a [facility]." RN cleared to work with, patient agreeable to this session COGNITION Orientation Deficits: Confused, Not oriented to Time Responsiveness: Alert, Awake Follows Commands: 2-step Commands Short Blessed Final Score: 21 (10/28/24) Patient completed the Short Blessed Test (also referred to as the Short Rnsdsxyqxrp-Dicfpe-Utkjbczy ation Test). This cognitive assessment measures the domains [...] Consistent with Dementia (evaluate for dementing disorder) [email or web address] [email or web address] THERAPY DIAGNOSIS Reduced mobility-other, Decreased activities of daily living (ADL), Muscle Weakness (generalized), Signs and Symptoms Involving Cognitive Functions and Awareness TREATMENT INTERVENTIONS Evaluation, Self Alf Management (21521) Timed Code Treatment (minutes): 11 Skilled Treatment Time (minutes): 26 TRAINING AND EDUCATION PROVIDED Activity Adaptation/Compensatory Strategies, Bed Mobility, Benefits of In-Hospital Mobility, Cognitive Skills, Command Following, Cognitive Prosthetics, Discharge Planning, Expected Functional Level, Functional Mobility Involving ADLs, Grooming Tasks, Delirium Reduction Techniques, Insight into Deficits, Lower Extremity Dressing, Memory/Attention, Orientation, Positioning, Role of Occupational Therapy, Safety/Judgment, Sitting Balance to Improve [place] with ADLs/Self-Care THERAPEUTIC SKILLS USED Activity Dosing, Cues for Sequencing/Proper Technique for Activity, Cuing Tactile, Cuing Verbal, Cuing Visual, Facilitation o (more content not included)... [facility] 10-27-2024 [facility] HNO ID: [id number] Author: MIKAELA CAMARA CT Service: Radiology Author Type: Technologist Type: [facility] Filed: 10/27/2024 23:34 Note Text: Radiology Service [...] PATIENT PRESENTS WITH AN IMPLANTABLE OR ATTACHED FIXED WING AIRCRAFT CREW CHIEF: N/A RADIOLOGY DEPARTMENT: Ultrasound PERIPHERAL IV DATA: Not applicable SIGNED BY: JOSEPH Smith October 27, 2024 11:33 PM [facility] HNO ID: [id number] Author: GARY LARSEN TECHNOLOGIST Service: Radiology Author Type: Technologist Type: [facility] Filed: 10/27/2024 18:06 Note Text: Radiology Service [...] PATIENT PRESENTS WITH AN IMPLANTABLE OR ATTACHED FIXED WING AIRCRAFT CREW CHIEF: No ALLERGIES: Reviewed and unchanged CONTRAST ALLERGY: [...] CT; Exam(s) Completed: Abdomen/Pelvis and Brain SIGNATURE: Gary Larsen TECHNOLOGIST PATIENT NAME: Emelia Johnson DATE: October 27, 2024 TIME: 6:05 PM [facility] HNO ID: [id number] Author: DILCIA GRAFF RT(R) Service: ? Author Type: Director Of Enterprise Strategy Type: [facility] Filed: 10/27/2024 16:18 Note [...] PATIENT PRESENTS WITH AN IMPLANTABLE OR ATTACHED FIXED WING AIRCRAFT CREW CHIEF: No RADIOLOGY DEPARTMENT: General X-ray: Exam(s) Completed: Chest X-Ray PERIPHERAL IV DATA: Not applicable SIGNED BY: RT Jer(R) October 27, 2024 4:17 PM [facility] Bacteria Bld Culton 10-28-19 25 Bacteria identified Cx Nom (Bld) CULTURE, BLOOD: No growth 5 days [facility] Comment on above: Performed By: #### 3 4528-0, PTTAC #### [facility] CLIA [id number] [address] Bacteria identified Cx Nom (Bld) CULTURE, BLOOD: No growth 5 days [facility] Comment on above: Performed By: #### 5 7021-8 #### [facility] CLIA [id number] [address] [place] [address] [place] [facility] [place] Bacteria Ur Culton 5 Bacteria identified Cx Nom (U) ORGANISM ID: 1 >=100,000 CFU/ml Mixed microbiota No further workup. Mixed microbiota can be due to???urine???contamination with skin bacteria at time of collection or presence of a long-term urinary catheter. If a new culture is needed, please consider re-education of the patient on proper midstream collection technique or straight catheterization for???urine???collection. [facility] Comment on above: Performed By: #### 3 4528-0, PTTAC #### [facility] CLIA [id number] [address] Bacteria identified Cx Nom (U) ORGANISM ID: 2 >=100,000 CFU/ml Enterobacter cloacae complex Two morphologically different colony types ORGANISM ID: 2 (ENTEROBACTER CLOACAE COMPLEX) --------- ANTIBIOTIC INTERPRETATION REGAN STATUS REFERENCE RANGE --------- Ampicillin R 16 F Cefepime S <=1 [...] <=32 , Intermediate >32 , Resistant >64 Abnormal [facility] Comment on above: Performed By: #### 6 30-4 ####[facility] [id number] [place] [address] [place] CBC W Auto Differential pane l (Bld)on 10-27-2024 Basophils (Bld) [#/Vol] 0.06 10*3/uL Normal <0.11 [facility] Comment on above: Order Comment: Speci men Type: BLOOD SPECIMEN [facility] Address: [address] [place] [address] Performed By: #### 5 7021-8 #### [facility] CLIA [id number] [address] Basophils/100 WBC (Bld) 0.8 % Normal [facility] Comment on above: Order Comment: Speci men Type: BLOOD SPECIMEN Ordering Facility: [facility] Address: [address] [place] [address] Performed By: #### 5 7021-8 #### [facility] CLIA [id number] [address] [place] [address] [place] Differential cell count method Nom (Bld) Auto Normal [facility] Comment on above: Order Comment: Speci men Type: BLOOD SPECIMEN Ordering Facility: [facility] Address: [address] [place] [address] Performed By: #### 5 7021-8 #### [facility] CLIA [id number] [address] [place] [address] [place] Eosinophils (Bld) [#/Vol] 0.17 10*3/uL Normal <0.46 [facility] Comment on above: Order Comment: Speci men Type: BLOOD SPECIMEN [facility]: [facility] Address: [address] [place] [address] Performed By: #### 5 7021-8 #### [facility] CLIA [id number] [address] Eosinophils/100 WBC (Bld) 2.2 % Normal [facility] Comment on above: Order Comment: Speci men Type: BLOOD SPECIMEN [facility]ing Facility: [facility] Address: [address] [place] [address] Performed By: #### 5 7021-8 #### [facility] CLIA [id number] [address] [place] Erythrocyte distribution width (RBC) [Ratio] 16.0 % High 11.5-15.0 [facility] Comment on above: Order Comment: Speci men Type: BLOOD SPECIMEN Ordering Facility: [facility] Address: [address] [place] [address] Performed By: #### 5 7021-8 #### [facility] CLIA [id number] [address] [place] Hematocrit (Bld) [Volume fraction] 41.4 % Normal 39.0-51.0 [facility] Comment on above: Order Comment: Speci men Type: BLOOD SPECIMEN [facility] Facility: [facility] Address: [address] [place] [address] Performed By: #### 5 7021-8 #### [facility] CLIA [id number] [address] [place] Hemoglobin (Bld) [Mass/Vol] 12.7 g/dL Low 13.0-17.0 [facility] Comment on above: Order Comment: Speci men Type: BLOOD SPECIMEN [facility] Facility: [facility] Address: [address] [place] [address] Performed By: #### 5 7021-8 #### [facility] CLIA [id number] [address] [place] Immature granulocytes (Bld) [#/Vol] 0.03 10*3/uL Normal <0.10 [facility] Comment on above: Order Comment: Speci men Type: BLOOD SPECIMEN [facility] Address: [address] [place] [address] Performed By: #### 5 7021-8 #### [facility] CLIA [id number] [address] [place] Immature granulocytes/100 WBC (Bld) 0.4 % Normal [facility] Comment on above: Order Comment: Speci men Type: BLOOD SPECIMEN [facility] Facility[facility] Address: [address] [place] [address] Performed By: #### 5 7021-8 #### [facility] CLIA [id number] [address] [place] Lymphocytes (Bld) [#/Vol] 1.13 10*3/uL Normal 1.00-4.00 [facility] Comment on above: Order Comment: Speci men Type: BLOOD SPECIMEN [facility]ing Facility: [facility] Address: [address] [place] [address] Performed By: #### 5 7021-8 #### [facility] CLIA [id number] [address] Lymphocytes/100 WBC (Bld) 14.7 % Normal [facility] Comment on above: Order Comment: Speci men Type: BLOOD SPECIMEN Ordering Facility: [facility] Address: [address] [place] [address] Performed By: #### 5 7021-8 #### [facility] CLIA [id number] [address] MCH (RBC) [Entitic mass] 27.2 pg Normal 26.0-34.0 [facility] Comment on above: Order Comment: Speci men Type: BLOOD SPECIMEN Ordering Facility: [facility] Address: [address] [place] [address] Performed By: #### 5 7021-8 #### [facility] CLIA [id number] [address] MCHC (RBC) [Mass/Vol] 30.7 g/dL Normal 30.5-36.0 [facility] Comment on above: Order Comment: Speci men Type: BLOOD SPECIMEN Ordering Facility: [facility] Address: [address] [place] [address] Performed By: #### 5 7021-8 #### [facility] CLIA [id number] [address] [place] MCV (RBC) [Entitic vol] 88.7 fL Normal 80.0-100.0 [facility] Comment on above: Order Comment: Speci men Type: BLOOD SPECIMEN Ordering Facility: [facility] Address: [address] [place] [address] Performed By: #### 5 7021-8 #### [facility] CLIA [id number] [address] Monocytes (Bld) [#/Vol] 0.57 10*3/uL Normal <0.87 [facility] Comment on above: Order Comment: Speci men Type: BLOOD SPECIMEN Ordering Facility: [facility] Address: [address] [place] [address] Performed By: #### 5 7021-8 #### [facility] CLIA [id number] [address] [place] [address] [place] Monocytes/100 WBC (Bld) 7.4 % Normal [facility] Comment on above: Order Comment: Speci men Type: BLOOD SPECIMEN Ordering Facility: [facility] Address: [address] [place] [address] Performed By: #### 5 7021-8 #### [facility] CLIA [id number] [address] [place] [address] [place] Neutrophils (Bld) [#/Vol] 5.72 10*3/uL Normal 1.45-7.50 [facility] Comment on above: Order Comment: Speci men Type: BLOOD SPECIMEN Ordering Facility: [facility] Address: [address] [place] [address] Performed By: #### 5 7021-8 #### [facility] CLIA [id number] [address] [place] [address] [place] Neutrophils/100 WBC (Bld) 74.5 % Normal [facility] Comment on above: Order Comment: Speci men Type: BLOOD SPECIMEN Ordering Facility: [facility] Address: [address] [place] [address] Performed By: #### 5 7021-8 #### [facility] CLIA [id number] [address] [place] [address] [place] Nucleated RBC (Bld) [#/Vol] 10*3/uL Normal <0.01 [facility] Comment on above: Order Comment: Speci men Type: BLOOD SPECIMEN Ordering Facility: [facility] Address: [address] [place] [address] Performed By: #### 5 7021-8 #### [facility] CLIA [id number] [address] [place] [address] [place] Nucleated RBC/100 WBC (Bld) [Ratio] 0.0 /100 WBC Normal [facility] Comment on above: Order Comment: Speci men Type: BLOOD SPECIMEN Ordering Facility: [facility] Address: [address] [place] [address] Performed By: #### 5 7021-8 #### [facility] CLIA [id number] [address] [place] [address] [place] Platelet mean volume (Bld) [Entitic vol] 12.2 fL Normal 9.0-12.7 [facility] Comment on above: Order Comment: Speci men Type: BLOOD SPECIMEN Ordering Facility: [facility] Address: [address] [place] [address] Performed By: #### 5 7021-8 #### [facility] CLIA [id number] [address] [place] [address] [place] Platelets (Bld) [#/Vol] 77 10*3/uL Low 150-400 M [facility] Comment on above: Order Comment: Speci men Type: BLOOD SPECIMEN Ordering Facility: [facility] Address: [address] [place] [address] Result Comment: No c lot detected. Performed By: #### 5 7021-8 #### [facility] CLIA [id number] [address] RBC (Bld) [#/Vol] 4.67 10*6/uL Normal 4.20-6.00 [facility] Comment on above: Order Comment: Speci men Type: BLOOD SPECIMEN Ordering Facility: [facility] Address: [address] [place] [address] Performed By: #### 5 7021-8 #### [facility] CLIA [id number] [address] [place] [address] [place] WBC (Bld) [#/Vol] 7.68 10*3/uL Normal 3.70-11.00 [facility] Comment on above: Order Comment: Speci men Type: BLOOD SPECIMEN Ordering [facility]: [facility] Address: [address] [place] [address] Performed By: #### 5 7021-8 #### [facility] CLIA [id number] [address] CBC panel Auto (Bld)on 10-27 Erythrocyte distribution width (RBC) [Ratio] 16.0 % High 11.5-15.0 [facility] Comment on above: Order Comment: Speci men Type: BLOOD SPECIMEN Ordering Facility: [facility] Address: [address] [place] [address] Performed By: #### 5 8410-2 #### [facility] CLIA [id number] [address] OF [facility] Hematocrit (Bld) [Volume fraction] 42.8 % Normal 39.0-51.0 [facility] Comment on above: Order Comment: Speci men Type: BLOOD SPECIMEN Ordering Facility: [facility] Address: [address] [place] [address] Performed By: #### 5 8410-2 #### [facility] CLIA [id number] [address] OF [facility] Hemoglobin (Bld) [Mass/Vol] 13.1 g/dL Normal 13.0-17.0 [facility] Comment on above: Order Comment: Speci men Type: BLOOD SPECIMEN Ordering Facility: [facility] Address: [address] [place] [address] Performed By: #### 5 8410-2 #### [facility] CLIA [id number] [address] MCH (RBC) [Entitic mass] 27.0 pg Normal 26.0-34.0 [facility] Comment on above: Order Comment: Speci men Type: BLOOD SPECIMEN Ordering Facility: [facility] Address: [address] [place] [address] Performed By: #### 5 8410-2 #### [facility] CLIA [id number] [address] [place] MCHC (RBC) [Mass/Vol] 30.6 g/dL Normal 30.5-36.0 [facility] Comment on above: Order Comment: Speci men Type: BLOOD SPECIMEN Ordering Facility: [facility] Address: [address] [place] [address] Performed By: #### 5 8410-2 #### [facility] CLIA [id number] [address] [place] MCV (RBC) [Entitic vol] 88.2 fL Normal 80.0-100.0 M [facility] Comment on above: Order Comment: Speci men Type: BLOOD SPECIMEN Ordering Facility: [facility] Address: [address] [place] [address] Performed By: #### 5 8410-2 #### [facility] CLIA [id number] [address] [place] Nucleated RBC (Bld) [#/Vol] 10*3/uL Normal <0.01 [facility] Comment on above: Order Comment: Speci men Type: BLOOD SPECIMEN Ordering Facility: [facility] Address: [address] [place] [address] Performed By: #### 5 8410-2 #### [facility] CLIA [id number] [address] Platelet mean volume (Bld) [Entitic vol] 11.6 fL Normal 9.0-12.7 [facility] Comment on above: Order Comment: Speci men Type: BLOOD SPECIMEN Ordering Facility: [facility] Address: [address] [place] [address] Performed By: #### 5 8410-2 #### [facility] CLIA [id number] [address] Platelets (Bld) [#/Vol] 85 10*3/uL Low 150-400 M [facility] Comment on above: Order Comment: Speci men Type: BLOOD SPECIMEN Ordering Facility: [facility] Address: [address] [place] [address] Performed By: #### 5 8410-2 #### [facility] CLIA [id number] [address] [place] [address] [place] RBC (Bld) [#/Vol] 4.85 10*6/uL Normal 4.20-6.00 [facility] Comment on above: Order Comment: Speci men Type: BLOOD SPECIMEN Ordering Facility: [facility] Address: [address] [place] [address] Performed By: #### 5 8410-2 #### [facility] CLIA [id number] [address] [place] [address] [place] WBC (Bld) [#/Vol] 5.59 10*3/uL Normal 3.70-11.00 [facility] Comment on above: Order Comment: Speci men Type: BLOOD SPECIMEN Ordering Facility: [facility] Address: [address] [place] [address] Performed By: #### 5 8410-2 #### [facility] CLIA [id number] [address] [place] [address] [place] [address] ABD/PEL W IVCONon 025 CT ABD/PEL W IVCON * * *Final Report* * * DATE OF EXAM: Oct 27 2024 6:09PM [facility] 0530 - CT ABD/PEL W IVCON / [...] compared to 07/03/2024 11. Resolved pleural effusions (more content not included)... Normal [facility] CT BRAIN WO IVCONon 10-28-19 CT BRAIN WO IVCON * * *Final Report* * * DATE OF EXAM: Oct 27 2024 6:06PM [facility] 0504 - CT BRAIN WO IVCON / [...] AN ACUTE INTRACRANIAL PROCESS Advanced senescent changes Payroll Analyst: HAYLIE Transcribe Date/Time: Oct 27 2024 6:18P Dictated by : JEFFERSON PIÑA MD This examination was interpreted and the report reviewed and electronically signed by: JEFFERSON PIÑA MD on Oct 27 2024 6:21PM EST [id number] Normal [facility] Comprehensive metabolic 2000 panelon 10-27-2024 Albumin [Mass/Vol] 3.6 g/dL Low 3.9-4.9 [facility] Comment on above: Order Comment: Speci men Type: BLOOD SPECIMEN [facility] Address: [address] [place] [address] Performed By: #### 2 4323-8, 72589-7, [id number], 76654-8 #### [facility] CLIA [id number] [address] STATES OF [facility] ALP [Catalytic activity/Vol] 89 U/L Normal 38-113 [facility] Comment on above: Order Comment: Speci men Type: BLOOD SPECIMEN Ordering Facility: [facility] Address: [address] [place] [address] Performed By: #### 2 4323-8, 49005-1, UYQ0409, 43216-8 #### [facility] CLIA [id number] [address] [place] ALT [Catalytic activity/Vol] 8 U/L Low 10-54 [facility] Comment on above: Order Comment: Speci men Type: BLOOD SPECIMEN Ordering Facility: [facility] Address: [address] [place] [address] Performed By: #### 2 4323-8, 75023-1, [id number], 59726-0 #### [facility] CLIA [id number] [address] Anion gap [Moles/Vol] 13 mmol/L Normal 8-15 [facility] Comment on above: Order Comment: Speci men Type: BLOOD SPECIMEN Ordering Facility: [facility] Address: [address] [place] [address] Performed By: #### 2 4323-8, 43696-5, RDP2483, 53608-6 #### [facility] CLIA [id number] [address] [place] [address] [place] AST [Catalytic activity/Vol] 18 U/L Normal 14-40 [facility] Comment on above: Order Comment: Speci men Type: BLOOD SPECIMEN Order[facility]: [facility] Address: [address] [place] [address] Performed By: #### 2 4323-8, 55311-3, [id number], 24697-0 #### [facility] CLIA [id number] [address] [place] [address] [place] Bilirubin [Mass/Vol] 0.5 mg/dL Normal 0.2-1.3 [facility] Comment on above: Order Comment: Speci men Type: BLOOD SPECIMEN Ordering Facility: [facility] Address: [address] [place] [address] Performed By: #### 2 4323-8, , RYC0929, 33100-9 #### [facility] CLIA [id number] [address] [place] [address] [place] Calcium [Mass/Vol] 9.0 mg/dL Normal 8.5-10.2 [facility] Comment on above: Order Comment: Speci men Type: BLOOD SPECIMEN Order[facility]: [facility] Address: [address] [place] [address] Performed By: #### 2 4323-8, 77168-1, ORR5843, 67760-9 #### [facility] CLIA [id number] [address] [place] [address] [place] Chloride [Moles/Vol] 102 mmol/L Normal 98-107 [facility] Comment on above: Order Comment: Speci men Type: BLOOD SPECIMEN Ordering Facility: [facility] Address: [address] [place] [address] Performed By: #### 2 4323-8, 19861-6, JPB3829, 71479-1 #### [facility] CLIA [id number] [address] [place] [address] [place] CO2 [Moles/Vol] 25 mmol/L Normal 22-30 [facility] Comment on above: Order Comment: Chadwick reid Type: BLOOD SPECIMEN Ordering Facility: [facility] Address: [address] [place] [address] Performed By: #### 2 4323-8, 86165-3, OHM7530, 77334-5 #### [facility] CLIA [id number] [address] [place] [address] [place] Creatinine [Mass/Vol] 1.51 mg/dL High 0.73-1.22 [facility] Comment on above: Order Comment: Chadwick men Type: BLOOD SPECIMEN Order[facility]: [facility] Address: [address] [place] [address] Performed By: #### 2 4323-8, 45045-5, [id number], 29097-7 #### [facility] CLIA [id number] [address] [place] [address] [place] eGFRcr SerPlBld CKD-EPI 2020 48 mL/min/1.73m??? Low >=60 [facility] Comment on above: Order Comment: Chadwick reid Type: BLOOD SPECIMEN Order[facility]: [facility] Address: [address] [place] [address] Result Comment: Cathy mated Glomerular Filtration Rate (eGFR) is calculated using the 2020 CKD-EPI creatinine equation. This equation utilizes serum creatinine, sex, and age as parameters. The creatinine assay has traceable calibration to isotope dilution-mass spectrometry. Refer to KDIGO guidelines for clinical interpretation. In patients with unstable renal function, e.g. those with acute kidney injury, the eGFR may not accurately reflect actual GFR. Performed By: #### 2 4323-8, 03640-0, LVM2528, 42045-2 #### [facility] CLIA [id number] [address] [place] [address] [place] Glucose [Mass/Vol] 91 mg/dL Normal 74-99 [facility] Comment on above: Order Comment: Chadwick jeanette Type: BLOOD SPECIMEN [facility] Address: [address] [place] [address] Result Comment: The [place] Diabetes [employer] (ADA) provides guidance for cutoff [...] Standards of Medical Care in Diabetes 2016, [place] [employer]. Diabetes Care. 2016.39(Suppl 1). Performed By: #### 2 4323-8, 02167-4, SUS5403, 93003-2 #### [facility] CLIA [id number] [address] [place] [address] [place] Potassium [Moles/Vol] 3.4 mmol/L Low 3.7-5.1 [facility] Comment on above: Order Comment: Chadwick reid Type: BLOOD SPECIMEN [facility] Address: [address] [place] [address] Performed By: #### 2 4323-8, 42450-5, LVO3340, 33736-2 #### [facility] CLIA [id number] [address] [place] [address] [place] Protein [Mass/Vol] 7.6 g/dL Normal 6.3-8.0 [facility] Comment on above: Order Comment: Chadwick reid Type: BLOOD SPECIMEN Order[facility] Facility: [facility] Address: [address] [place] [address] Performed By: #### 2 4323-8, 26890-0, YOF2929, 58562-4 #### [facility] CLIA [id number] [address] [place] [address] [place] Sodium [Moles/Vol] 140 mmol/L Normal 136-144 [facility] Comment on above: Order Comment: Chadwick reid Type: BLOOD SPECIMEN Ordering Facility: [facility] Address: [address] [place] [address] Performed By: #### 2 4323-8, 34540-2, HIP0883, 58313-7 #### [facility] CLIA [id number] [address] [place] [address] [facility] Urea nitrogen [Mass/Vol] 12 mg/dL Normal 9-24 [facility] Comment on above: Order Comment: Speci men Type: BLOOD SPECIMEN Ordering Facility: [facility] Address: [place] [address] Performed By: #### 2 4323-8, 37917-2, OVR5937, 86065-3 #### [facility] CLIA [id number] [address] [place] [address] [facility] [place] ED NOTEon 10-27-2024 ED NOTE HNO ID: [id number] Author: MARIA LUISA GARNER, LAQUITA Service: ? Author Type: Registered Nurse Type: ED Notes Filed: 10/27/2024 22:32 Note Text: US at bedside [facility] ED NOTE HNO ID: [id number] Author: MARIA LUISA GARNER RN Service: ? Author Type: Registered Nurse Type: ED Notes Filed: 10/27/2024 21:23 Note Text: Patient given a warm blanket [facility] ED NOTE HNO ID: [id number] Author: SANDRA PENN RN Service: ? Author [...] Patient apparently gets UTIs once a month. [facility] ED NOTE HNO ID: [id number] Author: SANDRA PENN RN Service: ? 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 (more content not included)... Normal [facility] EKGon 10-27-2024 Electrocardiogram Ventricular Rate : 9 7 BPM Atrial Rate : 97 BPM P-R Interval : 146 ms QRS Duration : 130 ms Q-T Interval : 412 ms QTC Calculation(Bazett) : 523 ms Calculated P [place] : 17 degrees Calculated R [place] : 4 degrees Calculated T [place] : 22 degrees SINUS RHYTHM WITH FREQUENT PREMATURE VENTRICULAR COMPLEXES RIGHT BUNDLE BRANCH BLOCK ABNORMAL ECG no STEMI Confirmed by ORQUIDEA ZAMORA MD ([id number]) on 10/27/2024 5:30:43 PM NAME : EMELIA JOHNSON PID : [id number] : 1950 Gender : Male Race : ORD : Procedure Date : Oct 27 2024 17:27:12 Edit Date : Oct 27 2024 17:30:46 Diagnosis: SINUS RHYTHM WITH FREQUENT PREMATURE VENTRICULAR COMPLEXES RIGHT BUNDLE BRANCH BLOCK ABNORMAL ECG no STEMI Confirmed by ORQUIDEA ZAMORA MD ([id number]) on 10/27/2024 5:30:43 PM Test Reason : Location : 1 : ER ED Overread By : ORQUIDEA ZAMORA MD Edited By : ORQUIDEA ZAMORA MD Referred By : , Acquired by : [id number], [facility] HIGH SENSITIVITY TROPONIN T (INITIAL)on 10-27-2024 Troponin T.cardiac High sensitivity method [Mass/Vol] 28 ng/L High [address] Comment on above: Order Comment: Chadwick reid Type: BLOOD SPECIMEN [facility] Address: [address] [place] [address] Performed By: #### 3 4528-0, PTTAC #### [facility] CLIA [id number] [address] HIGH SENSITIVITY TROPONIN T (SECOND)on 10-27-2024 Troponin T.cardiac High sensitivity method [Mass/Vol] 28 ng/L High [address] Comment on above: Order Comment: Chadwick reid Type: BLOOD SPECIMEN [facility] Address: [address] [place] [address] Performed By: #### L [id number] #### [facility] CLIA [id number] [address] HIGH SENSITIVITY TROPONIN T (THIRD) 3 HRS AFTER INITIALon 10-27-2024 Troponin T.cardiac High sensitivity method [Mass/Vol] 26 ng/L High <[address] [place] [address] Comment on above: Order Comment: Speci men Type: BLOOD SPECIMEN [facility] Address: [address] [place] [address] Performed By: #### 5 8410-2 #### [facility] CLIA [id number] [address] [place] [address] [place] HISTORY PHYSICALon HISTORY PHYSICAL HNO ID: [id number] Author: WILL MCFARLANE MD Service: Hospital Medicine Author Type: Physician Type: H&P Filed: 10/27/2024 22:34 Note Text: HOSPITAL MEDICINE HISTORY AND PHYSICAL EXAM PATIENT NAME: Emelia Johnson SERVICE DATE: 10/27/2024 SERVICE TIME: 10:15 PM Primary Care Physician: Jenae Santamaria MD [employer] [id number] ASSESSMENT AND PLAN This is a 74 [...] home synthroid. 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[facility]) History of CVA (cerebrovascular accident) History of right-sided carotid endarterectomy BPH (benign prostatic hyperplasia) History: Hypertrophy of the prostate with obstruction, home meds terazosin 5 mg at bedtime and finasteride Assessment: Voiding well Plan: Continue home terazosin and finasteride Continue to monitor CKD (chronic kidney disease) stage 3, GFR 30-59 ml/min ([facility]) History/Assessment: Baseline GFR ~40 Creatinine Date Value [...] long-term current use of insulin ([facility]) History: Home meds levemir 20 units BID and glyburide 5 mg in AM and 2.5 mg in evening Assessment: Hemoglobin A1C (%) Date Value 02/07/2020 7 (more content not included)... Normal [facility] Magnesium [facility] 10-27 Magnesium [Mass/Vol] 1.7 mg/dL Normal 1.7-2.3 [facility] Comment on above: Order Comment: Chadwick reid Type: BLOOD SPECIMEN [facility] Address: [address] [place] [address] Performed By: #### 1 9123-9, 2777-1 #### [facility] CLIA [id number] [address] OF [facility] Magnesium [Mass/Vol] 1.8 mg/dL Normal 1.7-2.3 [facility] Comment on above: Order Comment: Chadwick reid Type: BLOOD SPECIMEN [facility] Address: [address] [place] [address] Performed By: #### 3 4528-0, PTTAC #### [facility] CLIA [id number] [address] NT-proBNP [facility] 10-27 Natriuretic peptide.B prohormone N-Terminal [Mass/Vol] 2632 pg/mL High <125 [facility] Comment on above: Order Comment: Chadwick reid Type: BLOOD SPECIMEN [facility] Address: [address] [place] [address] Performed By: #### 3 4528-0, PTTAC #### [facility] CLIA [id number] [address] [place] PT panel Coag (PPP)on 2024 INR Coag (PPP) [Relative time] 1.1 {INR} Normal 0.9-1.3 [facility] Comment on above: Order Comment: Chadwick reid Type: BLOOD SPECIMEN [facility] Address: [address] [place] [address] Result Comment: Yvonne min K Antagonist (VKA) Therapeutic Range: INR 2 to 3 (Target INR of 2.5) Note: For patients treated with VKA drugs, such as warfarin, the [place] [employer] 2012 Guideline recommends [...] Chest 2012, 141:7S-47S Judith RA, et al. [facility] 2017, 70: 252-289 Performed By: #### 3 4528-0, PTTAC #### [facility] CLIA [id number] [address] [place] [address] [place] PT Coag (PPP) [Time] 12.2 s Normal 9.7-13.0 [facility] Comment on above: Order Comment: Chadwick reid Type: BLOOD SPECIMEN [facility] Address: [address] [place] [address] Performed By: #### 3 4528-0, PTTAC #### [facility] CLIA [id number] [address] [place] PTT, ANTICOAGULANT THERAPYon 10-27-2024 aPTT Coag (PPP) [Time] 32.9 s High 23.0-32.4 [facility] Comment on above: Order Comment: Chadwick ried Type: BLOOD SPECIMEN [facility] Address: [address] [place], [place] [address] Performed By: #### 3 4528-0, PTTAC #### [facility] CLIA [id number] [address] [place] [id number] [facility] [place] Phosphate SerPl-mCncon 10-27 Phosphate [Mass/Vol] 3.0 mg/dL Normal 2.7-4.8 [facility] Comment on above: Order Comment: Speci men Type: BLOOD SPECIMEN [facility]ing Facility: [facility] Address: [address] [place] [address] Performed By: #### 1 9123-9, 2777-1 #### [facility] CLIA [id number] [address] [place] SEPSIS LACTATE W/ REFLEX (IN ITIAL)on 10-27-2024 Lactate [Moles/Vol] 1.8 mmol/L Normal 0.5-2.0 [facility] Comment on above: Order Comment: Speci men Type: BLOOD SPECIMEN Ordering Facility: [facility] Address: [address] [place], [place] [address] Performed By: #### 3 4528-0, PTTAC #### [facility] CLIA [id number] [address] [place] US DVT LOWER LTon 10-27-2024 US DVT LOWER LT * * *Final Report* * * DATE [...] a deep vein thrombosis on this exam. Payroll Analyst: HAYLIE Transcribe Date/Time: Oct 28 2024 1:42A Dictated by : RAFAEL ESTRADA MD This examination was interpreted and the report reviewed and electronically signed by: RAFAEL ESTRADA MD on Oct 28 2024 1:56AM EST [id number] Normal [facility] Urinalysis complete panel (U )on 10-27-2024 Bacteria LM.HPF (Urine sed) [#/Area] Many Abnormal None Seen [facility] Comment on above: Order Comment: Speci men Type: BLOOD SPECIMEN Ordering Facility: [facility] Address: [address] [place] [address] Performed By: #### 3 4528-0, PTTAC #### [facility] CLIA [id number] [address] [place] [address] [place] Bilirubin Ql (U) Negative Normal Negative [facility] Comment on above: Order Comment: Speci men Type: BLOOD SPECIMEN Ordering Facility: [facility] Address: [address] [place] [address] Performed By: #### 3 4528-0, PTTAC #### [facility] CLIA [id number] [address] [place] [address] [place] Order Comment: Speci men Type: URINE SPECIMENOrdering Facility: [facility] Address: [address] [place] [address] Performed By: #### 2 4356-8 ####[facility]ORYCLIA [id number] [place] [address] [place] CALCIUM OXALATE CRYSTALS (UA) Few Abnormal None Seen [facility] Comment on above: Order Comment: Speci men Type: BLOOD SPECIMEN Ordering Facility: [facility] Address: [address] [place] [address] Performed By: #### 3 4528-0, PTTAC #### [facility] CLIA [id number] [address] [place] Clarity (Unsp spec) Slightly Cloudy Abnormal Clear [facility] Comment on above: Order Comment: Speci men Type: BLOOD SPECIMEN [facility]ing [facility] Address: [address] [place] [address] Performed By: #### 3 4528-0, PTTAC #### [facility] CLIA [id number] [address] [place] Color (U) Yellow Normal Yellow [facility] Comment on above: Order Comment: Speci men Type: BLOOD SPECIMEN Ordering Facility: [facility] Address: [address] [place] [address] Performed By: #### 3 4528-0, PTTAC #### [facility] CLIA [id number] [address] [place] Glucose Test strip (U) [Mass/Vol] Negative Normal Trace, Negative [facility] Comment on above: Order Comment: Speci men Type: BLOOD SPECIMEN Ordering Facility: [facility] Address: [address] [place] [address] Performed By: #### 3 4528-0, PTTAC #### [facility] CLIA [id number] [address] [place] [address] [place] Order Comment: Speci men Type: URINE SPECIMENOrdering Facility: [facility] Address: [address] [place] [address] Performed By: #### 2 4356-8 ####[facility] [id number] [address] Hemoglobin Ql (U) 2+ Abnormal Negative, Trace [facility] Comment on above: Order Comment: Speci men Type: BLOOD SPECIMEN [facility]ing Facility[facility] Address: [address] [place] [address] Performed By: #### 3 4528-0, PTTAC #### [facility] CLIA [id number] [address] Order Comment: Speci men Type: URINE SPECIMENOrdering Facility: [facility] Address: [address] [place] [address] Performed By: #### 2 4356-8 ####[facility]ORY[facility]IA [id number] [address] Ketones Ql (U) Negative Normal Negative, Trace [facility] Comment on above: Order Comment: Speci men Type: BLOOD SPECIMEN [facility] Address: [address] [place] [address] Performed By: #### 3 4528-0, PTTAC #### [facility] CLIA [id number] [address] Order Comment: Speci men Type: URINE SPECIMENOrdering Facility: [facility] Address: [address] [place] [address] Performed By: #### 2 4356-8 ####[facility] [id number] [address] Leukocyte esterase Test strip Ql (U) 2+ Abnormal Negative [facility] Comment on above: Order Comment: Speci men Type: BLOOD SPECIMEN [facility] Address: [address] [place] [address] Performed By: #### 3 4528-0, PTTAC #### [facility] CLIA [id number] [address] [place] Nitrite Ql (U) Positive Abnormal Negative [facility] Comment on above: Order Comment: Speci men Type: BLOOD SPECIMEN [facility] Address: [address] [place] [address] Performed By: #### 3 4528-0, PTTAC #### [facility] CLIA [id number] [address] pH (U) 6.5 [pH] Normal 5.0-8.0 [facility] Comment on above: Order Comment: Speci men Type: BLOOD SPECIMEN [facility] Address: [address] [place] [address] Performed By: #### 3 4528-0, PTTAC #### [facility] CLIA [id number] [address] Order Comment: Speci men Type: URINE SPECIMENOrdering Facility: [facility] Address: [address] [place] [address] Performed By: #### 2 4356-8 ####[facility]ATORYCLIA [id number] [address] Protein (U) [Mass/Vol] 1+ Abnormal Trace , Negative [facility] Comment on above: Order Comment: Speci men Type: BLOOD SPECIMEN [facility] Address: [address] [place] [address] Performed By: #### 3 4528-0, PTTAC #### [facility] CLIA [id number] [address] Order Comment: Speci men Type: URINE SPECIMENOrdering Facility: [facility] Address: [address] [place] [address] Performed By: #### 2 4356-8 ####[facility]ORYCLIA [id number] [address] RBC LM.HPF (Urine sed) [#/Area] 3-5 /HPF Abnormal 0-3 /HPF [facility] Comment on above: Order Comment: Speci men Type: BLOOD SPECIMEN [facility] Address: [address] [place] [address] Performed By: #### 3 4528-0, PTTAC #### [facility] CLIA [id number] [address] Specific gravity (U) [Rel density] 1.015 Normal 1.005-1.03 0 [facility] Comment on above: Order Comment: Speci men Type: BLOOD SPECIMEN [facility] Address: [address] [place] [address] Performed By: #### 3 4528-0, PTTAC #### [facility] CLIA [id number] [address] Urobilinogen Ql (U) 0.2 EU/dL Normal 0.2-1.0 EU/dL [facility] Comment on above: Order Comment: Speci men Type: BLOOD SPECIMEN [facility] Address: [address] [place] [address] Performed By: #### 3 4528-0, PTTAC #### [facility] CLIA [id number] [address] [place] WBC LM.HPF (Urine sed) [#/Area] /[HPF] Abnormal 0-5 /HPF [facility] Comment on above: Order Comment: Speci men Type: BLOOD SPECIMEN [facility] Address: [address] [place] [address] Performed By: #### 3 4528-0, PTTAC #### [facility] CLIA [id number] [address] [place] Order Comment: Speci men Type: URINE SPECIMENOrdering Facility: [facility] Address: [address] [place] [address] Performed By: #### 2 4356-8 ####[facility]ATORYCLIA [id number] [address] [place] Bacteria LM.HPF (Urine sed) [#/Area] Few Abnormal None Seen [facility] Comment on above: Order Comment: Speci men Type: URINE SPECIMENOrdering Facility: [facility] Address: [address] [place] [address] Performed By: #### 2 4356-8 ####[facility]ATORYCLIA [id number] [address] Clarity (Unsp spec) Turbid Abnormal Clear [facility] Comment on above: Order Comment: Speci men Type: URINE SPECIMENOrdering Facility: [facility] Address: [address] [place] [address] Performed By: #### 2 4356-8 ####[facility]ATORYCLIA [id number] [address] Color (U) Light Yellow Normal yellow [facility] Comment on above: Order Comment: Speci men Type: URINE SPECIMENOrdering Facility: [facility] Address: [address] [place] [address] Performed By: #### 2 4356-8 ####[facility]ATORYCLIA [id number] [address] Hyaline casts (Urine sed) [#/Area] 1-3 /LPF Abnormal 0 /LPF [facility] Comment on above: Order Comment: Speci men Type: URINE SPECIMENOrdering Facility: [facility] Address: [address] [place] [address] Performed By: #### 2 4356-8 ####[facility]ATORYCLIA [id number] [address] Leukocyte esterase Test strip Ql (U) 500 Michelle/uL Abnormal Negative, 25 Michelle/uL [facility] Comment on above: Order Comment: Speci men Type: URINE SPECIMENOrdering Facility: [facility] Address: [address] [place] [address] Performed By: #### 2 4356-8 ####[facility]ATORYCLIA [id number] [address] Nitrite Ql (U) 2+ Abnormal Negative [facility] Comment on above: Order Comment: Speci men Type: URINE SPECIMENOrdering Facility: [facility] Address: [address] [place] [address] Performed By: #### 2 4356-8 ####[facility]ATORYCLIA [id number] [address] [place] RBC LM.HPF (Urine sed) [#/Area] 11-25 /HPF Abnormal 0-3 /HPF [facility] Comment on above: Order Comment: Speci men Type: URINE SPECIMENOrdering Facility: [facility] Address: [address] [place] [address] Performed By: #### 2 4356-8 ####[facility]ATORYCLIA [id number] [place] [id number] [facility] [place] Specific gravity (U) [Rel density] 1.011 Normal 1.005-1.03 0 [facility] Comment on above: Order Comment: Speci men Type: URINE SPECIMENOrdering Facility: [facility] Address: [address] [place] [address] Performed By: #### 2 4356-8 ####[facility]ORYCLIA [id number] [address] Urobilinogen Ql (U) Normal Normal Normal [facility] Comment on above: Order Comment: Speci men Type: URINE SPECIMENOrdering Facility: [facility] Address: [address] [place] [address] Performed By: #### 2 4356-8 ####[facility]ATORYCLIA [id number] [address] [place] XR CHEST 2V FRONTAL/LATon XR CHEST 2V FRONTAL/LAT * * *Final Repor t* * * DATE OF EXAM: Oct 27 [...] soft tissues: Unremarkable. IMPRESSION: Bilateral basilar atelectasis Payroll Analyst: HAYLIE Transcribe Date/Time: Oct 27 2024 4:23P Dictated by : KATALINA JACKSON MD This examination was interpreted and the report reviewed and electronically signed by: KATALINA JACKSON MD on Oct 27 2024 4:24PM EST [id number] Normal [facility] Urine Cultureon 09-29-2024 URC Normal [facility] Comment on above: Performed By: #### M 100.2200 ####[facility] [address] [place], [address] Abdomen/Pelvis W IV Cont ONL Yon 09-27-2024 Abdomen/Pelvis W IV Cont ONLY Normal [facility] Absolute lymphocyte countOrd ered By: John Michele on 09-27-2024 Lymphocytes Auto (Unsp spec) [#/Vol] 1.58 10*3/uL 0.83-4.51 [facility] Absolute neutrophil countOrd ered By: John Michele on 09-27-2024 Neutrophils (Bld) [#/Vol] 4.8 10*3/uL 2.0-7.7 [facility] Amorphous sediment detection in urine sediment by light microscopyOrdered By: John Michele on 09-27-2024 Amorphous sediment LM Ql (Urine sed) 2+ [facility] Anion gap in Serum or Plasma Ordered By: John Michele on 09-27-2024 Anion gap [Moles/Vol] 12 mmol/L 5-15 [facility] Automated lymphocyte count a s percentage of total leukocytesOrdered By: John Michele on 09-27-2024 Lymphocytes/100 WBC Auto (Unsp spec) 21.9 % 19-41 [facility] BUN/creatinine ratioOrdered By: John Michele on 09-27-2024 Urea nitrogen/Creatinine [Mass ratio] 6.3 mg/mg Low 10-20 [facility] Basophil percentageOrdered B y: John Michele on 09-27-2024 Basophils/100 WBC (Bld) 0.7 % 0-1 [facility] Bilirubin Test strip Ql (U)O rdered By: John Michele on 09-27-2024 Bilirubin Ql (U) Negative Negative [facility] Bilirubin, totalOrdered By: John Michele on 09-27-2024 Bilirubin [Mass/Vol] 0.36 mg/dL 0.00-1.30 [facility] Blood manual differential co mment interpretation (narrative result)Ordered By: John Michele on 09-27-2024 Manual differential comment Phil (Bld) [Interp] SCANNED [facility] Comment on above: THROMBOCYTOPENIA NOT ED CBC W/Diff, Automatedon Absolute Lymph 1.58 X10 3/uL Normal 0.83-4.51 [facility] Comment on above: Performed By: #### L 100.0100, L500.4050, L503.7505 ####[facility] [address] [place], [address] Absolute Neut 4.8 X10 3/uL Normal 2.0-7.7 [facility] Comment on above: Performed By: #### L 100.0100, L500.4050, L503.7505 ####[facility] [address] [place], [address] Basophils/100 WBC (Bld) 0.7 % Normal 0-1 [facility] Comment on above: Performed By: #### L 100.0100, L500.4050, L503.7505 ####[facility] [address] [place], [address] Eosinophils/100 WBC (Bld) 2.8 % Normal 0-5 [facility] Comment on above: Performed By: #### L 100.0100, L500.4050, L503.7505 ####[facility] [address] [place], [address] Erythrocyte distribution width (RBC) [Ratio] 15.8 % High 11.6-14.6 [facility] Comment on above: Performed By: #### L 100.0100, L500.4050, L503.7505 ####[facility] [address] [place], [address] Hematocrit (Bld) [Volume fraction] 42.7 % Normal 40-54 [facility] Comment on above: Performed By: #### L 100.0100, L500.4050, L503.7505 ####[facility] [address] [place], [address] Hemoglobin (Bld) [Mass/Vol] 13.1 g/dL Normal 13.0-16.5 [facility] Comment on above: Performed By: #### L 100.0100, L500.4050, L503.7505 ####[facility] [address] [place], [address] IG% 0.600 Normal 0.0-0.9 [facility] Comment on above: Result Comment: IG% - Immature Granulocytes (promyelocytes, myelocytes andmetamyelocytes) > 1% indicates that a LEFT SHIFT is Present. Performed By: #### L 100.0100, L500.4050, L503.7505 ####[facility] [address] [place], [address] Lymphocytes/100 WBC (Bld) 21.9 % Normal 19-41 [facility] Comment on above: Performed By: #### L 100.0100, L500.4050, L503.7505 ####[facility] [address] [place], [address] MCH (RBC) [Entitic mass] 28.0 pg Normal 27.0-32.0 [facility] Comment on above: Performed By: #### L 100.0100, L500.4050, L503.7505 ####[facility] [address] [place], [address] MCHC (RBC) [Mass/Vol] 30.7 g/dL Low 32-36 [facility] Comment on above: Performed By: #### L 100.0100, L500.4050, L503.7505 ####[facility] [address] [place], [address] MCV (RBC) [Entitic vol] 91.2 fL Normal 80-94 [facility] Comment on above: Performed By: #### L 100.0100, L500.4050, L503.7505 ####[facility] [address] [place], [address] Monocytes/100 WBC (Bld) 7.6 % Normal 0-10 [facility] Comment on above: Performed By: #### L 100.0100, L500.4050, L503.7505 ####[facility] [address] [place], [address] Neutrophils/100 WBC (Bld) 66.4 % Normal 47-70 [facility] Comment on above: Performed By: #### L 100.0100, L500.4050, L503.7505 ####[facility] [address] [place], [address] Nucleated RBC (Bld) [#/Vol] 0 10*3/uL Normal 0-5 [facility] Comment on above: Performed By: #### L 100.0100, L500.4050, L503.7505 ####[facility] [address] [place], [address] Platelet mean volume (Bld) [Entitic vol] 12.6 fL High 6.2-12.0 [facility] Comment on above: Performed By: #### L 100.0100, L500.4050, L503.7505 ####[facility] [address] [place], [address] Platelets (Bld) [#/Vol] 86 10*3/uL Low 150-450 [facility] Comment on above: Performed By: #### L 100.0100, L500.4050, L503.7505 ####[facility] [address] [place], [address] RBC (Bld) [#/Vol] 4.68 10*6/uL Normal 4.6-6.2 [facility] Comment on above: Performed By: #### L 100.0100, L500.4050, L503.7505 ####[facility] [address] [place], [address] RDW SD 51.9 fl High 35.1-43.9 [facility] Comment on above: Performed By: #### L 100.0100, L500.4050, L503.7505 ####[facility] [address] [place], [address] WBC (Bld) [#/Vol] 7.2 10*3/uL Normal 4.4-11.0 [facility] Comment on above: Performed By: #### L 100.0100, L500.4050, L503.7505 ####[facility] [address] [place], [address] Carbon dioxide, total [Moles /volume] in Central venous bloodOrdered By: John Michele on 09-27-2024 CO2 [Moles/Vol] 23.6 mmol/L 21.0-32.0 [facility] Chloride assayOrdered By: Rupali Michele on 09-27-2024 Chloride [Moles/Vol] 104 mmol/L 98-108 [facility] Comprehensive Metabolic Prof ilon 09-27-2024 Albumin [Mass/Vol] 3.7 g/dL Normal 3.4-4.8 [facility] Comment on above: Performed By: #### L 100.0100, L500.4050, L503.7505 ####[facility] [address] [place], [address] Albumin/Globulin [Mass ratio] 1.0 {ratio} Normal 0.9-2.4 [facility] Comment on above: Performed By: #### L 100.0100, L500.4050, L503.7505 ####[facility] [address] [place], [address] ALK PHOS 99 U/L Normal 40-129 [facility] Comment on above: Performed By: #### L 100.0100, L500.4050, L503.7505 ####[facility] [address] [place], [address] ALT [Catalytic activity/Vol] 14 U/L Normal <=46 [facility] Comment on above: Performed By: #### L 100.0100, L500.4050, L503.7505 ####[facility] [address] [place], [address] AST [Catalytic activity/Vol] 30 U/L Normal <=37 [facility] Comment on above: Performed By: #### L 100.0100, L500.4050, L503.7505 ####[facility] [address] [place], [address] Bilirubin [Mass/Vol] 0.36 mg/dL Normal 0.00-1.30 [facility] Comment on above: Performed By: #### L 100.0100, L500.4050, L503.7505 ####[facility] [address] [place], [address] BUN/CRE 6.3 RATIO Low 10-20 [facility] Comment on above: Performed By: #### L 100.0100, L500.4050, L503.7505 ####[facility] [address] [place], [address] Calcium [Mass/Vol] 9.2 mg/dL Normal 7.6-11.0 [facility] Comment on above: Performed By: #### L 100.0100, L500.4050, L503.7505 ####[facility] [address] [place], [address] Chloride [Moles/Vol] 104 mmol/L Normal 98-108 [facility] Comment on above: Performed By: #### L 100.0100, L500.4050, L503.7505 ####[facility] [address] [place], [address] CO2 [Moles/Vol] 23.6 mmol/L Normal 21.0-32.0 [facility] Comment on above: Performed By: #### L 100.0100, L500.4050, L503.7505 ####[facility] [address] [place], [address] Creatinine [Mass/Vol] 1.76 mg/dL High 0.70-1.20 [facility] Comment on above: Performed By: #### L 100.0100, L500.4050, L503.7505 ####[facility] [address] [place], [address] ECRCL 39.05 ml/min Low 50-250 [facility] Comment on above: Performed By: #### L 100.0100, L500.4050, L503.7505 ####[facility] [address] [place], [address] GAP 12 Normal 5-15 [facility] Comment on above: Performed By: #### L 100.0100, L500.4050, L503.7505 ####[facility] [address] [place], [address] GFR/1.73 sq M.predicted among non-blacks MDRD (S/P/Bld) [Vol rate/Area] 40 mL/min/{1.73_m2} Low >60 [facility] Comment on above: Result Comment: mL/m in/1.73m2 CKD-EPI Creatinine Equation (2020) Performed By: #### L 100.0100, L500.4050, L503.7505 ####[facility] [address] [place], [address] Globulin (S) [Mass/Vol] 3.5 g/dL Normal 2.2-4.2 [facility] Comment on above: Performed By: #### L 100.0100, L500.4050, L503.7505 ####[facility] [address] [place], [address] Glucose [Mass/Vol] 94 mg/dL Normal 70-99 [facility] Comment on above: Performed By: #### L 100.0100, L500.4050, L503.7505 ####[facility] [address] [place], [address] Potassium [Moles/Vol] 4.2 mmol/L Normal 3.3-5.1 [facility] Comment on above: Performed By: #### L 100.0100, L500.4050, L503.7505 ####[facility] [address] [place], [address] Sodium [Moles/Vol] 139 mmol/L Normal 133-145 [facility] Comment on above: Performed By: #### L 100.0100, L500.4050, L503.7505 ####[facility] [address] [place], [address] T PROT 7.2 g/dL Normal 5.9-8.4 [facility] Comment on above: Performed By: #### L 100.0100, L500.4050, L503.7505 ####[facility] [address] [place], [address] Urea nitrogen [Mass/Vol] 11 mg/dL Normal 4-19 [facility] Comment on above: Performed By: #### L 100.0100, L500.4050, L503.7505 ####[facility] [address] [place], [address] Emergency Department Summary on 09-27-2024 Emergency Department Summary Normal [facility] Eosinophil percentageOrdered By: John Michele on 09-27-2024 Eosinophils/100 WBC (Bld) 2.8 % 0-5 [facility] Erythrocyte distribution wid th ratioOrdered By: John Michele on 09-27-2024 Erythrocyte distribution width (RBC) [Ratio] 15.8 % High 11.6-14.6 [facility] Erythrocyte distribution wid th standard deviationOrdered By: John Michele on 09-27-2024 Erythrocyte distribution width (RBC) [Ratio] 51.9 fl High 35.1-43.9 [facility] Glomerular filtration rate ( GFR) estimation/1.73 sq m using serum, plasma, or whole bOrdered By: John Michele on 09-27-2024 GFR/1.73 sq M.predicted among non-blacks MDRD (S/P/Bld) [Vol rate/Area] 40 mL/min/{1.73_m2} Low >60 [facility] Comment on above: mL/min/1.73m2 CKD-EP I Creatinine Equation (2020) Hematocrit Auto (Bld) [Volum e fraction]Ordered By: John Michele on 09-27-2024 Hematocrit (Bld) [Volume fraction] 42.7 % 40-54 [facility] Hemoglobin measurementOrdere d By: John Michele on 09-27-2024 Hemoglobin (Bld) [Mass/Vol] 13.1 g/dL 13.0-16.5 [facility] Immature granulocytes/100 WB C Auto (Bld)Ordered By: John Michele on 09-27-2024 Immature granulocytes/100 WBC (Bld) 0.600 % 0.0-0.9 [facility] Comment on above: IG% - Immature Granu locytes (promyelocytes, myelocytes and metamyelocytes) > 1% indicates that a LEFT SHIFT is Present. Ketones Test strip Ql (U)Ord ered By: John Michele on 09-27-2024 Ketones Ql (U) Negative Negative [facility] L503.7505on 09-27-2024 Natriuretic peptide B (Bld) [Mass/Vol] 2140 pg/mL High <=900 [facility] Comment on above: Result Comment: Hear t Failure Unlikely: < 300 pg/mLHeart Failure Likely< 50 Years: > 450 pg/mL50-75 Years: > 900 pg/mL>75 Years: > 1800 pg/mL Performed By: #### L 100.0100, L500.4050, L503.7505 ####[facility] [address] [place], [place], [id number] Laboratory - Chemistry and C hemistry - challengeOrdered By: John Michele on 09-27-2024 AST [Catalytic activity/Vol] 30 U/L <38 [facility] MCV (mean corpuscular volume ) determinationOrdered By: John Michele on 09-27-2024 MCV (RBC) [Entitic vol] 91.2 fL 80-94 [facility] Mean corpuscular hemoglobin (MCH) determinationOrdered By: John Michele on 09-27-2024 MCH (RBC) [Entitic mass] 28.0 pg 27.0-32.0 [facility] Mean corpuscular hemoglobin concentration (MCHC) determinationOrdered By: John Michele on 09-27-2024 MCHC (RBC) [Mass/Vol] 30.7 g/dL Low 32-36 [facility] Mean platelet volume determi nationOrdered By: John Michele on 09-27-2024 Platelet mean volume (Bld) [Entitic vol] 12.6 fL High 6.2-12.0 [facility] Microscopic analysis of urin e for red blood cells (RBC)Ordered By: John Michele on 09-27-2024 Microscopic analysis of urine for red blood cells (RBC) 50-100 SEEN /hpf 0-5 [facility] Monocyte percentageOrdered B y: John Michele on 09-27-2024 Monocytes/100 WBC (Bld) 7.6 % 0-10 [facility] Mucus LM Ql (Urine sed)Order ed By: John Michele on 09-27-2024 Mucus Ql (Urine sed) 0 SEEN /hpf [facility] Natriuretic peptide.B prohor sharmila N-Terminal [Mass/volume] in Serum or PlasmaOrdered By: John Michele on 09-27-2024 Natriuretic peptide.B prohormone N-Terminal [Mass/Vol] 2140 pg/mL High <900 [facility] Comment on above: Heart Failure Unlike ly: < 300 pg/mLHeart Failure Likely< 50 Years: > 450 pg/mL50-75 Years: > 900 pg/mL>75 Years: > 1800 pg/mL Neutrophil percentageOrdered By: John Michele on 09-27-2024 Neutrophils/100 WBC (Bld) 66.4 % 47-70 [facility] Nitrite Test strip Ql (U)Ord ered By: John Michele on 09-27-2024 Nitrite Ql (U) Negative Negative [facility] No Panel InformationOrdered By: John Michele on 09-27-2024 30 U/L <38 [facility] Nucleated red blood cell per centageOrdered By: John Michele on 09-27-2024 Nucleated RBC/100 WBC (Bld) [Ratio] 0 % 0-5 [facility] Platelet countOrdered By: Rupali Michele on 09-27-2024 Platelets (Bld) [#/Vol] 86 10*3/uL Low 150-450 [facility] Potassium measurement (mass/ volume)Ordered By: John Michele on 09-27-2024 Potassium (Unsp spec) [Mass/Vol] 4.2 mmol/L 3.3-5.1 [facility] Protein Test strip Ql (U)Ord ered By: John Michele on 09-27-2024 Protein Ql (U) 100 mg/dl High Negative [facility] RBC Auto (Bld) [#/Vol]Ordere d By: John Michele on 09-27-2024 RBC (Bld) [#/Vol] 4.68 10*6/uL 4.6-6.2 [facility] Serum creatinine measurement (mass/volume)Ordered By: John Michele on 09-27-2024 Creatinine [Mass/Vol] 1.76 mg/dL High 0.70-1.20 [facility] Serum globulin measurementOr dered By: John Michele on 09-27-2024 Globulin (S) [Mass/Vol] 3.5 g/dL 2.2-4.2 [facility] Serum glucose measurement (m ass/volume)Ordered By: John Michele on 09-27-2024 Glucose [Mass/Vol] 94 mg/dL 70-99 [facility] Serum or plasma alanine mancia otransferase (ALT) measurementOrdered By: John Michele on 09-27-2024 ALT [Catalytic activity/Vol] 14 U/L <47 [facility] Serum or plasma albumin camille urement (mass/volume)Ordered By: John Michele on 09-27-2024 Albumin [Mass/Vol] 3.7 g/dL 3.4-4.8 [facility] Serum or plasma albumin/glob ulin mass ratioOrdered By: John Michele on 09-27-2024 Albumin/Globulin [Mass ratio] 1.0 {ratio} 0.9-2.4 [facility] Serum or plasma alkaline milton sphatase measurementOrdered By: John Michele on 09-27-2024 ALP [Catalytic activity/Vol] 99 U/L 40-129 [facility] Serum or plasma calcium camille urement (mass/volume)Ordered By: John Michele on 09-27-2024 Calcium [Mass/Vol] 9.2 mg/dL 7.6-11.0 [facility] Serum or plasma urea nitroge n measurement (mass/volume)Ordered By: John Michele on 09-27-2024 Urea nitrogen [Mass/Vol] 11 mg/dL 4-19 [facility] Sodium levelOrdered By: John Michele on 09-27-2024 Sodium [Moles/Vol] 139 mmol/L 133-145 [facility] Squamous epithelial cells de tection in urine sediment by light microscopyOrdered By: John Michele on 09-27-2024 Epithelial cells.squamous LM Ql (Urine sed) 0-5 SEEN /hpf 0-5 [facility] Testicular with Arterial Devante won 09-27-2024 Testicular with Arterial Flow Normal [facility] Total proteinOrdered By: Valentine Michele on 09-27-2024 Protein [Mass/Vol] 7.2 g/dL 5.9-8.4 [facility] Transitional cells detection in urine sediment by light microscopyOrdered By: John Michele on 09-27-2024 Transitional cells LM Ql (Urine sed) 0-5 SEEN /hpf 0-5 [facility] Triple phosphate crystals de tection in urine sediment by light microscopyOrdered By: John Michele on 09-27-2024 Triple phosphate crystals LM Ql (Urine sed) RARE /hpf [facility] Urinalysis, Completeon 09-27 AMORPHOUS 2+ Normal [facility] Comment on above: Order Comment: CLEAN CATCH Performed By: #### L 400.0001 ####[facility] [address] [place], [address] EPI,SQUAMOUS 0-5 SEEN Normal 0-5 [facility] Comment on above: Order Comment: CLEAN CATCH Performed By: #### L 400.0001 ####[facility] [address] [place], [address] EPI,TRANSITION 0-5 SEEN Normal 0-5 [facility] Comment on above: Order Comment: CLEAN CATCH Performed By: #### L 400.0001 ####[facility] [address] [facility] [address] TRIPLE PHOS RARE Normal [facility] Comment on above: Order Comment: CLEAN CATCH Performed By: #### L 400.0001 ####[facility] [address] [place], [address] BACTERIA 2+ /hpf Normal None Seen [facility] Comment on above: Order Comment: CLEAN CATCH Performed By: #### L 400.0001 ####[facility] [address] [place], [address] RBC 50-100 SEEN Normal 0-5 [facility] Comment on above: Order Comment: CLEAN CATCH Performed By: #### L 400.0001 ####[facility] [address] [place], [address] WBC >100 SEEN Normal 0-5 [facility] Comment on above: Order Comment: CLEAN CATCH Result Comment: Micr oscopic field is filled. Other elements may beobscured. Performed By: #### L 400.0001 ####[facility] [address] [place], [address] Mucus Ql (Urine sed) [address] [facility] Comment on above: Order Comment: CLEAN CATCH Performed By: #### L 400.0001 ####[facility] [address] [place], [address] Urine clarityOrdered By: Valentine Michlee on 09-27-2024 Clarity (U) Cloudy Clear [facility] Urine color determinationOrd ered By: John Michele on 09-27-2024 Color (U) Yellow Yellow [facility] Urine cultureOrdered By: Valentine Michele on 09-27-2024 Bacteria identified Cx Nom (U) Enterobacter cloacae complex Abnormal [facility] Urine glucose detectionOrder ed By: John Michele on 09-27-2024 Glucose Ql (U) Normal mg/dl Normal [facility] Urine leukocyte esterase det ection by dipstickOrdered By: John Michele on 09-27-2024 Leukocyte esterase Test strip Ql (U) 500 /ul High Negative [facility] Urine pHOrdered By: John javier on 09-27-2024 pH (U) 7.0 [pH] 5.0 - 8.0 [facility] Urine sediment bacteria coun t by microscopy (number/high power field)Ordered By: John Michele on 09-27-2024 Bacteria LM.HPF (Urine sed) [#/Area] 2 /[HPF] None Seen [facility] Urine specific gravity measu rementOrdered By: John Michele on 09-27-2024 Specific gravity (U) [Rel density] 1.010 1.002-1.03 0 [facility] Urine urobilinogen measureme ntOrdered By: John Michele on 09-27-2024 Urobilinogen Ql (U) Normal mg/dl Normal [facility] White blood cell (WBC) count Ordered By: John Michele on 09-27-2024 WBC (Bld) [#/Vol] 7.2 10*3/uL 4.4-11.0 [facility] White blood cell countOrdere d By: John Michele on 09-27-2024 White blood cell count >100 SEEN /hpf 0-5 [facility] Comment on above: Microscopic field is filled. Other elements may be obscured. Francisca 09-22-2024 CNPN Telephone (AGSAM) EMELIA JOHNSON ([id number]) 1950 M Date Time Provider Department 09/22/24 [...] indwelling urethral catheter, initial encounter [T83.511A, N39.0] Order(s):sulfamethoxazole-t rimethoprim (BACTRIM DS) 800-160 mg per tabletTake 1 tablet by mouth two times a day for 7 days.Disp: 14 tabletRfl: 0 Prescriptions as of 09/25/2024 - sulfamethoxazole-trimethopr im (BACTRIM DS) 800-160 mg per tablet Take [...] tablet by mouth every other day. - rycuwcswpmn-miskgjkhx-fabtf ter (TRELEGY ELLIPTA) 100-62.5-25 mcg inhalation powder Inhale [...] aortic aneurysm (TAAA) without*11/21/2013 02/08/2020 Atherosclerosis of twenty-nine palms artery of extremity w*11/21/2013 Other hyperlipidemia [E78.49] Unspecified hypothyroidism [E03.9] Smoker [F17.200] 01/27/2015 Chronic ischemic right MCA stroke [Z86.73] 02/08/2020 CAD (coronary artery disease), twenty-nine palms coronary *12/27/2013 Postprocedural hypotension [I95.81] 12/27/2013 09/25/2020 [...] 10/18/2020 On total parenteral nutrition (TPN) [Z78.9] (more content not included)... Normal [facility] Bacteria Ur Culton 5 Bacteria identified Cx Nom (U) ORGANISM ID: 1 >=100,000 CFU/ml Enterobacter cloacae complex ORGANISM ID: 1 (ENTEROBACTER CLOACAE COMPLEX) --------- ANTIBIOTIC INTERPRETATION REGAN STATUS REFERENCE RANGE --------- Ampicillin R 16 F Cefepime S <=1 [...] <=32 , Intermediate >32 , Resistant >64 Abnormal [facility] Comment on above: Performed By: #### L [id number], 630-4 ####[facility]ATORYCLIA [id number] [address] URINALYSIS, REFLEX MICROSCOP ICon 09-20-2024 Bacteria LM.HPF (Urine sed) [#/Area] Many Abnormal None Seen [facility] Comment on above: Order Comment: Speci men Type: URINE SPECIMENOrdering Facility: [facility] Address: [address] [place] [address] Performed By: #### L [id number], 630- ####[facility]ORATORYCLIA [id number] [address] Bilirubin Ql (U) Negative Normal Negative [facility] Comment on above: Order Comment: Speci men Type: URINE SPECIMENOrdering Facility: [facility] Address: [address] [place] [address] Performed By: #### L [id number], 630- ####[facility]ORATORYCLIA [id number] [address] Clarity (Unsp spec) Slightly Cloudy Abnormal Clear [facility] Comment on above: Order Comment: Speci men Type: URINE SPECIMENOrdering Facility: [facility] Address: [address] [place] [address] Performed By: #### L [id number], 630-4 ####[facility]ORATORYCLIA [id number] [address] Color (U) Yellow Normal Yellow [facility] Comment on above: Order Comment: Speci men Type: URINE SPECIMENOrdering Facility: [facility] Address: [address] [place] [address] Performed By: #### L [id number], 630-4 ####[facility]ATORYCLIA [id number] [address] Epithelial cells LM.HPF (Urine sed) [#/Area] Few Normal [facility] Comment on above: Order Comment: Speci men Type: URINE SPECIMENOrdering Facility: [facility] Address: [address] [place] [address] Result Comment: Few Performed By: #### L [id number], 630-4 ####[facility]ATORYCLIA [id number] [address] Glucose Test strip (U) [Mass/Vol] Negative Normal Negative [facility] Comment on above: Order Comment: Speci men Type: URINE SPECIMENOrdering Facility: [facility] Address: [address] [place] [address] Performed By: #### L [id number], 630-4 ####[facility]ATORYCLIA [id number] [address] [place] Hemoglobin Ql (U) 3+ Abnormal Negative [facility] Comment on above: Order Comment: Speci men Type: URINE SPECIMENOrdering Facility: [facility] Address: [address] [place] [address] Performed By: #### L [id number], 630-4 ####[facility]ORYCLIA [id number] [address] [place] Ketones Ql (U) Negative Normal Negative [facility] Comment on above: Order Comment: Speci men Type: URINE SPECIMENOrdering Facility: [facility] Address: [address] [place] [address] Performed By: #### L [id number], 630-4 ####[facility]ATORYCLIA [id number] [address] [place] Leukocyte esterase Test strip Ql (U) 3+ Abnormal Negative [facility] Comment on above: Order Comment: Speci men Type: URINE SPECIMENOrdering Facility: [facility] Address: [address] [place] [address] Performed By: #### L [id number], 630-4 ####[facility]ATORYCLIA [id number] [place] [address] [place] Nitrite Ql (U) Positive Abnormal Negative [facility] Comment on above: Order Comment: Speci men Type: URINE SPECIMENOrdering Facility: [facility] Address: [address] [place] [address] Performed By: #### L [id number], 630-4 ####[facility]ATORYCLIA [id number] [place] [address] [place] pH (U) 6.5 [pH] Normal 5.0-8.0 [facility] Comment on above: Order Comment: Speci men Type: URINE SPECIMENOrdering Facility: [facility] Address: [address] [place] [address] Performed By: #### L [id number], 630- ####[facility]ORATORYCLIA [id number] [address] [place] Protein (U) [Mass/Vol] 2+ Abnormal Negative [facility] Comment on above: Order Comment: Speci men Type: URINE SPECIMENOrdering Facility: [facility] Address: [address] [place] [address] Performed By: #### L [id number], 630- ####[facility]ORATORYCLIA [id number] [place] [address] [place] RBC LM.HPF (Urine sed) [#/Area] /[HPF] Abnormal 0-3 /HPF [facility] Comment on above: Order Comment: Speci men Type: URINE SPECIMENOrdering Facility: [facility] Address: [address] [place] [address] Performed By: #### L [id number], 630-4 ####[facility]ORATORYCLIA [id number] [place] [address] [place] Specific gravity (U) [Rel density] 1.015 Normal 1.005-1.03 0 [facility] Comment on above: Order Comment: Speci men Type: URINE SPECIMENOrdering Facility: [facility] Address: [address] [place] [address] Performed By: #### L [id number], 630-4 ####[facility]ORATORYCLIA [id number] [address] Urobilinogen Ql (U) 0.2 EU/dL Normal 0.2 EU/d L, 1.0 EU/dL [facility] Comment on above: Order Comment: Speci men Type: URINE SPECIMENOrdering Facility: [facility] Address: [address] [place] [address] Performed By: #### L [id number], 630-4 ####[facility]ORATORYCLIA [id number] [address] WBC LM.HPF (Urine sed) [#/Area] /[HPF] Abnormal 0-5 /HPF [facility] Comment on above: Order Comment: Speci men Type: URINE SPECIMENOrdering Facility: [facility] Address: [address] [place] [address] Performed By: #### L [id number], 630-4 ####[facility]ORATORYCLIA [id number] [address] CNPTosha 09-18-2024 CNPN Telephone (UROLWS) EMELIA JOHNSON ([id number]) 1950 M Date Time Provider Department 09/18/24 GUTIERREZ ACEVEDO During your visit today, we recorded the following information about you: Erin Osborne LPN 09/18/2024 5:00 PM Signed Called patient. Verified name and date of . Patient reports appointment tomorrow follow up from [facility] with multiple visits but is unable to make appointment due to transportation person sick. Offered to reschedule appointment but states they will call once they know schedule of transportation person. BUNNY Shipley Kimberly, LPN 09/20/2024 8:23 AM Signed Faxed [facility] Medical Records for records from June to present to have on file. BUNNY Shipley Kimberly, LPN 09/20/2024 4:56 PM Signed Received records via [employer]- uploaded to [facility]. Erin Osborne LPN Allergies As of Date: [...] tablet by mouth every other day. - ovijozmumht-xmqivenqg-ycici ter (TRELEGY ELLIPTA) 100-62.5-25 mcg inhalation powder Inhale [...] AT BEDTIME - Blood Pressure Test Kit-Large (Senscient BP MONITOR) 1 Each two times a day. - flash glucose sensor (FREESTYLE HEMA 14 DAY SENSOR) kit 1 Each four times daily. - Fenofibrate 160 mg tablet Take 1 tablet by mouth once daily. 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 Normal [facility] CNOVSPon 09-15-2024 CNOVSP Visit (SP) Office (H EMBATH) EMELIA JOHNSON ([id number]) 1950 Date Time Provider Department 09/15/24 11:20 AM [place]AN [place] During your visit today, we recorded the [...] diagnosed in 2019. He received treatment in [facility]. He has multiple comorbidities including CVA requiring [...] vs abdominoperineal resection. Patient was seen at [facility] by Dr. Gordon Martinez. 08/09/2020 MRI Rectum- [...] fever, headache, chest pain, shortness of breath, (more content not included)... Normal [facility] CNOVon 09-07-2024 CNOV Office Visit (PODIWS ) EMELIA [id number]) 1950 Date Time Provider Department 09/07/24 9:45 AM PARAM BENOITEW BELLA During your visit today, we recorded the [...] Yudy Benoit DPM Referring Provider: YUDY BENOIT [[id number]] Allergies As of Date: 09/07/2024 Noted Allergy [...] tablet by mouth every other day. - trdxauubzcs-lcdaiwfrs-jmelk ter (TRELEGY ELLIPTA) 100-62.5-25 mcg inhalation powder Inhale [...] AT BEDTIME - Blood Pressure Test Kit-Large (Senscient CHOICE BP MONITOR) 1 Each two times a day. - flash glucose sensor (FREESTYLE HEMA 14 DAY SENSOR) kit 1 Each four times daily. - Fenofibrate 160 mg tablet Take 1 tablet by mouth once daily. Problem List As Of Date 09/07/2024 Noted Resolve (more content not included)... [facility] CNPN Telephone (AGSAM) EMELIA JOHNSON ([id number]) 1950 M Date Time Provider Department 09/06/24 JENAE SANTAMARIA AGSSANDRA During your visit today, we recorded the following information about you: Judie Garrido MA 09/06/2024 4:14 PM Signed Nurse from [facility] called david [phone], calling to report she did hear some [...] Visit Diagnosis:Rales [R09.89] Order(s):XR CHEST 2V FRONTAL/LAT [[id number]] Order #: [id number] FUTURE Prescriptions as of 09/08/2024 - levothyroxine (SYNTHROID) 175 mcg tablet Take 1 tablet by mouth daily before breakfast. - rosuvastatin (CRESTOR) 10 mg tablet Take 1 tablet by mouth daily at bedtime. - ferrous sulfate 325 mg (65 mg iron) tablet Take 1 tablet by mouth every other day. - gxlqxdhlgbw-tcjzkddho-qmatj ter (TRELEGY ELLIPTA) 100-62.5-25 mcg inhalation powder Inhale [...] AT BEDTIME - Blood Pressure Test Kit-Large (Senscient CHOICE BP MONITOR) 1 Each two times a day. - flash glucose sensor (FREESTYLE HEMA 14 DAY SENSOR) kit 1 Each four times daily. - Fenofibrate 160 mg tablet Take 1 tablet by mouth once daily. 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 Normal [facility] CNPNon 09-05-2024 CNPN Telephone (AGSAM) EMELIA JOHNSON ([id number]) 1950 M Date Time Provider Department 09/05/24 JENAE SANTAMARIA [facility] During your visit today, we recorded the following information about you: Judie Garrido MA 09/05/2024 2:35 PM Addendum PT Judie called [phone] to report pt had a fall during PT today, pt states he doesn't remember falling, states he felt like he was choking, judie PT states she did catch him and [...] MA 09/05/2024 2:44 PM Signed Spoke to judie, states patient said felt like mucus he was choking on, he was having episode of coughing, reports unknown to a possible upper respiratory infection pt has not complained or said anything about possibly being sick but judie does report he did eat some cheese keshav before starting with PT, also judie reports she was behind him when pt [...] tablet by mouth every other day. - kpxomsryhjr-tzmevkgri-aofpz ter (TRELEGY ELLIPTA) 100-62.5-25 mcg inhalation powder Inhale [...] AT BEDTIME - Blood Pressure Test Kit-Large (Senscient CHOICE BP MONITOR) 1 Each two times a day. - flash glucose sensor (FREESTYLE HEMA 14 DAY SENSOR) kit 1 Each four times daily. - Fenofibrate 160 mg tablet Take 1 tablet by mouth once daily. 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 Normal [facility] C[facility] Telephone (AGSAM) EMELIA JOHNSON ([id number]) 1950 M Date Time Provider Department 08/30/24 JENAE SANTAMARIA AGS During your visit today, we recorded the following information about you: Judie Garrido MA 08/30/2024 1:49 PM Signed Got a call from luis [facility] [place] about [place], she was calling to report [...] urine looked good call back number is [phone] I can call and give a verbal [...] tablet by mouth every other day. - jnwfaoxegoy-ybwplemtm-rvmtf ter (TRELEGY ELLIPTA) 100-62.5-25 mcg inhalation powder Inhale [...] aortic aneurysm (TAAA) without*11/21/2013 02/08/2020 Atherosclerosis of twenty-nine palms artery of extremity w*11/21/2013 Other hyperlipidemia [E78.49] Unspecified hypothyroidism [E03.9] Smoker [F17.200] 01/27/2015 Chronic ischemic right MCA stroke [Z86.73] 02/08/2020 CAD (coronary artery disease), twenty-nine palms coronary *12/27/2013 Postprocedural hypotension [I95.81] 12/27/2013 09/25/2020 [...] 10/18/2020 Abnormal urinalysis [R82.90] 10/02/2020 Moderate protein-calorie malnutritio (more content not included)... Normal [facility] CNPNon 08-25-2024 CNPN Telephone (AKDIAA) EMELIA JOHNSON ([id number]) 1950 M Date Time Provider Department 08/25/24 [...] Show [1558] Prescriptions as of 09/26/2024 - sulfamethoxazole-trimethopr im (BACTRIM DS) 800-160 mg per tablet Take [...] tablet by mouth every other day. - ynwqjcfxhni-bnvhezmqd-jzrzd ter (TRELEGY ELLIPTA) 100-62.5-25 mcg inhalation powder Inhale [...] AT BEDTIME - Blood Pressure Test Kit-Large (Senscient CHOICE BP MONITOR) 1 Each two times a day. - flash glucose sensor (FREESTYLE HMEA 14 DAY SENSOR) kit 1 Each four times daily. - Fenofibrate 160 mg tablet Take 1 tablet by mouth once daily. 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 Normal [facility] 25(OH)D3 SerPl-mCncon 2024 25-hydroxyvitamin D3 [Mass/Vol] 62.7 ng/mL Normal >=30.0 [facility] Comment on above: Order Comment: Speci men Type: BLOOD SPECIMEN [facility] Address: [address] [place] [address] Result Comment: Clas sification of 25 [place] Vitamin D status: Deficiency: <= 20.0 ng/ml. Insufficiency: 21.0-29.0 ng/ml. Sufficiency: >= 30.0 ng/ml. Performed By: #### 1 989-3 #### [facility] CLIA [id number] [address] [place] [address] [place] 25-hydroxyvitamin D3 [Mass/V ol]on 08-22-2024 Interpretation and review of laboratory results Normal [facility] CARCINOEMBRYONIC ANTIGENon 0 08-22-2024 Carcinoembryonic Ag [Mass/Vol] 3.9 ng/mL High NINF - 3.0 ng/mL [facility] Comment on above: This is a [employer] assay using chemiluminescence test methodology. Results determined by different manufacturers may not be comparable CBC W Auto Differential pane l (Bld)on 08-22-2024 Basophils (Bld) [#/Vol] 0.07 10*3/uL [facility] Basophils/100 WBC (Bld) 1.1 % [facility] Differential cell count method Nom (Bld) Auto [facility] Eosinophils (Bld) [#/Vol] 0.11 10*3/uL [facility] Eosinophils/100 WBC (Bld) 1.7 % [facility] Erythrocyte distribution width (RBC) [Ratio] 17.4 % High 11.5 - 15.0 % [facility] Hematocrit (Bld) [Volume fraction] 44.4 % 39.0 - 51.0 % [facility] Hemoglobin (Bld) [Mass/Vol] 13 g/dL 13.0 - 17.0 g/dL [facility] Immature granulocytes (Bld) [#/Vol] 0.03 10*3/uL [facility] Immature granulocytes/100 WBC (Bld) 0.5 % [facility] Interpretation and review of laboratory results Abnormal [facility] Lymphocytes (Bld) [#/Vol] 1.57 10*3/uL [facility] Lymphocytes/100 WBC (Bld) 23.8 % [facility] MCH (RBC) [Entitic mass] 29.5 pg 26.0 - 34.0 pg [facility] MCHC (RBC) [Mass/Vol] 29.3 g/dL Low 30.5 - 36.0 g/dL [facility] MCV (RBC) [Entitic vol] 100.9 fL High 80.0 - 100.0 fL [facility] Monocytes (Bld) [#/Vol] 0.39 10*3/uL [facility] Monocytes/100 WBC (Bld) 5.9 % [facility] Neutrophils (Bld) [#/Vol] 4.42 10*3/uL [facility] Neutrophils/100 WBC (Bld) 67 % [facility] Nucleated RBC (Bld) [#/Vol] [facility] Nucleated RBC/100 WBC (Bld) [Ratio] 0 % /100 WBC [facility] Platelet mean volume (Bld) [Entitic vol] 13 fL High 9.0 - 12.7 fL [facility] Platelets (Bld) [#/Vol] [facility] Comment on above: No clot detected.Minerva telets Clumped Estimate Low. Platelets Estimate (Bld) [#/Vol] Decreased [facility] RBC (Bld) [#/Vol] 4.4 10*6/uL 4.20 - 6.00 m/uL [facility] Red Cell Morph Reviewed: normal [facility] WBC (Bld) [#/Vol] 6.59 10*3/uL [facility] This is an appended report. These results have been appended to a previously verified report. [facility] Basophils (Bld) [#/Vol] 0.07 10*3/uL Normal <0.11 [facility] Comment on above: Order Comment: Speci men Type: BLOOD SPECIMENOrdering Facility: [facility] Address: [address] [place] [address] Performed By: #### 5 7021-8 ####[facility]ORY[facility]IA [id number] [address] [place] Basophils/100 WBC (Bld) 1.1 % Normal A [facility] Comment on above: Order Comment: Speci men Type: BLOOD SPECIMENOrdering Facility: [facility] Address: [address] [place] [address] Performed By: #### 5 7021-8 ####[facility]ORYCLIA [id number] [address] Differential cell count method Nom (Bld) Auto Normal [facility] Comment on above: Order Comment: Speci men Type: BLOOD SPECIMENOrdering Facility: [facility] Address: [address] [place] [address] Performed By: #### 5 7021-8 ####[facility]ORYCLIA [id number] [address] Eosinophils (Bld) [#/Vol] 0.11 10*3/uL Normal <0.46 [facility] Comment on above: Order Comment: Speci men Type: BLOOD SPECIMENOrdering Facility: [facility] Address: [address] [place] [address] Performed By: #### 5 7021-8 ####[facility]ORYCLIA [id number] [address] Eosinophils/100 WBC (Bld) 1.7 % Normal [facility] Comment on above: Order Comment: Speci men Type: BLOOD SPECIMENOrdering Facility: [facility] Address: [address] [place] [address] Performed By: #### 5 7021-8 ####[facility]ORATORYCLIA [id number] [address] [place] Erythrocyte distribution width (RBC) [Ratio] 17.4 % High 11.5-15.0 [facility] Comment on above: Order Comment: Speci men Type: BLOOD SPECIMENOrdering Facility: [facility] Address: [address] [place] [address] Performed By: #### 5 7021-8 ####[facility]ORATORYCLIA [id number] [address] OF [facility] Hematocrit (Bld) [Volume fraction] 44.4 % Normal 39.0-51.0 [facility] Comment on above: Order Comment: Speci men Type: BLOOD SPECIMENOrdering Facility: [facility] Address: [address] [place] [address] Performed By: #### 5 7021-8 ####[facility] LABORATORYCLIA [id number] [address] [place] Hemoglobin (Bld) [Mass/Vol] 13.0 g/dL Normal 13.0-17.0 [facility] Comment on above: Order Comment: Speci men Type: BLOOD SPECIMENOrdering Facility: [facility] Address: [address] [place] [address] Performed By: #### 5 7021-8 ####[facility] LABORATORYCLIA [id number] [address] OF [place] Immature granulocytes (Bld) [#/Vol] 0.03 10*3/uL Normal <0.10 [facility] Comment on above: Order Comment: Speci men Type: BLOOD SPECIMENOrdering Facility: [facility] Address: [address] [place] [address] Performed By: #### 5 7021-8 ####[facility]ORYCLIA [id number] [address] Immature granulocytes/100 WBC (Bld) 0.5 % Normal [facility] Comment on above: Order Comment: Speci men Type: BLOOD SPECIMENOrdering Facility: [facility] Address: [address] [place] [address] Performed By: #### 5 7021-8 ####[facility]ORYCLIA [id number] [address] STATES OF [facility] Lymphocytes (Bld) [#/Vol] 1.57 10*3/uL Normal 1.00-4.00 [facility] Comment on above: Order Comment: Speci men Type: BLOOD SPECIMENOrdering Facility: [facility] Address: [address] [place] [address] Performed By: #### 5 7021-8 ####[facility] LABORATORYCLIA [id number] [address] Lymphocytes/100 WBC (Bld) 23.8 % Normal [facility] Comment on above: Order Comment: Speci men Type: BLOOD SPECIMENOrdering Facility: [facility] Address: [address] [place] [address] Performed By: #### 5 7021-8 ####[facility] LABORATORYCLIA [id number] [address] OF [facility] MCH (RBC) [Entitic mass] 29.5 pg Normal 26.0-34.0 [facility] Comment on above: Order Comment: Speci men Type: BLOOD SPECIMENOrdering Facility: [facility] Address: [address] [place] [address] Performed By: #### 5 7021-8 ####[facility] LABORATORYCLIA [id number] [address] [place] MCHC (RBC) [Mass/Vol] 29.3 g/dL Low 30.5-36.0 [facility] Comment on above: Order Comment: Speci men Type: BLOOD SPECIMENOrdering Facility: [facility] Address: [address] [place] [address] Performed By: #### 5 7021-8 ####[facility] LABORATORYCLIA [id number] [address] MCV (RBC) [Entitic vol] 100.9 fL High 80.0-100.0 [facility] Comment on above: Order Comment: Speci men Type: BLOOD SPECIMENOrdering Facility: [facility] Address: [address] [place] [address] Performed By: #### 5 7021-8 ####[facility]ORYCLIA [id number] [place] [address] [place] Monocytes (Bld) [#/Vol] 0.39 10*3/uL Normal <0.87 [facility] Comment on above: Order Comment: Speci men Type: BLOOD SPECIMENOrdering Facility: [facility] Address: [address] [place] [address] Performed By: #### 5 7021-8 ####[facility]ORYCLIA [id number] [address] [place] Monocytes/100 WBC (Bld) 5.9 % Normal A [facility] Comment on above: Order Comment: Speci men Type: BLOOD SPECIMENOrdering Facility: [facility] Address: [address] [place] [address] Performed By: #### 5 7021-8 ####[facility] LABORATORYCLIA [id number] [place] [address] [place] Neutrophils (Bld) [#/Vol] 4.42 10*3/uL Normal 1.45-7.50 [facility] Comment on above: Order Comment: Speci men Type: BLOOD SPECIMENOrdering Facility: [facility] Address: [address] [place] [address] Performed By: #### 5 7021-8 ####[facility]ATORYCLIA [id number] [address] [place] Neutrophils/100 WBC (Bld) 67.0 % Normal [facility] Comment on above: Order Comment: Speci men Type: BLOOD SPECIMENOrdering Facility: [facility] Address: [address] [place] [address] Performed By: #### 5 7021-8 ####[facility]ORYCLIA [id number] [place] [address] [place] Nucleated RBC (Bld) [#/Vol] 10*3/uL Normal <0.01 [facility] Comment on above: Order Comment: Speci men Type: BLOOD SPECIMENOrdering Facility: [facility] Address: [address] [place] [address] Performed By: #### 5 7021-8 ####[facility] LABORATORYCLIA [id number] [address] [place] Nucleated RBC/100 WBC (Bld) [Ratio] 0.0 /100 WBC Normal [facility] Comment on above: Order Comment: Speci men Type: BLOOD SPECIMENOrdering Facility: [facility] Address: [address] [place] [address] Performed By: #### 5 7021-8 ####[facility] LABORATORYCLIA [id number] [address] [place] Platelet mean volume (Bld) [Entitic vol] 13.0 fL High 9.0-12.7 [facility] Comment on above: Order Comment: Speci men Type: BLOOD SPECIMENOrdering Facility: [facility] Address: [address] [place] [address] Performed By: #### 5 7021-8 ####[facility] LABORATORYCLIA [id number] [address] Platelets (Bld) [#/Vol] Normal A [facility] Comment on above: Order Comment: Speci men Type: BLOOD SPECIMENOrdering Facility: [facility] Address: [address] [place] [address] Result Comment: No c lot detected.Platelets Clumped Estimate Low. Performed By: #### 5 7021-8 ####[facility] LABORATORYCLIA [id number] [address] [place] Platelets Estimate (Bld) [#/Vol] Decreased Normal [facility] Comment on above: Order Comment: Speci men Type: BLOOD SPECIMENOrdering Facility: [facility] Address: [address] [place] [address] Performed By: #### 5 7021-8 ####[facility] LABORATORYCLIA [id number] [address] [place] RBC (Bld) [#/Vol] 4.40 10*6/uL Normal 4.20-6.00 [facility] Comment on above: Order Comment: Speci men Type: BLOOD SPECIMENOrdering Facility: [facility] Address: [address] [place] [address] Performed By: #### 5 7021-8 ####[facility] LABORATORYCLIA [id number] [address] RED CELL MORPH Reviewed: normal Normal [facility] Comment on above: Order Comment: Speci men Type: BLOOD SPECIMENOrdering Facility: [facility] Address: [address] [place] [address] Performed By: #### 5 7021-8 ####[facility] LABORATORYCLIA [id number] [address] STATES [facility] WBC (Bld) [#/Vol] 6.59 10*3/uL Normal 3.70-11.00 [facility] Comment on above: Order Comment: Speci men Type: BLOOD SPECIMENOrdering Facility: [facility] Address: [address] [place] [address] Performed By: #### 5 7021-8 ####[facility] LABORATORYCLIA [id number] [address] CEA SerPl-mCncon 08-22-2024 Carcinoembryonic Ag [Mass/Vol] 3.9 ng/mL High <3.0 [facility] Comment on above: Order Comment: Speci men Type: BLOOD SPECIMENOrdering Facility: [facility] Address: [address] [place] [address] Result Comment: This is a [employer] assay using chemiluminescence test methodology. Results determined by different manufacturers may not be comparable Performed By: #### 2 276-4, 2039-6 ####[facility] LABORATORYCLIA [id number] [address] OF [facility] CNOVon 08-22-2024 CNOV Office Visit (AGSAM) EMELIA JOHNSON ([id number]) 1950 Date Time Provider Department 08/22/24 10:40 AM JENAE SANTAMARIA During your visit today, we recorded the following information about you: Pulse Blood pressure Weight 100/minute 136/82 80.7 kg Jenae Santamaria MD 08/27/2024 11:10 AM Signed [id number] [place] [address] Date of Evaluation: 08/22/2024 Patient Name: Emelia [...] on 07/06/2024. Patient was also evaluated by OFFICE ASSISTANCE. Patient underwent EGD with GI (Dr. 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 Normal [facility] Carcinoembryonic Ag [Mass/Vo l]on 08-22-2024 Interpretation and review of laboratory results Abnormal [facility] FERRITINon 08-22-2024 Ferritin [Mass/Vol] 146 ng/mL 30.3 - 565.7 ng/mL [facility] Ferritin SerPl-mCncon 2024 Ferritin [Mass/Vol] 146.0 ng/mL Normal 30.3-565.7 [facility] Comment on above: Order Comment: Chadwick reid Type: BLOOD SPECIMEN [facility] Address: [address] [place] [address] Performed By: #### 2 276-4, 2038- #### [facility] CLIA [id number] [address] Ferritin [Mass/Vol]on 2024 Interpretation and review of laboratory results Normal [facility] HbA1c (Bld)on 08-22-2024 Average glucose Estimated from glycated hemoglobin (Bld) [Mass/Vol] 88 mg/dL [facility] Comment on above: eAG: (Estimated aver age glucose) is a calculated value from HgbA1c and is scheduling representative of the average blood glucose level in the last 2-3 month period. HbA1c (Bld) [Mass fraction] 4.7 % 4.3 - 5.6 % [facility] Comment on above: [place] Diabetes As sociation guidelines indicate that patients with HgbA1c in the range 5.7-6.4% are at increased risk for development of diabetes, and intervention by lifestyle modification may be beneficial. HgbA1c greater or equal to 6.5% is considered diagnostic of diabetes. [facility] Average glucose Estimated from glycated hemoglobin (Bld) [Mass/Vol] 88 mg/dL Normal [facility] Comment on above: Order Comment: Speci men Type: BLOOD SPECIMENOrdering Facility: [facility] Address: [address] [place] [address] Result Comment: eAG: (Estimated average glucose) is a calculated value from HgbA1c and is scheduling representative of the average blood glucose level in the last 2-3 month period. Performed By: #### 5 5454-3 ####[facility] LABCLIA [id number] [address] [place] HbA1c (Bld) [Mass fraction] 4.7 % Normal 4.3-5.6 [facility] Comment on above: Order Comment: Chadwick reid Type: BLOOD SPECIMENOrdering Facility: [facility] Address: [address] [place] [address] Result Comment: [place] Diabetes Association guidelines indicate that patients with HgbA1c in the range 5.7-6.4% are at increased risk for development of diabetes, and intervention by lifestyle modification may be beneficial. HgbA1c greater or equal to 6.5% is considered diagnostic of diabetes. Performed By: #### 5 5454-3 ####[facility] LABCLIA [id number] [place] [address] [place] Iron and Iron binding capaci ty panel 08-22-2024 Iron [Mass/Vol] 36 ug/dL Low 41 - 186 ug/dL [facility] Iron binding capacity [Mass/Vol] 185 ug/dL Low 232 - 386 ug/dL [facility] Iron saturation [Mass fraction] 19.5 % 15.0 - 57.0 % [facility] Iron [Mass/Vol] 36 ug/dL Low 41-186 [facility] Comment on above: Order Comment: Chadwick reid Type: BLOOD SPECIMEN [facility] Address: [address] [place] [address] Performed By: #### 5 0190-8, 49023-1, 63882-3, 3016-3 #### [facility] CLIA [id number] [address] [place] Iron binding capacity [Mass/Vol] 185 ug/dL Low 232-386 [facility] Comment on above: Order Comment: Chadwick men Type: BLOOD SPECIMEN [facility] Address: [address] [place] [address], [place] [address] Performed By: #### 5 0190-8, 75738-0, 55592-0, 3016-3 #### [facility] CLIA [id number] [id number] [facility] Iron saturation [Mass fraction] 19.5 % Normal 15.0-57.0 [facility] Comment on above: Order Comment: Speci men Type: BLOOD SPECIMEN [facility] Address: [address] [id number] Performed By: #### 5 0190-8, 76953-5, 28127-2, 3016-3 #### [facility] CLIA [id number] [address] [id number] [facility] Lipid 1996 panelon 5 Cholesterol [Mass/Vol] 79 mg/dL NINF - 200 mg/dL [facility] Comment on above: <200 mg/dL, Desirabl e 200-239 mg/dL, Borderline high >239 mg/dL, High Cholesterol in HDL [Mass/Vol] 43 mg/dL 39 - PINF mg/dL [facility] Comment on above: 40-59 mg/dL, Accepta ble >59 mg/dL, High: Negative risk factor for coronary heart disease <40 mg/dL, Low: Positive risk factor for coronary heart disease Cholesterol in LDL [Mass/Vol] mg/dL NINF - 100 mg/dL [facility] Comment on above: <100 mg/dL, Optimal 100-129 mg/dL, Near optimal/above optimal 130-159 mg/dL, Borderline high 160-189 mg/dL, High >189 mg/dL, Very high Secondary prevention optimal LDL Cholesterol levels are recommended to be <70 mg/dL LDL cholesterol is calculated using the Rodriguez-NIH equation. Cholesterol in LDL/Cholesterol in HDL [Mass ratio] NINF - 2.54 [facility] Comment on above: Reference: 1. National Cholesterol Education Program ATP III Guideline At-A-Glance Quick Desk Reference: National Heart, Lung, and Blood [place]. National Institutes of Health. 2001: NIH Publication No. 01-3305. 2. An International Atherosclerosis Society position paper: global recommendations for the management of dyslipidemia: executive summary, Atherosclerosis. 2014: 232(2):410-413. Cholesterol in VLDL [Mass/Vol] 18 mg/dL NINF - 30 mg/dL [facility] Cholesterol non HDL [Mass/Vol] 36 mg/dL NINF - 130 mg/dL [facility] Comment on above: <130 mg/dL, Optimal 130-159 mg/dL, Near optimal/above optimal 160-189 mg/dL, Borderline high 190-219 mg/dL, High >219 mg/dL, Very high Secondary prevention optimal non HDL Cholesterol levels are recommended to be <100 mg/dL Cholesterol.total/Gerri sterol in HDL [Mass ratio] 1.84 {ratio} NINF - 5.10 [facility] Fasting Time 12 hrs [facility] Triglyceride [Mass/Vol] 145 mg/dL NINF - 150 mg/dL [facility] Comment on above: <150 mg/dL, Normal 150-199 mg/dL, Borderline high 200-499 mg/dL, High >499 mg/dL, Very high Cholesterol [Mass/Vol] 79 mg/dL Normal <200 [facility] Comment on above: Order Comment: Chadwick reid Type: BLOOD SPECIMEN [facility] Address: [address] [place] [address] Result Comment: <200 mg/dL, Desirable 200-239 mg/dL, Borderline high >239 mg/dL, High Performed By: #### 5 0190-8, 25775-6, 57614-4, 3016-3 #### [facility] CLIA [id number] [address] OF [facility] Cholesterol in HDL [Mass/Vol] 43 mg/dL Normal >39 [facility] Comment on above: Order Comment: [facility] Type: BLOOD SPECIMEN [facility] Facility[facility] Address: [address] [place] [address] Result Comment: 40-5 9 mg/dL, Acceptable >59 mg/dL, High: Negative risk factor for coronary heart disease <40 mg/dL, Low: Positive risk factor for coronary heart disease Performed By: #### 5 0190-8, 38146-3, 30365-2, 3016-3 #### [facility] CLIA [id number] [address] OF [facility] Cholesterol in LDL [Mass/Vol] mg/dL Normal <100 [facility] Comment on above: Order Comment: Chadwick reid Type: BLOOD SPECIMEN Ordering Facility: [facility] Address: [address] [place] [address] Result Comment: <100 mg/dL, Optimal 100-129 mg/dL, Near optimal/above optimal 130-159 mg/dL, Borderline high 160-189 mg/dL, High >189 mg/dL, Very high Secondary prevention optimal LDL Cholesterol levels are recommended to be <70 mg/dL LDL cholesterol is calculated using the Rodriguez-NIH equation. Performed By: #### 5 0190-8, 66054-0, 49005-3, 3016-3 #### [facility] CLIA [id number] [address] Cholesterol in LDL/Cholesterol in HDL [Mass ratio] {ratio} Normal <2.54 [facility] Comment on above: Order Comment: Chadwick reid Type: BLOOD SPECIMEN Ordering Facility: [facility] Address: [address] [place] [address] Result Comment: Refe rence: 1. National Cholesterol Education Program ATP III Guideline At-A-Glance Quick Desk Reference: National Heart, Lung, and Blood [place]. National Institutes of Health. 2001: NIH Publication No. 01-3305. 2. An International Atherosclerosis Society position paper: global recommendations for the management of dyslipidemia: executive summary, Atherosclerosis. 2014: 232(2):410-413. Performed By: #### 5 0190-8, 32937-4, 44244-5, 6-3 #### [facility] CLIA [id number] [address] Cholesterol in VLDL [Mass/Vol] 18 mg/dL Normal <30 [facility] Comment on above: Order Comment: Chadwick jeanette Type: BLOOD SPECIMEN Ordering Facility: [facility] Address: [address] [place] [address] Performed By: #### 5 0190-8, 80713-3, 28950-9, 3016-3 #### [facility] CLIA [id number] [address] Cholesterol non HDL [Mass/Vol] 36 mg/dL Normal <130 [facility] Comment on above: Order Comment: Speci men Type: BLOOD SPECIMEN Ordering Facility: [facility] Address: [address] [place] [address] Result Comment: <130 mg/dL, Optimal 130-159 mg/dL, Near optimal/above optimal 160-189 mg/dL, Borderline high 190-219 mg/dL, High >219 mg/dL, Very high Secondary prevention optimal non HDL Cholesterol levels are recommended to be <100 mg/dL Performed By: #### 5 0190-8, 95928-8, 43286-0, 3016-3 #### [facility] CLIA [id number] [address] Cholesterol.total/Gerri sterol in HDL [Mass ratio] 1.84 {ratio} Normal <5.10 [facility] Comment on above: Order Comment: Speci men Type: BLOOD SPECIMEN Ordering Facility: [facility] Address: [address] [place] [address] Performed By: #### 5 0190-8, 09180-9, 61669-5, 3016-3 #### [facility] CLIA [id number] [address] FASTING TIME 12 hrs Normal [facility] Comment on above: Order Comment: Speci men Type: BLOOD SPECIMEN [facility]ing Facility: [facility] Address: [address] [place] [address] Performed By: #### 5 0190-8, 49674-7, 47343-7, 3016-3 #### [facility] CLIA [id number] [address] OF [facility] Triglyceride [Mass/Vol] 145 mg/dL Normal <150 [facility] Comment on above: Order Comment: Speci men Type: BLOOD SPECIMEN Ordering Facility: [facility] Address: [address] [place] [address] Result Comment: <150 mg/dL, Normal 150-199 mg/dL, Borderline high 200-499 mg/dL, High >499 mg/dL, Very high Performed By: #### 5 0190-8, 93351-2, 85773-4, 3016-3 #### [facility] CLIA [id number] [address] [place] No Panel Informationon 08-22 [facility] Interpretation and review of laboratory results Abnormal [facility] Renal function 2000 panelon 08-22-2024 Albumin [Mass/Vol] 3.8 g/dL Low 3.9 - 4.9 g/dL [facility] Anion gap [Moles/Vol] 14 mmol/L 8 - 15 mmol/L [facility] Calcium [Mass/Vol] 9.5 mg/dL 8.5 - 10. 2 mg/dL [facility] Chloride [Moles/Vol] 104 mmol/L 98 - 10 7 mmol/L [facility] CO2 [Moles/Vol] 22 mmol/L 22 - 30 mmol/L [facility] Creatinine [Mass/Vol] 1.47 mg/dL High 0.73 - 1.22 mg/dL [facility] GFR/1.73 sq M.predicted among non-blacks MDRD (S/P/Bld) [Vol rate/Area] 50 mL/min/{1.73_m2} Low - PINF [facility] Comment on above: Estimated Glomerular Filtration Rate (eGFR) is calculated using the 2020 CKD-EPI creatinine equation. This equation utilizes serum creatinine, sex, and age as parameters. The creatinine assay has traceable calibration to isotope dilution-mass spectrometry. Refer to KDIGO guidelines for clinical interpretation. In patients with unstable renal function, e.g. those with acute kidney injury, the eGFR may not accurately reflect actual GFR. Glucose [Mass/Vol] 88 mg/dL 74 - 99 mg/dL [facility] Comment on above: The [place] Diabete s Association (ADA) provides guidance for cutoff values [...] Standards of Medical Care in Diabetes 2016, [place] Diabetes Association. Diabetes Care. 2016.39(Suppl 1). Phosphate [Mass/Vol] 3.2 mg/dL 2.7 - 4 .8 mg/dL [facility] Potassium [Moles/Vol] 4.2 mmol/L 3.7 - 5.1 mmol/L [facility] Sodium [Moles/Vol] 140 mmol/L 136 - 144 mmol/L [facility] Urea nitrogen [Mass/Vol] 13 mg/dL 9 - 24 mg/dL [facility] Albumin [Mass/Vol] 3.8 g/dL Low 3.9-4.9 [facility] Comment on above: Order Comment: Chadwick reid Type: BLOOD SPECIMEN [facility] Facility[facility] Address: [address] [place] [address] Performed By: #### 5 0190-8, 59932-8, 98513-5, 3016-3 #### [facility] CLIA [id number] [address] STATES OF [facility] Anion gap [Moles/Vol] 14 mmol/L Normal 8-15 [facility] Comment on above: Order Comment: Chadwick ried Type: BLOOD SPECIMEN [facility]ing Facility[facility] Address: [address] [place] [address] Performed By: #### 5 0190-8, 29068-4, 55104-4, 3016-3 #### [facility] CLIA [id number] 1 [place] [address] [place] Calcium [Mass/Vol] 9.5 mg/dL Normal 8.5-10.2 [facility] Comment on above: Order Comment: Chadwick reid Type: BLOOD SPECIMEN Ordering Facility[facility] Address: [address] [place] [address] Performed By: #### 5 0190-8, 62294-8, 97621-8, 3016-3 #### [facility] CLIA [id number] 1 [place] [address] [place] Chloride [Moles/Vol] 104 mmol/L Normal 98-107 [facility] Comment on above: Order Comment: Speci men Type: BLOOD SPECIMEN Ordering Facility: [facility] Address: [address] [place] [address] Performed By: #### 5 0190-8, 17745-1, 15187-9, 3016-3 #### [facility] CLIA [id number] 1 [place] [address] [place] CO2 [Moles/Vol] 22 mmol/L Normal 22-30 [facility] Comment on above: Order Comment: Speci men Type: BLOOD SPECIMEN Ordering Facility: [facility] Address: [address] [place] [address] Performed By: #### 5 0190-8, 40592-2, 80451-1, 3016-3 #### [facility] CLIA [id number] [address] [place] Creatinine [Mass/Vol] 1.47 mg/dL High 0.73-1.22 [facility] Comment on above: Order Comment: Speci men Type: BLOOD SPECIMEN Ordering Facility: [facility] Address: [address] [place] [address] Performed By: #### 5 0190-8, 91716-5, 63257-6, 3016-3 #### [facility] CLIA [id number] [address] Creatinine and Glomerular filtration rate.predicted panel (S/P/Bld) 50 mL/min/1.73m??? Low >=60 [facility] Comment on above: Order Comment: Speci men Type: BLOOD SPECIMEN Ordering Facility: [facility] Address: [address] [place] [address] Result Comment: Cathy mated Glomerular Filtration Rate (eGFR) is calculated using the 2020 CKD-EPI creatinine equation. This equation utilizes serum creatinine, sex, and age as parameters. The creatinine assay has traceable calibration to isotope dilution-mass spectrometry. Refer to KDIGO guidelines for clinical interpretation. In patients with unstable renal function, e.g. those with acute kidney injury, the eGFR may not accurately reflect actual GFR. Performed By: #### 5 0190-8, 28864-7, 58909-0, 3016-3 #### [facility] CLIA [id number] [address] [place] [address] [place] Glucose [Mass/Vol] 88 mg/dL Normal 74-99 [facility] Comment on above: Order Comment: Chadwick reid Type: BLOOD SPECIMEN [facility] Facility[facility] Address: [address] [place] [address] Result Comment: The [place] Diabetes Association (ADA) provides guidance for cutoff [...] Standards of Medical Care in Diabetes 2016, [place] Diabetes Association. Diabetes Care. 2016.39(Suppl 1). Performed By: #### 5 0190-8, 08959-6, 68038-8, 3016-3 #### [facility] CLIA [id number] [address] [place] [address] [place] Phosphate [Mass/Vol] 3.2 mg/dL Normal 2.7-4.8 [facility] Comment on above: Order Comment: Chadwick reid Type: BLOOD SPECIMEN Ordering Facility[facility] Address: [address] [place] [address] Performed By: #### 5 0190-8, 23709-4, 95676-6, 3016-3 #### [facility] CLIA [id number] [address] [place] [address] [place] Potassium [Moles/Vol] 4.2 mmol/L Normal 3.7-5.1 [facility] Comment on above: Order Comment: Chadwick reid Type: BLOOD SPECIMEN Ordering Facility[facility] Address: [address] [place] [address] Performed By: #### 5 0190-8, 11234-2, 25402-6, 3016-3 #### [facility] CLIA [id number] [address] STATES OF [facility] Sodium [Moles/Vol] 140 mmol/L Normal 136-144 [facility] Comment on above: Order Comment: Speci men Type: BLOOD SPECIMEN Ordering Facility: [facility] Address: [address] [place] [address] Performed By: #### 5 0190-8, 97402-4, 94310-7, 3016-3 #### [facility] CLIA [id number] [address] [place] Urea nitrogen [Mass/Vol] 13 mg/dL Normal 9-24 [facility] Comment on above: Order Comment: Speci men Type: BLOOD SPECIMEN Ordering Facility: [facility] Address: [address] [place] [address] Performed By: #### 5 0190-8, 89932-9, 06615-8, 3016-3 #### [facility] CLIA [id number] [address] OF [facility] THYROID STIMULATING HORMONEo n 08-22-2024 TSH Qn 0.083 m[IU]/L Low [facility] TSH SerPl-aCncon 08-22-2024 TSH Qn 0.083 m[IU]/L Low 0.270-4.20 0 [facility] Comment on above: Order Comment: Speci men Type: BLOOD SPECIMEN Ordering Facility: [facility] Address: [address] [place] [address] Performed By: #### 5 0190-8, 67221-7, 85710-0, 3016-3 #### [facility] CLIA [id number] [address] [place] VITAMIN D 25 HYDROXYon 08-22 25-hydroxyvitamin D3 [Mass/Vol] 62.7 ng/mL 30.0 - PINF ng/mL [facility] Comment on above: Classification of 25 [place] Vitamin D status: Deficiency: <= 20.0 ng/ml. Insufficiency: 21.0-29.0 ng/ml. Sufficiency: >= 30.0 ng/ml. Francisca 08-14-2024 CNPN Telephone (AGSAM) ALEXEMELIA Ranjeet ([id number]) 1950 M Date Time Provider Department 08/14/24 JENAE SANTAMARIA [facility] During your visit today, we recorded the following information about you: Judie Garrido MA 08/14/2024 2:29 PM Signed Message from nurse asking what size cath maddox does pt need to be ordered states he has a 20in now and he also has 16in at home, needs clarification as to what size he needs to be on so they can order it. Call back number for nurse is [phone] Please advise Jenae Santamaria MD 08/15/2024 5:10 PM Signed I am not sure size of patient's maddox catheter. Patient was previously following with Dr. Cameron Hernandez (urology). Are they able to reach [...] Fully Assessed Reason for Visit: Patient Question [3927] Prescriptions as of 08/17/2024 - ergocalciferol 50,000 [...] 1 tablet by mouth once daily. - aoytqwpecxu-tywsrvimd-bioxs ter (TRELEGY ELLIPTA) 100-62.5-25 mcg inhalation powder Inhale [...] aortic aneurysm (TAAA) without*11/21/2013 02/08/2020 Atherosclerosis of twenty-nine palms artery of extremity w*11/21/2013 Other hyperlipidemia [E78.49] Unspecified hypothyroidism [E03.9] Smoker [F17.200] 01/27/2015 Chronic ischemic right MCA stroke [Z86.73] 02/08/2020 CAD (coronary artery disease), twenty-nine palms coronary *12/27/2013 Postprocedural hypotension [I95.81] 12/27/2013 09/25/2020 [...] [R82.90] 10/02/2020 Moderate protein-calorie malnutrition (HCC) [E4*10/03/2020 Postoperativ (more content not included)... Normal [facility] MR/CABRERA.Benji 08-14-2024 /[facility]A.NICKI [facility] C[facility]N Tele[facility] (AGSAM) EMELIA JOHNSON Ranjeet ([id number]) 1950 M Date Time Provider Department 08/09/24 [...] Yes Is this the Third or Fourth "No Show"? Corie Bryant August 09, 2024 11:33 AM Allergies [...] 1 tablet by mouth once daily. - csihlpktahl-uueabafhg-tktpx ter (TRELEGY ELLIPTA) 100-62.5-25 mcg inhalation powder Inhale [...] aortic aneurysm (TAAA) without*11/21/2013 02/08/2020 Atherosclerosis of twenty-nine palms artery of extremity w*11/21/2013 Other hyperlipidemia [E78.49] Unspecified hypothyroidism [E03.9] Smoker [F17.200] 01/27/2015 Chronic ischemic right MCA stroke [Z86.73] 02/08/2020 CAD (coronary artery disease), twenty-nine [place] coronary *12/27/2013 Postprocedural hypotension [I95.81] 12/27/2013 09/25/2020 [...] 10/18/2020 On total parenteral nutrition (TPN) [Z78.9] (more content not included)... Normal [facility] CNPNon 08-04-2024 CNPN Telephone (AGS) ALEXEMELIA Ranjeet ([id number]) 1950 M Date Time Provider Department 08/04/24 JENAE SANTAMARIA [facility] During your visit today, we recorded the following information about you: Janel Fernández MA 08/04/2024 3:12 PM Signed Verbal orders given to Bety for SN, OT, PT and [employer]. Janel Fernández MA Allergies As of Date: [...] 1 tablet by mouth once daily. - opeqkyubrka-mtqpandtt-bimje ter (TRELEGY ELLIPTA) 100-62.5-25 mcg inhalation powder Inhale [...] BULK, MISC - Blood Pressure Test Kit-Large (Senscient BP MONITOR) 1 Each two times a day. - flash glucose sensor (MuzookaSTYLE HEMA 14 DAY SENSOR) kit 1 Each four times daily. - Fenofibrate 160 mg tablet Take 1 tablet by mouth once daily. 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 [place], [place], [id number] Bilirubin Test strip Ql (U)O rdered By: Shari Hurd on 08-02-2024 Bilirubin Ql (U) Negative Negative [facility] Ketones Test strip Ql (U)Ord ered By: Shari Hurd on 08-02-2024 Ketones Ql (U) Negative Negative [facility] Microscopic analysis of urin e for red blood cells (RBC)Ordered By: Shari Hurd on 08-02-2024 Microscopic analysis of urine for red blood cells (RBC) 5-10 SEEN /hpf 0-5 [facility] Comment on above: Previous reported re sult: 0 SEEN /hpfEdited by: KATHERYN on 08/02/24:0935 AMENDED REPORT 08/02/24934 RBC-UA previously reported as: 0 SEEN /hpf Mucus LM Ql (Urine sed)Order ed By: Shari Hurd on 08-02-2024 Mucus Ql (Urine sed) 0 SEEN /hpf [facility] Nitrite Test strip Ql (U)Ord ered By: Shari Hrud on 08-02-2024 Nitrite Ql (U) Negative Negative [facility] Protein Test strip Ql (U)Ord ered By: Shari Hurd on 08-02-2024 Protein Ql (U) 100 mg/dl High Negative [facility] Squamous epithelial cells de tection in urine sediment by light microscopyOrdered By: Shari Hurd on 08-02-2024 Epithelial cells.squamous LM Ql (Urine sed) 0 SEEN /hpf 0-5 [facility] Urinalysis, Completeon 08-02 RBC 5-10 SEEN Normal 0-5 [facility] Comment on above: Order Comment: 105-2 CLEAN CATCH Result Comment: AMENDED REPORT 08/02/24934 RBC-UA previously reported as: 0 SEEN /hpf Performed By: #### M 100.2200, L400.0001 ####[facility] [address] [place], [place], [address] WBC >100 SEEN Normal 0-5 [facility] Comment on above: Order Comment: 105-2 CLEAN CATCH Result Comment: AMENDED REPORT 08/02/2486 WBC previously reported as: >100 SEEN /hpfMicroscopic field is filled. Other elements may beobscured. Performed By: #### M 100.2200, L400.0001 ####[facility] [address] [place], [place], [address] Urine clarityOrdered By: Thomas Hurd on 08-02-2024 Clarity (U) Cloudy Clear [facility] Urine color determinationOrd ered By: Shari Hurd on 08-02-2024 Color (U) Yellow Yellow [facility] Urine cultureOrdered By: Thomas Hurd on 08-02-2024 Bacteria identified Cx Nom (U) Enterobacter cloacae complex Abnormal [facility] Urine glucose detectionOrder ed By: Shari Hurd on 08-02-2024 Glucose Ql (U) Normal mg/dl Normal [facility] Urine leukocyte esterase det ection by dipstickOrdered By: Shari Hurd on 08-02-2024 Leukocyte esterase Test strip Ql (U) 500 /ul High Negative [facility] Urine pHOrdered By: Shari Dial udeliu on 08-02-2024 pH (U) 6.0 [pH] 5.0 - 8.0 [facility] Urine sediment bacteria coun t by microscopy (number/high power field)Ordered By: Shari Hurd on 08-02-2024 Bacteria LM.HPF (Urine sed) [#/Area] 0 /[HPF] None Seen [facility] Urine specific gravity measu rementOrdered By: Shari Hurd on 08-02-2024 Specific gravity (U) [Rel density] 1.020 1.002-1.03 0 [facility] Urine urobilinogen measureme ntOrdered By: Shari Hurd on 08-02-2024 Urobilinogen Ql (U) Normal mg/dl Normal [facility] White blood cell countOrdere d By: Shari Hurd on 08-02-2024 White blood cell count >100 SEEN /hpf 0-5 [facility] Comment on above: Previous reported re sult: >100 SEEN /hpfEdited by: KATHERYN on 08/02/24:0934 AMENDED REPORT 08/02/24 0934 WBC previously reported as: >100 SEEN /hpf Microscopic field is filled. Other elements may be obscured. Absolute lymphocyte countOrd ered By: Shari Hurd on 07-31-2024 Lymphocytes Auto (Unsp spec) [#/Vol] 1.36 10*3/uL 0.83-4.51 [facility] Absolute neutrophil countOrd ered By: Sharitoni Hurd on 07-31-2024 Neutrophils (Bld) [#/Vol] 4.0 10*3/uL 2.0-7.7 [facility] Anion gap in Serum or Plasma Ordered By: Shari Hurd on 07-31-2024 Anion gap [Moles/Vol] 10 mmol/L 5-15 [facility] Automated lymphocyte count a s percentage of total leukocytesOrdered By: Shari Hurd on 07-31-2024 Lymphocytes/100 WBC Auto (Unsp spec) 22.2 % 19-41 [facility] BUN/creatinine ratioOrdered By: Shari Hurd on 07-31-2024 Urea nitrogen/Creatinine [Mass ratio] 6.8 mg/mg Low 10-20 [facility] Basophil percentageOrdered B y: Shari Hurd on 07-31-2024 Basophils/100 WBC (Bld) 0.8 % 0-1 [facility] Bilirubin, totalOrdered By: Shari Hurd on 07-31-2024 Bilirubin [Mass/Vol] 0.25 mg/dL 0.00-1.30 [facility] CBC W/Diff, Automatedon Absolute Lymph 1.36 X10 3/uL Normal 0.83-4.51 [facility] Comment on above: Order Comment: 105.2 Performed By: #### L 500.4050, L501.5200, L100.0100 ####[facility] [address] [place], [address] Absolute Neut 4.0 X10 3/uL Normal 2.0-7.7 [facility] Comment on above: Order Comment: 105.2 Performed By: #### L 500.4050, L501.5200, L100.0100 ####[facility] [address] [place], [address] Basophils/100 WBC (Bld) 0.8 % Normal 0-1 [facility] Comment on above: Order Comment: 105.2 Performed By: #### L 500.4050, L501.5200, L100.0100 ####[facility] [address] [place], [address] Eosinophils/100 WBC (Bld) 2.9 % Normal 0-5 [facility] Comment on above: Order Comment: 105.2 Performed By: #### L 500.4050, L501.5200, L100.0100 ####[facility] [address] [place], [address] Erythrocyte distribution width (RBC) [Ratio] 17.9 % High 11.6-14.6 [facility] Comment on above: Order Comment: 105.2 Performed By: #### L 500.4050, L501.5200, L100.0100 ####[facility] [address] [place], [address] Hematocrit (Bld) [Volume fraction] 31.0 % Low 40-54 [facility] Comment on above: Order Comment: 105.2 Performed By: #### L 500.4050, L501.5200, L100.0100 ####[facility] [address] [place], [address] Hemoglobin (Bld) [Mass/Vol] 9.8 g/dL Low 13.0-16.5 [facility] Comment on above: Order Comment: 105.2 Performed By: #### L 500.4050, L501.5200, L100.0100 ####[facility] [address] [place], [address] IG% 1.000 High 0.0-0.9 [facility] Comment on above: Order Comment: 105.2 Result Comment: IG% - Immature Granulocytes (promyelocytes, myelocytes andmetamyelocytes) > 1% indicates that a LEFT SHIFT is Present. Performed By: #### L 500.4050, L501.5200, L100.0100 ####[facility] [address] [place], [address] Lymphocytes/100 WBC (Bld) 22.2 % Normal 19-41 [facility] Comment on above: Order Comment: 105.2 Performed By: #### L 500.4050, L501.5200, L100.0100 ####[facility] [address] [place], [address] MCH (RBC) [Entitic mass] 29.7 pg Normal 27.0-32.0 [facility] Comment on above: Order Comment: 105.2 Performed By: #### L 500.4050, L501.5200, L100.0100 ####[facility] [address] [place], [address] MCHC (RBC) [Mass/Vol] 31.6 g/dL Low 32-36 [facility] Comment on above: Order Comment: 105.2 Performed By: #### L 500.4050, L501.5200, L100.0100 ####[facility] [address] [place], [address] MCV (RBC) [Entitic vol] 93.9 fL Normal 80-94 [facility] Comment on above: Order Comment: 105.2 Performed By: #### L 500.4050, L501.5200, L100.0100 ####[facility] [address] [place], [address] Monocytes/100 WBC (Bld) 7.8 % Normal 0-10 [facility] Comment on above: Order Comment: 105.2 Performed By: #### L 500.4050, L501.5200, L100.0100 ####[facility] [address] [place], [address] Neutrophils/100 WBC (Bld) 65.3 % Normal 47-70 [facility] Comment on above: Order Comment: 105.2 Performed By: #### L 500.4050, L501.5200, L100.0100 ####[facility] [address] [place], [address] Nucleated RBC (Bld) [#/Vol] 0 10*3/uL Normal 0-5 [facility] Comment on above: Order Comment: 105.2 Performed By: #### L 500.4050, L501.5200, L100.0100 ####[facility] [address] [place], [address] Platelet mean volume (Bld) [Entitic vol] 11.5 fL Normal 6.2-12.0 [facility] Comment on above: Order Comment: 105.2 Performed By: #### L 500.4050, L501.5200, L100.0100 ####[facility] [address] [place], [address] Platelets (Bld) [#/Vol] 159 10*3/uL Normal 150-450 [facility] Comment on above: Order Comment: 105.2 Performed By: #### L 500.4050, L501.5200, L100.0100 ####[facility] [address] [place], [address] RBC (Bld) [#/Vol] 3.30 10*6/uL Low 4.6-6.2 [facility] Comment on above: Order Comment: 105.2 Performed By: #### L 500.4050, L501.5200, L100.0100 ####[facility] [address] [place], [address] RDW SD 60.6 fl High 35.1-43.9 [facility] Comment on above: Order Comment: 105.2 Performed By: #### L 500.4050, L501.5200, L100.0100 ####[facility] [address] [place], [address] WBC (Bld) [#/Vol] 6.1 10*3/uL Normal 4.4-11.0 [facility] Comment on above: Order Comment: 105.2 Performed By: #### L 500.4050, L501.5200, L100.0100 ####[facility] [address] [place], [address] Carbon dioxide, total [Moles /volume] in Central venous bloodOrdered By: Shari Hurd on 07-31-2024 CO2 [Moles/Vol] 26.0 mmol/L 21.0-32.0 [facility] Chloride assayOrdered By: Thai Hurd on 07-31-2024 Chloride [Moles/Vol] 101 mmol/L 98-108 [facility] Comprehensive Metabolic Prof ilon 07-31-2024 Albumin [Mass/Vol] 3.0 g/dL Low 3.4-4.8 [facility] Comment on above: Order Comment: 105.2 Performed By: #### L 500.4050, L501.5200, L100.0100 ####[facility] [address] [place], [address] Albumin/Globulin [Mass ratio] 0.8 {ratio} Low 0.9-2.4 [facility] Comment on above: Order Comment: 105.2 Performed By: #### L 500.4050, L501.5200, L100.0100 ####[facility] [address] [place], [address] ALK PHOS 74 U/L Normal 40-129 [facility] Comment on above: Order Comment: 105.2 Performed By: #### L 500.4050, L501.5200, L100.0100 ####[facility] [address] [place], [address] ALT [Catalytic activity/Vol] U/L Normal <=46 [facility] Comment on above: Order Comment: 105.2 Performed By: #### L 500.4050, L501.5200, L100.0100 ####[facility] [address] [place], [address] AST [Catalytic activity/Vol] 15 U/L Normal <=37 [facility] Comment on above: Order Comment: 105.2 Performed By: #### L 500.4050, L501.5200, L100.0100 ####[facility] [address] [place], [address] Bilirubin [Mass/Vol] 0.25 mg/dL Normal 0.00-1.30 [facility] Comment on above: Order Comment: 105.2 Performed By: #### L 500.4050, L501.5200, L100.0100 ####[facility] [address] [place], [address] BUN/CRE 6.8 RATIO Low 10-20 [facility] Comment on above: Order Comment: 105.2 Performed By: #### L 500.4050, L501.5200, L100.0100 ####[facility] [address] [place], [address] Calcium [Mass/Vol] 8.8 mg/dL Normal 7.6-11.0 [facility] Comment on above: Order Comment: 105.2 Performed By: #### L 500.4050, L501.5200, L100.0100 ####[facility] [address] [place], [address] Chloride [Moles/Vol] 101 mmol/L Normal 98-108 [facility] Comment on above: Order Comment: 105.2 Performed By: #### L 500.4050, L501.5200, L100.0100 ####[facility] [address] [place], [address] CO2 [Moles/Vol] 26.0 mmol/L Normal 21.0-32.0 [facility] Comment on above: Order Comment: 105.2 Performed By: #### L 500.4050, L501.5200, L100.0100 ####[facility] [address] [place], [address] Creatinine [Mass/Vol] 2.06 mg/dL High 0.70-1.20 [facility] Comment on above: Order Comment: 105.2 Performed By: #### L 500.4050, L501.5200, L100.0100 ####[facility] [address] [place], [address] GAP 10 Normal 5-15 [facility] Comment on above: Order Comment: 105.2 Performed By: #### L 500.4050, L501.5200, L100.0100 ####[facility] [address] [place], [address] GFR/1.73 sq M.predicted among non-blacks MDRD (S/P/Bld) [Vol rate/Area] 33 mL/min/{1.73_m2} Low >60 [facility] Comment on above: Order Comment: 105.2 Result Comment: mL/m in/1.73m2 CKD-EPI Creatinine Equation (2020) Performed By: #### L 500.4050, L501.5200, L100.0100 ####[facility] [address] [place], [address] Globulin (S) [Mass/Vol] 3.6 g/dL Normal 2.2-4.2 [facility] Comment on above: Order Comment: 105.2 Performed By: #### L 500.4050, L501.5200, L100.0100 ####[facility] [address] [place], [address] Glucose [Mass/Vol] 99 mg/dL Normal 70-99 [facility] Comment on above: Order Comment: 105.2 Performed By: #### L 500.4050, L501.5200, L100.0100 ####[facility] [address] [place], [address] Potassium [Moles/Vol] 3.8 mmol/L Normal 3.3-5.1 [facility] Comment on above: Order Comment: 105.2 Performed By: #### L 500.4050, L501.5200, L100.0100 ####[facility] [address] [place], [address] Sodium [Moles/Vol] 137 mmol/L Normal 133-145 [facility] Comment on above: Order Comment: 105.2 Performed By: #### L 500.4050, L501.5200, L100.0100 ####[facility] [address] [place], [address] T PROT 6.6 g/dL Normal 5.9-8.4 [facility] Comment on above: Order Comment: 105.2 Performed By: #### L 500.4050, L501.5200, L100.0100 ####[facility] [address] [place], [address] Urea nitrogen [Mass/Vol] 14 mg/dL Normal 4-19 [facility] Comment on above: Order Comment: 105.2 Performed By: #### L 500.4050, L501.5200, L100.0100 ####[facility] [address] [place], [address] Eosinophil percentageOrdered By: Shari Hurd on 07-31-2024 Eosinophils/100 WBC (Bld) 2.9 % 0-5 [facility] Erythrocyte distribution wid th ratioOrdered By: Sharitoni Hurd on 07-31-2024 Erythrocyte distribution width (RBC) [Ratio] 17.9 % High 11.6-14.6 [facility] Erythrocyte distribution wid th standard deviationOrdered By: Sharitoni Hurd on 07-31-2024 Erythrocyte distribution width (RBC) [Ratio] 60.6 fl High 35.1-43.9 [facility] Glomerular filtration rate ( GFR) estimation/1.73 sq m using serum, plasma, or whole bOrdered By: Sharitoni Hurd on 07-31-2024 GFR/1.73 sq M.predicted among non-blacks MDRD (S/P/Bld) [Vol rate/Area] 33 mL/min/{1.73_m2} Low >60 [facility] Comment on above: mL/min/1.73m2 CKD-EP I Creatinine Equation (2020) Hematocrit Auto (Bld) [Volum e fraction]Ordered By: Sharitoni Hurd on 07-31-2024 Hematocrit (Bld) [Volume fraction] 31.0 % Low 40-54 [facility] Hemoglobin measurementOrdere d By: Shari Hurd on 07-31-2024 Hemoglobin (Bld) [Mass/Vol] 9.8 g/dL Low 13.0-16.5 [facility] Immature granulocytes/100 WB C Auto (Bld)Ordered By: Shari Hurd on 07-31-2024 Immature granulocytes/100 WBC (Bld) 1.000 % High 0.0-0.9 [facility] Comment on above: IG% - Immature Granu locytes (promyelocytes, myelocytes and metamyelocytes) > 1% indicates that a LEFT SHIFT is Present. Laboratory - Chemistry and C hemistry - challengeOrdered By: Shari Hurd on 07-31-2024 AST [Catalytic activity/Vol] 15 U/L <38 [facility] MCV (mean corpuscular volume ) determinationOrdered By: Shari Hurd on 07-31-2024 MCV (RBC) [Entitic vol] 93.9 fL 80-94 [facility] Magnesiumon 07-31-2024 Magnesium [Mass/Vol] 1.7 mg/dL Normal 1.5-2.2 [facility] Comment on above: Order Comment: 105.2 Performed By: #### L 500.4050, L501.5200, L100.0100 ####[facility] [address] [place], [address] Magnesium measurement (mass/ volume)Ordered By: Shari Hurd on 07-31-2024 Magnesium (Unsp spec) [Mass/Vol] 1.7 mg/dL 1.5-2.2 [facility] Mean corpuscular hemoglobin (MCH) determinationOrdered By: Shari Hurd on 07-31-2024 MCH (RBC) [Entitic mass] 29.7 pg 27.0-32.0 [facility] Mean corpuscular hemoglobin concentration (MCHC) determinationOrdered By: Shari Hurd on 07-31-2024 MCHC (RBC) [Mass/Vol] 31.6 g/dL Low 32-36 [facility] Mean platelet volume determi nationOrdered By: Shari Hurd on 07-31-2024 Platelet mean volume (Bld) [Entitic vol] 11.5 fL 6.2-12.0 [facility] Monocyte percentageOrdered B y: Shari Hurd on 07-31-2024 Monocytes/100 WBC (Bld) 7.8 % 0-10 [facility] Neutrophil percentageOrdered By: Shari Hurd on 07-31-2024 Neutrophils/100 WBC (Bld) 65.3 % 47-70 [facility] No Panel InformationOrdered By: Shari Hurd on 07-31-2024 15 U/L <38 [facility] Nucleated red blood cell per centageOrdered By: Shari Hurd on 07-31-2024 Nucleated RBC/100 WBC (Bld) [Ratio] 0 % 0-5 [facility] Platelet countOrdered By: Thai Hurd on 07-31-2024 Platelets (Bld) [#/Vol] 159 10*3/uL 150-450 [facility] Potassium measurement (mass/ volume)Ordered By: Shari Hurd on 07-31-2024 Potassium (Unsp spec) [Mass/Vol] 3.8 mmol/L 3.3-5.1 [facility] RBC Auto (Bld) [#/Vol]Ordere d By: Shari Hurd on 07-31-2024 RBC (Bld) [#/Vol] 3.30 10*6/uL Low 4.6-6.2 [facility] Serum creatinine measurement (mass/volume)Ordered By: Shari Hurd on 07-31-2024 Creatinine [Mass/Vol] 2.06 mg/dL High 0.70-1.20 [facility] Serum globulin measurementOr dered By: Shari Hurd on 07-31-2024 Globulin (S) [Mass/Vol] 3.6 g/dL 2.2-4.2 [facility] Serum glucose measurement (m ass/volume)Ordered By: Shari Hurd on 07-31-2024 Glucose [Mass/Vol] 99 mg/dL 70-99 [facility] Serum or plasma alanine mancia otransferase (ALT) measurementOrdered By: Shari Hurd on 07-31-2024 ALT [Catalytic activity/Vol] U/L <47 [facility] Serum or plasma albumin camille urement (mass/volume)Ordered By: Shari Hurd on 07-31-2024 Albumin [Mass/Vol] 3.0 g/dL Low 3.4-4.8 [facility] Serum or plasma albumin/glob ulin mass ratioOrdered By: Shari Hurd on 07-31-2024 Albumin/Globulin [Mass ratio] 0.8 {ratio} Low 0.9-2.4 [facility] Serum or plasma alkaline milton sphatase measurementOrdered By: Shari Hurd on 07-31-2024 ALP [Catalytic activity/Vol] 74 U/L 40-129 [facility] Serum or plasma calcium camille urement (mass/volume)Ordered By: Shari Hurd on 07-31-2024 Calcium [Mass/Vol] 8.8 mg/dL 7.6-11.0 [facility] Serum or plasma urea nitroge n measurement (mass/volume)Ordered By: Shari Hurd on 07-31-2024 Urea nitrogen [Mass/Vol] 14 mg/dL 4-19 [facility] Sodium levelOrdered By: Sarahy Hurd on 07-31-2024 Sodium [Moles/Vol] 137 mmol/L 133-145 [facility] Total proteinOrdered By: Thomas Hurd on 07-31-2024 Protein [Mass/Vol] 6.6 g/dL 5.9-8.4 [facility] White blood cell (WBC) count Ordered By: Shari Hurd on 07-31-2024 WBC (Bld) [#/Vol] 6.1 10*3/uL 4.4-11.0 [facility] Anion gap in Serum or Plasma Ordered By: Shari Hurd on 07-28-2024 Anion gap [Moles/Vol] 10 mmol/L 5- [facility] BUN/creatinine ratioOrdered By: Shari Hurd on 07-28-2024 Urea nitrogen/Creatinine [Mass ratio] 8.9 mg/mg Low 10- [facility] Basic Metabolic Profile (BMP )on 07-28-2024 BUN/CRE 8.9 RATIO Low 10- [facility] Comment on above: Order Comment: 105-2 Performed By: #### L 100.0500, L500.2500 ####[facility] [address] [place], [address] Calcium [Mass/Vol] 8.5 mg/dL Normal 7.6-11.0 [facility] Comment on above: Order Comment: 105-2 Performed By: #### L 100.0500, L500.2500 ####[facility] [address] [place], [address] Chloride [Moles/Vol] 105 mmol/L Normal 98-108 [facility] Comment on above: Order Comment: 105-2 Performed By: #### L 100.0500, L500.2500 ####[facility] [address] [place], [address] CO2 [Moles/Vol] 23.9 mmol/L Normal 21.0-32.0 [facility] Comment on above: Order Comment: 105-2 Performed By: #### L 100.0500, L500.2500 ####[facility] [address] [place], [address] Creatinine [Mass/Vol] 2.19 mg/dL High 0.70-1.20 [facility] Comment on above: Order Comment: 105-2 Performed By: #### L 100.0500, L500.2500 ####[facility] [address] [place], [address] GAP 10 Normal 5-15 [facility] Comment on above: Order Comment: 105-2 Performed By: #### L 100.0500, L500.2500 ####[facility] [address] [place], [address] GFR/1.73 sq M.predicted among non-blacks MDRD (S/P/Bld) [Vol rate/Area] 31 mL/min/{1.73_m2} Low >60 [facility] Comment on above: Order Comment: 105-2 Result Comment: mL/m in/1.73m2 CKD-EPI Creatinine Equation (2020) Performed By: #### L 100.0500, L500.2500 ####[facility] [address] [place], [address] Glucose [Mass/Vol] 96 mg/dL Normal 70-99 [facility] Comment on above: Order Comment: 105-2 Performed By: #### L 100.0500, L500.2500 ####[facility] [address] [place], [address] Potassium [Moles/Vol] 3.8 mmol/L Normal 3.3-5.1 [facility] Comment on above: Order Comment: 105-2 Performed By: #### L 100.0500, L500.2500 ####[facility] [address] [place], [address] Sodium [Moles/Vol] 139 mmol/L Normal 133-145 [facility] Comment on above: Order Comment: 105-2 Performed By: #### L 100.0500, L500.2500 ####[facility] [address] [place], [address] Urea nitrogen [Mass/Vol] 20 mg/dL High 4-19 [facility] Comment on above: Order Comment: 105-2 Performed By: #### L 100.0500, L500.2500 ####[facility] [address] [place], [address] CBC-Complete Blood Cnt No Di ffon 07-28-2024 Erythrocyte distribution width (RBC) [Ratio] 17.8 % High 11.6-14.6 [facility] Comment on above: Order Comment: 105-2 Performed By: #### L 100.0500, L500.2500 ####[facility] [address] [place], [address] Hematocrit (Bld) [Volume fraction] 29.5 % Low 40-54 [facility] Comment on above: Order Comment: 105-2 Performed By: #### L 100.0500, L500.2500 ####[facility] [address] [place], [address] Hemoglobin (Bld) [Mass/Vol] 9.3 g/dL Low 13.0-16.5 [facility] Comment on above: Order Comment: 105-2 Performed By: #### L 100.0500, L500.2500 ####[facility] [address] [place], [address] MCH (RBC) [Entitic mass] 30.0 pg Normal 27.0-32.0 [facility] Comment on above: Order Comment: 105-2 Performed By: #### L 100.0500, L500.2500 ####[facility] [address] [place], [address] MCHC (RBC) [Mass/Vol] 31.5 g/dL Low 32-36 [facility] Comment on above: Order Comment: 105-2 Performed By: #### L 100.0500, L500.2500 ####[facility] [address] [place], [address] MCV (RBC) [Entitic vol] 95.2 fL High 80-94 [facility] Comment on above: Order Comment: 105-2 Performed By: #### L 100.0500, L500.2500 ####[facility] [address] [place], [address] Platelet mean volume (Bld) [Entitic vol] 12.2 fL High 6.2-12.0 [facility] Comment on above: Order Comment: 105-2 Performed By: #### L 100.0500, L500.2500 ####[facility] [address] [place], [address] Platelets (Bld) [#/Vol] 123 10*3/uL Low 150-450 [facility] Comment on above: Order Comment: 105-2 Performed By: #### L 100.0500, L500.2500 ####[facility] [address] [place], [address] RBC (Bld) [#/Vol] 3.10 10*6/uL Low 4.6-6.2 [facility] Comment on above: Order Comment: 105-2 Performed By: #### L 100.0500, L500.2500 ####[facility] [address] [place], [address] RDW SD 61.3 fl High 35.1-43.9 [facility] Comment on above: Order Comment: 105-2 Performed By: #### L 100.0500, L500.2500 ####[facility] [address] [place], [address] WBC (Bld) [#/Vol] 3.8 10*3/uL Low 4.4-11.0 [facility] Comment on above: Order Comment: 105-2 Performed By: #### L 100.0500, L500.2500 ####[facility] [address] [place], [address] Carbon dioxide, total [Moles /volume] in Central venous bloodOrdered By: Shari Hurd on 07-28-2024 CO2 [Moles/Vol] 23.9 mmol/L 21.0-32.0 [facility] Chloride assayOrdered By: Thai Hurd on 07-28-2024 Chloride [Moles/Vol] 105 mmol/L 98-108 [facility] Erythrocyte distribution wid th ratioOrdered By: Shari Hurd on 07-28-2024 Erythrocyte distribution width (RBC) [Ratio] 17.8 % High 11.6-14.6 [facility] Erythrocyte distribution wid th standard deviationOrdered By: Shari Hurd on 07-28-2024 Erythrocyte distribution width (RBC) [Ratio] 61.3 fl High 35.1-43.9 [facility] Glomerular filtration rate ( GFR) estimation/1.73 sq m using serum, plasma, or whole bOrdered By: Shari Hurd on 07-28-2024 GFR/1.73 sq M.predicted among non-blacks MDRD (S/P/Bld) [Vol rate/Area] 31 mL/min/{1.73_m2} Low >60 [facility] Comment on above: mL/min/1.73m2 CKD-EP I Creatinine Equation (2020) Hematocrit Auto (Bld) [Volum e fraction]Ordered By: Shari Hurd on 07-28-2024 Hematocrit (Bld) [Volume fraction] 29.5 % Low 40-54 [facility] Hemoglobin measurementOrdere d By: Shari Hurd on 07-28-2024 Hemoglobin (Bld) [Mass/Vol] 9.3 g/dL Low 13.0-16.5 [facility] MCV (mean corpuscular volume ) determinationOrdered By: Shari Hurd on 07-28-2024 MCV (RBC) [Entitic vol] 95.2 fL High 80-94 [facility] Mean corpuscular hemoglobin (MCH) determinationOrdered By: Shari Hurd on 07-28-2024 MCH (RBC) [Entitic mass] 30.0 pg 27.0-32.0 [facility] Mean corpuscular hemoglobin concentration (MCHC) determinationOrdered By: Shari Hurd on 07-28-2024 MCHC (RBC) [Mass/Vol] 31.5 g/dL Low 32-36 [facility] Mean platelet volume determi nationOrdered By: Shari Hurd on 07-28-2024 Platelet mean volume (Bld) [Entitic vol] 12.2 fL High 6.2-12.0 [facility] Platelet countOrdered By: Thai Hurd on 07-28-2024 Platelets (Bld) [#/Vol] 123 10*3/uL Low 150-450 [facility] Potassium measurement (mass/ volume)Ordered By: Shari Hurd on 07-28-2024 Potassium (Unsp spec) [Mass/Vol] 3.8 mmol/L 3.3-5.1 [facility] RBC Auto (Bld) [#/Vol]Ordere d By: Shari Hurd on 07-28-2024 RBC (Bld) [#/Vol] 3.10 10*6/uL Low 4.6-6.2 [facility] Serum creatinine measurement (mass/volume)Ordered By: Shari Hurd on 07-28-2024 Creatinine [Mass/Vol] 2.19 mg/dL High 0.70-1.20 [facility] Serum glucose measurement (m ass/volume)Ordered By: Shari Hurd on 07-28-2024 Glucose [Mass/Vol] 96 mg/dL 70-99 [facility] Serum or plasma calcium camille urement (mass/volume)Ordered By: Shari Hurd on 07-28-2024 Calcium [Mass/Vol] 8.5 mg/dL 7.6-11.0 [facility] Serum or plasma urea nitroge n measurement (mass/volume)Ordered By: Shari Hurd on 07-28-2024 Urea nitrogen [Mass/Vol] 20 mg/dL High 4-19 [facility] Sodium levelOrdered By: Sarahy Hurd on 07-28-2024 Sodium [Moles/Vol] 139 mmol/L 133-145 [facility] White blood cell (WBC) count Ordered By: Shari Hurd on 07-28-2024 WBC (Bld) [#/Vol] 3.8 10*3/uL Low 4.4-11.0 [facility] Absolute lymphocyte countOrd ered By: Shari Hurd on 07-24-2024 Lymphocytes Auto (Unsp spec) [#/Vol] 1.05 10*3/uL 0.83-4.51 [facility] Absolute neutrophil countOrd ered By: Shari Hurd on 07-24-2024 Neutrophils (Bld) [#/Vol] 8.1 10*3/uL High 2.0-7.7 [facility] Anion gap in Serum or Plasma Ordered By: Shari Hurd on 07-24-2024 Anion gap [Moles/Vol] 12 mmol/L 5-15 [facility] Automated lymphocyte count a s percentage of total leukocytesOrdered By: Shari Hurd on 07-24-2024 Lymphocytes/100 WBC Auto (Unsp spec) 9.8 % Low 19-41 [facility] BUN/creatinine ratioOrdered By: Shari Hurd on 07-24-2024 Urea nitrogen/Creatinine [Mass ratio] 9.1 mg/mg Low 10-20 [facility] Basophil percentageOrdered B y: Shari Hurd on 07-24-2024 Basophils/100 WBC (Bld) 0.4 % 0-1 [facility] Bilirubin, totalOrdered By: Shari Hurd on 07-24-2024 Bilirubin [Mass/Vol] 0.64 mg/dL 0.00-1.30 [facility] CBC W/Diff, Automatedon 04-2 Absolute Lymph 1.05 X10 3/uL Normal 0.83-4.51 [facility] Comment on above: Order Comment: 105.2 Performed By: #### L 501.5200, L100.0100, L500.4050 ####[facility] [address] [place], [address] Absolute Neut 8.1 X10 3/uL High 2.0-7.7 [facility] Comment on above: Order Comment: 105.2 Performed By: #### L 501.5200, L100.0100, L500.4050 ####[facility] [address] [place], [address] Basophils/100 WBC (Bld) 0.4 % Normal 0-1 [facility] Comment on above: Order Comment: 105.2 Performed By: #### L 501.5200, L100.0100, L500.4050 ####[facility] [address] [place], [address] Eosinophils/100 WBC (Bld) 1.7 % Normal 0-5 [facility] Comment on above: Order Comment: 105.2 Performed By: #### L 501.5200, L100.0100, L500.4050 ####[facility] [address] [place], [address] Erythrocyte distribution width (RBC) [Ratio] 18.8 % High 11.6-14.6 [facility] Comment on above: Order Comment: 105.2 Performed By: #### L 501.5200, L100.0100, L500.4050 ####[facility] [address] [place], [address] Hematocrit (Bld) [Volume fraction] 28.3 % Low 40-54 [facility] Comment on above: Order Comment: 105.2 Performed By: #### L 501.5200, L100.0100, L500.4050 ####[facility] [address] [place], [address] Hemoglobin (Bld) [Mass/Vol] 8.8 g/dL Low 13.0-16.5 [facility] Comment on above: Order Comment: 105.2 Performed By: #### L 501.5200, L100.0100, L500.4050 ####[facility] [address] [place], [address] IG% 2.300 High 0.0-0.9 [facility] Comment on above: Order Comment: 105.2 Result Comment: IG% - Immature Granulocytes (promyelocytes, myelocytes andmetamyelocytes) > 1% indicates that a LEFT SHIFT is Present. Performed By: #### L 501.5200, L100.0100, L500.4050 ####[facility] [address] [place], [address] Lymphocytes/100 WBC (Bld) 9.8 % Low 19-41 [facility] Comment on above: Order Comment: 105.2 Performed By: #### L 501.5200, L100.0100, L500.4050 ####[facility] [address] [place], [address] MCH (RBC) [Entitic mass] 29.9 pg Normal 27.0-32.0 [facility] Comment on above: Order Comment: 105.2 Performed By: #### L 501.5200, L100.0100, L500.4050 ####[facility] [address] [place], [address] MCHC (RBC) [Mass/Vol] 31.1 g/dL Low 32-36 [facility] Comment on above: Order Comment: 105.2 Performed By: #### L 501.5200, L100.0100, L500.4050 ####[facility] [address] [place], [address] MCV (RBC) [Entitic vol] 96.3 fL High 80-94 [facility] Comment on above: Order Comment: 105.2 Performed By: #### L 501.5200, L100.0100, L500.4050 ####[facility] [address] [place], [address] Monocytes/100 WBC (Bld) 10.0 % Normal 0-10 [facility] Comment on above: Order Comment: 105.2 Performed By: #### L 501.5200, L100.0100, L500.4050 ####[facility] [address] [place], [address] Neutrophils/100 WBC (Bld) 75.8 % High 47-70 [facility] Comment on above: Order Comment: 105.2 Performed By: #### L 501.5200, L100.0100, L500.4050 ####[facility] [address] [place], [address] Nucleated RBC (Bld) [#/Vol] 0.2 10*3/uL Normal 0-5 [facility] Comment on above: Order Comment: 105.2 Performed By: #### L 501.5200, L100.0100, L500.4050 ####[facility] [address] [place], [address] Platelet mean volume (Bld) [Entitic vol] 12.6 fL High 6.2-12.0 [facility] Comment on above: Order Comment: 105.2 Performed By: #### L 501.5200, L100.0100, L500.4050 ####[facility] [address] [place], [address] Platelets (Bld) [#/Vol] 191 10*3/uL Normal 150-450 [facility] Comment on above: Order Comment: 105.2 Performed By: #### L 501.5200, L100.0100, L500.4050 ####[facility] [address] [place], [address] RBC (Bld) [#/Vol] 2.94 10*6/uL Low 4.6-6.2 [facility] Comment on above: Order Comment: 105.2 Performed By: #### L 501.5200, L100.0100, L500.4050 ####[facility] [address] [place], [address] RDW SD 63.0 fl High 35.1-43.9 [facility] Comment on above: Order Comment: 105.2 Performed By: #### L 501.5200, L100.0100, L500.4050 ####[facility] [address] [place], [address] WBC (Bld) [#/Vol] 10.7 10*3/uL Normal 4.4-11.0 [facility] Comment on above: Order Comment: 105.2 Performed By: #### L 501.5200, L100.0100, L500.4050 ####[facility] [address] [place], [address] Carbon dioxide, total [Moles /volume] in Central venous bloodOrdered By: Shari Hurd on 07-24-2024 CO2 [Moles/Vol] 20.4 mmol/L Low 21.0-32.0 [facility] Chloride assayOrdered By: Thai Hurd on 07-24-2024 Chloride [Moles/Vol] 108 mmol/L 98-108 [facility] Comprehensive Metabolic Prof ilon 07-24-2024 Albumin [Mass/Vol] 2.9 g/dL Low 3.4-4.8 [facility] Comment on above: Order Comment: 105.2 Performed By: #### L 501.5200, L100.0100, L500.4050 ####[facility] [address] [place], [address] Albumin/Globulin [Mass ratio] 0.9 {ratio} Normal 0.9-2.4 [facility] Comment on above: Order Comment: 105.2 Performed By: #### L 501.5200, L100.0100, L500.4050 ####[facility] [address] [place], [address] ALK PHOS 61 U/L Normal 40-129 [facility] Comment on above: Order Comment: 105.2 Performed By: #### L 501.5200, L100.0100, L500.4050 ####[facility] [address] [place], [address] ALT [Catalytic activity/Vol] 6 U/L Normal <=46 [facility] Comment on above: Order Comment: 105.2 Performed By: #### L 501.5200, L100.0100, L500.4050 ####[facility] [address] [place], [address] AST [Catalytic activity/Vol] 17 U/L Normal <=37 [facility] Comment on above: Order Comment: 105.2 Performed By: #### L 501.5200, L100.0100, L500.4050 ####[facility] [address] [place], [address] Bilirubin [Mass/Vol] 0.64 mg/dL Normal 0.00-1.30 [facility] Comment on above: Order Comment: 105.2 Performed By: #### L 501.5200, L100.0100, L500.4050 ####[facility] [address] [place], [address] BUN/CRE 9.1 RATIO Low 10-20 [facility] Comment on above: Order Comment: 105.2 Performed By: #### L 501.5200, L100.0100, L500.4050 ####[facility] [address] [place], [address] Calcium [Mass/Vol] 8.5 mg/dL Normal 7.6-11.0 [facility] Comment on above: Order Comment: 105.2 Performed By: #### L 501.5200, L100.0100, L500.4050 ####[facility] [address] [place], [address] Chloride [Moles/Vol] 108 mmol/L Normal 98-108 [facility] Comment on above: Order Comment: 105.2 Performed By: #### L 501.5200, L100.0100, L500.4050 ####[facility] [address] [place], [address] CO2 [Moles/Vol] 20.4 mmol/L Low 21.0-32.0 [facility] Comment on above: Order Comment: 105.2 Performed By: #### L 501.5200, L100.0100, L500.4050 ####[facility] [address] [place], [address] Creatinine [Mass/Vol] 2.05 mg/dL High 0.70-1.20 [facility] Comment on above: Order Comment: 105.2 Performed By: #### L 501.5200, L100.0100, L500.4050 ####[facility] [address] [place], [address] GAP 12 Normal 5-15 [facility] Comment on above: Order Comment: 105.2 Performed By: #### L 501.5200, L100.0100, L500.4050 ####[facility] [address] [place], [address] GFR/1.73 sq M.predicted among non-blacks MDRD (S/P/Bld) [Vol rate/Area] 33 mL/min/{1.73_m2} Low >60 [facility] Comment on above: Order Comment: 105.2 Result Comment: mL/m in/1.73m2 CKD-EPI Creatinine Equation (2020) Performed By: #### L 501.5200, L100.0100, L500.4050 ####[facility] [address] [place], [address] Globulin (S) [Mass/Vol] 3.1 g/dL Normal 2.2-4.2 [facility] Comment on above: Order Comment: 105.2 Performed By: #### L 501.5200, L100.0100, L500.4050 ####[facility] [address] [place], [address] Glucose [Mass/Vol] 135 mg/dL High 70-99 [facility] Comment on above: Order Comment: 105.2 Performed By: #### L 501.5200, L100.0100, L500.4050 ####[facility] [address] [place], [address] Potassium [Moles/Vol] 4.1 mmol/L Normal 3.3-5.1 [facility] Comment on above: Order Comment: 105.2 Performed By: #### L 501.5200, L100.0100, L500.4050 ####[facility] [address] [place], [address] Sodium [Moles/Vol] 140 mmol/L Normal 133-145 [facility] Comment on above: Order Comment: 105.2 Performed By: #### L 501.5200, L100.0100, L500.4050 ####[facility] [address] [place], [address] T PROT 6.0 g/dL Normal 5.9-8.4 [facility] Comment on above: Order Comment: 105.2 Performed By: #### L 501.5200, L100.0100, L500.4050 ####[facility] [address] [place], [place], [address] Urea nitrogen [Mass/Vol] 19 mg/dL Normal 4-19 [facility] Comment on above: Order Comment: 105.2 Performed By: #### L 501.5200, L100.0100, L500.4050 ####[facility] [address] [place], [address] Eosinophil percentageOrdered By: Shari Hurd on 07-24-2024 Eosinophils/100 WBC (Bld) 1.7 % 0-5 [facility] Erythrocyte distribution wid th ratioOrdered By: Shari Hurd on 07-24-2024 Erythrocyte distribution width (RBC) [Ratio] 18.8 % High 11.6-14.6 [facility] Erythrocyte distribution wid th standard deviationOrdered By: Shari Hurd on 07-24-2024 Erythrocyte distribution width (RBC) [Ratio] 63.0 fl High 35.1-43.9 [facility] Glomerular filtration rate ( GFR) estimation/1.73 sq m using serum, plasma, or whole bOrdered By: Shari Hurd on 07-24-2024 GFR/1.73 sq M.predicted among non-blacks MDRD (S/P/Bld) [Vol rate/Area] 33 mL/min/{1.73_m2} Low >60 [facility] Comment on above: mL/min/1.73m2 CKD-EP I Creatinine Equation (2020) Hematocrit Auto (Bld) [Volum e fraction]Ordered By: Shari Hurd on 07-24-2024 Hematocrit (Bld) [Volume fraction] 28.3 % Low 40-54 [facility] Hemoglobin measurementOrdere d By: Shari Hurd on 07-24-2024 Hemoglobin (Bld) [Mass/Vol] 8.8 g/dL Low 13.0-16.5 [facility] Immature granulocytes/100 WB C Auto (Bld)Ordered By: Shari Hurd on 07-24-2024 Immature granulocytes/100 WBC (Bld) 2.300 % High 0.0-0.9 [facility] Comment on above: IG% - Immature Granu locytes (promyelocytes, myelocytes and metamyelocytes) > 1% indicates that a LEFT SHIFT is Present. Laboratory - Chemistry and C hemistry - challengeOrdered By: Shari Hurd on 07-24-2024 AST [Catalytic activity/Vol] 17 U/L <38 [facility] MCV (mean corpuscular volume ) determinationOrdered By: Shari Hurd on 07-24-2024 MCV (RBC) [Entitic vol] 96.3 fL High 80-94 [facility] Magnesiumon 07-24-2024 Magnesium [Mass/Vol] 1.7 mg/dL Normal 1.5-2.2 [facility] Comment on above: Order Comment: 105.2 Performed By: #### L 501.5200, L100.0100, L500.4050 ####[facility] [address] [place], [address] Magnesium measurement (mass/ volume)Ordered By: Shari Hurd on 07-24-2024 Magnesium (Unsp spec) [Mass/Vol] 1.7 mg/dL 1.5-2.2 [facility] Mean corpuscular hemoglobin (MCH) determinationOrdered By: Shari Hurd on 07-24-2024 MCH (RBC) [Entitic mass] 29.9 pg 27.0-32.0 [facility] Mean corpuscular hemoglobin concentration (MCHC) determinationOrdered By: Shari Hurd on 07-24-2024 MCHC (RBC) [Mass/Vol] 31.1 g/dL Low 32-36 [facility] Mean platelet volume determi nationOrdered By: Shari Hurd on 07-24-2024 Platelet mean volume (Bld) [Entitic vol] 12.6 fL High 6.2-12.0 [facility] Monocyte percentageOrdered B y: Shari Hurd on 07-24-2024 Monocytes/100 WBC (Bld) 10.0 % 0-10 [facility] Neutrophil percentageOrdered By: Shari Hurd on 07-24-2024 Neutrophils/100 WBC (Bld) 75.8 % High 47-70 [facility] No Panel InformationOrdered By: Shari Hurd on 07-24-2024 17 U/L <38 [facility] Nucleated red blood cell per centageOrdered By: Shari Hurd on 07-24-2024 Nucleated RBC/100 WBC (Bld) [Ratio] 0.2 % 0-5 [facility] Platelet countOrdered By: Thai Hurd on 07-24-2024 Platelets (Bld) [#/Vol] 191 10*3/uL 150-450 [facility] Potassium measurement (mass/ volume)Ordered By: Shari Hurd on 07-24-2024 Potassium (Unsp spec) [Mass/Vol] 4.1 mmol/L 3.3-5.1 [facility] RBC Auto (Bld) [#/Vol]Ordere d By: Shari Hurd on 07-24-2024 RBC (Bld) [#/Vol] 2.94 10*6/uL Low 4.6-6.2 [facility] Serum creatinine measurement (mass/volume)Ordered By: Shari Hurd on 07-24-2024 Creatinine [Mass/Vol] 2.05 mg/dL High 0.70-1.20 [facility] Serum globulin measurementOr dered By: Shari Hurd on 07-24-2024 Globulin (S) [Mass/Vol] 3.1 g/dL 2.2-4.2 [facility] Serum glucose measurement (m ass/volume)Ordered By: Shari Hurd on 07-24-2024 Glucose [Mass/Vol] 135 mg/dL High 70-99 [facility] Serum or plasma alanine mancia otransferase (ALT) measurementOrdered By: Shari Hurd on 07-24-2024 ALT [Catalytic activity/Vol] 6 U/L <47 [facility] Serum or plasma albumin camille urement (mass/volume)Ordered By: Shari Hurd on 07-24-2024 Albumin [Mass/Vol] 2.9 g/dL Low 3.4-4.8 [facility] Serum or plasma albumin/glob ulin mass ratioOrdered By: Shari Hurd on 07-24-2024 Albumin/Globulin [Mass ratio] 0.9 {ratio} 0.9-2.4 [facility] Serum or plasma alkaline milton sphatase measurementOrdered By: Shari Vannessa on 07-24-2024 ALP [Catalytic activity/Vol] 61 U/L 40-129 [facility] Serum or plasma calcium camille urement (mass/volume)Ordered By: Sharitoni Hurd on 07-24-2024 Calcium [Mass/Vol] 8.5 mg/dL 7.6-11.0 [facility] Serum or plasma urea nitroge n measurement (mass/volume)Ordered By: Shari Hurd on 07-24-2024 Urea nitrogen [Mass/Vol] 19 mg/dL 4-19 [facility] Sodium levelOrdered By: Sarahy Hurd on 07-24-2024 Sodium [Moles/Vol] 140 mmol/L 133-145 [facility] Total proteinOrdered By: Thomas Hurd on 07-24-2024 Protein [Mass/Vol] 6.0 g/dL 5.9-8.4 [facility] White blood cell (WBC) count Ordered By: Shari Hurd on 07-24-2024 WBC (Bld) [#/Vol] 10.7 10*3/uL 4.4-11.0 [facility] CBC W/Diff, Automatedon 06-28 PATH REV Reviewed Normal [facility] Comment on above: Result Comment: MILD LEUKOCYTOSIS WITH LEFT-SHIFTED GRANULOCYTOSIS.MACROCYTIC HYPOCHROMIC ANEMIA WITH MODERATE ANISOCYTOSIS.ADEQUATE PLATELETS.Melisa Shelby MD 07/21/2024 AMENDED REPORT 07/21/24 1128 PATH REV previously reported as: July Performed By: #### L 500.2500, L100.0100 ####[facility] [address] [place], [place], [id number] Absolute lymphocyte countOrd ered By: Miguel Ortiz on 07-20-2024 Lymphocytes Auto (Unsp spec) [#/Vol] 0.90 10*3/uL 0.83-4.51 [facility] Absolute neutrophil countOrd ered By: Miguel Ortiz on 07-20-2024 Neutrophils (Bld) [#/Vol] 8.9 10*3/uL High 2.0-7.7 [facility] Anion gap in Serum or Plasma Ordered By: Miguel Ortiz on 07-20-2024 Anion gap [Moles/Vol] 8 mmol/L 5-15 [facility] BRCon 07-20-2024 RC Normal [facility] Comment on above: Result Comment: [id number] OP RC TRANSFUSED 07/20/24 1130 Performed By: #### B RC, BTS ####[facility] [address] [place], [address] BUN/creatinine ratioOrdered By: Miguel Ortiz on 07-20-2024 Urea nitrogen/Creatinine [Mass ratio] 11.5 mg/mg 10-20 [facility] Basic Metabolic Profile (BMP )on 07-20-2024 BUN/CRE 11.5 RATIO Normal - [facility] Comment on above: Performed By: #### L 500.2500, L100.0100 ####[facility] [address] [place], [address] Calcium [Mass/Vol] 8.5 mg/dL Normal 7.6-11.0 [facility] Comment on above: Performed By: #### L 500.2500, L100.0100 ####[facility] [address] [place], [address] Chloride [Moles/Vol] 112 mmol/L High 98-108 [facility] Comment on above: Performed By: #### L 500.2500, L100.0100 ####[facility] [address] [place], [address] CO2 [Moles/Vol] 22.3 mmol/L Normal 21.0-32.0 [facility] Comment on above: Performed By: #### L 500.2500, L100.0100 ####[facility] [address] [place], [address] Creatinine [Mass/Vol] 1.64 mg/dL High 0.70-1.20 [facility] Comment on above: Performed By: #### L 500.2500, L100.0100 ####[facility] [address] [place], [address] ECRCL 40.93 ml/min Low 50-250 [facility] Comment on above: Performed By: #### L 500.2500, L100.0100 ####[facility] [address] [place], [address] GAP 8 Normal 5-15 [facility] Comment on above: Performed By: #### L 500.2500, L100.0100 ####[facility] [address] [place], [address] GFR/1.73 sq M.predicted among non-blacks MDRD (S/P/Bld) [Vol rate/Area] 44 mL/min/{1.73_m2} Low >60 [facility] Comment on above: Result Comment: mL/m in/1.73m2 CKD-EPI Creatinine Equation (2020) Performed By: #### L 500.2500, L100.0100 ####[facility] [address] [place], [address] Glucose [Mass/Vol] 121 mg/dL High 70-99 [facility] Comment on above: Performed By: #### L 500.2500, L100.0100 ####[facility] [address] [place], [address] Potassium [Moles/Vol] 3.9 mmol/L Normal 3.3-5.1 [facility] Comment on above: Performed By: #### L 500.2500, L100.0100 ####[facility] [address] [place], [address] Sodium [Moles/Vol] 142 mmol/L Normal 133-145 [facility] Comment on above: Performed By: #### L 500.2500, L100.0100 ####[facility] [address] [place], [address] Urea nitrogen [Mass/Vol] 19 mg/dL Normal 4-19 [facility] Comment on above: Performed By: #### L 500.2500, L100.0100 ####[facility] [address] [place], [address] Bedside Glucoseon 07-20-2024 FINGERSTICK GLU 107 mg/dL High 74-106 [facility] Comment on above: Result Comment: KALA GEMENT OF PATIENT CARE PER NURSING PROTOCOL Performed By: #### L 501.080 ####[facility] [address] [place], [address] FINGERSTICK GLU 126 mg/dL High 74-106 [facility] Comment on above: Result Comment: KALA GEMENT OF PATIENT CARE PER NURSING PROTOCOL Performed By: #### L 501.080 ####[facility] [address] [place], [address] FINGERSTICK GLU 135 mg/dL High 74-106 [facility] Comment on above: Result Comment: KALA GEMENT OF PATIENT CARE PER NURSING PROTOCOL Performed By: #### L 501.080 ####[facility] [address] [place], [address] FINGERSTICK GLU 120 mg/dL High 74-106 [facility] Comment on above: Result Comment: KALA GEMENT OF PATIENT CARE PER NURSING PROTOCOL Performed By: #### L 501.080 ####[facility] [address] [place], [address] Blood band neutrophil count as percentage of total leukocytesOrdered By: Miguel Ortiz on 07-20-2024 Band form neutrophils/100 WBC (Bld) 4 % 0-5 [facility] Blood eosinophils/100 leukoc ytesOrdered By: Miguel Ortiz on 07-20-2024 Eosinophils/100 WBC (Bld) 4 % 0-5 [facility] Blood lymphocytes/100 leukoc ytesOrdered By: Miguel Ortiz on 07-20-2024 Lymphocytes/100 WBC (Bld) 8 % Low 19-41 [facility] Blood metamyelocytes/100 michelle kocytesOrdered By: Miguel Ortiz on 07-20-2024 Metamyelocytes/100 WBC (Bld) 1 % 0-1 [facility] Blood monocytes/100 leukocyt esOrdered By: Miguel Ortiz on 07-20-2024 Monocytes/100 WBC (Bld) 6 % 0-10 [facility] Blood promyelocytes/100 leuk ocytesOrdered By: Miguel Ortiz on 07-20-2024 Promyelocytes/100 WBC (Bld) 1 % High 0-0 [facility] Blood segmented neutrophils/ 100 leukocytesOrdered By: Miguel Ortiz on 07-20-2024 Segmented neutrophils/100 WBC (Bld) 74 % High 47-70 [facility] Carbon dioxide, total [Moles /volume] in Central venous bloodOrdered By: Miguel Ortiz on 07-20-2024 CO2 [Moles/Vol] 22.3 mmol/L 21.0-32.0 [facility] Chloride assayOrdered By: Tracy Ortiz on 07-20-2024 Chloride [Moles/Vol] 112 mmol/L High 98-108 [facility] Erythrocyte distribution wid th ratioOrdered By: Miguel Ortiz on 07-20-2024 Erythrocyte distribution width (RBC) [Ratio] 17.3 % High 11.6-14.6 [facility] Erythrocyte distribution wid th standard deviationOrdered By: Miguel Ortiz on 07-20-2024 Erythrocyte distribution width (RBC) [Ratio] 59.7 fl High 35.1-43.9 [facility] Erythrocyte morphology asses smentOrdered By: Miguel Ortiz on 07-20-2024 RBC morphology finding Nom (Bld) NORM C+C NORMAL NORM C&C [facility] Glomerular filtration rate ( GFR) estimation/1.73 sq m using serum, plasma, or whole bOrdered By: Miguel Ortiz on 07-20-2024 GFR/1.73 sq M.predicted among non-blacks MDRD (S/P/Bld) [Vol rate/Area] 44 mL/min/{1.73_m2} Low >60 [facility] Comment on above: mL/min/1.73m2 CKD-EP I Creatinine Equation (2020) [facility] at [facility] deOrdered By: Miguel Ortiz on 07-20-2024 Glucose [Mass/Vol] 107 mg/dL High 74-106 [facility] Comment on above: MANAGEMENT OF PATIEN T CARE PER NURSING PROTOCOL HH, Hemoglobin AND Hematocri ton 07-20-2024 Hematocrit (Bld) [Volume fraction] 26.6 % Low 40-54 [facility] Comment on above: Performed By: #### L 100.0600 ####[facility] [address] [place], [place], [id number]) Hemoglobin (Bld) [Mass/Vol] 8.4 g/dL Low 13.0-16.5 [facility] Comment on above: Performed By: #### L 100.0600 ####[facility] [address] [place], [address] Hematocrit Auto (Bld) [Volum e fraction]Ordered By: Miguel Ortiz on 07-20-2024 Hematocrit (Bld) [Volume fraction] 26.6 % Low 40-54 [facility] Hemoglobin measurementOrdere d By: Miguel Ortiz on 07-20-2024 Hemoglobin (Bld) [Mass/Vol] 8.4 g/dL Low 13.0-16.5 [facility] MCV (mean corpuscular volume ) determinationOrdered By: Miguel Ortiz on 07-20-2024 MCV (RBC) [Entitic vol] 96.8 fL High 80-94 [facility] Mean corpuscular hemoglobin (MCH) determinationOrdered By: Miguel Ortiz on 07-20-2024 MCH (RBC) [Entitic mass] 30.1 pg 27.0-32.0 [facility] Mean corpuscular hemoglobin concentration (MCHC) determinationOrdered By: Miguel Ortiz on 07-20-2024 MCHC (RBC) [Mass/Vol] 31.1 g/dL Low 32-36 [facility] Mean platelet volume determi nationOrdered By: Miguel Ortiz on 07-20-2024 Platelet mean volume (Bld) [Entitic vol] 12.5 fL High 6.2-12.0 [facility] Myelocyte %Ordered By: Isha Ortiz on 07-20-2024 Myelocytes/100 WBC (Bld) 2 % High 0-0 [facility] Platelet countOrdered By: Tracy Ortiz on 07-20-2024 Platelets (Bld) [#/Vol] 178 10*3/uL 150-450 [facility] Platelet estimateOrdered By: Miguel Ortiz on 07-20-2024 Platelets LM Ql (Bld) ADEQUATE ADEQ [facility] Potassium measurement (mass/ volume)Ordered By: Miguel Ortiz on 07-20-2024 Potassium (Unsp spec) [Mass/Vol] 3.9 mmol/L 3.3-5.1 [facility] RBC Auto (Bld) [#/Vol]Ordere d By: Miguel Ortiz on 07-20-2024 RBC (Bld) [#/Vol] 2.19 10*6/uL Low 4.6-6.2 [facility] Review by pathologistOrdered By: Miguel Ortiz on 07-20-2024 Pathologist review Phil (Unsp spec) [Interp] Reviewed [facility] Comment on above: Previous reported re sult: Amanda powell Edited by: OSIRIS on 07/21/24:1128MILD LEUKOCYTOSIS WITH LEFT-SHIFTED GRANULOCYTOSIS.MACROCYTIC HYPOCHROMIC ANEMIA WITH MODERATE ANISOCYTOSIS.ADEQUATE PLATELETS.Melisa Shleby MD 07/21/2024 AMENDED REPORT 07/21/24 1128 PATH REV previously reported as: Amanda powell Serum creatinine measurement (mass/volume)Ordered By: Miguel Ortiz on 07-20-2024 Creatinine [Mass/Vol] 1.64 mg/dL High 0.70-1.20 [facility] Serum glucose measurement (m ass/volume)Ordered By: Miguel Ortiz on 07-20-2024 Glucose [Mass/Vol] 121 mg/dL High 70-99 [facility] Serum or plasma calcium camille urement (mass/volume)Ordered By: Miguel Ortiz on 07-20-2024 Calcium [Mass/Vol] 8.5 mg/dL 7.6-11.0 [facility] Serum or plasma urea nitroge n measurement (mass/volume)Ordered By: Miguel Ortiz on 07-20-2024 Urea nitrogen [Mass/Vol] 19 mg/dL 4-19 [facility] Sodium levelOrdered By: Irina Ortiz on 07-20-2024 Sodium [Moles/Vol] 142 mmol/L 133-145 [facility] Total cell countOrdered By: Miguel Ortiz on 07-20-2024 Cells counted Molgen (Bld/Tiss) [#] 100 MANUAL DIFF [facility] Type AND Screenon 07-20-2024 Ab SCREEN GEL Negative Normal [facility] Comment on above: Order Comment: CMV N EG? NNumber of units to transfuse: 1Reason for Ordering Blood: AcuteAre the blood/blood products to be transfused? YIs the patient having/had surgery? NWaroldo Saravia Performed By: #### B RC, BTS ####[facility] [address] [place], [place], [id number] White blood cell (WBC) count Ordered By: Miguel Ortiz on 07-20-2024 WBC (Bld) [#/Vol] 11.4 10*3/uL High 4.4-11.0 [facility] Automated lymphocyte count a s percentage of total leukocytesOrdered By: Miguel Ortiz on 07-19-2024 Lymphocytes/100 WBC Auto (Unsp spec) 8.5 % Low 19-41 [facility] Basic Metabolic Profile (BMP )on 07-19-2024 BUN/CRE 14.6 RATIO Normal 10-20 [facility] Comment on above: Performed By: #### L 500.2500, L100.9950, L503.6030, L100.0100, L503.6550 ####[facility] [address] [place], [address] Calcium [Mass/Vol] 8.5 mg/dL Normal 7.6-11.0 [facility] Comment on above: Performed By: #### L 500.2500, L100.9950, L503.6030, L100.0100, L503.6550 ####[facility] [address] [place], [address] Chloride [Moles/Vol] 112 mmol/L High 98-108 [facility] Comment on above: Performed By: #### L 500.2500, L100.9950, L503.6030, L100.0100, L503.6550 ####[facility] [address] [place], [address] CO2 [Moles/Vol] 22.5 mmol/L Normal 21.0-32.0 [facility] Comment on above: Performed By: #### L 500.2500, L100.9950, L503.6030, L100.0100, L503.6550 ####[facility] [address] [place], [address] Creatinine [Mass/Vol] 1.77 mg/dL High 0.70-1.20 [facility] Comment on above: Performed By: #### L 500.2500, L100.9950, L503.6030, L100.0100, L503.6550 ####[facility] [address] [place], [address] ECRCL 37.48 ml/min Low 50-250 [facility] Comment on above: Performed By: #### L 500.2500, L100.9950, L503.6030, L100.0100, L503.6550 ####[facility] [address] [place], [address] GAP 9 Normal 5-15 [facility] Comment on above: Performed By: #### L 500.2500, L100.9950, L503.6030, L100.0100, L503.6550 ####[facility] [address] [place], [address] GFR/1.73 sq M.predicted among non-blacks MDRD (S/P/Bld) [Vol rate/Area] 40 mL/min/{1.73_m2} Low >60 [facility] Comment on above: Result Comment: mL/m in/1.73m2 CKD-EPI Creatinine Equation (2020) Performed By: #### L 500.2500, L100.9950, L503.6030, L100.0100, L503.6550 ####[facility] [address] [place], [address] Glucose [Mass/Vol] 154 mg/dL High 70-99 [facility] Comment on above: Performed By: #### L 500.2500, L100.9950, L503.6030, L100.0100, L503.6550 ####[facility] [address] [place], [address] Potassium [Moles/Vol] 3.8 mmol/L Normal 3.3-5.1 [facility] Comment on above: Performed By: #### L 500.2500, L100.9950, L503.6030, L100.0100, L503.6550 ####[facility] [address] [place], [address] Sodium [Moles/Vol] 144 mmol/L Normal 133-145 [facility] Comment on above: Performed By: #### L 500.2500, L100.9950, L503.6030, L100.0100, L503.6550 ####[facility] [address] [place], [address] Urea nitrogen [Mass/Vol] 26 mg/dL High 4-19 [facility] Comment on above: Performed By: #### L 500.2500, L100.9950, L503.6030, L100.0100, L503.6550 ####[facility] [address] [place], [address] Basophil percentageOrdered B y: Miguel Ortiz on 07-19-2024 Basophils/100 WBC (Bld) 0.2 % 0-1 [facility] Bedside Glucoseon 07-19-2024 FINGERSTICK GLU 129 mg/dL High 74-106 [facility] Comment on above: Result Comment: KALA GEMENT OF PATIENT CARE PER NURSING PROTOCOL Performed By: #### L 501.080 ####[facility] [address] [place], [address] FINGERSTICK GLU 155 mg/dL High -106 [facility] Comment on above: Result Comment: KALA GEMENT OF PATIENT CARE PER NURSING PROTOCOL Performed By: #### L 501.080 ####[facility] [address] [place], [address] FINGERSTICK GLU 135 mg/dL High -106 [facility] Comment on above: Result Comment: KALA GEMENT OF PATIENT CARE PER NURSING PROTOCOL Performed By: #### L 501.080 ####[facility] [address] [place], [address] FINGERSTICK GLU 144 mg/dL High [facility]106 [facility] Comment on above: Result Comment: KALA GEMENT OF PATIENT CARE PER NURSING PROTOCOL Performed By: #### L 501.080 ####[facility] [address] [place], [address] Blood manual differential co mment interpretation (narrative result)Ordered By: Miguel Ortiz on 07-19-2024 Manual differential comment Phil (Bld) [Interp] SCANNED [facility] Comment on above: MONOCYTOSIS NOTED CBC W/Diff, Automatedon 06-28 SMEAR COMMENT SCANNED Normal [facility] Comment on above: Result Comment: MONO CYTOSIS NOTED Performed By: #### L 500.2500, L100.9950, L503.6030, L100.0100, L503.6550 ####[facility] [address] [place], [address] Eosinophil percentageOrdered By: Miguel Ortiz on 07-19-2024 Eosinophils/100 WBC (Bld) 2.3 % 0-5 [facility] Ferritinon 07-19-2024 Ferritin [Mass/Vol] 345 ng/mL Normal 37-417 [facility] Comment on above: Performed By: #### L 500.2500, L100.9950, L503.6030, L100.0100, L503.6550 ####[facility] [address] [place], [address] HH, Hemoglobin AND Hematocri ton 07-19-2024 Hematocrit (Bld) [Volume fraction] 24.4 % Low 40-54 [facility] Comment on above: Performed By: #### L 100.0600 ####[facility] [address] [place], [address] Hemoglobin (Bld) [Mass/Vol] 7.5 g/dL Low 13.0-16.5 [facility] Comment on above: Performed By: #### L 100.0600 ####[facility] [address] [place], [address] Hematocrit (Bld) [Volume fraction] 23.3 % Low 40-54 [facility] Comment on above: Performed By: #### L 100.0600 ####[facility] [address] [place], [address] Hemoglobin (Bld) [Mass/Vol] 7.2 g/dL Low 13.0-16.5 [facility] Comment on above: Performed By: #### L 100.0600 ####[facility] [address] [place], [address] Immature granulocytes/100 WB C Auto (Bld)Ordered By: Miguel Ortiz on 07-19-2024 Immature granulocytes/100 WBC (Bld) 1.600 % High 0.0-0.9 [facility] Comment on above: IG% - Immature Granu locytes (promyelocytes, myelocytes and metamyelocytes) > 1% indicates that a LEFT SHIFT is Present. Iron measurement (mass/mass) Ordered By: Miguel Ortiz on 07-19-2024 Iron (Unsp spec) [Mass/Mass] 25 ug/dL Low 65-175 [facility] Iron+Iron Binding Capacityon 07-19-2024 TIBC TNP Normal 250-450 [facility] Comment on above: Performed By: #### L 500.2500, L100.9950, L503.6030, L100.0100, L503.6550 ####[facility] [address] [place], [place], [id number] Modified Barium Swallow Stud yon 07-19-2024 Modified Barium Swallow Study Normal [facility] Monocyte percentageOrdered B y: Miguel Ortiz on 07-19-2024 Monocytes/100 WBC (Bld) 14.1 % High 0-10 [facility] No Panel InformationOrdered By: Miguel Otriz on 07-19-2024 Unsaturated Iron Binding Capacity 125 ug/dL Low 228-428 [facility] 125 ug/dL Low 228-428 [facility] Nucleated red blood cell per centageOrdered By: Miguel Ortiz on 07-19-2024 Nucleated RBC/100 WBC (Bld) [Ratio] 0.7 % 0-5 [facility] Retic Panelon 07-19-2024 IM RET FRACTION 10.50 Normal 3.00-15.90 [facility] Comment on above: Performed By: #### L 500.2500, L100.9950, L503.6030, L100.0100, L503.6550 ####[facility] [address] [place], [place], [id number] RET-HE 28.3 pg Low 30-35 [facility] Comment on above: Performed By: #### L 500.2500, L100.9950, L503.6030, L100.0100, L503.6550 ####[facility] [address] [place], [address] Retic Count 0.77 Normal 0.5-1.5 [facility] Comment on above: Performed By: #### L 500.2500, L100.9950, L503.6030, L100.0100, L503.6550 ####[facility] [address] [place], [address] Reticulocyte hemoglobin equi valent (RET-He) measurementOrdered By: Miguel Ortiz on 07-19-2024 Hemoglobin (Reticulocytes) [Entitic mass] 28.3 pg Low 30-35 [facility] Reticulocytes Auto (Bld) [#/ Vol]Ordered By: Miguel Ortiz on 07-19-2024 Reticulocytes/100 RBC (Bld) 0.77 % 0.5-1.5 [facility] Serum or plasma ferritin haylee surement (mass/volume)Ordered By: Miguel Ortiz on 07-19-2024 Ferritin [Mass/Vol] 345 ng/mL 37-417 [facility] Serum or plasma iron saturat ion measurement (mass fraction)Ordered By: Miguel Ortiz on 07-19-2024 Iron saturation [Mass fraction] 17.0 % 9-55 [facility] Basic Metabolic Profile (BMP )on 07-18-2024 BUN/CRE 17.8 RATIO Normal 10-20 [facility] Comment on above: Performed By: #### L 100.0100, L500.2500 ####[facility] [address] [place], [address] Calcium [Mass/Vol] 8.6 mg/dL Normal 7.6-11.0 [facility] Comment on above: Performed By: #### L 100.0100, L500.2500 ####[facility] [address] [place], [address] Chloride [Moles/Vol] 113 mmol/L High 98-108 [facility] Comment on above: Performed By: #### L 100.0100, L500.2500 ####[facility] [address] [place], [address] CO2 [Moles/Vol] 20.3 mmol/L Low 21.0-32.0 [facility] Comment on above: Performed By: #### L 100.0100, L500.2500 ####[facility] [address] [place], [address] Creatinine [Mass/Vol] 1.90 mg/dL High 0.70-1.20 [facility] Comment on above: Performed By: #### L 100.0100, L500.2500 ####[facility] [address] [place], [address] ECRCL 34.96 ml/min Low 50-250 [facility] Comment on above: Performed By: #### L 100.0100, L500.2500 ####[facility] [address] [place], [address] GAP 12 Normal 5-15 [facility] Comment on above: Performed By: #### L 100.0100, L500.2500 ####[facility] [address] [place], [address] GFR/1.73 sq M.predicted among non-blacks MDRD (S/P/Bld) [Vol rate/Area] 37 mL/min/{1.73_m2} Low >60 [facility] Comment on above: Result Comment: mL/m in/1.73m2 CKD-EPI Creatinine Equation (2020) Performed By: #### L 100.0100, L500.2500 ####[facility] [address] [place], [address] Glucose [Mass/Vol] 154 mg/dL High 70-99 [facility] Comment on above: Performed By: #### L 100.0100, L500.2500 ####[facility] [address] [place], [address] Potassium [Moles/Vol] 3.6 mmol/L Normal 3.3-5.1 [facility] Comment on above: Performed By: #### L 100.0100, L500.2500 ####[facility] [address] [place], [address] Sodium [Moles/Vol] 145 mmol/L Normal 133-145 [facility] Comment on above: Performed By: #### L 100.0100, L500.2500 ####[facility] [address] [place], [address] Urea nitrogen [Mass/Vol] 34 mg/dL High 4-19 [facility] Comment on above: Performed By: #### L 100.0100, L500.2500 ####[facility] [address] [place], [address] Bedside Glucoseon 07-18-2024 FINGERSTICK GLU 130 mg/dL High 74-106 [facility] Comment on above: Result Comment: KALA GEMENT OF PATIENT CARE PER NURSING PROTOCOL Performed By: #### L 501.080 ####[facility] [address] [place], [address] FINGERSTICK GLU 116 mg/dL High 74-106 [facility] Comment on above: Result Comment: KALA GEMENT OF PATIENT CARE PER NURSING PROTOCOL Performed By: #### L 501.080 ####[facility] [address] [place], [address] FINGERSTICK GLU 159 mg/dL High 74-106 [facility] Comment on above: Result Comment: Dr Azeem mckinnon FollowedMANAGEMENT OF PATIENT CARE PER NURSING PROTOCOL Performed By: #### L 501.080 ####[facility] [address] [place], [address] FINGERSTICK GLU 189 mg/dL High 74-106 [facility] Comment on above: Result Comment: KALA GEMENT OF PATIENT CARE PER NURSING PROTOCOL Performed By: #### L 501.080 ####[facility] [address] [place], [address] CBC W/Diff, Automatedon -2 Absolute Lymph 1.30 X10 3/uL Normal 0.83-4.51 [facility] Comment on above: Performed By: #### L 100.0100, L500.2500 ####[facility] [address] [place], [address] Absolute Neut 9.4 X10 3/uL High 2.0-7.7 [facility] Comment on above: Performed By: #### L 100.0100, L500.2500 ####[facility] [address] [place], [address] Basophils/100 WBC (Bld) 0.3 % Normal 0-1 [facility] Comment on above: Performed By: #### L 100.0100, L500.2500 ####[facility] [address] [place], [address] Eosinophils/100 WBC (Bld) 1.2 % Normal 0-5 [facility] Comment on above: Performed By: #### L 100.0100, L500.2500 ####[facility] [address] [place], [address] Erythrocyte distribution width (RBC) [Ratio] 17.4 % High 11.6-14.6 [facility] Comment on above: Performed By: #### L 100.0100, L500.2500 ####[facility] [address] [place], [address] Hematocrit (Bld) [Volume fraction] 23.5 % Low 40-54 [facility] Comment on above: Performed By: #### L 100.0100, L500.2500 ####[facility] [address] [place], [address] Hemoglobin (Bld) [Mass/Vol] 7.4 g/dL Low 13.0-16.5 [facility] Comment on above: Performed By: #### L 100.0100, L500.2500 ####[facility] [address] [place], [address] IG% 0.900 Normal 0.0-0.9 [facility] Comment on above: Result Comment: IG% - Immature Granulocytes (promyelocytes, myelocytes andmetamyelocytes) > 1% indicates that a LEFT SHIFT is Present. Performed By: #### L 100.0100, L500.2500 ####[facility] [address] [place], [address] Lymphocytes/100 WBC (Bld) 9.8 % Low 19-41 [facility] Comment on above: Performed By: #### L 100.0100, L500.2500 ####[facility] [address] [place], [address] MCH (RBC) [Entitic mass] 30.5 pg Normal 27.0-32.0 [facility] Comment on above: Performed By: #### L 100.0100, L500.2500 ####[facility] [address] [place], [address] MCHC (RBC) [Mass/Vol] 31.5 g/dL Low 32-36 [facility] Comment on above: Performed By: #### L 100.0100, L500.2500 ####[facility] [address] [place], [address] MCV (RBC) [Entitic vol] 96.7 fL High 80-94 [facility] Comment on above: Performed By: #### L 100.0100, L500.2500 ####[facility] [address] [place], [address] Monocytes/100 WBC (Bld) 17.2 % High 0-10 [facility] Comment on above: Performed By: #### L 100.0100, L500.2500 ####[facility] [address] [place], [address] Neutrophils/100 WBC (Bld) 70.6 % High 47-70 [facility] Comment on above: Performed By: #### L 100.0100, L500.2500 ####[facility] [address] [place], [address] Nucleated RBC (Bld) [#/Vol] 0.4 10*3/uL Normal 0-5 [facility] Comment on above: Performed By: #### L 100.0100, L500.2500 ####[facility] [address] [place], [address] Platelet mean volume (Bld) [Entitic vol] 11.9 fL Normal 6.2-12.0 [facility] Comment on above: Performed By: #### L 100.0100, L500.2500 ####[facility] [address] [place], [address] Platelets (Bld) [#/Vol] 163 10*3/uL Normal 150-450 [facility] Comment on above: Performed By: #### L 100.0100, L500.2500 ####[facility] [address] [place], [address] RBC (Bld) [#/Vol] 2.43 10*6/uL Low 4.6-6.2 [facility] Comment on above: Performed By: #### L 100.0100, L500.2500 ####[facility] [address] [place], [address] RDW SD 60.1 fl High 35.1-43.9 [facility] Comment on above: Performed By: #### L 100.0100, L500.2500 ####[facility] [address] [place], [address] WBC (Bld) [#/Vol] 13.3 10*3/uL High 4.4-11.0 [facility] Comment on above: Performed By: #### L 100.0100, L500.2500 ####[facility] [address] [place], [address] Ironon 07-18-2024 Iron [Mass/Vol] 11 ug/dL Low 65-175 [facility] Comment on above: Performed By: #### L 503.6150 ####[facility] [address] [place], [address] Basic Metabolic Profile (BMP )on 07-17-2024 BUN/CRE 25.6 RATIO High 10-20 [facility] Comment on above: Performed By: #### L 100.0100, L500.2500 ####[facility] [address] [place], [address] Calcium [Mass/Vol] 8.7 mg/dL Normal 7.6-11.0 [facility] Comment on above: Performed By: #### L 100.0100, L500.2500 ####[facility] [address] [place], [address] Chloride [Moles/Vol] 118 mmol/L High 98-108 [facility] Comment on above: Performed By: #### L 100.0100, L500.2500 ####[facility] [address] [place], [address] CO2 [Moles/Vol] 20.3 mmol/L Low 21.0-32.0 [facility] Comment on above: Performed By: #### L 100.0100, L500.2500 ####[facility] [address] [place], [address] Creatinine [Mass/Vol] 2.04 mg/dL High 0.70-1.20 [facility] Comment on above: Performed By: #### L 100.0100, L500.2500 ####[facility] [address] [place], [address] ECRCL 32.61 ml/min Low 50-250 [facility] Comment on above: Performed By: #### L 100.0100, L500.2500 ####[facility] [address] [place], [address] GAP 11 Normal 5-15 [facility] Comment on above: Performed By: #### L 100.0100, L500.2500 ####[facility] [address] [place], [address] GFR/1.73 sq M.predicted among non-blacks MDRD (S/P/Bld) [Vol rate/Area] 34 mL/min/{1.73_m2} Low >60 [facility] Comment on above: Result Comment: mL/m in/1.73m2 CKD-EPI Creatinine Equation (2020) Performed By: #### L 100.0100, L500.2500 ####[facility] [address] [place], [address] Glucose [Mass/Vol] 148 mg/dL High 70-99 [facility] Comment on above: Performed By: #### L 100.0100, L500.2500 ####[facility] [address] [place], [address] Potassium [Moles/Vol] 3.8 mmol/L Normal 3.3-5.1 [facility] Comment on above: Performed By: #### L 100.0100, L500.2500 ####[facility] [address] [place], [address] Sodium [Moles/Vol] 149 mmol/L High 133-145 [facility] Comment on above: Performed By: #### L 100.0100, L500.2500 ####[facility] [address] [place], [address] Urea nitrogen [Mass/Vol] 52 mg/dL High 4-19 [facility] Comment on above: Performed By: #### L 100.0100, L500.2500 ####[facility] [address] [place], [address] Bedside Glucoseon 07-17-2024 FINGERSTICK GLU 170 mg/dL High 74-106 [facility] Comment on above: Result Comment: KALA GEMENT OF PATIENT CARE PER NURSING PROTOCOL Performed By: #### L 501.080 ####[facility] [address] [place], [address] FINGERSTICK GLU 131 mg/dL High 74-106 [facility] Comment on above: Result Comment: KALA GEMENT OF PATIENT CARE PER NURSING PROTOCOL Performed By: #### L 501.080 ####[facility] [address] [place], [address] FINGERSTICK GLU 107 mg/dL High 74-106 [facility] Comment on above: Result Comment: KALA GEMENT OF PATIENT CARE PER NURSING PROTOCOL Performed By: #### L 501.080 ####[facility] [address] [place], [address] FINGERSTICK GLU 143 mg/dL High 74-106 [facility] Comment on above: Result Comment: KALA GEMENT OF PATIENT CARE PER NURSING PROTOCOL Performed By: #### L 501.080 ####[facility] [address] [place], [address] CBC W/Diff, Automatedon 04-2 Absolute Lymph 0.63 X10 3/uL Low 0.83-4.51 [facility] Comment on above: Performed By: #### L 100.0100, L500.2500 ####[facility] [address] [place], [address] Absolute Neut 3.2 X10 3/uL Normal 2.0-7.7 [facility] Comment on above: Performed By: #### L 100.0100, L500.2500 ####[facility] [address] [place], [address] Basophils/100 WBC (Bld) 0.4 % Normal 0-1 [facility] Comment on above: Performed By: #### L 100.0100, L500.2500 ####[facility] [address] [place], [address] Eosinophils/100 WBC (Bld) 3.2 % Normal 0-5 [facility] Comment on above: Performed By: #### L 100.0100, L500.2500 ####[facility] [address] [place], [address] Erythrocyte distribution width (RBC) [Ratio] 17.7 % High 11.6-14.6 [facility] Comment on above: Performed By: #### L 100.0100, L500.2500 ####[facility] [address] [place], [address] Hematocrit (Bld) [Volume fraction] 23.9 % Low 40-54 [facility] Comment on above: Performed By: #### L 100.0100, L500.2500 ####[facility] [address] [place], [address] Hemoglobin (Bld) [Mass/Vol] 7.3 g/dL Low 13.0-16.5 [facility] Comment on above: Performed By: #### L 100.0100, L500.2500 ####[facility] [address] [place], [address] IG% 0.600 Normal 0.0-0.9 [facility] Comment on above: Result Comment: IG% - Immature Granulocytes (promyelocytes, myelocytes andmetamyelocytes) > 1% indicates that a LEFT SHIFT is Present. Performed By: #### L 100.0100, L500.2500 ####[facility] [address] [place], [address] Lymphocytes/100 WBC (Bld) 13.3 % Low 19-41 [facility] Comment on above: Performed By: #### L 100.0100, L500.2500 ####[facility] [address] [place], [address] MCH (RBC) [Entitic mass] 30.3 pg Normal 27.0-32.0 [facility] Comment on above: Performed By: #### L 100.0100, L500.2500 ####[facility] [address] [place], [address] MCHC (RBC) [Mass/Vol] 30.5 g/dL Low 32-36 [facility] Comment on above: Performed By: #### L 100.0100, L500.2500 ####[facility] [address] [place], [address] MCV (RBC) [Entitic vol] 99.2 fL High 80-94 [facility] Comment on above: Performed By: #### L 100.0100, L500.2500 ####[facility] [address] [place], [address] Monocytes/100 WBC (Bld) 14.6 % High 0-10 [facility] Comment on above: Performed By: #### L 100.0100, L500.2500 ####[facility] [address] [place], [address] Neutrophils/100 WBC (Bld) 67.9 % Normal 47-70 [facility] Comment on above: Performed By: #### L 100.0100, L500.2500 ####[facility] [address] [place], [address] Nucleated RBC (Bld) [#/Vol] 0.6 10*3/uL Normal 0-5 [facility] Comment on above: Performed By: #### L 100.0100, L500.2500 ####[facility] [address] [place], [address] Platelet mean volume (Bld) [Entitic vol] 12.3 fL High 6.2-12.0 [facility] Comment on above: Performed By: #### L 100.0100, L500.2500 ####[facility] [address] [place], [address] Platelets (Bld) [#/Vol] 113 10*3/uL Low 150-450 [facility] Comment on above: Performed By: #### L 100.0100, L500.2500 ####[facility] [address] [place], [address] RBC (Bld) [#/Vol] 2.41 10*6/uL Low 4.6-6.2 [facility] Comment on above: Performed By: #### L 100.0100, L500.2500 ####[facility] [address] [place], [address] RDW SD 62.8 fl High 35.1-43.9 [facility] Comment on above: Performed By: #### L 100.0100, L500.2500 ####[facility] [address] [place], [address] WBC (Bld) [#/Vol] 4.7 10*3/uL Normal 4.4-11.0 [facility] Comment on above: Performed By: #### L 100.0100, L500.2500 ####[facility] [address] [place], [address] Basic Metabolic Profile (BMP )on 07-16-2024 BUN/CRE 29.8 RATIO High 10-20 [facility] Comment on above: Performed By: #### L 100.0100, L500.2500 ####[facility] [address] [place], [address] Calcium [Mass/Vol] 8.5 mg/dL Normal 7.6-11.0 [facility] Comment on above: Performed By: #### L 100.0100, L500.2500 ####[facility] [address] [place], [address] Chloride [Moles/Vol] 115 mmol/L High 98-108 [facility] Comment on above: Performed By: #### L 100.0100, L500.2500 ####[facility] [address] [place], [address] CO2 [Moles/Vol] 18.4 mmol/L Low 21.0-32.0 [facility] Comment on above: Performed By: #### L 100.0100, L500.2500 ####[facility] [address] [place], [address] Creatinine [Mass/Vol] 2.39 mg/dL High 0.70-1.20 [facility] Comment on above: Performed By: #### L 100.0100, L500.2500 ####[facility] [address] [place], [address] ECRCL 27.79 ml/min Low 50-250 [facility] Comment on above: Performed By: #### L 100.0100, L500.2500 ####[facility] [address] [place], [address] GAP 14 Normal 5-15 [facility] Comment on above: Performed By: #### L 100.0100, L500.2500 ####[facility] [address] [place], [address] GFR/1.73 sq M.predicted among non-blacks MDRD (S/P/Bld) [Vol rate/Area] 28 mL/min/{1.73_m2} Low >60 [facility] Comment on above: Result Comment: mL/m in/1.73m2 CKD-EPI Creatinine Equation (2020) Performed By: #### L 100.0100, L500.2500 ####[facility] [address] [place], [address] Glucose [Mass/Vol] 156 mg/dL High 70-99 [facility] Comment on above: Performed By: #### L 100.0100, L500.2500 ####[facility] [address] [place], [address] Potassium [Moles/Vol] 4.1 mmol/L Normal 3.3-5.1 [facility] Comment on above: Performed By: #### L 100.0100, L500.2500 ####[facility] [address] [place], [address] Sodium [Moles/Vol] 148 mmol/L High 133-145 [facility] Comment on above: Performed By: #### L 100.0100, L500.2500 ####[facility] [address] [place], [address] Urea nitrogen [Mass/Vol] 71 mg/dL High 4-19 [facility] Comment on above: Performed By: #### L 100.0100, L500.2500 ####[facility] [address] [place], [address] Bedside Glucoseon 07-16-2024 FINGERSTICK GLU 110 mg/dL High 74-106 [facility] Comment on above: Result Comment: KALA GEMENT OF PATIENT CARE PER NURSING PROTOCOL Performed By: #### L 501.080 ####[facility] [address] [place], [address] FINGERSTICK GLU 149 mg/dL High 74-106 [facility] Comment on above: Result Comment: KALA GEMENT OF PATIENT CARE PER NURSING PROTOCOL Performed By: #### L 501.080 ####[facility] [address] [place], [address] FINGERSTICK GLU 142 mg/dL High 74-106 [facility] Comment on above: Result Comment: KALA GEMENT OF PATIENT CARE PER NURSING PROTOCOL Performed By: #### L 501.080 ####[facility] [address] [place], [address] FINGERSTICK GLU 151 mg/dL High 74-106 [facility] Comment on above: Result Comment: KALA GEMENT OF PATIENT CARE PER NURSING PROTOCOL Performed By: #### L 501.080 ####[facility] [address] [place], [address] CBC W/Diff, Automatedon 04-2 0-2025 Absolute Lymph 0.49 X10 3/uL Low 0.83-4.51 [facility] Comment on above: Performed By: #### L 100.0100, L500.2500 ####[facility] [address] [place], [address] Absolute Neut 7.4 X10 3/uL Normal 2.0-7.7 [facility] Comment on above: Performed By: #### L 100.0100, L500.2500 ####[facility] [address] [place], [address] Basophils/100 WBC (Bld) 0.3 % Normal 0-1 [facility] Comment on above: Performed By: #### L 100.0100, L500.2500 ####[facility] [address] [place], [address] Eosinophils/100 WBC (Bld) 0.3 % Normal 0-5 [facility] Comment on above: Performed By: #### L 100.0100, L500.2500 ####[facility] [address] [place], [address] Erythrocyte distribution width (RBC) [Ratio] 17.8 % High 11.6-14.6 [facility] Comment on above: Performed By: #### L 100.0100, L500.2500 ####[facility] [address] [place], [address] Hematocrit (Bld) [Volume fraction] 23.6 % Low 40-54 [facility] Comment on above: Performed By: #### L 100.0100, L500.2500 ####[facility] [address] [place], [address] Hemoglobin (Bld) [Mass/Vol] 7.5 g/dL Low 13.0-16.5 [facility] Comment on above: Performed By: #### L 100.0100, L500.2500 ####[facility] [address] [place], [address] IG% 0.200 Normal 0.0-0.9 [facility] Comment on above: Result Comment: IG% - Immature Granulocytes (promyelocytes, myelocytes andmetamyelocytes) > 1% indicates that a LEFT SHIFT is Present. Performed By: #### L 100.0100, L500.2500 ####[facility] [address] [place], [address] Lymphocytes/100 WBC (Bld) 5.7 % Low 19-41 [facility] Comment on above: Performed By: #### L 100.0100, L500.2500 ####[facility] [address] [place], [address] MCH (RBC) [Entitic mass] 30.0 pg Normal 27.0-32.0 [facility] Comment on above: Performed By: #### L 100.0100, L500.2500 ####[facility] [address] [place], [address] MCHC (RBC) [Mass/Vol] 31.8 g/dL Low 32-36 [facility] Comment on above: Performed By: #### L 100.0100, L500.2500 ####[facility] [address] [place], [address] MCV (RBC) [Entitic vol] 94.4 fL High 80-94 [facility] Comment on above: Performed By: #### L 100.0100, L500.2500 ####[facility] [address] [place], [address] Monocytes/100 WBC (Bld) 7.3 % Normal 0-10 [facility] Comment on above: Performed By: #### L 100.0100, L500.2500 ####[facility] [address] [place], [address] Neutrophils/100 WBC (Bld) 86.2 % High 47-70 [facility] Comment on above: Performed By: #### L 100.0100, L500.2500 ####[facility] [address] [place], [address] Nucleated RBC (Bld) [#/Vol] 0.2 10*3/uL Normal 0-5 [facility] Comment on above: Performed By: #### L 100.0100, L500.2500 ####[facility] [address] [place], [address] Platelet mean volume (Bld) [Entitic vol] 12.1 fL High 6.2-12.0 [facility] Comment on above: Performed By: #### L 100.0100, L500.2500 ####[facility] [address] [place], [address] Platelets (Bld) [#/Vol] 121 10*3/uL Low 150-450 [facility] Comment on above: Performed By: #### L 100.0100, L500.2500 ####[facility] [address] [place], [address] RBC (Bld) [#/Vol] 2.50 10*6/uL Low 4.6-6.2 [facility] Comment on above: Performed By: #### L 100.0100, L500.2500 ####[facility] [address] [place], [address] RDW SD 57.9 fl High 35.1-43.9 [facility] Comment on above: Performed By: #### L 100.0100, L500.2500 ####[facility] [address] [place], [address] WBC (Bld) [#/Vol] 8.6 10*3/uL Normal 4.4-11.0 [facility] Comment on above: Performed By: #### L 100.0100, L500.2500 ####[facility] [address] [place], [address] Basic Metabolic Profile (BMP )on 07-15-2024 BUN/CRE 33.9 RATIO High 10-20 [facility] Comment on above: Performed By: #### L 500.2500, L100.0100 ####[facility] [address] [place], [address] Calcium [Mass/Vol] 8.5 mg/dL Normal 7.6-11.0 [facility] Comment on above: Performed By: #### L 500.2500, L100.0100 ####[facility] [address] [place], [address] Chloride [Moles/Vol] 113 mmol/L High 98-108 [facility] Comment on above: Performed By: #### L 500.2500, L100.0100 ####[facility] [address] [place], [address] CO2 [Moles/Vol] 21.5 mmol/L Normal 21.0-32.0 [facility] Comment on above: Performed By: #### L 500.2500, L100.0100 ####[facility] [address] [place], [address] Creatinine [Mass/Vol] 2.24 mg/dL High 0.70-1.20 [facility] Comment on above: Performed By: #### L 500.2500, L100.0100 ####[facility] [address] [place], [address] ECRCL 29.62 ml/min Low 50-250 [facility] Comment on above: Performed By: #### L 500.2500, L100.0100 ####[facility] [address] [place], [address] GAP 11 Normal 5-15 [facility] Comment on above: Performed By: #### L 500.2500, L100.0100 ####[facility] [address] [place], [address] GFR/1.73 sq M.predicted among non-blacks MDRD (S/P/Bld) [Vol rate/Area] 30 mL/min/{1.73_m2} Low >60 [facility] Comment on above: Result Comment: mL/m in/1.73m2 CKD-EPI Creatinine Equation (2020) Performed By: #### L 500.2500, L100.0100 ####[facility] [address] [place], [address] Glucose [Mass/Vol] 167 mg/dL High 70-99 [facility] Comment on above: Performed By: #### L 500.2500, L100.0100 ####[facility] [address] [place], [address] Potassium [Moles/Vol] 4.2 mmol/L Normal 3.3-5.1 [facility] Comment on above: Performed By: #### L 500.2500, L100.0100 ####[facility] [address] [place], [address] Sodium [Moles/Vol] 146 mmol/L High 133-145 [facility] Comment on above: Performed By: #### L 500.2500, L100.0100 ####[facility] [address] [place], [address] Urea nitrogen [Mass/Vol] 76 mg/dL High -19 [facility] Comment on above: Performed By: #### L 500.2500, L100.0100 ####[facility] [address] [place], [address] Bedside Glucoseon 07-15-2024 FINGERSTICK GLU 147 mg/dL High 74-106 [facility] Comment on above: Result Comment: KALA GEMENT OF PATIENT CARE PER NURSING PROTOCOL Performed By: #### L 501.080 ####[facility] [address] [place], [address] FINGERSTICK GLU 159 mg/dL High 74-106 [facility] Comment on above: Result Comment: KALA GEMENT OF PATIENT CARE PER NURSING PROTOCOL Performed By: #### L 501.080 ####[facility] [address] [place], [address] FINGERSTICK GLU 156 mg/dL High 74-106 [facility] Comment on above: Result Comment: KALA GEMENT OF PATIENT CARE PER NURSING PROTOCOL Performed By: #### L 501.080 ####[facility] [address] [place], [address] FINGERSTICK GLU 150 mg/dL High 74-106 [facility] Comment on above: Result Comment: KALA GEMENT OF PATIENT CARE PER NURSING PROTOCOL Performed By: #### L 501.080 ####[facility] [address] [place], [address] CBC W/Diff, Automatedon 04- Absolute Lymph 0.80 X10 3/uL Low 0.83-4.51 [facility] Comment on above: Performed By: #### L 500.2500, L100.0100 ####[facility] [address] [place], [address] Absolute Neut 14.5 X10 3/uL High 2.0-7.7 [facility] Comment on above: Performed By: #### L 500.2500, L100.0100 ####[facility] [address] [place], [address] Basophils/100 WBC (Bld) 0.1 % Normal 0-1 [facility] Comment on above: Performed By: #### L 500.2500, L100.0100 ####[facility] [address] [place], [address] Eosinophils/100 WBC (Bld) 1.0 % Normal 0-5 [facility] Comment on above: Performed By: #### L 500.2500, L100.0100 ####[facility] [address] [place], [address] Erythrocyte distribution width (RBC) [Ratio] 18.5 % High 11.6-14.6 [facility] Comment on above: Performed By: #### L 500.2500, L100.0100 ####[facility] [address] [place], [address] Hematocrit (Bld) [Volume fraction] 21.9 % Low 40-54 [facility] Comment on above: Performed By: #### L 500.2500, L100.0100 ####[facility] [address] [place], [address] Hemoglobin (Bld) [Mass/Vol] 6.8 g/dL Low 13.0-16.5 [facility] Comment on above: Performed By: #### L 500.2500, L100.0100 ####[facility] [address] [place], [address] IG% 0.700 Normal 0.0-0.9 [facility] Comment on above: Result Comment: IG% - Immature Granulocytes (promyelocytes, myelocytes andmetamyelocytes) > 1% indicates that a LEFT SHIFT is Present. Performed By: #### L 500.2500, L100.0100 ####[facility] [address] [place], [address] Lymphocytes/100 WBC (Bld) 4.9 % Low 19-41 [facility] Comment on above: Performed By: #### L 500.2500, L100.0100 ####[facility] [address] [place], [address] MCH (RBC) [Entitic mass] 29.8 pg Normal 27.0-32.0 [facility] Comment on above: Performed By: #### L 500.2500, L100.0100 ####[facility] [address] [place], [address] MCHC (RBC) [Mass/Vol] 31.1 g/dL Low 32-36 [facility] Comment on above: Performed By: #### L 500.2500, L100.0100 ####[facility] [address] [place], [address] MCV (RBC) [Entitic vol] 96.1 fL High 80-94 [facility] Comment on above: Performed By: #### L 500.2500, L100.0100 ####[facility] [address] [place], [address] Monocytes/100 WBC (Bld) 4.1 % Normal 0-10 [facility] Comment on above: Performed By: #### L 500.2500, L100.0100 ####[facility] [address] [place], [address] Neutrophils/100 WBC (Bld) 89.2 % High 47-70 [facility] Comment on above: Performed By: #### L 500.2500, L100.0100 ####[facility] [address] [place], [address] Nucleated RBC (Bld) [#/Vol] 0 10*3/uL Normal 0-5 [facility] Comment on above: Performed By: #### L 500.2500, L100.0100 ####[facility] [address] [place], [address] Platelet mean volume (Bld) [Entitic vol] 11.9 fL Normal 6.2-12.0 [facility] Comment on above: Performed By: #### L 500.2500, L100.0100 ####[facility] [address] [place], [address] Platelets (Bld) [#/Vol] 128 10*3/uL Low 150-450 [facility] Comment on above: Performed By: #### L 500.2500, L100.0100 ####[facility] [address] [place], [address] RBC (Bld) [#/Vol] 2.28 10*6/uL Low 4.6-6.2 [facility] Comment on above: Performed By: #### L 500.2500, L100.0100 ####[facility] [address] [place], [address] RDW SD 62.3 fl High 35.1-43.9 [facility] Comment on above: Performed By: #### L 500.2500, L100.0100 ####[facility] [address] [place], [address] WBC (Bld) [#/Vol] 16.2 10*3/uL High 4.4-11.0 [facility] Comment on above: Performed By: #### L 500.2500, L100.0100 ####[facility] [address] [place], [address] Consultation - Surgicalon Consultation - Surgical Normal [facility] BRCon 07-14-2024 RC Normal [facility] Comment on above: Result Comment: [id number] OP RC TRANSFUSED 07/15/24 1620 Performed By: #### B RC ####[facility] [address] [place], [address] Result Comment: [id number] OP RC TRANSFUSED 07/14/24 1114 Performed By: #### B TS, [facility] ####[facility] [address] [place], [address] Basic Metabolic Profile (BMP )on 07-14-2024 BUN/CRE 34.1 RATIO High 10-20 [facility] Comment on above: Performed By: #### L 100.0500, L500.2500 ####[facility] [address] [place], [address] Calcium [Mass/Vol] 8.6 mg/dL Normal 7.6-11.0 [facility] Comment on above: Performed By: #### L 100.0500, L500.2500 ####[facility] [address] [place], [address] Chloride [Moles/Vol] 110 mmol/L High 98-108 [facility] Comment on above: Performed By: #### L 100.0500, L500.2500 ####[facility] [address] [place], [address] CO2 [Moles/Vol] 20.1 mmol/L Low 21.0-32.0 [facility] Comment on above: Performed By: #### L 100.0500, L500.2500 ####[facility] [address] [place], [address] Creatinine [Mass/Vol] 2.12 mg/dL High 0.70-1.20 [facility] Comment on above: Performed By: #### L 100.0500, L500.2500 ####[facility] [address] [place], [address] ECRCL 31.76 ml/min Low 50-250 [facility] Comment on above: Performed By: #### L 100.0500, L500.2500 ####[facility] [address] [place], [address] GAP 12 Normal 5-15 [facility] Comment on above: Performed By: #### L 100.0500, L500.2500 ####[facility] [address] [place], [address] GFR/1.73 sq M.predicted among non-blacks MDRD (S/P/Bld) [Vol rate/Area] 32 mL/min/{1.73_m2} Low >60 [facility] Comment on above: Result Comment: mL/m in/1.73m2 CKD-EPI Creatinine Equation (2020) Performed By: #### L 100.0500, L500.2500 ####[facility] [address] [place], [address] Glucose [Mass/Vol] 141 mg/dL High 70-99 [facility] Comment on above: Performed By: #### L 100.0500, L500.2500 ####[facility] [facility] [address] [place], [address] Potassium [Moles/Vol] 4.3 mmol/L Normal 3.3-5.1 [facility] Comment on above: Performed By: #### L 100.0500, L500.2500 ####[facility] [address] [place], [address] Sodium [Moles/Vol] 142 mmol/L Normal 133-145 [facility] Comment on above: Performed By: #### L 100.0500, L500.2500 ####[facility] [address] [place], [address] Urea nitrogen [Mass/Vol] 72 mg/dL High 4-19 [facility] Comment on above: Performed By: #### L 100.0500, L500.2500 ####[facility] [address] [place], [address] Bedside Glucoseon 07-14-2024 FINGERSTICK GLU 138 mg/dL High 74-106 [facility] Comment on above: Result Comment: KALA GEMENT OF PATIENT CARE PER NURSING PROTOCOL Performed By: #### L 501.080 ####[facility] [address] [place], [address] FINGERSTICK GLU 158 mg/dL High 74-106 [facility] Comment on above: Result Comment: KALA GEMENT OF PATIENT CARE PER NURSING PROTOCOL Performed By: #### L 501.080 ####[facility] [address] [place], [address] FINGERSTICK GLU 134 mg/dL High 74-106 [facility] Comment on above: Result Comment: KALA GEMENT OF PATIENT CARE PER NURSING PROTOCOL Performed By: #### L 501.080 ####[facility] [address] [place], [address] FINGERSTICK GLU 131 mg/dL High 74-106 [facility] Comment on above: Result Comment: KALA GEMENT OF PATIENT CARE PER NURSING PROTOCOL Performed By: #### L 501.080 ####[facility] [address] [place], [address] CBC-Complete Blood Cnt No Di ffon 07-14-2024 Erythrocyte distribution width (RBC) [Ratio] 16.4 % High 11.6-14.6 [facility] Comment on above: Performed By: #### L 100.0500, L500.2500 ####[facility] [address] [place], [address] Hematocrit (Bld) [Volume fraction] 20.6 % Low 40-54 [facility] Comment on above: Performed By: #### L 100.0500, L500.2500 ####[facility] [address] [place], [address] Hemoglobin (Bld) [Mass/Vol] 6.6 g/dL Low 13.0-16.5 [facility] Comment on above: Performed By: #### L 100.0500, L500.2500 ####[facility] [address] [place], [address] MCH (RBC) [Entitic mass] 30.4 pg Normal 27.0-32.0 [facility] Comment on above: Performed By: #### L 100.0500, L500.2500 ####[facility] [address] [place], [address] MCHC (RBC) [Mass/Vol] 32.0 g/dL Normal 32-36 [facility] Comment on above: Performed By: #### L 100.0500, L500.2500 ####[facility] [address] [place], [address] MCV (RBC) [Entitic vol] 94.9 fL High 80-94 [facility] Comment on above: Performed By: #### L 100.0500, L500.2500 ####[facility] [address] [place], [address] Platelet mean volume (Bld) [Entitic vol] 12.1 fL High 6.2-12.0 [facility] Comment on above: Performed By: #### L 100.0500, L500.2500 ####[facility] [address] [place], [address] Platelets (Bld) [#/Vol] 140 10*3/uL Low 150-450 [facility] Comment on above: Performed By: #### L 100.0500, L500.2500 ####[facility] [address] [place], [address] RBC (Bld) [#/Vol] 2.17 10*6/uL Low 4.6-6.2 [facility] Comment on above: Performed By: #### L 100.0500, L500.2500 ####[facility] [address] [place], [address] RDW SD 55.3 fl High 35.1-43.9 [facility] Comment on above: Performed By: #### L 100.0500, L500.2500 ####[facility] [address] [place], [address] WBC (Bld) [#/Vol] 7.3 10*3/uL Normal 4.4-11.0 [facility] Comment on above: Performed By: #### L 100.0500, L500.2500 ####[facility] [address] [place], [address] EGD Reporton 07-14-2024 EGD Report Normal [facility] MR/POSTOP.ANEon 07-14-2024 MR/POSTOP.ANE Normal [facility] MR/FIWFGMFX1ks 07-14-2024 MR/POSTOPAN2 Normal [facility] Type AND Screenon 07-14-2024 ABO and Rh group Nom (Bld) Blood group O Rh(D) positive Normal [facility] Comment on above: Order Comment: CMV N EG? NNumber of units to transfuse: 1Reason for Ordering Blood: AcuteAre the blood/blood products to be transfused? YIs the patient having/had surgery? NWaroldo Saravia Performed By: #### B TS, BRC ####[facility] [address] [place], [address] Abdomen/Pelvis without Conto n 07-13-2024 Abdomen/Pelvis without Cont Normal [facility] Absolute neutrophil countOrd ered By: John Michele on 07-13-2024 Neutrophils (Bld) [#/Vol] 4.1 10*3/uL 2.0-7.7 [facility] Anion gap in Serum or Plasma Ordered By: John Michele on 07-13-2024 Anion gap [Moles/Vol] 15 mmol/L 5-15 [facility] BUN/creatinine ratioOrdered By: John Michele on 07-13-2024 Urea nitrogen/Creatinine [Mass ratio] 30.0 mg/mg High 10-20 [facility] Basophil percentageOrdered B y: John Michele on 07-13-2024 Basophils/100 WBC (Bld) 0.5 % 0-1 [facility] Bedside Glucoseon 07-13-2024 FINGERSTICK GLU 111 mg/dL High 74-106 [facility] Comment on above: Result Comment: KALA VALENZUELA OF PATIENT CARE PER NURSING PROTOCOL Performed By: #### L 501.080 ####[facility] [address] [place], [address] Bilirubin, totalOrdered By: John Michele on 07-13-2024 Bilirubin [Mass/Vol] 0.53 mg/dL 0.00-1.30 [facility] CBC W/Diff, Automatedon 06-27 Absolute Lymph 1.82 X10 3/uL Normal 0.83-4.51 [facility] Comment on above: Performed By: #### L 100.0100, L500.4050 ####[facility] [address] [place], [address] Absolute Neut 4.1 X10 3/uL Normal 2.0-7.7 [facility] Comment on above: Performed By: #### L 100.0100, L500.4050 ####[facility] [address] [place], [address] Basophils/100 WBC (Bld) 0.5 % Normal 0-1 [facility] Comment on above: Performed By: #### L 100.0100, L500.4050 ####[facility] [address] [place], [address] Eosinophils/100 WBC (Bld) 2.7 % Normal 0-5 [facility] Comment on above: Performed By: #### L 100.0100, L500.4050 ####[facility] [address] [place], [address] Erythrocyte distribution width (RBC) [Ratio] 16.0 % High 11.6-14.6 [facility] Comment on above: Performed By: #### L 100.0100, L500.4050 ####[facility] [address] [place], [address] Hematocrit (Bld) [Volume fraction] 27.5 % Low 40-54 [facility] Comment on above: Performed By: #### L 100.0100, L500.4050 ####[facility] [address] [place], [address] Hemoglobin (Bld) [Mass/Vol] 8.4 g/dL Low 13.0-16.5 [facility] Comment on above: Performed By: #### L 100.0100, L500.4050 ####[facility] [address] [place], [address] IG% 0.900 Normal 0.0-0.9 [facility] Comment on above: Result Comment: IG% - Immature Granulocytes (promyelocytes, myelocytes andmetamyelocytes) > 1% indicates that a LEFT SHIFT is Present. Performed By: #### L 100.0100, L500.4050 ####[facility] [address] [place], [address] Lymphocytes/100 WBC (Bld) 27.8 % Normal 19-41 [facility] Comment on above: Performed By: #### L 100.0100, L500.4050 ####[facility] [address] [place], [address] MCH (RBC) [Entitic mass] 30.0 pg Normal 27.0-32.0 [facility] Comment on above: Performed By: #### L 100.0100, L500.4050 ####[facility] [address] [place], [address] MCHC (RBC) [Mass/Vol] 30.5 g/dL Low 32-36 [facility] Comment on above: Performed By: #### L 100.0100, L500.4050 ####[facility] [address] [place], [address] MCV (RBC) [Entitic vol] 98.2 fL High 80-94 [facility] Comment on above: Performed By: #### L 100.0100, L500.4050 ####[facility] [address] [place], [address] Monocytes/100 WBC (Bld) 5.0 % Normal 0-10 [facility] Comment on above: Performed By: #### L 100.0100, L500.4050 ####[facility] [address] [place], [address] Neutrophils/100 WBC (Bld) 63.1 % Normal 47-70 [facility] Comment on above: Performed By: #### L 100.0100, L500.4050 ####[facility] [address] [place], [address] Nucleated RBC (Bld) [#/Vol] 0 10*3/uL Normal 0-5 [facility] Comment on above: Performed By: #### L 100.0100, L500.4050 ####[facility] [address] [place], [address] Platelet mean volume (Bld) [Entitic vol] 12.6 fL High 6.2-12.0 [facility] Comment on above: Performed By: #### L 100.0100, L500.4050 ####[facility] [address] [place], [address] Platelets (Bld) [#/Vol] 126 10*3/uL Low 150-450 [facility] Comment on above: Performed By: #### L 100.0100, L500.4050 ####[facility] [address] [place], [address] RBC (Bld) [#/Vol] 2.80 10*6/uL Low 4.6-6.2 [facility] Comment on above: Performed By: #### L 100.0100, L500.4050 ####[facility] [address] [place], [address] RDW SD 55.8 fl High 35.1-43.9 [facility] Comment on above: Performed By: #### L 100.0100, L500.4050 ####[facility] [address] [place], [address] WBC (Bld) [#/Vol] 6.6 10*3/uL Normal 4.4-11.0 [facility] Comment on above: Performed By: #### L 100.0100, L500.4050 ####[facility] [address] [place], [address] Carbon dioxide, total [Moles /volume] in Central venous bloodOrdered By: John Michele on 07-13-2024 CO2 [Moles/Vol] 17.9 mmol/L Low 21.0-32.0 [facility] Chloride assayOrdered By: Rupali Michele on 07-13-2024 Chloride [Moles/Vol] 107 mmol/L 98-108 [facility] Comprehensive Metabolic Prof ilon 07-13-2024 GAP 15 Normal 5-15 [facility] Comment on above: Performed By: #### L 100.0100, L500.4050 ####[facility] [address] [place], [address] Albumin [Mass/Vol] 3.4 g/dL Normal 3.4-4.8 [facility] Comment on above: Performed By: #### L 100.0100, L500.4050 ####[facility] [address] [place], [address] Albumin/Globulin [Mass ratio] 1.2 {ratio} Normal 0.9-2.4 [facility] Comment on above: Performed By: #### L 100.0100, L500.4050 ####[facility] [address] [place], [address] ALK PHOS 44 U/L Normal 40-129 [facility] Comment on above: Performed By: #### L 100.0100, L500.4050 ####[facility] [address] [place], [address] ALT [Catalytic activity/Vol] 7 U/L Normal <=46 [facility] Comment on above: Result Comment: Hemo lysis present, Results??could be affected.?? Performed By: #### L 100.0100, L500.4050 ####[facility] [address] [place], [address] AST [Catalytic activity/Vol] 27 U/L Normal <=37 [facility] Comment on above: Result Comment: Hemo lysis present, Results??could be affected.?? Performed By: #### L 100.0100, L500.4050 ####[facility] [address] [place], [address] Bilirubin [Mass/Vol] 0.53 mg/dL Normal 0.00-1.30 [facility] Comment on above: Performed By: #### L 100.0100, L500.4050 ####[facility] [address] [place], [address] BUN/CRE 30.0 RATIO High 10-20 [facility] Comment on above: Performed By: #### L 100.0100, L500.4050 ####[facility] [address] [place], [address] Calcium [Mass/Vol] 8.9 mg/dL Normal 7.6-11.0 [facility] Comment on above: Performed By: #### L 100.0100, L500.4050 ####[facility] [address] [place], [address] Chloride [Moles/Vol] 107 mmol/L Normal 98-108 [facility] Comment on above: Performed By: #### L 100.0100, L500.4050 ####[facility] [address] [place], [address] CO2 [Moles/Vol] 17.9 mmol/L Low 21.0-32.0 [facility] Comment on above: Performed By: #### L 100.0100, L500.4050 ####[facility] [address] [place], [address] Creatinine [Mass/Vol] 2.20 mg/dL High 0.70-1.20 [facility] Comment on above: Performed By: #### L 100.0100, L500.4050 ####[facility] [address] [place], [address] ECRCL 33.63 ml/min Low 50-250 [facility] Comment on above: Performed By: #### L 100.0100, L500.4050 ####[facility] [address] [place], [address] GFR/1.73 sq M.predicted among non-blacks MDRD (S/P/Bld) [Vol rate/Area] 31 mL/min/{1.73_m2} Low >60 [facility] Comment on above: Result Comment: mL/m in/1.73m2 CKD-EPI Creatinine Equation (2020) Performed By: #### L 100.0100, L500.4050 ####[facility] [address] [place], [address] Globulin (S) [Mass/Vol] 2.8 g/dL Normal 2.2-4.2 [facility] Comment on above: Performed By: #### L 100.0100, L500.4050 ####[facility] [address] [place], [address] Glucose [Mass/Vol] 117 mg/dL High 70-99 [facility] Comment on above: Performed By: #### L 100.0100, L500.4050 ####[facility] [address] [place], [address] Potassium [Moles/Vol] 4.8 mmol/L Normal 3.3-5.1 [facility] Comment on above: Result Comment: Hemo lysis present, Results??could be affected.?? Performed By: #### L 100.0100, L500.4050 ####[facility] [address] [place], [address] Sodium [Moles/Vol] 140 mmol/L Normal 133-145 [facility] Comment on above: Performed By: #### L 100.0100, L500.4050 ####[facility] [address] [place], [address] T PROT 6.1 g/dL Normal 5.9-8.4 [facility] Comment on above: Performed By: #### L 100.0100, L500.4050 ####[facility] [address] [place], [address] Urea nitrogen [Mass/Vol] 66 mg/dL High 4-19 [facility] Comment on above: Performed By: #### L 100.0100, L500.4050 ####[facility] [address] [place], [address] Emergency Department Summary on 07-13-2024 Emergency Department Summary Normal [facility] Eosinophil percentageOrdered By: John Michele on 07-13-2024 Eosinophils/100 WBC (Bld) 2.7 % 0-5 [facility] Erythrocyte distribution wid th (RBC) [Ratio]Ordered By: John Michele on 07-13-2024 Erythrocyte distribution width (RBC) [Entitic vol] 55.8 fL High 35.1-43.9 [facility] Erythrocyte distribution wid th ratioOrdered By: John Michele on 07-13-2024 Erythrocyte distribution width (RBC) [Ratio] 16.0 % High 11.6-14.6 [facility] Estimation of creatinine jerel aranceOrdered By: John Michele on 07-13-2024 Estimated Creatinine Clearance Calc 33.63 ml/min Low 50-250 [facility] GFR/1.73 sq M.predicted nicole g non-blacks MDRD (S/P/Bld) [Vol rate/Area]Ordered By: John Michele on 07-13-2024 Estimated GFR (MDRD) Non-Af Amer 31 Low >60 [facility] Comment on above: mL/min/1.73m2 CKD-EP I Creatinine Equation (2020) H AND P Exam - Hospitaliston 07-13-2024 H&P Exam - Hospitalist Normal [facility] Hematocrit Auto (Bld) [Volum e fraction]Ordered By: John Michele on 07-13-2024 Hematocrit (Bld) [Volume fraction] 27.5 % Low 40-54 [facility] Hemoglobin measurementOrdere d By: John Michele on 07-13-2024 Hemoglobin (Bld) [Mass/Vol] 8.4 g/dL Low 13.0-16.5 [facility] Immature granulocytes/100 WB C Auto (Bld)Ordered By: John Michele on 07-13-2024 Immature granulocytes/100 WBC (Bld) 0.900 % 0.0-0.9 [facility] Comment on above: IG% - Immature Granu locytes (promyelocytes, myelocytes and metamyelocytes) > 1% indicates that a LEFT SHIFT is Present. Laboratory - Chemistry and C hemistry - challengeOrdered By: John Michele on 07-13-2024 AST [Catalytic activity/Vol] 27 U/L <38 [facility] Comment on above: Hemolysis present, R esults could be affected. Lymphocytes Auto (Unsp spec) [#/Vol]Ordered By: John Michele on 07-13-2024 Lymphocytes (Bld) [#/Vol] 1.82 10*3/uL 0.83-4.51 [facility] Lymphocytes/100 WBC Auto (Un sp spec)Ordered By: John Michele on 07-13-2024 Lymphocytes/100 WBC (Bld) 27.8 % 19-41 [facility] MCV (mean corpuscular volume ) determinationOrdered By: John Michele on 07-13-2024 MCV (RBC) [Entitic vol] 98.2 fL High 80-94 [facility] Comment on above: Delta: 93.0 on 07/10 Mean corpuscular hemoglobin (MCH) determinationOrdered By: John Michele on 07-13-2024 MCH (RBC) [Entitic mass] 30.0 pg 27.0-32.0 [facility] Mean corpuscular hemoglobin concentration (MCHC) determinationOrdered By: John Michele on 07-13-2024 MCHC (RBC) [Mass/Vol] 30.5 g/dL Low 32-36 [facility] Comment on above: Delta: 32.4 on 07/10 Mean platelet volume determi nationOrdered By: John Michele on 07-13-2024 Platelet mean volume (Bld) [Entitic vol] 12.6 fL High 6.2-12.0 [facility] Monocyte percentageOrdered B y: John Michele on 07-13-2024 Monocytes/100 WBC (Bld) 5.0 % 0-10 [facility] Neutrophil percentageOrdered By: John Micehle on 07-13-2024 Neutrophils/100 WBC (Bld) 63.1 % 47-70 [facility] No Panel InformationOrdered By: John Michele on 07-13-2024 27 U/L <38 [facility] Nucleated red blood cell per centageOrdered By: John Michele on 07-13-2024 Nucleated RBC/100 WBC (Bld) [Ratio] 0 % 0-5 [facility] Platelet countOrdered By: Rupali Michele on 07-13-2024 Platelets (Bld) [#/Vol] 126 10*3/uL Low 150-450 [facility] Potassium (Unsp spec) [Mass/ Vol]Ordered By: John Michele on 07-13-2024 Potassium [Moles/Vol] 4.8 mmol/L 3.3-5.1 [facility] Comment on above: Hemolysis present, R esults could be affected. RBC Auto (Bld) [#/Vol]Ordere d By: John Michele on 07-13-2024 RBC (Bld) [#/Vol] 2.80 10*6/uL Low 4.6-6.2 [facility] Serum creatinine measurement (mass/volume)Ordered By: John Michele on 07-13-2024 Creatinine [Mass/Vol] 2.20 mg/dL High 0.70-1.20 [facility] Serum globulin measurementOr dered By: John Michele on 07-13-2024 Globulin (S) [Mass/Vol] 2.8 g/dL 2.2-4.2 [facility] Serum glucose measurement (m ass/volume)Ordered By: John Michele on 07-13-2024 Glucose [Mass/Vol] 117 mg/dL High 70-99 [facility] Serum or plasma alanine mancia otransferase (ALT) measurementOrdered By: John Michele on 07-13-2024 ALT [Catalytic activity/Vol] 7 U/L <47 [facility] Comment on above: Hemolysis present, R esults could be affected. Serum or plasma albumin camille urement (mass/volume)Ordered By: John Michele on 07-13-2024 Albumin [Mass/Vol] 3.4 g/dL 3.4-4.8 [facility] Serum or plasma albumin/glob ulin mass ratioOrdered By: John Michele on 07-13-2024 Albumin/Globulin [Mass ratio] 1.2 {ratio} 0.9-2.4 [facility] Serum or plasma alkaline milton sphatase measurementOrdered By: John Michele on 07-13-2024 ALP [Catalytic activity/Vol] 44 U/L 40-129 [facility] Serum or plasma calcium camille urement (mass/volume)Ordered By: John Michele on 07-13-2024 Calcium [Mass/Vol] 8.9 mg/dL 7.6-11.0 [facility] Serum or plasma urea nitroge n measurement (mass/volume)Ordered By: John Michele on 07-13-2024 Urea nitrogen [Mass/Vol] 66 mg/dL High 4-19 [facility] Sodium levelOrdered By: John Michele on 07-13-2024 Sodium [Moles/Vol] 140 mmol/L 133-145 [facility] Total proteinOrdered By: Valentine Michele on 07-13-2024 Protein [Mass/Vol] 6.1 g/dL 5.9-8.4 [facility] White blood cell (WBC) count Ordered By: John Michele on 07-13-2024 WBC (Bld) [#/Vol] 6.6 10*3/uL 4.4-11.0 [facility] Anion gap in Serum or Plasma Ordered By: Shari Hurd on 07-10-2024 Anion gap [Moles/Vol] 11 mmol/L 5-15 [facility] BUN/creatinine ratioOrdered By: Shari Hurd on 07-10-2024 Urea nitrogen/Creatinine [Mass ratio] 6.5 mg/mg Low 10-20 [facility] Bilirubin, totalOrdered By: Shari Hurd on 07-10-2024 Bilirubin [Mass/Vol] 0.54 mg/dL 0.00-1.30 [facility] CBC-Complete Blood Cnt No Di ffon 07-10-2024 Erythrocyte distribution width (RBC) [Ratio] 15.2 % High 11.6-14.6 [facility] Comment on above: Performed By: #### L 501.1650, L100.0500, L500.4050 ####[facility] [address] [place], [address] Hematocrit (Bld) [Volume fraction] 37.0 % Low 40-54 [facility] Comment on above: Performed By: #### L 501.9520, L100.0500, L500.4050 ####[facility] [address] [place], [address] Hemoglobin (Bld) [Mass/Vol] 12.0 g/dL Low 13.0-16.5 [facility] Comment on above: Performed By: #### L 501.9520, L100.0500, L500.4050 ####[facility] [address] [place], [address] MCH (RBC) [Entitic mass] 30.2 pg Normal 27.0-32.0 [facility] Comment on above: Performed By: #### L 501.9520, L100.0500, L500.4050 ####[facility] [address] [place], [address] MCHC (RBC) [Mass/Vol] 32.4 g/dL Normal 32-36 [facility] Comment on above: Performed By: #### L 501.9520, L100.0500, L500.4050 ####[facility] [address] [place], [address] MCV (RBC) [Entitic vol] 93.0 fL Normal 80-94 [facility] Comment on above: Performed By: #### L 501.9520, L100.0500, L500.4050 ####[facility] [address] [place], [address] Platelet mean volume (Bld) [Entitic vol] 11.5 fL Normal 6.2-12.0 [facility] Comment on above: Performed By: #### L 501.9520, L100.0500, L500.4050 ####[facility] [address] [place], [address] Platelets (Bld) [#/Vol] 136 10*3/uL Low 150-450 [facility] Comment on above: Performed By: #### L 501.9520, L100.0500, L500.4050 ####[facility] [address] [place], [address] RBC (Bld) [#/Vol] 3.98 10*6/uL Low 4.6-6.2 [facility] Comment on above: Performed By: #### L 501.9520, L100.0500, L500.4050 ####[facility] [address] [place], [address] RDW SD 51.6 fl High 35.1-43.9 [facility] Comment on above: Performed By: #### L 501.9520, L100.0500, L500.4050 ####[facility] [address] [place], [address] WBC (Bld) [#/Vol] 4.5 10*3/uL Normal 4.4-11.0 [facility] Comment on above: Performed By: #### L 501.9520, L100.0500, L500.4050 ####[facility] [address] [place], [address] Carbon dioxide, total [Moles /volume] in Central venous bloodOrdered By: Shari Hurd on 07-10-2024 CO2 [Moles/Vol] 23.5 mmol/L 21.0-32.0 [facility] Chloride assayOrdered By: Thai Hurd on 07-10-2024 Chloride [Moles/Vol] 105 mmol/L 98-108 [facility] Comprehensive Metabolic Prof ilon 07-10-2024 Albumin [Mass/Vol] 3.3 g/dL Low 3.4-4.8 [facility] Comment on above: Performed By: #### L 501.9520, L100.0500, L500.4050 ####[facility] [address] [place], [address] Albumin/Globulin [Mass ratio] 1.1 {ratio} Normal 0.9-2.4 [facility] Comment on above: Performed By: #### L 501.9520, L100.0500, L500.4050 ####[facility] [address] [place], [address] ALK PHOS 51 U/L Normal 40-129 [facility] Comment on above: Performed By: #### L 501.9520, L100.0500, L500.4050 ####[facility] [address] [place], [address] ALT [Catalytic activity/Vol] 7 U/L Normal <=46 [facility] Comment on above: Performed By: #### L 501.9520, L100.0500, L500.4050 ####[facility] [address] [place], [address] AST [Catalytic activity/Vol] 20 U/L Normal <=37 [facility] Comment on above: Performed By: #### L 501.9520, L100.0500, L500.4050 ####[facility] [address] [place], [address] Bilirubin [Mass/Vol] 0.54 mg/dL Normal 0.00-1.30 [facility] Comment on above: Performed By: #### L 501.9520, L100.0500, L500.4050 ####[facility] [address] [place], [address] BUN/CRE 6.5 RATIO Low 10-20 [facility] Comment on above: Performed By: #### L 501.9520, L100.0500, L500.4050 ####[facility] [address] [place], [address] Calcium [Mass/Vol] 8.9 mg/dL Normal 7.6-11.0 [facility] Comment on above: Performed By: #### L 501.9520, L100.0500, L500.4050 ####[facility] [address] [place], [address] Chloride [Moles/Vol] 105 mmol/L Normal 98-108 [facility] Comment on above: Performed By: #### L 501.9520, L100.0500, L500.4050 ####[facility] [address] [place], [address] CO2 [Moles/Vol] 23.5 mmol/L Normal 21.0-32.0 [facility] Comment on above: Performed By: #### L 501.9520, L100.0500, L500.4050 ####[facility] [address] [place], [address] Creatinine [Mass/Vol] 1.65 mg/dL High 0.70-1.20 [facility] Comment on above: Performed By: #### L 501.9520, L100.0500, L500.4050 ####[facility] [address] [place], [address] GAP 11 Normal 5-15 [facility] Comment on above: Performed By: #### L 501.9520, L100.0500, L500.4050 ####[facility] [address] [place], [address] GFR/1.73 sq M.predicted among non-blacks MDRD (S/P/Bld) [Vol rate/Area] 43 mL/min/{1.73_m2} Low >60 [facility] Comment on above: Result Comment: mL/m in/1.73m2 CKD-EPI Creatinine Equation (2020) Performed By: #### L 501.9520, L100.0500, L500.4050 ####[facility] [address] [place], [address] Globulin (S) [Mass/Vol] 3.0 g/dL Normal 2.2-4.2 [facility] Comment on above: Performed By: #### L 501.9520, L100.0500, L500.4050 ####[facility] [address] [place], [address] Glucose [Mass/Vol] 107 mg/dL High 70-99 [facility] Comment on above: Performed By: #### L 501.9520, L100.0500, L500.4050 ####[facility] [address] [place], [address] Potassium [Moles/Vol] 3.3 mmol/L Normal 3.3-5.1 [facility] Comment on above: Performed By: #### L 501.9520, L100.0500, L500.4050 ####[facility] [address] [place], [address] Sodium [Moles/Vol] 139 mmol/L Normal 133-145 [facility] Comment on above: Performed By: #### L 501.9520, L100.0500, L500.4050 ####[facility] [address] [place], [address] T PROT 6.4 g/dL Normal 5.9-8.4 [facility] Comment on above: Performed By: #### L 501.9520, L100.0500, L500.4050 ####[facility] [address] [place], [address] Urea nitrogen [Mass/Vol] 11 mg/dL Normal 4-19 [facility] Comment on above: Performed By: #### L 501.9520, L100.0500, L500.4050 ####[facility] [address] [place], [address] Erythrocyte distribution wid th (RBC) [Ratio]Ordered By: Shari Hurd on 07-10-2024 Erythrocyte distribution width (RBC) [Entitic vol] 51.6 fL High 35.1-43.9 [facility] Erythrocyte distribution wid th ratioOrdered By: Shari Hurd on 07-10-2024 Erythrocyte distribution width (RBC) [Ratio] 15.2 % High 11.6-14.6 [facility] Erythrocyte distribution wid th standard deviationOrdered By: Shari Hurd on 07-10-2024 Erythrocyte distribution width (RBC) [Ratio] 51.6 fl High 35.1-43.9 [facility] GFR/1.73 sq M.predicted nicole g non-blacks MDRD (S/P/Bld) [Vol rate/Area]Ordered By: Shari Hurd on 07-10-2024 Estimated GFR (MDRD) Non-Af Amer 43 Low >60 [facility] Comment on above: mL/min/1.73m2 CKD-EP I Creatinine Equation (2020) Glomerular filtration rate ( GFR) estimation/1.73 sq m using serum, plasma, or whole bOrdered By: Shari Hurd on 07-10-2024 GFR/1.73 sq M.predicted among non-blacks MDRD (S/P/Bld) [Vol rate/Area] 43 mL/min/{1.73_m2} Low >60 [facility] Comment on above: mL/min/1.73m2 CKD-EP I Creatinine Equation (2020) Hematocrit Auto (Bld) [Volum e fraction]Ordered By: Shari Hurd on 07-10-2024 Hematocrit (Bld) [Volume fraction] 37.0 % Low 40-54 [facility] Hemoglobin measurementOrdere d By: Shari Hurd on 07-10-2024 Hemoglobin (Bld) [Mass/Vol] 12.0 g/dL Low 13.0-16.5 [facility] Laboratory - Chemistry and C hemistry - challengeOrdered By: Shari Hurd on 07-10-2024 AST [Catalytic activity/Vol] 20 U/L <38 [facility] MCV (mean corpuscular volume ) determinationOrdered By: Shari Hurd on 07-10-2024 MCV (RBC) [Entitic vol] 93.0 fL 80-94 [facility] Mean corpuscular hemoglobin (MCH) determinationOrdered By: Shari Hurd on 07-10-2024 MCH (RBC) [Entitic mass] 30.2 pg 27.0-32.0 [facility] Mean corpuscular hemoglobin concentration (MCHC) determinationOrdered By: Shari Hurd on 07-10-2024 MCHC (RBC) [Mass/Vol] 32.4 g/dL 32-36 [facility] Mean platelet volume determi nationOrdered By: Shari Hurd on 07-10-2024 Platelet mean volume (Bld) [Entitic vol] 11.5 fL 6.2-12.0 [facility] No Panel InformationOrdered By: Shari Hurd on 07-10-2024 20 U/L <38 [facility] Platelet countOrdered By: Thai Hurd on 07-10-2024 Platelets (Bld) [#/Vol] 136 10*3/uL Low 150-450 [facility] Potassium (Unsp spec) [Mass/ Vol]Ordered By: Shari Hurd on 07-10-2024 Potassium [Moles/Vol] 3.3 mmol/L 3.3-5.1 [facility] Potassium measurement (mass/ volume)Ordered By: Shari Hurd on 07-10-2024 Potassium (Unsp spec) [Mass/Vol] 3.3 mmol/L 3.3-5.1 [facility] RBC Auto (Bld) [#/Vol]Ordere d By: Shari Hurd on 07-10-2024 RBC (Bld) [#/Vol] 3.98 10*6/uL Low 4.6-6.2 [facility] Serum creatinine measurement (mass/volume)Ordered By: Shari Hurd on 07-10-2024 Creatinine [Mass/Vol] 1.65 mg/dL High 0.70-1.20 [facility] Serum globulin measurementOr dered By: Shari Hurd on 07-10-2024 Globulin (S) [Mass/Vol] 3.0 g/dL 2.2-4.2 [facility] Serum glucose measurement (m ass/volume)Ordered By: Shari Hurd on 07-10-2024 Glucose [Mass/Vol] 107 mg/dL High 70-99 [facility] Serum or plasma alanine mancia otransferase (ALT) measurementOrdered By: Shari Hurd on 07-10-2024 ALT [Catalytic activity/Vol] 7 U/L <47 [facility] Serum or plasma albumin camille urement (mass/volume)Ordered By: Shari Hurd on 07-10-2024 Albumin [Mass/Vol] 3.3 g/dL Low 3.4-4.8 [facility] Serum or plasma albumin/glob ulin mass ratioOrdered By: Shari Hurd on 07-10-2024 Albumin/Globulin [Mass ratio] 1.1 {ratio} 0.9-2.4 [facility] Serum or plasma alkaline milton sphatase measurementOrdered By: Shari Hurd on 07-10-2024 ALP [Catalytic activity/Vol] 51 U/L 40-129 [facility] Serum or plasma calcium camille urement (mass/volume)Ordered By: Shari Hurd on 07-10-2024 Calcium [Mass/Vol] 8.9 mg/dL 7.6-11.0 [facility] Serum or plasma urea nitroge n measurement (mass/volume)Ordered By: Shari Hurd on 07-10-2024 Urea nitrogen [Mass/Vol] 11 mg/dL 4-19 [facility] Sodium levelOrdered By: Sarahy Hurd on 07-10-2024 Sodium [Moles/Vol] 139 mmol/L 133-145 [facility] TSH DL <= 0.005 mIU/L QnOrde red By: Shari Hurd on 07-10-2024 Thyroid Stimulating Hormone (TSH) 1.360 uIU/mL 0.300-4.20 0 [facility] TSH Qn 1.360 uIU/mL 0.300-4.20 0 [facility] Thyroid Stim Hormone (TSH)on 07-10-2024 TSH 1.360 uIU/mL Normal 0.300-4.20 0 [facility] Comment on above: Performed By: #### L 501.9520, L100.0500, L500.4050 ####[facility] [address] [place], [address] Total proteinOrdered By: Thomas Hurd on 07-10-2024 Protein [Mass/Vol] 6.4 g/dL 5.9-8.4 [facility] White blood cell (WBC) count Ordered By: Shari Hurd on 07-10-2024 WBC (Bld) [#/Vol] 4.5 10*3/uL 4.4-11.0 [facility] Absolute lymphocyte countOrd ered By: Ginger Espitia on 07-07-2024 Lymphocytes Auto (Unsp spec) [#/Vol] 0.77 10*3/uL Low 0.83-4.51 [facility] Absolute neutrophil countOrd ered By: Ginger Espitia on 07-07-2024 Neutrophils (Bld) [#/Vol] 3.9 10*3/uL 2.0-7.7 [facility] Anion gap in Serum or Plasma Ordered By: Ginger Espitia on 07-07-2024 Anion gap [Moles/Vol] 10 mmol/L 5-15 [facility] Automated lymphocyte count a s percentage of total leukocytesOrdered By: Ginger Espitia on 07-07-2024 Lymphocytes/100 WBC Auto (Unsp spec) 14.3 % Low 19-41 [facility] BUN/creatinine ratioOrdered By: Ginger Espitia on 07-07-2024 Urea nitrogen/Creatinine [Mass ratio] 7.8 mg/mg Low 10-20 [facility] Basic Metabolic Profile (BMP )on 07-07-2024 BUN/CRE 7.8 RATIO Low 10- [facility] Comment on above: Performed By: #### L 500.2500, L100.0100 ####[facility] [address] [place], [address] Calcium [Mass/Vol] 8.6 mg/dL Normal 7.6-11.0 [facility] Comment on above: Performed By: #### L 500.2500, L100.0100 ####[facility] [address] [place], [address] Chloride [Moles/Vol] 106 mmol/L Normal 98-108 [facility] Comment on above: Performed By: #### L 500.2500, L100.0100 ####[facility] [address] [place], [address] CO2 [Moles/Vol] 23.6 mmol/L Normal 21.0-32.0 [facility] Comment on above: Performed By: #### L 500.2500, L100.0100 ####[facility] [address] [place], [address] Creatinine [Mass/Vol] 1.54 mg/dL High 0.70-1.20 [facility] Comment on above: Performed By: #### L 500.2500, L100.0100 ####[facility] [address] [place], [address] ECRCL 45.68 ml/min Low 50-250 [facility] Comment on above: Performed By: #### L 500.2500, L100.0100 ####[facility] [address] [place], [address] GAP 10 Normal 5-15 [facility] Comment on above: Performed By: #### L 500.2500, L100.0100 ####[facility] [address] [place], [address] GFR/1.73 sq M.predicted among non-blacks MDRD (S/P/Bld) [Vol rate/Area] 47 mL/min/{1.73_m2} Low >60 [facility] Comment on above: Result Comment: mL/m in/1.73m2 CKD-EPI Creatinine Equation (2020) Performed By: #### L 500.2500, L100.0100 ####[facility] [address] [place], [address] Glucose [Mass/Vol] 88 mg/dL Normal 70-99 [facility] Comment on above: Performed By: #### L 500.2500, L100.0100 ####[facility] [address] [place], [address] Potassium [Moles/Vol] 3.6 mmol/L Normal 3.3-5.1 [facility] Comment on above: Performed By: #### L 500.2500, L100.0100 ####[facility] [address] [place], [address] Sodium [Moles/Vol] 140 mmol/L Normal 133-145 [facility] Comment on above: Performed By: #### L 500.2500, L100.0100 ####[facility] [address] [place], [address] Urea nitrogen [Mass/Vol] 12 mg/dL Normal 4-19 [facility] Comment on above: Performed By: #### L 500.2500, L100.0100 ####[facility] [address] [place], [address] Basophil percentageOrdered B y: Ginger Espitia on 07-07-2024 Basophils/100 WBC (Bld) 0.9 % 0-1 [facility] CBC W/Diff, Automatedon 06-27 Absolute Lymph 0.77 X10 3/uL Low 0.83-4.51 [facility] Comment on above: Performed By: #### L 500.2500, L100.0100 ####[facility] [address] [place], [address] Absolute Neut 3.9 X10 3/uL Normal 2.0-7.7 [facility] Comment on above: Performed By: #### L 500.2500, L100.0100 ####[facility] [address] [place], [address] Basophils/100 WBC (Bld) 0.9 % Normal 0-1 [facility] Comment on above: Performed By: #### L 500.2500, L100.0100 ####[facility] [address] [place], [address] Eosinophils/100 WBC (Bld) 2.4 % Normal 0-5 [facility] Comment on above: Performed By: #### L 500.2500, L100.0100 ####[facility] [address] [place], [address] Erythrocyte distribution width (RBC) [Ratio] 15.1 % High 11.6-14.6 [facility] Comment on above: Performed By: #### L 500.2500, L100.0100 ####[facility] [address] [place], [address] Hematocrit (Bld) [Volume fraction] 36.1 % Low 40-54 [facility] Comment on above: Performed By: #### L 500.2500, L100.0100 ####[facility] [address] [place], [address] Hemoglobin (Bld) [Mass/Vol] 11.5 g/dL Low 13.0-16.5 [facility] Comment on above: Performed By: #### L 500.2500, L100.0100 ####[facility] [address] [place], [address] IG% 0.900 Normal 0.0-0.9 [facility] Comment on above: Result Comment: IG% - Immature Granulocytes (promyelocytes, myelocytes andmetamyelocytes) > 1% indicates that a LEFT SHIFT is Present. Performed By: #### L 500.2500, L100.0100 ####[facility] [address] [place], [address] Lymphocytes/100 WBC (Bld) 14.3 % Low 19-41 [facility] Comment on above: Performed By: #### L 500.2500, L100.0100 ####[facility] [address] [place], [address] MCH (RBC) [Entitic mass] 29.6 pg Normal 27.0-32.0 [facility] Comment on above: Performed By: #### L 500.2500, L100.0100 ####[facility] [address] [place], [address] MCHC (RBC) [Mass/Vol] 31.9 g/dL Low 32-36 [facility] Comment on above: Performed By: #### L 500.2500, L100.0100 ####[facility] [address] [place], [address] MCV (RBC) [Entitic vol] 93.0 fL Normal 80-94 [facility] Comment on above: Performed By: #### L 500.2500, L100.0100 ####[facility] [address] [place], [address] Monocytes/100 WBC (Bld) 9.1 % Normal 0-10 [facility] Comment on above: Performed By: #### L 500.2500, L100.0100 ####[facility] [address] [place], [address] Neutrophils/100 WBC (Bld) 72.4 % High 47-70 [facility] Comment on above: Performed By: #### L 500.2500, L100.0100 ####[facility] [address] [place], [address] Nucleated RBC (Bld) [#/Vol] 0 10*3/uL Normal 0-5 [facility] Comment on above: Performed By: #### L 500.2500, L100.0100 ####[facility] [address] [place], [address] Platelet mean volume (Bld) [Entitic vol] 11.9 fL Normal 6.2-12.0 [facility] Comment on above: Performed By: #### L 500.2500, L100.0100 ####[facility] [address] [place], [address] Platelets (Bld) [#/Vol] 109 10*3/uL Low 150-450 [facility] Comment on above: Performed By: #### L 500.2500, L100.0100 ####[facility] [address] [place], [address] RBC (Bld) [#/Vol] 3.88 10*6/uL Low 4.6-6.2 [facility] Comment on above: Performed By: #### L 500.2500, L100.0100 ####[facility] [address] [place], [address] RDW SD 51.4 fl High 35.1-43.9 [facility] Comment on above: Performed By: #### L 500.2500, L100.0100 ####[facility] [address] [place], [address] WBC (Bld) [#/Vol] 5.4 10*3/uL Normal 4.4-11.0 [facility] Comment on above: Performed By: #### L 500.2500, L100.0100 ####[facility] [address] [place], [address] Carbon dioxide, total [Moles /volume] in Central venous bloodOrdered By: Ginger Espitia on 07-07-2024 CO2 [Moles/Vol] 23.6 mmol/L 21.0-32.0 [facility] Chloride assayOrdered By: Helena Espitia on 2025 Chloride [Moles/Vol] 106 mmol/L 98-108 [facility] Eosinophil percentageOrdered By: Ginger Espitia on 07-07-2024 Eosinophils/100 WBC (Bld) 2.4 % 0-5 [facility] Erythrocyte distribution wid th (RBC) [Ratio]Ordered By: Ginger Espitia on 07-07-2024 Erythrocyte distribution width (RBC) [Entitic vol] 51.4 fL High 35.1-43.9 [facility] Erythrocyte distribution wid th ratioOrdered By: Ginger Espitia on 07-07-2024 Erythrocyte distribution width (RBC) [Ratio] 15.1 % High 11.6-14.6 [facility] Erythrocyte distribution wid th standard deviationOrdered By: Ginger Espitia on 07-07-2024 Erythrocyte distribution width (RBC) [Ratio] 51.4 fl High 35.1-43.9 [facility] Estimation of creatinine jerel aranceOrdered By: Ginger Espitia on 07-07-2024 Estimated Creatinine Clearance Calc 45.68 ml/min Low 50-250 [facility] GFR/1.73 sq M.predicted nicole g non-blacks MDRD (S/P/Bld) [Vol rate/Area]Ordered By: Ginger Espitia on 07-07-2024 Estimated GFR (MDRD) Non-Af Amer 47 Low >60 [facility] Comment on above: mL/min/1.73m2 CKD-EP I Creatinine Equation (2020) Glomerular filtration rate ( GFR) estimation/1.73 sq m using serum, plasma, or whole bOrdered By: Ginger Espitia on 07-07-2024 GFR/1.73 sq M.predicted among non-blacks MDRD (S/P/Bld) [Vol rate/Area] 47 mL/min/{1.73_m2} Low >60 [facility] Comment on above: mL/min/1.73m2 CKD-EP I Creatinine Equation (2020) Hematocrit Auto (Bld) [Volum e fraction]Ordered By: Ginger Espitia on 07-07-2024 Hematocrit (Bld) [Volume fraction] 36.1 % Low 40-54 [facility] Hemoglobin measurementOrdere d By: Ginger Espitia on 07-07-2024 Hemoglobin (Bld) [Mass/Vol] 11.5 g/dL Low 13.0-16.5 [facility] Immature granulocytes/100 WB C Auto (Bld)Ordered By: Ginger Espitia on 07-07-2024 Immature granulocytes/100 WBC (Bld) 0.900 % 0.0-0.9 [facility] Comment on above: IG% - Immature Granu locytes (promyelocytes, myelocytes and metamyelocytes) > 1% indicates that a LEFT SHIFT is Present. Lymphocytes Auto (Unsp spec) [#/Vol]Ordered By: Ginger Espitia on 07-07-2024 Lymphocytes (Bld) [#/Vol] 0.77 10*3/uL Low 0.83-4.51 [facility] Lymphocytes/100 WBC Auto (Un sp spec)Ordered By: Ginger Espitia on 07-07-2024 Lymphocytes/100 WBC (Bld) 14.3 % Low 19-41 [facility] MCV (mean corpuscular volume ) determinationOrdered By: Ginger Espitia on 07-07-2024 MCV (RBC) [Entitic vol] 93.0 fL 80-94 [facility] Mean corpuscular hemoglobin (MCH) determinationOrdered By: Ginger Espitia on 07-07-2024 MCH (RBC) [Entitic mass] 29.6 pg 27.0-32.0 [facility] Mean corpuscular hemoglobin concentration (MCHC) determinationOrdered By: Ginger Espitia on 07-07-2024 MCHC (RBC) [Mass/Vol] 31.9 g/dL Low 32-36 [facility] Mean platelet volume determi nationOrdered By: Ginger Espitia on 07-07-2024 Platelet mean volume (Bld) [Entitic vol] 11.9 fL 6.2-12.0 [facility] Monocyte percentageOrdered B y: Ginger Espitia on 07-07-2024 Monocytes/100 WBC (Bld) 9.1 % 0-10 [facility] Neutrophil percentageOrdered By: Ginger Espitia on 07-07-2024 Neutrophils/100 WBC (Bld) 72.4 % High 47-70 [facility] Nucleated red blood cell per centageOrdered By: Ginger Espitia on 07-07-2024 Nucleated RBC/100 WBC (Bld) [Ratio] 0 % 0-5 [facility] Platelet countOrdered By: Helena Espitia on 07-07-2024 Platelets (Bld) [#/Vol] 109 10*3/uL Low 150-450 [facility] Potassium (Unsp spec) [Mass/ Vol]Ordered By: Ginger Espitia on 07-07-2024 Potassium [Moles/Vol] 3.6 mmol/L 3.3-5.1 [facility] Potassium measurement (mass/ volume)Ordered By: Ginger Espitia on 07-07-2024 Potassium (Unsp spec) [Mass/Vol] 3.6 mmol/L 3.3-5.1 [facility] RBC Auto (Bld) [#/Vol]Ordere d By: iGnger Espitia on 07-07-2024 RBC (Bld) [#/Vol] 3.88 10*6/uL Low 4.6-6.2 [facility] Serum creatinine measurement (mass/volume)Ordered By: Ginger Espitia on 07-07-2024 Creatinine [Mass/Vol] 1.54 mg/dL High 0.70-1.20 [facility] Serum glucose measurement (m ass/volume)Ordered By: Ginger Espitia on 07-07-2024 Glucose [Mass/Vol] 88 mg/dL 70-99 [facility] Serum or plasma calcium camille urement (mass/volume)Ordered By: Ginger Espitia on 07-07-2024 Calcium [Mass/Vol] 8.6 mg/dL 7.6-11.0 [facility] Serum or plasma urea nitroge n measurement (mass/volume)Ordered By: Ginger Espitia on 07-07-2024 Urea nitrogen [Mass/Vol] 12 mg/dL 4-19 [facility] Sodium levelOrdered By: Carol Espitia on 07-07-2024 Sodium [Moles/Vol] 140 mmol/L 133-145 [facility] White blood cell (WBC) count Ordered By: Ginger Espitia on 07-07-2024 WBC (Bld) [#/Vol] 5.4 10*3/uL 4.4-11.0 [facility] ACT Activated Clotting Timeo n 07-06-2024 ACTk CLOT TIME 227 sec High 74-137 [facility] Comment on above: Performed By: #### L 9100.0100 ####[facility] [address] [place], [address] Activated clotting timeOrder ed By: Ginger Espitia on 07-06-2024 Activated Clotting Time 227 sec High 74-137 [facility] Basic Metabolic Profile (BMP )on 07-06-2024 BUN/CRE 9.1 RATIO Low 10-20 [facility] Comment on above: Performed By: #### L 100.0100, L500.2500 ####[facility] [address] [place], [address] Calcium [Mass/Vol] 9.1 mg/dL Normal 7.6-11.0 [facility] Comment on above: Performed By: #### L 100.0100, L500.2500 ####[facility] [address] [place], [address] Chloride [Moles/Vol] 106 mmol/L Normal 98-108 [facility] Comment on above: Performed By: #### L 100.0100, L500.2500 ####[facility] [address] [place], [address] CO2 [Moles/Vol] 20.8 mmol/L Low 21.0-32.0 [facility] Comment on above: Performed By: #### L 100.0100, L500.2500 ####[facility] [address] [place], [address] Creatinine [Mass/Vol] 1.44 mg/dL High 0.70-1.20 [facility] Comment on above: Performed By: #### L 100.0100, L500.2500 ####[facility] [address] [place], [address] ECRCL 48.85 ml/min Low 50-250 [facility] Comment on above: Performed By: #### L 100.0100, L500.2500 ####[facility] [address] [place], [address] GAP 13 Normal 5-15 [facility] Comment on above: Performed By: #### L 100.0100, L500.2500 ####[facility] [address] [place], [address] GFR/1.73 sq M.predicted among non-blacks MDRD (S/P/Bld) [Vol rate/Area] 51 mL/min/{1.73_m2} Low >60 [facility] Comment on above: Result Comment: mL/m in/1.73m2 CKD-EPI Creatinine Equation (2020) Performed By: #### L 100.0100, L500.2500 ####[facility] [address] [place], [address] Glucose [Mass/Vol] 111 mg/dL High 70-99 [facility] Comment on above: Performed By: #### L 100.0100, L500.2500 ####[facility] [address] [place], [address] Potassium [Moles/Vol] 3.5 mmol/L Normal 3.3-5.1 [facility] Comment on above: Performed By: #### L 100.0100, L500.2500 ####[facility] [address] [place], [address] Sodium [Moles/Vol] 139 mmol/L Normal 133-145 [facility] Comment on above: Performed By: #### L 100.0100, L500.2500 ####[facility] [address] [place], [address] Urea nitrogen [Mass/Vol] 13 mg/dL Normal 4-19 [facility] Comment on above: Performed By: #### L 100.0100, L500.2500 ####[facility] [address] [place], [address] CBC W/Diff, Automatedon 04- 0-2024 Absolute Lymph 1.21 X10 3/uL Normal 0.83-4.51 [facility] Comment on above: Performed By: #### L 100.0100, L500.2500 ####[facility] [address] [place], [address] Absolute Neut 3.0 X10 3/uL Normal 2.0-7.7 [facility] Comment on above: Performed By: #### L 100.0100, L500.2500 ####[facility] [address] [place], [address] Basophils/100 WBC (Bld) 0.8 % Normal 0-1 [facility] Comment on above: Performed By: #### L 100.0100, L500.2500 ####[facility] [address] [place], [address] Eosinophils/100 WBC (Bld) 4.4 % Normal 0-5 [facility] Comment on above: Performed By: #### L 100.0100, L500.2500 ####[facility] [address] [place], [address] Erythrocyte distribution width (RBC) [Ratio] 15.0 % High 11.6-14.6 [facility] Comment on above: Performed By: #### L 100.0100, L500.2500 ####[facility] [address] [place], [address] Hematocrit (Bld) [Volume fraction] 39.3 % Low 40-54 [facility] Comment on above: Performed By: #### L 100.0100, L500.2500 ####[facility] [address] [place], [address] Hemoglobin (Bld) [Mass/Vol] 12.7 g/dL Low 13.0-16.5 [facility] Comment on above: Performed By: #### L 100.0100, L500.2500 ####[facility] [address] [place], [address] IG% 0.600 Normal 0.0-0.9 [facility] Comment on above: Result Comment: IG% - Immature Granulocytes (promyelocytes, myelocytes andmetamyelocytes) > 1% indicates that a LEFT SHIFT is Present. Performed By: #### L 100.0100, L500.2500 ####[facility] [address] [place], [address] Lymphocytes/100 WBC (Bld) 24.4 % Normal 19-41 [facility] Comment on above: Performed By: #### L 100.0100, L500.2500 ####[facility] [address] [place], [address] MCH (RBC) [Entitic mass] 30.0 pg Normal 27.0-32.0 [facility] Comment on above: Performed By: #### L 100.0100, L500.2500 ####[facility] [address] [place], [address] MCHC (RBC) [Mass/Vol] 32.3 g/dL Normal 32-36 [facility] Comment on above: Performed By: #### L 100.0100, L500.2500 ####[facility] [address] [place], [address] MCV (RBC) [Entitic vol] 92.9 fL Normal 80-94 [facility] Comment on above: Performed By: #### L 100.0100, L500.2500 ####[facility] [address] [place], [address] Monocytes/100 WBC (Bld) 9.7 % Normal 0-10 [facility] Comment on above: Performed By: #### L 100.0100, L500.2500 ####[facility] [address] [place], [address] Neutrophils/100 WBC (Bld) 60.1 % Normal 47-70 [facility] Comment on above: Performed By: #### L 100.0100, L500.2500 ####[facility] [address] [place], [address] Nucleated RBC (Bld) [#/Vol] 0 10*3/uL Normal 0-5 [facility] Comment on above: Performed By: #### L 100.0100, L500.2500 ####[facility] [address] [place], [address] Platelet mean volume (Bld) [Entitic vol] 11.7 fL Normal 6.2-12.0 [facility] Comment on above: Performed By: #### L 100.0100, L500.2500 ####[facility] [address] [place], [address] Platelets (Bld) [#/Vol] 115 10*3/uL Low 150-450 [facility] Comment on above: Performed By: #### L 100.0100, L500.2500 ####[facility] [address] [place], [address] RBC (Bld) [#/Vol] 4.23 10*6/uL Low 4.6-6.2 [facility] Comment on above: Performed By: #### L 100.0100, L500.2500 ####[facility] [address] [place], [address] RDW SD 51.1 fl High 35.1-43.9 [facility] Comment on above: Performed By: #### L 100.0100, L500.2500 ####[facility] [address] [place], [address] WBC (Bld) [#/Vol] 5.0 10*3/uL Normal 4.4-11.0 [facility] Comment on above: Performed By: #### L 100.0100, L500.2500 ####[facility] [address] [place], [address] Culture, Blood (WB)on 2024 CUB Blood cultures x2, f rom two different sites No growth in 5 days. Normal [facility] Comment on above: Performed By: #### M 200.1000 ####[facility] [address] [place], [address] CUB Blood cultures x2, f rom two different sites No growth in 5 days. Normal [facility] Comment on above: Performed By: #### M 200.1000 ####[facility] [address] [place], [address] MR/POSTOP.ANEon 07-06-2024 MR/POSTOP.ANE Normal [facility] Operative Reporton Operative Report Normal [facility] Bilirubin, totalOrdered By: Ginger Espitia on 07-05-2024 Bilirubin [Mass/Vol] 0.30 mg/dL 0.00-1.30 [facility] CBC-Complete Blood Cnt No Di ffon 07-05-2024 Erythrocyte distribution width (RBC) [Ratio] 15.0 % High 11.6-14.6 [facility] Comment on above: Performed By: #### L 501.2300, L501.5200, L100.0500, L500.4050 ####[facility] [address] [place], [address] Hematocrit (Bld) [Volume fraction] 37.9 % Low 40-54 [facility] Comment on above: Performed By: #### L 501.2300, L501.5200, L100.0500, L500.4050 ####[facility] [address] [place], [address] Hemoglobin (Bld) [Mass/Vol] 11.9 g/dL Low 13.0-16.5 [facility] Comment on above: Performed By: #### L 501.2300, L501.5200, L100.0500, L500.4050 ####[facility] [address] [place], [address] MCH (RBC) [Entitic mass] 29.5 pg Normal 27.0-32.0 [facility] Comment on above: Performed By: #### L 501.2300, L501.5200, L100.0500, L500.4050 ####[facility] [address] [place], [address] MCHC (RBC) [Mass/Vol] 31.4 g/dL Low 32-36 [facility] Comment on above: Performed By: #### L 501.2300, L501.5200, L100.0500, L500.4050 ####[facility] [address] [place], [address] MCV (RBC) [Entitic vol] 93.8 fL Normal 80-94 [facility] Comment on above: Performed By: #### L 501.2300, L501.5200, L100.0500, L500.4050 ####[facility] [address] [place], [address] Platelet mean volume (Bld) [Entitic vol] 11.8 fL Normal 6.2-12.0 [facility] Comment on above: Performed By: #### L 501.2300, L501.5200, L100.0500, L500.4050 ####[facility] [address] [place], [address] Platelets (Bld) [#/Vol] 106 10*3/uL Low 150-450 [facility] Comment on above: Performed By: #### L 501.2300, L501.5200, L100.0500, L500.4050 ####[facility] [address] [place], [address] RBC (Bld) [#/Vol] 4.04 10*6/uL Low 4.6-6.2 [facility] Comment on above: Performed By: #### L 501.2300, L501.5200, L100.0500, L500.4050 ####[facility] [address] [place], [address] RDW SD 51.8 fl High 35.1-43.9 [facility] Comment on above: Performed By: #### L 501.2300, L501.5200, L100.0500, L500.4050 ####[facility] [address] [place], [address] WBC (Bld) [#/Vol] 5.4 10*3/uL Normal 4.4-11.0 [facility] Comment on above: Performed By: #### L 501.2300, L501.5200, L100.0500, L500.4050 ####[facility] [address] [place], [address] Comprehensive Metabolic Prof [facility] 07-05-2024 Albumin [Mass/Vol] 3.3 g/dL Low 3.4-4.8 [facility] Comment on above: Performed By: #### L 501.2300, L501.5200, L100.0500, L500.4050 ####[facility] [address] [place], [address] Albumin/Globulin [Mass ratio] 1.0 {ratio} Normal 0.9-2.4 [facility] Comment on above: Performed By: #### L 501.2300, L501.5200, L100.0500, L500.4050 ####[facility] [address] [place], [address] ALK PHOS 47 U/L Normal 40-129 [facility] Comment on above: Performed By: #### L 501.2300, L501.5200, L100.0500, L500.4050 ####[facility] [address] [place], [address] ALT [Catalytic activity/Vol] 6 U/L Normal <=46 [facility] Comment on above: Performed By: #### L 501.2300, L501.5200, L100.0500, L500.4050 ####[facility] [address] [place], [address] AST [Catalytic activity/Vol] 14 U/L Normal <=37 [facility] Comment on above: Performed By: #### L 501.2300, L501.5200, L100.0500, L500.4050 ####[facility] [address] [place], [address] Bilirubin [Mass/Vol] 0.30 mg/dL Normal 0.00-1.30 [facility] Comment on above: Performed By: #### L 501.2300, L501.5200, L100.0500, L500.4050 ####[facility] [address] [place], [address] BUN/CRE 9.6 RATIO Low 10-20 [facility] Comment on above: Performed By: #### L 501.2300, L501.5200, L100.0500, L500.4050 ####[facility] [address] [place], [address] Calcium [Mass/Vol] 8.9 mg/dL Normal 7.6-11.0 [facility] Comment on above: Performed By: #### L 501.2300, L501.5200, L100.0500, L500.4050 ####[facility] [address] [place], [address] Chloride [Moles/Vol] 107 mmol/L Normal 98-108 [facility] Comment on above: Performed By: #### L 501.2300, L501.5200, L100.0500, L500.4050 ####[facility] [address] [place], [address] CO2 [Moles/Vol] 22.2 mmol/L Normal 21.0-32.0 [facility] Comment on above: Performed By: #### L 501.2300, L501.5200, L100.0500, L500.4050 ####[facility] [address] [place], [address] Creatinine [Mass/Vol] 1.53 mg/dL High 0.70-1.20 [facility] Comment on above: Performed By: #### L 501.2300, L501.5200, L100.0500, L500.4050 ####[facility] [address] [place], [address] ECRCL 45.98 ml/min Low 50-250 [facility] Comment on above: Performed By: #### L 501.2300, L501.5200, L100.0500, L500.4050 ####[facility] [address] [place], [address] GAP 10 Normal 5-15 [facility] Comment on above: Performed By: #### L 501.2300, L501.5200, L100.0500, L500.4050 ####[facility] [address] [place], [address] GFR/1.73 sq M.predicted among non-blacks MDRD (S/P/Bld) [Vol rate/Area] 47 mL/min/{1.73_m2} Low >60 [facility] Comment on above: Result Comment: mL/m in/1.73m2 CKD-EPI Creatinine Equation (2020) Performed By: #### L 501.2300, L501.5200, L100.0500, L500.4050 ####[facility] [address] [place], [address] Globulin (S) [Mass/Vol] 3.2 g/dL Normal 2.2-4.2 [facility] Comment on above: Performed By: #### L 501.2300, L501.5200, L100.0500, L500.4050 ####[facility] [address] [place], [address] Glucose [Mass/Vol] 88 mg/dL Normal 70-99 [facility] Comment on above: Performed By: #### L 501.2300, L501.5200, L100.0500, L500.4050 ####[facility] [address] [place], [address] Potassium [Moles/Vol] 3.5 mmol/L Normal 3.3-5.1 [facility] Comment on above: Performed By: #### L 501.2300, L501.5200, L100.0500, L500.4050 ####[facility] [address] [place], [address] Sodium [Moles/Vol] 140 mmol/L Normal 133-145 [facility] Comment on above: Performed By: #### L 501.2300, L501.5200, L100.0500, L500.4050 ####[facility] [address] [place], [address] T PROT 6.5 g/dL Normal 5.9-8.4 [facility] Comment on above: Performed By: #### L 501.2300, L501.5200, L100.0500, L500.4050 ####[facility] [address] [place], [address] Urea nitrogen [Mass/Vol] 15 mg/dL Normal 4-19 [facility] Comment on above: Performed By: #### L 501.2300, L501.5200, L100.0500, L500.4050 ####[facility] [address] [place], [address] Laboratory - Chemistry and C hemistry - challengeOrdered By: Ginger Espitia on 07-05-2024 AST [Catalytic activity/Vol] 14 U/L <38 [facility] Magnesiumon 07-05-2024 Magnesium [Mass/Vol] 1.9 mg/dL Normal 1.5-2.2 [facility] Comment on above: Performed By: #### L 501.2300, L501.5200, L100.0500, L500.4050 ####[facility] [address] [place], [address] Magnesium (Unsp spec) [Mass/ Vol]Ordered By: Ginger Espitia on 07-05-2024 Magnesium [Mass/Vol] 1.9 mg/dL 1.5-2.2 [facility] Magnesium measurement (mass/ volume)Ordered By: Ginger Espitia on 07-05-2024 Magnesium (Unsp spec) [Mass/Vol] 1.9 mg/dL 1.5-2.2 [facility] No Panel InformationOrdered By: Ginger Espitia on 07-05-2024 14 U/L <38 [facility] Phosphoruson 07-05-2024 Phosphate [Mass/Vol] 3.3 mg/dL Normal 2.7-4.5 [facility] Comment on above: Performed By: #### L 501.2300, L501.5200, L100.0500, L500.4050 ####[facility] [address] [place], [address] Serum globulin measurementOr dered By: Ginger Espitia on 07-05-2024 Globulin (S) [Mass/Vol] 3.2 g/dL 2.2-4.2 [facility] Serum or plasma alanine mancia otransferase (ALT) measurementOrdered By: Ginger Espitia on 07-05-2024 ALT [Catalytic activity/Vol] 6 U/L <47 [facility] Serum or plasma albumin camille urement (mass/volume)Ordered By: Ginger Espitia on 07-05-2024 Albumin [Mass/Vol] 3.3 g/dL Low 3.4-4.8 [facility] Serum or plasma albumin/glob ulin mass ratioOrdered By: Ginger Espitia on 07-05-2024 Albumin/Globulin [Mass ratio] 1.0 {ratio} 0.9-2.4 [facility] Serum or plasma alkaline milton sphatase measurementOrdered By: Ginger Espitia on 07-05-2024 ALP [Catalytic activity/Vol] 47 U/L 40-129 [facility] Serum phosphorus measurement Ordered By: Ginger Espitia on 07-05-2024 Phosphorus Level 3.3 mg/dL 2.7-4.5 [facility] Total proteinOrdered By: Reena Espitia on 07-05-2024 Protein [Mass/Vol] 6.5 g/dL 5.9-8.4 [facility] 12 Lead EKGon 07-04-2024 12 Lead EKG Normal [facility] Basic Metabolic Profile (BMP )on 07-04-2024 BUN/CRE 9.8 RATIO Low 10-20 [facility] Comment on above: Performed By: #### L 100.0500, L500.2500 ####[facility] [address] [place], [address] Calcium [Mass/Vol] 8.9 mg/dL Normal 7.6-11.0 [facility] Comment on above: Performed By: #### L 100.0500, L500.2500 ####[facility] [address] [place], [address] Chloride [Moles/Vol] 106 mmol/L Normal 98-108 [facility] Comment on above: Performed By: #### L 100.0500, L500.2500 ####[facility] [address] [place], [address] CO2 [Moles/Vol] 20.8 mmol/L Low 21.0-32.0 [facility] Comment on above: Performed By: #### L 100.0500, L500.2500 ####[facility] [address] [place], [address] Creatinine [Mass/Vol] 1.58 mg/dL High 0.70-1.20 [facility] Comment on above: Performed By: #### L 100.0500, L500.2500 ####[facility] [address] [place], [address] ECRCL 44.52 ml/min Low 50-250 [facility] Comment on above: Performed By: #### L 100.0500, L500.2500 ####[facility] [address] [place], [address] GAP 12 Normal 5-15 [facility] Comment on above: Performed By: #### L 100.0500, L500.2500 ####[facility] [address] [place], [address] GFR/1.73 sq M.predicted among non-blacks MDRD (S/P/Bld) [Vol rate/Area] 46 mL/min/{1.73_m2} Low >60 [facility] Comment on above: Result Comment: mL/m in/1.73m2 CKD-EPI Creatinine Equation (2020) Performed By: #### L 100.0500, L500.2500 ####[facility] [address] [place], [address] Glucose [Mass/Vol] 112 mg/dL High 70-99 [facility] Comment on above: Performed By: #### L 100.0500, L500.2500 ####[facility] [address] [place], [address] Potassium [Moles/Vol] 3.7 mmol/L Normal 3.3-5.1 [facility] Comment on above: Performed By: #### L 100.0500, L500.2500 ####[facility] [address] [place], [address] Sodium [Moles/Vol] 139 mmol/L Normal 133-145 [facility] Comment on above: Performed By: #### L 100.0500, L500.2500 ####[facility] [address] [place], [address] Urea nitrogen [Mass/Vol] 16 mg/dL Normal 4-19 [facility] Comment on above: Performed By: #### L 100.0500, L500.2500 ####[facility] [address] [place], [address] CBC-Complete Blood Cnt No Di ffon 07-04-2024 Erythrocyte distribution width (RBC) [Ratio] 15.0 % High 11.6-14.6 [facility] Comment on above: Performed By: #### L 100.0500, L500.2500 ####[facility] [address] [place], [address] Hematocrit (Bld) [Volume fraction] 39.4 % Low 40-54 [facility] Comment on above: Performed By: #### L 100.0500, L500.2500 ####[facility] [address] [place], [address] Hemoglobin (Bld) [Mass/Vol] 12.5 g/dL Low 13.0-16.5 [facility] Comment on above: Performed By: #### L 100.0500, L500.2500 ####[facility] [address] [place], [address] MCH (RBC) [Entitic mass] 29.8 pg Normal 27.0-32.0 [facility] Comment on above: Performed By: #### L 100.0500, L500.2500 ####[facility] [address] [place], [address] MCHC (RBC) [Mass/Vol] 31.7 g/dL Low 32-36 [facility] Comment on above: Performed By: #### L 100.0500, L500.2500 ####[facility] [address] [place], [address] MCV (RBC) [Entitic vol] 93.8 fL Normal 80-94 [facility] Comment on above: Performed By: #### L 100.0500, L500.2500 ####[facility] [address] [place], [address] Platelet mean volume (Bld) [Entitic vol] 11.5 fL Normal 6.2-12.0 [facility] Comment on above: Performed By: #### L 100.0500, L500.2500 ####[facility] [address] [place], [address] Platelets (Bld) [#/Vol] 100 10*3/uL Low 150-450 [facility] Comment on above: Performed By: #### L 100.0500, L500.2500 ####[facility] [address] [place], [address] RBC (Bld) [#/Vol] 4.20 10*6/uL Low 4.6-6.2 [facility] Comment on above: Performed By: #### L 100.0500, L500.2500 ####[facility] [id number] [place], [address] RDW SD 52.1 fl High 35.1-43.9 [facility] Comment on above: Performed By: #### L 100.0500, L500.2500 ####[facility] [id number] [place], [address] WBC (Bld) [#/Vol] 6.1 10*3/uL Normal 4.4-11.0 [facility] Comment on above: Performed By: #### L 100.0500, L500.2500 ####[facility] [id number] [place], [address] Consultation - Surgicalon Consultation - Surgical Normal [facility] EGD Reporton 07-04-2024 EGD Report Normal [facility] Electrocardiogram reportOrde red By: Oni Lundberg on 07-04-2024 EKG study [facility] [address] [place] [address] 12 Lead EKG 07/04/24 0459 MR#: [id number] Acct: [id number] Name: EMELIA JOHNSON Rep #:[id number] : 1950 74 From: Oni Lundberg MD Attending Dr: DO Kd Lopez tatus: ADM IN Ordering Dr: Brandon David MD Date: 07/04/24 Location: [facility] Sex: M C Admitted: 07/01/24 Test Reason : PRE-OP Blood Pressure : */* mmHG Vent. Rate : 79 BPM Atrial Rate : 79 BPM P-R Int : 168 ms QRS Dur : 142 ms QT Int : 404 ms P-R-T Axes : 46 42 42 degrees QTcB Int : 463 ms Normal sinus rhythm Right bundle branch block Abnormal ECG When compared with ECG of 11-Jan-2024 00:27, Premature ventricular complexes are no longer Present Left anterior fascicular block is no longer Present Confirmed by ONI LUNDBERG MD ([id number]), senior editor JUDIE LAWSON ([id number]) on 07/04/2024 8:07:20 AM Referred By: Confirmed By: ONI LUNDBERG MD 07/04/24 0807 Date _ Oni Lundberg MD CC: Jenae Santamaria MD; Dr. Brandon David MD; Dr. Ginger Espitia DO ~ Signed [facility] Other Phone: MR/POSTOP.ANEon 07-04-2024 MR/POSTOP.ANE Normal [facility] MR/HHJVGNDD3ms 07-04-2024 MR/POSTOPAN2 Normal [facility] Surgery Specimen Level Maninder 07-04-2024 Surgery Specimen Level IV Normal [facility] Comment on above: Performed By: #### P SUIV ####[facility] [address] [place], [address] Basic Metabolic Profile (BMP )on 07-03-2024 BUN/CRE 11.4 RATIO Normal 10-20 [facility] Comment on above: Performed By: #### L 100.0500, L500.2500 ####[facility] [address] [place], [address] Calcium [Mass/Vol] 8.4 mg/dL Normal 7.6-11.0 [facility] Comment on above: Performed By: #### L 100.0500, L500.2500 ####[facility] [address] [place], [address] Chloride [Moles/Vol] 107 mmol/L Normal 98-108 [facility] Comment on above: Performed By: #### L 100.0500, L500.2500 ####[facility] [address] [place], [address] CO2 [Moles/Vol] 21.7 mmol/L Normal 21.0-32.0 [facility] Comment on above: Performed By: #### L 100.0500, L500.2500 ####[facility] [address] [place], [address] Creatinine [Mass/Vol] 1.76 mg/dL High 0.70-1.20 [facility] Comment on above: Performed By: #### L 100.0500, L500.2500 ####[facility] [address] [place], [address] ECRCL 39.97 ml/min Low 50-250 [facility] Comment on above: Performed By: #### L 100.0500, L500.2500 ####[facility] [address] [place], [address] GAP 10 Normal 5-15 [facility] Comment on above: Performed By: #### L 100.0500, L500.2500 ####[facility] [address] [place], [address] GFR/1.73 sq M.predicted among non-blacks MDRD (S/P/Bld) [Vol rate/Area] 40 mL/min/{1.73_m2} Low >60 [facility] Comment on above: Result Comment: mL/m in/1.73m2 CKD-EPI Creatinine Equation (2020) Performed By: #### L 100.0500, L500.2500 ####[facility] [address] [place], [address] Glucose [Mass/Vol] 98 mg/dL Normal 70-99 [facility] Comment on above: Performed By: #### L 100.0500, L500.2500 ####[facility] [address] [place], [address] Potassium [Moles/Vol] 3.8 mmol/L Normal 3.3-5.1 [facility] Comment on above: Performed By: #### L 100.0500, L500.2500 ####[facility] [address] [place], [address] Sodium [Moles/Vol] 138 mmol/L Normal 133-145 [facility] Comment on above: Performed By: #### L 100.0500, L500.2500 ####[facility] [address] [place], [address] Urea nitrogen [Mass/Vol] 20 mg/dL High 4-19 [facility] Comment on above: Performed By: #### L 100.0500, L500.2500 ####[facility] [address] [place], [address] CBC-Complete Blood Cnt No Di ffon 07-03-2024 Erythrocyte distribution width (RBC) [Ratio] 15.1 % High 11.6-14.6 [facility] Comment on above: Performed By: #### L 100.0500, L500.2500 ####[facility] [address] [place], [address] Hematocrit (Bld) [Volume fraction] 37.3 % Low 40-54 [facility] Comment on above: Performed By: #### L 100.0500, L500.2500 ####[facility] [address] [place], [address] Hemoglobin (Bld) [Mass/Vol] 11.7 g/dL Low 13.0-16.5 [facility] Comment on above: Performed By: #### L 100.0500, L500.2500 ####[facility] [address] [place], [address] MCH (RBC) [Entitic mass] 29.8 pg Normal 27.0-32.0 [facility] Comment on above: Performed By: #### L 100.0500, L500.2500 ####[facility] [address] [place], [address] MCHC (RBC) [Mass/Vol] 31.4 g/dL Low 32-36 [facility] Comment on above: Performed By: #### L 100.0500, L500.2500 ####[facility] [address] [place], [address] MCV (RBC) [Entitic vol] 94.9 fL High 80-94 [facility] Comment on above: Performed By: #### L 100.0500, L500.2500 ####[facility] [address] [place], [address] Platelet mean volume (Bld) [Entitic vol] 12.4 fL High 6.2-12.0 [facility] Comment on above: Performed By: #### L 100.0500, L500.2500 ####[facility] [address] [place], [address] Platelets (Bld) [#/Vol] 86 10*3/uL Low 150-450 [facility] Comment on above: Performed By: #### L 100.0500, L500.2500 ####[facility] [address] [place], [address] RBC (Bld) [#/Vol] 3.93 10*6/uL Low 4.6-6.2 [facility] Comment on above: Performed By: #### L 100.0500, L500.2500 ####[facility] [address] [place], [address] RDW SD 53.0 fl High 35.1-43.9 [facility] Comment on above: Performed By: #### L 100.0500, L500.2500 ####[facility] [address] [place], [address] WBC (Bld) [#/Vol] 8.2 10*3/uL Normal 4.4-11.0 [facility] Comment on above: Performed By: #### L 100.0500, L500.2500 ####[facility] [address] [place], [address] CTA Abd w/Runoff W/WO Contra ston 07-03-2024 CTA Abd w/Runoff W/WO Contrast Normal [facility] Lactic Acidon 07-03-2024 Lactate [Moles/Vol] 2.9 mmol/L Invalid Interpretation Code 0.0-2.0 [facility] Comment on above: Order Comment: Y Result Comment: Crit ical Result(s) Called at 1435: by: RIKY MALDONADO. ??Results read back by same.Critical Result(s) Called at: by:??Results read back bysame.Critical Result(s) Called at 1435: by: RIKY MALDONADO. ??Results read back by same. AMENDED REPORT 07/03/242228 LACTIC ACID previously reported as: 2.9 *H mmol/LCritical Result(s) Called at 1435: by: RIKY MALDONADO. ??Results read back by same.Critical Result(s) Called at: by:??Results read back bysame. Performed By: #### L 503.6005 ####[facility] [address] [place], [address] Lactate [Moles/Vol] 2.4 mmol/L Invalid Interpretation Code 0.0-2.0 [facility] Comment on above: Order Comment: Y Result Comment: Crit ical Result(s) Called at 1025: by: RIKY AYALA. ??Results read back by same.Critical Result(s) Called at: by:??Results read back bysame.Critical Result(s) Called at 1025: by: RIKY AYALA. ??Results read back by same. AMENDED REPORT 07/03/242228 LACTIC ACID previously reported as: 2.4 *H mmol/LCritical Result(s) Called at 1025: by: RIKY AYALA. ??Results read back by same.Critical Result(s) Called at: by:??Results read back bysame. Performed By: #### L 500.2500, L503.6005, L100.0100 ####[facility] [address] [place], [address] MR/CON.PCM.GIon 07-03-2024 MR/CON.PCM.GI Normal [facility] Modified Barium Swallow Stud yon 07-03-2024 Modified Barium Swallow Study Normal [facility] Swallowing Function w/Videoo n 07-03-2024 Swallowing Function w/Video Normal [facility] Urine Cultureon 07-03-2024 URC Normal [facility] Comment on above: Performed By: #### L 400.0001, M100.2200 ####[facility] [address] [place], [address] Basic Metabolic Profile (BMP )on 07-02-2024 BUN/CRE 11.8 RATIO Normal 10-20 [facility] Comment on above: Performed By: #### L 500.2500, L100.0500 ####[facility] [address] [place], [address] Calcium [Mass/Vol] 8.8 mg/dL Normal 7.6-11.0 [facility] Comment on above: Performed By: #### L 500.2500, L100.0500 ####[facility] [address] [place], [address] Chloride [Moles/Vol] 106 mmol/L Normal 98-108 [facility] Comment on above: Performed By: #### L 500.2500, L100.0500 ####[facility] [address] [place], [address] CO2 [Moles/Vol] 20.0 mmol/L Low 21.0-32.0 [facility] Comment on above: Performed By: #### L 500.2500, L100.0500 ####[facility] [address] [place], [address] Creatinine [Mass/Vol] 1.87 mg/dL High 0.70-1.20 [facility] Comment on above: Performed By: #### L 500.2500, L100.0500 ####[facility] [address] [place], [address] ECRCL 37.62 ml/min Low 50-250 [facility] Comment on above: Performed By: #### L 500.2500, L100.0500 ####[facility] [address] [place], [address] GAP 13 Normal 5-15 [facility] Comment on above: Performed By: #### L 500.2500, L100.0500 ####[facility] [address] [place], [address] GFR/1.73 sq M.predicted among non-blacks MDRD (S/P/Bld) [Vol rate/Area] 37 mL/min/{1.73_m2} Low >60 [facility] Comment on above: Result Comment: mL/m in/1.73m2 CKD-EPI Creatinine Equation (2020) Performed By: #### L 500.2500, L100.0500 ####[facility] [address] [place], [address] Glucose [Mass/Vol] 132 mg/dL High 70-99 [facility] Comment on above: Performed By: #### L 500.2500, L100.0500 ####[facility] [address] [place], [address] Potassium [Moles/Vol] 4.0 mmol/L Normal 3.3-5.1 [facility] Comment on above: Performed By: #### L 500.2500, L100.0500 ####[facility] [address] [place], [address] Sodium [Moles/Vol] 138 mmol/L Normal 133-145 [facility] Comment on above: Performed By: #### L 500.2500, L100.0500 ####[facility] [address] [place], [address] Urea nitrogen [Mass/Vol] 22 mg/dL High 4-19 [facility] Comment on above: Performed By: #### L 500.2500, L100.0500 ####[facility] [address] [place], [address] CBC-Complete Blood Cnt No Di ffon 07-02-2024 Erythrocyte distribution width (RBC) [Ratio] 15.2 % High 11.6-14.6 [facility] Comment on above: Performed By: #### L 500.2500, L100.0500 ####[facility] [address] [place], [address] Hematocrit (Bld) [Volume fraction] 42.9 % Normal 40-54 [facility] Comment on above: Performed By: #### L 500.2500, L100.0500 ####[facility] [address] [place], [address] Hemoglobin (Bld) [Mass/Vol] 13.6 g/dL Normal 13.0-16.5 [facility] Comment on above: Performed By: #### L 500.2500, L100.0500 ####[facility] [address] [place], [address] MCH (RBC) [Entitic mass] 29.6 pg Normal 27.0-32.0 [facility] Comment on above: Performed By: #### L 500.2500, L100.0500 ####[facility] [address] [place], [address] MCHC (RBC) [Mass/Vol] 31.7 g/dL Low 32-36 [facility] Comment on above: Performed By: #### L 500.2500, L100.0500 ####[facility] [address] [place], [address] MCV (RBC) [Entitic vol] 93.5 fL Normal 80-94 [facility] Comment on above: Performed By: #### L 500.2500, L100.0500 ####[facility] [address] [place], [address] Platelet mean volume (Bld) [Entitic vol] 12.4 fL High 6.2-12.0 [facility] Comment on above: Performed By: #### L 500.2500, L100.0500 ####[facility] [address] [place], [address] Platelets (Bld) [#/Vol] 106 10*3/uL Low 150-450 [facility] Comment on above: Performed By: #### L 500.2500, L100.0500 ####[facility] [address] [place], [address] RBC (Bld) [#/Vol] 4.59 10*6/uL Low 4.6-6.2 [facility] Comment on above: Performed By: #### L 500.2500, L100.0500 ####[facility] [address] [place], [address] RDW SD 52.6 fl High 35.1-43.9 [facility] Comment on above: Performed By: #### L 500.2500, L100.0500 ####[facility] [address] [place], [address] WBC (Bld) [#/Vol] 13.9 10*3/uL High 4.4-11.0 [facility] Comment on above: Performed By: #### L 500.2500, L100.0500 ####[facility] [address] [place], [address] Venous duplex ultrasound rep ortOrdered By: Efraín Thompson on 07-02-2024 US Vein [facility] [address] [place] [address] Venous Duplex US, Unilateral 07/01/24 1237 MR#: [id number] Acct: [id number] Name: EMELIA JOHNSON Rep #:[id number] : 1950 74 From: Efraín Hollingsworth Attending Dr: Dr. Kulwinder De La O, DO Status: ADM IN Ordering Dr: Kulwinder De La O te: 07/01/24 Location: [facility] Sex: M C Admitted: 07/01/24 Reason For Study Reason For Study: LLE SWelling Procedure LEFT This is a venous duplex using B-mode, color flow and CFV is compressible with pulsatile flow thoughout spectral Doppler. FV is compressible with pulsatile flow throughout. Exam performed portable in ED. Pop V is compressible The study was technically difficult due to leg T/P Trunk is compressible swelling. 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 GSV is compressible but appears pulsatile with arterial flow and augments with compression. Swirl flow noted in CFV/SFJ with color Doppler. Vessel was difficult to compress with thickened gifford. SFA has above and below baseline flow that appears abnormal. Deep Fem Artery appears to have triphasic arterial flow. Femoral Vein proximal thigh has arterial flow above and below baseline and augments with compression. Patients leg feels very hard and swollen with possible elevated venous pressure noted in pulsed wave doppler. VL/Venous Duplex US, Unilateral Interpretation Summary Deep veins of the left lower extremity are patent and compressible segmentally. There is no evidence of left lower extremity deep vein thrombosis. The left great saphenous vein appears patent andcompressible segmentally. Arterialized flow identified in great saphenous vein, femoral vein, common femoral vein suggesting presence of possible fistula. Ordering Physician: Kulwinder De La O Referring Physician: Jenae Santamaria Performed By: Kameron Boyer, T 07/02/24 1352 Date _ Efraín hTompson MD CC: Jenae Santamaria MD; Dr. Kulwinder De La O DO ~ Date Dictated: 07/01/24 1237 Date Transcribed: 07/02/24 1352 Payroll Analyst: Signed [facility] Work Phone: Abdomen/Pelvis without Conto n 07-01-2024 Abdomen/Pelvis without Cont Normal [facility] Absolute neutrophil countOrd ered By: Toni King on 07-01-2024 Neutrophils (Bld) [#/Vol] 14.9 10*3/uL High 2.0-7.7 [facility] Anion gap in Serum or Plasma Ordered By: Toni King on 07-01-2024 Anion gap [Moles/Vol] 14 mmol/L 5-15 [facility] BUN/creatinine ratioOrdered By: Toni King on 07-01-2024 Urea nitrogen/Creatinine [Mass ratio] 9.1 mg/mg Low 10-20 [facility] Basic Metabolic Profile (BMP )on 07-01-2024 BUN/CRE 9.1 RATIO Low 10-20 [facility] Comment on above: Performed By: #### L 500.2500, L503.6005, L100.0100 ####[facility] [address] [place], [address] Calcium [Mass/Vol] 9.5 mg/dL Normal 7.6-11.0 [facility] Comment on above: Performed By: #### L 500.2500, L503.6005, L100.0100 ####[facility] [address] [place], [address] Chloride [Moles/Vol] 99 mmol/L Normal 98-108 [facility] Comment on above: Performed By: #### L 500.2500, L503.6005, L100.0100 ####[facility] [address] [place], [address] CO2 [Moles/Vol] 22.9 mmol/L Normal 21.0-32.0 [facility] Comment on above: Performed By: #### L 500.2500, L503.6005, L100.0100 ####[facility] [address] [place], [address] Creatinine [Mass/Vol] 2.13 mg/dL High 0.70-1.20 [facility] Comment on above: Performed By: #### L 500.2500, L503.6005, L100.0100 ####[facility] [address] [place], [address] ECRCL 33.28 ml/min Low 50-250 [facility] Comment on above: Performed By: #### L 500.2500, L503.6005, L100.0100 ####[facility] [address] [place], [address] GAP 14 Normal 5-15 [facility] Comment on above: Performed By: #### L 500.2500, L503.6005, L100.0100 ####[facility] [address] [place], [address] GFR/1.73 sq M.predicted among non-blacks MDRD (S/P/Bld) [Vol rate/Area] 32 mL/min/{1.73_m2} Low >60 [facility] Comment on above: Result Comment: mL/m in/1.73m2 CKD-EPI Creatinine Equation (2020) Performed By: #### L 500.2500, L503.6005, L100.0100 ####[facility] [address] [place], [address] Glucose [Mass/Vol] 184 mg/dL High 70-99 [facility] Comment on above: Performed By: #### L 500.2500, L503.6005, L100.0100 ####[facility] [address] [place], [address] Potassium [Moles/Vol] 5.5 mmol/L High 3.3-5.1 [facility] Comment on above: Result Comment: Hemo lysis present, Results??could be affected.?? Performed By: #### L 500.2500, L503.6005, L100.0100 ####[facility] [address] [place], [address] Sodium [Moles/Vol] 136 mmol/L Normal 133-145 [facility] Comment on above: Performed By: #### L 500.2500, L503.6005, L100.0100 ####[facility] [address] [place], [address] Urea nitrogen [Mass/Vol] 19 mg/dL Normal 4-19 [facility] Comment on above: Performed By: #### L 500.2500, L503.6005, L100.0100 ####[facility] [address] [place], [address] Basophil percentageOrdered B y: Remus Ungbettie on 07-01-2024 Basophils/100 WBC (Bld) 0.4 % 0-1 [facility] Bilirubin Test strip Ql (U)O rdered By: Remus Ungbettie on 07-01-2024 Bilirubin Ql (U) 6 mg/dL High Negative [facility] Comment on above: COLOR OF URINE MAY A FFECT DIPSTICK RESULTS. Blood cultureOrdered By: Rem us Ungur on 07-01-2024 Bacteria identified Cx Nom (Bld) No growth in 5 days. [facility] Bacteria identified Cx Nom (Bld) No growth in 5 days. [facility] CBC W/Diff, Automatedon 04-0 Absolute Lymph 1.10 X10 3/uL Normal 0.83-4.51 [facility] Comment on above: Performed By: #### L 500.2500, L503.6005, L100.0100 ####[facility] [address] [place], [address] Absolute Neut 14.9 X10 3/uL High 2.0-7.7 [facility] Comment on above: Performed By: #### L 500.2500, L503.6005, L100.0100 ####[facility] [address] [place], [address] Basophils/100 WBC (Bld) 0.4 % Normal 0-1 [facility] Comment on above: Performed By: #### L 500.2500, L503.6005, L100.0100 ####[facility] [address] [place], [address] Eosinophils/100 WBC (Bld) 0.4 % Normal 0-5 [facility] Comment on above: Performed By: #### L 500.2500, L503.6005, L100.0100 ####[facility] [address] [place], [address] Erythrocyte distribution width (RBC) [Ratio] 14.9 % High 11.6-14.6 [facility] Comment on above: Performed By: #### L 500.2500, L503.6005, L100.0100 ####[facility] [address] [place], [address] Hematocrit (Bld) [Volume fraction] 47.5 % Normal 40-54 [facility] Comment on above: Performed By: #### L 500.2500, L503.6005, L100.0100 ####[facility] [address] [place], [address] Hemoglobin (Bld) [Mass/Vol] 15.5 g/dL Normal 13.0-16.5 [facility] Comment on above: Performed By: #### L 500.2500, L503.6005, L100.0100 ####[facility] [address] [place], [address] IG% 0.400 Normal 0.0-0.9 [facility] Comment on above: Result Comment: IG% - Immature Granulocytes (promyelocytes, myelocytes andmetamyelocytes) > 1% indicates that a LEFT SHIFT is Present. Performed By: #### L 500.2500, L503.6005, L100.0100 ####[facility] [address] [place], [address] Lymphocytes/100 WBC (Bld) 6.5 % Low 19-41 [facility] Comment on above: Performed By: #### L 500.2500, L503.6005, L100.0100 ####[facility] [address] [place], [address] MCH (RBC) [Entitic mass] 29.8 pg Normal 27.0-32.0 [facility] Comment on above: Performed By: #### L 500.2500, L503.6005, L100.0100 ####[facility] [address] [place], [address] MCHC (RBC) [Mass/Vol] 32.6 g/dL Normal 32-36 [facility] Comment on above: Performed By: #### L 500.2500, L503.6005, L100.0100 ####[facility] [address] [place], [address] MCV (RBC) [Entitic vol] 91.3 fL Normal 80-94 [facility] Comment on above: Performed By: #### L 500.2500, L503.6005, L100.0100 ####[facility] [address] [place], [address] Monocytes/100 WBC (Bld) 5.0 % Normal 0-10 [facility] Comment on above: Performed By: #### L 500.2500, L503.6005, L100.0100 ####[facility] [address] [place], [address] Neutrophils/100 WBC (Bld) 87.3 % High 47-70 [facility] Comment on above: Performed By: #### L 500.2500, L503.6005, L100.0100 ####[facility] [address] [place], [address] Nucleated RBC (Bld) [#/Vol] 0 10*3/uL Normal 0-5 [facility] [facility] Comment on above: Performed By: #### L 500.2500, L503.6005, L100.0100 ####[facility] [address] [place], [address] Platelet mean volume (Bld) [Entitic vol] 13.1 fL High 6.2-12.0 [facility] Comment on above: Performed By: #### L 500.2500, L503.6005, L100.0100 ####[facility] [address] [place], [address] Platelets (Bld) [#/Vol] 107 10*3/uL Low 150-450 [facility] Comment on above: Performed By: #### L 500.2500, L503.6005, L100.0100 ####[facility] [address] [place], [address] RBC (Bld) [#/Vol] 5.20 10*6/uL Normal 4.6-6.2 [facility] Comment on above: Performed By: #### L 500.2500, L503.6005, L100.0100 ####[facility] [address] [place], [address] RDW SD 50.0 fl High 35.1-43.9 [facility] Comment on above: Performed By: #### L 500.2500, L503.6005, L100.0100 ####[facility] [address] [place], [address] WBC (Bld) [#/Vol] 17.0 10*3/uL High 4.4-11.0 [facility] Comment on above: Performed By: #### L 500.2500, L503.6005, L100.0100 ####[facility] [address] [place], [address] Carbon dioxide, total [Moles /volume] in Central venous bloodOrdered By: oTni King on 07-01-2024 CO2 [Moles/Vol] 22.9 mmol/L 21.0-32.0 [facility] Chest 1 View (Portable)on Chest 1 View (Portable) Normal [facility] Chloride assayOrdered By: Nicol King on 07-01-2024 Chloride [Moles/Vol] 99 mmol/L 98-108 [facility] Emergency Department Summary on 07-01-2024 Emergency Department Summary Normal [facility] Eosinophil percentageOrdered By: Toni King on 07-01-2024 Eosinophils/100 WBC (Bld) 0.4 % 0-5 [facility] Epithelial cells.squamous LM Ql (Urine sed)Ordered By: Toni King on 07-01-2024 Epithelial cells.squamous LM.HPF (Urine sed) [#/Area] 0 /[HPF] 0-5 [facility] Erythrocyte distribution wid th (RBC) [Ratio]Ordered By: Toni King on 07-01-2024 Erythrocyte distribution width (RBC) [Entitic vol] 50.0 fL High 35.1-43.9 [facility] Erythrocyte distribution wid th ratioOrdered By: [facility] King on 07-01-2024 Erythrocyte distribution width (RBC) [Ratio] 14.9 % High 11.6-14.6 [facility] Estimation of creatinine jerel aranceOrdered By: Toni King on 07-01-2024 Estimated Creatinine Clearance Calc 33.28 ml/min Low 50-250 [facility] GFR/1.73 sq M.predicted nicole g non-blacks MDRD (S/P/Bld) [Vol rate/Area]Ordered By: Toni King on 07-01-2024 Estimated GFR (MDRD) Non-Af Amer 32 Low >60 [facility] Comment on above: mL/min/1.73m2 CKD-EP I Creatinine Equation (2020) Glucose Ql (U)Ordered By: Nicol King on 07-01-2024 Urine Glucose (UA) Normal mg/dl Normal [facility] H AND P Exam - Hospitaliston 07-01-2024 H&P Exam - Hospitalist Normal [facility] Hematocrit Auto (Bld) [Volum e fraction]Ordered By: Toni King on 07-01-2024 Hematocrit (Bld) [Volume fraction] 47.5 % 40-54 [facility] Hemoglobin measurementOrdere d By: Toni King on 07-01-2024 Hemoglobin (Bld) [Mass/Vol] 15.5 g/dL 13.0-16.5 [facility] Immature granulocytes/100 WB C Auto (Bld)Ordered By: [facility] King on 07-01-2024 Immature granulocytes/100 WBC (Bld) 0.400 % 0.0-0.9 [facility] Comment on above: IG% - Immature Granu locytes (promyelocytes, myelocytes and metamyelocytes) > 1% indicates that a LEFT SHIFT is Present. Influenza virus A and B and SARS-CoV-2 (COVID-19) and Respiratory syncytial virus RNAOrdered By: Kulwinder De La O on 07-01-2024 SARS-CoV-2 (COVID-19) RNA RYANNE+probe Ql (Unsp spec) [facility] Ketones Test strip Ql (U)Ord ered By: Toni King on 07-01-2024 Ketones Ql (U) 5 mg/dl High Negative [facility] Lactic acid measurementOrder ed By: Kulwinder De La O on 07-01-2024 Lactate [Moles/Vol] 2.1 mmol/L High 0.0-2.0 [facility] Comment on above: Order Comment: N Performed By: #### L 503.6005 ####[facility] [address] [place], [address] Lactic acid measurementOrder ed By: Toni King on 07-01-2024 Lactate [Moles/Vol] 2.4 mmol/L High 0.0-2.0 [facility] Comment on above: Critical Result(s) C alled at 1025: by: RIKY KHALIL TO LARRY. Results read back by same. Critical Result(s) Called at: by: Results read back by same.Previous reported result: 2.4 mmol/LEdited by: AUTOINS on 07/01/24:1036 AMENDED REPORT 07/01/24 1036 LACTIC ACID previously reported as: 2.4 *H mmol/L Critical Result(s) Called at 1025: by: RIKY KHALIL TO LARRY. Results read back by same. Lymphocytes Auto (Unsp spec) [#/Vol]Ordered By: Toni King on 07-01-2024 Lymphocytes (Bld) [#/Vol] 1.10 10*3/uL 0.83-4.51 [facility] Lymphocytes/100 WBC Auto (Un sp spec)Ordered By: Toni King on 07-01-2024 Lymphocytes/100 WBC (Bld) 6.5 % Low 19-41 [facility] M100.678on 07-01-2024 M100.678 Pending SARS-CoV-2 (COVID 19) Negative INFLUENZA A Negative INFLUENZA B Negative RSV PCR Negative Normal [facility] Comment on above: Performed By: #### M 100.678 ####[facility] [address] [place], [address] MCV (mean corpuscular volume ) determinationOrdered By: Toni King on 07-01-2024 MCV (RBC) [Entitic vol] 91.3 fL 80-94 [facility] Mean corpuscular hemoglobin (MCH) determinationOrdered By: Toni King on 07-01-2024 MCH (RBC) [Entitic mass] 29.8 pg 27.0-32.0 [facility] Mean corpuscular hemoglobin concentration (MCHC) determinationOrdered By: Toni King on 07-01-2024 MCHC (RBC) [Mass/Vol] 32.6 g/dL 32-36 [facility] Mean platelet volume determi nationOrdered By: Toni King on 07-01-2024 Platelet mean volume (Bld) [Entitic vol] 13.1 fL High 6.2-12.0 [facility] Microscopic analysis of urin e for red blood cells (RBC)Ordered By: Toni King on 07-01-2024 Microscopic analysis of urine for red blood cells (RBC) > 100 SEEN /hpf 0-5 [facility] Urine RBC > 100 SEEN /hpf 0-5 [facility] Monocyte percentageOrdered B y: Toni King on 07-01-2024 Monocytes/100 WBC (Bld) 5.0 % 0-10 [facility] Mucus LM Ql (Urine sed)Order ed By: Toni King on 07-01-2024 Mucus Ql (Urine sed) 0 SEEN /hpf [facility] Neutrophil percentageOrdered By: Toni King on 07-01-2024 Neutrophils/100 WBC (Bld) 87.3 % High 47-70 [facility] Nitrite Test strip Ql (U)Ord ered By: Toni King on 07-01-2024 Nitrite Ql (U) Positive High Negative [facility] Nucleated red blood cell per centageOrdered By: Toni King on 07-01-2024 Nucleated RBC/100 WBC (Bld) [Ratio] 0 % 0-5 [facility] Platelet countOrdered By: Nicol King on 07-01-2024 Platelets (Bld) [#/Vol] 107 10*3/uL Low 150-450 [facility] Potassium (Unsp spec) [Mass/ Vol]Ordered By: Toni King on 07-01-2024 Potassium [Moles/Vol] 5.5 mmol/L High 3.3-5.1 [facility] Comment on above: Hemolysis present, R esults could be affected. Protein Test strip Ql (U)Ord ered By: Toni King on 07-01-2024 Protein Ql (U) 100 mg/dl High Negative [facility] RBC Auto (Bld) [#/Vol]Ordere d By: Toni King on 07-01-2024 RBC (Bld) [#/Vol] 5.20 10*6/uL 4.6-6.2 [facility] Serum creatinine measurement (mass/volume)Ordered By: Toni King on 07-01-2024 Creatinine [Mass/Vol] 2.13 mg/dL High 0.70-1.20 [facility] Serum glucose measurement (m ass/volume)Ordered By: Toni King on 07-01-2024 Glucose [Mass/Vol] 184 mg/dL High 70-99 [facility] Serum or plasma calcium camille urement (mass/volume)Ordered By: Toni King on 07-01-2024 Calcium [Mass/Vol] 9.5 mg/dL 7.6-11.0 [facility] Serum or plasma urea nitroge n measurement (mass/volume)Ordered By: Toni King on 07-01-2024 Urea nitrogen [Mass/Vol] 19 mg/dL 4-19 [facility] Sodium levelOrdered By: Ju King on 07-01-2024 Sodium [Moles/Vol] 136 mmol/L 133-145 [facility] Squamous epithelial cells de tection in urine sediment by light microscopyOrdered By: Toni King on 07-01-2024 Epithelial cells.squamous LM Ql (Urine sed) 0 SEEN /hpf 0-5 [facility] Urinalysis, Completeon 07-01 RBC > 100 SEEN Normal 0-5 [facility] Comment on above: Order Comment: COLOR OF URINE MAY AFFECT DIPSTICK RESULTS.CATHETER SPECIMEN Performed By: #### L 400.0001, ####[facility] [address] [place], [address] WBC 10-25 SEEN Normal 0-5 [facility] Comment on above: Order Comment: COLOR OF URINE MAY AFFECT DIPSTICK RESULTS.CATHETER SPECIMEN Performed By: #### L 400.0001, ####[facility] [address] [place], [address] BACTERIA 0 SEEN Normal None Seen [facility] Comment on above: Order Comment: COLOR OF URINE MAY AFFECT DIPSTICK RESULTS.CATHETER SPECIMEN Performed By: #### L 400.0001, ####[facility] [address] [place], [address] EPI,SQUAMOUS 0 SEEN Normal 0-5 [facility] Comment on above: Order Comment: COLOR OF URINE MAY AFFECT DIPSTICK RESULTS.CATHETER SPECIMEN Performed By: #### L 400.0001, ####[facility] [address] [place], [address] Mucus Ql (Urine sed) [address] [facility] Comment on above: Order Comment: COLOR OF URINE MAY AFFECT DIPSTICK RESULTS.CATHETER SPECIMEN Performed By: #### L 400.0001, M100.2200 ####[facility] [address] [place], [place], [address] Urine blood detectionOrdered By: Remus Ungbettie on 07-01-2024 Urine Occult Blood 250 /ul High Negative [facility] Urine clarityOrdered By: Rem us Ungur on 07-01-2024 Clarity (U) Cloudy Clear [facility] Urine color determinationOrd ered By: Remus Ungbettie on 07-01-2024 Color (U) Parag Yellow [facility] Urine cultureOrdered By: Rem us Ungbettie on 07-01-2024 Bacteria identified Cx Nom (U) Meth. resistant Staph. aureus Abnormal [facility] Urine glucose detectionOrder ed By: Remus Fernando on 07-01-2024 Glucose Ql (U) Normal mg/dl Normal [facility] Urine leukocyte esterase det ection by dipstickOrdered By: Remus Ungbettie on 07-01-2024 Leukocyte esterase Test strip Ql (U) 500 /ul High Negative [facility] Urine pHOrdered By: Remus Un gur on 07-01-2024 pH (U) 6.0 [pH] 5.0 - 8.0 [facility] Urine sediment bacteria coun t by microscopy (number/high power field)Ordered By: Remus Fernando on 07-01-2024 Bacteria LM.HPF (Urine sed) [#/Area] 0 /[HPF] None Seen [facility] Urine specific gravity measu rementOrdered By: Remus Ungbettie on 07-01-2024 Specific gravity (U) [Rel density] 1.010 1.002-1.03 0 [facility] Urine urobilinogen measureme ntOrdered By: Remus Ungbettie on 07-01-2024 Urobilinogen Ql (U) 12 mg/dl High Normal [facility] Urobilinogen Ql (U)Ordered B y: Remus Ungur on 07-01-2024 Urobilinogen (U) [Mass/Vol] 12 mg/dL High Normal [facility] Venous Duplex US, Unilateral on 07-01-2024 Venous Duplex US, Unilateral Normal [facility] White blood cell (WBC) count Ordered By: Toni King on 07-01-2024 WBC (Bld) [#/Vol] 17.0 10*3/uL High 4.4-11.0 [facility] White blood cell countOrdere d By: Toni King on 07-01-2024 Urine WBC 10-25 SEEN /hpf 0-5 [facility] White blood cell count 10-25 SEEN /hpf 0-5 [facility] CNOVon 05-19-2024 CNOV Office Visit (PODIWS ) EMELIA JOHNSON ([id number]) 1950 M Date Time Provider Department 05/19/24 [...] or sore from your shoes, do not "pop" it. Apply a bandage and wear a different pair of shoes. Take Care of Your Toenails Cut toenails after bathing, when they are soft. Cut toenails straight across and smooth with a nail file. Avoid cutting into the corners of toes. Do not cut cuticles. If you have neuropathy (or decreased sensation in your feet) a cell maker should always cut your toenails. Be Careful [...] your shoes are too tight. Perform the "footwear test" described below. Footwear Test Use this simple [...] Go to your health care provider or cell maker to treat these conditions. Carolyne Menon LPN 05/20/2024 8:13 AM Signed AMB ROOMING INTAKE FLOWSHEET DATA Patient presents with: Left Foot - Established Patient, Diabetic Foot Care Right Foot - Established Patient, Diabetic Foot Care BUNNY Felton Matthew 05/20/2024 8:13 AM Signed Last saw pcp: [...] medications or medical history since last visit. Objec (more content not included)... Normal [facility] Francisca 04-25-2024 EMMANUELLEN Telephone (AGSAM) EMELIA JOHNSON ([id number]) 1950 M Date Time Provider Department 04/25/24 JENAE SANTAMARIA During your visit today, we recorded the following information about you: Judie Garrido MA 04/25/2024 3:15 PM Signed Call from Marcy [phone], nurse from [facility], called to report pt has not been [...] 1 tablet by mouth once daily. - xldbjmxemqj-chacwmxpb-juymr ter (TRELEGY ELLIPTA) 100-62.5-25 mcg inhalation powder Inhale [...] aortic aneurysm (TAAA) without*11/21/2013 02/08/2020 Atherosclerosis of [place] artery of extremity w*11/21/2013 Other hyperlipidemia [E78.49] Unspecified hypothyroidism [E03.9] Smoker [F17.200] 01/27/2015 Chronic ischemic right MCA stroke [Z86.73] 02/08/2020 CAD (coronary artery disease), [place] coronary *12/27/2013 Postprocedural hypotension [I95.81] 12/27/2013 09/25/2020 [...] smoker [Z87.891] AAA (abdominal aortic aneurysm) without (more content not included)... Normal [facility] CNPNon 04-19-2024 [facility] Telephone (Torbit) EMELIA JOHNSON ([id number]) 1950 M Date Time Provider Department 04/19/24 [facility] During your visit today, we recorded the following information about you: Krysta Aldana, RN 04/19/2024 2:39 PM Signed Diabetes education [...] 1 tablet by mouth once daily. - euvrqmazosm-dmhelcxze-rekaq ter (TRELEGY ELLIPTA) 100-62.5-25 mcg inhalation powder Inhale [...] aortic aneurysm (TAAA) without*11/21/2013 02/08/2020 Atherosclerosis of [place] artery of extremity w*11/21/2013 Other hyperlipidemia [E78.49] Unspecified hypothyroidism [E03.9] Smoker [F17.200] 01/27/2015 Chronic ischemic right MCA stroke [Z86.73] 02/08/2020 CAD (coronary artery disease), [place] coronary *12/27/2013 Postprocedural hypotension [I95.81] 12/27/2013 09/25/2020 [...] infection associated with indwell*10/13/2020 Encounter Status:Closed by KRYSTA ALDANA on 04/19/24 [facility] CNPN Telephone (AGSAM) EMELIA JOHNSON ([id number]) 1950 Date Time Provider Department 04/19/24 JENAE SANTAMARIA [facility] During your visit today, we recorded the following information about you: Jenae Santamaria MD 04/19/2024 8:04 AM Signed Please call to update that urine culture positive and will send antibiotics based on culture and sensitivity results. MD Hema Jensen Amanda, MA 04/19/2024 9:20 AM Signed Left vm for shellie on preferred number listed in [...] 1 tablet by mouth once daily. - tpkdoviojrh-wnguwfvzx-bgowk ter (TRELEGY ELLIPTA) 100-62.5-25 mcg inhalation powder Inhale [...] times a day. - flash glucose sensor (Quividi HEMA 14 DAY SENSOR) kit 1 Each four times daily. - Fenofibrate 160 mg tablet Take 1 tablet by mouth once daily. 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 Normal [facility] CNPNon 04-18-2024 CNPN Telephone (AGS) EMELIA JOHNSON ([id number]) 1950 M Date Time Provider Department 04/18/24 JENAE SANTAMARIA During your visit today, we recorded the following information about you: Judie Garrido MA 04/18/2024 12:25 PM Signed ----- [...] 1 tablet by mouth once daily. - opnvjaszwsv-pskgcouop-xbfur ter (TRELEGY ELLIPTA) 100-62.5-25 mcg inhalation powder Inhale [...] aortic aneurysm (TAAA) without*11/21/2013 02/08/2020 Atherosclerosis of [place] artery of extremity w*11/21/2013 Other hyperlipidemia [E78.49] Unspecified hypothyroidism [E03.9] Smoker [F17.200] 01/27/2015 Chronic ischemic right MCA stroke [Z86.73] 02/08/2020 CAD (coronary artery disease), [place] coronary *12/27/2013 Postprocedural hypotension [I95.81] 12/27/2013 09/25/2020 [...] infection associated with indwell*10/13/2020 Encounter Status:Closed by JUDIE GARRIDO on 04/18/24 [facility] CNPN Telephone (AGSAM) EMELIA JOHNSON ([id number]) 1950 M Date Time Provider Department 04/18/24 JENAE SANTAMARIA During your visit today, we recorded the following information about you: Judie Garrido MA 04/18/2024 12:26 PM Signed ----- [...] 1 tablet by mouth once daily. - yauhdgjzkoo-gukwsyblq-hwbla ter (TRELEGY ELLIPTA) 100-62.5-25 mcg inhalation powder Inhale [...] aortic aneurysm (TAAA) without*11/21/2013 02/08/2020 Atherosclerosis of [place] artery of extremity w*11/21/2013 Other hyperlipidemia [E78.49] Unspecified hypothyroidism [E03.9] Smoker [F17.200] 01/27/2015 Chronic ischemic right MCA stroke [Z86.73] 02/08/2020 CAD (coronary artery disease), [place] coronary *12/27/2013 Postprocedural hypotension [I95.81] 12/27/2013 09/25/2020 [...] Postoperative ileus (HCC) [K91.89, K56.7] 10/04/2020 10/18/2020 (more content not included)... Normal [facility] 25(OH)D3 [facility] 2024 25-hydroxyvitamin D3 [Mass/Vol] 15.8 ng/mL Low 31.0-80.0 [facility] Comment on above: Order Comment: Speci men Type: BLOOD SPECIMENOrdering Facility: [facility] Address: [address] [place] [address] Result Comment: Clas sification of 25 [place] Vitamin D status: Deficiency/Insufficiency: < or = 30 ng/ml. Sufficiency/Optimal Levels: 31-80 ng/mL Toxicity: > 100 ng/mL. Test performed by chemiluminescent immunoassay. Performed By: #### 1 989-3 ####[facility] LABCLIA [id number] [place] [address] [place] CBC W Auto Differential pane l (Bld)on 04-15-2024 Basophils (Bld) [#/Vol] 0.08 10*3/uL Normal <0.11 [facility] Comment on above: Order Comment: Speci men Type: BLOOD SPECIMENOrdering Facility: [facility] Address: [address] [place] [address] Performed By: #### 5 7021-8 ####[facility] LABCLIA [id number] [address] [place] Basophils/100 WBC (Bld) 1.2 % Normal C [facility] Comment on above: Order Comment: Speci men Type: BLOOD SPECIMENOrdering Facility: [facility] Address: [address] [place] [address] Performed By: #### 5 7021-8 ####[facility] LABCLIA [id number] [place] [address] [place] Differential cell count method Nom (Bld) Auto Normal [facility] Comment on above: Order Comment: Speci men Type: BLOOD SPECIMENOrdering Facility: [facility] Address: [address] [place] [address] Performed By: #### 5 7021-8 ####[facility] LABCLIA [id number] [place] [address] [place] Eosinophils (Bld) [#/Vol] 0.17 10*3/uL Normal <0.46 [facility] Comment on above: Order Comment: Speci men Type: BLOOD SPECIMENOrdering Facility: [facility] Address: [address] [place] [address] Performed By: #### 5 7021-8 ####[facility] LABCLIA [id number] [place] [address] [place] Eosinophils/100 WBC (Bld) 2.5 % Normal [facility] Comment on above: Order Comment: Speci men Type: BLOOD SPECIMENOrdering Facility: [facility] Address: [address] [place] [address] Performed By: #### 5 7021-8 ####[facility] LABCLIA [id number] [place] [address] [place] Erythrocyte distribution width (RBC) [Ratio] 14.6 % Normal 11.5-15.0 [facility] Comment on above: Order Comment: Speci men Type: BLOOD SPECIMENOrdering Facility: [facility] Address: [address] [place], [place] [address] Performed By: #### 5 7021-8 ####[facility] LABCLIA [id number] [place] [address] [place] Hematocrit (Bld) [Volume fraction] 50.3 % Normal 39.0-51.0 [facility] Comment on above: Order Comment: Speci men Type: BLOOD SPECIMENOrdering Facility: [facility] Address: [address] [place] [address] Performed By: #### 5 7021-8 ####[facility] LABIA [id number] [place] [address] [place] Hemoglobin (Bld) [Mass/Vol] 15.8 g/dL Normal 13.0-17.0 [facility] Comment on above: Order Comment: Speci men Type: BLOOD SPECIMENOrdering Facility: [facility] Address: [address] [place] [address] Performed By: #### 5 7021-8 ####[facility] LABIA [id number] [place] [address] [place] Immature granulocytes (Bld) [#/Vol] 0.03 10*3/uL Normal <0.10 [facility] Comment on above: Order Comment: Speci men Type: BLOOD SPECIMENOrdering Facility: [facility] Address: [address] [place] [address] Performed By: #### 5 7021-8 ####[facility] LABCLIA [id number] [place] [address] [place] Immature granulocytes/100 WBC (Bld) 0.4 % Normal [facility] Comment on above: Order Comment: Speci men Type: BLOOD SPECIMENOrdering Facility: [facility] Address: [address] [place] [address] Performed By: #### 5 7021-8 ####[facility] LABIA [id number] [id number] [address] [place] Lymphocytes (Bld) [#/Vol] 2.31 10*3/uL Normal 1.00-4.00 [facility] Comment on above: Order Comment: Speci men Type: BLOOD SPECIMENOrdering Facility: [facility] Address: [address] [place] [address] Performed By: #### 5 7021-8 ####[facility] LABCLIA [id number] [place] [address] [place] Lymphocytes/100 WBC (Bld) 34.5 % Normal [facility] Comment on above: Order Comment: Speci men Type: BLOOD SPECIMENOrdering Facility: [facility] Address: [address] [place] [address] Performed By: #### 5 7021-8 ####[facility] LABCLIA [id number] [place] [address] [place] MCH (RBC) [Entitic mass] 29.4 pg Normal 26.0-34.0 [facility] Comment on above: Order Comment: Speci men Type: BLOOD SPECIMENOrdering Facility: [facility] Address: [address] [place] [address] Performed By: #### 5 7021-8 ####[facility] LABCLIA [id number] [place] [address] [place] MCHC (RBC) [Mass/Vol] 31.4 g/dL Normal 30.5-36.0 [facility] Comment on above: Order Comment: Speci men Type: BLOOD SPECIMENOrdering Facility: [facility] Address: [address] [place] [address] Performed By: #### 5 7021-8 ####[facility] LABCLIA [id number] [place] [address] [place] MCV (RBC) [Entitic vol] 93.7 fL Normal 80.0-100.0 C [facility] Comment on above: Order Comment: Speci men Type: BLOOD SPECIMENOrdering Facility: [facility] Address: [address] [place] [address] Performed By: #### 5 7021-8 ####[facility] LABCLIA [id number] [place] [address] [place] Monocytes (Bld) [#/Vol] 0.49 10*3/uL Normal <0.87 [facility] Comment on above: Order Comment: Speci men Type: BLOOD SPECIMENOrdering Facility: [facility] Address: [address] [place] [address] Performed By: #### 5 7021-8 ####[facility] LABCLIA [id number] [place] [address] [place] Monocytes/100 WBC (Bld) 7.3 % Normal [facility] Comment on above: Order Comment: Speci men Type: BLOOD SPECIMENOrdering Facility: [facility] Address: [address] [place] [address] Performed By: #### 5 7021-8 ####[facility] LABCLIA [id number] [place] [address] [place] Neutrophils (Bld) [#/Vol] 3.61 10*3/uL Normal 1.45-7.50 [facility] Comment on above: Order Comment: Speci men Type: BLOOD SPECIMENOrdering Facility: [facility] Address: [address] [place] [address] Performed By: #### 5 7021-8 ####[facility] LABCLIA [id number] [place] [address] [place] Neutrophils/100 WBC (Bld) 54.1 % Normal [facility] Comment on above: Order Comment: Speci men Type: BLOOD SPECIMENOrdering Facility: [facility] Address: [address] [place] [address] Performed By: #### 5 7021-8 ####[facility] LABCLIA [id number] [place] [address] [place] Nucleated RBC (Bld) [#/Vol] 10*3/uL Normal <0.01 [facility] Comment on above: Order Comment: Speci men Type: BLOOD SPECIMENOrdering Facility: [facility] Address: [address] [place] [address] Performed By: #### 5 7021-8 ####[facility] LABCLIA [id number] [place] [address] [place] Nucleated RBC/100 WBC (Bld) [Ratio] 0.0 /100 WBC Normal [facility] Comment on above: Order Comment: Speci men Type: BLOOD SPECIMENOrdering Facility: [facility] Address: [address] [place] [address] Performed By: #### 5 7021-8 ####[facility] LABIA [id number] [place] [address] [place] Platelet mean volume (Bld) [Entitic vol] Normal [facility] Comment on above: Order Comment: Speci men Type: BLOOD SPECIMENOrdering Facility: [facility] Address: [address] [place] [address] Result Comment: Unab le to Report. Performed By: #### 5 7021-8 ####[facility] LABIA [id number] [place] [address] [place] Platelets (Bld) [#/Vol] Normal C [facility] Comment on above: Order Comment: Speci men Type: BLOOD SPECIMENOrdering Facility: [facility] Address: [address] [place] [address] Result Comment: Revi ewed. Results checked and verified.No clot detected.Platelets Clumped Estimate Low. Performed By: #### 5 7021-8 ####[facility] LABCLIA [id number] [place] [address] [place] RBC (Bld) [#/Vol] 5.37 10*6/uL Normal 4.20-6.00 [facility] Comment on above: Order Comment: Speci men Type: BLOOD SPECIMENOrdering Facility: [facility] Address: [address] [place] [address] Performed By: #### 5 7021-8 ####[facility] LABCLIA [id number] [address] [address] [place] WBC (Bld) [#/Vol] 6.69 10*3/uL Normal 3.70-11.00 [facility] Comment on above: Order Comment: Speci men Type: BLOOD SPECIMENOrdering Facility: [facility] Address: [address] [place] [address] Performed By: #### 5 7021-8 ####[facility] LABCLIA [id number] [place] [address] [place] Comprehensive metabolic 2000 panelon 04-15-2024 Albumin [Mass/Vol] 4.0 g/dL Normal 3.9-4.9 [facility] Comment on above: Order Comment: Speci men Type: BLOOD SPECIMENOrdering Facility: [facility] Address: [address] [place] [address] Performed By: #### 2 4323-8, 17545-5, TSHRF, 3024-7 ####[facility] LABCLIA [id number] [place] [address] [place] ALP [Catalytic activity/Vol] 83 U/L Normal 38-113 [facility] Comment on above: Order Comment: Speci men Type: BLOOD SPECIMENOrdering Facility: [facility] Address: [address] [place] [address] Performed By: #### 2 4323-8, 83564-5, TSHRF, 3024-7 ####[facility] LABCLIA [id number] [place] [id number] [place] ALT [Catalytic activity/Vol] 17 U/L Normal 10-54 [facility] Comment on above: Order Comment: Speci men Type: BLOOD SPECIMENOrdering Facility: [facility] Address: [address] [place], [place] [address] Performed By: #### 2 4323-8, 56369-1, [place], 3023-09 ####[facility] LABCLIA [id number] [place] [id number] [place] Anion gap [Moles/Vol] 12 mmol/L Normal 8-15 [facility] Comment on above: Order Comment: Speci men Type: BLOOD SPECIMENOrdering Facility: [facility] Address: [address] [place] [address] Performed By: #### 2 4323-8, 38800-4, [place], 3023-09 ####[facility] LABCLIA [id number] [place] [address] [place] AST [Catalytic activity/Vol] 23 U/L Normal 14-40 [facility] Comment on above: Order Comment: Speci men Type: BLOOD SPECIMENOrdering Facility: [facility] Address: [address] [place] [address] Performed By: #### 2 4323-8, 36680-9, [place], 3023-09 ####[facility] LABCLIA [id number] [place] [address] [place] Bilirubin [Mass/Vol] 0.4 mg/dL Normal 0.2-1.3 [facility] Comment on above: Order Comment: Speci men Type: BLOOD SPECIMENOrdering Facility: [facility] Address: [address] [place], [place] [address] Performed By: #### 2 4323-8, 05600-6, TSHGM, 3023-09 ####[facility] LABCLIA [id number] [place] [id number] [place] Calcium [Mass/Vol] 9.4 mg/dL Normal 8.5-10.2 [facility] Comment on above: Order Comment: Speci men Type: BLOOD SPECIMENOrdering Facility: [facility] Address: [address] [place] [address] Performed By: #### 2 4323-8, 66156-3, [place], 7 ####[facility] LABCLIA [id number] [place] [address] [place] Chloride [Moles/Vol] 103 mmol/L Normal 98-107 [facility] Comment on above: Order Comment: Speci men Type: BLOOD SPECIMENOrdering Facility: [facility] Address: [address] [place] [address] Performed By: #### 2 4323-8, 77119-0, EDEL, 7 ####[facility] LABCLIA [id number] [place] [address] [place] CO2 [Moles/Vol] 25 mmol/L Normal 22-30 [facility] Comment on above: Order Comment: Speci men Type: BLOOD SPECIMENOrdering Facility: [facility] Address: [address] [place] [address] Performed By: #### 2 4323-8, 55067-3, [place]DEL, 7 ####[facility] LABCLIA [id number] [place] [address] [place] Creatinine [Mass/Vol] 1.61 mg/dL High 0.73-1.22 [facility] Comment on above: Order Comment: Speci men Type: BLOOD SPECIMENOrdering Facility: [facility] Address: [address] [place] [address] Performed By: #### 2 4323-8, 56230-1, EDEL, 7 ####[facility] LABCLIA [id number] [place] [address] [place] Creatinine and Glomerular filtration rate.predicted panel (S/P/Bld) 45 mL/min/1.73m??? Low >=60 [facility] Comment on above: Order Comment: Chadwick reid Type: BLOOD SPECIMENOrdering Facility: [facility] Address: [address] [place] [address] Result Comment: Cathy mated Glomerular Filtration Rate (eGFR) is calculated using the 2020 CKD-EPI creatinine equation. This equation utilizes serum creatinine, sex, and age as parameters. The creatinine assay has traceable calibration to isotope dilution-mass spectrometry. Refer to KDIGO guidelines for clinical interpretation. In patients with unstable renal function, e.g. those with acute kidney injury, the eGFR may not accurately reflect actual GFR. Performed By: #### 2 4323-8, 86525-1, [facility], 3023- ####[facility] LABCLIA [id number] [place] [address] [place] Glucose [Mass/Vol] 159 mg/dL High 74-99 [facility] Comment on above: Order Comment: Chadwick reid Type: BLOOD SPECIMENOrdering Facility: [facility] Address: [address] [place] [address] Result Comment: The [place] Diabetes Association (ADA) provides guidance for cutoff [...] Standards of Medical Care in Diabetes 2016, [place] Diabetes Association. Diabetes Care. 2016.39(Suppl 1). Performed By: #### 2 4323-8, 46351-9, [facility], 3023-09 ####[facility] LABCLIA [id number] [place] [id number] [place] Potassium [Moles/Vol] 4.0 mmol/L Normal 3.7-5.1 [facility] Comment on above: Order Comment: Chadwick reid Type: BLOOD SPECIMENOrdering Facility: [facility] Address: [address] [place] [address] Performed By: #### 2 4323-8, 90732-5, [place], 7 ####[facility] LABCLIA [id number] [address] [address] [place] Protein [Mass/Vol] 7.6 g/dL Normal 6.3-8.0 [facility] Comment on above: Order Comment: Speci men Type: BLOOD SPECIMENOrdering Facility: [facility] Address: [address] [place] [address] Performed By: #### 2 4323-8, 28822-9, [place], 7 ####[facility] LABCLIA [id number] [place] [address] [place] Sodium [Moles/Vol] 140 mmol/L Normal 136-144 [facility] Comment on above: Order Comment: Speci men Type: BLOOD SPECIMENOrdering Facility: [facility] Address: [address] [place] [address] Performed By: #### 2 4323-8, 34317-1, [place], 7 ####[facility] LABCLIA [id number] [place] [address] [place] Urea nitrogen [Mass/Vol] 16 mg/dL Normal 9-24 [facility] Comment on above: Order Comment: Speci men Type: BLOOD SPECIMENOrdering Facility: [facility] Address: [address] [place] [address] Performed By: #### 2 4323-8, 35707-4, EDEL, 7 ####[facility] LABCLIA [id number] [place] [address] [place] HbA1c (Bld)on 04-15-2024 Average glucose Estimated from glycated hemoglobin (Bld) [Mass/Vol] 194 mg/dL Normal [facility] Comment on above: Order Comment: Speci men Type: BLOOD SPECIMENOrdering Facility: [facility] Address: [address] [place] [address] Result Comment: eAG: (Estimated average glucose) is a calculated value from HgbA1c and is scheduling representative of the average blood glucose level in the last 2-3 month period. Performed By: #### 5 5454-3 ####[facility] LABCLIA [id number] [place] [address] [place] HbA1c (Bld) [Mass fraction] 8.4 % High 4.3-5.6 [facility] Comment on above: Order Comment: Speci [facility] Type: BLOOD SPECIMENOrdering Facility: [facility] Address: [address] [place] [address] Result Comment: [place] Diabetes Association guidelines indicate that patients with HgbA1c in the range 5.7-6.4% are at increased risk for development of diabetes, and intervention by lifestyle modification may be beneficial. HgbA1c greater or equal to 6.5% is considered diagnostic of diabetes. Performed By: #### 5 5454-3 ####[facility] LABIA [id number] [place] [address] [place] Lipid 1996 panelon 5 Cholesterol [Mass/Vol] 106 mg/dL Normal <200 [facility] Comment on above: Order Comment: Speci [facility] Type: BLOOD SPECIMENOrdering Facility: [facility] Address: [address] [place] [address] Result Comment: <200 mg/dL, Desirable 200-239 mg/dL, Borderline high >239 mg/dL, High Performed By: #### 2 4323-8, 78934-8, TSHRF, 3024-7 ####[facility] LABIA [id number] [place] [address] [place] Cholesterol in HDL [Mass/Vol] 32 mg/dL Low >39 [facility] Comment on above: Order Comment: Speci [facility] Type: BLOOD SPECIMENOrdering Facility: [facility] Address: [address] [place] [address] Result Comment: 40-5 9 mg/dL, Acceptable >59 mg/dL, High: Negative risk factor for coronary heart disease <40 mg/dL, Low: Positive risk factor for coronary heart disease Performed By: #### 2 4323-8, 31953-8, [facility], 3023-09 ####[facility] LABCLIA [id number] [address] [address] [place] Cholesterol in LDL [Mass/Vol] 22 mg/dL Normal <100 [facility] Comment on above: Order Comment: Speci men Type: BLOOD SPECIMENOrdering Facility: [facility] Address: [address] [place] [address] Result Comment: <100 mg/dL, Optimal 100-129 mg/dL, Near optimal/above optimal 130-159 mg/dL, Borderline high 160-189 mg/dL, High >189 mg/dL, Very high Secondary prevention optimal LDL Cholesterol levels are recommended to be < 70 mg/dL Performed By: #### 2 4323-8, 29798-5, [facility], 3023-09 ####[facility] LABCLIA [id number] [place] [address] [place] Cholesterol in LDL/Cholesterol in HDL [Mass ratio] 0.69 {ratio} Normal <2.54 [facility] Comment on above: Order Comment: Speci men Type: BLOOD SPECIMENOrdering Facility: [facility] Address: [address] [place] [address] Result Comment: Daniela olvera: 1. National Cholesterol Education Program ATP III Guideline At-A-Glance Quick Desk Reference: National Heart, Lung, and Blood [place]. National Institutes of Health. 2001: NIH Publication No. 01-3305. 2. An International Atherosclerosis Society position paper: global recommendations for the management of dyslipidemia: executive summary, Atherosclerosis. 2014: 232(2):410-413. Performed By: #### 2 4323-8, 79516-3, [facility], 3023-09 ####[facility] LABCLIA [id number] [place] [id number] [place] Cholesterol in VLDL [Mass/Vol] 52 mg/dL High <30 [facility] Comment on above: Order Comment: Speci men Type: BLOOD SPECIMENOrdering Facility: [facility] Address: [address] [place] [address] Performed By: #### 2 4323-8, 46243-7, TSHRF, 3023-09 ####[facility] LABCLIA [id number] [address] [address] [place] Cholesterol non HDL [Mass/Vol] 74 mg/dL Normal <130 [facility] Comment on above: Order Comment: Speci men Type: BLOOD SPECIMENOrdering Facility: [facility] Address: [address] [place] [address] Result Comment: <130 mg/dL, Optimal 130-159 mg/dL, Near optimal/above optimal 160-189 mg/dL, Borderline high 190-219 mg/dL, High >219 mg/dL, Very high Secondary prevention optimal non HDL Cholesterol levels are recommended to be <100 mg/dL Performed By: #### 2 4323-8, 72434-4, TSH, 3023-09 ####[facility] LABCLIA [id number] [place] [address] [place] Cholesterol.total/Gerri sterol in HDL [Mass ratio] 3.31 {ratio} Normal <5.10 [facility] Comment on above: Order Comment: Speci men Type: BLOOD SPECIMENOrdering Facility: [facility] Address: [address] [place] [address] Performed By: #### 2 4323-8, 69930-2, TSH, 3023-09 ####[facility] LABCLIA [id number] [place] [id number] [place] FASTING TIME 12 hrs Normal [facility] Comment on above: Order Comment: Speci men Type: BLOOD SPECIMENOrdering Facility: [facility] Address: [address] [place] [address] Performed By: #### 2 4323-8, 64439-5, TSHRF, 3023-09 ####[facility] LABCLIA [id number] [place] [address] [place] Triglyceride [Mass/Vol] 261 mg/dL High <150 C [facility] Comment on above: Order Comment: Speci men Type: BLOOD SPECIMENOrdering Facility: [facility] Address: [address] [place] [address] Result Comment: <150 mg/dL, Normal 150-199 mg/dL, Borderline high 200-499 mg/dL, High >499 mg/dL, Very high Performed By: #### 2 4323-8, 61323-7, TSHRF, 3023-09 ####[facility] LABCLIA [id number] [place] [address] [place] T4 Free SerPl-mCncon 025 Free T4 [Mass/Vol] 1.5 ng/dL Normal 0.9-1.7 [facility] Comment on above: Order Comment: Speci men Type: BLOOD SPECIMENOrdering Facility: [facility] Address: [address] [place] [address] Performed By: #### 2 4323-8, 47444-5, TSHRF, 3023-09 ####[facility] LABIA [id number] [place] [address] [place] TSH W/REFLEX FT4on 5 TSH Qn 0.141 m[IU]/L Low 0.270-4.20 0 [facility] Comment on above: Order Comment: Speci men Type: BLOOD SPECIMENOrdering Facility: [facility] Address: [address] [place] [address] Performed By: #### 2 4323-8, 47058-8, TSHRF, 3023-09 ####[facility] LABCLIA [id number] [place] [address] [place] CNPTosha 2024 CNPN Telephone ([facility]) EMELIA JOHNSON ([id number]) 1950 M Date Time Provider Department 04/11/24 JENAE SANTAMARIA During your visit today, we recorded the following information about you: Judie Garrido MA 2024 12:24 PM Signed Marcy [phone] nurse called to report family states pt's having some dark urine and a change in mental status, asking for an order for a urine and a verbal ok for pt Please advise Jenae Santamaria MD 2024 12:58 PM Signed Yes, please get urinalysis with culture and get sample via straight cath or with maddox catheter change MD Salvador Jensen Benita, MD 2024 12:58 PM Signed Addended by: JENAE SANTAMARIA on: 2024 12:58 PM Modules accepted: Orders Judie Garrido MA 2024 3:12 PM Signed Marcy nurse advised Allergies As of Date: 2024 Noted Allergy Reaction LIPITOR (ATORVASTATIN) 11/17/2013 14 - Other: See Comments Comments: body aches Date Reviewed: 04/07/2024 Reviewed by: Jenae Santamaria MD - Fully Assessed Reason for Visit: Patient Question [8297] Primary Visit Diagnosis:Urinary tract infection associated with indwelling urethral catheter, initial encounter ([facility]) ([facility]) [T83.511A, N39.0] Order(s):URINALYSIS (WITH MICROSCOPIC) WITH CULTURE IF INDICATED [SQUACII] Order #: [id number] FUTURE Prescriptions as of 2024 - levothyroxine (SYNTHROID) 100 mcg tablet Take 1 tablet by mouth daily before breakfast. - pantoprazole DR (PROTONIX) 40 mg tablet Take 1 tablet by mouth two times a day. - ELIQUIS 5 mg tab(s) Take 1 tablet by mouth two times a day. - finasteride (PROSCAR) 5 mg tablet Take 1 tablet by mouth once daily. - quyvnzainfo-ftxhcrdcb-kzsfy ter (TRELEGY ELLIPTA) 100-62.5-25 mcg inhalation powder Inhale [...] BULK, MISC - Blood Pressure Test Kit-Large (Senscient BP MONITOR) 1 Each two times a [...] aortic aneurysm (TAAA) without*11/21/2013 02/08/2020 Atherosclerosis of [place] artery of extremity w*11/21/2013 Other hyperlipidemia [E78.49] Unspecified hypothyroidism [E03.9] Smoker [F17.200] 01/27/2015 Chronic ischemic right MCA stroke [Z86.73] 02/08/2020 CAD (coronary artery disease), [place]nine [place] coronary *12/27/2013 Postprocedural hypotension [I95.81] 12/27/2013 09/25/2020 [...] Peripherally inserted central catheter (PICC) i*10/08/2020 10/18/2020 (more content not included)... Normal [facility] CNPNon 04-10-2024 CNPN Telephone ([facility]) EMELIA JOHNSON ([id number]) 1950 M Date Time Provider Department 04/10/24 MARY VALE [facility] During your visit today, we recorded the following information about you: Jese Cerda 04/10/2024 4:46 PM Signed Spoke with patients daughter, she declined to schedule at this time. Stated they would have to go over schedules and trying to get everything done in [place] or as close to home as possible Needs to schedule testing with CS then schedule with any vascular New Patient Referral from Jenae Santamaria [phone] for AAA without Rupture, Hx of Aorta-Femoral [...] 1 tablet by mouth once daily. - tmdxcznokxp-pbtytsnts-vxxbh ter (TRELEGY ELLIPTA) 100-62.5-25 mcg inhalation powder Inhale [...] BULK, MISC - Blood Pressure Test Kit-Large (Senscient BP MONITOR) 1 Each two times a day. - ergocalciferol 50,000 unit capsule (VITAMIN D2, DRISDOL) Take 1 capsule by mouth one time a week. - flash glucose sensor (MuzookaSTYLE HEMA 14 DAY SENSOR) kit 1 Each four times daily. - Fenofibrate 160 mg tablet Take 1 tablet by mouth once daily. 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 02/08/2020 Atherosclerosis of [place] artery of extremity w*11/21/2013 Other hyperlipidemia [E78.49] Unspecified hypothyroidism [E03.9] Smoker [F17.200] 01/27/2015 Chronic ischemic right MCA stroke [Z86.73] 02/08/2020 CAD (coronary artery disease), [place] coronary *12/27/2013 Postprocedural hypotension [I95.81] 12/27/2013 09/25/2020 [...] Encounter Status:Closed by JESE CERDA on 04/10/24 [facility] CNOVon 04-07-2024 CNOV Office Visit ([facility]) EMELIA JOHNSON ([id number]) 1950 M Date Time Provider Department 04/07/24 9:20 AM JENAE SANTAMARIA During your visit today, we recorded the following information about you: Pulse Respiration Blood pressure Weight 97/minute 12/minute 126/72 81.6 kg Height 1.702 m Jenae Santamaria MD 04/07/2024 6:05 PM Signed [facility] [address] [place] [address] Date of Evaluation: 04/07/2024 Patient Name: Emelia Johnson : 1950 Chief Complaint: Patient presents with: 4 month follow up Subjective HPI Mr. Johnson is a 73 year old male who presents for follow up visit. Patient presents with son. Patient was admitted at [facility] in December for acute encephalopathy due [...] rupture Aneurysm - Abdominal Aorta Atherosclerosis of [place]-nine [place] arteries of the extremities with intermittent claudication [...] Retention of urine Stroke (cerebrum) ([facility]) Unspecified hemorrhoids without mention of complication Hemorrhoids Unspecified hypothyroidism Hypothyroidism PAST SURGICAL HISTORY Procedure Laterality Date BYP OTH/THN VEIN AORTOBIFEMORAL 2013 aortobifem LAPAROSCOPIC HEMICOLECTOMY colostomy PAST SURGICAL HISTORY OF Right 02/13/2020 [facility] FAMILY HISTORY Problem Relation Age of Onset Diabetes Father Stroke ( age 89) Diabetes Mother Stroke ( age 88) Stroke Mother Diabetes Sister "Brain " ( age 64) Diabetes Brother other (Old [...] EC tablet Take 1 tablet by mouth onc (more content not included)... Normal [facility] CNPN Telephone ([facility]) EMELIA JOHNSON ([id number]) 1950 M Date Time Provider Department 04/07/24 JENAE SANTAMARIA [facility] During your visit today, we recorded the following information about you: Migdalia López 2024 10:57 AM Addendum Referral in portal, confirmation # [id number] Migdalia López April 07, [address] [facility] 04/10/24 07:28 Patients daughter declined to schedule at this time, stating they would need to look into scheduling and if they can find any where in [place] Migdalia López 2024 Allergies As of Date: 04/07/2024 [...] 1 tablet by mouth once daily. - btlvqavgmki-tqkugsesf-rxxos ter (TRELEGY ELLIPTA) 100-62.5-25 mcg inhalation powder Inhale [...] BULK, MISC - Blood Pressure Test Kit-Large (Senscient BP MONITOR) 1 Each two times a [...] aortic aneurysm (TAAA) without*11/21/2013 02/08/2020 Atherosclerosis of twenty-nine [place] artery of extremity w*11/21/2013 Other hyperlipidemia [E78.49] Unspecified hypothyroidism [E03.9] Smoker [F17.200] 01/27/2015 Chronic ischemic right MCA stroke [Z86.73] 02/08/2020 CAD (coronary artery disease), twenty-nine palms coronary *12/27/2013 Postprocedural hypotension [I95.81] 12/27/2013 09/25/2020 [...] infection associated with indwell*10/13/2020 Encounter Status:Closed by MIGDALIA LÓPEZ on 04/07/24 [facility] CNPTosha 03-01-2024 CNPN Telephone (AGSAM) EMELIA JOHNSON ([id number]) 1950 M Date Time Provider Department 03/01/24 JENAE SANTAMARIA AGSAM During your visit today, we recorded the following information about you: Judie Garrido MA 03/01/2024 1:21 PM Signed Logan from outpatient physical therapist assistant from [facility] called (no call back number given) [...] as needed for wheezing/shortness of breath. - qrnxaibxsid-cntxhydhl-mxfnx ter (TRELEGY ELLIPTA) 100-62.5-25 mcg inhalation powder Inhale [...] BULK, MISC - Blood Pressure Test Kit-Large (Senscient BP MONITOR) 1 Each two times a day. - ergocalciferol 50,000 unit capsule (VITAMIN D2, DRISDOL) Take 1 capsule by mouth one time a week. - flash glucose sensor (MuzookaSTYLE HEMA 14 DAY SENSOR) kit 1 Each four times daily. - Fenofibrate 160 mg tablet Take 1 tablet by mouth once daily. 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 Normal [facility] Bedside Glucoseon 02-23-2024 FINGERSTICK GLU 202 mg/dL High 74-106 [facility] Comment on above: Result Comment: KALA VALENZUELA OF PATIENT CARE PER NURSING PROTOCOL Performed By: #### L [id number] ####[facility] [id number], [address] EGD Reporton 02-23-2024 EGD Report Normal [facility] MR/POSTOP.ANEon 02-23-2024 MR/POSTOP.ANE Normal [facility] MR/PFWCIPLZ8re 02-23-2024 MR/POSTOPAN2 Normal [facility] Special Stain Group Ion 11- Special Stain Group I Normal [facility] Comment on above: Performed By: #### P SSI ####[facility] [id number] [place], [place], [address] CNPNon 02-[facility] ([id number]) 1950 M Date Time Provider Department 02/17/24 ZACHARY LEWIS During your visit today, we recorded the following information about you: Shirley Lyons 02/17/2024 11:59 AM Signed Received an outside vascular surgery consult from [facility]. Scanned into patient chart. Called patient to schedule and spoke to patient's daughter and she stated they did not know they were being referred somewhere else and would call [facility] to find out why. Patient is not [...] as needed for wheezing/shortness of breath. - jgizfpebdva-sgigeweol-amymq ter (TRELEGY ELLIPTA) 100-62.5-25 mcg inhalation powder Inhale [...] BULK, MISC - Blood Pressure Test Kit-Large (Senscient CHOICE BP MONITOR) 1 Each two times [...] aortic aneurysm (TAAA) without*11/21/2013 02/08/2020 Atherosclerosis of twenty-nine [place] artery of extremity w*11/21/2013 Other hyperlipidemia [E78.49] Unspecified hypothyroidism [E03.9] Smoker [F17.200] 01/27/2015 Chronic ischemic right MCA stroke [Z86.73] 02/08/2020 CAD (coronary artery disease), twenty-nine palms coronary *12/27/2013 Postprocedural hypotension [I95.81] 12/27/2013 09/25/2020 [...] Encounter Status:Closed by SHIRLEY LYONS on 02/17/24 Normal [facility] MR/BMS.BVSon 02-09-2024 MR/BMS.BVS [facility] 02-07-2024 CNPN Telephone (UROLAE) EMELIA JOHNSON ([id number]) 1950 M Date Time Provider Department 02/07/24 CAMERON HERNANDEZ During your visit today, we recorded the following information about you: Ricarda Bejarano 02/07/2024 2:50 PM Signed Home healthcare called asking if you could give them a standing order for urine culture for UTI symptoms. If order place needs to be faxed to [phone] Please advise. Ricarda Kim 02/09/2024 2:15 PM [...] as needed for wheezing/shortness of breath. - zqzqopdwyyx-nfxucktge-exdbt ter (TRELEGY ELLIPTA) 100-62.5-25 mcg inhalation powder Inhale [...] BULK, MISC - Blood Pressure Test Kit-Large (Senscient CHOICE BP MONITOR) 1 Each two times [...] aortic aneurysm (TAAA) without*11/21/2013 02/08/2020 Atherosclerosis of twenty-nine palms artery of extremity w*11/21/2013 Other hyperlipidemia [E78.49] Unspecified hypothyroidism [E03.9] Smoker [F17.200] 01/27/2015 Chronic ischemic right MCA stroke [Z86.73] 02/08/2020 CAD (coronary artery disease), twenty-nine [place] coronary *12/27/2013 Postprocedural hypotension [I95.81] 12/27/2013 09/25/2020 [...] Encounter Status:Closed by RICARDA BEJARANO on 02/09/24 [facility] CNPN Telephone (AGSAM) EMELIA JOHNSON ([id number]) 1950 M Date Time Provider Department 02/07/24 JENAE SANTAMARIA AGS During your visit today, we recorded the following information about you: Cory Lowe MA 02/07/2024 10:58 AM Signed Lesly from [facility] calling for clarification on catheter orders, states current orders say change once every 2 months, wants to know if it should be once a month? PH [phone] Jenae Santamaria MD 02/07/2024 12:31 PM Signed It should be monthly, but patient sees urology so not sure if they feel differently about schedule for catheter exchange. Would recommend Home Health reach out to patient's urologist, MD Dave Pierce Div[place], [place] 02/07/2024 2:37 PM Signed Marcy advised, verbalized understanding Allergies As of Date: 02/07/2024 [...] as needed for wheezing/shortness of breath. - sepswbcxyml-csvktxbfu-bnqax ter (TRELEGY ELLIPTA) 100-62.5-25 mcg inhalation powder Inhale [...] BULK, MISC - Blood Pressure Test Kit-Large (Senscient BP MONITOR) 1 Each two times a [...] aortic aneurysm (TAAA) without*11/21/2013 02/08/2020 Atherosclerosis of twenty-nine palms artery of extremity w*11/21/2013 Other hyperlipidemia [E78.49] Unspecified hypothyroidism [E03.9] Smoker [F17.200] 01/27/2015 Chronic ischemic right MCA stroke [Z86.73] 02/08/2020 CAD (coronary artery disease), twenty-nine palms coronary *12/27/2013 Postprocedural hypotension [I95.81] 12/27/2013 09/25/2020 [...] Encounter Status:Closed by JENAE SANTAMARIA on 02/07/24 [facility] 01-21-2024 CNPN Telephone (AGSAM) EMELIA JOHNSON ([id number]) 1950 M Date Time Provider Department 01/21/24 JENAE SANTAMARIA AGSAM During your visit today, we recorded the following information about you: Cory Lowe MA 01/21/2024 4:25 PM Signed Called to schedule pt per your request, unidentified lady who answered the phone stating pt currently is at [facility] for rehab Allergies As of Date: 01/21/2024 [...] as needed for wheezing/shortness of breath. - vrehosnptvr-dohysicyl-vzgru ter (TRELEGY ELLIPTA) 100-62.5-25 mcg inhalation powder Inhale [...] BULK, MISC - Blood Pressure Test Kit-Large (Senscient CHOICE BP MONITOR) 1 Each two times [...] aortic aneurysm (TAAA) without*11/21/2013 02/08/2020 Atherosclerosis of twenty-nine palms artery of extremity w*11/21/2013 Other hyperlipidemia [E78.49] Unspecified hypothyroidism [E03.9] Smoker [F17.200] 01/27/2015 Chronic ischemic right MCA stroke [Z86.73] 02/08/2020 CAD (coronary artery disease), twenty-nine palms coronary *12/27/2013 Postprocedural hypotension [I95.81] 12/27/2013 09/25/2020 [...] infection associated with indwell*10/13/2020 Encounter Status:Closed by CORY LOWE on 01/31/24 Normal [facility] US Lower extremity vein - le fton 09-15-2023 IMPRESSION: Patient' s soft tissues. Firm and compression not possible. Imaging also limited. Negative study for proximal DVT in the left lower extremity. Nondiagnostic study for calf DVT in the left lower extremity. Nondiagnostic study for superficial thrombophlebitis in the imaged segments of the left lower extremity. Payroll Analyst: PSCKristen Transcribe Date/Time: Sep 15 2023 3:56P Dictated by : EMANUEL GRANT DO This examination was interpreted and the report reviewed and electronically signed by: EMANUEL GRANT DO on Sep 15 2023 4:00PM EST [facility] * * *Final Report* * * DATE OF EXAM: Sep 15 2023 11:13AM MDU 1006 - US DVT LOWER LT / PROCEDURE REASON: I82.0H3-Elyyy deep vein thrombosis (DVT) of proximal vein of left lower extremit * * * * Physician Interpretation * * * * EXAMINATION: LEFT LOWER EXTREMITY DEEP VENOUS ULTRASOUND WITH DOPPLER IMAGING HISTORY: Clinical information: Acute deep vein thrombosis (DVT) of proximal vein of left lower extremity (HCC) history: Finger on the skin by a registered 9 years and mediastin[address] [facility] the liver shows a of Ultrasound was provided TECHNIQUE: Grayscale with compression maneuvers, color Doppler [...] in a permanent archive. MQ: USLEL_1 COMPARISON: 06/08/2023 RESULT: LEFT LOWER EXTREMITY PROXIMAL DEEP VEINS Distal External Iliac, Common Femoral and proximal Profunda Veins: Compression: Normal Doppler: Normal, spontaneous respirophasic flow. Normal response to augmentation. Femoral vein: Compression: Normal Doppler: Normal, spontaneous flow. Normal response to augmentation. Popliteal vein: Compression: Normal Doppler: Normal, spontaneous flow. Normal response to augmentation. CALF DEEP VEINS Peroneal veins: Not visualized Posterior tibial veins: Not visualized Gastrocnemius and Soleal veins: Not imaged. SUPERFICIAL VEINS: Great saphenous: Not well seen Small saphenous: Not well seen RIGHT LOWER EXTREMITY (FOR COMPARISON) Common Femoral Vein: Compression: Normal Doppler: Normal, spontaneous respirophasic flow. Normal response to augmentation. [facility] Provider, Kwadwo Wagner - 09/15/2023 * * *Final Report* * * DATE OF EXAM: Sep 15 2023 11:13AM U 1006 - US DVT LOWER LT / PROCEDURE REASON: I82.6Z2-Jkfxg deep vein thrombosis (DVT) of proximal vein of left lower extremit * * * * Physician Interpretation * * * * EXAMINATION: LEFT LOWER EXTREMITY DEEP VENOUS ULTRASOUND WITH DOPPLER IMAGING HISTORY: Clinical information: Acute deep vein thrombosis (DVT) of proximal vein of left lower extremity (HCC) history: Finger on the skin by a registered 9 years and mediastinum. [facility] the liver shows a of Ultrasound was provided TECHNIQUE: Grayscale with compression maneuvers, color Doppler [...] in a permanent archive. MQ: USLEL_1 COMPARISON: 06/08/2023 RESULT: LEFT LOWER EXTREMITY PROXIMAL DEEP VEINS Distal External Iliac, Common Femoral and proximal Profunda Veins: Compression: Normal Doppler: Normal, spontaneous respirophasic flow. Normal response to augmentation. Femoral vein: Compression: Normal Doppler: Normal, spontaneous flow. Normal response to augmentation. Popliteal vein: Compression: Normal Doppler: Normal, spontaneous flow. Normal response to augmentation. CALF DEEP VEINS Peroneal veins: Not visualized Posterior tibial veins: Not visualized Gastrocnemius and Soleal veins: Not imaged. SUPERFICIAL VEINS: Great saphenous: Not well seen Small saphenous: Not well seen RIGHT LOWER EXTREMITY (FOR COMPARISON) Common Femoral Vein: Compression: Normal Doppler: Normal, spontaneous respirophasic flow. Normal response to augmentation. IMPRESSION IMPRESSION: Patient's soft tissues. Firm and compression not possible. Imaging also limited. Negative study for proximal DVT in the left lower extremity. Nondiagnostic study for calf DVT in the left lower extremity. Nondiagnostic study for superficial thrombophlebitis in the imaged segments of the left lower extremity. Payroll Analyst: HAYLIE Transcribe Date/Time: Sep 15 2023 3:56P Dictated by : EMANUEL GRANT DO This examination was interpreted and the report reviewed and electronically signed by: EMANUEL GRANT DO on Sep 15 2023 4:00PM [facility] Radiology Study observation (narrative) [facility] US Lower extremity vein - le ftOrdered By: [facility] Provider on 09-15-2023 [facility] Basophil percentageOrdered B y: Aníbal Vela on 06-26-2023 Chloride [Moles/Vol] 112 mmol/L 98-107 [facility] Glucose [Mass/Vol] 140 mg/dL 74-106 [facility] Comment on above: Fasting Glucose resu lt greater than or equal to 126 mg/dL suggests DIABETES MELLITUS per A.D.A. criteria. Potassium [Moles/Vol] 3.9 mmol/L 3.5-5.1 [facility] Sodium [Moles/Vol] 141 mmol/L 136-145 [facility] Laboratory - Chemistry and C hemistry - challengeOrdered By: Aníbal Vela on 06-26-2023 CO2 [Moles/Vol] 22.0 mmol/L 21.0-32.0 [facility] Urea nitrogen/Creatinine [Mass ratio] 10.7 mg/mg 10-20 [facility] No Panel InformationOrdered By: Aníbal Vela on 06-26-2023 Estimated Creatinine Clearance Calc 29.29 ml/min [facility] Estimated GFR (MDRD) Amer 35 mL/min >60 [facility] Comment on above: GFR Calc Estimated GFR (MDRD) Non-Af Amer 29 mL/min >60 [facility] Comment on above: Non- GFR Calc Serum or plasma calcium camille urement (mass/volume)Ordered By: Aníbal Vela on 06-26-2023 Calcium [Mass/Vol] 9.2 mg/dL 8.5-10.1 [facility] Serum or plasma creatinine m easurement (mass/volume)Ordered By: Aníbal Vela on 06-26-2023 Creatinine [Mass/Vol] 2.34 mg/dL 0.70-1.30 [facility] Comment on above: The validity of the calculated GFR & GFRAA in patients over 70 years has not been determined. Clinical correlation is essential. Serum or plasma urea nitroge n measurement (mass/volume)Ordered By: Aníbal Vela on 06-26-2023 Urea nitrogen [Mass/Vol] 25 mg/dL 7-18 [facility] Thin prep Papanicolaou smear with manual screeningOrdered By: Aníbal Vela on 06-26-2023 Thin prep Papanicolaou smear with manual screening 139 mg/dL 74-106 [facility] Comment on above: MANAGEMENT OF PATIEN T CARE PER NURSING PROTOCOL Thin prep Papanicolaou smear with manual screening 7 5-15 [facility] Activated partial thrombopla stin time (aPTT) in platelet poor plasma by coagulation aOrdered By: Luke Salguero on 06-25-2023 aPTT Coag (PPP) [Time] 63.7 s 24.1-36.2 [facility] Basophil percentageOrdered B y: Kulwinder De La O on 06-25-2023 Bilirubin [Mass/Vol] 0.40 mg/dL 0.20-1.00 [facility] Comment on above: For patients on eltr ombopag therapy, use of Dimension [place] TBIL is not recommended. Hemoglobin (Bld) [Mass/Vol] 10.9 g/dL 13.0-16.5 [facility] Protein [Mass/Vol] 6.7 g/dL 6.4-8.2 [facility] WBC (Bld) [#/Vol] 8.1 10*3/uL 4.4-11.0 [facility] Determination of erythrocyte mean corpuscular volume (MCV)Ordered By: Kulwinder De La O on 06-25-2023 MCV (RBC) [Entitic vol] 92.9 fL 80-94 [facility] Erythrocyte distribution wid th ratioOrdered By: Kulwinder De La O on 06-25-2023 Erythrocyte distribution width (RBC) [Ratio] 16.1 % 11.6-14.6 [facility] Erythrocyte distribution wid th standard deviationOrdered By: Kulwinder De La O on 06-25-2023 Erythrocyte distribution width (RBC) [Entitic vol] 54.3 fL 35.1-43.9 [facility] Hematocrit Auto (Bld) [Volum e fraction]Ordered By: Kulwinder De La O on 06-25-2023 Hematocrit (Bld) [Volume fraction] 35.5 % 40-54 [facility] Laboratory - Chemistry and C hemistry - challengeOrdered By: Kulwinder De La O on 06-25-2023 Albumin/Globulin [Mass ratio] 0.5 {ratio} 0.9-2.4 [facility] ALP [Catalytic activity/Vol] 58 U/L 45-117 [facility] ALT [Catalytic activity/Vol] 12 U/L 16-61 [facility] Globulin (S) [Mass/Vol] 4.4 g/dL 2.2-4.2 [facility] Laboratory - Hematology and Cell countsOrdered By: Kulwinder De La O on 06-25-2023 MCH (RBC) [Entitic mass] 28.5 pg 27.0-32.0 [facility] MCHC (RBC) [Mass/Vol] 30.7 g/dL 32-36 [facility] Platelet mean volume (Bld) [Entitic vol] 12.1 fL 6.2-12.0 [facility] Platelets (Bld) [#/Vol] 142 10*3/uL 150-450 [facility] RBC Auto (Bld) [#/Vol]Ordere d By: Kulwinder De La O on 06-25-2023 RBC (Bld) [#/Vol] 3.82 10*6/uL 4.6-6.2 [facility] Serum or plasma trough vanco mycin levelOrdered By: Willian Cook on 06-25-2023 Vancomycin trough [Mass/Vol] 17.0 ug/mL 5.0-15.0 [facility] Comment on above: VANCOMYCIN STANDARED DRUG THERAPY TROUGH LEVEL: 5.0 - 15.0 mg/L VANCOMYCIN HIGH INTENSITY THERAPY TROUGH LEVEL: 15.0 - 20.0 mg/L High Intensity therapy recommended for serious lifethreatening infections include:- Kophlffino-Gnsfwdlhadsv-Csrfilxvk (Ventilator/Healtcare Associated)-Sepsis PLEASE CONTACT PHARMACY SERVICES (#[id number]) FOR INTERPRETATIONOF RESULTS. Thin prep Papanicolaou smear with manual screeningOrdered By: Kulwinder De La O on 06-25-2023 Thin prep Papanicolaou smear with manual screening 2.3 g/dL 3.2-5.0 [facility] Thin prep Papanicolaou smear with manual screening 26 U/L 15-37 [facility] Comment on above: Moderate Hemolysis, Result may be falsely increased. Iron measurement (mass/mass) Ordered By: Kulwinder De La O on 06-24-2023 Iron (Unsp spec) [Mass/Mass] 17 ug/dL 65-175 [facility] Comment on above: Slight Hemolysis, Re sult may be falsely increased. Laboratory - Chemistry and C hemistry - challengeOrdered By: Kulwinder De La O on 06-24-2023 Cobalamin (Vitamin B12) [Mass/Vol] 404 pg/mL 211-911 [facility] Ferritin [Mass/Vol] 103 ng/mL 26-388 [facility] No Panel InformationOrdered By: Kulwinder De La O on 06-24-2023 Folate 10.10 ng/mL 3.1-55.4 [facility] Comment on above: Slight Hemolysis, Re sult may be falsely increased. Total Iron Binding Capacity 198 ug/dL 250-450 [facility] Serum or plasma iron saturat ion measurement (mass fraction)Ordered By: Kulwinder De La O on 06-24-2023 Iron saturation [Mass fraction] 8.6 % 15.0-55.0 [facility] Absolute lymphocyte countOrd ered By: Willian Cook on 06-23-2023 Lymphocytes Auto (Unsp spec) [#/Vol] 0.36 10*3/uL 0.83-4.51 [facility] Automated lymphocyte count a s percentage of total leukocytesOrdered By: Willian Cook on 06-23-2023 Lymphocytes/100 WBC Auto (Unsp spec) 2.1 % 19-41 [facility] Basophil percentageOrdered B y: Willian Cook on 06-23-2023 Basophil percentage 3.3 mg/dL 2.5-4.9 [facility] Basophils/100 WBC (Bld) 0.2 % 0-1 [facility] Eosinophils/100 WBC (Bld) 0.0 % 0-5 [facility] Monocytes/100 WBC (Bld) 1.8 % 0-10 [facility] Neutrophils (Bld) [#/Vol] 16.2 10*3/uL 2.0-7.7 [facility] Neutrophils/100 WBC (Bld) 95.2 % 47-70 [facility] Basophil percentageOrdered B y: Luke Salguero on 06-23-2023 Lactate [Moles/Vol] 2.7 mmol/L 0.4-2.0 [facility] Comment on above: Critical Result(s) C alled at: 03:00:01 06/23/2023 by: Deandre Bryant. to [facility]. Results read back by same. Culture, urineOrdered By: Gregory Salguero on 06-23-2023 Bacteria identified Cx Nom (U) Presumptive E. coli [facility] Immature granulocytes/100 WB C Auto (Bld)Ordered By: Willian Cook on 06-23-2023 Immature granulocytes/100 WBC (Bld) 0.700 % 0.0-0.9 [facility] Comment on above: IG% - Immature Granu locytes (promyelocytes, myelocytes and metamyelocytes) > 1% indicates that a LEFT SHIFT is Present. Laboratory - Chemistry and C hemistry - challengeOrdered By: Willian Cook on 06-23-2023 Magnesium [Mass/Vol] 1.7 mg/dL 1.6-2.6 [facility] Laboratory - CoagulationOrde red By: Luke Salguero on 06-23-2023 INR Coag (Bld) [Relative time] 1.2 {INR} [facility] PT Coag (PPP) [Time] 15.3 s 11.7-14.9 [facility] - Drug toxicology Ordered By: Luke Salguero on 06-23-2023 Amphetamines Ql (U) Negative <1000 ng/mL [facility] Benzodiazepines Ql (U) Negative < 200 ng/mL [facility] Cannabinoids Screen Ql (U) Negative < 50 ng/mL [facility] Cocaine Ql (U) Negative < 300 ng/mL [facility] Opiates Ql (U) Negative < 300 ng/mL [facility] Laboratory - Hematology and Cell countsOrdered By: Willian Cook on 06-23-2023 Nucleated RBC/100 WBC (Bld) [Ratio] 0 % 0-5 [facility] MRSA DNA RYANNE+probe Ql (Nose) Ordered By: Luke Salguero on 06-23-2023 MRSA (PCR) Meth. resistant Stap h. aureus [facility] No Panel InformationOrdered By: Luke Salguero on 06-23-2023 D-Dimer Quantitative (PE/DVT) 7.81 FEU/ug/m 0.27-0.49 [facility] Comment on above: D-Dimer ELEVATED (>0 .49): Additional studies and clinicalassessments are indicated to conclude diagnosis of:Deep Vein Thrombosis (DVT) or Pulmonary Embolism (PE)CRITICAL VALUE VERIFIED. CALLED TO [id number] Judie Fleming.RESULTS READ BACK BY SAME . MDMA (Ecstasy) Screen Negative < 500 ng/mL [facility] Streptococcus pneumoniae Antigen (M [facility] Urine Barbiturates Screen Negative < 200 ng/mL [facility] Urine Drug Screen Comment [facility] Comment on above: CONFIRMATORY TESTING FOR ALL POSITIVE URINE DRUG SCREENRESULTS WILL ONLY BE SENT OUT UPON PHYSICIAN ORDER. VISTA Urine Drug Screen methods provide only preliminaryanalytical test results. A more specific alternate chemicalmethod must be used in order to obtain a confirmedanalytical result. Gas chromatography/mass spectrometery(GC/MS) is the preferred confirmatory method. Clinicalconsideration and professional judgement should be appliedto any drug of abuse test result, particularly whenpreliminary positive results are used. URINE TCA TESTING MUST BE ORDERED SEPARATELY. USE TESTMNEMONIC: [facility] Urine Methadone Screen Negative < 300 ng/mL [facility] Troponin I High Sensitivity 18 pg/mL 3.0-78.0 [facility] Comment on above: Please Note: [place] t Units and Gender Specific Reference Ranges. For more information see Policy Stat Procedure [place] High Sensitivity Troponin (TNIH) and attachments. Serum or plasma thyroid stim ulating hormone (TSH) measurement (units/volume)Ordered By: Luke Salguero on 06-23-2023 TSH Qn 7.75 uIU/mL 0.358-3.74 [facility] Thin prep Papanicolaou smear with manual screeningOrdered By: Luke Salguero on 06-23-2023 Thin prep Papanicolaou smear with manual screening 0.81 ng/dL 0.76-1.46 [facility] Urine Legionella pneumophila antigen detectionOrdered By: Luke Salguero on 06-23-2023 L. pneumophila Ag Ql (U) [facility] Urine phencyclidine (PCP) de tectionOrdered By: Luke Salguero on 06-23-2023 Phencyclidine Ql (U) Negative < 25 ng/mL [facility] Whole blood hemoglobin A1c/t otal hemoglobin ratio (mass fraction)Ordered By: Kulwinder De La O on 06-23-2023 HbA1c (Bld) [Mass fraction] 7.1 % 3.8-5.6 [facility] Comment on above: Normal < 5.7 % Predi abetic 5.7 - 6.4 % Diabetic >or= 6.5 % Please note range changes. Absolute lymphocyte countOrd ered By: Garfield Chacon on 06-22-2023 Lymphocytes Auto (Unsp spec) [#/Vol] 0.40 10*3/uL 0.83-4.51 [facility] [facility] partial thrombopla stin time (aPTT) in platelet poor plasma by coagulation aOrdered By: Garfield Chacon on 06-22-2023 aPTT Coag (PPP) [Time] 30.0 s 24.1-36.2 [facility] Amorphous sediment detection in urine sediment by light microscopyOrdered By: Garfield Chacon on 06-22-2023 Amorphous sediment LM Ql (Urine sed) 1+ [facility] Assessment of wrist artery p atency prior to arterial punctureOrdered By: Garfield Chacon on 06-22-2023 Arterial patency Wrist artery --pre arterial puncture Positive [facility] Automated lymphocyte count a s percentage of total leukocytesOrdered By: Garfield Chacno on 06-22-2023 Lymphocytes/100 WBC Auto (Unsp spec) 1.4 % 19-41 [facility] Base excessOrdered By: Garfield dye on 06-22-2023 Base excess Calc (BldV) [Moles/Vol] -5 mmol/L -2-2 [facility] Basophil percentageOrdered B y: Garfield Chacon on 06-22-2023 Basophil percentage 22 mmol/L [facility] Basophils/100 WBC (Bld) 90 % 95-99 [facility] Lactate [Moles/Vol] 4.6 mmol/L 0.4-2.0 [facility] Comment on above: Critical Result(s) C alled at: 21:33:11 06/22/2023 by: Diandra Ocasio to parr. Results read back by same. Basophil percentage 10-25 SEEN /hpf 0-5 [facility] Basophils/100 WBC (Bld) 0.3 % 0-1 [facility] Bilirubin [Mass/Vol] 0.60 mg/dL 0.20-1.00 [facility] Comment on above: For patients on eltr ombopag therapy, use of [facility] [place] TBIL is not recommended. Chloride [Moles/Vol] 106 mmol/L 98-107 [facility] Eosinophils/100 WBC (Bld) 0.0 % 0-5 [facility] Glucose [Mass/Vol] 224 mg/dL 74-106 [facility] Comment on above: Glucose result great er than or equal to 200 mg/dLsuggests DIABETES MELLITUS per A.D.A. criteria. Hemoglobin (Bld) [Mass/Vol] 13.8 g/dL 13.0-16.5 [facility] Monocytes/100 WBC (Bld) 5.3 % 0-10 [facility] Neutrophils (Bld) [#/Vol] 25.4 10*3/uL 2.0-7.7 [facility] Neutrophils/100 WBC (Bld) 91.7 % 47-70 [facility] Potassium [Moles/Vol] 4.1 mmol/L 3.5-5.1 [facility] Protein [Mass/Vol] 7.9 g/dL 6.4-8.2 [facility] Sodium [Moles/Vol] 138 mmol/L 136-145 [facility] WBC (Bld) [#/Vol] 27.7 10*3/uL 4.4-11.0 [facility] Bilirubin Test strip Ql (U)O rdered By: Garfield Chacon on 06-22-2023 Bilirubin Ql (U) Negative Negative [facility] Blood manual differential co mment interpretation (narrative result)Ordered By: Garfield Chacon on 06-22-2023 Manual differential comment Phil (Bld) [Interp] SEE COMMENTS [facility] Comment on above: NEUTROPHILIA NOTEDLY MPHOPENIA NOTED Blood platelet adequacy dete ction by light microscopyOrdered By: Garfield Chacon on 06-22-2023 Platelets LM Ql (Bld) ADEQUATE ADEQ [facility] Blood platelet morphology de termination (nominal result)Ordered By: Garfield Chacon on 06-22-2023 Platelet morphology finding Nom (Bld) LARGE [facility] Determination of erythrocyte mean corpuscular volume (MCV)Ordered By: Garfield Chacon on 06-22-2023 MCV (RBC) [Entitic vol] 89.4 fL 80-94 [facility] Erythrocyte distribution wid th ratioOrdered By: Garfield Chacon on 06-22-2023 Erythrocyte distribution width (RBC) [Ratio] 15.4 % 11.6-14.6 [facility] Erythrocyte distribution wid th standard deviationOrdered By: Garfieldazeem Chacon on 06-22-2023 Erythrocyte distribution width (RBC) [Entitic vol] 49.7 fL 35.1-43.9 [facility] Hematocrit Auto (Bld) [Volum e fraction]Ordered By: Garifeld Chacon on 06-22-2023 Hematocrit (Bld) [Volume fraction] 43.2 % 40-54 [facility] Immature granulocytes/100 WB C Auto (Bld)Ordered By: Garfieldazeem Chacon on 06-22-2023 Immature granulocytes/100 WBC (Bld) 1.300 % 0.0-0.9 [facility] Comment on above: IG% - Immature Granu locytes (promyelocytes, myelocytes and metamyelocytes) > 1% indicates that a LEFT SHIFT is Present. Ketones Test strip Ql (U)Ord ered By: Garfieldazeem Chacon on 06-22-2023 Ketones Ql (U) Negative Negative [facility] Laboratory - Chemistry and C hemistry - challengeOrdered By: Garfieldazeem Chacon on 06-22-2023 Albumin/Globulin [Mass ratio] 0.7 {ratio} 0.9-2.4 [facility] ALP [Catalytic activity/Vol] 90 U/L 45-117 [facility] ALT [Catalytic activity/Vol] 11 U/L 16-61 [facility] CO2 [Moles/Vol] 20.0 mmol/L 21.0-32.0 [facility] Globulin (S) [Mass/Vol] 4.7 g/dL 2.2-4.2 [facility] Urea nitrogen/Creatinine [Mass ratio] 13.5 mg/mg 10-20 [facility] Laboratory - CoagulationOrde red By: Garfieldazeem Chacon on 06-22-2023 INR Coag (Bld) [Relative time] 1.2 {INR} [facility] PT Coag (PPP) [Time] 15.3 s 11.7-14.9 [facility] Laboratory - Hematology and Cell countsOrdered By: Garfield Chacon on 06-22-2023 Anisocytosis Ql (Bld) RARE [facility] MCH (RBC) [Entitic mass] 28.6 pg 27.0-32.0 [facility] MCHC (RBC) [Mass/Vol] 31.9 g/dL 32-36 [facility] Nucleated RBC/100 WBC (Bld) [Ratio] 0 % 0-5 [facility] Platelet mean volume (Bld) [Entitic vol] 11.7 fL 6.2-12.0 [facility] Platelets (Bld) [#/Vol] 165 10*3/uL 150-450 [facility] - Microbiology an d Antimicrobial susceptibilityOrdered By: Garfield Chacon on 06-22-2023 SARS-CoV-2 (COVID-19) RNA RYANNE+probe Ql (Unsp spec) [facility] Macrocytes detectionOrdered By: Garfield Chacon on 06-22-2023 Macrocytes Ql (Bld) RARE [facility] Magnesium ammonium phosphate crystal detectionOrdered By: Garfield Chacon on 06-22-2023 Triple phosphate crystals LM Ql (Urine sed) 1+ /hpf [facility] Measurement, pHOrdered By: Marco Chacon on 06-22-2023 pH (Unsp spec) 7.33 [pH] 7.35-7.45 [facility] Mucus LM Ql (Urine sed)Order ed By: Garfield Chacon on 06-22-2023 Mucus Ql (Urine sed) 0 SEEN /hpf [facility] Nitrite Test strip Ql (U)Ord ered By: Garfield Chacon on 06-22-2023 Nitrite Ql (U) Negative Negative [facility] No Panel InformationOrdered By: Garfield Chacon on 06-22-2023 Arterial Blood Partial Pressure CO2 39.6 mmHg 35-45 [facility] Arterial Blood Partial Pressure O2 63 mmHG 75-100 [facility] Blood Gas Bicarbonate Actual 20.9 mmol/L [facility] Blood Gas Oxygen Percent 2.0 [facility] Blood Gas Sample Site L Brach [facility] Blood Gas Specimen Type ART [facility] Blood Gas Vent Mode Not entered [facility] Oxygen Delivery Device Cannula [facility] Estimated Creatinine Clearance Calc 28.91 ml/min [facility] Estimated GFR (MDRD) Amer 35 mL/min >60 [facility] Comment on above: GFR Calc Estimated GFR (MDRD) Non-Af Amer 29 mL/min >60 [facility] Comment on above: Non- GFR Calc Urine RBC 10-25 SEEN /hpf 0-5 [facility] Ovalocyte detectionOrdered B y: Garfield Chacon on 06-22-2023 Ovalocytes LM Ql (Bld) RARE [facility] Protein Test strip Ql (U)Ord ered By: Garfield Chacon on 06-22-2023 Protein Ql (U) 30 mg/dl Negative [facility] RBC Auto (Bld) [#/Vol]Ordere d By: Garfield Chacon on 06-22-2023 RBC (Bld) [#/Vol] 4.83 10*6/uL 4.6-6.2 [facility] RBC morphologyOrdered By: Krystle Chacon on 06-22-2023 RBC morphology finding Nom (Bld) N CHROM NORMAL NORM C&C [facility] Serum or plasma calcium camille urement (mass/volume)Ordered By: Garfield Chacon on 06-22-2023 Calcium [Mass/Vol] 8.9 mg/dL 8.5-10.1 [facility] Serum or plasma creatinine m easurement (mass/volume)Ordered By: Garfield Chacon on 06-22-2023 Creatinine [Mass/Vol] 2.37 mg/dL 0.70-1.30 [facility] Comment on above: The validity of the calculated GFR & GFRAA in patients over 70 years has not been determined. Clinical correlation is essential. Serum or plasma urea nitroge n measurement (mass/volume)Ordered By: Garfield Chacon on 06-22-2023 Urea nitrogen [Mass/Vol] 32 mg/dL 7-18 [facility] Squamous epithelial cells de tection in urine sediment by light microscopyOrdered By: Garfield Chacon on 06-22-2023 Epithelial cells.squamous LM Ql (Urine sed) 0 SEEN /hpf 0-5 [facility] Teardrop cell detectionOrder ed By: Garfield Chacon on 06-22-2023 Dacrocytes LM Ql (Bld) RARE [facility] Thin prep Papanicolaou smear with manual screeningOrdered By: Garfield Chacon on 06-22-2023 Thin prep Papanicolaou smear with manual screening 3.2 g/dL 3.2-5.0 [facility] Thin prep Papanicolaou smear with manual screening 16 U/L 15-37 [facility] Thin prep Papanicolaou smear with manual screening 12 5-15 [facility] Urine blood detectionOrdered By: Garfield Chacon on 06-22-2023 RBC Ql (U) 250 /ul Negative [facility] Urine clarityOrdered By: Garfield Chacon on 06-22-2023 Clarity (U) Cloudy Clear [facility] Urine color determinationOrd ered By: Garfield Chacon on 06-22-2023 Color (U) Yellow Yellow [facility] Urine glucose detectionOrder ed By: Garfield Chacon on 06-22-2023 Glucose Ql (U) Normal mg/dl Normal [facility] Urine leukocyte esterase det ection by dipstickOrdered By: Garfield Chacon on 06-22-2023 Leukocyte esterase Test strip Ql (U) 500 /ul Negative [facility] Urine pHOrdered By: Garfield duff on 06-22-2023 pH (U) 9.0 [pH] 5.0 - 8.0 [facility] Urine sediment bacteria coun t by microscopy (number/high power field)Ordered By: Garfield Chacon on 06-22-2023 Bacteria LM.HPF (Urine sed) [#/Area] 4 /[HPF] None Seen [facility] Urine specific gravity measu rementOrdered By: Garfield Chacon on 06-22-2023 Specific gravity (U) [Rel density] 1.015 1.002-1.03 0 [facility] Urine urobilinogen measureme ntOrdered By: Garfield Chacon on 06-22-2023 Urobilinogen Ql (U) Normal mg/dl Normal [facility] US Lower extremity vein - le f[place] 06-08-2023 [facility] Culture Woundon 06-30-2020 Culture Wound Bacteria Wnd Cult: Light growth of: MIXED SKIN AND ENTERIC BACTERIA Normal [facility] Comment on above: Order Comment: Comme nts: penial shaft Performed By: #### W DC #### [facility] [address], [place] [id number] , Yudy Reed M.D. FCAP, FASCP Prostate Spec Ag Screenon Prostate Spec Ag Screen 0.236 ng/ml Normal 0.1-4.000 [facility] Comment on above: Performed By: #### P SA (SCREEN) #### [facility], CLIA #[id number] [address] [place] [address] Yudy Reed M.D., Director Culture Urineon 06-06-2020 Culture Urine Bacteria Ur Cult: QUANTITY: Greater than 100,000 colonies/mL. KLEBSIELLA PNEUMONIAE: Isolated OrganismID: 1.1 Antibiotic INTERP REGAN Status Ampicillin R F Augmentin S F Unasyn S F Cefazolin S F Levofloxacin S F Ciprofloxacin S F Gentamicin S F Trimeth/Sulfa R F Nitrofurantoin S F Tetracycline R F Normal [facility] Comment on above: Performed By: #### U C #### [facility] [address] [place] [address] , Yudy Reed M.D. FCAP, FASCP Urine culture routineon Bacteria identified Cx Nom (U) Klebsiella Pneumoniae [facility] Work Phone: Urine culture routineon 03-30 Bacteria identified Cx Nom (U) Aerococcus Urinae [facility] Work Phone: Urine culture routineon Bacteria identified Cx Nom (U) Enterococcus Faecalis [facility] Work Phone: Reference lab test methodon 01-30-2020 Reference lab test method Unsp time Phil (Reference lab test) Flexitest 1 [facility] Work Phone: Comment on above: FLEXITEST 1LUPUS ANT ICOAGULANTA Lupus Anticoagulant is not detected.Common causes for a prolonged screen and negativeconfirmatory test include factor deficienciesor anticoagulant therapy.Reference Range: Not DetectedFor additional information, please refer [email or web address]/faq/[email or web address](This link is being provided for informational/educational purposes only.)This interpretation is based on the following testresults.PTT-LA SCREEN 42 H sec <=40HEXAGONAL PHASE CONFIRM has been addedTHROMBIN TIME Not indicatedDRVVT SCREEN 60 H sec <=45DRVVTAdditional testing for dRVVT has been added.DRVVT MIX INTERPRETATION: Not IndicatedPROTEIN C, ACTIVITY 25 L % 70-180Decreased levels of Protein C activity may be foundin hereditary deficiency, treatment with oral anti-coagulants, liver disease, D.I.C. and post surgery.Units: % of normal TESTS RESULTS--------UNITS--RE F. RANGE---Prothrombin (Factor II) see belowRESULT: [id number] variant not detectedInterpretation see belowINTERPRETATION: This individual is negative(normal) for the C00023J variant in theProthrombin/Factor II gene. Increased risk ofthrombophilia can be caused by a variety ofgenetic and non-genetic factors not screened forby this assay.Laboratory testing supervised and resultsmonitored by Katherin Ward, Ph.D., [facility], [facility].The [id number] mutation [[id number]: g.84172N>A(c.*97G>A)] in the Prothrombin/Factor II gene isthe second most common inherited risk factor forthrombosis occurring in approximately 2% ofCaucasians. Presence of the mutation is associatedwith an elevation of prothrombin levels to about30% above normal in heterozygotes and to 70% abovenormal in homozygotes.Prothrombin (F32588A) mutations are detected byamplification of their selected gene regions bypolymerase chain reaction (PCR) and fluorescentprobe hybridization to the targeted region,followed by melting curve analysis with a realtime PCR system. Although rare, false positive orfalse negative results may occur. All resultsshould be interpreted in context of clinicalfindings, relevant history, and other laboratorydata.Health care providers, please contact your local[employer]' genetic counselor or [phone] ([phone]) for assistance withinterpretation of these results.This test was developed and its analyticalperformance characteristics have been determinedby [facility]. It has not been cleared or approved by. This assay has been validated pursuant to theIA regulations and is used for clinicalpurposes.Test performed by better. [place] [address] [place] [address] Ntiqdfo Director: Caryl Serrano MD,PHD,MBATest Reported by [facility],[employer] [facility],[address] [place], [place] [address]Xloajfplashaun Fuller M.D., Ph.D., Director of [phone], CLIA [id number] S, ACTIVITY 37 L % 70-150Decreased levels of Protein S activity may be foundin patients with hereditary deficiency, warfarintherapy, vitamin K deficiency, liver disease, DIC,or recent thrombosis as well as after surgery. Inaddition, it may be physiologic in .ANTITHROMBIN III ACTIVITY 108 % normal 80-135CARDIOLIPIN AB (IGA, IGG, IGM)CARDIOLIPIN AB (IGA) <11 APL <=11Cardiolipin Ab (IgA) Reference Range:Value Interpretation < or = 11 Bqcqwrws27 - 20 Eqqgahrzxskfb27 - 80 Low to Medium Positive> 80 High PositiveCARDIOLIPIN AB (IGG) <14 GPL <=14Cardiolipin Ab (IgG) Reference Range:Value Interpretation < or = 14 Xumrlfxk89 - 20 Vhntpsnxpxspf83 - 80 Low to Medium Positive> 80 High PositiveCARDIOLIPIN AB (IGM) <12 MPL <=12Cardiolipin Ab (IgM) Reference Range:Value Interpretation < or = 12 Jxqhepeo30 - 20 Srhjuxjlsdulb36 - 80 Low to Medium Positive> 80 High PositiveThe antiphospholipid antibody syndrome (APS) is aclinical-pathologic correlation that includes aclinical event (e.g. thrombosis, loss,thrombocytopenia) and persistent positive antiphospho-lipid antibodies (IgM or IgG TOMMY >40 MPL/GPL, IgM orIgG anti-b2GPI antibodies or a lupus anticoagulant).International consensus guidelines for APS suggestwaiting at least 12 weeks before retesting to confirmantibody persistence. The Systemic Lupus InternationalCollaborating Clinics immunological classificationcriteria for systemic lupus erythematosus (SLE) includetesting for isotype IgA, which has yet to be incorpo-rated into APS criteria. Low level antiphospholipidantibodies may sometimes be detected in the setting ofinfection, drug therapy or aging. TESTS RESULTS--------UNITS--RE F. RANGE---Factor V (Leiden) Mutation see belowRESULT: FACTOR V LEIDEN (R506Q) VARIANT NOTDETECTEDInterpretation see belowINTERPRETATION: This individual is negative(normal) for the Factor V Leiden (R506Q) variantin the Factor V gene. Increased risk ofthrombophilia can be caused by a variety ofgenetic and non-genetic factors not screened forby this assay.Laboratory testing supervised and resultsmonitored by Keara William MD, PhD, [facility], [facility].MUTATION ANALYSIS:The Factor V Leiden (R506Q) mutation [NM 121740.2:c.1601G>A (p.R534Q)] in the Factor V gene is oneof the most common causes of inheritedthrombophilia. This mutation causes resistance todegradation of activated Factor V protein byactivated protein C (APC). The Factor V Leiden(R506Q) mutation is detected by amplification ofthe selected region of Factor V gene by polymerasechain reaction (PCR) and fluorescent probehybridization to the targeted region, followed bymelting curve analysis with a real time PCRsystem. Although rare, false positive or falsenegative results may occur. All results should beinterpreted in context of clinical findings,relevant history, and other laboratory data.This test was developed and its analyticalperformance characteristics have been determinedby [employer] [facility]. It has not been cleared or approved by. This assay has been validated pursuant to theCLIA regulations and is used for clinicalpurposes.Health care providers, please contact your local[employer]' genetic counselor or [phone] ([phone]) for assistance withinterpretation of these results.Test performed by [employer] [facility] [address] [place] [address] Xbkpknq Director: Caryl Serrano MD,PHD,MBAHOMOCYSTEINE 18.7 H umol/L <11.4Homocysteine is increased by functional deficiency offolate or vitamin B12. Testing for methylmalonic aciddifferentiates between these deficiencies. Other causesof increased homocysteine include renal failure, folateantagonists such as methotrexate and phenytoin, andexposure to nitrous oxide.Beni Murguia, et al. [facility] Med. 1999;131(5):331-9. Vital Signs Date Time Vital Sign Value Performing Clinician Faci lity 09-27-2024 17:03-0400 Body temperature 97.8 [degF] Jenae Santamaria MD Work Phone: [facility] 09-27-2024 17:03-0400 Diastolic blood pressure 69 mm[Hg] Jenae Santamaria MD Work Phone: [facility] 09-27-2024 17:03-0400 Heart rate 90 /min Jenae Santamaria MD Work Phone: [facility] 09-27-2024 17:03-0400 Respiratory rate 17 /min Jenae Santamaria MD Work Phone: [facility] 09-27-2024 17:03-0400 SaO2% (BldA) [Mass fraction] 99 % Jenae Santamaria MD Work Phone: [facility] 09-27-2024 17:03-0400 Systolic blood pressure 122 mm[Hg] Jenae Santamaria MD Work Phone: [facility] 09-27-2024 11:46-0400 Body height 170.18 cm Jenae Santamaria MD Work Phone: [facility] 09-27-2024 11:46-0400 Body mass index (BMI) [Ratio] 30.4 kg/m2 Jenae Santamaria MD Work Phone: [facility] 09-27-2024 11:46-0400 Body weight 88.3 kg Jenae Santamaria MD Work Phone: [facility] 09-15-2024 11:07-0400 Body height 170.2 cm Brian Cummings MD Work Phone: [facility] 09-15-2024 11:07-0400 Body temperature 98.4 [degF] Brian Cummings MD Work Phone: [facility] 09-15-2024 11:07-0400 Diastolic blood pressure 70 mm[Hg] Brian Cummings MD Work Phone: [facility] 09-15-2024 11:07-0400 Heart rate 61 /min Brian Cummings MD Work Phone: [facility] 09-15-2024 11:07-0400 SaO2% (BldA) [Mass fraction] 95 % Brian Cummings MD Work Phone: [facility] 09-15-2024 11:07-0400 Systolic blood pressure 125 mm[Hg] Brian Cummings MD Work Phone: [facility] 08-22-2024 10:54-0400 Body mass index (BMI) [Ratio] 27.88 kg/m2 Jenae Santamaria MD Work Phone: [facility] 08-22-2024 10:54-0400 Body weight 80.74 kg Jneae Santamaria MD Work Phone: [facility] 08-22-2024 10:54-0400 Diastolic blood pressure 82 mm[Hg] Jenae Santamaria MD Work Phone: [facility] 08-22-2024 10:54-0400 Heart rate 100 /min Jenae Santamaria MD Work Phone: [facility] 08-22-2024 10:54-0400 SaO2% (BldA) [Mass fraction] 99 % Jenae Santamaria MD Work Phone: [facility] 08-22-2024 10:54-0400 Systolic blood pressure 136 mm[Hg] Jenae Santamaria MD Work Phone: [facility] 08-14-2024 15:07-0400 Body height 170.18 cm Jenae Santamaria MD Work Phone: [facility] 08-14-2024 15:07-0400 Body temperature 98 [degF] Jenae Santamaria MD Work Phone: [facility] 08-14-2024 15:07-0400 Diastolic blood pressure 81 mm[Hg] Jenae Santamaria MD Work Phone: [facility] 08-14-2024 15:07-0400 Heart rate 97 /min Jenae Santamaria MD Work Phone: [facility] 08-14-2024 15:07-0400 Respiratory rate 18 /min Jenae Santamaria MD Work Phone: [facility] 08-14-2024 15:07-0400 SaO2% (BldA) [Mass fraction] 100 % Jenae Santamaria MD Work Phone: [facility] 08-14-2024 15:07-0400 Systolic blood pressure 120 mm[Hg] Jenae Santamaria MD Work Phone: [facility] 07-20-2024 21:08-0400 Body temperature 98.3 [degF] Jenae Santamaria MD Work Phone: [facility] 07-20-2024 21:08-0400 Diastolic blood pressure 75 mm[Hg] Jenae Santamaria MD Work Phone: [facility] 07-20-2024 21:08-0400 Heart rate 95 /min Jenae Santamaria MD Work Phone: [facility] 07-20-2024 21:08-0400 Respiratory rate 15 /min Jenae Santamaria MD Work Phone: [facility] 07-20-2024 21:08-0400 SaO2% (BldA) [Mass fraction] 99 % Jenae Santamaria MD Work Phone: [facility] 07-20-2024 21:08-0400 Systolic blood pressure 134 mm[Hg] Jenae Santamaria MD Work Phone: [facility] 07-20-2024 05:22-0400 Body mass index (BMI) [Ratio] 29 kg/m2 Jenae Santamaria MD Work Phone: [facility] 07-20-2024 05:22-0400 Body weight 83.9 kg Jenae Santamaria MD Work Phone: [facility] 07-19-2024 16:42-0400 Inhaled oxygen flow rate 3 L/min Jenae Santamaria MD Work Phone: [facility] 07-13-2024 21:00-0400 Diastolic blood pressure 45 mm[Hg] Jenae Santamaria MD Work Phone: [facility] 07-13-2024 21:00-0400 Heart rate 103 /min Jenae Santamaria MD Work Phone: [facility] 07-13-2024 21:00-0400 Respiratory rate 25 /min Jenae Santamaria MD Work Phone: [facility] 07-13-2024 21:00-0400 SaO2% (BldA) [Mass fraction] 96 % Jenae Santamaria MD Work Phone: [facility] 07-13-2024 21:00-0400 Systolic blood pressure 101 mm[Hg] Jenae Santamaria MD Work Phone: [facility] 07-13-2024 20:30-0400 Body temperature 97.9 [degF] Jenae Santamaria MD Work Phone: [facility] 07-13-2024 16:59-0400 Body height 175.26 cm Jenae Santamaria MD Work Phone: [facility] 07-13-2024 16:59-0400 Body mass index (BMI) [Ratio] 31.1 kg/m2 Jenae Santamaria MD Work Phone: [facility] 07-13-2024 16:59-0400 Body weight 95.7 kg Jenae Santamaria MD Work Phone: [facility] 07-07-2024 19:20-0400 Body temperature 96.8 [degF] Jenae Santamaria MD Work Phone: [facility] 07-07-2024 19:20-0400 Diastolic blood pressure 80 mm[Hg] Jenae Santamaria MD Work Phone: [facility] 07-07-2024 19:20-0400 Heart rate 91 /min Jenae Santamaria MD Work Phone: [facility] 07-07-2024 19:20-0400 Respiratory rate 16 /min Jenae Santamaria MD Work Phone: [facility] 07-07-2024 19:20-0400 SaO2% (BldA) [Mass fraction] 96 % Jenae Santamaria MD Work Phone: [facility] 07-07-2024 19:20-0400 Systolic blood pressure 141 mm[Hg] Jenae Santamaria MD Work Phone: [facility] 07-07-2024 14:00-0400 Body temperature 98 [degF] Jenae Santamaria MD Work Phone: [facility] 07-07-2024 14:00-0400 Diastolic blood pressure 72 mm[Hg] Jenae Santamaria MD Work Phone: [facility] 07-07-2024 14:00-0400 Heart rate 86 /min Jenae Santamaria MD Work Phone: [facility] 07-07-2024 14:00-0400 Inhaled oxygen flow rate 2 L/min Jenae Santamaria MD Work Phone: [facility] 07-07-2024 14:00-0400 Respiratory rate 18 /min Jenae Santamaria MD Work Phone: [facility] 07-07-2024 14:00-0400 Systolic blood pressure 130 mm[Hg] Jenae Santamaria MD Work Phone: [facility] 07-07-2024 10:00-0400 Body mass index (BMI) [Ratio] 27.9 kg/m2 Jenae Santamaria MD Work Phone: [facility] 07-06-2024 10:01-0400 Body height 175.26 cm Jenae Santamaria MD Work Phone: [facility] 07-06-2024 10:01-0400 Body weight 85.8 kg Jenae Santamaria MD Work Phone: [facility] 07-01-2024 13:00-0400 Body temperature 98.4 [degF] Jenae Santamaria MD Work Phone: [facility] 07-01-2024 13:00-0400 Diastolic blood pressure 72 mm[Hg] Jenae Santamaria MD Work Phone: [facility] 07-01-2024 13:00-0400 Heart rate 110 /min Jenae Santamaria MD Work Phone: [facility] 07-01-2024 13:00-0400 Respiratory rate 17 /min Jenae Santamaria MD Work Phone: [facility] 07-01-2024 13:00-0400 SaO2% (BldA) [Mass fraction] 96 % Jenae Santamaria MD Work Phone: [facility] 07-01-2024 13:00-0400 Systolic blood pressure 158 mm[Hg] Jenae Santamaria MD Work Phone: [facility] 07-01-2024 09:22-0400 Body height 175.26 cm Jenae Santamaria MD Work Phone: [facility] 07-01-2024 09:22-0400 Body mass index (BMI) [Ratio] 28.4 kg/m2 Jenae Santamaria MD Work Phone: [facility] 07-01-2024 09:22-0400 Body weight 87.3 kg Jenae Santamaria MD Work Phone: [facility] 04-07-2024 09:14-0500 Body height 170.2 cm Jenae Santamaria MD Work Phone: [facility] 04-07-2024 09:14-0500 Body mass index (BMI) [Ratio] 28.19 kg/m2 Jenae Santamaria MD Work Phone: [facility] 04-07-2024 09:14-0500 Body weight 81.65 kg Jenae Santamaria MD Work Phone: [facility] 04-07-2024 09:14-0500 Diastolic blood pressure 72 mm[Hg] Jenae Santamaria MD Work Phone: [facility] 04-07-2024 09:14-0500 Heart rate 97 /min Jenae Santamaria MD Work Phone: [facility] 04-07-2024 09:14-0500 Respiratory rate 12 /min Jenae Santamaria MD Work Phone: [facility] 04-07-2024 09:14-0500 SaO2% (BldA) [Mass fraction] 97 % Jenae Santamaria MD Work Phone: [facility] 04-07-2024 09:14-0500 Systolic blood pressure 126 mm[Hg] Jenae Santamaria MD Work Phone: [facility] 12-10-2023 09:58-0400 Body mass index (BMI) [Ratio] 27.75 kg/m2 Jenae Santamaria MD Work Phone: [facility] 12-10-2023 09:58-0400 Body weight 80.38 kg Jenae Santamaria MD Work Phone: [facility] 12-10-2023 09:58-0400 Diastolic blood pressure 81 mm[Hg] Jenae Santamaria MD Work Phone: [facility] 12-10-2023 09:58-0400 Heart rate 84 /min Jenae Santamaria MD Work Phone: [facility] 12-10-2023 09:58-0400 SaO2% (BldA) [Mass fraction] 97 % Jenae Santamaria MD Work Phone: [facility] 12-10-2023 09:58-0400 Systolic blood pressure 131 mm[Hg] Jenae Santamaria MD Work Phone: [facility] 09-10-2023 09:48-0400 Body mass index (BMI) [Ratio] 27.69 kg/m2 Jenae Santamaria MD Work Phone: [facility] 09-10-2023 09:48-0400 Body weight 80.2 kg Jenae Santamaria MD Work Phone: [facility] 09-10-2023 09:48-0400 Diastolic blood pressure 79 mm[Hg] Jenae Santamaria MD Work Phone: [facility] 09-10-2023 09:48-0400 Heart rate 82 /min Jenae Santamaria MD Work Phone: [facility] 09-10-2023 09:48-0400 SaO2% (BldA) [Mass fraction] 95 % Jenae Santamaria MD Work Phone: [facility] 09-10-2023 09:48-0400 Systolic blood pressure 137 mm[Hg] Jenae Santamaria MD Work Phone: [facility] 08-03-2023 11:25-0400 Body height 170.2 cm Jenae Santamaria MD Work Phone: [facility] 08-03-2023 11:25-0400 Body mass index (BMI) [Ratio] 28.51 kg/m2 Jenae Santamaria MD Work Phone: [facility] 08-03-2023 11:25-0400 Body weight 82.56 kg Jenae Santamaria MD Work Phone: [facility] 08-03-2023 11:25-0400 Diastolic blood pressure 83 mm[Hg] Jenae Santamaria MD Work Phone: [facility] 08-03-2023 11:25-0400 Heart rate 86 /min Jenae Santamaria MD Work Phone: [facility] 08-03-2023 11:25-0400 Respiratory rate 16 /min Jenae Santamaria MD Work Phone: [facility] 08-03-2023 11:25-0400 SaO2% (BldA) [Mass fraction] 96 % Jenae Santamaria MD Work Phone: [facility] 08-03-2023 11:25-0400 Systolic blood pressure 127 mm[Hg] Jenae Santamaria MD Work Phone: [facility] 06-26-2023 16:51-0400 Inhaled oxygen flow rate 3 L/min Dr. Garfield Chacon Work Phone: 6(965)906-782869 [place] [address] 06-26-2023 16:51-0400 SaO2% (BldA) [Mass fraction] 91 % Dr. Garfield Chacon Work Phone: 1(558)918-591234 [place] [address] 06-26-2023 14:10-0400 Body temperature 98.1 [degF] Dr. Garfield Chacon Work Phone: 8(437)225-385869 [place] [address] 06-26-2023 14:10-0400 Diastolic blood pressure 86 mm[Hg] Dr. Garfield Chacon Work Phone: 8(902)115-581269 [place] [address] 06-26-2023 14:10-0400 Heart rate 80 /min Dr. Garfield Chacon Work Phone: 9(485)965-281469 [place] [address] 06-26-2023 14:10-0400 Respiratory rate 16 /min Dr. Garfield Chacon Work Phone: 9(110)467-947669 [place] [address] 06-26-2023 14:10-0400 Systolic blood pressure 145 mm[Hg] Dr. Garfield Chacon Work Phone: 2(900)358-799769 [place] [address] 06-26-2023 05:50-0400 Body mass index (BMI) [Ratio] 29.4 kg/m2 Dr. Garfield Chacon Work Phone: 8(734)650-835869 [place] [address] 06-26-2023 05:50-0400 Body weight [address] Garfield Chacon Work Phone: 5(816)745-230469 [place] [address] 06-23-2023 10:49-0400 Body height 170.[address] Garfield Chacon Work Phone: [facility] 06-23-2023 01:10-0400 Body temperature 98 [degF] [facility] 06-23-2023 01:10-0400 Diastolic blood pressure 75 mm[Hg] [facility] 06-23-2023 01:10-0400 Heart rate 106 /min [facility] 06-23-2023 01:10-0400 Respiratory rate 22 /min [facility] 06-23-2023 01:10-0400 SaO2% (BldA) [Mass fraction] 95 % [facility] 06-23-2023 01:10-0400 Systolic blood pressure 130 mm[Hg] [facility] 06-23-2023 00:56-0400 Body height 170.18 cm [facility] 06-23-2023 00:56-0400 Body mass index (BMI) [Ratio] 27.6 kg/m2 [facility] 06-23-2023 00:56-0400 Body weight 80.2 kg [facility] 06-23-2023 00:00-0400 Inhaled oxygen flow rate 2 L/min [facility] 05-27-2023 13:39-0500 Body height 170.2 cm Brian Cummings MD Work Phone: [facility] 05-27-2023 13:39-0500 Body temperature 97.2 [degF] Brian Cummings MD Work Phone: [facility] 05-27-2023 13:39-0500 Body weight 78.93 kg Brian Cummings MD Work Phone: [facility] 05-27-2023 13:39-0500 Diastolic blood pressure 73 mm[Hg] Brian Cummings MD Work Phone: [facility] 05-27-2023 13:39-0500 Heart rate 59 /min Brian Cummings MD Work Phone: [facility] 05-27-2023 13:39-0500 SaO2% (BldA) [Mass fraction] 86 % Brian Cummings MD Work Phone: [facility] 05-27-2023 13:39-0500 Systolic blood pressure 110 mm[Hg] Brian Cummings MD Work Phone: [facility] 05-27-2023 13:07-0500 Body height 170.2 cm Leonora Jeannine PA-C Work Phone: [facility] 05-27-2023 13:07-0500 Body weight 74.84 kg Leonora Jeannine PA-C Work Phone: [facility] 05-27-2023 13:07-0500 Diastolic blood pressure 82 mm[Hg] Leonora Jeannine PA-C Work Phone: [facility] 05-27-2023 13:07-0500 Heart rate 98 /min Leonora Jeannine PA-C Work Phone: [facility] 05-27-2023 13:07-0500 Systolic blood pressure 123 mm[Hg] Leonora Jeannine PA-C Work Phone: [facility] 04-07-2023 15:06-0500 Body height 170.2 cm Jenae Santamaria MD Work Phone: [facility] 04-07-2023 15:06-0500 Body weight 69.85 kg Jenae Santamaria MD Work Phone: [facility] 04-07-2023 15:06-0500 Diastolic blood pressure 73 mm[Hg] Jenae Santamaria MD Work Phone: [facility] 04-07-2023 15:06-0500 Heart rate 100 /min Jenae Santamaria MD Work Phone: [facility] 04-07-2023 15:06-0500 Respiratory rate 16 /min Jenae Santamaria MD Work Phone: [facility] 04-07-2023 15:06-0500 SaO2% (BldA) [Mass fraction] 97 % Jenae Santamaria MD Work Phone: [facility] 04-07-2023 15:06-0500 Systolic blood pressure 115 mm[Hg] Jenae Santamaria MD Work Phone: [facility] 02-05-2023 08:47-0500 Body height 170.2 cm Cameron Hernandez MD Work Phone: [facility] 02-05-2023 08:47-0500 Body weight 67.59 kg Cameron Hernandez MD Work Phone: [facility] Encounters Encounter Date Encounter Type Care Provider Facility Start: 01-09-2025 End: 01-09-2025 ambulatory GUTIERREZ ACEVEDO Facility:[facility] Start: 01-02-2025 ambulatory Shari Hurd Facility:[facility] Start: 01-02-[address] Shari Hurd MD -[facility] Start: 12-26-2024 End: 12-26-[address] Shari Hurd MD [facility] Start: 12-26-2024 End: 12-26-[address] Shari Hurd MD [facility] Start: 12-26-2024 End: 12-26-2024 ambulatory Shari Hurd Facility:[facility] Start: 12-13-2024 End: 12-13-2024 ambulatory Vick Rollins RN Work Phone: [employer] Start: 12-13-2024 End: 12-13-2024 Home visit Vick Rollins RN Work Phone: [employer] Comment on above: Transition Of Care ( SNF update) Start: 12-12-2024 End: 12-12-2024 Patient encounter procedure Yudy Benoit Work Phone: Podiatry Comment on above: Onychomycosis (Prima ry Dx); Pain in toe of left foot; Pain in toe of right foot; Diabetic polyneuropathy associated with type 2 diabetes mellitus (HCC); PAD (peripheral artery disease) Start: 12-12-2024 End: 12-12-2024 ambulatory YUDY BENOIT Facility:[facility] Start: 12-12-[address] Shari Hurd MD [facility] Start: 11-21-2024 ambulatory [facility] Facility:[facility] Start: 11-21-[address] Shari Hurd MD -[facility] Start: 11-14-2024 ambulatory [facility] Facility:[facility] Start: 11-14-[address] Shari Hurd MD -[facility] Start: 11-13-2024 End: 11-13-2024 Telephone encounter Gutierrez Acevedo PA-C Work Phone: Urology Comment on above: Appointment Start: 11-11-2024 End: 11-13-2024 Refill Jenae Santamaria MD Work Phone: [facility] Comment on above: Refill Request Start: 11-08-2024 End: 11-08-2024 Refill Jenae Santamaria MD Work Phone: [facility] Comment on above: Refill Request Start: 11-07-2024 ambulatory [facility] Facility:[facility] Start: 11-07-[address] Shari Hurd MD -[facility] Start: 10-31-2024 End: 10-31-2024 Home visit Beatris Ferro RN [facility] [employer] Comment on above: Transition Of Care ( [facility] Discharge to [facility]) Start: 10-31-2024 End: 10-31-2024 ambulatory Beatris Ferro RN [facility] [employer] Start: 10-31-[address] Shari Hurd MD -[facility] Start: 10-27-2024 End: 10-30-2024 Evaluation and management of inpatient JENAE SANTAMARIA Facility:[facility] Start: 10-16-2024 ambulatory [facility] Start: 09-27-2024 End: 09-27-2024 Jenae Santamaria MD Work Phone: -Emergency Department Work Phone: Start: 09-27-2024 End: 09-27-2024 Emergency department patient visit Jenae Santamaria MD Work Phone: -Emergency Department Start: 09-22-2024 End: 09-22-2024 Telephone encounter Jenae Santamaria MD Work Phone: [facility] Start: 09-20-2024 End: 09-20-2024 Follow-up encounter Jenae Santamaria MD Work Phone: [facility] Start: 09-18-2024 End: 09-19-2024 Telephone encounter Gutierrez Acevedo PA-C Work Phone: Urology Comment on above: Appointment Start: 09-15-2024 End: 09-15-2024 Patient encounter procedure Brian Cummings MD Work Phone: [facility] Comment on above: History of rectal ca ncer (Primary Dx); Stage 3 chronic kidney disease, unspecified whether stage 3a or 3b CKD (HCC); Upper GI bleed Start: 09-15-2024 End: 09-15-2024 ambulatory BRIAN CUMMINGS Facility:[facility] Start: 09-07-2024 End: 09-07-2024 Patient encounter procedure Yudy Benoit Work Phone: Podiatry Comment on above: Onychomycosis (Prima ry Dx); Pain in toe of left foot; Pain in toe of right foot; Diabetic polyneuropathy associated with type 2 diabetes mellitus (HCC) Start: 09-07-2024 End: 09-07-2024 ambulatory YUDY BENOIT Facility:[facility] Start: 09-06-2024 End: 09-08-2024 Telephone encounter Jenae Santamaria MD Work Phone: [facility] Comment on above: Patient Update Start: 09-05-2024 End: 09-06-2024 Telephone encounter Jenae Santamaria MD Work Phone: [facility] Comment on above: Patient Update Start: 08-30-2024 End: 08-30-2024 Telephone encounter Jenae Santamaria MD Work Phone: [facility] Comment on above: Patient Question Start: 08-25-2024 End: 08-25-2024 Follow-up encounter Jenae Santamaria MD Work Phone: [facility] Start: 08-25-2024 End: 09-26-2024 [address] RD Work Phone: [facility] Comment on above: No Show Start: 08-22-2024 End: 08-22-2024 ambulatory JENAE SANTAMARIA [facility] Start: 08-22-2024 End: 08-22-2024 Office outpatient visit 40 minutes Jenae Santamaria MD Work Phone: [facility] Comment on above: Hospital discharge f ollow-up (Primary Dx); Recurrent UTI; Type 2 diabetes mellitus with other circulatory complication, with long-term current use of insulin ([facility]); H/O aorto-femoral bypass; Abdominal aortic aneurysm (AAA) without rupture, unspecified part; 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 rupture, unspecified part; Stage 3a chronic kidney disease (HCC); Vitamin D deficiency; Unspecified hypothyroidism; Encounter for immunization; History of rectal cancer; Urinary retention; Hydronephrosis of right kidney; Chronic obstructive pulmonary disease, unspecified COPD type ([facility]); Eosinophilic esophagitis; Wound infection; Screening for diabetic retinopathy Start: 08-22-2024 End: 08-22-2024 ambulatory JENAE SANTAMARIA [facility] Start: 08-14-2024 End: 08-14-[address] Efraín Thompson MD -[facility] Work Phone: Start: 08-14-2024 End: 08-14-2024 Dr. Efraín Thompson MD -[facility] Work Phone: Start: 08-14-2024 End: 08-14-2024 ambulatory Jenae Santamaria MD Work Phone: [facility] Work Phone: Start: 08-09-2024 End: 08-09-2024 Refill Jenae Santamaria MD Work Phone: [facility] Comment on above: Refill Request Start: 08-09-2024 End: 08-09-2024 Telephone encounter Jenae Santamaria MD Work Phone: [facility] Comment on above: Missed Appointment ( 08/08/2024 at 10:40 am, hospital follow- up, [facility] NO-SHOW) Start: 08-07-2024 End: 08-07-2024 ambulatory Beatris Ferro RN [facility] [employer] Start: 08-07-2024 End: 08-07-2024 Home visit Beatris Ferro RN [facility] [employer] Comment on above: Transition Of Care ( Discharged from [facility] to home with [facility]) Start: 08-04-2024 End: 08-04-2024 Telephone encounter Jenae Santamaria MD Work Phone: [facility] Start: 08-02-2024 ambulatory [facility] Facility:[facility] Start: 08-02-[address] Shari Hurd MD -[facility] Start: 08-02-2024 Dr. Shari Hurd MD [facility] Start: 07-31-2024 ambulatory [facility] Facility:[facility] Start: 07-31-[address] Shari Hurd MD -[facility] Start: 07-31-2024 Dr. Shari Hurd MD [facility] Start: 07-28-2024 ambulatory [facility] Facility:[facility] Start: 07-28-[address] Shari Hurd MD [facility] Start: 07-28-2024 Dr. Shari Hurd MD [facility] Start: 07-27-2024 ambulatory Jenae Santamaria [facility] Start: 07-24-2024 ambulatory [facility] Facility:[facility] Start: 07-24-[address] Shari Hurd MD [facility] Start: [facility] Start: 07-20-2024 Non-patient / Non-visit David Eldridge nd, DO -[facility] Start: 07-20-2024 David Friend DO -[facility] Start: 07-20-2024 Non-patient / Non-visit Dr. Tracy Ortiz MD [facility] Work Phone: Start: 07-20-2024 Dr. Miguel Vidal and [facility] Work Phone: Start: 07-19-2024 Non-patient / Non-visit Dr. Tracy Ortiz MD [facility] Work Phone: Start: 07-19-2024 Dr. Miguel Vidal and [facility] Work Phone: Start: 07-18-2024 Non-patient / Non-visit Dr. Tracy Ortiz MD [facility] Work Phone: Start: 07-18-2024 Dr. Miguel Vidal and [facility] Work Phone: Start: 07-17-2024 Non-patient / Non-visit David Frie nd DO -[facility] Start: 07-17-2024 David Friend DO -[facility] Start: 07-16-2024 Non-patient / Non-visit Dr. Tracy Ortiz MD [facility] Work Phone: Start: 07-16-2024 Dr. Miguel Vidal and [facility] Work Phone: Start: 07-15-2024 Non-patient / Non-visit Dr. Tracy Ortiz MD [facility] Work Phone: Start: 07-15-2024 Dr. Miguel Vidal and [facility] Work Phone: Start: 07-14-2024 Non-patient / Non-visit David Frie nd DO -[facility] Start: 07-14-2024 David Friend DO -[facility] Start: 07-14-2024 Non-patient / Non-visit Dr. Tracy Ortiz MD [facility] Work Phone: Start: 07-14-2024 Dr. Miguel Vidal and -[facility] Work Phone: Start: 07-13-2024 ambulatory Kulwinder De La O Fac ility:[facility] Start: 07-13-2024 End: 07-20-2024 Evaluation and management of inpatient Dr. Kulwinder De La O DO -Progressive Care Unit Work Phone: Start: 07-13-2024 End: 07-20-2024 Dr. Miguel Ortiz MD -[facility] Unit Work Phone: Start: 07-10-2024 End: 07-10-2024 Home visit Vick Rollins RN Work Phone: [employer] Comment on above: Transition Of Care ( [facility] discharged to [facility]) Start: 07-10-2024 End: 07-10-2024 ambulatory Vick Rollins RN Work Phone: [employer] Start: 07-10-[address] Shari Hurd MD -[facility] Start: 07-10-2024 Dr. Shari Hurd MD -[facility] Start: 07-07-2024 Non-patient / Non-[facility] Work Phone: Start: 07-07-2024 Dr. Ginger [facility] Work Phone: Start: 07-07-2024 [facility] / [facility] Start[facility] 07-07-2024 [facility] Start: 07-06-2024 Non-patient / Non-visit Dr. Efraín martinez MD -[facility] Start: 07-06-2024 Dr. Efraín Thompson MD -[facility] Start: 07-06-2024 Non-patient / Non-visit [facility] Work Phone: Start: 07-06-2024 Dr. Ginger [facility] Work Phone: Start: 07-05-2024 Non-patient / Non-visit David Eldridge nd DO -[facility] Start: 07-05-2024 David Friend DO -[facility] Start: 07-05-2024 Non-patient / Non-visit Dr. Ginger Espitia DO [facility] Work Phone: Start: 07-05-2024 Dr. Ginger Espitia DO [facility] Work Phone: Start: 07-04-2024 Non-patient / Non-visit Dr. Ginger Espitia DO [facility] Work Phone: Start: 07-04-2024 Dr. Ginger Espitia DO [facility] Work Phone: Start: 07-04-2024 End: 07-04-2024 Refill Jenae Santamaria MD Work Phone: [facility] Comment on above: Refill Request Start: 07-04-2024 Non-patient / Non-visit Jacey Araya [place] -[facility] Start: 07-04-2024 Jacey Araya [place] -[facility] Start: 07-04-2024 End: 07-04-2024 ambulatory Jenae Santamaria Facility:[facility] Start: 07-04-2024 End: 07-04-2024 Non-patient / Non-visit Dr. Oni Lundberg MD -[facility] Work Phone: Start: 07-04-2024 End: 07-04-2024 Dr. [facility] Work Phone: Start: 07-03-2024 Non-patient / Non-visit David Eldridge nd DO -[facility] Start: 07-03-2024 David Ramos DO -[facility] Start: 07-03-2024 Non-patient / Non-visit Dr. Evette HERNANDEZ [facility] Work Phone: Start: 07-03-2024 Dr. [facility] Work Phone: Start: 07-02-2024 Non-patient / Non-visit Dr. Alas [facility] Work Phone: Start: 07-02-2024 Dr. Kulwinder De La O [facility] Work Phone: Start: 07-01-2024 ambulatory [facility] Start: 07-01-2024 Non-patient / Non-visit Dr. Efraín martinez MD -[facility] Start: 07-01-2024 Dr. Efraín Thompson MD -[facility] Start: 07-01-2024 ambulatory [facility] Facility:[facility] Start: 07-01-2024 End: 07-07-2024 Evaluation and management of inpatient Dr. Kulwinder De La O [facility] Work Phone: Start: 07-01-2024 End: 07-07-2024 Dr. Ginger Espitia DO [facility] Un it Work Phone: Start: 05-19-2024 End: 05-19-2024 ambulatory YUDY BENOIT Facility:[facility] Start: 05-19-2024 End: 05-19-2024 Patient encounter procedure Yudy Zamorajami Work Phone: Podiatry Comment on above: Onychomycosis (Prima ry Dx); Pain in toe of left foot; Pain in toe of right foot; Diabetic polyneuropathy associated with type 2 diabetes mellitus ([facility]); Acquired hallux valgus of right foot; PAD (peripheral artery disease) ([facility]) Start: 05-12-2024 End: 05-15-2024 Refill Jenae Santamaria MD Work Phone: [facility] Comment on above: Refill Request Start: 04-25-2024 End: 04-26-2024 Telephone encounter Jenae Santamaria MD Work Phone: [facility] Comment on above: Patient Update Start: 04-19-2024 End: 04-19-2024 Patient encounter procedure [facility] Provider [facility] Start: 04-19-2024 End: 04-19-2024 Telephone encounter Jenae Santamaria MD Work Phone: [facility] Comment on above: Results Start: 04-18-2024 End: 04-18-2024 Telephone encounter Jenae Santamaria MD Work Phone: [facility] Comment on above: Results Start: 04-17-2024 End: 04-17-2024 Orders Only Jenae Santamaria MD Work Phone: [facility] Comment on above: Atherosclerotic card iovascular disease (Primary Dx); Hypertriglyceridemia Type 2 diabetes leoncio itus with other circulatory complication, with long-term current use of insulin (HCC) (Primary Dx); Unspecified hypothyroidism Vitamin D deficiency (Primary Dx) Start: 04-15-2024 End: 04-15-2024 ambulatory JENAE SANTAMARIA Facility:[facility] Start: 2024 End: 2024 Telephone encounter Jenae Santamaria MD Work Phone: [facility] Comment on above: Patient Question Start: 04-10-2024 End: 04-10-2024 Telephone encounter Mary Vale APRN.DISASTER DIRECTOR Work Phone: [facility] Cardiac, Thoracic [facility] Vascular Specialties Comment on above: Consult (PPG REFERRA L - Needs testing prior) Start: 04-07-2024 End: 04-07-2024 Telephone encounter Jenae Santamaria MD Work Phone: [facility] Comment on above: Consult (Consult to Vascular Surgery) Start: 04-07-2024 End: 04-07-2024 Office outpatient visit 25 minutes Jenae Santamaria MD Work Phone: [facility] Comment on above: Type 2 diabetes leoncio itus with other circulatory complication, with long-term current use of insulin (HCC) (Primary Dx); Unspecified hypothyroidism; Abdominal aortic aneurysm (AAA) without rupture, unspecified part (HCC); H/O aorto-femoral bypass; PAD (peripheral artery disease) (HCC); Chronic obstructive pulmonary disease, unspecified COPD type (HCC); JANELL (obstructive sleep apnea); Rectal cancer (HCC); Encounter for immunization; Vitamin D deficiency; Eosinophilic esophagitis; History of DVT (deep vein thrombosis) Start: 04-07-2024 End: 04-07-2024 ambulatory [facility] Facility:[facility] Start: 03-06-2024 End: 03-06-2024 ambulatory Gabriela Gan RN Work Phone: [employer] Start: 03-06-2024 End: 03-06-2024 Home visit Gabriela Gan RN Work Phone: [employer] Comment on above: Transition Of Care ( TCM f/u) Weekly phone contact (Recurring) for Transitional Care Management, Weekly phone contact (Recurring) for Transitional Care Management Start: 03-01-2024 End: 03-01-2024 ambulatory Gabriela Gan RN Work Phone: [employer] Start: 03-01-2024 End: 03-01-2024 Home visit Gabriela Gan RN Work Phone: [employer] Comment on above: Transition Of Care ( TCM f/u) Weekly phone contact (Recurring) for Transitional Care Management Start: 03-01-2024 End: 03-01-2024 Telephone encounter Jenae Santamarai MD Work Phone: [facility] Comment on above: Patient Update Start: 02-23-2024 ambulatory [facility] Facility:[facility] Start: 02-23-2024 End: 02-23-2024 ambulatory [facility] Facility:[facility] Start: 02-17-2024 End: 02-17-2024 Telephone encounter Zachary Lewis MD Work Phone: Vascular Surgery Start: 02-15-2024 End: 02-15-2024 ambulatory Gabriela Gan RN Work Phone: [employer] Start: 02-15-2024 End: 02-15-2024 Home visit Gabriela Gan RN Work Phone: [employer] Comment on above: Transition Of Care ( TCM f/u) Weekly phone contact (Recurring) for Transitional Care Management Start: 02-09-2024 End: 02-09-2024 ambulatory Jenae Santamaria Facility:[facility] Start: 02-07-2024 End: 02-07-2024 ambulatory Vick Rollins RN Work Phone: [employer] Start: 02-07-2024 End: 02-07-2024 Home visit Vick Rollins RN Work Phone: [employer] Comment on above: Transition Of Care ( Discharged from [facility]) Transition Of Care ( SNF D/C 02/04/24) Initial phone contact for Transitional Care Management Start: 02-07-2024 End: 02-09-2024 Telephone encounter Jenae Santamaria MD Work Phone: [facility] Comment on above: Orders Start: 01-21-2024 End: 01-31-2024 Telephone encounter Jenae Santamaria MD Work Phone: [facility] Comment on above: Patient Update Start: 12-27-2023 End: 12-27-2023 Telephone encounter Cameron Hernandez MD Work Phone: Urology Comment on above: Appointment Start: 12-14-2023 End: 12-14-2023 Telephone encounter Jenae Santamaria MD Work Phone: [facility] Start: 12-10-2023 End: 12-10-2023 Office outpatient visit 25 minutes Jenae Santamaria MD Work Phone: [facility] Comment on above: Primary hypertension (Primary Dx); Swelling of thigh; Encounter for immunization; Symptomatic stenosis of right carotid artery; Unspecified hypothyroidism; Chronic obstructive pulmonary disease, unspecified COPD type (HCC); Coronary artery disease involving twenty-nine palms coronary artery of twenty-nine palms heart without angina pectoris; Other hyperlipidemia; Type 2 diabetes mellitus with other circulatory complication, with long-term current use of insulin (HCC); History of CVA (cerebrovascular accident); History of rectal cancer; 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HCC); H/O aorto-femoral bypass; Benign prostatic hyperplasia with urinary retention Start: 11-26-2023 End: 11-26-2023 Patient encounter procedure Ccf Provider [facility] Start: 11-15-2023 End: 11-15-2023 Telephone encounter Cameron Hernandez MD Work Phone: Urology Start: 10-28-2023 Telephone encounter Cameron cohn MD Work Phone: Urology Start: 10-20-2023 Telephone encounter Jenae Santamaria MD Work Phone: [facility] Comment on above: Results Start: 10-14-2023 Telephone encounter Cameron cohn MD Work Phone: [facility] Comment on above: Patient Update Start: 10-05-2023 End: 10-05-2023 Patient encounter procedure Yudy Benoit Work Phone: Podiatry Comment on above: Onychomycosis (Prima ry Dx); Pain in toe of left foot; Pain in toe of right foot; Diabetic polyneuropathy associated with type 2 diabetes mellitus (HCC) Start: 09-27-2023 Refill Sloane Suazo MD Work Phone: [facility] Comment on above: Med Change Request Start: 09-17-2023 Orders Only Jenae Santamaria MD Work Phone: [facility] Comment on above: Thrombocytopenia (HC C) (Primary Dx); Unspecified hypothyroidism Start: 09-16-2023 Telephone encounter Jenae Santamaria MD Work Phone: [facility] Start: 09-15-2023 Telephone encounter Jenae Santamaria MD Work Phone: [facility] Comment on above: Orders (Plan of Care ) Patient Update Start: 09-15-2023 End: 09-15-2023 Subsequent hospital visit by physician Us Korey Parsons 2 Work Phone: Radiology Comment on above: Acute deep vein thro mbosis (DVT) of proximal vein of left lower extremity (HCC) [I82.4Y2] Start: 09-13-2023 Refill Jenae Santamaria MD Work Phone: [facility] Comment on above: Med Change Request Start: 09-10-2023 Telephone encounter Jenae Santamaria MD Work Phone: [facility] Comment on above: Procedure (US DVT LO WER LEFT - STAT) Start: 09-10-2023 End: 09-10-2023 Office outpatient visit 25 minutes Jenae Santamaria MD Work Phone: [facility] Comment on above: Acute deep vein thro mbosis (DVT) of proximal vein of left lower extremity (HCC) (Primary Dx); Encounter for immunization; Chronic obstructive pulmonary disease, unspecified COPD type ([facility]); Seasonal allergic rhinitis due to pollen; Type 2 diabetes mellitus with other circulatory complication, with long-term current use of insulin ([facility]); Unspecified hypothyroidism; Atherosclerosis of twenty-nine palms artery of both lower extremities with intermittent claudication ([facility]) Start: 08-27-2023 Telephone encounter Jenae Santamaria MD Work Phone: [facility] Comment on above: Patient Update Start: 08-26-2023 Refill Jenae Santamaria MD Work Phone: [facility] Comment on above: Med Change Request Start: 08-13-2023 Patient encounter procedure Ccf Provider [facility] Department Start: 08-06-2023 Patient encounter procedure Ccf Provider [facility] Start: 08-05-2023 Telephone encounter Jenae Santamaria MD Work Phone: [facility] Comment on above: Results Start: 08-03-2023 End: 08-03-2023 Office outpatient visit 25 minutes Jenae Santamaria MD Work Phone: [facility] Comment on above: Urinary tract infect ion associated with indwelling urethral catheter, initial encounter (HCC) (HCC) (Primary Dx); Acute deep vein thrombosis (DVT) of proximal vein of left lower extremity (HCC); Stage 3b chronic kidney disease ([facility]); Primary hypertension; Unspecified hypothyroidism; Chronic obstructive pulmonary disease, unspecified COPD type ([facility]); Symptomatic stenosis of right carotid artery; PAD (peripheral artery disease) ([facility]); Oropharyngeal dysphagia Start: 07-30-2023 Telephone encounter Hanna RODRIGUEZ Work Phone: Urology Comment on above: Patient Update Start: 07-27-2023 Telephone encounter Cameron cohn MD Work Phone: Urology Comment on above: Orders Start: 07-13-2023 Telephone encounter Mary Diez tthalws DENTAL OFFICE RECEPTIONIST.DISASTER DIRECTOR Work Phone: [facility] Comment on above: Consult (PPG REFERRA L-Patient declined due to location) Results Start: 07-09-2023 Telephone encounter Jenae Santamaria MD Work Phone: [facility] Comment on above: Referral Information (Vascular Surgery) Start: 07-08-2023 Telephone encounter Melisa Gerardo león DENTAL OFFICE RECEPTIONIST.DISASTER DIRECTOR Work Phone: Pulmonary Medicine Comment on above: Appointment Abdominal aortic ane urysm (AAA) without rupture, unspecified part ([facility]) Start: 07-06-2023 End: 07-06-2023 Patient encounter procedure Yudy Benoit Work Phone: Podiatry Comment on above: Diabetic polyneuropa thy associated with type 2 diabetes mellitus ([facility]) (Primary Dx); Acquired hallux valgus of right foot; PAD (peripheral artery disease) ([facility]); Onychomycosis; Pain in toe of left foot; Pain in toe of right foot Start: 07-02-2023 ambulatory Jenae Santamaria MD Work Phone: [facility] Comment on above: Kidney Value Test Start: 06-26-2023 Non-patient / Non-visit Dr. Krystle Chacon Work Phone: [facility] Work Phone: Start: 06-25-2023 Non-patient / Non-visit Dr. Krystle Chacon Work Phone: [facility] Work Phone: Start: 06-24-2023 Non-patient / Non-visit Dr. Krystle Chacon Work Phone: [facility] Work Phone: Start: 06-24-2023 Non-patient / Non-visit Dr. Krystle Chacon Work Phone: [facility] Start: 06-24-2023 Non-patient / Non-visit Dr. Krystle Chacon Work Phone: [facility] Start: 06-23-2023 Non-patient / Non-visit Dr. Krystle Chacon Work Phone: [facility] Work Phone: Start: 06-23-2023 Non-patient / Non-visit Dr. Krystle Chacon Work Phone: [facility] Start: 06-23-2023 Non-patient / Non-visit Dr. Krystle Chacon Work Phone: [facility] Start: 06-23-2023 End: 06-26-2023 Evaluation and management of inpatient [facility] Work Phone: Start: 06-16-2023 Telephone encounter Cameron cohn MD Work Phone: [facility] Comment on above: Patient Question Start: 06-09-2023 Telephone encounter Jenae Santamaria MD Work Phone: [facility] Comment on above: Results Start: 06-08-2023 End: 06-08-2023 Subsequent hospital visit by physician Us Korey Parsons 2 Work Phone: Radiology Comment on above: Left leg swelling [M 79.89] Start: 06-03-2023 Telephone encounter Gutierrez anand PA-C Work Phone: Urology Comment on above: Patient Update (CAITLYN) Start: 05-28-2023 Telephone encounter Bethel Serra [facility] Comment on above: Orders Start: 05-27-2023 End: 05-27-2023 ambulatory Brian Cummings MD Work Phone: [facility] Hematology [facility] Oncology Comment on above: Rectal cancer (HCC) (Primary Dx); Left leg swelling; Stage 3 chronic kidney disease, unspecified whether stage 3a or 3b CKD (HCC) Start: 05-27-2023 E-mail encounter porfirio Paez PA-C Work Phone: [facility] Start: 05-27-2023 Follow-up encounter Leonora Ruiz mace PA-C Work Phone: [facility] Comment on above: Follow up after toda y's visit Start: 05-27-2023 End: 05-27-2023 Patient encounter procedure Brian Cummings MD Work Phone: [facility] Start: 05-27-2023 End: 05-27-2023 Office outpatient new 20 minutes Leonoramakeda Paez PA-C Work Phone: [facility] Comment on above: History of colon can cer (Primary Dx); 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HCC); Elevated CEA; Moderate protein-calorie malnutrition (HCC) Start: 05-14-2023 End: 05-14-2023 Patient encounter procedure Maddie Jackson OD Work Phone: Ophthalmology Comment on above: Type 2 diabetes leoncio itus without retinopathy (HCC) (Primary Dx); Combined forms of age-related cataract of both eyes; Punctate keratitis, bilateral; Hypermetropia, bilateral; Regular astigmatism of both eyes Start: 05-11-2023 Patient encounter procedure Ccf Provider [facility] Department Start: 05-04-2023 Orders Only Jenae Santamaria MD Work Phone: [facility] Comment on above: Vitamin D deficiency (Primary Dx) Start: 05-03-2023 ambulatory Bethel Mitchell LPN [facility] Comment on above: Lab Results Start: 05-03-2023 E-mail encounter porfirio hicks caregiver Bethel Mitchell LPN [facility] Start: 04-07-2023 End: 04-07-2023 Office outpatient new 45 minutes Jenae Santamaria MD Work Phone: [facility] Comment on above: Encounter for medica l examination to establish care (Primary Dx); Cerebrovascular accident (CVA), unspecified mechanism (HCC); Primary hypertension; Screening for diabetic retinopathy; Encounter for screening for lung cancer; Type 2 diabetes mellitus with other circulatory complication, with long-term current use of insulin (HCC); Unspecified hypothyroidism; Other hyperlipidemia; Vitamin D deficiency; History of rectal cancer; Stage 3b chronic kidney disease (HCC) Start: 04-07-2023 End: 04-07-2023 Patient encounter status Jenae Santamaria MD Work Phone: [facility] Work Phone: Start: 03-02-2023 Telephone encounter Geovanna MCKEON S [facility] Comment on above: Home Care (Declined) Start: 02-26-2023 Telephone encounter Cameron cohn MD Work Phone: Urology Comment on above: Patient Question Start: 02-05-2023 End: 02-05-2023 Patient encounter procedure Cameron Hernandez MD Work Phone: Urology Comment on above: Retention of urine ( Primary Dx) Start: 01-26-2023 Telephone encounter Kelsi galeana DO Work Phone: Hematology/Oncology Comment on above: New Patient Start: 07-29-2020 Patient encounter procedure [facility](PICDAV FUNMILAYO) Start: 06-28-2020 End: 06-28-2020 Patient encounter procedure [facility] Start: 06-26-2020 End: 06-26-2020 Patient encounter procedure [facility] Start: 06-04-2020 End: 06-04-2020 Patient encounter procedure [facility] Start: 05-07-2020 Patient encounter procedure [facility](PICDAV CURTIS) Start: 04-26-2020 End: 04-26-2020 Patient encounter procedure [facility] Start: 04-02-2020 End: 04-02-2020 Patient encounter procedure [facility] Start: 03-01-2020 Evaluation and manag ement of inpatient -Phycl Cardio [place](/GO) Start: 03-01-2020 Patient encounter procedure [facility] Physician-Phycl Cardio [place]() Start: 02-05-2020 Evaluation and manag ement of inpatient -Phcl Urology [facility](PICDAAlexander MELLO) Start: 02-05-2020 Patient encounter procedure [facility] Physician-[facility](PICBANDAR MELLO) Start: 01-30-2020 End: 01-30-2020 Patient encounter procedure -[facility] Start: 01-24-2020 End: 01-24-2020 Patient encounter procedure -[facility] Start: 01-01-2020 Evaluation and manag ement of inpatient -[facility](BRANT MELLO) Procedures Date Procedure Procedure Detail Performing Clinician Start: 01-09-2025 Follow-up visit Follow Up GUTIERREZ ACEVEDO Start: 11-07-2024 Vitamin D, 25-hydroxy measurement Dr. Thai Hurd MD Comment on above: Vitamin D StatusDeficiency: <20 ng/mL (5 0nmol/L)Insufficiency: 20-30 ng/mL (50-75 nmol/L)Sufficiency: 30-100 ng/mL (75-250 nmol/L)Toxicity: >100 ng/mL (>250 nmol/L) Start: 09-27-2024 Urine microscopy: red cells Jenae Santamaria MD Work Phone: Start: 09-27-2024 Urnls dip stick/tablet reagent auto microscopy Jenae Santamaria MD Work Phone: Start: 09-27-[address] Shari Hurd MD Start: 09-27-2024 Ultrasound of scrotum with Doppler and color flow imaging Jenae Santamaria MD Work Phone: Start: 09-27-2024 Blood count smear mcrscp w/mnl difrntl wbc count Jenae Santamaria MD Work Phone: Start: 09-27-2024 Estimated creatinine clearance Jenae Santamaria MD Work Phone: Start: 09-27-2024 Mean corpuscular hemoglobin concentration determination Jenae Santamaria MD Work Phone: Start: 09-27-2024 Nucleated red blood cell count procedure Jenae Santamaria MD Work Phone: Start: 09-27-2024 Platelet mean volume determination Jenae Santamaria MD Work Phone: Start: 09-27-2024 Computed tomography of abdomen and pelvis with intravenous contrast Jenae Santamaria MD Work Phone: Start: 08-02-2024 Urine culture Jenae Santamaria MD Work Phone: Start: 08-02-2024 Urine microscopy: red cells Jenae Santamaria MD Work Phone: Start: 08-02-2024 Urnls dip stick/tablet reagent auto microscopy Jenae Santamaria MD Work Phone: Start: 07-31-2024 Blood count smear mcrscp w/mnl difrntl wbc count Jenae Santamaria MD Work Phone: Start: 07-31-2024 Mean corpuscular hemoglobin concentration determination Jenae Santamaria MD Work Phone: Start: 07-31-2024 Nucleated red blood cell count procedure Jenae Santamaria MD Work Phone: Start: 07-31-2024 Platelet mean volume determination Jenae Santamaria MD Work Phone: Start: 07-28-2024 Mean corpuscular hemoglobin concentration determination Jenae Santamaria MD Work Phone: Start: 07-28-2024 Platelet mean volume determination Jenae Santamaria MD Work Phone: Start: 07-24-2024 Blood count smear mcrscp w/mnl difrntl wbc count Jenae Santamaria MD Work Phone: Start: 07-24-2024 Mean corpuscular hemoglobin concentration determination Jenae Santamaria MD Work Phone: Start: 07-24-2024 Nucleated red blood cell count procedure Jenae Santamaria MD Work Phone: Start: 07-24-2024 Platelet mean volume determination Jenae Santamaria MD Work Phone: Start: 07-20-2024 Blood count smear mcrscp w/mnl difrntl wbc count Jenae Santamaria MD Work Phone: Start: 07-20-2024 Estimated creatinine clearance Jenae Santamaria MD Work Phone: Start: 07-20-2024 Flow cytometry cell surf marker techl only 1st Jenae Santamaria MD Work Phone: Start: 07-20-2024 Mean corpuscular hemoglobin concentration determination Jenae Santamaria MD Work Phone: Start: 07-20-2024 Myelocyte percent differential count Jenae Santamaria MD Work Phone: Start: 07-20-2024 Nucleated red blood cell count procedure Jenae Santamaria MD Work Phone: Start: 07-20-2024 Platelet mean volume determination Jenae Santamaria MD Work Phone: Start: 07-19-2024 Videoswallow Jenae Santamaria MD Work Phone: Start: 07-19-2024 Immature reticulocyte fraction Jenae Santamaria MD Work Phone: Start: 07-19-2024 Nucleated red blood cell count procedure Jenae Santamaria MD Work Phone: Start: 07-19-2024 Total iron binding capacity measurement Jenae Santamaria MD Work Phone: Comment on above: Test not performed Start: 07-14-2024 Esophagogastroduodenoscopy Jenae Santamaria MD Work Phone: Start: 07-13-2024 CT of abdomen and pelvis without contrast Jenae Santamaria MD Work Phone: Start: 07-10-2024 Mean corpuscular hemoglobin concentration determination Jenae Santamaria MD Work Phone: Start: 07-10-2024 Platelet mean volume determination Jenae Santamaria MD Work Phone: Start: 07-07-2024 Blood count smear mcrscp w/mnl difrntl wbc count Jenae Santamaria MD Work Phone: Start: 07-07-2024 Estimated creatinine clearance Jenae Santamaria MD Work Phone: Start: 07-07-2024 Mean corpuscular hemoglobin concentration determination Jenae Santamaria MD Work Phone: Start: 07-07-2024 Nucleated red blood cell count procedure Jenae Santamaria MD Work Phone: Start: 07-07-2024 Platelet mean volume determination Jenae Santamaria MD Work Phone: Start: 07-06-2024 Coagulation time, activated Jenae Santamaria MD Work Phone: Start: 07-05-2024 Serum inorganic phosphate measurement Jenae Santamaria MD Work Phone: Start: 07-04-2024 Esophagogastroduodenoscopy Jenae Santamaria MD Work Phone: Start: 07-03-2024 Videoswallow Jenae Santamaria MD Work Phone: Start: 07-03-2024 CT of abdominal aorta with contrast Jenae Santamaria MD Work Phone: Start: 07-01-2024 Assay of lactate Jenae Santamaria MD Work Phone: Start: 07-01-2024 Blood culture Jenae Santamaria MD Work Phone: Start: 07-01-2024 SARS-CoV-2, Influenza & RSV (PCR) Jenae Santamaria MD Work Phone: Start: 07-01-2024 Urine culture Jenae Santamaria MD Work Phone: Start: 07-01-2024 Jenae Santamaria MD Work Phone: Start: 07-01-2024 CT of abdomen and pelvis without contrast Jenae Santamaria MD Work Phone: Start: 07-01-2024 Plain chest X-ray Jenae Santamaria MD Work Phone: Start: 07-01-2024 Urine microscopy: red cells Jenae Santamaria MD Work Phone: Start: 07-01-2024 Urnls dip stick/tablet reagent auto microscopy Jenae Santamaria MD Work Phone: Start: 04-07-2024 [employer] COVID-19 VACCINE AGE 12+ YR (COMIRNATY) Jenae Santamaria MD Work Phone: Start: 09-15-2023 Dup-scan xtr veins unilateral/limited study Jenae Santamaria MD Work Phone: Start: 09-10-2023 Adult depression screening assessment Jenae Santamaria MD Work Phone: Start: 06-23-2023 CT of abdomen and pelvis without contrast Dr. Garfield Chacon Work Phone: Start: 06-23-[address] Garfield neal Work Phone: Start: 06-23-2023 Legionella [address] antigen assay Dr. Garfield Chacon Work Phone: Start: 06-23-2023 Nasal Screen MRSA/MSSA Dr. Garfield Chacon Work Phone: Start: 06-23-2023 Streptococcus pneumoniae Antigen (M Dr. Garfield Chacon Work Phone: Start: 06-23-[address] Garfield Chacon Work Phone: Start: 06-23-2023 Plain chest X-ray Dr. Garfield Chacon Work Phone: Start: 06-23-2023 Plain X-ray abdomen Dr. Garfield Chacon Work Phone: Start: 06-23-2023 US scan of gallbladder Dr. Garfield Chacon Work Phone: Start: 06-22-2023 Plain chest X-ray Start: 06-22-2023 SARS-CoV-2, Influenza & RSV (PCR) Start: 06-08-2023 Dup-scan xtr veins unilateral/limited study Brian Cummings MD Work Phone: Start: 06-28-2020 End: 06-28-2020 Microbial culture, routine Start: 06-04-2020 Urine culture Start: 04-26-2020 Urine culture Start: 04-02-2020 Bacteria identified Cx Nom (U) Start: 04-02-2020 Urine culture Start: 03-13-2020 History of carotid endarterectomy History of right-sided carotid endarterectomy Cameron Hernandez MD Work Phone: Start: 02-27-2020 Colonoscopy Cameron Hernandez MD Work Phone: Start: 01-24-2020 US scan of bladder Plan of Treatment Date Care Activity Detail Author Start: 10-30-2025 Complete blood count Hemoglobin/Hematocrit [facility] Start: 10-30-2025 Creatinine measurement Serum Creatinine [facility] Start: 09-07-2025 Diabetic foot examination Diabetic Foot Exam [facility] Start: 08-22-2025 Annual PCP Team Chronic Disease Visit Annual PCP Team Chronic Disease Visit [facility] Start: 08-22-2025 Complete blood count Hemoglobin/Hematocrit [facility] Start: 08-22-2025 Creatinine measurement Serum Creatinine [facility] Start: 08-22-2025 Hepatitis B surface antibody level LDL Cholesterol [facility] Start: 07-19-2025 Colorectal Cancer Screening Colorectal Cancer Screening [facility] Start: 07-19-2025 Screening for malignant neoplasm of colon [facility] Start: 07-19-2025 Sigmoidoscopy Sigmoidoscopy [facility] Start: 04-15-2025 Complete blood count Hemoglobin/Hematocrit [facility] Start: 04-15-2025 Creatinine measurement Serum Creatinine [facility] Start: 04-15-2025 Hepatitis B surface antibody level LDL Cholesterol [facility] Start: 04-07-2025 Annual PCP Team Chronic Disease Visit Annual PCP Team Chronic Disease Visit [facility] Start: 04-07-2025 BP Controlled (<130/80) BP Controlled (<130/80) [facility] Start: 02-22-2025 Hemoglobin A1c measurement HbA1C [facility] Start: 01-09-2025 End: 01-09-2025 Patient encounter procedure 01/09/2025 9:30 AM EDT Office Visit Urology [address] [place] [address] Gutierrez Acevedo PA-C [address] [place] [address] Chronic [facility] follow up Urology Comment on above: Chronic Maddox, [facility] [address] follow up Start: 12-12-2024 End: 12-12-2024 Patient encounter procedure 12/12/2024 10:00 AM EDT Office Visit Podiatry [address] [place] [address] KayceeParamew [address] [place] [address] 3 month follow up nail care Podiatry Comment on above: 3 month follow up nail care Start: 12-09-2024 Annual PCP Team Chronic Disease Visit Annual PCP Team Chronic Disease Visit [facility] Start: 12-09-2024 Complete blood count Hemoglobin/Hematocrit [facility] Start: 12-09-2024 Creatinine measurement Serum Creatinine [facility] Start: 11-27-2024 Influenza vaccination Influenza Vaccine (#1) [facility] Start: 11-24-2024 End: 11-24-2024 Patient encounter procedure 11/24/2024 11:20 AM EDT Office Visit [facility] [address] [place], [place] [id number] Jenae Santamaria MD [address], [place] [address] 3 month follow up [facility] Comment on above: 3 month follow up Start: 11-14-2024 End: 11-14-2024 Nursing evaluation of patient and report Urology Comment on above: Chronic Maddox Chronic Maddox- needs to be established with urology provider before nurse visits. Start: 10-24-2024 End: 01-23-2025 CBC W Auto Differential panel - Blood COMPLETE BLOOD COUNT AND DIFFERENTIAL Lab Routine Anemia, unspecified type Expected: 10/24/2024 (Approximate), Expires: 01/23/2025 [facility] Comment on above: Expected: 10/24/2024 (Approximate), Expi res: 01/23/2025 Start: 10-24-2024 End: 01-23-2025 Ferritin [Mass/volume] in Serum or Plasma FERRITIN Lab Routine Anemia, unspecified type Expected: 10/24/2024 (Approximate), Expires: 01/23/2025 [facility] Comment on above: Expected: 10/24/2024 (Approximate), Expi res: 01/23/2025 Start: 10-24-2024 End: 01-23-2025 Iron and Iron binding capacity panel - Serum or Plasma IRON AND TIBC Lab Routine Anemia, unspecified type Expected: 10/24/2024 (Approximate), Expires: 01/23/2025 [facility] Comment on above: Expected: 10/24/2024 (Approximate), Expi res: 01/23/2025 Start: 10-24-2024 End: 01-23-2025 Lipid 1996 panel - Serum or Plasma LIPID PANEL, FASTING Lab Routine Type 2 diabetes mellitus with other circulatory complication, with long-term current use of insulin (HCC) Expected: 10/24/2024 (Approximate), Expires: 01/23/2025 [facility] Comment on above: Expected: 10/24/2024 (Approximate), Expi res: 01/23/2025 Start: 10-24-2024 End: 01-23-2025 Thyrotropin [Units/volume] in Serum or Plasma THYROID STIMULATING HORMONE Lab Routine Unspecified hypothyroidism Expected: 10/24/2024 (Approximate), Expires: 01/23/2025 [facility] Work Phone: Comment on above: Expected: 10/24/2024 (Approximate), Expi res: 01/23/2025 Start: 10-05-2024 Covid-19 Vaccine () Covid-19 Vaccine () [facility] Start: 09-27-2024 [facility] Start: 09-27-2024 End: 09-27-2024 [facility] Start: 09-27-2024 End: 09-27-2024 Patient encounter procedure Cat Scan Comment on above: History of rectal cancer [Z85.048] Start: 09-20-2024 End: 12-20-2024 Bacteria identified in Urine by Culture BACTERIAL CULTURE, URINE Microbiology Routine Recurrent UTI Expected: 09/20/2024, Expires: 12/20/2024 [facility] Work Phone: Comment on above: Expected: 09/20/2024, Expires: Start: 09-19-2024 End: 09-19-2024 Patient encounter procedure 09/19/2024 9:15 AM EDT Office Visit Urology [address] [place] [address] Gutierrez Acevedo PA-C [address] [place] [address] Urinary retention [R33.9] Urology Comment on above: Urinary retention [R33.9] Start: 09-15-2024 End: 09-15-2024 Patient encounter procedure 09/15/2024 11:20 AM EDT Visit (SP) Office [facility] General Hematology and Oncology [address] [place] [address] Brian Cummings MD [address] [place], [place] [id number] ov f/u seen Dr Cummings 2023 ref back from Jenae Santamaria for hx of rectal ca [facility] Hematology and Oncology Comment on above: ov f/u seen Dr Cummings 2023 ref back from Jenae Santamaria for hx of rectal ca Start: 09-14-2024 Complete blood count Hemoglobin/Hematocrit [facility] Start: 09-14-2024 Creatinine measurement Serum Creatinine [facility] Start: 09-14-2024 Hepatitis B surface antibody level LDL Cholesterol [facility] Start: 09-09-2024 Annual PCP Team Chronic Disease Visit Annual PCP Team Chronic Disease Visit [facility] Start: 09-09-2024 Anxiety Screening Anxiety Screening [facility] Start: 09-09-2024 Depression Screening Depression Screening [facility] Start: 09-07-2024 End: 09-07-2024 Patient encounter procedure 09/07/2024 9:45 AM EDT Office Visit Podiatry [address] [place] [address] Yudy Benoit [address] [place], [place] [id number] 3 month follow up nail care Podiatry Comment on above: 3 month follow up nail care Start: 08-25-2024 End: 11-24-2024 Cobalamin (Vitamin B12) [Mass/volume] in Serum or Plasma VITAMIN B12 Lab Routine Anemia, unspecified type Expected: 08/25/2024, Expires: 11/24/2024 [facility] Comment on above: Expected: 08/25/2024, Expires: Start: 08-25-2024 End: 11-24-2024 Folate [Mass/volume] in Serum or Plasma FOLATE, SERUM Lab Routine Anemia, unspecified type Expected: 08/25/2024, Expires: 11/24/2024 [facility] Comment on above: Expected: 08/25/2024, Expires: Start: 08-25-2024 End: 08-25-2024 Diabetic care education 08/25/2024 9:00 AM EDT Education [facility] Diabetes [facility] [address] [place], [place] [address] [address] [place] [address] [facility] Comment on above: Diabetes education Start: 08-22-2024 End: 11-21-2024 Microalbumin/Creatinine [Mass Ratio] in Urine ALBUMIN/CREATININE RATIO, URINE Lab Routine Type 2 diabetes mellitus with other circulatory complication, with long-term current use of insulin (HCC) Expected: 08/22/2024, Expires: 11/21/2024 [facility] Comment on above: Expected: 08/22/2024, Expires: Start: 08-22-2024 End: 11-21-2024 Urinalysis complete panel - Urine URINALYSIS (WITH MICROSCOPIC) WITH CULTURE IF INDICATED Lab Routine Recurrent UTI Expected: 08/22/2024, Expires: 11/21/2024 [facility] Work Phone: Comment on above: Expected: 08/22/2024, Expires: Start: 08-22-2024 End: 08-22-2024 Patient encounter procedure 08/22/2024 10:40 AM EDT Office Visit [facility] Medicine [place] [address], [place] [address] Jenae Santamaria MD [address], [place] [id number] [facility] follow up [facility] Comment on above: [facility] hospital follow up Start: 08-18-2024 End: 08-18-2024 Patient encounter procedure Podiatry Comment on above: 3 month follow up nail care Start: 08-08-2024 End: 08-08-2024 Patient encounter procedure 08/08/2024 10:40 AM EDT Office Visit [facility] [address] [place] [address] Jenae Santamaria MD [address] [place] [address] follow up [facility] Comment on above: follow up Start: 08-02-2024 Annual PCP Team Chronic Disease Visit Annual PCP Team Chronic Disease Visit [facility] Start: 07-20-2024 Patient discharge [facility] Start: 07-20-2024 Administration of blood product [facility] Start: 07-15-2024 Administration of blood product [facility] Start: 07-15-2024 Inhalation therapy procedure [facility] Start: 07-14-2024 [facility] Start: 07-14-2024 Referral to vascular surgeon [facility] Start: 07-14-2024 Hemoglobin A1c measurement HbA1C [facility] Start: 07-14-2024 Administration of blood product [facility] Start: 07-13-2024 Application of intermittent pneumatic compression device [facility] Start: 07-13-2024 Ambulation without limitation [facility] Start: 07-13-2024 Assessment of risk of venous thromboembolism [facility] Start: 07-13-2024 Care regimes management [facility] Start: 07-13-2024 Insertion of catheter into peripheral vein [facility] Start: 07-13-2024 Notification of physician [facility] Start: 07-13-2024 Oxygen therapy [facility] Start: 07-13-2024 Providing care according to standard [facility] Start: 07-13-2024 Referral to gastroenterology service [facility] Start: 07-13-2024 Referral to occupational therapist [facility] Start: 07-13-2024 Referral to service [facility] Start: 07-13-2024 Speech therapy assessment [facility] Start: 07-13-2024 End: 07-13-2024 [facility] Start: 07-13-2024 Following clinical pathway protocol [facility] Start: 07-13-2024 Verification routine [facility] Start: 07-13-2024 Hospital admission, emergency, from emergency room, medical nature [facility] Start: 07-13-2024 Admission procedure [facility] Start: 07-07-2024 Patient discharge [facility] Start: 07-07-2024 End: 07-07-2024 Patient encounter procedure 07/07/2024 9:00 AM EDT Office Visit [facility] [address] [place], [place] [address] Jenae Santamaria MD [address] [place] [address] 3 month follow up 40 mins per provider [facility] Comment on above: 3 month follow up 40 mins per provider Start: 07-06-2024 Removal of thrombus [facility] Start: 07-05-2024 Creatinine measurement Serum Creatinine [facility] Start: 07-05-2024 Diabetic foot examination Diabetic Foot Exam [facility] Start: 07-03-2024 [facility] Start: 07-03-2024 Referral to service [facility] Start: 07-03-2024 Referral to vascular surgeon [facility] Start: 07-03-2024 Referral to gastroenterology service [facility] Start: 07-02-2024 Inhalation therapy procedure [facility] Start: 07-01-2024 Speech therapy assessment [facility] Start: 07-01-2024 Consultation for treatment [facility] Start: 07-01-2024 Bacteria identified in Blood by Culture Blood Culture [facility] Start: 07-01-2024 Bacteria identified in Urine by Culture Urine Culture [facility] Start: 07-01-2024 End: 07-01-2024 Following clinical pathway protocol [facility] Start: 07-01-2024 Ambulation without limitation [facility] Start: 07-01-2024 Assessment of risk of venous thromboembolism [facility] Start: 07-01-2024 Insertion of catheter into peripheral vein [facility] Start: 07-01-2024 Measuring intake and output [facility] Start: 07-01-2024 Oxygen therapy [facility] Start: 07-01-2024 Providing care according to standard [facility] Start: 07-01-2024 Referral to occupational therapist [facility] Start: 07-01-2024 Referral to service [facility] Start: 07-01-2024 [facility] Start: 07-01-2024 Hospital admission, emergency, from emergency room, medical nature [facility] Start: 07-01-2024 Verification routine [facility] Start: 07-01-2024 Admission procedure [facility] Start: 07-01-2024 End: 07-01-2024 [facility] Start: 07-01-2024 Patient referral to dietitian [facility] Start: 06-16-2024 End: 09-15-2024 TSH W/REFLEX FT4 TSH W/REFLEX FT4 Lab Routine Unspecified hypothyroidism Expected: 06/16/2024, Expires: 09/15/2024 [facility] Work Phone: Comment on above: Expected: 06/16/2024, Expires: Start: 06-07-2024 Creatinine measurement Serum Creatinine [facility] Start: 06-07-2024 Hepatitis B screening Urine Albumin:Creatinine Ratio [facility] Start: 05-26-2024 BP Controlled (<130/80) BP Controlled (<130/80) [facility] Start: 05-26-2024 End: 05-26-2024 Diabetic care education 05/26/2024 1:00 PM EST Education [facility] [address] [place], [place] [address] [address] [facility] [place], [place] [id number] Diabetes education [facility] Comment on above: Diabetes education Start: 05-19-2024 End: 05-19-2024 Patient encounter procedure 05/19/2024 3:40 PM EST Office Visit Podiatry [address] [place] [address] Yudy Benoit [address] [address] 3 month follow up nail care Podiatry Comment on above: 3 month follow up nail care Start: 05-18-2024 End: 05-18-2024 Patient encounter procedure 05/18/2024 10:00 AM EST Office Visit [facility] [address] [place] [address] Maddie Jackson, OD [address] [place] [address] 1 yr for complete eye exam Ophthalmology Comment on above: 1 yr for complete eye exam Start: 05-14-2024 Glaucoma screening Dilated Retinal Exam [facility] Start: 05-07-2024 Annual PCP Team Chronic Disease Visit Annual PCP Team Chronic Disease Visit [facility] Start: 05-01-2024 Complete blood count Hemoglobin/Hematocrit [facility] Start: 05-01-2024 Creatinine measurement Serum Creatinine [facility] Start: 05-01-2024 Hepatitis B screening Urine Albumin:Creatinine Ratio [facility] Start: 05-01-2024 Hepatitis B surface antibody level LDL Cholesterol [facility] Start: 2024 End: 07-11-2024 Urinalysis complete panel - Urine URINALYSIS (WITH MICROSCOPIC) WITH CULTURE IF INDICATED Lab Routine Urinary tract infection associated with indwelling urethral catheter, initial encounter (HCC) (HCC) Expected: 2024, Expires: 07/11/2024 [facility] Work Phone: Comment on above: Expected: 2024, Expires: Start: 04-07-2024 End: 07-07-2024 25-hydroxyvitamin D3 [Mass/volume] in Serum or Plasma VITAMIN D 25 HYDROXY Lab Routine Vitamin D deficiency Expected: 04/07/2024, Expires: 07/07/2024 [facility] Comment on above: Expected: 04/07/2024, Expires: Start: 01-10-2025 Annual PCP Team Chronic Disease Visit Annual PCP Team Chronic Disease Visit [facility] Start: 04-07-2024 BP Controlled (<130/80) BP Controlled (<130/80) [facility] in Start: 04-07-2024 End: 07-07-2024 CBC W Auto Differential panel - Blood COMPLETE BLOOD COUNT AND DIFFERENTIAL Lab Routine PAD (peripheral artery disease) (HCC) Rectal cancer (HCC) Expected: 04/07/2024, Expires: 07/07/2024 [facility] Comment on above: Expected: 04/07/2024, Expires: Start: 04-07-2024 End: 07-07-2024 Comprehensive metabolic 2000 panel - Serum or Plasma COMPREHENSIVE METABOLIC PANEL Lab Routine Type 2 diabetes mellitus with other circulatory complication, with long-term current use of insulin (HCC) Expected: 04/07/2024, Expires: 07/07/2024 [facility] Comment on above: Expected: 04/07/2024, Expires: Start: 04-07-2024 End: 07-07-2024 Hemoglobin A1c in Blood HEMOGLOBIN A1C Lab Routine Type 2 diabetes mellitus with other circulatory complication, with long-term current use of insulin (HCC) Expected: 04/07/2024, Expires: 07/07/2024 [facility] Comment on above: Expected: 04/07/2024, Expires: Start: 04-07-2024 End: 07-07-2024 Lipid 1996 panel - Serum or Plasma LIPID PANEL BASIC Lab Routine Type 2 diabetes mellitus with other circulatory complication, with long-term current use of insulin (HCC) Expected: 04/07/2024, Expires: 07/07/2024 [facility] Comment on above: Expected: 04/07/2024, Expires: Start: 04-07-2024 End: 07-07-2024 TSH W/REFLEX FT4 TSH W/REFLEX FT4 Lab Routine Unspecified hypothyroidism Expected: 04/07/2024, Expires: 07/07/2024 [facility] Work Phone: Comment on above: Expected: 04/07/2024, Expires: Start: 04-07-2024 End: 04-07-2024 Patient encounter procedure 04/07/2024 9:20 AM EST Office Visit [facility] [address], [place] [id number] Jenae Santamaria MD [address], [place] [address] 4 mo [facility] Comment on above: 4 mo Start: 03-29-2024 Advance Directive Discussion Advance Directive Discussion [facility] Start: 03-16-2024 Hemoglobin A1c measurement HbA1C [facility] Start: 03-10-2024 End: 03-10-2024 Patient encounter procedure 03/10/2024 8:20 AM EST Office Visit [facility] [address] [place] [id number] Ching Fu APRN.DISASTER DIRECTOR [address], [place] [id number] yearly- with YUMIKO per [facility] Comment on above: yearly- with YUMIKO per David Start: 03-09-2024 End: 03-09-2024 Patient encounter procedure Podiatry Comment on above: 3 month follow up nail care Start: 02-14-2024 End: 02-14-2024 Patient encounter procedure 02/14/2024 10:40 AM EST Office Visit [facility] [address], [place] [address] Jenae Santamaria MD [address] [place] [address] Hosp/Rehab Follow up [facility] Comment on above: Hosp/Rehab Follow up Start: 02-10-2024 End: 02-10-2024 Patient encounter procedure Urology Comment on above: yearly yearly- with YUMIKO per David Start: 01-07-2024 End: 01-07-2024 Patient encounter procedure 01/07/2024 10:00 AM EDT [place] [address] Yudy Benoit [address] [place] [address] 3 month follow up nail care Podiatry Comment on above: 3 month follow up nail care Start: 12-10-2023 End: 12-10-2023 Patient encounter procedure 12/10/2023 10:00 AM EDT Office Visit [facility] [address] [place] [address] Jenae Santamaria MD [address] [place] [address] 3 Month Follow-up [facility] Comment on above: 3 Month Follow-up Start: 11-28-2023 Covid-19 Vaccine ( season) Covid-19 Vaccine () [facility] Start: 11-28-2023 Covid-19 Vaccine ( season) Covid-19 Vaccine ( season) [facility] Start: 11-28-2023 Covid-19 Vaccine ( season) Covid-19 Vaccine () [facility] Start: 11-28-2023 Influenza vaccination [facility] Start: 11-16-2023 Creatinine measurement Serum Creatinine [facility] Start: 11-13-2023 Complete blood count Hemoglobin/Hematocrit [facility] Start: 11-06-2023 Hemoglobin/Hematocrit Hemoglobin/Hematocrit [facility] Start: 10-30-2023 Hemoglobin A1c measurement HbA1C [facility] Start: 10-17-2023 End: 01-16-2024 Basic metabolic 2000 panel - Serum or Plasma BASIC METABOLIC PANEL Lab Routine Thrombocytopenia (HCC) Expected: 10/17/2023, Expires: 01/16/2024 [facility] Work Phone: Comment on above: Expected: 10/17/2023, Expires: Start: 10-17-2023 End: 01-16-2024 CBC panel - Blood by Automated count COMPLETE BLOOD COUNT Lab Routine Thrombocytopenia (HCC) Expected: 10/17/2023, Expires: 01/16/2024 [facility] Comment on above: Expected: 10/17/2023, Expires: Start: 10-17-2023 End: 01-16-2024 Cobalamin (Vitamin B12) [Mass/volume] in Serum or Plasma VITAMIN B12 Lab Routine Thrombocytopenia (HCC) Expected: 10/17/2023, Expires: 01/16/2024 [facility] Comment on above: Expected: 10/17/2023, Expires: Start: 10-17-2023 End: 01-16-2024 Ferritin [Mass/volume] in Serum or Plasma FERRITIN Lab Routine Thrombocytopenia (HCC) Expected: 10/17/2023, Expires: 01/16/2024 [facility] Comment on above: Expected: 10/17/2023, Expires: Start: 10-17-2023 End: 01-16-2024 Folate [Mass/volume] in Serum or Plasma FOLATE, SERUM Lab Routine Thrombocytopenia (HCC) Expected: 10/17/2023, Expires: 01/16/2024 [facility] Comment on above: Expected: 10/17/2023, Expires: Start: 10-17-2023 End: 01-16-2024 Iron and Iron binding capacity panel - Serum or Plasma IRON AND TIBC Lab Routine Thrombocytopenia (HCC) Expected: 10/17/2023, Expires: 01/16/2024 [facility] Comment on above: Expected: 10/17/2023, Expires: Start: 10-15-2023 End: 10-15-2023 Patient encounter procedure [facility] Start: 10-05-2023 End: 10-05-2023 Patient encounter procedure 10/05/2023 9:30 AM EDT Office Visit Podiatry [address] [place] [id number] Yudy Benoit [address] [place] [id number] 3 monnth follow up Podiatry Comment on above: 3 monnth follow up Start: 09-15-2023 End: 09-15-2023 Patient encounter procedure 09/15/2023 10:30 AM EDT Appointment Radiology [address] [place] [address] Acute deep vein thrombosis (DVT) of proximal vein of left lower extremity (HCC) [I82.4Y2] Radiology Comment on above: Acute deep vein thrombosis (DVT) of prox imal vein of left lower extremity (HCC) [I82.4Y2] Start: 09-10-2023 End: 12-10-2023 Alpha 1 antitrypsin [Mass/volume] in Serum or Plasma [id number] Lab Routine Chronic obstructive pulmonary disease, unspecified COPD type (HCC) Expected: 09/10/2023, Expires: 12/10/2023 [facility] Comment on above: Expected: 09/10/2023, Expires: Start: 09-10-2023 End: 12-10-2023 Hemoglobin A1c in Blood HEMOGLOBIN A1C Lab Routine Type 2 diabetes mellitus with other circulatory complication, with long-term current use of insulin (HCC) Expected: 09/10/2023, Expires: 12/10/2023 [facility] Comment on above: Expected: 09/10/2023, Expires: Start: 09-10-2023 End: 12-10-2023 Lipid 1996 panel - Serum or Plasma LIPID PANEL BASIC Lab Routine 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) Expected: 09/10/2023, Expires: 12/10/2023 [facility] Comment on above: Expected: 09/10/2023, Expires: Start: 09-10-2023 End: 12-10-2023 Thyrotropin [Units/volume] in Serum or Plasma THYROID STIMULATING HORMONE Lab Routine Unspecified hypothyroidism Expected: 09/10/2023, Expires: 12/10/2023 [facility] Comment on above: Expected: 09/10/2023, Expires: Start: 09-02-2023 End: 09-02-2023 Patient encounter procedure 09/02/2023 9:40 AM EDT Office Visit [facility] [address] [place] [address] Jenae Santamaria MD [address] [place] [address] 1 month follow up [facility] Comment on above: 1 month follow up Start: 08-03-2023 End: 11-02-2023 Bacteria identified in Urine by Culture URINE CULTURE Microbiology Routine Urinary tract infection associated with indwelling urethral catheter, initial encounter ([facility]) ([facility]) Expected: 08/03/2023, Expires: 11/02/2023 [facility] Work Phone: Comment on above: Expected: 08/03/2023, Expires: Start: 08-03-2023 End: 11-02-2023 CBC W Auto Differential panel - Blood COMPLETE BLOOD COUNT AND DIFFERENTIAL Lab Routine Acute deep vein thrombosis (DVT) of proximal vein of left lower extremity ([facility]) Expected: 08/03/2023, Expires: 11/02/2023 [facility] Comment on above: Expected: 08/03/2023, Expires: Start: 08-03-2023 End: 11-02-2023 Comprehensive metabolic 2000 panel - Serum or Plasma COMPREHENSIVE METABOLIC PANEL Lab Routine Stage 3b chronic kidney disease ([facility]) Expected: 08/03/2023, Expires: 11/02/2023 [facility] Comment on above: Expected: 08/03/2023, Expires: Start: 08-03-2023 End: 08-03-2023 Patient encounter procedure 08/03/2023 11:20 AM EDT Office Visit [facility] [address] [place] [address] Jenae Santamaria MD [address] [place], [place] [address] 3 month follow up [facility] Comment on above: 3 month follow up Start: 07-10-2023 End: 10-09-2023 Thyrotropin [Units/volume] in Serum or Plasma TSH BLD Lab Routine Unspecified hypothyroidism Expected: 07/10/2023, Expires: 10/09/2023 [facility] Work Phone: Comment on above: Expected: 07/10/2023, Expires: Start: 07-02-2023 End: 10-01-2023 Basic metabolic 2000 panel - Serum or Plasma BASIC METABOLIC PNL Lab Routine Stage 3b chronic kidney disease (HCC) Expected: 07/02/2023, Expires: 10/01/2023 [facility] Work Phone: Comment on above: Expected: 07/02/2023, Expires: Start: 06-26-2023 Patient discharge [facility] Start: 06-26-2023 Referral to service [facility] Start: 06-24-2023 Oxygen therapy [facility] Start: 06-24-2023 Consultation [facility] Start: 06-24-2023 Inhalation therapy procedure [facility] Start: 06-23-2023 CT Abdomen and Pelvis WO contrast [facility] Start: 06-23-2023 CT of abdomen and pelvis without contrast Abdomen/Pelvis without Cont [facility] Start: 06-23-2023 Care planning and problem solving actions [facility] Start: 06-23-2023 Referral to service [facility] Start: 06-23-2023 Verification routine [facility] Start: 06-23-2023 Care regimes management [facility] Start: 06-23-2023 Notification of physician [facility] Start: 06-23-2023 [facility] Start: 06-23-2023 Plain chest X-ray Chest 1 View (Portable) [facility] Start: 06-23-2023 Following clinical pathway protocol [facility] Start: 06-23-2023 Application of intermittent pneumatic compression device [facility] Start: 06-23-2023 Cardiac monitoring [facility] Start: 06-23-2023 Catheterization of vein [facility] Start: 06-23-2023 Consultation [facility] Start: 06-23-2023 Continuous pulse oximetry [facility] Start: 06-23-2023 Notification of physician [facility] Start: 06-23-2023 Vitamin B12 measurement [facility] Start: 06-23-2023 Streptococcus pneumoniae antigen assay [facility] Start: 06-23-2023 End: 06-23-2023 [facility] Start: 06-23-2023 Blood culture [facility] Start: 06-23-2023 Troponin I measurement [facility] Start: 06-23-2023 Thyroid stimulating hormone measurement [facility] Start: 06-23-2023 Admission procedure [facility] Start: 06-23-2023 Patient referral to dietitian [facility] Start: 06-22-2023 End: 06-22-2023 Blood culture [facility] Start: 06-22-2023 End: 06-22-2023 [facility] Start: 06-22-2023 Bacteria identified in Blood by Culture Blood Culture [facility] Start: 06-22-2023 Bacteria identified in Urine by Culture [facility] Start: 05-27-2023 End: 08-26-2023 MONOCLONAL PROTEIN, SERUM (BLOOD) MONOCLONAL PROTEIN, SERUM (BLOOD) Lab Routine Stage 3 chronic kidney disease, unspecified whether stage 3a or 3b CKD (HCC) Expected: 05/27/2023, Expires: 08/26/2023 [facility] Work Phone: Comment on above: Expected: 05/27/2023, Expires: 4 Start: 05-27-2023 End: 08-26-2023 PROTEIN ELECTROPHORESIS SERUM W/INTERP PROTEIN ELECTROPHORESIS SERUM W/INTERP Lab Routine Stage 3 chronic kidney disease, unspecified whether stage 3a or 3b CKD (HCC) Expected: 05/27/2023, Expires: 08/26/2023 [facility] Work Phone: Comment on above: Expected: 05/27/2023, Expires: 4 Start: 05-07-2023 Hemoglobin A1c measurement HbA1C [facility] Start: 05-07-2023 Hemoglobin A1c/Hemoglobin.total in Blood HbA1C [facility] Start: 04-23-2023 Serum Creatinine Serum Creatinine [facility] Start: 04-07-2023 End: 07-07-2023 25-hydroxyvitamin D3 [Mass/volume] in Serum or Plasma VITAMIN D 25 HYDROXY Lab Routine Vitamin D deficiency Expected: 04/07/2023, Expires: 07/07/2023 [facility] Work Phone: Comment on above: Expected: 04/07/2023, Expires: Start: 04-07-2023 End: 07-07-2023 ALBUMIN/CREAT RATIO RND UR ALBUMIN/CREAT RATIO RND UR Lab Routine Type 2 diabetes mellitus with other circulatory complication, with long-term current use of insulin (HCC) Expected: 04/07/2023, Expires: 07/07/2023 [facility] Work Phone: Comment on above: Expected: 04/07/2023, Expires: Start: 04-07-2023 End: 07-07-2023 Carcinoembryonic Ag [Mass/volume] in Serum or Plasma CEA BLD Lab Routine History of rectal cancer Expected: 04/07/2023, Expires: 07/07/2023 [facility] Work Phone: Comment on above: Expected: 04/07/2023, Expires: Start: 04-07-2023 End: 07-07-2023 CBC W Auto Differential panel - Blood CBC + DIFF Lab Routine History of rectal cancer Expected: 04/07/2023, Expires: 07/07/2023 [facility] Work Phone: Comment on above: Expected: 04/07/2023, Expires: Start: 04-07-2023 End: 07-07-2023 Comprehensive metabolic 2000 panel - Serum or Plasma COMP METABOLIC PANEL Lab Routine Primary hypertension Vitamin D deficiency Expected: 04/07/2023, Expires: 07/07/2023 [facility] Work Phone: Comment on above: Expected: 04/07/2023, Expires: Start: 04-07-2023 End: 07-07-2023 Hemoglobin A1c in Blood HGB A1C Lab Routine Type 2 diabetes mellitus with other circulatory complication, with long-term current use of insulin (HCC) Expected: 04/07/2023, Expires: 07/07/2023 [facility] Work Phone: Comment on above: Expected: 04/07/2023, Expires: Start: 04-07-2023 End: 07-07-2023 Lipid 1996 panel - Serum or Plasma LIPID PANEL BASIC Lab Routine Other hyperlipidemia Expected: 04/07/2023, Expires: 07/07/2023 [facility] Work Phone: Comment on above: Expected: 04/07/2023, Expires: Start: 04-07-2023 End: 07-07-2023 Thyrotropin [Units/volume] in Serum or Plasma TSH BLD Lab Routine Unspecified hypothyroidism Expected: 04/07/2023, Expires: 07/07/2023 [facility] Work Phone: Comment on above: Expected: 04/07/2023, Expires: Start: 03-29-2023 Advance Directive Discussion Advance Directive Discussion [facility] Start: 03-29-2023 Behavioral Health Screening Behavioral Health Screening [facility] Start: 03-29-2023 Depression Assessment Depression Assessment [facility] Start: 11-27-2022 Covid-19 Vaccine ( season) Covid-19 Vaccine ( season) [facility] Start: 11-27-2022 Covid-19 Vaccine ( season) Covid-19 Vaccine ( season) [facility] Start: 11-27-2022 Influenza [facility] Start: 10-16-2022 Screening for malignant neoplasm of lung Lung Cancer Screening [facility] Start: 04-29-2022 Pneumococcal Vaccine: 65+ (3 - PPSV23 or PCV20) Pneumococcal Vaccine: 65+ (3 - PPSV23 or PCV20) [facility] Start: 04-29-2022 Pneumococcal Vaccine: 65+ (3 of 3 - PPSV23 or PCV20) Pneumococcal Vaccine: 65+ (3 of 3 - PPSV23 or PCV20) [facility] Start: 03-29-2022 Advance Directive Discussion Advance Directive Discussion [facility] Start: 03-29-2022 Depression Assessment Depression Assessment [facility] Start: 10-18-2021 Serum Creatinine Serum Creatinine [facility] Start: 02-26-2021 Colonoscopy Colonoscopy [facility] Start: 02-26-2021 Screening for malignant neoplasm of colon Colonoscopy [facility] Start: 03-29-2015 Medicare Annual Wellness Visit Medicare Annual Wellness Visit [facility] Start: 2010 Hepatitis B Vaccine (1 of 3 - Risk 3-dose series) Hepatitis B Vaccine (1 of 3 - Risk 3-dose series) [facility] Start: 2010 RSV Vaccine (1 - 1-dose 60+ series) RSV Vaccine (1 - 1-dose 60+ series) [facility] Start: 2010 RSV Vaccine (1 - Risk 60-74 years 1-dose series) RSV Vaccine (1 - Risk 60-74 years 1-dose series) [facility] Start: 2000 Influenza vaccination Lung Cancer Screening [facility] Start: 2000 Screening for malignant neoplasm of lung Lung Cancer Screening [facility] Start: 2000 Shingrix Vaccine (1 of 2) Shingrix Vaccine (1 of 2) [facility] Start: 1995 Cologuard (FIT-DNA) Cologuard (FIT-DNA) [facility] Start: [address] Colonography [facility] Start: 1995 Fecal Occult Blood Fecal Occult Blood [facility] Start: 1995 Screening for malignant neoplasm of colon [facility] Start: 1980 Zoledronic acid therapy Alpha-1 Antitrypsin Deficiency Screening [facility] Start: 1969 Urine microalbumin profile DTaP,Tdap,Td Vaccine (1 - Tdap) [facility] Start: 1968 Annual PCP Team Chronic Disease Visit Annual PCP Team Chronic Disease Visit [facility] Start: 1968 BP Controlled (<130/80) BP Controlled (<130/80) [facility] Start: 1968 Hepatitis B surface antibody level LDL Cholesterol [facility] Start: 1968 Spirometry Spirometry [facility] Start: 1960 3 comp foot exam completed Diabetic Foot Exam [facility] Start: 1960 Diabetic foot examination Diabetic Foot Exam [facility] Start: 1960 Glaucoma screening Dilated Retinal Exam [facility] Start: 1960 Hepatitis B screening Urine Albumin:Creatinine Ratio [facility] Start: 1960 Hepatitis C antibody, confirmatory test Dilated Retinal Exam [facility] Start: 1950 Abdominal Aortic Aneurysm Screening Abdominal Aortic Aneurysm Screening [facility] Start: 1950 Abdominal aortic aneurysm screening Abdominal Aortic Aneurysm Screening [facility] Amphetamine [Mass/volume] in Urine [facility] End: 09-01-2024 Ankle-brachial index US ANKLE BRACHIAL INDICES Radiology Routine PAD (peripheral artery disease) (HCC) 1 Occurrences starting 08/03/2023 until 09/01/2024 [facility] Comment on above: 1 Occurrences starting 08/03/2023 until 09/01/2024 Bacteria identified in Urine by Culture [facility] Benzodiazepine measurement, urine [facility] Cocaine measurement, urine [facility] End: 10-15-2025 CT Abdomen and Pelvis W contrast IV CT ABD/PEL W IVCON Radiology Routine History of rectal cancer 1 Occurrences starting 09/15/2024 until 10/15/2025 [facility] Work Phone: Comment on above: 1 Occurrences starting 09/15/2024 until 10/15/2025 End: 06-25-2024 CT Abdomen and Pelvis WO contrast CT ABD/PEL WO IVCON Radiology Routine Rectal cancer (HCC) 1 Occurrences starting 05/27/2023 until 06/25/2024 [facility] Work Phone: Comment on above: 1 Occurrences starting 05/27/2023 until 06/25/2024 End: 10-15-2025 CT Chest W contrast IV CT CHEST W IVCON Radiology Routine History of rectal cancer 1 Occurrences starting 09/15/2024 until 10/15/2025 [facility] Comment on above: 1 Occurrences starting 09/15/2024 until 10/15/2025 End: 06-25-2024 CT Chest WO contrast CT CHEST WO IVCON Radiology Routine Rectal cancer (HCC) 1 Occurrences starting 05/27/2023 until 06/25/2024 [facility] Work Phone: Comment on above: 1 Occurrences starting 05/27/2023 until 06/25/2024 End: 01-08-2025 CT Thigh - left WO contrast CT FEMUR WO IVCON LEFT Radiology Routine Swelling of thigh 1 Occurrences starting 12/10/2023 until 01/08/2025 [facility] Work Phone: Comment on above: 1 Occurrences starting 12/10/2023 until 01/08/2025 Folate [Mass/volume] in Serum or Plasma [facility] Lactic acid measurement [facility] Lactic acid measurement [facility] Legionella pneumophi la Ag [Presence] in Urine [facility] Measurement of 3,4-methylenedioxymetham phetamine in urine [facility] Methadone measuremen t, urine [facility] Patient Education [facility] Work Phone: Patient referral [facility] Work Phone: pH of Urine [facility] Phencyclidine [Prese nce] in Urine [facility] End: 04-07-2025 Polysomnogram POLYSOMNOGRAM (PSG) Procedures Routine JANELL (obstructive sleep apnea) 1 Occurrences starting 04/07/2024 until 04/07/2025 [facility] Comment on above: 1 Occurrences starting 04/07/2024 until 04/07/2025 End: 09-01-2024 RF videography Hypopharynx and Esophagus Views W liquid and paste contrast PO during swallowing XR MODIFIED BARIUM SWALLOW W SPEECH THERAPY Radiology Routine Oropharyngeal dysphagia 1 Occurrences starting 08/03/2023 until 09/01/2024 [facility] Comment on above: 1 Occurrences starting 08/03/2023 until 09/01/2024 Urine barbiturate measurement [facility] Urine cannabinoid measurement [facility] Urine culture [facility] Urine culture [facility] Urine opiate measurement [facility] End: 01-08-2025 US Carotid arteries - bilateral US CAROTID BILATERAL Radiology Routine Symptomatic stenosis of right carotid artery 1 Occurrences starting 12/10/2023 until 01/08/2025 [facility] Comment on above: 1 Occurrences starting 12/10/2023 until 01/08/2025 End: 09-21-2025 US Kidney - bilateral and Urinary bladder US KIDNEY/BLADDER Radiology Routine Urinary retention Hydronephrosis of right kidney 1 Occurrences starting 08/22/2024 until 09/21/2025 [facility] Comment on above: 1 Occurrences starting 08/22/2024 until 09/21/2025 End: 09-01-2024 US Lower extremity artery US ARTERIAL PVR LOWER Radiology Routine PAD (peripheral artery disease) (HCC) 1 Occurrences starting 08/03/2023 until 09/01/2024 [facility] Comment on above: 1 Occurrences starting 08/03/2023 until 09/01/2024 End: 06-25-2024 US Lower extremity vein - left US DVT LOWER LEFT Radiology STAT Left leg swelling 1 Occurrences starting 05/27/2023 until 06/25/2024 [facility] Work Phone: Comment on above: 1 Occurrences starting 05/27/2023 until 06/25/2024 End: 10-09-2024 US Lower extremity vein - left US DVT LOWER LEFT Radiology STAT Acute deep vein thrombosis (DVT) of proximal vein of left lower extremity (HCC) 1 Occurrences starting 09/10/2023 until 10/09/2024 [facility] Work Phone: Comment on above: 1 Occurrences starting 09/10/2023 until 10/09/2024 End: 10-06-2025 XR Chest PA and Lateral XR CHEST 2V FRONTAL/LAT Radiology Routine Rales 1 Occurrences starting 09/06/2024 until 10/06/2025 [facility] Work Phone: Comment on above: 1 Occurrences starting 09/06/2024 until 10/06/2025 [facility] Immunizations Immunization Date Immunization Notes Care Provider Clara winston 04-07-2024 COVID-19 vaccine, ag e 12+ yr (Flavourly-P[facility]arelloNTQurater [facility]) Jenae Santamaria MD Work Phone: [facility] 12-10-2023 influenza, high dose seasonal, preservative-free Jenae Santamaria MD Work Phone: [facility] 12-10-2023 influenza virus vaccine, unspecified formulation [address]ta Scott RD Work Phone: [facility] 09-10-2023 pneumococcal conjuga te (PCV20) vaccine, 20 valent (PREVNAR 20) Jenae Santamaria MD Work Phone: [facility] 09-10-2023 pneumococcal Conjuga te, unspecified formulation Jenae Santamaria MD Work Phone: [facility] 12-20-2021 influenza (aIIV4) vaccine, age 65+ yr, quadrivalent, PF (FLUAD QUAD) Jenae Santamaria MD Work Phone: [facility] 12-20-2021 influenza virus vaccine, unspecified formulation Cameron Hernandez MD Work Phone: [facility] 04-29-2021 pneumococcal conjuga te vaccine, 13 valent Jenae Santamaria MD Work Phone: [facility] 04-23-2021 unknown vaccine or immune globulin Jenae Santamaria MD Work Phone: [facility] 10-29-2020 tuberculin skin test ; purified protein derivative solution, intradermal Cameron Hernandez MD Work Phone: [facility] 10-22-2020 tuberculin skin test ; purified protein derivative solution, intradermal Cameron Hernandez MD Work Phone: [facility] 09-11-2020 COVID-19 original vaccine, age 12+ yr, monovalent (PFIZER-BIONTECH - PURPLE TOP) Jenae Santamaria MD Work Phone: [facility] 08-02-2020 COVID-19 original vaccine, age 12+ yr, monovalent (PFIZER-BIONTECH - PURPLE TOP) Jenae Santamaria MD Work Phone: [facility] 08-02-2020 COVID-19 original vaccine, full dose, monovalent (MODERNA) Jenae Santamaria MD Work Phone: [facility] 08-02-2020 unknown vaccine or immune globulin Jenae Santamaria MD Work Phone: [facility] 07-31-2020 COVID-19 original vaccine, age 6 yr - 11 yr, monovalent (MODERNA) Jenae Santamaria MD Work Phone: [facility] 07-05-2020 COVID-19 original vaccine, age 12+ yr, monovalent (PFIZER-BIONTQurater - PURPLE TOP) Jenae Santamaria MD Work Phone: [facility] 07-05-2020 COVID-19 original vaccine, full dose, monovalent (MODERNA) Jenae Santamaria MD Work Phone: [facility] 07-05-2020 unknown vaccine or immune globulin Jenae Santamaria MD Work Phone: [facility] 01-19-2020 influenza (aIIV4) vaccine, age 65+ yr, quadrivalent, PF (FLUAD QUAD) Jenae Santamaria MD Work Phone: [facility] 10-25-2019 pneumococcal conjuga te vaccine, 13 valent Jenae Santamaria MD Work Phone: [facility] 12-19-2018 influenza (HD-IIV4) vaccine, age 65+ yr, high dose, quadrivalent, PF (FLUZONE HIGH-DOSE) Jenae Santamaria MD Work Phone: [facility] 12-09-2017 influenza (HD-IIV4) vaccine, age 65+ yr, high dose, quadrivalent, PF (FLUZONE HIGH-DOSE) Jenae Santamaria MD Work Phone: [facility] 01-03-2014 influenza, injectabl e, quadrivalent, preservative free Cameron Hernandez MD Work Phone: [facility] 01-03-2014 pneumococcal polysaccharide vaccine, 23 valent Cameron Hernandez MD Work Phone: [facility] NEGATED: Highlighted row has not occurred!10-04-2020 COVID-19 vaccine (RHODA) Cameron Hernandez MD Work Phone: [facility] Comment on above: Deferred: - patient vaccinated Payers Date Payer Category Payer Medicare [id number] 2024 Self-pay [id number] 2018 [facility] FEP PPO [id number] 2018 Unknown ANTHEM ANTHE[employer] FEP PPO [id number] 2018-Present [phone] [address] [place] [address] PPO [id number] 2015 Medicare [id number] 2015 Medicare [id number] 1991 Unknown [id number] Unknown [id number] 2.840.1.086662.3.579. 2.462 Unknown [id number] 2.840.1.107124.3.579. 2.462 Unknown [id number] 2.840.1.525467.3.579. 2.462 Unknown [id number] 2.16840.1.780349.3.579. 2.462 Unknown [id number] 2.16840.1.464855.3.579. 2.462 Unknown [id number] 2.16840.1.090851.3.579. 2.462 Unknown [id number] 2.16840.1.088008.3.579. 2.462 Unknown [id number] 2.16840.1.137859.3.579. 2.462 Unknown [id number] 2.16.840.1.148159.3.579. 2.462 Unknown [id number] 2.16.840.1.210020.3.579. 2.462 Unknown [id number] 2.16.840.1.989609.3.579. 2.462 Unknown [id number] 2.16.840.1.754924.3.579. 2.462 Unknown [id number] 2.16.840.1.508437.3.579. 2.462 Unknown [id number] 2.16.840.1.068827.3.579. 2.462 Unknown [id number] 2.16840.1.365390.3.579. 2.462 Unknown [id number] 2.16.840.1.358951.3.579. 2.462 Unknown [id number] 2.840.1.602628.3.579. 2.462 Unknown [id number] 2.16840.1.801551.3.579. 2.462 Unknown [id number] 2.16.840.1.589035.3.579. 2.462 Unknown [id number] 2.16.840.1.538157.3.579. 2.462 Unknown [id number] 2.16840.1.183947.3.579. 2.462 Unknown [id number] 2.16840.1.379112.3.579. 2.462 Unknown [id number] 2.16840.1.056580.3.579. 2.462 Unknown [id number] 2.16.840.1.746965.3.579. 2.462 Unknown [id number] 2.16.840.1.235168.3.579. 2.462 Unknown [id number] 2.16.840.1.461237.3.579. 2.462 Unknown [id number] 2.16840.1.527771.3.579. 2.462 Unknown [id number] 2.16.840.1.964907.3.579. 2.462 Unknown [id number] 2.16.840.1.233601.3.579. 2.462 Unknown [id number] 2.16.840.1.453455.3.579. 2.462 Unknown [id number] 2.16.840.1.841516.3.579. 2.462 Unknown [id number] 2.16.840.1.016036.3.579. 2.462 Unknown [id number] 2.16.840.1.946873.3.579. 2.462 Unknown [id number] 2.16.840.1.501416.3.579. 2.462 Unknown [id number] 2.840.1.273578.3.579. 2.462 Unknown [id number] 2.840.1.876051.3.579. 2.462 Unknown [id number] 2.16840.1.930692.3.579. 2.462 Unknown [id number] 2.16840.1.696478.3.579. 2.462 Unknown [id number] 2.16840.1.915865.3.579. 2.462 Unknown [id number] 2.16840.1.051960.3.579. 2.462 Unknown [id number] 2.16.840.1.158729.3.579. 2.462 Unknown [id number] 2.16.840.1.161486.3.579. 2.462 Unknown [id number] 2.16.840.1.032305.3.579. 2.462 Unknown [id number] 2.16.840.1.141963.3.579. 2.462 Unknown [id number] 2.16.840.1.495618.3.579. 2.462 Unknown [id number] 2.16.840.1.419901.3.579. 2.462 Unknown [id number] 2.16.840.1.257450.3.579. 2.462 Unknown [id number] 2.16.840.1.433767.3.579. 2.462 Unknown [id number] 2.16.840.1.812283.3.579. 2.462 Social History Date Type Detail Facility Start: 11-10-2019 End: 09-27-2024 Tobacco smoking status NHIS Former Smoker [facility] Start: 03-25-2015 No [facility] Work Phone: Start: 11-10-2019 Former Smoker [facility] [facility] Work Phone: Start: 03-25-2015 60 [facility] Work Phone: Start: 05-01-2015 does not use [facility] Work Phone: Start: 1950 Sex Assigned At Male [facility] Start: 04-02-2020 [facility] Work Phone: Start: 10-28-1963 End: 10-27-2013 History of tobacco use Current smoker [facility] Start: 10-28-1963 End: 10-27-2013 History of tobacco use Cigarette Smoker [facility] History of tobacco use Cigar Smoker [facility] Start: 02-05-2023 End: 03-09-2024 Cigarettes smoked current (pack per day) - Reported 3 [facility] Work Phone: Start: 02-05-2023 End: 12-10-2023 Tobacco use and exposure Smokeless tobacco non-user [facility] Start: 02-05-2023 End: 10-27-2024 Alcohol intake Current non-drinker of alcohol (finding) [facility] Start: 02-05-2023 End: 03-09-2024 Tobacco use panel [facility] Work Phone: Start: 11-14-2013 How hard is it for y ou to pay for the very basics like food, housing, medical care, and heating Not hard at all [facility] Work Phone: (I/We) worried wheth er (my/our) food would run out before (I/we) got money to buy more. Never true [facility] Work Phone: Start: 1950 Sex Assigned At Not on file [facility] Start: 06-22-2023 End: 06-23-2023 Tobacco smoking status NYIS Unknown if ever smoked [facility] Start: 07-01-2024 End: 07-13-2024 Sex Male (finding) [facility] Has the electric, ga s, oil, or water company threatened to shut off services in your home in past 12Mo No [facility] Medical Equipment Procedure Code Equipment Code Equipment Origin al Text Equipment Identifier Dates EGD, with monitored anesthesia care [id number] FDA Start: 07-14-2024 Graft Cv 40cm 20 mm 10mm - [id number] Start: 12-27-2013 [place] Cv 6x6in Thk1.65mm Ptfe - [id number] Start: 12-27-2013 [id number] FDA Start: 07-06-2024 Goals Date Patient Goal Desired Activity /State Functional Status Date Assessment Result Facility 07-20-2024 Functional status Bedrest [facility] Work Phone: 07-07-2024 Functional status Ambulates [facility] Work Phone: 06-26-2023 Functional status Bedrest [facility] Work Phone: 02-26-2014 Are you deaf, or do you have serious difficulty hearing No 02/26/2014 3:01 PM Erin Alex LPN No [facility] 02-26-2014 Are you blind, or do you have serious difficulty seeing, even when wearing glasses No 02/26/2014 3:01 PM Erin Alex LPN No [facility] 02-26-2014 Do you have serious difficulty walking or climbing stairs No 02/26/2014 3:01 PM Erin Alex LPN No [facility] 02-26-2014 Do you have difficul ty dressing or bathing No 02/26/2014 3:01 PM Erin Alex LPN No [facility] 02-26-2014 Because of a physica l, mental, or emotional condition, do you have difficulty doing errands alone such as visiting a physician's office or shopping No 02/26/2014 3:01 PM Erin Alex LPN No [facility] Mental Status Date Assessment Result Facility 09-27-2024 Cognitive function Awake;Alert;A ppropriate ;Follows Commands [facility] Work Phone: 07-20-2024 Cognitive function Voice/Name [facility] Work Phone: 07-07-2024 Cognitive function Voice/Name [facility] Work Phone: 06-26-2023 Cognitive function Voice/Name [facility] Work Phone: 02-26-2014 Because of a physica l, mental, or emotional condition, do you have serious difficulty concentrating, remembering, or making decisions No 02/26/2014 3:01 PM Erin Alex LPN No [facility] Clinical Notes 10-08-2020 to 01-15-2025 Vick Rollins RN - 12/13/2024 11:26 AM Carolyne Miranda LPN - 12/12/2024 10:58 AM Yudy Rey - 12/12/2024 10:38 AM Judie Hooker RN - 12/12/2024 10:01 AM EDTPatient Instructions Note Date & Type Note Facility 01-15-2025 Note HNO ID: [id number] Author: VICK RLOLINS RN Service: ? Author Type: Registered Nurse Type: Progress Notes Filed: 01/15/2025 09:03 Note Text: Spoke to Hanna at [facility]. Patient is now a [facility]term[facility] resident under the care of facility physician Dr. Paul Lewis. Dr. Lewis will manage all patient care hereafter (including refilling prescriptions). [facility] chart updated to reflect PCP change. Vick Rollins RN [facility] 01-15-2025 Note Patient Outreach (AG ACM) EMELIA JOHNSON ([id number]) 1950 M Date Time Provider Department 01/15/25 VICK ROLLINS [facility] During your visit today, we recorded the following information about you: Vick Rollins RN 01/15/2025 9:03 AM Signed Spoke to Hnana at [facility]. Patient is now a intermediate resident under the care of facility physician Dr. Paul Lewis. Dr. Lewis will manage all patient care hereafter (including refilling prescriptions). [facility] chart updated to reflect PCP change. Vick Rollins RN Allergies As of Date: 01/15/2025 Noted Allergy Reaction LIPITOR (ATORVASTATIN) 11/17/2013 14 - Other: See Comments Comments: body aches Date Reviewed: 01/09/2025 Reviewed by: Erin Osborne LPN - Fully Assessed Reason for Visit: Transition Of Care [4074] Cmt: SNF Update. long-term resident Prescriptions as of 01/15/2025 - HYDROcodone-acetaminophen (NORCO) 5-325 mg per tablet Take 1 tablet by mouth every 8 hours as needed. - magnesium oxide (MAG-OX) 400 mg (241.3 mg magnesium) tablet Take 400 mg by mouth two times a day. - senna-docusate (SENNA PLUS) 8.6-50 mg per tablet Take 2 tablets by mouth two times a day. - levothyroxine (SYNTHROID) 175 mcg tablet Take 1 tablet by mouth daily before breakfast. - acetaminophen 325 mg cap Take 650 [...] affected area two times a day. - Cholecalciferol, Vitamin D3, (VITAMIN D) 25 mcg (1,000 unit) cap Take 2 capsules by mouth once daily. - rosuvastatin (CRESTOR) 10 mg tablet Take 1 tablet by mouth daily at bedtime. - ferrous sulfate 325 mg (65 mg iron) tablet Take 1 tablet by mouth every other day. - xjrsiwmxucq-wtstpnyxi-izulklll (TRELEGY ELLIPTA) 100-62.5-25 mcg inhalation powder Inhale [...] AT BEDTIME - Blood Pressure Test Kit-Large (Senscient CHOICE BP MONITOR) 1 Each two times a day. - flash glucose sensor (FREESTYLE HEMA 14 DAY SENSOR) kit 1 Each four times daily. - Fenofibrate 160 mg tablet Take 1 tablet by mouth once daily. 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 02/08/2020 Atherosclerosis of twenty-nine palms artery of extremity w*11/21/2013 Other hyperlipidemia [E78.49] Unspecified hypothyroidism [E03.9] Smoker [F17.200] 01/27/2015 Chronic ischemic right MCA stroke [Z86.73] 02/08/2020 CAD (coronary artery disease), twenty-nine palms coronary *12/27/2013 Postprocedural hypotension [I95.81] 12/27/2013 09/25/2020 Stress hyperglycemia [R73.9] 12/27/2013 01/27/2015 Hypoxia [R09.02] 12/27/2013 12/28/2013 Acute blood loss anemia [D62] 12/30/2013 01/27/2015 Acute post-operative pain [G89.18] 01/03/2014 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] 01/03/2020 Embolic stroke involving right carotid artery (*02/08/2020 Symptomatic carotid artery stenosis [I65.29] 02/13/2020 BPH (benign prostatic hyperplasia) [N40.0] CKD (chronic kidney disease) stage 3, GFR 30-59* Type (more content not included)... [facility] 01-09-2025 Note HNO ID: [id number] Author: GUTIERREZ ACEVEDO PA-C Service: ? Author Type: Physician Patient Accounting Representative Type: Progress Notes Filed: 01/09/2025 12:50 Note Text: [facility] NEW PATIENT CLINIC NOTE (M) Note was generated by [employer] and edited as appropriate SERVICE DATE: January 09, 2025 NAME: Emelia Johnson GENDER: male CHIEF COMPLAINT: The patient is a 74-year-old male with scrotal and lower extremity lymphedema, presenting for evaluation of persistent scrotal and leg edema. HISTORY OF PRESENT ILLNESS: The patient is a 74-year-old male with scrotal and lower extremity lymphedema, presenting for evaluation of persistent scrotal and leg edema. The patient is a 74-year-old male with a history of scrotal and leg edema, presenting for follow-up. Scrotal and Leg Edema: - Edema in the scrotum and leg noted since September. - Recent scrotal ultrasound showed no hydrocele or varicocele; findings included thickness and edema in the scrotal wall. - No testicular pain reported. - Scheduled to see vascular medicine for further evaluation. Urinary Tract Infection: - History of UTI on September 27, treated with Bactrim. - No recurrent urinary issues since treatment. - Denies hematuria or fever. - Indwelling catheter in place, managed by facility staff. LABS: No results found for: "PSA" Creatinine Date Value Ref Range Status 10/30/2024 1.47 (H) 0.73 - 1.22 mg/dL Final 10/29/2024 1.37 (H) 0.73 - 1.22 mg/dL Final 10/28/2024 1.41 (H) 0.73 - 1.22 mg/dL Final No results found for: TESTOST Hematocrit (%) Date Value 10/30/2024 35.6 10/29/2024 38.5 10/28/2024 38.3 10/18/2020 26.3 10/17/2020 26.8 10/16/2020 26.6 No results found for: "PSA" MEDICATIONS: HYDROcodone-acetaminophen (NORCO) 5-325 mg per tablet Take 1 tablet by mouth every 8 hours as needed. magnesium oxide (MAG-OX) 400 mg (241.3 mg magnesium) tablet Take 400 mg by mouth two times a day. senna-docusate (SENNA PLUS) 8.6-50 mg per tablet Take 2 tablets by mouth two times a day. levothyroxine (SYNTHROID) 175 mcg tablet Take 1 tablet by mouth daily before breakfast. (Patient taking differently: Take 150 mcg by mouth daily before breakfast. 150 MCG by mouth in the morning every Wednesday, Wednesday, Wednesday, , Wednesday, Wednesday. On Wednesday take 75 MCG by mouth.) acetaminophen 325 mg cap Take 650 mg by mouth every 4 hours as needed for pain or fever (specify temp.) (Oral or supository). aluminum-magnesium hydroxide-simethicone (MAALOX,MYLANTA,MAG-AL PLUS) 200-200-20 mg/5 mL suspension Take 30 mL by mouth every 6 hours as needed. (Patient taking differently: Take 30 mL by mouth every 4 hours as needed. 225-200MG/5ML) ergocalciferol 50,000 unit capsule (VITAMIN D2, DRISDOL) Take 50,000 Units by mouth one time a week. fenofibrate (LOFIBRA) 200 mg capsule Take 200 mg by mouth daily with breakfast. glucagon 1 mg/0.2 mL syrg Inject 1 mL subcutaneously as needed (For symptomatic hypoglycemia). dextrose (GLUCOSE GEL PO) Take by mouth as needed (hypoglycemia). GUAIFENESIN PO Take 10 mL by mouth every 4 hours as needed (cough, congestion). furosemide (LASIX) 20 mg tablet Take 20 mg by mouth two times a day. (Patient taking differently: Take 20 mg by mouth once daily.) magnesium hydroxide (MILK OF MAGNESIA PO) Take 30 mL by mouth as needed (Constipation). traMADol (ULTRAM) 50 mg tablet Take 50 mg by mouth two times a day as needed for pain. (Patient taking differently: Take 50 mg by mouth every 6 hours as needed for pain.) rosuvastatin (CRESTOR) 10 mg tablet Take 1 tablet by mouth daily at bedtime. oxysvsmecdv-hszqzgcsz-ajvlpxqx (TRELEGY ELLIPTA) 100-62.5-25 mcg inhalation powder Inhale 1 puff as instructed once daily. linaGLIPtin (TRADJENTA) 5 mg tab Take 1 tablet by mouth once daily. pantoprazole DR (PROTONIX) 40 mg tablet Take 1 tablet by mouth two times a day. amLODIPine (NORVASC) 5 mg tablet TAKE 1 TABLET BY MOUTH EVERY DAY loratadine (CLARITIN) 10 mg tablet TAKE 1 TABLET BY MOUTH EVERY DAY icosapent ethyl (VASCEPA) 1 gram capsule Take 2 capsules by mouth two times a day. albuterol HFA (PROVENTIL HFA) 90 mcg/actuation inhaler Inhale 1-2 Puffs as instructed four times a day as needed for wheezing/shortness of breath. fluticasone (FLONASE) 50 mcg/actuation nasal spray SPRAY 1 SPRAY INTO EACH NOSTRIL AT BEDTIME ciprofloxacin HCl (CIPRO) 500 mg tablet Take 500 mg by mouth two times a day. Till 12/17/24 for UTI alogliptin (NESINA) 6.25 mg tab Take 6.25 mg by mouth two times a day. triamcinolone acetonide (KENALOG) 0.1 % cream Apply to affected area two times a day. Cholecalciferol, Vitamin D3, (VITAMIN D) 25 mcg (1,000 unit) cap Take 2 capsules by mouth once daily. (Patient not taking: Reported on 12/12/2024) ferrous sulfate 325 mg (65 mg iron) tablet Take 1 tablet by mouth every other day. (Patient not taking: Reported on (more content not included)... [facility] 12-13-2024 Note HNO ID: [id number] Author: VICK ROLLINS RN Service: ? Author Type: Registered Nurse Type: Progress Notes Filed: 12/13/2024 11:28 Note Text: Spoke to nurse at [facility]. Patient remains at the facility with no plans for discharge at this time. The facility physician has assumed care of the patient during their stay. This includes medications and medication refills. I will let your office know when he/she is discharged. Vick Rollins RN December 13, 2024 11:26 AM [facility] 12-13-2024 History of Presen t illness Narrative Spoke to nurse at [facility]. Patient remains at the facility with no plans for discharge at this time. The facility physician has assumed care of the patient during their stay. This includes medications and medication refills. I will let your office know when he/she is discharged. Vick Rollins RN December 13, 2024 11:26 AM documented in this encounter [facility] 12-13-2024 Note Patient Outreach (AG ACM) ALEXEMELIA Ranjeet ([id number]) 1950 M Date Time Provider Department 12/13/24 VICK ROLLINS [facility] During your visit today, we recorded the following information about you: Vick Rollins, LAQUITA 12/13/2024 11:28 AM Signed Spoke to nurse at [facility]. Patient remains at the facility with no plans for discharge at this time. The facility physician has assumed care of the patient during their stay. This includes medications and medication refills. I will let your office know when he/she is discharged. Vick Rollins RN December 13, 2024 11:26 AM Allergies As of Date: 12/13/2024 Noted Allergy Reaction LIPITOR (ATORVASTATIN) 11/17/2013 14 - Other: See Comments Comments: body aches Date Reviewed: 12/12/2024 Reviewed by: Judie Dewey, LAQUITA - Fully Assessed Reason for Visit: Transition Of Care [3304] Cmt: SNF update Prescriptions as of 12/13/2024 [...] tablet by mouth every other day. - inlbtcnqrvv-dqmsjzrja-ixzzkoln (TRELEGY ELLIPTA) 100-62.5-25 mcg inhalation powder Inhale [...] aortic aneurysm (TAAA) without*11/21/2013 02/08/2020 Atherosclerosis of twenty-nine palms artery of extremity w*11/21/2013 Other hyperlipidemia [E78.49] Unspecified hypothyroidism [E03.9] Smoker [F17.200] 01/27/2015 Chronic ischemic right MCA stroke [Z86.73] 02/08/2020 CAD (coronary artery disease), twenty-nine palms coronary *12/27/2013 Postprocedural hypotension [I95.81] 12/27/2013 09/25/2020 [...] aortic aneurysm) without rupture* Thoracoabdominal aortic aneurysm (more content not included)... [facility] 12-12-2024 Note HNO ID: [id number] Author: CAROLYNE MENON LPN Service: ? Author Type: Licensed Nurse Type: Progress Notes Filed: 12/12/2024 11:02 Note Text: Per Dr. Benoit, Band aid and antibiotic was applied to left foot Carolyne Menon LPN [facility] 12-12-2024 History of Presen t illness Narrative Per Dr. Testrake, Band aid and antibiotic was applied to left foot Carolyne Menon LPN Last saw pcp: 08/22/24 Subjective: Patient presents [...] RTC in 3-4 months. Yudy Benoit DPM Patient presents with: Left Foot - Established Patient, Follow Up, Diabetic Foot Care Right Foot - Established Patient, Follow Up, Diabetic Foot Care Patient presents for follow up diabetic foot/nail care. Left leg swelling. Currently in [facility] and nonambulatory. In wheelchair at this time. CAITLYN 09/07/24 documented in this encounter [facility] 12-12-2024 Instructions Yudy Benoit - 12/12/2024 10:47 AM EDT Diabetes Foot Care Instructions When you have [...] or sore from your shoes, do not "pop" it. Apply a bandage and wear a different pair of shoes. Take Care of Your Toenails Cut toenails after bathing, when they are soft. Cut toenails straight across and smooth with a nail file. Avoid cutting into the corners of toes. Do not cut cuticles. If you have neuropathy (or decreased sensation in your feet) a cell maker should always cut your toenails. Be Careful [...] your shoes are too tight. Perform the "footwear test" described below. Footwear Test Use this simple [...] Go to your health care provider or cell maker to treat these conditions. documented in this encounter [facility] 12-12-2024 Note HNO ID: [id number] Author: YUDY BENOIT, ? Service: ? Author [...] RTC in 3-4 months. Yudy Benoit DPM [facility] 12-12-2024 Note HNO ID: [id number] Author: JUDIE DEWEY RN Service: ? Author Type: Registered Nurse Type: Progress Notes Filed: 12/12/2024 10:48 Note Text: Patient presents with: Left Foot - Established Patient, Follow Up, Diabetic Foot Care Right Foot - Established Patient, Follow Up, Diabetic Foot Care Patient presents for follow up diabetic foot/nail care. Left leg swelling. Currently in [facility] and nonambulatory. In wheelchair at this time. CAITLYN 09/07/24 [facility] 11-13-2024 Telephone encount er Note Pharmacy faxed requesting the following refill Refill(s) Requested: Requested Prescriptions Pending Prescriptions Disp Refills finasteride (PROSCAR) 5 mg tablet [Pharmacy Med Name: FINASTERIDE 5 MG TABLET] 90 tablet 1 Sig: TAKE 1 TABLET BY MOUTH EVERY DAY ALLERGIES Allergen Reactions Lipitor [Atorvastat* Other: See Comments body aches (home) [phone] (cell) Last Office Visit Date: 08/22/2024 Last Distance Health Visit: Visit date not found Future Appointment: 11/24/2024 The patients preferred pharmacy has been captured for this encounter? yes Request is for script(s) to be escript to pharmacy. Judie Garrido MA [facility] 11-13-2024 Miscellaneous Notes Formattin g of this note is different from the original. Pharmacy faxed requesting the following refill Refill(s) Requested: Requested Prescriptions Pending Prescriptions Disp Refills finasteride (PROSCAR) 5 mg tablet [Pharmacy Med Name: FINASTERIDE 5 MG TABLET] 90 tablet 1 Sig: TAKE 1 TABLET BY MOUTH EVERY DAY ALLERGIES Allergen Reactions Lipitor [Atorvastat* Other: See Comments body aches (home) [phone] (cell) Last Office Visit Date: 08/22/2024 Last [facility] Visit: Visit date not found Future Appointment: 11/24/2024 The patients preferred pharmacy has been captured for this encounter? yes Request is for script(s) to be escript to pharmacy. Judie Garrido MA documented in this encounter [facility] 11-13-2024 Telephone encount er Note Called patient. His daughter, Elidia, answered phone. Verified name and date of of patient. Elidia states patient is in a [facility], [facility], after having a urinary tract infection and [...] the Care Center know. Erin Osborne LPN [facility] 11-13-2024 Miscellaneous Notes Formattin g of this note might be different from the original. Called patient. His daughter, Elidia, answered phone. Verified name and date of of patient. Elidia states patient is in a [facility], [facility], after having a urinary tract infection and [...] the Care Center know. Erin Osborne LPN documented in this encounter [facility] 11-08-2024 Telephone encount er Note Pharmacy faxed requesting the following refill Refill(s) Requested: Requested Prescriptions Pending Prescriptions Disp Refills ergocalciferol 50,000 unit capsule (VITAMIN D2, DRISDOL) [Pharmacy Med Name: VITAMIN D2 1.25MG(50,000 UNIT)] 12 capsule 0 Sig: TAKE 1 CAPSULE BY MOUTH ONE TIME A WEEK. ALLERGIES Allergen Reactions Lipitor [Atorvastat* Other: See Comments body aches (home) [phone] (cell) Last Office Visit Date: 08/22/2024 Last Distance Health Visit: Visit date not found Future Appointment: 11/24/2024 The patients preferred pharmacy has been captured for this encounter? yes Request is for script(s) to be escript to pharmacy. Luis Nicholson LPN [facility] 11-08-2024 Miscellaneous Notes Formattin g of this note is different from the original. Pharmacy faxed requesting the following refill Refill(s) Requested: Requested Prescriptions Pending Prescriptions Disp Refills ergocalciferol 50,000 unit capsule (VITAMIN D2, DRISDOL) [Pharmacy Med Name: VITAMIN D2 1.25MG(50,000 UNIT)] 12 capsule 0 Sig: TAKE 1 CAPSULE BY MOUTH ONE TIME A WEEK. ALLERGIES Allergen Reactions Lipitor [Atorvastat* Other: See Comments body aches (home) [phone] (cell) Last Office Visit Date: 08/22/2024 Last Distance Health Visit: Visit date not found Future Appointment: 11/24/2024 The patients preferred pharmacy has been captured for this encounter? yes Request is for script(s) to be escript to pharmacy. Luis Nicholson LPN documented in this encounter [facility] 10-31-2024 Note HNO ID: [id number] Author: BEATRIS FERRO RN Service: ? Author Type: Registered Nurse Type: Progress Notes Filed: 10/31/2024 07:53 Note Text: TRANSITION CARE MANAGEMENT (TCM) DISCHARGE TO POST ACUTE FACILITY POST ACUTE TRANSFER SUMMARY: -Pt discharged from [facility] on 10/30/2024. -Post Acute Facility Admitted to [facility] -Admitted for: Metabolic encephalopathy Office PCC will follow at discharge. Beatris Ferro RN October 31, 2024 [facility] 10-31-2024 History of Presen t illness Narrative TRANSITION CARE MANAGEMENT (TCM) DISCHARGE TO POST ACUTE FACILITY POST ACUTE TRANSFER SUMMARY: -Pt discharged from [facility] on 10/30/2024. -Post Acute Facility Admitted to [facility] -Admitted for: Metabolic encephalopathy Office PCC will follow at discharge. Beatris Ferro RN October 31, 2024 documented in this encounter [facility] 10-31-2024 Note Patient Outreach (AG ACM) EMELIA JOHNSON ([id number]) 1950 Date Time Provider Department 10/31/24 BEATRIS FERRO [facility] During your visit today, we recorded the following information about you: Beatris Ferro RN 10/31/2024 7:53 AM Signed TRANSITION CARE MANAGEMENT (TCM) DISCHARGE TO POST ACUTE FACILITY POST ACUTE TRANSFER SUMMARY: -Pt discharged from [facility] on 10/30/2024. -Post Acute Facility Admitted to [facility] -Admitted for: Metabolic encephalopathy Office PCC will follow at discharge. Beatris Ferro RN October 31, 2024 Allergies As of Date: 10/31/2024 Noted Allergy Reaction LIPITOR (ATORVASTATIN) 11/17/2013 14 - Other: See Comments Comments: body aches Date Reviewed: 10/30/2024 Reviewed by: Rocio Mendosa RN - Fully Assessed Reason for Visit: Transition Of Care [4074] Cmt: [facility] Discharge to [facility] Prescriptions as of 10/31/2024 - levothyroxine (SYNTHROID) 175 mcg tablet Take 1 tablet by mouth daily before breakfast. - rosuvastatin (CRESTOR) 10 mg tablet Take 1 tablet by mouth daily at bedtime. - ferrous sulfate 325 mg (65 mg iron) tablet Take 1 tablet by mouth every other day. - myralrnxocp-uhqkylkwm-rmzolmuw (TRELEGY ELLIPTA) 100-62.5-25 mcg inhalation powder Inhale [...] aortic aneurysm (TAAA) without*11/21/2013 02/08/2020 Atherosclerosis of twenty-nine palms artery of extremity w*11/21/2013 Other hyperlipidemia [E78.49] Unspecified hypothyroidism [E03.9] Smoker [F17.200] 01/27/2015 Chronic ischemic right MCA stroke [Z86.73] 02/08/2020 CAD (coronary artery disease), twenty-nine palms coronary *12/27/2013 Postprocedural hypotension [I95.81] 12/27/2013 09/25/2020 [...] with [facility]*10/13/2020 Acute metabolic encephalopathy [G93.41] 10/27/2024 Encoun (more content not included)... [facility] 10-30-2024 Note HNO ID: [id number] Author: DASHAWN GARCIA RN Service: Care Management Author Type: Registered Nurse Type: Care Mgt Progress Note Filed: 10/30/2024 15:39 Note Text: CARE MANAGEMENT DISCHARGE NOTE SERVICE DATE: October 30, 2024 SERVICE TIME: 3:37 PM Admission Date: 10/27/2024 LOS: 3 days Discharge Arrangement Discharge Arrangement: [facility] Was an expedited discharge program used?: No Services Arranged SNF Placement Provider Name: [facility] Caregiver Assessment Caregiver is ready, willing and able to meet the patient's needs as recommended by the inter-professional team: Yes Name of Caregiver: [facility] Transportation Arrangements Transportation Arrangements: Ambulance Transportation Agency and Phone #:: [facility] [phone] Date of Trip: 10/30/24 Time of Trip: 2360 Type of Service: BLS Non-emergency Is Patient Medicaid Pending?: No Was transportation financial coverage discussed with family?: 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 Location: [place] Destination: SNF Financial Care Management Responsibility: None Handoff Communication: Handoff to: Primary Care Physician Primary Care Physician Name/Phone: Jenae Santamaria MD SOC sent Additional Information: Per MD patient is medically ready for DC today Patient will dc to [facility] updated with time and orders Per request of daughter MMT set for 3:30, aware of any potential costs associated with transportation escort provided number to call report CM updated daughter via phone and patient at bedside SIGNATURE: Dashawn Garcia RN PATIENT NAME: Emelia Johnson DATE: October 30, 2024 TIME: 3:37 PM [facility] 10-30-2024 Note HNO ID: [id number] Author: DASHAWN GARCIA RN Service: Care Management Author Type: Registered Nurse Type: Care Mgt Progress Note Filed: 10/30/2024 12:07 Note Text: CARE MANAGEMENT PROGRESS NOTE SERVICE DATE: 10/30/2024 SERVICE TIME: 12:07 PM LOS: 3 days IMM Follow Up Copy Given: Yes Copy given to:: Patient Copy Center Operator Copy Center Operator Name/Relationship: Elidiafreedom Cabral (JEANNA) Method: By Phone CM confirmed with MD plan for DC today Patient and daughter agreeable with dc to [facility] updated SIGNATURE: Dashawn Garcia RN PATIENT NAME: Emelia Johnson DATE: October 30, 2024 TIME: 12:06 PM [facility] 10-29-2024 Note HNO ID: [id number] Author: DENITA SHEPARD MD Service: Hospital Medicine Author Type: Physician Type: Progress Notes Filed: 10/29/2024 14:52 Note Text: DEPARTMENT OF HOSPITAL MEDICINE PROGRESS NOTE SERVICE DATE: 10/29/2024 SERVICE TIME: 2:48 PM Hospital Medicine/Primary Attending: Denita Shepard,* NIGHT AND WEEKEND COVERAGE: [place] COVERAGE: Days: [phone], please page attending physician. Nights: [phone], please page [place] Hospitalist Night coverage pager [phone]. Subjective INTERVAL HPI: Seen and examined. Patient [...] (Src) 97.7 (Axillary) Resp 16 Ht 5' 7" (1.70m) Wt 180 lb 1.9 oz (81.7kg) SpO2 91% BMI 28.20 kg/(m2). O2 Therapy: Room Air Physical Exam Performed Elderly male Sleeping CV RRR Lungs poor inspiratory effort Abdomen soft, colostomy Left leg lymphedema Maddox catheter Lines, Drains, and Airways Line Duration Peripheral 10/28/24 1159 [facility] Right Forearm 22 Gauge 1 day Drain Duration Surgically Inserted Drain 10/27/24 1541 External Facility Suprapubic Right Lower Quadrant;Anterior Pelvic 1 day Reviewed lines and needs to be continued: REASONS: IV heparin DATA: Diagnostic tests reviewed for today's visit: Most recent imaging CBC, Coags, BMP, Mg, Phos Recent Labs 10/29/24 0821 10/29/24 0256 10/28/24 2055 10/28/24 1418 10/28/24 0734 10/27/24 2338 10/27/24 [...] stroke involving right carotid artery ([facility]) BPH (benign prostatic hyperplasia) CKD (chronic kidney disease) stage 3, GFR 30-59 ml/min ([facility]) 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der, with long-term current use of insulin ([facility]) History of right-sided carotid endarterectomy History of CVA (cerebrovascular accident) 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[facility]) HOSPITAL COURSE: Emelia Johnson is a 74 [...] left lower extremity chronic venous congestion. More th (more content not included)... [facility] 10-29-2024 Note HNO ID: [id number] Author: JADEN VANESSA MD Service: Vascular Surgery [...] note to follow. - Jaden Vanessa MD [facility] 10-28-2024 Note HNO ID: [id number] Author: DENITA SHEPARD MD Service: Hospital Medicine Author Type: Physician Type: Progress Notes Filed: 10/28/2024 15:57 Note Text: DEPARTMENT OF HOSPITAL MEDICINE PROGRESS NOTE SERVICE DATE: 10/28/2024 SERVICE TIME: 3:38 PM Hospital Medicine/Primary Attending: Denita Shepard,* NIGHT AND WEEKEND COVERAGE: [place] COVERAGE: Days: [phone], please page attending physician. Nights: [phone], please page [place] Hospitalist Night coverage pager [phone]. Subjective INTERVAL HPI: Seen and examined. Patient [...] (Src) 98 (Axillary) Resp 18 Ht 5' 7" (1.70m) Wt 180 lb 1.9 oz (81.7kg) SpO2 94% BMI 28.20 kg/(m2). O2 Therapy: Room Air Physical Exam Performed Elderly male Alert CV RRR Lungs clear upper [place], poor inspiratory effort Abdomen soft, colostomy Left leg lymphedema Maddox catheter Lines, Drains, and Airways Line Duration Peripheral 10/28/24 1159 [facility] Right Forearm 22 Gauge <1 day Drain [...] stroke involving right carotid artery ([facility]) BPH (benign prostatic hyperplasia) CKD (chronic kidney disease) stage 3, GFR 30-59 ml/min ([facility]) 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der, with long-term current use of insulin ([facility]) History of right-sided carotid endarterectomy History of CVA (cerebrovascular accident) 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[facility]) HOSPITAL COURSE: Emelia Johnson is a 74 [...] upper abdominal aorta compared to 07/03/2024. Left profundofe (more content not included)... [facility] 10-28-2024 Note HNO ID: [id number] Author: DENITA SHEPARD MD Service: Care Management [...] disease) stage 3, GFR 30-59 ml/min (HCC) 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der, with long-term current use of insulin (HCC) History of right-sided carotid endarterectomy History of CVA (cerebrovascular accident) 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[facility]) Resolved Problems: * No resolved hospital problems. * Attending Physician: Denita Shepard,* SIGNATURE: Myriam Cole RN PATIENT NAME: Emelia Johnson DATE: October 28, 2024 TIME: 1:53 PM [facility] 10-28-2024 Note HNO ID: [id number] Author: MYRIAM COLE RN Service: Care Management Author Type: Registered Nurse Type: Care Mgt Initial Assessment Filed: 10/28/2024 13:52 Note Text: CARE MANAGEMENT: ASSESSMENT AND DISCHARGE PLAN SERVICE DATE: October 28, 2024 SERVICE TIME: 9:42 AM PCP: Jenae Santamaria MD Primary Contact: Extended Emergency Contact Information Primary Emergency Contact: Elidia Cabral Mobile Relation: Daughter Project Production Engineer needed? No Secondary Emergency Contact: Dm Johnson Mobile Relation: Son Admission Status: Inpatient Insurance Provider: MEDICARE A AND B Discharge Planning requested by: Per Department Practice Potential Transition Plans Prison Facility/Intermediate Care Facility Advance Directives Current Advance Directive: Health Care Power of Pulverizing And Sifting Operator In Chart: No Meat Scrubber Attempted to Assist with AD Completion: No [...] Care Discharge Planning Patient Goal(s): General wellness [place] of Choice Explained: [place] of Choice Given: Yes Level of Care Discussed: Prison Facility Are you interested in bedside delivery [...] been very difficult to care for, he "does not get up" and does not walk very well. Someone in the background during the conversation was yelling "he cannot come home". Elidia states they would like the patient to go to [facility] at discharge- Referral placed. Elidia states the patient is active with [facility] for nursing-Referral placed. CM department will continue to follow for DC needs. 1:51 pm- [facility] able to accept. Call placed to the patients daughter Elidia, message left on her VM updating her that [facility] will have a bed available for the patient at discharge. SIGNATURE: Myriam Cole RN PATIENT NAME: Emelia Johnson DATE: October 28, 2024 TIME: 9:42 AM [facility] 09-27-2024 Radiology Diagnostic study note [facility] Work Phone: 09-27-2024 Radiology Diagnostic study note [facility] 09-27-2024 Discharge summary Note Date/Time September 27, 2024 4:06pm [facility] Medical Records Department [address] [place] [address] Emergency Department Summary 09/27/24 MR#: [id number] Acct: [id number] Name: EMELIA JOHNSON Rep #:[id number] : 1950 74 From: John Michele MD PCP: Shrai Hurd MD Status:REG ER Location: ED HPI History of Present Illness Chief Complaint: Edema Narrative Narrative: 74-year-old male with past medical history of colon cancer with ostomy, chronic indwelling Maddox catheter, presents with scrotal swelling since yesterday. He relates history that he has had chronic left lower extremity swelling for years. He is easily ambulatory with a walker. He noticed that his scrotum was swollensince yesterday. He denies any fevers or chills, no difficulty urinating, no difficulty breathing. His home health nurse sent him in because of the scrotal swelling. He denies history of congestive heart failure. No exacerbating or alleviating factors. [facility] Medical History Peripheral arterial disease with history of revascularization MRSA (methicillin resistant staph aureus) culture positive Wears glasses Low iron Stroke/cerebrovascular accident Former smoker Colostomy in place Family history of abdominal aortic aneurysm repair DVT (deep venous thrombosis) Enteritis Cholelithiasis Acidosis, lactic Encephalopathy due to infection Acute hypoxemic respiratory failure Complicated urinary tract infection Severe sepsis with acute organ dysfunction Aspiration into respiratory tract FIOR (acute kidney injury) Colon cancer Home Medications ?Medication ?Instructions ?Recorded ?Last Taken ?Type finasteride 5 mg tablet 5 mg PO DAILY prostate 06/2106/30/24 History pantoprazole 40 mg tablet,delayed 40 mg PO BID stomach #60 tabs 01/15/24 06/30/24 Rx release fluticasone fur. 100 mcg-umeclid 1 ea inhalation DAILY respiratory 07/01/24 06/30/24 History 62.5 mcg-vilant 25 mcg inhalat.powder (Trelegy Ellipta) icosapent ethyl 1 gram capsule 1 g PO BID hypertriglyc eridemia 07/01/24 06/30/24 History linagliptin 5 mg tablet (Tradjenta) 5 mg PO DAILY dm ckd 07/01/24 06/30/24 History rosuvastatin 20 mg tablet 20 mg PO QHS cholesterol 08/2006/30/24 History insulin lispro 100 unit/mL See Protocol subcut ACHS #0 mL 07/20/24 Unknown Rx subcutaneous pen (Humalog KwikPen (U-100) Insulin) amlodipine 5 mg tablet 5 mg PO DAILY 09/27/24 Unkno wn History ergocalciferol (vitamin D2) 1,250 1,250 mcg PO QWEEK 0 09/27/24 Unknown History mcg (50,000 unit) capsule levothyroxine 200 mcg tablet 200 mcg PO DAILY 09/27/24 Unknown History loratadine 10 mg tablet 10 mg PO DAILY 09/27/24 Unkn own History sulfamethoxazole 800 1 tab PO BID 09/27/24 Unknow n History mg-trimethoprim 160 mg tablet sulfamethoxazole 800 1 tab PO DAILY 7 days #7 tab s 09/27/24 Unknown Rx mg-trimethoprim 160 mg tablet (Bactrim DS) Allergy/AdvReac Type Severity Reaction Status Date / Time No Known Allergies Allergy Verified 09/27/24 11:49 Surgical History H/O esophagogastroduodenoscopy Hx of abdominal surgery Hx of endarterectomy (~2020) Social History Smoking Status: Former smoker Tobacco: How many years used: 50 second hand exposure: No alcohol intake: never substance use type: does not use ROS ROS ED ROS Narrative Review of systems positive for scrotal swelling. Chronic left lower extremity swelling. No dysuria but has chronic indwelling Maddox catheter. No abdominal pain. No fevers or chills, no cough, no shortness of breath, no other symptoms. EXAM Physical Exam Narrative Exam Narrative: Afebrile. Vital signs noted. Nontoxic-appearing. Cardiovascular examination regular rate and rhythm. Lungs clear to auscultation bilaterally. Abdomen soft, nontender, without guarding or rebound. Visual inspection of the scrotum and chaperoned examination reveals positive swelling of the scrotum. No testicular tenderness. Positive swelling of left lower extremity, chronic with lymphedematous changes. Awake, alert, interactive, appropriate. Const Vital Signs: 09/27/24 11:46 09/27/24 12:27 09/27/24 13:45 Temperature 97.8 F Temperature Source Oral Pulse Rate 94 92 Respiratory Rate 16 16 Respiratory Effort Normal Non-Labored Respiratory Pattern Normal Blood Pressure 138/79 H Blood Pressure Mean 98 Pulse Ox 97 96 Oxygen Delivery Method Room Air 09/27/24 15:00 Temperature Temperature Source Pulse Rate 93 Respiratory Rate 23 H Respiratory Effort Respiratory Pattern Blood Pressure Blood Pressure Mean Pulse Ox 92 Oxygen Delivery Method MDM MDM MDM Narrative Medical decision making narrative: Differential diagnosis for scrotal swelling includes but not limited to hydrocele versus varicocele versus congestive heart failure. I did review his prior echocardiogram from 2023 and he had an ejection fraction of 55 to 60%. Laboratory work was obtained and reviewed today, normal white count of 7.2 with hemoglobin 13.1, hematocrit 42.7, platelet count low at 86. When compared to prior laboratories, he does have chronic thrombocytopenia. I do not feel he needs a platelet transfusion currently. CMP shows normal sodium 139 with potassium 4.2, normal anion gap of 12, BUN of 11 and creatinine slightly elevated at 1.76. Compared to prior labs, he does have chronic kidney disease. LFTs are grossly unremarkable. BNP is elevated at 2140. He is not on Lasix or diuretic. Ultrasound of the scrotum was obtained as well as CT of the abdomen and pelvis. I reviewed the radiology report of the ultrasound of the scrotum and there is noevidence of torsion, there is no hydrocele or varicocele, but they state that hehas extensive scrotal wall edema. 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 He has chronic interstitial lung disease. I discussed patient with the [facility] for vascular surgery who is familiar with the patient. Patient was seen and had scrotal edema previously, and he is not on ananticoagulant because he had an acute GI bleeding. He is due to see them in theoffice later this month as he had covered stenting performed which slightly improved his chronic edema, but did not resolve it completely. Patient stated that it was the vascular surgeon who told him to not be on a diuretic any longer. I will give him 1 dose of Lasix here but feel that prolonged diuretic should be managed by his primary care provider as he has history of chronic kidney disease. I also reviewed his urinalysis and he does have leukocyte esterase with microanalysis pending. He feels he has a urinary tract infection. His previousmicroanalysis was sensitive to Bactrim, and he also had MRSA of his urine which was also sensitive to Bactrim. Upon review of his microanalysis today, he does have 50-100 RBCs and greater than 100 WBCs. He was treated with Bactrim DS and prescription written for the next week. I discussed possible observation earlier with the patient, and he states he is doing well at home and prefers discharge. I feel he can be discharged to follow-up with his primary care provider in the vascular surgeon. Return instructions reviewed. Disposition isdischarged home in stable condition. History & Record Review Discussion w/independent historian: Patient Additional record(s) reviewed:: Prior ED visit and Prior labs Lab Data Attestation: I reviewed the patient's lab results. Labs: Laboratory Results - last 24 hr 09/27/24 09/27/24 12:52 14:30 WBC 7.2 RBC 4.68 Hgb 13.1 Hct 42.7 MCV 91.2 MCH 28.0 MCHC 30.7 L RDW Std Deviation 51.9 H RDW Coeff of Yanira 15.8 H Plt Count 86 L MPV 12.6 H Immature Gran % (Auto) 0.600 Neut % (Auto) 66.4 Lymph % (Auto) 21.9 [place] % (Auto) 7.6 Eos % (Auto) 2.8 Baso % (Auto) 0.7 Absolute Neuts (auto) 4.8 Absolute Lymphs (auto) 1.58 Nucleated RBC % 0 Differential Comment SCANNED Sodium 139 Potassium 4.2 Chloride 104 Carbon Dioxide 23.6 Anion Gap 12 BUN 11 Creatinine 1.76 H Estim Creat Clear Calc 39.05 L Est GFR (MDRD) Non-Af 40 L BUN/Creatinine Ratio 6.3 L Glucose 94 Calcium 9.2 Total Bilirubin 0.36 AST 30 ALT 14 Alkaline Phosphatase 99 NT pro BNP II 2140 H Total Protein 7.2 Albumin 3.7 Globulin 3.5 Albumin/Globulin Ratio 1.0 Urine Color Yellow Urine Clarity Cloudy Urine pH 7.0 Ur Specific [place] 1.010 Urine Protein 100 H Urine Glucose (UA) Normal Urine Ketones Negative Urine Occult Blood 250 H Urine Nitrite Negative Urine Bilirubin Negative Urine Urobilinogen Normal Ur Leukocyte Esterase 500 H Urine RBC 50-100 SEEN Urine WBC >100 SEEN Ur Squamous Epith Cells 0-5 SEEN Ur Transition Epith Cell 0-5 SEEN Triple Phos Crystals RARE Amorphous Sediment 2+ Urine Bacteria 2+ Urine Mucus 0 SEEN Radiography Diagnostic Testing: Clinical Impression(s) from Imaging Studies Abdomen/Pelvis CT 09/27/24 12:47 IMPRESSION: 1. Status post distal colectomy and left lower quadrant colostomy. 2. Chronic interstitial lung disease. 3. Cholelithiasis. 4. Severe atherosclerotic vascular disease with aorto bi iliac bypass graft as described. 5. There is chronic swelling of the left lower extremity due to vascular abnormality. 6. There is marked swelling of the scrotum some of the site. 7. Other findings as noted. Note: I spoke with the referring physician in the [facility] emergency department on 09/27/2024 at 3:10 p.m. Reading Location: [id number] Testicular Ultrasound 09/27/24 13:02 IMPRESSION: Extensive edema of the scrotal wall. No testicular torsion at this time. Reading Location: [id number] Discharge Plan Triage Chief Complaint: Edema ED Provider: John Michele Dx/Rx/DC Orders Clinical Impression: Scrotal edema, Leg edema, left, Femoral arteriovenous fistula, left, Catheter-associated urinary tract infection Instructions: ED Lymphedema, ED Bladder Infection, Male (Adult) Prescriptions: New sulfamethoxazole-trimethoprim [Bactrim DS] 800-160 mg tablet 1 tab PO DAILY 7 Days Qty: 7 0RF No Action finasteride 5 mg tablet 5 mg PO DAILY insulin lispro [Humalog KwikPen Insulin] 100 unit/mL Insulin Pen See Protocol subcut ACHS Qty: 0 0RF Protocol: 3. Sliding Scale Insulin Med Dosing Condition: 150-189 mg/dl = 1 unit Condition: 190-229 mg/dl = 2 units Condition: 230-269 mg/dl = 3 units Condition: 270-309 mg/dl = 4 units Condition: 310-349 mg/dl = 5 units Condition: 350-399 mg/dl = 6 units Condition: 400-449 mg/dl = 7 units Condition: Greater than 449 call physician Protocol Text: Suggested for: - Patients on Total Daily Insulin Dose of 37-55 units - Obese, infected, or steroid patients MEDIUM DOSING ALGORITHIM amlodipine 5 mg tablet 5 mg PO DAILY sulfamethoxazole-trimethoprim 800-160 mg tablet 1 tab PO BID levothyroxine 200 mcg tablet 200 mcg PO DAILY ergocalciferol (vitamin D2) 1,250 mcg (50,000 unit) capsule 1,250 mcg PO QWEEK loratadine 10 mg tablet 10 mg PO DAILY pantoprazole 40 mg tablet,delayed release (DR/EC) 40 mg PO BID Qty: 60 2RF Trelegy Ellipta 100-62.5-25 mcg blister with device 1 ea inhalation DAILY rosuvastatin 20 mg tablet 20 mg PO QHS Tradjenta 5 mg tablet 5 mg PO DAILY icosapent ethyl 1 gram capsule 1 g PO BID Primary Care Provider: Shari Hurd Referrals: Efraín Thompson MD [Med Staff - Active Staff] - Keep Briseyda appointment Shari Hurd MD [Primary Care Provider] - 3-5 Days Activity Restrictions/Additional Instructions: Antibiotics as directed. Follow-up with your primary care provider and vascularsurgeon. The swelling of your scrotum may be related to the chronic swelling ofyour left leg and the vascular abnormality. Return with fever, new or worseningsymptoms. Print Language: Welsh Disposition Disposition: Home, Self Care What to do if you have Problems For any increased pain, shortness of breath, bleeding, nausea or vomiting, chestpain, or any unexpected problems, contact your Primary Care Provider. Call [employer] [facility] ([phone]) or report to the closest Emergency Room. Call 911 if necessary. 09/27/24 1606 <Electronically signed by John Michele MD> Cosigner Signature (if applicable): CC: Shari Hurd MD ~ Signed [facility] Work Phone: 1(223) 570-166106-27-2025 Telephone encounter Note* Telephone Encounter - Jenae Santamaria MD - 09/22/2024 5:54 PM EDT I called patient to ask patient about UTI symptoms. Per son, patient's urine has been more foul smelling and urine obtained from straight cath. Sent abx to patient's pharmacy based on urine clx results Jenae Santamaria MD [facility]06-27-2025 Miscellaneous Notes* Telephone Encounter - Jenae Santamaria MD - 09/22/2024 5:54 PM EDT I called patient to ask patient about UTI symptoms. Per son, patient's urine has been more foul smelling and urine obtained from straight cath. Sent abx to patient's pharmacy based on urine clx results Jenae Santamaria MD [facility] Progress note* Result Encounter Note - Jenae Santamaria MD - 09/20/2024 6:17 PM EDT Please call to update that urine concerning for UTI. Please see if patient has symptoms. Also, please ask that patient send another sample to get urine culture as the lab done did not reflex to culture. Jenae Santamaria MD [facility]06-25-2025 Miscellaneous Notes* Result Encounter Note - Jenae Santamaria MD - 09/20/2024 6:17 PM EDT Please call to update that urine concerning for UTI. Please see if patient has symptoms. Also, please ask that patient send another sample to get urine culture as the lab done did not reflex to culture. Jenae Santamaria MD [facility] Telephone encounter Note * Telephone Encounter - Erin Osborne LPN - 09/18/2024 4:49 PM EDT Called patient. Verified name and date of . Patient reports appointment tomorrow follow up from [facility] with multiple visits but is unable to make appointment due to transportation person sick. Offered to reschedule appointment but states they will call once they know schedule of transportation person. Erin Osborne LPN [facility]06-23-2025 Miscellaneous Notes* Telephone Encounter - Erin Osborne LPN - 09/18/2024 4:49 PM EDT Called patient. Verified name and date of . Patient reports appointment tomorrow follow up from [facility] with multiple visits but is unable to make appointment due to transportation person sick. Offered to reschedule appointment but states they will call once they know schedule of transportation person. Erin Osborne LPN documented in [facility] encounter[facility]06-[facility]-2025 NoteHNO ID: [id number] Author: BRIAN CUMMINGS MD Service: ? Author [...] diagnosed in 2019. He received treatment in [facility]. He has multiple comorbidities including CVA requiring [...] vs abdominoperineal resection. Patient was seen at [facility] by Dr. Gordon Martinez. 08/09/2020 MRI Rectum- [...] rupture Aneurysm - Abdominal Aorta Atherosclerosis of [place]nine palms arteries of the extremities with intermittent claudication ASO - Extremities AND Claudicati (more content not included)...[facility]06-20-2025 History of Present illness Narrative* Brian Cummings MD - 09/15/2024 11:06 AM EDT Emelia Johnson 1950 September 15, 2024 Diagnosis: [...] presents today to establish oncology care for historyof stage IIA rectal cancer, diagnosed in 2019. He received treatment in [facility]. He has multiple comorbidities including CVA requiring [...] There is no evidence of local penelope spreador distant metastatic malignancy. 2. Severe left renal [...] to resect the mass transanally nor with theTamis port. Patient was therefore discussed regarding the role of low-anterior resection vs abdominoperineal resection. Patient was seen at [facility] by Dr. Gordon Martinez. 08/09/2020 MRI Rectum- [...] history of rectal cancer. He was last seen05/27/2023. He is accompanied by his son today. He was admitted 07/01/2024 to 07/07/2024 for urosepsis Worsening LLE swelling with venous duplex negative for DVT. Blood cultures were negative but urine culture grew MRSA. He underwent arch aortogram with angioplasty and stent placement of L profundofemoral artery on 07/06/2024. EGD on 07/04/2024 showedsevere erosive esophagitis. He was admitted 07/13/2024 to 07/20/2024 due to GI bleeding. No unintentional weight loss, fever, headache, chest pain, shortness of breath, nausea, vomiting, abdominal pain. PAST MEDICAL HISTORY Diagnosis Date Abdominal aneurysm without mention of rupture Aneurysm - Abdominal Aorta Atherosclerosis of twenty-nine palms arteries of the extremities with intermittent claudication ASO - Extremities & Claudication CAD (coronary artery disease) Coronary artery [...] circulatory complication, with long-term current use of insulin(HCC) Unspecified hemorrhoids without mention of complication Hemorrhoids [...] mouth daily at bedtime. 90 tablet 1 vcfzwtnsvfu-qzrtunsmu-wvlduaya (TRELEGY ELLIPTA) 100-62.5-25 mcg inhalation powder Inhale 1 puff asinstructed once daily. 60 each 5 linaGLIPtin (TRADJENTA) [...] SPRAY INTO EACH NOSTRIL AT BEDTIME 48 mL1 Blood Pressure Test Kit-Large (CLEVER CHOICE BP MONITOR) 1 Each two times a day. 1 Each 0 flash glucose sensor (FREESTYLE HEMA 14 DAY SENSOR) kit 1 Each four times daily. 1 Kit 2 Fenofibrate 160 mg tablet Take 1 tablet by mouth once daily. 0 iv contrast (will be provided with radiology test) CT Chest ABD/PEL-Inject, intravenously, once for1 dose.No IV access, insert saline lock prior to the beginning of sedation, infusion, injection of imaging exam. Discontinue saline lock post exam. If Pt. has a central line or IVAD, may access for administration according to line specific nursing protocol. Once exam is complete flush line and de-access according to line specific nursing protocol in the CT contrast administration guidelines link.1 each 0 enteric contrast (will be provided with radiology test) For CT CHESTABD/PEL W IVCON Routine order Administer, As Directed One Time Only, via Oral, Rectal, both Oral and Rectal, Enteric Tube, Stoma orIndwelling Catheter, Enteric Contrast as designated per enteric [...] ( age 88) Stroke Mother Diabetes Sister "Brain " ( age 64) Diabetes Brother other (Old [...] 1107 BP: 125/70 Pulse: 61 Temp: 36.9 C (98.4 F) TempSrc: Tympanic SpO2: 95% Height: 170.2 cm (5' 7") Body mass index is 27.88 kg/m . Physical Exam: ECOG PS: 2-3 General: Chronically [...] on 08/22/24. Schedule surveillance CT scans at [place]. - Discussed cancer survivorship care planning. 2. CKD stage 3. - Mildly elevated total protein. - SPEP and MPA on 06/08/2023 showed no M protein, mildly elevated kappa and lambda free light chainswith normal K/L ratio. 3. History of GI [...] Medical Decision Making Level: 4 - Moderate documented in [facility] encounter[facility]25 Telephone encounter Note * Telephone Encounter - Judie Garrido MA - 09/08/2024 9:57 AM EDT 92-93 has been pts ox, nurse states it is hard to get a good reading on him he has cold hands, no trouble breathing no fevers, states nurse will tell son about getting chest xray done [facility]06-13-2025 Miscellaneous Notes* Telephone Encounter - Judie Garrido MA - 09/08/2024 9:57 AM EDT 92-93 has been pts ox, nurse states it is hard to get a good reading on him he has cold hands, no trouble breathing no fevers, states nurse will tell son about getting chest xray done * Telephone Encounter - Jenae Santamaria MD - 09/06/2024 5:01 PM EDT Will order chest x-ray. Does patient have good SpO2 or fevers, chills or trouble breathing? Jenae Santamaria MD * Telephone Encounter - Judie Garrido MA - 09/06/2024 4:11 PM EDT Nurse from [facility] called david [phone], calling to report she did hear some crackles in pt's left lower lobe in the lungs, pt does have some gargling and states pt does not sit up well when taking a drink, but reports no cough asking if you want a chest xray or an antibiotic Please advise documented in this encounterU[facility] Center06-12-2025 NoteHNO ID: [id number] Author: YUDY BENOIT, ? Service: ? Author [...] is to RTC in 3-4 months. Yudy Kaycee [facility]06-12-2025 History of Present illness Narrative* Yudy Benoit - 09/07/2024 9:55 AM EDT Last saw pcp: 08/22/24 Subjective: Patient presents to clinic c/o painful toenails. They state that the nails are especially painful with shoe gear and pressure. Patient presents with son who is concerned about the appearance of left foot and leg. Patient admits to being diabetic and states that their blood sugar was 138mg/dL this AM. No other pedal complaints at [...] diabetic foot care along with proper diet andkeeping their blood sugar under control to prevent complications. I stressed the importance of avoiding barefoot walking, wearing good shoes and inspection of feet. Patient is to RTC in 3-4 months. Yudy Benoit DPM * Meaghan Miller MA - 09/07/2024 9:35 AM EDT Patient presents with: Left Foot - Nail care Right Foot - Nail care: Diabetic foot exam AMB ROOMING INTAKE FLOWSHEET DATA Patient denies any pain today. Patient's left foot is very swollen and reddened. Son with patient today. Blood sugar was 138 on Wednesday. documented in this encounterUc [facility] Center06-12-2025 NoteHNO ID: [id number] Author: MEAGHAN MILLER MA Service: ? Author Type: Owner Spa Director Type: Progress Notes Filed: 09/07/2024 12:42 Note Text: Patient presents with: Left Foot - Nail care Right Foot - Nail care: Diabetic foot exam AMB ROOMING INTAKE FLOWSHEET DATA Patient denies any pain today. Patient's left foot is very swollen and reddened. Son with patient today. Blood sugar was 138 on Wednesday.[facility]06-11-2025 Telephone encounter Note* Telephone Encounter - Jenae Santamaria MD - 09/06/2024 5:01 PM EDT Will order chest x-ray. Does patient have good SpO2 or fevers, chills or trouble breathing? Jenae Santamaria MD [facility]06-11-[facility] Telephone encounter Note* Telephone Encounter - Judie Garrido MA - 09/06/2024 4:11 PM EDT Nurse from [facility] called david [phone], calling to report she did hear some crackles in pt's left lower lobe in the lungs, pt does have some gargling and states pt does not sit up well when taking a drink, but reports no cough asking if you want a chest xray or an antibiotic Please advise [facility]-10[facility] Telephone encounter Note* Telephone Encounter - Judie Garrido MA - 09/05/2024 2:38 PM EDT Spoke to judie, states patient said felt like mucus he was choking on, he was having episode of coughing, reports unknown to a possible upper respiratory infection pt has not complained or said anything about possibly being sick but judie does report he did eat some cheese keshav before starting with PT, also judie reports she was behind him when pt had the fall so she didn't get to see his face when the fall happened and family who was there did not pay attention to patient so she is not sure if he felt lightheaded or maybe lost balance and patient reports he doesn't remember what happened, pt is still home with family [facility]06-[facility] Miscellaneous Notes* Telephone Encounter - Judie Garrido MA - 09/05/2024 2:38 PM EDT Spoke to judie, patient said felt like mucus he was choking on, he was having episode of coughing, reports unknown to a possible upper respiratory infection pt has not complained or said anything about possibly being sick but judie does report he did eat some cheese keshav before starting with PT, also judie reports she was behind him when pt had the fall so she didn't get to see his face when the fall happened and family who was there did not pay attention to patient so she is not sure if he felt lightheaded or maybe lost balance and patient reports he doesn't remember what happened, pt is still home with family * Telephone Encounter - Jenae Santamaria MD - 09/05/2024 11:19 AM EDT Did patient feel like choking on saliva or food? Was patient lightheaded or too misstep and then fell? Jenae Santamaria MD * Telephone Encounter - Judie Garrido MA - 09/05/2024 11:01 AM EDT PT Judie called [phone] to report pt had a fall during PT today, pt states he doesn't remember falling, states he felt like he was choking, judie PT states she did catch him and helped lower him to the ground, reports no injury, states EMS was called assisted pt helped pt back up did not send pt to ER for evaluation. FYI documented in this encounterU[facility] Center06-10-2025 Telephone encounter Note * Telephone Encounter - Jenae Santamaria MD - 09/05/2024 11:19 AM EDT Did patient feel like choking on saliva or food? Was patient lightheaded or too misstep and then fell? Jenae Santamaria MD [facility]06-10-[facility] Telephone encounter Note* Telephone Encounter - Judie Garrido MA - 09/05/2024 11:01 AM EDT PT Judie called [phone] to report pt had a fall during PT today, pt states he doesn't remember falling, states he felt like he was choking, judie PT states she did catch him and helped lower him to the ground, reports no injury, states EMS was called assisted pt helped pt back up did not send pt to ER for evaluation. FYI [facility]06-04-2025 Telephone encounter Note* Telephone Encounter - Judie Garrido MA - 08/30/2024 2:53 PM EDT Left luis a vm message given verbal ok will call me back if she needs us to send anything over [facility]06-04-[facility] Miscellaneous Notes* Telephone Encounter - Judie Garrido MA - 08/30/2024 2:53 PM EDT Left luis a vm message given verbal ok will call me back if she needs us to send anything over * Telephone Encounter - Jenae Santamaria MD - 08/30/2024 1:55 PM EDT Patient is fine to have maddox catheter exchanged Jenae Santamaria MD * Telephone Encounter - Judie Garrido MA - 08/30/2024 1:43 PM EDT Got a call from luis from [facility] [place] about [place], she was calling to report [...] urine looked good call back number is [phone] I can call and give a verbal if you are ok with this Please advise documented in this encounterUc [facility] Center06-04-2025 Telephone encounter Note * Telephone Encounter - Jenae Santamaria MD - 08/30/2024 1:55 PM EDT Patient is fine to have maddox catheter exchanged Jenae Santamaria MD [facility] Telephone encounter Note* Telephone Encounter - Judie Garrido MA - 08/30/2024 1:43 PM EDT Got a call from luis from [facility] [place] about pt, she was calling to report [...] urine looked good call back number is [phone] I can call and give a verbal if you are ok with this Please advise [facility] Progress note* Result Encounter Note - Jenae Santamaria MD - 08/25/2024 6:55 PM EDT Please call if patient has not seen message Jenae Santamaria MD [facility]05-30-2025 Miscellaneous Notes* Result Encounter Note - Jenae Santamaria MD - 08/25/2024 6:55 PM EDT Please call if patient has not seen message Jenae Santamaria MD documented in this encounterUc Medical Center05-30-2025 Telephone encounter Note * Telephone Encounter - Balta Scott RD - 08/25/2024 9:20 AM EDT Shellie failed to show for his RD CDE appointment today. A message was left with scheduling phone number to call and reschedule. He rescheduled his appointment earlier this year to this date. Thank you for the referral. Balta Scott MS RD LD CDCES [facility] Work Phone: 1(480) 759-866205-30-2025 Miscellaneous Notes* Telephone Encounter - Balta Scott RD - 08/25/2024 9:20 AM EDT Shellie failed to show for his RD CDE appointment today. A message was left with scheduling phone number to call and reschedule. He rescheduled his appointment earlier this year to this date. Thank you for the referral. Balta Scott MS RD LD CDCES documented in this encounterUc Medical Center05-27-2025 Instructions* Patient Instructions* Jenae Santamaria MD - 08/22/2024 11:38 AM EDT - follow up with Dr. Ramos to discuss starting baby aspirin and eliquis documented in this encounterUc Medical Center05-27-2025 NoteHNO ID: [id number] Author: JENAE SANTAMARIA MD Service: ? Author Type: Physician Type: Progress Notes Filed: 08/27/2024 11:10 Note Text: [facility] [address] [place] [address] Date of Evaluation: 08/22/2024 Patient Name: Emelia [...] on 07/06/2024. Patient was also evaluated by OFFICE ASSISTANCE. Patient underwent EGD with GI (Dr. Ramos) [...] rupture Aneurysm - Abdominal Aorta Atherosclerosis of twenty-nine palms arteries of the extremities with intermittent claudication [...] Retention of urine Stroke (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 Unspecified hemorrhoids without mention of complication Hemorrhoids Unspecified hypothyroidism Hypothyroidism PAST SURGICAL HISTORY Procedure Laterality Date BYP OTH/THN VEIN AORTOBIFEMORAL 2014 aortobifem LAPAROSCOPIC HEMICOLECTOMY colostomy PAST SURGICAL HISTORY OF Right 02/13/2020 [facility] FAMILY HISTORY Problem Relation Age of Onset Diabetes Father Stroke ( age 89) Diabetes Mother Stroke ( age 88) Stroke Mother Diabetes Sister "Brain " ( age 64) Diabetes Brother other (Old Age) Mater (more content not included)...[facility] 08-22-2024 History of Present illness Narrative* Jenae Santamaria MD - 08/22/2024 11:00 AM EDT Images from the original note were not included. [facility] [address] [place] [address] Date of Evaluation: 08/22/2024 Patient Name: Emelia Johnson : 1950 Subjective Shellie Johnson is a 74 year old male with complex medical history including multiple recent hospitalizations who presents for follow up visit. Patient presents with son today who helped provide some history. Since his visit in March 2024, patient had been admitted 07/01/2024 to 07/07/2024 and 07/13/2024to 07/20/2024. The first admission was related to urosepsis with patient presenting to ER with N/V and dysuria. Patient at the time also noted worsening LLE swelling with venous duplex negative for DVT. Blood cultures were negative but urine culture grew MRSA. Patient underwent CTA pelvis with runoff which showedhypertrophy of LLE consistent with L femoral AV malformation. Patient was seen by vascular surgery (Dr. Thompson) with patient undergoing arch aortogram with angioplasty and stent placement of L profundofemoral artery on 07/06/2024. Patient was also evaluated by OFFICE ASSISTANCE. Patient underwent EGD with GI () on 07/04/2024 and found to have severe erosive esophagitis, benign appearing esophageal stenosis which was dilated and chronic duodenitis. Patient was recommended re-evaluation with EGD in 1 month and prescribed protonix 40 mg BID for 8 weeks. The second admission was related to GI bleeding. Patient was seen by GI again. Eliquis and ASA werestopped during second admission due to risk of [...] as he takes his time and remains upright.He has not experienced any recent emesis. He [...] rupture Aneurysm - Abdominal Aorta Atherosclerosis of twenty-nine palms arteries of the extremities with intermittent claudication ASO - Extremities & Claudication CAD (coronary artery disease) Coronary artery disease Cancer (HCC) CKD (chronic kidney disease) stage 3, GFR 30-59 ml/min ([facility]) Colon cancer (HCC) Depression Diabetes ([facility]) Dyslipidemia Former smoker quit 2 weeks ago Hyperlipidemia Hypertension Hypertrophy of prostate with urinary obstruction and other lower urinary tract symptoms (LUTS) Hypertrophy of the prostate with obstruction Obesity Occlusion and stenosis of carotid artery with cerebral infarction ASO - Carotid W/O Infarction Other psoriasis and similar disorders Psoriasis Retention of urine Stroke (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 Unspecified hemorrhoids without mention of complication Hemorrhoids Unspecified hypothyroidism Hypothyroidism PAST SURGICAL HISTORY Procedure Laterality Date BYP OTH/THN VEIN AORTOBIFEMORAL 2013 aortobifem LAPAROSCOPIC HEMICOLECTOMY colostomy PAST SURGICAL HISTORY OF Right 02/13/2020 [facility] FAMILY HISTORY Problem Relation Age of Onset Diabetes Father Stroke ( age 89) Diabetes Mother Stroke ( age 88) Stroke Mother Diabetes Sister "Brain " ( age 64) Diabetes Brother other (Old [...] EACH NOSTRIL AT BEDTIME FERROUS SULFATE, BULK, MISC Blood Pressure Test Kit-Large (Senscient BP MONITOR) 1 Each two times a day. flash glucose sensor (FREESTYLE HEMA 14 DAY SENSOR) kit 1 Each four times daily. Fenofibrate 160 mg tablet Take 1 tablet by mouth once daily. khbhcisermh-lyyrqzfhb-fogqefml (TRELEGY ELLIPTA) 100-62.5-25 mcg inhalation powder Inhale 1 puff asinstructed once daily. linaGLIPtin (TRADJENTA) 5 mg tab [...] kg (178 lb) SpO2 99% BMI 27.88 kg/m Physical Exam Vitals reviewed. Constitutional: General: He [...] decision making. The patient is in agreement withthe diagnostic and treatment plans. I spent a total of 50 minutes on the date of the service which included fcgc-en-nwds patient care, completing clinical documentation, obtaining and/or reviewing separately obtained history, performing a medically appropriate examination, counseling and educating the patient/family/caregiver, and ordering medications, tests, or procedures. Recording using MINDBODY software for draft documentation of the visit was discussed with the patient/authorized scheduling representative; all questions welcomed and answered. Patient/authorized scheduling representative agreed to proceed documented in this encounterUc Medical Center05-20-2025 NoteHNO ID: [id number] Author: KELSI FARMER RN Service: ? Author Type: Registered Nurse Type: Progress Notes Filed: 08/15/2024 10:03 Note Text: TRANSITIONAL CARE MANAGEMENT (TCM) COMMUNITY MONITORING PROGRAM - [place] Provider Action/FYI: Contact out of 2 business day window SUMMARY: Pt discharged from [facility] on 08/05/24. Admitted for: acidosis Patient seen Inpatient MOOSE Visit? N/A. Patient seen ICARE Program? No. Contact made with patient: Yes Hi my name is Kelsi Farmer RN and I am calling from the [facility] on behalf of your PCP, Jenae Santamaria [...] like to speak with a social work steam service inspector to help give you support for any [...] present (or call on the way if possible).[facility]05-20-2025 NotePatient Outreach (AGACM) EMELIA JOHNSON ([id number]) 1950 M Date Time Provider Department 08/15/24 KELSI FARMER During your visit today, we recorded the following information about you: Kelsi Farmer RN 08/15/2024 10:03 AM Signed TRANSITIONAL CARE MANAGEMENT (TCM) COMMUNITY MONITORING PROGRAM - [place] Provider Action/FYI: Contact out of 2 business day window SUMMARY: Pt discharged from [facility] on 08/05/24. Admitted for: acidosis Patient seen Inpatient MOOSE Visit? N/A. Patient seen ICARE Program? No. Contact made with patient: Yes Hi my name is Kelsi Farmer RN and I am calling from the [facility] on behalf of your PCP, Jenae Santamaria [...] like to speak with a social work steam service inspector to help give you support for any [...] for Visit: Transition Of Care [4074] Cmt: DC SNF 08/05/24 Prescriptions as of (more content not included)...[facility]05-14-2025 Telephone encounter Note* Telephone Encounter - Jefferson Bryant - 08/09/2024 11:33 AM EDTSummary: FIRST NO-SHOW No Show Documentation Emelia Johnson no showed for an appointment on 08/08/2024 with Jenae Santamaria MD at 10:40 am. He was scheduled for a hospital follow-up. I called and spoke with the patient's son regarding his missed appointment. Emelia's son stated the reason that he missed his appointment was because scheduling error/conflict . They thought the appointment had been scheduledfor 08/10/2024. No show determined to be fault of patient: Yes This is the patients first no show in the last 12 months. Patient was rescheduled for 08/22/2024 at 10:40 am. Letter mailed : Yes Is this the Third or Fourth "No Show"? Corie Bryant August 09, 2024 11:33 AM [facility]05-14-2025 Miscellaneous Notes* Telephone Encounter - Jefferson Bryant - 08/09/2024 11:33 AM EDTSummary: FIRST NO-SHOW No Show Documentation Emelia Johnson no showed for an appointment on 08/08/2024 with Jenae Santamaria MD at 10:40 am. He was scheduled for a hospital follow-up. I called and spoke with the patient's son regarding his missed appointment. Emelia's son stated the reason that he missed his appointment was because scheduling error/conflict . They thought the appointment had been scheduledfor 08/10/2024. No show determined to be fault of patient: Yes This is the patients first no show in the last 12 months. Patient was rescheduled for 08/22/2024 at 10:40 am. Letter mailed : Yes Is this the Third or Fourth "No Show"? Corie Bryant August 09, 2024 11:33 AM documented in this encounterUc Medical Center05-14-2025 Telephone encounter Note * Telephone Encounter - Judie Garrido MA - 08/09/2024 9:42 AM EDT Pharmacy faxed requesting the following refill Refill(s) Requested: Requested Prescriptions Pending Prescriptions Disp Refills amLODIPine (NORVASC) 5 mg tablet [Pharmacy Med Name: AMLODIPINE BESYLATE 5 MG TAB] 90 tablet 1 Sig: TAKE 1 TABLET BY MOUTH EVERY DAY ALLERGIES Allergen Reactions Lipitor [Atorvastat* Other: See Comments body aches (home) [phone] (cell) Last Office Visit Date: 04/07/2024 Last Distance [facility] Visit: Visit date not found Future Appointment: Visit date not found The patients preferred pharmacy has been captured for this encounter? yes Request is for script(s) to be escript to pharmacy. Judie Garrido MA [facility]05-14-2025 Miscellaneous Notes* Telephone Encounter - Judie Garrido MA - 08/09/2024 9:42 AM EDT Pharmacy faxed requesting the following refill Refill(s) Requested: Requested Prescriptions Pending Prescriptions Disp Refills amLODIPine (NORVASC) 5 mg tablet [Pharmacy Med Name: AMLODIPINE BESYLATE 5 MG TAB] 90 tablet 1 Sig: TAKE 1 TABLET BY MOUTH EVERY DAY ALLERGIES Allergen Reactions Lipitor [Atorvastat* Other: See Comments body aches (home) [phone] (cell) Last Office Visit Date: 04/07/2024 Last [facility] Visit: Visit date not found Future Appointment: Visit date not found The patients preferred pharmacy has been captured for this encounter? yes Request is for script(s) to be escript to pharmacy. Judie Garrido MA documented in this encounterUc Medical Center05-12-2025 NoteHNO ID: [id number] Author: BEATRIS FERRO RN Service: ? Author Type: Registered Nurse Type: Progress Notes Filed: 08/07/2024 06:54 Note Text: Received notification via careport: Patient discharged from [facility] on 08/05/2024 to [facility] with [facility]. A discharge summary and medicatoin list has been requested. PCC notified. Beatris Ferro RN August 07[facility]05-12-2025 History of Present illness Narrative* Beatris Ferro RN - 08/07/2024 6:53 AM EDT Received notification via careport: Patient discharged from [facility] on 08/05/2024 [facility]. A discharge summary and medicatoin list has been requested. PCC notified. Beatris Ferro RN August 07, 2024 documented in this encounterUc Medical Center05-12-2025 NotePatient Outreach (AGACM) DUCEMELIA BOOKER Ranjeet ([id number]) 1950 M Date Time Provider Department 08/07/24 BEATRIS FERRO [facility] During your visit today, we recorded the following information about you: Beatris Ferro RN 08/07/2024 6:54 AM Signed Received notification via careport: Patient discharged from [facility] on 08/05/2024 to home with [facility]. A discharge summary and medicatoin list has been requested. PCC notified. Beatris Ferro RN August 07, 2024 Allergies As of Date: 08/07/2024 Noted Allergy Reaction LIPITOR (ATORVASTATIN) 11/17/2013 14 - Other: See Comments Comments: body aches Date Reviewed: 05/19/2024 Reviewed by: Carolyne Menon LPN - Fully Assessed Reason for Visit: Transition Of Care [4074] Cmt: Discharged from [facility] to home with [facility] home care Prescriptions as of 08/07/2024 - [...] 1 tablet by mouth once daily. - wtzckhmvdso-ulaahagey-mngdufen (TRELEGY ELLIPTA) 100-62.5-25 mcg inhalation powder Inhale [...] BULK, MISC - Blood Pressure Test Kit-Large (Senscient CHOICE BP MONITOR) 1 Each two times a day. - flash glucose sensor (FREESTYLE HEMA 14 DAY SENSOR) kit 1 Each four times daily. - Fenofibrate 160 mg tablet Take 1 tablet by mouth once daily. 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/21/2013 02/08/2020 Atherosclerosis of twenty-nine palms artery of extremity w*11/21/2013 Other hyperlipidemia [E78.49] Unspecified hypothyroidism [E03.9] Smoker [F17.200] 01/27/2015 Chronic ischemic right MCA stroke [Z86.73] 02/08/2020 CAD (coronary artery disease), twenty-nine palms coronary *12/27/2013 Postprocedural hypotension [I95.81] 12/27/2013 09/25/2020 [...] infection associated with indwell*10/13/2020 Encounter Status:Closed by BEATRIS FERRO on 08/07/24[facility] 08-04-2024 Telephone encounter Note* Telephone Encounter - Janel Fernández MA - 08/04/2024 3:11 PM EDT Verbal orders given to Bety for SN, OT, PT and [employer] MECH[employer]IC. Janel Fernández MA [facility]05-09-2025 Miscellaneous Notes* Telephone Encounter - Janel Fernández MA - 08/04/2024 3:11 PM EDT Verbal orders given to Bety for SN, OT, PT and SAFE AND VAULT MECHANIC. Janel Fernández MA documented in [facility]04[facility]04[facility]18[facility]25 [facility]04-17-2025 Discharge summary [facility] Medical Records Department [address] [place] [address] Emergency Department Summary 07/13/24 MR#: [id number] Acct: [id number] Name: EMELIA JOHNSON Rep #:[id number] : 1950 74 From: John Michele MD PCP: Shari Hurd MD Status:REG ER Location: ED HPI HPI - GI History of Present Illness Chief Complaint: GI Bleed Narrative Narrative: History of physical limited secondary to patient's memory issues. 74-year-old male presents from longterm facility with reported removal of clots and bleeding from ostomy. He has history of colon carcinoma and has had an ostomy for quite some time. He does take Eliquis for history of DVT. Itwas reported that he has had blood and clots coming from his ostomy site. Patient denies anyother bleeding diathesis, no abdominal pain, no nausea or vomiting. [facility] Medical History Peripheral arterial disease with history of revascularization MRSA (methicillin resistant staph aureus) culture positive Wears glasses Low iron Stroke/cerebrovascular accident Former smoker Colostomy in place Family history of abdominal aortic aneurysm repair DVT (deep venous thrombosis) Enteritis Cholelithiasis Acidosis, lactic Encephalopathy due to infection Acute hypoxemic respiratory failure Complicated urinary tract infection Severe sepsis with acute organ dysfunction Aspiration into respiratory tract FIOR (acute kidney injury) Colon cancer Home Medications ?Medication ?Instructions ?Recorded ?Last Taken ?Type finasteride 5 mg tablet 5 mg PO DAILY prostate 06/2106/30/24 History levothyroxine 100 mcg tablet 100 mcg PO DAILY@0600 #30 tabs 01/15/24 06/30/24 Rx pantoprazole 40 mg tablet,delayed 40 mg PO BID #60 tab s 01/15/24 06/30/24 Rx release albuterol sulfate 90 mcg/actuation 1 - 2 puff inhalati on 4X/DAY PRN 02/22/24 Unknown History aerosol inhaler wheezing apixaban 5 mg tablet (Eliquis) 5 mg PO BID 02/22/24 History aspirin 81 mg tablet,delayed 81 mg PO DAILY 07/01/24 0 06/30/24 History release fluticasone fur. 100 mcg-umeclid 1 ea inhalation DAILY 07/01/24 06/30/24 History 62.5 mcg-vilant 25 mcg inhalat.powder (Trelegy Ellipta) icosapent ethyl 1 gram capsule 1 g PO BID 07/01/2407/21 History linagliptin 5 mg tablet (Tradjenta) 5 mg PO DAILY 08/2006/30/24 History rosuvastatin 20 mg tablet 20 mg PO QHS 07/01/24 History linezolid 600 mg tablet (Zyvox) 600 mg PO BID #18 tabs 07/07/24 Unknown Rx nystatin 100,000 unit/gram topical 1 applic topical TI D #0 grams 07/07/24 Unknown Rx powder (Nyamyc) nystatin 100,000 unit/mL oral 100,000 unit PO DAILY #6 0 mL 07/07/24 Unknown Rx suspension oxycodone 5 mg capsule 5 mg PO Q4H PRN pain 2 days #12 07/07/24 Unknown Rx caps atorvastatin 40 mg tablet 40 mg PO QHS 07/13/24 Unknow n History ipratropium 0.5 mg-albuterol 3 mg 3 ml inhalation Q6H 07/13/24 Unknown History (2.5 mg base)/3 mL nebulization soln tuberculin PPD 1 unit/0.1 mL 0.1 tb unit intradermal Q health 04/17/25 Unknown History intradermal injection solution maintenance Allergy/AdvReac Type Severity Reaction Status Date / Time No Known Allergies Allergy Verified 07/13/24 17:01 Family History no significant family his Surgical History H/O esophagogastroduodenoscopy Hx of abdominal surgery Hx of endarterectomy (~2020) Social History Smoking Status: Former smoker Tobacco: How many years used: 50 ROS ROS ED ROS Narrative Unable to obtain from patient secondary to memory issues. Reported blood and clots from ostomy. EXAM Physical Exam Narrative Exam Narrative: Afebrile. Vital signs noted. Nontoxic-appearing. Cardiovascular examination reveals mild tachycardia. Lungs are clear to auscultation bilaterally anteriorly. Abdomen soft and nontender with positive ostomy bag. No guarding or rebound. Const Vital Signs: 07/13/24 16:59 07/13/24 18:58 07/13/24 19:59 Temperature 97.9 F Temperature Source Oral Pulse Rate 105 H 68 98 Respiratory Rate 16 17 20 H Blood Pressure 109/65 133/72 H Blood Pressure Mean 79 92 Pulse Ox 100 98 100 Oxygen Delivery Method Room Air Room Air Room Air 07/13/24 20:30 Temperature 97.9 F Temperature Source Pulse Rate 98 Respiratory Rate 20 H Blood Pressure 133/72 H Blood Pressure Mean 92 Pulse Ox 100 Oxygen Delivery Method MDM MDM MDM Narrative Medical decision making narrative: Differential diagnosis includes but not limited to diverticular bleeding versus AV malformation versus other bleeding in the GI tract. I reviewed his laboratory work and he has normal white count of 6.6, hemoglobin 8.4 which is down from 3 days ago from 12, drop of almost 4 g. Platelet count low at126, butwhen compared to prior labs, he has chronic thrombocytopenia. BUN is elevated at66 with crea tinine of 2.20 but he does have history of chronic kidney disease. LFTs are grossly unremarkable. CO2 low at 17.9. I reviewed the radiology report of the CT of the abdomen pelvis, this was without contrast secondary to his elevated creatinine GFR, and there is no acuteprocess. Given the drop of hemoglobin so significantly over 3 days, I discussedpatient with the hospitalist. Additionally, his stoma bag was removed and emptied and he has dark maroon almost black liquid in the stoma bag. I discussed the patientwith Dr. De La O who is familiar with the patient and states on one of his previous admissions, he had upper endoscopy and had upper GI bleeding. This is suspected with his elevated BUN as well. Hewould like him admitted to the PCU. Patient is in stable condition. History & Record Review Discussion w/independent historian: Patient Additional record(s) reviewed:: Prior inpatient record (Gastroenterology notes) and Prior labs Lab Data Attestation: I reviewed the patient's lab results. Labs: Laboratory Results - last 24 hr 07/13/24 17:50 WBC 6.6 RBC 2.80 L Hgb 8.4 L Hct 27.5 L MCV 98.2 H D MCH 30.0 MCHC 30.5 L D RDW Std Deviation 55.8 H RDW Coeff of Yanira 16.0 H Plt Count 126 L MPV 12.6 H Immature Gran % (Auto) 0.900 Neut % (Auto) 63.1 Lymph % (Auto) 27.8 [place] % (Auto) 5.0 Eos % (Auto) 2.7 Baso % (Auto) 0.5 Absolute Neuts (auto) 4.1 Absolute Lymphs (auto) 1.82 Nucleated RBC % 0 Sodium 140 Potassium 4.8 Chloride 107 Carbon Dioxide 17.9 L Anion Gap 15 BUN 66 H Creatinine 2.20 H Estim Creat Clear Calc 33.63 L Est GFR (MDRD) Non-Af 31 L BUN/Creatinine Ratio 30.0 H Glucose 117 H Calcium 8.9 Total Bilirubin 0.53 AST 27 ALT 7 Alkaline Phosphatase 44 Total Protein 6.1 Albumin 3.4 Globulin 2.8 Albumin/Globulin Ratio 1.2 Radiography Diagnostic Testing: Clinical Impression(s) from Imaging Studies Abdomen/Pelvis CT 07/13/24 18:37 IMPRESSION: Left upper quadrant ileostomy. Cholelithiasis. Severe left renal atrophy likely from chronic renal artery stenosis or occlusion. Aortobifem bypass graft. Maddox catheter in collapsed bladder. Anasarca. Reading Location: [id number] Discharge Plan Dx/Rx/DC Orders Clinical Impression: Acute GI bleeding, History of colon cancer, Anemia Disposition Disposition: Acute Care [facility] What to do if you have Problems For any increased pain, shortness of breath, bleeding, nausea or vomiting, chestpain, or any unexpected problems, contact your Primary Care Provider. Call [facility] ([phone]) or report tothe closest Emergency Room. Call 911 if necessary. 07/13/242035 Cosigner Signature (if applicable): CC: Shari Hurd MD ~ Signed [facility]04-17-2025 Radiology Diagnostic study note [facility] Imaging Services [address] [place] [address] Abdomen/Pelvis without Cont MR#: [id number] Acct: [id number] Name: EMELIA JOHNSON Rep #: [id number] : 1950 M 74 From: Christiano Ketn MD PCP: Shari Hurd MD Status: REG ER Study:Abdomen/Pelvis without Cont Date of Exa m: 07/13/24 Exam# [id number] Ordering Dr: John Michele MD PROCEDURE: ABDOMEN/PELVIS WITHOUT CONT 07/13/2024 REASON FOR EXAM: GI BLEEDING TECHNIQUE: Abdomen and pelvis CT without intravenous contrast. Noncontrast technique limits evaluation of the abdominal and pelvic viscera. Coronal and Sagittal reconstruction series were provided. One or more dose reduction techniques were used (e.g., Automated exposure control, adjustment of the mA and/or kV according to patient size, use of iterative reconstruction technique). PATIENT PREPARATION: Per protocol ORAL CONTRAST TYPE: None. AMOUNT: mL FINDINGS: Lung bases: Mild dependent atelectasis Liver: Normal size. No obvious mass. Gallbladder: Several calcified gallstones. Spleen: Normal size. Pancreas: Normal size. No surrounding inflammation. Adrenals: Unremarkable. Kidneys: Normal right kidney. Severe left renal atrophy likely from chronic renal artery stenosis or occlusion. No renal or ureteral stone. Bladder: Maddox catheter in the collapsed bladder. Reproductive Organs: Calcifications in the prostate gland. Bowel: Left upper quadrant ileostomy. Appendix: The appendix is not identified. There is no inflammatory process identified in the right lower quadrant to suggest appendicitis. Lymph nodes: Unremarkable. Vasculature: Aortobifem bypass graft. 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 5 mm of anterolisthesis of L5 on S1 consistent with grade 1 spondylolisthesis. Edema of the subcutaneous fat consistent with anasarca. CT/Abdomen/Pelvis without Cont IMPRESSION: Left upper quadrant ileostomy. Cholelithiasis. Severe left renal atrophy likely from chronic renal artery stenosis or occlusion. Aortobifem bypass graft. Maddox catheter in collapsed bladder. Anasarca. Reading Location: [id number] CC: Dr. John Michele MD; Shari Hurd MD ~ Payroll Analyst: Signed [facility]04-17-2025 Discharge summary Author John Michele [facility] Note Date/Time July 13, 2024 8:3 6pm [facility] Medical Records Department [address] [place] [address] Emergency Department Summary 07/13/24 MR#: [id number] Acct: [id number] Name: EMELIA JOHNSON Rep #:[id number] : 1950 74 From: John Michele MD PCP: Shari Hurd MD Status:REG ER Location: ED HPI HPI - GI History of Present Illness Chief Complaint: GI Bleed Narrative Narrative: History of physical limited secondary to patient's memory issues. 74-year-old male presents from longterm facility with reported removal of clots and bleeding from ostomy. He has history of colon carcinoma and has had an ostomy for quite some time. He does take Eliquis for history of DVT. It was reported that he has had blood and clots coming from his ostomy site. Patient denies anyother bleeding diathesis, no abdominal pain, no nausea or vomiting. [facility] Medical History Peripheral arterial disease with history of revascularization MRSA (methicillin resistant staph aureus) culture positive Wears glasses Low iron Stroke/cerebrovascular accident Former smoker Colostomy in place Family history of abdominal aortic aneurysm repair DVT (deep venous thrombosis) Enteritis Cholelithiasis Acidosis, lactic Encephalopathy due to infection Acute hypoxemic respiratory failure Complicated urinary tract infection Severe sepsis with acute organ dysfunction Aspiration into respiratory tract FIOR (acute kidney injury) Colon cancer Home Medications ?Medication ?Instructions ?Recorded ?Last Taken ?Type finasteride 5 mg tablet 5 mg PO DAILY prostate 06/2106/30/24 History levothyroxine 100 mcg tablet 100 mcg PO DAILY@0600 #30 tabs 01/15/24 06/30/24 Rx pantoprazole 40 mg tablet,delayed 40 mg PO BID #60 tab s 01/15/24 06/30/24 Rx release albuterol sulfate 90 mcg/actuation 1 - 2 puff inhalati on 4X/DAY PRN 02/22/24 Unknown History aerosol inhaler wheezing apixaban 5 mg tablet (Eliquis) 5 mg PO BID 02/22/24 History aspirin 81 mg tablet,delayed 81 mg PO DAILY 07/01/24 0 06/30/24 History release fluticasone fur. 100 mcg-umeclid 1 ea inhalation DAILY 07/01/24 06/30/24 History 62.5 mcg-vilant 25 mcg inhalat.powder (Trelegy Ellipta) icosapent ethyl 1 gram capsule 1 g PO BID 07/01/2407/21 History linagliptin 5 mg tablet (Tradjenta) 5 mg PO DAILY 08/2006/30/24 History rosuvastatin 20 mg tablet 20 mg PO QHS 07/01/24 History linezolid 600 mg tablet (Zyvox) 600 mg PO BID #18 tabs 07/07/24 Unknown Rx nystatin 100,000 unit/gram topical 1 applic topical TI D #0 grams 07/07/24 Unknown Rx powder (Nyamyc) nystatin 100,000 unit/mL oral 100,000 unit PO DAILY #6 0 mL 07/07/24 Unknown Rx suspension oxycodone 5 mg capsule 5 mg PO Q4H PRN pain 2 days #12 07/07/24 Unknown Rx caps atorvastatin 40 mg tablet 40 mg PO QHS 07/13/24 Unknow n History ipratropium 0.5 mg-albuterol 3 mg 3 ml inhalation Q6H 07/13/24 Unknown History (2.5 mg base)/3 mL nebulization soln tuberculin PPD 1 unit/0.1 mL 0.1 tb unit intradermal Q health 07/13/24 Unknown History intradermal injection solution maintenance Allergy/AdvReac Type Severity Reaction Status Date / Time No Known Allergies Allergy Verified 07/13/24 17:01 Family History no significant family his Surgical History H/O esophagogastroduodenoscopy Hx of abdominal surgery Hx of endarterectomy (~2020) Social History Smoking Status: Former smoker Tobacco: How many years used: 50 ROS ROS ED ROS Narrative Unable to obtain from patient secondary to memory issues. Reported blood and clots from ostomy. EXAM Physical Exam Narrative Exam Narrative: Afebrile. Vital signs noted. Nontoxic-appearing. Cardiovascular examination reveals mild tachycardia. Lungs are clear to auscultation bilaterally anteriorly. Abdomen soft and nontender with positive ostomy bag. No guarding or rebound. Const Vital Signs: 07/13/24 16:59 07/13/24 18:58 07/13/24 19:59 Temperature 97.9 F Temperature Source Oral Pulse Rate 105 H 68 98 Respiratory Rate 16 17 20 H Blood Pressure 109/65 133/72 H Blood Pressure Mean 79 92 Pulse Ox 100 98 100 Oxygen Delivery Method Room Air Room Air Room Air 07/13/24 20:30 Temperature 97.9 F Temperature Source Pulse Rate 98 Respiratory Rate 20 H Blood Pressure 133/72 H Blood Pressure Mean 92 Pulse Ox 100 Oxygen Delivery Method MDM MDM MDM Narrative Medical decision making narrative: Differential diagnosis includes but not limited to diverticular bleeding versus AV malformation versus other bleeding in the GI tract. I reviewed his laboratory work and he has normal white count of 6.6, hemoglobin 8.4 which is down from 3 days ago from 12, drop of almost 4 g. Platelet count low at 126, butwhen compared to prior labs, he has chronic thrombocytopenia. BUN is elevated at66 with creatinine of 2.20 but he does have history of chronic kidney disease. LFTs are grossly unremarkable. CO2 low at 17.9. I reviewed the radiology report of the CT of the abdomen pelvis, this was without contrast secondary to his elevated creatinine GFR, and there is no acuteprocess. Given the drop of hemoglobin so significantly over 3 days, I discussedpatient with the hospitalist. Additionally, his stoma bag was removed and emptied and he has dark maroon almost black liquid in the stoma bag. I discussed the patient with Dr. De La O who is familiar with the patient and states on one of his previous admissions, he had upper endoscopy and had upper GI bleeding. This is suspected with his elevated BUN as well. He would like him admitted to the PCU. Patient is in stable condition. History & Record Review Discussion w/independent historian: Patient Additional record(s) reviewed:: Prior inpatient record (Gastroenterology notes) and Prior labs Lab Data Attestation: I reviewed the patient's lab results. Labs: Laboratory Results - last 24 hr 07/13/24 17:50 WBC 6.6 RBC 2.80 L Hgb 8.4 L Hct 27.5 L MCV 98.2 H D MCH 30.0 MCHC 30.5 L D RDW Std Deviation 55.8 H RDW Coeff of Yanira 16.0 H Plt Count 126 L MPV 12.6 H Immature Gran % (Auto) 0.900 Neut % (Auto) 63.1 Lymph % (Auto) 27.8 [place] % (Auto) 5.0 Eos % (Auto) 2.7 Baso % (Auto) 0.5 Absolute Neuts (auto) 4.1 Absolute Lymphs (auto) 1.82 Nucleated RBC % 0 Sodium 140 Potassium 4.8 Chloride 107 Carbon Dioxide 17.9 L Anion Gap 15 BUN 66 H Creatinine 2.20 H Estim Creat Clear Calc 33.63 L Est GFR (MDRD) Non-Af 31 L BUN/Creatinine Ratio 30.0 H Glucose 117 H Calcium 8.9 Total Bilirubin 0.53 AST 27 ALT 7 Alkaline Phosphatase 44 Total Protein 6.1 Albumin 3.4 Globulin 2.8 Albumin/Globulin Ratio 1.2 Radiography Diagnostic Testing: Clinical Impression(s) from Imaging Studies Abdomen/Pelvis CT 07/13/24 18:37 IMPRESSION: Left upper quadrant ileostomy. Cholelithiasis. Severe left renal atrophy likely from chronic renal artery stenosis or occlusion. Aortobifem bypass graft. Maddox catheter in collapsed bladder. Anasarca. Reading Location: [id number] Discharge Plan Dx/Rx/DC Orders Clinical Impression: Acute GI bleeding, History of colon cancer, Anemia Disposition Disposition: [facility] What to do if you have Problems For any increased pain, shortness of breath, bleeding, nausea or vomiting, chestpain, or any unexpected problems, contact your Primary Care Provider. Call [facility] ([phone]) or report to the closest Emergency Room. Call 911 if necessary. 07/13/242035 <Electronically signed by John Michele MD> Cosigner Signature (if applicable): CC: Shari Hurd MD ~ Signed [facility] Work Phone: [phone]) 590-849504-14-2025 NoteHNO ID: [id number] Author: VICK ROLLINS RN Service: ? Author Type: Registered Nurse Type: Progress Notes Filed: 07/10/2024 10:56 Note Text: TRANSITION CARE MANAGEMENT (TCM) DISCHARGE TO POST ACUTE FACILITY POST ACUTE TRANSFER SUMMARY: -Pt discharged from [facility] on 07/07/2024. -Post Acute Facility Admitted to [facility] -Admitted for: Acidosis Office PCC will follow at discharge Vick Rollins RN July 10, 2024 9:[facility] of Present illness Narrative* Vick Rollins RN - 07/10/2024 9:11 AM EDT TRANSITION CARE MANAGEMENT (TCM) DISCHARGE TO POST ACUTE FACILITY POST ACUTE TRANSFER SUMMARY: -Pt discharged from [facility] on 07/07/2024. -Post Acute Facility Admitted to [facility] -Admitted for: Acidosis Office PCC will follow at discharge Vick Rollins RN July 10, 2024 9:12 AM [facility] NotePatient Outreach (AGACM) EMELIA JOHNSON ([id number]) 1950 M Date Time Provider Department 07/10/24 VICK ROLLINS During your visit today, we recorded the following information about you: Vick Rollins RN 07/10/2024 10:56 AM Signed TRANSITION CARE MANAGEMENT (TCM) DISCHARGE TO POST ACUTE FACILITY POST ACUTE TRANSFER SUMMARY: -Pt discharged from [facility] on 07/07/2024. -Post Acute Facility Admitted to [facility] -Admitted for: Acidosis Office PCC will follow at discharge Vick Rollins RN July 10, 2024 9:12 AM Allergies As of Date: 07/10/2024 Noted Allergy Reaction LIPITOR (ATORVASTATIN) 11/17/2013 14 - Other: See Comments Comments: body aches Date Reviewed: 05/19/2024 Reviewed by: Carolyne Menon LPN - Fully Assessed Reason for Visit: Transition Of Care [4074] Cmt: [facility] discharged to [facility] Prescriptions as of 07/10/2024 - pantoprazole DR [...] 1 tablet by mouth once daily. - lthpwlkrlix-rejvvrbnk-bjugqlid (TRELEGY ELLIPTA) 100-62.5-25 mcg inhalation powder Inhale [...] BULK, MISC - Blood Pressure Test Kit-Large (Senscient CHOICE BP MONITOR) 1 Each two times a day. - flash glucose sensor (FREESTYLE HEMA 14 DAY SENSOR) kit 1 Each four times daily. - Fenofibrate 160 mg tablet Take 1 tablet by mouth once daily. 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/2013 02/08/2020 Atherosclerosis of twenty-nine palms artery of extremity w*11/21/2013 Other hyperlipidemia [E78.49] Unspecified hypothyroidism [E03.9] Smoker [F17.200] 01/27/2015 Chronic ischemic right MCA stroke [Z86.73] 02/08/2020 CAD (coronary artery disease), twenty-nine palms coronary *12/27/2013 Postprocedural hypotension [I95.81] 12/27/2013 09/25/2020 [...] infection associated with indwell*10/13/2020 Encounter Status:Closed by KA (more content not included)...[facility]2025 Consult note [facility] Medical Records Department [address] [place] [address] Counseling Note - Pharmacy 07/07/24 1518 MR#: [id number] Acct: [id number] Name: EMELIA JOHNSON Rep #:[id number] : 1950 74 From: Dinah Gerber PCP: Jenae Santamaria MD Status:ADM IN Y Location: [place] [address] Pharmacy [place] Med Reconciliation Pharmacy Service has performed discharge medication reconciliation for this patient. The patient's discharge medication list was reviewed for discrepancies and discrepancies were resolved. Medications at Discharge Home Medications finasteride 5 mg tablet 5 mg PO DAILY prostate 06/22/23 levothyroxine 100 mcg tablet 100 mcg PO DAILY@0600 #30 tabs 01/15/24 pantoprazole 40 mg tablet,delayed release 40 mg PO BID #60 tabs 01/15/24 albuterol sulfate 90 mcg/actuation aerosol inhaler 1 - 2 puff inhalation 4X/DAY PRN wheezing 02/22/24 apixaban 5 mg tablet (Eliquis) 5 mg PO BID 02/22/24 aspirin 81 mg tablet,delayed release 81 mg PO DAILY 07/01/24 ergocalciferol (vitamin D2) 1,250 mcg (50,000 unit) capsule 1,250 mcg PO MO 07/01/24 fluticasone fur. 100 mcg-umeclid 62.5 mcg-vilant 25 mcg inhalat.powder (Trelegy Ellipta) 1 ea inhalation DAILY 07/01/24 icosapent ethyl 1 gram capsule 2 g PO BID 07/01/24 levothyroxine 150 mcg tablet 150 mcg PO DAILY 07/01/24 linagliptin 5 mg tablet (Tradjenta) 5 mg PO DAILY 07/01/24 rosuvastatin 20 mg tablet 20 mg PO QHS 07/01/24 ipratropium 0.5 mg-albuterol 3 mg (2.5 mg base)/3 mL nebulization soln 3 ml inhalation Q6HWA.RT #0 mL 07/07/24 linezolid 600 mg tablet (Zyvox) 600 mg PO BID #18 tabs 07/07/24 nystatin 100,000 unit/gram topical powder (Nyamyc) 1 applic topical TID #0 grams07/07/24 nystatin 100,000 unit/mL oral suspension 100,000 unit PO DAILY #60 mL 07/07/24 oxycodone 5 mg capsule 5 mg PO Q4H PRN pain 2 days #12 caps 07/07/24 07/07/24 1518 Date _ Dinah Sanchez Signature (if applicable): Date CC: ~ Signed [facility]2025 Consult note Author Dinah Gerber [facility] Note Date/Time July 07, 2024 7:4 9pm [facility] Medical Records Department [address] [place] [address] Counseling Note - Pharmacy 07/07/24 1518 MR#: [id number] Acct: [id number] Name: EMELIA JOHNSON Rep #:[id number] : 1950 74 From: Dinah Gerber PCP: Jenae Santamaria MD Status:ADM IN Y Location: [place] [address] Pharmacy [place] Med Reconciliation Pharmacy Service has performed discharge medication reconciliation for this patient. The patient's discharge medication list was reviewed for discrepancies and discrepancies were resolved. Medications at Discharge Home Medications finasteride 5 mg tablet 5 mg PO DAILY prostate 06/22/23 levothyroxine 100 mcg tablet 100 mcg PO DAILY@0600 #30 tabs 01/15/24 pantoprazole 40 mg tablet,delayed release 40 mg PO BID #60 tabs 01/15/24 albuterol sulfate 90 mcg/actuation aerosol inhaler 1 - 2 puff inhalation 4X/DAY PRN wheezing 02/22/24 apixaban 5 mg tablet (Eliquis) 5 mg PO BID 02/22/24 aspirin 81 mg tablet,delayed release 81 mg PO DAILY 07/01/24 ergocalciferol (vitamin D2) 1,250 mcg (50,000 unit) capsule 1,250 mcg PO MO 07/01/24 fluticasone fur. 100 mcg-umeclid 62.5 mcg-vilant 25 mcg inhalat.powder (Trelegy Ellipta) 1 ea inhalation DAILY 07/01/24 icosapent ethyl 1 gram capsule 2 g PO BID 07/01/24 levothyroxine 150 mcg tablet 150 mcg PO DAILY 07/01/24 linagliptin 5 mg tablet (Tradjenta) 5 mg PO DAILY 07/01/24 rosuvastatin 20 mg tablet 20 mg PO QHS 07/01/24 ipratropium 0.5 mg-albuterol 3 mg (2.5 mg base)/3 mL nebulization soln 3 ml inhalation Q6HWA.RT #0 mL 07/07/24 linezolid 600 mg tablet (Zyvox) 600 mg PO BID #18 tabs 07/07/24 nystatin 100,000 unit/gram topical powder (Nyamyc) 1 applic topical TID #0 grams07/07/24 nystatin 100,000 unit/mL oral suspension 100,000 unit PO DAILY #60 mL 07/07/24 oxycodone 5 mg capsule 5 mg PO Q4H PRN pain 2 days #12 caps 07/07/24 07/07/24 1518 <Electronically signed by Dinah Gerber> Date _ Dinah Gerber Cosigner Signature (if applicable): Date CC: ~ Signed [facility] Work Phone: [phone] Discharge summary Author Ginger Espitia [facility] Note Date/Time July 07, 2024 2:3 2pm [facility] Medical Records Department [address] [place] [id number] Discharge Summary 07/07/24 1230 MR#: [id number] Acct: [id number] Name: EMELIA JOHNSON Rep #:[id number] : 1950 74 From: Ginger Espitia DO PCP: Jenae Santamaria MD Status:ADM IN Location: [place] [address] Providers Date of Admission: 07/01/24 Primary Care Physician: Jenae Santamaria MD Consultations 07/01/24 18:05 Consult: Onc/Wound/passenger agent Routine Comment: Reason for Consult:: COLOSTOMY CARE 07/03/24 10:55 Consult: Gastroenterology Routine Consulting Provider: [facility] Reason for Consult: known to you, here w/ dysphagia and possib aspiration pna, eval for EGD EMERGENT Consult: No MD Notified: Yes Date Notified: 07/03/24 Time Notified: 10:55 Method of Notification: Text 07/03/24 11:22 Consult: Vascular Surgery Routine Consulting Provider: Efraín Thompson Reason for Consult: abnormal venous duplex US on left EMERGENT Consult: No MD Notified: Yes Date Notified: 07/03/24 Time Notified: 11:22 Method of Notification: per Dr. De La O Reason For Visit: COMPLICATED UTI W/ CONCERN FOR SEPSIS LEFT LOWER Diagnosis Discharge Diagnosis (1) Femoral arteriovenous fistula, left: Status: Acute Code(s): I77.0 - Arteriovenous fistula, acquired (2) Leukocytosis: Status: Acute Code(s): D72.829 - Elevated white blood cell count, unspecified (3) Acidosis, lactic: Status: Acute Code(s): E87.20 - Acidosis, unspecified (4) Acute UTI: Status: Acute Code(s): N39.0 - Urinary tract infection, site not specified (5) Sepsis: Status: Acute Code(s): A41.9 - Sepsis, unspecified organism (6) Peripheral arterial disease with history of revascularization: Status: Acute Code(s): I73.9 - Peripheral vascular disease, unspecified; Z98.890 - Other specified postprocedural states Plan Sepsis secondary to UTI in the setting of chronic urinary retention/aspiration pneumonia -Patient with lactic acidosis, leukocytosis, tachycardia and tachypnea -CT on presentation showed subtle ground glass opacity in the right lower lobe concerning for acute pneumonia as well as hydronephrosis and hydroureter of the right kidney suspect related to chronic reflux -Patient does have known aspiration issues -Urine culture was positive for MRSA -Continue linezolid to complete antibiotic course given his chronic Maddox and the fact that this is a complicated UTI with MRSA Dysphagia -EGD done on 07/04/2024 showed grade D erosive esophagitis that was bleeding, benign-appearing esophageal stenosis that was dilated and chronic duodenitis -Continue speech therapy with diet modifications as recommended Erosive esophagitis/esophageal stenosis -Biopsies are pending -repeat EGD in 1 month -Protonix 40 mg twice daily recommended at discharge FIOR on CKD stage IIIb -Baseline creatinine looks to be between 1.6 and 1.75 -Creatinine on presentation 2.13 -Currently 1.44 and stable Severe left lower extremity swelling secondary to AV fistula -Patient follows at [facility] with previous bilateral aortofemoral bypass and AAA repair -No DVT found -Postop day 0 from intervention to the left groin--may need staged procedure perDr. Thompson but will not to remain hospitalized Acute on chronic debility -PT/OT following -Lives with son and daughter at baseline and uses a walker -Plan is for discharge to longterm facility possibly tomorrow if stable DM-2 -Oral agents on hold -Continue SSI -Accu-Cheks as ordered -Cardiac/carb controlled diet History of stroke/essential hypertension/hyperlipidemia -Antihypertensives are currently on hold will continue to monitor -Continue home aspirin -Continue home statin Hypothyroidism -Continue home Synthroid History of rectal cancer -Status post chemo and radiation with resection of left colon -Has a permanent colostomy since 2020 -Outpatient follow-up with oncology Peripheral vascular disease -Management per vascular surgery as above GERD -Continue on PPI History of DVT -Restart Eliquis tomorrow if okay with vascular surgery DVT prophylaxis -Will restart Eliquis probably tomorrow if okay with vascular surgery CODE STATUS -Full code Medications at Discharge Home Medications finasteride 5 mg tablet 5 mg PO DAILY prostate 06/22/23 levothyroxine 100 mcg tablet 100 mcg PO DAILY@0600 #30 tabs 01/15/24 pantoprazole 40 mg tablet,delayed release 40 mg PO BID #60 tabs 01/15/24 albuterol sulfate 90 mcg/actuation aerosol inhaler 1 - 2 puff inhalation 4X/DAY PRN wheezing 02/22/24 apixaban 5 mg tablet (Eliquis) 5 mg PO BID 02/22/24 aspirin 81 mg tablet,delayed release 81 mg PO DAILY 07/01/24 ergocalciferol (vitamin D2) 1,250 mcg (50,000 unit) capsule 1,250 mcg PO MO 07/01/24 fluticasone fur. 100 mcg-umeclid 62.5 mcg-vilant 25 mcg inhalat.powder (Trelegy Ellipta) 1 ea inhalation DAILY 07/01/24 icosapent ethyl 1 gram capsule 2 g PO BID 07/01/24 levothyroxine 150 mcg tablet 150 mcg PO DAILY 07/01/24 linagliptin 5 mg tablet (Tradjenta) 5 mg PO DAILY 07/01/24 rosuvastatin 20 mg tablet 20 mg PO QHS 07/01/24 ipratropium 0.5 mg-albuterol 3 mg (2.5 mg base)/3 mL nebulization soln 3 ml inhalation Q6HWA.RT #0 mL 07/07/24 linezolid 600 mg tablet (Zyvox) 600 mg PO BID #18 tabs 07/07/24 nystatin 100,000 unit/gram topical powder (Nyamyc) 1 applic topical TID #0 grams07/07/24 nystatin 100,000 unit/mL oral suspension 100,000 unit PO DAILY #60 mL 07/07/24 oxycodone 5 mg capsule 5 mg PO Q4H PRN pain 2 days #12 caps 07/07/24 Hospital Course Operations - (angioplasty/stent left profunda femoral artery IVUS left profunda, common femoral arteries) Procedures EGD, EKG, Modified Barium Swallow (Recommendations Diet: Minced and Moist Textures and Thin Liquids Comment: intermittent cough and re-swallow frequent oral care Compensatory Strategies: Small Bites, Liquid by Teaspoon Only, Slow Rate, Alternate bites/solids and sips/liquids, Sitting upright and Remain sitting upright for 30 minutes) and - (CT abdomen pelvis/chest x-ray/venous duplex/CT abdomen pelvis) Summary of Care Provided Minutes Spent on Discharge: 39 Hospital Course: Patient is a 74-year-old white male who presented to emergency department at [facility] on 07/01/2024 with chief complaint of dysuria, nausea, and vomiting. Patient has an indwelling Maddox catheter due to urinary retentionthat he changes about every 10 days. Dysuria began the day prior to presentation and then the patient developed nausea and 2 bouts of emesis prior to presentation. At the time of presentation he was living at home with his sonand daughter. At baseline he was utilizing a walker but has been more fatigued. His past medical history is quite complex and family reported that he had worsening left lower extremity swelling that has been gradual over the last several months. With the marked edema there was concern of left lower extremityDVT presently and an ultrasound was done which was negative for DVT. Vital signs on presentation showed a temperature of 97.9, heart rate 106, blood pressure was 150/63, respiratory rate was 18 and pulse ox was 95% on room air. CBC on presentation showed a leukocytosis with a white count of 17 and a left shift with an 87.3% neutrophilia. His chemistry panel showed FIOR with a serum creatinine of 2.13 (baseline 1.4-1.6), hyperkalemia, hyperglycemia, and a lacticacidosis of 2.4. Given his vitals, lactic acidosis and renal function he met criteria for sepsis and was started on broad-spectrum antibiotics. Cultures were obtained. Blood cultures were unremarkable but urine culture showed MRSA with very high colony counts and he was treated with MRSA coverage at the time of discharge was to complete a course of Zyvox for total of 14 days in combination with his hospital antibiotics. CT of his abdomen pelvis showed hydronephrosis and hydroureter of the right kidney which appears to be chronic but was otherwise unremarkable for acute findings. 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 The case was discussed as a transfer was initially planned however the vascular surgeon here, Dr. Thompson, discussed the case with the [facility] vascular surgeon and they felt stenting was appropriate in this setting. He wastaken to the vascular lab on 07/06/2024 at which time arch aortogram with the left lower extremity, angioplasty and stent placement of the left profundofemoral artery with IVUS to the left profunda and common femoral arteries was performed. Plan is for follow-up with Dr. Thompson after time is given to allow swelling to reduce. If swelling does not improve or worsens his office is to be notified by the nursing facility. He was seen by speech therapyas there was concern for right basilar pneumonia at the time of presentation as well and aspiration was of concern. It was recommended that he be on minced andmoist textures with thin liquids and an EGD be performed. EGD was done by Dr. Ramos on 07/04/2024 and demonstrated severe erosive esophagitis, benign-appearingesophageal stenosis which was dilated and chronic duodenitis. The patient did have pending biopsies at the time of discharge and a repeat upper endoscopy was recommended in 1 month to evaluate response. He is to be on Protonix 40 mg p.o.twice daily for the next 8 weeks or until instructed otherwise by gastroenterology. Modifications to his diet were made at the time of discharge and he will continue speech therapy, physical therapy, and Occupational Therapy at the time of discharge. Patient's overall health is extremely poor and he is at extremely high risk for readmission. Discharge diagnoses: Sepsis secondary to UTI in the setting of chronic urinary retention and chronic Maddox Possible aspiration pneumonia Dysphagia Erosive esophagitis Esophageal stenosis FIOR CKD stage IIIb Severe left lower extremity swelling secondary to AV fistula Acute on chronic debility DM-2 History of stroke Essential hypertension Hyperlipidemia Hypothyroidism History of rectal cancer PVD GERD History of DVT Physical Exam Const alert, oriented x3, no apparent distress, average body habitus and no limitations; Negative for healthy appearing or well nourished Constitutional Narrative: Frail-appearing, elderly, Older, white male, sitting up in a chair at the bedside, appears older than stated age, pleasant, interacts appropriately, nontoxic appearing General Appearance: cooperative, comfortable, well kempt and well developed Nutritional Appearance: overweight HEENT normocephalic, head/scalp atraumatic and moist oral mucous membranes HEENT Narrative: Mild hearing loss, Mallampati 1-2, dentition is poor, thrush is present Eyes EOMs intact bilaterally and conjunctivae normal Eyes Narrative: No scleral icterus Neck no lymphadenopathy and supple Neck Narrative: Trachea midline, no thyroid enlargement Resp normal respiratory effort, no retractions, no use of accessory muscles and clearto auscultation bilaterally Resp Narrative: Diffusely diminished but clear Auscultation: Negative for rales, rhonchi or wheezes Cardio regular rate, regular rhythm, S1 normal heart sound, S2 normal heart sound, no murmurs, no rub, no gallops, no clicks and peripheral pulses 2+ throughout GI normal to inspection, nondistended, normoactive bowel sounds, soft to palpation and non-tender GI Narrative: Ostomy left lower quadrant with good output Extremity Extremity Narrative: Decreased pedal pulses, marked left lower extremity edema with normal size rightlower extremity, left lower extremity with severe edema Skin skin turgor normal and no jaundice Neuro oriented x3, CN's II-XII intact bilaterally, moves all extremities and no focal motor deficits Neuro Narrative: Able to move all extremities however difficult with left lower extremity due to in size Sensorium / Orientation: alert Speech: speech normal Psych mental status grossly normal and affect normal Psych Narrative: Extremely pleasant Weight / BMI Weight Weight: 85.8 kg Body Mass Index (BMI) 27.9 ABG / Lab / Microbiology Data 07/07/24 06:07 07/07/24 06:07 Laboratory: Laboratory Results - last 24 hr 07/06/24 12:13: Activated Clotting Time 227 H 07/07/24 06:07: WBC 5.4, RBC 3.88 L, Hgb 11.5 L, Hct 36.1 L, MCV 93.0, MCH 29.6,MCHC 31.9 L, RDW Std Deviation 51.4 H, RDW Coeff of Yanira 15.1 H, Plt Count 109 L,MPV 11.9, Immature Gran % (Auto) 0.900, Neut % (Auto) 72.4 H, Lymph % (Auto) 14.3 L, [place] % (Auto) 9.1, Eos % (Auto) 2.4, Baso % (Auto) 0.9, Absolute Neuts (auto) 3.9, Absolute Lymphs (auto) 0.77 L, Nucleated RBC % 0, Sodium 140, Potassium 3.6, Chloride 106, Carbon Dioxide 23.6, Anion Gap 10, BUN 12, Creatinine 1.54 H, Estim Creat Clear Calc 45.68 L, Est GFR (MDRD) Non-Af 47 L, BUN/Creatinine Ratio 7.8 L, Glucose 88, Calcium 8.6 Microbiology: Microbiology 07/01/24 10:21 Blood Culture (Wb) - Anticubital Left Blood Culture - Final No growth in 5 days. 07/01/24 09:42 Blood Culture (Wb) - Anticubital Left Blood Culture - Final No growth in 5 days. 07/01/24 10:04 Urine Catheter - Maddox Urine Culture - Final Meth. resistant Staph. aureus 07/01/24 11:26 Mucosa - Nose SARS-CoV-2, Influenza & RSV (PCR) - Final D/C Instructions DC O2, CPAP, BIPAP Needs Home O2 Discharge instructions: No Please Follow Up With: Efraín Thompson MD Meaningful Use Info Meaningful Use Meaningful Use Diagnoses (Choose all that apply): None applicable Ischemic Stroke Statin Dosing Therapy Reference: STATIN DOSE THERAPY REFERENCE: * Patients > 75 years receive moderate or high dose statin therapy. * Patients 75 years or YOUNGER should receive HIGH intensity statin dose unless contraindicated. You will be required to document reason for non-treatment if statin daily dose does not meet guidelines. HIGH DOSE STATIN THERAPY DAILY Atorvastatin > than or = to 40 mg Rosuvastatin > than or = to 20 mg Amlodipine + Atorvastatin > than or = to 2.5/40 mg Ezetimibe + Simvastatin 10/80 mg Simvastatin 80mg Discharge Plan Admission Admit Date/Time: 07/01/24 11:19 Primary Reason for Your Visit: Left leg swelling Attending Provider: Ginger Espitia Primary Care Provider: Jenae Santamaria Consulting Providers: Efraín Thompson; Kulwinder De La O Instructions Additional Instructions / Restrictions: Left lower extremity swelling should it is very slowly get better. If it gets worse or does not improve please call Dr. Thompson's office Discharge Orders/Prescriptions Prescriptions: New ipratropium-albuterol 0.5 mg-3 mg(2.5 mg base)/3 mL Solution For Nebulization 3 ml inhalation Q6HWA.RT Qty: 0 0RF nystatin [Nyamyc] 100,000 unit/gram Powder 1 applic topical TID Qty: 0 0RF Protocol: *Topical Application Instructions APPLICATION INSTRUCTIONS: to affected regions linezolid [Zyvox] 600 mg tablet 600 mg PO BID Qty: 18 0RF oxycodone 5 mg capsule 5 mg PO Q4H PRN (Reason: pain) 2 Days Qty: 12 0RF nystatin 100,000 unit/mL suspension 100,000 unit PO DAILY Qty: 60 0RF Rx Instructions: administer 1/2 of dose in each side of the mouth Continued finasteride 5 mg tablet 5 mg PO DAILY levothyroxine 100 mcg Tablet 100 mcg PO DAILY@0600 Qty: 30 2RF pantoprazole 40 mg tablet,delayed release (DR/EC) 40 mg PO BID Qty: 60 2RF albuterol sulfate 90 mcg/actuation HFA aerosol inhaler 1 - 2 puff inhalation 4X/DAY PRN (Reason: wheezing) Eliquis 5 mg Tablet 5 mg PO BID aspirin 81 mg tablet,delayed release (DR/EC) 81 mg PO DAILY ergocalciferol (vitamin D2) 1,250 mcg (50,000 unit) capsule 1,250 mcg PO MO Trelegy Ellipta 100-62.5-25 mcg blister with device 1 ea inhalation DAILY levothyroxine 150 mcg tablet 150 mcg PO DAILY rosuvastatin 20 mg tablet 20 mg PO QHS Tradjenta 5 mg tablet 5 mg PO DAILY icosapent ethyl 1 gram capsule 2 g PO BID Discontinued ferrous sulfate 325 mg (65 mg iron) tablet 325 mg PO BIDCM Qty: 1 0RF amlodipine 5 mg tablet 5 mg PO DAILY Referrals / Follow Up: Jenae Santamaria MD [Primary Care Provider] - In 1 Week (After discharge from longterm facility) Efraín Thompson MD [Med Staff - Active Staff] - Within 2 Weeks David Ramos DO [Med Staff - Active Staff] - See Referral Note (2 to 4 weeks for repeat EGD) Disposition Disposition (needs filled in before D/C Order can be placed): [facility] Charges/Coding Visit Charges Inpatient E&M: 31476 SNF Disch >30 Min 07/07/24 1432 <Electronically signed by Ginger Espitia DO> Cosigner Signature (if applicable): CC: Jenae Santamaria MD; Dr. Ginger Espitia DO~ Signed [facility] Work Phone: [phone] 342-698604-11-2025 Discharge summary [facility] Medical Records Department [address] [place] [id number] Discharge Summary 07/07/24 1230 MR#: [id number] Acct: [id number] Name: EMELIA JOHNSON Rep #:[id number] : 1950 74 From: Ginger Espitia DO PCP: Jenae Santamaria MD Status:ADM IN Location: [place] [address] Providers Date of Admission: 07/01/24 Primary Care Physician: Jenae Santamaria MD Consultations 07/01/24 18:05 Consult: Onc/Wound/passenger agent Routine Comment: Reason for Consult:: COLOSTOMY CARE 07/03/24 10:55 Consult: Gastroenterology Routine Consulting Provider: [facility] Reason for Consult: known to you, here w/ dysphagia and possib aspiration pna, eval for EGD EMERGENT Consult: No Notified: Yes Date Notified: 07/03/24 Time Notified: 10:55 Method of Notification: Text 07/03/24 11:22 Consult: Vascular Surgery Routine Consulting Provider: Efraín Thompson Reason for Consult: abnormal venous duplex US on left EMERGENT Consult: No Notified: Yes Date Notified: 07/03/24 Time Notified: 11:22 Method of Notification: per Dr. De La O Reason For Visit: COMPLICATED UTI W/ CONCERN FOR SEPSIS LEFT LOWER Diagnosis Discharge Diagnosis (1) Femoral arteriovenous fistula, left: Status: Acute Code(s): I77.0 - Arteriovenous fistula, acquired (2) Leukocytosis: Status: Acute Code(s): D72.829 - Elevated white blood cell count, unspecified (3) Acidosis, lactic: Status: Acute Code(s): E87.20 - Acidosis, unspecified (4) Acute UTI: Status: Acute Code(s): N39.0 - Urinary tract infection, site not specified (5) Sepsis: Status: Acute Code(s): A41.9 - Sepsis, unspecified organism (6) Peripheral arterial disease with history of revascularization: Status: Acute Code(s): I73.9 - Peripheral vascular disease, unspecified; Z98.890 - Other specified postprocedural states Plan Sepsis secondary to UTI in the setting of chronic urinary retention/aspiration pneumonia -Patient with lactic acidosis, leukocytosis, tachycardia and tachypnea -CT on presentation showed subtle ground glass opacity in the right lower lobe concerning for acutepneumonia as well as hydronephrosis and hydroureter of the right kidney suspect related to chronic reflux -Patient does have known aspiration issues -Urine culture was positive for MRSA -Continue linezolid to complete antibiotic course given his chronic Maddox and the fact that this rojelio complicated UTI with MRSA Dysphagia -EGD done on 07/04/2024 showed grade D erosive esophagitis that was bleeding, benign-appearing esophageal stenosis that was dilated and chronic duodenitis -Continue speech therapy with diet modifications as recommended Erosive esophagitis/esophageal stenosis -Biopsies are pending -repeat EGD in 1 month -Protonix 40 mg twice daily recommended at discharge FIOR on CKD stage IIIb -Baseline creatinine looks to be between 1.6 and 1.75 -Creatinine on presentation 2.13 -Currently 1.44 and stable Severe left lower extremity swelling secondary to AV fistula -Patient follows at [facility] Main campus with previous bilateral aortofemoral bypass and AAA repair -No DVT found -Postop day 0 from intervention to the left groin--may need staged procedure perDr. Thompson but willnot to remain hospitalized Acute on chronic debility -PT/OT following -Lives with son and daughter at baseline and uses a walker -Plan is for discharge to longterm facility possibly tomorrow if stable DM-2 -Oral agents on hold -Continue SSI -Accu-Cheks as ordered -Cardiac/carb controlled diet History of stroke/essential hypertension/hyperlipidemia -Antihypertensives are currently on hold will continue to monitor -Continue home aspirin -Continue home statin Hypothyroidism -Continue home Synthroid History of rectal cancer -Status post chemo and radiation with resection of left colon -Has a permanent colostomy since 2020 -Outpatient follow-up with oncology Peripheral vascular disease -Management per vascular surgery as above GERD -Continue on PPI History of DVT -Restart Eliquis tomorrow if okay with vascular surgery DVT prophylaxis -Will restart Eliquis probably tomorrow if okay with vascular surgery CODE STATUS -Full code Medications at Discharge Home Medications finasteride 5 mg tablet 5 mg PO DAILY prostate 06/22/23 levothyroxine 100 mcg tablet 100 mcg PO DAILY@0600 #30 tabs 01/15/24 pantoprazole 40 mg tablet,delayed release 40 mg PO BID #60 tabs 01/15/24 albuterol sulfate 90 mcg/actuation aerosol inhaler 1 - 2 puff inhalation 4X/DAY PRN wheezing 02/22/24 apixaban 5 mg tablet (Eliquis) 5 mg PO BID 02/22/24 aspirin 81 mg tablet,delayed release 81 mg PO DAILY 07/01/24 ergocalciferol (vitamin D2) 1,250 mcg (50,000 unit) capsule 1,250 mcg PO MO 07/01/24 fluticasone fur. 100 mcg-umeclid 62.5 mcg-vilant 25 mcg inhalat.powder (Trelegy Ellipta) 1 ea inhalation DAILY 07/01/24 icosapent ethyl 1 gram capsule 2 g PO BID 07/01/24 levothyroxine 150 mcg tablet 150 mcg PO DAILY 07/01/24 linagliptin 5 mg tablet (Tradjenta) 5 mg PO DAILY 07/01/24 rosuvastatin 20 mg tablet 20 mg PO QHS 07/01/24 ipratropium 0.5 mg-albuterol 3 mg (2.5 mg base)/3 mL nebulization soln 3 ml inhalation Q6HWA.RT #0 mL 07/07/24 linezolid 600 mg tablet (Zyvox) 600 mg PO BID #18 tabs 07/07/24 nystatin 100,000 unit/gram topical powder (Nyamyc) 1 applic topical TID #0 grams07/07/24 nystatin 100,000 unit/mL oral suspension 100,000 unit PO DAILY #60 mL 07/07/24 oxycodone 5 mg capsule 5 mg PO Q4H PRN pain 2 days #12 caps 07/07/24 Hospital Course Operations - (angioplasty/stent left profunda femoral artery IVUS left profunda, common femoral arteries) Procedures EGD, EKG, Modified Barium Swallow (Recommendations Diet: Minced and Moist Textures and Thin LiquidsComment: intermittent cough and re-swallow frequent oral care Compensatory Strategies: Small Bites,Liquid by Teaspoon Only, Slow Rate, Alternate bites/solids and sips/liquids, Sitting upright and Remain sitting upright for 30 minutes) and - (CT abdomen pelvis/chest x-ray/venous duplex/CT abdomen pelvis) Summary of Care Provided Minutes Spent on Discharge: 39 Hospital Course: Patient is a 74-year-old white male who presented to emergency department at [facility] on 07/01/2024 with chief complaint of dysuria, nausea, and vomiting. Patient has an indwelling Maddox catheter due to urinary retentionthat he changes about every 10 days. Dysuria began the day prior to presentation and then the patient developed nausea and 2 bouts of emesis prior to presentation.At the time of presentation he was living at home with his sonand daughter. At baseline he was utilizing a walker but has been more fatigued. His past medical history is quite complex and family reported that he had worsening left lower extremity swelling that has been gradual over the last severalmonths. With the marked edema there was concern of left lower extremityDVT presently and an ultrasound was done which was negative for DVT. Vital signs on presentation showed a temperature of 97.9, heart rate 106, blood pressure was 150/63, respiratory rate was 18 and pulse ox was 95% on room air. C BC on presentation showed a leukocytosis with a white count of 17 and a left shift with an 87.3% neutrophilia. His chemistry panel showed FIOR with a serum creatinine of 2.13 (baseline 1.4-1.6), hyperkalemia, hyperglycemia, and a lacticacidosis of 2.4. Given his vitals, lactic acidosis and renal function he met criteria for sepsis and was started on broad-spectrum antibiotics. Cultures were obtained. Blood cultures were unremarkable but urine culture showed MRSA with very high colony counts and he was treated with MRSA coverage at the time of discharge was to complete a course of Zyvox for total of 14 days in combination with his hospital antibiotics. CT of his abdomen pelvis showed hydronephrosis and hydroureter of the right kidney which appears to be chronic but was otherwise unremarkable for acute findings. CTA then pelvis with runoff showed marked edematous left lower extremity with dilation and hypertrophy of the left lower extremity vessels most compatible with left femoral AV mal formation. The case was discussed as a transfer was initially planned however the vascular surgeon here, Dr. Thompson, discussed the case with the [facility] vascular surgeon and they felt stenting was appropriate in this setting. He wastaken to the vascular lab on 07/06/2024 at which time arch aortogram with the left lower extremity, angioplasty and stent placement of the left profundofemoral artery with IVUS to the left profunda and common femoral arteries was performed. Plan is for follow-up with Dr. Thompson after time is given to allow swelling to reduce. If swelling does not improve or worsens his office is to be notified by the nursing facility. He was seen by speech therapyas there was concern for right basilar pneumonia at the time of presentation as well and aspiration was of concern. It was recommended that he be on minced andmoist textures with thin liquids and an EGD be performed. EGD was done by Dr. Ramos on 07/04/2024 and demonstrated severe erosive esophagitis, benign-appearingesophageal stenosis which was dilated and chronic duodenitis. The patient did have pending biopsies at the time of discharge and a repeat upper endoscopy was recommended in 1 month to evaluate response. He is to be on Protonix 40 mg p.o.twice daily for the next 8 weeks or until instructed otherwise by gastroenterology. Modifications to his diet were made at the time of discharge and he will continue speech therapy, physical therapy, and Occupational Therapy at the time of discharge. Patient's overall health is extremely poor and he is at extremely high risk for readmission. Discharge diagnoses: Sepsis secondary to UTI in the setting of chronic urinary retention and chronic Maddox Possible aspiration pneumonia Dysphagia Erosive esophagitis Esophageal stenosis FIOR CKD stage IIIb Severe left lower extremity swelling secondary to AV fistula Acute on chronic debility DM-2 History of stroke Essential hypertension Hyperlipidemia Hypothyroidism History of rectal cancer PVD GERD History of DVT Physical Exam Const alert, oriented x3, no apparent distress, average body habitus and no limitations; Negative for healthy appearing or well nourished Constitutional Narrative: Frail-appearing, elderly, Older, white male, sitting up in a chair at the bedside, appears older than stated age, pleasant, interacts appropriately, nontoxic appearing General Appearance: cooperative, comfortable, well kempt and well developed Nutritional Appearance: overweight HEENT normocephalic, head/scalp atraumatic and moist oral mucous membranes HEENT Narrative: Mild hearing loss, Mallampati 1-2, dentition is poor, thrush is present Eyes EOMs intact bilaterally and conjunctivae normal Eyes Narrative: No scleral icterus Neck no lymphadenopathy and supple Neck Narrative: Trachea midline, no thyroid enlargement Resp normal respiratory effort, no retractions, no use of accessory muscles and clearto auscultation bilaterally Resp Narrative: Diffusely diminished but clear Auscultation: Negative for rales, rhonchi or wheezes Cardio regular rate, regular rhythm, S1 normal heart sound, S2 normal heart sound, no murmurs, no rub, no gallops, no clicks and peripheral pulses 2+ throughout GI normal to inspection, nondistended, normoactive bowel sounds, soft to palpation and non-tender GI Narrative: Ostomy left lower quadrant with good output Extremity Extremity Narrative: Decreased pedal pulses, marked left lower extremity edema with normal size rightlower extremity, left lower extremity with severe edema Skin skin turgor normal and no jaundice Neuro oriented x3, CN's II-XII intact bilaterally, moves all extremities and no focal motor deficits Neuro Narrative: Able to move all extremities however difficult with left lower extremity due to in size Sensorium / Orientation: alert Speech: speech normal Psych mental status grossly normal and affect normal Psych Narrative: Extremely pleasant Weight / BMI Weight Weight: 85.8 kg Body Mass Index (BMI) 27.9 ABG / Lab / Microbiology Data 07/07/24 06:07 07/07/24 06:07 Laboratory: Laboratory Results - last 24 hr 07/06/24 12:13: Activated Clotting Time 227 H 07/07/24 06:07: WBC 5.4, RBC 3.88 L, Hgb 11.5 L, Hct 36.1 L, MCV 93.0, MCH 29.6,MCHC 31.9 L, RDW Std Deviation 51.4 H, RDW Coeff of Yanira 15.1 H, Plt Count 109 L,MPV 11.9, Immature Gran % (Auto) 0.900,Neut % (Auto) 72.4 H, Lymph % (Auto) 14.3 L, [place] % (Auto) 9.1, Eos % (Auto) 2.4, Baso % (Auto) 0.9, Absolute Neuts (auto) 3.9, Absolute Lymphs (auto) 0.77 L, Nucleated RBC % 0, Sodium 140, Potassium3.6, Chloride 106, Carbon Dioxide 23.6, Anion Gap 10, BUN 12, Creatinine 1.54 H, Estim Creat Clear Calc 45.68 L, Est GFR (MDRD) Non-Af 47 L, BUN/Creatinine Ratio 7.8 L, Glucose 88, Calcium 8.6 Microbiology: Microbiology 07/01/24 10:21 Blood Culture (Wb) - Anticubital Left Blood Culture - Final No growth in 5 days. 07/01/24 09:42 Blood Culture (Wb) - Anticubital Left Blood Culture - Final No growth in 5 days. 07/01/24 10:04 Urine Catheter - Maddox Urine Culture - Final Meth. resistant Staph. aureus 07/01/24 11:26 Mucosa - Nose SARS-CoV-2, Influenza & RSV (PCR) - Final D/C Instructions DC O2, CPAP, BIPAP Needs Home O2 Discharge instructions: No Please Follow Up With: Efraín Thompson MD Meaningful Use Info Meaningful Use Meaningful Use Diagnoses (Choose all that apply): None applicable Ischemic Stroke Statin Dosing Therapy Reference: STATIN DOSE THERAPY REFERENCE: * Patients > 75 years receive moderate or high dose statin therapy. * Patients 75 years or YOUNGER should receive HIGH intensity statin dose unless contraindicated. You will be required to document reason for non-treatment if statin daily dose does not meet guidelines. HIGH DOSE STATIN THERAPY DAILY Atorvastatin > than or = to 40 mg Rosuvastatin > than or = to 20 mg Amlodipine + Atorvastatin > than or = to 2.5/40 mg Ezetimibe + Simvastatin 10/80 mg Simvastatin 80mg Discharge Plan Admission Admit Date/Time: 07/01/24 11:19 Primary Reason for Your Visit: Left leg swelling Attending Provider: Ginger Espitia Primary Care Provider: Jenae Santamaria Consulting Providers: Efraín Thompson; Kulwinder De La O Instructions Additional Instructions / Restrictions: Left lower extremity swelling should it is very slowly get better. If it gets worse or does not improve please call Dr. Thompson's office Discharge Orders/Prescriptions Prescriptions: New ipratropium-albuterol 0.5 mg-3 mg(2.5 mg base)/3 mL Solution For Nebulization 3 ml inhalation Q6HWA.RT Qty: 0 0RF nystatin [Nyamyc] 100,000 unit/gram Powder 1 applic topical TID Qty: 0 0RF Protocol: *Topical Application Instructions APPLICATION INSTRUCTIONS: to affected regions linezolid [Zyvox] 600 mg tablet 600 mg PO BID Qty: 18 0RF oxycodone 5 mg capsule 5 mg PO Q4H PRN (Reason: pain) 2 Days Qty: 12 0RF nystatin 100,000 unit/mL suspension 100,000 unit PO DAILY Qty: 60 0RF Rx Instructions: administer 1/2 of dose in each side of the mouth Continued finasteride 5 mg tablet 5 mg PO DAILY levothyroxine 100 mcg Tablet 100 mcg PO DAILY@0600 Qty: 30 2RF pantoprazole 40 mg tablet,delayed release (DR/EC) 40 mg PO BID Qty: 60 2RF albuterol sulfate 90 mcg/actuation HFA aerosol inhaler 1 - 2 puff inhalation 4X/DAY PRN (Reason: wheezing) Eliquis 5 mg Tablet 5 mg PO BID aspirin 81 mg tablet,delayed release (DR/EC) 81 mg PO DAILY ergocalciferol (vitamin D2) 1,250 mcg (50,000 unit) capsule 1,250 mcg PO MO Trelegy Ellipta 100-62.5-25 mcg blister with device 1 ea inhalation DAILY levothyroxine 150 mcg tablet 150 mcg PO DAILY rosuvastatin 20 mg tablet 20 mg PO QHS Tradjenta 5 mg tablet 5 mg PO DAILY icosapent ethyl 1 gram capsule 2 g PO BID Discontinued ferrous sulfate 325 mg (65 mg iron) tablet 325 mg PO BIDCM Qty: 1 0RF amlodipine 5 mg tablet 5 mg PO DAILY Referrals / Follow Up: Jenae Santamaria MD [Primary Care Provider] - In 1 Week (After discharge from longterm facility) Efraín Thompson MD [Med Staff - Active Staff] - Within 2 Weeks David Ramos DO [Med Staff - Active Staff] - See Referral Note (2 to 4 weeks for repeat EGD) Disposition Disposition (needs filled in before D/C Order can be placed): [facility] Charges/Coding Visit Charges Inpatient E&M: 88154 SNF Disch >30 Min 07/07/24 1432 Cosigner Signature (if applicable): CC: Jenae Santamaria MD; Dr. Ginger Espitia DO~ Signed [facility]2025 Discharge summary Author Ginger Espitia [facility] Note Date/Time July 07, 2024 12: 22pm [facility] Medical Records Department [address] [place] [address] Transfer to [facility] MR#: [id number] Acct: [id number] Name: EMELIA JOHNSON Rep #:[id number] : 1950 74 From: Ginger Espitia DO PCP: Jenae Santamaria MD Status:ADM IN Certification of patient admission REQUIRED AT TIME OF ADMISSION. I CERTIFY THAT POST-HOSPITAL ECF SERVICES ARE REQUIRED TO BE GIVEN ON AN IN-PATIENT BASIS BECAUSE OF THE ABOVE NAMED PATIENT'S NEED FOR GROUP HOME CARE ON A CONTINUING BASIS FOR THE CONDITION(S) FOR WHICH HE/SHE WAS RECEIVING IN-PATIENT HOSPITAL SERVICES PRIOR TO HIS/HER TRANSFER TO THE F. 07/07/24 1222<Electronically signed by Ginger Espitia DO> Diet Diet Order/Speech Therapy: 07/07/24 08:37 Diet: Regular - General Food consistency:: Pureed Liquid Consistency:: Regular/Thin Type of Dietary Supplement:: fort pudd w/ L & D Diet Comments: TOTAL FEED, liquids by tsp, alt bites/sips, meds crushed in Routine Orders/Code Status Suppository Frequency: Daily PRN Routine Lab Work: CBC (1 week) and BMP (1 week) Code Status: Full Code DC O2, CPAP, BIPAP needs Home O2 Discharge instructions: No Wound(s) LT FOREARM: Wound Type: Skin Tear LAC: Wound Type: Puncture Suggestions for Active Care Change Position every (hours): 2 Hours to sit in a chair: 3 Times a day to sit in chair: 2 Therapies Weight Bearing: Weight bearing as tolerated Extremity Affected:: Bilateral Lower Physical Therapy: Eval and Treat Occupational Therapy: Eval and Treat Speech Therapy: Eval and Treat Problem/Diagnosis (1) Femoral arteriovenous fistula, left: Status: Acute Code(s): I77.0 - Arteriovenous fistula, acquired (2) Leukocytosis: Status: Acute Code(s): D72.829 - Elevated white blood cell count, unspecified (3) Acidosis, lactic: Status: Acute Code(s): E87.20 - Acidosis, unspecified (4) Acute UTI: Status: Acute Code(s): N39.0 - Urinary tract infection, site not specified (5) Sepsis: Status: Acute Code(s): A41.9 - Sepsis, unspecified organism Allergies/Procedures Done in Hospital Allergies No Known Allergies Allergy (Verified 07/01/24 13:29) Procedures: EGD and EKG Type of Care/Length of Stay Estimated LOS: Convalescent Care Less Than 30 days Type of Care Needed: Skilled Rehab Potential: Fair Prognosis: Fair Additional Orders/Day of Discharge Additional Orders: Please let Dr. Thompson office know if the swelling in his LLE is worsening the expectation is slow improvement with time Day of Discharge: 07/07/24 Dietary and Speech Recommendations Dietitian Recommendations/Changes: Will continue regular diet with consistency/texture as per OFFICE ASSISTANCE and fortified pudding w/ lunch and dinner. Additional ONS as needed once PO established with meals. Speech Linguistic Eval Summary: Recommendations Diet: Minced and Moist Textures and Thin Liquids Comment: intermittent cough and re-swallow frequent oral care Compensatory Strategies: Small Bites, Liquid by Teaspoon Only, Slow Rate, Alternate bites/solids and sips/liquids, Sitting upright and Remain sitting upright for 30 minutes after PO intake Supervision: 1:1 Direct Supervision (Assist feeding as needed ) Recommend Repeat Modified Barium Swallow: TBD Need for Skilled Speech Therapy Services: Yes Comment: Continued dysphagia therapy services during acute stay and at discharge. POC to include the following... -Train the patient and staff in strategies to decrease risk for aspiration and reflux aspiration. Will recommend the patient for a bolus control cup (5cc) at next level of care. -Train the patient in oropharyngeal strengthening (lingual resistance, effortful, Ai, Tres). -Ongoing assessment of diet tolerance. Recommended Referrals: GI Consult (GI already consulted for consideration for repeat EGD.) Education Completed: 1. Described result of evaluation., 2. Pt understands evaluation & agrees with goals and treatment plan. and 7. Pt requires further education on strategies & risks. Status Active ST Patient: Active Contact Information [facility] Speech Therapy:: Ya Lua M.A. [facility] Speech-Language Pathologist [facility] [address] [place] [address] [email or web address] [phone] Follow Up Care Please follow up with your Primary Care Physician in: 1 week after d/c from SNF Please Follow Up With: Efraín Thompson MD When: 1-2 weeks Discharge Plan Admission Admit Date/Time: 07/01/24 11:19 Attending Provider: Ginger Espitia Primary Care Provider: Jenae Santamaria Consulting Providers: Efraín Thompson; Kulwinder De La O Discharge Orders/Prescriptions Prescriptions: No Action finasteride 5 mg tablet 5 mg PO DAILY ferrous sulfate 325 mg (65 mg iron) tablet 325 mg PO BIDCM Qty: 1 0RF levothyroxine 100 mcg Tablet 100 mcg PO DAILY@0600 Qty: 30 2RF pantoprazole 40 mg tablet,delayed release (DR/EC) 40 mg PO BID Qty: 60 2RF albuterol sulfate 90 mcg/actuation HFA aerosol inhaler 1 - 2 puff inhalation 4X/DAY PRN (Reason: wheezing) Eliquis 5 mg Tablet 5 mg PO BID amlodipine 5 mg tablet 5 mg PO DAILY aspirin 81 mg tablet,delayed release (DR/EC) 81 mg PO DAILY ergocalciferol (vitamin D2) 1,250 mcg (50,000 unit) capsule 1,250 mcg PO MO Trelegy Ellipta 100-62.5-25 mcg blister with device 1 ea inhalation DAILY levothyroxine 150 mcg tablet 150 mcg PO DAILY rosuvastatin 20 mg tablet 20 mg PO QHS Tradjenta 5 mg tablet 5 mg PO DAILY icosapent ethyl 1 gram capsule 2 g PO BID Referrals / Follow Up: Jenae Santamaria MD [Primary Care Provider] - 07/07/24 1222 <Electronically signed by Ginger Espitia DO> Cosigner Signature (if applicable): CC: Jenae Santamaria MD; Dr. Kulwinder De La O DO; Dr. Efraín Thompson MD ~ [facility] Work Phone: [phone] [facility]2025 Discharge summary [facility] Medical Records Department [address] [place] [id number] Transfer to Extended Care MR#: [id number] Acct: [id number] Name: EMELIA JOHNSON Rep #:[id number] : 1950 74 From: Ginger Espitia DO PCP: Jenae Santamaria MD Status:ADM IN Certification of patient admission REQUIRED AT TIME OF ADMISSION. I CERTIFY THAT POST-HOSPITAL ECF SERVICES ARE REQUIRED TO BE GIVEN ON AN IN-PATIENT BASIS BECAUSE OF THE ABOVE NAMED PATIENT'S NEED FOR GROUP HOME CARE ON A CONTINUING BASIS FOR THE CONDITION(S) FOR WHICH HE/SHE WAS RECEIVING IN-PATIENT HOSPITAL SERVICES PRIOR TO HIS/HER TRANSFER TO THE ECF. 07/07/24 1222 Diet Diet Order/Speech Therapy: 07/07/24 08:37 Diet: Regular - General Food consistency:: Pureed Liquid Consistency:: Regular/Thin Type of Dietary Supplement:: fort pudd w/ L & D Diet Comments: TOTAL FEED, liquids by tsp, alt bites/sips, meds crushed in Routine Orders/Code Status Suppository Frequency: Daily PRN Routine Lab Work: CBC (1 week) and BMP (1 week) Code Status: Full Code DC O2, CPAP, BIPAP needs Home O2 Discharge instructions: No Wound(s) LT FOREARM: Wound Type: Skin Tear LAC: Wound Type: Puncture Suggestions for Active Care Change Position every (hours): 2 Hours to sit in a chair: 3 Times a day to sit in chair: 2 Therapies Weight Bearing: Weight bearing as tolerated Extremity Affected:: Bilateral Lower Physical Therapy: Eval and Treat Occupational Therapy: Eval and Treat Speech Therapy: Eval and Treat Problem/Diagnosis (1) Femoral arteriovenous fistula, left: Status: Acute Code(s): I77.0 - Arteriovenous fistula, acquired (2) Leukocytosis: Status: Acute Code(s): D72.829 - Elevated white blood cell count, unspecified (3) Acidosis, lactic: Status: Acute Code(s): E87.20 - Acidosis, unspecified (4) Acute UTI: Status: Acute Code(s): N39.0 - Urinary tract infection, site not specified (5) Sepsis: Status: Acute Code(s): A41.9 - Sepsis, unspecified organism Allergies/Procedures Done in Hospital Allergies No Known Allergies Allergy (Verified 07/01/24 13:29) Procedures: EGD and EKG Type of Care/Length of Stay Estimated LOS: Convalescent Care Less Than 30 days Type of Care Needed: Skilled Rehab Potential: Fair Prognosis: Fair Additional Orders/Day of Discharge Additional Orders: Please let Dr. Thompson office know if the swelling in his LLE is worsening the expectation is slow improvement with time Day of Discharge: 07/07/24 Dietary and Speech Recommendations Dietitian Recommendations/Changes: Will continue regular diet with consistency/texture as per OFFICE ASSISTANCE and fortified pudding w/ lunch and dinner. Additional ONS as needed once PO established with meals. Speech Linguistic Eval Summary: Recommendations Diet: Minced and Moist Textures and Thin Liquids Comment: intermittent cough and re-swallow frequent oral care Compensatory Strategies: Small Bites, Liquid by Teaspoon Only, Slow Rate, Alternate bites/solids and sips/liquids, Sitting upright and Remain sitting upright for 30 minutes after PO intake Supervision: 1:1 Direct Supervision (Assist feeding as needed ) Recommend Repeat Modified Barium Swallow: TBD Need for Skilled Speech Therapy Services: Yes Comment: Continued dysphagia therapy services during acute stay and at discharge. POC to include the following... -Train the patient and staff in strategies to decrease risk for aspiration and reflux aspiration. Will recommend the patient for a bolus control cup (5cc) at next level of care. -Train the patient in oropharyngeal strengthening (lingual resistance, effortful, Ai, Tres). -Ongoing assessment of diet tolerance. Recommended Referrals: GI Consult (GI already consulted for consideration for repeat EGD.) Education Completed: 1. Described result of evaluation., 2. Pt understands evaluation & agrees with goals and treatment plan. and 7. Pt requires further education on strategies & risks. Status Active ST Patient: Active Contact Information [facility] Speech Therapy:: Ya Lua M.A. [facility] Speech-Language Pathologist [facility] [address] [place] [address] [email or web address] [phone] Follow Up Care Please follow up with your Primary Care Physician in: 1 week after d/c from SNF Please Follow Up With: Efraín Thompson MD When: 1-2 weeks Discharge Plan Admission Admit Date/Time: 07/01/24 11:19 Attending Provider: Ginger Espitia Primary Care Provider: Jenae Santamaria Consulting Providers: Efraín Thompson; Kulwinder De La O Discharge Orders/Prescriptions Prescriptions: No Action finasteride 5 mg tablet 5 mg PO DAILY ferrous sulfate 325 mg (65 mg iron) tablet 325 mg PO BIDCM Qty: 1 0RF levothyroxine 100 mcg Tablet 100 mcg PO DAILY@0600 Qty: 30 2RF pantoprazole 40 mg tablet,delayed release (DR/EC) 40 mg PO BID Qty: 60 2RF albuterol sulfate 90 mcg/actuation HFA aerosol inhaler 1 - 2 puff inhalation 4X/DAY PRN (Reason: wheezing) Eliquis 5 mg Tablet 5 mg PO BID amlodipine 5 mg tablet 5 mg PO DAILY aspirin 81 mg tablet,delayed release (DR/EC) 81 mg PO DAILY ergocalciferol (vitamin D2) 1,250 mcg (50,000 unit) capsule 1,250 mcg PO MO Trelegy Ellipta 100-62.5-25 mcg blister with device 1 ea inhalation DAILY levothyroxine 150 mcg tablet 150 mcg PO DAILY rosuvastatin 20 mg tablet 20 mg PO QHS Tradjenta 5 mg tablet 5 mg PO DAILY icosapent ethyl 1 gram capsule 2 g PO BID Referrals / Follow Up: Jenae Santamaria MD [Primary Care Provider] - 07/07/24 1222 Cosigner Signature (if applicable): CC: Jenae Santamaria MD; Dr. Kulwinder De La O DO; Dr. Efraín Thompson MD ~ [facility]04-10-2025 Progress note Author Ginger Espitia [facility] Note Date/Time July 06, 2024 5:1 7pm [facility] Medical Records Department [address] [place] [address] Progress Note - Hospitalist 07/06/24 0713 MR#: [id number] Acct: [id number] Name: EMELIA JOHNSON Rep #:[id number] : 1950 74 From: Ginger Espitia DO PCP: Jenae Santamaria MD Status:ADM IN Location: [place] [address] Reason for Visit Reason for Visit: Nausea/vomiting/dysuria Subjective Subjective OR today to address the fistula in his left groin. I did discuss case with Dr. Thompson afterwards and he states it is complex and may need more intervention butnot acutely while he is hospitalized and okay from his standpoint to discharge to SNF when accepted. Patient a bit confused after the case. Objective Data Objective Data Vital Signs: Vital Signs Temp Pulse Resp BP Pulse Ox O2 Del Method O2 Flow Rate 97.3 F L 83 20 H 147/70 H 95 Room Air 2 07/06/24 06:41 07/06/24 07:06 07/06/24 07:06 07/06/24 06:41 07/06/24 07:06 07/06/24 07:06 07/04/24 10:00 Oxygen Flow Rate (L/min) 2 Oxygen Delivery Method Room Air Weight: 85.8 kg Body Mass Index (BMI) 27.9 Intake & Output: Intake and Output for Last 24 Hours 07/04/24 07/05/24 07/06/24 23:59 23:59 23:59 Intake Total 240 / 240 700 / 700 300 / 300 Output Total 855 / 855 1055 / 1055 250 / 250 Balance -615 / -615 -355 / -355 50 / 50 Lab / Micro Data 07/06/24 03:43 07/06/24 03:43 Labs: Laboratory Results - last 24 hr 07/06/24 03:43: WBC 5.0, RBC 4.23 L, Hgb 12.7 L, Hct 39.3 L, MCV 92.9, MCH 30.0,MCHC 32.3, RDW Std Deviation 51.1 H, RDW Coeff of Yanira 15.0 H, Plt Count 115 L, MPV 11.7, Immature Gran % (Auto) 0.600, Neut % (Auto) 60.1, Lymph % (Auto) 24.4,[place] % (Auto) 9.7, Eos % (Auto) 4.4, Baso % (Auto) 0.8, Absolute Neuts (auto) 3.0, Absolute Lymphs (auto) 1.21, Nucleated RBC % 0, Sodium 139, Potassium 3.5, Chloride 106, Carbon Dioxide 20.8 L, Anion Gap 13, BUN 13, Creatinine 1.44 H, Estim Creat Clear Calc 48.85 L, Est GFR (MDRD) Non-Af 51 L, BUN/Creatinine Ratio 9.1 L, Glucose 111 H, Calcium 9.1 Micro: Microbiology 07/01/24 10:21 Blood Culture (Wb) - Anticubital Left Blood Culture - Preliminary No growth in 48 hours. 07/01/24 09:42 Blood Culture (Wb) - Anticubital Left Blood Culture - Preliminary No growth in 48 hours. 07/01/24 10:04 Urine Catheter - Maddox Urine Culture - Final Meth. resistant Staph. aureus 07/01/24 11:26 Mucosa - Nose SARS-CoV-2, Influenza & RSV (PCR) - Final Physical Exam Const alert, oriented x3, no apparent distress and average body habitus; Negative for healthy appearing Constitutional Narrative: Frail-appearing, elderly, white male, lying in bed just returned from procedure,family at bedside, appears comfortable, nontoxic, mildly confused General Appearance: cooperative and comfortable Orientation / Consciousness: confused HEENT normocephalic, head/scalp atraumatic and moist oral mucous membranes HEENT Narrative: Dentition is poor, Mallampati is 1-2, no thrush Resp normal respiratory effort, no retractions, no use of accessory muscles and clearto auscultation bilaterally Resp Narrative: Diffusely diminished but clear Auscultation: Negative for rales, rhonchi or wheezes Cardio regular rate, regular rhythm, S1 normal heart sound, S2 normal heart sound, no murmurs, no rub, no gallops and no clicks GI normal to inspection, nondistended, normoactive bowel sounds, soft to palpation and non-tender GI Narrative: Ostomy left lower quadrant with good output Extremity Extremity Narrative: Decreased pedal pulses, marked left lower extremity edema with normal size rightlower extremity, left lower extremity is wrapped in a Bautista bandage postoperatively Neuro moves all extremities and no focal motor deficits Neuro Narrative: Able to move all extremities however difficult with left lower extremity due to in size Sensorium / Orientation: awake, alert and oriented to person Speech: speech normal Psych mental status grossly normal and affect normal Psych Narrative: Extremely pleasant Assessment & Plan Assessment/Plan (1) Femoral arteriovenous fistula, left: (2) Leukocytosis: (3) Acidosis, lactic: (4) Acute UTI: (5) Sepsis: PLAN: Plan Sepsis secondary to UTI in the setting of chronic urinary retention/aspiration pneumonia -Patient with lactic acidosis, leukocytosis, tachycardia and tachypnea -CT on presentation showed subtle ground glass opacity in the right lower lobe concerning for acute pneumonia as well as hydronephrosis and hydroureter of the right kidney suspect related to chronic reflux -Patient does have known aspiration issues -Urine culture was positive for MRSA -Continue linezolid to complete antibiotic course given his chronic Maddox and the fact that this is a complicated UTI with MRSA Dysphagia -EGD done on 07/04/2024 showed grade D erosive esophagitis that was bleeding, benign-appearing esophageal stenosis that was dilated and chronic duodenitis -Continue speech therapy with diet modifications as recommended Erosive esophagitis/esophageal stenosis -Biopsies are pending -repeat EGD in 1 month -Protonix 40 mg twice daily recommended at discharge FIOR on CKD stage IIIb -Baseline creatinine looks to be between 1.6 and 1.75 -Creatinine on presentation 2.13 -Currently 1.44 and stable Severe left lower extremity swelling secondary to AV fistula -Patient follows at [facility] with previous bilateral aortofemoral bypass and AAA repair -No DVT found -Postop day 0 from intervention to the left groin--may need staged procedure perDr. Thompson but will not to remain hospitalized Acute on chronic debility -PT/OT following -Lives with son and daughter at baseline and uses a walker -Plan is for discharge to longterm facility possibly tomorrow if stable DM-2 -Oral agents on hold -Continue SSI -Accu-Cheks as ordered -Cardiac/carb controlled diet History of stroke/essential hypertension/hyperlipidemia -Antihypertensives are currently on hold will continue to monitor -Continue home aspirin -Continue home statin Hypothyroidism -Continue home Synthroid History of rectal cancer -Status post chemo and radiation with resection of left colon -Has a permanent colostomy since 2020 -Outpatient follow-up with oncology Peripheral vascular disease -Management per vascular surgery as above GERD -Continue on PPI History of DVT -Restart Eliquis tomorrow if okay with vascular surgery DVT prophylaxis -Will restart Eliquis probably tomorrow if okay with vascular surgery CODE STATUS -Full code Charges/Coding Visit Charges Inpatient E&M: 32166 Subs Hosp L2 07/06/24 1717 <Electronically signed by Ginger Espitia DO> Cosigner Signature (if applicable): CC: ~ Signed [facility] Work Phone: [phone]) 898-331604-10-2025 Procedure note [facility] Medical Records Department [address] [place] [address] Operative Report 07/06/24 1554 MR#: [id number] Acct: [id number] Name: EMELIA JOHNSON Rep #:[id number] : 1950 74 From: Efraín Thompson MD PCP: Jenae Santamaria MD Status:ADM IN Location: [place] [address] 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 Post-Operative Diagnosis: same Surgery/Procedure Performed: arch aortogram left lower extremity angiogram angioplasty/stent left profunda femoral artery IVUS left profunda, common femoral arteries optimization engineer: Yes Social Work Professor: Brenda Boston Tasks completed by special ed assistant: Opening, Closing, Opening & closing and Retracting Type of Anesthesia: General RN Documented Start/Stop Times: Operation Date: 07/06/24 11:00 Case Time Into Pre-Op 07/06/24 09:46 Out of Pre-Op 07/06/24 11:55 Into Recovery 07/06/24 14:53 Out of Recovery 07/06/24 15:59 Procedure Start Time: 12:30 Procedure Stop Time: 14:30 Select all DRAINS/GRAFTS/IMPLANTS that apply: Implanted device Implanted device details: Central viabahn 6 x 2.5 Estimated Blood Loss: 9 Specimen collected: No Description of surgery: HPI: Patient is a 74-year-old male with worsening left lower extremity edema andimaging which revealed arteriovenous fistula adjacent to the common femoral vessels. Difficult to determine the exact location of the communication betweenvessels but it was suspected that was from the lateral profunda branch. He has had a prior aortobifemoral bypass and it is felt that this would be best treatedwith endovascular exclusion if possible. Given his prior bypass graft access via the left brachial arterywill be performed. Description of procedure: Upon obtaining form consent and verification correct patient procedure site patient was taken to the Fiber Optics Technician where he was placed under general anesthesia. He was then positioned prepped and draped in usual sterile fashion a time was performed. Transverse incision was made1 fingerbreadth superior to the antecubital crease and Bovie electrocautery was dissect down through subcutaneous tissue. Self-retaining retractors put in position further dissection was carried downto the brachial artery was visualized. This point sharp dissection was dissected free proximal and distal and a right angle used to place vessel loop. The vessel was then accessed with a micropuncture needle and wire exchanged for a micropuncture sheath. Through the micropuncture sheath a Bentson wire was advanced and navigated into the subclavian artery. The micropuncture sheath was exchanged for a short 5 Cypriot sheath and patient was then heparinized with subsequent heparin dosing based on ACT results. A pigtail catheter was then advanced over the Bentson wire and navigated into the aorticarch with subtraction angiography was performed revealing a type I arch though it was fairly tortuous. Using the pigtail and Bentson wire we ultimately navigated into the descending thoracic aorta. Wire and catheter then advanced into the abdominal aorta and ultimately into the leftlimb of the aortobifemoral graft. From this position subtraction angiography ofthe left lower extremity was performed which revealed very robust arteriovenous fistula with multiple arterial and venous branches filling throughout the proximal thigh. A glide advantage wire was then advanced through the catheter both the catheter and short 5 Cypriot sheath exchanged for a 6 Cypriot Halo sheathwhich was advanced over the wire and into the distal bypass limb. From this position further magnified imaging was obtained and using a quick cross catheterand the glide advantage wire we navigated into the profunda artery and ultimately into the lateral profunda artery. From this position additional imaging was obtained which appeared to show either fistula connection or large collateral branch that was itself feeding into the fistula from the mid lateral profunda branch. A command 18 wire was then advanced through thecatheter and the quick cross catheter exchanged for an intravascular ultrasound probe which was then utilized to assess the lateral profunda for accurate sizing and branch origin position. It was felt that there were 2 vessels that were feeding potentially toward this fistula identified in the segment and then a 5 mm x 2.5 Central Viabahn self-expanding stent would adequately cover this origin of the fistula. The ultrasound probe was then withdrawn and the Viabahn advanced over the wire and positioned with its proximal edge at the origin of the lateral profunda branch. The stent was then deployed and postdilated with a 6 mm x 2 angioplasty balloon. Repeat angiography revealed satisfactory occlusion of thisparticular source of the fistula and there was significant decrease in the overall filling in the venous system however there did not appear to be a secondary fistula communication that actually appeared to center around the common femoral vein which itself was not very well-opacified. There also was novenous egress from the leg via the iliac vein and the majority of contrast filled into the profunda and femoral veins as well as the great saphenous vein and a caudal direction beforeexiting via collateral branches. We then redirected our wire into the main profunda branch and advanced a quick cross catheter into the mid vessel with further subtraction angiography images obtainedwhich did not appear to show any direct communication between the profunda and the venous system and that in fact contrast would exit into large caliber collaterals that flowed toward the pelvis before ultimately draining into the venous system adjacent to the common femoral vein. Given that there was no close proximity of the fistula to the main profunda branch and the amountof tortuosity withinthe collaterals is felt that no further endovascular efforts should be undertaken and that either treatment of the venous outflow obstruction or direct surgical ligation of the fistula communication at the common femoral would be the most successful means of improving his symptoms. Wire and sheath were then withdrawn and the brachial artery occluded with Vesseloops. The vessel was then repaired with interrupted 6-0 Prolene transverse orientation. Prior to completing suture line vessels are backbled after completing suture clamps removed and satisfactory stasis was noted. Thereis a palpable pulse in the brachial artery and appropriate Doppler signal. The incision was closed with 3-0 Vicryl followed by 4 Monocryl and Dermabond for theskin. At the conclusion of case the patient was taken to the recovery room withanticipated return to the PCU. Surgical Findings: multiple arterial collateral vessels from main and lateral profunda branches giving rise to fistulacommunication at common femoral vein; improved after covered stent placement though still with filling from distal main profunda collaterals Complications Complications: Yes Complication Details: incomplete exclusion of fistula branches 07/06/241816 Cosigner Signature (if applicable): CC: Jenae Santamaria MD; Dr. Kulwinder De La O DO; Dr. Efraín Thompson MD~ Signed [facility]04-10-2025 Progress note [facility] Medical Records Department [address] [place] [address] Progress Note - Hospitalist 07/06/24 0713 MR#: [id number] Acct: [id number] Name: EMELIA JOHNSON Rep #:[id number] : 1950 74 From: Ginger Espitia DO PCP: Jenae Santamaria MD Status:ADM IN Location: [place] [id number] Reason for Visit Reason for Visit: Nausea/vomiting/dysuria Subjective Subjective OR today to address the fistula in his left groin. I did discuss case with Dr. Thompson afterwards and he states it is complex and may need more intervention butnot acutely while he is hospitalized andokay from his standpoint to discharge to SNF when accepted. Patient a bit confused after the case. Objective Data Objective Data Vital Signs: Vital Signs Temp Pulse Resp BP Pulse Ox O2 Del Method O2 Flow Rate 97.3 F L 83 20 H 147/70 H 95 Room Air 2 07/06/24 06:41 07/06/24 07:06 07/06/24 07:06 07/06/24 06:41 07/06/24 07:06 07/06/24 07:06 07/04/24 10:00 Oxygen Flow Rate (L/min) 2 Oxygen Delivery Method Room Air Weight: 85.8 kg Body Mass Index (BMI) 27.9 Intake & Output: Intake and Output for Last 24 Hours 07/04/24 07/05/24 07/06/24 23:59 23:59 23:59 Intake Total 240 / 240 700 / 700 300 / 300 Output Total 855 / 855 1055 / 1055 250 / 250 Balance -615 / -615 -355 / -355 50 / 50 Lab / Micro Data 07/06/24 03:43 07/06/24 03:43 Labs: Laboratory Results - last 24 hr 07/06/24 03:43: WBC 5.0, RBC 4.23 L, Hgb 12.7 L, Hct 39.3 L, MCV 92.9, MCH 30.0,MCHC 32.3, RDW Std Deviation 51.1 H, RDW Coeff of Yanira 15.0 H, Plt Count 115 L, MPV 11.7, Immature Gran % (Auto) 0.600, Neut % (Auto) 60.1, Lymph % (Auto) 24.4,[place] % (Auto) 9.7, Eos % (Auto) 4.4, Baso % (Auto) 0.8, Absolute Neuts (auto) 3.0, Absolute Lymphs (auto) 1.21, Nucleated RBC % 0, Sodium 139, Potassium 3.5, Chloride 106, Carbon Dioxide 20.8 L, Anion Gap 13, BUN 13, Creatinine 1.44 H, Estim Creat Clear Calc 48.85 L, Est GFR (MDRD) Non-Af 51 L, BUN/Creatinine Ratio 9.1 L, Glucose 111 H, Calcium 9.1 Micro: Microbiology 07/01/24 10:21 Blood Culture (Wb) - Anticubital Left Blood Culture - Preliminary No growth in 48 hours. 07/01/24 09:42 Blood Culture (Wb) - Anticubital Left Blood Culture - Preliminary No growth in 48 hours. 07/01/24 10:04 Urine Catheter - Maddox Urine Culture - Final Meth. resistant Staph. aureus 07/01/24 11:26 Mucosa - Nose SARS-CoV-2, Influenza & RSV (PCR) - Final Physical Exam Const alert, oriented x3, no apparent distress and average body habitus; Negative for healthy appearing Constitutional Narrative: Frail-appearing, elderly, white male, lying in bed just returned from procedure,family at bedside, appears comfortable, nontoxic, mildly confused General Appearance: cooperative and comfortable Orientation / Consciousness: confused HEENT normocephalic, head/scalp atraumatic and moist oral mucous membranes HEENT Narrative: Dentition is poor, Mallampati is 1-2, no thrush Resp normal respiratory effort, no retractions, no use of accessory muscles and clearto auscultation bilaterally Resp Narrative: Diffusely diminished but clear Auscultation: Negative for rales, rhonchi or wheezes Cardio regular rate, regular rhythm, S1 normal heart sound, S2 normal heart sound, no murmurs, no rub, no gallops and no clicks GI normal to inspection, nondistended, normoactive bowel sounds, soft to palpation and non-tender GI Narrative: Ostomy left lower quadrant with good output Extremity Extremity Narrative: Decreased pedal pulses, marked left lower extremity edema with normal size rightlower extremity, left lower extremity is wrapped in a Bautista bandage postoperatively Neuro moves all extremities and no focal motor deficits Neuro Narrative: Able to move all extremities however difficult with left lower extremity due to in size Sensorium / Orientation: awake, alert and oriented to person Speech: speech normal Psych mental status grossly normal and affect normal Psych Narrative: Extremely pleasant Assessment & Plan Assessment/Plan (1) Femoral arteriovenous fistula, left: (2) Leukocytosis: (3) Acidosis, lactic: (4) Acute UTI: (5) Sepsis: PLAN: Plan Sepsis secondary to UTI in the setting of chronic urinary retention/aspiration pneumonia -Patient with lactic acidosis, leukocytosis, tachycardia and tachypnea -CT on presentation showed subtle ground glass opacity in the right lower lobe concerning for acutepneumonia as well as hydronephrosis and hydroureter of the right kidney suspect related to chronic reflux -Patient does have known aspiration issues -Urine culture was positive for MRSA -Continue linezolid to complete antibiotic course given his chronic Maddox and the fact that this rojelio complicated UTI with MRSA Dysphagia -EGD done on 07/04/2024 showed grade D erosive esophagitis that was bleeding, benign-appearing esophageal stenosis that was dilated and chronic duodenitis -Continue speech therapy with diet modifications as recommended Erosive esophagitis/esophageal stenosis -Biopsies are pending -repeat EGD in 1 month -Protonix 40 mg twice daily recommended at discharge FIOR on CKD stage IIIb -Baseline creatinine looks to be between 1.6 and 1.75 -Creatinine on presentation 2.13 -Currently 1.44 and stable Severe left lower extremity swelling secondary to AV fistula -Patient follows at [facility] with previous bilateral aortofemoral bypass and AAA repair -No DVT found -Postop day 0 from intervention to the left groin--may need staged procedure perDr. Thompson but willnot to remain hospitalized Acute on chronic debility -PT/OT following -Lives with son and daughter at baseline and uses a walker -Plan is for discharge to longterm facility possibly tomorrow if stable DM-2 -Oral agents on hold -Continue SSI -Accu-Cheks as ordered -Cardiac/carb controlled diet History of stroke/essential hypertension/hyperlipidemia -Antihypertensives are currently on hold will continue to monitor -Continue home aspirin -Continue home statin Hypothyroidism -Continue home Synthroid History of rectal cancer -Status post chemo and radiation with resection of left colon -Has a permanent colostomy since 2020 -Outpatient follow-up with oncology Peripheral vascular disease -Management per vascular surgery as above GERD -Continue on PPI History of DVT -Restart Eliquis tomorrow if okay with vascular surgery DVT prophylaxis -Will restart Eliquis probably tomorrow if okay with vascular surgery CODE STATUS -Full code Charges/Coding Visit Charges Inpatient E&M: 40446 Subs Hosp L2 07/06/24 1717 Cosigner Signature (if applicable): CC: ~ Signed [facility]04-10-2025 Consult note Author Jorge Luis Acosta [facility] Note Date/Time July 06, 2024 2:5 7pm [facility] Medical Records Department [address] [place] [address] Anesthesia Postop Eval I 07/06/241454 MR#: [id number] Acct: [id number] Name: EMELIA JOHNSON Rep #:[id number] : 1950 74 From: Jorge Luis Acosta CRNA PCP: Jenae Santamaria MD Status:ADM IN Y Race: C Location: [place] [address] 0 Anesthesia: Postop Eval I Current Vital Signs Temperature: 96.9 F Pulse Rate: 69 Blood Pressure: 138/79 Respiratory Rate: 16 Pulse Ox: 98 Oxygen Delivery Method: Nasal Cannula Oxygen Flow Rate (L/min): 2 Assessment Airway patent: Yes Spontaneous unlabored respirations: Yes Mental status: Awake and Calm nausea: No Vomiting: No Anesthesia Complication: No Fluid Hydration Crystalloid volume administer (ml): 1,300 Total IV fluid infused: 1,300 Progress Note Anesthesia document: Postop Eval 1 completed: Yes 07/06/241456 <Electronically signed by Jorge Luis renee CRNA> Date _ Jorge Luis Acosta CRNA Cosigner Signature: Date CC: ~ Signed [facility] Work Phone: 1(783) 794-525604-10-2025 Consult note [facility] Medical Records Department [address] [place] [address] Anesthesia Postop Eval I 07/06/241454 MR#: [id number] Acct: [id number] Name: EMELIA JOHNSON Rep #:[id number] : 1950 74 From: Jorge Luis Acosta CRNA PCP: Jenae Santamaria MD Status:ADM IN Y Race: C Location: [place] [address] 0-1 Anesthesia: Postop Eval I Current Vital Signs Temperature: 96.9 F Pulse Rate: 69 Blood Pressure: 138/79 Respiratory Rate: 16 Pulse Ox: 98 Oxygen Delivery Method: Nasal Cannula Oxygen Flow Rate (L/min): 2 Assessment Airway patent: Yes Spontaneous unlabored respirations: Yes Mental status: Awake and Calm nausea: No Vomiting: No Anesthesia Complication: No Fluid Hydration Crystalloid volume administer (ml): 1,300 Total IV fluid infused: 1,300 Progress Note Anesthesia document: Postop Eval 1 completed: Yes 07/06/24 1457 y DATA CENTER TECHNICIAN> Date _ Jorge Luis Karla DATA CENTER TECHNICIAN Cosigner Signature: Date CC: ~ Signed [facility]04-10-2025 Consult note Author Brandon [facility] Note Date/Time July 06, 2024 10: 25[facility] Medical Records Department [address] [place] [address] Pre-Anesthesia Evaluation 07/06/24 1015 MR#: [id number] Acct: [id number] Name: EMELIA JOHNSON Rep #:[id number] : 1950 74 From: Brandon David MD PCP: Jenae Santamaria MD Status:ADM IN Y Race: C Location: [place] [address] 0-1 ASA Classification* ASA Classification ASA Classification: 3 Assessment & Plan Anesthesia* Anesthesia Assessment Anesthesia Assessment: Discussed sedation and/or anesthesia options, risks, benefits, and alternatives with patient/parents/legal guardian/POA. Questions invited. The patient/parents/legal guardian/POA seems to understand and agrees to proceedwith anesthesia plan. Reviewed the physical assessment, medical history, allergy history and patient home medications list prior to surgery/procedure/anesthetic and documented any changes. Performed airway and anesthesia risk assessments. Anesthesia Type Anesthesia Type: MAC History Source History Obtained from:: Patient and Chart Anesthesia Focused Assessment* Temperature: 97.4 F Pulse Rate: 81 Blood Pressure: 124/70 Respiratory Rate: 18 Pulse Ox: 91 Oxygen Delivery Method: Room Air Oxygen Flow Rate (L/min): 2 Airway Assessment Mouth opens: 2 cm Mallampati Score: IV Teeth Condition: Missing (Patient has several missing teeth. Current teeth are all tight.) Neck Range of motion (ROM): Limited ROM Focused Labs Anesthesia Preop lab: CBC WBC 5.0 K/mm3 (4.4-11.0) 07/06/24 03:43 07/06/24 RBC 4.23 M/mm3 (4.6-6.2) L 07/06/24 03:43 07/06/24 Hgb 12.7 g/dL (13.0-16.5) L 07/06/24 03:43 5 Hct 39.3 % (40-54) L 07/06/24 03:43 07/06/24 Plt Count 115 K/mm3 (150-450) L 07/06/24 03:43 07/06/24 CHEMISTRY Potassium 3.5 mmol/L (3.3-5.1) 07/06/24 03:43 07/06/24 Sodium 139 mmol/L (133-145) 07/06/24 03:43 07/06/24 Magnesium 1.9 mg/dL (1.5-2.2) 07/05/24 04:28 07/05/24 Phosphorus 3.3 mg/dL (2.7-4.5) 07/05/24 04:28 07/05/24 BUN 13 mg/dL (4-19) 07/06/24 03:43 07/06/24 Creatinine 1.44 mg/dL (0.70-1.20) H 07/06/24 03:43 Glucose 111 mg/dL (70-99) H 07/06/24 03:43 07/06/24 POC Glucose 202 mg/dL (74-106) H 02/23/24 11:30 02/23/24 TSH 0.599 uIU/mL (0.358-3.740) 01/17/24 06:50 12/28 04/21 COAG PT 19.3 SECONDS (11.7-14.9) H 01/10/24 17:00 12/27 07/20 Pre-Assessment Diagnosis/Proposed Procedure Planned Operative Procedure(s): Left lower angiogram with possible femoral stent. 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 02/22/24 09:14 Any Problems With Anesthesia No 07/04/24 15:23 Cholinesterase deficiency No 07/04/24 15:23 You/Your Family Experience No 07/04/24 15:23 fever (hyperthermia) with Relationship Recent Exposure to Contagious No 07/04/24 15:23 Disease Does patient have nerve No 07/04/24 15:23 stimulator Patient instructed to have device shut off --Does patient have Pacemaker No 07/04/24 15:22 or ICD? When Was Last Pacemaker Check QUESTION #4 FULL TEXT: You/Your Family Experience fever (hyperthermia) with Anesthesia Last Oral Intake Last Oral intake: Last Oral Intake NPO since 0000 07/06/24 10:01 Meds taken in AM with sips of Yes 07/06/24 10:01 water? Meds patient instructed to take am of surgery Any additional information?: Yes NPO since: 00:00 PONV PONV - spa manager: PONV - spa manager Female HX of Motion Sickness HX of N/V After Surgery Non-Smoker Duration of Surgery greater than 60 minutes Number of Risk Factors PONV Score Height & Weight Height & Weight: Anesthesia: Height & Weight Height 5 ft 9 in 07/06/24 10:01 Weight: 85.8 kg 07/06/24 10:01 Body Mass Index (BMI) 27.9 07/06/24 10:01 Respiratory Assessment Respiratory Assessment - spa manager: Respiratory Tract Infection Hx - spa manager Hx Respiratory Tract Infection No 07/04/24 15:23 STOP Sleep Apnea STOP Sleep Apnea - spa manager: STOP Sleep Apnea - spa manager Hx Hypertension No 07/02/24 13:20 Hx Sleep Apnea No 07/01/24 13:07 CPAP BIPAP Do you snore loudly (louder No 07/01/24 13:07 than talking or can be heard Do you often feel tired/ No 07/01/24 13:07 fatigued/ sleepy during daytime? Has anyone observed you stop No 07/01/24 13:07 breathing during sleep? STOP Results Negative 07/04/24 16:58 QUESTION #5 FULL TEXT : Do you snore loudly (louder than talking or can be heard through closed doors)? 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 Specify any problems Hx of Preganancy in last 3 N/A 07/01/24 13:07 Months Nurse Filling Out Transfusion RVIZZO 07/01/24 13:07 & Questions: Date: 07/01/24 07/01/24 13:07 Time: 13:20 07/01/24 13:07 Patient unable to answer at this time (ie. confused, unrespo /Reproduction History /Reproductive History - spa manager: /Reproductive Hx- spa manager Hx Now No 07/04/24 15:23 Gestational Age (in weeks): EDC: Hx Hx Para Hx Section SAB No 07/04/24 15:23 Active Medications Active Medications: Current Medications Generic Name Dose Route Start Last Admin Trade Name Freq PRN Reason Stop Dose Admin Acetaminophen 650 mg 07/01/24 13:08 Acetaminophen 325 Mg Tablet PO Q6H PRN PRN Pain 1-10 Or Fever>100.7 Albuterol Sulfate 2.5 mg 07/01/24 13:16 Albuterol 2.5 Mg/3 Ml Vial.Neb. INHALATION Q4H PRN wheezing Albuterol/Ipratropium 3 ml 07/01/24 13:15 07/06/24 07:05 Ipratropium/Albuterol Sulfate 3 Ml Ampul.Neb INHALATION 3 ml Q6HWA.RT BRISEYDA Administration Aspirin 81 mg 07/02/24 08:00 07/06/24 08:36 Aspirin E.C. 81 Mg Tablet PO 81 mg BREAKFAST BRISEYDA Administration Atorvastatin Calcium 40 mg 07/01/24 22:00 07/05/24 22:14 Atorvastatin Calcium 40 Mg Tablet PO 40 mg QHS BRISEYDA Administration Budesonide 0.5 mg 07/01/24 13:15 07/06/24 07:05 Budesonide Respules 0.5 Mg/2 Ml Ampul.Neb. INHALATION 0.5 mg Q12H.RT BRISEYDA Administration Finasteride 5 mg 07/02/24 10:00 07/05/24 09:22 Finasteride 5 Mg Tablet PO Not Given DAILY BRISEYDA Sodium Chloride 100 mls @ 15 mls/hr 07/01/24 13:38 07/06/24 09:40 IV 0 mls/hr .Q6H40M PRN Infusion Saline Flush Sodium Chloride 100 mls @ 15 mls/hr 07/01/24 13:38 IV .Q6H40M PRN Additional IVPB Infusion Linezolid 600 mg in 300 mls @ 200 mls/hr 07/05/24 10:00 07/06/24 09:40 Zyvox 600mg IV 0 mls/hr Q12 BRISEYDA Infusion Icosapent Ethyl 2 gm 07/01/24 22:00 07/05/24 22:16 Icosapent Ethyl 1 Gm Capsule PO Not Given BID [facility] Levothyroxine Sodium 150 mcg 07/02/24 06:00 07/06/24 05:29 Levothyroxine 150 Mcg Tablet PO Not Given DAILY@0600 [facility] Melatonin 3 mg 07/01/24 13:08 Melatonin 3 Mg Tablet PO QHS PRN PRN INSOMNIA Nystatin 1 applic 07/01/24 22:30 07/05/24 14:00 Nystatin Powder 15gm Bottle TOPICAL Not Given TID [facility] Protocol Ondansetron HCl 4 mg 07/01/24 13:08 07/01/24 13:50 Ondansetron 4 Mg/2 Ml Vial IV 4 mg Q8H PRN PRN Administration NAUSEA/VOMITING Pantoprazole Sodium 40 mg 07/01/24 22:00 07/06/24 08:36 Pantoprazole Sodium 40 Mg Tablet PO 40 mg BID BRISEYDA Administration Sodium Chloride 10 - 40 ml 07/01/24 13:22 07/06/24 08:37 0.9% Saline Lock 10 Ml Syringe IV 10 ml UD PRN Administration SALINE FLUSH Sodium Chloride 10 - 40 ml 07/01/24 13:38 0.9% Saline Lock 10 Ml Syringe IV UD PRN SALINE FLUSH PFSH Medical History (Updated 07/04/24 @ 22:[address] Ginger Espitia, DO) MRSA (methicillin resistant staph aureus) culture positive Wears glasses Low iron Stroke/cerebrovascular accident Former smoker Colostomy in place Family history of abdominal aortic aneurysm repair DVT (deep venous thrombosis) Enteritis Cholelithiasis Acidosis, lactic Encephalopathy due to infection Acute hypoxemic respiratory failure Complicated urinary tract infection Severe sepsis with acute organ dysfunction Aspiration into respiratory tract FIOR (acute kidney injury) Colon cancer Home Medications ?Medication ?Instructions ?Recorded ?Last Taken ?Type finasteride 5 mg tablet 5 mg PO DAILY prostate 06/2106/30/24 History ferrous sulfate 325 mg (65 mg 325 mg PO BIDCM iron #1 TAB 06/26/23 01/09/24 Rx iron) tablet levothyroxine 100 mcg tablet 100 mcg PO DAILY@0600 #30 tabs 01/15/24 06/30/24 Rx pantoprazole 40 mg tablet,delayed 40 mg PO BID #60 tab s 01/15/24 06/30/24 Rx release albuterol sulfate 90 mcg/actuation 1 - 2 puff inhalati on 4X/DAY PRN 02/22/24 Unknown History aerosol inhaler wheezing apixaban 5 mg tablet (Eliquis) 5 mg PO BID 02/22/24 History amlodipine 5 mg tablet 5 mg PO DAILY 07/01/2406/30 History aspirin 81 mg tablet,delayed 81 mg PO DAILY 07/01/24 0 06/30/24 History release ergocalciferol (vitamin D2) 1,250 1,250 mcg PO MO 08/2006/26/24 History mcg (50,000 unit) capsule fluticasone fur. 100 mcg-umeclid 1 ea inhalation DAILY 07/01/24 06/30/24 History 62.5 mcg-vilant 25 mcg inhalat.powder (Trelegy Ellipta) icosapent ethyl 1 gram capsule 2 g PO BID 07/01/2407/21 History levothyroxine 150 mcg tablet 150 mcg PO DAILY 07/01/24 06/30/24 History linagliptin 5 mg tablet (Tradjenta) 5 mg PO DAILY 08/2006/30/24 History rosuvastatin 20 mg tablet 20 mg PO QHS 07/01/24 History Allergy/AdvReac Type Severity Reaction Status Date / Time No Known Allergies Allergy Verified 07/01/24 13:29 Surgical History (Updated 07/06/24 @ 10:[address] Brandon David MD) H/O esophagogastroduodenoscopy Hx of abdominal surgery Hx of endarterectomy (~2020) Social History Smoking Status: Former smoker Tobacco: How many years used: 50 Review of Systems (Anesthesia) ROS Narrative System reviewed and no additional complaints, except as documented. 07/06/24 1025 <Electronically signed by Brandon nowak MD> Date _ Brandon David MD Cosigner Signature: Date CC: ~ Signed [facility] Work Phone: [phone]) 193-699904-10-2025 Consult note [facility] Medical Records Department [address] [place] [id number] Pre-Anesthesia Evaluation 07/06/24 1015 MR#: [id number] Acct: [id number] Name: EMELIA JOHNSON Rep #:[id number] : 1950 74 From: Brandon David MD PCP: Jenae Santamaria MD Status:ADM IN Y Race: C Location: [place] [address] 0-1 ASA Classification* ASA Classification ASA Classification: 3 Assessment & Plan Anesthesia* Anesthesia Assessment Anesthesia Assessment: Discussed sedation and/or anesthesia options, risks, benefits, and alternatives with patient/parents/legal guardian/POA. Questions invited. The patient/parents/legal guardian/POA seems to understand and agrees to proceedwith anesthesia plan. Reviewed the physical assessment, medical history, allergy history and patient home medications list prior to surgery/procedure/anesthetic and documented any changes. Performed airway and anesthesia risk assessments. Anesthesia Type Anesthesia Type: MAC History Source History Obtained from:: Patient and Chart Anesthesia Focused Assessment* Temperature: 97.4 F Pulse Rate: 81 Blood Pressure: 124/70 Respiratory Rate: 18 Pulse Ox: 91 Oxygen Delivery Method: Room Air Oxygen Flow Rate (L/min): 2 Airway Assessment Mouth opens: 2 cm Mallampati Score: IV Teeth Condition: Missing (Patient has several missing teeth. Current teeth are all tight.) Neck Range of motion (ROM): Limited ROM Focused Labs Anesthesia Preop lab: CBC WBC 5.0 K/mm3 (4.4-11.0) 07/06/24 03:43 07/06/24 RBC 4.23 M/mm3 (4.6-6.2) L 07/06/24 03:43 07/06/24 Hgb 12.7 g/dL (13.0-16.5) L 07/06/24 03:43 5 Hct 39.3 % (40-54) L 07/06/24 03:43 07/06/24 Plt Count 115 K/mm3 (150-450) L 07/06/24 03:43 07/06/24 CHEMISTRY Potassium 3.5 mmol/L (3.3-5.1) 07/06/24 03:43 07/06/24 Sodium 139 mmol/L (133-145) 07/06/24 03:43 07/06/24 Magnesium 1.9 mg/dL (1.5-2.2) 07/05/24 04:28 07/05/24 Phosphorus 3.3 mg/dL (2.7-4.5) 07/05/24 04:28 07/05/24 BUN 13 mg/dL (4-19) 07/06/24 03:43 07/06/24 Creatinine 1.44 mg/dL (0.70-1.20) H 07/06/24 03:43 Glucose 111 mg/dL (70-99) H 07/06/24 03:43 07/06/24 POC Glucose 202 mg/dL (74-106) H 02/23/24 11:30 02/23/24 TSH 0.599 uIU/mL (0.358-3.740) 01/17/24 06:50 12/28 04/21 COAG PT 19.3 SECONDS (11.7-14.9) H 01/10/24 17:00 12/27 07/20 Pre-Assessment Diagnosis/Proposed Procedure Planned Operative Procedure(s): Left lower angiogram with possible femoral stent. 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 02/22/24 09:14 Any Problems With Anesthesia No 07/04/24 15:23 Cholinesterase deficiency No 07/04/24 15:23 You/Your Family Experience No 07/04/24 15:23 fever (hyperthermia) with Relationship Recent Exposure to Contagious No 07/04/24 15:23 Disease Does patient have nerve No 07/04/24 15:23 stimulator Patient instructed to have device shut off --Does patient have Pacemaker No 07/04/24 15:22 or ICD? When Was Last Pacemaker Check QUESTION #4 FULL TEXT: You/Your Family Experience fever (hyperthermia) with Anesthesia Last Oral Intake Last Oral intake: Last Oral Intake NPO since 0000 07/06/24 10:01 Meds taken in AM with sips of Yes 07/06/24 10:01 water? Meds patient instructed to take am of surgery Any additional information?: Yes NPO since: 00:00 PONV PONV - spa manager: PONV - spa manager Female HX of Motion Sickness HX of N/V After Surgery Non-Smoker Duration of Surgery greater than 60 minutes Number of Risk Factors PONV Score Height & Weight Height & Weight: Anesthesia: Height & Weight Height 5 ft 9 in 07/06/24 10:01 Weight: 85.8 kg 07/06/24 10:01 Body Mass Index (BMI) 27.9 07/06/24 10:01 Respiratory Assessment Respiratory Assessment - spa manager: Respiratory Tract Infection Hx - spa manager Hx Respiratory Tract Infection No 07/04/24 15:23 STOP Sleep Apnea STOP Sleep Apnea - spa manager: STOP Sleep Apnea - spa manager Hx Hypertension No 07/02/24 13:20 Hx Sleep Apnea No 07/01/24 13:07 CPAP BIPAP Do you snore loudly (louder No 07/01/24 13:07 than talking or can be heard Do you often feel tired/ No 07/01/24 13:07 fatigued/ sleepy during daytime? Has anyone observed you stop No 07/01/24 13:07 breathing during sleep? STOP Results Negative 07/04/24 16:58 QUESTION #5 FULL TEXT : Do you snore loudly (louder than talking or can be heard through closeddoors)? 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 Specify any problems Hx of Preganancy in last 3 N/A 07/01/24 13:07 Months Nurse Filling Out Transfusion RVIZZO 07/01/24 13:07 & Questions: Date: 07/01/24 07/01/24 13:07 Time: 13:20 07/01/24 13:07 Patient unable to answer at this time (ie. confused, unrespo /Reproduction History /Reproductive History - spa manager: /Reproductive Hx- spa manager Hx Now No 07/04/24 15:23 Gestational Age (in weeks): EDC: Hx Hx Para Hx Section SAB No 07/04/24 15:23 Active Medications Active Medications: Current Medications Generic Name Dose Route Start Last Admin Trade Name Freq PRN Reason Stop Dose Admin Acetaminophen 650 mg 07/01/24 13:08 Acetaminophen 325 Mg Tablet PO Q6H PRN PRN Pain 1-10 Or Fever>100.7 Albuterol Sulfate 2.5 mg 07/01/24 13:16 Albuterol 2.5 Mg/3 Ml Vial.Neb. INHALATION Q4H PRN wheezing Albuterol/Ipratropium 3 ml 07/01/24 13:15 07/06/24 07:05 Ipratropium/Albuterol Sulfate 3 Ml Ampul.Neb INHALATION 3 ml Q6HWA.RT BRISEYDA Administration Aspirin 81 mg 07/02/24 08:00 07/06/24 08:36 Aspirin E.C. 81 Mg Tablet PO 81 mg BREAKFAST BRISEYDA Administration Atorvastatin Calcium 40 mg 07/01/24 22:00 07/05/24 22:14 Atorvastatin Calcium 40 Mg Tablet PO 40 mg QHS BRISEYDA Administration Budesonide 0.5 mg 07/01/24 13:15 07/06/24 07:05 Budesonide Respules 0.5 Mg/2 Ml Ampul.Neb. INHALATION 0.5 mg Q12H.RT BRISEYDA Administration Finasteride 5 mg 07/02/24 10:00 07/05/24 09:22 Finasteride 5 Mg Tablet PO Not Given DAILY BRISEYDA Sodium Chloride 100 mls @ 15 mls/hr 07/01/24 13:38 07/06/24 09:40 IV 0 mls/hr .Q6H40M PRN Infusion Saline Flush Sodium Chloride 100 mls @ 15 mls/hr 07/01/24 13:38 IV .Q6H40M PRN Additional IVPB Infusion Linezolid 600 mg in 300 mls @ 200 mls/hr 07/05/24 10:00 07/06/24 09:40 Zyvox 600mg IV 0 mls/hr Q12 BRISEYDA Infusion Icosapent Ethyl 2 gm 07/01/24 22:00 07/05/24 22:16 Icosapent Ethyl 1 Gm Capsule PO Not Given BID BRISEYDA Levothyroxine Sodium 150 mcg 07/02/24 06:00 07/06/24 05:29 Levothyroxine 150 Mcg Tablet PO Not Given DAILY@0600 BRISEYDA Melatonin 3 mg 07/01/24 13:08 Melatonin 3 Mg Tablet PO QHS PRN PRN INSOMNIA Nystatin 1 applic 07/01/24 22:30 07/05/24 14:00 Nystatin Powder 15gm Bottle TOPICAL Not Given TID [facility] Protocol Ondansetron HCl 4 mg 07/01/24 13:08 07/01/24 13:50 Ondansetron 4 Mg/2 Ml Vial IV 4 mg Q8H PRN PRN Administration NAUSEA/VOMITING Pantoprazole Sodium 40 mg 07/01/24 22:00 07/06/24 08:36 Pantoprazole Sodium 40 Mg Tablet PO 40 mg BID BRISEYDA Administration Sodium Chloride 10 - 40 ml 07/01/24 13:22 07/06/24 08:37 0.9% Saline Lock 10 Ml Syringe IV 10 ml UD PRN Administration SALINE FLUSH Sodium Chloride 10 - 40 ml 07/01/24 13:38 0.9% Saline Lock 10 Ml Syringe IV UD PRN SALINE FLUSH [facility] Medical History (Updated 07/04/24 @ 22:[address] Ginger Espitia, DO) MRSA (methicillin resistant staph aureus) culture positive Wears glasses Low iron Stroke/cerebrovascular accident Former smoker Colostomy in place Family history of abdominal aortic aneurysm repair DVT (deep venous thrombosis) Enteritis Cholelithiasis Acidosis, lactic Encephalopathy due to infection Acute hypoxemic respiratory failure Complicated urinary tract infection Severe sepsis with acute organ dysfunction Aspiration into respiratory tract FIOR (acute kidney injury) Colon cancer Home Medications ?Medication ?Instructions ?Recorded ?Last Taken ?Type finasteride 5 mg tablet 5 mg PO DAILY prostate 06/2106/30/24 History ferrous sulfate 325 mg (65 mg 325 mg PO BIDCM iron #1 TAB 06/26/23 01/09/24 Rx iron) tablet levothyroxine 100 mcg tablet 100 mcg PO DAILY@0600 #30 tabs 01/15/24 06/30/24 Rx pantoprazole 40 mg tablet,delayed 40 mg PO BID #60 tab s 01/15/24 06/30/24 Rx release albuterol sulfate 90 mcg/actuation 1 - 2 puff inhalati on 4X/DAY PRN 02/22/24 Unknown History aerosol inhaler wheezing apixaban 5 mg tablet (Eliquis) 5 mg PO BID 02/22/24 History amlodipine 5 mg tablet 5 mg PO DAILY 07/01/2406/30 History aspirin 81 mg tablet,delayed 81 mg PO DAILY 07/01/24 0 06/30/24 History release ergocalciferol (vitamin D2) 1,250 1,250 mcg PO MO 08/2006/26/24 History mcg (50,000 unit) capsule fluticasone fur. 100 mcg-umeclid 1 ea inhalation DAILY 07/01/24 06/30/24 History 62.5 mcg-vilant 25 mcg inhalat.powder (Trelegy Ellipta) icosapent ethyl 1 gram capsule 2 g PO BID 07/01/2407/21 History levothyroxine 150 mcg tablet 150 mcg PO DAILY 07/01/24 06/30/24 History linagliptin 5 mg tablet (Tradjenta) 5 mg PO DAILY 08/2006/30/24 History rosuvastatin 20 mg tablet 20 mg PO QHS 07/01/24 History Allergy/AdvReac Type Severity Reaction Status Date / Time No Known Allergies Allergy Verified 07/01/24 13:29 Surgical History (Updated 07/06/24 @ 10:[address] Brandon David MD) H/O esophagogastroduodenoscopy Hx of abdominal surgery Hx of endarterectomy (~2020) Social History Smoking Status: Former smoker Tobacco: How many years used: 50 Review of Systems (Anesthesia) ROS Narrative System reviewed and no additional complaints, except as documented. 07/06/24 1025 eliu MURILLO> Date _ Brandon David MD Cosigner Signature: Date CC: ~ Signed [facility]04-09-2025 Progress note Author David Friend [facility] Note Date/Time July 05, 2024 8:24 pm [facility] Medical Records Department [address] [place] [address] Progress Note 07/05/242022 MR#: [id number] Acct: [id number] Name: EMELIA JOHNSON Rep #:[id number] : 1950 74 From: David Ramos DO PCP: Jenae Santamaria MD Status:ADM IN Location: [place] [address] Progress Note Patient underwent repeat EGD yesterday. He is frustrated that he cannot eat real food. Physical Exam Const alert and oriented x3 General Appearance: cooperative HEENT external ears normal and external nose normal Head and Scalp: normocephalic and atraumatic Nose: external nose normal Eyes EOMs intact bilaterally General Eye: normal appearance of both eyes Neck General: normal visual inspection and trachea midline Resp normal respiratory effort, normal air movement, no retractions and no use of accessory muscles Effort and Inspection: able to speak in complete sentences; Negative for labored, grunting or stridor Cardio regular rate and regular rhythm GI GI Narrative: colostomy Extremity Extremity Narrative: Significant diffuse 3+ edema of the LLE, generally soft to palpation; no focal areas of erythema/excess warmth/fluctuance/induration Skin no rashes or lesions noted Trauma: no lacerations or abrasions Neuro oriented x3, moves all extremities and no focal motor deficits Speech: speech normal Psych mental status grossly normal Attitude: calm Assessment & Plan Assessment/Plan (1) Encephalopathy acute: (2) Acute UTI: PLAN: Plan 74 yo with h/o colon cancer s/p resection with end ileostomy with possible aspiration PNA and esophageal dysphagia Dysphagia * Speech therapy on board. * He had EGD which showed evidence of eosinophilic esophagitis and benign appearing esophageal stenosis which was dilated, as well as hiatal hernia. * Patient has very poor motility of his esophagus likely contributing to his severe erosive esophagitis and inability to clear acid from his esophagus and/or food from his esophagus * Awaiting repeat evaluation by speech therapy * on IV PPI History of colon cancer: has ileostomy in place. Visit Charges Inpatient E&M: 21673 Subs Hosp L3 07/05/242023 <Electronically signed by David Ramos DO> David Ramos DO Cosigner Signature (if applicable): CC: ~ Signed [facility] Work Phone: 1(202) 548-476504-09-2025 Progress note Author Jacey Araya [facility] Note Date/Time July 05, 2024 6:42 pm [facility] Medical Records Department [address] [place] [address] Progress Note - Surgery 07/05/24 1200 MR#: [id number] Acct: [id number] Name: EMELIA JOHNSON Rep #:[id number] : 1950 74 From: Jacey RODRIGUEZ PCP: Jenae Santamaria MD Status:ADM IN Location: [place] [address] Subjective Subjective I saw Mr. Johnson up to the bedside chair this morning. I advised that Dr. Isai Taylor from [facility] had discussed his case with ultimate recommendation beingendovascular intervention performed here to address the fistula itself now to both improve his symptoms and also likely allow for better imaging/evaluation going forward and then plan for further workup on an outpatient basis regarding the cause of the fistula. He is agreeable to this plan, pleased he will not haveto transfer. I had also discussed this with his daughter Shaunna over the phone yesterday evening patient had been down for endoscopy). We discussed the recommended procedure details as well. Objective Data Objective Data Vital Signs: Vital Signs Temp Pulse Resp BP Pulse Ox O2 Del Method O2 Flow Rate 97.2 F L 84 18 143/75 H 93 Room Air 2 07/05/24 10:40 07/05/24 10:40 07/05/24 10:40 07/05/24 10:40 07/05/24 10:40 07/05/24 10:40 07/04/24 10:00 Oxygen Flow Rate (L/min) 2 Oxygen Delivery Method Room Air Weight: 189 lb 2.506 oz Body Mass Index (BMI) 27.9 Intake & Output: Intake and Output for Last 24 Hours 07/03/24 07/04/24 07/05/24 23:59 23:59 23:59 Intake Total 580 / 580 240 / 240 120 / 120 Output Total 1455 / 1605 855 / 855 455 / 455 Balance -875 / -1025 -615 / -615 -335 / -335 Lab / Micro Data 07/05/24 04:28 07/05/24 04:28 Labs: Laboratory Results - last 24 hr 07/05/24 04:28: WBC 5.4, RBC 4.04 L, Hgb 11.9 L, Hct 37.9 L, MCV 93.8, MCH 29.5,MCHC 31.4 L, RDW Std Deviation 51.8 H, RDW Coeff of Yanira 15.0 H, Plt Count 106 L,MPV 11.8, Sodium 140, Potassium 3.5, Chloride 107, Carbon Dioxide 22.2, Anion Gap 10, BUN 15, Creatinine 1.53 H, Estim Creat Clear Calc 45.98 L, Est GFR (MDRD) Non-Af 47 L, BUN/Creatinine Ratio 9.6 L, Glucose 88, Calcium 8.9, Phosphorus 3.3, Magnesium 1.9, Total Bilirubin 0.30, AST 14, ALT 6, Alkaline Phosphatase 47, Total Protein 6.5, Albumin 3.3 L, Globulin 3.2, Albumin/GlobulinRatio 1.0 Micro: Microbiology 07/01/24 10:21 Blood Culture (Wb) - Anticubital Left Blood Culture - Preliminary No growth in 48 hours. 07/01/24 09:42 Blood Culture (Wb) - Anticubital Left Blood Culture - Preliminary No growth in 48 hours. 07/01/24 10:04 Urine Catheter - Maddox Urine Culture - Final Meth. resistant Staph. aureus 07/01/24 11:26 Mucosa - Nose SARS-CoV-2, Influenza & RSV (PCR) - Final Physical Exam Const alert and oriented x3 General Appearance: cooperative HEENT external ears normal and external nose normal Head and Scalp: normocephalic and atraumatic Nose: external nose normal Eyes EOMs intact bilaterally General Eye: normal appearance of both eyes Neck General: normal visual inspection and trachea midline Resp normal respiratory effort, normal air movement, no retractions and no use of accessory muscles Effort and Inspection: able to speak in complete sentences; Negative for labored, grunting or stridor Cardio regular rate and regular rhythm GI GI Narrative: colostomy Extremity Extremity Narrative: Significant diffuse 3+ edema of the LLE, generally soft to palpation; no focal areas of erythema/excess warmth/fluctuance/induration Skin no rashes or lesions noted Trauma: no lacerations or abrasions Neuro oriented x3, moves all extremities and no focal motor deficits Speech: speech normal Psych mental status grossly normal Attitude: calm Assessment & Plan Assessment/Plan (1) Peripheral arterial disease with history of revascularization: (2) Femoral arteriovenous fistula, left: PLAN: Plan Plan is now for LLE angiogram via upper extremity access for likely covered stent placement to address the AV fistula; scheduled for senior label specialist with MAC tomorrow at 1000. NPO after midnight. Hold Eliquis for procedure. Discussed procedure with patient and his daughter Shaunna via phone; both had all questions/concerns addressed to their apparent satisfaction and were agreeable to proceed. Charges/Coding Multi Select Codes Visit Charges Visit Charges: 65819 Subs Hosp L1 07/05/24 1423 <Electronically signed by Jacey RODRIGUEZ> Cosigner Signature (if applicable): 07/05/24 1842 <Electronically signed by Efraín Thompson MD> CC: ~ Signed [facility] Work Phone: 1(743) 593-543104-09-2025 Progress note [facility] Medical Records Department [address] [place] [address] Progress Note 07/05/242022 MR#: [id number] Acct: [id number] Name: EMELIA JOHNSON Rep #:[id number] : 1950 74 From: David Friend DO PCP: Jenae Santamaria MD Status:ADM IN Location: [place] [id number] Progress Note Patient underwent repeat EGD yesterday. He is frustrated that he cannot eat real food. Physical Exam Const alert and oriented x3 General Appearance: cooperative HEENT external ears normal and external nose normal Head and Scalp: normocephalic and atraumatic Nose: external nose normal Eyes EOMs intact bilaterally General Eye: normal appearance of both eyes Neck General: normal visual inspection and trachea midline Resp normal respiratory effort, normal air movement, no retractions and no use of accessory muscles Effort and Inspection: able to speak in complete sentences; Negative for labored, grunting or stridor Cardio regular rate and regular rhythm GI GI Narrative: colostomy Extremity Extremity Narrative: Significant diffuse 3+ edema of the LLE, generally soft to palpation; no focal areas of erythema/excess warmth/fluctuance/induration Skin no rashes or lesions noted Trauma: no lacerations or abrasions Neuro oriented x3, moves all extremities and no focal motor deficits Speech: speech normal Psych mental status grossly normal Attitude: calm Assessment & Plan Assessment/Plan (1) Encephalopathy acute: (2) Acute UTI: PLAN: Plan 74 yo with h/o colon cancer s/p resection with end ileostomy with possible aspiration PNA and esophageal dysphagia Dysphagia * Speech therapy on board. * He had EGD which showed evidence of eosinophilic esophagitis and benign appearing esophageal stenosis which was dilated, as well as hiatal hernia. * Patient has very poor motility of his esophagus likely contributing to his severe erosive esophagitis and inability to clear acid from his esophagus and/or food from his esophagus * Awaiting repeat evaluation by speech therapy * on IV PPI History of colon cancer: has ileostomy in place. Visit Charges Inpatient E&M: 27245 Subs Hosp L3 07/05/242023 David Friend DO Cosigner Signature (if applicable): CC: ~ Signed [facility]04-09-2025 Progress note Author Ginger Espitia [facility] Note Date/Time July 05, 2024 5:13 pm [facility] Medical Records Department [address] [place] [address] Progress Note - Hospitalist 07/05/24830 MR#: [id number] Acct: [id number] Name: EMELIA JOHNSON Rep #:[id number] : 1950 74 From: Ginger Espitia DO PCP: Jenae Santamaria MD Status:ADM IN Location: [place] [address] Reason for Visit Reason for Visit: Nausea and vomiting with dysuria Subjective Subjective Patient frustrated that he cannot eat. Had an episode this morning where he wascoughing after he was taking his pills and eating breakfast. Speech therapy hasbeen reconsulted to evaluate him again despite his cookie fall yesterday. Thereis concern he may be aspirating. Objective Data Objective Data Vital Signs: Vital Signs Temp Pulse Resp BP Pulse Ox O2 Del Method O2 Flow Rate 98 F 88 20 H 107/55 L 93 Room Air 2 07/05/24 02:01 07/05/24 06:58 07/05/24 06:58 07/05/24 02:01 07/05/24 06:58 07/05/24 08:10 07/04/24 10:00 Oxygen Flow Rate (L/min) 2 Oxygen Delivery Method Room Air Weight: 85.8 kg Body Mass Index (BMI) 27.9 Intake & Output: Intake and Output for Last 24 Hours 07/03/24 07/04/24 07/05/24 23:59 23:59 23:59 Intake Total 580 / 580 240 / 240 120 / 120 Output Total 1455 / 1605 855 / 855 455 / 455 Balance -875 / -1025 -615 / -615 -335 / -335 Lab / Micro Data 07/05/24 04:28 07/05/24 04:28 Labs: Laboratory Results - last 24 hr 07/05/24 04:28: WBC 5.4, RBC 4.04 L, Hgb 11.9 L, Hct 37.9 L, MCV 93.8, MCH 29.5,MCHC 31.4 L, RDW Std Deviation 51.8 H, RDW Coeff of Yanira 15.0 H, Plt Count 106 L,MPV 11.8, Sodium 140, Potassium 3.5, Chloride 107, Carbon Dioxide 22.2, Anion Gap 10, BUN 15, Creatinine 1.53 H, Estim Creat Clear Calc 45.98 L, Est GFR (MDRD) Non-Af 47 L, BUN/Creatinine Ratio 9.6 L, Glucose 88, Calcium 8.9, Phosphorus 3.3, Magnesium 1.9, Total Bilirubin 0.30, AST 14, ALT 6, Alkaline Phosphatase 47, Total Protein 6.5, Albumin 3.3 L, Globulin 3.2, Albumin/GlobulinRatio 1.0 Micro: Microbiology 07/01/24 10:21 Blood Culture (Wb) - Anticubital Left Blood Culture - Preliminary No growth in 48 hours. 07/01/24 09:42 Blood Culture (Wb) - Anticubital Left Blood Culture - Preliminary No growth in 48 hours. 07/01/24 10:04 Urine Catheter - Maddox Urine Culture - Final Meth. resistant Staph. aureus 07/01/24 11:26 Mucosa - Nose SARS-CoV-2, Influenza & RSV (PCR) - Final Physical Exam Const alert, oriented x3, no apparent distress and average body habitus; Negative for healthy appearing Constitutional Narrative: Frail-appearing, elderly, white male, sitting up in a chair at the bedside reclined, appears comfortable and nontoxic at this time, very friendly General Appearance: cooperative and comfortable HEENT normocephalic and head/scalp atraumatic HEENT Narrative: Dentition is extremely poor Resp normal respiratory effort, no retractions, no use of accessory muscles and clearto auscultation bilaterally Resp Narrative: Diffusely diminished but clear Auscultation: Negative for rales, rhonchi or wheezes Cardio regular rate, regular rhythm, S1 normal heart sound, S2 normal heart sound, no murmurs, no rub, no gallops, no clicks and peripheral pulses 2+ throughout Cardio Narrative: Tachycardic, regular rhythm. GI normal to inspection, nondistended, normoactive bowel sounds, soft to palpation and non-tender GI Narrative: Ostomy left lower quadrant with good output Extremity Extremity Narrative: Decreased pedal pulses, marked left lower extremity edema with normal size rightlower extremity Neuro no focal motor deficits Neuro Narrative: Able to move all extremities however difficult with left lower extremity due to in size Speech: speech normal Psych mental status grossly normal and affect normal Psych Narrative: Extremely pleasant, eye contact is good and patient interacts appropriately Assessment & Plan Assessment/Plan (1) Femoral arteriovenous fistula, left: (2) Leukocytosis: (3) Acidosis, lactic: (4) Acute UTI: (5) Sepsis: PLAN: Plan Sepsis secondary to UTI in the setting of chronic urinary retention/aspiration pneumonia -Patient with lactic acidosis, leukocytosis, tachycardia and tachypnea -CT on presentation showed subtle ground glass opacity in the right lower lobe concerning for acute pneumonia as well as hydronephrosis and hydroureter of the right kidney suspect related to chronic reflux -Patient does have known aspiration issues -Urine culture was positive for MRSA -After review of cultures we will discontinue doxycycline and plan on linezolid to complete course. Will treat as complicated UTI given presentation and ongoing issues and the fact that he has a chronic indwelling Maddox Dysphagia -EGD done on 07/04/2024 showed grade D erosive esophagitis that was bleeding, benign-appearing esophageal stenosis that was dilated and chronic duodenitis -Continue speech therapy with diet modifications as recommended Erosive esophagitis/esophageal stenosis -Biopsies are pending next-repeat EGD in 1 month -Protonix 40 mg twice daily recommended at discharge FIOR on CKD stage IIIb -Baseline creatinine looks to be between 1.6 and 1.75 -Creatinine on presentation 2.13 -Serum creatinine currently stable in the 1.5-1.6 region communal myomata 1 Severe left lower extremity swelling secondary to AV fistula -Patient follows at [facility] Main [facility] with previous bilateral aortofemoral bypass and AAA repair -No DVT found -vascular surgery is following and plans for intervention on of this week Acute on chronic debility -PT/OT following -Lives with son and daughter at baseline and uses a walker -May require SNF therapy at discharge will continue to follow DM-2 -Oral agents on hold -Continue SSI -Accu-Cheks as ordered -Cardiac/carb controlled diet History of stroke/essential hypertension/hyperlipidemia -Antihypertensives are currently on hold will continue to monitor -Continue home aspirin -Continue home statin Hypothyroidism -Continue home Synthroid History of rectal cancer -Status post chemo and radiation with resection of left colon -Has a permanent colostomy since 2020 -Outpatient follow-up with oncology Peripheral vascular disease -Management per vascular surgery as above GERD -Continue on PPI History of DVT -Eliquis on hold for procedure tomorrow DVT prophylaxis -Eliquis on hold for procedure tomorrow CODE STATUS -Full code Charges/Coding Visit Charges Inpatient E&M: 78659 Subs Hosp L2 07/05/24 1715 <Electronically signed by Ginger Espitia DO> Cosigner Signature (if applicable): CC: ~ Signed [facility] Work Phone: 1(334) 495-435304-09-2025 Progress note [facility] Medical Records Department [address] [place] [address] Progress Note - Surgery 07/05/24 1200 MR#: [id number] Acct: [id number] Name: EMELIA JOHNSON Rep #:[id number] : 1950 74 From: Jacey RODRIGUEZ PCP: Jenae Santamaria MD Status:ADM IN Location: [place] [address] Subjective Subjective I saw Mr. Johnson up to the bedside chair this morning. I advised that Dr. Isai Taylor from [facility] had discussed his case with ultimate recommendation beingendovascular intervention performed here to address the fistula itself now to both improve his symptoms and also likely allow for better imaging/evaluation going forward and then plan for further workup on an outpatient basis regarding thecause of the fistula. He is agreeable to this plan, pleased he will not haveto transfer. I had alsodiscussed this with his daughter Shaunna over the phone yesterday evening patient had been down for endoscopy). We discussed the recommended procedure details as well. Objective Data Objective Data Vital Signs: Vital Signs Temp Pulse Resp BP Pulse Ox O2 Del Method O2 Flow Rate 97.2 F L 84 18 143/75 H 93 Room Air 2 07/05/24 10:40 07/05/24 10:40 07/05/24 10:40 07/05/24 10:40 07/05/24 10:40 07/05/24 10:40 07/04/24 10:00 Oxygen Flow Rate (L/min) 2 Oxygen Delivery Method Room Air Weight: 189 lb 2.506 oz Body Mass Index (BMI) 27.9 Intake & Output: Intake and Output for Last 24 Hours 07/03/24 07/04/24 07/05/24 23:59 23:59 23:59 Intake Total 580 / 580 240 / 240 120 / 120 Output Total 1455 / 1605 855 / 855 455 / 455 Balance -875 / -1025 -615 / -615 -335 / -335 Lab / Micro Data 07/05/24 04:28 07/05/24 04:28 Labs: Laboratory Results - last 24 hr 07/05/24 04:28: WBC 5.4, RBC 4.04 L, Hgb 11.9 L, Hct 37.9 L, MCV 93.8, MCH 29.5,MCHC 31.4 L, RDW Std Deviation 51.8 H, RDW Coeff of Yanira 15.0 H, Plt Count 106 L,MPV 11.8, Sodium 140, Potassium 3.5, Chloride 107, Carbon Dioxide 22.2, Anion Gap 10, BUN 15, Creatinine 1.53 H, Estim Creat Clear Calc 45.98 L, Est GFR (MDRD) Non-Af 47 L, BUN/Creatinine Ratio 9.6 L, Glucose 88, Calcium 8.9, Phosphorus 3.3, Magnesium 1.9, Total Bilirubin 0.30, AST 14, ALT 6, Alkaline Phosphatase 47, Total Protein 6.5, Albumin 3.3 L, Globulin 3.2, Albumin/GlobulinRatio 1.0 Micro: Microbiology 07/01/24 10:21 Blood Culture (Wb) - Anticubital Left Blood Culture - Preliminary No growth in 48 hours. 07/01/24 09:42 Blood Culture (Wb) - Anticubital Left Blood Culture - Preliminary No growth in 48 hours. 07/01/24 10:04 Urine Catheter - Maddox Urine Culture - Final Meth. resistant Staph. aureus 07/01/24 11:26 Mucosa - Nose SARS-CoV-2, Influenza & RSV (PCR) - Final Physical Exam Const alert and oriented x3 General Appearance: cooperative HEENT external ears normal and external nose normal Head and Scalp: normocephalic and atraumatic Nose: external nose normal Eyes EOMs intact bilaterally General Eye: normal appearance of both eyes Neck General: normal visual inspection and trachea midline Resp normal respiratory effort, normal air movement, no retractions and no use of accessory muscles Effort and Inspection: able to speak in complete sentences; Negative for labored, grunting or stridor Cardio regular rate and regular rhythm GI GI Narrative: colostomy Extremity Extremity Narrative: Significant diffuse 3+ edema of the LLE, generally soft to palpation; no focal areas of erythema/excess warmth/fluctuance/induration Skin no rashes or lesions noted Trauma: no lacerations or abrasions Neuro oriented x3, moves all extremities and no focal motor deficits Speech: speech normal Psych mental status grossly normal Attitude: calm Assessment & Plan Assessment/Plan (1) Peripheral arterial disease with history of revascularization: (2) Femoral arteriovenous fistula, left: PLAN: Plan Plan is now for LLE angiogram via upper extremity access for likely covered stent placement to address the AV fistula; scheduled for senior label specialist with MAC tomorrow at 1000. NPO after midnight. Hold Eliquis for procedure. Discussed procedure with patient and his daughter Shaunna via phone; both had all questions/concerns addressed to their apparent satisfaction and were agreeable to proceed. Charges/Coding Multi Select Codes Visit Charges Visit Charges: 94145 Subs Hosp L1 07/05/24 1423 Cosigner Signature (if applicable): 07/05/24 1842 CC: ~ Signed [facility]04-09-2025 Progress note [facility] Medical Records Department [address] [place] [address] Progress Note - Hospitalist 07/05/24 0831 MR#: [id number] Acct: [id number] Name: EMELIA JOHNSON Rep #:[id number] : 1950 74 From: Ginger Espitia DO PCP: Jenae Santamaria MD Status:ADM IN Location: [place] [address] Reason for Visit Reason for Visit: Nausea and vomiting with dysuria Subjective Subjective Patient frustrated that he cannot eat. Had an episode this morning where he wascoughing after he was taking his pills and eating breakfast. Speech therapy hasbeen reconsulted to evaluate him again despite his cookie fall yesterday. Thereis concern he may be aspirating. Objective Data Objective Data Vital Signs: Vital Signs Temp Pulse Resp BP Pulse Ox O2 Del Method O2 Flow Rate 98 F 88 20 H 107/55 L 93 Room Air 2 07/05/24 02:01 07/05/24 06:58 07/05/24 06:58 07/05/24 02:01 07/05/24 06:58 07/05/24 08:10 07/04/24 10:00 Oxygen Flow Rate (L/min) 2 Oxygen Delivery Method Room Air Weight: 85.8 kg Body Mass Index (BMI) 27.9 Intake & Output: Intake and Output for Last 24 Hours 07/03/24 07/04/24 07/05/24 23:59 23:59 23:59 Intake Total 580 / 580 240 / 240 120 / 120 Output Total 1455 / 1605 855 / 855 455 / 455 Balance -875 / -1025 -615 / -615 -335 / -335 Lab / Micro Data 07/05/24 04:28 07/05/24 04:28 Labs: Laboratory Results - last 24 hr 07/05/24 04:28: WBC 5.4, RBC 4.04 L, Hgb 11.9 L, Hct 37.9 L, MCV 93.8, MCH 29.5,MCHC 31.4 L, RDW Std Deviation 51.8 H, RDW Coeff of Yanira 15.0 H, Plt Count 106 L,MPV 11.8, Sodium 140, Potassium 3.5, Chloride 107, Carbon Dioxide 22.2, Anion Gap 10, BUN 15, Creatinine 1.53 H, Estim Creat Clear Calc 45.98 L, Est GFR (MDRD) Non-Af 47 L, BUN/Creatinine Ratio 9.6 L, Glucose 88, Calcium 8.9, Phosphorus 3.3, Magnesium 1.9, Total Bilirubin 0.30, AST 14, ALT 6, Alkaline Phosphatase 47, Total Protein 6.5, Albumin 3.3 L, Globulin 3.2, Albumin/GlobulinRatio 1.0 Micro: Microbiology 07/01/24 10:21 Blood Culture (Wb) - Anticubital Left Blood Culture - Preliminary No growth in 48 hours. 07/01/24 09:42 Blood Culture (Wb) - Anticubital Left Blood Culture - Preliminary No growth in 48 hours. 07/01/24 10:04 Urine Catheter - Maddox Urine Culture - Final Meth. resistant Staph. aureus 07/01/24 11:26 Mucosa - Nose SARS-CoV-2, Influenza & RSV (PCR) - Final Physical Exam Const alert, oriented x3, no apparent distress and average body habitus; Negative for healthy appearing Constitutional Narrative: Frail-appearing, elderly, white male, sitting up in a chair at the bedside reclined, appears comfortable and nontoxic at this time, very friendly General Appearance: cooperative and comfortable HEENT normocephalic and head/scalp atraumatic HEENT Narrative: Dentition is extremely poor Resp normal respiratory effort, no retractions, no use of accessory muscles and clearto auscultation bilaterally Resp Narrative: Diffusely diminished but clear Auscultation: Negative for rales, rhonchi or wheezes Cardio regular rate, regular rhythm, S1 normal heart sound, S2 normal heart sound, no murmurs, no rub, no gallops, no clicks and peripheral pulses 2+ throughout Cardio Narrative: Tachycardic, regular rhythm. GI normal to inspection, nondistended, normoactive bowel sounds, soft to palpation and non-tender GI Narrative: Ostomy left lower quadrant with good output Extremity Extremity Narrative: Decreased pedal pulses, marked left lower extremity edema with normal size rightlower extremity Neuro no focal motor deficits Neuro Narrative: Able to move all extremities however difficult with left lower extremity due to in size Speech: speech normal Psych mental status grossly normal and affect normal Psych Narrative: Extremely pleasant, eye contact is good and patient interacts appropriately Assessment & Plan Assessment/Plan (1) Femoral arteriovenous fistula, left: (2) Leukocytosis: (3) Acidosis, lactic: (4) Acute UTI: (5) Sepsis: PLAN: Plan Sepsis secondary to UTI in the setting of chronic urinary retention/aspiration pneumonia -Patient with lactic acidosis, leukocytosis, tachycardia and tachypnea -CT on presentation showed subtle ground glass opacity in the right lower lobe concerning for acutepneumonia as well as hydronephrosis and hydroureter of the right kidney suspect related to chronic reflux -Patient does have known aspiration issues -Urine culture was positive for MRSA -After review of cultures we will discontinue doxycycline and plan on linezolid to complete course.Will treat as complicated UTI given presentation and ongoing issues and the fact that he has a chronic indwelling Maddox Dysphagia -EGD done on 07/04/2024 showed grade D erosive esophagitis that was bleeding, benign-appearing esophageal stenosis that was dilated and chronic duodenitis -Continue speech therapy with diet modifications as recommended Erosive esophagitis/esophageal stenosis -Biopsies are pending next-repeat EGD in 1 month -Protonix 40 mg twice daily recommended at discharge FIOR on CKD stage IIIb -Baseline creatinine looks to be between 1.6 and 1.75 -Creatinine on presentation 2.13 -Serum creatinine currently stable in the 1.5-1.6 region communal myomata 1 Severe left lower extremity swelling secondary to AV fistula -Patient follows at [facility] with previous bilateral aortofemoral bypass and AAA repair -No DVT found -vascular surgery is following and plans for intervention on of this week Acute on chronic debility -PT/OT following -Lives with son and daughter at baseline and uses a walker -May require SNF therapy at discharge will continue to follow DM-2 -Oral agents on hold -Continue SSI -Accu-Cheks as ordered -Cardiac/carb controlled diet History of stroke/essential hypertension/hyperlipidemia -Antihypertensives are currently on hold will continue to monitor -Continue home aspirin -Continue home statin Hypothyroidism -Continue home Synthroid History of rectal cancer -Status post chemo and radiation with resection of left colon -Has a permanent colostomy since 2020 -Outpatient follow-up with oncology Peripheral vascular disease -Management per vascular surgery as above GERD -Continue on PPI History of DVT -Eliquis on hold for procedure tomorrow DVT prophylaxis -Eliquis on hold for procedure tomorrow CODE STATUS -Full code Charges/Coding Visit Charges Inpatient E&M: 76731 Subs Hosp L2 07/05/24 1713 Cosigner Signature (if applicable): CC: ~ Signed [facility]04-09-2025 Progress note Author Ginger Espitia [facility] Note Date/Time July 04, 2024 10:2 1pm [facility] Medical Records Department [address] [place] [address] Progress Note - Hospitalist 07/04/245 MR#: [id number] Acct: [id number] Name: EMELIA JOHNSON Rep #:[id number] : 1950 74 From: Ginger Espitia DO PCP: Jenae Santamaria MD Status:ADM IN Location: [place] [address] Reason for Visit Reason for Visit: Nausea and vomiting with dysuria Subjective Subjective Patient states he is feeling okay. Per discussion with vascular he does have a acute new spontaneous AV fistula in his left groin. Case was discussed by vascular with vascular at [facility] and they recommended procedure that vascular surgery here felt comfortable doing. Initially the intent was for transfer. Patient is amenable to this so he will be kept here. EGD was planned for today and pending due to history of dysphagia. Objective Data Objective Data Vital Signs: Vital Signs Temp Pulse Resp BP Pulse Ox O2 Del Method O2 Flow Rate 97.1 F L 82 16 93/59 L 90 Room Air 2 07/04/24 17:01 07/04/24 17:05 07/04/24 17:05 07/04/24 17:05 07/04/24 17:05 07/04/24 17:05 07/04/24 10:00 Oxygen Flow Rate (L/min) 2 Oxygen Delivery Method Room Air Weight: 85.8 kg Body Mass Index (BMI) 27.9 Intake & Output: Intake and Output for Last 24 Hours 07/02/24 07/03/24 07/04/24 23:59 23:59 23:59 Intake Total 425 / 425 580 / 580 0 / 0 Output Total 1325 / 1625 1455 / 1605 650 / 650 Balance -900 / -1200 -875 / -1025 -650 / -650 Lab / Micro Data 07/04/24 06:29 07/04/24 06:29 Labs: Laboratory Results - last 24 hr 07/01/24 09:42: Lactic Acid 2.4 H* 07/01/24 12:48: Lactic Acid 2.9 H* 07/04/24 06:29: WBC 6.1, RBC 4.20 L, Hgb 12.5 L, Hct 39.4 L, MCV 93.8, MCH 29.8,MCHC 31.7 L, RDW Std Deviation 52.1 H, RDW Coeff of Yanira 15.0 H, Plt Count 100 L,MPV 11.5, Sodium 139, Potassium 3.7, Chloride 106, Carbon Dioxide 20.8 L, Anion Gap 12, BUN 16, Creatinine 1.58 H, Estim Creat Clear Calc 44.52 L, Est GFR (MDRD) Non-Af 46 L, BUN/Creatinine Ratio 9.8 L, Glucose 112 H, Calcium 8.9 Micro: Microbiology 07/01/24 10:21 Blood Culture (Wb) - Anticubital Left Blood Culture - Preliminary No growth in 48 hours. 07/01/24 09:42 Blood Culture (Wb) - Anticubital Left Blood Culture - Preliminary No growth in 48 hours. 07/01/24 10:04 Urine Catheter - Maddox Urine Culture - Final Meth. resistant Staph. aureus 07/01/24 11:26 Mucosa - Nose SARS-CoV-2, Influenza & RSV (PCR) - Final Radiography Diagnostic Testing: Radiology Impression Abdomen/Pelvis CTA 07/03/24 13:40 IMPRESSION: 1. 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 There is moderate ill- defined thickening with enhancement and left inguinal lymphadenopathy, most compatible with infectious etiology. Additional considerations include iatrogenic etiology or secondary to recent procedure. 2. Layering hyperdensity within the right external iliac vein subjacent to the bypassed right common iliac artery, concerning for additional AVM, however this is difficult to assess without venous phase imaging. 3. Occlusion of the right femoral and deep femoral arteries with severe stenosis/occlusion of the trifurcation arteries. 4. Diffuse dilation with air-fluid levels throughout the small bowel. No pneumoperitoneum. If concern for bowel ischemia, recommend CT abdomen pelvis with venous phase imaging. Dr. Ramirez discussed these findings with Dr. Thompson, vascular surgeon, via telephone at 6:48 PM on 07/03/24. Reading Location: [facility] Physical Exam Const alert, oriented x3, no apparent distress and average body habitus; Negative for healthy appearing Constitutional Narrative: Frail-appearing, elderly, white male, sitting up in a chair at the bedside reclined, appears comfortable and nontoxic at this time, very friendly HEENT head/scalp atraumatic and moist oral mucous membranes HEENT Narrative: Dentition is poor, Mallampati is 2, no thrush Head and Scalp: normocephalic Resp normal respiratory effort, no retractions, no use of accessory muscles and clearto auscultation bilaterally Resp Narrative: Diffusely diminished but clear Auscultation: Negative for rales, rhonchi or wheezes Cardio regular rate, regular rhythm, S1 normal heart sound, S2 normal heart sound, no murmurs, no rub, no gallops and no clicks GI normal to inspection, nondistended, normoactive bowel sounds, soft to palpation and non-tender GI Narrative: Ostomy left lower quadrant with good output Extremity Extremity Narrative: Decreased pedal pulses, marked left lower extremity edema with normal size rightlower extremity Neuro oriented x3, moves all extremities and no focal motor deficits Neuro Narrative: Able to move all extremities however difficult with left lower extremity due to in size Psych affect normal Psych Narrative: Extremely pleasant, eye contact is good and patient interacts appropriately Assessment & Plan Assessment/Plan (1) Femoral arteriovenous fistula, left: (2) Leukocytosis: (3) Acidosis, lactic: (4) Acute UTI: (5) Sepsis: PLAN: Plan Sepsis secondary to UTI in the setting of chronic urinary retention/aspiration pneumonia -Patient with lactic acidosis, leukocytosis, tachycardia and tachypnea -UA was suggestive infection -CT on presentation showed subtle groundglass opacity in the right lower lobe concerning for acute pneumonia as well as hydronephrosis and hydroureter of the right kidney suspect related to chronic reflux -Patient does have known aspiration issues -Patient on vancomycin and Zosyn at the time of admission he. -Urine culture was positive for MRSA -Will continue doxycycline initial plan was for 7-day course however being complicated will extend course to 14 days Dysphagia -EGD to be performed today. N.p.o. for now next-speech therapy is following FIOR on CKD stage IIIb -Baseline creatinine looks to be between 1.6 and 1.75 -Creatinine on presentation 2.13 -Resolving -Continue to monitor Hyperkalemia -Resolved Lactic acidosis -Resolved Severe left lower extremity swelling secondary to AV fistula -Patient follows at [facility] Main campus with previous bilateral aortofemoral bypass and AAA repair -No DVT found -vascular surgery is following and plans for intervention on of this week Acute on chronic debility -PT/OT following -Lives with son and daughter at baseline and uses a walker -May require SNF therapy at discharge will continue to follow DM-2 -Oral agents on hold -Continue SSI -Accu-Cheks as ordered -Cardiac/carb controlled diet History of stroke/essential hypertension/hyperlipidemia -Antihypertensives are currently on hold will continue to monitor -Continue home aspirin -Continue home statin Hypothyroidism -Continue home Synthroid History of rectal cancer -Status post chemo and radiation with resection of left colon -Has a permanent colostomy since 2020 -Outpatient follow-up with oncology Peripheral vascular disease -Management per vascular surgery as above GERD -Continue on PPI History of DVT -Continue home Eliquis DVT prophylaxis -Continue home Eliquis CODE STATUS -Full code Charges/Coding Visit Charges Inpatient E&M: 04183 Subs Hosp L2 07/04/241 <Electronically signed by Ginger Espitia DO> Cosigner Signature (if applicable): CC: ~ Signed [facility] Work Phone: 1(414) 951-847804-08-2025 Consult note Author Brandon [facility] Note Date/Time July 04, 2024 8:35 pm [facility] Medical Records Department [address] [place] [address] Anesthesia Postop Eval II 07/04/242033 MR#: [id number] Acct: [id number] Name: EMELIA JOHNSON Rep #:[id number] : 1950 74 From: Brandon David MD PCP: Jenae Santamaria MD Status:ADM IN Y Race: C Location: [place] [address] 0-1 Anesthesia Postop Eval I Sum Postop Eval Completion status Anesthesia document: Postop Eval 1 completed: Yes Anesthesia Postop Eval I Summary Anesthesia Postop Eval I Summary: Anesthesia Postop Eval I: Assessment Summary Airway patent Yes 07/04/24 17:01 [email or web address] Spontaneous unlabored Yes 07/04/24 17:01 [email or web address] respirations Mental status Asleep 07/04/24 17:01 [email or web address] nausea No 07/04/24 17:01 [email or web address] Vomiting No 07/04/24 17:01 [email or web address] Anesthesia Postop Eval I: Fluid Summary Crystalloid volume administer 30 07/04/24 17:01 [email or web address] (ml) Colloids volume administered ( ml) Blood Product volume administered (ml) Total IV fluid infused 30 07/04/24 17:01 [email or web address] Anesthesia Postop Eval I: Summary Notes Anesthesia Complication No 07/04/24 17:01 [email or web address] Anesthesia Complication Comment: Post-operative progress note Anesthesia: Postop Eval II Evaluation Mental status: Awake and Calm Pain Level: 0 nausea: No Vomiting: No Complications Anesthesia Complication: No 07/04/242034 <Electronically signed by Brandon nowak MD> Date _ Brandon David MD Cosigner Signature: Date CC: ~ Signed [facility] Work Phone: 1(987) 382-686804-08-2025 Progress note [facility] Medical Records Department [address] [place] [address] Progress Note - Hospitalist 07/04/24 1707 MR#: [id number] Acct: [id number] Name: EMELIA JOHNSON Rep #:[id number] : 1950 74 From: Ginger Espitia DO PCP: Jenae Santamaria MD Status:ADM IN Location: [place] [address] Reason for Visit Reason for Visit: Nausea and vomiting with dysuria Subjective Subjective Patient states he is feeling okay. Per discussion with vascular he does have a acute new spontaneous AV fistula in his left groin. Case was discussed by vascular with vascular at [facility] and they recommended procedure that vascular surgery here felt comfortable doing. Initially the intent was for transfer. Patient is amenable to this so he will be kept here. EGD was planned for today and pending due to history of dysphagia. Objective Data Objective Data Vital Signs: Vital Signs Temp Pulse Resp BP Pulse Ox O2 Del Method O2 Flow Rate 97.1 F L 82 16 93/59 L 90 Room Air 2 07/04/24 17:01 07/04/24 17:05 07/04/24 17:05 07/04/24 17:05 07/04/24 17:05 07/04/24 17:05 07/04/24 10:00 Oxygen Flow Rate (L/min) 2 Oxygen Delivery Method Room Air Weight: 85.8 kg Body Mass Index (BMI) 27.9 Intake & Output: Intake and Output for Last 24 Hours 07/02/24 07/03/24 07/04/24 23:59 23:59 23:59 Intake Total 425 / 425 580 / 580 0 / 0 Output Total 1325 / 1625 1455 / 1605 650 / 650 Balance -900 / -1200 -875 / -1025 -650 / -650 Lab / Micro Data 07/04/24 06:29 07/04/24 06:29 Labs: Laboratory Results - last 24 hr 07/01/24 09:42: Lactic Acid 2.4 H* 07/01/24 12:48: Lactic Acid 2.9 H* 07/04/24 06:29: WBC 6.1, RBC 4.20 L, Hgb 12.5 L, Hct 39.4 L, MCV 93.8, MCH 29.8,MCHC 31.7 L, RDW Std Deviation 52.1 H, RDW Coeff of Yanira 15.0 H, Plt Count 100 L,MPV 11.5, Sodium 139, Potassium 3.7, Chloride 106, Carbon Dioxide 20.8 L, Anion Gap 12, BUN 16, Creatinine 1.58 H, Estim Creat Clear Calc 44.52 L, Est GFR (MDRD) Non-Af 46 L, BUN/Creatinine Ratio 9.8 L, Glucose 112 H, Calcium 8.9 Micro: Microbiology 07/01/24 10:21 Blood Culture (Wb) - Anticubital Left Blood Culture - Preliminary No growth in 48 hours. 07/01/24 09:42 Blood Culture (Wb) - Anticubital Left Blood Culture - Preliminary No growth in 48 hours. 07/01/24 10:04 Urine Catheter - Maddox Urine Culture - Final Meth. resistant Staph. aureus 07/01/24 11:26 Mucosa - Nose SARS-CoV-2, Influenza & RSV (PCR) - Final Radiography Diagnostic Testing: Radiology Impression Abdomen/Pelvis CTA 07/03/24 13:40 IMPRESSION: 1. 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 There is moderate ill- defined thickening with enhancement and left inguinal lymphadenopathy, most compatible with infectious etiology. Additional considerations include iatrogenic etiology or secondary to recent procedure. 2. Layering hyperdensity within the right external iliac vein subjacent to the bypassed right common iliac artery, concerning for additional AVM, however this is difficult to assess without venous phase imaging. 3. Occlusion of the right femoral and deep femoral arteries with severe stenosis/occlusion of the trifurcation arteries. 4. Diffuse dilation with air-fluid levels throughout the small bowel. No pneumoperitoneum. If concern for bowel ischemia, recommend CT abdomen pelvis with venous phase imaging. Dr. Ramirez discussed these findings with Dr. Thompson, vascular surgeon, via telephone at 6:48 PM on 07/03/24. Reading Location: [facility] Physical Exam Const alert, oriented x3, no apparent distress and average body habitus; Negative for healthy appearing Constitutional Narrative: Frail-appearing, elderly, white male, sitting up in a chair at the bedside reclined, appears comfortable and nontoxic at this time, very friendly HEENT head/scalp atraumatic and moist oral mucous membranes HEENT Narrative: Dentition is poor, Mallampati is 2, no thrush Head and Scalp: normocephalic Resp normal respiratory effort, no retractions, no use of accessory muscles and clearto auscultation bilaterally Resp Narrative: Diffusely diminished but clear Auscultation: Negative for rales, rhonchi or wheezes Cardio regular rate, regular rhythm, S1 normal heart sound, S2 normal heart sound, no murmurs, no rub, no gallops and no clicks GI normal to inspection, nondistended, normoactive bowel sounds, soft to palpation and non-tender GI Narrative: Ostomy left lower quadrant with good output Extremity Extremity Narrative: Decreased pedal pulses, marked left lower extremity edema with normal size rightlower extremity Neuro oriented x3, moves all extremities and no focal motor deficits Neuro Narrative: Able to move all extremities however difficult with left lower extremity due to in size Psych affect normal Psych Narrative: Extremely pleasant, eye contact is good and patient interacts appropriately Assessment & Plan Assessment/Plan (1) Femoral arteriovenous fistula, left: (2) Leukocytosis: (3) Acidosis, lactic: (4) Acute UTI: (5) Sepsis: PLAN: Plan Sepsis secondary to UTI in the setting of chronic urinary retention/aspiration pneumonia -Patient with lactic acidosis, leukocytosis, tachycardia and tachypnea -UA was suggestive infection -CT on presentation showed subtle groundglass opacity in the right lower lobe concerning for acute pneumonia as well as hydronephrosis and hydroureter of the right kidney suspect related to chronic reflux -Patient does have known aspiration issues -Patient on vancomycin and Zosyn at the time of admission he. -Urine culture was positive for MRSA -Will continue doxycycline initial plan was for 7-day course however being complicated will extend course to 14 days Dysphagia -EGD to be performed today. N.p.o. for now next-speech therapy is following FIOR on CKD stage IIIb -Baseline creatinine looks to be between 1.6 and 1.75 -Creatinine on presentation 2.13 -Resolving -Continue to monitor Hyperkalemia -Resolved Lactic acidosis -Resolved Severe left lower extremity swelling secondary to AV fistula -Patient follows at [facility] with previous bilateral aortofemoral bypass and AAA repair -No DVT found -vascular surgery is following and plans for intervention on of this week Acute on chronic debility -PT/OT following -Lives with son and daughter at baseline and uses a walker -May require SNF therapy at discharge will continue to follow DM-2 -Oral agents on hold -Continue SSI -Accu-Cheks as ordered -Cardiac/carb controlled diet History of stroke/essential hypertension/hyperlipidemia -Antihypertensives are currently on hold will continue to monitor -Continue home aspirin -Continue home statin Hypothyroidism -Continue home Synthroid History of rectal cancer -Status post chemo and radiation with resection of left colon -Has a permanent colostomy since 2020 -Outpatient follow-up with oncology Peripheral vascular disease -Management per vascular surgery as above GERD -Continue on PPI History of DVT -Continue home Eliquis DVT prophylaxis -Continue home Eliquis CODE STATUS -Full code Charges/Coding Visit Charges Inpatient E&M: 06542 Subs Hosp L2 07/04/242220 Cosigner Signature (if applicable): CC: ~ Signed [facility]04-08-2025 Consult note [facility] Medical Records Department [address] [place] [address] Anesthesia Postop Eval II 07/04/242033 MR#: [id number] Acct: [id number] Name: EMELIA JOHNSON Rep #:[id number] : 1950 74 From: Brandon David MD PCP: Jenae Santamaria MD Status:ADM IN Y Race: C Location: [place] [address] 0-1 Anesthesia Postop Eval I Sum Postop Eval Completion status Anesthesia document: Postop Eval 1 completed: Yes Anesthesia Postop Eval I Summary Anesthesia Postop Eval I Summary: Anesthesia Postop Eval I: Assessment Summary Airway patent Yes 07/04/24 17:01 [email or web address] Spontaneous unlabored Yes 07/04/24 17:01 [email or web address] respirations Mental status Asleep 07/04/24 17:01 [email or web address] nausea No 07/04/24 17:01 [email or web address] Vomiting No 07/04/24 17:01 [email or web address] Anesthesia Postop Eval I: Fluid Summary Crystalloid volume administer 30 07/04/24 17:01 [email or web address] (ml) Colloids volume administered ( ml) Blood Product volume administered (ml) Total IV fluid infused 30 07/04/24 17:01 [email or web address] Anesthesia Postop Eval I: Summary Notes Anesthesia Complication No 07/04/24 17:01 [email or web address] Anesthesia Complication Comment: Post-operative progress note Anesthesia: Postop Eval II Evaluation Mental status: Awake and Calm Pain Level: 0 nausea: No Vomiting: No Complications Anesthesia Complication: No 07/04/242034 eliu MURILLO> Date _ Brandon David MD Cosigner Signature: Date CC: ~ Signed [facility]04-08-2025 Consult note Author Jacey Araya [facility] Note Date/Time July 04, 2024 5:14 pm [facility] Medical Records Department [address] [place] [address] Consultation - Surgical 07/04/24932 MR#: [id number] Acct: [id number] Name: EMELIA JOHNSON Rep #:[id number] : 1950 74 From: Jacey RODRIGUEZ PCP: Jenae Santamaria MD Status:ADM IN Location: [place] [id number]- Documented by User: MICHAEL Frost 07/04/24 10:59 Assessment & Plan Assessment/Plan (1) Peripheral arterial disease with history of revascularization: (2) Femoral arteriovenous fistula, left: PLAN: Plan Reviewed CTA images; Findings of likely iatrogenic L femoral AVF, inflammation around prior graft; these appear to be acute findings. This would require surgical intervention which would best be performed at a tertiary facility. I discussed this with the patient and his daughter. Patient does wish to proceed with surgical intervention if necessary. Both are understanding of the need for transfer to tertiary facility; all of their questions and concerns were addressed to their apparent satisfaction. Recommend transfer to [facility]. HPI Consult Data Date of Consult: 07/04/24 HPI Narrative HPI Narrative: EMELIA JOHNSON, is a 74 M who presented to [facility] ER 07/02/23 with concern for UTI withdysuria, fevers, malaise. UTI was found and he was admitted for management. On admission, also noticed to have significant LLE edema and venous duplex was obtained which demonstrated arterialized flow through the LLE venous system and otherwise negative for acute DVT. 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 There is moderate ill-defined thickening with enhancement and left inguinal lymphadenopathy, most compatible with infectious etiology." I saw patient this morning resting in bed. He has had some chronic LLE edema secondary to his history of prior DVTs in 05/2023; however, he reports his swelling acutely worsened late last week. He has not noticed any area of redness, excess warmth, or focal swelling in his groin/lower extremity. I also spoke to his daughter Shaunna, she felt she noticed his LLE swelling appeared acutely worse just the day before his presentation to [facility]. As noted, he has had prior duplex studies for his DVTs, none of which demonstrated findings consistent with possible AVF. He has a history of prior AAA repair with aortobiiliac graft performed at [facility] and prior R CEA; his recent vascular surgical care has been through [facility]. [facility] Medical History MRSA (methicillin resistant staph aureus) culture positive Wears glasses Low iron Stroke/cerebrovascular accident Former smoker Colostomy in place Family history of abdominal aortic aneurysm repair DVT (deep venous thrombosis) Enteritis Cholelithiasis Acidosis, lactic Encephalopathy due to infection Acute hypoxemic respiratory failure Complicated urinary tract infection Severe sepsis with acute organ dysfunction Aspiration into respiratory tract FIOR (acute kidney injury) Colon cancer Home Medications ?Medication ?Instructions ?Recorded ?Last Taken ?Type finasteride 5 mg tablet 5 mg PO DAILY prostate 06/2106/30/24 History ferrous sulfate 325 mg (65 mg 325 mg PO BIDCM iron #1 TAB 06/26/23 01/09/24 Rx iron) tablet levothyroxine 100 mcg tablet 100 mcg PO DAILY@0600 #30 tabs 01/15/24 06/30/24 Rx pantoprazole 40 mg tablet,delayed 40 mg PO BID #60 tab s 01/15/24 06/30/24 Rx release albuterol sulfate 90 mcg/actuation 1 - 2 puff inhalati on 4X/DAY PRN 02/22/24 Unknown History aerosol inhaler wheezing apixaban 5 mg tablet (Eliquis) 5 mg PO BID 02/22/24 History amlodipine 5 mg tablet 5 mg PO DAILY 07/01/2406/30 History aspirin 81 mg tablet,delayed 81 mg PO DAILY 07/01/24 0 06/30/24 History release ergocalciferol (vitamin D2) 1,250 1,250 mcg PO MO 08/2006/26/24 History mcg (50,000 unit) capsule fluticasone fur. 100 mcg-umeclid 1 ea inhalation DAILY 07/01/24 06/30/24 History 62.5 mcg-vilant 25 mcg inhalat.powder (Trelegy Ellipta) icosapent ethyl 1 gram capsule 2 g PO BID 07/01/2407/21 History levothyroxine 150 mcg tablet 150 mcg PO DAILY 07/01/24 06/30/24 History linagliptin 5 mg tablet (Tradjenta) 5 mg PO DAILY 08/2006/30/24 History rosuvastatin 20 mg tablet 20 mg PO QHS 07/01/24 History Allergy/AdvReac Type Severity Reaction Status Date / Time No Known Allergies Allergy Verified 07/01/24 13:29 Surgical History Hx of abdominal surgery Hx of endarterectomy (~2020) Social History Smoking Status: Former smoker Tobacco: How many years used: 50 Physical Exam Const alert and oriented x3 General Appearance: cooperative HEENT external ears normal and external nose normal Head and Scalp: normocephalic and atraumatic Nose: external nose normal Eyes EOMs intact bilaterally General Eye: normal appearance of both eyes Neck General: normal visual inspection and trachea midline Resp normal respiratory effort, normal air movement, no retractions and no use of accessory muscles Effort and Inspection: able to speak in complete sentences; Negative for labored, grunting or stridor Cardio regular rate and regular rhythm GI GI Narrative: colostomy Extremity Extremity Narrative: Significant diffuse 3+ edema of the LLE, generally soft to palpation; no focal areas of erythema/excess warmth/fluctuance/induration Skin no rashes or lesions noted Trauma: no lacerations or abrasions Neuro oriented x3, moves all extremities and no focal motor deficits Speech: speech normal Psych mental status grossly normal Attitude: calm Lab / Micro Data 07/04/24 06:29 07/04/24 06:29 Labs: Laboratory Results - last 24 hr 07/01/24 09:42: Lactic Acid 2.4 H* 07/01/24 12:48: Lactic Acid 2.9 H* 07/04/24 06:29: WBC 6.1, RBC 4.20 L, Hgb 12.5 L, Hct 39.4 L, MCV 93.8, MCH 29.8,MCHC 31.7 L, RDW Std Deviation 52.1 H, RDW Coeff of Yanira 15.0 H, Plt Count 100 L,MPV 11.5, Sodium 139, Potassium 3.7, Chloride 106, Carbon Dioxide 20.8 L, Anion Gap 12, BUN 16, Creatinine 1.58 H, Estim Creat Clear Calc 44.52 L, Est GFR (MDRD) Non-Af 46 L, BUN/Creatinine Ratio 9.8 L, Glucose 112 H, Calcium 8.9 Micro: Microbiology 07/01/24 10:21 Blood Culture (Wb) - Anticubital Left Blood Culture - Preliminary No growth in 48 hours. 07/01/24 09:42 Blood Culture (Wb) - Anticubital Left Blood Culture - Preliminary No growth in 48 hours. 07/01/24 10:04 Urine Catheter - Maddox Urine Culture - Final Meth. resistant Staph. aureus Imaging Radiology Impression Abdomen/Pelvis CTA 07/03/24 13:40 IMPRESSION: 1. 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 There is moderate ill- defined thickening with enhancement and left inguinal lymphadenopathy, most compatible with infectious etiology. Additional considerations include iatrogenic etiology or secondary to recent procedure. 2. Layering hyperdensity within the right external iliac vein subjacent to the bypassed right common iliac artery, concerning for additional AVM, however this is difficult to assess without venous phase imaging. 3. Occlusion of the right femoral and deep femoral arteries with severe stenosis/occlusion of the trifurcation arteries. 4. Diffuse dilation with air-fluid levels throughout the small bowel. No pneumoperitoneum. If concern for bowel ischemia, recommend CT abdomen pelvis with venous phase imaging. Dr. Ramirez discussed these findings with Dr. Thompson, vascular surgeon, via telephone at 6:48 PM on 07/03/24. Reading Location: [facility] Charges/Coding Visit Charges Inpatient E&M: 90616 Init Hosp L2 Documented by User: Dr. Efraín Thompson MD 07/04/24 17:14 Assessment & Plan Assessment/Plan (1) Peripheral arterial disease with history of revascularization: (2) Femoral arteriovenous fistula, left: HPI Consult Data Date of Consult: 07/04/24 HPI Narrative HPI Narrative: EMELIA JOHNSON, is a 74 M who presented to [facility] ER 07/02/23 with concern for UTI withdysuria, fevers, malaise. UTI was found and he was admitted for management. On admission, also noticed to have significant LLE edema and venous duplex was obtained which demonstrated arterialized flow through the LLE venous system and otherwise negative for acute DVT. 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 There is moderate ill-defined thickening with enhancement and left inguinal lymphadenopathy, most compatible with infectious etiology." I saw patient this morning resting in bed. He has had some chronic LLE edema secondary to his history of prior DVTs in 05/2023; however, he reports his swelling acutely worsened late last week. He has not noticed any area of redness, excess warmth, or focal swelling in his groin/lower extremity. I also spoke to his daughter Shaunna, she felt she noticed his LLE swelling appeared acutely worse just the day before his presentation to [facility]. As noted, he has had prior duplex studies for his DVTs, none of which demonstrated findings consistent with possible AVF. He has a history of prior AAA repair with aortobiiliac graft performed at [facility] and prior R CEA; his recent vascular surgical care has been through [facility]. Case/images reviewed with [facility] vascular surgery. No overt infection visualized, but really uncertain why acute fistula/symptoms. Fistula appears to be from lateral branch of profunda femoral artery. Their recommendation was covered stent in the profunda branch to at least address fistula/venous pressures and his acute symptoms. Subsequent imaging could then be done as outpatient to further assess for infectious etiology. If patient agreeable could perform stent here; will discuss with patient/daughter. [facility] Medical History MRSA (methicillin resistant staph aureus) culture positive Wears glasses Low iron Stroke/cerebrovascular accident Former smoker Colostomy in place Family history of abdominal aortic aneurysm repair DVT (deep venous thrombosis) Enteritis Cholelithiasis Acidosis, lactic Encephalopathy due to infection Acute hypoxemic respiratory failure Complicated urinary tract infection Severe sepsis with acute organ dysfunction Aspiration into respiratory tract FIOR (acute kidney injury) Colon cancer Home Medications ?Medication ?Instructions ?Recorded ?Last Taken ?Type finasteride 5 mg tablet 5 mg PO DAILY prostate 06/2106/30/24 History ferrous sulfate 325 mg (65 mg 325 mg PO BIDCM iron #1 TAB 06/26/23 01/09/24 Rx iron) tablet levothyroxine 100 mcg tablet 100 mcg PO DAILY@0600 #30 tabs 01/15/24 06/30/24 Rx pantoprazole 40 mg tablet,delayed 40 mg PO BID #60 tab s 01/15/24 06/30/24 Rx release albuterol sulfate 90 mcg/actuation 1 - 2 puff inhalati on 4X/DAY PRN 02/22/24 Unknown History aerosol inhaler wheezing apixaban 5 mg tablet (Eliquis) 5 mg PO BID 02/22/24 History amlodipine 5 mg tablet 5 mg PO DAILY 07/01/2406/30 History aspirin 81 mg tablet,delayed 81 mg PO DAILY 07/01/24 0 06/30/24 History release ergocalciferol (vitamin D2) 1,250 1,250 mcg PO MO 08/2006/26/24 History mcg (50,000 unit) capsule fluticasone fur. 100 mcg-umeclid 1 ea inhalation DAILY 07/01/24 06/30/24 History 62.5 mcg-vilant 25 mcg inhalat.powder (Trelegy Ellipta) icosapent ethyl 1 gram capsule 2 g PO BID 07/01/2407/21 History levothyroxine 150 mcg tablet 150 mcg PO DAILY 07/01/24 06/30/24 History linagliptin 5 mg tablet (Tradjenta) 5 mg PO DAILY 08/2006/30/24 History rosuvastatin 20 mg tablet 20 mg PO QHS 07/01/24 History Allergy/AdvReac Type Severity Reaction Status Date / Time No Known Allergies Allergy Verified 07/01/24 13:29 Surgical History Hx of abdominal surgery Hx of endarterectomy (~2020) Social History Smoking Status: Former smoker Tobacco: How many years used: 50 Lab / Micro Data 07/04/24 06:29 07/04/24 06:29 07/04/24 1059 <Electronically signed by Jacey RODRIGUEZ> Cosigner Signature (if applicable): 07/04/241713 <Electronically signed by Efraín Thompson MD> CC: Jeane Santamaria MD~ Signed [facility] Work Phone: 1(457) 743-823504-08-2025 Consult note Author Bernardo Quiñones [facility] Note Date/Time July 04, 2024 5:01 pm [facility] Medical Records Department [address] [facility] [place] [address] Anesthesia Postop Eval I 07/04/241699 MR#: [id number] Acct: [id number] Name: EMELIA JOHNSON Rep #:[id number] : 1950 74 From: Bernardo Quiñones PCP: Jenae Santamaria MD Status:ADM IN Y Race: C Location: [place] [address] 0-1 Anesthesia: Postop Eval I Current Vital Signs Temperature: 97.1 F Pulse Rate: 87 Blood Pressure: 82/61 Respiratory Rate: 18 Pulse Ox: 93 Oxygen Delivery Method: Room Air Assessment Airway patent: Yes Spontaneous unlabored respirations: Yes Mental status: Asleep nausea: No Vomiting: No Anesthesia Complication: No Fluid Hydration Crystalloid volume administer (ml): 30 Total IV fluid infused: 30 Progress Note Anesthesia document: Postop Eval 1 completed: Yes 07/04/241700 <Electronically signed by Bernardo Quiñones > Date _ Bernardo Sanchez Signature: Date CC: ~ Signed [facility] Work Phone: 1([phone]) 128-585904-08-2025 Progress note Author David Ramos [facility] Note Date/Time July 04, 2024 4:29 pm [facility] Medical Records Department [address] [place] [address] Progress Note 07/04/241628 MR#: [id number] Acct: [id number] Name: EMELIA JOHNSON Rep #:[id number] : 1950 74 From: David Ramos DO PCP: Jenae Santamaria MD Status:ADM IN Location: [place] [address] Progress Note Patient is scheduled for an upper endoscopy today. All questions and concerns answered. Physical Exam Const alert and oriented x3 General Appearance: cooperative HEENT external ears normal and external nose normal Head and Scalp: normocephalic and atraumatic Nose: external nose normal Eyes EOMs intact bilaterally General Eye: normal appearance of both eyes Neck General: normal visual inspection and trachea midline Resp normal respiratory effort, normal air movement, no retractions and no use of accessory muscles Effort and Inspection: able to speak in complete sentences; Negative for labored, grunting or stridor Cardio regular rate and regular rhythm GI GI Narrative: colostomy Extremity Extremity Narrative: Significant diffuse 3+ edema of the LLE, generally soft to palpation; no focal areas of erythema/excess warmth/fluctuance/induration Skin no rashes or lesions noted Trauma: no lacerations or abrasions Neuro oriented x3, moves all extremities and no focal motor deficits Speech: speech normal Psych mental status grossly normal Attitude: calm Assessment & Plan Assessment/Plan (1) Encephalopathy acute: (2) Acute UTI: PLAN: Plan 74 yo with h/o colon cancer s/p resection with end ileostomy with possible aspiration PNA and esophageal dysphagia Dysphagia * Speech therapy on board. * He had EGD which showed evidence of eosinophilic esophagitis and benign appearing esophageal stenosis which was dilated, as well as hiatal hernia. * He will undergo a repeat egd to access his upper GI for possible etiology ofaspiration PNA. * on IV PPI History of colon cancer: has ileostomy in place. Visit Charges Inpatient E&M: 05172 Subs Hosp L2 07/04/241628 <Electronically signed by David Ramos DO> David Ramos DO Cosigner Signature (if applicable): CC: ~ Signed [facility] Work Phone: 1(897) 510-568304-08-2025 Consult note Author Brandon David [facility] Note Date/Time July 04, 2024 3:43 pm [facility] Medical Records Department [address] [place] [address] Pre-Anesthesia Evaluation 07/04/24 1535 MR#: [id number] Acct: [id number] Name: EMELIA JOHNSON Rep #:[id number] : 1950 74 From: Brandon David MD PCP: Jenae Santamaria MD Status:ADM IN Y Race: C Location: [place] [address] 0-1 ASA Classification* ASA Classification ASA Classification: 3 and E Assessment & Plan Anesthesia* Anesthesia Assessment Anesthesia Assessment: Discussed sedation and/or anesthesia options, risks, benefits, and alternatives with patient/parents/legal guardian/POA. Questions invited. The patient/parents/legal guardian/POA seems to understand and agrees to proceedwith anesthesia plan. Reviewed the physical assessment, medical history, allergy history and patient home medications list prior to surgery/procedure/anesthetic and documented any changes. Performed airway and anesthesia risk assessments. Anesthesia Type Anesthesia Type: MAC History Source History Obtained from:: Patient and Chart Anesthesia Focused Assessment* Temperature: 97.9 F Pulse Rate: 90 Blood Pressure: 113/64 Respiratory Rate: 18 Pulse Ox: 93 Oxygen Delivery Method: Room Air Airway Assessment Mouth opens: >3 cm Mallampati Score: III Teeth Condition: Chipped/Broken (Patien has poor dentition.) and Missing (Missing multiple teeth.) Neck Range of motion (ROM): Limited ROM Focused Labs Anesthesia Preop lab: CBC WBC 6.1 K/mm3 (4.4-11.0) 07/04/24 06:07/04/24 RBC 4.20 M/mm3 (4.6-6.2) L 07/04/24 06:07/04/24 Hgb 12.5 g/dL (13.0-16.5) L 07/04/24 06: 5 Hct 39.4 % (40-54) L 07/04/24 06:07/04/24 Plt Count 100 K/mm3 (150-450) L 07/04/24 06:07/04/24 CHEMISTRY Potassium 3.7 mmol/L (3.3-5.1) 07/04/24 06:25 Sodium 139 mmol/L (133-145) 07/04/24 06:29 07/04/24 Magnesium 2.0 mg/dL (1.6-2.6) 01/10/24 15:09 01/10/24 Phosphorus 2.9 mg/dL (2.5-4.9) 01/10/24 15:09 01/10/24 BUN 16 mg/dL (4-19) 07/04/24 06:07/04/24 Creatinine 1.58 mg/dL (0.70-1.20) H 07/04/24 06:29 Glucose 112 mg/dL (70-99) H 07/04/24 06:07/04/24 POC Glucose 202 mg/dL (74-106) H 02/23/24 11:30 02/23/24 TSH 0.599 uIU/mL (0.358-3.740) 01/17/24 06:50 12/28 04/21 COAG PT 19.3 SECONDS (11.7-14.9) H 01/10/24 17:00 12/27 07/20 Pre-Assessment Diagnosis/Proposed Procedure Planned Operative Procedure(s): Esophagogastroduodenoscopy with possible cauteryand/or injection therapy. 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 When Was Last Pacemaker Check QUESTION #4 FULL TEXT: You/Your Family Experience fever (hyperthermia) with Anesthesia Last Oral Intake Last Oral intake: Last Oral Intake NPO since 00:00 07/04/24 15:22 Meds taken in AM with sips of No 07/04/24 15:22 water? Meds patient instructed to take am of surgery PONV PONV - spa manager: PONV - spa manager Female HX of Motion Sickness HX of N/V After Surgery Non-Smoker Duration of Surgery greater than 60 minutes Number of Risk Factors PONV Score Height & Weight Height & Weight: Anesthesia: Height & Weight Height 5 ft 9 in 07/04/24 15:22 Weight: 85.8 kg 07/04/24 15:22 Body Mass Index (BMI) 27.9 07/04/24 15:22 Respiratory Assessment Respiratory Assessment - spa manager: Respiratory Tract Infection Hx - spa manager Hx Respiratory Tract Infection No 07/04/24 15:23 STOP Sleep Apnea STOP Sleep Apnea - spa manager: STOP Sleep Apnea - spa manager Hx Hypertension No 07/02/24 13:20 Hx Sleep Apnea No 07/01/24 13:07 CPAP BIPAP Do you snore loudly (louder No 07/01/24 13:07 than talking or can be heard Do you often feel tired/ No 07/01/24 13:07 fatigued/ sleepy during daytime? Has anyone observed you stop No 07/01/24 13:07 breathing during sleep? STOP Results Negative 07/01/24 13:07 QUESTION #5 FULL TEXT : Do you snore loudly (louder than talking or can be heard through closed doors)? 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 Specify any problems Hx of Preganancy in last 3 N/A 07/01/24 13:07 Months Nurse Filling Out Transfusion RVIZZO 07/01/24 13:07 & Questions: Date: 07/01/24 07/01/24 13:07 Time: 13:20 07/01/24 13:07 Patient unable to answer at this time (ie. confused, unrespo /Reproduction History /Reproductive History - spa manager: /Reproductive Hx- spa manager Hx Now No 07/04/24 15:23 Gestational Age (in weeks): EDC: Hx Hx Para Hx Section SAB No 07/04/24 15:23 Active Medications Active Medications: Current Medications Generic Name Dose Route Start Last Admin Trade Name Freq PRN Reason Stop Dose Admin Acetaminophen 650 mg 07/01/24 13:08 Acetaminophen 325 Mg Tablet PO Q6H PRN PRN Pain 1-10 Or Fever>100.7 Albuterol Sulfate 2.5 mg 07/01/24 13:16 Albuterol 2.5 Mg/3 Ml Vial.Neb. INHALATION Q4H PRN wheezing Albuterol/Ipratropium 3 ml 07/01/24 13:15 07/04/24 12:38 Ipratropium/Albuterol Sulfate 3 Ml Ampul.Neb INHALATION 3 ml Q6HWA.RT BRISEYDA Administration Apixaban 5 mg 07/01/24 22:00 07/04/24 08:30 Apixaban 5 Mg Tablet PO Not Given BID BRISEYDA Aspirin 81 mg 07/02/24 08:00 07/04/24 08:30 Aspirin E.C. 81 Mg Tablet PO Not Given BREAKFAST BRISEYDA Atorvastatin Calcium 40 mg 07/01/24 22:00 07/03/24 20:58 Atorvastatin Calcium 40 Mg Tablet PO 40 mg QHS BRISEYDA Administration Budesonide 0.5 mg 07/01/24 13:15 07/04/24 07:25 Budesonide Respules 0.5 Mg/2 Ml Ampul.Neb. INHALATION 0.5 mg Q12H.RT BRISEYDA Administration Doxycycline Monohydrate 100 mg 07/03/24 22:00 07/04/24 10:59 Doxycycline 100 Mg Capsule PO 07/07/24 22:01 Not Given BID BRISEYDA Finasteride 5 mg 07/02/24 10:00 07/04/24 08:31 Finasteride 5 Mg Tablet PO Not Given DAILY BRISEYDA Sodium Chloride 100 mls @ 15 mls/hr 07/01/24 13:38 IV .Q6H40M PRN Saline Flush Sodium Chloride 100 mls @ 15 mls/hr 07/01/24 13:38 IV .Q6H40M PRN Additional IVPB Infusion Icosapent Ethyl 2 gm 07/01/24 22:00 07/04/24 08:31 Icosapent Ethyl 1 Gm Capsule PO Not Given BID BRISEYDA Levothyroxine Sodium 150 mcg 07/02/24 06:00 07/04/24 05:39 Levothyroxine 150 Mcg Tablet PO Not Given DAILY@0600 BRISEYDA Melatonin 3 mg 07/01/24 13:08 Melatonin 3 Mg Tablet PO QHS PRN PRN INSOMNIA Nystatin 1 applic 07/01/24 22:30 07/04/24 14:35 Nystatin Powder 15gm Bottle TOPICAL 1 applic TID BRISEYDA Administration Protocol Ondansetron HCl 4 mg 07/01/24 13:08 07/01/24 13:50 Ondansetron 4 Mg/2 Ml Vial IV 4 mg Q8H PRN PRN Administration NAUSEA/VOMITING Pantoprazole Sodium 40 mg 07/01/24 22:00 07/04/24 08:31 Pantoprazole Sodium 40 Mg Tablet PO Not Given BID BRISEYDA Sodium Chloride 10 - 40 ml 07/01/24 13:22 07/01/24 21:17 0.9% Saline Lock 10 Ml Syringe IV 10 ml UD PRN Administration SALINE FLUSH Sodium Chloride 10 - 40 ml 07/01/24 13:38 0.9% Saline Lock 10 Ml Syringe IV UD PRN SALINE FLUSH [facility] Medical History MRSA (methicillin resistant staph aureus) culture positive Wears glasses Low iron Stroke/cerebrovascular accident Former smoker Colostomy in place Family history of abdominal aortic aneurysm repair DVT (deep venous thrombosis) Enteritis Cholelithiasis Acidosis, lactic Encephalopathy due to infection Acute hypoxemic respiratory failure Complicated urinary tract infection Severe sepsis with acute organ dysfunction Aspiration into respiratory tract FIOR (acute kidney injury) Colon cancer Home Medications ?Medication ?Instructions ?Recorded ?Last Taken ?Type finasteride 5 mg tablet 5 mg PO DAILY prostate 06/2106/30/24 History ferrous sulfate 325 mg (65 mg 325 mg PO BIDCM iron #1 TAB 06/26/23 01/09/24 Rx iron) tablet levothyroxine 100 mcg tablet 100 mcg PO DAILY@0600 #30 tabs 01/15/24 06/30/24 Rx pantoprazole 40 mg tablet,delayed 40 mg PO BID #60 tab s 01/15/24 06/30/24 Rx release albuterol sulfate 90 mcg/actuation 1 - 2 puff inhalati on 4X/DAY PRN 02/22/24 Unknown History aerosol inhaler wheezing apixaban 5 mg tablet (Eliquis) 5 mg PO BID 02/22/24 History amlodipine 5 mg tablet 5 mg PO DAILY 07/01/2406/30 History aspirin 81 mg tablet,delayed 81 mg PO DAILY 07/01/24 0 06/30/24 History release ergocalciferol (vitamin D2) 1,250 1,250 mcg PO MO 08/2006/26/24 History mcg (50,000 unit) capsule fluticasone fur. 100 mcg-umeclid 1 ea inhalation DAILY 07/01/24 06/30/24 History 62.5 mcg-vilant 25 mcg inhalat.powder (Trelegy Ellipta) icosapent ethyl 1 gram capsule 2 g PO BID 07/01/2407/21 History levothyroxine 150 mcg tablet 150 mcg PO DAILY 07/01/24 06/30/24 History linagliptin 5 mg tablet (Tradjenta) 5 mg PO DAILY 08/2006/30/24 History rosuvastatin 20 mg tablet 20 mg PO QHS 07/01/24 History Allergy/AdvReac Type Severity Reaction Status Date / Time No Known Allergies Allergy Verified 07/01/24 13:29 Surgical History Hx of abdominal surgery Hx of endarterectomy (~2020) Social History Smoking Status: Former smoker Tobacco: How many years used: 50 Review of Systems (Anesthesia) ROS Narrative System reviewed and no additional complaints, except as documented. 07/04/24 4525 <Electronically signed by Brandon nowak MD> Date _ Brandon David MD Cosigner Signature: Date CC: ~ Signed [facility] Work Phone: 1(142) 841-572104-08-2025 Consult note [facility] Medical Records Department [address] [place] [address] Consultation - Surgical 07/04/24 0933 MR#: [id number] Acct: [id number] Name: EMELIA JOHNSON Rep #:[id number] : 1950 74 From: Jacey RODRIGUEZ PCP: Jenae Santamaria MD Status:ADM IN Location: [place] [id number] Documented by User: MICHAEL Frost 07/04/24 10:59 Assessment & Plan Assessment/Plan (1) Peripheral arterial disease with history of revascularization: (2) Femoral arteriovenous fistula, left: PLAN: Plan Reviewed CTA images; Findings of likely iatrogenic L femoral AVF, inflammation around prior graft; these appear to be acute findings. This would require surgical intervention which would best be performed at a tertiary facility. I discussed this with the patient and his daughter. Patient does wish to proceed with surgical intervention if necessary. Both are understanding of the need for transfer to tertiary facility; all of their questions and concerns were addressed to their apparent satisfaction. Recommend transfer to F. HPI Consult Data Date of Consult: 07/04/24 HPI Narrative HPI Narrative: EMELIA JOHNSON, is a 74 M who presented to [facility] ER 07/02/23 with concern for UTI withdysuria, fevers, malaise. UTI was found and he was admitted for management. On admission, also noticed to have significant LLE edema and venous duplex was obtained which demonstrated arterialized flow through the LLE venous system and otherwise negative for acute DVT. 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 There is moderate ill-defined thickening with enhancement and left inguinal lymphadenopathy, most compatible with infectious etiology." I saw patient this morning resting in bed. He has had some chronic LLE edema secondary to his history of prior DVTs in 05/2023; however, he reports his swelling acutely worsened late last week. He has not noticed any area of redness, excess warmth, or focal swelling in his groin/lower extremity. I also spoke to his daughter Shaunna, she felt she noticed his LLE swelling appeared acutely worse just the day before his presentation to [facility]. As noted, he has had prior duplex studies for his DVTs, noneof which demonstrated findings consistent with possible AVF. He has a history of prior AAA repair with aortobiiliac graft performed at [facility] and prior R CEA; his recent vascular surgical care has been through [facility]. [facility] Medical History MRSA (methicillin resistant staph aureus) culture positive Wears glasses Low iron Stroke/cerebrovascular accident Former smoker Colostomy in place Family history of abdominal aortic aneurysm repair DVT (deep venous thrombosis) Enteritis Cholelithiasis Acidosis, lactic Encephalopathy due to infection Acute hypoxemic respiratory failure Complicated urinary tract infection Severe sepsis with acute organ dysfunction Aspiration into respiratory tract FIOR (acute kidney injury) Colon cancer Home Medications ?Medication ?Instructions ?Recorded ?Last Taken ?Type finasteride 5 mg tablet 5 mg PO DAILY prostate 06/2106/30/24 History ferrous sulfate 325 mg (65 mg 325 mg PO BIDCM iron #1 TAB 06/26/23 01/09/24 Rx iron) tablet levothyroxine 100 mcg tablet 100 mcg PO DAILY@0600 #30 tabs 01/15/24 06/30/24 Rx pantoprazole 40 mg tablet,delayed 40 mg PO BID #60 tab s 01/15/24 06/30/24 Rx release albuterol sulfate 90 mcg/actuation 1 - 2 puff inhalati on 4X/DAY PRN 02/22/24 Unknown History aerosol inhaler wheezing apixaban 5 mg tablet (Eliquis) 5 mg PO BID 02/22/24 History amlodipine 5 mg tablet 5 mg PO DAILY 07/01/2406/30 History aspirin 81 mg tablet,delayed 81 mg PO DAILY 07/01/24 0 06/30/24 History release ergocalciferol (vitamin D2) 1,250 1,250 mcg PO MO 08/2006/26/24 History mcg (50,000 unit) capsule fluticasone fur. 100 mcg-umeclid 1 ea inhalation DAILY 07/01/24 06/30/24 History 62.5 mcg-vilant 25 mcg inhalat.powder (Trelegy Ellipta) icosapent ethyl 1 gram capsule 2 g PO BID 07/01/2407/21 History levothyroxine 150 mcg tablet 150 mcg PO DAILY 07/01/24 06/30/24 History linagliptin 5 mg tablet (Tradjenta) 5 mg PO DAILY 08/2006/30/24 History rosuvastatin 20 mg tablet 20 mg PO QHS 07/01/24 History Allergy/AdvReac Type Severity Reaction Status Date / Time No Known Allergies Allergy Verified 07/01/24 13:29 Surgical History Hx of abdominal surgery Hx of endarterectomy (~2020) Social History Smoking Status: Former smoker Tobacco: How many years used: 50 Physical Exam Const alert and oriented x3 General Appearance: cooperative HEENT external ears normal and external nose normal Head and Scalp: normocephalic and atraumatic Nose: external nose normal Eyes EOMs intact bilaterally General Eye: normal appearance of both eyes Neck General: normal visual inspection and trachea midline Resp normal respiratory effort, normal air movement, no retractions and no use of accessory muscles Effort and Inspection: able to speak in complete sentences; Negative for labored, grunting or stridor Cardio regular rate and regular rhythm GI GI Narrative: colostomy Extremity Extremity Narrative: Significant diffuse 3+ edema of the LLE, generally soft to palpation; no focal areas of erythema/excess warmth/fluctuance/induration Skin no rashes or lesions noted Trauma: no lacerations or abrasions Neuro oriented x3, moves all extremities and no focal motor deficits Speech: speech normal Psych mental status grossly normal Attitude: calm Lab / Micro Data 07/04/24 06:29 07/04/24 06:29 Labs: Laboratory Results - last 24 hr 07/01/24 09:42: Lactic Acid 2.4 H* 07/01/24 12:48: Lactic Acid 2.9 H* 07/04/24 06:29: WBC 6.1, RBC 4.20 L, Hgb 12.5 L, Hct 39.4 L, MCV 93.8, MCH 29.8,MCHC 31.7 L, RDW Std Deviation 52.1 H, RDW Coeff of Yanira 15.0 H, Plt Count 100 L,MPV 11.5, Sodium 139, Potassium 3.7, Chloride 106, Carbon Dioxide 20.8 L, Anion Gap 12, BUN 16, Creatinine 1.58 H, Estim Creat Clear Calc 44.52 L, Est GFR (MDRD) Non-Af 46 L, BUN/Creatinine Ratio 9.8 L, Glucose 112 H, Calcium 8.9 Micro: Microbiology 07/01/24 10:21 Blood Culture (Wb) - Anticubital Left Blood Culture - Preliminary No growth in 48 hours. 07/01/24 09:42 Blood Culture (Wb) - Anticubital Left Blood Culture - Preliminary No growth in 48 hours. 07/01/24 10:04 Urine Catheter - Maddox Urine Culture - Final Meth. resistant Staph. aureus Imaging Radiology Impression Abdomen/Pelvis CTA 07/03/24 13:40 IMPRESSION: 1. 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 There is moderate ill- defined thickening with enhancement and left inguinal lymphadenopathy, most compatible with infectious etiology. Additional considerations include iatrogenic etiology or secondary to recent procedure. 2. Layering hyperdensity within the right external iliac vein subjacent to the bypassed right common iliac artery, concerning for additional AVM, however this is difficult to assess without venous phase imaging. 3. Occlusion of the right femoral and deep femoral arteries with severe stenosis/occlusion of the trifurcation arteries. 4. Diffuse dilation with air-fluid levels throughout the small bowel. No pneumoperitoneum. If concern for bowel ischemia, recommend CT abdomen pelvis with venous phase imaging. Dr. Ramirez discussed these findings with Dr. Thompson, vascular surgeon, via telephone at 6:48 PM on 07/03/24. Reading Location: [id number] Charges/Coding Visit Charges Inpatient E&M: 42780 Init Hosp L2 Documented by User: Dr. Efraín Thompson MD 07/04/24 17:14 Assessment & Plan Assessment/Plan (1) Peripheral arterial disease with history of revascularization: (2) Femoral arteriovenous fistula, left: HPI Consult Data Date of Consult: 07/04/24 HPI Narrative HPI Narrative: EMELIA JOHNSON, is a 74 M who presented to [facility] ER 07/02/23 with concern for UTI withdysuria, fevers, malaise. UTI was found and he was admitted for management. On admission, also noticed to have significant LLE edema and venous duplex was obtained which demonstrated arterialized flow through the LLE venous system and otherwise negative for acute DVT. 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 There is moderate ill-defined thickening with enhancement and left inguinal lymphadenopathy, most compatible with infectious etiology." I saw patient this morning resting in bed. He has had some chronic LLE edema secondary to his history of prior DVTs in 05/2023; however, he reports his swelling acutely worsened late last week. He has not noticed any area of redness, excess warmth, or focal swelling in his groin/lower extremity. I also spoke to his daughter Shaunna, she felt she noticed his LLE swelling appeared acutely worse just the day before his presentation to [facility]. As noted, he has had prior duplex studies for his DVTs, noneof which demonstrated findings consistent with possible AVF. He has a history of prior AAA repair with aortobiiliac graft performed at [facility] and prior R CEA; his recent vascular surgical care has been through [facility]. Case/images reviewed with [facility] vascular surgery. No overt infection visualized, but really uncertainwhy acute fistula/symptoms. Fistula appears to be from lateral branch of profunda femoral artery. Their recommendation was covered stent in the profunda branch to at least address fistula/venous pressures and his acute symptoms. Subsequent imaging could then be done as outpatient to further assess for infectious etiology. If patient agreeable could perform stent here; will discuss with patient/daughter. [facility] Medical History MRSA (methicillin resistant staph aureus) culture positive Wears glasses Low iron Stroke/cerebrovascular accident Former smoker Colostomy in place Family history of abdominal aortic aneurysm repair DVT (deep venous thrombosis) Enteritis Cholelithiasis Acidosis, lactic Encephalopathy due to infection Acute hypoxemic respiratory failure Complicated urinary tract infection Severe sepsis with acute organ dysfunction Aspiration into respiratory tract FIOR (acute kidney injury) Colon cancer Home Medications ?Medication ?Instructions ?Recorded ?Last Taken ?Type finasteride 5 mg tablet 5 mg PO DAILY prostate 06/2106/30/24 History ferrous sulfate 325 mg (65 mg 325 mg PO BIDCM iron #1 TAB 06/26/23 01/09/24 Rx iron) tablet levothyroxine 100 mcg tablet 100 mcg PO DAILY@0600 #30 tabs 01/15/24 06/30/24 Rx pantoprazole 40 mg tablet,delayed 40 mg PO BID #60 tab s 01/15/24 06/30/24 Rx release albuterol sulfate 90 mcg/actuation 1 - 2 puff inhalati on 4X/DAY PRN 02/22/24 Unknown History aerosol inhaler wheezing apixaban 5 mg tablet (Eliquis) 5 mg PO BID 02/22/24 History amlodipine 5 mg tablet 5 mg PO DAILY 07/01/2406/30 History aspirin 81 mg tablet,delayed 81 mg PO DAILY 07/01/24 0 06/30/24 History release ergocalciferol (vitamin D2) 1,250 1,250 mcg PO MO 08/2006/26/24 History mcg (50,000 unit) capsule fluticasone fur. 100 mcg-umeclid 1 ea inhalation DAILY 07/01/24 06/30/24 History 62.5 mcg-vilant 25 mcg inhalat.powder (Trelegy Ellipta) icosapent ethyl 1 gram capsule 2 g PO BID 07/01/2407/21 History levothyroxine 150 mcg tablet 150 mcg PO DAILY 07/01/24 06/30/24 History linagliptin 5 mg tablet (Tradjenta) 5 mg PO DAILY 08/2006/30/24 History rosuvastatin 20 mg tablet 20 mg PO QHS 07/01/24 History Allergy/AdvReac Type Severity Reaction Status Date / Time No Known Allergies Allergy Verified 07/01/24 13:29 Surgical History Hx of abdominal surgery Hx of endarterectomy (~2020) Social History Smoking Status: Former smoker Tobacco: How many years used: 50 Lab / Micro Data 07/04/24 06:29 07/04/24 06:29 07/04/24 1059 Cosigner Signature (if applicable): 07/04/24 1714 CC: Jenae Santamaria MD~ Signed [facility]04-08-2025 Consult note [facility] Medical Records Department [address] [facility] [place] [address] Anesthesia Postop Eval I 07/04/24 1700 MR#: [id number] Acct: [id number] Name: EMELIA JOHNSON Rep #:[id number] : 1950 74 From: Bernardo Quiñones PCP: Jenae Santamaria MD Status:ADM IN Y Race: C Location: [place] [address] 0 Anesthesia: Postop Eval I Current Vital Signs Temperature: 97.1 F Pulse Rate: 87 Blood Pressure: 82/61 Respiratory Rate: 18 Pulse Ox: 93 Oxygen Delivery Method: Room Air Assessment Airway patent: Yes Spontaneous unlabored respirations: Yes Mental status: Asleep nausea: No Vomiting: No Anesthesia Complication: No Fluid Hydration Crystalloid volume administer (ml): 30 Total IV fluid infused: 30 Progress Note Anesthesia document: Postop Eval 1 completed: Yes 07/04/24 1701 > Date _ Bernardo Sanchez Signature: Date CC: ~ Signed [facility]04-08-2025 Procedure note [facility] Medical Records Department [address] [place] [address] EGD Report MR#: [id number] Acct: [id number] Name: EMELIA JOHNSON Rep #:[id number] : 1950 74 From: David Ramos DO PCP: Jenae Santamaria MD Status:ADM IN Patient Name: Emelia Johnson Procedure Date: 07/04/2024 4:32 PM Date of : 1950 Age: 74 Procedure: Upper GI endoscopy Indications: Iron deficiency anemia, Dysphagia Providers: David Ramos DO Medicines: Monitored Anesthesia Care Patient Profile: This is a 74 year old male. Refer to note in patient chart for documentation of history and physical. Patient has symptoms of acute epigastric abdominal pain and dysphagia with both liquids and solids. His most recent EGD for dilation was within the past six months. Complications: No immediate complications. Procedure: Pre-Anesthesia Assessment: - Prior to the procedure, a History and Physical was performed, and patient medications and allergies were reviewed. The patient is competent. The risks and benefits of the procedure and the sedation options and risks were discussed with the patient. All questions were answered and informed consent was obtained. Patient identification and proposed procedure were verified by the physician in the pre-procedure area. Mental Status Examination: alert and oriented. Airway Examination: normal oropharyngeal airway and neck mobility. Respiratory Examination: clear to auscultation. CV Examination: normal. Prophylactic Antibiotics: The patient does not require prophylactic antibiotics. Prior Anticoagulants: The patient has taken no anticoagulant or antiplatelet agents except for NSAID medication. ASA Grade Assessment: II - A patient with mild systemic disease. After reviewing the risks and benefits, the patient was deemed in satisfactory condition to undergo the procedure. The anesthesia plan was to use monitored anesthesia care (MAC). Immediately prior to administration of medications, the patient was re-assessed for adequacy to receive sedatives. The heart rate, respiratory rate, oxygen saturations, blood pressure, adequacy of pulmonary ventilation, and response to care were monitored throughout the procedure. The physical status of the patient was re-assessed after the procedure. After obtaining informed consent, the endoscope was passed under direct vision. Throughout the procedure, the patient's blood pressure, pulse, and oxygen saturations were monitored continuously. The gastroscope was introduced through the mouth, and advanced to the third part of the duodenum. Small bowel enteroscopy was deemed necessary. The upper GI endoscopy was accomplished without difficulty. The patient tolerated the procedure well. Scope In: 4:43:10 PM Scope Out: 4:50:36 PM Total Procedure Duration Time 0 hours 7 minutes 26 seconds Findings: LA Grade D (one or more mucosal breaks involving at least 75% of esophageal circumference) esophagitis with bleeding was found 25 to 42 cm from the incisors. Biopsies were taken with a cold forceps for histology. Verification of patient identification for the specimen was done. Estimated blood loss was minimal. Two benign-appearing, intrinsic severe stenoses were found 36 to 40 cm from the incisors. The narrowest stenosis measured 4 mm (inner diameter) x 6 cm (in length). The stenoses were traversed. A guidewire was placed and the scope was withdrawn. Dilation was performed with a Savary dilator with no resistance at 57 Fr. The dilation site was examined and showed moderate improvement in luminal narrowing. Estimated blood loss was minimal. No gross lesions were noted in the entire examined stomach. Diffuse moderate inflammation characterized by erosions, erythema, friability and granularity was found in the entire duodenum. Impression: - LA Grade D erosive esophagitis with bleeding. Biopsied. - Benign-appearing esophageal stenoses. Dilated. - No gross lesions in the entire stomach. - Chronic duodenitis. Recommendation: - Return patient to [facility] for [facility] care. - Diet per speech therapy. - Continue present medications. - Await pathology results. - Repeat upper endoscopy in 1 month to evaluate the response to therapy. - Use Protonix (pantoprazole) 40 mg PO BID. Procedure Code(s): --- Professional --- 62460, Esophagogastroduodenoscopy, flexible, transoral; with insertion of guide wire followed by passage of dilator(s) through esophagus over guide wire 88573, 59,51, Small intestinal endoscopy, enteroscopy beyond second portion of duodenum, not including ileum; with biopsy, single or multiple CPT copyright 2021 [employer]. All rights reserved. The codes documented in this report are preliminary and upon occupational therapist assistant review may be revised to meet current compliance requirements. David Ramos DO 07/04/2024 4:56:14 PM This report has been signed electronically. Number of Addenda: 0 Note Initiated On: 07/04/2024 4:32 PM 07/04/24 1656 Date _ David Ramos DO Cosigner Signature: Date (if indicated) CC: Jenae Santamaria MD; David Ramos DO ~ Date Dictated: 07/04/24 1632 Date Transcribed: Payroll Analyst: RF Signed [facility]04-08-2025 Progress note [facility] Medical Records Department [address] [place] [address] Progress Note 07/04/24 1629 MR#: [id number] Acct: [id number] Name: EMELIA JOHNSON Rep #:[id number] : 1950 74 From: David Ramos DO PCP: Jenae Santamaria MD Status:ADM IN Location: [place] [address] Progress Note Patient is scheduled for an upper endoscopy today. All questions and concerns answered. Physical Exam Const alert and oriented x3 General Appearance: cooperative HEENT external ears normal and external nose normal Head and Scalp: normocephalic and atraumatic Nose: external nose normal Eyes EOMs intact bilaterally General Eye: normal appearance of both eyes Neck General: normal visual inspection and trachea midline Resp normal respiratory effort, normal air movement, no retractions and no use of accessory muscles Effort and Inspection: able to speak in complete sentences; Negative for labored, grunting or stridor Cardio regular rate and regular rhythm GI GI Narrative: colostomy Extremity Extremity Narrative: Significant diffuse 3+ edema of the LLE, generally soft to palpation; no focal areas of erythema/excess warmth/fluctuance/induration Skin no rashes or lesions noted Trauma: no lacerations or abrasions Neuro oriented x3, moves all extremities and no focal motor deficits Speech: speech normal Psych mental status grossly normal Attitude: calm Assessment & Plan Assessment/Plan (1) Encephalopathy acute: (2) Acute UTI: PLAN: Plan 74 yo with h/o colon cancer s/p resection with end ileostomy with possible aspiration PNA and esophageal dysphagia Dysphagia * Speech therapy on board. * He had EGD which showed evidence of eosinophilic esophagitis and benign appearing esophageal stenosis which was dilated, as well as hiatal hernia. * He will undergo a repeat egd to access his upper GI for possible etiology ofaspiration PNA. * on IV PPI History of colon cancer: has ileostomy in place. Visit Charges Inpatient E&M: 94063 Subs Hosp L2 07/04/24 1622 David Friend DO Cosigner Signature (if applicable): CC: ~ Signed [facility]04-08-2025 Consult note [facility] Medical Records Department [address] [place] [address] Pre-Anesthesia Evaluation 07/04/24 1535 MR#: [id number] Acct: [id number] Name: EMELIA JOHNSON Rep #:[id number] : 1950 74 From: Brandon David MD PCP: Jenae Santamaria MD Status:ADM IN Y Race: C Location: [place] [address] 0-1 ASA Classification* ASA Classification ASA Classification: 3 and E Assessment & Plan Anesthesia* Anesthesia Assessment Anesthesia Assessment: Discussed sedation and/or anesthesia options, risks, benefits, and alternatives with patient/parents/legal guardian/POA. Questions invited. The patient/parents/legal guardian/POA seems to understand and agrees to proceedwith anesthesia plan. Reviewed the physical assessment, medical history, allergy history and patient home medications list prior to surgery/procedure/anesthetic and documented any changes. Performed airway and anesthesia risk assessments. Anesthesia Type Anesthesia Type: MAC History Source History Obtained from:: Patient and Chart Anesthesia Focused Assessment* Temperature: 97.9 F Pulse Rate: 90 Blood Pressure: 113/64 Respiratory Rate: 18 Pulse Ox: 93 Oxygen Delivery Method: Room Air Airway Assessment Mouth opens: >3 cm Mallampati Score: III Teeth Condition: Chipped/Broken (Patien has poor dentition.) and Missing (Missing multiple teeth.) Neck Range of motion (ROM): Limited ROM Focused Labs Anesthesia Preop lab: CBC WBC 6.1 K/mm3 (4.4-11.0) 07/04/24 06:07/04/24 RBC 4.20 M/mm3 (4.6-6.2) L 07/04/24 06:07/04/24 Hgb 12.5 g/dL (13.0-16.5) L 07/04/24 06: 5 Hct 39.4 % (40-54) L 07/04/24 06:07/04/24 Plt Count 100 K/mm3 (150-450) L 07/04/24 06:07/04/24 CHEMISTRY Potassium 3.7 mmol/L (3.3-5.1) 07/04/24 06:07/04/24 Sodium 139 mmol/L (133-145) 07/04/24 06:07/04/24 Magnesium 2.0 mg/dL (1.6-2.6) 01/10/24 15:09 01/10/24 Phosphorus 2.9 mg/dL (2.5-4.9) 01/10/24 15:09 01/10/24 BUN 16 mg/dL (4-19) 07/04/24 06:07/04/24 Creatinine 1.58 mg/dL (0.70-1.20) H 07/04/24 06: Glucose 112 mg/dL (70-99) H 07/04/24 06:07/04/24 POC Glucose 202 mg/dL (74-106) H 02/23/24 11:30 02/23/24 TSH 0.599 uIU/mL (0.358-3.740) 01/17/24 06:50 12/28 04/21 COAG PT 19.3 SECONDS (11.7-14.9) H 01/10/24 17:00 12/27 07/20 Pre-Assessment Diagnosis/Proposed Procedure Planned Operative Procedure(s): Esophagogastroduodenoscopy with possible cauteryand/or injection therapy. 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 02/22/24 09:14 Any Problems With Anesthesia No 07/04/24 15:23 Cholinesterase deficiency No 07/04/24 15:23 You/Your Family Experience No 07/04/24 15:23 fever (hyperthermia) with Relationship Recent Exposure to Contagious No 07/04/24 15:23 Disease Does patient have nerve No 07/04/24 15:23 stimulator Patient instructed to have device shut off --Does patient have Pacemaker No 07/04/24 15:22 or ICD? When Was Last Pacemaker Check QUESTION #4 FULL TEXT: You/Your Family Experience fever (hyperthermia) with Anesthesia Last Oral Intake Last Oral intake: Last Oral Intake NPO since 00:00 07/04/24 15:22 Meds taken in AM with sips of No 07/04/24 15:22 water? Meds patient instructed to take am of surgery PONV PONV - spa manager: PONV - spa manager Female HX of Motion Sickness HX of N/V After Surgery Non-Smoker Duration of Surgery greater than 60 minutes Number of Risk Factors PONV Score Height & Weight Height & Weight: Anesthesia: Height & Weight Height 5 ft 9 in 07/04/24 15:22 Weight: 85.8 kg 07/04/24 15:22 Body Mass Index (BMI) 27.9 07/04/24 15:22 Respiratory Assessment Respiratory Assessment - spa manager: Respiratory Tract Infection Hx - spa manager Hx Respiratory Tract Infection No 07/04/24 15:23 STOP Sleep Apnea STOP Sleep Apnea - spa manager: STOP Sleep Apnea - spa manager Hx Hypertension No 07/02/24 13:20 Hx Sleep Apnea No 07/01/24 13:07 CPAP BIPAP Do you snore loudly (louder No 07/01/24 13:07 than talking or can be heard Do you often feel tired/ No 07/01/24 13:07 fatigued/ sleepy during daytime? Has anyone observed you stop No 07/01/24 13:07 breathing during sleep? STOP Results Negative 07/01/24 13:07 QUESTION #5 FULL TEXT : Do you snore loudly (louder than talking or can be heard through closeddoors)? 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 Specify any problems Hx of Preganancy in last 3 N/A 07/01/24 13:07 Months Nurse Filling Out Transfusion RVIZZO 07/01/24 13:07 & Questions: Date: 07/01/24 07/01/24 13:07 Time: 13:20 07/01/24 13:07 Patient unable to answer at this time (ie. confused, unrespo /Reproduction History /Reproductive History - spa manager: /Reproductive Hx- spa manager Hx Now No 07/04/24 15:23 Gestational Age (in weeks): EDC: Hx Hx Para Hx Section SAB No 07/04/24 15:23 Active Medications Active Medications: Current Medications Generic Name Dose Route Start Last Admin Trade Name Freq PRN Reason Stop Dose Admin Acetaminophen 650 mg 07/01/24 13:08 Acetaminophen 325 Mg Tablet PO Q6H PRN PRN Pain 1-10 Or Fever>100.7 Albuterol Sulfate 2.5 mg 07/01/24 13:16 Albuterol 2.5 Mg/3 Ml Vial.Neb. INHALATION Q4H PRN wheezing Albuterol/Ipratropium 3 ml 07/01/24 13:15 07/04/24 12:38 Ipratropium/Albuterol Sulfate 3 Ml Ampul.Neb INHALATION 3 ml Q6HWA.RT BRISEYDA Administration Apixaban 5 mg 07/01/24 22:00 07/04/24 08:30 Apixaban 5 Mg Tablet PO Not Given BID BRISEYDA Aspirin 81 mg 07/02/24 08:00 07/04/24 08:30 Aspirin E.C. 81 Mg Tablet PO Not Given BREAKFAST BRISEYDA Atorvastatin Calcium 40 mg 07/01/24 22:00 07/03/24 20:58 Atorvastatin Calcium 40 Mg Tablet PO 40 mg QHS BRISEYDA Administration Budesonide 0.5 mg 07/01/24 13:15 07/04/24 07:25 Budesonide Respules 0.5 Mg/2 Ml Ampul.Neb. INHALATION 0.5 mg Q12H.RT BRISEYDA Administration Doxycycline Monohydrate 100 mg 07/03/24 22:00 07/04/24 10:59 Doxycycline 100 Mg Capsule PO 07/07/24 22:01 Not Given BID BRISEYDA Finasteride 5 mg 07/02/24 10:00 07/04/24 08:31 Finasteride 5 Mg Tablet PO Not Given DAILY BRISEYDA Sodium Chloride 100 mls @ 15 mls/hr 07/01/24 13:38 IV .Q6H40M PRN Saline Flush Sodium Chloride 100 mls @ 15 mls/hr 07/01/24 13:38 IV .Q6H40M PRN Additional IVPB Infusion Icosapent Ethyl 2 gm 07/01/24 22:00 07/04/24 08:31 Icosapent Ethyl 1 Gm Capsule PO Not Given BID BRISEYDA Levothyroxine Sodium 150 mcg 07/02/24 06:00 07/04/24 05:39 Levothyroxine 150 Mcg Tablet PO Not Given DAILY@0600 BRISEYDA Melatonin 3 mg 07/01/24 13:08 Melatonin 3 Mg Tablet PO QHS PRN PRN INSOMNIA Nystatin 1 applic 07/01/24 22:30 07/04/24 14:35 Nystatin Powder 15gm Bottle TOPICAL 1 applic TID BRISEYDA Administration Protocol Ondansetron HCl 4 mg 07/01/24 13:08 07/01/24 13:50 Ondansetron 4 Mg/2 Ml Vial IV 4 mg Q8H PRN PRN Administration NAUSEA/VOMITING Pantoprazole Sodium 40 mg 07/01/24 22:00 07/04/24 08:31 Pantoprazole Sodium 40 Mg Tablet PO Not Given BID BRISEYDA Sodium Chloride 10 - 40 ml 07/01/24 13:22 07/01/24 21:17 0.9% Saline Lock 10 Ml Syringe IV 10 ml UD PRN Administration SALINE FLUSH Sodium Chloride 10 - 40 ml 07/01/24 13:38 0.9% Saline Lock 10 Ml Syringe IV UD PRN SALINE FLUSH PFSH Medical History MRSA (methicillin resistant staph aureus) culture positive Wears glasses Low iron Stroke/cerebrovascular accident Former smoker Colostomy in place Family history of abdominal aortic aneurysm repair DVT (deep venous thrombosis) Enteritis Cholelithiasis Acidosis, lactic Encephalopathy due to infection Acute hypoxemic respiratory failure Complicated urinary tract infection Severe sepsis with acute organ dysfunction Aspiration into respiratory tract FIOR (acute kidney injury) Colon cancer Home Medications ?Medication ?Instructions ?Recorded ?Last Taken ?Type finasteride 5 mg tablet 5 mg PO DAILY prostate 06/2106/30/24 History ferrous sulfate 325 mg (65 mg 325 mg PO BIDCM iron #1 TAB 06/26/23 01/09/24 Rx iron) tablet levothyroxine 100 mcg tablet 100 mcg PO DAILY@0600 #30 tabs 01/15/24 06/30/24 Rx pantoprazole 40 mg tablet,delayed 40 mg PO BID #60 tab s 01/15/24 06/30/24 Rx release albuterol sulfate 90 mcg/actuation 1 - 2 puff inhalati on 4X/DAY PRN 02/22/24 Unknown History aerosol inhaler wheezing apixaban 5 mg tablet (Eliquis) 5 mg PO BID 02/22/24 History amlodipine 5 mg tablet 5 mg PO DAILY 07/01/2406/30 History aspirin 81 mg tablet,delayed 81 mg PO DAILY 07/01/24 0 06/30/24 History release ergocalciferol (vitamin D2) 1,250 1,250 mcg PO MO 08/2006/26/24 History mcg (50,000 unit) capsule fluticasone fur. 100 mcg-umeclid 1 ea inhalation DAILY 07/01/24 06/30/24 History 62.5 mcg-vilant 25 mcg inhalat.powder (Trelegy Ellipta) icosapent ethyl 1 gram capsule 2 g PO BID 07/01/2407/21 History levothyroxine 150 mcg tablet 150 mcg PO DAILY 07/01/24 06/30/24 History linagliptin 5 mg tablet (Tradjenta) 5 mg PO DAILY 08/2006/30/24 History rosuvastatin 20 mg tablet 20 mg PO QHS 07/01/24 History Allergy/AdvReac Type Severity Reaction Status Date / Time No Known Allergies Allergy Verified 07/01/24 13:29 Surgical History Hx of abdominal surgery Hx of endarterectomy (~2020) Social History Smoking Status: Former smoker Tobacco: How many years used: 50 Review of Systems (Anesthesia) ROS Narrative System reviewed and no additional complaints, except as documented. 07/04/24 1543 eliu MURILLO> Date _ Brandon David MD Cosigner Signature: Date CC: ~ Signed [facility]04-08-2025 Telephone encounter Note* Telephone Encounter - Judie Garrido MA - 07/04/2024 10:26 AM EDT Pharmacy faxed requesting the following refill Refill(s) Requested: Requested Prescriptions Pending Prescriptions Disp Refills pantoprazole DR (PROTONIX) 40 mg tablet [Pharmacy Med Name: PANTOPRAZOLE SOD DR 40 MG TAB] 180 tablet 0 Sig: TAKE 1 TABLET BY MOUTH TWICE A DAY ALLERGIES Allergen Reactions Lipitor [Atorvastat* Other: See Comments body aches (home) [phone] (cell) Last Office Visit Date: 04/07/2024 Last Distance Health Visit: Visit date not found Future Appointment: Visit date not found The patients preferred pharmacy has been captured for this encounter? yes Request is for script(s) to be escript to pharmacy. Judie Garrido MA [facility]04-08-2025 Miscellaneous Notes* Telephone Encounter - Judie Garrido MA - 07/04/2024 10:26 AM EDT Pharmacy faxed requesting the following refill Refill(s) Requested: Requested Prescriptions Pending Prescriptions Disp Refills pantoprazole DR (PROTONIX) 40 mg tablet [Pharmacy Med Name: PANTOPRAZOLE SOD DR 40 MG TAB] 180 tablet 0 Sig: TAKE 1 TABLET BY MOUTH TWICE A DAY ALLERGIES Allergen Reactions Lipitor [Atorvastat* Other: See Comments body aches (home) [phone] (cell) Last Office Visit Date: 04/07/2024 Last Distance Health Visit: Visit date not found Future Appointment: Visit date not found The patients preferred pharmacy has been captured for this encounter? yes Request is for script(s) to be escript to pharmacy. Judie [facility]arrido [facility] Consult note Author David Ramos [facility] Note Date/Time July 04, 2024 6:55 am [facility] Medical Records Department [address] [place] [id number] Consultation - GI 07/03/24 1711 MR#: [id number] Acct: [id number] Name: EMELIA JOHNSON Rep #:[id number] : 1950 74 From: David Ramos DO PCP: Jenae Santamaria MD Status:ADM IN Location: [place] [id number] HPI Consult Data Date of Consult: 07/03/24 HPI Narrative Reason for Consultation: Aspiration PNA HPI Narrative: EMELIA JOHNSON, is a 74 M who presented to [facility] ED on 07/01/24with UTI symptoms and nausea with vomiting. Patient is know to the GI service because his h/o oropharyngeal and esophageal dysphagia. CT abdomen pelvis showedsubtle groundglass opacity in the right lower lobe that may represent early pneumonia, chronic hydronephrosis and hydroureter of right kidney, cholelithiasis without evidence of cholecystitis. He is being treated for HCAP and possible aspiration PNA. He previously underwent a swallowing study and it displayed: -The esophageal phase is primarily marked by... -Retention of pudding in the lower esophagus w/ retrograde flow to the upper esophagus. -Retention of mildly/nectar thick and honey thick liquids in the mid-lower esophagus w/ retrograde flow to the upper esophagus. -Pt is at risk for reflux aspiration. On his previous visit he underwent an upper endoscopy: Findings: A moderate Schatzki ring was found in the lower third of the esophagus. Biopsies were taken with a cold forceps for histology. Verification of patient identification for the specimen was done. Estimated blood loss was minimal. Coagulation for tissue destruction using argon plasma at 0.3 liters/minute and 20 grover was successful. Estimated blood loss was minimal. Abnormal motility was noted in the esophagus. The cricopharyngeus was abnormal. There are extra peristaltic waves in the esophageal body. The distal esophagus/lower esophageal sphincter is spastic, but gives up passage to the endoscope. Tertiary peristaltic waves are noted. Area was successfully injected with 100 units botulinum toxin. A medium-sized hiatal hernia was present. No gross lesions were noted in the entire examined stomach. No gross lesions were noted in the first portion of the duodenum. Impression: - Moderate Schatzki ring. Biopsied. Treated with argon plasma coagulation (APC). - Abnormal esophageal motility, consistent with achalasia. Injected with botulinum toxin. - Medium-sized hiatal hernia. - No gross lesions in the entire stomach. - No gross lesions in the first portion of the duodenum. Recommendation: - Discharge patient to home. - Resume previous diet. - Continue present medications. - Await pathology results. - Repeat upper endoscopy in 3 months for surveillance. [facility] Medical History MRSA (methicillin resistant staph aureus) culture positive Wears glasses Low iron Stroke/cerebrovascular accident Former smoker Colostomy in place Family history of abdominal aortic aneurysm repair DVT (deep venous thrombosis) Enteritis Cholelithiasis Acidosis, lactic Encephalopathy due to infection Acute hypoxemic respiratory failure Complicated urinary tract infection Severe sepsis with acute organ dysfunction Aspiration into respiratory tract FIOR (acute kidney injury) Colon cancer Home Medications ?Medication ?Instructions ?Recorded ?Last Taken ?Type finasteride 5 mg tablet 5 mg PO DAILY prostate 06/2106/30/24 History ferrous sulfate 325 mg (65 mg 325 mg PO BIDCM iron #1 TAB 06/26/23 01/09/24 Rx iron) tablet levothyroxine 100 mcg tablet 100 mcg PO DAILY@0600 #30 tabs 01/15/24 06/30/24 Rx pantoprazole 40 mg tablet,delayed 40 mg PO BID #60 tab s 01/15/24 06/30/24 Rx release albuterol sulfate 90 mcg/actuation 1 - 2 puff inhalati on 4X/DAY PRN 02/22/24 Unknown History aerosol inhaler wheezing apixaban 5 mg tablet (Eliquis) 5 mg PO BID 02/22/24 History amlodipine 5 mg tablet 5 mg PO DAILY 07/01/2406/30 History aspirin 81 mg tablet,delayed 81 mg PO DAILY 07/01/24 0 06/30/24 History release ergocalciferol (vitamin D2) 1,250 1,250 mcg PO MO 08/2006/26/24 History mcg (50,000 unit) capsule fluticasone fur. 100 mcg-umeclid 1 ea inhalation DAILY 07/01/24 06/30/24 History 62.5 mcg-vilant 25 mcg inhalat.powder (Trelegy Ellipta) icosapent ethyl 1 gram capsule 2 g PO BID 07/01/2407/21 History levothyroxine 150 mcg tablet 150 mcg PO DAILY 07/01/24 06/30/24 History linagliptin 5 mg tablet (Tradjenta) 5 mg PO DAILY 08/2006/30/24 History rosuvastatin 20 mg tablet 20 mg PO QHS 07/01/24 History Allergy/AdvReac Type Severity Reaction Status Date / Time No Known Allergies Allergy Verified 07/01/24 13:29 Surgical History Hx of abdominal surgery Hx of endarterectomy (~2020) Social History Smoking Status: Former smoker Tobacco: How many years used: 50 ROS Constitutional Constitutional: Reports fatigue and weakness; Denies chills or fever(s) Eyes Eyes: Denies change in vision Cardiovascular Cardiovascular: Denies chest pain Respiratory/Chest Respiratory/Chest: Denies cough, productive cough or shortness of breath at rest Gastrointestinal Gastrointestinal: Reports nausea and vomiting; Denies abdominal pain, constipation or diarrhea Genitourinary Genitourinary: Reports dysuria Musculoskeletal Musculoskeletal: Denies arthralgias or myalgias Physical Exam Const alert, oriented x3, no apparent distress and healthy appearing General Appearance: cooperative GI normal to inspection, nondistended, normoactive bowel sounds, soft to palpation,non-tender and non-distended Percussion: normal to percussion Rectal Exam: deferred Lab / Micro Data 07/03/24 06:33 07/03/24 06:33 Labs: Laboratory Results - last 24 hr 07/03/24 06:33: WBC 8.2, RBC 3.93 L, Hgb 11.7 L, Hct 37.3 L, MCV 94.9 H, MCH 29.8, MCHC 31.4 L, RDW Std Deviation 53.0 H, RDW Coeff of Yanira 15.1 H, Plt Count 86 L, MPV 12.4 H, Sodium 138, Potassium 3.8, Chloride 107, Carbon Dioxide 21.7, Anion Gap 10, BUN 20 H, Creatinine 1.76 H, Estim Creat Clear Calc 39.97 L, Est GFR (MDRD) Non- Af 40 L, BUN/Creatinine Ratio 11.4, Glucose 98, Calcium 8.4 Micro: Microbiology 07/01/24 10:21 Blood Culture (Wb) - Anticubital Left Blood Culture - Preliminary No growth in 48 hours. 07/01/24 09:42 Blood Culture (Wb) - Anticubital Left Blood Culture - Preliminary No growth in 48 hours. 07/01/24 10:04 Urine Catheter - Maddox Urine Culture - Final Meth. resistant Staph. aureus Assessment & Plan Assessment/Plan (1) Encephalopathy acute: (2) Acute UTI: PLAN: Plan 74 yo with h/o colon cancer s/p resection with end ileostomy with possible aspiration PNA and esophageal dysphagia Dysphagia * Speech therapy on board. * He had EGD which showed evidence of eosinophilic esophagitis and benign appearing esophageal stenosis which was dilated, as well as hiatal hernia. * He will undergo a repeat egd to access his upper GI for possible etiology ofaspiration PNA. * on IV PPI History of colon cancer: has ileostomy in place. Charges/Coding Visit Charges Inpatient E&M: 31930 Init Hosp L3 07/04/24 0655 <Electronically signed by David Friend DO> Cosigner Signature (if applicable): CC: Jenae Santamaria MD~ Signed [facility] Work Phone: [phone]) 724-895304-08-2025 Procedure note [facility] Speech Pathology [address] [place] [address] Modified Barium Swallow Study MR#: [id number] Acct: [id number] Name: EMELIA JOHNSON Rep #:[id number] : 1950 74 From: Ya Abdullahi, [facility]-OFFICE ASSISTANCE Modified Barium Swallow Patient Information Study Date: 07/03/24 Study Time: 13:00 Direct Billable Minutes: 120 Total Minutes procedure & reportin Diagnosis: Leukocytosis D72.829 Referring Physician: Kulwinder De La O Reason for Referral: Assess swallow function, assess risk for aspiration, and determine recommendations for least restrictive diet textures and compensatory strategies to facilitate safe po intake. Medical History: PMH: DVT, Enteritis, Cholelithiasis, Lactic acidosis, Encephalopathy due to infection, Acute hypoxemic respiratory failure, Complicated UTI, Severe sepsis with acute organ dysfunction, Aspiration into respiratory tract, FIOR, Colon cancer. Hx of CVA (2013 per pt, Chronic L sided weakness per charting from previous acute stay). The pt is a 74 y/o male who presented to [facility] ED on 07/01/24with UTI symptoms and nausea with vomiting.? Patient has history of chronic indwelling Maddox catheter.? He began to have dysuria on the day before presentation and then developed nausea with 2 vomiting episodes that morning.? Patient lives at home with his son and daughter.? Uses a walker at baseline but stated he hasbeen more fatigued over the past several days and not been moving around much.? Medical history is otherwise significant for rectal cancer s/p chemoradiation therapy with colonic resection and permanent colostomy and strokes with residual left-sided weakness and left lower extremity DVT.? CT of abdomen and pelvis showed subtle groundglass opacity in the right lower lobe that may represent early pneumonia, chronic hydronephrosis and hydroureter of right kidney, cholelithiasis without evidence ofcholecystitis.? ST consulted due to pt coughing on fruit with nursing. BSE completed 07/02/2024 and re commendedminced and moist textures / thin liquids w/ total feed and repeat MBSS planned for today. Patient familiar to this ST department from prior hospitalization in December 2023 w/ MBSS completedon 01/12/2024.? Recommendations were as follows: ?Diet: Thin Liquids; Comment: ?Frequent oral care.Full liquid diet until GI intervention. After GI work up, ok to advance to PUREE / THIN, as OFFICE ASSISTANCE was unableto complete cookie trial today due to poor esophageal clearance. Compensatory Strategies: Small Bites, Small Sips (Cue cough and re-swallow after each sip), Slow Rate, Sitting upright and Remain sitting upright for 30 minutes after PO intake (60min after oral intake); Supervision: Total Feed (FOR LIQUIDS TO ENSURE SMALL SIP SIZE); Recommend Repeat Modified Barium Swallow: Yes (4-6 weeksafter implementation of oropharyngeal strengthening exercise program. Consider repeat MBSS sooner if worsening respiratory status or poor diet tolerance.)? EGD1 revealed ?Esophageal mucosal changes consistent with eosinophilic esophagitis?Benign-appearing esophageal stenoses. Dilated?Hiatal h ernia?No grosslesions in the stomach?Normal second portion of the duodenum?Biopsies were takenwith a cold forceps for evaluation of eosinophilic esophagitis.? He was recommended full liquid diet. Patient was upgraded to and discharged from hospital stay on puree textures / thin liquids. Current Diet Ordered: Minced and moist textures / thin liquids Dentition: Decay and Missing Teeth Mental Status: Impaired (acute confusion) Respiratory Status: Oxygenating on 2L/M nasal cannula Penetration-Aspiration Scale Penetration-Aspiration Scale: OBJECTIVE ASSESSMENT OF SWALLOW FUNCTION (QUANTITATIVE ? PER TRIAL): PENETRATION / ASPIRATION SCALE (GREER): 1 = does not enter airway 2 = enters airway/above vocal folds/ejected 3 = enters airway/above vocal folds/not ejected 4 = enters airway/contacts vocal folds/ejected 5 = enters airway/contacts vocal folds/not ejected 6 = enters airway/below vocal folds/ejected 7 = enters airway/below vocal folds/not ejected despite effort 8 = enters airway/below vocal folds/no effort VIDEOFLOROSCOPIC SCALE SCORE (GREER): Grade I = aspiration of material that has penetrated into the laryngeal vestibule, intact cough reflex Grade II = aspiration < 10 % of the bolus, intact cough reflex Grade III = aspiration of < 10 % of the bolus, reduced cough reflex or aspiration of > 10 % of the bolus, intact cough reflex Grade IV = aspiration of > 10 % of the bolus, reduced cough reflex Penetration-Aspiration Scale Score Thin Liquid via teaspoon: Result: 1= does not enter airway Thin Liquid via teaspoon Trial 2: Result: 2= enter airway/above vocal folds/ejected Thin Liquid via large single sip: cup: Result: 8= enters airway/below vocal folds/no effort Thin Liquid via large single sip: cup Trial 2: Result: 5= enters airways/contacts vocal folds/not ejected Comment: Cued small sip [place] Thick Liquid via teaspoon: Result: 2= enter airway/above vocal folds/ejected [place] Thick Liquid via large single sip: cup: Result: 5= enters airways/contacts vocal folds/not ejected Comment: Cued small sip Pudding via teaspoon: Result: 1= does not enter airway Thin Liquid via single sip: straw: Result: 7= enters airways/below vocal folds/not ejected despite effort Comment: Cued small straw sip, pt continued to take large sips Thin Liquid via single sip: straw Effortful swallow: Result: 8= enters airway/below vocal folds/no effort Thin Liquid via single sip: straw Chin tuck: Result: 8= enters airway/below vocal folds/no effort Thin Liquid via single sip: straw Left head turn: Result: 2= enter airway/above vocal folds/ejected Thin Liquid via single sip: straw Left head turn Trial 2: Result: 8= enters airway/below vocal folds/no effort Thin Liquid via teaspoon Trial 3: Result: 3= enters airways/above vocal folds/not ejected Thin Liquid via teaspoon Trial 4: Result: 1= does not enter airway 1/4 Cookie: Result: 2= enter airway/above vocal folds/ejected Thin Liquid via teaspoon Trial 5: Result: 5= enters airways/contacts vocal folds/not ejected [place] Thick Liquid via small single sip: cup: Result: 5= enters airways/contacts vocal folds/not ejected Oral Phase Labial Seal: Escape progressing to mid-chin Tongue Control During Bolus Hold: Posterior escape of greater than half of bolus Bolus Preparation/Mastication: Disorganized chewing/mashing with solid pieces ofbolus unchewed Bolus Transport/Lingual Motion: Repetitive/disorganized tongue motion Oral Residue: Residue collection on oral structures Pharyngeal Phase Initiation of Pharyngeal Swallow: Bolus head in pyriforms Soft Palate Elevation: Trace column of contrast/air between soft palate and pharyngeal wall Laryngeal Elevation: Partial superior movement thyroid cart/partial apprx aryt- epig petiole Anterior Hyoid Excursion: Partial anterior movement Epiglottic Movement: Partial inversion Laryngeal Vestibule Closure at Height of Swallow: Incomplete; narrow column of air/contrast in laryngeal vestibule Pharyngeal Stripping Wave: Present - diminished Pharyngoesophageal Segment Opening: Parital distension and partial duration; parital obstruction offlow Tongue Base Retraction: Wide column of contrast between tongue base & post. pharyngeal wall Pharyngeal Residue: Collection of residue within or on pharyngeal structures Esophageal Phase Esophageal Clearance: Esophageal retention Diagnosis/Impression Diagnosis: Moderate-severe oropharyngeal dysphagia R13.12; Esophageal dysphagia R13.14 Impression: The oral phase is primarily marked by... -Poor bolus control w/ premature posterior loss of >1/2 of liquids to the pyriforms prior to swallow onset. -Disorganized tongue motion for A-P transport. -Decreased, disorganized mastication with small pieces of cookie appearing un-chewed. -Piecemeal deglutition of cookie. The pharyngeal phase is primarily marked by... -Delayed swallow onset. -Decreased airway closure during the swallow due to decreased anterior hyoid excursion, laryngeal elevation, and continued inconsistent epiglottic inversion. -SILENT aspiration of thin liquids by cup, straw, and straw w/ use of strategies(L head turn, effortful, Chin tuck). Overt aspiration of thin by straw. Pt independently takes large sips despite moderate verbal cues and instruction. Cough and re-swallow is somewhat effective in decreasing amount of aspiration. Liquids by tsp were most effective in reducing aspiration risk. The esophageal phase is primarily marked by... -Retention of pudding and cookie in the middle esophagus. Recommendations Diet: Minced and Moist Textures and Thin Liquids Comment: intermittent cough and re-swallow frequent oral care Compensatory Strategies: Small Bites, Liquid by Teaspoon Only, Slow Rate, Alternate bites/solids and sips/liquids, Sitting upright and Remain sitting upright for 30 minutes after PO intake Supervision: 1:1 Direct Supervision (Assist feeding as needed ) Recommend Repeat Modified Barium Swallow: TBD Need for Skilled Speech Therapy Services: Yes Comment: Continued dysphagia therapy services during acute stay and at discharge. POC to include the following... -Train the patient and staff in strategies to decrease risk for aspiration and reflux aspiration. Will recommend the patient for a bolus control cup (5cc) at next level of care. -Train the patient in oropharyngeal strengthening (lingual resistance, effortful, Ai, Tres). -Ongoing assessment of diet tolerance. Recommended Referrals: GI Consult (GI already consulted for consideration for repeat EGD.) Education Completed: 1. Described result of evaluation., 2. Pt understands evaluation & agrees with goals and treatment plan. and 7. Pt requires further education on strategies & risks. Status Active ST Patient: Active Contact Information [facility] Speech Therapy:: Ya Lua M.A. CCC-OFFICE ASSISTANCE? Speech-Language Pathologist?? [facility] [address] [place] [address]? [email or web address]?? [phone] 07/04/24 0851 DECLAN Queen-OFFICE ASSISTANCE> Date/Time Ya Lua M.A., CCC-OFFICE ASSISTANCE Co-Signature Required for all Medicare patients Date/Time Co-Signature CC: ~ [facility]04-08-2025 Consult note [facility] Medical Records Department [address] [place] [address] Consultation - GI 07/03/24 1711 MR#: [id number] Acct: [id number] Name: EMELIA JOHNSON Rep #:[id number] : 1950 74 From: David Ramos DO PCP: Jenae Santamaria MD Status:ADM IN Location: [place] [address] HPI Consult Data Date of Consult: 07/03/24 HPI Narrative Reason for Consultation: Aspiration PNA HPI Narrative: EMELIA JOHNSON, is a 74 M who presented to [facility] ED on 07/01/24with UTI symptoms and nausea with vomiting. Patient is know to the GI service because his h/o oropharyngeal and esophageal dysphagia. CT abdomen pelvis showedsubtle groundglass opacity in the right lower lobe that may re present early pneumonia, chronic hydronephrosis and hydroureter of right kidney, cholelithiasis without evidence of cholecystitis. He is being treated for HCAP and possible aspiration PNA. He previously underwent a swallowing study and it displayed: -The esophageal phase is primarily marked by... -Retention of pudding in the lower esophagus w/ retrograde flow to the upper esophagus. -Retention of mildly/nectar thick and honey thick liquids in the mid-lower esophagus w/ retrograde flow to the upper esophagus. -Pt is at risk for reflux aspiration. On his previous visit he underwent an upper endoscopy: Findings: A moderate Schatzki ring was found in the lower third of the esophagus. Biopsies were taken with a cold forceps for histology. Verification of patient identification for the specimen was done. Estimated blood loss was minimal. Coagulation for tissue destruction using argon plasma at 0.3 liters/minute and 20 grover was successful. Estimated blood loss was minimal. Abnormal motility was noted in the esophagus. The cricopharyngeus was abnormal. There are extra peristaltic waves in the esophageal body. The distal esophagus/lower esophageal sphincter is spastic, but gives up passage to the endoscope. Tertiary peristaltic waves are noted. Area was successfully injected with 100 units botulinum toxin. A medium-sized hiatal hernia was present. No gross lesions were noted in the entire examined stomach. No gross lesions were noted in the first portion of the duodenum. Impression: - Moderate Schatzki ring. Biopsied. Treated with argon plasma coagulation (APC). - Abnormal esophageal motility, consistent with achalasia. Injected with botulinum toxin. - Medium-sized hiatal hernia. - No gross lesions in the entire stomach. - No gross lesions in the first portion of the duodenum. Recommendation: - Discharge patient to home. - Resume previous diet. - Continue present medications. - Await pathology results. - Repeat upper endoscopy in 3 months for surveillance. [facility] Medical History MRSA (methicillin resistant staph aureus) culture positive Wears glasses Low iron Stroke/cerebrovascular accident Former smoker Colostomy in place Family history of abdominal aortic aneurysm repair DVT (deep venous thrombosis) Enteritis Cholelithiasis Acidosis, lactic Encephalopathy due to infection Acute hypoxemic respiratory failure Complicated urinary tract infection Severe sepsis with acute organ dysfunction Aspiration into respiratory tract FIOR (acute kidney injury) Colon cancer Home Medications ?Medication ?Instructions ?Recorded ?Last Taken ?Type finasteride 5 mg tablet 5 mg PO DAILY prostate 06/2106/30/24 History ferrous sulfate 325 mg (65 mg 325 mg PO BIDCM iron #1 TAB 06/26/23 01/09/24 Rx iron) tablet levothyroxine 100 mcg tablet 100 mcg PO DAILY@0600 #30 tabs 01/15/24 06/30/24 Rx pantoprazole 40 mg tablet,delayed 40 mg PO BID #60 tab s 01/15/24 06/30/24 Rx release albuterol sulfate 90 mcg/actuation 1 - 2 puff inhalati on 4X/DAY PRN 02/22/24 Unknown History aerosol inhaler wheezing apixaban 5 mg tablet (Eliquis) 5 mg PO BID 02/22/24 History amlodipine 5 mg tablet 5 mg PO DAILY 07/01/2406/30 History aspirin 81 mg tablet,delayed 81 mg PO DAILY 07/01/24 0 06/30/24 History release ergocalciferol (vitamin D2) 1,250 1,250 mcg PO MO 08/2006/26/24 History mcg (50,000 unit) capsule fluticasone fur. 100 mcg-umeclid 1 ea inhalation DAILY 07/01/24 06/30/24 History 62.5 mcg-vilant 25 mcg inhalat.powder (Trelegy Ellipta) icosapent ethyl 1 gram capsule 2 g PO BID 07/01/2407/21 History levothyroxine 150 mcg tablet 150 mcg PO DAILY 07/01/24 06/30/24 History linagliptin 5 mg tablet (Tradjenta) 5 mg PO DAILY 08/2006/30/24 History rosuvastatin 20 mg tablet 20 mg PO QHS 07/01/24 History Allergy/AdvReac Type Severity Reaction Status Date / Time No Known Allergies Allergy Verified 07/01/24 13:29 Surgical History Hx of abdominal surgery Hx of endarterectomy (~2020) Social History Smoking Status: Former smoker Tobacco: How many years used: 50 ROS Constitutional Constitutional: Reports fatigue and weakness; Denies chills or fever(s) Eyes Eyes: Denies change in vision Cardiovascular Cardiovascular: Denies chest pain Respiratory/Chest Respiratory/Chest: Denies cough, productive cough or shortness of breath at rest Gastrointestinal Gastrointestinal: Reports nausea and vomiting; Denies abdominal pain, constipation or diarrhea Genitourinary Genitourinary: Reports dysuria Musculoskeletal Musculoskeletal: Denies arthralgias or myalgias Physical Exam Const alert, oriented x3, no apparent distress and healthy appearing General Appearance: cooperative GI normal to inspection, nondistended, normoactive bowel sounds, soft to palpation,non-tender and non-distended Percussion: normal to percussion Rectal Exam: deferred Lab / Micro Data 07/03/24 06:33 07/03/24 06:33 Labs: Laboratory Results - last 24 hr 07/03/24 06:33: WBC 8.2, RBC 3.93 L, Hgb 11.7 L, Hct 37.3 L, MCV 94.9 H, MCH 29.8, MCHC 31.4 L, RDWStd Deviation 53.0 H, RDW Coeff of Yanira 15.1 H, Plt Count 86 L, MPV 12.4 H, Sodium 138, Potassium 3.8, Chloride 107, Carbon Dioxide 21.7, Anion Gap 10, BUN 20 H, Creatinine 1.76 H, Estim Creat Clear Calc 39.97 L, Est GFR (MDRD) Non-Af 40 L, BUN/Creatinine Ratio 11.4, Glucose 98, Calcium 8.4 Micro: Microbiology 07/01/24 10:21 Blood Culture (Wb) - Anticubital Left Blood Culture - Preliminary No growth in 48 hours. 07/01/24 09:42 Blood Culture (Wb) - Anticubital Left Blood Culture - Preliminary No growth in 48 hours. 07/01/24 10:04 Urine Catheter - Maddox Urine Culture - Final Meth. resistant Staph. aureus Assessment & Plan Assessment/Plan (1) Encephalopathy acute: (2) Acute UTI: PLAN: Plan 74 yo with h/o colon cancer s/p resection with end ileostomy with possible aspiration PNA and esophageal dysphagia Dysphagia * Speech therapy on board. * He had EGD which showed evidence of eosinophilic esophagitis and benign appearing esophageal stenosis which was dilated, as well as hiatal hernia. * He will undergo a repeat egd to access his upper GI for possible etiology ofaspiration PNA. * on IV PPI History of colon cancer: has ileostomy in place. Charges/Coding Visit Charges Inpatient E&M: 84625 Init Hosp L3 07/04/24 0655 Cosigner Signature (if applicable): CC: Jenae Santamaria MD~ Signed [facility]04-07-2025 Radiology Diagnostic study note [facility] Imaging Services [address] [place] [address] CTA Abd w/Runoff W/WO Contrast MR#: [id number] Acct: [id number] Name: EMELIA JOHNSON Rep #: [id number] : 1950 M 74 From: Yesi Ramirez MD PCP: Jenae Santamaria MD Status: ADM IN Study:CTA Abd w/Runoff W/WO Contrast Date of Exam: 07/03/24 Exam# [id number] Ordering Dr: Freedom Thompson MD PROCEDURE: CTA ABD W/RUNOFF W/WO CONTRAST 07/03/2024 REASON FOR EXAM: PRIOR [place] BYPASS TECHNIQUE: CTA imaging of the abdomen, pelvis, and lower extremities with intravenous contrast. Coronal and Sagittal reconstruction series were provided. 3D, 3D post processing, 3D reconstructions, Maximum intensity projection (MIPs) Volume rendering and Shaded surface rendering was provided. CONTRAST: Isovue 370 VOLUME: 100 mL One or more dose reduction techniques were used (e.g., Automated exposure control, adjustment of the mA and/or kV according to patient size, use of iterative reconstruction technique). RADIATION DOSE SUMMARY: CTDlvol: 25 mGy DLP: 1700 mGycm COMPARISON: CT abdomen pelvis 07/01/2024. 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 Prior aorto bifemoral bypass extending from the infrarenal abdominal aorta to the bilateral common femoral arteries without obvious grafting/stenting. There is non-opacification of the right common femoral artery just distal to theanastomosis (series2, image 117), with occlusion of the femoral and deep femoral arteries. There is multifocal narrowing of the right deepfemoral artery, with severe stenosis/occlusion of the trifurcation arteries. There is marked narrowing of the left common femoral artery just distal to the anastomosis with dilation and partial retrograde opacification of the left femoral and external iliac veins (series 2, images 97-116). Markedly edematous left lower extremity extending from the upper abdomen to the foot. There is layering hyperdensity within dependent portion of the right external iliac vein (series 2,image 91), with opacification of numerous hypertrophied left and right rectal veins. The left rectal veins appear to join the left deep femoral artery at the popliteal fossa (best visualized on coronal image 71 and 96). Additional findings: Ground-glass opacification and trace bilateral pleural effusions. Coronary artery and aortic valvular calcifications. Stable cholelithiasis. Non-opacification of the left kidney and left renal artery, compatible with chronic infarct. Maddox catheter with intraluminal gas and marked diffuse bladder wall thickening. Prior left lower quadrant ileostomy. Diffuse dilation with air-fluid levels throughout the small bowel. Trace presacral edema, likely secondary to prior radiation treatment. No pneumoperitoneum. Grade 1 anterolisthesis of L5 onto S1. CT/CTA Abd w/Runoff W/WO Contrast IMPRESSION: 1. 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 There is moderate ill- defined thickening with enhancement and left inguinal lymphadenopathy, most compatible with infectious etiology. Additional considerations include iatrogenic etiology or secondary to recent procedure. 2. Layering hyperdensity within the right external iliac vein subjacent to the bypassed right common iliac artery, concerning for additional AVM, however this is difficult to assess without venous phase imaging. 3. Occlusion of the right femoral and deep femoral arteries with severe stenosis/occlusion of the trifurcation arteries. 4. Diffuse dilation with air-fluid levels throughout the small bowel. No pneumoperitoneum. If concern for bowel ischemia, recommend CT abdomen pelvis with venous phase imaging. Dr. Ramirez discussed these findings with Dr. Thompson, vascular surgeon, via telephone at 6:48 PM on 07/03/24. Reading Location: [id number] CC: Jenae Santamaria MD; Dr. Efraín Thompson MD ~ Payroll Analyst: Signed [facility]04-07-2025 Progress note Author Kulwinder De La O [facility] Note Date/Time July 03, 2024 10:5 5am [facility] Medical Records Department [address] [place] [address] Progress Note - Hospitalist 07/03/24 1039 MR#: [id number] Acct: [id number] Name: EMELIA JOHNSON Rep #:[id number] : 1950 74 From: Kulwinder bright DO PCP: Jenae Santamaria MD Status:ADM IN Location: [place] [address] Reason for Visit Reason for Visit: Diagnoses Acidosis, unspecified (07/01/24) Urinary tract infection, site not specified (07/01/24) Subjective Subjective Saw patient at bedside this morning. Patient did appear to have improved energythis morning from previous days. Was sitting back comfortably in bed and answering questions appropriately. He denied any acute pain or discomfort this morning. Denied any issues with his catheter. Stated that his left leg feels about the same today as previous days. No new concerns today. Objective Data Objective Data Vital Signs: Vital Signs Temp Pulse Resp BP Pulse Ox O2 Del Method O2 Flow Rate 97.8 F 89 18 104/65 99 Nasal Cannula 1.5 07/03/24 08:19 07/03/24 08:19 07/03/24 08:19 07/03/24 08:19 07/03/24 08:19 07/03/24 08:35 07/03/24 09:35 Oxygen Flow Rate (L/min) 1.5 Oxygen Delivery Method Nasal Cannula Weight: 85.8 kg Body Mass Index (BMI) 27.9 Intake & Output: Intake and Output for Last 24 Hours 07/01/24 07/02/24 07/03/24 23:59 23:59 23:59 Intake Total 3155 / 3155 425 / 425 50 / 50 Output Total 1250 / 1700 1325 / 1625 605 / 605 Balance 1905 / 1455 -900 / -1200 -555 / -555 Lab / Micro Data 07/03/24 06:33 07/03/24 06:33 Labs: Laboratory Results - last 24 hr 07/01/24 10:04: Urine Color Parag, Urine Clarity Cloudy, Urine pH 6.0, Ur Specific Mosquero 1.010, Urine Protein 100 H, Urine Glucose (UA) Normal, Urine Ketones 5 H, Urine Occult Blood 250 H, Urine Nitrite Positive H, Urine Bilirubin6 H, Urine Urobilinogen 12 H, Ur Leukocyte Esterase 500 H, Urine RBC > 100 SEEN,Urine WBC 10-25 SEEN, Ur Squamous Epith Cells 0 SEEN, Urine Bacteria 0 SEEN, Urine Mucus 0 SEEN 07/03/24 06:33: WBC 8.2, RBC 3.93 L, Hgb 11.7 L, Hct 37.3 L, MCV 94.9 H, MCH 29.8, MCHC 31.4 L, RDW Std Deviation 53.0 H, RDW Coeff of Yanira 15.1 H, Plt Count 86 L, MPV 12.4 H, Sodium 138, Potassium 3.8, Chloride 107, Carbon Dioxide 21.7, Anion Gap 10, BUN 20 H, Creatinine 1.76 H, Estim Creat Clear Calc 39.97 L, Est GFR (MDRD) Non- Af 40 L, BUN/Creatinine Ratio 11.4, Glucose 98, Calcium 8.4 Micro: Microbiology 07/01/24 10:21 Blood Culture (Wb) - Anticubital Left Blood Culture - Preliminary No growth in 48 hours. 07/01/24 09:42 Blood Culture (Wb) - Anticubital Left Blood Culture - Preliminary No growth in 48 hours. 07/01/24 10:04 Urine Catheter - Maddox Urine Culture - Final Meth. resistant Staph. aureus 07/01/24 11:26 Mucosa - Nose SARS-CoV-2, Influenza & RSV (PCR) - Final Radiography Diagnostic Testing: Radiology Impression Venous Doppler Study 07/01/24 11:17 Interpretation Summary Deep veins of the left lower extremity are patent and compressible segmentally. There is no evidence of left lower extremity deep vein thrombosis. The left great saphenous vein appears patent andcompressible segmentally. Arterialized flow identified in great saphenous vein, femoral vein, common femoral vein suggesting presence of possible fistula. Ordering Physician: Kulwinder De La O Referring Physician: Jenae Santamaria Performed By: Kameron Boyer RVT Physical Exam Const alert, oriented x3 and no apparent distress Constitutional Narrative: Elderly male, somewhat unkempt appearing but energy improved from admission, sitting back comfortably in bed, conversing normally, in no acute distress. General Appearance: cooperative and comfortable HEENT normocephalic, head/scalp atraumatic, hearing grossly normal bilaterally, nasal mucous membranes and turbinates normal and moist oral mucous membranes Eyes PERRL, EOMs intact bilaterally and conjunctivae normal Neck full ROM Chest inspection of chest normal Resp normal respiratory effort and no use of accessory muscles Cardio regular rate, regular rhythm, no murmurs and peripheral pulses 2+ throughout GI normal to inspection, nondistended, normoactive bowel sounds, soft to palpation,non-tender and non-distended GI Narrative: Colostomy bag noted with normal-appearing stool contents. Back/Spine normal ROM Extremity Extremity Narrative: Severely swollen left lower extremity from waist down with mild erythema and +1- 2 pitting edema noted, stable. Skin no rashes or lesions noted Psych mental status grossly normal Assessment & Plan Assessment/Plan (1) Acidosis, lactic: (2) Acute UTI: PLAN: Plan Patient is a 74-year-old male who presented to [facility] ED on 07/01/2024 with UTI symptoms and nausea with vomiting. 1. Concern for sepsis secondary to complicated UTI in setting of chronic urinary retention with chronic indwelling Maddox catheter versus aspiration pneumonia ? Met SIRS criteria on admit with leukocytosis and tachycardia in setting of suspected UTI. Lactic acid 2.4. UA with 500 leukocyte esterase and positive nitrites, though with 0 bacteria. Chest x-ray unremarkable, but CT abdomen pelvis showed subtle groundglass opacity in right lower lobe concerning for early pneumonia, as well as hydronephrosis and hydroureter to the right kidney suspected secondary to chronic reflux. Has known dysphagia as noted below. Most recent urine culture data growing MRSA but has grown Proteus in the past aswell. Given 2 L IV fluids total on admit with improvement in lactate. Maddox catheter exchanged in the ED. Urine culture finalized on 07/03 growing greater than 100,000 MRSA again. Treated with IV vancomycin and Zosyn on admit, will de-escalate to p.o. doxycycline on 07/03 with plan for 7- day course of antibioticstotal. 2. Dysphagia ? Speech therapy following. Patient had episode of reported choking with food on the evening of admission. On chart review, patient had MBSS done in December 2023 for that was consistent with severe oropharyngeal dysphagia and esophageal dysphagia. Had EGD done at that time that showed eosinophilic esophagitis and benign-appearing esophageal stenoses that were dilated. Had repeat EGD in January 2024 with moderate Schatzki ring identified that was treated with APC as well as abnormal esophageal motility consistent with achalasia that was injected with botulinum toxin. Per speech therapy on 07/02, patient okay for minced and moist thin liquids with total feed supervision. Also recommended repeat MBSS and this has been ordered. Given concern for aspiration pneumonia as noted above, will also consult GI for consideration of repeat EGD during thishospitalization. 3. Severe left lower extremity swelling with concern for common femoral artery dissection, history of PAD with bilateral aortofemoral bypass, history of LLE DVT ? Severe left lower extremity swelling noted on exam on admit. Has history of bilateral aortofemoral bypass in 2013 as well as extensive LLE DVT in 2023. Is on Eliquis and reports compliance. Venous duplex ultrasound on 07/02 showed no DVT but did show arterialized flow identified in the great saphenous, femoral and common femoral veins suggesting presence of possible fistula. Will discuss with vascular surgery on if there are inpatient needs but suspect this will be an outpatient issue. Continue home Eliquis. 4. Elevated creatinine in setting of CKD stage IIIb, resolved ? Creatinine 2.13 on admit, baseline around 1.9. Suspected prerenal in setting of concern for sepsis from UTI as noted above. IV fluid resuscitation given as above on admit. Repeat BMP on hospital day 2 with improvement in creatinine back to baseline. 5. Mild acute on chronic debility ? PT/OT/case management following. Lives with son and daughter, uses walker at baseline. Has required SNF placement after multiple hospitalizations in the past. Poor therapy scores on hospital day 2, will follow-up with case management but likely planning for SNF on discharge. Chronic medical conditions: ? Type 2 diabetes mellitus: Hold home linagliptin. Treating with sliding scale insulin with meals while inpatient. ? Hypertension, hyperlipidemia, history of CVA with residual left-sided weakness: Stable. Continue home aspirin and statin. Holding home amlodipine. ? Hypothyroidism: Continue home Synthroid. ? History of rectal cancer s/p chemotherapy and radiation therapy and resection of left colon and entire rectum with permanent colostomy placement in 2020: Continue outpatient follow-up with oncology. ? History of AAA without rupture: Outpatient follow-up. ? GERD: Continue home PPI. DVT prophylaxis: Not indicated, on Eliquis CODE STATUS: Full code, verified Expected disposition: Likely SNF, 1 to 2 days Total clinical time spent by myself addressing the patient's medical issues, reviewing all the data, and collaborating with patient's care team: 35 minutes. Charges/Coding Visit Charges Inpatient E&M: 32504 Subs Hosp L2 07/03/24 1055 <Electronically signed by Kulwinder De La O DO> Cosigner Signature (if applicable): CC: ~ Signed [facility] Work Phone: [phone] 292-152004-07-2025 Progress note [facility] Medical Records Department [address] [place] [address] Progress Note - Hospitalist 07/03/24 1039 MR#: [id number] Acct: [id number] Name: EMELIA JOHNSON Rep #:[id number] : 1950 74 From: Kulwinder bright DO PCP: Jenae Santamaria MD Status:ADM IN Location: [place] [address] Reason for Visit Reason for Visit: Diagnoses Acidosis, unspecified (07/01/24) Urinary tract infection, site not specified (07/01/24) Subjective Subjective Saw patient at bedside this morning. Patient did appear to have improved energythis morning from previous days. Was sitting back comfortably in bed and answering questions appropriately. He denied any acute pain or discomfort this morning. Denied any issues with his catheter. Stated that his left leg feels about the same today as previous days. No new concerns today. Objective Data Objective Data Vital Signs: Vital Signs Temp Pulse Resp BP Pulse Ox O2 Del Method O2 Flow Rate 97.8 F 89 18 104/65 99 Nasal Cannula 1.5 07/03/24 08:19 07/03/24 08:19 07/03/24 08:19 07/03/24 08:19 07/03/24 08:19 07/03/24 08:35 07/03/24 09:35 Oxygen Flow Rate (L/min) 1.5 Oxygen Delivery Method Nasal Cannula Weight: 85.8 kg Body Mass Index (BMI) 27.9 Intake & Output: Intake and Output for Last 24 Hours 07/01/24 07/02/24 07/03/24 23:59 23:59 23:59 Intake Total 3155 / 3155 425 / 425 50 / 50 Output Total 1250 / 1700 1325 / 1625 605 / 605 Balance 1905 / 1455 -900 / -1200 -555 / -555 Lab / Micro Data 07/03/24 06:33 07/03/24 06:33 Labs: Laboratory Results - last 24 hr 07/01/24 10:04: Urine Color Parag, Urine Clarity Cloudy, Urine pH 6.0, Ur Specific [place]qu[place] 1.010, Urine Protein 100 H, Urine Glucose (UA) Normal, Urine Ketones 5 H, Urine Occult Blood 250 H, Urine Nitrite Positive H, Urine Bilirubin6 H, Urine Urobilinogen 12 H, Ur Leukocyte Esterase 500 H, Urine RBC > 100 SEEN,Urine WBC 10-25 SEEN, Ur Squamous Epith Cells 0 SEEN, Urine Bacteria 0 SEEN, Urine Mucus 0 SEEN 07/03/24 06:33: WBC 8.2, RBC 3.93 L, Hgb 11.7 L, Hct 37.3 L, MCV 94.9 H, MCH 29.8, MCHC 31.4 L, RDWStd Deviation 53.0 H, RDW Coeff of Yanira 15.1 H, Plt Count 86 L, MPV 12.4 H, Sodium 138, Potassium 3.8, Chloride 107, Carbon Dioxide 21.7, Anion Gap 10, BUN 20 H, Creatinine 1.76 H, Estim Creat Clear Calc 39.97 L, Est GFR (MDRD) Non-Af 40 L, BUN/Creatinine Ratio 11.4, Glucose 98, Calcium 8.4 Micro: Microbiology 07/01/24 10:21 Blood Culture (Wb) - Anticubital Left Blood Culture - Preliminary No growth in 48 hours. 07/01/24 09:42 Blood Culture (Wb) - Anticubital Left Blood Culture - Preliminary No growth in 48 hours. 07/01/24 10:04 Urine Catheter - Maddox Urine Culture - Final Meth. resistant Staph. aureus 07/01/24 11:26 Mucosa - Nose SARS-CoV-2, Influenza & RSV (PCR) - Final Radiography Diagnostic Testing: Radiology Impression Venous Doppler Study 07/01/24 11:17 Interpretation Summary Deep veins of the left lower extremity are patent and compressible segmentally. There is no evidence of left lower extremity deep vein thrombosis. The left great saphenous vein appears patent andcompressible segmentally. Arterialized flow identified in great saphenous vein, femoral vein, common femoral vein suggesting presence of possible fistula. Ordering Physician: Kulwinder De La O Referring Physician: Jenae Santamaria Performed By: Kameron Boyer, RVT Physical Exam Const alert, oriented x3 and no apparent distress Constitutional Narrative: Elderly male, somewhat unkempt appearing but energy improved from admission, sitting back comfortably in bed, conversing normally, in no acute distress. General Appearance: cooperative and comfortable HEENT normocephalic, head/scalp atraumatic, hearing grossly normal bilaterally, nasal mucous membranes and turbinates normal and moist oral mucous membranes Eyes PERRL, EOMs intact bilaterally and conjunctivae normal Neck full ROM Chest inspection of chest normal Resp normal respiratory effort and no use of accessory muscles Cardio regular rate, regular rhythm, no murmurs and peripheral pulses 2+ throughout GI normal to inspection, nondistended, normoactive bowel sounds, soft to palpation,non-tender and non-distended GI Narrative: Colostomy bag noted with normal-appearing stool contents. Back/Spine normal ROM Extremity Extremity Narrative: Severely swollen left lower extremity from waist down with mild erythema and +1- 2 pitting edema noted, stable. Skin no rashes or lesions noted Psych mental status grossly normal Assessment & Plan Assessment/Plan (1) Acidosis, lactic: (2) Acute UTI: PLAN: Plan Patient is a 74-year-old male who presented to [facility] ED on 07/01/2024 with UTI symptoms and nausea with vomiting. 1. Concern for sepsis secondary to complicated UTI in setting of chronic urinary retention with chronic indwelling Maddox catheter versus aspiration pneumonia ? Met SIRS criteria on admit with leukocytosis and tachycardia in setting of suspected UTI. Lactic acid 2.4. UA with 500 leukocyte esterase and positive nitrites, though with 0 bacteria. Chest x-ray unremarkable, but CT abdomen pelvis showed subtle groundglass opacity in right lower lobe concerningfor early pneumonia, as well as hydronephrosis and hydroureter to the right kidney suspected secondary to chronic reflux. Has known dysphagia as noted below. Most recent urine culture data growing MRSA but has grown Proteus in the past aswell. Given 2 L IV fluids total on admit with improvement in lactate. Maddox catheter exchanged in the ED. Urine culture finalized on 07/03 growing greater than 100,000 MRSA again. Treated with IV vancomycin and Zosyn on admit, will de-escalate to p.o. doxycyclineon 07/03 with plan for 7-day course of antibioticstotal. 2. Dysphagia ? Speech therapy following. Patient had episode of reported choking with food on the evening of admission. On chart review, patient had MBSS done in December 2023 for that was consistent with severe oropharyngeal dysphagia and esophageal dysphagia. Had EGD done at that time that showed eosinophilic esophagitis and benign-appearing esophageal stenoses that were dilated. Had repeat EGD in January 2024 with moderate Schatzki ring identified that was treated with APC as well as abnormal esophageal motility consistent with achalasia that was injected with botulinum toxin. Per speech therapy on 07/02, patient okay for minced and moist thin liquids with total feed supervision. Also recommended repeat MBSS and this has been ordered. Given concern for aspiration pneumonia as noted above, will also consult GI for consideration of repeat EGD during thishospitalization. 3. Severe left lower extremity swelling with concern for common femoral artery dissection, history of PAD with bilateral aortofemoral bypass, history of LLE DVT ? Severe left lower extremity swelling noted on exam on admit. Has history of bilateral aortofemoral bypass in 2013 as well as extensive LLE DVT in 2023. Is on Eliquis and reports compliance. Venous duplex ultrasound on 07/02 showed no DVT but did show arterialized flow identified in the great saphenous, femoral and common femoral veins suggesting presence of possible fistula. Will discuss with vascular surgery on if there are inpatient needs but suspect this will be an outpatient issue. Continuehome Eliquis. 4. Elevated creatinine in setting of CKD stage IIIb, resolved ? Creatinine 2.13 on admit, baseline around 1.9. Suspected prerenal in setting of concern for sepsis from UTI as noted above. IV fluid resuscitation given as above on admit. Repeat BMP on hospital day 2 with improvement in creatinine back to baseline. 5. Mild acute on chronic debility ? PT/OT/case management following. Lives with son and daughter, uses walker at baseline. Has required SNF placement after multiple hospitalizations in the past. Poor therapy scores on hospital day 2,will follow-up with case management but likely planning for SNF on discharge. Chronic medical conditions: ? Type 2 diabetes mellitus: Hold home linagliptin. Treating with sliding scale insulin with meals while inpatient. ? Hypertension, hyperlipidemia, history of CVA with residual left-sided weakness: Stable. Continue home aspirin and statin. Holding home amlodipine. ? Hypothyroidism: Continue home Synthroid. ? History of rectal cancer s/p chemotherapy and radiation therapy and resection of left colon and entire rectum with permanent colostomy placement in 2020: Continue outpatient follow-up with oncology. ? History of AAA without rupture: Outpatient follow-up. ? GERD: Continue home PPI. DVT prophylaxis: Not indicated, on Eliquis CODE STATUS: Full code, verified Expected disposition: Likely SNF, 1 to 2 days Total clinical time spent by myself addressing the patient's medical issues, reviewing all the data, and collaborating with patient's care team: 35 minutes. Charges/Coding Visit Charges Inpatient E&M: 91552 Subs Hosp L2 07/03/24 1055 Cosigner Signature (if applicable): CC: ~ Signed [facility]04-06-2025 Progress note Author Kulwinder De La O [facility] Note Date/Time July 02, 2024 9:01 am [facility] Medical Records Department [address] [place] [address] Progress Note - Hospitalist 07/02/24 0838 MR#: [id number] Acct: [id number] Name: EMELIA JOHNSON Rep #:[id number] : 1950 74 From: Kulwinder bright DO PCP: Jenae Santamaria MD Status:ADM IN Location: [place] [address] Reason for Visit Reason for Visit: Diagnoses Acidosis, unspecified (07/01/24) Urinary tract infection, site not specified (07/01/24) Subjective Subjective Saw patient at bedside this morning. Patient appeared similar this morning to yesterday, was mildly fatigued appearing but otherwise sitting back comfortably in bed, conversing normally and in no acute distress. Noted that he did have a minor choking episode last night when eating but typically does not have swallowing issues and is hoping to have some food when able. No other new concerns today. Objective Data Objective Data Vital Signs: Vital Signs Temp Pulse Resp BP Pulse Ox O2 Del Method O2 Flow Rate 98.8 F 92 22 H 106/82 H 87 Nasal Cannula 2 07/02/24 03:20 07/02/24 06:45 07/02/24 06:45 07/02/24 03:20 07/02/24 06:45 07/02/24 06:46 07/02/24 06:46 Oxygen Flow Rate (L/min) 2 Oxygen Delivery Method Nasal Cannula Weight: 85.8 kg Body Mass Index (BMI) 27.9 Intake & Output: Intake and Output for Last 24 Hours 06/30/24 07/01/24 07/02/24 23:59 23:59 23:59 Intake Total 3155 / 3155 50 / 50 Output Total 1250 / 1700 550 / 550 Balance 1905 / 1455 -500 / -500 Lab / Micro Data 07/02/24 03:50 07/02/24 03:50 Labs: Laboratory Results - last 24 hr 07/01/24 09:42: WBC 17.0 H, RBC 5.20, Hgb 15.5, Hct 47.5, MCV 91.3, MCH 29.8, MCHC 32.6, RDW Std Deviation 50.0 H, RDW Coeff of Yanira 14.9 H, Plt Count 107 L, MPV 13.1 H, Immature Gran % (Auto) 0.400, Neut % (Auto) 87.3 H, Lymph % (Auto) 6.5 L, [place] % (Auto) 5.0, Eos % (Auto) 0.4, Baso % (Auto) 0.4, Absolute Neuts (auto) 14.9 H, Absolute Lymphs (auto) 1.10, Nucleated RBC % 0, Sodium 136, Potassium 5.5 H, Chloride 99, Carbon Dioxide 22.9, Anion Gap 14, BUN 19, Creatinine 2.13 H, Estim Creat Clear Calc 33.28 L, Est GFR (MDRD) Non-Af 32 L, BUN/Creatinine Ratio 9.1 L, Glucose 184 H, Lactic Acid 2.4 H*, Calcium 9.5 07/01/24 10:04: Urine Color Parag, Urine Clarity Cloudy, Urine pH 6.0, Ur Specific [place] 1.010, Urine Protein 100 H, Urine Glucose (UA) Normal, Urine Ketones 5 H, Urine Occult Blood 250 H, Urine Nitrite Positive H, Urine Bilirubin6 H, Urine Urobilinogen 12 H, Ur Leukocyte Esterase 500 H, Urine RBC > 100 SEEN,Urine WBC 10-25 SEEN, Ur Squamous Epith Cells 0 SEEN, Urine Bacteria 0 SEEN, Urine Mucus 0 SEEN 07/01/24 12:48: Lactic Acid 2.9 H* 07/01/24 16:00: Lactic Acid 2.1 H 07/02/24 03:50: WBC 13.9 H, RBC 4.59 L, Hgb 13.6, Hct 42.9, MCV 93.5, MCH 29.6, MCHC 31.7 L, RDW Std Deviation 52.6 H, RDW Coeff of Yanira 15.2 H, Plt Count 106 L,MPV 12.4 H, Sodium 138, Potassium 4.0, Chloride 106, Carbon Dioxide 20.0 L, Anion Gap 13, BUN 22 H, Creatinine 1.87 H, Estim Creat Clear Calc 37.62 L, Est GFR (MDRD) Non-Af 37 L, BUN/Creatinine Ratio 11.8, Glucose 132 H, Calcium 8.8 Micro: Microbiology 07/01/24 11:26 Mucosa - Nose SARS-CoV-2, Influenza & RSV (PCR) - Final Radiography Diagnostic Testing: Radiology Impression Abdomen/Pelvis CT 07/01/24 11:17 IMPRESSION: Subtle ground-glass opacity in the right lower lobe may represent an early pneumonia. Hydronephrosis and hydroureter of the right kidney suspect chronic reflux from ileo pouch diversion. Correlate with surgical history. Air and fluid in mildly distended small bowel loops of uncertain etiology Cholelithiasis, but no evidence for cholecystitis. Reading Location: [facility] Chest X-Ray 07/01/24 11:17 IMPRESSION: No definite radiographic evidence of an acute cardiopulmonary process [facility] Physical Exam Const alert, oriented x3 and no apparent distress Constitutional Narrative: Elderly male, somewhat unkempt appearing and mildly fatigued appearing, otherwise sitting back comfortably in bed, conversing normally, in no acute distress. Stable. General Appearance: cooperative and comfortable HEENT normocephalic, head/scalp atraumatic, hearing grossly normal bilaterally, nasal mucous membranes and turbinates normal and moist oral mucous membranes Eyes PERRL, EOMs intact bilaterally and conjunctivae normal Neck full ROM Chest inspection of chest normal Resp normal respiratory effort and no use of accessory muscles Cardio regular rate, regular rhythm, no murmurs and peripheral pulses 2+ throughout GI normal to inspection, nondistended, normoactive bowel sounds, soft to palpation,non-tender and non-distended GI Narrative: Colostomy bag noted with normal-appearing stool contents. Back/Spine normal ROM Extremity Extremity Narrative: Severely swollen left lower extremity from waist down with mild erythema and +1- 2 pitting edema noted, stable. Skin no rashes or lesions noted Psych mental status grossly normal Assessment & Plan Assessment/Plan (1) Acidosis, lactic: (2) Acute UTI: PLAN: Plan Patient is a 74-year-old male who presented to [facility] ED on 07/01/2024 with UTI symptoms and nausea with vomiting. 1. Concern for sepsis secondary to complicated UTI in setting of chronic urinary retention with chronic indwelling Maddox catheter ? Met SIRS criteria on admit with leukocytosis and tachycardia in setting of suspected UTI. Lactic acid 2.4. UA with 500 leukocyte esterase and positive nitrites, though with 0 bacteria. Chest x-ray unremarkable. CT abdomen pelvis without contrast showed hydronephrosis and hydroureter to the right kidney suspected secondary to chronic reflux; also showed subtle groundglass opacity inright lower lobe concerning for early pneumonia. Most recent urine culture datagrowing MRSA but has grown Proteus in the past as well. Given 2 L IV fluids total on admit with improvement in lactate. Maddox catheter exchanged in the ED. Continue to treat with IV vancomycin and Zosyn, follow-up urine culture and blood cultures. 2. Severe left lower extremity swelling with concern for common femoral artery dissection, history of PAD with bilateral aortofemoral bypass, history of LLE DVT ? Severe left lower extremity swelling noted on exam on admit. Has history of bilateral aortofemoral bypass in 2013 as well as extensive LLE DVT in 2023. Is on Eliquis and reports compliance. Venous duplex ultrasound completed and preliminary read showed no DVT but was concerning for possible common femoral artery dissection, will follow-up formal vascular surgery read. Okay for conservative management for now. 3. Elevated creatinine in setting of CKD stage IIIb, resolved ? Creatinine 2.13 on admit, baseline around 1.9. Suspected prerenal in setting of concern for sepsis from UTI as noted above. IV fluid resuscitation given as above on admit. Repeat BMP on hospital day 2 with improvement in creatinine back to baseline. 4. Mild acute on chronic debility ? PT/OT/case management following. Lives with son and daughter, uses walker at baseline. Reports worsening weakness over the past several days likely secondary to infection. Appreciate therapy recommendations. 5. Concern for dysphagia ? Speech therapy consulted. Patient had episode of reported choking with food on the evening of admission. Denies any prior history of dysphagia. Made n.p.o. status and appreciate speech therapy recommendations. Chronic medical conditions: ? Type 2 diabetes mellitus: Hold home linagliptin. Treating with sliding scale insulin with meals while inpatient. ? Hypertension, hyperlipidemia, history of CVA with residual left-sided weakness: Stable. Continue home aspirin and statin. Holding home amlodipine. ? Hypothyroidism: Continue home Synthroid. ? History of rectal cancer s/p chemotherapy and radiation therapy and resection of left colon and entire rectum with permanent colostomy placement in 2020: Continue outpatient follow-up with oncology. ? History of AAA without rupture: Outpatient follow-up. ? GERD: Continue home PPI. DVT prophylaxis: Not indicated, on Eliquis CODE STATUS: Full code, verified Expected disposition: Likely SNF, TBD Total clinical time spent by myself addressing the patient's medical issues, reviewing all the data, and collaborating with patient's care team: 35 minutes. Charges/Coding Visit Charges Inpatient E&M: 54238 Subs Hosp L2 07/02/24 0901 <Electronically signed by Kulwinder D eLa O DO> Cosigner Signature (if applicable): CC: ~ Signed [facility] Work Phone: [phone]) 114-837704-06-2025 Consult note Author Paul Santos [facility] Note Date/Time July 02, 2024 7:51 am [facility] Medical Records Department [address] [place] [address] Pharmacokinetic/Renal -Consult 07/01/24 1512 MR#: [id number] Acct: [id number] Name: ALEXEMELIAMELVIN LEDEZMA Rep #:[id number] : 1950 74 From: Paul dial PCP: Jenae Santamaria MD Status:ADM IN Y Location: [place] [address] Consult Antibiotic Management Pharmacy has been consulted to manage selected antibiotic: Vancomycin Type of Intervention Type of Consult: New start Suspected Infection Suspected Infection: Other (UTI) Labs Labs: Sodium 136 mmol/L (133-145) 07/01/24 09:42 Potassium 5.5 mmol/L (3.3-5.1) H 07/01/24 09:42 Chloride 99 mmol/L (98-108) 07/01/24 09:42 Carbon Dioxide 22.9 mmol/L (21.0-32.0) 07/01/24 09:42 Anion Gap 14 (5-15) 07/01/24 09:42 BUN 19 mg/dL (4-19) 07/01/24 09:42 Creatinine 2.13 mg/dL (0.70-1.20) H 07/01/24 09:42 Est GFR (MDRD) Non-Af 32 (>60) L 07/01/24 09:42 BUN/Creatinine Ratio 9.1 RATIO (10-20) L 07/01/24 09:42 Glucose 184 mg/dL (70-99) H 07/01/24 09:42 Microbiology Microbiology: Microbiology 07/01/24 11:26 Mucosa - Nose SARS-CoV-2, Influenza & RSV (PCR) - Final Dosing Weight Weight used for dosin.8 kg Estimated Creatinine Clearance Estimated Creatinine Clearance: 33 ML/MIN Goal Trough Goal Trough: 15-20 mcg/mL Pharmacy Plan for Drug Dosing Pharmacy Plan for Drug Dosing: Give initial load dose of 2000mg IV x1, then continue with 1250mg q24h per [facility] dosing protocol. Check a trough before the 3rd overall dose. Pharmacy Service will continue to monitor and adjust dosing as required. Follow-Up Labs Follow-Up Labs: Trough: Vancomycin Date/Time Labs Ordered Labs to be done on [date and time ordered]: 07/03/24 13:30 07/01/24 1515 <Electronically signed by Paul Wood erg> Date _ Paul Santos 07/02/24 0751 <Electronically signed by Kulwinder chan DO> Cosigner Signature (if applicable): Date Kulwinder De La O DO CC: ~ Signed [facility] Work Phone: 1(830) 295-562304-06-2025 Progress note [facility] Medical Records Department [address] [place] [address] Progress Note - Hospitalist 07/02/24 0838 MR#: [id number] Acct: [id number] Name: EMELIA JOHNSON Rep #:[id number] : 1950 74 From: Kulwinder bright DO PCP: Jenae Santamaria MD Status:ADM IN Location: [place] [address] Reason for Visit Reason for Visit: Diagnoses Acidosis, unspecified (07/01/24) Urinary tract infection, site not specified (07/01/24) Subjective Subjective Saw patient at bedside this morning. Patient appeared similar this morning to yesterday, was mildlyfatigued appearing but otherwise sitting back comfortably in bed, conversing normally and in no acute distress. Noted that he did have a minor choking episode last night when eating but typically does not have swallowing issues and is hoping to have some food when able. No other new concerns today. Objective Data Objective Data Vital Signs: Vital Signs Temp Pulse Resp BP Pulse Ox O2 Del Method O2 Flow Rate 98.8 F 92 22 H 106/82 H 87 Nasal Cannula 2 07/02/24 03:20 07/02/24 06:45 07/02/24 06:45 07/02/24 03:20 07/02/24 06:45 07/02/24 06:46 07/02/24 06:46 Oxygen Flow Rate (L/min) 2 Oxygen Delivery Method Nasal Cannula Weight: 85.8 kg Body Mass Index (BMI) 27.9 Intake & Output: Intake and Output for Last 24 Hours 06/30/24 07/01/24 07/02/24 23:59 23:59 23:59 Intake Total 3155 / 3155 50 / 50 Output Total 1250 / 1700 550 / 550 Balance 1905 / 1455 -500 / -500 Lab / Micro Data 07/02/24 03:50 07/02/24 03:50 Labs: Laboratory Results - last 24 hr 07/01/24 09:42: WBC 17.0 H, RBC 5.20, Hgb 15.5, Hct 47.5, MCV 91.3, MCH 29.8, MCHC 32.6, RDW Std Deviation 50.0 H, RDW Coeff of Yanira 14.9 H, Plt Count 107 L, MPV 13.1 H, Immature Gran % (Auto) 0.400, Neut % (Auto) 87.3 H, Lymph % (Auto) 6.5 L, [place] % (Auto) 5.0, Eos % (Auto) 0.4, Baso % (Auto) 0.4, Absolute Neuts (auto) 14.9 H, Absolute Lymphs (auto) 1.10, Nucleated RBC % 0, Sodium 136, Potassium 5.5 H, Chloride 99, Carbon Dioxide 22.9, Anion Gap 14, BUN 19, Creatinine 2.13 H, Estim Creat Clear Calc 33.28 L, Est GFR (MDRD) Non-Af 32 L, BUN/Creatinine Ratio 9.1 L, Glucose 184 H, Lactic Acid 2.4H*, Calcium 9.5 07/01/24 10:04: Urine Color Parag, Urine Clarity Cloudy, Urine pH 6.0, Ur Specific [place] 1.010, Urine Protein 100 H, Urine Glucose (UA) Normal, Urine Ketones 5 H, Urine Occult Blood 250 H, Urine Nitrite Positive H, Urine Bilirubin6 H, Urine Urobilinogen 12 H, Ur Leukocyte Esterase 500 H, Urine RBC > 100 SEEN,Urine WBC 10-25 SEEN, Ur Squamous Epith Cells 0 SEEN, Urine Bacteria 0 SEEN, Urine Mucus 0 SEEN 07/01/24 12:48: Lactic Acid 2.9 H* 07/01/24 16:00: Lactic Acid 2.1 H 07/02/24 03:50: WBC 13.9 H, RBC 4.59 L, Hgb 13.6, Hct 42.9, MCV 93.5, MCH 29.6, MCHC 31.7 L, RDW Std Deviation 52.6 H, RDW Coeff of Yanira 15.2 H, Plt Count 106 L,MPV 12.4 H, Sodium 138, Potassium 4.0, Chloride 106, Carbon Dioxide 20.0 L, Anion Gap 13, BUN 22 H, Creatinine 1.87 H, Estim Creat Clear Calc 37.62 L, Est GFR (MDRD) Non-Af 37 L, BUN/Creatinine Ratio 11.8, Glucose 132 H, Calcium 8.8 Micro: Microbiology 07/01/24 11:26 Mucosa - Nose SARS-CoV-2, Influenza & RSV (PCR) - Final Radiography Diagnostic Testing: Radiology Impression Abdomen/Pelvis CT 07/01/24 11:17 IMPRESSION: Subtle ground-glass opacity in the right lower lobe may represent an early pneumonia. Hydronephrosis and hydroureter of the right kidney suspect chronic reflux from ileo pouch diversion. Correlate with surgical history. Air and fluid in mildly distended small bowel loops of uncertain etiology Cholelithiasis, but no evidence for cholecystitis. Reading Location: [facility] Chest X-Ray 07/01/24 11:17 IMPRESSION: No definite radiographic evidence of an acute cardiopulmonary process Reading Location: [facility] Physical Exam Const alert, oriented x3 and no apparent distress Constitutional Narrative: Elderly male, somewhat unkempt appearing and mildly fatigued appearing, otherwise sitting back comfortably in bed, conversing normally, in no acute distress. Stable. General Appearance: cooperative and comfortable HEENT normocephalic, head/scalp atraumatic, hearing grossly normal bilaterally, nasal mucous membranes and turbinates normal and moist oral mucous membranes Eyes PERRL, EOMs intact bilaterally and conjunctivae normal Neck full ROM Chest inspection of chest normal Resp normal respiratory effort and no use of accessory muscles Cardio regular rate, regular rhythm, no murmurs and peripheral pulses 2+ throughout GI normal to inspection, nondistended, normoactive bowel sounds, soft to palpation,non-tender and non-distended GI Narrative: Colostomy bag noted with normal-appearing stool contents. Back/Spine normal ROM Extremity Extremity Narrative: Severely swollen left lower extremity from waist down with mild erythema and +1- 2 pitting edema noted, stable. Skin no rashes or lesions noted Psych mental status grossly normal Assessment & Plan Assessment/Plan (1) Acidosis, lactic: (2) Acute UTI: PLAN: Plan Patient is a 74-year-old male who presented to [facility] ED on 07/01/2024 with UTI symptoms and nausea with vomiting. 1. Concern for sepsis secondary to complicated UTI in setting of chronic urinary retention with chronic indwelling Maddox catheter ? Met SIRS criteria on admit with leukocytosis and tachycardia in setting of suspected UTI. Lactic acid 2.4. UA with 500 leukocyte esterase and positive nitrites, though with 0 bacteria. Chest x-ray unremarkable. CT abdomen pelvis without contrast showed hydronephrosis and hydroureter to the right kidney suspected secondary to chronic reflux; also showed subtle groundglass opacity inright lower lobe concerning for early pneumonia. Most recent urine culture datagrowing MRSA but has grown Proteusin the past as well. Given 2 L IV fluids total on admit with improvement in lactate. Maddox catheterexchanged in the ED. Continue to treat with IV vancomycin and Zosyn, follow-up urine culture and blo od cultures. 2. Severe left lower extremity swelling with concern for common femoral artery dissection, history of PAD with bilateral aortofemoral bypass, history of LLE DVT ? Severe left lower extremity swelling noted on exam on admit. Has history of bilateral aortofemoral bypass in 2013 as well as extensive LLE DVT in 2023. Is on Eliquis and reports compliance. Venous duplex ultrasound completed and preliminary read showed no DVT but was concerning for possible common femoral artery dissection, will follow-up formal vascular surgery read. Okay for conservative management for now. 3. Elevated creatinine in setting of CKD stage IIIb, resolved ? Creatinine 2.13 on admit, baseline around 1.9. Suspected prerenal in setting of concern for sepsis from UTI as noted above. IV fluid resuscitation given as above on admit. Repeat BMP on hospital day 2 with improvement in creatinine back to baseline. 4. Mild acute on chronic debility ? PT/OT/case management following. Lives with son and daughter, uses walker at baseline. Reports worsening weakness over the past several days likely secondary to infection. Appreciate therapy recommendations. 5. Concern for dysphagia ? Speech therapy consulted. Patient had episode of reported choking with food on the evening of admission. Denies any prior history of dysphagia. Made n.p.o. status and appreciate speech therapy recommendations. Chronic medical conditions: ? Type 2 diabetes mellitus: Hold home linagliptin. Treating with sliding scale insulin with meals while inpatient. ? Hypertension, hyperlipidemia, history of CVA with residual left-sided weakness: Stable. Continue home aspirin and statin. Holding home amlodipine. ? Hypothyroidism: Continue home Synthroid. ? History of rectal cancer s/p chemotherapy and radiation therapy and resection of left colon and entire rectum with permanent colostomy placement in 2020: Continue outpatient follow-up with oncology. ? History of AAA without rupture: Outpatient follow-up. ? GERD: Continue home PPI. DVT prophylaxis: Not indicated, on Eliquis CODE STATUS: Full code, verified Expected disposition: Likely SNF, TBD Total clinical time spent by myself addressing the patient's medical issues, reviewing all the data, and collaborating with patient's care team: 35 minutes. Charges/Coding Visit Charges Inpatient E&M: 87567 Subs Hosp L2 07/02/24 0901 Cosigner Signature (if applicable): CC: ~ Signed [facility]04-06-2025 Consult note [facility] Medical Records Department [address] [place] [address] Pharmacokinetic/Renal -Consult 07/01/24 1512 MR#: [id number] Acct: [id number] Name: EMELIA JOHNSON Rep #:[id number] : 1950 74 From: Paul dial PCP: Jenae Santamaria MD Status:ADM IN Y Location: [place] [address] Consult Antibiotic Management Pharmacy has been consulted to manage selected antibiotic: Vancomycin Type of Intervention Type of Consult: New start Suspected Infection Suspected Infection: Other (UTI) Labs Labs: Sodium 136 mmol/L (133-145) 07/01/24 09:42 Potassium 5.5 mmol/L (3.3-5.1) H 07/01/24 09:42 Chloride 99 mmol/L (98-108) 07/01/24 09:42 Carbon Dioxide 22.9 mmol/L (21.0-32.0) 07/01/24 09:42 Anion Gap 14 (5-15) 07/01/24 09:42 BUN 19 mg/dL (4-19) 07/01/24 09:42 Creatinine 2.13 mg/dL (0.70-1.20) H 07/01/24 09:42 Est GFR (MDRD) Non-Af 32 (>60) L 07/01/24 09:42 BUN/Creatinine Ratio 9.1 RATIO (10-20) L 07/01/24 09:42 Glucose 184 mg/dL (70-99) H 07/01/24 09:42 Microbiology Microbiology: Microbiology 07/01/24 11:26 Mucosa - Nose SARS-CoV-2, Influenza & RSV (PCR) - Final Dosing Weight Weight used for dosin.8 kg Estimated Creatinine Clearance Estimated Creatinine Clearance: 33 ML/MIN Goal Trough Goal Trough: 15-20 mcg/mL Pharmacy Plan for Drug Dosing Pharmacy Plan for Drug Dosing: Give initial load dose of 2000mg IV x1, then continue with 1250mg q24h per [facility] dosing protocol. Check a trough before the 3rd overall dose. Pharmacy Service will continue to monitor and adjust dosing as required. Follow-Up Labs Follow-Up Labs: Trough: Vancomycin Date/Time Labs Ordered Labs to be done on [date and time ordered]: 07/03/24 13:30 07/01/24 1515 erg> Date _ Paul Santos 07/02/24 0751 [place] DO> Cosigner Signature (if applicable): Date Kulwinder De La O DO CC: ~ Signed [facility]04-05-2025 Discharge summary Author Toni King [facility] Note Date/Time July 01, 2024 3:02 pm [facility] Medical Records Department [address] [place] [address] Emergency Department Summary 07/01/24 MR#: [id number] Acct: [id number] Name: EMELIA JOHNSON Rep #:[id number] : 1950 74 From: Toni King DO PCP: Jenae Santamaria MD Status:ADM IN Location: [place] [address] HPI History of Present Illness Chief Complaint: Complaint Detail of Chief Complaint: Concern for urinary tract infection Informant: patient Narrative Narrative: Patient presents with concern for urinary tract infection. Complains of dysuriasince yesterday. Had nausea and vomited twice. He has history of chronic indwelling Maddox catheter that he states he has changed usually about every 10 days. Patient also has history of colon cancer and has a colostomy. Denies fever chills or sweats. Denies significant abdominal pain. [facility] Medical History Wears glasses Low iron Stroke/cerebrovascular accident Former smoker Colostomy in place Family history of abdominal aortic aneurysm repair DVT (deep venous thrombosis) Enteritis Cholelithiasis Acidosis, lactic Encephalopathy due to infection Acute hypoxemic respiratory failure Complicated urinary tract infection Severe sepsis with acute organ dysfunction Aspiration into respiratory tract FIOR (acute kidney injury) Colon cancer Home Medications ?Medication ?Instructions ?Recorded ?Last Taken ?Type finasteride 5 mg tablet 5 mg PO DAILY prostate 06/2106/30/24 History ferrous sulfate 325 mg (65 mg 325 mg PO BIDCM iron #1 TAB 06/26/23 01/09/24 Rx iron) tablet levothyroxine 100 mcg tablet 100 mcg PO DAILY@0600 #30 tabs 01/15/24 06/30/24 Rx pantoprazole 40 mg tablet,delayed 40 mg PO BID #60 tab s 01/15/24 06/30/24 Rx release albuterol sulfate 90 mcg/actuation 1 - 2 puff inhalati on 4X/DAY PRN 02/22/24 Unknown History aerosol inhaler wheezing apixaban 5 mg tablet (Eliquis) 5 mg PO BID 02/22/24 History amlodipine 5 mg tablet 5 mg PO DAILY 07/01/2406/30 History aspirin 81 mg tablet,delayed 81 mg PO DAILY 07/01/24 0 06/30/24 History release ergocalciferol (vitamin D2) 1,250 1,250 mcg PO MO 08/2006/26/24 History mcg (50,000 unit) capsule fluticasone fur. 100 mcg-umeclid 1 ea inhalation DAILY 07/01/24 06/30/24 History 62.5 mcg-vilant 25 mcg inhalat.powder (Trelegy Ellipta) icosapent ethyl 1 gram capsule 2 g PO BID 07/01/2407/21 History levothyroxine 150 mcg tablet 150 mcg PO DAILY 07/01/24 06/30/24 History linagliptin 5 mg tablet (Tradjenta) 5 mg PO DAILY 08/2006/30/24 History rosuvastatin 20 mg tablet 20 mg PO QHS 07/01/24 History Allergy/AdvReac Type Severity Reaction Status Date / Time No Known Allergies Allergy Verified 02/23/24 11:43 Surgical History Hx of abdominal surgery Hx of endarterectomy (~2020) Social History Smoking Status: Former smoker Tobacco: How many years used: 50 ROS ROS ED Review of Systems ROS Unobtainable: other Constitutional Constitutional ED: Reports lethargy; Denies chills, fever(s), sweats or weight loss Eyes Eyes: Denies blurry vision, change in vision or diplopia ENT ENT ED: Denies rhinorrhea or sore throat Cardiovascular Cardiovascular: Denies chest pain, orthopnea or racing heartbeat Respiratory/Chest Respiratory/Chest: Denies cough, dyspnea, dyspnea on exertion, orthopnea or sputum Gastrointestinal Gastrointestinal: Reports nausea and vomiting; Denies abdominal pain or diarrhea Genitourinary Genitourinary ED: Reports dysuria; Denies hematuria or urinary frequency Musculoskeletal Musculoskeletal: Denies arthralgias, back pain, myalgias or neck pain Integumentary Denies abscess, Abrasions or rash Neurologic Neurologic: Denies headache(s) or weakness Psychiatric Psychiatric: Denies anxiety, depression or suicidal thoughts Endocrine Endocrinology: Denies polydipsia, polyphagia or polyuria Hematologic/Lymphatic Hematologic/Lymphatic: Denies easy bleeding, easy bruising or lymphadenopathy Allergic/Immunologic Allergic/Immunologic ED: Denies mouth swelling, tongue swelling or urticaria EXAM Physical Exam Const Vital Signs: 07/01/24 09:22 07/01/24 10:25 Temperature 97.9 F 98.6 F Temperature Source Oral Oral Pulse Rate 106 H 107 H Respiratory Rate 18 18 Blood Pressure 150/63 H 132/90 H Blood Pressure Mean 92 104 Pulse Ox 95 95 Oxygen Delivery Method Room Air Room Air Positive well nourished and well developed General Appearance ED: well developed and NAD HEENT Reports TM's clear and moist mucous membranes normocephalic and atraumatic; Negative for trauma or tenderness Tympanic Membrane ED: Yes TM's clear Eyes PERRL and EOMs intact bilaterally General Eye ED: Negative for pale conjunctiva or scleral icterus Neck no lymphadenopathy, supple and no JVD General: Negative for tenderness Chest Wall inspection of chest normal and palpation of chest normal Chest: Negative for tenderness Resp normal respiratory effort and clear to auscultation bilaterally Effort and Inspection: Negative for respiratory distress or pain with movement Auscultation: Negative for rhonchi, wheezes or diminished lung sounds Cardio regular rate, regular rhythm, S1 normal heart sound, S2 normal heart sound and no murmurs Peripheral Pulses: pulses 2+ throughout GI normal to inspection, nondistended, normoactive bowel sounds, soft to palpation,non-tender, non-distended and no masses GI Narrative: Patient with colostomy left lower quadrant. Seems to have brown stool in the bag without evidence of gross blood. No significant tenderness to the abdomen. Narrative: Chronic indwelling Maddox catheter. There is a foul odor to the urine Back/Spine no CVA tenderness and no thoracic nor lumbar tenderness Extremity normal to inspection General Extremety ED: Negative for edema General Extremity: Negative for edema Neuro oriented x3, CN's II-XII intact bilaterally, no sensory deficits noted and gait normal Sensorium / Orientation: awake, alert, oriented to person, oriented to place andoriented to time Motor Exam: strength 5/5 throughout and strength abnormal Psych mental status grossly normal Skin no rashes or lesions noted and no wounds MDM MDM MDM Narrative Medical decision making narrative: Presents to the emergency department with concern for UTI. He has had some dysuria since yesterday. He vomited twice today. He has had some chills. Denies fever. Denies back pain. Denies significant abdominal pain. IV line established. CBC with differential obtained showed a white count 17,000 with hemoglobin 15.5 and platelet count of 107. Chemistries showed a potassium that was elevated at 5.5 however there was some hemolysis. BUN 19 and creatinine 2.13. Glucose 184. Lactate elevated 2.4. Urinalysis positive for 500 leukocyte esterase and 10-25 WBCs with no bacteria seen. There was a foul odor to the urine. I did start patient on Rocephin IV. Urine culture sent as well as blood cultures. He was given Zofran for nausea. Will discuss with hospitalist evaluate for admission for UTI. Patient's had prior episodes of sepsis and I am concerned this may continue to worsen as far as symptoms. Lab Data Attestation: I reviewed the patient's lab results. Labs: Laboratory Results - last 24 hr 07/01/24 07/01/24 09:42 10:04 WBC 17.0 H RBC 5.20 Hgb 15.5 Hct 47.5 MCV 91.3 MCH 29.8 MCHC 32.6 RDW Std Deviation 50.0 H RDW Coeff of Yanira 14.9 H Plt Count 107 L MPV 13.1 H Immature Gran % (Auto) 0.400 Neut % (Auto) 87.3 H Lymph % (Auto) 6.5 L [place] % (Auto) 5.0 Eos % (Auto) 0.4 Baso % (Auto) 0.4 Absolute Neuts (auto) 14.9 H Absolute Lymphs (auto) 1.10 Nucleated RBC % 0 Sodium 136 Potassium 5.5 H Chloride 99 Carbon Dioxide 22.9 Anion Gap 14 BUN 19 Creatinine 2.13 H Estim Creat Clear Calc 33.28 L Est GFR (MDRD) Non-Af 32 L BUN/Creatinine Ratio 9.1 L Glucose 184 H Lactic Acid 2.4 H* Calcium 9.5 Urine Color Parag Urine Clarity Cloudy Urine pH 6.0 Ur Specific [place] 1.010 Urine Protein 100 H Urine Glucose (UA) Normal Urine Ketones 5 H Urine Occult Blood 250 H Urine Nitrite Positive H Urine Bilirubin 6 H Urine Urobilinogen 12 H Ur Leukocyte Esterase 500 H Urine RBC > 100 SEEN Urine WBC 10-25 SEEN Ur Squamous Epith Cells 0 SEEN Urine Bacteria 0 SEEN Urine Mucus 0 SEEN Discharge Plan Dx/Rx/DC Orders Clinical Impression: Acute UTI, Acidosis, lactic, Vomiting, Leukocytosis Disposition Disposition: Acute Care Hospital [facility] What to do if you have Problems For any increased pain, shortness of breath, bleeding, nausea or vomiting, chestpain, or any unexpected problems, contact your Primary Care Provider. Call [facility] ([phone]) or report to the closest Emergency Room. Call 911 if necessary. 07/01/24 6725 <Electronically signed by Toni King DO> Cosigner Signature (if applicable): CC: Jenae Santamaria MD ~ Signed [facility] Work Phone: [phone] 933-790404-05-2025 History and physical note Author Kulwinder De La O [facility] Note Date/Time July 01, 2024 2:41 pm [facility] Medical Records Department [address] [place] [address] H&P Exam - Hospitalist 07/01/24 1110 MR#: [id number] Acct: [id number] Name: EMELIA JOHNSON Rep #:[id number] : 1950 74 From: Kulwinder Lloyd deborah DO PCP: Jenae Santamaria MD Status:ADM IN Location: U [id number] HPI - General General Date of Admission: 07/01/24 Date of Service: 07/01/24 Chief Complaint: UTI symptoms with nausea and vomiting HPI Narrative EMELIA JOHNSON, is a 74 M who presented to [facility] ED on 07/01/24with UTI symptoms and nausea with vomiting. Patient has history of chronic indwelling Maddox catheter that he usually has changed about every 10 days. He began to have dysuria yesterday and then developed nausea with 2 vomiting episodes this morning. Patient lives at home with his son and daughter. Uses awalker at baseline but states he has been more fatigued over the past several days and not been moving around much. Medical history is otherwise significant for rectal cancer s/p chemoradiation therapy with colonic resection and permanent colostomy, PAD s/p aortobifemoral bypass, stroke with residual left-sided weakness and left lower extremity DVT. In the ED he was tachycardic to the low 110s but otherwise hemodynamically stable on room air and afebrile. Labs notable for WBC count 17, lactate 2.4. UA showed positive nitrites, 500 leukocyte esterase, 0 bacteria. Chest x-ray unremarkable. COVID/recess IV negative. CT abdomen pelvis showed subtle groundglass opacity in the right lower lobe that may represent early pneumonia, chronic hydronephrosis and hydroureter of right kidney, cholelithiasis without evidence of cholecystitis. He was given IV fluids and started on antibiotics, and hospitalist was contactedfor admission. I saw the patient at bedside in the ED. Patient was somewhat unkempt appearing and mildly fatigued appearing but otherwise sitting back comfortably in bed, conversing normally and in no acute distress. He did report mild nausea currently but otherwise denied any pain or discomfort. Denies any fevers or chills. Denies any issues with his catheter at this time. Notably did have a very swollen left lower extremity on exam but stated this is chronic for him andhe denies any new pain or discomfort in that area. No other acute concerns at this time. [facility] Medical History Wears glasses Low iron Stroke/cerebrovascular accident Former smoker Colostomy in place Family history of abdominal aortic aneurysm repair DVT (deep venous thrombosis) Enteritis Cholelithiasis Acidosis, lactic Encephalopathy due to infection Acute hypoxemic respiratory failure Complicated urinary tract infection Severe sepsis with acute organ dysfunction Aspiration into respiratory tract FIOR (acute kidney injury) Colon cancer Home Medications ?Medication ?Instructions ?Recorded ?Last Taken ?Type finasteride 5 mg tablet 5 mg PO DAILY prostate 06/2106/30/24 History ferrous sulfate 325 mg (65 mg 325 mg PO BIDCM iron #1 TAB 06/26/23 01/09/24 Rx iron) tablet levothyroxine 100 mcg tablet 100 mcg PO DAILY@0600 #30 tabs 01/15/24 06/30/24 Rx pantoprazole 40 mg tablet,delayed 40 mg PO BID #60 tab s 01/15/24 06/30/24 Rx release albuterol sulfate 90 mcg/actuation 1 - 2 puff inhalati on 4X/DAY PRN 02/22/24 Unknown History aerosol inhaler wheezing apixaban 5 mg tablet (Eliquis) 5 mg PO BID 02/22/24 History amlodipine 5 mg tablet 5 mg PO DAILY 07/01/2406/30 History aspirin 81 mg tablet,delayed 81 mg PO DAILY 07/01/24 0 06/30/24 History release ergocalciferol (vitamin D2) 1,250 1,250 mcg PO MO 08/2006/26/24 History mcg (50,000 unit) capsule fluticasone fur. 100 mcg-umeclid 1 ea inhalation DAILY 07/01/24 06/30/24 History 62.5 mcg-vilant 25 mcg inhalat.powder (Trelegy Ellipta) icosapent ethyl 1 gram capsule 2 g PO BID 07/01/2407/21 History levothyroxine 150 mcg tablet 150 mcg PO DAILY 07/01/24 06/30/24 History linagliptin 5 mg tablet (Tradjenta) 5 mg PO DAILY 08/2006/30/24 History rosuvastatin 20 mg tablet 20 mg PO QHS 07/01/24 History Allergy/AdvReac Type Severity Reaction Status Date / Time No Known Allergies Allergy Verified 07/01/24 13:29 Surgical History Hx of abdominal surgery Hx of endarterectomy (~2020) Social History (Reviewed 02/23/24 @ 11: by Dr. Dez Malloy MD) Smoking Status: Former smoker Tobacco: How many years used: 50 ROS Constitutional Constitutional: Reports fatigue and weakness; Denies chills or fever(s) Eyes Eyes: Denies change in vision Cardiovascular Cardiovascular: Denies chest pain Respiratory/Chest Respiratory/Chest: Denies cough, productive cough or shortness of breath at rest Gastrointestinal Gastrointestinal: Reports nausea and vomiting; Denies abdominal pain, constipation or diarrhea Genitourinary Genitourinary: Reports dysuria Musculoskeletal Musculoskeletal: Denies arthralgias or myalgias Vital Signs Vital Signs Vital Signs: 07/01/24 09:22 07/01/24 10:25 Temperature 97.9 F 98.6 F Temperature Source Oral Oral Pulse Rate 106 H 107 H Respiratory Rate 18 18 Blood Pressure 150/63 H 132/90 H Blood Pressure Mean 92 104 Pulse Ox 95 95 Oxygen Delivery Method Room Air Room Air Weight Weight: 87.3 kg Body Mass Index (BMI) 28.4 Physical Exam Const alert, oriented x3 and no apparent distress Constitutional Narrative: Elderly male, somewhat unkempt appearing and mildly fatigued appearing, otherwise sitting back comfortably in bed, conversing normally, in no acute distress. General Appearance: cooperative and comfortable HEENT normocephalic, head/scalp atraumatic, hearing grossly normal bilaterally and nasal mucous membranes and turbinates normal HEENT Narrative: Dry mucous membranes. Eyes PERRL, EOMs intact bilaterally and conjunctivae normal Neck full ROM Chest inspection of chest normal Resp normal respiratory effort and no use of accessory muscles Cardio no murmurs and peripheral pulses 2+ throughout Cardio Narrative: Tachycardic, regular rhythm. GI normal to inspection, nondistended, normoactive bowel sounds, soft to palpation,non-tender and non-distended GI Narrative: Colostomy bag noted with normal-appearing stool contents. Back/Spine normal ROM Extremity Extremity Narrative: Severely swollen left lower extremity from waist down with mild erythema and +1- 2 pitting edema noted Skin no rashes or lesions noted Psych mental status grossly normal Results Lab / Micro Data 07/01/24 09:42 07/01/24 09:42 Labs: Laboratory Results - last 24 hr 07/01/24 09:42: WBC 17.0 H, RBC 5.20, Hgb 15.5, Hct 47.5, MCV 91.3, MCH 29.8, MCHC 32.6, RDW Std Deviation 50.0 H, RDW Coeff of Yanira 14.9 H, Plt Count 107 L, MPV 13.1 H, Immature Gran % (Auto) 0.400, Neut % (Auto) 87.3 H, Lymph % (Auto) 6.5 L, [place] % (Auto) 5.0, Eos % (Auto) 0.4, Baso % (Auto) 0.4, Absolute Neuts (auto) 14.9 H, Absolute Lymphs (auto) 1.10, Nucleated RBC % 0, Sodium 136, Potassium 5.5 H, Chloride 99, Carbon Dioxide 22.9, Anion Gap 14, BUN 19, Creatinine 2.13 H, Estim Creat Clear Calc 33.28 L, Est GFR (MDRD) Non-Af 32 L, BUN/Creatinine Ratio 9.1 L, Glucose 184 H, Lactic Acid 2.4 H*, Calcium 9.5 07/01/24 10:04: Urine Color Parag, Urine Clarity Cloudy, Urine pH 6.0, Ur Specific [place] 1.010, Urine Protein 100 H, Urine Glucose (UA) Normal, Urine Ketones 5 H, Urine Occult Blood 250 H, Urine Nitrite Positive H, Urine Bilirubin6 H, Urine Urobilinogen 12 H, Ur Leukocyte Esterase 500 H, Urine RBC > 100 SEEN,Urine WBC 10-25 SEEN, Ur Squamous Epith Cells 0 SEEN, Urine Bacteria 0 SEEN, Urine Mucus 0 SEEN Assessment & Plan Assessment/Plan (1) Acidosis, lactic: (2) Acute UTI: PLAN: Plan Patient is a 74-year-old male who presented to [facility] ED on 07/01/2024 with UTI symptoms and nausea with vomiting. 1. Concern for sepsis secondary to complicated UTI in setting of chronic urinary retention with chronic indwelling Maddox catheter ? Admit under inpatient status to PCU. Met SIRS criteria on admit with leukocytosis and tachycardia in setting of suspected UTI. Lactic acid 2.4. UA with 500 leukocyte esterase and positive nitrites, though with 0 bacteria. Chest x-ray unremarkable. CT abdomen pelvis without contrast showed hydronephrosis and hydroureter to the right kidney suspected secondary to chronic reflux; also showed subtle groundglass opacity in right lower lobe concerning for early pneumonia. Most recent urine culture data growing MRSA buthas grown Proteus in the past as well. Will treat with IV vancomycin and Zosyn for now. Follow-up urine culture and blood cultures. Will treat with 2 L of IVfluids total for now and monitor closely. Maddox catheter exchanged in the ED. 2. Severe left lower extremity swelling with concern for common femoral artery dissection, history of PAD with bilateral aortofemoral bypass, history of LLE DVT ? Severe left lower extremity swelling noted on exam on admit. Has history of bilateral aortofemoral bypass in 2013 as well as extensive LLE DVT in 2023. Is on Eliquis and reports compliance. Venous duplex ultrasound ordered and preliminary read was concerning for possible common femoral artery dissection, will follow-up formal vascular surgery read. Okay for conservative management for now. 3. Elevated creatinine in setting of CKD stage IIIb ? Creatinine 2.13 on admit, baseline around 1.9. Suspected prerenal in setting of concern for sepsis from UTI as noted above. IV fluid resuscitation given as above on admit. Follow-up a.m. BMP and monitor urine output. 4. Mild acute on chronic debility ? PT/OT/case management consulted. Lives with son and daughter, uses walker at baseline. Reports worsening weakness over the past several days likely secondary to infection. Appreciate therapy recommendations. Chronic medical conditions: ? Type 2 diabetes mellitus: Hold home linagliptin. Treat with sliding scale insulin with meals while inpatient. ? Hypertension, hyperlipidemia, history of CVA with residual left-sided weakness: Stable. Continue home aspirin and statin. Holding home amlodipine. ? Hypothyroidism: Continue home Synthroid. ? History of rectal cancer s/p chemotherapy and radiation therapy and resection of left colon and entire rectum with permanent colostomy placement in 2020: Continue outpatient follow-up with oncology. ? History of AAA without rupture: Outpatient follow-up. ? GERD: Continue home PPI. DVT prophylaxis: Not indicated, on Eliquis CODE STATUS: Full code, verified Expected disposition: TBD Total clinical time spent by myself addressing the patient's medical issues, reviewing all the data, and collaborating with patient's care team: 75 minutes. Charges/Coding Visit Charges Inpatient E&M: 64624 Init Hosp L3 07/01/24 1441 <Electronically signed by Kulwinder De La O DO> Cosigner Signature (if applicable): CC: Jenae Santamaria MD; Dr. Kulwinder De La O DO~ Signed [facility] Work Phone: [phone] Discharge summary [facility] Medical Records Department [address] [place] [address] Emergency Department Summary 07/01/24 MR#: [id number] Acct: [id number] Name: EMELIA JOHNSON Rep #:[id number] : 1950 74 From: Toni King DO PCP: Jenae Santamaria MD Status:ADM IN Location: [address] History of Present Illness Chief Complaint: Complaint Detail of Chief Complaint: Concern for urinary tract infection Informant: patient Narrative Narrative: Patient presents with concern for urinary tract infection. Complains of dysuriasince yesterday. Hadnausea and vomited twice. He has history of chronic indwelling Maddox catheter that he states he haschanged usually about every 10 days. Patient also has history of colon cancer and has a colostomy. Denies fever chills or sweats. Denies significant abdominal pain. [facility] Medical History Wears glasses Low iron Stroke/cerebrovascular accident Former smoker Colostomy in place Family history of abdominal aortic aneurysm repair DVT (deep venous thrombosis) Enteritis Cholelithiasis Acidosis, lactic Encephalopathy due to infection Acute hypoxemic respiratory failure Complicated urinary tract infection Severe sepsis with acute organ dysfunction Aspiration into respiratory tract FIOR (acute kidney injury) Colon cancer Home Medications ?Medication ?Instructions ?Recorded ?Last Taken ?Type finasteride 5 mg tablet 5 mg PO DAILY prostate 06/2106/30/24 History ferrous sulfate 325 mg (65 mg 325 mg PO BIDCM iron #1 TAB 06/26/23 01/09/24 Rx iron) tablet levothyroxine 100 mcg tablet 100 mcg PO DAILY@0600 #30 tabs 01/15/24 06/30/24 Rx pantoprazole 40 mg tablet,delayed 40 mg PO BID #60 tab s 01/15/24 06/30/24 Rx release albuterol sulfate 90 mcg/actuation 1 - 2 puff inhalati on 4X/DAY PRN 02/22/24 Unknown History aerosol inhaler wheezing apixaban 5 mg tablet (Eliquis) 5 mg PO BID 02/22/24 History amlodipine 5 mg tablet 5 mg PO DAILY 07/01/2406/30 History aspirin 81 mg tablet,delayed 81 mg PO DAILY 07/01/24 0 06/30/24 History release ergocalciferol (vitamin D2) 1,250 1,250 mcg PO MO 08/2006/26/24 History mcg (50,000 unit) capsule fluticasone fur. 100 mcg-umeclid 1 ea inhalation DAILY 07/01/24 06/30/24 History 62.5 mcg-vilant 25 mcg inhalat.powder (Trelegy Ellipta) icosapent ethyl 1 gram capsule 2 g PO BID 07/01/2407/21 History levothyroxine 150 mcg tablet 150 mcg PO DAILY 07/01/24 06/30/24 History linagliptin 5 mg tablet (Tradjenta) 5 mg PO DAILY 08/2006/30/24 History rosuvastatin 20 mg tablet 20 mg PO QHS 07/01/24 History Allergy/AdvReac Type Severity Reaction Status Date / Time No Known Allergies Allergy Verified 02/23/24 11:43 Surgical History Hx of abdominal surgery Hx of endarterectomy (~2020) Social History Smoking Status: Former smoker Tobacco: How many years used: 50 ROS ROS ED Review of Systems ROS Unobtainable: other Constitutional Constitutional ED: Reports lethargy; Denies chills, fever(s), sweats or weight loss Eyes Eyes: Denies blurry vision, change in vision or diplopia ENT ENT ED: Denies rhinorrhea or sore throat Cardiovascular Cardiovascular: Denies chest pain, orthopnea or racing heartbeat Respiratory/Chest Respiratory/Chest: Denies cough, dyspnea, dyspnea on exertion, orthopnea or sputum Gastrointestinal Gastrointestinal: Reports nausea and vomiting; Denies abdominal pain or diarrhea Genitourinary Genitourinary ED: Reports dysuria; Denies hematuria or urinary frequency Musculoskeletal Musculoskeletal: Denies arthralgias, back pain, myalgias or neck pain Integumentary Denies abscess, Abrasions or rash Neurologic Neurologic: Denies headache(s) or weakness Psychiatric Psychiatric: Denies anxiety, depression or suicidal thoughts Endocrine Endocrinology: Denies polydipsia, polyphagia or polyuria Hematologic/Lymphatic Hematologic/Lymphatic: Denies easy bleeding, easy bruising or lymphadenopathy Allergic/Immunologic Allergic/Immunologic ED: Denies mouth swelling, tongue swelling or urticaria EXAM Physical Exam Const Vital Signs: 07/01/24 09:22 07/01/24 10:25 Temperature 97.9 F 98.6 F Temperature Source Oral Oral Pulse Rate 106 H 107 H Respiratory Rate 18 18 Blood Pressure 150/63 H 132/90 H Blood Pressure Mean 92 104 Pulse Ox 95 95 Oxygen Delivery Method Room Air Room Air Positive well nourished and well developed General Appearance ED: well developed and NAD HEENT Reports TM's clear and moist mucous membranes normocephalic and atraumatic; Negative for trauma or tenderness Tympanic Membrane ED: Yes TM's clear Eyes PERRL and EOMs intact bilaterally General Eye ED: Negative for pale conjunctiva or scleral icterus Neck no lymphadenopathy, supple and no JVD General: Negative for tenderness Chest Wall inspection of chest normal and palpation of chest normal Chest: Negative for tenderness Resp normal respiratory effort and clear to auscultation bilaterally Effort and Inspection: Negative for respiratory distress or pain with movement Auscultation: Negative for rhonchi, wheezes or diminished lung sounds Cardio regular rate, regular rhythm, S1 normal heart sound, S2 normal heart sound and no murmurs Peripheral Pulses: pulses 2+ throughout GI normal to inspection, nondistended, normoactive bowel sounds, soft to palpation,non-tender, non-distended and no masses GI Narrative: Patient with colostomy left lower quadrant. Seems to have brown stool in the bag without evidence of gross blood. No significant tenderness to the abdomen. Narrative: Chronic indwelling Maddox catheter. There is a foul odor to the urine Back/Spine no CVA tenderness and no thoracic nor lumbar tenderness Extremity normal to inspection General Extremety ED: Negative for edema General Extremity: Negative for edema Neuro oriented x3, CN's II-XII intact bilaterally, no sensory deficits noted and gait normal Sensorium / Orientation: awake, alert, oriented to person, oriented to place andoriented to time Motor Exam: strength 5/5 throughout and strength abnormal Psych mental status grossly normal Skin no rashes or lesions noted and no wounds MDM MDM MDM Narrative Medical decision making narrative: Presents to the emergency department with concern for UTI. He has had some dysuria since yesterday.He vomited twice today. He has had some chills. Denies fever. Denies back pain. Denies significant abdominal pain. IV line established. CBC with differential obtained showed a white count 17,000 withhemoglobin 15.5 and platelet count of 107. Chemistries showed a potassium that was elevated at 5.5 however there was some hemolysis. BUN 19 and creatinine 2.13. Glucose 184. Lactate elevated 2.4. Urinalysis positive for 500 leukocyte esterase and 10-25 WBCs with no bacteria seen. There was a foul odor to the urine. I did start patient on Rocephin IV. Urine culture sent as well as blood cultures. He was given Zofran for nausea. Will discuss with hospitalist evaluate for admission for UTI. Patient's had prior episodes of sepsis and I am concerned this may continue to worsen as far as symptoms. Lab Data Attestation: I reviewed the patient's lab results. Labs: Laboratory Results - last 24 hr 07/01/24 07/01/24 09:42 10:04 WBC 17.0 H RBC 5.20 Hgb 15.5 Hct 47.5 MCV 91.3 MCH 29.8 MCHC 32.6 RDW Std Deviation 50.0 H RDW Coeff of Yanira 14.9 H Plt Count 107 L MPV 13.1 H Immature Gran % (Auto) 0.400 Neut % (Auto) 87.3 H Lymph % (Auto) 6.5 L [place] % (Auto) 5.0 Eos % (Auto) 0.4 Baso % (Auto) 0.4 Absolute Neuts (auto) 14.9 H Absolute Lymphs (auto) 1.10 Nucleated RBC % 0 Sodium 136 Potassium 5.5 H Chloride 99 Carbon Dioxide 22.9 Anion Gap 14 BUN 19 Creatinine 2.13 H Estim Creat Clear Calc 33.28 L Est GFR (MDRD) Non-Af 32 L BUN/Creatinine Ratio 9.1 L Glucose 184 H Lactic Acid 2.4 H* Calcium 9.5 Urine Color Parag Urine Clarity Cloudy Urine pH 6.0 Ur Specific [place] 1.010 Urine Protein 100 H Urine Glucose (UA) Normal Urine Ketones 5 H Urine Occult Blood 250 H Urine Nitrite Positive H Urine Bilirubin 6 H Urine Urobilinogen 12 H Ur Leukocyte Esterase 500 H Urine RBC > 100 SEEN Urine WBC 10-25 SEEN Ur Squamous Epith Cells 0 SEEN Urine Bacteria 0 SEEN Urine Mucus 0 SEEN Discharge Plan Dx/Rx/DC Orders Clinical Impression: Acute UTI, Acidosis, lactic, Vomiting, Leukocytosis Disposition Disposition: Acute Care Hospital [facility] What to do if you have Problems For any increased pain, shortness of breath, bleeding, nausea or vomiting, chestpain, or any unexpected problems, contact your Primary Care Provider. Call [facility] ([phone]) or report tothe closest Emergency Room. Call 911 if necessary. 07/01/24 1502 Cosigner Signature (if applicable): CC: Jenae Santamaria MD ~ Signed [facility]04-05-2025 History and physical note [facility] [facility] [address] [place] [id number] H&P Exam - Hospitalist 07/01/24 1110 MR#: [id number] Acct: [id number] Name: EMELIA JOHNSON Rep #:[id number] : 1950 74 From: Kulwinder Lloyd deborah HERNANDEZ PCP: Jenae Santamaria MD Status:ADM IN Location: [place] [address] HPI - General General Date of Admission: 07/01/24 Date of Service: 07/01/24 Chief Complaint: UTI symptoms with nausea and vomiting HPI Narrative EMELIA JOHNSON, is a 74 M who presented to [facility] ED on 07/01/24with UTI symptoms and nausea with vomiting. Patient has history of chronic indwelling Maddox catheter that he usually has changed about every 10 days. He began to have dysuria yesterday and then developed nausea with 2 vomiting episodes this morning. Patient lives at home with his son and daughter. Uses awalker at baseline but states he has been more fatigued over the past several days and not been moving around much. Medical history is otherwise significant for rectal cancer s/p chemoradiation therapy with colonicresection and permanent colostomy, PAD s/p aortobifemoral bypass, stroke with residual left-sided we akness and left lower extremity DVT. In the ED he was tachycardic to the low 110s but otherwise hemodynamically stable on room air and afebrile. Labs notable for WBC count 17, lactate 2.4. UA showed positive nitrites, 500 leukocyte esterase, 0 bacteria. Chest x-ray unremarkable. COVID/recess IV negative. CT abdomen pelvis showed subtle groundglass opacity in the right lower lobe that may represent early pneumonia, chronic hydronephrosis and hydroureter of right kidney, cholelithiasis without evidence of cholecystitis. He was given IV fluids and started on antibiotics, and hospitalist was contactedfor admission. I saw the patient at bedside in the ED. Patient was somewhat unkempt appearing and mildly fatigued appearing but otherwise sitting back comfortably in bed, conversing normally and in no acute distress. He did report mild nausea currently but otherwise denied any pain or discomfort. Denies any fevers or chills. Denies any issues with his catheter at this time. Notably did have a very swollen left lower extremity on exam but stated this is chronic for him andhe denies any new pain or discomfort in that area. No other acute concerns at this time. [facility] Medical History Wears glasses Low iron Stroke/cerebrovascular accident Former smoker Colostomy in place Family history of abdominal aortic aneurysm repair DVT (deep venous thrombosis) Enteritis Cholelithiasis Acidosis, lactic Encephalopathy due to infection Acute hypoxemic respiratory failure Complicated urinary tract infection Severe sepsis with acute organ dysfunction Aspiration into respiratory tract FIOR (acute kidney injury) Colon cancer Home Medications ?Medication ?Instructions ?Recorded ?Last Taken ?Type finasteride 5 mg tablet 5 mg PO DAILY prostate 06/2106/30/24 History ferrous sulfate 325 mg (65 mg 325 mg PO BIDCM iron #1 TAB 06/26/23 01/09/24 Rx iron) tablet levothyroxine 100 mcg tablet 100 mcg PO DAILY@0600 #30 tabs 01/15/24 06/30/24 Rx pantoprazole 40 mg tablet,delayed 40 mg PO BID #60 tab s 01/15/24 06/30/24 Rx release albuterol sulfate 90 mcg/actuation 1 - 2 puff inhalati on 4X/DAY PRN 02/22/24 Unknown History aerosol inhaler wheezing apixaban 5 mg tablet (Eliquis) 5 mg PO BID 02/22/24 History amlodipine 5 mg tablet 5 mg PO DAILY 07/01/2406/30 History aspirin 81 mg tablet,delayed 81 mg PO DAILY 07/01/24 0 06/30/24 History release ergocalciferol (vitamin D2) 1,250 1,250 mcg PO MO 08/2006/26/24 History mcg (50,000 unit) capsule fluticasone fur. 100 mcg-umeclid 1 ea inhalation DAILY 07/01/24 06/30/24 History 62.5 mcg-vilant 25 mcg inhalat.powder (Trelegy Ellipta) icosapent ethyl 1 gram capsule 2 g PO BID 07/01/2407/21 History levothyroxine 150 mcg tablet 150 mcg PO DAILY 07/01/24 06/30/24 History linagliptin 5 mg tablet (Tradjenta) 5 mg PO DAILY 08/2006/30/24 History rosuvastatin 20 mg tablet 20 mg PO QHS 07/01/24 History Allergy/AdvReac Type Severity Reaction Status Date / Time No Known Allergies Allergy Verified 07/01/24 13:29 Surgical History Hx of abdominal surgery Hx of endarterectomy (~2020) Social History Smoking Status: Former smoker Tobacco: How many years used: 50 ROS Constitutional Constitutional: Reports fatigue and weakness; Denies chills or fever(s) Eyes Eyes: Denies change in vision Cardiovascular Cardiovascular: Denies chest pain Respiratory/Chest Respiratory/Chest: Denies cough, productive cough or shortness of breath at rest Gastrointestinal Gastrointestinal: Reports nausea and vomiting; Denies abdominal pain, constipation or diarrhea Genitourinary Genitourinary: Reports dysuria Musculoskeletal Musculoskeletal: Denies arthralgias or myalgias Vital Signs Vital Signs Vital Signs: 07/01/24 09:22 07/01/24 10:25 Temperature 97.9 F 98.6 F Temperature Source Oral Oral Pulse Rate 106 H 107 H Respiratory Rate 18 18 Blood Pressure 150/63 H 132/90 H Blood Pressure Mean 92 104 Pulse Ox 95 95 Oxygen Delivery Method Room Air Room Air Weight Weight: 87.3 kg Body Mass Index (BMI) 28.4 Physical Exam Const alert, oriented x3 and no apparent distress Constitutional Narrative: Elderly male, somewhat unkempt appearing and mildly fatigued appearing, otherwise sitting back comfortably in bed, conversing normally, in no acute distress. General Appearance: cooperative and comfortable HEENT normocephalic, head/scalp atraumatic, hearing grossly normal bilaterally and nasal mucous membranesand turbinates normal HEENT Narrative: Dry mucous membranes. Eyes PERRL, EOMs intact bilaterally and conjunctivae normal Neck full ROM Chest inspection of chest normal Resp normal respiratory effort and no use of accessory muscles Cardio no murmurs and peripheral pulses 2+ throughout Cardio Narrative: Tachycardic, regular rhythm. GI normal to inspection, nondistended, normoactive bowel sounds, soft to palpation,non-tender and non-distended GI Narrative: Colostomy bag noted with normal-appearing stool contents. Back/Spine normal ROM Extremity Extremity Narrative: Severely swollen left lower extremity from waist down with mild erythema and +1- 2 pitting edema noted Skin no rashes or lesions noted Psych mental status grossly normal Results Lab / Micro Data 07/01/24 09:42 07/01/24 09:42 Labs: Laboratory Results - last 24 hr 07/01/24 09:42: WBC 17.0 H, RBC 5.20, Hgb 15.5, Hct 47.5, MCV 91.3, MCH 29.8, MCHC 32.6, RDW Std Deviation 50.0 H, RDW Coeff of Yanira 14.9 H, Plt Count 107 L, MPV 13.1 H, Immature Gran % (Auto) 0.400, Neut % (Auto) 87.3 H, Lymph % (Auto) 6.5 L, [place] % (Auto) 5.0, Eos % (Auto) 0.4, Baso % (Auto) 0.4, Absolute Neuts (auto) 14.9 H, Absolute Lymphs (auto) 1.10, Nucleated RBC % 0, Sodium 136, Potassium 5.5 H, Chloride 99, Carbon Dioxide 22.9, Anion Gap 14, BUN 19, Creatinine 2.13 H, Estim Creat Clear Calc 33.28 L, Est GFR (MDRD) Non-Af 32 L, BUN/Creatinine Ratio 9.1 L, Glucose 184 H, Lactic Acid 2.4H*, Calcium 9.5 07/01/24 10:04: Urine Color Parag, Urine Clarity Cloudy, Urine pH 6.0, Ur Specific [place] 1.010, Urine Protein 100 H, Urine Glucose (UA) Normal, Urine Ketones 5 H, Urine Occult Blood 250 H, Urine Nitrite Positive H, Urine Bilirubin6 H, Urine Urobilinogen 12 H, Ur Leukocyte Esterase 500 H, Urine RBC > 100 SEEN,Urine WBC 10-25 SEEN, Ur Squamous Epith Cells 0 SEEN, Urine Bacteria 0 SEEN, Urine Mucus 0 SEEN Assessment & Plan Assessment/Plan (1) Acidosis, lactic: (2) Acute UTI: PLAN: Plan Patient is a 74-year-old male who presented to [facility] ED on 07/01/2024 with UTI symptoms and nausea with vomiting. 1. Concern for sepsis secondary to complicated UTI in setting of chronic urinary retention with chronic indwelling Maddox catheter ? Admit under inpatient status to PCU. Met SIRS criteria on admit with leukocytosis and tachycardiain setting of suspected UTI. Lactic acid 2.4. UA with 500 leukocyte esterase and positive nitrites,though with 0 bacteria. Chest x-ray unremarkable. CT abdomen pelvis without contrast showed hydronephrosis and hydroureter to the right kidney suspected secondary to chronic reflux; also showed subtle groundglass opacity in right lower lobe concerning for early pneumonia. Most recent urine culture data growing MRSA buthas grown Proteus in the past as well. Will treat with IV vancomycin and Zosyn for now. Follow-up urine culture and blood cultures. Will treat with 2 L of IVfluids total for now and monitor closely. Maddox catheter exchanged in the ED. 2. Severe left lower extremity swelling with concern for common femoral artery dissection, history of PAD with bilateral aortofemoral bypass, history of LLE DVT ? Severe left lower extremity swelling noted on exam on admit. Has history of bilateral aortofemoral bypass in 2014 as well as extensive LLE DVT in 2023. Is on Eliquis and reports compliance. Venous duplex ultrasound ordered and preliminary read was concerning for possible common femoral artery dissection, will follow-up formal vascular surgery read. Okay for conservative management for now. 3. Elevated creatinine in setting of CKD stage IIIb ? Creatinine 2.13 on admit, baseline around 1.9. Suspected prerenal in setting of concern for sepsis from UTI as noted above. IV fluid resuscitation given as above on admit. Follow-up a.m. BMP and monitor urine output. 4. Mild acute on chronic debility ? PT/OT/case management consulted. Lives with son and daughter, uses walker at baseline. Reports worsening weakness over the past several days likely secondary to infection. Appreciate therapy recommendations. Chronic medical conditions: ? Type 2 diabetes mellitus: Hold home linagliptin. Treat with sliding scale insulin with meals while inpatient. ? Hypertension, hyperlipidemia, history of CVA with residual left-sided weakness: Stable. Continue home aspirin and statin. Holding home amlodipine. ? Hypothyroidism: Continue home Synthroid. ? History of rectal cancer s/p chemotherapy and radiation therapy and resection of left colon and entire rectum with permanent colostomy placement in 2020: Continue outpatient follow-up with oncology. ? History of AAA without rupture: Outpatient follow-up. ? GERD: Continue home PPI. DVT prophylaxis: Not indicated, on Eliquis CODE STATUS: Full code, verified Expected disposition: TBD Total clinical time spent by myself addressing the patient's medical issues, reviewing all the data, and collaborating with patient's care team: 75 minutes. Charges/Coding Visit Charges Inpatient E&M: 35749 Init Hosp L3 07/01/24 1441 Cosigner Signature (if applicable): CC: Jenae Santamaria MD; Dr. Kulwinder De La O, DO~ Signed [facility]04-05-2025 Evaluation note* Diagnosis Onset Date Resolution Status Admit Date Acidosis, lactic acute June 11:19am Acute UTI resolved July 01 11:19am Femoral arteriovenous fistul a, left acute July 01, 2024 11:19am Leukocytosis acute July 01, 2 025 11:19am Peripheral arterial disease with history of revascularization acute Apr 2024 11:19am Sepsis acute July 01 11:19am Vomiting acute July 01 11:19am Encephalopathy acute resolved l 2024 11:19am [facility] Work Phone: 1(605) 974-892604-05-2025 Evaluation note* Diagnosis Onset Date Resolution Status Admit Date Femoral arteriovenous fistul a, left acute July 01, 2024 11:19am Acidosis, lactic resolved June 11:19am Acute UTI resolved July 01 11:19am Encephalopathy acute resolved 2024 11:19am Leukocytosis resolved July 01, 2 025 11:19am Sepsis resolved July 01 11:19am Vomiting resolved July 01 11:19am Peripheral arterial disease with history of revascularization inactive Jun 11:19am Acute GI bleeding acute June 272024 8:23pm Anemia acute July 13 8:23pm History of colon cancer acute A pril 2024 8:23pm [facility] Work Phone: 1(757) 505-339104-05-2025 Evaluation note* Diagnosis Onset Date Resolution Status Admit Date Femoral arteriovenous fistul a, left acute July 01, 2024 11:19am Acidosis, lactic resolved June 11:19am Acute UTI resolved July 01 11:19am Encephalopathy acute resolved 2024 11:19am Leukocytosis resolved July 01, 2 025 11:19am Sepsis resolved July 01 11:19am Vomiting resolved July 01 11:19am Peripheral arterial disease with history of revascularization inactive Jun 11:19am Acute GI bleeding acute June 272024 8:23pm Anemia acute July 13 8:23pm Femoral arteriovenous fistul a, left acute July 13, 2024 8:23pm History of colon cancer acute A pril 2024 8:23pm Peripheral arterial disease with history of revascularization inactive Jun 8:23pm [facility] Work Phone: 1(134) 850-658204-05-2025 Evaluation note* Diagnosis Onset Date Resolution Status Admit Date Femoral arteriovenous fistul a, left chronic July 01, 2024 11:19am Acidosis, lactic resolved June 11:19am Acute UTI resolved July 01 11:19am Encephalopathy acute resolved Apri l 2024 11:19am Leukocytosis resolved July 01, 2 025 11:19am Sepsis resolved July 01 11:19am Vomiting resolved July 01 11:19am Peripheral arterial disease with history of revascularization inactive Apr il 2024 11:19am Acute GI bleeding acute June 272024 8:23pm Anemia acute July 13 8:23pm History of colon cancer acute A pril 2024 8:23pm Femoral arteriovenous fistul a, left chronic July 13, 2024 8:23pm Peripheral arterial disease with history of revascularization inactive Apr il 2024 8:23pm Femoral arteriovenous fistul a, left chronic August 14, 2024 2 :58pm [facility] Work Phone: 1(806) 291-640204-05-2025 Radiology Diagnostic study note [facility] Imaging Services [address], [place] [id number] Abdomen/Pelvis without Cont MR#: [id number] Acct: [id number] Name: EMELIA JOHNSON Rep #: [id number] : 1950 M 74 From: Pet er Peer DO PCP: Jenae Santamaria MD Status: ADM IN Study:Abdomen/Pelvis without Cont Date of Exa m: 07/01/24 Exam# [id number] Ordering Dr: Kulwinder Patel DO PROCEDURE: ABDOMEN/PELVIS WITHOUT CONT 07/01/2024 REASON FOR EXAM: EVAL FOR URINE RETENTION, INTRAABDOMINAL INFXN TECHNIQUE: Abdomen and pelvis CT without intravenous contrast. Noncontrast technique limits evaluation of the abdominal and pelvic viscera. Coronal and Sagittal reconstruction series were provided. One or more dose reduction techniques were used (e.g., Automated exposure control, adjustment of the mA and/or kV according to patient size, use of iterative reconstruction technique). PATIENT PREPARATION: Per protocol ORAL CONTRAST TYPE: None. AMOUNT: mL Radiation dose-CTDI: 38.4.. DLP: 970.58 FINDINGS: Lung bases: Hazy ground-glass opacities in the lower lobe bases are incompletelyevaluated Liver: Unremarkable Gallbladder: Numerous small gallstones are present. Spleen: Small but otherwise unremarkable Pancreas: Normal Adrenals: Normal Kidneys: Left renal atrophy. Right renal hydronephrosis and ureter. Suspect ileal conduit Maddox catheter is present in the urinary bladder. Bladder: Maddox catheter present Reproductive Organs: Bowel: Diffuse increased diameter of small bowel and air fluid levels suggest ileus or possibly obstruction, but left lower quadrant ileostomy is present. Appendix: Body wall: Left lower quadrant ostomy is felt to represent ileal conduit. Inflammation, fat stranding and fluid present in the subcutaneous tissues of the left lower abdominal quadrant. Peritoneum / Retroperitoneum: Trace free fluid in the pelvis. No free fluid in Morison's pouch. Bones: No aggressive bone lesions. Anterolisthesis, grade 1, of L5 on S1. 1 CT/Abdomen/Pelvis without Cont IMPRESSION: Subtle ground-glass opacity in the right lower lobe may represent an early pneumonia. Hydronephrosis and hydroureter of the right kidney suspect chronic reflux from ileo pouch diversion. Correlate with surgical history. Air and fluid in mildly distended small bowel loops of uncertain etiology Cholelithiasis, but no evidence for cholecystitis. Reading Location: [facility] CC: Jenae Santamaria MD; Dr. Kulwinder De La O DO ~ Payroll Analyst: Signed [facility]04-05-2025 Radiology Diagnostic study note [facility] Imaging Services [address] [place] [address] Chest 1 View (Portable) MR#: [id number] Acct: [id number] Name: EMELIA JOHNSON Rep #: [id number] : 1950 M 74 From: Pet er Ranjit HERNANDEZ PCP: Jenae Santamaria MD Status: REG ER Study:Chest 1 View (Portable) Date of Exam: 07/01/24 Exam# [id number] Ordering Dr: Kulwinder Patel DO PROCEDURE: CHEST 1 VIEW (PORTABLE) 07/01/2024 REASON FOR EXAM: EVAL FOR PNEUMONIA TECHNIQUE: Frontal view of the chest. FINDINGS: Hardware: Heart: Normal size. Lungs: Grossly clear. Prominence of interstitium likely due to a combination ofbody habitus and AP technique. Bones: Unremarkable. Other: RAD/Chest 1 View (Portable) IMPRESSION: No definite radiographic evidence of an acute cardiopulmonary process [facility] CC: Jenae Santamaria MD; Dr. Kulwinder De La O DO ~ Payroll Analyst: Signed [facility]02-21-2025 NoteHNO ID: [id number] Author: YUDY BENOIT, ? Service: ? Author [...] (I73.9) PAD (peripheral artery disease) ([facility]) Plan: Patient was seen and evaluated. Nails 1-5 bilateral were debrided in length and thickness. Patient was instructed on the continued importance of diabetic foot care along with proper diet and keeping their blood sugar under control to prevent complications. Stressed the importance of avoiding barefoot walking, wearing good shoes and inspection of feet. Patient is to RTC in 3-4 months. Yudy Benoit [facility]02-21-2025 NoteHNO ID: [id number] Author: CAROLYNE MENON LPN Service: ? Author Type: LICENSED NURSE Type: Progress Notes Filed: 05/20/2024 08:13 Note Text: AMB ROOMING INTAKE FLOWSHEET DATA Patient presents with: Left Foot - Established Patient, Diabetic Foot Care Right Foot - Established Patient, Diabetic Foot Care Carolyne Menon [facility]02-21-2025 History of Present illness Narrative* Yudy Benoit - 05/19/2024 3:46 PM EST Last saw pcp: 04/07/24 Subjective: Patient presents to clinic c/o painful toenails. They state that the nails are especially painful with shoe gear and pressure. Patient states that nails b/l are painful. Patient admits tobeing diabetic. Currently being worked up for left lower extremity blood clot. On eliquis. No otherpedal complaints at this time. Patient states no [...] toes when tested with the 5.07 SWM bilateral.Vibratory sensation is absent at the hallux IPJ [...] (I73.9) PAD (peripheral artery disease) ([facility]) Plan: Patient was seen and evaluated. Nails 1-5 bilateral were debrided in length and thickness. Patient was instructed on the continued importance of diabetic foot care along with proper diet andkeeping their blood sugar under control to prevent complications. Stressed the importance of avoiding barefoot walking, wearing good shoes and inspection of feet. Patient is to RTC in 3-4 months. Yudy Benoit DPM * Carolyne Menon LPN - 05/19/2024 3:46 PM EST AMB ROOMING INTAKE FLOWSHEET DATA Patient presents with: Left Foot - Established Patient, Diabetic Foot Care Right Foot - Established Patient, Diabetic Foot Care Carolyne Menon LPN * Yudy Benoit - 05/19/2024 3:43 PM EST See above documented [facility]02-[facility]-2025 NoteHNO ID: [id number] Author: YUDY BENOIT, ? Service: ? Author Type: Physician Type: Progress Notes Filed: 05/20/2024 08:13 Note Text: [facility] Instructions* Patient Instructions * Yudy Benoit - 05/19/2024 3:43 PM EST Diabetes Foot Care Instructions When you have [...] or sore from your shoes, do not "pop" it. Apply a bandage and wear a differentpair of shoes. Take Care of Your Toenails Cut toenails after bathing, when they are soft. Cut toenails straight across and smooth with a nail file. Avoid cutting into the corners of toes. Do not cut cuticles. If you have neuropathy (or decreased sensation in your feet) a cell maker should always cut your toenails. Be Careful [...] make sure there are no foreign objects orrough areas. Avoid tight socks. Wear natural-fiber socks (cotton, wool, or a cotton-wool blend). Wear special shoes if your health care provider recommends them. Wear shoes/boots that will protect your feet from various weather conditions (cold, moisture, etc.). Make sure your shoes fit properly. If you have neuropathy (nerve damage), you may not notice that your shoes are too tight. Perform the "footwear test" described below. Footwear Test Use this simple [...] Go to your health care provider or cell maker to treat these conditions. documented in [facility]02-[facility]-2025 Telephone encounter Note * Telephone Encounter - Fara Farah MA - 05/15/2024 11:00 AM EST Pharmacy e scripted requesting the following refill Refill(s) Requested: Requested Prescriptions Pending Prescriptions Disp Refills loratadine (CLARITIN) 10 mg tablet [Pharmacy Med Name: LORATADINE 10 MG TABLET] 90 tablet 1 Sig: TAKE 1 TABLET BY MOUTH EVERY DAY ALLERGIES Allergen Reactions Lipitor [Atorvastat* Other: See Comments body aches (home) [phone] (cell) Last Office Visit Date: 04/07/2024 Last Distance Health Visit: Visit date not found Future Appointment: 07/07/2024 The patients preferred pharmacy has been captured for this encounter? yes Request is for script(s) to be escript to pharmacy. Fara Farah MA [facility]02-17-2025 Miscellaneous Notes* Telephone Encounter - Fara Farah MA - 05/15/2024 11:00 AM EST Pharmacy e scripted requesting the following refill Refill(s) Requested: Requested Prescriptions Pending Prescriptions Disp Refills loratadine (CLARITIN) 10 mg tablet [Pharmacy Med Name: LORATADINE 10 MG TABLET] 90 tablet 1 Sig: TAKE 1 TABLET BY MOUTH EVERY DAY ALLERGIES Allergen Reactions Lipitor [Atorvastat* Other: See Comments body aches (home) [phone] (cell) Last Office Visit Date: 04/07/2024 Last Distance Health Visit: Visit date not found Future Appointment: 07/07/2024 The patients preferred pharmacy has been captured for this encounter? yes Request is for script(s) to be escript to pharmacy. Fara Farah MA documented in this encounterUc [facility] Center01-29-2025 Telephone encounter Note * Telephone Encounter - Jenae Santamaria MD - 04/26/2024 10:41 AM EST Please call patient to re enforce that [...] it will be harder to treat infections. Jenae Santamaria MD [facility]01-29-2025 Miscellaneous Notes* Telephone Encounter - Jenae Santamaria MD - 04/26/2024 10:41 AM EST Please call patient to re enforce that [...] it will be harder to treat infections. Jenae Santamaria MD * Telephone Encounter - Judie Garrido MA - 04/25/2024 2:47 PM EST Call from Marcy [phone], nurse from [facility], called to report pt has not been [...] noted he is on antibiotic for UTI documented in this encounterUc [facility] Center01-28-2025 Telephone encounter Note * Telephone Encounter - Judie Garrido MA - 04/25/2024 2:47 PM EST Call from Marcy [phone], nurse from [facility], called to report pt has not been [...] noted he is on antibiotic for UTI [facility]01-[facility] Telephone encounter Note* Telephone Encounter - Krysta Aldana RN - 04/19/2024 2:37 PM EST Diabetes education referral received. Spoke with daughter of patient. Prefers [place] location on a Wednesday. Offered Wednesday05/10/24 RN appt, preference for Wednesday. Patient scheduled for 05/26/24 at [address] [facility] Work Phone: [phone] Miscellaneous Notes* Telephone Encounter - Krysta Aldana RN - 04/19/2024 2:37 PM EST Diabetes education referral received. Spoke with daughter of patient. Prefers [place] location on a Wednesday. Offered Wednesday05/10/24 RN appt, preference for Wednesday. Patient scheduled for 05/26/24 at 1 pm with BENJI MANCIA. documented in this encounterUc Medical Center01-22-2025 Telephone encounter Note * Telephone Encounter - Judie Garrido MA - 04/19/2024 9:18 AM EST Left vm for shellie on preferred number listed in chart [facility]01-22-2025 Miscellaneous Notes* Telephone Encounter - Judie Garrido MA - 04/19/2024 9:18 AM EST Left vm for shellie on preferred number listed in chart * Telephone Encounter - Jenae Santamaria MD - 04/19/2024 8:02 AM EST Please call to update that urine culture positive and will send antibiotics based on culture and sensitivity results. Jenae Santamaria MD documented [facility] encounter[facility] Telephone encounter Note * Telephone Encounter - Jenae Santamaria MD - 04/19/2024 8:02 AM EST Please call to update that urine culture positive and will send antibiotics based on culture and sensitivity results. Jenae Santamaria MD [facility]01-21-2025 Telephone encounter Note* Telephone Encounter - Judie Garrido MA - 04/18/2024 12:26 PM EST Message forwarded to pt [facility]01-21-2025 Telephone encounter Note* Telephone Encounter - Judie Garrido MA - 04/18/2024 12:26 PM EST ----- Message from Jenae Santamaria MD sent [...] Will send you pills for blood sugar. Bloodcounts look fine. Jenae Santamaria MD [facility]01-21-2025 Miscellaneous Notes* Telephone Encounter - Judie Garrido MA - 04/18/2024 12:26 PM EST Message forwarded to pt * Telephone Encounter - Judie Garrido MA - 04/18/2024 12:26 PM EST ----- Message from Jenae Santamaria MD sent [...] Will send you pills for blood sugar. Bloodcounts look fine. Jenae Santamaria MD documented in this encounterU[facility] Center01-[facility]25 Telephone encounter Note * Telephone Encounter - Judie Garrido MA - 04/18/2024 12:25 PM EST Message forwarded to pt [facility]01-21-2025 Telephone encounter Note* Telephone Encounter - Judie Garrido MA - 04/18/2024 12:25 PM EST ----- Message from Jenae Santamaria MD sent at 04/17/2024 12:40 PM EST ----- Please call to update that vitamin D is low and will send 12 weeks worth of vitamin D to take weekly Jenae Santamaria MD [facility]01-21-2025 Miscellaneous Notes* Telephone Encounter - Judie Garrido MA - 04/18/2024 12:25 PM EST Message forwarded to pt * Telephone Encounter - Judie Garrido MA - 04/18/2024 12:25 PM EST ----- Message from Jenae Santamaria MD sent at 04/17/2024 12:40 PM EST ----- Please call to update that vitamin D is low and will send 12 weeks worth of vitamin D to take weekly Jenae Santamaria MD documented in this encounterU[facility]01-[facility]25 Telephone encounter Note * Telephone Encounter - Judie Garrido MA - 2024 3:12 PM EST [facility] nurse advised [facility]01-14-2025 Miscellaneous Notes* Telephone Encounter - Judie Garrido MA - 2024 3:12 PM EST [facility] nurse advised * Addendum Note - Jenae Santamaria MD - 2024 12:58 PM ESTAddended by: JENAE SANTAMARIA on: 2024 12:58 PM Modules accepted: Orders * Telephone Encounter - Jenae Santamaria MD - 2024 12:57 PM EST Yes, please get urinalysis with culture and get sample via straight cath or with maddox catheter change Jenae Santamaria MD * Telephone Encounter - Judie Garrido MA - 2024 12:23 PM EST [facility] [phone] nurse called to report family states pt's having some dark urine and a change in mental status, asking for an order for a urine and a verbal ok for pt Please advise documented in this encounterUc [facility] Center01-14-2025 Note* Addendum Note - Jenae Santamaria MD - 2024 12:58 PM ESTAddended by: JENAE SANTAMARIA on: 2024 12:58 PM Modules accepted: Orders [facility]01-14-2025 Telephone encounter Note* Telephone Encounter - Jenae Santamaria MD - 2024 12:57 PM EST Yes, please get urinalysis with culture and get sample via straight cath or with maddox catheter change Jenae Santamaria MD [facility]01-14-2025 Telephone encounter Note* Telephone Encounter - uJdie Garrido MA - 2024 12:23 PM EST [facility] [phone] nurse called to report family states pt's having some dark urine and a change in mental status, asking for an order for a urine and a verbal ok for pt Please advise [facility]01-13-2025 Telephone encounter Note* Telephone Encounter - Jese Cerda - 04/10/2024 4:31 PM EST Spoke with patients daughter, she declined to schedule at this time. Stated they would have to go over schedules and trying to get everything done in [place] or as close to home as possible Needs to schedule testing with CS then schedule with any vascular New Patient Referral from eJnae Santamaria [phone] for AAA without Rupture, Hx of Aorta-Femoral Bypass, PAD with US ARTERIAL PVR [facility]01-13-2025 Miscellaneous Notes* Telephone Encounter - Jese Cerda - 04/10/2024 4:31 PM EST Spoke with patients daughter, she declined to schedule at this time. Stated they would have to go over schedules and trying to get everything done in [place] or as close to home as possible Needs to schedule testing with CS then schedule with any vascular New Patient Referral from Jenae Santamaria [phone] for AAA without Rupture, Hx of Aorta-Femoral Bypass, PAD with US ARTERIAL PVR documented in this encounterUc [facility] Center01-10-2025 Telephone encounter Note * Telephone Encounter - Migdalia López - 04/07/2024 10:38 AM EST Referral in portal, confirmation # [id number] Migdalia López April 07, 2024 [facility]01-10-2025 Miscellaneous Notes* Telephone Encounter - Migdalia López - 04/07/2024 10:38 AM EST Referral in portal, confirmation # [id number] Migdalia López April 07, 2024 documented in this encounterUc Medical Center01-10-2025 Instructions* Patient Instructions* Jenae Santamaria MD - 04/07/2024 9:56 AM EST - cancer doctor, stomach doctor and urologist will need to schedule appointments for documented in this encounterUc Medical Center01-10-2025 NoteHNO ID: [id number] Author: JENAE SANTAMARIA MD Service: ? Author Type: Physician Type: Progress Notes Filed: 04/07/2024 18:05 Note Text: [facility] [address] [place] [address] Date of Evaluation: 04/07/2024 Patient Name: Emelia Johnson : 1950 Chief Complaint: Patient presents with: 4 month follow up Subjective HPI Mr. Johnson is a 73 year old male who presents for follow up visit. Patient presents with son. Patient was admitted at [facility] in December for acute encephalopathy due [...] rupture Aneurysm - Abdominal Aorta Atherosclerosis of twenty-nine palms arteries of the extremities with intermittent claudication [...] Retention of urine Stroke (cerebrum) ([facility]) Unspecified hemorrhoids without mention of complication Hemorrhoids Unspecified hypothyroidism Hypothyroidism PAST SURGICAL HISTORY Procedure Laterality Date BYP OTH/THN VEIN AORTOBIFEMORAL 2013 aortobifem LAPAROSCOPIC HEMICOLECTOMY colostomy PAST SURGICAL HISTORY OF Right 02/13/2020 [facility] FAMILY HISTORY Problem Relation Age of Onset Diabetes Father Stroke ( age 89) Diabetes Mother Stroke ( age 88) Stroke Mother Diabetes Sister "Brain " ( age 64) Diabetes Brother other (Old [...] NOSTRIL AT BEDTIME loratadine (CLARITIN) 10 mg (more content not included)...[facility]01-10-2025 History of Present illness Narrative* Jenae Santamaria MD - 04/07/2024 9:30 AM EST Images from the original note were not included. [facility] [address] [place] [address] Date of Evaluation: 04/07/2024 Patient Name: Emelia Johnson : 1950 Chief Complaint: Patient presents with: 4 month follow up Subjective HPI Mr. Johnson is a 73 year old male who presents for follow up visit. Patient presents with son. Patient was admitted at [facility] in December for acute encephalopathy due to CAUTI. He was treated for UTI with 5 days of bactrim and for hypothyroidism, found to be supra therapeutic so synthroid decreased form 175 mcg to 100 mcg daily. There were concern concerns for possible sleep apnea and there were apneic episodes seen during admission and hypoxic episodes with saturations in the70's. Patient also was seen by GI with [...] rupture Aneurysm - Abdominal Aorta Atherosclerosis of twenty-nine palms arteries of the extremities with intermittent claudication ASO - Extremities & Claudication CAD (coronary artery disease) Coronary artery disease Cancer (HCC) CKD (chronic kidney disease) stage 3, GFR 30-59 ml/min ([facility]) Colon cancer (HCC) Depression Diabetes ([facility]) Dyslipidemia Former smoker quit 2 weeks ago Hyperlipidemia Hypertension Hypertrophy of prostate with urinary obstruction and other lower urinary tract symptoms (LUTS) Hypertrophy of the prostate with obstruction Obesity Occlusion and stenosis of carotid artery with cerebral infarction ASO - Carotid W/O Infarction Other psoriasis and similar disorders Psoriasis Retention of urine Stroke (cerebrum) ([facility]) Unspecified hemorrhoids without mention of complication Hemorrhoids Unspecified hypothyroidism Hypothyroidism PAST SURGICAL HISTORY Procedure Laterality Date BYP OTH/THN VEIN AORTOBIFEMORAL 2013 aortobifem LAPAROSCOPIC HEMICOLECTOMY colostomy PAST SURGICAL HISTORY OF Right 02/13/2020 [facility] FAMILY HISTORY Problem Relation Age of Onset Diabetes Father Stroke ( age 89) Diabetes Mother Stroke ( age 88) Stroke Mother Diabetes Sister "Brain " ( age 64) Diabetes Brother other (Old [...] by mouth once daily. FERROUS SULFATE, [facility] Blood Pressure Test Kit-Large (Senscient CHOICE BP MONITOR) 1 Each two times [...] Take 1 tablet by mouth once daily. tbudhesfoxw-dszoxqigc-oibdsxiu (TRELEGY ELLIPTA) 100-62.5-25 mcg inhalation powder Inhale 1 Puff asinstructed once daily. rosuvastatin (CRESTOR) 20 mg tablet Take 1 tablet by mouth daily at bedtime. No current facility-administered medications for this visit. I have confirmed and edited as necessary the chief complaint, medications, past medical, family andsocial histories obtained by others. Objective BP 126/72 Pulse 97 Resp 12 Ht 5' 7" (1.70m) Wt 180 lb (81.6kg) SpO2 97% BMI 28.19 kg/(m^2). Physical Exam Vitals reviewed. Constitutional: General: He [...] long-term current use of insulin ([facility]) - ICD9: 250.70, V58.67, ICD10: E11.59, Z79.4 [...] (AAA) without rupture, unspecified part ([facility]) - ICD9: 441.4, ICD10: I71.40 - CONSULT TO VASCULAR SURGERY 4. H/O aorto-femoral bypass - ICD9: V15.1, ICD10: Z95.828 - CONSULT TO VASCULAR SURGERY 5. PAD (peripheral artery disease) ([facility]) - ICD9: 443.9, ICD10: I73.9 - patient on Eliquis and crestor - CONSULT TO VASCULAR SURGERY - COMPLETE BLOOD COUNT AND DIFFERENTIAL 6. Chronic obstructive pulmonary disease, unspecified COPD type ([facility]) - ICD9: 496, ICD10: J44.9 - CONSULT [...] patient following with Dr. Ramos (GI) in [place] - PANTOPRAZOLE 40 MG TABLET,DELAYED RELEASE 12. History of DVT (deep vein thrombosis) - ICD9: V12.51, ICD10: Z86.718 - ELIQUIS 5 MG TABLET Jenae Santamaria MD Return in about 3 months (around 07/06/2024). Discussed the above with the patient using shared decision making. The patient is in agreement with the diagnostic and treatment plans. documented in this encounterUc Medical Center12-09-2024 NoteHNO ID: [id number] Author: GABRIELA GAN RN Service: ? Author [...] questions performed? Addressed 02/07/24 N/A Concerns: N/A Wealth Management Consultant plan for next outreach: No further follow-up needed at this time. Signature: Gabriela Gan RN March 06[facility]12-09-2024 History of Present illness Narrative* Gabriela Gan RN - 03/06/2024 2:02 PM EST [facility] TRANSITIONAL CARE MANAGEMENT (TCM) FOLLOW-UP NOTE Patient identified by name and date of : YES Spoke to: daughter Diagnosis: N/A Summary: TCM RN called for TCM f/u (SNF D/C 02/04/24). Pt is doing good. No confusion. No issues w/ his urine- no odor, burning or frequency. No refills needed. No needs noted. Health leads screening tool questions performed? Addressed 02/07/24 N/A Concerns: N/A Wealth Management Consultant plan for next outreach: No further follow-up needed at this time. Signature: Gabriela Gan RN March 06, 2024 documented in this encounterUc Medical Center12-09-2024 NotePatient Outreach ([facility]) EMELIA JOHNSON ([id number]) 1950 M Date Time Provider Department 03/06/24 GABRIELA GAN [facility] During your visit today, we recorded the following information about you: Gabriela Gan RN 03/06/2024 2:09 PM Signed [facility] TRANSITIONAL CARE MANAGEMENT (TCM) FOLLOW-UP NOTE Patient identified by name and date of : YES Spoke to: daughter Diagnosis: N/A Summary: MONTY RN called for TCM f/u (SNF D/C 02/04/24). Pt is doing good. No confusion. No issues w/ his urine - no odor, burning or frequency. No refills needed. No needs noted. Health leads screening tool questions performed? Addressed 02/07/24 N/A Concerns: N/A Wealth Management Consultant plan for next outreach: No further follow-up [...] as needed for wheezing/shortness of breath. - hummvrolwoa-ciudxidfe-qjzucfpl (TRELEGY ELLIPTA) 100-62.5-25 mcg inhalation powder Inhale [...] aortic aneurysm (TAAA) without*11/21/2013 02/08/2020 Atherosclerosis of twenty-nine palms artery of extremity w*11/21/2013 Other hyperlipidemia [E78.49] Unspecified hypothyroidism [E03.9] Smoker [F17.200] 01/27/2015 Chronic ischemic right MCA stroke [Z86.73] 02/08/2020 CAD (coronary artery disease), twenty-nine palms coronary *12/27/2013 Postprocedural hypotension [I95.81] 12/27/2013 09/25/2020 [...] [place]*10/13/2020 Encounter Status:Closed by GABRIELA GAN on 03/06/24[facility]12-04-2024 Telephone encounter Note* Telephone Encounter - Judie Garrido MA - 03/01/2024 3:16 PM EST Spoke to pt , will keep log and send it in through my chart [facility]12-04-2024 Miscellaneous Notes* Telephone Encounter - Judie Garrido MA - 03/01/2024 3:16 PM EST Spoke to pt , will keep log and send it in through my chart * Telephone Encounter - Jenae Santamaria MD - 03/01/2024 2:06 PM EST Not sure if readings are done close to when patient had just completed PT. Please call patient to update that we are told that BP's have been elevated and have patient monitor and reach out to officein next couple of days with readings so we can determine need for adjusting BP regimen Jenae Santamaria MD * Telephone Encounter - Judie Garrido MA - 03/01/2024 1:18 PM EST Logan from outpatient physical therapist assistant from [facility] called (no call back number given) to report patients has been having some elevated blood pressure readings of 157/101 heart rate of 87 and second reading the same day of 160/96 heart rate 85 Please advise documented in this encounterUc Medical Center12-04-2024 Telephone encounter Note * Telephone Encounter - Jenae Santamaria MD - 03/01/2024 2:06 PM EST Not sure if readings are done close to when patient had just completed PT. Please call patient to update that we are told that BP's have been elevated and have patient monitor and reach out to officein next couple of days with readings so we can determine need for adjusting BP regimen Jenae Santamaria MD [facility]12-04-2024 Telephone encounter Note* Telephone Encounter - Judie Garrido MA - 03/01/2024 1:18 PM EST Logan from outpatient physical therapist assistant from in [facility] called (no call back number given) to report patients has been having some elevated blood pressure readings of 157/101 heart rate of 87 and second reading the same day of 160/96 heart rate 85 Please advise [facility]12-04-2024 NoteHNO ID: [id number] Author: GABRIELA GAN RN Service: ? Author [...] questions performed? Addressed 02/07/24 N/A Concerns: N/A Wealth Management Consultant plan for next outreach: Will follow-up next wk. Signature: Gabriela Gan RN March 01[facility]12-04-2024 History of Present illness Narrative* Gabriela Gan RN - 03/01/2024 11:31 AM EST [facility] TRANSITIONAL CARE MANAGEMENT (TCM) FOLLOW-UP NOTE Patient identified by name and date of : YES Spoke to: daughter Diagnosis: N/A Summary: TCM RN called for TCM f/u (SNF D/C 02/04/24). Per pt's daughter, he is sleeping. Pt gets up. He eats. He is getting Home PT. Daughter states that he does well when Home PT is there, She states that hedoesn't do the exercises when PT isn't there. No confusion noted. No urine issues noted. Pt has cath. No burning or odor. No refills needed. No needs noted. Health leads screening tool questions performed? Addressed 02/07/24 N/A Concerns: N/A Wealth Management Consultant plan for next outreach: Will follow-up next wk. Signature: Gabriela Gan RN March 01, 2024 documented in this encounterUc Medical Center12-04-2024 NotePatient Outreach ([facility]) EMELIA JOHNSON ([id number]) 1950 M Date Time Provider Department 03/01/24 GABRIELA GAN [facility] During your visit today, we recorded the following information about you: Gabriela Gan RN 03/01/2024 11:48 AM Signed AG TRANSITIONAL CARE [...] questions performed? Addressed 02/07/24 N/A Concerns: N/A Wealth Management Consultant plan for next outreach: Will follow-up next wk. Signature: Gabriela Gan RN March 01, 2024 Allergies As of Date: 03/01/2024 Noted Allergy Reaction LIPITOR (ATORVASTATIN) 11/17/2013 14 - Other: See Comments Comments: body aches Date Reviewed: 12/10/2023 Reviewed by: Jenae Santamaria MD - Fully Assessed Reason for Visit: Transition Of Care [2765] Cmt: TCM f/u Prescriptions as of 03/01/2024 [...] as needed for wheezing/shortness of breath. - iyutpasmmzd-aplpwvmlt-tahupoqg (TRELEGY ELLIPTA) 100-62.5-25 mcg inhalation powder Inhale [...] BULK, MISC - Blood Pressure Test Kit-Large (Senscient CHOICE BP MONITOR) 1 Each two times [...] aortic aneurysm (TAAA) without*11/21/2013 02/08/2020 Atherosclerosis of twenty-nine palms artery of extremity w*11/21/2013 Other hyperlipidemia [E78.49] Unspecified hypothyroidism [E03.9] Smoker [F17.200] 01/27/2015 Chronic ischemic right MCA stroke [Z86.73] 02/08/2020 CAD (coronary artery disease), twenty-nine palms coronary *12/27/2013 Postprocedural hypotension [I95.81] 12/27/2013 09/25/2020 [...] R33.8] 10/08/2020 Hyponatremia [E87.1] 10/08/2020 10/18/2020 Urinary tra (more content not included)...[facility]11-27-2024 [facility]11-21-2024 Telephone encounter Note* Telephone Encounter - Teri Lyonsh - 02/17/2024 11:55 AM EST Received an outside vascular surgery consult from [facility]. Scanned into patient chart. Called patient to schedule and spoke to patient's daughter and she stated they did not know they were being referred somewhere else and would call [facility] to find out why. Patient is not scheduled at this time. [facility]11-21-2024 Miscellaneous Notes* Telephone Encounter - Shirley Lyons - 02/17/2024 11:55 AM EST Received an outside vascular surgery consult from [facility]. Scanned into patient chart. Called patient to schedule and spoke to patient's daughter and she stated they did not know they were being referred somewhere else and would call [facility] to find out why. Patient is not scheduled at this time. documented in this encounterUc Medical Center11-19-2024 NoteHNO ID: [id number] Author: GABRIELA GAN RN Service: ? Author Type: Registered Nurse Type: Progress Notes Filed: 02/15/2024 12:13 Note Text: AG TRANSITIONAL CARE MANAGEMENT (TCM) FOLLOW-UP NOTE Patient identified by name and date of : YES Spoke to: daughter Diagnosis: N/A Summary: TCM RN called for TCM f/u (SNF D/C 02/04/24). Pt is recovering "quite well". He is getting stronger. No confusion noted. No s/s of a urine infection - no odor, burning or frequency. Pt is still active w/ HC. His daughter states that pt is "set up w/ everything". Discussed pt's TCM appointment that was canceled on 02/14/24. Per daughter, she couldn't get him there that day. She declined to re-schedule. States that pt has an appointment w/ his PCP in March. Pt is scheduled to see his PCP on 04/07/23 at 9:2pa. No refills needed. No needs noted. Health leads screening tool questions performed? Addressed 02/07/24 N/A Concerns: N/A Wealth Management Consultant plan for next outreach: Will follow-up next wk. Signature: Gabriela Gan RN February 14[facility]11[facility] History of Present illness Narrative* Gabriela Gan RN - 02/15/2024 12:01 PM EST [facility] TRANSITIONAL CARE MANAGEMENT (TCM) FOLLOW-UP NOTE Patient identified by name and date of : YES Spoke to: daughter Diagnosis: N/A Summary: TCM RN called for TCM f/u (SNF D/C 02/04/24). Pt is recovering "quite well". He is getting stronger.No confusion noted. No s/s of a urine infection - no odor, burning or frequency. Pt is still activew/ HC. His daughter states that pt is "set up w/ everything". Discussed pt's TCM appointment that was canceled on 02/14/24. Per daughter, she couldn't get him there that day. She declined to re-schedule. States that pt has an appointment w/ his PCP in March. Pt is scheduled to see his PCP on 04/07/23 at 9:2pa. No refills needed. No needs noted. Health leads screening tool questions performed? Addressed 02/07/24 N/A Concerns: N/A Wealth Management Consultant plan for next outreach: Will follow-up next wk. Signature: Gabriela Gan RN February 15, 2024 documented in this encounterUc Medical Center11-19-2024 NotePatient Outreach ([facility]) EMELIA JOHNSON ([id number]) 1950 M Date Time Provider Department 02/15/24 GABRIELA GAN [facility] During your visit today, we recorded the following information about you: Gabriela Gan RN 02/15/2024 12:13 PM Signed [facility] TRANSITIONAL CARE MANAGEMENT (TCM) FOLLOW-UP NOTE Patient identified by name and date of : YES Spoke to: daughter Diagnosis: N/A Summary: TCM RN called for TCM f/u (SNF D/C 02/04/24). Pt is recovering "quite well". He is getting stronger. No confusion noted. No s/s of a urine infection - no odor, burning or frequency. Pt is still active w/ HC. His daughter states that pt is "set up w/ everything". Discussed pt's TCM appointment that was canceled on 02/14/24. Per daughter, she couldn't get him there that day. She declined to re-schedule. States that pt has an appointment w/ his PCP in March. Pt is scheduled to see his PCP on 04/07/23 at 9:2pa. No refills needed. No needs noted. Health leads screening tool questions performed? Addressed 02/07/24 N/A Concerns: N/A Wealth Management Consultant plan for next outreach: Will follow-up next wk. Signature: Gabriela Gan RN February 15, 2024 Allergies As of Date: 02/15/2024 Noted Allergy Reaction LIPITOR (ATORVASTATIN) 11/17/2013 14 - Other: See Comments Comments: body aches Date Reviewed: 12/10/2023 Reviewed by: Jenae Santamaria MD - Fully Assessed Reason for Visit: Transition Of Care [4074] Cmt: TCM f/u Prescriptions as of 02/15/2024 - amLODIPine [...] as needed for wheezing/shortness of breath. - kftlphhgimc-mobchqxel-tgfmhjjn (TRELEGY ELLIPTA) 100-62.5-25 mcg inhalation powder Inhale [...] BULK, MISC - Blood Pressure Test Kit-Large (Senscient CHOICE BP MONITOR) 1 Each two times [...] aortic aneurysm (TAAA) without*11/21/2013 02/08/2020 Atherosclerosis of twenty-nine palms artery of extremity w*11/21/2013 Other hyperlipidemia [E78.49] Unspecified hypothyroidism [E03.9] Smoker [F17.200] 01/27/2015 Chronic ischemic right MCA stroke [Z86.73] 02/08/2020 CAD (coronary artery disease), twenty-nine palms coronary *12/27/2013 Postprocedural hypotension [I95.81] 12/27/2013 09/25/2020 [...] On total parenteral nutrition (TPN) [Z78.9] 10/08/2020 07 (more content not included)...[facility]11-13-2024 Telephone encounter Note* Telephone Encounter - Ricarda Bejarano - 02/09/2024 2:14 PM EST Made Marcy aware that Dr. Hernandez did not want to place a standing order urine culture and he couldsee Jose for [facility] Ricarda Fried [facility]11-13-2024 Miscellaneous Notes* Telephone Encounter - Ricarda Bejarano - 02/09/2024 2:14 PM EST Made Marcy aware that Dr. Hernandez did not want to place a standing order urine culture and he couldsee Jose for [facility] Ricarda Fried * Telephone Encounter - Ricarda Bejarano - 02/07/2024 2:47 PM EST Home healthcare called asking if you could give them a standing order for urine culture for UTI symptoms. If order place needs to be faxed to [phone] Please advise. Ricarda Fried documented in this encounter[facility] Center11-[facility]-2024 Telephone encounter Note * Telephone Encounter - Ricarda Bejarano - 02/07/2024 2:47 PM EST Home healthcare called asking if you could give them a standing order for urine culture for UTI symptoms. If order place needs to be faxed to [phone] Please advise. Ricarda Fried [facility] Telephone encounter Note* Telephone Encounter - Cory Lowe MA - 02/07/2024 2:37 PM EST Marcy advised, verbalized understanding [facility] Miscellaneous Notes* Telephone Encounter - Cory Lowe MA - 02/07/2024 2:37 PM EST Marcy advised, verbalized understanding * Telephone Encounter - Jenae Santamaria MD - 02/07/2024 12:29 PM EST It should be monthly, but patient sees urology so not sure if they feel differently about schedule for catheter exchange. Would recommend Home Health reach out to patient's urologist, Dr. Cameron Santamaria MD * Telephone Encounter - Cory Lowe MA - 02/07/2024 10:56 AM EST Lesly from [facility] calling for clarification on catheter orders, states current orderssay change once every 2 months, wants to know if it should be once a month? PH [phone] documented in this encounterUc Medical Center11-11-2024 Telephone encounter Note * Telephone Encounter - Jenae Santamaria MD - 02/07/2024 12:29 PM EST It should be monthly, but patient sees urology so not sure if they feel differently about schedule for catheter exchange. Would recommend Home Health reach out to patient's urologist, Dr. Cameron Santamaria MD [facility] Telephone encounter Note* Telephone Encounter - Cory Lowe MA - 02/07/2024 10:56 AM EST Lesly from [facility] calling for clarification on catheter orders, states current orderssay change once every 2 months, wants to know if it should be once a month? PH [phone] [facility]24 NoteHNO ID: [id number] Author: GABRIELA GAN RN Service: ? Author Type: Registered Nurse Type: Progress Notes Filed: 02/07/2024 10:01 Note Text: TRANSITIONAL CARE MANAGEMENT (TCM) COMMUNITY MONITORING PROGRAM - SWENGEL SUMMARY: Pt discharged from [facility] on 02/04/24. Pt discharged from [facility] on 02/13/14. Admitted for: AMS UTI Patient seen Inpatient MOOSE Visit? N/A. Patient seen ICARE Program? N/A. Contact made with patient: Yes Hi my name is Gabriela Gan RN and I am calling from the [facility] on behalf of your PCP, Jenae Santamaria [...] not. Per his daughter, he is doing "good". She states that a Home SN will be out today. Pt will be receiving HC from [facility]. No UTI symptoms noted - no [...] SPRAY INTO EACH NOSTRIL AT BEDTIME Verified ozxrysezdmc-wkhpfbfwr-gxickati (TRELEGY ELLIPTA) 100-62.5-25 mcg inhalation powder Inhale [...] like to speak with a social work steam service inspector to help give you support for any [...] specialty provider follow up visits as indicated. (more content not included)...[facility]11-11-2024 History of Present illness Narrative* Gabriela Gan RN - 02/07/2024 9:35 AM EST TRANSITIONAL CARE MANAGEMENT (TCM) COMMUNITY MONITORING PROGRAM - SWENGEL SUMMARY: Pt discharged from [facility] on 02/04/24. Pt discharged from [facility] on 02/13/14. Admitted for: AMS UTI Patient seen Inpatient MOOSE Visit? N/A. Patient seen ICARE Program? N/A. Contact made with patient: Yes Hi my name is Gabriela Gan RN and I am calling from the [facility] on behalf of your PCP, Jenae Santamaria MD I understand you were recently in the hospital so I am calling to check in with you to ensure you are feeling well now that you re home. Do you mind if I ask you a few questions related to your hospital stay and well-being Yes Contact with patient post discharge, spoke to daughter. Patient identified by name and . Do you feel your health is BETTER, WORSE, or the SAME since leaving the hospital? Better Pt is sleeping for not. Per his daughter, he is doing "good". She states that a Home SN will be outtoday. Pt will be receiving HC from [facility]. No UTI symptoms noted - no burning,frequency or odor. No confusion. He is a [...] SPRAY INTO EACH NOSTRIL AT BEDTIME Verified yofgeoxblve-izkqpxwsb-dpgryvmt (TRELEGY ELLIPTA) 100-62.5-25 mcg inhalation powder Inhale 1 Puff asinstructed once daily. Verified levothyroxine (SYNTHROID) 200 mcg [...] like to speak with a social work steam service inspector to help give you support for any [...] placed in his esophagus. Gabriela Gan RN documented in this encounterUc Medical Center11-11-2024 NoteHNO ID: [id number] Author: VICK ROLLINS RN Service: ? Author Type: Registered Nurse Type: Progress Notes Filed: 02/07/2024 06:38 Note Text: Patient discharged from [facility] 02/04/2024 to home. Vick Rollins RN February 07, 2024 6:38 AM[facility] History of Present illness Narrative* Vick Rollins RN - 02/07/2024 6:37 AM EST Patient discharged from [facility] 02/04/2024 to home. Vick Rollins RN February 07, 2024 6:38 AM documented in this encounterUc Medical Center11-11-2024 NotePatient Outreach ([facility]) EMELIA JOHNSON ([id number]) 1950 [place] Date Time Provider Department 02/07/24 VICK ROLLINS During your visit today, we recorded the following information about you: Vick Rollins RN 02/07/2024 6:38 AM Signed Patient discharged from [facility] 02/04/2024 to home. Vick Rollins RN February 07, 2024 6:38 AM Allergies As of Date: 02/07/2024 Noted Allergy Reaction LIPITOR (ATORVASTATIN) 11/17/2013 14 - Other: See Comments Comments: body aches Date Reviewed: 12/10/2023 Reviewed by: Jenae Santamaria MD - Fully Assessed Reason for Visit: Transition Of Care [4074] Cmt: Discharged from [facility] as of 02/07/2024 - amLODIPine (NORVASC) 5 [...] as needed for wheezing/shortness of breath. - pbrerbxwffb-qkevzdgxq-zmmfskru (TRELEGY ELLIPTA) 100-62.5-25 mcg inhalation powder Inhale [...] aortic aneurysm (TAAA) without*11/21/2013 02/08/2020 Atherosclerosis of twenty-nine palms artery of extremity w*11/21/2013 Other hyperlipidemia [E78.49] Unspecified hypothyroidism [E03.9] Smoker [F17.200] 01/27/2015 Chronic ischemic right MCA stroke [Z86.73] 02/08/2020 CAD (coronary artery disease), twenty-nine palms coronary *12/27/2013 Postprocedural hypotension [I95.81] 12/27/2013 09/25/2020 [...] infection associated with indwell*10/13/2020 Encounter Status:Closed by VICK ROLLINS on 02/07/24[facility] NotePatient Outreach ([facility]) EMELIA JOHNSON ([id number]) 1950 M Date Time Provider Department 02/07/24 GABRIELA GAN [facility] During your visit today, we recorded the following information about you: Gabriela Gan, LAQUITA 02/07/2024 10:01 AM Signed TRANSITIONAL CARE MANAGEMENT (TCM) COMMUNITY MONITORING PROGRAM - BERNA SUMMARY: Pt discharged from [facility] on 02/04/24. Pt discharged from [facility] on 02/13/14. Admitted for: AMS UTI Patient seen Inpatient MOOES Visit? N/A. Patient seen ICARE Program? N/A. Contact made with patient: Yes Hi my name is Gabriela Gan RN and I am calling from the [facility] on behalf of your PCP, Jenae Santamaria [...] not. Per his daughter, he is doing "good". She states that a Home SN will be out today. Pt will be receiving HC from [facility]. No UTI symptoms noted - no [...] SPRAY INTO EACH NOSTRIL AT BEDTIME Verified fkvzcoydcxl-chocfftam-gqlxczws (TRELEGY ELLIPTA) 100-62.5-25 mcg inhalation powder Inhale [...] like to speak with a social work steam service inspector to help give you support for any [...] and supplies at home? Yes ACTION TAKEN: N (more content not included)...[facility]10-25-2024 Telephone encounter Note* Telephone Encounter - Cory Lowe MA - 01/21/2024 4:24 PM EDT Called to schedule pt per your request, unidentified lady who answered the phone stating pt currently is at [facility]hab [facility] Miscellaneous Notes* Telephone Encounter - Cory Lowe MA - 01/21/2024 4:24 PM EDT Called to schedule pt per your request, unidentified lady who answered the phone stating pt currently is at [facility] for rehab documented in this encounterUc Medical Center09-30-2024 Telephone encounter Note * Telephone Encounter - Edie Culp - 12/27/2023 12:40 PM EDT LVM advising of appointment change Edie Culp [facility] Miscellaneous Notes* Telephone Encounter - Edie Culp - 12/27/2023 12:40 PM EDT LVM advising of appointment change Edie Culp * Telephone Encounter - Edie Culp - 12/27/2023 12:40 PM EDT ----- Message from Gabriela Hicks sent at 12/27/2023 11:56 AM EDT ----- ----- Message ----- From: Cameron Hernandez MD Sent: 12/13/2023 11:20 PM EDT To: Gabriela Javier This is supposed to be 1 year YUMIKO follow up, not with me. documented in this encounterUc Medical Center09-30-2024 Telephone encounter Note * Telephone Encounter - Edie Culp - 12/27/2023 12:40 PM EDT ----- Message from Gabriela Hicks sent at 12/27/2023 11:56 AM EDT ----- ----- Message ----- From: Cameron Hernandez MD Sent: 12/13/2023 11:20 PM EDT To: Gabriela Javier This is supposed to be 1 year YUMIKO follow up, not with me. [facility] Tele[facility] encounter Note* Telephone Encounter - Cory Lowe MA - 12/14/2023 9:32 AM EDT LVM for pt to CB for results below [facility] Tele[facility] encounter Note* Telephone Encounter - Cory Lowe MA - 12/14/2023 9:32 AM EDT ----- Message from Jenae Santamaria MD sent at 12/13/2023 1:06 PM EDT ----- Please call to update that iron levels look good. Kidney number improved from 1.95 to 1.64.Vitamin B12 and folate levels normal. Blood counts stable and platelet count has improved. Jenae Santamaria MD [facility] Miscellaneous Notes* Telephone Encounter - Cory Lowe MA - 12/14/2023 9:32 AM EDT LVM for pt to CB for results below * Telephone Encounter - Cory Lowe MA - 12/14/2023 9:32 AM EDT ----- Message from Jenae Santamaria MD sent at 12/13/2023 1:06 PM EDT ----- Please call to update that iron levels look good. Kidney number improved from 1.95 to 1.64.Vitamin B12 and folate levels normal. Blood counts stable and platelet count has improved. Jenae Santamaria MD documented in this encounterUc Medical Center09-13-2024 Instructions* Patient Instructions* Jenae Santamaria MD - 12/10/2023 10:11 AM EDT - schedule vascular surgery appointment - schedule nephrology appointment - carotid ultrasound - artery ultrasound for legs - follow up with cancer doctor - get labwork done - call [facility] [phone] about colonoscopy that was ordered by gastro doctor - refills today documented in this encounterUc Medical Center09-13-2024 History of Present illness Narrative* Jenae Santamaria MD - 12/10/2023 10:01 AM EDT Images from the original note were not included. [facility] [address] [place] [address] Date of Evaluation: 12/11/2023 Patient Name: Emelia Johnson : 1950 Chief Complaint: Patient presents with: Established Patient Nursing Intake: There are no exam notes on file for this visit. Subjective HPI Mr. Johnson is a 73 year old male who presents for follow up visit. Patient still has swelling in the left thigh despite no DVT seen on duplex. He notes leg pain in the L thigh which is intermittent which feels like a burning pain. Patient denies dark tarry stools or bloody BM. He notes that he still experience coughing but has not been consistent with Stiolto due to not feeling like it helps much. Review of Systems Constitutional: Negative for appetite change, chills, fever and unexpected weight change. Eyes: Negative for visual disturbance. Respiratory: Positive for cough. Negative for shortness of breath. Cardiovascular: Positive for leg swelling (L thigh). Negative for chest pain. Gastrointestinal: Negative for abdominal pain, blood in stool, constipation and diarrhea. Genitourinary: Positive for difficulty urinating (has maddox in place). Negative for dysuria. Musculoskeletal: Positive for arthralgias, back pain and gait problem. Skin: Negative for color change and rash. Neurological: Negative for dizziness, light-headedness and headaches. Hematological: Does not bruise/bleed easily. Psychiatric/Behavioral: Negative for confusion and hallucinations. PAST MEDICAL HISTORY Diagnosis Date Abdominal aneurysm without mention of rupture Aneurysm - Abdominal Aorta Atherosclerosis of twenty-nine palms arteries of the extremities with intermittent claudication ASO - Extremities & Claudication CAD (coronary artery disease) Coronary artery [...] Retention of urine Stroke (cerebrum) ([facility]) Unspecified hemorrhoids without mention of complication Hemorrhoids Unspecified hypothyroidism Hypothyroidism PAST SURGICAL HISTORY Procedure Laterality Date BYP OTH/THN VEIN AORTOBIFEMORAL 2013 aortobifem LAPAROSCOPIC HEMICOLECTOMY colostomy PAST SURGICAL HISTORY OF Right 02/13/2020 CEA FAMILY HISTORY Problem Relation Age of Onset Diabetes Father Stroke ( age 89) Diabetes Mother Stroke ( age 88) Stroke Mother Diabetes Sister "Brain " ( age 64) Diabetes Brother other (Old Age) Maternal Grandmother age 98 Diabetes Maternal Grandfather No Ocular Disease No Family History Social History Tobacco Use Smoking status: Former Current packs/day: 0.00 Average packs/day: 3.0 packs/day for 50.0 years (150.0 ttl pk-yrs) Types: Cigars, Cigarettes Start date: 10/28/1963 Quit date: 10/27/2013 Years since quittin.1 Smokeless tobacco: Never Vaping Use Vaping status: Never Used Substance Use Topics Alcohol use: No Drug use: No Current Outpatient Medications Medication Sig fluticasone (FLONASE) 50 mcg/actuation nasal spray SPRAY 1 SPRAY INTO EACH NOSTRIL AT BEDTIME ELIQUIS 5 mg tab(s) Take 1 tablet by mouth two times a day. loratadine (CLARITIN) 10 mg tablet Take 1 tablet by mouth once daily. finasteride (PROSCAR) 5 mg tablet Take 1 tablet by mouth once daily. FERROUS SULFATE, BULK, MISC Blood Pressure Test Kit-Large (CLEVER CHOICE BP MONITOR) 1 Each two times a day. ergocalciferol 50,000 unit capsule (VITAMIN D2, DRISDOL) Take 1 capsule by mouth one time a week. flash glucose sensor (FREESTYLE HEMA 14 DAY SENSOR) kit 1 Each four times daily. Fenofibrate 160 mg tablet Take 1 tablet by mouth once daily. amLODIPine (NORVASC) 5 mg tablet Take 1 tablet by mouth once daily. aspirin, enteric coated (ASPIRIN, ENTERIC COATED) 81 mg EC tablet Take 1 tablet by mouth once daily. rosuvastatin (CRESTOR) 20 mg tablet Take 1 tablet by mouth daily at bedtime. levothyroxine (SYNTHROID) 200 mcg tablet Take 1 tablet by mouth daily before breakfast. albuterol HFA (PROVENTIL HFA) 90 mcg/actuation inhaler Inhale 1-2 Puffs as instructed four times a day as needed for wheezing/shortness of breath. gocbrqqycyp-ljtxvvxfa-nppdfuvo (TRELEGY ELLIPTA) 100-62.5-25 mcg inhalation powder Inhale 1 Puff asinstructed once daily. No current facility-administered medications for this visit. I have confirmed and edited as necessary the chief complaint, medications, past medical, family andsocial histories obtained by others. Objective BP 131/81 Pulse 84 Wt 177 lb 3.2 oz (80.4kg) SpO2 97% Physical Exam Vitals reviewed. Constitutional: General: He is not in acute distress. Appearance: Normal appearance. He is not ill-appearing, toxic-appearing or diaphoretic. HENT: Head: Normocephalic and atraumatic. Right Ear: External ear normal. Left Ear: External ear normal. Nose: Nose normal. Mouth/Throat: Mouth: Mucous membranes are moist. [...] leg: No edema. Left lower leg: Edema (soft tissue thickening of L thigh) present. Skin: General: Skin is warm and dry. Coloration: Skin is not jaundiced. Findings: No erythema (no redness or increased warmth of L thigh) or rash. Neurological: Mental Status: He is alert and oriented to person, place, and time. Psychiatric: Mood and Affect: Mood normal. Behavior: Behavior normal. Thought Content: Thought content normal. Judgment: Judgment normal. Data Reviewed: Most recent labs and imaging results. ASSESSMENT/PLAN: 1. Primary hypertension - ICD9: 401.9, ICD10: I10 (primary diagnosis) - Controlled - Continue current medications - Recommend home blood pressure monitoring, to bring results to next visit - Encouraged sodium restriction, DASH or Mediterranean diet - Recommend regular aerobic exercise - AMLODIPINE 5 MG TABLET 2. Swelling of thigh - ICD9: 729.81, ICD10: M79.89 - recent venous duplex without DVT - CT FEMUR WO IVCON LEFT 3. Encounter for immunization - ICD9: V03.89, ICD10: Z23 - INFLUENZA VACCINE, PRSV FREE, AGE 65+ YR, HIGH DOSE, TRIVALENT (FLUZONE HIGH-DOSE) - RSV PRINTED PHARMACY INSTRUCTIONS 4. Symptomatic stenosis of right carotid artery - ICD9: 433.10, ICD10: I65.21 S/p R CEA in 2019 - on crestor 20 mg daily - ASPIRIN 81 MG TABLET,DELAYED RELEASE - US CAROTID BILATERAL 5. Unspecified hypothyroidism - ICD9: 244.9, ICD10: E03.9 - Instructed patient on importance of taking on an empty stomach either first thing in the morning or at bedtime. - continue current dose of Synthroid 0.200 mg daily - LEVOTHYROXINE 200 MCG TABLET 6. Chronic obstructive pulmonary disease, unspecified COPD type (HCC) - ICD9: 496, ICD10: J44.9 - ALBUTEROL SULFATE HFA 90 MCG/ACTUATION AEROSOL INHALER - TRELEGY ELLIPTA 100 MCG-62.5 MCG-25 MCG POWDER FOR INHALATION 7. Coronary artery disease involving twenty-nine palms coronary artery of twenty-nine palms heart without angina pectoris- ICD9: 414.01, ICD10: I25.10 - on ASA 81 mg daily, crestor 20 mg daily 8. Other hyperlipidemia - ICD9: 272.4, ICD10: E78.49 - on fenofibrate and crestor 9. Type 2 diabetes mellitus with other circulatory complication, with long-term current use of insulin (HCC) - ICD9: 250.70, V58.67, ICD10: E11.59, Z79.4 - Controlled, diet- controlled - Counseled on healthy diet and regular exercise 10. History of CVA (cerebrovascular accident) - ICD9: V12.54, ICD10: Z86.73 - on ASA and statin 11. History of rectal cancer - ICD9: V10.06, ICD10: Z85.048 - discussed follow up with GI and hem/onc 12. 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HCC) - ICD9: V44.3, ICD10: Z93.3 - stable 13. H/O aorto-femoral bypass - ICD9: V15.1, ICD10: Z95.828 - encouraged patient to schedule appt with vascular surgery 14. Benign prostatic hyperplasia with urinary retention - ICD9: 600.01, 788.20, ICD10: N40.1, R33.8 - following with urology - has maddox catheter in place with monthly exchanges Jenae Santamaria MD Return in about 4 months (around 04/10/2024). Discussed the above with the patient using shared decision making. The patient is in agreement with the diagnostic and treatment plans. documented in this encounterUc Medical Center08-19-2024 Telephone encounter Note * Telephone Encounter - Angelina Desai MA - 11/15/2023 9:46 AM EDT Rocio(RN) from [facility] called to inform provider that during patients cath change his urine was pink, cloudy and milky looking. Patient denies any pain or burning.Rocio would like to know if she should get a urine sample she said she can take a verbal order. Rocio can be reached at [phone]. Please advise Angelina Desai MA [facility]-19-2024 Miscellaneous Notes* Telephone Encounter - Angelina Desai MA - 11/15/2023 9:46 AM EDT Rocio(RN) from [facility] called to inform provider that during patients cath change his urine was pink, cloudy and milky looking. Patient denies any pain or burning.Rocio would like to know if she should get a urine sample she said she can take a verbal order. Rocio can be reached at [phone]. Please advise Angelina Desai MA documented in this encounterUc Medical Center08-01-2024 Telephone encounter Note * Telephone Encounter - Radha Egan RN - 10/28/2023 1:14 PM EDT Rocio from [facility] services need a verbal order that it is ok to change Hanks catheter on 11.14.23. [phone] Radha Egan RN [facility] Miscellaneous Notes* Telephone Encounter - Radha Egan RN - 10/28/2023 1:14 PM EDT Rocio from [facility] services need a verbal order that it is ok to change Hanks catheter on 11.14.23. [phone] Radha Egan RN documented in this encounterUc Medical Center07-24-2024 Telephone encounter Note * Telephone Encounter - Jenae Santamaria MD - 10/20/2023 6:53 PM EDT Called about recent urine study. Cultures growing MRSA. Patient noticing that urine is malodorous and urine from study not from maddox catheter bag. Patient currently stable per daughter and afebrile.Will send bactrim Estimated Creatinine Clearance: 34.2 mL/min (A) (based on SCr of 1.95 mg/dL (H)). Jenae Santamaria MD [facility] Miscellaneous Notes* Telephone Encounter - Jenae Santamaria MD - 10/20/2023 6:53 PM EDT Called about recent urine study. Cultures growing MRSA. Patient noticing that urine is malodorous and urine from study not from maddox catheter bag. Patient currently stable per daughter and afebrile.Will send bactrim Estimated Creatinine Clearance: 34.2 mL/min (A) (based on SCr of 1.95 mg/dL (H)). Jenae Santamaria MD documented in this encounterUc Medical Center07-18-2024 Telephone encounter Note * Telephone Encounter - Suzanne Roberts MA - 10/14/2023 2:16 PM EDT Patient Home Health aide Marie - called stating that they obtained UA/ UCX from patient's new maddox change today. Patient was c/o sediment in maddox bag and malodorous urine. Marie denies any fever , chills or pain and states urine is flowing fine into maddox bag. Suzanne Roberts MA [facility]-18-2024 Miscellaneous Notes* Telephone Encounter - Suzanne Roberts MA - 10/14/2023 2:16 PM EDT Patient Home Health aide Marie - called stating that they obtained UA/ UCX from patient's new maddox change today. Patient was c/o sediment in maddox bag and malodorous urine. Marie denies any fever , chills or pain and states urine is flowing fine into maddox bag. Suzanne Roberts MA documented in this encounterUc Medical Center07-09-2024 History of Present illness Narrative* Yudy Benoit - 10/05/2023 9:34 AM EDT Last saw pcp: 09/10/23 Subjective: Patient presents to clinic c/o painful toenails. They state that the nails are especially painful with shoe gear and pressure. Patient states that nails 1-5 b/l are painful. Patient admits to being diabetic. Now has blood clot in left leg being worked up. No other pedal complaints at this time. Patient states no change in medications or medical history since last visit. Objective: Patient presents to clinic ambulating in [facility] Vasc: DP and PT pulses are nonpalpable [...] dystrophic and with subungal debris. Skin is dry and pallor and hair growth is absent bilateral. There [...] foot (M79.674) Pain in toe of right evie (E11.42) Diabetic polyneuropathy associated with type 2 diabetes mellitus (HCC) Plan: Patient was seen and evaluated. Nails 1-5 bilateral were debrided in length and thickness. Patient was instructed on the continued importance of diabetic foot care along with proper diet andkeeping their blood sugar under control to prevent complications. Patient has neuropathy combined with pad. Stressed the importance of wearing good shoes and avoiding barefoot walking Continue with lotion to feet Offered pvr but patient and son declined Patient is to RTC in 3-4 months. Yudy Benoit DPM * Luana Scott RN - 10/05/2023 9:20 AM EDT Patient presents with: Left Foot - Established Patient, Diabetic Foot Care Right Foot - Established Patient, Diabetic Foot Care Patient is accompanied by his son today. documented in this encounterUc Medical Center07-09-2024 Instructions* Patient Instructions* Yudy Benoit - 10/05/2023 9:34 AM EDT Diabetes Foot Care Instructions When you have [...] or sore from your shoes, do not "pop" it. Apply a bandage and wear a differentpair of shoes. Take Care of Your Toenails Cut toenails after bathing, when they are soft. Cut toenails straight across and smooth with a nail file. Avoid cutting into the corners of toes. Do not cut cuticles. If you have neuropathy (or decreased sensation in your feet) a cell maker should always cut your toenails. Be Careful [...] make sure there are no foreign objects orrough areas. Avoid tight socks. Wear natural-fiber socks (cotton, wool, or a cotton-wool blend). Wear special shoes if your health care provider recommends them. Wear shoes/boots that will protect your feet from various weather conditions (cold, moisture, etc.). Make sure your shoes fit properly. If you have neuropathy (nerve damage), you may not notice that your shoes are too tight. Perform the "footwear test" described below. Footwear Test Use this simple [...] Go to your health care provider or cell maker to treat these conditions. documented in this encounter[facility] Telephone encounter Note * Telephone Encounter - Beti Ramirez MA - 09/27/2023 3:07 PM EDT Pharmacy faxed requesting the following refill Refill(s) Requested: Requested Prescriptions Pending Prescriptions Disp Refills fluticasone (FLONASE) 50 mcg/actuation nasal spray [Pharmacy Med Name: FLUTICASONE PROP 50 MCG SPRAY] 48 mL 1 Sig: SPRAY 1 SPRAY INTO EACH NOSTRIL AT BEDTIME ALLERGIES Allergen Reactions Lipitor [Atorvastat* Other: See Comments body aches (home) [phone] (cell) Last Office Visit Date: 09/10/2023 Last Distance Health Visit: Visit date not found Future Appointment: 12/10/2023 The patients preferred pharmacy has been captured for this encounter? yes Request is for script(s) to be escript to pharmacy. Beti Ramirez MA [facility] Miscellaneous Notes* Telephone Encounter - Beti Ramirez MA - 09/27/2023 3:07 PM EDT Pharmacy faxed requesting the following refill Refill(s) Requested: Requested Prescriptions Pending Prescriptions Disp Refills fluticasone (FLONASE) 50 mcg/actuation nasal spray [Pharmacy Med Name: FLUTICASONE PROP 50 MCG SPRAY] 48 mL 1 Sig: SPRAY 1 SPRAY INTO EACH NOSTRIL AT BEDTIME ALLERGIES Allergen Reactions Lipitor [Atorvastat* Other: See Comments body aches (home) [phone] (cell) Last Office Visit Date: 09/10/2023 Last [facility] Visit: Visit date not found Future Appointment: 12/10/2023 The patients preferred pharmacy has been captured for this encounter? yes Request is for script(s) to be escript to pharmacy. Beti Ramirez MA documented in this encounterU[facility] Center06-20-2024 Telephone encounter Note * Telephone Encounter - Cory Lowe MA - 09/16/2023 8:53 AM EDT LVM for pt to CB for test results [facility] Tele[facility] encounter Note* Telephone Encounter - Cory Lowe MA - 09/16/2023 8:53 AM EDT ----- Message from Jenae Santamaria MD sent at 09/15/2023 7:13 PM EDT ----- Please update that there is no DVT seen in the L leg but it looks like they had trouble with getting the imaging for the study done well because of firmness of the leg tissue Jenae Santamaria MD [facility] Miscellaneous Notes* Telephone Encounter - Cory Lowe MA - 09/16/2023 8:53 AM EDT LVM for pt to CB for test results * Telephone Encounter - Cory Lowe MA - 09/16/2023 8:53 AM EDT ----- Message from Jenae Santamaria MD sent at 09/15/2023 7:13 PM EDT ----- Please update that there is no DVT seen in the L leg but it looks like they had trouble with getting the imaging for the study done well because of firmness of the leg tissue Jenae Santamaria MD documented in this encounterUc [facility] Center06-19-2024 Telephone encounter Note * Telephone Encounter - Mary Lundy MA - 09/15/2023 3:00 PM EDT Patient denies being symptomatic. Caregiver states that after the maddox change urine became clear with minimal sediment in the bag. Caregiver stated that they will need an order to come back in one month for another cath change. Thank you. Caregiver name is Rocio and can be reached at: [phone] Mary Lundy MA [facility] Miscellaneous Notes* Telephone Encounter - Mary Hu MA - 09/15/2023 3:00 PM EDT Patient denies being symptomatic. Caregiver states that after the maddox change urine became clear with minimal sediment in the bag. Caregiver stated that they will need an order to come back in one month for another cath change. Thank you. Caregiver name is Rocio and can be reached at: [phone] Mary Lundy MA * Telephone Encounter - Mary Lundy MA - 09/15/2023 1:19 PM EDT Home health caregiver from [facility] health called in regards to the patient stating that while changing patient's maddox cath she noted the color of the urine to be a dark parag, cloudy, and containing a lot of sediment. Caregiver would like to know if she should obtain a specimen for culture? Please advise. Thank you. Mary Lundy MA documented in this encounterUc Medical Center06-19-2024 Telephone encounter Note * Telephone Encounter - Mary Lundy MA - 09/15/2023 1:19 PM EDT Home health caregiver from [facility] home health called in regards to the patient stating that while changing patient's maddox cath she noted the color of the urine to be a dark parag, cloudy, and containing a lot of sediment. Caregiver would like to know if she should obtain a specimen for culture? Please advise. Thank you. Mary Lundy MA [facility] History of Present illness Narrative* Suzy Pinto CT - 09/15/2023 10:30 AM EDT Radiology Service Progress Note PATIENT NAME: Emelia Johnson DATE OF SERVICE: September 15, 2023 TIME: 11:16 AM PATIENT IDENTITY VERIFICATION COMPLETED USING TWO (2) IDENTIFIERS: Name and Date of confirmedby patient verbally and Name and Date of confirmed by identification band. FALL SCREENING: Has the patient had 2 falls in the last year or 1 fall with injury or currently using an Ambulatory Assistive Device (Walker, Cane, Wheelchair, Crutches, etc.)? No PATIENT GENDER DATA: Male PATIENT RELEVANT IMPLANT DATA REVIEWED: Not Applicable PATIENT PRESENTS WITH AN IMPLANTABLE OR ATTACHED FIXED WING AIRCRAFT CREW CHIEF: na RADIOLOGY DEPARTMENT: Ultrasound PERIPHERAL IV DATA: Not applicable SIGNED BY: Suzy Pinto RDMS, RVT September 15, 2023 11:16 AM documented in this encounterUc Medical Center06-19-2024 Telephone encounter Note * Telephone Encounter - Cory Lowe MA - 09/15/2023 9:29 AM EDT [facility] Cert Period 08/31/23 to 10/29/[address] Santamaria Form faxed. Transmission ok. [facility] Miscellaneous Notes* Telephone Encounter - Cory Lowe MA - 09/15/2023 9:29 AM EDT [facility] Cert Period 08/31/23 to 10/29/[address] Santamaria Form faxed. Transmission ok. documented in this encounterUc Medical Center06-17-2024 Telephone encounter Note * Telephone Encounter - Cory Lowe MA - 09/13/2023 11:51 AM EDT Pharmacy called requesting the following refill Refill(s) Requested: Requested Prescriptions Pending Prescriptions Disp Refills fluticasone (FLONASE) 50 mcg/actuation nasal spray [Pharmacy Med Name: FLUTICASONE PROP 50 MCG SPRAY] 24 mL 2 Sig: SPRAY 1 SPRAY INTO EACH NOSTRIL AT BEDTIME ALLERGIES Allergen Reactions Lipitor [Atorvastat* Other: See Comments body aches (home) [phone] (cell) Last Office Visit Date: 09/10/2023 Last Distance Health Visit: Visit date not found Future Appointment: 12/10/2023 The patients preferred pharmacy has been captured for this encounter? yes Request is for script(s) to be escript to pharmacy. Cory Lowe MA [facility] Miscellaneous Notes* Telephone Encounter - Cory Lowe MA - 09/13/2023 11:51 AM EDT Pharmacy called requesting the following refill Refill(s) Requested: Requested Prescriptions Pending Prescriptions Disp Refills fluticasone (FLONASE) 50 mcg/actuation nasal spray [Pharmacy Med Name: FLUTICASONE PROP 50 MCG SPRAY] 24 mL 2 Sig: SPRAY 1 SPRAY INTO EACH NOSTRIL AT BEDTIME ALLERGIES Allergen Reactions Lipitor [Atorvastat* Other: See Comments body aches (home) [phone] (cell) Last Office Visit Date: 09/10/2023 Last Distance Health Visit: Visit date not found Future Appointment: 12/10/2023 The patients preferred pharmacy has been captured for this encounter? yes Request is for script(s) to be escript to pharmacy. Cory Lowe MA documented in this encounterUc Medical Center06-14-2024 Telephone encounter Note * Telephone Encounter - Elkin Mansfield - 09/10/2023 2:52 PM EDT US DVT LOWER LEFT was ordered STAT for the patient this morning. Patient and his son declined having the test scheduled while in the office due to lack of transportation. Called and spoke with patient's son in the afternoon to ask about any updates on the patient's transportation. Patient's son declined scheduling at this time and informed he would call the office on Wednesday to tell us dates and times the patient would be available. Elkin Mansfield [facility] Miscellaneous Notes* Telephone Encounter - Elkin Mansfield - 09/10/2023 2:52 PM EDT US DVT LOWER LEFT was ordered STAT for the patient this morning. Patient and his son declined having the test scheduled while in the office due to lack of transportation. Called and spoke with patient's son in the afternoon to ask about any updates on the patient's transportation. Patient's son declined scheduling at this time and informed he would call the office on Wednesday to tell us dates and times the patient would be available. Elkin Mansfield documented in this encounterUc Medical Center06-14-2024 Instructions* Patient Instructions* Jenae Santamaria MD - 09/10/2023 10:05 AM EDT - call to set up appt with vascular surgery in [place] ([phone]) - [place] will get scoping of gut on 10/15/2023 at 10 AM - try to get ultrasound and lab work done soon documented in this encounterUc Medical Center06-14-2024 History of Present illness Narrative* Jenae Santamaria MD - 09/10/2023 10:00 AM EDT Images from the original note were not included. [facility] [address] [place] [address] Date of Evaluation: 09/12/2023 Patient Name: Emelia Johnson : 1950 Chief Complaint: Patient presents with: Established Patient Nursing Intake: There are no exam notes on file for this visit. Subjective HPI Mr. Johnson is a 73 year old male who presents for follow up visit. Patient's home health nurse called office at the end of July regarding patient's left leg seeming more red and swollen and warm to touch as well as concerns for dark stools in colostomy bag. Patient is present at appt with son today.Patient admits to taking iron supplement and denies lightheadedness, dizziness, and has not noticedany low BP's at home. Due to not being aware that patient has been taking iron supplements and its impact on color of stool, patient's son has been intermittently giving patient his Eliquis. Discussed continuing Eliquis and stopping iron and if there are dark stools and concerns for bleeding, wouldneed to stop Eliquis and would need immediate medical attention and evaluation. Patient denies significant pain in LLE but it is more swollen and then the RLE. Review of Systems Constitutional: Negative for appetite change, chills, fever and unexpected weight change. HENT: Positive for congestion. Eyes: Negative for visual disturbance. Respiratory: Negative for shortness of breath and wheezing. Cardiovascular: Positive for leg swelling. Negative for chest pain. Gastrointestinal: Negative for abdominal pain, blood in stool, constipation, diarrhea, nausea and vomiting. Endocrine: Negative for cold intolerance and heat intolerance. Genitourinary: Negative for hematuria. Musculoskeletal: Positive for arthralgias, back pain and gait problem. Skin: Negative for color change and rash. Allergic/Immunologic: Positive for environmental allergies. Neurological: Negative for dizziness, weakness and light-headedness. Hematological: Does not bruise/bleed easily. Psychiatric/Behavioral: Negative for confusion. PAST MEDICAL HISTORY Diagnosis Date Abdominal aneurysm without mention of rupture Aneurysm - Abdominal Aorta Atherosclerosis of twenty-nine palms arteries of the extremities with intermittent claudication ASO - Extremities & Claudication CAD (coronary artery disease) Coronary artery [...] Retention of urine Stroke (cerebrum) ([facility]) Unspecified hemorrhoids without mention of complication Hemorrhoids Unspecified hypothyroidism Hypothyroidism PAST SURGICAL HISTORY Procedure Laterality Date BYP OTH/THN VEIN AORTOBIFEMORAL 2013 aortobifem LAPAROSCOPIC HEMICOLECTOMY colostomy PAST SURGICAL HISTORY OF Right 02/13/2020 [facility] FAMILY HISTORY Problem Relation Age of Onset Diabetes Father Stroke ( age 89) Diabetes Mother Stroke ( age 88) Stroke Mother Diabetes Sister "Brain " ( age 64) Diabetes Brother other (Old Age) Maternal Grandmother age 98 Diabetes Maternal Grandfather No Ocular Disease No Family History Social History Tobacco Use Smoking status: Former Packs/day: 3.00 Years: 50.00 Additional pack years: 0.00 Total pack years: 150.00 Types: Cigars, Cigarettes Quit date: 10/27/2013 Years since quittin.8 Smokeless tobacco: Never Vaping Use Vaping Use: Never used Substance Use Topics Alcohol use: No Drug use: No Current Outpatient Medications Medication Sig aspirin, enteric coated (ASPIRIN, ENTERIC COATED) 81 mg EC tablet TAKE 1 TABLET BY MOUTH EVERY DAY amLODIPine (NORVASC) 5 mg tablet Take 1 tablet by mouth once daily. rosuvastatin (CRESTOR) 20 mg tablet Take 1 tablet by mouth daily at bedtime. finasteride (PROSCAR) 5 mg tablet Take 1 tablet by mouth once daily. FERROUS SULFATE, BULK, MISC albuterol HFA (PROVENTIL HFA) 90 mcg/actuation inhaler Inhale 1-2 Puffs as instructed four times a day as needed for wheezing/shortness of breath. Blood Pressure Test Kit-Large (Senscient BP MONITOR) 1 Each two times a day. ergocalciferol 50,000 unit capsule (VITAMIN D2, DRISDOL) Take 1 capsule by mouth one time a week. flash glucose sensor (FREESTYLE HEMA 14 DAY SENSOR) kit 1 Each four times daily. Fenofibrate 160 mg tablet Take 1 tablet by mouth once daily. ELIQUIS 5 mg tab(s) Take 1 tablet by mouth two times a day. loratadine (CLARITIN) 10 mg tablet Take 1 tablet by mouth once daily. fluticasone (FLONASE) 50 mcg/actuation nasal spray Use 1 [place] in each nostril daily at bedtime. tiotropium-olodaterol (STIOLTO RESPIMAT) 2.5-2.5 mcg/actuation Inhale 2 Puffs as instructed once daily. levothyroxine (SYNTHROID) 200 mcg tablet Take 1 tablet by mouth daily before breakfast. No current facility-administered medications for this visit. I have confirmed and edited as necessary the chief complaint, medications, past medical, family andsocial histories obtained by others. Objective BP 137/79 Pulse 82 Wt 176 lb 12.8 oz (80.2kg) SpO2 95% Physical Exam Vitals reviewed. Constitutional: General: He is not in acute distress. Appearance: Normal appearance. He is not ill-appearing, toxic-appearing or diaphoretic. HENT: Head: Normocephalic and atraumatic. Right Ear: External ear normal. Left Ear: External ear normal. Nose: Nose normal. Mouth/Throat: Mouth: Mucous membranes are moist. Pharynx: Oropharynx is clear. No oropharyngeal exudate or posterior oropharyngeal erythema. Eyes: General: No scleral icterus. Extraocular Movements: [...] There is no abdominal tenderness. Musculoskeletal: General: Swelling (LLE) present. Normal range of motion. Cervical back: Normal range of motion. Right lower leg: No edema. Left lower leg: Edema (+1) present. Skin: General: Skin is warm and dry. Coloration: Skin is not jaundiced. Neurological: Mental Status: He is alert and oriented to person, place, and time. Gait: Gait abnormal. Psychiatric: Mood and Affect: Mood normal. Behavior: Behavior normal. Thought Content: Thought content normal. Judgment: Judgment normal. Data Reviewed: Most recent labs and imaging results. ASSESSMENT/PLAN: 1. Acute deep vein thrombosis (DVT) of proximal vein of left lower extremity (HCC) - ICD9: 453.41, ICD10: I82.4Y2 (primary diagnosis) - ELIQUIS 5 MG TABLET - US DVT LOWER LEFT- given swelling in LLE, will repeat ultrasound STAT, discussed if worsening symptoms or swelling and pain, may need surgical intervention 2. Encounter for immunization - ICD9: V03.89, ICD10: Z23 - PNEUMOCOCCAL VACCINE, 20 VALENT (PREVNAR 20) - [facility] PRINTED PHARMACY INSTRUCTIONS - TDAP PRINTED PHARMACY INSTRUCTIONS 3. Chronic obstructive pulmonary disease, unspecified COPD type ([facility]) - ICD9: 496, ICD10: J44.9 - [id number] - STIOLTO RESPIMAT 2.5 MCG-2.5 MCG/ACTUATION SOLUTION FOR INHALATION 4. Seasonal allergic rhinitis due to pollen - ICD9: 477.0, ICD10: J30.1 - LORATADINE 10 MG TABLET - FLUTICASONE PROPIONATE 50 MCG/ACTUATION NASAL SPRAY,SUSPENSION 5. Type 2 diabetes mellitus with other circulatory complication, with long-term current use of insulin ([facility]) - ICD9: 250.70, V58.67, ICD10: E11.59, Z79.4 - Diet- controlled - Counseled on healthy diet and regular exercise - Discussed need for and benefit of weight loss. BMI 27.69 kg/(m^2) - HEMOGLOBIN A1C 6. Unspecified hypothyroidism - ICD9: 244.9, ICD10: E03.9 - Instructed patient on importance of taking on an empty stomach either first thing in the morning or at bedtime. - continue current dose of Synthroid 0.200 mg daily - THYROID STIMULATING HORMONE - LEVOTHYROXINE 200 MCG TABLET 7. 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 Discussed the above with the patient using shared decision making. The patient is in agreement with the diagnostic and treatment plans. documented in this encounterUc Medical Center05-31-2024 Telephone encounter Note * Telephone Encounter - Jenae Santamaria MD - 08/27/2023 6:07 PM EDT Called patient about the update from home health nurse and discussed going to ER especially with the active bleeding and the concerns for infection. Jenae Santamaria MD [facility] Miscellaneous Notes* Telephone Encounter - Jenae Santamaria MD - 08/27/2023 6:07 PM EDT Called patient about the update from home health nurse and discussed going to ER especially with the active bleeding and the concerns for infection. Jenae Santamaria MD * Telephone Encounter - Judie Garrido MA - 08/27/2023 2:41 PM EDT Oj from home health care nurse called [phone] left vm stating patients family had stopped eliquis due to pt getting black tarry stools and now pt has a blood clot swollen red, hot to the touch nurse wanted to do a med reconciliation, I tried to call nurse oj back, I was able to reach herbut her phone was all static and I was unable to hear her but she was able to hear me fine. She hung up I tried to call her back several times, but her phone was disconnected. documented in this encounterUc Medical Center05-31-2024 Telephone encounter Note * Telephone Encounter - Judie Garrido MA - 08/27/2023 2:41 PM EDT Oj from home health care nurse called [phone] left stating patients family had stopped eliquis due to pt getting black tarry stools and now pt has a blood clot swollen red, hot to the touch nurse wanted to do a med reconciliation, I tried to call nurse oj back, I was able to reach herbut her phone was all static and I was unable to hear her but she was able to hear me fine. She hung up I tried to call her back several times, but her phone was disconnected. [facility] Tele[facility] encounter Note* Telephone Encounter - Judie Garrido MA - 08/26/2023 1:39 PM EDT Pharmacy faxed requesting the following refill Refill(s) Requested: Requested Prescriptions Pending Prescriptions Disp Refills aspirin, enteric coated (ASPIRIN, ENTERIC COATED) 81 mg EC tablet [Pharmacy Med Name: [facility] ASPIRIN EC 81 MG TABLET] 90 tablet 1 Sig: TAKE 1 TABLET BY MOUTH EVERY DAY ALLERGIES Allergen Reactions Lipitor [Atorvastat* Other: See Comments body aches (home) [phone] (cell) Last Office Visit Date: 08/03/2023 Last [facility] Visit: Visit date not found Future Appointment: 09/02/2023 The patients preferred pharmacy has been captured for this encounter? yes Request is for script(s) to be escript to pharmacy. Judie Garrido MA [facility] Miscellaneous Notes* Telephone Encounter - Judie Garrido MA - 08/26/2023 1:39 PM EDT Pharmacy faxed requesting the following refill Refill(s) Requested: Requested Prescriptions Pending Prescriptions Disp Refills aspirin, enteric coated (ASPIRIN, ENTERIC COATED) 81 mg EC tablet [Pharmacy Med Name: [facility] ASPIRIN EC 81 MG TABLET] 90 tablet 1 Sig: TAKE 1 TABLET BY MOUTH EVERY DAY ALLERGIES Allergen Reactions Lipitor [Atorvastat* Other: See Comments body aches (home) [phone] (cell) Last Office Visit Date: 08/03/2023 Last Distance Health Visit: Visit date not found Future Appointment: 09/02/2023 The patients preferred pharmacy has been captured for this encounter? yes Request is for script(s) to be escript to pharmacy. Judie Garrido MA documented in this encounterUc Medical Center05-09-2024 Telephone encounter Note * Telephone Encounter - Jenae Santamaria MD - 08/05/2023 8:23 AM EDT Called about urine culture results with Proteus mirabilis and sensitivity results. Will send bactrim x 7 days. Estimated Creatinine Clearance: 38.2 mL/min (A) (based on SCr of 1.77 mg/dL (H)). Jenae Santamaria MD [facility] Miscellaneous Notes* Telephone Encounter - Jenae Santamaria MD - 08/05/2023 8:23 AM EDT Called about urine culture results with Proteus mirabilis and sensitivity results. Will send bactrim x 7 days. Estimated Creatinine Clearance: 38.2 mL/min (A) (based on SCr of 1.77 mg/dL (H)). Jenae Santamaria MD documented in this encounterUc Medical Center05-07-2024 History of Present illness Narrative* Jenae Santamaria MD - 08/03/2023 11:57 AM EDT Images from the original note were not included. [facility] [address] [place] [address] Date of Evaluation: 08/08/2023 Patient Name: Emelia Johnson : 1950 Chief Complaint: Patient presents with: F/U 3 Month Nursing Intake: There are no exam notes on file for this visit. Subjective HPI Mr. Johnson is a 73 year old male who presents for follow up visit. He is accompanied by family at visit. Patient's family did not realize that patient's synthroid was increased following recent labs.They note that patient recently had urinalysis and urine culture done due to concerns for urinary tract infection. Patient continues to have maddox catheter and see urology regularly. Patient's urinalysis shows gram negative rods but still pending speciation and culture sensitivity. Patient was recently admitted from 06/23/2023 to 06/26/2023 for confusion, nausea, vomiting and dyspnea and was found to have UTI, acute hypoxic respiratory failure from aspiration pneumonia, FIOR and DVT. Patient was initially admitted in ICU and was on vancomycin and zosyn which was then transitioned to keflex on discharge. He was also sent home on Eliquis, however, patient ran out of medication and thought medication was only for a duration of time, instead of to be refilled and continued. Patient has been going to see podiatry and they have been checking feet and cutting nails. Review of Systems Constitutional: Negative for appetite change, chills, fever and unexpected weight change. HENT: Positive for trouble swallowing. Respiratory: Positive for cough. Negative for shortness of breath. Cardiovascular: Negative for chest pain. Gastrointestinal: Negative for abdominal pain, blood in stool, constipation and diarrhea. Endocrine: Negative for cold intolerance and heat intolerance. Genitourinary: Negative for hematuria. Musculoskeletal: Positive for arthralgias, back pain and gait problem. Skin: Negative for rash. Neurological: Negative for weakness, light-headedness and headaches. Hematological: Does not bruise/bleed easily. Psychiatric/Behavioral: Negative for sleep disturbance. PAST MEDICAL HISTORY Diagnosis Date Abdominal aneurysm without mention of rupture Aneurysm - Abdominal Aorta Atherosclerosis of twenty-nine palms arteries of the extremities with intermittent claudication ASO - Extremities & Claudication CAD (coronary artery disease) Coronary artery [...] Retention of urine Stroke (cerebrum) ([facility]) Unspecified hemorrhoids without mention of complication Hemorrhoids Unspecified hypothyroidism Hypothyroidism PAST SURGICAL HISTORY Procedure Laterality Date BYP OTH/THN VEIN AORTOBIFEMORAL 2013 aortobifem LAPAROSCOPIC HEMICOLECTOMY colostomy PAST SURGICAL HISTORY OF Right 02/13/2020 [facility] FAMILY HISTORY Problem Relation Age of Onset Diabetes Father Stroke ( age 89) Diabetes Mother Stroke ( age 88) Stroke Mother Diabetes Sister "Brain " ( age 64) Diabetes Brother other (Old Age) Maternal Grandmother age 98 Diabetes Maternal Grandfather No Ocular Disease No Family History Social History Tobacco Use Smoking status: Former Packs/day: 3.00 Years: 50.00 Additional pack years: 0.00 Total pack years: 150.00 Types: Cigars, Cigarettes Quit date: 10/27/2013 Years since quittin.7 Smokeless tobacco: Never Vaping Use Vaping Use: Never used Substance Use Topics Alcohol use: No Drug use: No Current Outpatient Medications Medication Sig FERROUS SULFATE, BULK, MISC albuterol HFA (PROVENTIL HFA) 90 mcg/actuation inhaler Inhale 1-2 Puffs as instructed four times a day as needed for wheezing/shortness of breath. Blood Pressure Test Kit-Large (Senscient BP MONITOR) 1 Each two times a day. ergocalciferol 50,000 unit capsule (VITAMIN D2, DRISDOL) Take 1 capsule by mouth one time a week. flash glucose sensor (FREESTYLE HEMA 14 DAY SENSOR) kit 1 Each four times daily. Fenofibrate 160 mg tablet Take 1 tablet by mouth once daily. sulfamethoxazole-trimethoprim (BACTRIM DS) 800-160 mg per tablet Take 1 tablet by mouth two times aday for 7 days. ELIQUIS 5 mg tab(s) Take 1 tablet by mouth two times a day. amLODIPine (NORVASC) 5 mg tablet Take 1 tablet by mouth once daily. levothyroxine (SYNTHROID) 200 mcg tablet Take 1 tablet by mouth daily before breakfast. tiotropium-olodaterol (STIOLTO RESPIMAT) 2.5-2.5 mcg/actuation Inhale 2 Puffs as instructed once daily. rosuvastatin (CRESTOR) 20 mg tablet Take 1 tablet by mouth daily at bedtime. finasteride (PROSCAR) 5 mg tablet Take 1 tablet by mouth once daily. aspirin, enteric coated (ADULT LOW DOSE ASPIRIN) 81 mg EC tablet Take 1 tablet by mouth once daily. No current facility-administered medications for this visit. I have confirmed and edited as necessary the chief complaint, medications, past medical, family andsocial histories obtained by others. Objective BP 127/83 Pulse 86 Resp 16 Ht 5' 7" (1.70m) Wt 182 lb (82.6kg) SpO2 96% BMI 28.50 kg/(m^2). Physical Exam Vitals reviewed. Constitutional: General: He is not in acute distress. Appearance: Normal appearance. He is ill-appearing. He is not toxic-appearing or diaphoretic. HENT: Head: Normocephalic and atraumatic. Right Ear: External ear normal. Left Ear: External ear normal. Nose: Nose normal. Mouth/Throat: Mouth: Mucous membranes are moist. Pharynx: Oropharynx is clear. No oropharyngeal exudate or posterior oropharyngeal erythema. Eyes: General: No scleral icterus. Extraocular Movements: [...] Data Reviewed: Most recent labs ASSESSMENT/PLAN: 1. Urinary tract infection associated with indwelling urethral catheter, initial encounter ([facility]) ([facility]) - ICD9: 996.64, 599.0, ICD10: T83.511A, N39.0 (primary diagnosis) acute - Patient education for prevention given - URINE CULTURE - AMOXICILLIN 875 MG-POTASSIUM CLAVULANATE 125 MG TABLET 2. Acute deep vein thrombosis (DVT) of proximal vein of left lower extremity ([facility]) - ICD9: 453.41, ICD10: I82.4Y2 - COMPLETE BLOOD COUNT AND DIFFERENTIAL - ELIQUIS 5 MG TABLET 3. Stage 3b chronic kidney disease ([facility]) - ICD9: 585.3, ICD10: N18.32 - eGFR: 40 Stable - Counseled on avoiding NSAIDs, adequate hydration - Counseled on low sodium diet - Follow up with kidney medicine - COMPREHENSIVE METABOLIC PANEL 4. Primary hypertension - ICD9: 401.9, ICD10: I10 - Controlled - Continue current medications - Recommend home blood pressure monitoring, to bring results to next visit - Encouraged sodium restriction, DASH or Mediterranean diet - Recommend regular aerobic exercise - AMLODIPINE 5 MG TABLET 5. Unspecified hypothyroidism - ICD9: 244.9, ICD10: E03.9 - Instructed patient on importance of taking on an empty stomach either first thing in the morning or at bedtime. - continue current dose of Synthroid 0.200 mg - LEVOTHYROXINE 200 MCG TABLET 6. Chronic obstructive pulmonary disease, unspecified COPD type ([facility]) - ICD9: 496, ICD10: J44.9 - STIOLTO RESPIMAT 2.5 MCG-2.5 MCG/ACTUATION SOLUTION FOR INHALATION 7. Symptomatic stenosis of right carotid artery - ICD9: 433.10, ICD10: I65.21 - s/p R carotid endarterectomy - ASPIRIN 81 MG TABLET,DELAYED RELEASE 8. PAD (peripheral artery disease) ([facility]) - ICD9: 443.9, ICD10: I73.9 - US ANKLE BRACHIAL INDICES - US ARTERIAL PVR LOWER 9. Oropharyngeal dysphagia - ICD9: 787.22, ICD10: R13.12 - XR MODIFIED BARIUM SWALLOW W SPEECH THERAPY Jenae Santamaria MD Return in about 1 month (around 09/03/2023). Discussed the above with the patient using shared decision making. The patient is in agreement with the diagnostic and treatment plans. [facility] Telephone encounter Note * Telephone Encounter - Virgilio Self MA - 07/30/2023 12:03 PM EDT Urine culture from [facility] scanned in Please review Virgilio Self MA [facility] Miscellaneous Notes* Telephone Encounter - Virgilio Self MA - 07/30/2023 12:03 PM EDT Urine culture from [facility] scanned in Please review Virgilio Self MA documented in this encounter[facility]04-30-[facility]24 Telephone encounter Note * Telephone Encounter - Angela Willoughby MA - 07/27/2023 2:15 PM EDT [facility] health called and stated that family and pt is c/o dark urine with a odder. Home health is seeking a verbal order for a urine cult. Please advise. [facility] [phone] Angela willoughby MA [facility] Miscellaneous Notes* Telephone Encounter - Angela Willoughby MA - 07/27/2023 2:15 PM EDT [facility] called and stated that family and pt is c/o dark urine with a odder. Home health is seeking a verbal order for a urine cult. Please advise. [facility] [phone] Angela willoughby MA documented in [facility]04-[facility]-2024 Miscellaneous Notes* Telephone Encounter - Jenae Santamaria MD - 07/13/2023 5:57 PM EDT Called patient several times with patient number going straight to and LVM about lab results andmedication changes Jenae Santamaria MD documented in this encounter[facility]04-16-2024 Miscellaneous Notes* Telephone Encounter - Jese Cerda - 07/13/2023 10:43 AM EDT Patient's spouse declined to schedule due to wanting to be closer to home, I gave her the number for [place] [phone] New Patient Referral from Jenae Santamaria [phone] Ext. [phone] for AAA without Rupture with EXTERNAL [facility] CT ABD/PEL 06/23/2023 *Images being pushed 07/13/2023* documented in this encounterU[facility] Center04-12-2024 Miscellaneous Notes* Telephone Encounter - Janel Fernández MA - 07/09/2023 3:10 PM EDT Vascular Surgery Referral place through the [facility] Portal on July 09, 2023. #[id number] Janel Fernández MA documented in this encounterU[facility] Center2024 History of Present illness Narrative* Jenae Santamaria MD - 07/08/2023 6:02 PM EDT Called patient to try to discuss lab results and LVM. Also updated that they need to see vascular surgery for outpatient monitoring of hx of AAA s/p repair. Jenae Santamaria MD [place] [id number] Miscellaneous Notes* Telephone Encounter - Melisa Newsome APRN.CNP - 07/08/2023 3:06 PM EDT Spoke with patient's daughter Elidia. Patient is scheduled for LCT consult. However, he is under active cancer surveillance for rectal cancer and his oncologist has ordered a diagnostic CT Chest. We do not recommend doing both tests LDCT Chest for lung cancer screening and diagnostic CT Chest. The rectal cancer surveillance testing takes priority. Patient may return for Lung Cancer Screening oncehis surveillance is complete. Melisa Newsome APRN.EMMANUELLE documented in this encounterU[facility] Center04-09-2024 Instructions* Patient Instructions* Yudy Benoit - 07/06/2023 10:04 AM EDT Diabetes Foot Care Instructions When you have [...] or sore from your shoes, do not "pop" it. Apply a bandage and wear a differentpair of shoes. Take Care of Your Toenails Cut toenails after bathing, when they are soft. Cut toenails straight across and smooth with a nail file. Avoid cutting into the corners of toes. Do not cut cuticles. If you have neuropathy (or decreased sensation in your feet) a cell maker should always cut your toenails. Be Careful [...] make sure there are no foreign objects orrough areas. Avoid tight socks. Wear natural-fiber socks (cotton, wool, or a cotton-wool blend). Wear special shoes if your health care provider recommends them. Wear shoes/boots that will protect your feet from various weather conditions (cold, moisture, etc.). Make sure your shoes fit properly. If you have neuropathy (nerve damage), you may not notice that your shoes are too tight. Perform the "footwear test" described below. Footwear Test Use this simple [...] Go to your health care provider or cell maker to treat these conditions. documented in [facility]04-[facility]24 History of Present illness Narrative* Yudy Benoit - 07/06/2023 9:48 AM EDT Initial Office Visit Subjective: This 73 year old male presents to clinic for diabetic foot check. Patient has the following complaints: dystrophic and painful toenails. Patient admits to being diabetic for multiple years now. Patient +B/T/N in feet at this time. Patient -pain in legs when walking. Currently has blood clot in left leg. No other pedal complaints at this time. No change in medications or medical history since last visit. PAIN EVALUATION No data found in the last 1 encounters. 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 (Patient taking differently: Take 175 mcg by mouth daily before breakfast.) FERROUS SULFATE, BULK, MISC amLODIPine (NORVASC) 10 mg tablet Take 1 tablet by mouth once daily. (Patient taking differently: Take 5 mg by mouth once daily.) albuterol HFA (PROVENTIL HFA) 90 mcg/actuation inhaler Inhale 1-2 Puffs as instructed four times a day as needed for wheezing/shortness of breath. tiotropium-olodaterol (STIOLTO RESPIMAT) 2.5-2.5 mcg/actuation Inhale 2 Puffs as instructed once daily. Blood Pressure Test Kit-Large (Senscient BP MONITOR) 1 Each two times a day. ergocalciferol 50,000 unit capsule (VITAMIN D2, DRISDOL) Take 1 capsule by mouth one time a week. flash glucose sensor (MuzookaSTYLE HEMA 14 DAY SENSOR) kit 1 Each four times daily. rosuvastatin (CRESTOR) 20 mg tablet Take 20 mg by mouth daily at bedtime. finasteride (PROSCAR) 5 mg tablet Take 5 mg by mouth once daily. Fenofibrate 160 mg tablet Take 1 tablet by mouth once daily. lisinopril (ZESTRIL) 5 mg tablet Take 1 tablet by mouth once daily. (Patient not taking: Reported on 07/06/2023) iv contrast (will be provided with radiology test) CT ABD/PEL -Inject, intravenously, once for 1 dose.No IV access, insert saline lock prior to the beginning of sedation, infusion, injection of imaging exam. Discontinue saline lock post exam. If Pt. has a central line or IVAD, may access for administration according to line specific nursing protocol. Once exam is complete flush line and de-accessaccording to line specific nursing protocol in the CT contrast administration guidelines link. (Patient not taking: Reported on 07/06/2023) enteric contrast (will be provided with radiology test) For CT ABD/PEL W IVCON Routine order Administer, As Directed One Time Only, via Oral, Rectal, both Oral and Rectal, Enteric Tube, Stoma or Indwelling Catheter, Enteric Contrast as designated per enteric contrast guidelines (Patient not taking:Reported on 07/06/2023) aspirin, enteric coated (ASPIR-LOW) 81 mg EC tablet Take 1 tablet by mouth once daily. (Patient nottaking: Reported on 07/06/2023) No current facility-administered medications for this visit. ALLERGIES Allergen Reactions Lipitor [Atorvastat* Other: See Comments body aches PAST SURGICAL HISTORY Procedure Laterality Date BYP OTH/THN VEIN AORTOBIFEMORAL 2013 aortobifem LAPAROSCOPIC HEMICOLECTOMY colostomy PAST SURGICAL HISTORY OF Right 02/13/2020 [facility] FAMILY HISTORY Problem Relation Age of Onset Diabetes Father Stroke ( age 89) Diabetes Mother Stroke ( age 88) Stroke Mother Diabetes Sister "Brain " ( age 64) Diabetes Brother other (Old Age) Maternal Grandmother age 98 Diabetes Maternal Grandfather No Ocular Disease No Family History Social History Tobacco Use Smoking status: Former Packs/day: 3.00 Years: 50.00 Additional pack years: 0.00 Total pack years: 150.00 Types: Cigars, Cigarettes Quit date: 10/27/2013 Years since quittin.6 Smokeless tobacco: Never Vaping Use Vaping Use: Never used Substance Use Topics Alcohol use: No Drug use: No REVIEW OF SYSTEMS GENERAL: Negative for Malaise, significant weight loss, fever RESPIRATORY: Negative for cough, wheezing and shortness of breath CARDIOVASCULAR: Negative for chest pain, leg swelling and palpitations GI: Negative for abdominal discomfort, blood in stools or black stools and change in bowel habits : Negative for dysuria, frequency and incontinence MUSCULOSKELETAL: Negative for joint pain or swelling, back pain, and muscle pain. SKIN: Negative for lesions, rash, and itching. HEMATOLOGY/LYMPHOLOGY Negative for prolonged bleeding, bruising easily, and swollen nodes. ENDOCRINE: Negative for cold or heat intolerance, polyuria, polydipsia and goiter. NEURO: negative The remainder of the review of systems is noncontributory. Objective: Patient presents to clinic nonambulatory Constitutional: Pt is a well developed 73 year old male who is alert, oriented, cooperative and in no apparent distress. Eyes: Following during examination. No redness or drainage. Respiratory: RR normal and nonlabored. Even breathing. No evidence of distress. Psychology: Patient is engaged during conversation. Normal affect and mood. Does not appear depressed or anxious. Vasc: DP and PT pulses are nonpalpable bilateral. CFT is less than 5 seconds bilateral. Skin temperature is warm to cool proximal to distal bilateral. There is moderate edema or varicosities noted. Hair growth absent. Neuro: Protective sensation is asent to the foot and toes when tested with the 5.07 SWM bilateral. Vibratory sensation is absent at the hallux bilateral. +Significant neurological defecits. Derm: Inspection and palpation performed. Nails 1-5 b/l are painful, discolored- yellow, thick, crumbly, dystrophic and with subungal debris. Skin is thin, dry, ruborous and hair growth is absent b/l.Hyperkeratosis not present. Small eschar at 2nd toe from rubbing from great toenail. No signs of infection. NO ulcerations, scars, verruca or other lesions noted. Ortho: Ankle joint DF is decreased with the knee extended and decreased with knee flexed. No pain or crepitus noted. STJ, MTJ ROM are full and free of pain or crepitus. Muscle strength is 5/5 for dorsiflexors, plantarflexors, inverters, everters. Digital deformities include small hallux valgus, right foot. Assessment: (E11.42) Diabetic polyneuropathy associated with type 2 diabetes mellitus ([facility]) (primary encounter diagnosis) (M20.11) Acquired hallux valgus of right foot (I73.9) PAD (peripheral artery disease) ([facility]) (B35.1) Onychomycosis (M79.675) Pain in toe of left foot (M79.674) Pain in toe of right foot Plan: 1. Patient was seen and evaluated. 2. Patient was instructed on the continued importance of diabetic foot care along with proper diet and keeping their blood sugar under control to prevent complications. Patient does have evidence of neuropathy. Stressed the need for daily foot inspection, avoiding barefoot walking, use of lotion tofeet. Instructions given both oral and written. 3. Patient does have symptoms concerning for pad. Offered vascular testing. They chose to hold on this. 4. Toenails 1-5 b/l debrided in length and thickness. Small bleed to left hallux as the nail was noted to be rubbing against the distal tuft. . Silver nitrate was applied. Band aide applied. 5. Offered diabetic shoes for patient. Patient declined at this time 6. F/u in 3 months or sooner if problems arise. Yudy Benoit DPM * Judie Dewey RN - 07/06/2023 9:33 AM EDT Patient presents with: Left Foot - New, Diabetic Foot Check Right Foot - New, Diabetic Foot Check Patient presents for diabetic foot check and nail care. Patient moved nearby in the fall and here to establish with a new cell maker. Patient has not seen a cell maker in over 6 months. Unable to cuthis own toenails. Recently discharged from the hospital for UTI and pneumonia. Patient also has current blood clot to left leg. Patient lives with family currently documented [facility] this [facility]03-[facility]24 Discharge summary Author Aníbal Vela [facility] June 26, 2023 4:07pm Note Date/Time June 26, 2023 3:5 8pm [facility] Medical Records Department [address] [place] [address] Instructions for Home/Discharge Instructions 06/26/23 1557 MR#: [id number] Acct: [id number] Name: EMELIA JOHNSON Rep #:[id number] : 1950 73 From: Aníbal Vela DO PCP: Jenae Santamaria MD Status:ADM IN Discharge Instructions Diet Discharge Diet: - (No added sugar diet) Activity Discharge Activity: Return to Normal Activity and Use Walker Weight Bearing Status: Full weight bearing Follow Up Care Test Results: Test results from this visit will be discussed in further detail at your follow- up appointment, if applicable. Discharge Plan Admission Admit Date/Time: 06/23/23 00:16 Primary Reason for Your Visit: Urinary tract infection, acute kidney injury Attending Provider: Aníbal Vela Primary Care Provider: Jenae Santamaria Consulting Providers: Luke Mims; Kulwinder De La O; Guilherme Tellez; Johnnie Logan; Marcy Vang; Liliane Gonzalez Instructions Additional Instructions / Restrictions: Reduce your amlodipine to one half of a 10 mg pill daily, start on 06/26/2023 Increase your ferrous sulfate 325 mg to 1 twice a day-you can obtain this [id number] Do not take any aspirin, ibuprofen, or Aleve while you are taking Eliquis, take only Tylenol for pain Discharge Orders/Prescriptions Prescriptions: New Eliquis 5 mg Tablet 10 mg PO BID Qty: 66 0RF Rx Instructions: Take 2 tabs twice a day for a total of 24 pills, then reduce to 1 pill twice a day thereafter-start the evening of 06/26/2023 cephalexin 250 mg capsule 250 mg PO BID Qty: 11 0RF Rx Instructions: 1 twice a day for 11 doses, then discontinue, start 06/26/2019 4 in the evening Continued levothyroxine 175 mcg tablet 175 mcg PO finasteride 5 mg tablet 5 mg PO DAILY Changed ferrous sulfate 325 mg (65 mg iron) tablet 325 mg PO BIDCM Qty: 1 0RF Discontinued amlodipine 10 mg tablet 10 mg PO DAILY Referrals / Follow Up: Jenae Santamaria MD [Primary Care Provider] - In 1 Week (You will need to get a BMP repeated to check on your kidney function) Disposition Disposition (needs filled in before D/C Order can be placed): Home Health Service 06/26/23 1607<Electronically signed by Aníbal Vela DO>Aníbal Vela DO CC: Jenae Santamaria MD; Dr. Kulwinder De La O DO; Dr. Luke Mims DO; Dr. Johnnie Logan MD; Dr. Guilherme Tellez MD; Marcy Vang; Liliane Gonzalez NP ~ Signed [facility] Work Phone: [phone]) 811-455103-29-2024 Progress note Author Aníbal Vela [facility] June 25, 2023 6:33pm Note Date/Time June 25, 2023 6:1 4pm [facility] Medical Records Department [address] [place] [address] Progress Note - Hospitalist 06/25/23 1808 MR#: [id number] Acct: [id number] Name: ALEXEMELIA BRISA Rep #:[id number] : 1950 73 From: Aníbal Vela DO PCP: Jenae Santamaria MD Status:ADM IN Location: [place] [address] Reason for Visit Reason for Visit: Diagnoses Sepsis, unspecified organism (06/23/23) Unspecified infectious disease (06/23/23) Acidosis, unspecified (06/23/23) Other encephalopathy (06/23/23) Acute embolism and thrombosis of unspecified deep veins of unspecified lower extremity (06/23/23) Acute respiratory failure with hypoxia (06/23/23) Noninfective gastroenteritis and colitis, unspecified (06/23/23) Calculus of gallbladder without cholecystitis without obstruction (06/23/23) Acute kidney failure, unspecified (06/23/23) Urinary tract infection, site not specified (06/23/23) Severe sepsis without septic shock (06/23/23) Unspecified foreign body in respiratory tract, part unspecified causing other injury, initial encounter (06/23/23) Subjective Subjective Patient was seen and examined today, he is currently on room air and he appears stable for transfer to PCU for further care. Objective Data Objective Data Vital Signs: Vital Signs Temp Pulse Resp BP Pulse Ox O2 Del Method O2 Flow Rate 97.4 F L 89 14 132/73 H 93 Room Air 2 06/25/23 16:48 06/25/23 16:48 06/25/23 16:48 06/25/23 16:48 06/25/23 16:48 06/25/23 16:48 06/25/23 06:52 Oxygen Flow Rate (L/min) 2 Oxygen Delivery Method Room Air Weight: 86 kg Body Mass Index (BMI) 29.7 Intake & Output: Intake and Output for Last 24 Hours 06/23/23 06/24/23 06/25/23 23:59 23:59 23:59 Intake Total 2998.75 / 2998.75 765.15 / 765.15 888.8 / 888.8 Output Total 2150 / 2150 1450 / 1800 2350 / 2350 Balance 848.75 / 848.75 -684.85 / -1034.85 -1461.2 / -1461.2 Lab / Micro Data 06/25/23 03:08 06/25/23 03:08 Labs: Laboratory Results - last 24 hr 06/24/23 20:13: APTT 57.3 H 06/24/23 21:33: POC Glucose 151 H 06/25/23 03:08: WBC 8.1, RBC 3.82 L, Hgb 10.9 L, Hct 35.5 L, MCV 92.9, MCH 28.5,MCHC 30.7 L, RDW Std Deviation 54.3 H, RDW Coeff of Yanira 16.1 H, Plt Count 142 L,MPV 12.1 H, APTT 63.7 H, Sodium 141, Potassium 4.6, Chloride 114 H, Carbon Dioxide 22.0, Anion Gap 5, BUN 30 H, Creatinine 2.68 H, Estim Creat Clear Calc 25.70, Est GFR (MDRD) Af Amer 30 L, Est GFR (MDRD) Non-Af 25 L, BUN/Creatinine Ratio 11.2, Glucose 147 H, Calcium 8.4 L, Total Bilirubin 0.40, AST 26, ALT 12 L, Alkaline Phosphatase 58, Total Protein 6.7, Albumin 2.3 L, Globulin 4.4 H, Albumin/Globulin Ratio 0.5 L 06/25/23 08:52: POC Glucose 131 H 06/25/23 10:10: Vancomycin Trough 17.0 H 06/25/23 11:49: POC Glucose 132 H 06/25/23 17:09: POC Glucose 130 H Micro: Microbiology 06/22/23 20:52 Blood Culture (Wb) - Right Hand Blood Culture - Preliminary No growth in 48 hours. 06/22/23 20:45 Blood Culture (Wb) - Left Hand Blood Culture - Preliminary No growth in 48 hours. 06/23/23 02:05 Urine Catheter - Maddox Urine Culture - Final Presumptive E. coli 06/23/23 02:05 Urine Catheter - Maddox Legionella Antigen - Final 06/23/23 02:05 Urine Catheter - Maddox Streptococcus pneumoniae Antigen (M - Final 06/22/23 20:25 Urine, Random Urine Culture - Final Presumptive E. coli 06/23/23 02:05 Nasal Secretion MRSA (PCR) - Final Meth. resistant Staph. aureus 06/22/23 20:55 Mucosa - Nasopharyngeal SARS-CoV-2, Influenza & RSV (PCR) - Final Rhythm Strip Rhythm Strip: Sinus Rhythm Rate: 86 Ectopy: PVC(s) (Few to occasional) Physical Exam Const alert, oriented x3 and no apparent distress Constitutional Narrative: Patient appears older than stated age General Appearance: cooperative, well kempt and well developed Orientation / Consciousness: awake, oriented to person and oriented to place HEENT normocephalic, head/scalp atraumatic and moist oral mucous membranes Eyes PERRL, EOMs intact bilaterally and conjunctivae normal Neck supple, no JVD, thyroid normal and no carotid bruits General: trachea midline Resp normal respiratory effort, no retractions, no use of accessory muscles and clearto auscultation bilaterally Auscultation: Negative for rales, rhonchi or wheezes Cardio regular rate, regular rhythm, S1 normal heart sound, S2 normal heart sound, no murmurs, no rub and no gallops GI normal to inspection, nondistended, normoactive bowel sounds, soft to palpation,non-tender and non-distended Extremity no clubbing, cyanosis or edema Skin no rashes or lesions noted General Skin Exam: no breakdown Neuro CN's II-XII intact bilaterally, no focal motor deficits and no sensory deficits noted Sensorium / Orientation: awake, alert, oriented to person and oriented to place Speech: speech normal Psych affect normal Assessment & Plan Assessment/Plan (1) DVT (deep venous thrombosis): PLAN: Plan 1. Severe sepsis secondary to acute cystitis associated with chronic Maddox catheter usage-E. coli, patient will remain on IV antibiotics #2 acute encephalopathy secondary to severe sepsis-patient is alert to self and place today, continue to give supportive care #3 acute left lower extremity DVT-patient will be placed on Eliquis starting tonight, heparin drip will be discontinued #4 possible left-sided pneumonia-infectious diseases has recommended continuing empiric Vanco and Zosyn #5 acute kidney injury on a backdrop of stage III chronic kidney disease, continue to monitor BMP #6 type 2 diabetes-patient's blood sugars will be monitored with fingerstick blood sugars, sliding scale insulin will be given if needed Total clinical time spent by myself addressing the patient's medical issues, reviewing all of his data, and collaborating with patient's care team: 50 minutes Charges/Coding Visit Charges Inpatient E&M: 79449 Subs Hosp L3 06/25/23 3620 <Electronically signed by Aníbal Vela DO> Cosigner Signature (if applicable): CC: ~ Signed [facility] Work Phone: [phone] Progress note Author [facility] June 25, 2023 2:28pm Note Date/Time June 25, 2023 2:2 9pm [facility] Medical Records Department [address] [place] [address] Progress Note - Infect Disease 06/25/23 1425 MR#: [id number] Acct: [id number] Name: EMELIA JOHNSON Rep #:[id number] : 1950 73 From: Guilherme mace MD PCP: Jenae Santamaria MD Status:ADM IN Location: ICU CVICU20 1-1 Physical Exam Narrative Feeling better. No dyspnea, no fever Const alert and no apparent distress Resp clear to auscultation bilaterally Cardio regular rate and regular rhythm GI soft to palpation, non-tender and non-distended Skin no rashes or lesions noted ID ID: Route of nutrition/ use of supplements: [] Nutritional Intake: [] IV Site: [] Maddox Catheter: [] Assessment & Plan Assessment/Plan (1) Encephalopathy due to infection: (2) Acute hypoxemic respiratory failure: (3) Severe sepsis with acute organ dysfunction: PLAN: Concern for L sided pneumonia, enteritis, L foot/ankle cellulitis, and uti. Mental status much improved. FIOR on CKD is slightly worsening. UAgs neg. Cont empiric vanc/zosyn. Ucx with ecoli. Will follow 06/25/231427 <Electronically signed by Guilherme Tellez MD> Cosigner Signature (if applicable): CC: ~ Signed [facility] Work Phone: [phone] Consult note Author [facility] June 25, 2023 1:20pm Note Date/Time June 25, 2023 11: 02am [facility] Medical Records Department [address] [place] [address] Pharmacokinetic/Renal -Consult 06/25/23 1101 MR#: [id number] Acct: [id number] Name: EMELIA JOHNSON Rep #:[id number] : 1950 73 From: Dinah Gerber PCP: Jenae Santamaria MD Status:ADM IN Y Location: ICU CVICU20 1-1 Consult Antibiotic Management Pharmacy has been consulted to manage selected antibiotic: Vancomycin Type of Intervention Type of Consult: Follow-up Suspected Infection Suspected Infection: Sepsis and Other (UTI) Labs Labs: Sodium 141 mmol/L (136-145) 06/25/23 03:08 Potassium 4.6 mmol/L (3.5-5.1) 06/25/23 03:08 Chloride 114 mmol/L (98-107) H 06/25/23 03:08 Carbon Dioxide 22.0 mmol/L (21.0-32.0) 06/25/23 03:08 Anion Gap 5 (5-15) 06/25/23 03:08 BUN 30 mg/dL (7-18) H 06/25/23 03:08 Creatinine 2.68 mg/dL (0.70-1.30) H 06/25/23 03:08 Est GFR (MDRD) Af Amer 30 mL/min (>60) L 06/25/23 03:08 Est GFR (MDRD) Non-Af 25 mL/min (>60) L 06/25/23 03:08 BUN/Creatinine Ratio 11.2 RATIO (10-20) 06/25/23 03:08 Glucose 147 mg/dL (74-106) H 06/25/23 03:08 Vancomycin Trough 17.0 ug/mL (5.0-15.0) H 06/25/23 10:10 Microbiology Microbiology: Microbiology 06/23/23 02:05 Urine Catheter - Maddox Urine Culture - Final Presumptive E. coli 06/23/23 02:05 Urine Catheter - Maddox Legionella Antigen - Final 06/23/23 02:05 Urine Catheter - Maddox Streptococcus pneumoniae Antigen (M - Final 06/22/23 20:25 Urine, Random Urine Culture - Final Presumptive E. coli 06/23/23 02:05 Nasal Secretion MRSA (PCR) - Final Meth. resistant Staph. aureus 06/22/23 20:55 Mucosa - Nasopharyngeal SARS-CoV-2, Influenza & RSV (PCR) - Final Pharmacy Plan for Drug Dosing Pharmacy Plan for Drug Dosing: VANCOMYCIN LEVEL RECEIVED Current Vancomycin Dose: 1000MG Q24 Number of Doses Received: 2 Vancomycin Level: 17 MG/DL Hours Since Last Dose: 23 Renal Function: SCR 2.68 MG/DL, CRCL 25.7 ML/MIN Renal Function Trend: INCREASED Lab/Micro: BCX PENDING, URINE CX E COLI Vancomycin Plan/Comments: 23 hour trough is therapeutic (goal 15-20 mg/dL), willcontinue current dosing at this time and get a trough in 2 days. Pending Level: 06/27/23 @ 1030 Pharmacy Service will continue to monitor and adjust dosing as required. 06/25/23 1102 <Electronically signed by Dinah Gerber> Date _ Dinah Gerber 06/25/23 1320 <Electronically signed by Guilherme snigh MD> Cosigner Signature (if applicable): Date Guilherme Tellez MD CC: ~ Signed [facility] Work Phone: [phone] 513-288003-28-2024 Progress note Author Willian Sujatha [facility] June 24, 2023 4:10pm Note Date/Time June 24, 2023 7:1 7am [facility] Medical Records Department [address] [place] [id number] Progress Note - Order Dispatcher Chief 06/24/23 0712 MR#: [id number] Acct: [id number] Name: EMELIA JOHNSON Rep #:[id number] : 1950 73 From: Willian Cook MD PCP: Jenae Santamaria MD Status:ADM IN Location: ICU CVICU20 1-1 Assessment & Plan Assessment/Plan (1) Severe sepsis with acute organ dysfunction: (2) Complicated urinary tract infection: (3) Encephalopathy due to infection: PLAN: Plan RECOMMENDATIONS: 1. Continue empiric antibiotics pending cultures 2. Walking oximetry prior to discharge 3. Monitor for ongoing emesis 4. Wean oxygen as tolerated 5. Hemodynamically stable on minimal nasal cannula. Will sign off from a critical care perspective IMPRESSIONS: 1. Sepsis secondary to E. coli UTI Patient was significant penile defect and findings suggestive of UTI. Cultures are growing E. coli, but sensitivities are currently pending. Patient would be at high risk for acute cystitis given urologic defects. Patient is currently on empiric antibiotics. Doubt patient will require pressors given hemodynamic stability for over 24 hours. Lower clinical suspicion of acute aspiration as an etiology, but this could be possible. CT of the abdomen does show evidence of enteritis, but CT scan is more suggestive of atelectasis. 2. Acute left lower extremity DVT Patient should be placed on a heparin drip for now. Likely okay to transition to a 10 a inhibitor from my perspective. Patient may have an elementof PE leading to current hypoxia and atelectasis. 3. Possible acute kidney injury Patient presented with an elevated creatinine of 2.37, but BUN is suggestive of intrinsic dysfunction. Patient has received significant volume resuscitation. Will continue to monitor. No significant improvement following sepsis fluids. Clinical suspicion patient may have chronic kidney dysfunction, but this would have to be confirmed with old records versus continued levels of creatinine. 4. History of colon cancer/AAA/hypothyroidism/debility Complicates care, management and recovery. Patient will be seen by PT/OT to work on ambulation and strength training. Patient may need dietitian advice for weight loss once mental status improves. Subjective Subjective Patient did well overnight. No acute issues were reported. Patient's blood pressures have been marginal, but no boluses or interventions have been required. Patient subjectively feels improved compared to yesterday. Patient is still requiring 3 L nasal cannula to maintain saturations. Patient was seen by urology and no intervention is required at this time. Objective Data Objective Data Vital Signs: Vital Signs Temp Pulse Resp BP Pulse Ox O2 Del Method O2 Flow Rate 36.6 C 94 16 109/63 95 Nasal Cannula 3 06/24/23 07:00 06/24/23 07:00 06/24/23 07:00 06/24/23 07:00 06/24/23 07:00 06/24/23 07:00 06/24/23 07:00 Oxygen Flow Rate (L/min) 3 Oxygen Delivery Method Nasal Cannula Weight: 85.9 kg Body Mass Index (BMI) 29.7 Intake & Output: Intake and Output for Last 24 Hours 06/22/23 06/23/23 06/24/23 23:59 23:59 23:59 Intake Total 3282.5 / 3282.5 2998.75 / 2998.75 393.95 / 393.95 Output Total 2150 / 2150 350 / 350 Balance 3282.5 / 3282.5 848.75 / 848.75 43.95 / 43.95 Lab / Micro Data Attestation: I reviewed the patient's lab results. 06/24/23 03:10 06/24/23 03:10 Labs: Laboratory Results - last 24 hr 06/23/23 01:30: Hemoglobin A1c 7.1 H 06/23/23 06:54: POC Glucose 208 H 06/23/23 06:59: Sodium 140, Potassium 4.1, Chloride 110 H, Carbon Dioxide 20.0 L, Anion Gap 10, BUN 33 H, Creatinine 2.47 H, Estim Creat Clear Calc 27.03, Est GFR (MDRD) Af Amer 33 L, Est GFR (MDRD) Non-Af 27 L, BUN/Creatinine Ratio 13.4, Glucose 226 H, Calcium 7.9 L, Phosphorus 3.3, Magnesium 1.7, Total Bilirubin 0.70, AST 14 L, ALT 9 L, Alkaline Phosphatase 63, Total Protein 6.5, Albumin 2.6L, Globulin 3.9, Albumin/Globulin Ratio 0.7 L 06/23/23 12:57: POC Glucose 146 H 06/23/23 13:35: APTT 62.6 H 06/23/23 17:22: POC Glucose 113 H 06/23/23 18:20: APTT 62.4 H 06/23/23 20:10: POC Glucose 170 H 06/24/23 00:05: APTT 52.5 H 06/24/23 03:10: WBC 15.0 H, RBC 3.67 L, Hgb 10.7 L, Hct 33.9 L, MCV 92.4, MCH 29.2, MCHC 31.6 L D, RDW Std Deviation 55.4 H, RDW Coeff of Yanira 16.1 H, Plt Count 121 L, MPV 11.9, Sodium 141, Potassium 4.1, Chloride 113 H, Carbon Rppblhu20.0, Anion Gap 6, BUN 36 H, Creatinine 2.60 H, Estim Creat Clear Calc 26.49, Est GFR (MDRD) Af Amer 31 L, Est GFR (MDRD) Non-Af 26 L, BUN/Creatinine Ratio 13.8, Glucose 118 H, Calcium 8.0 L, Iron 17 L, TIBC 198 L, Iron Saturation 8.6 L, Ferritin 103, Total Bilirubin 0.60, AST 15, ALT 11 L, Alkaline Phosphatase 55,Total Protein 5.9 L, Albumin 2.2 L, Globulin 3.7, Albumin/Globulin Ratio 0.6 L, Vitamin B12 404, Folate 10.10 Micro: Microbiology 06/23/23 02:05 Nasal Secretion MRSA (PCR) - Final Meth. resistant Staph. aureus 06/22/23 20:25 Urine, Random Urine Culture - Preliminary Presumptive E. coli 06/23/23 02:05 Urine Catheter - Maddox Legionella Antigen - Final 06/23/23 02:05 Urine Catheter - Maddox Streptococcus pneumoniae Antigen (M - Final 06/22/23 20:55 Mucosa - Nasopharyngeal SARS-CoV-2, Influenza & RSV (PCR) - Final Radiography Diagnostic Testing: Radiology Impression Gallbladder Ultrasound 06/23/23 03:42 IMPRESSION: Hepatomegaly. Multiple gallstones. Mild right hydronephrosis. Electronically Signed: Nathaniel Araya MD at 15:44 EDT , Venous Doppler Study 06/23/23 08:10 Interpretation Summary Acute deep venous thrombosis left common femoral, femoral, and soleus veins. Patent, compressible bilateral great saphenous veins. Ordering Physician: Kulwinder De La O Referring Physician: Jenae Santamaria Performed By: Denice Hudson Mathieu Rhythm Strip Rhythm Strip: Sinus Rhythm Rate: 86 Ectopy: PVC(s) (Few to occasional) Physical Exam Const alert and oriented x3 Constitutional Narrative: RASS 0. Answers appropriately. General Appearance: cooperative HEENT normocephalic and head/scalp atraumatic Eyes PERRL, EOMs intact bilaterally and conjunctivae normal Neck no lymphadenopathy and supple Resp Auscultation: diminished lung sounds; Negative for rales, rhonchi or wheezes Cardio regular rate, regular rhythm, S1 normal heart sound, S2 normal heart sound, no murmurs, no rub and no gallops GI normal to inspection, nondistended, normoactive bowel sounds, soft to palpation and non-tender GI Narrative: Ileostomy noted. 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 No discharge noted. Neuro CN's II-XII intact bilaterally, moves all extremities and no focal motor deficits Sensorium / Orientation: alert Speech: speech normal Psych affect normal Charges/Coding Visit Charges Inpatient E&M: 27889 Subs Hosp L2 06/24/23 1610 <Electronically signed by Willian Cook MD> Cosigner Signature (if applicable): CC: ~ Signed [facility] Work Phone: [phone]) [phone] Progress note Author Kulwinder De La O [facility] June 24, 2023 2:41pm Note Date/Time June 24, 2023 1:2 1pm [facility] Medical Records Department [address] [place] [phone] Progress Note - Hospitalist 06/24/23 1320 MR#: [id number] Acct: [id number] Name: EMELIA JOHNSON Rep #:[id number] : 1950 73 From: Kulwinder bright DO PCP: Jenae Santamaria MD Status:ADM IN Location: ICU CVICU20 1-1 Reason for Visit Reason for Visit: Diagnoses Sepsis, unspecified organism (06/23/23) Unspecified infectious disease (06/23/23) Acidosis, unspecified (06/23/23) Other encephalopathy (06/23/23) Acute embolism and thrombosis of unspecified deep veins of unspecified lower extremity (06/23/23) Acute respiratory failure with hypoxia (06/23/23) Noninfective gastroenteritis and colitis, unspecified (06/23/23) Calculus of gallbladder without cholecystitis without obstruction (06/23/23) Acute kidney failure, unspecified (06/23/23) Urinary tract infection, site not specified (06/23/23) Severe sepsis without septic shock (06/23/23) Unspecified foreign body in respiratory tract, part unspecified causing other injury, initial encounter (06/23/23) Subjective Subjective No acute events overnight. Patient seen at bedside this morning. Nurse also atbedside changing his colostomy bag now. Patient was much more awake and alert appearing this morning compared to yesterday. He was alert and oriented x 3 andanswering all questions appropriately. He reported mild left lower extremity pain in both the upper and lower leg. Otherwise denied any other acute pain or discomfort. Denies any chest pain or shortness of breath at rest. Denies any abdominal pain or discomfort. No other acute concerns at this time. Objective Data Objective Data Vital Signs: Vital Signs Temp Pulse Resp BP Pulse Ox O2 Del Method O2 Flow Rate 97.8 F 86 20 H 95/56 L 96 Nasal Cannula 2 06/24/23 11:00 06/24/23 13:14 06/24/23 13:14 06/24/23 11:00 06/24/23 11:00 06/24/23 11:00 06/24/23 11:00 Oxygen Flow Rate (L/min) 2 Oxygen Delivery Method Nasal Cannula Weight: 85.9 kg Body Mass Index (BMI) 29.7 Intake & Output: Intake and Output for Last 24 Hours 06/22/23 06/23/23 06/24/23 23:59 23:59 23:59 Intake Total 3282.5 / 3282.5 2998.75 / 2998.75 692.95 / 692.95 Output Total 2150 / 2150 550 / 550 Balance 3282.5 / 3282.5 848.75 / 848.75 142.95 / 142.95 Lab / Micro Data 06/24/23 03:10 06/24/23 03:10 Labs: Laboratory Results - last 24 hr 06/23/23 12:57: POC Glucose 146 H 06/23/23 13:35: APTT 62.6 H 06/23/23 17:22: POC Glucose 113 H 06/23/23 18:20: APTT 62.4 H 06/23/23 20:10: POC Glucose 170 H 06/24/23 00:05: APTT 52.5 H 06/24/23 03:10: WBC 15.0 H, RBC 3.67 L, Hgb 10.7 L, Hct 33.9 L, MCV 92.4, MCH 29.2, MCHC 31.6 L D, RDW Std Deviation 55.4 H, RDW Coeff of Yanira 16.1 H, Plt Count 121 L, MPV 11.9, Sodium 141, Potassium 4.1, Chloride 113 H, Carbon Xajurts53.0, Anion Gap 6, BUN 36 H, Creatinine 2.60 H, Estim Creat Clear Calc 26.49, Est GFR (MDRD) Af Amer 31 L, Est GFR (MDRD) Non-Af 26 L, BUN/Creatinine Ratio 13.8, Glucose 118 H, Calcium 8.0 L, Iron 17 L, TIBC 198 L, Iron Saturation 8.6 L, Ferritin 103, Total Bilirubin 0.60, AST 15, ALT 11 L, Alkaline Phosphatase 55,Total Protein 5.9 L, Albumin 2.2 L, Globulin 3.7, Albumin/Globulin Ratio 0.6 L, Vitamin B12 404, Folate 10.10 06/24/23 07:20: APTT 65.2 H 06/24/23 09:23: POC Glucose 152 H 06/24/23 11:03: POC Glucose 175 H Micro: Microbiology 06/23/23 02:05 Urine Catheter - Maddox Urine Culture - Preliminary Presumptive E. coli 06/23/23 02:05 Urine Catheter - Maddox Legionella Antigen - Final 06/23/23 02:05 Urine Catheter - Maddox Streptococcus pneumoniae Antigen (M - Final 06/22/23 20:25 Urine, Random Urine Culture - Final Presumptive E. coli 06/23/23 02:05 Nasal Secretion MRSA (PCR) - Final Meth. resistant Staph. aureus 06/22/23 20:55 Mucosa - Nasopharyngeal SARS-CoV-2, Influenza & RSV (PCR) - Final Radiography Diagnostic Testing: Radiology Impression Gallbladder Ultrasound 06/23/23 03:42 IMPRESSION: Hepatomegaly. Multiple gallstones. Mild right hydronephrosis. Electronically Signed: Nathaniel Araya MD at 15:44 EDT , Rhythm Strip Rhythm Strip: Sinus Rhythm Rate: 86 Ectopy: PVC(s) (Few to occasional) Physical Exam Const alert and no apparent distress Constitutional Narrative: Elderly male, chronically ill-appearing, much more alert and oriented today, sitting up fairly comfortably in bed, conversing normally, in no acute distress. General Appearance: cooperative and comfortable HEENT normocephalic, head/scalp atraumatic, hearing grossly normal bilaterally and nasal mucous membranes and turbinates normal HEENT Narrative: Poor dentition. Eyes PERRL, EOMs intact bilaterally and conjunctivae normal Neck full ROM Chest inspection of chest normal Resp normal respiratory effort, normal air movement, no use of accessory muscles and clear to auscultation bilaterally Resp Narrative: Breathing comfortably on 2 L nasal cannula with good oxygen saturations. Mildlydecreased breath sounds bilaterally throughout, no wheezing or crackles noted. Cardio regular rate, regular rhythm, no murmurs and peripheral pulses 2+ throughout GI normal to inspection, nondistended, normoactive bowel sounds, soft to palpation,non-tender and non-distended GI Narrative: Colostomy noted with moderate amount of brown, normal-appearing stool output. Back/Spine normal ROM Extremity full ROM Extremity Narrative: +1 to +2 left lower extremity edema noted. No erythema noted. No tenderness topalpation. Skin no rashes or lesions noted Neuro no focal motor deficits and no sensory deficits noted Speech: speech normal Psych affect normal Assessment & Plan Assessment/Plan (1) Enteritis: (2) Encephalopathy due to infection: (3) Complicated urinary tract infection: (4) Severe sepsis with acute organ dysfunction: (5) FIOR (acute kidney injury): (6) DVT (deep venous thrombosis): PLAN: Plan Patient is a 73-year-old male who presented to [facility] ED on 06/22/2023 with altered mentation, nausea/vomiting and worsening shortness of breath. 1. Sepsis without shock suspected secondary to complicated UTI with possible aspiration pneumonia and possible gastroenteritis ? Presented with acute encephalopathy, borderline hypotension, tachycardia, WBC count 27, lactic acid 4.6, FIOR and suspected urinary source of infection with possible pneumonia and gastroenteritis as well; thus met sepsis criteria on admit. ? CT abdomen pelvis showed dilated small bowel concerning for enteritis versus ileus, moderate right hydroureteronephrosis with no ureteral calculus, urinary bladder wall thickening concerning for acute cystitis, left lower lobe consolidation concerning for pneumonia, cholelithiasis with stone in gallbladderneck. Chest x-ray with increased left basilar atelectasis versus infiltrate. Gallbladder ultrasound with multiple gallstones and hepatomegaly but no concern for cholelithiasis. ? Patient also noted on exam to have concern for left lower extremity cellulitisextending up into the lower abdomen. ? UA with 500 leukocyte esterase, negative nitrates, 4+ bacteria. MRSA nasal swab positive. Respiratory PCR panel negative. Urine culture growing greater than 100,000 present of E. coli, sensitivities pending. Blood cultures pending. ? Received approximately 30 cc/kg of IV fluids on admission. Per human resources generalist, lower clinical suspicion of acute aspiration as CT scan is more suggestive of atelectasis. CT scan findings do appear consistent with enteritis. ? Order Dispatcher Chief and infectious disease following. Continue IV vancomycin and Zosyn for now. Blood pressures continue to be low normal on 06/23, has not needed pressors. Follow-up blood cultures and final urine culture results. 2. Acute encephalopathy suspected secondary to sepsis, improved Presented with worsening confusion and lethargy per family. No focal neuro findings on exam, no recent falls, not on anticoagulation, low concern for intracranial pathology so no head imaging was obtained. Patient with mild to moderate improvement noted on hospital day 2 after heavy IV fluid resuscitation and treat with antibiotics for sepsis as noted above. ? Patient alert and oriented x 3 on 06/23, appears back to baseline. Continue toavoid deliriogenic medications. 3. Acute left lower extremity DVT with suspected PE, mild hypoxia Noted to have left lower extremity swelling on admission as well as new onset mild hypoxia. Venous duplex ultrasound on 06/22 showed acute DVT in left common femoral, femoral and soleus veins. Could not do CTA chest due to FIOR as noted below, but presume the patient does have PE as well given new oxygen requirement. Echo on 06/23 showed normal EF, no concerning findings. ? Continue heparin drip for now. Appreciate cardiology recommendations. Wean supplemental oxygen as able. 4. FIOR on CKD stage III Creatinine 2.37 on admit, baseline creatinine appears to be around 1.5-1.7. Suspect primarily prerenal FIOR with possibly some degree of ATN in setting of sepsis as noted above. Maddox catheter in place, has had adequate urine output to this point, no concern for postobstructive etiology. ? Creatinine 2.60 on 06/23, mildly worsened from previous. Has had last urine output in previous days. Continue to monitor BMP daily urine output. Can consider nephrology consult as needed. 5. 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 Previously followed with urology in [place]. Has history of chronic urinary retention with chronic Maddox catheter. Patient notedto have apparent erosion of the Maddox catheter through the penis with another opening in the penis noted that the catheter is coming from. ? Urology evaluated on 06/22. 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 Maddox catheter was exchanged on admission through the hypospadia. Urology noted that the catheter was draining well, recommended continuing catheter with no further changes in management at this time. Continue outpatient urology follow-up. 6. Chronic debility Lives with his daughter and has debility at baseline, uses a walker for ambulation and is currently being followed by home health care services. ? PT/OT/case patient following. Likely home with home health care versus SNF ondischarge. 7. Chronic anemia Hemoglobin 13.8 on admit, decreased to hemoglobin 10.0 on hospital day 2 after significant IV fluid resuscitation. On review of outpatient labs, appears that baseline hemoglobin is around 10-11. No active signs of bleeding noted. Iron studies consistent with iron deficiency anemia. B12 and folate normal. ? Trend CBC daily. Can consider IV iron infusions in the future once patient's infection has resolved. 8. Cholelithiasis ? Noted on CT abdomen pelvis and gallbladder ultrasound on admission. LFTs normal, no abdominal pain noted. No concern for acute cholecystitis. No GI or general surgery needs at this time, can establish with them in the outpatient setting as needed. Chronic medical conditions: ? Type 2 diabetes mellitus: Does not appear to be on any home medications. A1c 7.1% on admit. Okay for sliding scale insulin while inpatient. ? Hypertension: On home amlodipine. ? Hyperlipidemia: Continue home statin and fenofibrate. ? BPH with obstructive symptoms: Continue home finasteride. ? Hypothyroidism: TSH 7.75, free T4 low normal at 0.81 on admit. Continue home Synthroid. Recommend repeat labs in outpatient setting in 4 to 6 weeks. ? History of stroke with residual left-sided weakness: Continue home aspirin. ? History of rectal cancer s/p chemotherapy and radiation therapy and resection of left colon and entire rectum with permanent colostomy placement in 2020: Continue outpatient follow-up with oncology. ? History of PAD s/p aortobifemoral bypass in 2014: Continue home aspirin as above. ? History of AAA without rupture: Outpatient follow-up. DVT prophylaxis: Heparin drip CODE STATUS: Full code, verified Expected disposition: Home with home health care versus SNF, TBD Total clinical time spent by myself addressing the patient's medical issues, reviewing all the data, and collaborating with patient's care team: 35 minutes. Charges/Coding Visit Charges Inpatient E&M: 89848 Subs Hosp L2 06/24/23 1441 <Electronically signed by Kulwinder De La O DO> Cosigner Signature (if applicable): CC: ~ Signed [facility] Work Phone: 1(140) 331-899103-28-2024 Consult note Author Guilherme Tellez [facility] June 24, 2023 10:41am Note Date/Time June 24, 2023 10: 41am [facility] Medical Records Department [address] [place] [address] Consultation - Infectious Dx 06/24/23 1034 MR#: [id number] Acct: [id number] Name: EMELIA JOHNSON Rep #:[id number] : 1950 73 From: Guilherme mace MD PCP: Jenae Santamaria MD Status:ADM IN Location: ICU CVICU20 1-1 Assessment & Plan Assessment/Plan (1) Encephalopathy due to infection: (2) Acute hypoxemic respiratory failure: (3) Severe sepsis with acute organ dysfunction: PLAN: Concern for L sided pneumonia, enteritis, L foot/ankle cellulitis, and uti. Mental status improved. FIOR on CKD is worsening. UAgs neg. Cont empiric vanc/zosyn, will decrease zosyn to q12h. Will follow, thank you HPI Consult Data Date of Consult: 06/24/23 HPI Narrative Reason for Consultation: sepsis HPI Narrative: EMELIA JOHNSON, is a 73 M with h/o colon cancer and prior ileostomy, chronic foleyin place, presented 06/21 with 2-3 days confusion, n/v, dyspnea. Denies any urinary pain, no abd pain, no cough or SOB, no fever or chills. Reports severaldays L foot and ankle pain, redness, swelling. No drainage. Came to ED, admitted to icu, on vanc/zosyn, feeling better this AM. Full ROS performed and neg except as noted above. [facility] Medical History Colon cancer Home Medications amlodipine 10 mg tablet 10 mg PO DAILY 06/22/23 [History Last Taken Unknown] ferrous sulfate 325 mg (65 mg iron) tablet 325 mg PO DAILY 06/22/23 [History Last Taken Unknown] finasteride 5 mg tablet 5 mg PO DAILY 06/22/23 [History Last Taken Unknown] levothyroxine 175 mcg tablet 175 mcg PO 06/22/23 [History Last Taken Unknown] Allergy/AdvReac Type Severity Reaction Status Date / Time No Known Allergies Allergy Verified 06/22/23 20:14 Social History Smoking Status: Former smoker Physical Exam Const alert and no apparent distress Constitutional Narrative: oriented General Appearance: cooperative HEENT normocephalic and head/scalp atraumatic Eyes PERRL and EOMs intact bilaterally Neck supple and No nodes Resp normal air movement and clear to auscultation bilaterally Cardio regular rate and regular rhythm GI soft to palpation, non-tender and non-distended Extremity General Extremity: edema Skin Skin Narrative: L foot and ankle redness, warmth, swelling, mild tenderness Neuro CN's II-XII intact bilaterally Lab / Micro Data Attestation: I reviewed the patient's lab results. 06/24/23 03:10 06/24/23 03:10 Labs: Laboratory Results - last 24 hr 06/23/23 01:30: Hemoglobin A1c 7.1 H 06/23/23 12:57: POC Glucose 146 H 06/23/23 13:35: APTT 62.6 H 06/23/23 17:22: POC Glucose 113 H 06/23/23 18:20: APTT 62.4 H 06/23/23 20:10: POC Glucose 170 H 06/24/23 00:05: APTT 52.5 H 06/24/23 03:10: WBC 15.0 H, RBC 3.67 L, Hgb 10.7 L, Hct 33.9 L, MCV 92.4, MCH 29.2, MCHC 31.6 L D, RDW Std Deviation 55.4 H, RDW Coeff of Yanira 16.1 H, Plt Count 121 L, MPV 11.9, Sodium 141, Potassium 4.1, Chloride 113 H, Carbon Dmcftag18.0, Anion Gap 6, BUN 36 H, Creatinine 2.60 H, Estim Creat Clear Calc 26.49, Est GFR (MDRD) Af Amer 31 L, Est GFR (MDRD) Non-Af 26 L, BUN/Creatinine Ratio 13.8, Glucose 118 H, Calcium 8.0 L, Iron 17 L, TIBC 198 L, Iron Saturation 8.6 L, Ferritin 103, Total Bilirubin 0.60, AST 15, ALT 11 L, Alkaline Phosphatase 55,Total Protein 5.9 L, Albumin 2.2 L, Globulin 3.7, Albumin/Globulin Ratio 0.6 L, Vitamin B12 404, Folate 10.10 06/24/23 07:20: APTT 65.2 H 06/24/23 09:23: POC Glucose 152 H Micro: Microbiology 06/22/23 20:25 Urine, Random Urine Culture - Final Presumptive E. coli 06/23/23 02:05 Nasal Secretion MRSA (PCR) - Final Meth. resistant Staph. aureus Rhythm Strip Rhythm Strip: Sinus Rhythm Rate: 86 Ectopy: PVC(s) (Few to occasional) Imaging Radiology Impression Gallbladder Ultrasound 06/23/23 03:42 IMPRESSION: Hepatomegaly. Multiple gallstones. Mild right hydronephrosis. Electronically Signed: Nathaniel Araya MD at 15:44 EDT , Venous Doppler Study 06/23/23 08:10 Interpretation Summary Acute deep venous thrombosis left common femoral, femoral, and soleus veins. Patent, compressible bilateral great saphenous veins. Ordering Physician: Kulwinder De La O Referring Physician: Jenae Santamaria Performed By: Denice Hudson RVT 06/24/23 1041 <Electronically signed by Guilherme Tellez MD> Cosigner Signature (if applicable): CC: Jenae Santamaria MD; Dr. Gael Bourne MD; Dr. Willian Cook MD; Dr. Luke Mims DO; Dr. Naman Lowe DO; Dr. Sadiq Forte MD; Dr. Bo Damico MD; Dr. Fareed Hooker MD; Dr. Johnnie Logan MD; Dr. Dione Hopkins MD; Dr. Mary Brown MD; Dr. Cr Burrows MD; Dr. Guilherme Tellez MD; Dr. Satnam Heck MD; Dr. Anthony Taylor MD; Dr. Mata Williamson MD; Dr. Caitie Huddleston MD; Marcy Vang; Liliane Gonzalez NP~ Signed [facility] Work Phone: 1(723) 126-953903-28-2024 Progress note Author Kulwinder [facility] June 24, 2023 12:26am Note Date/Time June 23, 2023 11: 23am [facility] Medical Records Department [address] [place] [address] Progress Note - Hospitalist 06/23/23 1122 MR#: [id number] Acct: [id number] Name: EMELIA JOHNSON Rep #:[id number] : 1950 73 From: Kulwinder bright DO PCP: Jenae Santamaria MD Status:ADM IN Location: ICU CVICU20 1-1 Reason for Visit Reason for Visit: Diagnoses Sepsis, unspecified organism (06/23/23) Unspecified infectious disease (06/23/23) Acidosis, unspecified (06/23/23) Other encephalopathy (06/23/23) Acute respiratory failure with hypoxia (06/23/23) Noninfective gastroenteritis and colitis, unspecified (06/23/23) Calculus of gallbladder without cholecystitis without obstruction (06/23/23) Acute kidney failure, unspecified (06/23/23) Urinary tract infection, site not specified (06/23/23) Severe sepsis without septic shock (06/23/23) Unspecified foreign body in respiratory tract, part unspecified causing other injury, initial encounter (06/23/23) Subjective Subjective Patient admitted on the evening of 06/21 with multiple concerns including nausea/vomiting, shortness of breath and altered mentation. Patient had noted chronic Maddox catheter and UA was concerning for UTI, and patient's presentationwas overall concerning for sepsis with acute encephalopathy likely secondary to sepsis. He was admitted to the ICU for further management. Completed extensive chart review of patient's prior medical history on 06/22. Patient's past medical history is significant for stroke with residual left- sided weakness, rectal cancer s/p chemotherapy and radiation therapy with resection of left colon entire rectum and permanent colostomy placement in 08/2020, PAD s/p aortobifemoral bypass in 12/2013, urinary retention with chronicindwelling Maddox, AAA without rupture, type 2 diabetes mellitus, hypothyroidism and hypertension. Patient previously lived in [place] with his , but unfortunately his in December 2022. He moved from the [place] to [place] in January to live with his daughter. Patient established with a PCP with [facility] in 03/2023. [facility] and established with Oncology at [facility] in 04/2023. Per PCP note from 03/2023, was [place] He was found to have MRSA bacteremia presumed secondary to UTI. Endocarditis was ruled out during that admission andpatient was started on 6 weeks of daptomycin with plans for possible suppressivedoxycycline due to prior ABF bypass graft. He was also found to have atypical pneumonia during that admission. He ultimately was discharged to SNF after hospitalization for 6 weeks. PCP noted that patient uses a walker at baseline due to chronic debility. Home health care has been seeing him through [facility], last documented visit on 06/15. Patient notably has had labs done at outside hospitals recently. He had a creatinine of 1.56 in 04/2203, and repeat creatinine was 1.68 on 06/08/2023. His estimated GFR is around 40-50, consistentwith CKD stage III. With regard to his cancer history, CEA level of 4 on 05/01/2023. Plan per oncology is for a surveillance colonoscopy in the near future and surveillance CT scans going forward. Patient seen at bedside this morning in the ICU. He was having his venous duplex ultrasound of his lower extremities done. Patient was sitting up fairly comfortably in bed and in no acute distress during our encounter. He was fatigued appearing. He made appropriate eye contact with me when I asked him questions, but he was only able to tell me that he knows he is in the hospital but does not know what hospital he is in or what the month or year are. He currently denies any pain or discomfort. Denies any pain in the penis with his Maddox catheter. Denies any pain in his lower extremities. Denies any chest pain or shortness of breath at rest. Currently breathing comfortably on 2 L nasal cannula with good oxygen saturations. He denies any other acute concerns. Objective Data Objective Data Vital Signs: Vital Signs Temp Pulse Resp BP Pulse Ox O2 Del Method O2 Flow Rate 98.9 F 93 19 H 98/65 96 Nasal Cannula 3 06/23/23 08:00 06/23/23 11:00 06/23/23 11:00 06/23/23 11:00 06/23/23 11:00 06/23/23 11:00 06/23/23 11:00 Oxygen Flow Rate (L/min) 3 Oxygen Delivery Method Nasal Cannula Weight: 80.2 kg Body Mass Index (BMI) 27.6 Intake & Output: Intake and Output for Last 24 Hours 06/21/23 06/22/23 06/23/23 23:59 23:59 23:59 Intake Total 3282.5 / 3282.5 1952.5 / 1952.5 Output Total 500 / 500 Balance 3282.5 / 3282.5 1452.5 / 1452.5 Lab / Micro Data 06/23/23 01:30 06/23/23 06:59 Labs: Laboratory Results - last 24 hr 06/22/23 00:27: Lactic Acid 3.4 H* 06/22/23 20:25: WBC 27.7 H, RBC 4.83, Hgb 13.8, Hct 43.2, MCV 89.4, MCH 28.6, MCHC 31.9 L, RDW Std Deviation 49.7 H, RDW Coeff of Yanira 15.4 H, Plt Count 165, MPV 11.7, Immature Gran % (Auto) 1.300 H, Neut % (Auto) 91.7 H, Lymph % (Auto) 1.4 L, [place] % (Auto) 5.3, Eos % (Auto) 0.0, Baso % (Auto) 0.3, Absolute Neuts (auto) 25.4 H, Absolute Lymphs (auto) 0.40 L, Nucleated RBC % 0, Differential Comment SEE COMMENTS, Platelet Estimate ADEQUATE, Plt Morphology Comment LARGE, RBC Morphology N CHROM, Anisocytosis RARE, Macrocytosis RARE, Tear Drop Cells RARE, Ovalocytes RARE, Sodium 138, Potassium 4.1, Chloride 106, Carbon Dioxide 20.0 L, Anion Gap 12, BUN 32 H, Creatinine 2.37 H, Estim Creat Clear Calc 28.91,Est GFR (MDRD) Af Amer 35 L, Est GFR (MDRD) Non-Af 29 L, BUN/Creatinine Ratio 13.5, Glucose 224 H, Calcium 8.9, Total Bilirubin 0.60, AST 16, ALT 11 L, Alkaline Phosphatase 90, Total Protein 7.9, Albumin 3.2, Globulin 4.7 H, Albumin/Globulin Ratio 0.7 L, Urine Color Yellow, Urine Clarity Cloudy, Urine pH9.0, Ur Specific [place] 1.015, Urine Protein 30 H, Urine Glucose (UA) Normal, Urine Ketones Negative, Urine Occult Blood 250 H, Urine Nitrite Negative, Urine Bilirubin Negative, Urine Urobilinogen Normal, Ur Leukocyte Esterase 500 H, Urine RBC 10-25 SEEN, Urine WBC 10-25 SEEN, Ur Squamous Epith Cells 0 SEEN, Triple Phos Crystals 1+, Amorphous Sediment 1+, Urine Bacteria 4+, Urine Mucus 0SEEN 06/22/23 20:45: Lactic Acid 4.6 H* 06/22/23 22:20: PT 15.3 H, INR 1.2, APTT 30.0 06/23/23 01:30: WBC 17.1 H, RBC 3.49 L, Hgb 10.0 L, Hct 33.7 L, MCV 96.6 H D, MCH 28.7, MCHC 29.7 L D, RDW Std Deviation 56.4 H, RDW Coeff of Yanira 16.0 H, Plt Count 125 L, MPV 11.6, Immature Gran % (Auto) 0.700, Neut % (Auto) 95.2 H, Lymph% (Auto) 2.1 L, [place] % (Auto) 1.8, Eos % (Auto) 0.0, Baso % (Auto) 0.2, AbsoluteNeuts (auto) 16.2 H, Absolute Lymphs (auto) 0.36 L, Nucleated RBC % 0, Sodium 132 L, Potassium 3.3 L, Chloride 103, Carbon Dioxide 16.0 L, Anion Gap 13, BUN 25 H, Creatinine 2.11 H, Estim Creat Clear Calc 31.64, Est GFR (MDRD) Af Amer 40 L, Est GFR (MDRD) Non-Af 33 L, BUN/Creatinine Ratio 11.8, Glucose 604 H*, LacticAcid 2.7 H*, Calcium 6.2 L*, Phosphorus 2.0 L, Magnesium 1.3 L, Total Bilirubin 0.60, AST 12 L, ALT 8 L, Alkaline Phosphatase 52, Troponin I High Sens 18, TotalProtein 5.0 L, Albumin 2.0 L, Globulin 3.0, Albumin/Globulin Ratio 0.7 L, Vitamin B12 381, Folate 8.40, TSH 7.75 H 06/23/23 02:05: Urine Opiates Screen NEGATIVE, Urine Methadone Screen NEGATIVE, Ur Barbiturates Screen NEGATIVE, Ur Phencyclidine Scrn NEGATIVE, Ur AmphetaminesScreen NEGATIVE, MDMA (Ecstasy) Screen NEGATIVE, U Benzodiazepines Scrn NEGATIVE, Urine Cocaine Screen NEGATIVE, U Cannabinoids Screen NEGATIVE, Ur DrugScreen Comment 06/23/23 04:16: D-Dimer Quant (PE/DVT) 7.81 H*, Free T4 0.81 06/23/23 05:43: PT 15.3 H, INR 1.2, APTT 37.2 H 06/23/23 06:54: POC Glucose 208 H 06/23/23 06:59: Sodium 140, Potassium 4.1, Chloride 110 H, Carbon Dioxide 20.0 L, Anion Gap 10, BUN 33 H, Creatinine 2.47 H, Estim Creat Clear Calc 27.03, Est GFR (MDRD) Af Amer 33 L, Est GFR (MDRD) Non-Af 27 L, BUN/Creatinine Ratio 13.4, Glucose 226 H, Calcium 7.9 L, Phosphorus 3.3, Magnesium 1.7, Total Bilirubin 0.70, AST 14 L, ALT 9 L, Alkaline Phosphatase 63, Total Protein 6.5, Albumin 2.6L, Globulin 3.9, Albumin/Globulin Ratio 0.7 L Micro: Microbiology 06/23/23 02:05 Nasal Secretion MRSA (PCR) - Final 06/23/23 02:05 Urine Catheter - Maddox Legionella Antigen - Final 06/23/23 02:05 Urine Catheter - Maddxo Streptococcus pneumoniae Antigen (M - Final 06/22/23 20:55 Mucosa - Nasopharyngeal SARS-CoV-2, Influenza & RSV (PCR) - Final ABG Data ABG results: ABG 06/22/23 23:28 Specimen Type ART Sample Site L Brach pH 7.33 L Bicarbonate Actual 20.9 L Total CO2 22 Base Excess -5 L O2 Saturation 90 L O2 % 2.0 ABG pCO2 39.6 ABG pO2 63 L Mo Test Positive O2 Delivery Device Cannula Vent Mode Not entered Radiography Diagnostic Testing: Radiology Impression Chest X-Ray 06/22/23 21:05 IMPRESSION: Poor inspiration with some bibasilar atelectasis. Cardiomegaly. Electronically Signed: Roldan Kent MD at 21:44 EDT , Chest X-Ray 06/23/23 05:55 IMPRESSION: Increased left basilar atelectasis or infiltrate. Aspiration pneumonia not excluded. Electronically Signed: France Jalloh MD at 5:18 EDT , KUB X-Ray 06/23/23 05:55 IMPRESSION: Dilated small bowel not significantly changed compared to earlier CT. Electronically Signed: France Jalloh MD at 5:24 EDT , Venous Doppler Study 06/23/23 08:10 Interpretation Summary Acute deep venous thrombosis left common femoral, femoral, and soleus veins. Patent, compressible bilateral great saphenous veins. Ordering Physician: Kulwinder De La O Referring Physician: Jenae Santamaria Performed By: Denice Hudson Mathieu Abdomen/Pelvis CT 06/23/23 23:54 IMPRESSION: 1. Dilated small bowel. Pattern suggests at least partial distal small bowel obstruction, versus enteritis or ileus. 2. Cholelithiasis including a stone in the gallbladder neck. Ultrasound correlation may be helpful if clinically indicated. 3. Moderate right hydroureteronephrosis with no definite obstructing ureteral calculus identified. 4. Urinary bladder wall thickening may be consistent with acute cystitis. Bladder distended despite presence of the Maddox catheter. Atrophic left kidney without hydronephrosis. 5. Subcutaneous edema left abdominal wall/flank with more diffuse edema extending into the left lower extremity. Question cellulitis. 6. Left lower lobe consolidation suspected pneumonia. Minimal bilateral pleural effusions. 7. Aortobiiliac graft. 8. Soft tissue thickening presacral presumed postsurgical. Electronically Signed: France Jalloh MD at 2:27 EDT , Rhythm Strip Rhythm Strip: Sinus Tach Rate: 112 Ectopy: PVC(s) (Few to occasional) Physical Exam Const alert and no apparent distress Constitutional Narrative: Elderly male, chronically ill-appearing, noted to be very disheveled on admission but nursing staff cleaned up his appearance and he now appears fairly well-groomed, sitting up fairly comfortably in bed, moderately fatigued appearing, making appropriate eye contact with questions but confused and not answering questions appropriately, no acute distress. General Appearance: cooperative and comfortable HEENT normocephalic, head/scalp atraumatic, hearing grossly normal bilaterally and nasal mucous membranes and turbinates normal Eyes PERRL, EOMs intact bilaterally and conjunctivae normal Neck full ROM Chest inspection of chest normal Resp normal respiratory effort, normal air movement, no use of accessory muscles and clear to auscultation bilaterally Resp Narrative: Breathing comfortably on 2 L nasal cannula with good oxygen saturations. Mildlydecreased breath sounds bilaterally throughout, no wheezing or crackles noted. Cardio regular rate, regular rhythm, no murmurs and peripheral pulses 2+ throughout GI normal to inspection, nondistended, normoactive bowel sounds, soft to palpation,non-tender and non-distended GI Narrative: Colostomy noted with moderate amount of brown, normal-appearing stool output. Back/Spine normal ROM Extremity full ROM Extremity Narrative: +1 to +2 left lower extremity edema noted. No erythema noted. No tenderness topalpation. Skin no rashes or lesions noted Neuro no focal motor deficits and no sensory deficits noted Assessment & Plan Assessment/Plan (1) Enteritis: (2) Encephalopathy due to infection: (3) Complicated urinary tract infection: (4) Severe sepsis with acute organ dysfunction: (5) FIOR (acute kidney injury): (6) DVT (deep venous thrombosis): PLAN: Plan Patient is a 73-year-old male who presented to [facility] ED on 06/22/2023 with altered mentation, nausea/vomiting and worsening shortness of breath. 1. Sepsis without shock suspected secondary to complicated UTI with possible aspiration pneumonia and possible gastroenteritis Presented with acute encephalopathy, borderline hypotension, tachycardia, WBC count 27, lactic acid 4.6, FIOR and suspected urinary source of infection with possible pneumonia and gastroenteritis as well; thus met sepsis criteria on admit. CT abdomen pelvis showed dilated small bowel concerning for enteritis versus ileus, moderate right hydroureteronephrosis with no ureteral calculus, urinary bladder wall thickening concerning for acute cystitis, left lower lobe consolidation concerning for pneumonia, cholelithiasis with stone in gallbladderneck. UA with 500 leukocyte esterase, negative nitrates, 4+ bacteria. Chest x-ray with increased left basilar atelectasis versus infiltrate. Gallbladder ultrasound with multiple gallstones and hepatomegaly but no concern for cholelithiasis. MRSA nasal swab positive. Respiratory PCR panel negative. Urine culture growing greater than 100,000 present of E. coli, sensitivities pending. Blood cultures pending. Received approximately 30 cc/kg of IV fluids on admission. ? Order Dispatcher Chief following. Infectious disease consulted. Continue IV vancomycin and Zosyn for now. Patient with borderline hypotension on evening of 06/22, can initiate pressors as needed. Per human resources generalist, lower clinical suspicion of acuteaspiration as CT scan is more suggestive of atelectasis. CT scan findings do appear consistent with enteritis. Follow-up final urine culture and blood cultures. 2. Acute encephalopathy suspected secondary to sepsis, improving Presented with worsening confusion and lethargy per family. No focal neuro findings on exam, no recent falls, not on anticoagulation, low concern for intracranial pathology so no head imaging was obtained. Patient with mild to moderate improvement noted on hospital day 2 after heavy IV fluid resuscitation and treat with antibiotics for sepsis as noted above. ? Continue treatment as above. Continue to monitor closely. Avoid deliriogenicmedications. 3. Acute left lower extremity DVT with suspected PE, mild hypoxia Noted to have left lower extremity swelling on admission as well as new onset mild hypoxia. Venous duplex ultrasound on 06/22 showed acute DVT in left common femoral, femoral and soleus veins. Could not do CTA chest due to FIOR as noted below, but presume the patient does have PE as well given new oxygen requirement. ? Continue heparin drip that was started in the ED. Echo ordered. Cardiology consulted. Wean supplemental oxygen as able. 4. FIOR on CKD stage III Creatinine 2.37 on admit, baseline creatinine appears to be around 1.5-1.7. Suspect primarily prerenal FIOR with possibly some degree of ATN in setting of sepsis as noted above. Maddox catheter in place, has had adequate urine output to this point, no concern for postobstructive etiology. ? Monitor BMP daily and urine output. 5. 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 Previously followed with urology in [place]. Has history of chronic urinary retention with chronic Maddox catheter. Patient notedto have apparent erosion of the Maddox catheter through the penis with another opening in the penis noted that the catheter is coming from. ? Urology evaluated on 06/22. 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 Maddox catheter was exchanged on admission through the hypospadia. Urology noted that the catheter was draining well, recommended continuing catheter with no further changes in management at this time. Continue outpatient urology follow-up. 6. Chronic debility Lives with his daughter and has debility at baseline, uses a walker for ambulation and is currently being followed by home health care services. ? PT/OT/case patient consulted. 7. Chronic anemia Hemoglobin 13.8 on admit, decreased to hemoglobin 10.0 on hospital day 2 after significant IV fluid resuscitation. On review of outpatient labs, appears that baseline hemoglobin is around 10-11. No active signs of bleeding noted. ? Trend CBC daily. Will obtain iron studies, B12 and folate for further workup. 8. Cholelithiasis ? Noted on CT abdomen pelvis and gallbladder ultrasound on admission. LFTs normal, no abdominal pain noted. No concern for acute cholecystitis. No GI or general surgery needs at this time, can establish with them in the outpatient setting as needed. Chronic medical conditions: ? Type 2 diabetes mellitus: Does not appear to be on any home medications. A1c 7.1% on admit. Okay for sliding scale insulin while inpatient. ? Hypertension: On home amlodipine. ? Hyperlipidemia: Continue home statin and fenofibrate. ? BPH with obstructive symptoms: Continue home finasteride. ? Hypothyroidism: TSH 7.75, free T4 low normal at 0.81 on admit. Continue home Synthroid. Recommend repeat labs in outpatient setting in 4 to 6 weeks. ? History of stroke with residual left-sided weakness: Continue home aspirin. ? History of rectal cancer s/p chemotherapy and radiation therapy and resection of left colon and entire rectum with permanent colostomy placement in 2020: Continue outpatient follow-up with oncology. ? History of PAD s/p aortobifemoral bypass in 2013: Continue home aspirin as above. ? History of AAA without rupture: Outpatient follow-up. DVT prophylaxis: Heparin drip CODE STATUS: Full code, verified Expected disposition: TBD Total clinical time spent by myself addressing the patient's medical issues, reviewing all the data, and collaborating with patient's care team: 50 minutes. Charges/Coding Visit Charges Inpatient E&M: 92417 Subs Hosp L3 06/24/23 0026 <Electronically signed by Kulwinder De La O DO> Cosigner Signature (if applicable): CC: ~ Signed [facility] Work Phone: [phone]) 461-208203-27-2024 Consult note Author Willian Cook [facility] June 23, 2023 2:43pm Note Date/Time June 23, 2023 7:5 6am [facility] Medical Records Department [address] [place] [address] Consultation - Order Dispatcher Chief 06/23/23 0754 MR#: [id number] Acct: [id number] Name: EMELIA JOHNSON Rep #:[id number] : 1950 73 From: Willian Cook MD PCP: Jenae Santamaria MD Status:ADM IN Location: ICU CVICU20 1-1 Assessment & Plan Assessment/Plan (1) Severe sepsis with acute organ dysfunction: (2) Complicated urinary tract infection: (3) Encephalopathy due to infection: PLAN: Plan RECOMMENDATIONS: 1. Continue empiric antibiotics pending cultures 2. Await urology recommendations 3. Monitor for ongoing emesis 4. Wean oxygen as tolerated IMPRESSIONS: 1. Sepsis secondary to UTI Patient was significant penile defect and findings suggestive of UTI. Patient would be at high risk for acute cystitis given urologic defects. Patient is currently on empiric antibiotics. Will have to monitor patient to see if he requires pressor agents. Lower clinical suspicion of acute aspiration as an etiology, but this could be possible. CT of the abdomen does show evidence of enteritis, but CT scan is more suggestive of atelectasis. 2. Acute left lower extremity DVT Patient should be placed on a heparin drip for now. Hold off on Lovenox given renal dysfunction and possible need for urologic intervention. Patient may have an element of PE leading to current hypoxia and atelectasis. 3. Possible acute kidney injury Patient presented with an elevated creatinine of 2.37, but BUN is suggestive of intrinsic dysfunction. Patient has received significant volume resuscitation. Will continue to monitor. Obtain old records for comparison. 4. History of colon cancer/AAA/hypothyroidism/debility Complicates care, management and recovery. Patient will be seen by PT/OT to work on ambulation and strength training. Patient may need dietitian advice for weight loss once mental status improves. HPI Consult Data Date of Consult: 06/23/23 HPI Narrative HPI Narrative: EMELIA JOHNSON is a 73 M, with past medical history listed below, who presents to [facility] on 06/22/2023 secondary to altered mental status, tachycardia and tachypnea. Patient reportedly had been vomiting. Patient reportedly has an indwelling Maddox chronically secondary to radiation therapy for colon cancer. In the ER, patient was afebrile, but tachycardic at 114 bpm with a lower blood pressure of 95/66. Patient was initially 89% on room air, but responded to 2 L nasal cannula. Lab work shows a white blood cell count of 27.7, hemoglobin of 13.8 and platelets of 165. Coagulation studies were within normal limits. Chemistry showed a bicarbonate of 20, creatinine of 2.37 and lactate of 4.6. Patient did have a UA suggestive of a urinary tract infection. Blood gas showeda mild acute metabolic acidosis with increased AA gradient. Chest x-ray showed poor inspiration with bilateral atelectasis, left greater than right on my interpretation. Patient was given sepsis fluids, antibiotics and admitted to the intensive care unit. Since being in the intensive care unit, patient has had his Maddox changed. Patient did have significant findings of poor Maddox care per nursing. Patient also had his gunn shaved at his request. Patient did not require any pressors. On my evaluation, patient was able to be woken up, but is not a very good historian. Patient had reported that he has not felt well for a week. Patient has reported right lower extremity swelling for over a week and states that he believes he had an ultrasound earlier in the week that was negative. Unable to obtain review of systems. [facility] Medical History Colon cancer Home Medications amlodipine 10 mg tablet 10 mg PO DAILY 06/22/23 [History Last Taken Unknown] ferrous sulfate 325 mg (65 mg iron) tablet 325 mg PO DAILY 06/22/23 [History Last Taken Unknown] finasteride 5 mg tablet 5 mg PO DAILY 06/22/23 [History Last Taken Unknown] levothyroxine 175 mcg tablet 175 mcg PO 06/22/23 [History Last Taken Unknown] Allergy/AdvReac Type Severity Reaction Status Date / Time No Known Allergies Allergy Verified 06/22/23 20:14 Social History Smoking Status: Former smoker ROS ROS Narrative Unable to obtain secondary to be a poor historian Review of Systems ROS Unobtainable: due to mental status Physical Exam Const Constitutional Narrative: RASS -2 and quickly goes to sleep. Orientation / Consciousness: confused and lethargic HEENT normocephalic and head/scalp atraumatic HEENT Narrative: Dry mucous membranes Eyes PERRL Neck no lymphadenopathy and supple Resp Auscultation: rales left base and diminished lung sounds Cardio regular rate, regular rhythm, S1 normal heart sound, S2 normal heart sound, no murmurs, no rub and no gallops GI normal to inspection, nondistended, normoactive bowel sounds, soft to palpation and non-tender GI Narrative: Ileostomy noted. 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 06/23/23 01:30 06/23/23 06:59 Labs: Laboratory Results - last 24 hr 06/22/23 00:27: Lactic Acid 3.4 H* 06/22/23 20:25: WBC 27.7 H, RBC 4.83, Hgb 13.8, Hct 43.2, MCV 89.4, MCH 28.6, MCHC 31.9 L, RDW Std Deviation 49.7 H, RDW Coeff of Yanira 15.4 H, Plt Count 165, MPV 11.7, Immature Gran % (Auto) 1.300 H, Neut % (Auto) 91.7 H, Lymph % (Auto) 1.4 L, [place] % (Auto) 5.3, Eos % (Auto) 0.0, Baso % (Auto) 0.3, Absolute Neuts (auto) 25.4 H, Absolute Lymphs (auto) 0.40 L, Nucleated RBC % 0, Differential Comment SEE COMMENTS, Platelet Estimate ADEQUATE, Plt Morphology Comment LARGE, RBC Morphology N CHROM, Anisocytosis RARE, Macrocytosis RARE, Tear Drop Cells RARE, Ovalocytes RARE, Sodium 138, Potassium 4.1, Chloride 106, Carbon Dioxide 20.0 L, Anion Gap 12, BUN 32 H, Creatinine 2.37 H, Estim Creat Clear Calc 28.91,Est GFR (MDRD) Af Amer 35 L, Est GFR (MDRD) Non-Af 29 L, BUN/Creatinine Ratio 13.5, Glucose 224 H, Calcium 8.9, Total Bilirubin 0.60, AST 16, ALT 11 L, Alkaline Phosphatase 90, Total Protein 7.9, Albumin 3.2, Globulin 4.7 H, Albumin/Globulin Ratio 0.7 L, Urine Color Yellow, Urine Clarity Cloudy, Urine pH9.0, Ur Specific [place] 1.015, Urine Protein 30 H, Urine Glucose (UA) Normal, Urine Ketones Negative, Urine Occult Blood 250 H, Urine Nitrite Negative, Urine Bilirubin Negative, Urine Urobilinogen Normal, Ur Leukocyte Esterase 500 H, Urine RBC 10-25 SEEN, Urine WBC 10-25 SEEN, Ur Squamous Epith Cells 0 SEEN, Triple Phos Crystals 1+, Amorphous Sediment 1+, Urine Bacteria 4+, Urine Mucus 0SEEN 06/22/23 20:45: Lactic Acid 4.6 H* 06/22/23 22:20: PT 15.3 H, INR 1.2, APTT 30.0 06/23/23 01:30: WBC 17.1 H, RBC 3.49 L, Hgb 10.0 L, Hct 33.7 L, MCV 96.6 H D, MCH 28.7, MCHC 29.7 L D, RDW Std Deviation 56.4 H, RDW Coeff of Yanira 16.0 H, Plt Count 125 L, MPV 11.6, Immature Gran % (Auto) 0.700, Neut % (Auto) 95.2 H, Lymph% (Auto) 2.1 L, [place] % (Auto) 1.8, Eos % (Auto) 0.0, Baso % (Auto) 0.2, AbsoluteNeuts (auto) 16.2 H, Absolute Lymphs (auto) 0.36 L, Nucleated RBC % 0, Sodium 132 L, Potassium 3.3 L, Chloride 103, Carbon Dioxide 16.0 L, Anion Gap 13, BUN 25 H, Creatinine 2.11 H, Estim Creat Clear Calc 31.64, Est GFR (MDRD) Af Amer 40L, Est GFR (MDRD) Non-Af 33 L, BUN/Creatinine Ratio 11.8, Glucose 604 H*, LacticAcid 2.7 H*, Calcium 6.2 L*, Phosphorus 2.0 L, Magnesium 1.3 L, Total Bilirubin 0.60, AST 12 L, ALT 8 L, Alkaline Phosphatase 52, Troponin I High Sens 18, TotalProtein 5.0 L, Albumin 2.0 L, Globulin 3.0, Albumin/Globulin Ratio 0.7 L, Vitamin B12 381, Folate 8.40, TSH 7.75 H 06/23/23 02:05: Urine Opiates Screen NEGATIVE, Urine Methadone Screen NEGATIVE, Ur Barbiturates Screen NEGATIVE, Ur Phencyclidine Scrn NEGATIVE, Ur AmphetaminesScreen NEGATIVE, MDMA (Ecstasy) Screen NEGATIVE, U Benzodiazepines Scrn NEGATIVE, Urine Cocaine Screen NEGATIVE, U Cannabinoids Screen NEGATIVE, Ur DrugScreen Comment 06/23/23 04:16: D-Dimer Quant (PE/DVT) 7.81 H*, Free T4 0.81 06/23/23 05:43: PT 15.3 H, INR 1.2, APTT 37.2 H 06/23/23 06:54: POC Glucose 208 H Micro: Microbiology 06/23/23 02:05 Nasal Secretion MRSA (PCR) - Final 06/23/23 02:05 Urine Catheter - Maddox Legionella Antigen - Final 06/23/23 02:05 Urine Catheter - Maddox Streptococcus pneumoniae Antigen (M - Final 06/22/23 20:55 Mucosa - Nasopharyngeal SARS-CoV-2, Influenza & RSV (PCR) - Final ABG Data ABG results: ABG 06/22/23 23:28 Specimen Type ART Sample Site L Brach pH 7.33 L Bicarbonate Actual 20.9 L Total CO2 22 Base Excess -5 L O2 Saturation 90 L O2 % 2.0 ABG pCO2 39.6 ABG pO2 63 L Om Test Positive O2 Delivery Device Cannula Vent Mode Not entered Attestation: I personally reviewed and interpreted this ABG as follows: (See HPI) Rhythm Strip Rhythm Strip: Sinus Tach Rate: 112 Ectopy: PVC(s) (Few to occasional) Imaging Radiology Impression Chest X-Ray 06/22/23 21:05 IMPRESSION: Poor inspiration with some bibasilar atelectasis. Cardiomegaly. Electronically Signed: Roldan Kent MD at 21:44 EDT , Chest X-Ray 06/23/23 05:55 IMPRESSION: Increased left basilar atelectasis or infiltrate. Aspiration pneumonia not excluded. Electronically Signed: France Jalloh MD at 5:18 EDT , KUB X-Ray 06/23/23 05:55 IMPRESSION: Dilated small bowel not significantly changed compared to earlier CT. Electronically Signed: France Jalloh MD at 5:24 EDT , Abdomen/Pelvis CT 06/23/23 23:54 IMPRESSION: 1. Dilated small bowel. Pattern suggests at least partial distal small bowel obstruction, versus enteritis or ileus. 2. Cholelithiasis including a stone in the gallbladder neck. Ultrasound correlation may be helpful if clinically indicated. 3. Moderate right hydroureteronephrosis with no definite obstructing ureteral calculus identified. 4. Urinary bladder wall thickening may be consistent with acute cystitis. Bladder distended despite presence of the Maddox catheter. Atrophic left kidney without hydronephrosis. 5. Subcutaneous edema left abdominal wall/flank with more diffuse edema extending into the left lower extremity. Question cellulitis. 6. Left lower lobe consolidation suspected pneumonia. Minimal bilateral pleural effusions. 7. Aortobiiliac graft. 8. Soft tissue thickening presacral presumed postsurgical. Electronically Signed: France Jalloh MD at 2:27 EDT , Charges/Coding Visit Charges Inpatient E&M: 71137 Init Hosp L3 06/23/23 1443 <Electronically signed by Willian Cook MD> Cosigner Signature (if applicable): CC: Jenae Santamaria MD; Dr. Gael Bourne MD; Dr. Willian Cook MD; Dr. Luke Mims DO; Dr. Naman Lowe DO; Dr. Bo Damico MD; Dr. Fareed Hooker MD; Dr. Johnnie Logan MD; Dr. Dione Hopkins MD; Dr. Mary Brown MD; Dr.Pavan Stormy MD; Dr. Satnam Heck MD; Dr. Anthony Taylor MD; Dr. Mata Williamson MD; Dr. Caitie Huddleston MD; Marcy Vang; Liliane Gonzalez NP~ Signed [facility] Work Phone: 1(470) 863-668003-27-2024 Consult note Author Willian Sujatha [facility] June 23, 2023 2:43pm Note Date/Time June 23, 2023 11: 04am [facility] Medical Records Department [address] [place] [address] Pharmacokinetic/Renal -Consult 06/23/23 1103 MR#: [id number] Acct: [id number] Name: EMELIA JOHNSON Rep #:[id number] : 1950 73 From: Dinah Gerber PCP: Jenae Santamaria MD Status:ADM IN Y Location: ICU CVICU20 1-1 Consult Antibiotic Management Pharmacy has been consulted to manage selected antibiotic: Vancomycin Type of Intervention Type of Consult: New start Suspected Infection Suspected Infection: Sepsis and Other (uti) Labs Labs: Sodium 140 mmol/L (136-145) 06/23/23 06:59 Potassium 4.1 mmol/L (3.5-5.1) 06/23/23 06:59 Chloride 110 mmol/L (98-107) H 06/23/23 06:59 Carbon Dioxide 20.0 mmol/L (21.0-32.0) L 06/23/23 06:59 Anion Gap 10 (5-15) 06/23/23 06:59 BUN 33 mg/dL (7-18) H 06/23/23 06:59 Creatinine 2.47 mg/dL (0.70-1.30) H 06/23/23 06:59 Est GFR (MDRD) Af Amer 33 mL/min (>60) L 06/23/23 06:59 Est GFR (MDRD) Non-Af 27 mL/min (>60) L 06/23/23 06:59 BUN/Creatinine Ratio 13.4 RATIO (10-20) 06/23/23 06:59 Glucose 226 mg/dL (74-106) H 06/23/23 06:59 Microbiology Microbiology: Microbiology 06/23/23 02:05 Nasal Secretion MRSA (PCR) - Final 06/23/23 02:05 Urine Catheter - Maddox Legionella Antigen - Final 06/23/23 02:05 Urine Catheter - Maddox Streptococcus pneumoniae Antigen (M - Final 06/22/23 20:55 Mucosa - Nasopharyngeal SARS-CoV-2, Influenza & RSV (PCR) - Final Pharmacy Plan for Drug Dosing Pharmacy Plan for Drug Dosing: NEW START IV VANCOMYCIN Consulting Physician: SUJATHA Indication: SEPSIS/UTI Goal Trough: 15-20 MG/DL SrCr: 2.47 MG/DL (06/22) CrCl: 27 ML/MIN Comments: initial loading dose of 2000mg given 06/22 @ 1056 Vancomycin Dose: Will start 1000mg Q24H 06/23 @ 1100 and get a trough prior to 3rd total dose per policy. Pending Level: 06/25/23 @ 1030 Pharmacy Service will continue to monitor and adjust dosing as required. 06/23/23 1104 <Electronically signed by Dinah Gerber> Date _ Dinah Gerber 06/23/23 1443 <Electronically signed by Willian Cook MD> Cosigner Signature (if applicable): Date Willian Cook MD CC: ~ Signed [facility] Work Phone: 1(858) 403-710803-27-2024 Consult note Author Johnnie Logan [facility] June 23, 2023 2:36pm Note Date/Time June 23, 2023 2:3 3pm [facility] Medical Records Department [address] [place] [address] Consultation - Urology 06/23/23 1432 MR#: [id number] Acct: [id number] Name: EMELIA JOHNSON Rep #:[id number] : 1950 73 From: Johnnie Logan MD PCP: eJnae Santamaria MD Status:ADM IN Location: ICU CVICU20 1- HPI Consult Data Date of Consult: 06/23/23 HPI Narrative Reason for Consultation: Traumatic hypospadias HPI Narrative: EMELIA JOHNSON, is a 73 M who currently is in stepdown unit after sepsis, he does have a Maddox catheter in place and looks like he has a traumatic hypospadias andchronic Maddox catheter through the penis. At this point it is draining well there is no no problems with the catheter is just a chronic pressure issue from a chronic catheter is of the penis that has been on traction for a long time. No reason to change it no reason to offer any other intervention. Call with questions [facility] Medical History Colon cancer Home Medications amlodipine 10 mg tablet 10 mg PO DAILY 06/22/23 [History Last Taken Unknown] ferrous sulfate 325 mg (65 mg iron) tablet 325 mg PO DAILY 06/22/23 [History Last Taken Unknown] finasteride 5 mg tablet 5 mg PO DAILY 06/22/23 [History Last Taken Unknown] levothyroxine 175 mcg tablet 175 mcg PO 06/22/23 [History Last Taken Unknown] Allergy/AdvReac Type Severity Reaction Status Date / Time No Known Allergies Allergy Verified 06/22/23 20:14 Social History Smoking Status: Former smoker Lab / Micro Data 06/23/23 01:30 06/23/23 06:59 Labs: Laboratory Results - last 24 hr 06/22/23 00:27: Lactic Acid 3.4 H* 06/22/23 20:25: WBC 27.7 H, RBC 4.83, Hgb 13.8, Hct 43.2, MCV 89.4, MCH 28.6, MCHC 31.9 L, RDW Std Deviation 49.7 H, RDW Coeff of Yanira 15.4 H, Plt Count 165, MPV 11.7, Immature Gran % (Auto) 1.300 H, Neut % (Auto) 91.7 H, Lymph % (Auto) 1.4 L, [place] % (Auto) 5.3, Eos % (Auto) 0.0, Baso % (Auto) 0.3, Absolute Neuts (auto) 25.4 H, Absolute Lymphs (auto) 0.40 L, Nucleated RBC % 0, Differential Comment SEE COMMENTS, Platelet Estimate ADEQUATE, Plt Morphology Comment LARGE, RBC Morphology N CHROM, Anisocytosis RARE, Macrocytosis RARE, Tear Drop Cells RARE, Ovalocytes RARE, Sodium 138, Potassium 4.1, Chloride 106, Carbon Dioxide 20.0 L, Anion Gap 12, BUN 32 H, Creatinine 2.37 H, Estim Creat Clear Calc 28.91,Est GFR (MDRD) Af Amer 35 L, Est GFR (MDRD) Non-Af 29 L, BUN/Creatinine Ratio 13.5, Glucose 224 H, Calcium 8.9, Total Bilirubin 0.60, AST 16, ALT 11 L, Alkaline Phosphatase 90, Total Protein 7.9, Albumin 3.2, Globulin 4.7 H, Albumin/Globulin Ratio 0.7 L, Urine Color Yellow, Urine Clarity Cloudy, Urine pH9.0, Ur Specific [place] 1.015, Urine Protein 30 H, Urine Glucose (UA) Normal, Urine Ketones Negative, Urine Occult Blood 250 H, Urine Nitrite Negative, Urine Bilirubin Negative, Urine Urobilinogen Normal, Ur Leukocyte Esterase 500 H, Urine RBC 10-25 SEEN, Urine WBC 10-25 SEEN, Ur Squamous Epith Cells 0 SEEN, Triple Phos Crystals 1+, Amorphous Sediment 1+, Urine Bacteria 4+, Urine Mucus 0SEEN 06/22/23 20:45: Lactic Acid 4.6 H* 06/22/23 22:20: PT 15.3 H, INR 1.2, APTT 30.0 06/23/23 01:30: WBC 17.1 H, RBC 3.49 L, Hgb 10.0 L, Hct 33.7 L, MCV 96.6 H D, MCH 28.7, MCHC 29.7 L D, RDW Std Deviation 56.4 H, RDW Coeff of Yanira 16.0 H, Plt Count 125 L, MPV 11.6, Immature Gran % (Auto) 0.700, Neut % (Auto) 95.2 H, Lymph% (Auto) 2.1 L, [place] % (Auto) 1.8, Eos % (Auto) 0.0, Baso % (Auto) 0.2, AbsoluteNeuts (auto) 16.2 H, Absolute Lymphs (auto) 0.36 L, Nucleated RBC % 0, Sodium 132 L, Potassium 3.3 L, Chloride 103, Carbon Dioxide 16.0 L, Anion Gap 13, BUN 25 H, Creatinine 2.11 H, Estim Creat Clear Calc 31.64, Est GFR (MDRD) Af Amer 40L, Est GFR (MDRD) Non-Af 33 L, BUN/Creatinine Ratio 11.8, Glucose 604 H*, Hemoglobin A1c 7.1 H, Lactic Acid 2.7 H*, Calcium 6.2 L*, Phosphorus 2.0 L, Magnesium 1.3 L, Total Bilirubin 0.60, AST 12 L, ALT 8 L, Alkaline Phosphatase 52, Troponin I High Sens 18, Total Protein 5.0 L, Albumin 2.0 L, Globulin 3.0, Albumin/Globulin Ratio 0.7 L, Vitamin B12 381, Folate 8.40, TSH 7.75 H 06/23/23 02:05: Urine Opiates Screen NEGATIVE, Urine Methadone Screen NEGATIVE, Ur Barbiturates Screen NEGATIVE, Ur Phencyclidine Scrn NEGATIVE, Ur AmphetaminesScreen NEGATIVE, MDMA (Ecstasy) Screen NEGATIVE, U Benzodiazepines Scrn NEGATIVE, Urine Cocaine Screen NEGATIVE, U Cannabinoids Screen NEGATIVE, Ur DrugScreen Comment 06/23/23 04:16: D-Dimer Quant (PE/DVT) 7.81 H*, Free T4 0.81 06/23/23 05:43: PT 15.3 H, INR 1.2, APTT 37.2 H 06/23/23 06:54: POC Glucose 208 H 06/23/23 06:59: Sodium 140, Potassium 4.1, Chloride 110 H, Carbon Dioxide 20.0 L, Anion Gap 10, BUN 33 H, Creatinine 2.47 H, Estim Creat Clear Calc 27.03, Est GFR (MDRD) Af Amer 33 L, Est GFR (MDRD) Non-Af 27 L, BUN/Creatinine Ratio 13.4, Glucose 226 H, Calcium 7.9 L, Phosphorus 3.3, Magnesium 1.7, Total Bilirubin 0.70, AST 14 L, ALT 9 L, Alkaline Phosphatase 63, Total Protein 6.5, Albumin 2.6L, Globulin 3.9, Albumin/Globulin Ratio 0.7 L 06/23/23 13:35: APTT 62.6 H Micro: Microbiology 06/23/23 02:05 Nasal Secretion MRSA (PCR) - Final Meth. resistant Staph. aureus 06/22/23 20:25 Urine, Random Urine Culture - Preliminary Presumptive E. coli 06/23/23 02:05 Urine Catheter - Maddox Legionella Antigen - Final 06/23/23 02:05 Urine Catheter - Maddox Streptococcus pneumoniae Antigen (M - Final 06/22/23 20:55 Mucosa - Nasopharyngeal SARS-CoV-2, Influenza & RSV (PCR) - Final ABG Data ABG results: ABG 06/22/23 23:28 Specimen Type ART Sample Site L Brach pH 7.33 L Bicarbonate Actual 20.9 L Total CO2 22 Base Excess -5 L O2 Saturation 90 L O2 % 2.0 ABG pCO2 39.6 ABG pO2 63 L Mo Test Positive O2 Delivery Device Cannula Vent Mode Not entered Rhythm Strip Rhythm Strip: Sinus Tach Rate: 112 Ectopy: PVC(s) (Few to occasional) Imaging Radiology Impression Chest X-Ray 06/22/23 21:05 IMPRESSION: Poor inspiration with some bibasilar atelectasis. Cardiomegaly. Electronically Signed: Roldan Kent MD at 21:44 EDT , Chest X-Ray 06/23/23 05:55 IMPRESSION: Increased left basilar atelectasis or infiltrate. Aspiration pneumonia not excluded. Electronically Signed: France Jalloh MD at 5:18 EDT , KUB X-Ray 06/23/23 05:55 IMPRESSION: Dilated small bowel not significantly changed compared to earlier CT. Electronically Signed: France Jalloh MD at 5:24 EDT , Venous Doppler Study 06/23/23 08:10 Interpretation Summary Acute deep venous thrombosis left common femoral, femoral, and soleus veins. Patent, compressible bilateral great saphenous veins. Ordering Physician: Kulwinder De La O Referring Physician: Jenae Santamaria Performed By: Denice Hudson RVT Abdomen/Pelvis CT 06/23/23 23:54 IMPRESSION: 1. Dilated small bowel. Pattern suggests at least partial distal small bowel obstruction, versus enteritis or ileus. 2. Cholelithiasis including a stone in the gallbladder neck. Ultrasound correlation may be helpful if clinically indicated. 3. Moderate right hydroureteronephrosis with no definite obstructing ureteral calculus identified. 4. Urinary bladder wall thickening may be consistent with acute cystitis. Bladder distended despite presence of the Maddox catheter. Atrophic left kidney without hydronephrosis. 5. Subcutaneous edema left abdominal wall/flank with more diffuse edema extending into the left lower extremity. Question cellulitis. 6. Left lower lobe consolidation suspected pneumonia. Minimal bilateral pleural effusions. 7. Aortobiiliac graft. 8. Soft tissue thickening presacral presumed postsurgical. Electronically Signed: France Jalloh MD at 2:27 EDT , 06/23/23 1433 <Electronically signed by Johnnie Logan MD> Cosigner Signature (if applicable): CC: Jenae Santamaria MD; Dr. Gael Bourne MD; Dr. Willian Cook MD; Dr. Luke Mims DO; Dr. Naman Lowe DO; Dr. Bo Damico MD; Dr. Fareed Hooker MD; Dr. Johnnie Logan MD; Dr. Dione Hopkins MD; Dr. Mary Brown MD; Dr.Pavan Stormy MD; Dr. Satnam Heck MD; Dr. Anthony Taylor MD; Dr. Mata Williamson MD; Dr. Caitie Huddleston MD; Marcy Vang; Liliane Gonzalez NP~ Signed ADDENDUM by Dr. Johnnie Logan MD on 06/23/23 at 1436 Addendum Also in review of his CT scan he does have right hydronephrosis not sure what the causes catheter appears to be draining well I will change the catheter at the bedside to make sure it is not obstruction from the catheter. Does an atrophic left kidney and some mild right hydronephrosis etiology not clear no stones or or other definitive mass seen in the causing obstruction could be reflux. 06/23/23 1436<Electronically signed by Johnnie Logan MD> Cosigner Signature (if applicable): cc: Jenae Santamaria MD; Dr. Gael Bourne MD; Dr. Willian Cook MD; Dr. Luke Mims DO; Dr. Naman Lowe DO; Dr. Bo Damico MD; Dr. Fareed Hooker MD; Dr. Johnnie Logan MD; Dr. Dione Hopkins MD; Dr. Mary Brown MD; Dr.Pavan Stormy MD; Dr. Satnam Heck MD; Dr. Anthony Taylor MD; Dr. Mata Williamson MD; Dr. Caitie Huddleston MD; Marcy Vang; Liliane Gonzalez NP ~* Signed [facility] Work Phone: [phone]) 801-938403-27-2024 History and physical note Author Luke Salguero [facility] June 23, 2023 6:39am Note Date/Time June 23, 2023 12: 14am [facility] Medical Records Department [address] [place] [address] H&P Exam - Hospitalist 06/22/23 4607 MR#: [id number] Acct: [id number] Name: EMELIA JOHNSON Rep #:[id number] : 1950 73 From: Luke Castano DO PCP: Jenae Santamaria MD Status:ADM IN Location: ICU CVICU20 1- HPI - General General Date of Admission: 06/23/23 Date of Service: 06/22/23 Chief Complaint: Nausea, Vomiting, SOB and AMS. HPI Narrative EMELIA JOHNSON, is a 73 M with a past medical history of essential hypertension, hypothyroidism, overweight; with BMI of 29.3 this admission, history of former tobacco abuse, history of abdominal aortic aneurysm; s/p repair, BPH, iron deficiency anemia and history of colon cancer; status post ileostomy and radiation therapy with chronic indwelling Maddox with subsequent significant defect at the base of the Right side of his penis who presents to [facility] after his family noticed nausea, vomiting, shortness of breath and altered mental status. Mr. Johnson is not a fully reliable historian at this time as he is encephalopathic and lethargic so information was gathered from chart, medical staff and computer. According to the records his acute symptoms began approximately 2 to 3 days prior to admission with persistent vomiting and confusion. Details regarding fever, chills or diarrhea are not available at this time. Patient is still apparently a FULL CODE. In the ER he was noted to have a urinalysis grossly positive for acute cystitis; with microscopic hematuria in addition to significant lesion at the base of his penisdue to chronic indwelling Maddox with corresponding severe leukocytosis of 27.7 and lactic acidosis of 4.6 mmol/L present on admission consistent with suspectedsepsis complicated by clinical evidence of aspiration pneumonia with metabolic acidosis and acute hypoxic respiratory insufficiency compounded by LLE Cellulitis and laboratory evidence of suspected acute renal failure with serum creatinine of 2.37 mg/dL and BUN of 32 mg/dL present on admission (with no previous baseline labs available for comparison) with apparent Maddox trauma damaging the shaft of the penis and creating a wound at the Right side of the base of the penis all suspected to be combining to induce severe metabolic encephalopathy with ER physician asked to order a CT scan of the abdomen and pelvis to further assess for other acute pathologic changes in this patient withlimited ability to communicate and he was then admitted to the ICU for treatmentunder the sepsis protocol for a stay that is expected to extend beyond 48 hours. [facility] Medical History Colon cancer Home Medications amlodipine 10 mg tablet 10 mg PO DAILY 06/22/23 [History Last Taken Unknown] ferrous sulfate 325 mg (65 mg iron) tablet 325 mg PO DAILY 06/22/23 [History Last Taken Unknown] finasteride 5 mg tablet 5 mg PO DAILY 06/22/23 [History Last Taken Unknown] levothyroxine 175 mcg tablet 175 mcg PO 06/22/23 [History Last Taken Unknown] Allergy/AdvReac Type Severity Reaction Status Date / Time No Known Allergies Allergy Verified 06/22/23 20:14 Social History Smoking Status: Former smoker ROS ROS Narrative A full review of systems was not possible due to this patient's severe encephalopathy and acute critical illness. Review of Systems ROS Unobtainable: due to encephalopathy Vital Signs Vital Signs Vital Signs: 06/22/23 20:14 06/22/23 20:19 06/22/23 20:13 Temperature 98.2 F Temperature Source Temporal Pulse Rate 114 H 114 H Respiratory Rate 22 H 22 H Blood Pressure 95/66 120/68 Blood Pressure Mean 75 85 Pulse Ox 89 93 Oxygen Delivery Method Room Air Nasal Cannula Nasal Cannula Oxygen Flow Rate (L/min) 2 2 06/22/23 20:52 06/22/23 21:18 06/22/23 21:43 Temperature 97 F L 98 F Temperature Source Temporal Temporal Pulse Rate 107 H 105 H Respiratory Rate 23 H 26 H Blood Pressure 119/76 104/90 H Blood Pressure Mean 90 94 Pulse Ox 90 94 93 Oxygen Delivery Method Nasal Cannula Nasal Cannula Nasal Cannula Oxygen Flow Rate (L/min) 2 2 2 06/22/23 22:32 06/22/23 22:49 06/22/23 23:04 Temperature 97.3 F L 97.1 F L Temperature Source Temporal Temporal Pulse Rate 977 H 101 H 101 H Respiratory Rate 24 H 25 H 24 H Blood Pressure 109/70 121/68 H 117/68 Blood Pressure Mean 83 85 84 Pulse Ox 92 93 92 Oxygen Delivery Method Nasal Cannula Nasal Cannula Nasal Cannula Oxygen Flow Rate (L/min) 2 2 Weight Weight: 187 lb 2.759 oz Body Mass Index (BMI) 29.2 Physical Exam Const Constitutional Narrative: Patient is lethargic but arousable on nonrebreather mask with minimal use of accessory muscles and residual emesis present on his gunn. Orientation / Consciousness: confused and lethargic HEENT normocephalic, head/scalp atraumatic, hearing grossly normal bilaterally and moist oral mucous membranes Eyes PERRL Neck no lymphadenopathy and supple Resp Resp Narrative: Diminished throughout with coarse rhonchi and wheezing due to suspected recent aspiration. Cardio regular rate and regular rhythm Cardio Narrative: Tachycardia noted. GI normal to inspection, nondistended, normoactive bowel sounds, soft to palpation,non-tender and non-distended GI Narrative: Ileostomy noted. Abdomen is tympanitic. Extremity Extremity Narrative: Left lower extremity has marked edema and erythema from the knee distally. Skin Skin Narrative: Patient's Maddox catheter appears to have dissected down the anterior surface of his penis all the way to the base. Patient also has evidence of tinea cruris plus left lower extremity has marked edema and erythema from the knee distally. Neuro CN's II-XII intact bilaterally, moves all extremities and no focal motor deficits Sensorium / Orientation: awake, alert, oriented to person and oriented to place Speech: speech normal Psych affect normal Results Medical Records Data Attestation: I reviewed the patient's medical records Lab / Micro Data Attestation: I reviewed the patient's lab results. 06/22/23 20:25 06/22/23 20:25 Labs: Laboratory Results - last 24 hr 06/22/23 20:25: WBC 27.7 H, RBC 4.83, Hgb 13.8, Hct 43.2, MCV 89.4, MCH 28.6, MCHC 31.9 L, RDW Std Deviation 49.7 H, RDW Coeff of Yanira 15.4 H, Plt Count 165, MPV 11.7, Immature Gran % (Auto) 1.300 H, Neut % (Auto) 91.7 H, Lymph % (Auto) 1.4 L, [place] % (Auto) 5.3, Eos % (Auto) 0.0, Baso % (Auto) 0.3, Absolute Neuts (auto) 25.4 H, Absolute Lymphs (auto) 0.40 L, Nucleated RBC % 0, Differential Comment SEE COMMENTS, Platelet Estimate ADEQUATE, Plt Morphology Comment LARGE, RBC Morphology N CHROM, Anisocytosis RARE, Macrocytosis RARE, Tear Drop Cells RARE, Ovalocytes RARE, Sodium 138, Potassium 4.1, Chloride 106, Carbon Dioxide 20.0 L, Anion Gap 12, BUN 32 H, Creatinine 2.37 H, Estim Creat Clear Calc 28.91,Est GFR (MDRD) Af Amer 35 L, Est GFR (MDRD) Non-Af 29 L, BUN/Creatinine Ratio 13.5, Glucose 224 H, Calcium 8.9, Total Bilirubin 0.60, AST 16, ALT 11 L, Alkaline Phosphatase 90, Total Protein 7.9, Albumin 3.2, Globulin 4.7 H, Albumin/Globulin Ratio 0.7 L, Urine Color Yellow, Urine Clarity Cloudy, Urine pH9.0, Ur Specific [place] 1.015, Urine Protein 30 H, Urine Glucose (UA) Normal, Urine Ketones Negative, Urine Occult Blood 250 H, Urine Nitrite Negative, Urine Bilirubin Negative, Urine Urobilinogen Normal, Ur Leukocyte Esterase 500 H, Urine RBC 10-25 SEEN, Urine WBC 10-25 SEEN, Ur Squamous Epith Cells 0 SEEN, Triple Phos Crystals 1+, Amorphous Sediment 1+, Urine Bacteria 4+, Urine Mucus 0SEEN 06/22/23 20:45: Lactic Acid 4.6 H* 06/22/23 22:20: PT 15.3 H, INR 1.2, APTT 30.0 Micro: Microbiology 06/22/23 20:55 Mucosa - Nasopharyngeal SARS-CoV-2, Influenza & RSV (PCR) - Final ABG Data ABG results: ABG 06/22/23 23:28 Specimen Type ART Sample Site L Brach pH 7.33 L Bicarbonate Actual 20.9 L Total CO2 22 Base Excess -5 L O2 Saturation 90 L O2 % 2.0 ABG pCO2 39.6 ABG pO2 63 L Mo Test Positive O2 Delivery Device Cannula Vent Mode Not entered Rhythm Strip Rhythm Strip: Sinus Tach Rate: 112 Ectopy: PVC(s) (Few to occasional) Imaging Radiology Impression Chest X-Ray 06/22/23 21:05 IMPRESSION: Poor inspiration with some bibasilar atelectasis. Cardiomegaly. Electronically Signed: Roldan Kent MD at 21:44 EDT , [facility] Imaging Services [address] [place] [address] Abdomen/Pelvis without Cont MR#: [id number] Acct: [id number] Name: EMELIA JOHNSON Rep #: [id number] : 1950 M 73 From: France Jalloh MD PCP: Jenae Santamaria MD Status: ADM IN Study: Abdomen/Pelvis without Cont Date of Exam: 06/23/23 Exam# [id number] Ordering Dr: Garfield Chacon MD EXAM: CT Abdomen And Pelvis W/O Contrast Injection HISTORY: Sepsis, abdominal pain TECHNIQUE: Routine protocol CT abdomen and pelvis. IV Contrast: None.. Oral contrast: None. RADIATION DOSAGE (If Supplied By Facility): CTDIvol = ( 10.30 ) mGy, DLP = ( 932.75 ) mGycm Individualized dose optimization techniques were used for this CT. COMPARISON: None. LIMITATIONS: None. FINDINGS: LOWER CHEST: Patchy groundglass opacities in the left lower lobe. Dependent atelectasis in the right lower lobe. Minimal bilateral pleural effusions. Coronary artery calcifications. LIVER: Grossly unremarkable. GALLBLADDER AND BILIARY TREE: Multiple gallstones layering in the gallbladder, with a separate stone in the gallbladder neck. No definite inflammatory changes. PANCREAS: Grossly unremarkable. SPLEEN: Relatively small size with lobular contour and peripheral calcifications. ADRENAL GLANDS: Grossly unremarkable. KIDNEYS AND URETERS: Right kidney with moderate hydronephrosis and dilated ureter to the bladder. No definite calculi identified. Left kidney atrophic without hydronephrosis. PERITONEUM: No free air. No free fluid. BOWEL: Colostomy left midabdomen. Mildly dilated small bowel. Distal small bowel is decreased caliber. Transition is not clearly identified but may be in the right lower abdomen. There is soft tissue thickening in the region of the rectum with presacral thickening presumed postsurgical changes. APPENDIX: Not identified. VESSELS: Postsurgical changes with aortobiiliac graft. REPRODUCTIVE ORGANS: Grossly unremarkable URINARY BLADDER: Moderately distended. Maddox catheter in place. Mild bladder wall thickening. Bladder diverticulum posteriorly on the left. ABDOMINAL WALL: Subcutaneous edema and body wall especially along the left lower abdominal wall/flank area more marked diffuse edema left lower extremity extending to the proximal thigh with associated skin thickening. No definite localized collection. No air in the soft tissues. Prominent inguinal lymph nodes bilaterally. Also surgical clips in the inguinal regions. BONES: No acute abnormalities. Bilateral pars defects at L5 with grade 1 spondylolisthesis L5-S1 and degenerative changes CT/Abdomen/Pelvis without Cont IMPRESSION: 1. Dilated small bowel. Pattern suggests at least partial distal small bowel obstruction, versus enteritis or ileus. 2. Cholelithiasis including a stone in the gallbladder neck. Ultrasound correlation may be helpful if clinically indicated. 3. Moderate right hydroureteronephrosis with no definite obstructing ureteral calculus identified. 4. Urinary bladder wall thickening may be consistent with acute cystitis. Bladder distended despite presence of the Maddox catheter. Atrophic left kidney without hydronephrosis. 5. Subcutaneous edema left abdominal wall/flank with more diffuse edema extending into the left lower extremity. Question cellulitis. 6. Left lower lobe consolidation suspected pneumonia. Minimal bilateral pleural effusions. 7. Aortobiiliac graft. 8. Soft tissue thickening presacral presumed postsurgical. Electronically Signed: France Jalloh MD at 2:27 EDT , CC: Jenae Santamaria MD; Dr. Garfield Chacon MD ~ Payroll Analyst: Signed Assessment & Plan Assessment/Plan (1) Severe sepsis with acute organ dysfunction: (2) Complicated urinary tract infection: (3) Aspiration into respiratory tract: QUALIFIERS: Encounter type: initial encounter Qualified Code(s): T17.908A - Unspecified foreign body in respiratory tract, part unspecified causing other injury, initial encounter (4) Acute hypoxemic respiratory failure: (5) Acidosis, lactic: (6) FIOR (acute kidney injury): (7) Encephalopathy due to infection: (8) Cholelithiasis: QUALIFIERS: Biliary obstruction: without biliary obstruction Cholecystitis presence: without cholecystitis Cholelithiasis location: gallbladder Qualified Code(s): K80.20 - Calculus of gallbladder without cholecystitis without obstruction (9) Enteritis: PLAN: Plan 1. Sepsis with urinalysis grossly positive for acute cystitis; with microscopichematuria in addition to significant lesion as his Maddox has apparently dissected from the urinary meatus to the base of his penis due to chronic indwelling Maddox that is poorly managed with corresponding severe leukocytosis of 27.7 and lactic acidosis of 4.6 mmol/L present on admission with CT also positive for evidence of cholelithiasis - Admit to ICU for treatment under the sepsis protocol and placed on contact precautions. Continue IV Zosyn and add IVZyvox to cover MRSA pathogens with patient's skin lesions at the base of his penis and await culture and sensitivity data. Checked CT scan of the abdomen and pelvis to evaluate for possible urinary obstruction and/or abscess formationand now we will check gallbladder ultrasound as per radiologist's recommendation. Second lactate has dropped to 2.7 mmol/L after initial round oftreatment. Order Dispatcher Chief will be consulted to see this patient on-rounds in the AM with help appreciated in advance. Finally, we will consult the urologist on-call to evaluate this patient in the a.m. regarding his chronic wound due to apparent Maddox dissecting from the urinary meatus down the inferior surface of the penis to the base for further recommendations with help appreciated in advance. 2. Aspiration pneumonia with metabolic acidosis and acute hypoxic respiratory insufficiency with CT suggestive of enteritis, ileus or possible PSBO complicating #1 - Resume broad-spectrum antibiotics to cover nosocomial pathogens outlined #1. Continue supplemental oxygen and recheck ABG to evaluatefor possible improvement. Check KUB in the AM to evaluate for possible worsening PSBO. 3. Laboratory evidence of suspected acute renal failure with serum creatinine of 2.37 mg/dL and BUN of 32 mg/dL present on admission (with no previous baseline labs available for comparison) compounding #1 & #2 in the setting of known BPH - Give vigorous volume resuscitation and recheck BMP in the a.m. to assess response to above treatment. 4. Significant left lower extremity erythema and edema suspicious for cellulitis with possible DVT adding to the pathology of #1 - #3 - Check D-dimer and left lower extremity Doppler to confirm suspicion plus start empiric IV Heparin via DVT protocol. Patient on broad-spectrum antibiotics for #1 and #2. 5. Severe metabolic encephalopathy arising from #1 to #4 - Continue supportive care and monitor for potential improvement. Minimize [employer]ER-active medications. Check TSH, B12, folate and urine drug screen to evaluate for potential reversible causes of confusion. 6. History of colon cancer; status post ileostomy and radiation therapy with chronic indwelling Maddox with subsequent significant defect at the base of the Right side of his penis present on admission - Noted. 7. History of abdominal aortic aneurysm; s/p repair - Noted. CT pending. 8. Essential hypertension - Hold scheduled antihypertensives in light of multiple infections outlined above. 9. Hypothyroidism - Continue Synthroid IV and check TSH this admission. 10. Overweight; with BMI of 29.3 this admission - Weight loss will be recommended once patient's mental status improves. 11. History of former tobacco abuse - Noted. 12. Iron deficiency anemia - Stable. 13. DVT prophylaxis - Patient started on IV Heparin or #4. Total time: Approximately 95 minutes. Sepsis Attestation Sepsis Alert: Yes Sepsis Attestation: Agree w/Sepsis Date exam was performed: 06/23/23 Time exam was performed: 00:15 Possible Source of Sepsis: Pulmonary, Genitourinary and Skin/soft tissue Sepsis Organ Dysfunction Criteria Present: Creatinine > 2.0 mg/dL, Lactic Acid >2 mmol/L and New/Unexplained change in mental status Fluid Resuscitation Fluid resuscitation indicated?: Yes Fluid Resuscitation ordered: 30 ml/kg fluid bolus ordered Amount of fluid ordered: 3 Sepsis Note Date exam was performed: 06/23/23 Time exam was performed: 04:15 Sepsis Attestation: Sepsis re-evaluation was performed Response to fluids: Fluid responsive hypotension Charges/Coding Visit Charges Inpatient E&M: 37078 Init Hosp L3 06/23/23 0639 <Electronically signed by Luke Mims DO> Cosigner Signature (if applicable): CC: Jenae Santamaria MD; Dr. Luke Mims DO~ Signed [facility] Work Phone: 1(909) 834-122903-27-2024 Discharge summary Author Garfield Chacon [facility] June 22, 2023 11:55pm Note Date/Time June 22, 2023 9:4 1pm [facility] Medical Records Department [address] [place] [address] Emergency Department Summary 06/22/23 MR#: [id number] Acct: [id number] Name: EMELIA JOHNSON Rep #:[id number] : 1950 73 From: Garfield Chacon MD PCP: Jenae Santamaria MD Status:REG ER Location: ED ADDENDUM by Dr. Garfield Chacon MD on 06/22/23 at 2354 Case was discussed with Dr. Luke Lara. He requested a CAT scan. He was informed that patient has acute renal failure and contrast will not be given. P.o. is contraindicated as well since he has altered mental status and he already aspirated. Patient will be admitted to the ICU. 06/22/23 2354<Electronically signed by Garfield Chacon MD> Cosigner Signature (if applicable): cc: Jenae Santamaria MD ~* Signed HPI History of Present Illness Chief Complaint: Nausea/Vomiting Detail of Chief Complaint: Nausea vomiting, cough, shortness of breath Informant: spouse/S.O. and family Onset/Context/Timing Onset: - (Patient been ill for the past couple of days.) Context: Sudden Onset Timing: Continuous Quality: Please see HPI narrative. Location: Uncertain Current Severity: Mild Maximum Severity: Severe Worsened by: Activity Relieved by: Nothing Associated Symptoms Associated Symptoms: Limited information because of altered mental status Narrative Narrative: Patient is a 73-year-old male. He has history of iron deficiency anemia, hypertension and hypothyroidism. He is somnolent. He is confused. He is tachycardic and tachypneic as well as hypoxic. He is not on oxygen at home. Hehas been vomiting according to son and . 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 He also has history of abdominal aortic aneurysm according to son. Theaneurysms been repaired. He has had an indwelling Maddox for some time. Nurse informing that she does not feel comfortable removing it. Upon further inspection patient has a significant defect from the urethra to the base of the penis. And there are areas are closed off. The Maddox is presently coming out of the side of his penis on the right side. Prior similar symptoms: No Recent Illness/Hospitalization: No PFSH PFSH Medical History Colon cancer Home Medications amlodipine 10 mg tablet 10 mg PO DAILY 06/22/23 [History Last Taken Unknown] ferrous sulfate 325 mg (65 mg iron) tablet 325 mg PO DAILY 06/22/23 [History Last Taken Unknown] finasteride 5 mg tablet 5 mg PO DAILY 06/22/23 [History Last Taken Unknown] levothyroxine 175 mcg tablet 175 mcg PO 06/22/23 [History Last Taken Unknown] Allergy/AdvReac Type Severity Reaction Status Date / Time No Known Allergies Allergy Verified 06/22/23 20:14 Social History Smoking Status: Former smoker ROS ROS ED Review of Systems ROS Unobtainable: due to mental status Respiratory/Chest Respiratory/Chest: Reports cough and dyspnea Neurologic Neurologic: Reports weakness EXAM Physical Exam Const Vital Signs: 06/22/23 20:14 06/22/23 20:19 06/22/23 20:13 Temperature 98.2 F Temperature Source Temporal Pulse Rate 114 H 114 H Respiratory Rate 22 H 22 H Blood Pressure 95/66 120/68 Blood Pressure Mean 75 85 Pulse Ox 89 93 Oxygen Delivery Method Room Air Nasal Cannula Nasal Cannula Oxygen Flow Rate (L/min) 2 2 06/22/23 20:52 06/22/23 21:18 06/22/23 21:43 Temperature 97 F L 98 F Temperature Source Temporal Temporal Pulse Rate 107 H 105 H Respiratory Rate 23 H 26 H Blood Pressure 119/76 104/90 H Blood Pressure Mean 90 94 Pulse Ox 90 94 93 Oxygen Delivery Method Nasal Cannula Nasal Cannula Nasal Cannula Oxygen Flow Rate (L/min) 2 2 2 06/22/23 22:32 06/22/23 22:49 06/22/23 23:04 Temperature 97.3 F L 97.1 F L Temperature Source Temporal Temporal Pulse Rate 977 H 101 H 101 H Respiratory Rate 24 H 25 H 24 H Blood Pressure 109/70 121/68 H 117/68 Blood Pressure Mean 83 85 84 Pulse Ox 92 93 92 Oxygen Delivery Method Nasal Cannula Nasal Cannula Nasal Cannula Oxygen Flow Rate (L/min) 2 2 The vital signs at 2249 are inaccurate patient patient is not on a nonrebreathermask. He is on oxygen by nasal cannula. Positive well nourished and well developed Constitutional Narrative: Patient has minimal use of accessory muscles. He has what appears to be emesis on his gunn. General Appearance ED: well developed and pallor; Negative for cyanotic, diaphoretic or NAD HEENT Reports moist mucous membranes HEENT Narrative: Ears normal. Nares patent. Posterior pharynx is normal. Eyes PERRL and EOMs intact bilaterally General Eye ED: Negative for pale conjunctiva or scleral icterus Neck no lymphadenopathy, supple and no JVD Neck Narrative: Trachea is midline. There is no stridor. Chest Wall inspection of chest normal and palpation of chest normal Resp No normal respiratory effort and No clear to auscultation bilaterally Auscultation: rales bilateral lower and wheezes expiratory wheezes and throughout Cardio regular rhythm, S1 normal heart sound, S2 normal heart sound and no murmurs Rate: tachycardic GI normal to inspection, nondistended, normoactive bowel sounds and no masses; Negative for hepatosplenomegaly GI Narrative: Ileostomy tube noted. Abdomen is tympanitic. 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 Plan is not toremove this. This should be done by urologist and with possible cystoscopy. Back/Spine Back/Spine Narrative: Unable to determine Extremity General Extremety ED: Yes edema General Extremity: edema Neuro No oriented x3 and CN's II-XII intact bilaterally Sensorium / Orientation: Negative for alert Psych Negative for mental status grossly normal Skin no rashes or lesions noted and no wounds General Skin Exam: pallor; Negative for elasticity normal or jaundice Sepsis Attestation Sepsis Alert: Yes Sepsis Attestation: Agree w/Sepsis Date exam was performed: 06/22/23 Time exam was performed: 21:45 Sepsis Organ Dysfunction Criteria Present: Lactic Acid > 2 mmol/L and New/Unexplained change in mental status Fluid Resuscitation Fluid resuscitation indicated?: Yes Fluid Resuscitation ordered: 30 ml/kg fluid bolus ordered MDM MDM MDM Narrative Medical decision making narrative: With history of vomiting abnormal respiratory sounds wheezing and hypoxia concern patient aspirated. Will obtain chest x-ray to determine if there is an infiltrate. Patient has odor of urine. There is concern he has a urinary tractinfection as well. Sepsis workup was undertaken. EKG to rule out any acute ischemic changes. Appropriate blood work to assess for endorgan dysfunction. Spoke to and son since patient is unable to give adequate history. History & Record Review Discussion w/independent historian: Family and Significant other Lab Data Attestation: I reviewed the patient's lab results. Lab results narrative: White count is 27.7 thousand. Patient does have a shift. There is no bandemia. H&H is normal. Competence of metabolic panel is remarkable for a CO2 of 20 with an anion gap of 12. BUN and creatinine are 32 and 2.37. Estimated GFR 29. Glucose is elevated 224. Transaminases are normal. Lactate is 4.6. Patient will require a 30 cc/kg bolus. Labs: Laboratory Results - last 24 hr 06/22/23 06/22/23 06/22/23 20:25 20:45 22:20 WBC 27.7 H RBC 4.83 Hgb 13.8 Hct 43.2 MCV 89.4 MCH 28.6 MCHC 31.9 L RDW Std Deviation 49.7 H RDW Coeff of Yanira 15.4 H Plt Count 165 MPV 11.7 Immature Gran % (Auto) 1.300 H Neut % (Auto) 91.7 H Lymph % (Auto) 1.4 L [place] % (Auto) 5.3 Eos % (Auto) 0.0 Baso % (Auto) 0.3 Absolute Neuts (auto) 25.4 H Absolute Lymphs (auto) 0.40 L Nucleated RBC % 0 Differential Comment SEE COMMENTS Platelet Estimate ADEQUATE Plt Morphology Comment LARGE RBC Morphology N CHROM Anisocytosis RARE Macrocytosis RARE Tear Drop Cells RARE Ovalocytes RARE PT 15.3 H INR 1.2 APTT 30.0 Sodium 138 Potassium 4.1 Chloride 106 Carbon Dioxide 20.0 L Anion Gap 12 BUN 32 H Creatinine 2.37 H Estim Creat Clear Calc 28.91 Est GFR (MDRD) Af Amer 35 L Est GFR (MDRD) Non-Af 29 L BUN/Creatinine Ratio 13.5 Glucose 224 H Lactic Acid 4.6 H* Calcium 8.9 Total Bilirubin 0.60 AST 16 ALT 11 L Alkaline Phosphatase 90 Total Protein 7.9 Albumin 3.2 Globulin 4.7 H Albumin/Globulin Ratio 0.7 L Urine Color Yellow Urine Clarity Cloudy Urine pH 9.0 Ur Specific [place] 1.015 Urine Protein 30 H Urine Glucose (UA) Normal Urine Ketones Negative Urine Occult Blood 250 H Urine Nitrite Negative Urine Bilirubin Negative Urine Urobilinogen Normal Ur Leukocyte Esterase 500 H Urine RBC 10-25 SEEN Urine WBC 10-25 SEEN Ur Squamous Epith Cells 0 SEEN Triple Phos Crystals 1+ Amorphous Sediment 1+ Urine Bacteria 4+ Urine Mucus 0 SEEN ABG Data Attestation: I personally reviewed and interpreted this ABG as follows: Interpretation: ABG was obtained to assess for hypercapnia since he is somnolent. ABG results: pH 7.33, CO2 39.6, pO2 62.9, bicarb 20.9 with a base excess of -5. This revealsa mild metabolic acidosis with increased AA gradient. There is no evidence of hypercapnia. Suspect patient's altered mental status is due to infectious encephalopathy. Radiography Chest X-Ray - ED: 1 View (Limited study since it is portable slightly rotated and poor inspiratory volume. He does have evidence of what appears to be atelectasis. There is no obvious infiltrate or effusion. Heart size is borderline to slightly enlarged. Cardiac silhouette normal. Hilum is unremarkable. Osseous structu) and Read by ED Physician Diagnostic Testing: Clinical Impression(s) from Imaging Studies Chest X-Ray 06/22/23 21:05 IMPRESSION: Poor inspiration with some bibasilar atelectasis. Cardiomegaly. Electronically Signed: Roldan Kent MD at 21:44 EDT , Rhythm Strip Rhythm Strip: Sinus Tach Rate: 112 Ectopy: PVC(s) (Few to occasional) EKG Initial EKG: Attestation: I personally reviewed and interpreted this EKG as follows: Interpretation: Sinus Tachycardia (Rate is 106. There are premature ventricular beats noted. There were premature Fichter bleach noted on the monitor as well. TN interval is 152 ms. Cures duration 92 ms. QT duration 242ms. [place] is normal. There is no acute ischemic changes noted.) Management Discussion w/another healthcare provider: Hospitalist Treatment and Re-Evaluation :: Patient was treated with Zosyn which would cover aspiration as well as complicated nosocomial type urologic infection. Urine is consistent with infection. Will contact hospitalist for admission. Critical Care Time Critical Care Time: Yes Critical care time (excluding procedures): 30-74 minutes (34), Including time spent: (History, physical, documentation, discussion with and son, independent interpretation of laboratory results and treatment for sepsis), Discussing w/Patient &/or Family/Supervisor Production Department, Discussing w/Consultants (Hospitalist Dr. Lara) and Arranging Admission or Transfer Discharge Plan Triage Chief Complaint: Nausea/Vomiting ED Provider: Garfield Chacon Dx/Rx/DC Orders Clinical Impression: FIOR (acute kidney injury), Aspiration into respiratory tract, Severe sepsis with acute organ dysfunction, Complicated urinary tract infection, Acute hypoxemic respiratory failure, Encephalopathy due to infection, Acidosis, lactic Prescriptions: No Action levothyroxine 175 mcg tablet 175 mcg PO amlodipine 10 mg tablet 10 mg PO DAILY ferrous sulfate 325 mg (65 mg iron) tablet 325 mg PO DAILY finasteride 5 mg tablet 5 mg PO DAILY Primary Care Provider: Jenae Santamaria Referrals: Jenae Santamaria MD [Primary Care Provider] - Disposition Disposition: Acute Care Hospital [facility] What to do if you have Problems For any increased pain, shortness of breath, bleeding, nausea or vomiting, chestpain, or any unexpected problems, contact your Primary Care Provider. Call [employer] ([phone]) or report to the closest Emergency Room. Call 911 if necessary. 06/22/237 <Electronically signed by Garfield Chacon MD> Cosigner Signature (if applicable): CC: Jenae Santamaria MD ~ Signed [facility] Work Phone: 1(686) 164-757603-26-2024 Discharge summary Author Garfield Chacon [facility] June 22, 2023 11:55pm Note Date/Time June 22, 2023 9:4 1pm [facility] Medical Records Department [address] [place] [address] Emergency Department Summary 06/22/23 MR#: [id number] Acct: [id number] Name: EMELIA JOHNSON Rep #:[id number] : 1950 73 From: Garfield Chacon MD PCP: Jenae Santamaria MD Status:REG ER Location: ED ADDENDUM by Dr. Garfield Chacon MD on 06/22/23 at 2354 Case was discussed with Dr. Luke Lara. He requested a CAT scan. He was informed that patient has acute renal failure and contrast will not be given. P.o. is contraindicated as well since he has altered mental status and he already aspirated. Patient will be admitted to the ICU. 06/22/232353<Electronically signed by Garfield Chacon MD> Cosigner Signature (if applicable): cc: Jenae Sanatmaria MD ~* Signed HPI History of Present Illness Chief Complaint: Nausea/Vomiting Detail of Chief Complaint: Nausea vomiting, cough, shortness of breath Informant: spouse/S.O. and family Onset/Context/Timing Onset: - (Patient been ill for the past couple of days.) Context: Sudden Onset Timing: Continuous Quality: Please see HPI narrative. Location: Uncertain Current Severity: Mild Maximum Severity: Severe Worsened by: Activity Relieved by: Nothing Associated Symptoms Associated Symptoms: Limited information because of altered mental status Narrative Narrative: Patient is a 73-year-old male. He has history of iron deficiency anemia, hypertension and hypothyroidism. He is somnolent. He is confused. He is tachycardic and tachypneic as well as hypoxic. He is not on oxygen at home. Hehas been vomiting according to son and . 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 He also has history of abdominal aortic aneurysm according to son. Theaneurysms been repaired. He has had an indwelling Maddox for some time. Nurse informing that she does not feel comfortable removing it. Upon further inspection patient has a significant defect from the urethra to the base of the penis. And there are areas are closed off. The Maddox is presently coming out of the side of his penis on the right side. Prior similar symptoms: No Recent Illness/Hospitalization: No PFSH PFSH Medical History Colon cancer Home Medications amlodipine 10 mg tablet 10 mg PO DAILY 06/22/23 [History Last Taken Unknown] ferrous sulfate 325 mg (65 mg iron) tablet 325 mg PO DAILY 06/22/23 [History Last Taken Unknown] finasteride 5 mg tablet 5 mg PO DAILY 06/22/23 [History Last Taken Unknown] levothyroxine 175 mcg tablet 175 mcg PO 06/22/23 [History Last Taken Unknown] Allergy/AdvReac Type Severity Reaction Status Date / Time No Known Allergies Allergy Verified 06/22/23 20:14 Social History Smoking Status: Former smoker ROS ROS ED Review of Systems ROS Unobtainable: due to mental status Respiratory/Chest Respiratory/Chest: Reports cough and dyspnea Neurologic Neurologic: Reports weakness EXAM Physical Exam Const Vital Signs: 06/22/23 20:14 06/22/23 20:19 06/22/23 20:13 Temperature 98.2 F Temperature Source Temporal Pulse Rate 114 H 114 H Respiratory Rate 22 H 22 H Blood Pressure 95/66 120/68 Blood Pressure Mean 75 85 Pulse Ox 89 93 Oxygen Delivery Method Room Air Nasal Cannula Nasal Cannula Oxygen Flow Rate (L/min) 2 2 06/22/23 20:52 06/22/23 21:18 06/22/23 21:43 Temperature 97 F L 98 F Temperature Source Temporal Temporal Pulse Rate 107 H 105 H Respiratory Rate 23 H 26 H Blood Pressure 119/76 104/90 H Blood Pressure Mean 90 94 Pulse Ox 90 94 93 Oxygen Delivery Method Nasal Cannula Nasal Cannula Nasal Cannula Oxygen Flow Rate (L/min) 2 2 2 06/22/23 22:32 06/22/23 22:49 06/22/23 23:04 Temperature 97.3 F L 97.1 F L Temperature Source Temporal Temporal Pulse Rate 977 H 101 H 101 H Respiratory Rate 24 H 25 H 24 H Blood Pressure 109/70 121/68 H 117/68 Blood Pressure Mean 83 85 84 Pulse Ox 92 93 92 Oxygen Delivery Method Nasal Cannula Nasal Cannula Nasal Cannula Oxygen Flow Rate (L/min) 2 2 The vital signs at 2249 are inaccurate patient patient is not on a nonrebreathermask. He is on oxygen by nasal cannula. Positive well nourished and well developed Constitutional Narrative: Patient has minimal use of accessory muscles. He has what appears to be emesis on his gunn. General Appearance ED: well developed and pallor; Negative for cyanotic, diaphoretic or NAD HEENT Reports moist mucous membranes HEENT Narrative: Ears normal. Nares patent. Posterior pharynx is normal. Eyes PERRL and EOMs intact bilaterally General Eye ED: Negative for pale conjunctiva or scleral icterus Neck no lymphadenopathy, supple and no JVD Neck Narrative: Trachea is midline. There is no stridor. Chest Wall inspection of chest normal and palpation of chest normal Resp No normal respiratory effort and No clear to auscultation bilaterally Auscultation: rales bilateral lower and wheezes expiratory wheezes and throughout Cardio regular rhythm, S1 normal heart sound, S2 normal heart sound and no murmurs Rate: tachycardic GI normal to inspection, nondistended, normoactive bowel sounds and no masses; Negative for hepatosplenomegaly GI Narrative: Ileostomy tube noted. Abdomen is tympanitic. 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 Plan is not toremove this. This should be done by urologist and with possible cystoscopy. Back/Spine Back/Spine Narrative: Unable to determine Extremity General Extremety ED: Yes edema General Extremity: edema Neuro No oriented x3 and CN's II-XII intact bilaterally Sensorium / Orientation: Negative for alert Psych Negative for mental status grossly normal Skin no rashes or lesions noted and no wounds General Skin Exam: pallor; Negative for elasticity normal or jaundice Sepsis Attestation Sepsis Alert: Yes Sepsis Attestation: Agree w/Sepsis Date exam was performed: 06/22/23 Time exam was performed: 21:45 Sepsis Organ Dysfunction Criteria Present: Lactic Acid > 2 mmol/L and New/Unexplained change in mental status Fluid Resuscitation Fluid resuscitation indicated?: Yes Fluid Resuscitation ordered: 30 ml/kg fluid bolus ordered MDM MDM MDM Narrative Medical decision making narrative: With history of vomiting abnormal respiratory sounds wheezing and hypoxia concern patient aspirated. Will obtain chest x-ray to determine if there is an infiltrate. Patient has odor of urine. There is concern he has a urinary tractinfection as well. Sepsis workup was undertaken. EKG to rule out any acute ischemic changes. Appropriate blood work to assess for endorgan dysfunction. Spoke to and son since patient is unable to give adequate history. History & Record Review Discussion w/independent historian: Family and Significant other Lab Data Attestation: I reviewed the patient's lab results. Lab results narrative: White count is 27.7 thousand. Patient does have a shift. There is no bandemia. H&H is normal. Competence of metabolic panel is remarkable for a CO2 of 20 with an anion gap of 12. BUN and creatinine are 32 and 2.37. Estimated GFR 29. Glucose is elevated 224. Transaminases are normal. Lactate is 4.6. Patient will require a 30 cc/kg bolus. Labs: Laboratory Results - last 24 hr 06/22/23 06/22/23 06/22/23 20:25 20:45 22:20 WBC 27.7 H RBC 4.83 Hgb 13.8 Hct 43.2 MCV 89.4 MCH 28.6 MCHC 31.9 L RDW Std Deviation 49.7 H RDW Coeff of Yanira 15.4 H Plt Count 165 MPV 11.7 Immature Gran % (Auto) 1.300 H Neut % (Auto) 91.7 H Lymph % (Auto) 1.4 L [place] % (Auto) 5.3 Eos % (Auto) 0.0 Baso % (Auto) 0.3 Absolute Neuts (auto) 25.4 H Absolute Lymphs (auto) 0.40 L Nucleated RBC % 0 Differential Comment SEE COMMENTS Platelet Estimate ADEQUATE Plt Morphology Comment LARGE RBC Morphology N CHROM Anisocytosis RARE Macrocytosis RARE Tear Drop Cells RARE Ovalocytes RARE PT 15.3 H INR 1.2 APTT 30.0 Sodium 138 Potassium 4.1 Chloride 106 Carbon Dioxide 20.0 L Anion Gap 12 BUN 32 H Creatinine 2.37 H Estim Creat Clear Calc 28.91 Est GFR (MDRD) Af Amer 35 L Est GFR (MDRD) Non-Af 29 L BUN/Creatinine Ratio 13.5 Glucose 224 H Lactic Acid 4.6 H* Calcium 8.9 Total Bilirubin 0.60 AST 16 ALT 11 L Alkaline Phosphatase 90 Total Protein 7.9 Albumin 3.2 Globulin 4.7 H Albumin/Globulin Ratio 0.7 L Urine Color Yellow Urine Clarity Cloudy Urine pH 9.0 Ur Specific [place] 1.015 Urine Protein 30 H Urine Glucose (UA) Normal Urine Ketones Negative Urine Occult Blood 250 H Urine Nitrite Negative Urine Bilirubin Negative Urine Urobilinogen Normal Ur Leukocyte Esterase 500 H Urine RBC 10-25 SEEN Urine WBC 10-25 SEEN Ur Squamous Epith Cells 0 SEEN Triple Phos Crystals 1+ Amorphous Sediment 1+ Urine Bacteria 4+ Urine Mucus 0 SEEN ABG Data Attestation: I personally reviewed and interpreted this ABG as follows: Interpretation: ABG was obtained to assess for hypercapnia since he is somnolent. ABG results: pH 7.33, CO2 39.6, pO2 62.9, bicarb 20.9 with a base excess of -5. This revealsa mild metabolic acidosis with increased AA gradient. There is no evidence of hypercapnia. Suspect patient's altered mental status is due to infectious encephalopathy. Radiography Chest X-Ray - ED: 1 View (Limited study since it is portable slightly rotated and poor inspiratory volume. He does have evidence of what appears to be atelectasis. There is no obvious infiltrate or effusion. Heart size is borderline to slightly enlarged. Cardiac silhouette normal. Hilum is unremarkable. Osseous structu) and Read by ED Physician Diagnostic Testing: Clinical Impression(s) from Imaging Studies Chest X-Ray 06/22/23 21:05 IMPRESSION: Poor inspiration with some bibasilar atelectasis. Cardiomegaly. Electronically Signed: Roldan Kent MD at 21:44 EDT , Rhythm Strip Rhythm Strip: Sinus Tach Rate: 112 Ectopy: PVC(s) (Few to occasional) EKG Initial EKG: Attestation: I personally reviewed and interpreted this EKG as follows: Interpretation: Sinus Tachycardia (Rate is 106. There are premature ventricular beats noted. There were premature Fichter bleach noted on the monitor as well. TN interval is 152 ms. Cures duration 92 ms. QT duration 242ms. [place] is normal. There is no acute ischemic changes noted.) Management Discussion w/another healthcare provider: Hospitalist Treatment and Re-Evaluation :: Patient was treated with Zosyn which would cover aspiration as well as complicated nosocomial type urologic infection. Urine is consistent with infection. Will contact hospitalist for admission. Critical Care Time Critical Care Time: Yes Critical care time (excluding procedures): 30-74 minutes (34), Including time spent: (History, physical, documentation, discussion with and son, independent interpretation of laboratory results and treatment for sepsis), Discussing w/Patient &/or Family/Supervisor Production Department, Discussing w/Consultants (Hospitalist Dr. Lara) and Arranging Admission or Transfer Discharge Plan Triage Chief Complaint: Nausea/Vomiting ED Provider: Garfield Chacon Dx/Rx/DC Orders Clinical Impression: FIOR (acute kidney injury), Aspiration into respiratory tract, Severe sepsis with acute organ dysfunction, Complicated urinary tract infection, Acute hypoxemic respiratory failure, Encephalopathy due to infection, Acidosis, lactic Prescriptions: No Action levothyroxine 175 mcg tablet 175 mcg PO amlodipine 10 mg tablet 10 mg PO DAILY ferrous sulfate 325 mg (65 mg iron) tablet 325 mg PO DAILY finasteride 5 mg tablet 5 mg PO DAILY Primary Care Provider: Jenae Santamaria Referrals: Jenae Santamaria MD [Primary Care Provider] - Disposition Disposition: Acute Care Hospital [facility] What to do if you have Problems For any increased pain, shortness of breath, bleeding, nausea or vomiting, chestpain, or any unexpected problems, contact your Primary Care Provider. Call [facility] ([phone]) or report to the closest Emergency Room. Call 911 if necessary. 06/22/234 <Electronically signed by Garfield Chacon MD> Cosigner Signature (if applicable): CC: Jenae Santamaria MD ~ Signed [facility] Work Phone: 1(303) 891-176203-20-2024 Miscellaneous Notes* Telephone Encounter - Angelina Desai MA - 06/16/2023 2:43 PM EDT Marie Mott nurse form [facility] is requesting an physical signatureon visit note from 02.05.23 per medicare guidelines for maddox orders faxed to [phone]. If you have any other questions Marie can be reached at [phone]. Please advise [facility] Miscellaneous Notes* Telephone Encounter - Nadia Miranda RN - 06/11/2023 9:38 AM EDT Called patient, no answer. LM for him to return my call to discuss. Nadia Miranda RN * Telephone Encounter - Brian Cummings MD - 06/09/2023 10:20 PM EDT Please inform patient, no evidence of blood clots in the left leg. Please follow with PCP for possible cellulitis. Remind patient to schedule CT scans as ordered. Thanks, Brian Cummings MD documented [facility]-2024 Miscellaneous Notes* Telephone Encounter - Jenae Santamaria MD - 06/09/2023 1:05 PM EDT Called patient to discuss urinalysis. Patient currently asymptomatic and urine sample obtained fromfoley bag and so contaminated sample was run. Discussed increasing dose of synthroid but improvement in TSH. Will also repeat TSH in 1 month. Discussed staying hydrated given pre- renal FeNA. Jenae Santamaria MD documented [facility]24 History of Present illness Narrative* Suzy Pinto CT - 06/08/2023 9:00 AM EDT Radiology Service Progress Note PATIENT NAME: Emelia Johnson DATE OF SERVICE: June 08, 2023 TIME: 10:06 AM PATIENT IDENTITY VERIFICATION COMPLETED USING TWO (2) IDENTIFIERS: Name and Date of confirmedby patient verbally and Name and Date of confirmed by identification band. FALL SCREENING: Has the patient had 2 falls in the last year or 1 fall with injury or currently using an Ambulatory Assistive Device (Walker, Cane, Wheelchair, Crutches, etc.)? No PATIENT GENDER DATA: Male PATIENT RELEVANT IMPLANT DATA REVIEWED: Not Applicable PATIENT PRESENTS WITH AN IMPLANTABLE OR ATTACHED FIXED WING AIRCRAFT CREW CHIEF: na RADIOLOGY DEPARTMENT: Ultrasound PERIPHERAL IV DATA: Not applicable SIGNED BY: Suzy Pinto RDMS, RVMathieu June 08, 2023 10:06 AM documented in this encounter[facility]03-[facility]-2024 Miscellaneous Notes* Telephone Encounter - Kita Aguilar LPN - 06/03/2023 9:33 AM EST Rupali Lenore with [facility] called in requesting office visit notes from 02/05/23 for patient. Faxed [phone] done. Kita Aguilar LPN June 03, 2023 9:34 AM documented in this [facility]03-[facility]-2024 Miscellaneous Notes* Telephone Encounter - Jenae Santamaria MD - 05/28/2023 5:48 PM EST Attempted to call patient and LVM that if asymptomatic, then no indication for treating. Depending on sample, if urine is in maddox bag for multiple days, will have bacterial growth. Advised patient to update office if symptomatic and will try to call again some time on Wednesday. Jenae Santamaria MD * Telephone Encounter - Bethel Mitchell LPN - 05/28/2023 2:05 PM EST Patient had home health out today to change catheter. Noted dark cloudy urine with foul odor. Family reported prone to UTIs. She did leave a specimen cup for urine as family states they are getting other labs done soon. Please advise. Bethel Mitchell LPN documented in this [facility]02-29-2024 History of Present illness Narrative* Brian Cummings MD - 05/27/2023 1:49 PM EST INITIAL CONSULT Emelia Johnson 1950 May 27, 2023 Diagnosis: Stage IIA (pT3c N0 M0) rectal adenocarcinoma, 2019. s/p concurrent chemotherapy and radiation followed by abdominoperineal resection with permanent colostomy. Received 3 cycles of adjuvant FOLFOX, further treatment was canceled due to sepsis, ICU hospitalization and thereafter poor performance status. HPI: Emelia Johnson is a 73 year old male who presents today to establish oncology care for historyof stage IIA rectal cancer, diagnosed in 2019. He received treatment in [facility]. He has multiple comorbidities including CVA requiring [...] There is no evidence of local penelope spreador distant metastatic malignancy. 2. Severe left renal [...] to resect the mass transanally nor with theTamis port. Patient was therefore discussed regarding the role of low-anterior resection vs abdominoperineal resection. [facility] by Dr. Gordon Martinez. 08/09/2020 MRI Rectum- [...] and therefore adjuvant treatment had been held. Patient is accompanied by his son and daughter today. CT scans on 11/03/2022 showed no evidence of recurrence. Plan for colonoscopy. Reports new onset left lower extremity edema in the past 2-3 days. No unintentional weight loss, fever, headache, chest pain, shortness of breath, nausea, vomiting, abdominal pain, change in bowel movements. 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 90 tablet 1 albuterol HFA (PROVENTIL HFA) 90 mcg/actuation inhaler Inhale 1-2 Puffs as instructed four times a day as needed for wheezing/shortness of breath. 6.7 g 2 lisinopril (ZESTRIL) 5 mg tablet Take 1 tablet by mouth once daily. 90 tablet 1 tiotropium-olodaterol (STIOLTO RESPIMAT) 2.5-2.5 mcg/actuation Inhale 2 Puffs as instructed once daily. 4 g 2 Blood Pressure Test Kit-Large (Senscient BP MONITOR) 1 Each two times a day. 1 Each 0 ergocalciferol 50,000 unit capsule (VITAMIN D2, DRISDOL) Take 1 capsule by mouth one time a week. 12 capsule 0 levothyroxine (SYNTHROID) 175 mcg tablet Take 1 tablet by mouth daily before breakfast. 30 tablet 0 flash glucose sensor (FREESTYLE HEMA 14 DAY SENSOR) kit 1 Each four times daily. 1 Kit 2 iv contrast (will be provided with radiology test) CT ABD/PEL -Inject, intravenously, once for 1 dose.No IV access, insert saline lock prior to the beginning of sedation, infusion, injection of imaging exam. Discontinue saline lock post exam. If Pt. has a central line or IVAD, may access for administration according to line specific nursing protocol. Once exam is complete flush line and de-accessaccording to line specific nursing protocol in the CT contrast administration guidelines link. 1 Each 0 enteric contrast (will be provided with radiology test) For CT ABD/PEL W IVCON Routine order Administer, As Directed One Time Only, via Oral, Rectal, both Oral and Rectal, Enteric Tube, Stoma or Indwelling Catheter, Enteric Contrast as designated per enteric contrast guidelines 1 Each 0 rosuvastatin (CRESTOR) 20 mg tablet Take 20 mg by mouth daily at bedtime. finasteride (PROSCAR) 5 mg tablet Take 5 mg by mouth once daily. Fenofibrate 160 mg tablet Take 1 tablet by mouth once daily. 0 aspirin, enteric coated (ASPIR-LOW) 81 mg EC tablet Take 1 tablet by mouth once daily. 0 No current facility-administered medications for this visit. ALLERGIES Allergen Reactions Lipitor [Atorvastat* Other: See Comments body aches FAMILY HISTORY Problem Relation Age of Onset Diabetes Father Stroke ( age 89) Diabetes Mother Stroke ( age 88) Stroke Mother Diabetes Sister "Brain " ( age 64) Diabetes Brother other (Old Age) Maternal Grandmother age 98 Diabetes Maternal Grandfather No Ocular Disease No Family History Social History Tobacco Use Smoking status: Former Packs/day: 3.00 Years: 50.00 Additional pack years: 0.00 Total pack years: 150.00 Types: Cigars, Cigarettes Quit date: 10/27/2013 Years since quittin.5 Smokeless tobacco: Never Substance Use Topics Alcohol use: No Drug use: No I have confirmed and edited as necessary, the PFSH and ROS obtained by others on 05/27/2023. Review of Systems: All systems reviewed on 05/27/2023 with pertinent positives and negatives as outlined in HPI or interval history. 05/27/23 1339 BP: 110/73 Pulse: (!) 59 Temp: 36.2 C (97.2 F) TempSrc: Temporal SpO2: (!) 86% Weight: 78.9 kg (174 lb) Height: 170.2 cm (5' 7") Body mass index is 27.25 kg/m . Physical Exam: ECOG PS: 2 Pain Intensity: 2/10 General: Age-appropriate well developed. NAD. HEENT: Normocephalic, no sclera icterus. Neck: [...] and affect. Labs WBC (k/uL) Date Value 05/01/2023 7.69 RBC (m/uL) Date Value 05/01/2023 5.47 Hemoglobin (g/dL) Date Value 05/01/2023 15.4 Hematocrit (%) Date Value 05/01/2023 50.7 MCV (fL) Date Value 05/01/2023 92.7 MCH (pg) Date Value 05/01/2023 28.2 MCHC (g/dL) Date Value 05/01/2023 30.4 (L) RDW-CV (%) Date Value 05/01/2023 15.6 (H) Platelet Count (k/uL) Date Value 05/01/2023 137 (L) MPV (fL) Date Value 05/01/2023 12.1 Glucose (mg/dL) Date Value 05/01/2023 155 (H) BUN (mg/dL) Date Value 05/01/2023 20 Creatinine (mg/dL) Date Value 05/01/2023 1.56 (H) Sodium (mmol/L) Date Value 05/01/2023 138 Potassium (mmol/L) Date Value 05/01/2023 4.5 Chloride (mmol/L) Date Value 05/01/2023 101 CO2 (mmol/L) Date Value 05/01/2023 21 (L) Protein, Total (g/dL) Date Value 05/01/2023 8.1 (H) Albumin (g/dL) Date Value 05/01/2023 4.1 Calcium, Total (mg/dL) Date Value 05/01/2023 9.7 Alkaline Phosphatase (U/L) Date Value 05/01/2023 91 Bilirubin, Total (mg/dL) Date Value 05/01/2023 0.2 AST (U/L) Date Value 05/01/2023 19 ALT (U/L) Date Value 05/01/2023 16 Cholesterol, Total (mg/dL) Date Value 05/01/2023 117 Triglyceride (mg/dL) Date Value 05/01/2023 206 (H) Assessment/Plan: 1. Stage IIA (pT3c N0 M0) rectal adenocarcinoma, diagnosed in 2019. - s/p concurrent chemotherapy and radiation followed by abdominoperineal resection with permanent colostomy on 09/23/2020. - Received 3 cycles of adjuvant FOLFOX, further treatment was canceled due to sepsis and poor performance status. - CEA 4 on 05/01/23. Plan for surveillance colonoscopy. Schedule surveillance CT scans. - Discussed cancer survivorship care planning. 2. LLE edema. - Order STAT LLE US DVT (family requested to go to [facility]). - If no evidence of DVT, follow with PCP for possible cellulitis. 3. CKD stage 3. - Mildly elevated total protein. - Check SPEP and MPA. Follow up in 4 weeks. Call for questions or concerns. Brian Cummings MD I spent a total of 60 minutes on the date of the service which included preparing to see the patient, [id number] patient care, completing clinical documentation, obtaining and/or reviewing separately obtained history, performing a medically appropriate examination, counseling and educating the pat ient/family/caregiver, ordering medications, tests, or procedures, communicating with other HCPs (not separately reported), independently interpreting results (not separately reported), communicatingresults to the patient/family/caregiver, and care coordination (not separately reported). documented in this encounter[facility]02-29-[facility]24 History of Present illness Narrative* Leonora Paez PA-C - 05/27/2023 1:15 PM EST GASTROENTEROLOGY OUTPATIENT NEW OFFICE VISIT CC: Patient presents with: Consult: History of colon cancer HPI: Emelia Johnson is a 73 year old male who presents for Consult (History of colon cancer). Dx'd in 2019 or 2019. S/p hemicoloectomy. Pt has BM through the bag. No abd pain. No bloody stool in the bag. Pt changes bag nightly. Once a in a while may have to do it twice a day. Says constancy changes btwn liquid and soft. NSAID use: none Unexplained weight loss: weight stable Take Blood thinners: ASA daily Bowel Habits: daily, Current Outpatient Medications Medication Sig FERROUS SULFATE, BULK, MISC amLODIPine (NORVASC) 10 mg tablet Take 1 tablet by mouth once daily. albuterol HFA (PROVENTIL HFA) 90 mcg/actuation inhaler Inhale 1-2 Puffs as instructed four times a day as needed for wheezing/shortness of breath. lisinopril (ZESTRIL) 5 mg tablet Take 1 tablet by mouth once daily. tiotropium-olodaterol (STIOLTO RESPIMAT) 2.5-2.5 mcg/actuation Inhale 2 Puffs as instructed once daily. Blood Pressure Test Kit-Large (Senscient CHOICE BP MONITOR) 1 Each two times a day. ergocalciferol 50,000 unit capsule (VITAMIN D2, DRISDOL) Take 1 capsule by mouth one time a week. levothyroxine (SYNTHROID) 175 mcg tablet Take 1 tablet by mouth daily before breakfast. flash glucose sensor (FREESTYLE HEMA 14 DAY SENSOR) kit 1 Each four times daily. iv contrast (will be provided with radiology test) CT ABD/PEL -Inject, intravenously, once for 1 dose.No IV access, insert saline lock prior to the beginning of sedation, infusion, injection of imaging exam. Discontinue saline lock post exam. If Pt. has a central line or IVAD, may access for administration according to line specific nursing protocol. Once exam is complete flush line and de-accessaccording to line specific nursing protocol in the CT contrast administration guidelines link. enteric contrast (will be provided with radiology test) For CT ABD/PEL W IVCON Routine order Administer, As Directed One Time Only, via Oral, Rectal, both Oral and Rectal, Enteric Tube, Stoma or Indwelling Catheter, Enteric Contrast as designated per enteric contrast guidelines rosuvastatin (CRESTOR) 20 mg tablet Take 20 mg by mouth daily at bedtime. finasteride (PROSCAR) 5 mg tablet Take 5 mg by mouth once daily. Fenofibrate 160 mg tablet Take 1 tablet by mouth once daily. aspirin, enteric coated (ASPIR-LOW) 81 mg EC tablet Take 1 tablet by mouth once daily. No current facility-administered medications for this visit. PAST MEDICAL HISTORY Diagnosis Date Abdominal aneurysm without mention of rupture Aneurysm - Abdominal Aorta Atherosclerosis of twenty-nine palms arteries of the extremities with intermittent claudication ASO - Extremities & Claudication CAD (coronary artery disease) Coronary artery [...] ( age 88) Stroke Mother Diabetes Sister "Brain " ( age 64) Diabetes Brother other (Old Age) Maternal Grandmother age 98 Diabetes Maternal Grandfather No Ocular Disease No Family History Social History Tobacco Use Smoking status: Former Packs/day: 3.00 Years: 50.00 Additional pack years: 0.00 Total pack years: 150.00 Types: Cigars, Cigarettes Quit date: 10/27/2013 Years since quittin.5 Smokeless tobacco: Never Substance Use Topics Alcohol use: No Drug use: No ALLERGIES Allergen Reactions Lipitor [Atorvastat* Other: See Comments body aches GI SPECIFIC ROS: Difficulty swallowing / foods sticking in throat: sometimes but pt had a stroke. Heartburn: No Hoarseness: No Chronic cough: coughing, especially when eaitng - copd Regurgitation: No Chest pain: No Filling up quickly at meals: No Loss of appetite: No Nausea: No Vomiting: No Abdominal pain: No Recent change in bowel movements: No Bloody or black, bowel movements: No Constipation: No Diarrhea: No Night sweats, fever, chills: No PHYSICAL EXAMINATION: BP 123/82 Pulse 98 Ht 170.2 cm (5' 7") Wt 74.8 kg (165 lb) BMI 25.84 kg/m GENERAL APPEARANCE: Well appearing, alert, in no acute distress, well-hydrated, well nourished.. SKIN: Skin color, texture, turgor normal, no suspicious rashes or lesions. EYES: Anicteric sclera. Extraocular movements are intact. . NECK: Supple, no adenopathy; thyroid symmetric, normal size. LUNGS: Wheezing. HEART: RRR without murmur, gallop, or rubs. No ectopy. ABDOMEN: Abdomen soft, non-tender, non distended. Bowel sounds normal. .stoma is beefy red EXTREMITIES: No deformities, edema, skin discoloration, clubbing or cyanosis. NEUROLOGIC: Gait normal. Sensation and strength grossly intact.. [facility] Oncology History: Patient has a history of multiple comorbidities including CVA requiring Coumadin therapy. Patient complained of recurrent rectal bleeding, diarrhea without abdominal pains or weight loss. 01/05/2020- Colonoscopy examination, Dr. Reddy. Patient was found to have a rectal prolapse a palpable mass starting approximately 5 cm, firm, somewhat thick. Mass extended from 5 cm to approximately 10 cm with 2-3 cm with multiple biopsies were obtained 01/05/2020- Final pathology: Rectal mass biopsy villous adenoma with extensive severe dysplasia and microscopic foci suspicious for invasive adenocarcinoma, low grade (grades 1-2 of 3). 02/27/2020- Colonoscopy- Dr. Reddy- Rectal masses extending from anal verge approximately 5-6 cm. Multiple biopsies obtained. 02/27/2020 Surgical pathology- RECTUM, BIOPSY: MODERATELY DIFFERENTIATED INFILTRATING ADENOCARCINOMA. 03/11/2020- Initial diagnosis rectal cancer 09/23/2020- Exploratory laparotomy, mobilization of left colon and splenic flexure, resection of left colon and entire rectum with intersphincteric abdominoperineal rectal resection and excision, omental pedicle flap, creation of end colostomy, comprehensive adhesiolysis. 04/23/2022 CT ABD/PELVIS: Postoperative changes of distal colon resection with descending colostomy. There is no bowel obstruction or evidence of tumor recurrence. Prominent soft tissue in the presacral region is relatively unchanged and could represent post surgical and/or post therapeutic changes. Chronic severe bladder wall thickening suggesting chronic cystitis. Associated small bladder diverticulum is again noted. Severe chronic left renal atrophy likely due to renovascular insufficiency. ASCVD with mild aneurysmal dilatation of the mid abdominal aorta with postoperative changes of aortobifemoral bypass grafting. Uncomplicated cholelithiasis. Labs 05/01/23 CEA- elevated 4.0 CBC and CMP unremarkable ASSESSMENT AND PLAN: Impression: Shellie is a 73 y/o male who presents to establish care. Pmhx includes CAD, AAA, CKD stage3. Hx of stage 2 colon CA. S/p resection of left colon and entire rectum and colostomy 2020. Pt also had chemo therapy in 2020. Pt is currently on surveillance. Recent CT abd pel showed no evidence of tumor recurrence. Pt has no GI complaints today. F/u prn Will discuss care with a doctor ASSESSMENT/PLAN: 1. History of colon cancer - ICD9: V10.05, ICD10: Z85.038 (primary diagnosis) - plan to get pt scheduled for a screening c-scope 2. 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HCC) - ICD9: V44.3, ICD10: Z93.3 3. Elevated CEA - ICD9: 795.81, ICD10: R97.0 - seeing heme onc Leonora Paez PA-C I spent a total of 20 minutes on the date of the service which included preparing to see the patient, [id number] patient care, completing clinical documentation, obtaining and/or reviewing separately obtained history, performing a medically appropriate examination, counseling and educating the pat ient/family/caregiver, and communicating with other HCPs (not separately reported). documented in this encounter[facility]02-29-[facility]24 Nurse Note* Stephanie Anthony MA - 05/27/2023 1:09 PM EST Patient had a colectomy 2020 he moved here from [place] and needs to establish care. documented in this encounterUc [facility] Center02-16-2024 History of Present illness Narrative* Maddie Jackson, REGINE - 05/14/2023 4:02 PM EST 1. Type 2 diabetes mellitus without retinopathy (HCC) Risk of diabetic changes and vision loss can be minimized by tight control of blood sugar, blood pressure, and cholesterol levels. Educated patient to continue care with primary care doctor and/or it intern to maintain optimum levels as they are important to avoid ocular complications. Encouraged patient to call the office immediately with any changes to vision or visual concerns. Advised to not wait until the next scheduled exam. 2. Combined forms of age-related cataract of both eyes +mild visual significance Monitor 3. Punctate keratitis, bilateral Recommended gel nightly and artificial tears 2-3x daily 4. Hypermetropia, bilateral 5. Regular astigmatism of both eyes Finalized spec rx- minimal change Follow-up in 1 year for diabetic eye exam Maddie Jackson, REGINE May 14, 2023 4:02 PM documented in this encounterUc [facility] Center02-16-2024 Instructions* Patient Instructions* Maddie Jackson, OD - 05/14/2023 3:59 PM EST Use Systane Complete or Refresh Relieva 2-3 times daily Use Systane, Refresh or Blink gel nightly before bed in both eyes documented in this encounterUc [facility] Center01-10-2024 History of Present illness Narrative* Jenae Santamaria MD - 04/07/2023 3:09 PM EST Images from the original note were not included. [facility] [address] [place] [address] Date of Evaluation: 2023 Patient Name: Emelia Johnson : 1950 Chief Complaint: Patient presents with: New Patient Nursing Intake: There are no exam notes on file for this visit. Subjective HPI Mr. Johnson is a 72 year old male PMH of T2DM, stroke with residual L sided weakness, rectal cancer s/p chemotherapy and radiation therapy with resection of L colon and entire rectum with intersphincteric abdominoperineal resection and permanent colostomy in 08/2020, AAA without rupture and PAD s/p aortobifemoral bypass in 12/2013, urinary retention with indwelling maddox, hypothyroidism, HTN, who presents to establish care with me. Patient recently moved from [place] to [place] to live with daughter following 's this past December. Patient currently present at [facility] with son and daughter. Per patient, he notes recently establishing with urology for his urinary retention. There are plansfor monthly maddox exchanges. He notes that he has had maddox catheter in for the past 3 years. He notes that he has started to gain some weight and has been trying to continue to work with PT/OT as hewas previously living at SNF and returned home for about 2 weeks prior to coming to [place]. Patient notes that his appetite is better and has been doing well avoiding falls by using his walker consistently. Patient was recently admitted from 11/03/2022 to 11/16/2022 and discharged to SNF for 6 weeks. He had been admitted for MRSA bacteremia 2/2 to UTI. Endocarditis was ruled out during admission and patient was started on 6 weeks of daptomycin with plans for possible suppressive doxycycline due to prior ABF bypass graft. During the admission, he was also found to have atypical pneumonia. During his admission, he was discontinued on insulin. Review of Systems Constitutional: Negative for appetite change, chills, fever and unexpected weight change. HENT: Negative for trouble swallowing. Eyes: Negative for redness. Respiratory: Negative for shortness of breath. Cardiovascular: Negative for chest pain. Gastrointestinal: Negative for abdominal pain, blood in stool, constipation, diarrhea, nausea and vomiting. Endocrine: Negative for cold intolerance and heat intolerance. Genitourinary: Positive for difficulty urinating. Negative for flank pain. Musculoskeletal: Positive for arthralgias. Negative for gait problem and neck pain. Skin: Negative for wound. Neurological: Positive for weakness (left sided). Negative for dizziness, light- headedness and headaches. Hematological: Does not bruise/bleed easily. Psychiatric/Behavioral: Positive for confusion (some short term memory issues). PAST MEDICAL HISTORY Diagnosis Date Abdominal aneurysm without mention of rupture Aneurysm - Abdominal Aorta Atherosclerosis of twenty-nine palms arteries of the extremities with intermittent claudication ASO - Extremities & Claudication CAD (coronary artery disease) Coronary artery disease Cancer (HCC) CKD (chronic kidney disease) stage 3, GFR 30-59 ml/min (HCC) Depression Diabetes (HCC) Dyslipidemia Former smoker [...] Date BYP OTH/THN VEIN AORTOBIFEMORAL 2013 aortobifem PAST SURGICAL HISTORY OF Right 02/13/2020 CEA FAMILY HISTORY Problem Relation Age of Onset Diabetes Father Stroke ( age 89) Diabetes Mother Stroke ( age 88) Stroke Mother Diabetes Brother Diabetes Sister "Brain " ( age 64) Diabetes Maternal Grandfather other (Old Age) Maternal Grandmother age 98 Social History Tobacco Use Smoking status: Former Packs/day: 3.00 Years: 50.00 Additional pack years: 0.00 Total pack years: 150.00 Types: Cigars, Cigarettes Quit date: 10/27/2013 Years since quittin.4 Smokeless tobacco: Never Substance Use Topics Alcohol use: No Drug use: No Current Outpatient Medications Medication Sig iv contrast (will be provided with radiology test) CT ABD/PEL -Inject, intravenously, once for 1 dose.No IV access, insert saline lock prior to the beginning of sedation, infusion, injection of imaging exam. Discontinue saline lock post exam. If Pt. has a central line or IVAD, may access for administration according to line specific nursing protocol. Once exam is complete flush line and de-accessaccording to line specific nursing protocol in the CT contrast administration guidelines link. enteric contrast (will be provided with radiology test) For CT ABD/PEL W IVCON Routine order Administer, As Directed One Time Only, via Oral, Rectal, both Oral and Rectal, Enteric Tube, Stoma or Indwelling Catheter, Enteric Contrast as designated per enteric contrast guidelines rosuvastatin (CRESTOR) 20 mg tablet Take 20 mg by mouth daily at bedtime. levothyroxine (SYNTHROID) 150 mcg tablet Take 150 mcg by mouth once daily. finasteride (PROSCAR) 5 mg tablet Take 5 mg by mouth once daily. amLODIPine (NORVASC) 10 mg tablet Take 10 mg by mouth once daily. Fenofibrate 160 mg tablet Take 1 tablet by mouth once daily. aspirin, enteric coated (ASPIR-LOW) 81 mg EC tablet Take 1 tablet by mouth once daily. lisinopril (ZESTRIL) 5 mg tablet Take 1 tablet by mouth once daily. flash glucose sensor (FREESTYLE HEMA 14 DAY SENSOR) kit 1 Each four times daily. No current facility-administered medications for this visit. I have confirmed and edited as necessary the chief complaint, medications, past medical, family andsocial histories obtained by others. Objective BP 115/73 Pulse 100 Resp 16 Ht 5' 7" (1.70m) Wt 154 lb (69.9kg) SpO2 97% BMI 24.11 kg/(m^2). Physical Exam Vitals reviewed. Constitutional: General: He is not in acute distress. Appearance: Normal appearance. He is normal weight. He is ill-appearing (chronically). He is not toxic-appearing or diaphoretic. HENT: Head: Normocephalic and atraumatic. Right Ear: Tympanic membrane, ear canal and external ear normal. Left Ear: Tympanic membrane, ear canal and external ear normal. Nose: Nose normal. Mouth/Throat: Mouth: Mucous membranes are moist. Pharynx: Oropharynx is clear. No oropharyngeal exudate or posterior oropharyngeal erythema. Eyes: General: No scleral icterus. Extraocular Movements: [...] soft. Tenderness: There is no abdominal tenderness. Comments: Stoma appears pink and healthy Musculoskeletal: General: Normal range of motion. Cervical back: Normal range of motion and neck supple. No tenderness. Right lower leg: No edema. Left lower leg: No edema. Lymphadenopathy: Cervical: No cervical adenopathy. Skin: General: Skin is warm and dry. Coloration: Skin is not jaundiced. Neurological: Mental Status: He is alert and oriented to person, place, and time. Psychiatric: Mood and Affect: Mood normal. Behavior: Behavior normal. Thought Content: Thought content normal. Judgment: Judgment normal. Data Reviewed: Most recent labs and imaging results. ASSESSMENT/PLAN: 1. Encounter for medical examination to establish care - ICD9: V70.9, ICD10: Z00.00 (primary diagnosis) - Counseled on healthy diet and regular exercise - discussed medical, surgical, family, social history - reviewed medications 2. Cerebrovascular accident (CVA), unspecified mechanism (HCC) - ICD9: 434.91, ICD10: I63.9 - CONSULT TO PHYSICAL THERAPY - CONSULT TO RN RESOURCE NURSE 3. Primary hypertension - ICD9: 401.9, ICD10: I10 - Controlled - Continue current medications - Recommend home blood pressure monitoring, to bring results to next visit - Encouraged sodium restriction, DASH or Mediterranean diet - Recommend regular aerobic exercise - LISINOPRIL 5 MG TABLET - COMP METABOLIC PANEL 4. Screening for diabetic retinopathy - ICD9: V80.2, ICD10: Z13.5 - CONSULT TO OPHTHALMOLOGY 5. Encounter for screening for lung cancer - ICD9: V76.0, ICD10: Z12.2 - CONSULT LUNG CANCER SCREENING CLINIC 6. Type 2 diabetes mellitus with other circulatory complication, with long-term current use of insulin (HCC) - ICD9: 250.70, V58.67, ICD10: E11.59, Z79.4 - Control undetermined, due for labs - Patient noting he was discontinued on insulin after recent admission - HGB A1C - ALBUMIN/CREAT RATIO RND UR - FREESTYLE HEMA 14 DAY SENSOR KIT - will complete diabetic foot exam at next visit 7. Unspecified hypothyroidism - ICD9: 244.9, ICD10: E03.9 - Instructed patient on importance of taking on an empty stomach either first thing in the morning or at bedtime. - continue current dose of Synthroid 0.150 mg - TSH BLD 8. Other hyperlipidemia - ICD9: 272.4, ICD10: E78.49 - LIPID PANEL BASIC 9. Vitamin D deficiency - ICD9: 268.9, ICD10: E55.9 - COMP METABOLIC PANEL - VITAMIN D 25 HYDROXY 10. History of rectal cancer - ICD9: V10.06, ICD10: Z85.048 - CBC + DIFF - CEA BLD - CONSULT TO ONCOLOGY - CONSULT TO COLO-RECTAL SURGERY 11. Stage 3b chronic kidney disease (HCC) - ICD9: 585.3, ICD10: N18.32 - Counseled on avoiding NSAIDs, adequate hydration - Counseled on low sodium diet - CONSULT TO NEPHROLOGY Jenae Santamaria MD Return in about 1 month (around 05/08/2023). Discussed the above with the patient using shared decision making. The patient is in agreement with the diagnostic and treatment plans. documented in this encounterUc [facility] Center12-05-2023 Miscellaneous Notes* Telephone Encounter - Barbara Markham RN - 03/02/2023 3:58 PM EST Faxed records and orders to [facility] [phone], fax confirmation received. Gave the daughter the phone number in case they don't hear. * Telephone Encounter - Geovanna Tarango PSS - 03/02/2023 11:07 AM EST Thank you for the referral of your patient to [facility]. At this time, we are at capacity and are unable to accept your patient. In order to help your patient receive quality home care, we have included reputable agencies that service this area: [facility] - or [facility] - . Please contact this agency and they will work with your patient to arrange timely services. Thank you, KJ Daigle 03/02/2023 11:07 AM documented in this encounterUc Medical Center12-04-2023 Miscellaneous Notes* Telephone Encounter - Barbara Markham RN - 03/01/2023 4:01 PM EST Advised Daughter that order is in and they should reach out to patient about qualifying and abilityto see or if other agencies need to see patient. Verbalizes understanding. * Telephone Encounter - Barbara Markham RN - 03/01/2023 2:59 PM EST Spoke with daughter and she states they do not have [facility] established. He did down in [place]. Pended order, please review and file. * Telephone Encounter - Barbara Markham RN - 02/26/2023 11:23 AM EST Called and left a message on voicemail to ask if they have established HHC or if the wanted [facility] order? Advised to call back. * Telephone Encounter - Gabriela Singleton - 02/26/2023 9:40 AM EST Pt daughter called and needs a new order to be put in for a Home Health nurse to come into the pt home to change the catheter. Per pt daughter the order that was placed was having them take him into [place]. Please Advise, thanks! [facility]23 Miscellaneous Notes* Telephone Encounter - Myriam Heck LPN - 02/05/2023 2:19 PM EST Spoke with pts. Daughter, informed we have not yet received any medical records on this pt. Daughter Balta will contact physician in [place] and have records faxed. Myriam Heck LPN * Telephone Encounter - Anabel Storm LPN - 02/05/2023 1:40 PM EST Parag Colon Unknown Granddaughter, Emergency Contact * Telephone Encounter - Myriam Heck LPN - 02/05/2023 8:43 AM EST Attempted to contact daughter [phone] , almost sounds like a fax # then disconnects. Left message on 's cell number we have not received any medical records on this pt. Myriam Heck LPN * Telephone Encounter - Liliane Townsend - 01/26/2023 3:46 PM EDT Daughter called stating records and referral will be faxed to 01Balanced documented in this encounter[facility]11[facility]23 History of Present illness Narrative* Cameron Hernandez MD - 02/05/2023 8:30 AM EST [facility] [place] Patient: Emelia Johnson Provider: Cameron Hernandez MD : 1950 Location: [facility] 6th Floor Date of Service: 02/04/2023 PCP: Dave Sandra MD, MD Chief complaint/Identification: Emelia Johnson is a 72 year old male patient who presents for evaluation of chronic Maddox. ASSESSMENT: - Urinary retention, chronic PLAN: - Change Maddox catheter - Monthly nurse visit in [place] for catheter change. - YUMIKO follow up in 1 year Cameron Hernandez MD Medical Decision Making: Problems: Low: Stable chronic illness Risk: Minimal: Minimal risk from testing/treatment Medical Decision Making Level: 2 - Straightforward HPI: Emelia Johnson is a 72 year old year old male with PMHx of AAA, PAD (s/p aortofemoral bypass), CAD,CKD, DM, depression, HLD, HTN, stroke, hypothyroidism, colorectal cancer s/p chemoradiation, neurogenic bladder managed with chronic Maddox who is being seen for chronic Maddox change. Known to Dr. Wang ([facility]). Moved to [place] to live with daughter, needs to re- establish care. Has had Maddox for years. No issues currently. Last changed 1 month ago. S/p C&P in July 2022 (Dr. Wang). Non-obstructive prostate noted, trabeculated bladder, no hydronephrosis, J-hooking ureters. OTHER UROLOGIC HISTORY: - Kidney/Bladder/Prostate/Testis cancer: No REVIEW OF SYSTEMS: A ROS was performed and pertinent negatives and positives can be found in the HPI. RELEVANT IMAGING STUDIES (most recent): NA LABS/INVESTIGATIONS: Urine Chemstrip: NA Creatinine Date Value Ref Range Status 10/18/2020 1.24 (H) 0.73 - 1.22 mg/dL Final 10/17/2020 1.20 0.73 - 1.22 mg/dL Final 10/16/2020 1.29 (H) 0.73 - 1.22 mg/dL Final 10/15/2020 1.56 (H) 0.73 - 1.22 mg/dL Final Hemoglobin (g/dL) Date Value 10/18/2020 8.2 Hematocrit (%) Date Value 10/18/2020 26.3 WBC (k/uL) Date Value 10/18/2020 7.57 No results found for: "PSA", "PSAPER" HISTORIES FAMILY HISTORY Problem Relation Age of Onset Diabetes Father Stroke ( age 89) Diabetes Mother Stroke ( age 88) Stroke Mother Diabetes Brother Diabetes Sister "Brain " ( age 64) Diabetes Maternal Grandfather other (Old Age) Maternal Grandmother age 98 PAST MEDICAL HISTORY Diagnosis Date Abdominal aneurysm without mention of rupture Aneurysm - Abdominal Aorta Atherosclerosis of [place] arteries of the extremities with intermittent claudication ASO - Extremities & Claudication CAD (coronary artery disease) Coronary artery disease Cancer (HCC) CKD (chronic kidney disease) stage 3, GFR 30-59 ml/min (HCC) Depression Diabetes (HCC) Dyslipidemia Former smoker quit 2 weeks ago Hyperlipidemia Hypertension Hypertrophy of prostate with urinary obstruction and other lower urinary tract symptoms (LUTS) Hypertrophy of the prostate with obstruction Obesity Occlusion and stenosis of carotid artery with cerebral infarction ASO - Carotid W/O Infarction Other psoriasis and similar disorders Psoriasis Stroke (cerebrum) (HCC) Unspecified hemorrhoids without mention of complication Hemorrhoids Unspecified hypothyroidism Hypothyroidism PAST SURGICAL HISTORY Procedure Laterality Date BYPASS GRAFT OTHR,AORTO-FEM 2013 aortobifem PAST SURGICAL HISTORY OF Right 02/13/2020 CEA Social History Tobacco Use Smoking status: Former Packs/day: 3.00 Years: 50.00 Additional pack years: 0.00 Total pack years: 150.00 Types: Cigars, Cigarettes Quit date: 10/27/2013 Years since quittin.2 Smokeless tobacco: Never Substance Use Topics Alcohol use: No Drug use: No ALLERGIES Allergen Reactions Lipitor [Atorvastat* Other: See Comments body aches Current Outpatient Medications Medication Sig Dispense Refill iv contrast (will be provided with radiology test) CT ABD/PEL -Inject, intravenously, once for 1 dose.No IV access, insert saline lock prior to the beginning of sedation, infusion, injection of imaging exam. Discontinue saline lock post exam. If Pt. has a central line or IVAD, may access for administration according to line specific nursing protocol. Once exam is complete flush line and de-accessaccording to line specific nursing protocol in the CT contrast administration guidelines link. 1 Each 0 enteric contrast (will be provided with radiology test) For CT ABD/PEL W IVCON Routine order Administer, As Directed One Time Only, via Oral, Rectal, both Oral and Rectal, Enteric Tube, Stoma or Indwelling Catheter, Enteric Contrast as designated per enteric contrast guidelines 1 Each 0 docusate (COLACE) 10 mg/mL liqd Take 10 mL by mouth twice daily. clopidogrel (PLAVIX) 75 mg tablet Take 75 mg by mouth once daily. rosuvastatin (CRESTOR) 20 mg tablet Take 20 mg by mouth daily at bedtime. glyBURIDE (DIABETA) 5 mg tablet Take 2.5-5 mg by mouth twice daily. TAKE 1 TABLET BY MOUTH IN THE MORNING AND 1/2 TABLET AT NIGHT levothyroxine (SYNTHROID) 150 mcg tablet Take 150 mcg by mouth once daily. finasteride (PROSCAR) 5 mg tablet Take 5 mg by mouth once daily. sertraline (ZOLOFT) 25 mg tablet Take 25 mg by mouth. TAKING 0.5 TABS amLODIPine (NORVASC) 10 mg tablet Take 10 mg by mouth once daily. insulin detemir U-100 (LEVEMIR) 100 unit/mL injection 20 Units every morning. lisinopril (ZESTRIL, PRINIVIL) 20 mg tablet Take 20 mg by mouth once daily. terazosin (HYTRIN) 5 mg capsule TAKE 1 CAP (5 MG TOTAL) BY MOUTH EVERY NIGHT Fenofibrate 160 mg tablet Take 1 tablet by mouth once daily. 0 aspirin, enteric coated (ASPIR-LOW) 81 mg EC tablet Take 1 tablet by mouth once daily. 0 No current facility-administered medications for this visit. PHYSICAL EXAMINATION: Vitals: There were no vitals taken for this visit. BMI: There is no height or weight on file to calculate BMI. Constitutional: Apparent distress -No Psych: Alert & oriented - Yes; : Maddox with yellow urine documented in this encounter[facility]07-[facility]21 History of Past illness Narrative* Problem Noted Date Diagnosed Date Resolved Date On total parenteral nutrition (TPN) 10/08/2020 10/13/2020 Last Assessment & Plan: PLAN: -NST following -TPN off yesterday evening Peripherally inserted centra l catheter (PICC) in place 10/08/2020 10/18/2020 Last Assessment & Plan: PLAN: -PICC placed for IV nutrition -line care per hospital protocol -will remove prior to discharge Hyponatremia 10/08/2020 10/18/2020 Last Assessment & Plan: PLAN: -goal to keep >135 -monitor with labs Postoperative ileus 10/04/2020 10/19/19 Last Assessment & Plan: PLAN: -continue with conservative management with NG decompression and IV fluids + PPN -PICC placed -NG removed 10/09 -tolerating GIS diet Delirium 09/30/2020 10/18/2020 Last Assessment & Plan: ASSESSMENT: -ongoing, worsens with sleep-wake disruption PLAN: -resolving/improved -improve sleep hygiene -delirium protocol Idiopathic hypotension 09/30/202010/18 Last Assessment & Plan: PLAN: -monitor closely Hypoalbuminemia 09/24/2020 09/30/2020 Last Assessment & Plan: PLAN: -nutrition consult Acute postoperative respiratory insufficiency 09/24/19 21 10/18/2020 Last Assessment & Plan: ASSESSMENT: -patient with smoking history -transferred back to SICU on POD 3 with respiratory distress PLAN: -IS -wean nasal cannula as able Metabolic acidosis 09/23/2020 Last Assessment & Plan: PLAN: -management/correction per SICU Carotid artery disease 09/12/202009/24 Last Assessment & Plan: ASSESSMENT: -patient with history of embolic stroke involving right carotid, s/p R CEA in 01/2020, LICA with 50-69% stenosis on US in 07/2019 (in C/E) -carotid US done 09/20 PLAN: -close F/U with VM Acute blood loss anemia 12/30/2013 11/0 03/2014 Overview: 12/30/2013 H/H this morning 8.5/25.2, likely somewhat dilute with marginal BP. Gave 1 unit PRBCs followed by 20mg Lasix IV. 01/02/2014 H/H 9.0/27.5 Stable Postprocedural hypotension 12/27/2013 0 09/25/2020 Overview: History: home meds amlodipine 10 mg daily, terazosin 5 mg at bedtime, and lisinopril 20 mg daily Assessment: SBP 120s-150s postoperatively Plan: Holding home amlodipine and lisinopril PRN agents for SBP> 140 Continue to monitor Last Assessment & Plan: Assessment: H/o HTN, takes amlodipine, terazosin and lisinopril at home daily Hypotensive in OR requiring pressor HDS today PLAN: -- hold antihypertensives in post operative period Stress hyperglycemia 12/27/2013 015 Overview: Perioperative insulin resistance and exacerbation of hyperglycemia. Control blood glucose with insulin infusion per CVICU protocol 12/30/2013 Weaned off overnight. Continue with SSI for now. 01/04/2014 blood glucose 100-129 Hypoxia 12/27/2013 12/28/2013 Overview: 12/27/2013 Low SpO2 upon CVICU admission. Pt had margy BS, scattered rhonchi. Responded to PEEP 14. CXR showed atelectasis. No pneumothorax. ABG showed improvement as PaO2 increased to 194 mmHg. 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 12/27/2013 Aorto biprofunda bypass with reimplant of left renal artery 12/29/2013 Extubated. NPO with NGT. 12/30/2013 Bilateral DP/PT signals, Ambreen. Tx to RNF. 01/01/2014 D/C NGT, started clears. PT recom home with no needs. 01/02/2014 ADAT. Incision c/d/i. dopplerable PTs bilaterally (monophasic).Transition to oral pain medications. 01/03/2014 Tolerating diet. Adjust pain medications. Wean O2 01/04/2014 D/C home. At the time, patient afebrile, VSS, tolerating po diet, abdominal and both groin incisions CDI, +DP/PT doppler signals bilaterally. Smoker 01/27/2015 Overview: quit 2 weeks ago 12/30/2013: Encourage smoking cessation Smoking cessation education provided Chronic ischemic right MCA stroke 02/08/2020 Overview: ASO - Carotid W/O Infarction documented as of this encounter (statuses as of 02/05/2023) [facility] of Past illness Narrative* Problem Noted Date Diagnosed Date Resolved Date On total parenteral nutrition (TPN) 10/08/2020 10/13/2020 Last Assessment & Plan: PLAN: -NST following -TPN off yesterday evening Peripherally inserted centra l catheter (PICC) in place 10/08/2020 10/18/2020 Last Assessment & Plan: PLAN: -PICC placed for IV nutrition -line care per hospital protocol -will remove prior to discharge Hyponatremia 10/08/2020 10/18/2020 Last Assessment & Plan: PLAN: -goal to keep >135 -monitor with labs Postoperative ileus 10/04/2020 10/19/19 Last Assessment & Plan: PLAN: -continue with conservative management with NG decompression and IV fluids + PPN -PICC placed -NG removed 10/09 -tolerating GIS diet Delirium 09/30/2020 10/18/2020 Last Assessment & Plan: ASSESSMENT: -ongoing, worsens with sleep-wake disruption PLAN: -resolving/improved -improve sleep hygiene -delirium protocol Idiopathic hypotension 09/30/202010/18 Last Assessment & Plan: PLAN: -monitor closely Hypoalbuminemia 09/24/2020 09/30/2020 Last Assessment & Plan: PLAN: -nutrition consult Acute postoperative respiratory insufficiency 09/24/1910/18/2020 Last Assessment & Plan: ASSESSMENT: -patient with smoking history -transferred back to SICU on POD 3 with respiratory distress PLAN: -IS -wean nasal cannula as able Metabolic acidosis 09/23/2020 Last Assessment & Plan: PLAN: -management/correction per SICU Carotid artery disease 09/12/202009/24 Last Assessment & Plan: ASSESSMENT: -patient with history of embolic stroke involving right carotid, s/p R CEA in 01/2020, LICA with 50-69% stenosis on US in 07/2019 (in C/E) -carotid US done 09/20 PLAN: -close F/U with VM Acute blood loss anemia 12/30/2013 11/0 03/2014 Overview: 12/30/2013 H/H this morning 8.5/25.2, likely somewhat dilute with marginal BP. Gave 1 unit PRBCs followed by 20mg Lasix IV. 01/02/2014 H/H 9.0/27.5 Stable Postprocedural hypotension 12/27/2013 0 09/25/2020 Overview: History: home meds amlodipine 10 mg daily, terazosin 5 mg at bedtime, and lisinopril 20 mg daily Assessment: SBP 120s-150s postoperatively Plan: Holding home amlodipine and lisinopril PRN agents for SBP> 140 Continue to monitor Last Assessment & Plan: Assessment: H/o HTN, takes amlodipine, terazosin and lisinopril at home daily Hypotensive in OR requiring pressor HDS today PLAN: -- hold antihypertensives in post operative period Stress hyperglycemia 12/27/2013 015 Overview: Perioperative insulin resistance and exacerbation of hyperglycemia. Control blood glucose with insulin infusion per CVICU protocol 12/30/2013 Weaned off overnight. Continue with SSI for now. 01/04/2014 blood glucose 100-129 Hypoxia 12/27/2013 12/28/2013 Overview: 12/27/2013 Low SpO2 upon CVICU admission. Pt had margy BS, scattered rhonchi. Responded to PEEP 14. CXR showed atelectasis. No pneumothorax. ABG showed improvement as PaO2 increased to 194 mmHg. 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 12/27/2013 Aorto biprofunda bypass with reimplant of left renal artery 12/29/2013 Extubated. NPO with NGT. 12/30/2013 Bilateral DP/PT signals, Ambreen. Tx to RNF. 01/01/2014 D/C NGT, started clears. PT recom home with no needs. 01/02/2014 ADAT. Incision c/d/i. dopplerable PTs bilaterally (monophasic).Transition to oral pain medications. 01/03/2014 Tolerating diet. Adjust pain medications. Wean O2 01/04/2014 D/C home. At the time, patient afebrile, VSS, tolerating po diet, abdominal and both groin incisions CDI, +DP/PT doppler signals bilaterally. Smoker 01/27/2015 Overview: quit 2 weeks ago 12/30/2013: Encourage smoking cessation Smoking cessation education provided Chronic ischemic right MCA stroke 02/08/2020 Overview: ASO - Carotid W/O Infarction documented as of this encounter (statuses as of 02/17/2023) [facility] Past illness Narrative* Problem Noted Date Diagnosed Date Resolved Date On total parenteral nutrition (TPN) 10/08/2020 10/13/2020 Last Assessment & Plan: PLAN: -NST following -TPN off yesterday evening Peripherally inserted centra l catheter (PICC) in place 10/08/2020 10/18/2020 Last Assessment & Plan: PLAN: -PICC placed for IV nutrition -line care per hospital protocol -will remove prior to discharge Hyponatremia 10/08/2020 10/18/2020 Last Assessment & Plan: PLAN: -goal to keep >135 -monitor with labs Postoperative ileus 10/04/2020 10/19/19 Last Assessment & Plan: PLAN: -continue with conservative management with NG decompression and IV fluids + PPN -PICC placed -NG removed 10/09 -tolerating GIS diet Delirium 09/30/2020 10/18/2020 Last Assessment & Plan: ASSESSMENT: -ongoing, worsens with sleep-wake disruption PLAN: -resolving/improved -improve sleep hygiene -delirium protocol Idiopathic hypotension 09/30/202010/18 Last Assessment & Plan: PLAN: -monitor closely Hypoalbuminemia 09/24/2020 09/30/2020 Last Assessment & Plan: PLAN: -nutrition consult Acute postoperative respiratory insufficiency 09/24/1910/18/2020 Last Assessment & Plan: ASSESSMENT: -patient with smoking history -transferred back to SICU on POD 3 with respiratory distress PLAN: -IS -wean nasal cannula as able Metabolic acidosis 09/23/2020 Last Assessment & Plan: PLAN: -management/correction per SICU Carotid artery disease 09/12/202009/24 Last Assessment & Plan: ASSESSMENT: -patient with history of embolic stroke involving right carotid, s/p R CEA in 01/2020, LICA with 50-69% stenosis on US in 07/2019 (in C/E) -carotid US done 09/20 PLAN: -close F/U with VM Acute blood loss anemia 12/30/2013 11/0 03/2014 Overview: 12/30/2013 H/H this morning 8.5/25.2, likely somewhat dilute with marginal BP. Gave 1 unit PRBCs followed by 20mg Lasix IV. 01/02/2014 H/H 9.0/27.5 Stable Postprocedural hypotension 12/27/2013 0 09/25/2020 Overview: History: home meds amlodipine 10 mg daily, terazosin 5 mg at bedtime, and lisinopril 20 mg daily Assessment: SBP 120s-150s postoperatively Plan: Holding home amlodipine and lisinopril PRN agents for SBP> 140 Continue to monitor Last Assessment & Plan: Assessment: H/o HTN, takes amlodipine, terazosin and lisinopril at home daily Hypotensive in OR requiring pressor HDS today PLAN: -- hold antihypertensives in post operative period Stress hyperglycemia 12/27/2013 11/01/2 015 Overview: Perioperative insulin resistance and exacerbation of hyperglycemia. Control blood glucose with insulin infusion per CVICU protocol 12/30/2013 Weaned off overnight. Continue with SSI for now. 01/04/2014 blood glucose 100-129 Hypoxia 12/27/2013 12/28/2013 Overview: 12/27/2013 Low SpO2 upon CVICU admission. Pt had margy BS, scattered rhonchi. Responded to PEEP 14. CXR showed atelectasis. No pneumothorax. ABG showed improvement as PaO2 increased to 194 mmHg. 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 12/27/2013 Aorto biprofunda bypass with reimplant of left renal artery 12/29/2013 Extubated. NPO with NGT. 12/30/2013 Bilateral DP/PT signals, Ambreen. Tx to RNF. 01/01/2014 D/C NGT, started clears. PT recom home with no needs. 01/02/2014 ADAT. Incision c/d/i. dopplerable PTs bilaterally (monophasic).Transition to oral pain medications. 01/03/2014 Tolerating diet. Adjust pain medications. Wean O2 01/04/2014 D/C home. At the time, patient afebrile, VSS, tolerating po diet, abdominal and both groin incisions CDI, +DP/PT doppler signals bilaterally. Smoker 01/27/2015 Overview: quit 2 weeks ago 12/30/2013: Encourage smoking cessation Smoking cessation education provided Chronic ischemic right MCA stroke 02/08/2020 Overview: ASO - Carotid W/O Infarction documented as of this encounter (statuses as of 03/02/2023) [facility] Narrative* Problem Noted Date Diagnosed Date Resolved Date On total parenteral nutrition (TPN) 10/08/2020 10/13/2020 Last Assessment & Plan: PLAN: -NST following -TPN off yesterday evening Peripherally inserted centra l catheter (PICC) in place 10/08/2020 10/18/2020 Last Assessment & Plan: PLAN: -PICC placed for IV nutrition -line care per hospital protocol -will remove prior to discharge Hyponatremia 10/08/2020 10/18/2020 Last Assessment & Plan: PLAN: -goal to keep >135 -monitor with labs Postoperative ileus 10/04/2020 10/19/19 Last Assessment & Plan: PLAN: -continue with conservative management with NG decompression and IV fluids + PPN -PICC placed -NG removed 10/09 -tolerating GIS diet Delirium 09/30/2020 10/18/2020 Last Assessment & Plan: ASSESSMENT: -ongoing, worsens with sleep-wake disruption PLAN: -resolving/improved -improve sleep hygiene -delirium protocol Idiopathic hypotension 09/30/202010/18 Last Assessment & Plan: PLAN: -monitor closely Hypoalbuminemia 09/24/2020 09/30/2020 Last Assessment & Plan: PLAN: -nutrition consult Acute postoperative respiratory insufficiency 09/24/1910/18/2020 Last Assessment & Plan: ASSESSMENT: -patient with smoking history -transferred back to SICU on POD 3 with respiratory distress PLAN: -IS -wean nasal cannula as able Metabolic acidosis 09/23/2020 Last Assessment & Plan: PLAN: -management/correction per SICU Carotid artery disease 09/12/202009/24 Last Assessment & Plan: ASSESSMENT: -patient with history of embolic stroke involving right carotid, s/p R CEA in 01/2020, LICA with 50-69% stenosis on US in 07/2019 (in C/E) -carotid US done 09/20 PLAN: -close F/U with VM Acute blood loss anemia 12/30/2013 11/0 03/2014 Overview: 12/30/2013 H/H this morning 8.5/25.2, likely somewhat dilute with marginal BP. Gave 1 unit PRBCs followed by 20mg Lasix IV. 01/02/2014 H/H 9.0/27.5 Stable Postprocedural hypotension 12/27/2013 0 09/25/2020 Overview: History: home meds amlodipine 10 mg daily, terazosin 5 mg at bedtime, and lisinopril 20 mg daily Assessment: SBP 120s-150s postoperatively Plan: Holding home amlodipine and lisinopril PRN agents for SBP> 140 Continue to monitor Last Assessment & Plan: Assessment: H/o HTN, takes amlodipine, terazosin and lisinopril at home daily Hypotensive in OR requiring pressor HDS today PLAN: -- hold antihypertensives in post operative period Stress hyperglycemia 12/27/2013 015 Overview: Perioperative insulin resistance and exacerbation of hyperglycemia. Control blood glucose with insulin infusion per CVICU protocol 12/30/2013 Weaned off overnight. Continue with SSI for now. 01/04/2014 blood glucose 100-129 Hypoxia 12/27/2013 12/28/2013 Overview: 12/27/2013 Low SpO2 upon CVICU admission. Pt had margy BS, scattered rhonchi. Responded to PEEP 14. CXR showed atelectasis. No pneumothorax. ABG showed improvement as PaO2 increased to 194 mmHg. 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 12/27/2013 Aorto biprofunda bypass with reimplant of left renal artery 12/29/2013 Extubated. NPO with NGT. 12/30/2013 Bilateral DP/PT signals, Ambreen. Tx to RNF. 01/01/2014 D/C NGT, started clears. PT recom home with no needs. 01/02/2014 ADAT. Incision c/d/i. dopplerable PTs bilaterally (monophasic).Transition to oral pain medications. 01/03/2014 Tolerating diet. Adjust pain medications. Wean O2 01/04/2014 D/C home. At the time, patient afebrile, VSS, tolerating po diet, abdominal and both groin incisions CDI, +DP/PT doppler signals bilaterally. Smoker 01/27/2015 Overview: quit 2 weeks ago 12/30/2013: Encourage smoking cessation Smoking cessation education provided Chronic ischemic right MCA stroke 02/08/2020 Overview: ASO - Carotid W/O Infarction documented as of this encounter (statuses as of 03/02/2023) [facility] of [facility] Narrative* Problem Noted Date Diagnosed Date Resolved Date On total parenteral nutrition (TPN) 10/08/2020 10/13/2020 Last Assessment & Plan: PLAN: -NST following -TPN off yesterday evening Peripherally inserted centra l catheter (PICC) in place 10/08/2020 10/18/2020 Last Assessment & Plan: PLAN: -PICC placed for IV nutrition -line care per hospital protocol -will remove prior to discharge Hyponatremia 10/08/2020 10/18/2020 Last Assessment & Plan: PLAN: -goal to keep >135 -monitor with labs Postoperative ileus 10/04/2020 10/19/19 Last Assessment & Plan: PLAN: -continue with conservative management with NG decompression and IV fluids + PPN -PICC placed -NG removed 10/09 -tolerating GIS diet Delirium 09/30/2020 10/18/2020 Last Assessment & Plan: ASSESSMENT: -ongoing, worsens with sleep-wake disruption PLAN: -resolving/improved -improve sleep hygiene -delirium protocol Idiopathic hypotension 09/30/202010/18 Last Assessment & Plan: PLAN: -monitor closely Hypoalbuminemia 09/24/2020 09/30/2020 Last Assessment & Plan: PLAN: -nutrition consult Acute postoperative respiratory insufficiency 09/24/1910/18/2020 Last Assessment & Plan: ASSESSMENT: -patient with smoking history -transferred back to SICU on POD 3 with respiratory distress PLAN: -IS -wean nasal cannula as able Metabolic acidosis 09/23/2020 Last Assessment & Plan: PLAN: -management/correction per SICU Carotid artery disease 09/12/202009/24 Last Assessment & Plan: ASSESSMENT: -patient with history of embolic stroke involving right carotid, s/p R CEA in 01/2020, LICA with 50-69% stenosis on US in 07/2019 (in C/E) -carotid US done 09/20 PLAN: -close F/U with VM Acute blood loss anemia 12/30/2013 11/0 03/2014 Overview: 12/30/2013 H/H this morning 8.5/25.2, likely somewhat dilute with marginal BP. Gave 1 unit PRBCs followed by 20mg Lasix IV. 01/02/2014 H/H 9.0/27.5 Stable Postprocedural hypotension 12/27/2013 0 09/25/2020 Overview: History: home meds amlodipine 10 mg daily, terazosin 5 mg at bedtime, and lisinopril 20 mg daily Assessment: SBP 120s-150s postoperatively Plan: Holding home amlodipine and lisinopril PRN agents for SBP> 140 Continue to monitor Last Assessment & Plan: Assessment: H/o HTN, takes amlodipine, terazosin and lisinopril at home daily Hypotensive in OR requiring pressor HDS today PLAN: -- hold antihypertensives in post operative period Stress hyperglycemia 12/27/2013 015 Overview: Perioperative insulin resistance and exacerbation of hyperglycemia. Control blood glucose with insulin infusion per CVICU protocol 12/30/2013 Weaned off overnight. Continue with SSI for now. 01/04/2014 blood glucose 100-129 Hypoxia 12/27/2013 12/28/2013 Overview: 12/27/2013 Low SpO2 upon CVICU admission. Pt had margy BS, scattered rhonchi. Responded to PEEP 14. CXR showed atelectasis. No pneumothorax. ABG showed improvement as PaO2 increased to 194 mmHg. 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 12/27/2013 Aorto biprofunda bypass with reimplant of left renal artery 12/29/2013 Extubated. NPO with NGT. 12/30/2013 Bilateral DP/PT signals, Ambreen. Tx to RNF. 01/01/2014 D/C NGT, started clears. PT recom home with no needs. 01/02/2014 ADAT. Incision c/d/i. dopplerable PTs bilaterally (monophasic).Transition to oral pain medications. 01/03/2014 Tolerating diet. Adjust pain medications. Wean O2 01/04/2014 D/C home. At the time, patient afebrile, VSS, tolerating po diet, abdominal and both groin incisions CDI, +DP/PT doppler signals bilaterally. Smoker 01/27/2015 Overview: quit 2 weeks ago 12/30/2013: Encourage smoking cessation Smoking cessation education provided Chronic ischemic right MCA stroke 02/08/2020 Overview: ASO - Carotid W/O Infarction documented as of this encounter (statuses as of 2023) [facility]07-13-2021 History of Past illness Narrative* Problem Noted Date Diagnosed Date Resolved Date On total parenteral nutrition (TPN) 10/08/2020 10/13/2020 Last Assessment & Plan: PLAN: -NST following -TPN off yesterday evening Peripherally inserted centra l catheter (PICC) in place 10/08/2020 10/18/2020 Last Assessment & Plan: PLAN: -PICC placed for IV nutrition -line care per hospital protocol -will remove prior to discharge Hyponatremia 10/08/2020 10/18/2020 Last Assessment & Plan: PLAN: -goal to keep >135 -monitor with labs Postoperative ileus 10/04/2020 10/19/19 Last Assessment & Plan: PLAN: -continue with conservative management with NG decompression and IV fluids + PPN -PICC placed -NG removed 10/09 -tolerating GIS diet Delirium 09/30/2020 10/18/2020 Last Assessment & Plan: ASSESSMENT: -ongoing, worsens with sleep-wake disruption PLAN: -resolving/improved -improve sleep hygiene -delirium protocol Idiopathic hypotension 09/30/202010/18 Last Assessment & Plan: PLAN: -monitor closely Hypoalbuminemia 09/24/2020 09/30/2020 Last Assessment & Plan: PLAN: -nutrition consult Acute postoperative respiratory insufficiency 09/24/19 21 10/18/2020 Last Assessment & Plan: ASSESSMENT: -patient with smoking history -transferred back to SICU on POD 3 with respiratory distress PLAN: -IS -wean nasal cannula as able Metabolic acidosis 09/23/2020 Last Assessment & Plan: PLAN: -management/correction per SICU Carotid artery disease 09/12/202009/24 Last Assessment & Plan: ASSESSMENT: -patient with history of embolic stroke involving right carotid, s/p R CEA in 01/2020, LICA with 50-69% stenosis on US in 07/2019 (in C/E) -carotid US done 09/20 PLAN: -close F/U with VM Acute blood loss anemia 12/30/20130 03/2014 Overview: 12/30/2013 H/H this morning 8.5/25.2, likely somewhat dilute with marginal BP. Gave 1 unit PRBCs followed by 20mg Lasix IV. 01/02/2014 H/H 9.0/27.5 Stable Postprocedural hypotension 12/27/2013 0 09/25/2020 Overview: History: home meds amlodipine 10 mg daily, terazosin 5 mg at bedtime, and lisinopril 20 mg daily Assessment: SBP 120s-150s postoperatively Plan: Holding home amlodipine and lisinopril PRN agents for SBP> 140 Continue to monitor Last Assessment & Plan: Assessment: H/o HTN, takes amlodipine, terazosin and lisinopril at home daily Hypotensive in OR requiring pressor HDS today PLAN: -- hold antihypertensives in post operative period Stress hyperglycemia 12/27/2013 015 Overview: Perioperative insulin resistance and exacerbation of hyperglycemia. Control blood glucose with insulin infusion per CVICU protocol 12/30/2013 Weaned off overnight. Continue with SSI for now. 01/04/2014 blood glucose 100-129 Hypoxia 12/27/2013 12/28/2013 Overview: 12/27/2013 Low SpO2 upon CVICU admission. Pt had margy BS, scattered rhonchi. Responded to PEEP 14. CXR showed atelectasis. No pneumothorax. ABG showed improvement as PaO2 increased to 194 mmHg. 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 12/27/2013 Aorto biprofunda bypass with reimplant of left renal artery 12/29/2013 Extubated. NPO with NGT. 12/30/2013 Bilateral DP/PT signals, Ambreen. Tx to RNF. 01/01/2014 D/C NGT, started clears. PT recom home with no needs. 01/02/2014 ADAT. Incision c/d/i. dopplerable PTs bilaterally (monophasic).Transition to oral pain medications. 01/03/2014 Tolerating diet. Adjust pain medications. Wean O2 01/04/2014 D/C home. At the time, patient afebrile, VSS, tolerating po diet, abdominal and both groin incisions CDI, +DP/PT doppler signals bilaterally. Smoker 01/27/2015 Overview: quit 2 weeks ago 12/30/2013: Encourage smoking cessation Smoking cessation education provided Chronic ischemic right MCA stroke 02/08/2020 Overview: ASO - Carotid W/O Infarction documented as of this encounter (statuses as of 05/03/2023) [facility]07-13-2021 History of Past illness Narrative* Problem Noted Date Diagnosed Date Resolved Date On total parenteral nutrition (TPN) 10/08/2020 10/13/2020 Last Assessment & Plan: PLAN: -NST following -TPN off yesterday evening Peripherally inserted centra l catheter (PICC) in place 10/08/2020 10/18/2020 Last Assessment & Plan: PLAN: -PICC placed for IV nutrition -line care per hospital protocol -will remove prior to discharge Hyponatremia 10/08/2020 10/18/2020 Last Assessment & Plan: PLAN: -goal to keep >135 -monitor with labs Postoperative ileus 10/04/2020 10/19/19 Last Assessment & Plan: PLAN: -continue with conservative management with NG decompression and IV fluids + PPN -PICC placed -NG removed 10/09 -tolerating GIS diet Delirium 09/30/2020 10/18/2020 Last Assessment & Plan: ASSESSMENT: -ongoing, worsens with sleep-wake disruption PLAN: -resolving/improved -improve sleep hygiene -delirium protocol Idiopathic hypotension 09/30/202010/18 Last Assessment & Plan: PLAN: -monitor closely Hypoalbuminemia 09/24/2020 09/30/2020 Last Assessment & Plan: PLAN: -nutrition consult Acute postoperative respiratory insufficiency 09/24/1910/18/2020 Last Assessment & Plan: ASSESSMENT: -patient with smoking history -transferred back to SICU on POD 3 with respiratory distress PLAN: -IS -wean nasal cannula as able Metabolic acidosis 09/23/2020 Last Assessment & Plan: PLAN: -management/correction per SICU Carotid artery disease 09/12/202009/24 Last Assessment & Plan: ASSESSMENT: -patient with history of embolic stroke involving right carotid, s/p R CEA in 01/2020, LICA with 50-69% stenosis on US in 07/2019 (in C/E) -carotid US done 09/20 PLAN: -close F/U with VM Acute blood loss anemia 12/30/201303/2014 Overview: 12/30/2013 H/H this morning 8.5/25.2, likely somewhat dilute with marginal BP. Gave 1 unit PRBCs followed by 20mg Lasix IV. 01/02/2014 H/H 9.0/27.5 Stable Postprocedural hypotension 12/27/2013 0 09/25/2020 Overview: History: home meds amlodipine 10 mg daily, terazosin 5 mg at bedtime, and lisinopril 20 mg daily Assessment: SBP 120s-150s postoperatively Plan: Holding home amlodipine and lisinopril PRN agents for SBP> 140 Continue to monitor Last Assessment & Plan: Assessment: H/o HTN, takes amlodipine, terazosin and lisinopril at home daily Hypotensive in OR requiring pressor HDS today PLAN: -- hold antihypertensives in post operative period Stress hyperglycemia 12/27/2013 015 Overview: Perioperative insulin resistance and exacerbation of hyperglycemia. Control blood glucose with insulin infusion per CVICU protocol 12/30/2013 Weaned off overnight. Continue with SSI for now. 01/04/2014 blood glucose 100-129 Hypoxia 12/27/2013 12/28/2013 Overview: 12/27/2013 Low SpO2 upon CVICU admission. Pt had margy BS, scattered rhonchi. Responded to PEEP 14. CXR showed atelectasis. No pneumothorax. ABG showed improvement as PaO2 increased to 194 mmHg. 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 12/27/2013 Aorto biprofunda bypass with reimplant of left renal artery 12/29/2013 Extubated. NPO with NGT. 12/30/2013 Bilateral DP/PT signals, Ambreen. Tx to RNF. 01/01/2014 D/C NGT, started clears. PT recom home with no needs. 01/02/2014 ADAT. Incision c/d/i. dopplerable PTs bilaterally (monophasic).Transition to oral pain medications. 01/03/2014 Tolerating diet. Adjust pain medications. Wean O2 01/04/2014 D/C home. At the time, patient afebrile, VSS, tolerating po diet, abdominal and both groin incisions CDI, +DP/PT doppler signals bilaterally. Smoker 01/27/2015 Overview: quit 2 weeks ago 12/30/2013: Encourage smoking cessation Smoking cessation education provided Chronic ischemic right MCA stroke 02/08/2020 Overview: ASO - Carotid W/O Infarction documented as of this encounter (statuses as of 05/05/2023) [facility]07-13-2021 History of Past illness Narrative* Problem Noted Date Diagnosed Date Resolved Date On total parenteral nutrition (TPN) 10/08/2020 10/13/2020 Last Assessment & Plan: PLAN: -NST following -TPN off yesterday evening Peripherally inserted centra l catheter (PICC) in place 10/08/2020 10/18/2020 Last Assessment & Plan: PLAN: -PICC placed for IV nutrition -line care per hospital protocol -will remove prior to discharge Hyponatremia 10/08/2020 10/18/2020 Last Assessment & Plan: PLAN: -goal to keep >135 -monitor with labs Postoperative ileus 10/04/2020 10/19/19 Last Assessment & Plan: PLAN: -continue with conservative management with NG decompression and IV fluids + PPN -PICC placed -NG removed 10/09 -tolerating GIS diet Delirium 09/30/2020 10/18/2020 Last Assessment & Plan: ASSESSMENT: -ongoing, worsens with sleep-wake disruption PLAN: -resolving/improved -improve sleep hygiene -delirium protocol Idiopathic hypotension 09/30/202010/18 Last Assessment & Plan: PLAN: -monitor closely Hypoalbuminemia 09/24/2020 09/30/2020 Last Assessment & Plan: PLAN: -nutrition consult Acute postoperative respiratory insufficiency 09/24/1910/18/2020 Last Assessment & Plan: ASSESSMENT: -patient with smoking history -transferred back to SICU on POD 3 with respiratory distress PLAN: -IS -wean nasal cannula as able Metabolic acidosis 09/23/2020 Last Assessment & Plan: PLAN: -management/correction per SICU Carotid artery disease 09/12/202009/24 Last Assessment & Plan: ASSESSMENT: -patient with history of embolic stroke involving right carotid, s/p R CEA in 01/2020, LICA with 50-69% stenosis on US in 07/2019 (in C/E) -carotid US done 09/20 PLAN: -close F/U with VM Acute blood loss anemia 12/30/2013 11/0 03/2014 Overview: 12/30/2013 H/H this morning 8.5/25.2, likely somewhat dilute with marginal BP. Gave 1 unit PRBCs followed by 20mg Lasix IV. 01/02/2014 H/H 9.0/27.5 Stable Postprocedural hypotension 12/27/2013 0 09/25/2020 Overview: History: home meds amlodipine 10 mg daily, terazosin 5 mg at bedtime, and lisinopril 20 mg daily Assessment: SBP 120s-150s postoperatively Plan: Holding home amlodipine and lisinopril PRN agents for SBP> 140 Continue to monitor Last Assessment & Plan: Assessment: H/o HTN, takes amlodipine, terazosin and lisinopril at home daily Hypotensive in OR requiring pressor HDS today PLAN: -- hold antihypertensives in post operative period Stress hyperglycemia 12/27/2013 015 Overview: Perioperative insulin resistance and exacerbation of hyperglycemia. Control blood glucose with insulin infusion per CVICU protocol 12/30/2013 Weaned off overnight. Continue with SSI for now. 01/04/2014 blood glucose 100-129 Hypoxia 12/27/2013 12/28/2013 Overview: 12/27/2013 Low SpO2 upon CVICU admission. Pt had margy BS, scattered rhonchi. Responded to PEEP 14. CXR showed atelectasis. No pneumothorax. ABG showed improvement as PaO2 increased to 194 mmHg. 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 12/27/2013 Aorto biprofunda bypass with reimplant of left renal artery 12/29/2013 Extubated. NPO with NGT. 12/30/2013 Bilateral DP/PT signals, Ambreen. Tx to RNF. 01/01/2014 D/C NGT, started clears. PT recom home with no needs. 01/02/2014 ADAT. Incision c/d/i. dopplerable PTs bilaterally (monophasic).Transition to oral pain medications. 01/03/2014 Tolerating diet. Adjust pain medications. Wean O2 01/04/2014 D/C home. At the time, patient afebrile, VSS, tolerating po diet, abdominal and both groin incisions CDI, +DP/PT doppler signals bilaterally. Smoker 01/27/2015 Overview: quit 2 weeks ago 12/30/2013: Encourage smoking cessation Smoking cessation education provided Chronic ischemic right MCA stroke 02/08/2020 Overview: ASO - Carotid W/O Infarction documented as of this encounter (statuses as of 05/11/2023) [facility]-2021 History of Past illness Narrative* Problem Noted Date Diagnosed Date Resolved Date On total parenteral nutrition (TPN) 10/08/2020 10/13/2020 Last Assessment & Plan: PLAN: -NST following -TPN off yesterday evening Peripherally inserted centra l catheter (PICC) in place 10/08/2020 10/18/2020 Last Assessment & Plan: PLAN: -PICC placed for IV nutrition -line care per hospital protocol -will remove prior to discharge Hyponatremia 10/08/2020 10/18/2020 Last Assessment & Plan: PLAN: -goal to keep >135 -monitor with labs Postoperative ileus 10/04/2020 10/19/19 Last Assessment & Plan: PLAN: -continue with conservative management with NG decompression and IV fluids + PPN -PICC placed -NG removed 10/09 -tolerating GIS diet Delirium 09/30/2020 10/18/2020 Last Assessment & Plan: ASSESSMENT: -ongoing, worsens with sleep-wake disruption PLAN: -resolving/improved -improve sleep hygiene -delirium protocol Idiopathic hypotension 09/30/202010/18 Last Assessment & Plan: PLAN: -monitor closely Hypoalbuminemia 09/24/2020 09/30/2020 Last Assessment & Plan: PLAN: -nutrition consult Acute postoperative respiratory insufficiency 09/24/19 21 10/18/2020 Last Assessment & Plan: ASSESSMENT: -patient with smoking history -transferred back to SICU on POD 3 with respiratory distress PLAN: -IS -wean nasal cannula as able Metabolic acidosis 09/23/2020 Last Assessment & Plan: PLAN: -management/correction per SICU Carotid artery disease 09/12/202009/24 Last Assessment & Plan: ASSESSMENT: -patient with history of embolic stroke involving right carotid, s/p R CEA in 01/2020, LICA with 50-69% stenosis on US in 07/2019 (in C/E) -carotid US done 09/20 PLAN: -close F/U with VM Acute blood loss anemia 12/30/2013/03/2014 Overview: 12/30/2013 H/H this morning 8.5/25.2, likely somewhat dilute with marginal BP. Gave 1 unit PRBCs followed by 20mg Lasix IV. 01/02/2014 H/H 9.0/27.5 Stable Postprocedural hypotension 12/27/2013 0 09/25/2020 Overview: History: home meds amlodipine 10 mg daily, terazosin 5 mg at bedtime, and lisinopril 20 mg daily Assessment: SBP 120s-150s postoperatively Plan: Holding home amlodipine and lisinopril PRN agents for SBP> 140 Continue to monitor Last Assessment & Plan: Assessment: H/o HTN, takes amlodipine, terazosin and lisinopril at home daily Hypotensive in OR requiring pressor HDS today PLAN: -- hold antihypertensives in post operative period Stress hyperglycemia 12/27/2013 015 Overview: Perioperative insulin resistance and exacerbation of hyperglycemia. Control blood glucose with insulin infusion per CVICU protocol 12/30/2013 Weaned off overnight. Continue with SSI for now. 01/04/2014 blood glucose 100-129 Hypoxia 12/27/2013 12/28/2013 Overview: 12/27/2013 Low SpO2 upon CVICU admission. Pt had margy BS, scattered rhonchi. Responded to PEEP 14. CXR showed atelectasis. No pneumothorax. ABG showed improvement as PaO2 increased to 194 mmHg. 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 12/27/2013 Aorto biprofunda bypass with reimplant of left renal artery 12/29/2013 Extubated. NPO with NGT. 12/30/2013 Bilateral DP/PT signals, Ambreen. Tx to RNF. 01/01/2014 D/C NGT, started clears. PT recom home with no needs. 01/02/2014 ADAT. Incision c/d/i. dopplerable PTs bilaterally (monophasic).Transition to oral pain medications. 01/03/2014 Tolerating diet. Adjust pain medications. Wean O2 01/04/2014 D/C home. At the time, patient afebrile, VSS, tolerating po diet, abdominal and both groin incisions CDI, +DP/PT doppler signals bilaterally. Smoker 01/27/2015 Overview: quit 2 weeks ago 12/30/2013: Encourage smoking cessation Smoking cessation education provided Chronic ischemic right MCA stroke 02/08/2020 Overview: ASO - Carotid W/O Infarction documented as of this encounter (statuses as of 05/14/2023) [facility] History of Past illness Narrative* Problem Noted Date Diagnosed Date Resolved Date On total parenteral nutrition (TPN) 10/08/2020 10/13/2020 Last Assessment & Plan: PLAN: -NST following -TPN off yesterday evening Peripherally inserted centra l catheter (PICC) in place 10/08/2020 10/18/2020 Last Assessment & Plan: PLAN: -PICC placed for IV nutrition -line care per hospital protocol -will remove prior to discharge Hyponatremia 10/08/2020 10/18/2020 Last Assessment & Plan: PLAN: -goal to keep >135 -monitor with labs Postoperative ileus 10/04/2020 10/19/19 Last Assessment & Plan: PLAN: -continue with conservative management with NG decompression and IV fluids + PPN -PICC placed -NG removed 10/09 -tolerating GIS diet Delirium 09/30/2020 10/18/2020 Last Assessment & Plan: ASSESSMENT: -ongoing, worsens with sleep-wake disruption PLAN: -resolving/improved -improve sleep hygiene -delirium protocol Idiopathic hypotension 09/30/202010/18 Last Assessment & Plan: PLAN: -monitor closely Hypoalbuminemia 09/24/2020 09/30/2020 Last Assessment & Plan: PLAN: -nutrition consult Acute postoperative respiratory insufficiency 09/24/1910/18/2020 Last Assessment & Plan: ASSESSMENT: -patient with smoking history -transferred back to SICU on POD 3 with respiratory distress PLAN: -IS -wean nasal cannula as able Metabolic acidosis 09/23/2020 Last Assessment & Plan: PLAN: -management/correction per SICU Carotid artery disease 09/12/202009/24 Last Assessment & Plan: ASSESSMENT: -patient with history of embolic stroke involving right carotid, s/p R CEA in 01/2020, LICA with 50-69% stenosis on US in 07/2019 (in C/E) -carotid US done 09/20 PLAN: -close F/U with VM Acute blood loss anemia 12/30/20130 03/2014 Overview: 12/30/2013 H/H this morning 8.5/25.2, likely somewhat dilute with marginal BP. Gave 1 unit PRBCs followed by 20mg Lasix IV. 01/02/2014 H/H 9.0/27.5 Stable Postprocedural hypotension 12/27/2013 0 09/25/2020 Overview: History: home meds amlodipine 10 mg daily, terazosin 5 mg at bedtime, and lisinopril 20 mg daily Assessment: SBP 120s-150s postoperatively Plan: Holding home amlodipine and lisinopril PRN agents for SBP> 140 Continue to monitor Last Assessment & Plan: Assessment: H/o HTN, takes amlodipine, terazosin and lisinopril at home daily Hypotensive in OR requiring pressor HDS today PLAN: -- hold antihypertensives in post operative period Stress hyperglycemia 12/27/2013 015 Overview: Perioperative insulin resistance and exacerbation of hyperglycemia. Control blood glucose with insulin infusion per CVICU protocol 12/30/2013 Weaned off overnight. Continue with SSI for now. 01/04/2014 blood glucose 100-129 Hypoxia 12/27/2013 12/28/2013 Overview: 12/27/2013 Low SpO2 upon CVICU admission. Pt had margy BS, scattered rhonchi. Responded to PEEP 14. CXR showed atelectasis. No pneumothorax. ABG showed improvement as PaO2 increased to 194 mmHg. 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 12/27/2013 Aorto biprofunda bypass with reimplant of left renal artery 12/29/2013 Extubated. NPO with NGT. 12/30/2013 Bilateral DP/PT signals, Ambreen. Tx to RNF. 01/01/2014 D/C NGT, started clears. PT recom home with no needs. 01/02/2014 ADAT. Incision c/d/i. dopplerable PTs bilaterally (monophasic).Transition to oral pain medications. 01/03/2014 Tolerating diet. Adjust pain medications. Wean O2 01/04/2014 D/C home. At the time, patient afebrile, VSS, tolerating po diet, abdominal and both groin incisions CDI, +DP/PT doppler signals bilaterally. Smoker 01/27/2015 Overview: quit 2 weeks ago 12/30/2013: Encourage smoking cessation Smoking cessation education provided Chronic ischemic right MCA stroke 02/08/2020 Overview: ASO - Carotid W/O Infarction documented as of this encounter (statuses as of 05/28/2023) [facility]07-13-2021 History of Past illness Narrative* Problem Noted Date Diagnosed Date Resolved Date On total parenteral nutrition (TPN) 10/08/2020 10/13/2020 Last Assessment & Plan: PLAN: -NST following -TPN off yesterday evening Peripherally inserted centra l catheter (PICC) in place 10/08/2020 10/18/2020 Last Assessment & Plan: PLAN: -PICC placed for IV nutrition -line care per hospital protocol -will remove prior to discharge Hyponatremia 10/08/2020 10/18/2020 Last Assessment & Plan: PLAN: -goal to keep >135 -monitor with labs Postoperative ileus 10/04/2020 10/19/19 Last Assessment & Plan: PLAN: -continue with conservative management with NG decompression and IV fluids + PPN -PICC placed -NG removed 10/09 -tolerating GIS diet Delirium 09/30/2020 10/18/2020 Last Assessment & Plan: ASSESSMENT: -ongoing, worsens with sleep-wake disruption PLAN: -resolving/improved -improve sleep hygiene -delirium protocol Idiopathic hypotension 09/30/202010/18 Last Assessment & Plan: PLAN: -monitor closely Hypoalbuminemia 09/24/2020 09/30/2020 Last Assessment & Plan: PLAN: -nutrition consult Acute postoperative respiratory insufficiency 09/24/19 21 10/18/2020 Last Assessment & Plan: ASSESSMENT: -patient with smoking history -transferred back to SICU on POD 3 with respiratory distress PLAN: -IS -wean nasal cannula as able Metabolic acidosis 09/23/2020 Last Assessment & Plan: PLAN: -management/correction per SICU Carotid artery disease 09/12/202009/24 Last Assessment & Plan: ASSESSMENT: -patient with history of embolic stroke involving right carotid, s/p R CEA in 01/2020, LICA with 50-69% stenosis on US in 07/2019 (in C/E) -carotid US done 09/20 PLAN: -close F/U with VM Acute blood loss anemia 12/30/20130 03/2014 Overview: 12/30/2013 H/H this morning 8.5/25.2, likely somewhat dilute with marginal BP. Gave 1 unit PRBCs followed by 20mg Lasix IV. 01/02/2014 H/H 9.0/27.5 Stable Postprocedural hypotension 12/27/2013 0 09/25/2020 Overview: History: home meds amlodipine 10 mg daily, terazosin 5 mg at bedtime, and lisinopril 20 mg daily Assessment: SBP 120s-150s postoperatively Plan: Holding home amlodipine and lisinopril PRN agents for SBP> 140 Continue to monitor Last Assessment & Plan: Assessment: H/o HTN, takes amlodipine, terazosin and lisinopril at home daily Hypotensive in OR requiring pressor HDS today PLAN: -- hold antihypertensives in post operative period Stress hyperglycemia 12/27/2013 015 Overview: Perioperative insulin resistance and exacerbation of hyperglycemia. Control blood glucose with insulin infusion per CVICU protocol 12/30/2013 Weaned off overnight. Continue with SSI for now. 01/04/2014 blood glucose 100-129 Hypoxia 12/27/2013 12/28/2013 Overview: 12/27/2013 Low SpO2 upon CVICU admission. Pt had margy BS, scattered rhonchi. Responded to PEEP 14. CXR showed atelectasis. No pneumothorax. ABG showed improvement as PaO2 increased to 194 mmHg. 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 12/27/2013 Aorto biprofunda bypass with reimplant of left renal artery 12/29/2013 Extubated. NPO with NGT. 12/30/2013 Bilateral DP/PT signals, Ambreen. Tx to RNF. 01/01/2014 D/C NGT, started clears. PT recom home with no needs. 01/02/2014 ADAT. Incision c/d/i. dopplerable PTs bilaterally (monophasic).Transition to oral pain medications. 01/03/2014 Tolerating diet. Adjust pain medications. Wean O2 01/04/2014 D/C home. At the time, patient afebrile, VSS, tolerating po diet, abdominal and both groin incisions CDI, +DP/PT doppler signals bilaterally. Smoker 01/27/2015 Overview: quit 2 weeks ago 12/30/2013: Encourage smoking cessation Smoking cessation education provided Chronic ischemic right MCA stroke 02/08/2020 Overview: ASO - Carotid W/O Infarction documented as of this encounter (statuses as of 05/28/2023) [facility]07-13-2021 History of Past illness Narrative* Problem Noted Date Diagnosed Date Resolved Date On total parenteral nutrition (TPN) 10/08/2020 10/13/2020 Last Assessment & Plan: PLAN: -NST following -TPN off yesterday evening Peripherally inserted centra l catheter (PICC) in place 10/08/2020 10/18/2020 Last Assessment & Plan: PLAN: -PICC placed for IV nutrition -line care per hospital protocol -will remove prior to discharge Hyponatremia 10/08/2020 10/18/2020 Last Assessment & Plan: PLAN: -goal to keep >135 -monitor with labs Postoperative ileus 10/04/2020 10/19/19 Last Assessment & Plan: PLAN: -continue with conservative management with NG decompression and IV fluids + PPN -PICC placed -NG removed 10/09 -tolerating GIS diet Delirium 09/30/2020 10/18/2020 Last Assessment & Plan: ASSESSMENT: -ongoing, worsens with sleep-wake disruption PLAN: -resolving/improved -improve sleep hygiene -delirium protocol Idiopathic hypotension 09/30/202010/18 Last Assessment & Plan: PLAN: -monitor closely Hypoalbuminemia 09/24/2020 09/30/2020 Last Assessment & Plan: PLAN: -nutrition consult Acute postoperative respiratory insufficiency 09/24/1910/18/2020 Last Assessment & Plan: ASSESSMENT: -patient with smoking history -transferred back to SICU on POD 3 with respiratory distress PLAN: -IS -wean nasal cannula as able Metabolic acidosis 09/23/2020 Last Assessment & Plan: PLAN: -management/correction per SICU Carotid artery disease 09/12/202009/24 Last Assessment & Plan: ASSESSMENT: -patient with history of embolic stroke involving right carotid, s/p R CEA in 01/2020, LICA with 50-69% stenosis on US in 07/2019 (in C/E) -carotid US done 09/20 PLAN: -close F/U with VM Acute blood loss anemia 12/30/2013 11/0 03/2014 Overview: 12/30/2013 H/H this morning 8.5/25.2, likely somewhat dilute with marginal BP. Gave 1 unit PRBCs followed by 20mg Lasix IV. 01/02/2014 H/H 9.0/27.5 Stable Postprocedural hypotension 12/27/2013 0 09/25/2020 Overview: History: home meds amlodipine 10 mg daily, terazosin 5 mg at bedtime, and lisinopril 20 mg daily Assessment: SBP 120s-150s postoperatively Plan: Holding home amlodipine and lisinopril PRN agents for SBP> 140 Continue to monitor Last Assessment & Plan: Assessment: H/o HTN, takes amlodipine, terazosin and lisinopril at home daily Hypotensive in OR requiring pressor HDS today PLAN: -- hold antihypertensives in post operative period Stress hyperglycemia 12/27/2013 015 Overview: Perioperative insulin resistance and exacerbation of hyperglycemia. Control blood glucose with insulin infusion per CVICU protocol 12/30/2013 Weaned off overnight. Continue with SSI for now. 01/04/2014 blood glucose 100-129 Hypoxia 12/27/2013 12/28/2013 Overview: 12/27/2013 Low SpO2 upon CVICU admission. Pt had margy BS, scattered rhonchi. Responded to PEEP 14. CXR showed atelectasis. No pneumothorax. ABG showed improvement as PaO2 increased to 194 mmHg. 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 12/27/2013 Aorto biprofunda bypass with reimplant of left renal artery 12/29/2013 Extubated. NPO with NGT. 12/30/2013 Bilateral DP/PT signals, Ambreen. Tx to RNF. 01/01/2014 D/C NGT, started clears. PT recom home with no needs. 01/02/2014 ADAT. Incision c/d/i. dopplerable PTs bilaterally (monophasic).Transition to oral pain medications. 01/03/2014 Tolerating diet. Adjust pain medications. Wean O2 01/04/2014 D/C home. At the time, patient afebrile, VSS, tolerating po diet, abdominal and both groin incisions CDI, +DP/PT doppler signals bilaterally. Smoker 01/27/2015 Overview: quit 2 weeks ago 12/30/2013: Encourage smoking cessation Smoking cessation education provided Chronic ischemic right MCA stroke 02/08/2020 Overview: ASO - Carotid W/O Infarction documented as of this encounter (statuses as of 05/28/2023) [facility]-2021 History of Past illness Narrative* Problem Noted Date Diagnosed Date Resolved Date On total parenteral nutrition (TPN) 10/08/2020 10/13/2020 Last Assessment & Plan: PLAN: -NST following -TPN off yesterday evening Peripherally inserted centra l catheter (PICC) in place 10/08/2020 10/18/2020 Last Assessment & Plan: PLAN: -PICC placed for IV nutrition -line care per hospital protocol -will remove prior to discharge Hyponatremia 10/08/2020 10/18/2020 Last Assessment & Plan: PLAN: -goal to keep >135 -monitor with labs Postoperative ileus 10/04/2020 10/19/19 Last Assessment & Plan: PLAN: -continue with conservative management with NG decompression and IV fluids + PPN -PICC placed -NG removed 10/09 -tolerating GIS diet Delirium 09/30/2020 10/18/2020 Last Assessment & Plan: ASSESSMENT: -ongoing, worsens with sleep-wake disruption PLAN: -resolving/improved -improve sleep hygiene -delirium protocol Idiopathic hypotension 09/30/202010/18 Last Assessment & Plan: PLAN: -monitor closely Hypoalbuminemia 09/24/2020 09/30/2020 Last Assessment & Plan: PLAN: -nutrition consult Acute postoperative respiratory insufficiency 09/24/19 21 10/18/2020 Last Assessment & Plan: ASSESSMENT: -patient with smoking history -transferred back to SICU on POD 3 with respiratory distress PLAN: -IS -wean nasal cannula as able Metabolic acidosis 09/23/2020 Last Assessment & Plan: PLAN: -management/correction per SICU Carotid artery disease 09/12/202009/24 Last Assessment & Plan: ASSESSMENT: -patient with history of embolic stroke involving right carotid, s/p R CEA in 01/2020, LICA with 50-69% stenosis on US in 07/2019 (in C/E) -carotid US done 09/20 PLAN: -close F/U with VM Acute blood loss anemia 12/30/2013 11/0 03/2014 Overview: 12/30/2013 H/H this morning 8.5/25.2, likely somewhat dilute with marginal BP. Gave 1 unit PRBCs followed by 20mg Lasix IV. 01/02/2014 H/H 9.0/27.5 Stable Postprocedural hypotension 12/27/2013 0 09/25/2020 Overview: History: home meds amlodipine 10 mg daily, terazosin 5 mg at bedtime, and lisinopril 20 mg daily Assessment: SBP 120s-150s postoperatively Plan: Holding home amlodipine and lisinopril PRN agents for SBP> 140 Continue to monitor Last Assessment & Plan: Assessment: H/o HTN, takes amlodipine, terazosin and lisinopril at home daily Hypotensive in OR requiring pressor HDS today PLAN: -- hold antihypertensives in post operative period Stress hyperglycemia 12/27/2013 015 Overview: Perioperative insulin resistance and exacerbation of hyperglycemia. Control blood glucose with insulin infusion per CVICU protocol 12/30/2013 Weaned off overnight. Continue with SSI for now. 01/04/2014 blood glucose 100-129 Hypoxia 12/27/2013 12/28/2013 Overview: 12/27/2013 Low SpO2 upon CVICU admission. Pt had margy BS, scattered rhonchi. Responded to PEEP 14. CXR showed atelectasis. No pneumothorax. ABG showed improvement as PaO2 increased to 194 mmHg. 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 12/27/2013 Aorto biprofunda bypass with reimplant of left renal artery 12/29/2013 Extubated. NPO with NGT. 12/30/2013 Bilateral DP/PT signals, Ambreen. Tx to RNF. 01/01/2014 D/C NGT, started clears. PT recom home with no needs. 01/02/2014 ADAT. Incision c/d/i. dopplerable PTs bilaterally (monophasic).Transition to oral pain medications. 01/03/2014 Tolerating diet. Adjust pain medications. Wean O2 01/04/2014 D/C home. At the time, patient afebrile, VSS, tolerating po diet, abdominal and both groin incisions CDI, +DP/PT doppler signals bilaterally. Smoker 01/27/2015 Overview: quit 2 weeks ago 12/30/2013: Encourage smoking cessation Smoking cessation education provided Chronic ischemic right MCA stroke 02/08/2020 Overview: ASO - Carotid W/O Infarction documented as of this encounter (statuses as of 05/30/2023) [facility]2021 History of Past illness Narrative* Problem Noted Date Diagnosed Date Resolved Date On total parenteral nutrition (TPN) 10/08/2020 10/13/2020 Last Assessment & Plan: PLAN: -NST following -TPN off yesterday evening Peripherally inserted centra l catheter (PICC) in place 10/08/2020 10/18/2020 Last Assessment & Plan: PLAN: -PICC placed for IV nutrition -line care per hospital protocol -will remove prior to discharge Hyponatremia 10/08/2020 10/18/2020 Last Assessment & Plan: PLAN: -goal to keep >135 -monitor with labs Postoperative ileus 10/04/2020 10/19/19 Last Assessment & Plan: PLAN: -continue with conservative management with NG decompression and IV fluids + PPN -PICC placed -NG removed 10/09 -tolerating GIS diet Delirium 09/30/2020 10/18/2020 Last Assessment & Plan: ASSESSMENT: -ongoing, worsens with sleep-wake disruption PLAN: -resolving/improved -improve sleep hygiene -delirium protocol Idiopathic hypotension 09/30/202010/18 Last Assessment & Plan: PLAN: -monitor closely Hypoalbuminemia 09/24/2020 09/30/2020 Last Assessment & Plan: PLAN: -nutrition consult Acute postoperative respiratory insufficiency 09/24/19 21 10/18/2020 Last Assessment & Plan: ASSESSMENT: -patient with smoking history -transferred back to SICU on POD 3 with respiratory distress PLAN: -IS -wean nasal cannula as able Metabolic acidosis 09/23/2020 Last Assessment & Plan: PLAN: -management/correction per SICU Carotid artery disease 09/12/202009/24 Last Assessment & Plan: ASSESSMENT: -patient with history of embolic stroke involving right carotid, s/p R CEA in 01/2020, LICA with 50-69% stenosis on US in 07/2019 (in C/E) -carotid US done 09/20 PLAN: -close F/U with VM Acute blood loss anemia 12/30/2013 11/0 03/2014 Overview: 12/30/2013 H/H this morning 8.5/25.2, likely somewhat dilute with marginal BP. Gave 1 unit PRBCs followed by 20mg Lasix IV. 01/02/2014 H/H 9.0/27.5 Stable Postprocedural hypotension 12/27/2013 0 09/25/2020 Overview: History: home meds amlodipine 10 mg daily, terazosin 5 mg at bedtime, and lisinopril 20 mg daily Assessment: SBP 120s-150s postoperatively Plan: Holding home amlodipine and lisinopril PRN agents for SBP> 140 Continue to monitor Last Assessment & Plan: Assessment: H/o HTN, takes amlodipine, terazosin and lisinopril at home daily Hypotensive in OR requiring pressor HDS today PLAN: -- hold antihypertensives in post operative period Stress hyperglycemia 12/27/2013 015 Overview: Perioperative insulin resistance and exacerbation of hyperglycemia. Control blood glucose with insulin infusion per CVICU protocol 12/30/2013 Weaned off overnight. Continue with SSI for now. 01/04/2014 blood glucose 100-129 Hypoxia 12/27/2013 12/28/2013 Overview: 12/27/2013 Low SpO2 upon CVICU admission. Pt had margy BS, scattered rhonchi. Responded to PEEP 14. CXR showed atelectasis. No pneumothorax. ABG showed improvement as PaO2 increased to 194 mmHg. 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 12/27/2013 Aorto biprofunda bypass with reimplant of left renal artery 12/29/2013 Extubated. NPO with NGT. 12/30/2013 Bilateral DP/PT signals, Ambreen. Tx to RNF. 01/01/2014 D/C NGT, started clears. PT recom home with no needs. 01/02/2014 ADAT. Incision c/d/i. dopplerable PTs bilaterally (monophasic).Transition to oral pain medications. 01/03/2014 Tolerating diet. Adjust pain medications. Wean O2 01/04/2014 D/C home. At the time, patient afebrile, VSS, tolerating po diet, abdominal and both groin incisions CDI, +DP/PT doppler signals bilaterally. Smoker 01/27/2015 Overview: quit 2 weeks ago 12/30/2013: Encourage smoking cessation Smoking cessation education provided Chronic ischemic right MCA stroke 02/08/2020 Overview: ASO - Carotid W/O Infarction documented as of this encounter (statuses as of 06/03/2023) [facility] History of Past illness Narrative* Problem Noted Date Diagnosed Date Resolved Date On total parenteral nutrition (TPN) 10/08/2020 10/13/2020 Last Assessment & Plan: PLAN: -NST following -TPN off yesterday evening Peripherally inserted centra l catheter (PICC) in place 10/08/2020 10/18/2020 Last Assessment & Plan: PLAN: -PICC placed for IV nutrition -line care per hospital protocol -will remove prior to discharge Hyponatremia 10/08/2020 10/18/2020 Last Assessment & Plan: PLAN: -goal to keep >135 -monitor with labs Postoperative ileus 10/04/2020 10/19/19 Last Assessment & Plan: PLAN: -continue with conservative management with NG decompression and IV fluids + PPN -PICC placed -NG removed 10/09 -tolerating GIS diet Delirium 09/30/2020 10/18/2020 Last Assessment & Plan: ASSESSMENT: -ongoing, worsens with sleep-wake disruption PLAN: -resolving/improved -improve sleep hygiene -delirium protocol Idiopathic hypotension 09/30/202010/18 Last Assessment & Plan: PLAN: -monitor closely Hypoalbuminemia 09/24/2020 09/30/2020 Last Assessment & Plan: PLAN: -nutrition consult Acute postoperative respiratory insufficiency 09/24/1910/18/2020 Last Assessment & Plan: ASSESSMENT: -patient with smoking history -transferred back to SICU on POD 3 with respiratory distress PLAN: -IS -wean nasal cannula as able Metabolic acidosis 09/23/2020 Last Assessment & Plan: PLAN: -management/correction per SICU Carotid artery disease 09/12/202009/24 Last Assessment & Plan: ASSESSMENT: -patient with history of embolic stroke involving right carotid, s/p R CEA in 01/2020, LICA with 50-69% stenosis on US in 07/2019 (in C/E) -carotid US done 09/20 PLAN: -close F/U with VM Acute blood loss anemia 12/30/2013 11/0 03/2014 Overview: 12/30/2013 H/H this morning 8.5/25.2, likely somewhat dilute with marginal BP. Gave 1 unit PRBCs followed by 20mg Lasix IV. 01/02/2014 H/H 9.0/27.5 Stable Postprocedural hypotension 12/27/2013 0 09/25/2020 Overview: History: home meds amlodipine 10 mg daily, terazosin 5 mg at bedtime, and lisinopril 20 mg daily Assessment: SBP 120s-150s postoperatively Plan: Holding home amlodipine and lisinopril PRN agents for SBP> 140 Continue to monitor Last Assessment & Plan: Assessment: H/o HTN, takes amlodipine, terazosin and lisinopril at home daily Hypotensive in OR requiring pressor HDS today PLAN: -- hold antihypertensives in post operative period Stress hyperglycemia 12/27/2013 015 Overview: Perioperative insulin resistance and exacerbation of hyperglycemia. Control blood glucose with insulin infusion per CVICU protocol 12/30/2013 Weaned off overnight. Continue with SSI for now. 01/04/2014 blood glucose 100-129 Hypoxia 12/27/2013 12/28/2013 Overview: 12/27/2013 Low SpO2 upon CVICU admission. Pt had margy BS, scattered rhonchi. Responded to PEEP 14. CXR showed atelectasis. No pneumothorax. ABG showed improvement as PaO2 increased to 194 mmHg. 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 12/27/2013 Aorto biprofunda bypass with reimplant of left renal artery 12/29/2013 Extubated. NPO with NGT. 12/30/2013 Bilateral DP/PT signals, Ambreen. Tx to RNF. 01/01/2014 D/C NGT, started clears. PT recom home with no needs. 01/02/2014 ADAT. Incision c/d/i. dopplerable PTs bilaterally (monophasic).Transition to oral pain medications. 01/03/2014 Tolerating diet. Adjust pain medications. Wean O2 01/04/2014 D/C home. At the time, patient afebrile, VSS, tolerating po diet, abdominal and both groin incisions CDI, +DP/PT doppler signals bilaterally. Smoker 01/27/2015 Overview: quit 2 weeks ago 12/30/2013: Encourage smoking cessation Smoking cessation education provided Chronic ischemic right MCA stroke 02/08/2020 Overview: ASO - Carotid W/O Infarction documented as of this encounter (statuses as of 06/09/2023) [facility] History of Past illness Narrative* Problem Noted Date Diagnosed Date Resolved Date On total parenteral nutrition (TPN) 10/08/2020 10/13/2020 Last Assessment & Plan: PLAN: -NST following -TPN off yesterday evening Peripherally inserted centra l catheter (PICC) in place 10/08/2020 10/18/2020 Last Assessment & Plan: PLAN: -PICC placed for IV nutrition -line care per hospital protocol -will remove prior to discharge Hyponatremia 10/08/2020 10/18/2020 Last Assessment & Plan: PLAN: -goal to keep >135 -monitor with labs Postoperative ileus 10/04/2020 10/19/19 Last Assessment & Plan: PLAN: -continue with conservative management with NG decompression and IV fluids + PPN -PICC placed -NG removed 10/09 -tolerating GIS diet Delirium 09/30/2020 10/18/2020 Last Assessment & Plan: ASSESSMENT: -ongoing, worsens with sleep-wake disruption PLAN: -resolving/improved -improve sleep hygiene -delirium protocol Idiopathic hypotension 09/30/202010/18 Last Assessment & Plan: PLAN: -monitor closely Hypoalbuminemia 09/24/2020 09/30/2020 Last Assessment & Plan: PLAN: -nutrition consult Acute postoperative respiratory insufficiency 09/24/1910/18/2020 Last Assessment & Plan: ASSESSMENT: -patient with smoking history -transferred back to SICU on POD 3 with respiratory distress PLAN: -IS -wean nasal cannula as able Metabolic acidosis 09/23/2020 Last Assessment & Plan: PLAN: -management/correction per SICU Carotid artery disease 09/12/202009/24 Last Assessment & Plan: ASSESSMENT: -patient with history of embolic stroke involving right carotid, s/p R CEA in 01/2020, LICA with 50-69% stenosis on US in 07/2019 (in C/E) -carotid US done 09/20 PLAN: -close F/U with VM Acute blood loss anemia 12/30/2013 11/0 03/2014 Overview: 12/30/2013 H/H this morning 8.5/25.2, likely somewhat dilute with marginal BP. Gave 1 unit PRBCs followed by 20mg Lasix IV. 01/02/2014 H/H 9.0/27.5 Stable Postprocedural hypotension 12/27/2013 0 09/25/2020 Overview: History: home meds amlodipine 10 mg daily, terazosin 5 mg at bedtime, and lisinopril 20 mg daily Assessment: SBP 120s-150s postoperatively Plan: Holding home amlodipine and lisinopril PRN agents for SBP> 140 Continue to monitor Last Assessment & Plan: Assessment: H/o HTN, takes amlodipine, terazosin and lisinopril at home daily Hypotensive in [place] requiring pressor HDS today PLAN: -- hold antihypertensives in post operative period Stress hyperglycemia 12/27/2013 015 Overview: Perioperative insulin resistance and exacerbation of hyperglycemia. Control blood glucose with insulin infusion per CVICU protocol 12/30/2013 Weaned off overnight. Continue with SSI for now. 01/04/2014 blood glucose 100-129 Hypoxia 12/27/2013 12/28/2013 Overview: 12/27/2013 Low SpO2 upon CVICU admission. Pt had margy BS, scattered rhonchi. Responded to PEEP 14. CXR showed atelectasis. No pneumothorax. ABG showed improvement as PaO2 increased to 194 mmHg. 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 12/27/2013 Aorto biprofunda bypass with reimplant of left renal artery 12/29/2013 Extubated. NPO with NGT. 12/30/2013 Bilateral DP/PT signals, Ambreen. Tx to RNF. 01/01/2014 D/C NGT, started clears. PT recom home with no needs. 01/02/2014 ADAT. Incision c/d/i. dopplerable PTs bilaterally (monophasic).Transition to oral pain medications. 01/03/2014 Tolerating diet. Adjust pain medications. Wean O2 01/04/2014 D/C home. At the time, patient afebrile, VSS, tolerating po diet, abdominal and both groin incisions CDI, +DP/PT doppler signals bilaterally. Smoker 01/27/2015 Overview: quit 2 weeks ago 12/30/2013: Encourage smoking cessation Smoking cessation education provided Chronic ischemic right MCA stroke 02/08/2020 Overview: ASO - Carotid W/O Infarction documented as of this encounter (statuses as of 06/09/2023) [place] [id number] History of Past illness Narrative* Problem Noted Date Diagnosed Date Resolved Date On total parenteral nutrition (TPN) 10/08/2020 10/13/2020 Last Assessment & Plan: PLAN: -NST following -TPN off yesterday evening Peripherally inserted centra l catheter (PICC) in place 10/08/2020 10/18/2020 Last Assessment & Plan: PLAN: -PICC placed for IV nutrition -line care per hospital protocol -will remove prior to discharge Hyponatremia 10/08/2020 10/18/2020 Last Assessment & Plan: PLAN: -goal to keep >135 -monitor with labs Postoperative ileus 10/04/2020 10/19/19 Last Assessment & Plan: PLAN: -continue with conservative management with NG decompression and IV fluids + PPN -PICC placed -NG removed 10/09 -tolerating GIS diet Delirium 09/30/2020 10/18/2020 Last Assessment & Plan: ASSESSMENT: -ongoing, worsens with sleep-wake disruption PLAN: -resolving/improved -improve sleep hygiene -delirium protocol Idiopathic hypotension 09/30/202010/18 Last Assessment & Plan: PLAN: -monitor closely Hypoalbuminemia 09/24/2020 09/30/2020 Last Assessment & Plan: PLAN: -nutrition consult Acute postoperative respiratory insufficiency 09/24/1910/18/2020 Last Assessment & Plan: ASSESSMENT: -patient with smoking history -transferred back to SICU on POD 3 with respiratory distress PLAN: -IS -wean nasal cannula as able Metabolic acidosis 09/23/2020 Last Assessment & Plan: PLAN: -management/correction per SICU Carotid artery disease 09/12/202009/24 Last Assessment & Plan: ASSESSMENT: -patient with history of embolic stroke involving right carotid, s/p R CEA in 01/2020, LICA with 50-69% stenosis on US in 07/2019 (in C/E) -carotid US done 09/20 PLAN: -close F/U with VM Acute blood loss anemia 12/30/2013 11/0 03/2014 Overview: 12/30/2013 H/H this morning 8.5/25.2, likely somewhat dilute with marginal BP. Gave 1 unit PRBCs followed by 20mg Lasix IV. 01/02/2014 H/H 9.0/27.5 Stable Postprocedural hypotension 12/27/2013 0 09/25/2020 Overview: History: home meds amlodipine 10 mg daily, terazosin 5 mg at bedtime, and lisinopril 20 mg daily Assessment: SBP 120s-150s postoperatively Plan: Holding home amlodipine and lisinopril PRN agents for SBP> 140 Continue to monitor Last Assessment & Plan: Assessment: H/o HTN, takes amlodipine, terazosin and lisinopril at home daily Hypotensive in [place] requiring pressor HDS today PLAN: -- hold antihypertensives in post operative period Stress hyperglycemia 12/27/2013 015 Overview: Perioperative insulin resistance and exacerbation of hyperglycemia. Control blood glucose with insulin infusion per CVICU protocol 12/30/2013 Weaned off overnight. Continue with SSI for now. 01/04/2014 blood glucose 100-129 Hypoxia 12/27/2013 12/28/2013 Overview: 12/27/2013 Low SpO2 upon CVICU admission. Pt had margy BS, scattered rhonchi. Responded to PEEP 14. CXR showed atelectasis. No pneumothorax. ABG showed improvement as PaO2 increased to 194 mmHg. 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 12/27/2013 Aorto biprofunda bypass with reimplant of left renal artery 12/29/2013 Extubated. NPO with NGT. 12/30/2013 Bilateral DP/PT signals, Ambreen. Tx to RNF. 01/01/2014 D/C NGT, started clears. PT recom home with no needs. 01/02/2014 ADAT. Incision c/d/i. dopplerable PTs bilaterally (monophasic).Transition to oral pain medications. 01/03/2014 Tolerating diet. Adjust pain medications. Wean O2 01/04/2014 D/C home. At the time, patient afebrile, VSS, tolerating po diet, abdominal and both groin incisions CDI, +DP/PT doppler signals bilaterally. Smoker 01/27/2015 Overview: quit 2 weeks ago 12/30/2013: Encourage smoking cessation Smoking cessation education provided Chronic ischemic right MCA stroke 02/08/2020 Overview: ASO - Carotid W/O Infarction documented as of this encounter (statuses as of 06/11/2023) [facility]07-13-2021 History of Past illness Narrative* Problem Noted Date Diagnosed Date Resolved Date On total parenteral nutrition (TPN) 10/08/2020 10/13/2020 Last Assessment & Plan: PLAN: -NST following -TPN off yesterday evening Peripherally inserted centra l catheter (PICC) in place 10/08/2020 10/18/2020 Last Assessment & Plan: PLAN: -PICC placed for IV nutrition -line care per hospital protocol -will remove prior to discharge Hyponatremia 10/08/2020 10/18/2020 Last Assessment & Plan: PLAN: -goal to keep >135 -monitor with labs Postoperative ileus 10/04/2020 10/19/19 Last Assessment & Plan: PLAN: -continue with conservative management with NG decompression and IV fluids + PPN -PICC placed -NG removed 10/09 -tolerating GIS diet Delirium 09/30/2020 10/18/2020 Last Assessment & Plan: ASSESSMENT: -ongoing, worsens with sleep-wake disruption PLAN: -resolving/improved -improve sleep hygiene -delirium protocol Idiopathic hypotension 09/30/202010/18 Last Assessment & Plan: PLAN: -monitor closely Hypoalbuminemia 09/24/2020 09/30/2020 Last Assessment & Plan: PLAN: -nutrition consult Acute postoperative respiratory insufficiency 09/24/1910/18/2020 Last Assessment & Plan: ASSESSMENT: -patient with smoking history -transferred back to SICU on POD 3 with respiratory distress PLAN: -IS -wean nasal cannula as able Metabolic acidosis 09/23/2020 Last Assessment & Plan: PLAN: -management/correction per SICU Carotid artery disease 09/12/202009/24 Last Assessment & Plan: ASSESSMENT: -patient with history of embolic stroke involving right carotid, s/p R CEA in 01/2020, LICA with 50-69% stenosis on US in 07/2019 (in C/E) -carotid US done 09/20 PLAN: -close F/U with VM Acute blood loss anemia 12/30/2013 11/0 03/2014 Overview: 12/30/2013 H/H this morning 8.5/25.2, likely somewhat dilute with marginal BP. Gave 1 unit PRBCs followed by 20mg Lasix IV. 01/02/2014 H/H 9.0/27.5 Stable Postprocedural hypotension 12/27/2013 0 09/25/2020 Overview: History: home meds amlodipine 10 mg daily, terazosin 5 mg at bedtime, and lisinopril 20 mg daily Assessment: SBP 120s-150s postoperatively Plan: Holding home amlodipine and lisinopril PRN agents for SBP> 140 Continue to monitor Last Assessment & Plan: Assessment: H/o HTN, takes amlodipine, terazosin and lisinopril at home daily Hypotensive in [place] requiring pressor HDS today PLAN: -- hold antihypertensives in post operative period Stress hyperglycemia 12/27/2013 015 Overview: Perioperative insulin resistance and exacerbation of hyperglycemia. Control blood glucose with insulin infusion per CVICU protocol 12/30/2013 Weaned off overnight. Continue with SSI for now. 01/04/2014 blood glucose 100-129 Hypoxia 12/27/2013 12/28/2013 Overview: 12/27/2013 Low SpO2 upon CVICU admission. Pt had margy BS, scattered rhonchi. Responded to PEEP 14. CXR showed atelectasis. No pneumothorax. ABG showed improvement as PaO2 increased to 194 mmHg. 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 12/27/2013 Aorto biprofunda bypass with reimplant of left renal artery 12/29/2013 Extubated. NPO with NGT. 12/30/2013 Bilateral DP/PT signals, Ambreen. Tx to RNF. 01/01/2014 D/C NGT, started clears. PT recom home with no needs. 01/02/2014 ADAT. Incision c/d/i. dopplerable PTs bilaterally (monophasic).Transition to oral pain medications. 01/03/2014 Tolerating diet. Adjust pain medications. Wean O2 01/04/2014 D/C home. At the time, patient afebrile, VSS, tolerating po diet, abdominal and both groin incisions CDI, +DP/PT doppler signals bilaterally. Smoker 01/27/2015 Overview: quit 2 weeks ago 12/30/2013: Encourage smoking cessation Smoking cessation education provided Chronic ischemic right MCA stroke 02/08/2020 Overview: ASO - Carotid W/O Infarction documented as of this encounter (statuses as of 06/17/2023) [facility]07-13-2021 History of Past illness Narrative* Problem Noted Date Diagnosed Date Resolved Date On total parenteral nutrition (TPN) 10/08/2020 10/13/2020 Last Assessment & Plan: PLAN: -NST following -TPN off yesterday evening Peripherally inserted centra l catheter (PICC) in place 10/08/2020 10/18/2020 Last Assessment & Plan: PLAN: -PICC placed for IV nutrition -line care per hospital protocol -will remove prior to discharge Hyponatremia 10/08/2020 10/18/2020 Last Assessment & Plan: PLAN: -goal to keep >135 -monitor with labs Postoperative ileus 10/04/2020 10/19/19 Last Assessment & Plan: PLAN: -continue with conservative management with NG decompression and IV fluids + PPN -PICC placed -NG removed 10/09 -tolerating GIS diet Delirium 09/30/2020 10/18/2020 Last Assessment & Plan: ASSESSMENT: -ongoing, worsens with sleep-wake disruption PLAN: -resolving/improved -improve sleep hygiene -delirium protocol Idiopathic hypotension 09/30/202010/18 Last Assessment & Plan: PLAN: -monitor closely Hypoalbuminemia 09/24/2020 09/30/2020 Last Assessment & Plan: PLAN: -nutrition consult Acute postoperative respiratory insufficiency 09/24/1910/18/2020 Last Assessment & Plan: ASSESSMENT: -patient with smoking history -transferred back to SICU on POD 3 with respiratory distress PLAN: -IS -wean nasal cannula as able Metabolic acidosis 09/23/2020 Last Assessment & Plan: PLAN: -management/correction per SICU Carotid artery disease 09/12/202009/24 Last Assessment & Plan: ASSESSMENT: -patient with history of embolic stroke involving right carotid, s/p R CEA in 01/2020, LICA with 50-69% stenosis on US in 07/2019 (in C/E) -carotid US done 09/20 PLAN: -close F/U with VM Acute blood loss anemia 12/30/2013 11/0 03/2014 Overview: 12/30/2013 H/H this morning 8.5/25.2, likely somewhat dilute with marginal BP. Gave 1 unit PRBCs followed by 20mg Lasix IV. 01/02/2014 H/H 9.0/27.5 Stable Postprocedural hypotension 12/27/2013 0 09/25/2020 Overview: History: home meds amlodipine 10 mg daily, terazosin 5 mg at bedtime, and lisinopril 20 mg daily Assessment: SBP 120s-150s postoperatively Plan: Holding home amlodipine and lisinopril PRN agents for SBP> 140 Continue to monitor Last Assessment & Plan: Assessment: H/o HTN, takes amlodipine, terazosin and lisinopril at home daily Hypotensive in [place] requiring pressor HDS today PLAN: -- hold antihypertensives in post operative period Stress hyperglycemia 12/27/2013 015 Overview: Perioperative insulin resistance and exacerbation of hyperglycemia. Control blood glucose with insulin infusion per CVICU protocol 12/30/2013 Weaned off overnight. Continue with SSI for now. 01/04/2014 blood glucose 100-129 Hypoxia 12/27/2013 12/28/2013 Overview: 12/27/2013 Low SpO2 upon CVICU admission. Pt had margy BS, scattered rhonchi. Responded to PEEP 14. CXR showed atelectasis. No pneumothorax. ABG showed improvement as PaO2 increased to 194 mmHg. 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 12/27/2013 Aorto biprofunda bypass with reimplant of left renal artery 12/29/2013 Extubated. NPO with NGT. 12/30/2013 Bilateral DP/PT signals, Ambreen. Tx to RNF. 01/01/2014 D/C NGT, started clears. PT recom home with no needs. 01/02/2014 ADAT. Incision c/d/i. dopplerable PTs bilaterally (monophasic).Transition to oral pain medications. 01/03/2014 Tolerating diet. Adjust pain medications. Wean O2 01/04/2014 D/C home. At the time, patient afebrile, VSS, tolerating po diet, abdominal and both groin incisions CDI, +DP/PT doppler signals bilaterally. Smoker 01/27/2015 Overview: quit 2 weeks ago 12/30/2013: Encourage smoking cessation Smoking cessation education provided Chronic ischemic right MCA stroke 02/08/2020 Overview: ASO - Carotid W/O Infarction documented as of this encounter (statuses as of 07/02/2023) [facility]07-13-2021 History of Past illness Narrative* Problem Noted Date Diagnosed Date Resolved Date On total parenteral nutrition (TPN) 10/08/2020 10/13/2020 Last Assessment & Plan: PLAN: -NST following -TPN off yesterday evening Peripherally inserted centra l catheter (PICC) in place 10/08/2020 10/18/2020 Last Assessment & Plan: PLAN: -PICC placed for IV nutrition -line care per hospital protocol -will remove prior to discharge Hyponatremia 10/08/2020 10/18/2020 Last Assessment & Plan: PLAN: -goal to keep >135 -monitor with labs Postoperative ileus 10/04/2020 10/19/19 Last Assessment & Plan: PLAN: -continue with conservative management with NG decompression and IV fluids + PPN -PICC placed -NG removed 10/09 -tolerating GIS diet Delirium 09/30/2020 10/18/2020 Last Assessment & Plan: ASSESSMENT: -ongoing, worsens with sleep-wake disruption PLAN: -resolving/improved -improve sleep hygiene -delirium protocol Idiopathic hypotension 09/30/202010/18 Last Assessment & Plan: PLAN: -monitor closely Hypoalbuminemia 09/24/2020 09/30/2020 Last Assessment & Plan: PLAN: -nutrition consult Acute postoperative respiratory insufficiency 09/24/1910/18/2020 Last Assessment & Plan: ASSESSMENT: -patient with smoking history -transferred back to SICU on POD 3 with respiratory distress PLAN: -IS -wean nasal cannula as able Metabolic acidosis 09/23/2020 Last Assessment & Plan: PLAN: -management/correction per SICU Carotid artery disease 09/12/202009/24 Last Assessment & Plan: ASSESSMENT: -patient with history of embolic stroke involving right carotid, s/p R CEA in 01/2020, LICA with 50-69% stenosis on US in 07/2019 (in C/E) -carotid US done 09/20 PLAN: -close F/U with VM Acute blood loss anemia 12/30/201303/2014 Overview: 12/30/2013 H/H this morning 8.5/25.2, likely somewhat dilute with marginal BP. Gave 1 unit PRBCs followed by 20mg Lasix IV. 01/02/2014 H/H 9.0/27.5 Stable Postprocedural hypotension 12/27/2013 0 09/25/2020 Overview: History: home meds amlodipine 10 mg daily, terazosin 5 mg at bedtime, and lisinopril 20 mg daily Assessment: SBP 120s-150s postoperatively Plan: Holding home amlodipine and lisinopril PRN agents for SBP> 140 Continue to monitor Last Assessment & Plan: Assessment: H/o HTN, takes amlodipine, terazosin and lisinopril at home daily Hypotensive in [place] requiring pressor HDS today PLAN: -- hold antihypertensives in post operative period Stress hyperglycemia 12/27/2013 015 Overview: Perioperative insulin resistance and exacerbation of hyperglycemia. Control blood glucose with insulin infusion per CVICU protocol 12/30/2013 Weaned off overnight. Continue with SSI for now. 01/04/2014 blood glucose 100-129 Hypoxia 12/27/2013 12/28/2013 Overview: 12/27/2013 Low SpO2 upon CVICU admission. Pt had margy BS, scattered rhonchi. Responded to PEEP 14. CXR showed atelectasis. No pneumothorax. ABG showed improvement as PaO2 increased to 194 mmHg. 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 12/27/2013 Aorto biprofunda bypass with reimplant of left renal artery 12/29/2013 Extubated. NPO with NGT. 12/30/2013 Bilateral DP/PT signals, Ambreen. Tx to RNF. 01/01/2014 D/C NGT, started clears. PT recom home with no needs. 01/02/2014 ADAT. Incision c/d/i. dopplerable PTs bilaterally (monophasic).Transition to oral pain medications. 01/03/2014 Tolerating diet. Adjust pain medications. Wean O2 01/04/2014 D/C home. At the time, patient afebrile, VSS, tolerating po diet, abdominal and both groin incisions CDI, +DP/PT doppler signals bilaterally. Smoker 01/27/2015 Overview: quit 2 weeks ago 12/30/2013: Encourage smoking cessation Smoking cessation education provided Chronic ischemic right MCA stroke 02/08/2020 Overview: ASO - Carotid W/O Infarction documented as of this encounter (statuses as of 07/07/2023) [facility]-13-2021 History of Past illness Narrative* Problem Noted Date Diagnosed Date Resolved Date On total parenteral nutrition (TPN) 10/08/2020 10/13/2020 Last Assessment & Plan: PLAN: -NST following -TPN off yesterday evening Peripherally inserted centra l catheter (PICC) in place 10/08/2020 10/18/2020 Last Assessment & Plan: PLAN: -PICC placed for IV nutrition -line care per hospital protocol -will remove prior to discharge Hyponatremia 10/08/2020 10/18/2020 Last Assessment & Plan: PLAN: -goal to keep >135 -monitor with labs Postoperative ileus 10/04/2020 10/19/19 Last Assessment & Plan: PLAN: -continue with conservative management with NG decompression and IV fluids + PPN -PICC placed -NG removed 10/09 -tolerating GIS diet Delirium 09/30/2020 10/18/2020 Last Assessment & Plan: ASSESSMENT: -ongoing, worsens with sleep-wake disruption PLAN: -resolving/improved -improve sleep hygiene -delirium protocol Idiopathic hypotension 09/30/202010/18 Last Assessment & Plan: PLAN: -monitor closely Hypoalbuminemia 09/24/2020 09/30/2020 Last Assessment & Plan: PLAN: -nutrition consult Acute postoperative respiratory insufficiency 09/24/1910/18/2020 Last Assessment & Plan: ASSESSMENT: -patient with smoking history -transferred back to SICU on POD 3 with respiratory distress PLAN: -IS -wean nasal cannula as able Metabolic acidosis 09/23/2020 Last Assessment & Plan: PLAN: -management/correction per SICU Carotid artery disease 09/12/202009/24 Last Assessment & Plan: ASSESSMENT: -patient with history of embolic stroke involving right carotid, s/p R CEA in 01/2020, LICA with 50-69% stenosis on US in 07/2019 (in C/E) -carotid US done 09/20 PLAN: -close F/U with VM Acute blood loss anemia 12/30/2013 11/0 03/2014 Overview: 12/30/2013 H/H this morning 8.5/25.2, likely somewhat dilute with marginal BP. Gave 1 unit PRBCs followed by 20mg Lasix IV. 01/02/2014 H/H 9.0/27.5 Stable Postprocedural hypotension 12/27/2013 0 09/25/2020 Overview: History: home meds amlodipine 10 mg daily, terazosin 5 mg at bedtime, and lisinopril 20 mg daily Assessment: SBP 120s-150s postoperatively Plan: Holding home amlodipine and lisinopril PRN agents for SBP> 140 Continue to monitor Last Assessment & Plan: Assessment: H/o HTN, takes amlodipine, terazosin and lisinopril at home daily Hypotensive in [place] requiring pressor HDS today PLAN: -- hold antihypertensives in post operative period Stress hyperglycemia 12/27/2013 015 Overview: Perioperative insulin resistance and exacerbation of hyperglycemia. Control blood glucose with insulin infusion per CVICU protocol 12/30/2013 Weaned off overnight. Continue with SSI for now. 01/04/2014 blood glucose 100-129 Hypoxia 12/27/2013 12/28/2013 Overview: 12/27/2013 Low SpO2 upon CVICU admission. Pt had margy BS, scattered rhonchi. Responded to PEEP 14. CXR showed atelectasis. No pneumothorax. ABG showed improvement as PaO2 increased to 194 mmHg. 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 12/27/2013 Aorto biprofunda bypass with reimplant of left renal artery 12/29/2013 Extubated. NPO with NGT. 12/30/2013 Bilateral DP/PT signals, Ambreen. Tx to RNF. 01/01/2014 D/C NGT, started clears. PT recom home with no needs. 01/02/2014 ADAT. Incision c/d/i. dopplerable PTs bilaterally (monophasic).Transition to oral pain medications. 01/03/2014 Tolerating diet. Adjust pain medications. Wean O2 01/04/2014 D/C home. At the time, patient afebrile, VSS, tolerating po diet, abdominal and both groin incisions CDI, +DP/PT doppler signals bilaterally. Smoker 01/27/2015 Overview: quit 2 weeks ago 12/30/2013: Encourage smoking cessation Smoking cessation education provided Chronic ischemic right MCA stroke 02/08/2020 Overview: ASO - Carotid W/O Infarction documented as of this encounter (statuses as of 07/09/2023) [facility]-2021 History of Past illness Narrative* Problem Noted Date Diagnosed Date Resolved Date On total parenteral nutrition (TPN) 10/08/2020 10/13/2020 Last Assessment & Plan: PLAN: -NST following -TPN off yesterday evening Peripherally inserted centra l catheter (PICC) in place 10/08/2020 10/18/2020 Last Assessment & Plan: PLAN: -PICC placed for IV nutrition -line care per hospital protocol -will remove prior to discharge Hyponatremia 10/08/2020 10/18/2020 Last Assessment & Plan: PLAN: -goal to keep >135 -monitor with labs Postoperative ileus 10/04/2020 10/19/19 Last Assessment & Plan: PLAN: -continue with conservative management with NG decompression and IV fluids + PPN -PICC placed -NG removed 10/09 -tolerating GIS diet Delirium 09/30/2020 10/18/2020 Last Assessment & Plan: ASSESSMENT: -ongoing, worsens with sleep-wake disruption PLAN: -resolving/improved -improve sleep hygiene -delirium protocol Idiopathic hypotension 09/30/202010/18 Last Assessment & Plan: PLAN: -monitor closely Hypoalbuminemia 09/24/2020 09/30/2020 Last Assessment & Plan: PLAN: -nutrition consult Acute postoperative respiratory insufficiency 09/24/19 21 10/18/2020 Last Assessment & Plan: ASSESSMENT: -patient with smoking history -transferred back to SICU on POD 3 with respiratory distress PLAN: -IS -wean nasal cannula as able Metabolic acidosis 09/23/2020 Last Assessment & Plan: PLAN: -management/correction per SICU Carotid artery disease 09/12/202009/24 Last Assessment & Plan: ASSESSMENT: -patient with history of embolic stroke involving right carotid, s/p R CEA in 01/2020, LICA with 50-69% stenosis on US in 07/2019 (in C/E) -carotid US done 09/20 PLAN: -close F/U with VM Acute blood loss anemia 12/30/2013 11/0 03/2014 Overview: 12/30/2013 H/H this morning 8.5/25.2, likely somewhat dilute with marginal BP. Gave 1 unit PRBCs followed by 20mg Lasix IV. 01/02/2014 H/H 9.0/27.5 Stable Postprocedural hypotension 12/27/2013 0 09/25/2020 Overview: History: home meds amlodipine 10 mg daily, terazosin 5 mg at bedtime, and lisinopril 20 mg daily Assessment: SBP 120s-150s postoperatively Plan: Holding home amlodipine and lisinopril PRN agents for SBP> 140 Continue to monitor Last Assessment & Plan: Assessment: H/o HTN, takes amlodipine, terazosin and lisinopril at home daily Hypotensive in OR requiring pressor HDS today PLAN: -- hold antihypertensives in post operative period Stress hyperglycemia 12/27/2013 015 Overview: Perioperative insulin resistance and exacerbation of hyperglycemia. Control blood glucose with insulin infusion per CVICU protocol 12/30/2013 Weaned off overnight. Continue with SSI for now. 01/04/2014 blood glucose 100-129 Hypoxia 12/27/2013 12/28/2013 Overview: 12/27/2013 Low SpO2 upon CVICU admission. Pt had margy BS, scattered rhonchi. Responded to PEEP 14. CXR showed atelectasis. No pneumothorax. ABG showed improvement as PaO2 increased to 194 mmHg. 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 12/27/2013 Aorto biprofunda bypass with reimplant of left renal artery 12/29/2013 Extubated. NPO with NGT. 12/30/2013 Bilateral DP/PT signals, Ambreen. Tx to RNF. 01/01/2014 D/C NGT, started clears. PT recom home with no needs. 01/02/2014 ADAT. Incision c/d/i. dopplerable PTs bilaterally (monophasic).Transition to oral pain medications. 01/03/2014 Tolerating diet. Adjust pain medications. Wean O2 01/04/2014 D/C home. At the time, patient afebrile, VSS, tolerating po diet, abdominal and both groin incisions CDI, +DP/PT doppler signals bilaterally. Smoker 01/27/2015 Overview: quit 2 weeks ago 12/30/2013: Encourage smoking cessation Smoking cessation education provided Chronic ischemic right MCA stroke 02/08/2020 Overview: ASO - Carotid W/O Infarction documented as of this encounter (statuses as of 07/09/2023) [facility]07-[facility]21 History of Past illness Narrative* Problem Noted Date Diagnosed Date Resolved Date On total parenteral nutrition (TPN) 10/08/2020 10/13/2020 Last Assessment & Plan: PLAN: -NST following -TPN off yesterday evening Peripherally inserted centra l catheter (PICC) in place 10/08/2020 10/18/2020 Last Assessment & Plan: PLAN: -PICC placed for IV nutrition -line care per hospital protocol -will remove prior to discharge Hyponatremia 10/08/2020 10/18/2020 Last Assessment & Plan: PLAN: -goal to keep >135 -monitor with labs Postoperative ileus 10/04/2020 10/19/19 Last Assessment & Plan: PLAN: -continue with conservative management with NG decompression and IV fluids + PPN -PICC placed -NG removed 10/09 -tolerating GIS diet Delirium 09/30/2020 10/18/2020 Last Assessment & Plan: ASSESSMENT: -ongoing, worsens with sleep-wake disruption PLAN: -resolving/improved -improve sleep hygiene -delirium protocol Idiopathic hypotension 09/30/202010/18 Last Assessment & Plan: PLAN: -monitor closely Hypoalbuminemia 09/24/2020 09/30/2020 Last Assessment & Plan: PLAN: -nutrition consult Acute postoperative respiratory insufficiency 09/24/1910/18/2020 Last Assessment & Plan: ASSESSMENT: -patient with smoking history -transferred back to SICU on POD 3 with respiratory distress PLAN: -IS -wean nasal cannula as able Metabolic acidosis 09/23/2020 Last Assessment & Plan: PLAN: -management/correction per SICU Carotid artery disease 09/12/202009/24 Last Assessment & Plan: ASSESSMENT: -patient with history of embolic stroke involving right carotid, s/p R CEA in 01/2020, LICA with 50-69% stenosis on US in 07/2019 (in C/E) -carotid US done 09/20 PLAN: -close F/U with VM Acute blood loss anemia 12/30/201303/2014 Overview: 12/30/2013 H/H this morning 8.5/25.2, likely somewhat dilute with marginal BP. Gave 1 unit PRBCs followed by 20mg Lasix IV. 01/02/2014 H/H 9.0/27.5 Stable Postprocedural hypotension 12/27/2013 0 09/25/2020 Overview: History: home meds amlodipine 10 mg daily, terazosin 5 mg at bedtime, and lisinopril 20 mg daily Assessment: SBP 120s-150s postoperatively Plan: Holding home amlodipine and lisinopril PRN agents for SBP> 140 Continue to monitor Last Assessment & Plan: Assessment: H/o HTN, takes amlodipine, terazosin and lisinopril at home daily Hypotensive in OR requiring pressor HDS today PLAN: -- hold antihypertensives in post operative period Stress hyperglycemia 12/27/2013 015 Overview: Perioperative insulin resistance and exacerbation of hyperglycemia. Control blood glucose with insulin infusion per CVICU protocol 12/30/2013 Weaned off overnight. Continue with SSI for now. 01/04/2014 blood glucose 100-129 Hypoxia 12/27/2013 12/28/2013 Overview: 12/27/2013 Low SpO2 upon CVICU admission. Pt had margy BS, scattered rhonchi. Responded to PEEP 14. CXR showed atelectasis. No pneumothorax. ABG showed improvement as PaO2 increased to 194 mmHg. 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 12/27/2013 Aorto biprofunda bypass with reimplant of left renal artery 12/29/2013 Extubated. NPO with NGT. 12/30/2013 Bilateral DP/PT signals, Ambreen. Tx to RNF. 01/01/2014 D/C NGT, started clears. PT recom home with no needs. 01/02/2014 ADAT. Incision c/d/i. dopplerable PTs bilaterally (monophasic).Transition to oral pain medications. 01/03/2014 Tolerating diet. Adjust pain medications. Wean O2 01/04/2014 D/C home. At the time, patient afebrile, VSS, tolerating po diet, abdominal and both groin incisions CDI, +DP/PT doppler signals bilaterally. Smoker 01/27/2015 Overview: quit 2 weeks ago 12/30/2013: Encourage smoking cessation Smoking cessation education provided Chronic ischemic right MCA stroke 02/08/2020 Overview: ASO - Carotid W/O Infarction documented as of this encounter (statuses as of 07/13/2023) [facility] History of Past illness Narrative* Problem Noted Date Diagnosed Date Resolved Date On total parenteral nutrition (TPN) 10/08/2020 10/13/2020 Last Assessment & Plan: PLAN: -NST following -TPN off yesterday evening Peripherally inserted centra l catheter (PICC) in place 10/08/2020 10/18/2020 Last Assessment & Plan: PLAN: -PICC placed for IV nutrition -line care per hospital protocol -will remove prior to discharge Hyponatremia 10/08/2020 10/18/2020 Last Assessment & Plan: PLAN: -goal to keep >135 -monitor with labs Postoperative ileus 10/04/2020 10/19/19 Last Assessment & Plan: PLAN: -continue with conservative management with NG decompression and IV fluids + PPN -PICC placed -NG removed 10/09 -tolerating GIS diet Delirium 09/30/2020 10/18/2020 Last Assessment & Plan: ASSESSMENT: -ongoing, worsens with sleep-wake disruption PLAN: -resolving/improved -improve sleep hygiene -delirium protocol Idiopathic hypotension 09/30/202010/18 Last Assessment & Plan: PLAN: -monitor closely Hypoalbuminemia 09/24/2020 09/30/2020 Last Assessment & Plan: PLAN: -nutrition consult Acute postoperative respiratory insufficiency 09/24/19 21 10/18/2020 Last Assessment & Plan: ASSESSMENT: -patient with smoking history -transferred back to SICU on POD 3 with respiratory distress PLAN: -IS -wean nasal cannula as able Metabolic acidosis 09/23/2020 Last Assessment & Plan: PLAN: -management/correction per SICU Carotid artery disease 09/12/202009/24 Last Assessment & Plan: ASSESSMENT: -patient with history of embolic stroke involving right carotid, s/p R CEA in 01/2020, LICA with 50-69% stenosis on US in 07/2019 (in C/E) -carotid US done 09/20 PLAN: -close F/U with VM Acute blood loss anemia 12/30/2013/0 03/2014 Overview: 12/30/2013 H/H this morning 8.5/25.2, likely somewhat dilute with marginal BP. Gave 1 unit PRBCs followed by 20mg Lasix IV. 01/02/2014 H/H 9.0/27.5 Stable Postprocedural hypotension 12/27/2013 0 09/25/2020 Overview: History: home meds amlodipine 10 mg daily, terazosin 5 mg at bedtime, and lisinopril 20 mg daily Assessment: SBP 120s-150s postoperatively Plan: Holding home amlodipine and lisinopril PRN agents for SBP> 140 Continue to monitor Last Assessment & Plan: Assessment: H/o HTN, takes amlodipine, terazosin and lisinopril at home daily Hypotensive in OR requiring pressor HDS today PLAN: -- hold antihypertensives in post operative period Stress hyperglycemia 12/27/2013 015 Overview: Perioperative insulin resistance and exacerbation of hyperglycemia. Control blood glucose with insulin infusion per CVICU protocol 12/30/2013 Weaned off overnight. Continue with SSI for now. 01/04/2014 blood glucose 100-129 Hypoxia 12/27/2013 12/28/2013 Overview: 12/27/2013 Low SpO2 upon CVICU admission. Pt had margy BS, scattered rhonchi. Responded to PEEP 14. CXR showed atelectasis. No pneumothorax. ABG showed improvement as PaO2 increased to 194 mmHg. 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 12/27/2013 Aorto biprofunda bypass with reimplant of left renal artery 12/29/2013 Extubated. NPO with NGT. 12/30/2013 Bilateral DP/PT signals, Ambreen. Tx to RNF. 01/01/2014 D/C NGT, started clears. PT recom home with no needs. 01/02/2014 ADAT. Incision c/d/i. dopplerable PTs bilaterally (monophasic).Transition to oral pain medications. 01/03/2014 Tolerating diet. Adjust pain medications. Wean O2 01/04/2014 D/C home. At the time, patient afebrile, VSS, tolerating po diet, abdominal and both groin incisions CDI, +DP/PT doppler signals bilaterally. Smoker 01/27/2015 Overview: quit 2 weeks ago 12/30/2013: Encourage smoking cessation Smoking cessation education provided Chronic ischemic right MCA stroke 02/08/2020 Overview: ASO - Carotid W/O Infarction documented as of this encounter (statuses as of 07/14/2023) [facility] available[facility] Work Phone: Evaluation note* Diagnosis Retention of urine- Primary Retention of urine, unspecified [facility] Diagnosis Retention of urine- Primary Retention of urine, unspecified [facility] Diagnosis Encounter for medical examination to establish care- Primary Cerebrovascular accident (CVA), unspecified mechanism (HCC) Primary hypertension Unspecified essential hypertension Screening for diabetic retinopathy Screening for other eye conditions Encounter for screening for lung cancer Type 2 diabetes mellitus with other circulatory complication, with long-term current use of insulin (HCC) Unspecified hypothyroidism Other hyperlipidemia Vitamin D deficiency Unspecified vitamin D deficiency History of rectal cancer Personal history of malignant neoplasm of rectum, rectosigmoid junction, and anus Stage 3b chronic kidney disease (HCC) [facility]* Diagnosis Vitamin D deficiency- Primary Unspecified vitamin D deficiency [facility] Diagnosis Type 2 diabetes mellitus without retinopathy (HCC)- Primary Type II or unspecified type diabetes mellitus without mention of complication, not stated as uncontrolled Combined forms of age-related cataract of both eyes Other and combined forms of senile cataract Punctate keratitis, bilateral Hypermetropia, bilateral Regular astigmatism of both eyes Regular astigmatism [facility] Diagnosis History of colon cancer- Primary Personal history of malignant neoplasm of large intestine 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HCC) Colostomy status Elevated CEA Elevated carcinoembryonic antigen [CEA] Moderate protein-calorie malnutrition (HCC) Malnutrition of moderate degree [facility] Diagnosis Rectal cancer (HCC)- Primary Malignant neoplasm of rectum Left leg swelling Swelling of limb Stage 3 chronic kidney disease, unspecified whether stage 3a or 3b CKD (HCC) [facility] Diagnosis Left leg swelling Swelling of limb [facility] Diagnosis Unspecified hypothyroidism [facility]* Diagnosis Onset Date Resolution Status Acidosis, lactic acute Acute hypoxemic respiratory failure acute FIOR (acute kidney injury) ac [place] Aspiration into respiratory tract acute Complicated urinary tract infection acute Encephalopathy due to infection acute Severe sepsis with acute organ dysfunction acute [facility] Work Phone: Evaluation note* Diagnosis Onset Date Resolution Status Acidosis, lactic acute Acute hypoxemic respiratory failure acute FIOR (acute kidney injury) ac [place] Aspiration into respiratory tract acute Cholelithiasis acute Complicated urinary tract infection acute DVT (deep venous thrombosis) acute Encephalopathy due to infection acute Enteritis acute Severe sepsis with acute organ dysfunction acute [facility] Work Phone: Evaluation note* Diagnosis Stage 3b chronic kidney disease (HCC)- Primary [facility] Diagnosis Diabetic polyneuropathy associated with type 2 diabetes mellitus (HCC)- Primary Acquired hallux valgus of right foot Hallux valgus (acquired) PAD (peripheral artery disease) (HCC) Peripheral vascular disease, unspecified Onychomycosis Dermatophytosis of nail Pain in toe of left foot Pain in limb Pain in toe of right foot Pain in limb [facility] Diagnosis Abdominal aortic aneurysm (AAA) without rupture, unspecified part ([facility]) [facility] Diagnosis Unspecified hypothyroidism [facility] Diagnosis Urinary tract infection associated with indwelling urethral catheter, subsequent encounter- Primary [facility] Diagnosis Urinary tract infection associated with indwelling urethral catheter, initial encounter (HCC) (HCC)- Primary Acute deep vein thrombosis (DVT) of proximal vein of left lower extremity (HCC) Stage 3b chronic kidney disease (HCC) Primary hypertension Unspecified essential hypertension Unspecified hypothyroidism Chronic obstructive pulmonary disease, unspecified COPD type (HCC) Symptomatic stenosis of right carotid artery PAD (peripheral artery disease) (HCC) Peripheral vascular disease, unspecified Oropharyngeal dysphagia Dysphagia, oropharyngeal phase [facility]* Diagnosis Symptomatic stenosis of right carotid artery documented in this encounter [facility] note* Diagnosis Acute deep vein thrombosis (DVT) of proximal vein of left lower extremity (HCC)- Primary Encounter for immunization Need for other specified prophylactic vaccination against single bacterial disease Chronic obstructive pulmonary disease, unspecified COPD type (HCC) Seasonal allergic rhinitis due to pollen Type 2 diabetes mellitus with other circulatory complication, with long-term current use of insulin (HCC) Unspecified hypothyroidism 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) Atherosclerosis of [place] arteries of the extremities with intermittent claudication [facility] Diagnosis Seasonal allergic rhinitis due to pollen [facility] Diagnosis Acute deep vein thrombosis (DVT) of proximal vein of left lower extremity (HCC) [facility]* Diagnosis Thrombocytopenia (HCC)- Primary Thrombocytopenia, unspecified Unspecified hypothyroidism documented in this encounter [facility] note* Diagnosis Seasonal allergic rhinitis due to pollen [facility] Diagnosis Onychomycosis- Primary Dermatophytosis of nail Pain in toe of left foot Pain in limb Pain in toe of right foot Pain in limb Diabetic polyneuropathy associated with type 2 diabetes mellitus (HCC) documented in this encounter [facility] note* Diagnosis Urinary tract infection associated with indwelling urethral catheter, initial encounter (HCC) (HCC)- Primary documented in this encounter [facility] note* Diagnosis Postprocedural hypotension- Primary Other iatrogenic hypotension Respiratory failure with hypoxia, unspecified chronicity (HCC) Postprocedural hypotension Other iatrogenic hypotension Acute postoperative respiratory insufficiency Other pulmonary insufficiency, not elsewhere classified, following trauma and surgery Acute post-operative pain Coronary artery disease involving [place] coronary artery of [place] heart without angina pectoris 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HCC) Colostomy status Moderate protein-calorie malnutrition (HCC) Malnutrition of moderate degree Rectal cancer (HCC) Malignant neoplasm of rectum Unspecified hypothyroidism Essential (primary) hypertension Unspecified essential hypertension Idiopathic hypotension Hypotension, unspecified Rectal cancer (HCC) Malignant neoplasm of rectum History of CVA (cerebrovascular accident) Transient ischemic attack (TIA), and cerebral infarction without residual deficits Carotid artery disease (HCC) Unspecified disorders of arteries and arterioles BPH (benign prostatic hyperplasia) Unspecified hyperplasia of prostate without urinary obstruction and other lower urinary tract symptoms (LUTS) CAD (coronary artery disease), [place] coronary artery Coronary atherosclerosis of [place] coronary artery Unspecified hypothyroidism 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HCC) Colostomy status Acute postoperative respiratory insufficiency Other pulmonary insufficiency, not elsewhere classified, following trauma and surgery Metabolic acidosis Acidosis Hypoalbuminemia Other disorders of plasma protein metabolism Obesity, Class I, BMI 30-34.9 Obesity, unspecified Essential (primary) hypertension Unspecified essential hypertension Delirium Other alteration of consciousness Idiopathic hypotension Hypotension, unspecified Moderate protein-calorie malnutrition (HCC) Malnutrition of moderate degree Postoperative ileus (HCC) Other digestive system complications On total parenteral nutrition (TPN) Other specified conditions influencing health status Peripherally inserted central catheter (PICC) in place Postoperative urinary retention Hyponatremia Hyposmolality and/or hyponatremia Urinary tract infection associated with indwelling urethral catheter (HCC) (HCC) Preoperative examination- Primary Preoperative examination, unspecified Rectal cancer (HCC) Malignant neoplasm of rectum Type 2 diabetes mellitus with other specified complication, with long-term current use of insulin (HCC) Former smoker Personal history of tobacco use, presenting hazards to health History of CVA (cerebrovascular accident) Transient ischemic attack (TIA), and cerebral infarction without residual deficits Essential hypertension Unspecified essential hypertension Coronary artery disease involving [place] coronary artery of [place] heart without angina pectoris Other hyperlipidemia Bilateral carotid artery stenosis Occlusion and stenosis of carotid artery without mention of cerebral infarction H/O aorto-femoral bypass Personal history of surgery to heart and great vessels, presenting hazards to health 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) Benign prostatic hyperplasia without lower urinary tract symptoms Stage 3a chronic kidney disease (HCC) Unspecified hypothyroidism Type 2 diabetes mellitus with other circulatory complication, with long-term current use of insulin (HCC) Primary hypertension- Primary Unspecified essential hypertension Swelling of thigh Encounter for immunization Need for other specified prophylactic vaccination against single bacterial disease Symptomatic stenosis of right carotid artery Unspecified hypothyroidism Chronic obstructive pulmonary disease, unspecified COPD type (HCC) Coronary artery disease involving [place] coronary artery of [place] heart without angina pectoris Other hyperlipidemia Type 2 diabetes mellitus with other circulatory complication, with long-term current use of insulin (HCC) History of CVA (cerebrovascular accident) Transient ischemic attack (TIA), and cerebral infarction without residual deficits History of rectal cancer Personal history of malignant neoplasm of rectum, rectosigmoid junction, and anus 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HCC) Colostomy status H/O aorto-femoral bypass Personal history of surgery to heart and great vessels, presenting hazards to health Benign prostatic hyperplasia with urinary retention [facility] Diagnosis Postprocedural hypotension- Primary Other iatrogenic hypotension Respiratory failure with hypoxia, unspecified chronicity (HCC) Postprocedural hypotension Other iatrogenic hypotension Acute postoperative respiratory insufficiency Other pulmonary insufficiency, not elsewhere classified, following trauma and surgery Acute post-operative pain Coronary artery disease involving [place] coronary artery of [place] heart without angina pectoris 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HCC) Colostomy status Moderate protein-calorie malnutrition (HCC) Malnutrition of moderate degree Rectal cancer (HCC) Malignant neoplasm of rectum Unspecified hypothyroidism Essential (primary) hypertension Unspecified essential hypertension Idiopathic hypotension Hypotension, unspecified Rectal cancer (HCC) Malignant neoplasm of rectum History of CVA (cerebrovascular accident) Transient ischemic attack (TIA), and cerebral infarction without residual deficits Carotid artery disease (HCC) Unspecified disorders of arteries and arterioles BPH (benign prostatic hyperplasia) Unspecified hyperplasia of prostate without urinary obstruction and other lower urinary tract symptoms (LUTS) CAD (coronary artery disease), [place] coronary artery Coronary atherosclerosis of [place] coronary artery Unspecified hypothyroidism 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HCC) Colostomy status Acute postoperative respiratory insufficiency Other pulmonary insufficiency, not elsewhere classified, following trauma and surgery Metabolic acidosis Acidosis Hypoalbuminemia Other disorders of plasma protein metabolism Obesity, Class I, BMI 30-34.9 Obesity, unspecified Essential (primary) hypertension Unspecified essential hypertension Delirium Other alteration of consciousness Idiopathic hypotension Hypotension, unspecified Moderate protein-calorie malnutrition (HCC) Malnutrition of moderate degree Postoperative ileus (HCC) Other digestive system complications On total parenteral nutrition (TPN) Other specified conditions influencing health status Peripherally inserted central catheter (PICC) in place Postoperative urinary retention Hyponatremia Hyposmolality and/or hyponatremia Urinary tract infection associated with indwelling urethral catheter (HCC) ([facility]) Preoperative examination- Primary Preoperative examination, unspecified Rectal cancer (HCC) Malignant neoplasm of rectum Type 2 diabetes mellitus with other specified complication, with long-term current use of insulin ([facility]) Former smoker Personal history of tobacco use, presenting hazards to health History of CVA (cerebrovascular accident) Transient ischemic attack (TIA), and cerebral infarction without residual deficits Essential hypertension Unspecified essential hypertension Coronary artery disease involving twenty-nine palms coronary artery of twenty-nine [place] heart without angina pectoris Other hyperlipidemia Bilateral carotid artery stenosis Occlusion and stenosis of carotid artery without mention of cerebral infarction H/O aorto-femoral bypass Personal history of surgery to heart and great vessels, presenting hazards to health 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 rupture ([facility]) Benign prostatic hyperplasia without lower urinary tract symptoms Stage 3a chronic kidney disease ([facility]) Unspecified hypothyroidism Type 2 diabetes mellitus with other circulatory complication, with long-term current use of insulin ([facility]) Type 2 diabetes mellitus with other circulatory complication, with long-term current use of insulin ([facility])- Primary Unspecified hypothyroidism Abdominal aortic aneurysm (AAA) without rupture, unspecified part ([facility]) H/O aorto-femoral bypass Personal history of surgery to heart and great vessels, presenting hazards to health PAD (peripheral artery disease) ([facility]) Peripheral vascular disease, unspecified Chronic obstructive pulmonary disease, unspecified COPD type ([facility]) JANELL (obstructive sleep apnea) Obstructive sleep apnea (adult) (pediatric) Rectal cancer (HCC) Malignant neoplasm of rectum Encounter for immunization Need for other specified prophylactic vaccination against single bacterial disease Vitamin D deficiency Unspecified vitamin D deficiency Eosinophilic esophagitis History of DVT (deep vein thrombosis) Personal history of venous thrombosis and embolism [facility] Diagnosis Postprocedural hypotension- Primary Other iatrogenic hypotension Respiratory failure with hypoxia, unspecified chronicity (HCC) Postprocedural hypotension Other iatrogenic hypotension Acute postoperative respiratory insufficiency Other pulmonary insufficiency, not elsewhere classified, following trauma and surgery Acute post-operative pain Coronary artery disease involving twenty-nine [place] coronary artery of twenty[place]nine [place] heart without angina pectoris 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HCC) Colostomy status Moderate protein-calorie malnutrition (HCC) Malnutrition of moderate degree Rectal cancer (HCC) Malignant neoplasm of rectum Unspecified hypothyroidism Essential (primary) hypertension Unspecified essential hypertension Idiopathic hypotension Hypotension, unspecified Rectal cancer (HCC) Malignant neoplasm of rectum History of CVA (cerebrovascular accident) Transient ischemic attack (TIA), and cerebral infarction without residual deficits Carotid artery disease (HCC) Unspecified disorders of arteries and arterioles BPH (benign prostatic hyperplasia) Unspecified hyperplasia of prostate without urinary obstruction and other lower urinary tract symptoms (LUTS) CAD (coronary artery disease), twenty-nine [place] coronary artery Coronary atherosclerosis of twenty-nine [place] coronary artery Unspecified hypothyroidism 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HCC) Colostomy status Acute postoperative respiratory insufficiency Other pulmonary insufficiency, not elsewhere classified, following trauma and surgery Metabolic acidosis Acidosis Hypoalbuminemia Other disorders of plasma protein metabolism Obesity, Class I, BMI 30-34.9 Obesity, unspecified Essential (primary) hypertension Unspecified essential hypertension Delirium Other alteration of consciousness Idiopathic hypotension Hypotension, unspecified Moderate protein-calorie malnutrition (HCC) Malnutrition of moderate degree Postoperative ileus (HCC) Other digestive system complications On total parenteral nutrition (TPN) Other specified conditions influencing health status Peripherally inserted central catheter (PICC) in place Postoperative urinary retention Hyponatremia Hyposmolality and/or hyponatremia Urinary tract infection associated with indwelling urethral catheter (HCC) (HCC) Preoperative examination- Primary Preoperative examination, unspecified Rectal cancer (HCC) Malignant neoplasm of rectum Type 2 diabetes mellitus with other specified complication, with long-term current use of insulin (HCC) Former smoker Personal history of tobacco use, presenting hazards to health History of CVA (cerebrovascular accident) Transient ischemic attack (TIA), and cerebral infarction without residual deficits Essential hypertension Unspecified essential hypertension Coronary artery disease involving twenty-nine [place] coronary artery of [place]nine [place] heart without angina pectoris Other hyperlipidemia Bilateral carotid artery stenosis Occlusion and stenosis of carotid artery without mention of cerebral infarction H/O aorto-femoral bypass Personal history of surgery to heart and great vessels, presenting hazards to health 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) Benign prostatic hyperplasia without lower urinary tract symptoms Stage 3a chronic kidney disease (HCC) Unspecified hypothyroidism Type 2 diabetes mellitus with other circulatory complication, with long-term current use of insulin (HCC) Urinary tract infection associated with indwelling urethral catheter, initial encounter (HCC) (HCC)- [facility] Diagnosis Postprocedural hypotension- Primary Other iatrogenic hypotension Respiratory failure with hypoxia, unspecified chronicity (HCC) Postprocedural hypotension Other iatrogenic hypotension Acute postoperative respiratory insufficiency Other pulmonary insufficiency, not elsewhere classified, following trauma and surgery Acute post-operative pain Coronary artery disease involving twenty-nine [place] coronary artery of twenty-nine [place] heart without angina pectoris 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HCC) Colostomy status Moderate protein-calorie malnutrition (HCC) Malnutrition of moderate degree Rectal cancer (HCC) Malignant neoplasm of rectum Unspecified hypothyroidism Essential (primary) hypertension Unspecified essential hypertension Idiopathic hypotension Hypotension, unspecified Rectal cancer (HCC) Malignant neoplasm of rectum History of CVA (cerebrovascular accident) Transient ischemic attack (TIA), and cerebral infarction without residual deficits Carotid artery disease (HCC) Unspecified disorders of arteries and arterioles BPH (benign prostatic hyperplasia) Unspecified hyperplasia of prostate without urinary obstruction and other lower urinary tract symptoms (LUTS) CAD (coronary artery disease), twenty-nine [place] coronary artery Coronary atherosclerosis of twenty-nine [place] coronary artery Unspecified hypothyroidism 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HCC) Colostomy status Acute postoperative respiratory insufficiency Other pulmonary insufficiency, not elsewhere classified, following trauma and surgery Metabolic acidosis Acidosis Hypoalbuminemia Other disorders of plasma protein metabolism Obesity, Class I, BMI 30-34.9 Obesity, unspecified Essential (primary) hypertension Unspecified essential hypertension Delirium Other alteration of consciousness Idiopathic hypotension Hypotension, unspecified Moderate protein-calorie malnutrition (HCC) Malnutrition of moderate degree Postoperative ileus (HCC) Other digestive system complications On total parenteral nutrition (TPN) Other specified conditions influencing health status Peripherally inserted central catheter (PICC) in place Postoperative urinary retention Hyponatremia Hyposmolality and/or hyponatremia Urinary tract infection associated with indwelling urethral catheter (HCC) (HCC) Preoperative examination- Primary Preoperative examination, unspecified Rectal cancer (HCC) Malignant neoplasm of rectum Type 2 diabetes mellitus with other specified complication, with long-term current use of insulin (HCC) Former smoker Personal history of tobacco use, presenting hazards to health History of CVA (cerebrovascular accident) Transient ischemic attack (TIA), and cerebral infarction without residual deficits Essential hypertension Unspecified essential hypertension Coronary artery disease involving twenty-nine [place] coronary artery of twenty[place]nine [place] heart without angina pectoris Other hyperlipidemia Bilateral carotid artery stenosis Occlusion and stenosis of carotid artery without mention of cerebral infarction H/O aorto-femoral bypass Personal history of surgery to heart and great vessels, presenting hazards to health 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) Benign prostatic hyperplasia without lower urinary tract symptoms Stage 3a chronic kidney disease (HCC) Unspecified hypothyroidism Type 2 diabetes mellitus with other circulatory complication, with long-term current use of insulin (HCC) Atherosclerotic cardiovascular disease- Primary Hypertriglyceridemia Pure hyperglyceridemia [facility] Postprocedural hypotension- Primary Other iatrogenic hypotension Respiratory failure with hypoxia, unspecified chronicity (HCC) Postprocedural hypotension Other iatrogenic hypotension Acute postoperative respiratory insufficiency Other pulmonary insufficiency, not elsewhere classified, following trauma and surgery Acute post-operative pain Coronary artery disease involving twenty-nine [place] coronary artery of twenty-nine [place] heart without angina pectoris 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HCC) Colostomy status Moderate protein-calorie malnutrition (HCC) Malnutrition of moderate degree Rectal cancer (HCC) Malignant neoplasm of rectum Unspecified hypothyroidism Essential (primary) hypertension Unspecified essential hypertension Idiopathic hypotension Hypotension, unspecified Rectal cancer (HCC) Malignant neoplasm of rectum History of CVA (cerebrovascular accident) Transient ischemic attack (TIA), and cerebral infarction without residual deficits Carotid artery disease (HCC) Unspecified disorders of arteries and arterioles BPH (benign prostatic hyperplasia) Unspecified hyperplasia of prostate without urinary obstruction and other lower urinary tract symptoms (LUTS) CAD (coronary artery disease), twenty-nine [place] coronary artery Coronary atherosclerosis of twenty-nine [place] coronary artery Unspecified hypothyroidism 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HCC) Colostomy status Acute postoperative respiratory insufficiency Other pulmonary insufficiency, not elsewhere classified, following trauma and surgery Metabolic acidosis Acidosis Hypoalbuminemia Other disorders of plasma protein metabolism Obesity, Class I, BMI 30-34.9 Obesity, unspecified Essential (primary) hypertension Unspecified essential hypertension Delirium Other alteration of consciousness Idiopathic hypotension Hypotension, unspecified Moderate protein-calorie malnutrition (HCC) Malnutrition of moderate degree Postoperative ileus (HCC) Other digestive system complications On total parenteral nutrition (TPN) Other specified conditions influencing health status Peripherally inserted central catheter (PICC) in place Postoperative urinary retention Hyponatremia Hyposmolality and/or hyponatremia Urinary tract infection associated with indwelling urethral catheter (HCC) (HCC) Preoperative examination- Primary Preoperative examination, unspecified Rectal cancer (HCC) Malignant neoplasm of rectum Type 2 diabetes mellitus with other specified complication, with long-term current use of insulin (HCC) Former smoker Personal history of tobacco use, presenting hazards to health History of CVA (cerebrovascular accident) Transient ischemic attack (TIA), and cerebral infarction without residual deficits Essential hypertension Unspecified essential hypertension Coronary artery disease involving twenty-nine [place] coronary artery of twenty-nine [place] heart without angina pectoris Other hyperlipidemia Bilateral carotid artery stenosis Occlusion and stenosis of carotid artery without mention of cerebral infarction H/O aorto-femoral bypass Personal history of surgery to heart and great vessels, presenting hazards to health 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) Benign prostatic hyperplasia without lower urinary tract symptoms Stage 3a chronic kidney disease (HCC) Unspecified hypothyroidism Type 2 diabetes mellitus with other circulatory complication, 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, with long-term current use of insulin (HCC)- Primary Unspecified hypothyroidism [facility] Postprocedural hypotension- Primary Other iatrogenic hypotension Respiratory failure with hypoxia, unspecified chronicity (HCC) Postprocedural hypotension Other iatrogenic hypotension Acute postoperative respiratory insufficiency Other pulmonary insufficiency, not elsewhere classified, following trauma and surgery Acute post-operative pain Coronary artery disease involving twenty-nine [place] coronary artery of twenty[place]nine [place] heart without angina pectoris 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HCC) Colostomy status Moderate protein-calorie malnutrition (HCC) Malnutrition of moderate degree Rectal cancer (HCC) Malignant neoplasm of rectum Unspecified hypothyroidism Essential (primary) hypertension Unspecified essential hypertension Idiopathic hypotension Hypotension, unspecified Rectal cancer (HCC) Malignant neoplasm of rectum History of CVA (cerebrovascular accident) Transient ischemic attack (TIA), and cerebral infarction without residual deficits Carotid artery disease (HCC) Unspecified disorders of arteries and arterioles BPH (benign prostatic hyperplasia) Unspecified hyperplasia of prostate without urinary obstruction and other lower urinary tract symptoms (LUTS) CAD (coronary artery disease), twenty-nine [place] coronary artery Coronary atherosclerosis of twenty-nine [place] coronary artery Unspecified hypothyroidism 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HCC) Colostomy status Acute postoperative respiratory insufficiency Other pulmonary insufficiency, not elsewhere classified, following trauma and surgery Metabolic acidosis Acidosis Hypoalbuminemia Other disorders of plasma protein metabolism Obesity, Class I, BMI 30-34.9 Obesity, unspecified Essential (primary) hypertension Unspecified essential hypertension Delirium Other alteration of consciousness Idiopathic hypotension Hypotension, unspecified Moderate protein-calorie malnutrition (HCC) Malnutrition of moderate degree Postoperative ileus (HCC) Other digestive system complications On total parenteral nutrition (TPN) Other specified conditions influencing health status Peripherally inserted central catheter (PICC) in place Postoperative urinary retention Hyponatremia Hyposmolality and/or hyponatremia Urinary tract infection associated with indwelling urethral catheter (HCC) (HCC) Preoperative examination- Primary Preoperative examination, unspecified Rectal cancer (HCC) Malignant neoplasm of rectum Type 2 diabetes mellitus with other specified complication, with long-term current use of insulin (HCC) Former smoker Personal history of tobacco use, presenting hazards to health History of CVA (cerebrovascular accident) Transient ischemic attack (TIA), and cerebral infarction without residual deficits Essential hypertension Unspecified essential hypertension Coronary artery disease involving twenty-nine [place] coronary artery of twenty-nine [place] heart without angina pectoris Other hyperlipidemia Bilateral carotid artery stenosis Occlusion and stenosis of carotid artery without mention of cerebral infarction H/O aorto-femoral bypass Personal history of surgery to heart and great vessels, presenting hazards to health 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) Benign prostatic hyperplasia without lower urinary tract symptoms Stage 3a chronic kidney disease (HCC) Unspecified hypothyroidism Type 2 diabetes mellitus with other circulatory complication, with long-term current use of insulin (HCC) Vitamin D deficiency- Primary Unspecified vitamin D deficiency [facility] Diagnosis Postprocedural hypotension- Primary Other iatrogenic hypotension Respiratory failure with hypoxia, unspecified chronicity (HCC) Postprocedural hypotension Other iatrogenic hypotension Acute postoperative respiratory insufficiency Other pulmonary insufficiency, not elsewhere classified, following trauma and surgery Acute post-operative pain Coronary artery disease involving twenty-nine [place] coronary artery of twenty[place]nine [place] heart without angina pectoris 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HCC) Colostomy status Moderate protein-calorie malnutrition (HCC) Malnutrition of moderate degree Rectal cancer (HCC) Malignant neoplasm of rectum Unspecified hypothyroidism Essential (primary) hypertension Unspecified essential hypertension Idiopathic hypotension Hypotension, unspecified Rectal cancer (HCC) Malignant neoplasm of rectum History of CVA (cerebrovascular accident) Transient ischemic attack (TIA), and cerebral infarction without residual deficits Carotid artery disease (HCC) Unspecified disorders of arteries and arterioles BPH (benign prostatic hyperplasia) Unspecified hyperplasia of prostate without urinary obstruction and other lower urinary tract symptoms (LUTS) CAD (coronary artery disease), [place]-nine [place] coronary artery Coronary atherosclerosis of twenty-nine [place] coronary artery Unspecified hypothyroidism 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HCC) Colostomy status Acute postoperative respiratory insufficiency Other pulmonary insufficiency, not elsewhere classified, following trauma and surgery Metabolic acidosis Acidosis Hypoalbuminemia Other disorders of plasma protein metabolism Obesity, Class I, BMI 30-34.9 Obesity, unspecified Essential (primary) hypertension Unspecified essential hypertension Delirium Other alteration of consciousness Idiopathic hypotension Hypotension, unspecified Moderate protein-calorie malnutrition (HCC) Malnutrition of moderate degree Postoperative ileus (HCC) Other digestive system complications On total parenteral nutrition (TPN) Other specified conditions influencing health status Peripherally inserted central catheter (PICC) in place Postoperative urinary retention Hyponatremia Hyposmolality and/or hyponatremia Urinary tract infection associated with indwelling urethral catheter (HCC) (HCC) Preoperative examination- Primary Preoperative examination, unspecified Rectal cancer (HCC) Malignant neoplasm of rectum Type 2 diabetes mellitus with other specified complication, with long-term current use of insulin (HCC) Former smoker Personal history of tobacco use, presenting hazards to health History of CVA (cerebrovascular accident) Transient ischemic attack (TIA), and cerebral infarction without residual deficits Essential hypertension Unspecified essential hypertension Coronary artery disease involving twenty-nine [place] coronary artery of twenty-nine [place] heart without angina pectoris Other hyperlipidemia Bilateral carotid artery stenosis Occlusion and stenosis of carotid artery without mention of cerebral infarction H/O aorto-femoral bypass Personal history of surgery to heart and great vessels, presenting hazards to health 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) Benign prostatic hyperplasia without lower urinary tract symptoms Stage 3a chronic kidney disease (HCC) Unspecified hypothyroidism Type 2 diabetes mellitus with other circulatory complication, with long-term current use of insulin (HCC) Urinary tract infection associated with indwelling urethral catheter, subsequent encounter- [facility] Postprocedural hypotension- Primary Other iatrogenic hypotension Respiratory failure with hypoxia, unspecified chronicity (HCC) Postprocedural hypotension Other iatrogenic hypotension Acute postoperative respiratory insufficiency Other pulmonary insufficiency, not elsewhere classified, following trauma and surgery Acute post-operative pain Coronary artery disease involving twenty-nine [place] coronary artery of twenty[place]nine [place] heart without angina pectoris 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HCC) Colostomy status Moderate protein-calorie malnutrition (HCC) Malnutrition of moderate degree Rectal cancer (HCC) Malignant neoplasm of rectum Unspecified hypothyroidism Essential (primary) hypertension Unspecified essential hypertension Idiopathic hypotension Hypotension, unspecified Rectal cancer (HCC) Malignant neoplasm of rectum History of CVA (cerebrovascular accident) Transient ischemic attack (TIA), and cerebral infarction without residual deficits Carotid artery disease (HCC) Unspecified disorders of arteries and arterioles BPH (benign prostatic hyperplasia) Unspecified hyperplasia of prostate without urinary obstruction and other lower urinary tract symptoms (LUTS) CAD (coronary artery disease), twenty-nine [place] coronary artery Coronary atherosclerosis of twenty-nine [place] coronary artery Unspecified hypothyroidism 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HCC) Colostomy status Acute postoperative respiratory insufficiency Other pulmonary insufficiency, not elsewhere classified, following trauma and surgery Metabolic acidosis Acidosis Hypoalbuminemia Other disorders of plasma protein metabolism Obesity, Class I, BMI 30-34.9 Obesity, unspecified Essential (primary) hypertension Unspecified essential hypertension Delirium Other alteration of consciousness Idiopathic hypotension Hypotension, unspecified Moderate protein-calorie malnutrition (HCC) Malnutrition of moderate degree Postoperative ileus (HCC) Other digestive system complications On total parenteral nutrition (TPN) Other specified conditions influencing health status Peripherally inserted central catheter (PICC) in place Postoperative urinary retention Hyponatremia Hyposmolality and/or hyponatremia Urinary tract infection associated with indwelling urethral catheter (HCC) (HCC) Preoperative examination- Primary Preoperative examination, unspecified Rectal cancer (HCC) Malignant neoplasm of rectum Type 2 diabetes mellitus with other specified complication, with long-term current use of insulin (HCC) Former smoker Personal history of tobacco use, presenting hazards to health History of CVA (cerebrovascular accident) Transient ischemic attack (TIA), and cerebral infarction without residual deficits Essential hypertension Unspecified essential hypertension Coronary artery disease involving twenty-nine [place] coronary artery of [place]nine [place] heart without angina pectoris Other hyperlipidemia Bilateral carotid artery stenosis Occlusion and stenosis of carotid artery without mention of cerebral infarction H/O aorto-femoral bypass Personal history of surgery to heart and great vessels, presenting hazards to health 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) Benign prostatic hyperplasia without lower urinary tract symptoms Stage 3a chronic kidney disease (HCC) Unspecified hypothyroidism Type 2 diabetes mellitus with other circulatory complication, with long-term current use of insulin (HCC) Seasonal allergic rhinitis due to pollen [facility] Postprocedural hypotension- Primary Other iatrogenic hypotension Respiratory failure with hypoxia, unspecified chronicity (HCC) Postprocedural hypotension Other iatrogenic hypotension Acute postoperative respiratory insufficiency Other pulmonary insufficiency, not elsewhere classified, following trauma and surgery Acute post-operative pain Coronary artery disease involving twenty-nine palms coronary artery of twenty-nine palms heart without angina pectoris 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HCC) Colostomy status Moderate protein-calorie malnutrition (HCC) Malnutrition of moderate degree Rectal cancer (HCC) Malignant neoplasm of rectum Unspecified hypothyroidism Essential (primary) hypertension Unspecified essential hypertension Idiopathic hypotension Hypotension, unspecified Rectal cancer (HCC) Malignant neoplasm of rectum History of CVA (cerebrovascular accident) Transient ischemic attack (TIA), and cerebral infarction without residual deficits Carotid artery disease (HCC) Unspecified disorders of arteries and arterioles BPH (benign prostatic hyperplasia) Unspecified hyperplasia of prostate without urinary obstruction and other lower urinary tract symptoms (LUTS) CAD (coronary artery disease), twenty-nine palms coronary artery Coronary atherosclerosis of twenty-nine palms coronary artery Unspecified hypothyroidism 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HCC) Colostomy status Acute postoperative respiratory insufficiency Other pulmonary insufficiency, not elsewhere classified, following trauma and surgery Metabolic acidosis Acidosis Hypoalbuminemia Other disorders of plasma protein metabolism Obesity, Class I, BMI 30-34.9 Obesity, unspecified Essential (primary) hypertension Unspecified essential hypertension Delirium Other alteration of consciousness Idiopathic hypotension Hypotension, unspecified Moderate protein-calorie malnutrition (HCC) Malnutrition of moderate degree Postoperative ileus (HCC) Other digestive system complications On total parenteral nutrition (TPN) Other specified conditions influencing health status Peripherally inserted central catheter (PICC) in place Postoperative urinary retention Hyponatremia Hyposmolality and/or hyponatremia Urinary tract infection associated with indwelling urethral catheter (HCC) (HCC) Preoperative examination- Primary Preoperative examination, unspecified Rectal cancer (HCC) Malignant neoplasm of rectum Type 2 diabetes mellitus with other specified complication, with long-term current use of insulin (HCC) Former smoker Personal history of tobacco use, presenting hazards to health History of CVA (cerebrovascular accident) Transient ischemic attack (TIA), and cerebral infarction without residual deficits Essential hypertension Unspecified essential hypertension Coronary artery disease involving twenty-nine [place] coronary artery of twenty-nine [place] heart without angina pectoris Other hyperlipidemia Bilateral carotid artery stenosis Occlusion and stenosis of carotid artery without mention of cerebral infarction H/O aorto-femoral bypass Personal history of surgery to heart and great vessels, presenting hazards to health 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) Benign prostatic hyperplasia without lower urinary tract symptoms Stage 3a chronic kidney disease (HCC) Unspecified hypothyroidism Type 2 diabetes mellitus with other circulatory complication, with long-term current use of insulin (HCC) Onychomycosis- Primary Dermatophytosis of nail Pain in toe of left foot Pain in limb Pain in toe of right foot Pain in limb Diabetic polyneuropathy associated with type 2 diabetes mellitus (HCC) Acquired hallux valgus of right foot Hallux valgus (acquired) PAD (peripheral artery disease) (HCC) Peripheral vascular disease, unspecified [facility] Diagnosis Onset Date Resolution Status Admit Date Acidosis, lactic acute June 11:19am Acute UTI acute July 01 11:19am Leukocytosis acute July 01, 025 11:19am Vomiting acute July 01 11:19am [facility] Work Phone: Evaluation note* Diagnosis Postprocedural hypotension- Primary Other iatrogenic hypotension Respiratory failure with hypoxia, unspecified chronicity (HCC) Postprocedural hypotension Other iatrogenic hypotension Acute postoperative respiratory insufficiency Other pulmonary insufficiency, not elsewhere classified, following trauma and surgery Acute post-operative pain Coronary artery disease involving twenty-nine palms coronary artery of twenty-nine [place] heart without angina pectoris 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HCC) Colostomy status Moderate protein-calorie malnutrition (HCC) Malnutrition of moderate degree Rectal cancer (HCC) Malignant neoplasm of rectum Unspecified hypothyroidism Essential (primary) hypertension Unspecified essential hypertension Idiopathic hypotension Hypotension, unspecified Rectal cancer (HCC) Malignant neoplasm of rectum History of CVA (cerebrovascular accident) Transient ischemic attack (TIA), and cerebral infarction without residual deficits Carotid artery disease Unspecified disorders of arteries and arterioles BPH (benign prostatic hyperplasia) Unspecified hyperplasia of prostate without urinary obstruction and other lower urinary tract symptoms (LUTS) CAD (coronary artery disease), twenty-nine [place] coronary artery Coronary atherosclerosis of twenty-nine palms coronary artery Unspecified hypothyroidism 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HCC) Colostomy status Acute postoperative respiratory insufficiency Other pulmonary insufficiency, not elsewhere classified, following trauma and surgery Metabolic acidosis Acidosis Hypoalbuminemia Other disorders of plasma protein metabolism Obesity, Class I, BMI 30-34.9 Obesity, unspecified Essential (primary) hypertension Unspecified essential hypertension Delirium Other alteration of consciousness Idiopathic hypotension Hypotension, unspecified Moderate protein-calorie malnutrition (HCC) Malnutrition of moderate degree Postoperative ileus (HCC) Other digestive system complications On total parenteral nutrition (TPN) Other specified conditions influencing health status Peripherally inserted central catheter (PICC) in place Postoperative urinary retention Hyponatremia Hyposmolality and/or hyponatremia Urinary tract infection associated with indwelling urethral catheter Preoperative examination- Primary Preoperative examination, unspecified Rectal cancer (HCC) Malignant neoplasm of rectum Type 2 diabetes mellitus with other specified complication, with long-term current use of insulin (HCC) Former smoker Personal history of tobacco use, presenting hazards to health History of CVA (cerebrovascular accident) Transient ischemic attack (TIA), and cerebral infarction without residual deficits Essential hypertension Unspecified essential hypertension Coronary artery disease involving twenty-nine [place] coronary artery of twenty-nine [place] heart without angina pectoris Other hyperlipidemia Bilateral carotid artery stenosis Occlusion and stenosis of carotid artery without mention of cerebral infarction H/O aorto-femoral bypass Personal history of surgery to heart and great vessels, presenting hazards to health 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 rupture Benign prostatic hyperplasia without lower urinary tract symptoms Stage 3a chronic kidney disease (HCC) Unspecified hypothyroidism Type 2 diabetes mellitus with other circulatory complication, with long-term current use of insulin (HCC) Eosinophilic esophagitis [facility] Postprocedural hypotension- Primary Other iatrogenic hypotension Respiratory failure with hypoxia, unspecified chronicity (HCC) Postprocedural hypotension Other iatrogenic hypotension Acute postoperative respiratory insufficiency Other pulmonary insufficiency, not elsewhere classified, following trauma and surgery Acute post-operative pain Coronary artery disease involving twenty-nine [place] coronary artery of twenty[place]nine [place] heart without angina pectoris 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HCC) Colostomy status Moderate protein-calorie malnutrition (HCC) Malnutrition of moderate degree Rectal cancer (HCC) Malignant neoplasm of rectum Unspecified hypothyroidism Essential (primary) hypertension Unspecified essential hypertension Idiopathic hypotension Hypotension, unspecified Rectal cancer (HCC) Malignant neoplasm of rectum History of CVA (cerebrovascular accident) Transient ischemic attack (TIA), and cerebral infarction without residual deficits Carotid artery disease Unspecified disorders of arteries and arterioles BPH (benign prostatic hyperplasia) Unspecified hyperplasia of prostate without urinary obstruction and other lower urinary tract symptoms (LUTS) CAD (coronary artery disease), twenty-nine [place] coronary artery Coronary atherosclerosis of twenty-nine [place] coronary artery Unspecified hypothyroidism 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HCC) Colostomy status Acute postoperative respiratory insufficiency Other pulmonary insufficiency, not elsewhere classified, following trauma and surgery Metabolic acidosis Acidosis Hypoalbuminemia Other disorders of plasma protein metabolism Obesity, Class I, BMI 30-34.9 Obesity, unspecified Essential (primary) hypertension Unspecified essential hypertension Delirium Other alteration of consciousness Idiopathic hypotension Hypotension, unspecified Moderate protein-calorie malnutrition (HCC) Malnutrition of moderate degree Postoperative ileus (HCC) Other digestive system complications On total parenteral nutrition (TPN) Other specified conditions influencing health status Peripherally inserted central catheter (PICC) in place Postoperative urinary retention Hyponatremia Hyposmolality and/or hyponatremia Urinary tract infection associated with indwelling urethral catheter Preoperative examination- Primary Preoperative examination, unspecified Rectal cancer (HCC) Malignant neoplasm of rectum Type 2 diabetes mellitus with other specified complication, with long-term current use of insulin (HCC) Former smoker Personal history of tobacco use, presenting hazards to health History of CVA (cerebrovascular accident) Transient ischemic attack (TIA), and cerebral infarction without residual deficits Essential hypertension Unspecified essential hypertension Coronary artery disease involving twenty-nine [place] coronary artery of twenty-nine [place] heart without angina pectoris Other hyperlipidemia Bilateral carotid artery stenosis Occlusion and stenosis of carotid artery without mention of cerebral infarction H/O aorto-femoral bypass Personal history of surgery to heart and great vessels, presenting hazards to health 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 rupture Benign prostatic hyperplasia without lower urinary tract symptoms Stage 3a chronic kidney disease (HCC) Unspecified hypothyroidism Type 2 diabetes mellitus with other circulatory complication, with long-term current use of insulin (HCC) Primary hypertension Unspecified essential hypertension [facility] Postprocedural hypotension- Primary Other iatrogenic hypotension Respiratory failure with hypoxia, unspecified chronicity (HCC) Postprocedural hypotension Other iatrogenic hypotension Acute postoperative respiratory insufficiency Other pulmonary insufficiency, not elsewhere classified, following trauma and surgery Acute post-operative pain Coronary artery disease involving twenty-nine [place] coronary artery of twenty-nine [place] heart without angina pectoris 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HCC) Colostomy status Moderate protein-calorie malnutrition (HCC) Malnutrition of moderate degree Rectal cancer (HCC) Malignant neoplasm of rectum Unspecified hypothyroidism Essential (primary) hypertension Unspecified essential hypertension Idiopathic hypotension Hypotension, unspecified Rectal cancer (HCC) Malignant neoplasm of rectum History of CVA (cerebrovascular accident) Transient ischemic attack (TIA), and cerebral infarction without residual deficits Carotid artery disease Unspecified disorders of arteries and arterioles BPH (benign prostatic hyperplasia) Unspecified hyperplasia of prostate without urinary obstruction and other lower urinary tract symptoms (LUTS) CAD (coronary artery disease), twenty-nine [place] coronary artery Coronary atherosclerosis of twenty-nine [place] coronary artery Unspecified hypothyroidism 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HCC) Colostomy status Acute postoperative respiratory insufficiency Other pulmonary insufficiency, not elsewhere classified, following trauma and surgery Metabolic acidosis Acidosis Hypoalbuminemia Other disorders of plasma protein metabolism Obesity, Class I, BMI 30-34.9 Obesity, unspecified Essential (primary) hypertension Unspecified essential hypertension Delirium Other alteration of consciousness Idiopathic hypotension Hypotension, unspecified Moderate protein-calorie malnutrition (HCC) Malnutrition of moderate degree Postoperative ileus (HCC) Other digestive system complications On total parenteral nutrition (TPN) Other specified conditions influencing health status Peripherally inserted central catheter (PICC) in place Postoperative urinary retention Hyponatremia Hyposmolality and/or hyponatremia Urinary tract infection associated with indwelling urethral catheter Preoperative examination- Primary Preoperative examination, unspecified Rectal cancer (HCC) Malignant neoplasm of rectum Type 2 diabetes mellitus with other specified complication, with long-term current use of insulin (HCC) Former smoker Personal history of tobacco use, presenting hazards to health History of CVA (cerebrovascular accident) Transient ischemic attack (TIA), and cerebral infarction without residual deficits Essential hypertension Unspecified essential hypertension Coronary artery disease involving twenty-nine [place] coronary artery of twenty-nine [place] heart without angina pectoris Other hyperlipidemia Bilateral carotid artery stenosis Occlusion and stenosis of carotid artery without mention of cerebral infarction H/O aorto-femoral bypass Personal history of surgery to heart and great vessels, presenting hazards to health 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 rupture Benign prostatic hyperplasia without lower urinary tract symptoms Stage 3a chronic kidney disease (HCC) Unspecified hypothyroidism Type 2 diabetes mellitus with other circulatory complication, 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, with long-term current use of insulin (HCC)- Primary Unspecified hypothyroidism Anemia, unspecified type [facility] Diagnosis Postprocedural hypotension- Primary Other iatrogenic hypotension Respiratory failure with hypoxia, unspecified chronicity (HCC) Postprocedural hypotension Other iatrogenic hypotension Acute postoperative respiratory insufficiency Other pulmonary insufficiency, not elsewhere classified, following trauma and surgery Acute post-operative pain Coronary artery disease involving twenty-nine [place] coronary artery of twenty-nine [place] heart without angina pectoris 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HCC) Colostomy status Moderate protein-calorie malnutrition (HCC) Malnutrition of moderate degree Rectal cancer (HCC) Malignant neoplasm of rectum Unspecified hypothyroidism Essential (primary) hypertension Unspecified essential hypertension Idiopathic hypotension Hypotension, unspecified Rectal cancer (HCC) Malignant neoplasm of rectum History of CVA (cerebrovascular accident) Transient ischemic attack (TIA), and cerebral infarction without residual deficits Carotid artery disease Unspecified disorders of arteries and arterioles BPH (benign prostatic hyperplasia) Unspecified hyperplasia of prostate without urinary obstruction and other lower urinary tract symptoms (LUTS) CAD (coronary artery disease), twenty-nine [place] coronary artery Coronary atherosclerosis of twenty-nine [place] coronary artery Unspecified hypothyroidism 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HCC) Colostomy status Acute postoperative respiratory insufficiency Other pulmonary insufficiency, not elsewhere classified, following trauma and surgery Metabolic acidosis Acidosis Hypoalbuminemia Other disorders of plasma protein metabolism Obesity, Class I, BMI 30-34.9 Obesity, unspecified Essential (primary) hypertension Unspecified essential hypertension Delirium Other alteration of consciousness Idiopathic hypotension Hypotension, unspecified Moderate protein-calorie malnutrition (HCC) Malnutrition of moderate degree Postoperative ileus (HCC) Other digestive system complications On total parenteral nutrition (TPN) Other specified conditions influencing health status Peripherally inserted central catheter (PICC) in place Postoperative urinary retention Hyponatremia Hyposmolality and/or hyponatremia Urinary tract infection associated with indwelling urethral catheter Preoperative examination- Primary Preoperative examination, unspecified Rectal cancer (HCC) Malignant neoplasm of rectum Type 2 diabetes mellitus with other specified complication, with long-term current use of insulin (HCC) Former smoker Personal history of tobacco use, presenting hazards to health History of CVA (cerebrovascular accident) Transient ischemic attack (TIA), and cerebral infarction without residual deficits Essential hypertension Unspecified essential hypertension Coronary artery disease involving twenty-nine [place] coronary artery of twenty-nine [place] heart without angina pectoris Other hyperlipidemia Bilateral carotid artery stenosis Occlusion and stenosis of carotid artery without mention of cerebral infarction H/O aorto-femoral bypass Personal history of surgery to heart and great vessels, presenting hazards to health 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 rupture Benign prostatic hyperplasia without lower urinary tract symptoms Stage 3a chronic kidney disease (HCC) Unspecified hypothyroidism Type 2 diabetes mellitus with other circulatory complication, with long-term current use of insulin ([facility]) Hospital discharge follow-up- Primary Other follow-up examination Recurrent UTI Urinary tract infection, site not specified Type 2 diabetes mellitus with other circulatory complication, with long-term current use of insulin ([facility]) H/O aorto-femoral bypass Personal history of surgery to heart and great vessels, presenting hazards to health Abdominal aortic aneurysm (AAA) without rupture, unspecified part 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 rupture, unspecified part Stage 3a chronic kidney disease (HCC) Vitamin D deficiency Unspecified vitamin D deficiency Unspecified hypothyroidism Encounter for immunization Need for other specified prophylactic vaccination against single bacterial disease History of rectal cancer Personal history of malignant neoplasm of rectum, rectosigmoid junction, and anus Urinary retention Retention of urine, unspecified Hydronephrosis of right kidney Hydronephrosis Chronic obstructive pulmonary disease, unspecified COPD type (HCC) Eosinophilic esophagitis Wound infection Posttraumatic wound infection not elsewhere classified Screening for diabetic retinopathy Screening for other eye conditions [facility] Diagnosis Postprocedural hypotension- Primary Other iatrogenic hypotension Respiratory failure with hypoxia, unspecified chronicity (HCC) Postprocedural hypotension Other iatrogenic hypotension Acute postoperative respiratory insufficiency Other pulmonary insufficiency, not elsewhere classified, following trauma and surgery Acute post-operative pain Coronary artery disease involving twenty-nine [place] coronary artery of twenty[place]nine [place] heart without angina pectoris 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HCC) Colostomy status Moderate protein-calorie malnutrition (HCC) Malnutrition of moderate degree Rectal cancer (HCC) Malignant neoplasm of rectum Unspecified hypothyroidism Essential (primary) hypertension Unspecified essential hypertension Idiopathic hypotension Hypotension, unspecified Rectal cancer (HCC) Malignant neoplasm of rectum History of CVA (cerebrovascular accident) Transient ischemic attack (TIA), and cerebral infarction without residual deficits Carotid artery disease Unspecified disorders of arteries and arterioles BPH (benign prostatic hyperplasia) Unspecified hyperplasia of prostate without urinary obstruction and other lower urinary tract symptoms (LUTS) CAD (coronary artery disease), twenty-nine [place] coronary artery Coronary atherosclerosis of twenty-nine [place] coronary artery Unspecified hypothyroidism 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HCC) Colostomy status Acute postoperative respiratory insufficiency Other pulmonary insufficiency, not elsewhere classified, following trauma and surgery Metabolic acidosis Acidosis Hypoalbuminemia Other disorders of plasma protein metabolism Obesity, Class I, BMI 30-34.9 Obesity, unspecified Essential (primary) hypertension Unspecified essential hypertension Delirium Other alteration of consciousness Idiopathic hypotension Hypotension, unspecified Moderate protein-calorie malnutrition (HCC) Malnutrition of moderate degree Postoperative ileus (HCC) Other digestive system complications On total parenteral nutrition (TPN) Other specified conditions influencing health status Peripherally inserted central catheter (PICC) in place Postoperative urinary retention Hyponatremia Hyposmolality and/or hyponatremia Urinary tract infection associated with indwelling urethral catheter Preoperative examination- Primary Preoperative examination, unspecified Rectal cancer (HCC) Malignant neoplasm of rectum Type 2 diabetes mellitus with other specified complication, with long-term current use of insulin (HCC) Former smoker Personal history of tobacco use, presenting hazards to health History of CVA (cerebrovascular accident) Transient ischemic attack (TIA), and cerebral infarction without residual deficits Essential hypertension Unspecified essential hypertension Coronary artery disease involving twenty-nine [place] coronary artery of twenty-nine [place] heart without angina pectoris Other hyperlipidemia Bilateral carotid artery stenosis Occlusion and stenosis of carotid artery without mention of cerebral infarction H/O aorto-femoral bypass Personal history of surgery to heart and great vessels, presenting hazards to health 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 rupture Benign prostatic hyperplasia without lower urinary tract symptoms Stage 3a chronic kidney disease (HCC) Unspecified hypothyroidism Type 2 diabetes mellitus with other circulatory complication, with long-term current use of insulin (HCC) Onychomycosis- Primary Dermatophytosis of nail Pain in toe of left foot Pain in limb Pain in toe of right foot Pain in limb Diabetic polyneuropathy associated with type 2 diabetes mellitus (HCC) documented in this encounter [facility]* Diagnosis Postprocedural hypotension- Primary Other iatrogenic hypotension Respiratory failure with hypoxia, unspecified chronicity (HCC) Postprocedural hypotension Other iatrogenic hypotension Acute postoperative respiratory insufficiency Other pulmonary insufficiency, not elsewhere classified, following trauma and surgery Acute post-operative pain Coronary artery disease involving twenty-nine [place] coronary artery of twenty-nine [place] heart without angina pectoris 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HCC) Colostomy status Moderate protein-calorie malnutrition (HCC) Malnutrition of moderate degree Rectal cancer (HCC) Malignant neoplasm of rectum Unspecified hypothyroidism Essential (primary) hypertension Unspecified essential hypertension Idiopathic hypotension Hypotension, unspecified Rectal cancer (HCC) Malignant neoplasm of rectum History of CVA (cerebrovascular accident) Transient ischemic attack (TIA), and cerebral infarction without residual deficits Carotid artery disease Unspecified disorders of arteries and arterioles BPH (benign prostatic hyperplasia) Unspecified hyperplasia of prostate without urinary obstruction and other lower urinary tract symptoms (LUTS) CAD (coronary artery disease), twenty-nine palms coronary artery Coronary atherosclerosis of twenty-nine palms coronary artery Unspecified hypothyroidism 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HCC) Colostomy status Acute postoperative respiratory insufficiency Other pulmonary insufficiency, not elsewhere classified, following trauma and surgery Metabolic acidosis Acidosis Hypoalbuminemia Other disorders of plasma protein metabolism Obesity, Class I, BMI 30-34.9 Obesity, unspecified Essential (primary) hypertension Unspecified essential hypertension Delirium Other alteration of consciousness Idiopathic hypotension Hypotension, unspecified Moderate protein-calorie malnutrition (HCC) Malnutrition of moderate degree Postoperative ileus (HCC) Other digestive system complications On total parenteral nutrition (TPN) Other specified conditions influencing health status Peripherally inserted central catheter (PICC) in place Postoperative urinary retention Hyponatremia Hyposmolality and/or hyponatremia Urinary tract infection associated with indwelling urethral catheter Preoperative examination- Primary Preoperative examination, unspecified Rectal cancer (HCC) Malignant neoplasm of rectum Type 2 diabetes mellitus with other specified complication, with long-term current use of insulin (HCC) Former smoker Personal history of tobacco use, presenting hazards to health History of CVA (cerebrovascular accident) Transient ischemic attack (TIA), and cerebral infarction without residual deficits Essential hypertension Unspecified essential hypertension Coronary artery disease involving twenty-nine palms coronary artery of twenty-nine [place] heart without angina pectoris Other hyperlipidemia Bilateral carotid artery stenosis Occlusion and stenosis of carotid artery without mention of cerebral infarction H/O aorto-femoral bypass Personal history of surgery to heart and great vessels, presenting hazards to health 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 rupture Benign prostatic hyperplasia without lower urinary tract symptoms Stage 3a chronic kidney disease (HCC) Unspecified hypothyroidism Type 2 diabetes mellitus with other circulatory complication, with long-term current use of insulin (HCC) Rales- Primary Abnormal chest sounds [facility] Postprocedural hypotension- Primary Other iatrogenic hypotension Respiratory failure with hypoxia, unspecified chronicity (HCC) Postprocedural hypotension Other iatrogenic hypotension Acute postoperative respiratory insufficiency Other pulmonary insufficiency, not elsewhere classified, following trauma and surgery Acute post-operative pain Coronary artery disease involving twenty-nine palms coronary artery of twenty[place]nine [place] heart without angina pectoris 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HCC) Colostomy status Moderate protein-calorie malnutrition (HCC) Malnutrition of moderate degree Rectal cancer (HCC) Malignant neoplasm of rectum Unspecified hypothyroidism Essential (primary) hypertension Unspecified essential hypertension Idiopathic hypotension Hypotension, unspecified Rectal cancer (HCC) Malignant neoplasm of rectum History of CVA (cerebrovascular accident) Transient ischemic attack (TIA), and cerebral infarction without residual deficits Carotid artery disease Unspecified disorders of arteries and arterioles BPH (benign prostatic hyperplasia) Unspecified hyperplasia of prostate without urinary obstruction and other lower urinary tract symptoms (LUTS) CAD (coronary artery disease), [place]-nine [place] coronary artery Coronary atherosclerosis of twenty-nine [place] coronary artery Unspecified hypothyroidism 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HCC) Colostomy status Acute postoperative respiratory insufficiency Other pulmonary insufficiency, not elsewhere classified, following trauma and surgery Metabolic acidosis Acidosis Hypoalbuminemia Other disorders of plasma protein metabolism Obesity, Class I, BMI 30-34.9 Obesity, unspecified Essential (primary) hypertension Unspecified essential hypertension Delirium Other alteration of consciousness Idiopathic hypotension Hypotension, unspecified Moderate protein-calorie malnutrition (HCC) Malnutrition of moderate degree Postoperative ileus (HCC) Other digestive system complications On total parenteral nutrition (TPN) Other specified conditions influencing health status Peripherally inserted central catheter (PICC) in place Postoperative urinary retention Hyponatremia Hyposmolality and/or hyponatremia Urinary tract infection associated with indwelling urethral catheter Preoperative examination- Primary Preoperative examination, unspecified Rectal cancer (HCC) Malignant neoplasm of rectum Type 2 diabetes mellitus with other specified complication, with long-term current use of insulin (HCC) Former smoker Personal history of tobacco use, presenting hazards to health History of CVA (cerebrovascular accident) Transient ischemic attack (TIA), and cerebral infarction without residual deficits Essential hypertension Unspecified essential hypertension Coronary artery disease involving twenty-nine [place] coronary artery of twenty[place]nine [place] heart without angina pectoris Other hyperlipidemia Bilateral carotid artery stenosis Occlusion and stenosis of carotid artery without mention of cerebral infarction H/O aorto-femoral bypass Personal history of surgery to heart and great vessels, presenting hazards to health 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 rupture Benign prostatic hyperplasia without lower urinary tract symptoms Stage 3a chronic kidney disease (HCC) Unspecified hypothyroidism Type 2 diabetes mellitus with other circulatory complication, with long-term current use of insulin (HCC) History of rectal cancer- Primary Personal history of malignant neoplasm of rectum, rectosigmoid junction, and anus Stage 3 chronic kidney disease, unspecified whether stage 3a or 3b CKD (HCC) Upper GI bleed Hemorrhage of gastrointestinal tract, unspecified [facility] Postprocedural hypotension- Primary Other iatrogenic hypotension Respiratory failure with hypoxia, unspecified chronicity (HCC) Postprocedural hypotension Other iatrogenic hypotension Acute postoperative respiratory insufficiency Other pulmonary insufficiency, not elsewhere classified, following trauma and surgery Acute post-operative pain Coronary artery disease involving twenty-nine [place] coronary artery of twenty[place]nine [place] heart without angina pectoris 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HCC) Colostomy status Moderate protein-calorie malnutrition (HCC) Malnutrition of moderate degree Rectal cancer (HCC) Malignant neoplasm of rectum Unspecified hypothyroidism Essential (primary) hypertension Unspecified essential hypertension Idiopathic hypotension Hypotension, unspecified Rectal cancer (HCC) Malignant neoplasm of rectum History of CVA (cerebrovascular accident) Transient ischemic attack (TIA), and cerebral infarction without residual deficits Carotid artery disease Unspecified disorders of arteries and arterioles BPH (benign prostatic hyperplasia) Unspecified hyperplasia of prostate without urinary obstruction and other lower urinary tract symptoms (LUTS) CAD (coronary artery disease), [place]-nine [place] coronary artery Coronary atherosclerosis of twenty-nine [place] coronary artery Unspecified hypothyroidism 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HCC) Colostomy status Acute postoperative respiratory insufficiency Other pulmonary insufficiency, not elsewhere classified, following trauma and surgery Metabolic acidosis Acidosis Hypoalbuminemia Other disorders of plasma protein metabolism Obesity, Class I, BMI 30-34.9 Obesity, unspecified Essential (primary) hypertension Unspecified essential hypertension Delirium Other alteration of consciousness Idiopathic hypotension Hypotension, unspecified Moderate protein-calorie malnutrition (HCC) Malnutrition of moderate degree Postoperative ileus (HCC) Other digestive system complications On total parenteral nutrition (TPN) Other specified conditions influencing health status Peripherally inserted central catheter (PICC) in place Postoperative urinary retention Hyponatremia Hyposmolality and/or hyponatremia Urinary tract infection associated with indwelling urethral catheter Preoperative examination- Primary Preoperative examination, unspecified Rectal cancer (HCC) Malignant neoplasm of rectum Type 2 diabetes mellitus with other specified complication, with long-term current use of insulin (HCC) Former smoker Personal history of tobacco use, presenting hazards to health History of CVA (cerebrovascular accident) Transient ischemic attack (TIA), and cerebral infarction without residual deficits Essential hypertension Unspecified essential hypertension Coronary artery disease involving twenty-nine [place] coronary artery of twenty[place]nine [place] heart without angina pectoris Other hyperlipidemia Bilateral carotid artery stenosis Occlusion and stenosis of carotid artery without mention of cerebral infarction H/O aorto-femoral bypass Personal history of surgery to heart and great vessels, presenting hazards to health 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 rupture Benign prostatic hyperplasia without lower urinary tract symptoms Stage 3a chronic kidney disease (HCC) Unspecified hypothyroidism Type 2 diabetes mellitus with other circulatory complication, with long-term current use of insulin (HCC) Recurrent UTI- Primary Urinary tract infection, site not specified [facility] Postprocedural hypotension- Primary Other iatrogenic hypotension Respiratory failure with hypoxia, unspecified chronicity (HCC) Postprocedural hypotension Other iatrogenic hypotension Acute postoperative respiratory insufficiency Other pulmonary insufficiency, not elsewhere classified, following trauma and surgery Acute post-operative pain Coronary artery disease involving twenty-nine [place] coronary artery of twenty[place]nine [place] heart without angina pectoris 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HCC) Colostomy status Moderate protein-calorie malnutrition (HCC) Malnutrition of moderate degree Rectal cancer (HCC) Malignant neoplasm of rectum Unspecified hypothyroidism Essential (primary) hypertension Unspecified essential hypertension Idiopathic hypotension Hypotension, unspecified Rectal cancer (HCC) Malignant neoplasm of rectum History of CVA (cerebrovascular accident) Transient ischemic attack (TIA), and cerebral infarction without residual deficits Carotid artery disease Unspecified disorders of arteries and arterioles BPH (benign prostatic hyperplasia) Unspecified hyperplasia of prostate without urinary obstruction and other lower urinary tract symptoms (LUTS) CAD (coronary artery disease), [place]-nine [place] coronary artery Coronary atherosclerosis of twenty-nine [place] coronary artery Unspecified hypothyroidism 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HCC) Colostomy status Acute postoperative respiratory insufficiency Other pulmonary insufficiency, not elsewhere classified, following trauma and surgery Metabolic acidosis Acidosis Hypoalbuminemia Other disorders of plasma protein metabolism Obesity, Class I, BMI 30-34.9 Obesity, unspecified Essential (primary) hypertension Unspecified essential hypertension Delirium Other alteration of consciousness Idiopathic hypotension Hypotension, unspecified Moderate protein-calorie malnutrition (HCC) Malnutrition of moderate degree Postoperative ileus (HCC) Other digestive system complications On total parenteral nutrition (TPN) Other specified conditions influencing health status Peripherally inserted central catheter (PICC) in place Postoperative urinary retention Hyponatremia Hyposmolality and/or hyponatremia Urinary tract infection associated with indwelling urethral catheter Preoperative examination- Primary Preoperative examination, unspecified Rectal cancer (HCC) Malignant neoplasm of rectum Type 2 diabetes mellitus with other specified complication, with long-term current use of insulin (HCC) Former smoker Personal history of tobacco use, presenting hazards to health History of CVA (cerebrovascular accident) Transient ischemic attack (TIA), and cerebral infarction without residual deficits Essential hypertension Unspecified essential hypertension Coronary artery disease involving twenty-nine [place] coronary artery of twenty[place]nine [place] heart without angina pectoris Other hyperlipidemia Bilateral carotid artery stenosis Occlusion and stenosis of carotid artery without mention of cerebral infarction H/O aorto-femoral bypass Personal history of surgery to heart and great vessels, presenting hazards to health 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 rupture Benign prostatic hyperplasia without lower urinary tract symptoms Stage 3a chronic kidney disease (HCC) Unspecified hypothyroidism Type 2 diabetes mellitus with other circulatory complication, with long-term current use of insulin (HCC) Urinary tract infection associated with indwelling urethral catheter, initial encounter- Primary [facility] Postprocedural hypotension- Primary Other iatrogenic hypotension Respiratory failure with hypoxia, unspecified chronicity (HCC) Postprocedural hypotension Other iatrogenic hypotension Acute postoperative respiratory insufficiency Other pulmonary insufficiency, not elsewhere classified, following trauma and surgery Acute post-operative pain Coronary artery disease involving twenty-nine [place] coronary artery of twenty[place]nine [place] heart without angina pectoris 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HCC) Colostomy status Moderate protein-calorie malnutrition (HCC) Malnutrition of moderate degree Rectal cancer (HCC) Malignant neoplasm of rectum Unspecified hypothyroidism Essential (primary) hypertension Unspecified essential hypertension Idiopathic hypotension Hypotension, unspecified Rectal cancer (HCC) Malignant neoplasm of rectum Carotid artery disease Unspecified disorders of arteries and arterioles CAD (coronary artery disease), [place]nine [place] coronary artery Coronary atherosclerosis of twenty-nine [place] coronary artery Acute postoperative respiratory insufficiency Other pulmonary insufficiency, not elsewhere classified, following trauma and surgery Metabolic acidosis Acidosis Hypoalbuminemia Other disorders of plasma protein metabolism Obesity, Class I, BMI 30-34.9 Obesity, unspecified Essential (primary) hypertension Unspecified essential hypertension Delirium Other alteration of consciousness Idiopathic hypotension Hypotension, unspecified Moderate protein-calorie malnutrition (HCC) Malnutrition of moderate degree Postoperative ileus (HCC) Other digestive system complications On total parenteral nutrition (TPN) Other specified conditions influencing health status Peripherally inserted central catheter (PICC) in place Postoperative urinary retention Hyponatremia Hyposmolality and/or hyponatremia Urinary tract infection associated with indwelling urethral catheter Preoperative examination- Primary Preoperative examination, unspecified Rectal cancer (HCC) Malignant neoplasm of rectum Type 2 diabetes mellitus with other specified complication, with long-term current use of insulin (HCC) Former smoker Personal history of tobacco use, presenting hazards to health History of CVA (cerebrovascular accident) Transient ischemic attack (TIA), and cerebral infarction without residual deficits Essential hypertension Unspecified essential hypertension Coronary artery disease involving twenty-nine [place] coronary artery of twenty[place]nine [place] heart without angina pectoris Other hyperlipidemia Bilateral carotid artery stenosis Occlusion and stenosis of carotid artery without mention of cerebral infarction H/O aorto-femoral bypass Personal history of surgery to heart and great vessels, presenting hazards to health 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 rupture Benign prostatic hyperplasia without lower urinary tract symptoms Stage 3a chronic kidney disease (HCC) Unspecified hypothyroidism Type 2 diabetes mellitus with other circulatory complication, with long-term current use of insulin (HCC) Vitamin D deficiency Unspecified vitamin D deficiency [facility] Diagnosis Postprocedural hypotension- Primary Other iatrogenic hypotension Respiratory failure with hypoxia, unspecified chronicity (HCC) Postprocedural hypotension Other iatrogenic hypotension Acute postoperative respiratory insufficiency Other pulmonary insufficiency, not elsewhere classified, following trauma and surgery Acute post-operative pain Coronary artery disease involving twenty-nine [place] coronary artery of twenty[place]nine [place] heart without angina pectoris 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HCC) Colostomy status Moderate protein-calorie malnutrition (HCC) Malnutrition of moderate degree Rectal cancer (HCC) Malignant neoplasm of rectum Unspecified hypothyroidism Essential (primary) hypertension Unspecified essential hypertension Idiopathic hypotension Hypotension, unspecified Rectal cancer (HCC) Malignant neoplasm of rectum Carotid artery disease Unspecified disorders of arteries and arterioles CAD (coronary artery disease), twenty-nine [place] coronary artery Coronary atherosclerosis of twenty-nine [place] coronary artery Acute postoperative respiratory insufficiency Other pulmonary insufficiency, not elsewhere classified, following trauma and surgery Metabolic acidosis Acidosis Hypoalbuminemia Other disorders of plasma protein metabolism Obesity, Class I, BMI 30-34.9 Obesity, unspecified Essential (primary) hypertension Unspecified essential hypertension Delirium Other alteration of consciousness Idiopathic hypotension Hypotension, unspecified Moderate protein-calorie malnutrition (HCC) Malnutrition of moderate degree Postoperative ileus (HCC) Other digestive system complications On total parenteral nutrition (TPN) Other specified conditions influencing health status Peripherally inserted central catheter (PICC) in place Postoperative urinary retention Hyponatremia Hyposmolality and/or hyponatremia Urinary tract infection associated with indwelling urethral catheter Preoperative examination- Primary Preoperative examination, unspecified Rectal cancer (HCC) Malignant neoplasm of rectum Type 2 diabetes mellitus with other specified complication, with long-term current use of insulin (HCC) Former smoker Personal history of tobacco use, presenting hazards to health History of CVA (cerebrovascular accident) Transient ischemic attack (TIA), and cerebral infarction without residual deficits Essential hypertension Unspecified essential hypertension Coronary artery disease involving twenty-nine [place] coronary artery of twenty[place]nine [place] heart without angina pectoris Other hyperlipidemia Bilateral carotid artery stenosis Occlusion and stenosis of carotid artery without mention of cerebral infarction H/O aorto-femoral bypass Personal history of surgery to heart and great vessels, presenting hazards to health 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 rupture Benign prostatic hyperplasia without lower urinary tract symptoms Stage 3a chronic kidney disease (HCC) Unspecified hypothyroidism Type 2 diabetes mellitus with other circulatory complication, with long-term current use of insulin (HCC) Onychomycosis- Primary Dermatophytosis of nail Pain in toe of left foot Pain in limb Pain in toe of right foot Pain in limb Diabetic polyneuropathy associated with type 2 diabetes mellitus (HCC) PAD (peripheral artery disease) Peripheral vascular disease, unspecified documented in this encounter [facility] Discharge instructionsAdditional Instructions Antibiotics as directed. Follow-up with your primary care provider and vascular surgeon. The swelling of your scrotum may be related to the chronic swelling of your left leg and the vascular abnormality. Return with fever, new or worsening symptoms.[facility] Work Phone: Progress note Author Aníbal Vela [facility] June 26, 2023 5:03pm Note Date/Time June 26, 2023 5:0 3pm [facility] Medical Records Department [address] [place] [address] Progress Note - Hospitalist 06/26/23 1700 MR#: [id number] Acct: [id number] Name: EMELIA JOHNSON Rep #:[id number] : 1950 73 From: Aníbal Vela DO PCP: Jenae Santamaria MD Status:ADM IN Location: [place] [address] Hospitalist Note Oxygen testing reviewed, patient is ambulatory in the home and community and requires home oxygen with portability, patient requires 3 L of oxygen on ambulation, he requires no oxygen at rest. 06/26/23 1703 <Electronically signed by Aníbal Vela DO> Cosigner Signature (if applicable): CC: ~ Signed [facility] Work Phone: Reason for referral (narrative)* Diagnostic Procedure Only (Urgent) - Pending Review Specialty Diagnoses / Procedures Referred By Contac t Referred To Contact US IMAGING Diagnoses Left leg swelling Procedures US DVT LOWER LEFT DUP-SCAN XTR VEINS UNILATERAL/LIMITED STUDY Brian Cummings MD [address] [place] [address] [place] [address] Referral ID Status Reason Start Date Expiration Date Visits Requested Visits Authorized [id number] Pending Review Auto-Generat ed Referral 05/27/2023 06/25/2024 1 1 * MRI/CT (Routine) - Pending Review Specialty Diagnoses / Procedures Referred By Contac t Referred To Contact CT IMAGING Diagnoses Rectal cancer (HCC) Procedures CT ABD/PEL WO IVCON CT ABD & PELVIS W/O CONTRAST Brian Cummings MD [address] [place] [address] [place] [address] Referral ID Status Reason Start Date Expiration Date Visits Requested Visits Authorized [id number] Pending Review Auto-Generat ed Referral 05/27/2023 06/25/2024 1 1 * MRI/CT (Routine) - Pending Review Specialty Diagnoses / Procedures Referred By Contac t Referred To Contact CT IMAGING Diagnoses Rectal cancer (HCC) Procedures CT CHEST WO IVCON DIAGNOSTIC COMPUTED TOMOGRAPHY THORAX W/O CNTRST Brian Cummings MD [address] [place] [address] [place] [address] Referral ID Status Reason Start Date Expiration Date Visits Requested Visits Authorized [id number] Pending Review Auto-Generat ed Referral 05/27/2023 06/25/2024 1 1 [facility] for referral (narrative)* Diagnostic Procedure Only (Urgent) - Closed Specialty Diagnoses / Procedures Referred By Contac t Referred To Contact US IMAGING Diagnoses Left leg swelling Procedures US DVT LOWER LEFT DUP-SCAN XTR VEINS UNILATERAL/LIMITED STUDY Brian Cummings MD [address] [address] [place] [address] Referral ID Status Reason Start Date Expiration Date V isits Requested Visits Authorized [id number] Closed Auto-Generate d Referral 05/27/2023 06/25/2024 1 1 [facility] for referral (narrative)* Diagnostic Procedure Only (Routine) - Pending Review Specialty Diagnoses / Procedures Referred By Contac t Referred To Contact XR IMAGING Diagnoses Oropharyngeal dysphagia Procedures XR MODIFIED BARIUM SWALLOW W SPEECH THERAPY RADIOLOGIC EXAM SWALLOW FUNCTION CONTRAST STUDY Jenae Santamaria MD [address] [place] [address] [place] [address] Referral ID Status Reason Start Date Expiration Date Visits Requested Visits Authorized [id number] Pending Review Auto-Generat ed Referral 08/03/2023 09/01/2024 1 1 * Diagnostic Procedure Only (Routine) - Pending Review Specialty Diagnoses / Procedures Referred By Contac t Referred To Contact US IMAGING Diagnoses PAD (peripheral artery disease) (HCC) Procedures US ARTERIAL PVR LOWER NON-INVASIVE PHYSIOLOGIC STUDY EXTREMITY 3 Jenae Meza MD [address] [place] [address] [place] [address] Referral ID Status Reason Start Date Expiration Date Visits Requested Visits Authorized [id number] Pending Review Auto-Generat ed Referral 08/03/2023 09/01/2024 1 1 * Diagnostic Procedure Only (Routine) - Pending Review Specialty Diagnoses / Procedures Referred By Contac t Referred To Contact US IMAGING Diagnoses PAD (peripheral artery disease) (HCC) Procedures US ANKLE BRACHIAL INDICES NON-INVAS PHYSIOLOGIC STD EXTREMITY ART 2 LEVEL Jenae Santamaria MD [address] [place] [address] [place] [address] Referral ID Status Reason Start Date Expiration Date Visits Requested Visits Authorized [id number] Pending Review Auto-Generat ed Referral 08/03/2023 09/01/2024 1 1 [facility] for referral (narrative)* Diagnostic Procedure Only (Urgent) - Pending Review Specialty Diagnoses / Procedures Referred By Contac t Referred To Contact US IMAGING Diagnoses Acute deep vein thrombosis (DVT) of proximal vein of left lower extremity (HCC) Procedures US DVT LOWER LEFT DUP-SCAN XTR VEINS UNILATERAL/LIMITED STUDY Jenae Santamaria MD [address] [place] [address] [place] [address] Referral ID Status Reason Start Date Expiration Date Visits Requested Visits Authorized [id number] Pending Review Auto-Generat ed Referral 09/10/2023 10/09/2024 1 1 [facility] for referral (narrative)* Diagnostic Procedure Only (Routine) - Closed Specialty Diagnoses / Procedures Referred By Contac t Referred To Contact US IMAGING Diagnoses Acute deep vein thrombosis (DVT) of proximal vein of left lower extremity (HCC) Procedures US DVT LOWER LEFT DUP-SCAN XTR VEINS UNILATERAL/LIMITED STUDY Jenae Santamaria MD [address] [place] [address] [place] [address] Referral ID Status Reason Start Date Expiration Date V isits Requested Visits Authorized [id number] Closed Auto-Generate d Referral 08/27/2023 09/25/2024 1 1 [facility] for referral (narrative)* Diagnostic Procedure Only (Routine) - New Request Specialty Diagnoses / Procedures Referred By Shelley murdock Referred To Contact US IMAGING Diagnoses Symptomatic stenosis of right carotid artery Procedures US CAROTID BILATERAL Jenae Santamaria MD [address] [place] [address] [place] [address] Referral ID Status Reason Start Date Expiration Date Visits Requested Visits Authorized [id number] New Request Auto-Generat ed Referral 12/10/2023 01/08/2025 1 1 * MRI/CT (Routine) - New Request Specialty Diagnoses / Procedures Referred By Shelley murdock Referred To Contact CT IMAGING Diagnoses Swelling of thigh Procedures CT FEMUR WO IVCON LEFT CT LOWER EXTREMITY W/O CONTRAST MATERIAL Jenae Santamaria MD [address] [place] [address] [place] [address] Referral ID Status Reason Start Date Expiration Date Visits Requested Visits Authorized [id number] New Request Auto-Generat ed Referral 12/10/2023 01/08/2025 1 1 [facility] for referral (narrative)No reason for referral information [facility] N[facility]ative* Diagnostic Procedure Only (Urgent) - Closed Specialty Diagnoses / Procedures Referred By Shelley t Referred To Contact US IMAGING Diagnoses Left leg swelling Procedures US DVT LOWER LEFT DUP-SCAN XTR VEINS UNILATERAL/LIMITED STUDY Brian Cummings MD [address] [address] [place] [address] Referral ID Status Reason Start Date Expiration Date V isits Requested Visits Authorized [id number] Closed Auto-Generate d Referral 05/27/2023 06/25/2024 1 1 [facility] for visit Narrative* Diagnostic Procedure Only (Routine) - Closed Specialty Diagnoses / Procedures Referred By Shelley t Referred To Contact US IMAGING Diagnoses Acute deep vein thrombosis (DVT) of proximal vein of left lower extremity (HCC) Procedures US DVT LOWER LEFT DUP-SCAN XTR VEINS UNILATERAL/LIMITED STUDY Jenae Santamaria MD [address] [place] [address] [place] [address] Referral ID Status Reason Start Date Expiration Date V isits Requested Visits Authorized [id number] Closed Auto-Generate d Referral 08/27/2023 09/25/2024 1 1 [facility] Advance Directives Advance Directive Response Recorded Date/ Time Living Will Yes November 10 0 1:54am Does Patient Have Advance Directives? No November 11, 2019 1:54am Healthcare POA? Yes November 10 0 1:54am Code Status Full Code November 09 0 4:23pm Legal POA Yes November 10 0 1:54am Advance Directive Response Recorded Date/ Time Living Will Yes June 22, 2023 8:14pm Power of Pulverizing And Sifting Operator Yes June 21 8:14pm Name of Medical Power of Pulverizing And Sifting Operator ? June 22, 2023 8:14pm Advance Directive Response Recorded Date/ Time Name of Medical Power of Pulverizing And Sifting Operator Balta Cabral - daughter June 23, 2023 12:56am Living Will No June 23, 2023 12:56am Power of Pulverizing And Sifting Operator Yes June 22 12:56am Advance Directive Response Recorded Date/ Time Living Will No July 01, 2024 9:27am Do you have a Healthcare Power of Pulverizing And Sifting Operator? No July 01, 2024 9:27am Advance Directive Response Recorded Date/ Time Living Will No July 01, 2024 1:07pm Do you have a Healthcare Power of Pulverizing And Sifting Operator? No July 01, 2024 1:07pm Advance Directive Response Recorded Date/ Time Living Will Yes July 13, 2024 5:03pm Do you have a Healthcare Power of Pulverizing And Sifting Operator? Yes July 13, 2024 5:03pm Name of Medical Power of Pulverizing And Sifting Operator Shaunna July 13, 2024 5:03pm Living Will No July 01, 2024 1:07pm Do you have a Healthcare Power of Pulverizing And Sifting Operator? No July 01, 2024 1:07pm Advance Directive Response Recorded Date/ Time Living Will Yes July 13, 2024 10:15pm Do you have a Healthcare Power of Pulverizing And Sifting Operator? Yes July 13, 2024 10:15pm Name of Medical Power of Pulverizing And Sifting Operator Shaunna July 13, 2024 10:15pm Living Will No July 01, 2024 1:07pm Do you have a Healthcare Power of Pulverizing And Sifting Operator? No July 01, 2024 1:07pm Advance Directive Response Recorded Date/ Time Living Will Yes July 13, 2024 10:15pm Do you have a Healthcare Power of Pulverizing And Sifting Operator? Yes July 13, 2024 10:15pm Name of Medical Power of Pulverizing And Sifting Operator Shaunna July 13, 2024 10:15pm Do you have a Healthcare Power of Pulverizing And Sifting Operator? Yes September 27, 2024 11:49am Living Will No July 01, 2024 1:07pm Do you have a Healthcare Power of Pulverizing And Sifting Operator? No July 01, 2024 1:07pm Advance Directive Response Recorded Date/ Time Do you have a Healthcare Power of Pulverizing And Sifting Operator? Yes September 27, 2024 11:49am Chief Complaint and Reason for Visit Chief Complaint [id number] R33.9 LABS 1 MO; INCOMPLETE EMPTYING, URGENCY Chief Complaint [id number] R33.9 LABS 1 MO; INCOMPLETE EMPTYING, URGENCY HOSP FU; CI Chief Complaint R33.9 LABS 1 MO; INCOMPLETE EMPTYING, URGENCY HOSP FU; CI bph/incomplete emptying Chief Complaint HOSP FU; CI bph/incomplete emptying URINE DROP OFF maddox placement/per Swan Chief Complaint maddox placement/per Swan Altered mental status, unspecified TESTING FILL PULL VOID 4MO EXAM/BPH/PSA PRIOR Chief Complaint SEPSIS DUE TO UTI & ASPIRATION PNEUMONIA WITH Reason for Visit Acidosis, lactic Acute hypoxemic respiratory failure FIOR (acute kidney injury) Aspiration into respiratory tract Complicated urinary tract infection Encephalopathy due to infection Severe sepsis with acute organ dysfunction Chief Complaint SEPSIS DUE TO UTI & ASPIRATION PNEUMONIA WITH SEPSIS DUE TO UTI & ASPIRATION PNEUMONIA WITH SEPSIS DUE TO UTI & ASPIRATION PNEUMONIA WITH SEPSIS DUE TO UTI & ASPIRATION PNEUMONIA WITH SEPSIS DUE TO UTI & ASPIRATION PNEUMONIA WITH SEPSIS DUE TO UTI & ASPIRATION PNEUMONIA WITH SEPSIS DUE TO UTI & ASPIRATION PNEUMONIA WITH Reason for Visit Acidosis, lactic Acute hypoxemic respiratory failure FIOR (acute kidney injury) Aspiration into respiratory tract Cholelithiasis Complicated urinary tract infection DVT (deep venous thrombosis) Encephalopathy due to infection Enteritis Severe sepsis with acute organ dysfunction Chief Complaint Admit Date COMPLICATED UTI W/ CONCERN FOR SEPSIS Ap ril 2024 11:19am Reason for Visit Admit Date Acidosis, lactic July 01, 2024 11:1 9am Acute UTI July 01, 2024 11:1 9am Leukocytosis July 01, 2024 11:1 9am Vomiting July 01, 2024 11:1 9am Chief Complaint Admit Date COMPLICATED UTI W/ CONCERN FOR SEPSIS LE FT LOWER July 01, 2024 11:19am COMPLICATED UTI W/ CONCERN FOR SEPSIS Ap ril 2024 8:38am COMPLICATED UTI W/ CONCERN FOR SEPSIS Ap ril 2024 10:39am COMPLICATED UTI W/ CONCERN FOR SEPSIS Ap ril 2024 5:11pm COMPLICATED UTI W/ CONCERN FOR SEPSIS Ap ril 2024 9:33am COMPLICATED UTI W/ CONCERN FOR SEPSIS Ap ril 2024 4:29pm COMPLICATED UTI W/ CONCERN FOR SEPSIS Ap ril 2024 5:07pm COMPLICATED UTI W/ CONCERN FOR SEPSIS LE FT LOWER July 05, 2024 8:31am COMPLICATED UTI W/ CONCERN FOR SEPSIS LE FT LOWER July 05, 2024 12:00pm COMPLICATED UTI W/ CONCERN FOR SEPSIS LE FT LOWER July 05, 2024 8:23pm COMPLICATED UTI W/ CONCERN FOR SEPSIS LE FT LOWER July 06, 2024 7:13am COMPLICATED UTI W/ CONCERN FOR SEPSIS LE FT LOWER July 06, 2024 3:54pm COMPLICATED UTI W/ CONCERN FOR SEPSIS LE FT LOWER July 07, 2024 12:13pm Reason for Visit Admit Date Acidosis, lactic July 01, 2024 11:1 9am Acute UTI July 01, 2024 11:1 9am Femoral arteriovenous fistula, left Apri l 2024 11:19am Leukocytosis July 01, 2024 11:1 9am Peripheral arterial disease with history of revascularization July 01, 2024 11:19am Sepsis July 01, 2024 11:1 9am Vomiting July 01, 2024 11:1 9am Encephalopathy acute July 01, 2024 11: 19am Chief Complaint Admit Date COMPLICATED UTI W/ CONCERN FOR SEPSIS LE FT LOWER July 01, 2024 11:19am COMPLICATED UTI W/ CONCERN FOR SEPSIS Ap ril 2024 8:38am COMPLICATED UTI W/ CONCERN FOR SEPSIS Ap ril 2024 10:39am COMPLICATED UTI W/ CONCERN FOR SEPSIS Ap ril 2024 5:11pm PREOP July 04, 2024 4:59 am COMPLICATED UTI W/ CONCERN FOR SEPSIS Ap ril 2024 9:33am COMPLICATED UTI W/ CONCERN FOR SEPSIS Ap ril 2024 4:29pm COMPLICATED UTI W/ CONCERN FOR SEPSIS Ap ril 2024 5:07pm COMPLICATED UTI W/ CONCERN FOR SEPSIS LE FT LOWER July 05, 2024 8:31am COMPLICATED UTI W/ CONCERN FOR SEPSIS LE FT LOWER July 05, 2024 12:00pm COMPLICATED UTI W/ CONCERN FOR SEPSIS LE FT LOWER July 05, 2024 8:23pm COMPLICATED UTI W/ CONCERN FOR SEPSIS LE FT LOWER July 06, 2024 7:13am COMPLICATED UTI W/ CONCERN FOR SEPSIS LE FT LOWER July 06, 2024 3:54pm COMPLICATED UTI W/ CONCERN FOR SEPSIS LE FT LOWER July 07, 2024 8:43am COMPLICATED UTI W/ CONCERN FOR SEPSIS LE FT LOWER July 07, 2024 12:13pm GI BLEED W/ABLA July 13, 2024 8:2 3pm Reason for Visit Admit Date Femoral arteriovenous fistula, left Apri l 2024 11:19am Acidosis, lactic July 01, 2024 11:1 9am Acute UTI July 01, 2024 11:1 9am Encephalopathy acute July 01, 2024 11: 19am Leukocytosis July 01, 2024 11:1 9am Sepsis July 01, 2024 11:1 9am Vomiting July 01, 2024 11:1 9am Peripheral arterial disease with history of revascularization July 01, 2024 11:19am Acute GI bleeding July 13, 2024 8:2 3pm Anemia July 13, 2024 8:2 3pm History of colon cancer July 13, 2024 8:23pm Chief Complaint Admit Date COMPLICATED UTI W/ CONCERN FOR SEPSIS LE FT LOWER July 01, 2024 11:19am COMPLICATED UTI W/ CONCERN FOR SEPSIS Ap ril 2024 8:38am COMPLICATED UTI W/ CONCERN FOR SEPSIS Ap ril 2024 10:39am COMPLICATED UTI W/ CONCERN FOR SEPSIS Ap ril 2024 5:11pm PREOP July 04, 2024 4:59 am COMPLICATED UTI W/ CONCERN FOR SEPSIS Ap ril 2024 9:33am COMPLICATED UTI W/ CONCERN FOR SEPSIS Ap ril 2024 4:29pm COMPLICATED UTI W/ CONCERN FOR SEPSIS Ap ril 2024 5:07pm COMPLICATED UTI W/ CONCERN FOR SEPSIS LE FT LOWER July 05, 2024 8:31am COMPLICATED UTI W/ CONCERN FOR SEPSIS LE FT LOWER July 05, 2024 12:00pm COMPLICATED UTI W/ CONCERN FOR SEPSIS LE FT LOWER July 05, 2024 8:23pm COMPLICATED UTI W/ CONCERN FOR SEPSIS LE FT LOWER July 06, 2024 7:13am COMPLICATED UTI W/ CONCERN FOR SEPSIS LE FT LOWER July 06, 2024 3:54pm COMPLICATED UTI W/ CONCERN FOR SEPSIS LE FT LOWER July 07, 2024 8:43am COMPLICATED UTI W/ CONCERN FOR SEPSIS LE FT LOWER July 07, 2024 12:13pm LAB WORK July 10, 2024 4:3 0am GI BLEED W/ABLA July 13, 2024 8:2 3pm GI BLEED W/ABLA July 14, 2024 7:4 6am GI BLEED W/ABLA July 14, 2024 1:1 0pm GI BLEED W/ABLA July 15, 2024 7:3 9am GI BLEED W/ABLA July 15, 2024 7:5 1am GI BLEED W/ABLA July 16, 2024 7:5 0am GI BLEED W/ABLA July 17, 2024 1:3 4pm GI BLEED W/ABLA July 17, 2024 6:0 0pm GI BLEED W/ABLA July 18, 2024 2:1 0pm GI BLEED W/ABLA July 19, 2024 3:4 6pm GI BLEED W/ABLA July 20, 2024 11: 33am GI BLEED W/ABLA July 20, 2024 6:2 1pm LAB WORK July 24, 2024 5:0 0am LABWORK July 28, 2024 5:00am LABWORK August 02, 2024 5:00am Post Angiogram August 14, 2024 2:58p m Reason for Visit Admit Date Femoral arteriovenous fistula, left Apri l 2024 11:19am Acidosis, lactic July 01, 2024 11:1 9am Acute UTI July 01, 2024 11:1 9am Encephalopathy acute July 01, 2024 11: 19am Leukocytosis July 01, 2024 11:1 9am Sepsis July 01, 2024 11:1 9am Vomiting July 01, 2024 11:1 9am Peripheral arterial disease with history of revascularization July 01, 2024 11:19am Acute GI bleeding July 13, 2024 8:2 3pm Anemia July 13, 2024 8:2 3pm Femoral arteriovenous fistula, left Apri l 2024 8:23pm History of colon cancer July 13, 2024 8:23pm Peripheral arterial disease with history of revascularization July 13, 2024 8:23pm Chief Complaint Admit Date COMPLICATED UTI W/ CONCERN FOR SEPSIS LE FT LOWER July 01, 2024 11:19am COMPLICATED UTI W/ CONCERN FOR SEPSIS Ap ril 2024 8:38am COMPLICATED UTI W/ CONCERN FOR SEPSIS Ap ril 2024 10:39am COMPLICATED UTI W/ CONCERN FOR SEPSIS Ap ril 2024 5:11pm PREOP July 04, 2024 4:59 am COMPLICATED UTI W/ CONCERN FOR SEPSIS Ap ril 2024 9:33am COMPLICATED UTI W/ CONCERN FOR SEPSIS Ap ril 2024 4:29pm COMPLICATED UTI W/ CONCERN FOR SEPSIS Ap ril 2024 5:07pm COMPLICATED UTI W/ CONCERN FOR SEPSIS LE FT LOWER July 05, 2024 8:31am COMPLICATED UTI W/ CONCERN FOR SEPSIS LE FT LOWER July 05, 2024 12:00pm COMPLICATED UTI W/ CONCERN FOR SEPSIS LE FT LOWER July 05, 2024 8:23pm COMPLICATED UTI W/ CONCERN FOR SEPSIS LE FT LOWER July 06, 2024 7:13am COMPLICATED UTI W/ CONCERN FOR SEPSIS LE FT LOWER July 06, 2024 3:54pm COMPLICATED UTI W/ CONCERN FOR SEPSIS LE FT LOWER July 07, 2024 8:43am COMPLICATED UTI W/ CONCERN FOR SEPSIS LE FT LOWER July 07, 2024 12:13pm LAB WORK July 10, 2024 4:3 0am GI BLEED W/ABLA July 13, 2024 8:2 3pm GI BLEED W/ABLA July 14, 2024 7:4 6am GI BLEED W/ABLA July 14, 2024 1:1 0pm GI BLEED W/ABLA July 15, 2024 7:3 9am GI BLEED W/ABLA July 15, 2024 7:5 1am GI BLEED W/ABLA July 16, 2024 7:5 0am GI BLEED W/ABLA July 17, 2024 1:3 4pm GI BLEED W/ABLA July 17, 2024 6:0 0pm GI BLEED W/ABLA July 18, 2024 2:1 0pm GI BLEED W/ABLA July 19, 2024 3:4 6pm GI BLEED W/ABLA July 20, 2024 11: 33am GI BLEED W/ABLA July 20, 2024 6:2 1pm LAB WORK July 24, 2024 5:0 0am LABWORK July 28, 2024 5:00am LAB WORK July 31, 2024 5:00am LABWORK August 02, 2024 5:00am Post Angiogram August 14, 2024 2:58p m EDEMA OF LLE AND SCROTUM September 27, 2024 11:44am Reason for Visit Admit Date Femoral arteriovenous fistula, left Apri l 2024 11:19am Acidosis, lactic July 01, 2024 11:1 9am Acute UTI July 01, 2024 11:1 9am Encephalopathy acute July 01, 2024 11: 19am Leukocytosis July 01, 2024 11:1 9am Sepsis July 01, 2024 11:1 9am Vomiting July 01, 2024 11:1 9am Peripheral arterial disease with history of revascularization July 01, 2024 11:19am Acute GI bleeding July 13, 2024 8:2 3pm Anemia July 13, 2024 8:2 3pm History of colon cancer July 13, 2024 8:23pm Femoral arteriovenous fistula, left Apri l 2024 8:23pm Peripheral arterial disease with history of revascularization July 13, 2024 8:23pm Femoral arteriovenous fistula, left August 14, 2024 2:58pm Chief Complaint Admit Date EDEMA OF LLE AND SCROTUM September 27, 2024 11:44am LAB WORK October 31, 2024 4:0 0am LAB WORK November 07, 2024 4: 00am LAB WORK November 14, 2024 5: 00am LAB WORK November 21, 2024 5: 00am LAB WORK December 12, 2024 5:00am LAB WORK December 26, 2024 5:00am GROUP HOME LAB WORK January 02, 2025 5:00am Assessments No Assessments Information AvailableNo Assessments Information AvailableNo Assessments Information AvailableNo Assessments Information AvailableNo Assessments Information Available Summary Purpose Family History No Family History Records Found Reason for Referral Specialty Diagnoses / Procedures Referred By Contac t Referred To Contact Diagnoses Retention of urine Procedures CONSULT TO [facility] Cameron Hernandez MD [address] [place] [address] Home Care [address] [place] [address] Referral ID Status Reason Start Date Expiration Date Visits Requested Visits Authorized [id number] Pending Review PCP Requested Referral 03/01/2023 05/30/2023 1 1 Specialty Diagnoses / Procedures Referred By Contac t Referred To Contact Colon and Rectal Surgery Diagnoses History of rectal cancer Procedures CONSULT TO COLO-RECTAL SURGERY OFFICE/OUTPATIENT [facility] 60 MINUTES Jenae Santamaria MD [address] [place] [address] Referral ID Status Reason Start Date Expiration Date Visits Requested Visits Authorized [id number] Authorized PCP Requested Referral 04/07/2023 04/06/2024 1 1 Specialty Diagnoses / Procedures Referred By Contac t Referred To Contact Oncology Diagnoses History of rectal cancer Procedures CONSULT TO ONCOLOGY OFFICE/OUTPATIENT [facility] 60 MINUTES Jenae Santamaria MD [address] [place] [address] Referral ID Status Reason Start Date Expiration Date Visits Requested Visits Authorized [id number] Authorized PCP Requested Referral 04/07/2023 04/06/2024 1 1 Specialty Diagnoses / Procedures Referred By Contac t Referred To Contact Nephrology Diagnoses Stage 3b chronic kidney disease (HCC) Procedures CONSULT TO NEPHROLOGY OFFICE/OUTPATIENT [facility] 60 MINUTES Jenae Santamaria MD [address] [place] [address] Referral ID Status Reason Start Date Expiration Date Visits Requested Visits Authorized [id number] Authorized PCP Requested Referral 04/07/2023 04/06/2024 1 1 Specialty Diagnoses / Procedures Referred By Contac t Referred To Contact Ophthalmology Diagnoses Screening for diabetic retinopathy Procedures CONSULT TO OPHTHALMOLOGY OFFICE/OUTPATIENT [facility] 60 MINUTES Jenae Santamaria MD [address] [place] [address] Referral ID Status Reason Start Date Expiration Date Visits Requested Visits Authorized [id number] Authorized PCP Requested Referral 04/07/2023 04/06/2024 1 1 Specialty Diagnoses / Procedures Referred By Contac t Referred To Contact Occupational Therapy Diagnoses Cerebrovascular accident (CVA), unspecified mechanism (HCC) Procedures CONSULT TO RN RESOURCE NURSE Jenae Santamaria MD [address] [place] [address] Referral ID Status Reason Start Date Expiration Date Visits Requested Visits Authorized [id number] Ref Not Required PCP Requested Referral 04/07/2023 04/06/2024 99 99 Specialty Diagnoses / Procedures Referred By Contac t Referred To Contact [facility] Diagnoses Cerebrovascular accident (CVA), unspecified mechanism (HCC) Procedures CONSULT TO PHYSICAL THERAPY PHYSICAL THERAPY EVALUATION HIGH COMPLEX 45 MINS Jenae Santamaria MD [address] [place] [address] [facility] [place] [address] [place] [address] Referral ID Status Reason Start Date Expiration Date Visits Requested Visits Authorized [id number] Authorized PCP Requested Referral Auto-Generate d Referral 04/07/2023 04/06/2024 99 99 Specialty Diagnoses / Procedures Referred By Contac t Referred To Contact Vascular Surgery Diagnoses Abdominal aortic aneurysm (AAA) without rupture, unspecified part (HCC) Procedures CONSULT TO VASCULAR SURGERY OFFICE/OUTPATIENT [facility] MDM 60 [place] [address] [place] [address] Referral ID Status Reason Start Date Expiration Date Visits Requested Visits Authorized [id number] Authorized PCP Requested Referral 07/08/2023 07/07/2024 1 1 Specialty Diagnoses / Procedures Referred By Contac t Referred To Contact Diagnoses Chronic obstructive pulmonary disease, unspecified COPD type (HCC) JANELL (obstructive sleep apnea) Procedures CONSULT [place] [address] [place] [id number] Referral ID Status Reason Start Date Expiration Date Visits Requested Visits Authorized [id number] Authorized PCP Requested Referral 04/07/2024 07/06/2024 1 1 Specialty Diagnoses / Procedures Referred By Contac t Referred To Contact Vascular Surgery Diagnoses Abdominal aortic aneurysm (AAA) without rupture, unspecified part (HCC) H/O aorto-femoral bypass PAD (peripheral artery disease) (HCC) Procedures CONSULT TO VASCULAR SURGERY OFFICE/OUTPATIENT [facility] HIGH MDM 60 MINUTES Jenae Santamaria MD [address] [place] [address] Referral ID Status Reason Start Date Expiration Date Visits Requested Visits Authorized [id number] Authorized PCP Requested Referral 04/07/2024 04/07/2025 1 1 Specialty Diagnoses / Procedures Referred By Contac t Referred To Contact Diagnoses Type 2 diabetes mellitus with other circulatory complication, with long-term current use of insulin (HCC) Procedures CONSULT TO DIABETES EDUCATION DSME MEDICAL NUTRITION ASSMT&IVNTJ INDIV EACH 15 TN MEDICAL NUTRITION ASSMT&IVNTJ INDIV EACH 15 TN MEDICAL NUTRITION ASSMT&IVNTJ INDIV EACH 15 TN MEDICAL NUTRITION ASSMT&IVNTJ INDIV EACH 15 TN Jenae Santamaria MD [address] [place] [address] Referral ID Status Reason Start Date Expiration Date Visits Requested Visits Authorized [id number] Authorized PCP Requested Referral 04/17/2024 04/17/2025 1 1 Additional Source Comments Goals (unrecognized section and content) Goals may be documented in a n alternate sectionGoals may be documented in an alternate sectionGoals may be documented in an alternate sectionGoals may be documented in an alternate section (unrecognized sect ion and content) No Status Records FoundNo Status Records FoundNo Status Records FoundNo Status Records FoundNo Status Records Found INFORMATION SOURCE (unrecogn ized section and content) DATE CREATED AUTHOR 04/27/2021 [facility] DATE CREATED AUTHOR AUTHOR'S ORGANIZ ATION 11/03/2024 [facility] DATE CREATED AUTHOR AUTHOR'S ORGANIZ ATION 01/10/2025 [facility] DATE CREATED AUTHOR AUTHOR'S ORGANIZ ATION 01/15/2025 [facility] DATE CREATED AUTHOR AUTHOR'S FREDY ATEMILY 01/23/2025 [facility] Source Comments (unrecognize d section and content) In the event this informatio n is protected by the Federal Confidentiality of Alcohol and Drug Abuse Patient Records regulations: The Federal rules restrict any use of the information to criminally investigate or prosecute any alcohol or drug abuse patient.[facility] the event this information is protected by the Federal Confidentiality of Alcohol and Drug Abuse Patient Records regulations: The Federal rules restrict any use of the information to criminally investigate or prosecute any alcohol or drug abuse patient.[facility] Center[facility] the event this information is protected by the Federal Confidentiality of Alcohol and Drug Abuse Patient Records regulations: The Federal rules restrict any use of the information to criminally investigate or prosecute any alcohol or drug abuse patient.[facility] the event this information is protected by the Federal Confidentiality of Alcohol and Drug Abuse Patient Records regulations: The Federal rules restrict any use of the information to criminally investigate or prosecute any alcohol or drug abuse patient.[facility] the event this information is protected by the Federal Confidentiality of Alcohol and Drug Abuse Patient Records regulations: The Federal rules restrict any use of the information to criminally investigate or prosecute any alcohol or drug abuse patient.[facility] Center[facility] the event this information is protected by the Federal Confidentiality of Alcohol and Drug Abuse Patient Records regulations: The Federal rules restrict any use of the information to criminally investigate or prosecute any alcohol or drug abuse patient.[facility]In the event this information is protected by the Federal Confidentiality of Alcohol and Drug Abuse Patient Records regulations: The Federal rules restrict any use of the information to criminally investigate or prosecute any alcohol or drug abuse patient.[facility] CenterIn the event this information is protected by the Federal Confidentiality of Alcohol and Drug Abuse Patient Records regulations: The Federal rules restrict any use of the information to criminally investigate or prosecute any alcohol or drug abuse patient.[facility]In the event this information is protected by the Federal Confidentiality of Alcohol and Drug Abuse Patient Records regulations: The Federal rules restrict any use of the information to criminally investigate or prosecute any alcohol or drug abuse patient.[facility]In the event this information is protected by the Federal Confidentiality of Alcohol and Drug Abuse Patient Records regulations: The Federal rules restrict any use of the information to criminally investigate or prosecute any alcohol or drug abuse patient.[facility]In the event this information is protected by the Federal Confidentiality of Alcohol and Drug Abuse Patient Records regulations: The Federal rules restrict any use of the information to criminally investigate or prosecute any alcohol or drug abuse patient.[facility] CenterIn the event this information is protected by the Federal Confidentiality of Alcohol and Drug Abuse Patient Records regulations: The Federal rules restrict any use of the information to criminally investigate or prosecute any alcohol or drug abuse patient.[facility]In the event this information is protected by the Federal Confidentiality of Alcohol and Drug Abuse Patient Records regulations: The Federal rules restrict any use of the information to criminally investigate or prosecute any alcohol or drug abuse patient.[facility]In the event this information is protected by the Federal Confidentiality of Alcohol and Drug Abuse Patient Records regulations: The Federal rules restrict any use of the information to criminally investigate or prosecute any alcohol or drug abuse patient.[facility]In the event this information is protected by the Federal Confidentiality of Alcohol and Drug Abuse Patient Records regulations: The Federal rules restrict any use of the information to criminally investigate or prosecute any alcohol or drug abuse patient.[facility]In the event this information is protected by the Federal Confidentiality of Alcohol and Drug Abuse Patient Records regulations: The Federal rules restrict any use of the information to criminally investigate or prosecute any alcohol or drug abuse patient.[facility]In the event this information is protected by the Federal Confidentiality of Alcohol and Drug Abuse Patient Records regulations: The Federal rules restrict any use of the information to criminally investigate or prosecute any alcohol or drug abuse patient.[facility]In the event this information is protected by the Federal Confidentiality of Alcohol and Drug Abuse Patient Records regulations: The Federal rules restrict any use of the information to criminally investigate or prosecute any alcohol or drug abuse patient.[facility]In the event this information is protected by the Federal Confidentiality of Alcohol and Drug Abuse Patient Records regulations: The Federal rules restrict any use of the information to criminally investigate or prosecute any alcohol or drug abuse patient.[facility]In the event this information is protected by the Federal Confidentiality of Alcohol and Drug Abuse Patient Records regulations: The Federal rules restrict any use of the information to criminally investigate or prosecute any alcohol or drug abuse patient.[facility]In the event this information is protected by the Federal Confidentiality of Alcohol and Drug Abuse Patient Records regulations: The Federal rules restrict any use of the information to criminally investigate or prosecute any alcohol or drug abuse patient.[facility]In the event this information is protected by the Federal Confidentiality of Alcohol and Drug Abuse Patient Records regulations: The Federal rules restrict any use of the information to criminally investigate or prosecute any alcohol or drug abuse patient.[facility]In the event this information is protected by the Federal Confidentiality of Alcohol and Drug Abuse Patient Records regulations: The Federal rules restrict any use of the information to criminally investigate or prosecute any alcohol or drug abuse patient.[facility]In the event this information is protected by the Federal Confidentiality of Alcohol and Drug Abuse Patient Records regulations: The Federal rules restrict any use of the information to criminally investigate or prosecute any alcohol or drug abuse patient.[facility]In the event this information is protected by the Federal Confidentiality of Alcohol and Drug Abuse Patient Records regulations: The Federal rules restrict any use of the information to criminally investigate or prosecute any alcohol or drug abuse patient.[facility]In the event this information is protected by the Federal Confidentiality of Alcohol and Drug Abuse Patient Records regulations: The Federal rules restrict any use of the information to criminally investigate or prosecute any alcohol or drug abuse patient.[facility]In the event this information is protected by the Federal Confidentiality of Alcohol and Drug Abuse Patient Records regulations: The Federal rules restrict any use of the information to criminally investigate or prosecute any alcohol or drug abuse patient.[facility]In the event this information is protected by the Federal Confidentiality of Alcohol and Drug Abuse Patient Records regulations: The Federal rules restrict any use of the information to criminally investigate or prosecute any alcohol or drug abuse patient.[facility]In the event this information is protected by the Federal Confidentiality of Alcohol and Drug Abuse Patient Records regulations: The Federal rules restrict any use of the information to criminally investigate or prosecute any alcohol or drug abuse patient.[facility]In the event this information is protected by the Federal Confidentiality of Alcohol and Drug Abuse Patient Records regulations: The Federal rules restrict any use of the information to criminally investigate or prosecute any alcohol or drug abuse patient.[facility]In the event this information is protected by the Federal Confidentiality of Alcohol and Drug Abuse Patient Records regulations: The Federal rules restrict any use of the information to criminally investigate or prosecute any alcohol or drug abuse patient.[facility]In the event this information is protected by the Federal Confidentiality of Alcohol and Drug Abuse Patient Records regulations: The Federal rules restrict any use of the information to criminally investigate or prosecute any alcohol or drug abuse patient.[facility]In the event this information is protected by the Federal Confidentiality of Alcohol and Drug Abuse Patient Records regulations: The Federal rules restrict any use of the information to criminally investigate or prosecute any alcohol or drug abuse patient.[facility]In the event this information is protected by the Federal Confidentiality of Alcohol and Drug Abuse Patient Records regulations: The Federal rules restrict any use of the information to criminally investigate or prosecute any alcohol or drug abuse patient.[facility]In the event this information is protected by the Federal Confidentiality of Alcohol and Drug Abuse Patient Records regulations: The Federal rules restrict any use of the information to criminally investigate or prosecute any alcohol or drug abuse patient.[facility]In the event this information is protected by the Federal Confidentiality of Alcohol and Drug Abuse Patient Records regulations: The Federal rules restrict any use of the information to criminally investigate or prosecute any alcohol or drug abuse patient.[facility]In the event this information is protected by the Federal Confidentiality of Alcohol and Drug Abuse Patient Records regulations: The Federal rules restrict any use of the information to criminally investigate or prosecute any alcohol or drug abuse patient.[facility]In the event this information is protected by the Federal Confidentiality of Alcohol and Drug Abuse Patient Records regulations: The Federal rules restrict any use of the information to criminally investigate or prosecute any alcohol or drug abuse patient.[facility]In the event this information is protected by the Federal Confidentiality of Alcohol and Drug Abuse Patient Records regulations: The Federal rules restrict any use of the information to criminally investigate or prosecute any alcohol or drug abuse patient.[facility]In the event this information is protected by the Federal Confidentiality of Alcohol and Drug Abuse Patient Records regulations: The Federal rules restrict any use of the information to criminally investigate or prosecute any alcohol or drug abuse patient.[facility]In the event this information is protected by the Federal Confidentiality of Alcohol and Drug Abuse Patient Records regulations: The Federal rules restrict any use of the information to criminally investigate or prosecute any alcohol or drug abuse patient.[facility]In the event this information is protected by the Federal Confidentiality of Alcohol and Drug Abuse Patient Records regulations: The Federal rules restrict any use of the information to criminally investigate or prosecute any alcohol or drug abuse patient.[facility]In the event this information is protected by the Federal Confidentiality of Alcohol and Drug Abuse Patient Records regulations: The Federal rules restrict any use of the information to criminally investigate or prosecute any alcohol or drug abuse patient.[facility]In the event this information is protected by the Federal Confidentiality of Alcohol and Drug Abuse Patient Records regulations: The Federal rules restrict any use of the information to criminally investigate or prosecute any alcohol or drug abuse patient.[facility]In the event this information is protected by the Federal Confidentiality of Alcohol and Drug Abuse Patient Records regulations: The Federal rules restrict any use of the information to criminally investigate or prosecute any alcohol or drug abuse patient.[facility]In the event this information is protected by the Federal Confidentiality of Alcohol and Drug Abuse Patient Records regulations: The Federal rules restrict any use of the information to criminally investigate or prosecute any alcohol or drug abuse patient.[facility]In the event this information is protected by the Federal Confidentiality of Alcohol and Drug Abuse Patient Records regulations: The Federal rules restrict any use of the information to criminally investigate or prosecute any alcohol or drug abuse patient.[facility]In the event this information is protected by the Federal Confidentiality of Alcohol and Drug Abuse Patient Records regulations: The Federal rules restrict any use of the information to criminally investigate or prosecute any alcohol or drug abuse patient.[facility]In the event this information is protected by the Federal Confidentiality of Alcohol and Drug Abuse Patient Records regulations: The Federal rules restrict any use of the information to criminally investigate or prosecute any alcohol or drug abuse patient.[facility]In the event this information is protected by the Federal Confidentiality of Alcohol and Drug Abuse Patient Records regulations: The Federal rules restrict any use of the information to criminally investigate or prosecute any alcohol or drug abuse patient.[facility]In the event this information is protected by the Federal Confidentiality of Alcohol and Drug Abuse Patient Records regulations: The Federal rules restrict any use of the information to criminally investigate or prosecute any alcohol or drug abuse patient.[facility]In the event this information is protected by the Federal Confidentiality of Alcohol and Drug Abuse Patient Records regulations: The Federal rules restrict any use of the information to criminally investigate or prosecute any alcohol or drug abuse patient.[facility]In the event this information is protected by the Federal Confidentiality of Alcohol and Drug Abuse Patient Records regulations: The Federal rules restrict any use of the information to criminally investigate or prosecute any alcohol or drug abuse patient.[facility]In the event this information is protected by the Federal Confidentiality of Alcohol and Drug Abuse Patient Records regulations: The Federal rules restrict any use of the information to criminally investigate or prosecute any alcohol or drug abuse patient.[facility]In the event this information is protected by the Federal Confidentiality of Alcohol and Drug Abuse Patient Records regulations: The Federal rules restrict any use of the information to criminally investigate or prosecute any alcohol or drug abuse patient.[facility]In the event this information is protected by the Federal Confidentiality of Alcohol and Drug Abuse Patient Records regulations: The Federal rules restrict any use of the information to criminally investigate or prosecute any alcohol or drug abuse patient.[facility]In the event this information is protected by the Federal Confidentiality of Alcohol and Drug Abuse Patient Records regulations: The Federal rules restrict any use of the information to criminally investigate or prosecute any alcohol or drug abuse patient.[facility]In the event this information is protected by the Federal Confidentiality of Alcohol and Drug Abuse Patient Records regulations: The Federal rules restrict any use of the information to criminally investigate or prosecute any alcohol or drug abuse patient.[facility]In the event this information is protected by the Federal Confidentiality of Alcohol and Drug Abuse Patient Records regulations: The Federal rules restrict any use of the information to criminally investigate or prosecute any alcohol or drug abuse patient.[facility]In the event this information is protected by the Federal Confidentiality of Alcohol and Drug Abuse Patient Records regulations: The Federal rules restrict any use of the information to criminally investigate or prosecute any alcohol or drug abuse patient.[facility]In the event this information is protected by the Federal Confidentiality of Alcohol and Drug Abuse Patient Records regulations: The Federal rules restrict any use of the information to criminally investigate or prosecute any alcohol or drug abuse patient.[facility]In the event this information is protected by the Federal Confidentiality of Alcohol and Drug Abuse Patient Records regulations: The Federal rules restrict any use of the information to criminally investigate or prosecute any alcohol or drug abuse patient.[facility]In the event this information is protected by the Federal Confidentiality of Alcohol and Drug Abuse Patient Records regulations: The Federal rules restrict any use of the information to criminally investigate or prosecute any alcohol or drug abuse patient.[facility]In the event this information is protected by the Federal Confidentiality of Alcohol and Drug Abuse Patient Records regulations: The Federal rules restrict any use of the information to criminally investigate or prosecute any alcohol or drug abuse patient.[facility]In the event this information is protected by the Federal Confidentiality of Alcohol and Drug Abuse Patient Records regulations: The Federal rules restrict any use of the information to criminally investigate or prosecute any alcohol or drug abuse patient.[facility]In the event this information is protected by the Federal Confidentiality of Alcohol and Drug Abuse Patient Records regulations: The Federal rules restrict any use of the information to criminally investigate or prosecute any alcohol or drug abuse patient.[facility]In the event this information is protected by the Federal Confidentiality of Alcohol and Drug Abuse Patient Records regulations: The Federal rules restrict any use of the information to criminally investigate or prosecute any alcohol or drug abuse patient.[facility]In the event this information is protected by the Federal Confidentiality of Alcohol and Drug Abuse Patient Records regulations: The Federal rules restrict any use of the information to criminally investigate or prosecute any alcohol or drug abuse patient.[facility]In the event this information is protected by the Federal Confidentiality of Alcohol and Drug Abuse Patient Records regulations: The Federal rules restrict any use of the information to criminally investigate or prosecute any alcohol or drug abuse patient.[facility]In the event this information is protected by the Federal Confidentiality of Alcohol and Drug Abuse Patient Records regulations: The Federal rules restrict any use of the information to criminally investigate or prosecute any alcohol or drug abuse patient.[facility]In the event this information is protected by the Federal Confidentiality of Alcohol and Drug Abuse Patient Records regulations: The Federal rules restrict any use of the information to criminally investigate or prosecute any alcohol or drug abuse patient.[facility]In the event this information is protected by the Federal Confidentiality of Alcohol and Drug Abuse Patient Records regulations: The Federal rules restrict any use of the information to criminally investigate or prosecute any alcohol or drug abuse patient.[facility]In the event this information is protected by the Federal Confidentiality of Alcohol and Drug Abuse Patient Records regulations: The Federal rules restrict any use of the information to criminally investigate or prosecute any alcohol or drug abuse patient.[facility]In the event this information is protected by the Federal Confidentiality of Alcohol and Drug Abuse Patient Records regulations: The Federal rules restrict any use of the information to criminally investigate or prosecute any alcohol or drug abuse patient.[facility]In the event this information is protected by the Federal Confidentiality of Alcohol and Drug Abuse Patient Records regulations: The Federal rules restrict any use of the information to criminally investigate or prosecute any alcohol or drug abuse patient.[facility]In the event this information is protected by the Federal Confidentiality of Alcohol and Drug Abuse Patient Records regulations: The Federal rules restrict any use of the information to criminally investigate or prosecute any alcohol or drug abuse patient.[facility]In the event this information is protected by the Federal Confidentiality of Alcohol and Drug Abuse Patient Records regulations: The Federal rules restrict any use of the information to criminally investigate or prosecute any alcohol or drug abuse patient.[facility]In the event this information is protected by the Federal Confidentiality of Alcohol and Drug Abuse Patient Records regulations: The Federal rules restrict any use of the information to criminally investigate or prosecute any alcohol or drug abuse patient.[facility]In the event this information is protected by the Federal Confidentiality of Alcohol and Drug Abuse Patient Records regulations: The Federal rules restrict any use of the information to criminally investigate or prosecute any alcohol or drug abuse patient.[facility]In the event this information is protected by the Federal Confidentiality of Alcohol and Drug Abuse Patient Records regulations: The Federal rules restrict any use of the information to criminally investigate or prosecute any alcohol or drug abuse patient.[facility]In the event this information is protected by the Federal Confidentiality of Alcohol and Drug Abuse Patient Records regulations: The Federal rules restrict any use of the information to criminally investigate or prosecute any alcohol or drug abuse patient.[facility]In the event this information is protected by the Federal Confidentiality of Alcohol and Drug Abuse Patient Records regulations: The Federal rules restrict any use of the information to criminally investigate or prosecute any alcohol or drug abuse patient.[facility]In the event this information is protected by the Federal Confidentiality of Alcohol and Drug Abuse Patient Records regulations: The Federal rules restrict any use of the information to criminally investigate or prosecute any alcohol or drug abuse patient.[facility]In the event this information is protected by the Federal Confidentiality of Alcohol and Drug Abuse Patient Records regulations: The Federal rules restrict any use of the information to criminally investigate or prosecute any alcohol or drug abuse patient.[facility]In the event this information is protected by the Federal Confidentiality of Alcohol and Drug Abuse Patient Records regulations: The Federal rules restrict any use of the information to criminally investigate or prosecute any alcohol or drug abuse patient.[facility]In the event this information is protected by the Federal Confidentiality of Alcohol and Drug Abuse Patient Records regulations: The Federal rules restrict any use of the information to criminally investigate or prosecute any alcohol or drug abuse patient.[facility]In the event this information is protected by the Federal Confidentiality of Alcohol and Drug Abuse Patient Records regulations: The Federal rules restrict any use of the information to criminally investigate or prosecute any alcohol or drug abuse patient.[facility]In the event this information is protected by the Federal Confidentiality of Alcohol and Drug Abuse Patient Records regulations: The Federal rules restrict any use of the information to criminally investigate or prosecute any alcohol or drug abuse patient.[facility]In the event this information is protected by the Federal Confidentiality of Alcohol and Drug Abuse Patient Records regulations: The Federal rules restrict any use of the information to criminally investigate or prosecute any alcohol or drug abuse patient.[facility]In the event this information is protected by the Federal Confidentiality of Alcohol and Drug Abuse Patient Records regulations: The Federal rules restrict any use of the information to criminally investigate or prosecute any alcohol or drug abuse patient.[facility]In the event this information is protected by the Federal Confidentiality of Alcohol and Drug Abuse Patient Records regulations: The Federal rules restrict any use of the information to criminally investigate or prosecute any alcohol or drug abuse patient.[facility]In the event this information is protected by the Federal Confidentiality of Alcohol and Drug Abuse Patient Records regulations: The Federal rules restrict any use of the information to criminally investigate or prosecute any alcohol or drug abuse patient.[facility]In the event this information is protected by the Federal Confidentiality of Alcohol and Drug Abuse Patient Records regulations: The Federal rules restrict any use of the information to criminally investigate or prosecute any alcohol or drug abuse patient.[facility]In the event this information is protected by the Federal Confidentiality of Alcohol and Drug Abuse Patient Records regulations: The Federal rules restrict any use of the information to criminally investigate or prosecute any alcohol or drug abuse patient.[facility] Center[facility] the event this information is protected by the Federal Confidentiality of Alcohol and Drug Abuse Patient Records regulations: The Federal rules restrict any use of the information to criminally investigate or prosecute any alcohol or drug abuse patient.[facility] Center[facility] the event this information is protected by the Federal Confidentiality of Alcohol and Drug Abuse Patient Records regulations: The Federal rules restrict any use of the information to criminally investigate or prosecute any alcohol or drug abuse patient.[facility] Center[facility] the event this information is protected by the Federal Confidentiality of Alcohol and Drug Abuse Patient Records regulations: The Federal rules restrict any use of the information to criminally investigate or prosecute any alcohol or drug abuse patient.[facility] Center[facility] the event this information is protected by the Federal Confidentiality of Alcohol and Drug Abuse Patient Records regulations: The Federal rules restrict any use of the information to criminally investigate or prosecute any alcohol or drug abuse patient.[facility] Center[facility] the event this information is protected by the Federal Confidentiality of Alcohol and Drug Abuse Patient Records regulations: The Federal rules restrict any use of the information to criminally investigate or prosecute any alcohol or drug abuse patient.[facility] Reason for Visit (unrecogniz ed section and content) Reason Comments Urinary Retention Reason Comments New Patient Reason Comments Patient Question Reason Comments Home Care Declined Reason Comments New Patient Reason Comments Diabetic Eye Exam Specialty Diagnoses / Procedures Referred By Contac t Referred To Contact Ophthalmology Diagnoses Screening for diabetic retinopathy Procedures CONSULT TO OPHTHALMOLOGY OFFICE/OUTPATIENT NEW HIGH MDM 60 MINUTES Jenae Santamaria MD [address] [phone] Referral ID Status Reason Start Date Expiration Date V isits Requested Visits Authorized [id number] Closed PCP Requested Referral 04/07/2023 04/06/2024 1 1 Reason Comments Consult History of colon can cer Reason Comments Orders Reason Comments Consult New Patient - referr al from Dr. Santamaria for hx of rectal cancer Reason Comments Patient Update CAITLYN Reason Comments Results Reason Comments Patient Question Reason Comments New Diabetic Foot Check Reason Comments Appointment Reason Comments Referral Information Vascular Surgery Reason Comments Consult [facility]-Patient declined due to location Reason Comments Patient Update Reason Comments F/U 3 Month Reason Comments Med Change Request Reason Comments Procedure US DVT LOWER LEFT - STAT Reason Comments Established Patient Reason Comments Orders Plan of Care Reason Comments Established Patient Diabetic Foot Care Reason Comments Established Patient Reason Onset Date Comments Transition Of Care 02/07/2024 Discharged fr [facility] Reason Onset Date Comments Transition Of Care 02/07/2024 SNF D/C Reason Onset Date Comments Transition Of Care 02/15/2024 TCM f/u Reason Onset Date Comments Transition Of Care 03/01/2024 TCM f/u Reason Onset Date Comments Transition Of Care 03/06/2024 TCM f/u Reason Comments Consult Consult to Vascular Surgery Reason Comments 4 month follow up Reason Comments Consult [facility] - Needs testing prior Reason Comments Refill Request Reason Onset Date Comments Transition Of Care 07/10/2024 [facility] Reason Onset Date Comments Transition Of Care 08/07/2024 Discharged [facility] to home with [facility] Reason Comments Missed Appointment 08/08/2024 at 10:40 am, hospital follow-up, FIRST NO-SHOW Reason Comments Transition Of Care D/C FROM [facility] on 08/05/24. Admitted for: acidosis Reason Comments Nail care Nail care Diabetic foot exam Reason Comments Established Patient ov f/u seen Dr Cummings 20 24 ref back from Jenae Santamaria for hx of rectal ca Specialty Diagnoses / Procedures Referred By Shelley t Referred To Contact Oncology Diagnoses History of rectal cancer Procedures CONSULT TO ONCOLOGY OFFICE/OUTPATIENT NEW HIGH MDM 60 MINUTES Jenae Santamaria MD [address] [place] [address] Phone: tel: fax: Referral ID Status Reason Start Date Expiration Date V isits Requested Visits Authorized [id number] Closed PCP Requested Referral 08/22/2024 08/22/2025 1 1 Reason Comments No Show Reason Onset Date Comments Transition Of Care 10/31/2024 [facility] Reason Comments Established Patient Follow Up Diabetic Foot Care Reason Onset Date Comments Transition Of Care 12/13/2024 SNF update Care Teams (unrecognized sec tion and content) Team Status: Active Member Role Status Dates Dr. Shari Hurd MD Primary Care Provider Active Team Status: Inactive Member Role Status Dates Jenae Santamaria MD Primary Care Provider Active Star t: July 01, 2024 End: July 07, 2024 Dr. Toni King DO Emergency Provider Active S tart: July 01, 2024 End: July 07, 2024 Dr. Kulwinder De La O DO Admit Provider Active Start: July 01, 2024 End: July 07, 2024 Dr. Kulwinder De La O DO Other Provider Active Start: July 01, 2024 End: July 07, 2024 Dr. Efraín Thompson MD Other Provider Active Start : July 01, 2024 End: July 07, 2024 Dr. Ginger Espitia DO Attending Provider Active S tart: July 01, 2024 End: July 07, 2024 Team Status: Active Member Role Status Dates Jenae Santamaria MD Primary Care Provider Active Star t: July 01, 2024 Dr. Efraín Thompson MD Attending Provider Active S tart: July 01, 2024 Dr. Kulwinder De La O DO Referring Provider Active Start: July 01, 2024 Team Status: Active Member Role Status Dates Jenae Santamaria MD Primary Care Provider Active Star t: July 02, 2024 Dr. Toni King DO Emergency Provider Active S tart: July 02, 2024 Dr. Kulwinder De La O DO Admit Provider Active Start: July 02, 2024 Dr. Kulwinder De La O DO Attending Provider Active Start: July 02, 2024 Dr. Kulwinder De La O DO Other Provider Active Start: July 02, 2024 Team Status: Active Member Role Status Dates Jenae Santamaria MD Primary Care Provider Active Star t: July 03, 2024 Dr. Toni King DO Emergency Provider Active S tart: July 03, 2024 Dr. Kulwinder De La O DO Admit Provider Active Start: July 03, 2024 Dr. Kulwinder Mosteller , DO Attending Provider Active Start: July 03, 2024 Dr. Kulwinder De La O , DO Other Provider Active Start: July 03, 2024 Team Status: Active Member Role Status Dates Jenae Santamaria MD Primary Care Provider Active Star t: July 03, 2024 Dr. Toni King , DO Emergency Provider Active S tart: July 03, 2024 Dr. Kulwinder De La O , DO Admit Provider Active Start: July 03, 2024 Dr. Kulwinder De La O , DO Referring Provider Active Start: July 03, 2024 Dr. Kulwinder De La O , DO Other Provider Active Start: July 03, 2024 Dr. Efraín Thompson MD Other Provider Active Start : July 03, 2024 Dr. David Ramos , DO Attending Provider Active Start: July 03, 2024 Team Status: Active Member Role Status Dates Jenae Santamaria MD Primary Care Provider Active Star t: July 04, 2024 End: July 04, 2024 Dr. Oni Lundberg MD Attending Provider Active S tart: July 04, 2024 End: July 04, 2024 Dr. Oni Lundberg MD Referring Provider Active S tart: July 04, 2024 End: July 04, 2024 Team Status: Active Member Role Status Dates Jenae Santamaria MD Primary Care Provider Active Star t: July 04, 2024 Dr. Toni King , DO Emergency Provider Active S tart: July 04, 2024 Dr. Kulwinder De La O , DO Admit Provider Active Start: July 04, 2024 Dr. Kulwinder De La O , DO Other Provider Active Start: July 04, 2024 Dr. Efraín Thompson MD Other Provider Active Start : July 04, 2024 Dr. Ginger Espitia , DO Referring Provider Active S tart: July 04, 2024 Dr. Ginger Espitia , DO Other Provider Active Start : July 04, 2024 MICHAEL Frost Attending Provider Active Star t: July 04, 2024 Team Status: Active Member Role Status Dates Jenae Santamaria MD Primary Care Provider Active Star t: July 04, 2024 Dr. Toni King , DO Emergency Provider Active S tart: July 04, 2024 Dr. Kulwinder De La O , DO Admit Provider Active Start: July 04, 2024 Dr. Kulwinder De La O , DO Referring Provider Active Start: July 04, 2024 Dr. Kulwinder De La O , DO Other Provider Active Start: July 04, 2024 Dr. Efraín Thompson MD Other Provider Active Start : July 04, 2024 Dr. Ginger Espitia , DO Other Provider Active Start : July 04, 2024 Dr. David Ramos , DO Attending Provider Active Start: July 04, 2024 Team Status: Active Member Role Status Dates Jenae Santamaria MD Primary Care Provider Active Star t: July 04, 2024 Dr. Toni King , DO Emergency Provider Active S tart: July 04, 2024 Dr. Kulwinder De La O , DO Admit Provider Active Start: July 04, 2024 Dr. Kulwinder De La O , DO Other Provider Active Start: July 04, 2024 Dr. Efraín Thompson MD Other Provider Active Start : July 04, 2024 Dr. Ginger Espitia , DO Attending Provider Active S tart: July 04, 2024 Dr. Ginger Espitia , DO Other Provider Active Start : July 04, 2024 Team Status: Active Member Role Status Dates Jenae Santamaria MD Primary Care Provider Active Star t: July 05, 2024 Dr. Toni King , DO Emergency Provider Active S tart: July 05, 2024 Dr. Kulwinder De La O , DO Admit Provider Active Start: July 05, 2024 Dr. Kulwinder De La O , DO Other Provider Active Start: July 05, 2024 Dr. Efraín Thompson MD Other Provider Active Start : July 05, 2024 Dr. Ginger Espitia , DO Attending Provider Active S tart: July 05, 2024 Dr. Ginger Espitia , DO Other Provider Active Start : July 05, 2024 Team Status: Active Member Role Status Dates Jenae Santamaria MD Primary Care Provider Active Star t: July 05, 2024 Dr. Toni King , DO Emergency Provider Active S tart: July 05, 2024 Dr. Kulwinder De La O , DO Admit Provider Active Start: July 05, 2024 Dr. Kulwinder De La O , DO Other Provider Active Start: July 05, 2024 Dr. Efraín Thompson MD Other Provider Active Start : July 05, 2024 Dr. Ginger Espitia , DO Referring Provider Active S tart: July 05, 2024 Dr. Ginger Espitia , DO Other Provider Active Start : July 05, 2024 MICHAEL Frost Attending Provider Active Star t: July 05, 2024 Team Status: Active Member Role Status Dates Jenae Santamaria MD Primary Care Provider Active Star t: July 05, 2024 Dr. Toni King , DO Emergency Provider Active S tart: July 05, 2024 Dr. Kulwinder De La O , DO Admit Provider Active Start: July 05, 2024 Dr. Kulwinder De La O , DO Other Provider Active Start: July 05, 2024 Dr. Efraín Thompson MD Other Provider Active Start : July 05, 2024 Dr. Ginger Espitia , DO Referring Provider Active S tart: July 05, 2024 Dr. Ginger Espitia , DO Other Provider Active Start : July 05, 2024 Dr. David Ramos , DO Attending Provider Active Start: July 05, 2024 Team Status: Active Member Role Status Dates Jenae Santamaria MD Primary Care Provider Active Star t: July 06, 2024 Dr. Toni King , DO Emergency Provider Active S tart: July 06, 2024 Dr. Kulwinder De La O , DO Admit Provider Active Start: July 06, 2024 Dr. Kulwinder De La O , DO Other Provider Active Start: July 06, 2024 Dr. Efraín Thompson MD Other Provider Active Start : July 06, 2024 Dr. Ginger Espitia , DO Attending Provider Active S tart: July 06, 2024 Dr. Ginger Espitia , DO Other Provider Active Start : July 06, 2024 Team Status: Active Member Role Status Dates Jenae Santamaria MD Primary Care Provider Active Star t: July 06, 2024 Dr. Toni King , DO Emergency Provider Active S tart: July 06, 2024 Dr. Kulwinder De La O , DO Admit Provider Active Start: July 06, 2024 Dr. Kulwinder De La O , DO Other Provider Active Start: July 06, 2024 Dr. Efraín Thompson MD Attending Provider Active S tart: July 06, 2024 Dr. Efraín Thompson MD Other Provider Active Start : July 06, 2024 Dr. Ginger Espitia , DO Other Provider Active Start : July 06, 2024 Team Status: Active Member Role Status Dates Jenae Santamaria MD Primary Care Provider Active Star t: July 07, 2024 Dr. Toni King , DO Emergency Provider Active S tart: July 07, 2024 Dr. Kulwinder De La O , DO Admit Provider Active Start: July 07, 2024 Dr. Kulwinder De La O , DO Other Provider Active Start: July 07, 2024 Dr. Efraní Thompson MD Other Provider Active Start : July 07, 2024 Dr. Ginger Espitia , DO Referring Provider Active S tart: July 07, 2024 Dr. Ginger Espitia , DO Other Provider Active Start : July 07, 2024 MICHAEL Frost Attending Provider Active Star t: July 07, 2024 Team Status: Active Member Role Status Jesse Santamaria MD Primary Care Provider Active Star t: July 07, 2024 Dr. Toni King , DO Emergency Provider Active S tart: July 07, 2024 Dr. Kulwinder De La O , DO Admit Provider Active Start: July 07, 2024 Dr. Kulwinder De La O , Other Provider Active Start: July 07, 2024 Dr. Efraín Thompson MD Other Provider Active Start : July 07, 2024 Dr. Ginger Espitia , DO Attending Provider Active S tart: July 07, 2024 Dr. Ginger Espitia , DO Other Provider Active Start : July 07, 2024 Team Status: Active Member Role Status Jesse Santamaria MD Primary Care Provider Active Star t: July 10, 2024 Dr. Shari SLATER MD Attending Provider Active Start: July 10, 2024 Team Status: Active Member Role Status Jesse Michele MD Emergency Provider Active Star t: July 13, 2024 Dr. Shari Hurd MD Primary Care Provider Active Start: July 13, 2024 Dr. Kulwinder De La O , Admit Provider Active Start: July 13, 2024 Dr. Kulwinder De La O DO Attending Provider Active Start: July 13, 2024 Team Status: Active Member Role Status Jesse Santamaria MD Primary Care Provider Active Team Status: Active Member Role Status Jesse Santamaria MD Primary Care Provider Active Star t: July 03, 2024 Dr. Toni King , DO Emergency Provider Active S tart: July 03, 2024 Dr. Kulwinder De La O , DO Admit Provider Active Start: July 03, 2024 Dr. Kulwinder De La O , DO Other Provider Active Start: July 03, 2024 Dr. Efraín Thompson MD Other Provider Active Start : July 03, 2024 Dr. David Ramos , Attending Provider Active Start: July 03, 2024 Team Status: Active Member Role Status Dates Jenae Santamaria MD Primary Care Provider Active Star t: July 04, 2024 Dr. Toni King , DO Emergency Provider Active S tart: July 04, 2024 Dr. Kulwinder De La O , DO Admit Provider Active Start: July 04, 2024 Dr. Kulwinder De La O , DO Other Provider Active Start: July 04, 2024 Dr. Efraín Thompson MD Other Provider Active Start : July 04, 2024 Dr. Ginger Espitia , DO Other Provider Active Start : July 04, 2024 MICHAEL Frost Attending Provider Active Star t: July 04, 2024 Team Status: Active Member Role Status Dates Jenae Santamaria MD Primary Care Provider Active Star t: July 04, 2024 Dr. Toni King , DO Emergency Provider Active S tart: July 04, 2024 Dr. Kulwinder De La O , DO Admit Provider Active Start: July 04, 2024 Dr. Kulwinder De La O , DO Other Provider Active Start: July 04, 2024 Dr. Efraín Thompson MD Other Provider Active Start : July 04, 2024 Dr. Ginger Espitia , DO Other Provider Active Start : July 04, 2024 Dr. David Ramos , DO Attending Provider Active Start: July 04, 2024 Team Status: Active Member Role Status Dates Jenae Santamaria MD Primary Care Provider Active Star t: July 05, 2024 Dr. Toni King , DO Emergency Provider Active S tart: July 05, 2024 Dr. Kulwinder De La O , DO Admit Provider Active Start: July 05, 2024 Dr. Kulwinder De La O , DO Other Provider Active Start: July 05, 2024 Dr. Efraín Thompson MD Other Provider Active Start : July 05, 2024 Dr. Ginger Espitia , DO Other Provider Active Start : July 05, 2024 MICHAEL Frost Attending Provider Active Star t: July 05, 2024 Team Status: Active Member Role Status Dates Jenae Santamaria MD Primary Care Provider Active Star t: July 05, 2024 Dr. Toni King , Emergency Provider Active S tart: July 05, 2024 Dr. Kulwinder De La O , DO Admit Provider Active Start: July 05, 2024 Dr. Kulwinder De La O , DO Other Provider Active Start: July 05, 2024 Dr. Efraín Thompson MD Other Provider Active Start : July 05, 2024 Dr. Ginger Espitia , Other Provider Active Start : July 05, 2024 Dr. David Ramos , DO Attending Provider Active Start: July 05, 2024 Survey Researcher Relationship Specialty Start Date End Date Dave Sandra MD [address] [place] [address], [place] [address] PCP - General Family Medicine 09/12/20 Cora Cardoso MD [address] [place] [address] Primary Staff Physician Vascular Medicine 09/13/20 Survey Researcher Relationship Specialty Start Date End Date Dave Sandra MD [address] [place] [address], [place] [address] PCP - General Family Medicine 09/12/20 Cora Cardoso MD [address] [place] [address] Primary Staff Physician Vascular Medicine 09/13/20 Survey Researcher Relationship Specialty Start Date End Date Dave Sandra MD [address] [place] [address], [place] [address] PCP - General Family Medicine 09/12/20 Cora Cardoso MD [address] [place] [address] Primary Staff Physician Vascular Medicine 09/13/20 Survey Researcher Relationship Specialty Start Date End Date Dave Sandra MD [address] [place] [address], [place] [address] PCP - General Family Medicine 09/12/20 Cora Cardoso MD [address] [place] [address] Primary Staff Physician Vascular Medicine 09/13/20 Survey Researcher Relationship Specialty Start Date End Date Jenae Santamaria MD [address] [place] [address] PCP - General Internal Medicine 04/07/23 Cora Cardoso MD [address] [place] [address] Primary Staff Physician Vascular Medicine 09/13/20 Survey Researcher Relationship Specialty Start Date End Date Jenae Santamaria MD [facility] [place] [address] PCP - General Internal Medicine 04/07/23 Cora Cardoso MD [address] [place] [address] Primary Staff Physician Vascular Medicine 09/13/20 Survey Researcher Relationship Specialty Start Date End Date Jenae Santamaria MD [address] [place] [address] PCP - General Internal Medicine 04/07/23 Cora Cardoso MD [address] [place] [address] Primary Staff Physician Vascular Medicine 09/13/20 Survey Researcher Relationship Specialty Start Date End Date Jenae Santamaria MD [address] [place] [address] PCP - General Internal Medicine 04/07/23 Cora Cardoso MD [address] [place] [address] Primary Staff Physician Vascular Medicine 09/13/20 Survey Researcher Relationship Specialty Start Date End Date Jenae Santamaria MD [address] [place] [address] PCP - General Internal Medicine 04/07/23 Cora Cardoso MD [address] [place] [address] Primary Staff Physician Vascular Medicine 09/13/20 Survey Researcher Relationship Specialty Start Date End Date Jenae Santamaria MD [address] [place] [address] PCP - General Internal Medicine 04/07/23 Cora Cardoso MD [address] [place] [address] Primary Staff Physician Vascular Medicine 09/13/20 Samantha Hoskins MD [address] [address] Hematology/Oncology 05/27/23 Survey Researcher Relationship Specialty Start Date End Date Jenae Santamaria MD [address] [place] [address] PCP - General Internal Medicine 04/07/23 Cora Cardoso MD [address] [place] [address] Primary Staff Physician Vascular Medicine 09/13/20 Samantha Hoskins MD [address] [address] Hematology/Oncology 05/27/23 Survey Researcher Relationship Specialty Start Date End Date Jenae Santamaria MD [address] [place] [address] PCP - General Internal Medicine 04/07/23 Cora Cardoso MD [address] [place] [address] Primary Staff Physician Vascular Medicine 09/13/20 Samantha Hoskins MD [address] [address] Hematology/Oncology 05/27/23 Survey Researcher Relationship Specialty Start Date End Date Jenae Santamaria MD [address] [place] [address] PCP - General Internal Medicine 04/07/23 Cora Cardoso MD [address] [place] [address] Primary Staff Physician Vascular Medicine 09/13/20 Samantha Hoskins MD [address] [address] Hematology/Oncology 05/27/23 Survey Researcher Relationship Specialty Start Date End Date Jenae Santamaria MD [address] [place] [address] PCP - General Internal Medicine 04/07/23 Cora Cardoso MD [address] [place] [address] Primary Staff Physician Vascular Medicine 09/13/20 Samantha Hoskins MD [address] [address] Hematology/Oncology 05/27/23 Survey Researcher Relationship Specialty Start Date End Date Jenae Santamaria MD [address] [place] [address] PCP - General Internal Medicine 04/07/23 Cora Cardoso MD [address] [place] [address] Primary Staff Physician Vascular Medicine 09/13/20 Samantha Hoskins MD [address] [address] Hematology/Oncology 05/27/23 Survey Researcher Relationship Specialty Start Date End Date Jenae Santamaria MD [address] [place] [address] PCP - General Internal Medicine 04/07/23 Cora Cardoso MD [address] [place] [address] Primary Staff Physician Vascular Medicine 09/13/20 Samantha Hoskins MD [address] [address] Hematology/Oncology 05/27/23 Survey Researcher Relationship Specialty Start Date End Date Jenae Santamaria MD [address] [place] [address] PCP - General Internal Medicine 04/07/23 Cora Cardoso MD [address] [place] [address] Primary Staff Physician Vascular Medicine 09/13/20 Samantha Hoskins MD [address] [facility] [address] [place] [address] Hematology/Oncology 05/27/23 Survey Researcher Relationship Specialty Start Date End Date Jenae Santamaria MD [address] [place] [address] PCP - General Internal Medicine 04/07/23 Cora Cardoso MD [address] [place] [address] Primary Staff Physician Vascular Medicine 09/13/20 Samantha Hoskins MD [address] [facility] [address] [place] [address] Hematology/Oncology 05/27/23 Team Status: Active Member Role Status Dates Dr. Garfield Chacon MD Emergency Provider Active Jenae Santamaria MD Primary Care Provider Active Dr. Luke Mims DO Admit Provider, Attending Pr ovid Active Team Status: Active Member Role Status Dates Jenae Santamaria MD Primary Care Provider Active Dr. Guilherme Burgess MD Attending Provider Active Team Status: Active Member Role Status Dates Dr. Garfield Chacon MD Emergency Provider Active Jenae Santamaria MD Primary Care Provider Active Dr. Luke Mims , Admit Provider, Other Provid er Active Dr. Gael Bourne MD Other Provider Active Dr. Willian Cook MD Attending Provider, Other Provid er Active Dr. Naman Lowe DO Other Provider Active Dr. Bo Damico MD Other Provider Active Dr. Caitie Huddleston MD Other Provider Active Dr. Fareed Hooker MD Other Provider Active Dr. Dione Hopkins MD Other Provider Active Dr. Mary Brown MD Other Provider Active Dr. Cr Burrows MD Other Provider Active Dr. Satnam Heck MD Other Provider Active Dr. Anthony Taylor MD Other Provider Active Dr. Mata Williamson MD Other Provider Active Dr. Kulwinder De La O , Other Provider Active Dr. Johnnie Logan MD Other Provider Active Marcy Muldrow Other Provider Active Liliane Gonzalez , [employer] Other Provider Active Team Status: Active Member Role Status Dates Dr. Garfield Chacon MD Emergency Provider Active Jenae Santamaria MD Primary Care Provider Active Dr. uLke Mims , DO Admit Provider, Other Provid er Active Dr. Gael Bourne MD Other Provider Active Dr. Willian Cook MD Other Provider Active Dr. Naman Lowe DO Other Provider Active Dr. Bo Damico MD Other Provider Active Dr. Caitie Huddleston MD Other Provider Active Dr. Fareed Hooker MD Other Provider Active Dr. Dione Hopkins MD Other Provider Active Dr. Mary Brown MD Other Provider Active Dr. Cr Burrows MD Other Provider Active Dr. Satnam Heck MD Other Provider Active Dr. Anthony Taylor MD Other Provider Active Dr. Mata Williamson MD Other Provider Active Dr. Kulwinder De La O DO Attending Provider, Other Provider Active Dr. Johnnie Logan MD Other Provider Active Marcy Muldrow Other Provider Active Lilianejayda Gonzalez , [employer] Other Provider Active Team Status: Active Member Role Status Dates Jenae Santamaria MD Primary Care Provider Active Dr. Sadiq Forte MD Attending Provider Active Team Status: Active Member Role Status Dates Dr. Garfield Chacon MD Emergency Provider Active Jenae Santamaria MD Primary Care Provider Active Dr. Luke Mims , Admit Provider, Other Provid er Active Dr. Gael Bourne MD Other Provider Active Dr. Willian Cook MD Other Provider Active Dr. Naman Lowe DO Other Provider Active Dr. Bo Damico MD Other Provider Active Dr. Caitie Huddleston MD Other Provider Active Dr. Fareed Hooker MD Other Provider Active Dr. Dione Hopkins MD Other Provider Active Dr. Mary Brown MD Other Provider Active Dr. Cr Burrows MD Other Provider Active Dr. Satnam Heck MD Other Provider Active Dr. Anthony Taylor MD Other Provider Active Dr. Mata Williamson MD Other Provider Active Dr. Kulwinder Mosteller , DO Attending Provider, Other Provider Active Dr. Johnnie Logan MD Other Provider Active Marcy Muldrow Other Provider Active Liliane McCuistion , [employer]STER-[employer] Other Provider Active Dr. Sadiq Forte MD Other Provider Active Dr. Guilherme Tellez MD Other Provider Active Team Status: Active Member Role Status Dates Dr. Garfield Chacon MD Emergency Provider Active Jenae Santamaria MD Primary Care Provider Active Dr. Luke Mims , DO Admit Provider, Other Provid er Active Dr. Kulwinder De La O , DO Other Provider Active Dr. Johnnie Logan MD Other Provider Active Marcy Muldrow Other Provider Active Liliane McCuistion , [employer] HARVESTER-C Other Provider Active Dr. Sadiq Forte MD Other Provider Active Dr. Guilherme Tellez MD Other Provider Active Dr. Willian Cook MD Attending Provider Active Team Status: Active Member Role Status Dr. Garfield Chacon MD Emergency Provider Active Jenae Santamaria MD Primary Care Provider Active Dr. Luke Mims , DO Admit Provider, Other Provid er Active Dr. Aníbal Vela , Attending Provider, Other Pro vider Active Dr. Kulwinder De La O , Other Provider Active Dr. Guilherme Tellez MD Other Provider Active Dr. Johnnie Logan MD Other Provider Active Marcy Muldrow Other Provider Active Liliane McCuistion , [employer] HAR[employer]STER-C Other Provider Active Team Status: Inactive Member Role Status Dates Dr. Garfield Chacon MD Emergency Provider Active Jenae Santamaria MD Primary Care Provider Active Dr. Luke Mims , DO Admit Provider, Other Provid er Active Dr. Aníbal Vela , Attending Provider Active Dr. Kulwinder De La O , Other Provider Active Dr. Guilherme Tellez MD Other Provider Active Dr. Johnnie Logan MD Other Provider Active Marcy Muldrow Other Provider Active Liliane McCuistion , [employer] HAR[employer]STER-C Other Provider Active Survey Researcher Relationship Specialty Start Date End Date Jenae Santamaria MD [address] [place] [address] PCP - General Internal Medicine 04/07/23 Cora Cardoso MD [address] [place] [address] Primary Staff Physician Vascular Medicine 09/13/20 Samantha Hoskins MD [address] [address] Hematology/Oncology 05/27/23 Survey Researcher Relationship Specialty Start Date End Date Jenae Santamaria MD [address] [place] [address] PCP - General Internal Medicine 04/07/23 Cora Cardoso MD [address] [place] [address] Primary Staff Physician Vascular Medicine 09/13/20 Samantha Hoskins MD [address] [address] Hematology/Oncology 05/27/23 Survey Researcher Relationship Specialty Start Date End Date Jenae Santamaria MD [address] [place] [address] PCP - General Internal Medicine 04/07/23 Cora Cardoso MD [address] [place] [address] Primary Staff Physician Vascular Medicine 09/13/20 Samantha Hoskins MD [address] [address] Hematology/Oncology 05/27/23 Survey Researcher Relationship Specialty Start Date End Date Jenae Santamaria MD [address] [place] [address] PCP - General Internal Medicine 04/07/23 Cora Cadroso MD [address] [place] [address] Primary Staff Physician Vascular Medicine 09/13/20 Samantha Hoskins MD [address] [address] Hematology/Oncology 05/27/23 Survey Researcher Relationship Specialty Start Date End Date Jenae Santamaria MD [address] [place] [address] PCP - General Internal Medicine 04/07/23 Cora Cardoso MD [address] [place] [address] Primary Staff Physician Vascular Medicine 09/13/20 Samantha Hoskins MD [address] [address] Hematology/Oncology 05/27/23 Survey Researcher Relationship Specialty Start Date End Date Jenae Santamaria MD [address] [place] [address] PCP - General Internal Medicine 04/07/23 Croa Cardoso MD [address] [place] [address] Primary Staff Physician Vascular Medicine 09/13/20 Samantha Hoskins MD [address] [facility] [address] [place] [address] Hematology/Oncology 05/27/23 Survey Researcher Relationship Specialty Start Date End Date Jenae Santamaria MD [address] [place] [address] PCP - General Internal Medicine 04/07/23 Cora Cardoso MD [address] [place] [address] Primary Staff Physician Vascular Medicine 09/13/20 Samantha Hoskins MD [address] [address] Hematology/Oncology 05/27/23 Survey Researcher Relationship Specialty Start Date End Date Jenae Santamaria MD [address] [place] [address] PCP - General Internal Medicine 04/07/23 Cora Cardoso MD [address] [place] [address] Primary Staff Physician Vascular Medicine 09/13/20 Samantha Hoskins MD [address] [address] Hematology/Oncology 05/27/23 Survey Researcher Relationship Specialty Start Date End Date Jenae Santamaria MD [address] [place] [address] PCP - General Internal Medicine 04/07/23 Cora Cardoso MD [address] [place] [address] Primary Staff Physician Vascular Medicine 09/13/20 Samantha Hoskins MD [address] [address] Hematology/Oncology 05/27/23 Survey Researcher Relationship Specialty Start Date End Date Jenae Santamaria MD [address] [place] [address] PCP - General Internal Medicine 04/07/23 Cora Cardoso MD [address] [place] [address] Primary Staff Physician Vascular Medicine 09/13/20 Samantha Hoskins MD [address] [facility] [address] [place] [address] Hematology/Oncology 05/27/23 Survey Researcher Relationship Specialty Start Date End Date Jenae Santamaria MD [address] [place] [address] PCP - General Internal Medicine 04/07/23 Cora Cardoso MD [address] [place] [address] Primary Staff Physician Vascular Medicine 09/13/20 Samantha Hoskins MD [address] [facility] [address] [place] [address] Hematology/Oncology 05/27/23 Survey Researcher Relationship Specialty Start Date End Date Jenae Santamaria MD [address] [place] [address] PCP - General Internal Medicine 04/07/23 Cora Cardoso MD [address] [place] [address] Primary Staff Physician Vascular Medicine 09/13/20 Samantha Hoskins MD [address] [facility] [address] [place] [address] Hematology/Oncology 05/27/23 Survey Researcher Relationship Specialty Start Date End Date Jenae Santamaria MD [address] [place] [address] PCP - General Internal Medicine 04/07/23 Cora Cardoso MD [address] [place] [address] Primary Staff Physician Vascular Medicine 09/13/20 Samantha Hoskins MD [address] [address] Hematology/Oncology 05/27/23 Survey Researcher Relationship Specialty Start Date End Date Jenae Santamaria MD [address] [place] [address] PCP - General Internal Medicine 04/07/23 Cora Cardoso MD [address] [place] [address] Primary Staff Physician Vascular Medicine 09/13/20 Samantha Hoskins MD [address] [address] Hematology/Oncology 05/27/23 Survey Researcher Relationship Specialty Start Date End Date Jenae Santamaria MD [address] [place] [address] PCP - General Internal Medicine 04/07/23 Cora Cardoso MD [address] [place] [address] Primary Staff Physician Vascular Medicine 09/13/20 Samantha Hoskins MD [address] [address] Hematology/Oncology 05/27/23 Survey Researcher Relationship Specialty Start Date End Date Jenae Santamaria MD [address] [place] [address] PCP - General Internal Medicine 04/07/23 Cora Cardoso MD [address] [place], [place] [address] Primary Staff Physician Vascular Medicine 09/13/20 Samantha Hoskins MD [address] [address] Hematology/Oncology 05/27/23 Survey Researcher Relationship Specialty Start Date End Date Jenae Santamaria MD [address] [place] [address] PCP - General Internal Medicine 04/07/23 Cora Cardoso MD [address] [place], [place] [address] Primary Staff Physician Vascular Medicine 09/13/20 Samantha Hoskins MD [address] [address] Hematology/Oncology 05/27/23 Survey Researcher Relationship Specialty Start Date End Date Jenae Santamaria MD [address] [place] [address] PCP - General Internal Medicine 04/07/23 Cora Cardoso MD [address] [place] [address] Primary Staff Physician Vascular Medicine 09/13/20 Samantha Hoskins MD [address] [address] Hematology/Oncology 05/27/23 Survey Researcher Relationship Specialty Start Date End Date Jenae Santamaria MD [address] [place] [address] PCP - General Internal Medicine 04/07/23 Cora Cardoso MD [address] [place] [address] Primary Staff Physician Vascular Medicine 09/13/20 Samantha Hoskins MD [address] [address] Hematology/Oncology 05/27/23 Gabriela Gan RN Primary Care Millwork Estimator 02/07/24 Survey Researcher Relationship Specialty Start Date End Date Jenae Santamaria MD [address] [place] [address] PCP - General Internal Medicine 04/07/23 Cora Cardoso MD [address] [place] [address] Primary Staff Physician Vascular Medicine 09/13/20 Samantha Hoskins MD [address] [address] Hematology/Oncology 05/27/23 Gabriela Gan RN Primary Care Millwork Estimator 02/07/24 Survey Researcher Relationship Specialty Start Date End Date Jenae Santamaria MD [address] [place] [address] PCP - General Internal Medicine 04/07/23 Cora Cardoso MD [address] [place] [address] Primary Staff Physician Vascular Medicine 09/13/20 Samantha Hoskins MD [address] [address] Hematology/Oncology 05/27/23 Gabriela Gan, LAQUITA Primary Care Millwork Estimator 02/07/24 Survey Researcher Relationship Specialty Start Date End Date Jenae Santamaria MD [address] [place] [address] PCP - General Internal Medicine 04/07/23 Cora Cardoso MD [address] [place] [address] Primary Staff Physician Vascular Medicine 09/13/20 Samantha Hoskins MD [address] [address] Hematology/Oncology 05/27/23 Gabriela Gan RN Primary Care Millwork Estimator 02/07/24 Survey Researcher Relationship Specialty Start Date End Date Jenae Santamaria MD [address] [place] [address] PCP - General Internal Medicine 04/07/23 Cora Cardoso MD [address] [place] [address] Primary Staff Physician Vascular Medicine 09/13/20 Samantha Hoskins MD [address] [address] Hematology/Oncology 05/27/23 Gabriela Gan, LAQUITA Primary Care Millwork Estimator 02/07/24 Survey Researcher Relationship Specialty Start Date End Date Jenae Santamaria MD [address] [place] [address] PCP - General Internal Medicine 04/07/23 Cora Cardoso MD [address] [place], [place] [address] Primary Staff Physician Vascular Medicine 09/13/20 Samantha Hoskins MD [address] [address] Hematology/Oncology 05/27/23 Gabriela Gan, LAQUITA Primary Care Millwork Estimator 02/07/24 03/06/24 Survey Researcher Relationship Specialty Start Date End Date Jenae Santamaria MD [address] [place] [address] PCP - General Internal Medicine 04/07/23 Cora Cardoso MD [address] [place] [address] Primary Staff Physician Vascular Medicine 09/13/20 Samantha Hoskins MD [address] [address] Hematology/Oncology 05/27/23 Survey Researcher Relationship Specialty Start Date End Date Jenae Santamaria MD [address] [place] [address] PCP - General Internal Medicine 04/07/23 Cora Cardoso MD [address] [place] [address] Primary Staff Physician Vascular Medicine 09/13/20 Samantha Hoskins MD [address] [address] Hematology/Oncology 05/27/23 Survey Researcher Relationship Specialty Start Date End Date Jenae Santamaria MD [address] [place] [address] PCP - General Internal Medicine 04/07/23 Cora Cardoso MD [address] [place] [address] Primary Staff Physician Vascular Medicine 09/13/20 Samantha Hoskins MD [address] [address] Hematology/Oncology 05/27/23 Survey Researcher Relationship Specialty Start Date End Date Jenae Santamaria MD [address] [place] [address] PCP - General Internal Medicine 04/07/23 Cora Cardoso MD [address] [place] [address] Primary Staff Physician Vascular Medicine 09/13/20 Samantha Hoskins MD [address] [address] Hematology/Oncology 05/27/23 Survey Researcher Relationship Specialty Start Date End Date Jenae Santamaria MD [address] [place] [address] PCP - General Internal Medicine 04/07/23 Cora Cardoso MD [address] [place] [address] Primary Staff Physician Vascular Medicine 09/13/20 Samantha Hoskins MD [address] [address] Hematology/Oncology 05/27/23 Survey Researcher Relationship Specialty Start Date End Date Jenae Santamaria MD [address] [place] [address] PCP - General Internal Medicine 04/07/23 Cora Cardoso MD [address] [place] [address] Primary Staff Physician Vascular Medicine 09/13/20 Samantha Hoskins MD [address] [address] Hematology/Oncology 05/27/23 Survey Researcher Relationship Specialty Start Date End Date Jenae Santamaria MD [address] [place] [address] PCP - General Internal Medicine 04/07/23 Cora Cardoso MD [address] [place] [address] Primary Staff Physician Vascular Medicine 09/13/20 Samantha Hoskins MD [address] [address] Hematology/Oncology 05/27/23 Survey Researcher Relationship Specialty Start Date End Date Jenae Santamaria MD [address] [place] [address] PCP - General Internal Medicine 04/07/23 Cora Cardoso MD [address] [place] [address] Primary Staff Physician Vascular Medicine 09/13/20 Samantha Hoskins MD [address] [place] [address] Hematology/Oncology 05/27/23 Survey Researcher Relationship Specialty Start Date End Date Jenae Santamaria MD [address] [place] [address] PCP - General Internal Medicine 04/07/23 Cora Cardoso MD [address] [place] [address] Primary Staff Physician Vascular Medicine 09/13/20 Samantha Hoskins MD [address] [place] [address] Hematology/Oncology 05/27/23 Team Status: Active Member Role Status Dates Jenae Santamaria MD Primary Care Provider Active Star t: July 01, 2024 Dr. Toni King DO Emergency Provider Active S tart: July 01, 2024 Dr. Kulwinder De La O , Admit Provider Active Start: July 01, 2024 Dr. Kulwinder De La O , Attending Provider Active Start: July 01, 2024 Survey Researcher Relationship Specialty Start Date End Date Jenae Santamaria MD [address] [place] [address] PCP - General Internal Medicine 04/07/23 Cora Cardoso MD [address] [place], [place] [address] Primary Staff Physician Vascular Medicine 09/13/20 Samantha Hoskins MD [address] [place] [address] Hematology/Oncology 05/27/23 Survey Researcher Relationship Specialty Start Date End Date Jenae Santamaria MD [address] [place] [address] PCP - General Internal Medicine 04/07/23 Cora Cardoso MD [address] [place], [place] [address] Primary Staff Physician Vascular Medicine 09/13/20 Samantha Hoskins MD [address] [place] [address] Hematology/Oncology 05/27/23 Survey Researcher Relationship Specialty Start Date End Date Jenae Santamaria MD [address] [place] [address] PCP - General Internal Medicine 04/07/23 Cora Cardoso MD [address] [place], [place] [address] Primary Staff Physician Vascular Medicine 09/13/20 Samantha Hoskins MD [address] [place] [address] Hematology/Oncology 05/27/23 Survey Researcher Relationship Specialty Start Date End Date Jenae Santamaria MD [address] [place] [address] PCP - General Internal Medicine 04/07/23 Cora Cardoso MD [address] [place], [place] [address] Primary Staff Physician Vascular Medicine 09/13/20 Samantha Hoskins MD [address] [place] [address] Hematology/Oncology 05/27/23 Kelsi Farmer, RN Primary Care Millwork Estimator 08/07/24 Survey Researcher Relationship Specialty Start Date End Date Jenae Santamaria MD [address] [place] [address] PCP - General Internal Medicine 04/07/23 Cora Cardoso MD [address] [place] [address] Primary Staff Physician Vascular Medicine 09/13/20 Samantha Hoskins MD [address] [place] [address] Hematology/Oncology 05/27/23 Kelsi Farmer, LAQUITA Primary Care Millwork Estimator 08/07/24 Team Status: Active Member Role Status Dates Jenae Santamaria MD Primary Care Provider Active Star t: July 06, 2024 Dr. Toni King , DO Emergency Provider Active S tart: July 06, 2024 Dr. Kulwinder De La O , DO Admit Provider Active Start: July 06, 2024 Dr. Kulwinder De La O , DO Other Provider Active Start: July 06, 2024 Dr. Efraín Thompson MD Attending Provider Active S tart: July 06, 2024 Dr. Efraín Thompson MD Other Provider Active Start : July 06, 2024 Dr. Ginger Espitia , DO Referring Provider Active S tart: July 06, 2024 Dr. Ginger Espitia , DO Other Provider Active Start : July 06, 2024 Team Status: Active Member Role Status Dates Jenae Santamaria MD Primary Care Provider Active Star t: July 10, 2024 Dr. Shari SLATER MD Attending Provider Active Start: July 10, 2024 Dr. Shari SLATER MD Referring Provider Active Start: July 10, 2024 Team Status: Inactive Member Role Status Dates John Michele MD Emergency Provider Active Star t: July 13, 2024 End: July 20, 2024 Dr. Shari Hurd MD Primary Care Provider Active Start: July 13, 2024 End: July 20, 2024 Dr. Kulwinder De La O DO Admit Provider Active Start: July 13, 2024 End: July 20, 2024 Dr. Kulwinder De La O DO Other Provider Active Start: July 13, 2024 End: July 20, 2024 Dr. Miguel Ortiz MD Attending Provider Active Start: July 13, 2024 End: July 20, 2024 Dr. Efraín Thompson MD Other Provider Active Start : July 13, 2024 End: July 20, 2024 Team Status: Active Member Role Status Dates John Michele MD Emergency Provider Active Star t: July 14, 2024 Dr. Shari Hurd MD Primary Care Provider Active Start: July 14, 2024 Dr. Kulwinder De La O DO Admit Provider Active Start: July 14, 2024 Dr. Kulwinder De La O DO Other Provider Active Start: July 14, 2024 Dr. Miguel Ortiz MD Attending Provider Active Start: July 14, 2024 Dr. Miguel Ortiz MD Other Provider Active Sta rt: July 14, 2024 Team Status: Active Member Role Status Jesse Michele MD Emergency Provider Active Star t: July 14, 2024 Dr. Shari Hurd MD Primary Care Provider Active Start: July 14, 2024 Dr. Kulwinder De La O DO Admit Provider Active Start: July 14, 2024 Dr. Kulwinder De La O DO Other Provider Active Start: July 14, 2024 Dr. Miguel Ortiz MD Referring Provider Active Start: July 14, 2024 Dr. Miguel Ortiz MD Other Provider Active Sta rt: July 14, 2024 Dr. David Ramos DO Attending Provider Active Start: July 14, 2024 Team Status: Active Member Role Status Jesse Michele MD Emergency Provider Active Star t: July 15, 2024 Dr. Shari Hurd MD Primary Care Provider Active Start: July 15, 2024 Dr. Kulwinder De La O DO Admit Provider Active Start: July 15, 2024 Dr. Kulwinder De La O DO Other Provider Active Start: July 15, 2024 Dr. Miguel Ortiz MD Referring Provider Active Start: July 15, 2024 Dr. Miguel Ortiz MD Other Provider Active Sta rt: July 15, 2024 Dr. Efraín Thompson MD Other Provider Active Start : July 15, 2024 MICHAEL Frost Attending Provider Active Star t: July 15, 2024 Team Status: Active Member Role Status Dates John Michele MD Emergency Provider Active Star t: July 15, 2024 Dr. Shari Hurd MD Primary Care Provider Active Start: July 15, 2024 Dr. Kulwinder De La O DO Admit Provider Active Start: July 15, 2024 Dr. Kulwinder De La O DO Other Provider Active Start: July 15, 2024 Dr. Miguel Ortiz MD Attending Provider Active Start: July 15, 2024 Dr. Miguel Ortiz MD Other Provider Active Sta rt: July 15, 2024 Dr. Efraín Thompson MD Other Provider Active Start : July 15, 2024 Team Status: Active Member Role Status Dates John Michele MD Emergency Provider Active Star t: July 16, 2024 Dr. Shari Hurd MD Primary Care Provider Active Start: July 16, 2024 Dr. Kulwinder De La O DO Admit Provider Active Start: July 16, 2024 Dr. Kulwinder De La O DO Other Provider Active Start: July 16, 2024 Dr. Miguel Ortiz MD Attending Provider Active Start: July 16, 2024 Dr. Miguel Ortiz MD Other Provider Active Sta rt: July 16, 2024 Dr. Efraín Thompson MD Other Provider Active Start : July 16, 2024 Team Status: Active Member Role Status Dates John Michele MD Emergency Provider Active Star t: July 17, 2024 Dr. Shari Hurd MD Primary Care Provider Active Start: July 17, 2024 Dr. Kulwinder De La O DO Admit Provider Active Start: July 17, 2024 Dr. Kulwinder De La O DO Other Provider Active Start: July 17, 2024 Dr. Miguel Ortiz MD Attending Provider Active Start: July 17, 2024 Dr. Miguel Ortiz MD Other Provider Active Sta rt: July 17, 2024 Dr. Efraín Thompson MD Other Provider Active Start : July 17, 2024 Team Status: Active Member Role Status Dates John Michele MD Emergency Provider Active Star t: July 17, 2024 Dr. Shari Hurd MD Primary Care Provider Active Start: July 17, 2024 Dr. Kulwinder De La O DO Admit Provider Active Start: July 17, 2024 Dr. Kulwinder De La O DO Other Provider Active Start: July 17, 2024 Dr. Miguel Ortiz MD Referring Provider Active Start: July 17, 2024 Dr. Miguel Ortiz MD Other Provider Active Sta rt: July 17, 2024 Dr. Efraín Thompson MD Other Provider Active Start : July 17, 2024 Dr. David Ramos DO Attending Provider Active Start: July 17, 2024 Team Status: Active Member Role Status Dates John Michele MD Emergency Provider Active Star t: July 18, 2024 Dr. Shari Hurd MD Primary Care Provider Active Start: July 18, 2024 Dr. Kulwinder De La O DO Admit Provider Active Start: July 18, 2024 Dr. Kulwinder De La O DO Other Provider Active Start: July 18, 2024 Dr. Miguel Ortiz MD Attending Provider Active Start: July 18, 2024 Dr. Miguel Ortiz MD Other Provider Active Sta rt: July 18, 2024 Dr. Efraín Thompson MD Other Provider Active Start : July 18, 2024 Team Status: Active Member Role Status Dates John Michele MD Emergency Provider Active Star t: July 19, 2024 Dr. Shari Hurd MD Primary Care Provider Active Start: July 19, 2024 Dr. Kulwinder De La O DO Admit Provider Active Start: July 19, 2024 Dr. Kulwinder De La O DO Other Provider Active Start: July 19, 2024 Dr. Miguel Ortiz MD Attending Provider Active Start: July 19, 2024 Dr. Miguel Ortiz MD Other Provider Active Sta rt: July 19, 2024 Dr. Efraín Thompson MD Other Provider Active Start : July 19, 2024 Team Status: Active Member Role Status Dates John Michele MD Emergency Provider Active Star t: July 20, 2024 Dr. Shari Hurd MD Primary Care Provider Active Start: July 20, 2024 Dr. Kulwinder De La O DO Admit Provider Active Start: July 20, 2024 Dr. Kulwinder De La O DO Other Provider Active Start: July 20, 2024 Dr. Miguel Ortiz MD Attending Provider Active Start: July 20, 2024 Dr. Miguel Ortiz MD Other Provider Active Sta rt: July 20, 2024 Dr. Efraín Thompson MD Other Provider Active Start : July 20, 2024 Team Status: Active Member Role Status Dates John Michele MD Emergency Provider Active Star t: July 20, 2024 Dr. Shari Hurd MD Primary Care Provider Active Start: July 20, 2024 Dr. Kulwinder De La O DO Admit Provider Active Start: July 20, 2024 Dr. Kulwinder De La O DO Other Provider Active Start: July 20, 2024 Dr. Miguel Ortiz MD Referring Provider Active Start: July 20, 2024 Dr. Miguel Ortiz MD Other Provider Active Sta rt: July 20, 2024 Dr. Efraín Thompson MD Other Provider Active Start : July 20, 2024 Dr. David Ramos DO Attending Provider Active Start: July 20, 2024 Team Status: Active Member Role Status Dates Dr. Shari Hurd MD Primary Care Provider Active Start: July 24, 2024 Dr. Shari SLATER MD Attending Provider Active Start: July 24, 2024 Team Status: Active Member Role Status Dates Dr. Shari Hurd MD Primary Care Provider Active Start: July 28, 2024 Dr. Shari SLATER MD Attending Provider Active Start: July 28, 2024 Team Status: Active Member Role Status Dates Dr. Shari Hurd MD Primary Care Provider Active Start: July 31, 2024 Dr. Shari SLATER MD Attending Provider Active Start: July 31, 2024 Team Status: Active Member Role Status Dates Dr. Shari Hurd MD Primary Care Provider Active Start: August 02, 2024 Dr. Shari SLATER MD Attending Provider Active Start: August 02, 2024 Team Status: Inactive Member Role Status Dates Dr. Shari Hurd MD Primary Care Provider Active Start: August 14, 2024 End: August 14, 2024 Dr. Shari Hurd MD Referring Provider Active Start: August 14, 2024 End: August 14, 2024 Dr. Efraín Thompson MD Attending Provider Active S tart: August 14, 2024 End: August 14, 2024 Survey Researcher Relationship Specialty Start Date End Date Jenae Santamaria MD [address] [place] [address] PCP - General Internal Medicine 04/07/23 Cora Cardoso MD [address] [place] [address] Primary Staff Physician Vascular Medicine 09/13/20 Samantha Hoskins MD [address] [place] [address] Hematology/Oncology 05/27/23 Kelsi Farmer, RN Primary Care Millwork Estimator 08/07/24 Survey Researcher Relationship Specialty Start Date End Date Jenae Santamaria MD [address] [place] [address] PCP - General Internal Medicine 04/07/23 Cora Cardoso MD [address] [place] [address] Primary Staff Physician Vascular Medicine 09/13/20 Samantha Hoskins MD [address] [place] [address] Hematology/Oncology 05/27/23 Kelsi Farmer, RN Primary Care Millwork Estimator 08/07/24 Survey Researcher Relationship Specialty Start Date End Date Jenae Santamaria MD [address] [place] [address] PCP - General Internal Medicine 04/07/23 Cora Cardoso MD [address] [place] [address] Primary Staff Physician Vascular Medicine 09/13/20 Samantha Hoskins MD [address] [place] [address] Hematology/Oncology 05/27/23 Kelsi Farmer RN Primary Care Millwork Estimator 08/07/24 Survey Researcher Relationship Specialty Start Date End Date Jenae Santamaria MD [address] [place] [address] PCP - General Internal Medicine 04/07/23 Cora Cardoso MD [address] [place] [address] Primary Staff Physician Vascular Medicine 09/13/20 Samantha Hoskins MD [address] [place] [address] Hematology/Oncology 05/27/23 Survey Researcher Relationship Specialty Start Date End Date Jenae Santamaria MD [address] [place] [address] PCP - General Internal Medicine 04/07/23 Cora Cardoso MD [address] [place] [address] Primary Staff Physician Vascular Medicine 09/13/20 Samantha Hoskins MD [address] [place] [address] Hematology/Oncology 05/27/23 Survey Researcher Relationship Specialty Start Date End Date Jenae Santamaria MD [address] [place] [address] PCP - General Internal Medicine 04/07/23 Cora Cardoso MD [address] [place] [address] Primary Staff Physician Vascular Medicine 09/13/20 Samantha Hoskins MD [address] [place] [address] Hematology/Oncology 05/27/23 Survey Researcher Relationship Specialty Start Date End Date Jenae Santamaria MD [address] [place] [address] PCP - General Internal Medicine 04/07/23 Cora Cardoso MD [address] [place] [address] Primary Staff Physician Vascular Medicine 09/13/20 Samantha Hoskins MD [address] [place] [address] Hematology/Oncology 05/27/23 Survey Researcher Relationship Specialty Start Date End Date Jenae Santamaria MD [address] [place] [address] PCP - General Internal Medicine 04/07/23 Cora Cardoso MD [address] [place] [address] Primary Staff Physician Vascular Medicine 09/13/20 Samantha Hoskins MD [address] [place] [address] Hematology/Oncology 05/27/23 Survey Researcher Relationship Specialty Start Date End Date Jenae Santamaria MD [address] [place] [address] PCP - General Internal Medicine 04/07/23 Cora Cardoso MD [address] [place], [place] [id number] Primary Staff Physician Vascular Medicine 09/13/20 Samantha Hoskins MD [address] [place] [id number] Hematology/Oncology 05/27/23 Kelsi Farmer, RN Primary Care Millwork Estimator 08/07/24 09/04/24 Team Status: Active Member Role/Relationship Status Dates Dr. Shari Hurd MD Primary Care Provider Active Team Status: Inactive Member Role/Relationship Status Dates Jenae Santamaria MD Primary Care Provider Active Star t: July 01, 2024 End: July 07, 2024 Dr. Toni King DO Emergency Provider Active S tart: July 01, 2024 End: July 07, 2024 Dr. Kulwinder De La O DO Admit Provider Active Start: July 01, 2024 End: July 07, 2024 Dr. Kulwinder De La O DO Other Provider Active Start: July 01, 2024 End: July 07, 2024 Dr. Efraín Thompson MD Other Provider Active Start : July 01, 2024 End: July 07, 2024 Dr. Ginger Espitia , Attending Provider Active S tart: July 01, 2024 End: July 07, 2024 Team Status: Active Member Role/Relationship Status Dates Jenae Santamaria MD Primary Care Provider Active Star t: July 01, 2024 Dr. Efraín Thompson MD Attending Provider Active S tart: July 01, 2024 Dr. Kulwinder De La O DO Referring Provider Active Start: July 01, 2024 Team Status: Active Member Role/Relationship Status Dates Jenae Santamaria MD Primary Care Provider Active Star t: July 02, 2024 Dr. Toni King DO Emergency Provider Active S tart: July 02, 2024 Dr. Kulwinder De La O DO Admit Provider Active Start: July 02, 2024 Dr. Kulwinder De La O DO Attending Provider Active Start: July 02, 2024 Dr. Kulwinder De La O DO Other Provider Active Start: July 02, 2024 Team Status: Active Member Role/Relationship Status Dates Jenae Santamaria MD Primary Care Provider Active Star t: July 03, 2024 Dr. Toni King DO Emergency Provider Active S tart: July 03, 2024 Dr. Kulwinder De La O DO Admit Provider Active Start: July 03, 2024 Dr. Kulwinder De La O , DO Attending Provider Active Start: July 03, 2024 Dr. Kulwinder De La O , DO Other Provider Active Start: July 03, 2024 Team Status: Active Member Role/Relationship Status Dates Jenae Santamaria MD Primary Care Provider Active Star t: July 03, 2024 Dr. Toni King , DO Emergency Provider Active S tart: July 03, 2024 Dr. Kulwinder De La O , DO Admit Provider Active Start: July 03, 2024 Dr. Kulwinder De La O , DO Referring Provider Active Start: July 03, 2024 Dr. Kulwinder De La O , DO Other Provider Active Start: July 03, 2024 Dr. Efraín Thompson MD Other Provider Active Start : July 03, 2024 Dr. David Ramos , DO Attending Provider Active Start: July 03, 2024 Team Status: Active Member Role/Relationship Status Dates Jenae Santamaria MD Primary Care Provider Active Star t: July 04, 2024 End: July 04, 2024 Dr. Oni Lundberg MD Attending Provider Active S tart: July 04, 2024 End: July 04, 2024 Dr. Oni Lundberg MD Referring Provider Active S tart: July 04, 2024 End: July 04, 2024 Team Status: Active Member Role/Relationship Status Dates Jenae Santamaria MD Primary Care Provider Active Star t: July 04, 2024 Dr. Toni King , DO Emergency Provider Active S tart: July 04, 2024 Dr. Kulwinder De La O , DO Admit Provider Active Start: July 04, 2024 Dr. Kulwinder De La O , DO Other Provider Active Start: July 04, 2024 Dr. Efraín Thompson MD Other Provider Active Start : July 04, 2024 Dr. Ginger Espitia , Referring Provider Active S tart: July 04, 2024 Dr. Ginger Espitia , DO Other Provider Active Start : July 04, 2024 MICHAEL Frost Attending Provider Active Star t: July 04, 2024 Team Status: Active Member Role/Relationship Status Dates Jenae Santamaria MD Primary Care Provider Active Star t: July 04, 2024 Dr. Toni King , DO Emergency Provider Active S tart: July 04, 2024 Dr. Kulwinder De La O , DO Admit Provider Active Start: July 04, 2024 Dr. Kulwinder De La O DO Referring Provider Active Start: July 04, 2024 Dr. Kulwinder De La O , DO Other Provider Active Start: July 04, 2024 Dr. Efraín Thompson MD Other Provider Active Start : July 04, 2024 Dr. Ginger Espitia , DO Other Provider Active Start : July 04, 2024 Dr. David Ramos , DO Attending Provider Active Start: July 04, 2024 Team Status: Active Member Role/Relationship Status Dates Jenae Santamaria MD Primary Care Provider Active Star t: July 04, 2024 Dr. Toni King , DO Emergency Provider Active S tart: July 04, 2024 Dr. Kulwinder De La O , DO Admit Provider Active Start: July 04, 2024 Dr. Kulwinder De La O , DO Other Provider Active Start: July 04, 2024 Dr. Efraín Thompson MD Other Provider Active Start : July 04, 2024 Dr. Ginger Espitia , DO Attending Provider Active S tart: July 04, 2024 Dr. Ginger Espitia , DO Other Provider Active Start : July 04, 2024 Team Status: Active Member Role/Relationship Status Dates Jenae Santamaria MD Primary Care Provider Active Star t: July 05, 2024 Dr. Toni King , DO Emergency Provider Active S tart: July 05, 2024 Dr. Kulwinder De La O , DO Admit Provider Active Start: July 05, 2024 Dr. Kulwinder De La O , DO Other Provider Active Start: July 05, 2024 Dr. Efraín Thompson MD Other Provider Active Start : July 05, 2024 Dr. Ginger Espitia , DO Attending Provider Active S tart: July 05, 2024 Dr. Ginger Espitia , DO Other Provider Active Start : July 05, 2024 Team Status: Active Member Role/Relationship Status Dates Jenae Santamaria MD Primary Care Provider Active Star t: July 05, 2024 Dr. Toni King , DO Emergency Provider Active S tart: July 05, 2024 Dr. Kulwinder De La O , DO Admit Provider Active Start: July 05, 2024 Dr. Kulwinder De La O , DO Other Provider Active Start: July 05, 2024 Dr. Efraín Thompson MD Other Provider Active Start : July 05, 2024 Dr. Ginger Espitia , DO Referring Provider Active S tart: July 05, 2024 Dr. Ginger Espitia , DO Other Provider Active Start : July 05, 2024 MICHAEL Frost Attending Provider Active Star t: July 05, 2024 Team Status: Active Member Role/Relationship Status Dates Jenae Santamaria MD Primary Care Provider Active Star t: July 05, 2024 Dr. Toni King , DO Emergency Provider Active S tart: July 05, 2024 Dr. Kulwinder De La O , DO Admit Provider Active Start: July 05, 2024 Dr. Kulwinder De La O , DO Other Provider Active Start: July 05, 2024 Dr. Efraín Thompson MD Other Provider Active Start : July 05, 2024 Dr. Ginger Espitia , DO Referring Provider Active S tart: July 05, 2024 Dr. Ginger Espitia , DO Other Provider Active Start : July 05, 2024 Dr. Daivd Ramos , DO Attending Provider Active Start: July 05, 2024 Team Status: Active Member Role/Relationship Status Dates Jenae Santamaria MD Primary Care Provider Active Star t: July 06, 2024 Dr. Toni King , DO Emergency Provider Active S tart: July 06, 2024 Dr. Kulwinder De La O , DO Admit Provider Active Start: July 06, 2024 Dr. Kulwinder De La O , DO Other Provider Active Start: July 06, 2024 Dr. Efraín Thompson MD Other Provider Active Start : July 06, 2024 Dr. Ginger Espitia , Attending Provider Active S tart: July 06, 2024 Dr. Ginger Espitia DO Other Provider Active Start : July 06, 2024 Team Status: Active Member Role/Relationship Status Dates Jenae Santamaria MD Primary Care Provider Active Star t: July 06, 2024 Dr. Toni King , DO Emergency Provider Active S tart: July 06, 2024 Dr. Kulwinder De La O DO Admit Provider Active Start: July 06, 2024 Dr. Kulwinder De La O , Other Provider Active Start: July 06, 2024 Dr. Efraín Thompson MD Attending Provider Active S tart: July 06, 2024 Dr. Efraín Thompson MD Other Provider Active Start : July 06, 2024 Dr. Ginger Espitia DO Referring Provider Active S tart: July 06, 2024 Dr. Ginger Espitia , DO Other Provider Active Start : July 06, 2024 Team Status: Active Member Role/Relationship Status Dates Jenae Santamaria MD Primary Care Provider Active Star t: July 07, 2024 Dr. Toni King , DO Emergency Provider Active S tart: July 07, 2024 Dr. Kulwinder De La O , DO Admit Provider Active Start: July 07, 2024 Dr. Kulwinder De La O , DO Other Provider Active Start: July 07, 2024 Dr. Efraín Thompson MD Other Provider Active Start : July 07, 2024 Dr. Ginger Espiita , Referring Provider Active S tart: July 07, 2024 Dr. Ginger Espitia , DO Other Provider Active Start : July 07, 2024 MICHAEL Frost Attending Provider Active Star t: July 07, 2024 Team Status: Active Member Role/Relationship Status Dates Jenae Santamaria MD Primary Care Provider Active Star t: July 07, 2024 Dr. Toni King , DO Emergency Provider Active S tart: July 07, 2024 Dr. Kulwinder De La O , Admit Provider Active Start: July 07, 2024 Dr. Kulwinder De La O , Other Provider Active Start: July 07, 2024 Dr. Efraín Thompson MD Other Provider Active Start : July 07, 2024 Dr. Ginger Espitia DO Attending Provider Active S tart: July 07, 2024 Dr. Ginger Espitia , DO Other Provider Active Start : July 07, 2024 Team Status: Active Member Role/Relationship Status Dates Jenae Santamaria MD Primary Care Provider Active Star t: July 10, 2024 Dr. Shari SLATER MD Attending Provider Active Start: July 10, 2024 Dr. Shari SLATER MD Referring Provider Active Start: July 10, 2024 Team Status: Inactive Member Role/Relationship Status Dates John Michele MD Emergency Provider Active Star t: July 13, 2024 End: July 20, 2024 Dr. Shari Hurd MD Primary Care Provider Active Start: July 13, 2024 End: July 20, 2024 Dr. Kulwinder De La O , Admit Provider Active Start: July 13, 2024 End: July 20, 2024 Dr. Kulwinder De La O , DO Other Provider Active Start: July 13, 2024 End: July 20, 2024 Dr. Miguel Ortiz MD Attending Provider Active Start: July 13, 2024 End: July 20, 2024 Dr. Efraín Thompson MD Other Provider Active Start : July 13, 2024 End: July 20, 2024 Team Status: Active Member Role/Relationship Status Dates John Michele MD Emergency Provider Active Star t: July 14, 2024 Dr. Shari Hurd MD Primary Care Provider Active Start: July 14, 2024 Dr. Kulwinder De La O DO Admit Provider Active Start: July 14, 2024 Dr. Kulwinder De La O DO Other Provider Active Start: July 14, 2024 Dr. Miguel Ortiz MD Attending Provider Active Start: July 14, 2024 Dr. Miguel Ortiz MD Other Provider Active Sta rt: July 14, 2024 Team Status: Active Member Role/Relationship Status Dates John Michele MD Emergency Provider Active Star t: July 14, 2024 Dr. Shari Hurd MD Primary Care Provider Active Start: July 14, 2024 Dr. Kulwinder De La O DO Admit Provider Active Start: July 14, 2024 Dr. Kulwinder De La O DO Other Provider Active Start: July 14, 2024 Dr. Miguel Ortiz MD Referring Provider Active Start: July 14, 2024 Dr. Miguel Ortiz MD Other Provider Active Sta rt: July 14, 2024 Dr. David Ramos DO Attending Provider Active Start: July 14, 2024 Team Status: Active Member Role/Relationship Status Dates John Michele MD Emergency Provider Active Star t: July 15, 2024 Dr. Shari Hurd MD Primary Care Provider Active Start: July 15, 2024 Dr. Kulwinder De La O DO Admit Provider Active Start: July 15, 2024 Dr. Kulwinder De La O DO Other Provider Active Start: July 15, 2024 Dr. Miguel Ortiz MD Referring Provider Active Start: July 15, 2024 Dr. Miguel Ortiz MD Other Provider Active Sta rt: July 15, 2024 Dr. Efraín Thompson MD Other Provider Active Start : July 15, 2024 MICHAEL Frost Attending Provider Active Star t: July 15, 2024 Team Status: Active Member Role/Relationship Status Dates John Michele MD Emergency Provider Active Star t: July 15, 2024 Dr. Shari Hurd MD Primary Care Provider Active Start: July 15, 2024 Dr. Kulwinder De La O DO Admit Provider Active Start: July 15, 2024 Dr. Kulwinder De La O DO Other Provider Active Start: July 15, 2024 Dr. Miguel Ortiz MD Attending Provider Active Start: July 15, 2024 Dr. Miguel Ortiz MD Other Provider Active Sta rt: July 15, 2024 Dr. Efraín Thompson MD Other Provider Active Start : July 15, 2024 Team Status: Active Member Role/Relationship Status Dates John Michele MD Emergency Provider Active Star t: July 16, 2024 Dr. Shari Hurd MD Primary Care Provider Active Start: July 16, 2024 Dr. Kulwinder De La O DO Admit Provider Active Start: July 16, 2024 Dr. Kulwinder De La O DO Other Provider Active Start: July 16, 2024 Dr. Miguel Ortiz MD Attending Provider Active Start: July 16, 2024 Dr. Miguel Ortiz MD Other Provider Active Sta rt: July 16, 2024 Dr. Efraín Thompson MD Other Provider Active Start : July 16, 2024 Team Status: Active Member Role/Relationship Status Dates John Michele MD Emergency Provider Active Star t: July 17, 2024 Dr. Shari Hurd MD Primary Care Provider Active Start: July 17, 2024 Dr. Kulwinder De La O DO Admit Provider Active Start: July 17, 2024 Dr. Kulwinder De La O DO Other Provider Active Start: July 17, 2024 Dr. Miguel Ortiz MD Attending Provider Active Start: July 17, 2024 Dr. Miguel Ortiz MD Other Provider Active Sta rt: July 17, 2024 Dr. Efraín Thompson MD Other Provider Active Start : July 17, 2024 Team Status: Active Member Role/Relationship Status Dates John Michele MD Emergency Provider Active Star t: July 17, 2024 Dr. Shari Hurd MD Primary Care Provider Active Start: July 17, 2024 Dr. Kulwinder De La O DO Admit Provider Active Start: July 17, 2024 Dr. Kulwinder De La O DO Other Provider Active Start: July 17, 2024 Dr. Miguel Ortiz MD Referring Provider Active Start: July 17, 2024 Dr. Miguel Ortiz MD Other Provider Active Sta rt: July 17, 2024 Dr. Efraín Thompson MD Other Provider Active Start : July 17, 2024 Dr. David Ramos DO Attending Provider Active Start: July 17, 2024 Team Status: Active Member Role/Relationship Status Dates John Michele MD Emergency Provider Active Star t: July 18, 2024 Dr. Shari Hurd MD Primary Care Provider Active Start: July 18, 2024 Dr. Kulwinder De La O DO Admit Provider Active Start: July 18, 2024 Dr. Kulwinder De La O DO Other Provider Active Start: July 18, 2024 Dr. Miguel Ortiz MD Attending Provider Active Start: July 18, 2024 Dr. Miguel Ortiz MD Other Provider Active Sta rt: July 18, 2024 Dr. Efraín Thompson MD Other Provider Active Start : July 18, 2024 Team Status: Active Member Role/Relationship Status Dates John Michele MD Emergency Provider Active Star t: July 19, 2024 Dr. Shari Hurd MD Primary Care Provider Active Start: July 19, 2024 Dr. Kulwnider De La O DO Admit Provider Active Start: July 19, 2024 Dr. Kulwinder De La O DO Other Provider Active Start: July 19, 2024 Dr. Miguel Ortiz MD Attending Provider Active Start: July 19, 2024 Dr. Miguel Ortiz MD Other Provider Active Sta rt: July 19, 2024 Dr. Efraín Thompson MD Other Provider Active Start : July 19, 2024 Team Status: Active Member Role/Relationship Status Dates John Michele MD Emergency Provider Active Star t: July 20, 2024 Dr. Shari Hurd MD Primary Care Provider Active Start: July 20, 2024 Dr. Kulwinder De La O DO Admit Provider Active Start: July 20, 2024 Dr. Kulwinder De La O DO Other Provider Active Start: July 20, 2024 Dr. Miguel Ortiz MD Attending Provider Active Start: July 20, 2024 Dr. Miguel Ortiz MD Other Provider Active Sta rt: July 20, 2024 Dr. Efraín Thompson MD Other Provider Active Start : July 20, 2024 Team Status: Active Member Role/Relationship Status Dates John Michele MD Emergency Provider Active Star t: July 20, 2024 Dr. Shari Hurd MD Primary Care Provider Active Start: July 20, 2024 Dr. Kulwinder De La O DO Admit Provider Active Start: July 20, 2024 Dr. Kulwinder De La O DO Other Provider Active Start: July 20, 2024 Dr. Miguel Ortiz MD Referring Provider Active Start: July 20, 2024 Dr. Miguel Ortiz MD Other Provider Active Sta rt: July 20, 2024 Dr. Efraín Thompson MD Other Provider Active Start : July 20, 2024 Dr. David Ramos DO Attending Provider Active Start: July 20, 2024 Team Status: Active Member Role/Relationship Status Dates Dr. Shari Hurd MD Primary Care Provider Active Start: July 24, 2024 Dr. Shari SLATER MD Attending Provider Active Start: July 24, 2024 Team Status: Active Member Role/Relationship Status Dates Dr. Shari Hurd MD Primary Care Provider Active Start: July 28, 2024 Dr. Shari SLATER MD Attending Provider Active Start: July 28, 2024 Team Status: Active Member Role/Relationship Status Dates Dr. Shari Hurd MD Primary Care Provider Active Start: July 31, 2024 Dr. Shari SLATER MD Attending Provider Active Start: July 31, 2024 Team Status: Active Member Role/Relationship Status Dates Dr. Shari Hurd MD Primary Care Provider Active Start: August 02, 2024 Dr. Shari SLATER MD Attending Provider Active Start: August 02, 2024 Team Status: Inactive Member Role/Relationship Status Dates Dr. Shari Hurd MD Primary Care Provider Active Start: August 14, 2024 End: August 14, 2024 Dr. Shari Hurd MD Referring Provider Active Start: August 14, 2024 End: August 14, 2024 Dr. Efraín Thompson MD Attending Provider Active S tart: August 14, 2024 End: August 14, 2024 Team Status: Inactive Member Role/Relationship Status Dates Dr. Shari Hurd MD Primary Care Provider Active Start: September 27, 2024 End: September 27, 2024 John Michele MD Emergency Provider Active Star t: September 27, 2024 End: September 27, 2024 Survey Researcher Relationship Specialty Start Date End Date Jenae Santamaria MD [address] [place] [address] PCP - General Internal Medicine 04/07/23 Cora Cardoso MD [address] [place] [address] Primary Staff Physician Vascular Medicine 09/13/20 Samantha Hoskins MD [address] [place] [id number] Hematology/Oncology 05/27/23 Survey Researcher Relationship Specialty Start Date End Date Jenae Santamaria MD [address] [place] [address] PCP - General Internal Medicine 04/07/23 Cora Cardoso MD [address] [place] [address] Primary Staff Physician Vascular Medicine 09/13/20 Samantha Hoskins MD [address] [place] [address] Hematology/Oncology 05/27/23 Survey Researcher Relationship Specialty Start Date End Date Jenae Santamaria MD [address] [place] [address] PCP - General Internal Medicine 04/07/23 Cora Cardoso MD [address] [place] [address] Primary Staff Physician Vascular Medicine 09/13/20 Samantha Hoskins MD [address] [place] [address] Hematology/Oncology 05/27/23 Team Status: Active Member Role/Relationship Status Dates Dr. Shari Hurd MD Primary care physician Active Team Status: Inactive Member Role/Relationship Status Dates Dr. Shari Hurd MD Primary care physician Active Start: September 27, 2024 End: September 27, 2024 John Michele MD Attending physician Active Sta rt: September 27, 2024 End: September 27, 2024 John Michele MD Emergency Department Physician Activ e Start: September 27, 2024 End: September 27, 2024 Team Status: Active Member Role/Relationship Status Dates Dr. Shari Hurd MD Primary care physician Active Start: October 31, 2024 Dr. Shari SLATER MD Attending physician Active Start: October 31, 2024 Dr. Shari SLATER MD Referring Provider Active Start: October 31, 2024 Team Status: Active Member Role/Relationship Status Dates Dr. Shari Hurd MD Primary care physician Active Start: November 07, 2024 Dr. Shari SLATER MD Attending physician Active Start: November 07, 2024 Dr. Shari SLATER MD Referring Provider Active Start: November 07, 2024 Team Status: Active Member Role/Relationship Status Dates Dr. Shari Hurd MD Primary care physician Active Start: November 14, 2024 Dr. Shari SLATER MD Attending physician Active Start: November 14, 2024 Team Status: Active Member Role/Relationship Status Dates Dr. Shari Hurd MD Primary care physician Active Start: November 21, 2024 Dr. Shari SLATER MD Attending physician Active Start: November 21, 2024 Team Status: Active Member Role/Relationship Status Dates Dr. Shari Hurd MD Primary care physician Active Start: December 12, 2024 Dr. Shari SLATER MD Attending physician Active Start: December 12, 2024 Team Status: Inactive Member Role/Relationship Status Dates Dr. Shari Hurd MD Primary care physician Active Start: December 26, 2024 End: December 26, 2024 Dr. Shari SLATER MD Attending physician Active Start: December 26, 2024 End: December 26, 2024 Team Status: Active Member Role/Relationship Status Dates Dr. Shari Hurd MD Primary care physician Active Start: January 02, 2025 Dr. Shari SLATER MD Attending physician Active Start: January 02, 2025 Administered Medications Administered Medications (un recognized section and content) Medication Order MAR Action Action Date Dose Rate Site tuberculin skin test (TST-PPD), purified protein derivative, intradermal Given 10/29/2020 0.1 mL tuberculin skin test (TST-PPD), purified protein derivative, intradermal Given 10/22/2020 0.1 mL tuberculin skin test, unspecified formulation Given 10/22/2020 0.1 ml tuberculin skin test, unspecified formulation Given 10/29/2020 0.1 ml Active Administered Medications - up to 3 most recent administrations Medication Order MAR Action Action Date Dose Rate Site PHENYLephrine 2.5 % 1 Drop (AK-DILATE, MONCHO-SYNEPHRINE) 1 Drop, BOTH EYES, DIRECTED, Starting on Wed05/14/23 at 1600, Until 05/15/23 at 0359, Administer for dilation PROTECT FROM LIGHT Given 05/14/2023 3:30 PM EST 1 Drop proparacaine 0.5 % 1 Drop (ALCAINE) 1 Drop, BOTH EYES, DIRECTED, Starting on Wed05/14/23 at 1600, Until 05/15/23 at 0359, Administer for pneumo tonometry, tonopen tonometry, or pachymetry. In the event of a proparacaine shortage, administer tetracaine 0.5% ophthalmic drops 1 drop in the left eye as directed for pneumo tonometry, tonopen tonometry, or pachymetry Given 05/14/2023 3:30 PM EST 1 Drop tropicamide 1 % 1 Drop (MYDRIACYL) 1 Drop, BOTH EYES, DIRECTED, Starting on Wed05/14/23 at 1600, Until 05/15/23 at 0359, Administer for dilation Given 05/14/2023 3:30 PM EST 1 Drop FOR RECORDS PERTAINING TO PATIENTS WHO ARE OR HAVE BEEN ENROLLED IN A CHEMICAL DEPENDENCY/SUBSTANCEABUSE PROGRAM, SOME INFORMATION MAY BE OMITTED. This clinical summary was aggregated from multiple sources. Caution should be exercised in using it in the provision of clinical care. This summary normalizes information from multiple sources, and as a consequence, information in this document may materially change the coding, format and clinical context of patient data. In addition, data may be omitted in some cases. CLINICAL DECISIONS SHOULD BE BASED ON THE PRIMARY CLINICAL RECORDS. [facility] provides no warranty or guarantee of the accuracy or completeness of information in this document.
[2025-01-30 08:43] LABS: Hematocrit 36.7 % (40-54); Hemoglobin 10.8 g/dL (13.0-16.5); Mean Corp Hgb Conc 29.4 g/dL (32-36); Mean Corpuscular Volume 90.6 fL (80-94); Mean Platelet Vol. 12.8 fl (6.2-12.0); Platelet Count 104 K/mm3 (150-450); RBC Distribution Width CV 18.2 % (11.6-14.6); RBC Distribution Width SD 59.8 fl (35.1-43.9); Red Blood Count 4.05 M/mm3 (4.6-6.2); White Blood Count 7.9 K/mm3 (4.4-11.0)
[2025-01-30 09:02] LABS: Anion Gap 14 (5-15); BUN 29 mg/dL (4-19); BUN/Creat Ratio 12.1 RATIO (10-20); Calcium,Total 9.2 mg/dL (7.6-11.0); Carbon Dioxide 26.7 mmol/L (21.0-32.0); Chloride 103 mmol/L (98-108); Glucose 65 mg/dL (70-99); Potassium 3.8 mmol/L (3.3-5.1)
== END ==
LOC: OLS.SW 05:00
PROVIDERS: PCP Internal Medicine; Visit Provider Internal Medicine
DX: J44.9 Chronic obstructive pulmonary disease, unspecified (principal); E11.9 Type 2 diabetes mellitus without complications
CPT/HCPCS: 36415; 80048; 85027